=== PATIENT | female | born 1940 | race Caucasian/White ===

== ENCOUNTER 2016-08-27 08:00 | Outpatient (CLI) | payer MEDICARE, BC | END 2016-08-27 08:01 | disposition home or self-care (01) | DX: R53.83 Other fatigue (principal) ==

== ENCOUNTER 2016-09-25 07:51 | Day surgery (SDC) | payer MEDICARE, BC ==
[2016-09-25] MEDS ORDERED: PHENYLEPHRINE 2.5% OPHTH 2 ML DROPS ONE (07:57)
[2016-09-25] MEDS ORDERED: LACTATED RINGERS 500 ML IV ONE (08:05)
[2016-09-25] MEDS ORDERED: PROPARACAINE 0.5% OPHTH DROPS 15 ML OPTH ONE ×2 (08:25→09:02)
[2016-09-25] MEDS ORDERED: PHENYLEPHRINE 2.5% OPHTH 2 ML DROPS OPTH ONE (08:25)
[2016-09-25] MEDS ORDERED: KETOROLAC 0.45% OPHTH DROPS OPTH ONE (08:25)
[2016-09-25] MEDS ORDERED: CYCLOPENTOLATE 1% OPHTH DROPS 2 ML OPTH ONE ×2 (08:25→09:02)
[2016-09-25] MEDS ORDERED: LACTATED RINGERS 1,000 ML IV ONE ×2 (08:29)
[2016-09-25] MEDS ORDERED: BRIMONIDINE 0.2% OPHTH DROPS 5 ML OPTH ONE (09:01)
[2016-09-25] MEDS ORDERED: EPINEPHrine 1 MG/ML AMP IVP ONE (09:01)
[2016-09-25] MEDS ORDERED: CHONDR SULF/HYALURONATE SYRINGE IO ONE (09:02)
[2016-09-25] MEDS ORDERED: TIMOLOL 0.5% OPHTH DROPS OPTH ONE (09:02)
[2016-09-25] MEDS ORDERED: TRIAMCIN/MOXIFLOX/VANCO 1 ML VIAL IO ONE ×2 (09:02)
[2016-09-25] MEDS ORDERED: BSS/LIDOCAINE/EPINEPHRINE 1 ML SYRINGE IO ONE ×2 (09:02)
[2016-09-25] MEDS ORDERED: MIDAZOLAM 2 MG/2 ML VIAL IVP ONE (09:06)
== END 2016-09-25 07:52 | disposition home or self-care (01) ==
PROC: 08RK3JZ Replacement of Left Lens with Synthetic Substitute, Percutaneous Approach (ICD-10-PCS; principal; 2016-09-25 09:00)
DX: H25.812 Combined forms of age-related cataract, left eye (principal); I10 Essential (primary) hypertension; E66.9 Obesity, unspecified; Z68.41 Body mass index [BMI] 40.0-44.9, adult; M19.90 Unspecified osteoarthritis, unspecified site; K21.9 Gastro-esophageal reflux disease without esophagitis; Z82.49 Family history of ischemic heart disease and other diseases of the circulatory system; Z83.3 Family history of diabetes mellitus; Z98.41 Cataract extraction status, right eye
CPT/HCPCS: 66984; A9270; J7120; V2632

== ENCOUNTER 2017-09-12 13:18 | Outpatient (CLI) | payer MEDICARE, BC ==
[2017-09-12] MEDS ORDERED: ALBUTEROL NEB 2.5 MG/3 ML INH ONE (14:00)
== END 2017-09-12 13:19 | disposition home or self-care (01) ==
LOC: RT 13:18
PROVIDERS: ATTEND Family Medicine
DX: J44.9 Chronic obstructive pulmonary disease, unspecified (principal)
CPT/HCPCS: 94060; J7613

== ENCOUNTER 2018-04-03 17:39 | Outpatient (CLI) | payer MEDICARE, BC | END 2018-04-03 17:40 | disposition critical access hospital (66) | LOC: EMS 17:39 | PROVIDERS: ATTEND Surgery | DX: M54.9 Dorsalgia, unspecified (principal) | CPT/HCPCS: A0425; A0429 ==

== ENCOUNTER 2018-04-03 17:57 | Inpatient (IN) | payer MEDICARE, BC ==
[2018-04-03] MEDS ORDERED: SODIUM CHLORIDE 0.9% 1,000 ML IV ONE ×2 (18:09→19:07)
[2018-04-03] MEDS ORDERED: MORPHINE 2 MG/ML CARPUJECT IVP STA (18:09)
--- NOTE | 2018-04-03 18:11 | ED Physician Documentation ---
History of Present Illness - Stated complaint Stated Complaint: GLF - Chief complaint Chief Complaint: General - History obtained from History obtained from: Patient, EMS - History of Present Illness Timing: Today (77-year-old woman with history of hypertension and fibromyalgia. She slipped and fell early this morning, 1 AM hurting her hip. She was unable to get back up and some neighbors came over and helped her up this morning. She watched TV for couple of hours and then when she got back up her hip spasmed and she fell again and laid on the floor for another several hours before a neighbor came over to check on her and then called 911. She could not get up because of the hip and back pain. She has no other injuries. She is not anticoagulated. She says she has not urinated since 1 AM) Review of Systems Ten Systems: 10 systems reviewed and negative Constitutional: denies: Fever, Chills Cardiac: denies: Chest pain / pressure, Palpitations Respiratory: denies: Dyspnea, Cough GI: denies: Abdominal Pain, Nausea, Vomiting : denies: Dysuria, Frequency Musculoskeletal: denies: Neck pain PD PAST MEDICAL HISTORY - Past Medical History Cardiovascular: Hypertension, High cholesterol Respiratory: Sleep apnea Endocrine/Autoimmune: None GI: GERD : Frequency HEENT: Chronic vision loss Psych: None Musculoskeletal: Osteoarthritis, Fibromyalgia, Chronic back pain, Other Derm: Rosacea - Past Surgical History General: Cholecystectomy, Appendectomy, Colonoscopy /[employer]: Hysterectomy, Oophrectomy, Other HEENT: Cataracts Derm: Skin cancer surgery - Present Medications Home Medications: Ambulatory Orders Medication Instructions Recorded Confirmed Calcium Citrate/Vitamin D3 1 ea PO DAILY 04/27/14 09/25/16 [Calcium Citrate - Vit D Caplet] Cetirizine HCl [Zyrtec] 10 mg PO DAILY PRN 04/27/14 09/25/16 Cyclobenzaprine [Flexeril] 10 mg PO TID PRN 04/27/14 09/25/16 Gluc HCl/Csa/Collagen/Hyalur A 1 each PO BID 04/27/14 09/25/16 [Glucosamine Chondroitin Cap] Losartan [Cozaar] 100 mg ORAL DAILY 04/27/14 09/25/16 Multivitamin [Multi Vitamin Daily] 1 each PO DAILY 04/27/14 09/25/16 Naproxen Sodium [Aleve] 220 mg PO DAILY PRN 04/27/14 09/25/16 Omeprazole 20 mg PO DAILY 04/27/14 09/25/16 Psyllium Seed [Metamucil] 425 gm PO DAILY PRN 04/27/14 09/25/16 Simvastatin [Zocor] 40 mg PO DAILY 04/27/14 09/25/16 Spironolactone 25 mg PO BID 04/27/14 09/25/16 Vitamin E 1,000 unit PO DAILY 04/27/14 09/25/16 Zolpidem [Ambien] 10 mg PO HS 04/27/14 09/25/16 Aspirin [Aspir-Low] 81 mg PO DAILY 09/25/16 09/25/16 DULoxetine [Cymbalta] 30 mg PO DAILY 09/25/16 09/25/16 Pregabalin [Lyrica] 50 mg PO TID 09/25/16 09/25/16 Furosemide [Lasix] 20 mg PO DAILY 04/03/18 04/03/18 - Allergies Allergies/Adverse Reactions: Allergies Allergy/AdvReac Type Severity Reaction Status Date / Time No Known Drug Allergies Allergy Verified 04/03/18 18:58 PD ED PE NORMAL - Vitals Vital signs reviewed: Yes - General General: Alert and oriented X 3, No acute distress - HEENT HEENT: PERRL, EOMI - Neck Neck: Supple, no meningeal sign, No bony TTP - Cardiac Cardiac: RRR, No murmur - Respiratory Respiratory: No respiratory distress, Clear bilaterally - Abdomen Abdomen: Normal bowel sounds, Soft, Non tender - Back Back: No CVA TTP, No spinal TTP - Extremities Extremities: Other (Right leg is noted to be longer than the left, but she says that is her baseline. She does have severe lateral and posterior right hip pain with manipulation of the right leg.) - Neuro Neuro: Alert and oriented X 3, Normal speech - Psych Psych: Normal mood, Normal affect Results - Vitals Vitals: Vital Signs - 24 hr 04/03/18 17:59 Temperature 36.3 C L Heart Rate 66 Respiratory 20 Rate Blood Pressure 155/56 H O2 Saturation 100 Oxygen O2 Source Room air - Labs Labs: Laboratory Tests 04/03/18 04/03/18 04/03/18 18:17 18:17 18:17 WBC 12.7 H RBC 4.74 Hgb 14.5 Hct 42.8 MCV 90.4 MCH 30.6 MCHC 33.9 RDW 14.5 Plt Count 233 MPV 10.0 Neut # (Auto) 10.5 H Lymph # (Auto) 1.0 L [place] # (Auto) 1.1 H Eos # (Auto) 0.0 Baso # (Auto) 0.0 Absolute Nucleated RBC 0.02 Nucleated RBC % 0.1 PT 11.3 INR 1.0 Sodium 134 L Potassium 5.4 H Chloride 101 Carbon Dioxide 23 Anion Gap 10.0 BUN 36 H Creatinine 1.6 H Estimated GFR (MDRD) 31 L Glucose 126 H Lactic Acid Calcium 9.9 Total Bilirubin 1.0 AST 56 H ALT 33 Alkaline Phosphatase 82 Total Creatine Kinase 2523 H* Total Protein 7.8 Albumin 3.9 Globulin 3.9 Albumin/Globulin Ratio 1.0 Lipase 30 04/03/18 18:17 WBC RBC Hgb Hct MCV MCH MCHC RDW Plt Count MPV Neut # (Auto) Lymph # (Auto) [place] # (Auto) Eos # (Auto) Baso # (Auto) Absolute Nucleated RBC Nucleated RBC % PT INR Sodium Potassium Chloride Carbon Dioxide Anion Gap BUN Creatinine Estimated GFR (MDRD) Glucose Lactic Acid 0.9 Calcium Total Bilirubin AST ALT Alkaline Phosphatase Total Creatine Kinase Total Protein Albumin Globulin Albumin/Globulin Ratio Lipase PD MEDICAL DECISION MAKING - ED course ED course: 77-year-old woman with fibromyalgia, hypertension, morbid obesity presents after 2 falls today. Her hip is injured but it does not seem obviously broken on exam and the x-ray is normal. She does have evidence of rhabdomyolysis and already mild acute renal insufficiency, her baseline creatinine is about 1. She is placed on IV fluids, initially a bolus of a liter and then twice maintenance and will be admitted for further evaluation and treatment. Spoke with Dr. Jolly for admission at 7:22 PM. - Sepsis Event Vital Signs: Vital Signs - 24 hr 04/03/18 17:59 Temperature 36.3 C L Heart Rate 66 Respiratory 20 Rate Blood Pressure 155/56 H O2 Saturation 100 Oxygen O2 Source Room air Departure - Departure Disposition: 66 [facility] DC/Xfer Clinical Impression: Rhabdomyolysis Qualifiers: Rhabdomyolysis type: non-traumatic Qualified Code(s): M62.82 - Rhabdomyolysis Contusion, hip Qualifiers: Encounter type: initial encounter Laterality: right Qualified Code(s): S70.01XA - Contusion of right hip, initial encounter Discharge Date/Time: 04/03/18 20:01
[2018-04-03 18:27] LABS: BASOPHILS % (AUTO) 0.3 %; EOSINOPHILS % (AUTO) 0.3 %; HGB - HEMOGLOBIN 14.5 g/dL (12.0-16.0); LYMPHOCYTES % (AUTO) 7.6 %; MEAN CORPUSCULAR HEMOGLOBIN 30.6 pg (27.0-31.0); MEAN CORPUSCULAR HGB CONC 33.9 g/dL (32.0-36.0); MEAN CORPUSCULAR VOLUME 90.4 fL (81.0-99.0); MONOCYTES # (AUTO) 1.1 10^3/uL (0.0-1.0); MONOCYTES % (AUTO) 8.6 %; NEUTROPHILS # (AUTO) 10.5 10^3/uL (1.5-6.6); NEUTROPHILS % (AUTO) 83.2 %; PLT - PLATELET COUNT 233 10^3/uL (130-450); RED BLOOD COUNT 4.74 10^6/uL (4.20-5.40); RED CELL DISTRIBUTION WIDTH 14.5 % (12.0-15.0); WHITE BLOOD COUNT 12.7 x10^3/uL (4.8-10.8)
[2018-04-03 18:33] LABS: PT - PROTHROMBIN TIME 11.3 secs (9.9-12.6)
[2018-04-03 19:02] LABS: ALBUMIN 3.9 g/dL (3.2-5.5); CALCIUM 9.9 mg/dL (8.5-10.3); CREATININE 1.6 mg/dL (0.4-1.0); TOTAL PROTEIN 7.8 g/dL (6.7-8.2)
--- NOTE | 2018-04-03 19:12 | XRAY Report ---
Reason: hip pain fall Procedure Date: 04/03/2018 Accession Number: [id number] / [id number] Procedure: XR - Hip w/Pelvis 2-3V RT CPT Code: FULL RESULT: EXAM: RIGHT HIP AND PELVIS RADIOGRAPHY EXAM DATE: 04/03/2018 06:52 PM. HISTORY: Hip pain fall. COMPARISONS: None. TECHNIQUE: 1 view of the pelvis and 1 view of the hip. FINDINGS: Mildly limited exam due to positioning. No acute fracture identified. No dislocation. Severe bilateral hip joint space narrowing with osteophyte formation. Sacroiliac joints are grossly unremarkable. IMPRESSION: No visualized fracture. Mildly limited exam. Severe hip joint osteoarthrosis. RADIA
[2018-04-03] MEDS ORDERED: SODIUM CHLORIDE FLUSH 0.9% 10 ML SYRINGE IVP PRN (19:32)
[2018-04-03 19:44] LABS: BILIRUBIN,URINE NEGATIVE (NEGATIVE); GLUCOSE, URINE (UA) NEGATIVE (NEGATIVE); KETONES,URINE (UA) TRACE mg/dL (NEGATIVE); LEUKOCYTE ESTERASE, URINE NEGATIVE (NEGATIVE); NITRITE,URINE NEGATIVE (NEGATIVE); OCCULT BLOOD,URINE NEGATIVE (NEGATIVE); PH,URINE 5.5 PH (5.0-7.5); PROTEIN,URINE NEGATIVE (NEGATIVE); UROBILINOGEN,URINE 0.2 (NORMAL) E.U./dL (NORMAL)
[2018-04-03 19:49] LABS: CLARITY,URINE CLEAR (CLEAR)
--- NOTE | 2018-04-03 22:30 | HISTORY & PHYSICAL EXAMINATION ---
DATE OF SERVICE: 04/03/2018 Physician: Mikala Jolly MD HISTORY OF PRESENT ILLNESS: This is a 77-year-old white female who has a history of obesity, hypertension, untreated sleep apnea, fibromyalgia on many pain medications, and elevated cholesterol history. The patient fell in her house at 1:00 in the morning while she was walking from bedroom to bathroom and was unable to get up for about 10 hours. She lay on her right hip. The neighbor who checks on her routinely, as well as feeds her dinner every day, found her 10 hours later and helped her get up to the couch, where she was able to watch TV for several hours. She got up again, and while walking using a cane she had "hip spasm." She fell backward this time and lay on the floor for another several hours before the neighbor again checked on her and this time called 911. The patient complained of pain in the right hip, which was x-rayed and has no areas of fracture. She does not have pain in the back of the head where she states she fell, but no imaging of the head and brain was done in the ER. The patient states she has not eaten anything all day and also has not urinated since 1 a.m. PAST MEDICAL HISTORY 1. Hypertension. 2. Hypercholesterolemia. 3. Sleep apnea, untreated. 4. GERD. 5. Osteoarthritis. 6. Fibromyalgia. 7. 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 ALLERGIES: NONE. MEDICATIONS 1. Lasix 20 mg daily. 2. Spironolactone 25 mg b.i.d. 3. Ambien 10 mg at bedtime. 4. Vitamin E 1000 units daily. 5. Zocor 40 mg daily. 6. Metamucil p.r.n. 7. Lyrica 50 mg t.i.d. 8. Naprosyn 220 mg daily p.r.n. pain. 9. Omeprazole 20 mg daily. 10. Multivitamin daily. 11. Cozaar 100 mg daily. 12. Glucosamine with chondroitin tablets b.i.d. 13. Cymbalta 30 mg daily. 14. Flexeril 10 mg t.i.d. p.r.n. pain. 15. Zyrtec 10 mg daily p.r.n. 16. Vitamins with calcium and vitamin D. 17. Baby aspirin daily. FAMILY HISTORY: Positive for diabetes in her brother, otherwise no inherited diseases. PAST SURGICAL HISTORY: Besides the right TMJ surgery, she also had breast cancer requiring only lymph node resection. SOCIAL HISTORY: The patient is a nonsmoker who never smoked, drinks no alcohol. She does use cannabis for pain control. She is able to drive a car. She uses a cane or quad walker to ambulate in the house and uses a scooter during shopping. She has a neighbor who makes her dinner every day and also helps clean her dogs and the house 3 times a week. REVIEW OF SYSTEMS: A comprehensive review of systems was performed, and the pertinent positives are listed. The rest are negative. PHYSICAL EXAMINATION GENERAL: Morbidly obese white female. Her lower lip is trembling. She is in no distress. VITAL SIGNS: Blood pressure 155/56, afebrile, respiratory rate 18, room air saturation 99%, heart rate 75 in sinus rhythm. HEENT: Reveals right upper eyelid lag and a tremor of the lower jaw. Oral mucosa is dry. NECK: Without JVD but is obese. CHEST: Clear at the anterior bases. She has large, pendulous breasts. HEART: Sounds are very distant. No murmur is heard. ABDOMEN: Distended with positive fluid wave. No organomegaly. Nontender. Normal bowel sounds. EXTREMITIES: Show 4+ edema to the hips. There is no ecchymosis at the right hip area. NEUROLOGIC: Intact except for that jaw tremor. LABORATORY DATA: Sodium 134, potassium 5.4, BUN 36, creatinine 1.6 (her baseline creatinine is 1.0). Lactic acid normal at 0.9. AST 56, ALT 33. CK 2523. Normal lipase. Normal INR. Normal urinalysis. White blood count 12.7, otherwise a normal CBC. DIAGNOSTIC STUDIES: Hip and pelvis x-rays were done that showed bilateral hip osteoarthritis and no fractures. There was no chest x-ray done. There was no head imaging done. There was no EKG done. ASSESSMENT/DIAGNOSES 1. Rhabdomyolysis. 2. Fall at home. 3. Acute kidney injury. 4. Morbid obesity. 5. Fibromyalgia and multiple pain medication use. 6. Hypertension. 7. Sleep apnea, which is untreated. 8. Suspect cor pulmonale secondary to untreated sleep apnea and morbid obesity. PLAN: Admit the patient. Begin IV hydration for the acute kidney injury and rhabdomyolysis and follow her potassium, renal function and CK daily. Continue with her pain medications. Hold the Lasix and spironolactone currently because of need for intravascular fluid treatment. Obtain an Echo to evaluate LV and especially RV contractility and obtain an EKG. X-ray the head and skull. Continue with narcotics as needed, especially for the hip pain and her other long-term pain medication use p.r.n. CODE STATUS: FULL CODE. DEEP VENOUS THROMBOSIS PROPHYLAXIS: PAULINE stockings and SCDs. ATTESTATION: The patient is expected to be discharged or transferred to another facility within 96 hours: Yes. TD: 04/03/2018 21:35 RONAN
[2018-04-03] MEDS: ATORVASTATIN 10 MG TABLET PO SCH (22:38)
[2018-04-03] MEDS: oxyCODONE 5 MG TABLET PO PRN (23:49)
--- NOTE | 2018-04-04 00:41 | CT Report ---
Reason: Fall on back of head Procedure Date: 04/03/2018 Accession Number: [id number] / [id number] Procedure: CT - Head W/O CPT Code: FULL RESULT: EXAM: CT HEAD EXAM DATE: 04/03/2018 10:26 PM. CLINICAL HISTORY: Fall on back of head. COMPARISON: None. TECHNIQUE: Multiaxial CT images were obtained from the foramen magnum to the vertex. Reformats: Sagittal and coronal. IV contrast: None. In accordance with CT protocol optimization, one or more of the following dose reduction techniques were utilized for this exam: automated exposure control, adjustment of mA and/or KV based on patient size, or use of iterative reconstructive technique. FINDINGS: Parenchyma: No intraparenchymal hemorrhage. No evidence of mass, midline shift, or CT findings of infarction. Valentin-white differentiation is distinct. Extraaxial Spaces: Normal for age. No subdural or epidural collections identified. Ventricles: Normal in size and position. Sinuses and Orbits: Imaged paranasal sinuses, orbits, and mastoids show no significant abnormality. Bones: No evidence of fracture or calvarial defect. Hyperostosis noted. Other: None. IMPRESSION: Negative head CT. RADIA
[2018-04-04] MEDS: SODIUM CHLORIDE 0.9% 1,000 ML IV SCH ×4 (02:07→17:23)
[2018-04-04] MEDS: SODIUM CHLORIDE FLUSH 0.9% 10 ML SYRINGE IVP SCH ×3 (02:08→17:24)
[2018-04-04] MEDS: oxyCODONE 5 MG TABLET PO PRN ×4 (05:05→23:43)
[2018-04-04 06:27] LABS: BASOPHILS % (AUTO) 0.3 %; EOSINOPHILS # (AUTO) 0.1 10^3/uL (0.0-0.7); EOSINOPHILS % (AUTO) 1.2 %; HGB - HEMOGLOBIN 12.8 g/dL (12.0-16.0); LYMPHOCYTES # (AUTO) 1.4 10^3/uL (1.5-3.5); LYMPHOCYTES % (AUTO) 14.4 %; MEAN CORPUSCULAR HEMOGLOBIN 30.3 pg (27.0-31.0); MEAN CORPUSCULAR HGB CONC 33.2 g/dL (32.0-36.0); MEAN CORPUSCULAR VOLUME 91.2 fL (81.0-99.0); MEAN PLATELET VOLUME 9.9 fL (7.9-10.8); MONOCYTES # (AUTO) 1.2 10^3/uL (0.0-1.0); MONOCYTES % (AUTO) 12.9 %; NEUTROPHILS # (AUTO) 6.9 10^3/uL (1.5-6.6); NEUTROPHILS % (AUTO) 71.2 %; PLT - PLATELET COUNT 203 10^3/uL (130-450); RED BLOOD COUNT 4.23 10^6/uL (4.20-5.40); RED CELL DISTRIBUTION WIDTH 14.5 % (12.0-15.0); WHITE BLOOD COUNT 9.7 x10^3/uL (4.8-10.8)
[2018-04-04 06:49] LABS: ALBUMIN 3.4 g/dL (3.2-5.5); BILIRUBIN,DIRECT 0.1 mg/dL (0.1-0.5); BILIRUBIN,TOTAL 1.2 mg/dL (0.2-1.0); CALCIUM 9.1 mg/dL (8.5-10.3); CREATININE 1.3 mg/dL (0.4-1.0); MAGNESIUM 1.9 mg/dL (1.7-2.8); TOTAL PROTEIN 6.2 g/dL (6.7-8.2)
[2018-04-04] MEDS: POLYETHYLENE GLYCOL 3350 17 GM PACKET PO SCH (08:31)
[2018-04-04] MEDS: DULoxetine 30 MG CAPSULE PO SCH (08:32)
[2018-04-04] MEDS: FAMOTIDINE 20 MG TABLET PO SCH (08:32)
[2018-04-04] MEDS: ASPIRIN EC 81 MG TABLET PO SCH (08:32)
[2018-04-04] MEDS ORDERED: MIN OIL/DIMETHICON/COCONUT OIL 92 GM TUBE TOP PRN (10:31)
[2018-04-04] MEDS ORDERED: ZINC OXIDE 20% OINT 28.35 GM TUBE TOP PRN (10:31)
--- NOTE | 2018-04-04 10:37 | PROVIDER PROGRESS NOTE ---
Assessment/Plan - Problem List (1) Rhabdomyolysis Qualifiers: Rhabdomyolysis type: non-traumatic Qualified Code(s): M62.82 - Rhabdomyolysis Assessment/Plan: CK lópez but creat improved. Will decrease iv rate. Monitor CK daily. (2) Fall at home Assessment/Plan: No new complaints of pain on current prn meds. PT to evaluate and start working wit patient today. (3) SARIKA (acute kidney injury) Assessment/Plan: Improved. Due to c/o slight cough, will decrease iv rate. (4) Abnormal EKG Assessment/Plan: Echo showed normal LV and RV function. Moderate pulmonary HTN present. (5) Anasarca Assessment/Plan: Moderate pulmonary HTN by Echo is likely due to untreated sleep apnea. Will decrease iv rate to prevent alot of fluid retention. Her diuretic will be restarted when CK normalizes. - Current Meds Current Meds: Current Medications Generic Name Dose Route Start Last Admin Trade Name Freq PRN Reason Stop Dose Admin Aspirin 81 mg 04/04/18 09:00 04/04/18 08:32 Ecotrin PO 81 mg DAILY TAI Administration Atorvastatin Calcium 20 mg 04/03/18 21:00 04/03/18 22:38 Lipitor PO 20 mg QPM TAI Administration Duloxetine HCl 30 mg 04/04/18 09:00 04/04/18 08:32 Cymbalta PO 30 mg DAILY TAI Administration Famotidine 20 mg 04/04/18 09:00 04/04/18 08:32 Pepcid PO 20 mg DAILY TAI Administration Oxycodone HCl 10 mg 04/03/18 19:32 04/04/18 05:05 Roxicodone PO 10 mg Q4HR PRN Administration Pain 8 to 10 Polyethylene Glycol 17 gm 04/04/18 09:00 04/04/18 08:31 Miralax PO 17 gm DAILY TAI Administration Sodium Chloride 10 ml 04/04/18 01:00 04/04/18 08:32 Normal Saline Flush 0.9% IVP Not Given 0100,0900,1700 TAI - Lab Result Fish Bone Diagrams: 04/04/18 06:05 04/04/18 06:05 - Additional Planning My Orders: My Active Orders 04/03/18 20:39 Echo Transthoracic w/Definity [ECHO] Routine 04/03/18 21:00 Atorvastatin [Lipitor] 20 mg PO QPM 04/03/18 22:23 Purewick [Female External Catheter Care] [RC] QSHIFT 04/04/18 09:00 Aspirin EC [Ecotrin] 81 mg PO DAILY DULoxetine [Cymbalta] 30 mg PO DAILY 04/04/18 10:31 Min Oil/Dimeth/Coconut Oil Crm [Cavilon] 1 applic TOP PRN PRN Zinc Oxide 20% Oint [Zinc Oxide] 1 applic TOP PRN PRN 04/04/18 10:33 Sodium Chloride 0.9% [Normal Saline 0.9%] 1,000 ml IV 100 mls/hr 04/05/18 05:00 BMP - BASIC METABOLIC PANEL [CHEM] DAILYLAB CBC - COMP BLD CT W/AUTO DIFF [HEME] DAILYLAB LIVER PANEL [CHEM] DAILYLAB 04/05/18 09:00 CK- CREATINE KINASE [CHEM] DAILY 04/06/18 05:00 BMP - BASIC METABOLIC PANEL [CHEM] DAILYLAB CBC - COMP BLD CT W/AUTO DIFF [HEME] DAILYLAB 04/06/18 09:00 CK- CREATINE KINASE [CHEM] DAILY Subjective - Subjective Patient Reports: Feeling Better, Resting Comfortably, Other (Sat in chair today. Has a slight cough.) Objective Vital Signs: Vital Signs - 24 hr 04/03/18 04/03/18 04/03/18 19:37 20:36 23:55 Temperature 35.8 C L 36.7 C Heart Rate 75 Heart Rate [ 73 77 Brachial] Respiratory 18 16 18 Rate Blood Pressure 159/65 H Blood Pressure 151/63 H 108/51 L [Left Brachial artery] O2 Saturation 99 100 100 04/04/18 08:00 Temperature 36.6 C Heart Rate Heart Rate [ 76 Brachial] Respiratory 18 Rate Blood Pressure Blood Pressure 139/49 H [Left Brachial artery] O2 Saturation 94 Oxygen O2 Source Room air I&O (Last 24 Hrs): Intake and Output Totals x24h 04/02/18 04/03/18 04/04/18 23:59 23:59 23:59 Intake Total 0858.240 9009.333 Output Total 1850 Balance 1591.667 -61.667 General: Alert, Oriented x3 HEENT: Mucous membr. moist/pink Neck: Supple Neuro: Non Focal, Other (Tremor of lower jaw.) Cardiovascular: Other (Distant heart sounds) Respiratory: No respiratory distress, Other (Distant breath sounds.) Abdomen: Other (Distended.) Extremities: Other (4+ edema to hips.) - Results Results: Laboratory Results WBC 9.7 x10^3/uL (4.8-10.8) 04/04/18 06:05 RBC 4.23 10^6/uL (4.20-5.40) 04/04/18 06:05 Hgb 12.8 g/dL (12.0-16.0) 04/04/18 06:05 Hct 38.5 % (37.0-47.0) 04/04/18 06:05 MCV 91.2 fL (81.0-99.0) 04/04/18 06:05 MCH 30.3 pg (27.0-31.0) 04/04/18 06:05 MCHC 33.2 g/dL (32.0-36.0) 04/04/18 06:05 RDW 14.5 % (12.0-15.0) 04/04/18 06:05 Plt Count 203 10^3/uL (130-450) 04/04/18 06:05 MPV 9.9 fL (7.9-10.8) 04/04/18 06:05 Neut # (Auto) 6.9 10^3/uL (1.5-6.6) H 04/04/18 06:05 Lymph # (Auto) 1.4 10^3/uL (1.5-3.5) L 04/04/18 06:05 [place] # (Auto) 1.2 10^3/uL (0.0-1.0) H 04/04/18 06:05 Eos # (Auto) 0.1 10^3/uL (0.0-0.7) 04/04/18 06:05 Baso # (Auto) 0.0 10^3/uL (0.0-0.1) 04/04/18 06:05 Absolute Nucleated RBC 0.00 x10^3/uL 04/04/18 06:05 Nucleated RBC % 0.0 /100WBC 04/04/18 06:05 PT 11.3 secs (9.9-12.6) 04/03/18 18:17 INR 1.0 (0.8-1.2) 04/03/18 18:17 Sodium 134 mmol/L (135-145) L 04/04/18 06:05 Potassium 5.0 mmol/L (3.5-5.0) 04/04/18 06:05 Chloride 105 mmol/L (101-111) 04/04/18 06:05 Carbon Dioxide 22 mmol/L (21-32) 04/04/18 06:05 Anion Gap 7.0 (6-13) 04/04/18 06:05 BUN 28 mg/dL (6-20) H 04/04/18 06:05 Creatinine 1.3 mg/dL (0.4-1.0) H 04/04/18 06:05 Estimated GFR (MDRD) 40 (>89) L 04/04/18 06:05 Glucose 108 mg/dL (70-100) H 04/04/18 06:05 Lactic Acid 0.9 mmol/L (0.5-2.2) 04/03/18 18:17 Calcium 9.1 mg/dL (8.5-10.3) 04/04/18 06:05 Magnesium 1.9 mg/dL (1.7-2.8) 04/04/18 06:05 Total Bilirubin 1.2 mg/dL (0.2-1.0) H 04/04/18 06:05 Direct Bilirubin 0.1 mg/dL (0.1-0.5) 04/04/18 06:05 AST 93 IU/L (10-42) H 04/04/18 06:05 ALT 48 IU/L (10-60) 04/04/18 06:05 Alkaline Phosphatase 64 IU/L (42-121) 04/04/18 06:05 Total Creatine Kinase 3335 IU/L (22-269) H* 04/04/18 09:03 Total Protein 6.2 g/dL (6.7-8.2) L 04/04/18 06:05 Albumin 3.4 g/dL (3.2-5.5) 04/04/18 06:05 Globulin 2.8 g/dL (2.1-4.2) 04/04/18 06:05 Albumin/Globulin Ratio 1.0 (1.0-2.2) 04/03/18 18:17 Lipase 30 U/L (22-51) 04/03/18 18:17 Urine Color YELLOW 04/03/18 19:32 Urine Clarity CLEAR (CLEAR) 04/03/18 19:32 Urine pH 5.5 PH (5.0-7.5) 04/03/18 19:32 Ur Specific [place] 1.015 (1.002-1.030) 04/03/18 19:32 Urine Protein NEGATIVE mg/dL (NEGATIVE) 04/03/18 19:32 Urine Glucose (UA) NEGATIVE mg/dL (NEGATIVE) 04/03/18 19:32 Urine Ketones TRACE mg/dL (NEGATIVE) 04/03/18 19:32 Urine Occult Blood NEGATIVE (NEGATIVE) 04/03/18 19:32 Urine Nitrite NEGATIVE (NEGATIVE) 04/03/18 19:32 Urine Bilirubin NEGATIVE (NEGATIVE) 04/03/18 19:32 Urine Urobilinogen 0.2 (NORMAL) E.U./dL (NORMAL) 04/03/18 19:32 Ur Leukocyte Esterase NEGATIVE (NEGATIVE) 04/03/18 19:32 Ur Microscopic Review NOT INDICATED 04/03/18 19:32 Urine Culture Comments NOT INDICATED 04/03/18 19:32 - Procedures Procedures: Procedures CATARAC PHACOEMULS/ASPIR (04/27/14) INSERT LENS AT CATAR EXT (04/27/14) REPLACEMENT OF LEFT LENS WITH SYNTH SUB, PERC APPROACH (09/25/16)
[2018-04-04] MEDS: ATORVASTATIN 10 MG TABLET PO SCH (20:46)
[2018-04-04] MEDS: NYSTATIN POWDER 15 GM TOP SCH ×2 (20:46→20:47)
[2018-04-05] MEDS: SODIUM CHLORIDE FLUSH 0.9% 10 ML SYRINGE IVP SCH ×3 (03:41→16:19)
[2018-04-05] MEDS: SODIUM CHLORIDE 0.9% 1,000 ML IV SCH (05:27)
[2018-04-05] MEDS: oxyCODONE 5 MG TABLET PO PRN (05:55)
[2018-04-05] MEDS: ONDANSETRON 4 MG/2 ML VIAL IVP PRN ×2 (06:25→13:40)
[2018-04-05 06:34] LABS: BASOPHILS % (AUTO) 0.2 %; EOSINOPHILS # (AUTO) 0.1 10^3/uL (0.0-0.7); EOSINOPHILS % (AUTO) 0.5 %; HGB - HEMOGLOBIN 13.5 g/dL (12.0-16.0); LYMPHOCYTES # (AUTO) 0.7 10^3/uL (1.5-3.5); LYMPHOCYTES % (AUTO) 7.2 %; MEAN CORPUSCULAR HEMOGLOBIN 30.8 pg (27.0-31.0); MEAN CORPUSCULAR HGB CONC 33.4 g/dL (32.0-36.0); MEAN PLATELET VOLUME 10.2 fL (7.9-10.8); MONOCYTES # (AUTO) 0.7 10^3/uL (0.0-1.0); MONOCYTES % (AUTO) 6.9 %; NEUTROPHILS # (AUTO) 8.4 10^3/uL (1.5-6.6); NEUTROPHILS % (AUTO) 85.2 %; PLT - PLATELET COUNT 192 10^3/uL (130-450); RED CELL DISTRIBUTION WIDTH 14.4 % (12.0-15.0); WHITE BLOOD COUNT 9.8 x10^3/uL (4.8-10.8)
[2018-04-05 06:49] LABS: ALBUMIN 3.2 g/dL (3.2-5.5); BILIRUBIN,DIRECT 0.1 mg/dL (0.1-0.5); BILIRUBIN,TOTAL 0.5 mg/dL (0.2-1.0); CALCIUM 9.3 mg/dL (8.5-10.3); CREATININE 1.1 mg/dL (0.4-1.0); TOTAL PROTEIN 6.6 g/dL (6.7-8.2)
[2018-04-05] MEDS: DOCUSATE SODIUM 250 MG CAPSULE PO SCH (08:53)
[2018-04-05] MEDS: DULoxetine 30 MG CAPSULE PO SCH (08:53)
[2018-04-05] MEDS: ASPIRIN EC 81 MG TABLET PO SCH (08:53)
[2018-04-05] MEDS: SENNA 8.6 MG TABLET PO SCH (08:53)
[2018-04-05] MEDS: FAMOTIDINE 20 MG TABLET PO SCH (08:53)
[2018-04-05] MEDS: NYSTATIN POWDER 15 GM TOP SCH ×2 (08:55→21:45)
[2018-04-05] MEDS: POLYETHYLENE GLYCOL 3350 17 GM PACKET PO SCH (08:55)
--- NOTE | 2018-04-05 15:50 | PROVIDER PROGRESS NOTE ---
Assessment/Plan - Problem List (1) Rhabdomyolysis Qualifiers: Rhabdomyolysis type: non-traumatic Qualified Code(s): M62.82 - Rhabdomyolysis Assessment/Plan: Imptoved CK to 1000's. Improved creat to 1.1 Will decrease iv fluid rate even further due to anasarca. (2) Fall at home Assessment/Plan: Pain in the R hip is controlled. (3) SARIKA (acute kidney injury) Assessment/Plan: Improving labs daily. iv rate to be decreased further today. Monitor BMP daily. (4) Anasarca Assessment/Plan: Pt reports compliance with her Spironolactone and Lasix at home. Will decrease iv fluid input. Possibly in a day, her Lasix and Spironolactone will be resumed, when renal function normalizes. She has untreated sleep apnea, which may be adding to the fluid retention from R heart failure. (5) Weakness Assessment/Plan: The patient is deconditioned. A picture of her daily activity (and diet) have emerged, after I met with her niece today, who is her closest next of kin. The patient is nearly all day in her recliner, except to use the toilet. She sleeps in the recliner. The neighbor brings her meals and hands them to her in her recliner, where she eats. A cleaning person picks up Franz hamburger wrappers that the patient throws under the recliner. She does not walk her 2 dogs, they are either let out in a fenced yard or relieve themselves in the house. Continue PT while here. She needs assessment for DCh to a safe environment. The information was shared with our [employer] Access[employer] Estimator, who will meet with the nieceJamia toady. - Current Meds Current Meds: Current Medications Generic Name Dose Route Start Last Admin Trade Name Freq PRN Reason Stop Dose Admin Aspirin 81 mg 04/04/18 09:00 04/05/18 08:53 Ecotrin PO 81 mg DAILY TAI Administration Atorvastatin Calcium 20 mg 04/03/18 21:00 04/04/18 20:46 Lipitor PO 20 mg QPM TAI Administration Docusate Sodium 250 - 500 mg 04/05/18 09:00 04/05/18 08:53 Colace 250mg Capsule PO 250 mg DAILY TAI Administration Duloxetine HCl 30 mg 04/04/18 09:00 04/05/18 08:53 Cymbalta PO 30 mg DAILY TAI Administration Famotidine 20 mg 04/04/18 09:00 04/05/18 08:53 Pepcid PO 20 mg DAILY TAI Administration Sodium Chloride 1,000 mls @ 100 mls/hr 04/04/18 10:33 04/05/18 06:59 Normal Saline 0.9% IV 100 mls/hr .Q10H TAI Infusion Nystatin 1 applic 04/04/18 20:00 04/05/18 08:55 Nystop TOP 1 applic BID TAI Administration Ondansetron HCl 4 mg 04/03/18 19:32 04/05/18 13:40 Zofran Inj IVP 4 mg Q6HR PRN Administration Nausea / Vomiting Oxycodone HCl 10 mg 04/03/18 19:32 04/05/18 05:55 Roxicodone PO 10 mg Q4HR PRN Administration Pain 8 to 10 Polyethylene Glycol 17 gm 04/04/18 09:00 04/05/18 08:55 Miralax PO 17 gm DAILY TAI Administration Senna 8.6 - 17.2 mg 04/05/18 09:00 04/05/18 08:53 Senokot PO 8.6 mg DAILY TAI Administration Sodium Chloride 10 ml 04/04/18 01:00 04/05/18 08:55 Normal Saline Flush 0.9% IVP 10 ml 0100,0900,1700 TAI Administration - Lab Result Fish Bone Diagrams: 04/05/18 05:45 04/05/18 05:45 - Additional Planning My Orders: My Active Orders 04/04/18 20:00 Nystatin [Nystop] 1 applic TOP BID 04/04/18 20:39 Echo Transthoracic w/Definity [ECHO] Routine 04/05/18 09:00 Docusate Sodium 250Mg Capsule [Colace 250Mg Capsule] 250 - 500 mg PO DAILY Senna [Senokot] 8.6 - 17.2 mg PO DAILY 04/06/18 05:00 BMP - BASIC METABOLIC PANEL [CHEM] DAILYLAB CBC - COMP BLD CT W/AUTO DIFF [HEME] DAILYLAB 04/06/18 09:00 CK- CREATINE KINASE [CHEM] DAILY Subjective - Subjective Patient Reports: Feeling Better, Resting Comfortably Nursing Reports: Other (Pt walked with PT in room with walker today.) Objective Vital Signs: Vital Signs - 24 hr 04/04/18 04/04/18 04/05/18 16:00 23:45 08:00 Temperature 36.6 C 36.3 C L 36.8 C Heart Rate [ 73 69 75 Brachial] Respiratory 20 18 18 Rate Blood Pressure 127/54 L [Left Brachial artery] Blood Pressure 134/55 H 133/60 H [Left Radial artery] O2 Saturation 97 96 96 Oxygen O2 Source [With Activity] Room air O2 Source Room air I&O (Last 24 Hrs): Intake and Output Totals x24h 04/03/18 04/04/18 04/05/18 23:59 23:59 23:59 Intake Total 3295.937 9580.333 1703.333 Output Total 3250 1400 Balance 7460.415 7819.333 303.333 General: Alert, Oriented x3 HEENT: Mucous membr. moist/pink Neck: Supple Neuro: Non Focal Cardiovascular: Other (distant heart sounds) Respiratory: Other (diminished breath sounds) Abdomen: Other (distended with fluid wave.) Rectal: Other (4+ edema to hips, less pitting though) - Results Results: Laboratory Results WBC 9.8 x10^3/uL (4.8-10.8) 04/05/18 05:45 RBC 4.40 10^6/uL (4.20-5.40) 04/05/18 05:45 Hgb 13.5 g/dL (12.0-16.0) 04/05/18 05:45 Hct 40.5 % (37.0-47.0) 04/05/18 05:45 MCV 92.0 fL (81.0-99.0) 04/05/18 05:45 MCH 30.8 pg (27.0-31.0) 04/05/18 05:45 MCHC 33.4 g/dL (32.0-36.0) 04/05/18 05:45 RDW 14.4 % (12.0-15.0) 04/05/18 05:45 Plt Count 192 10^3/uL (130-450) 04/05/18 05:45 MPV 10.2 fL (7.9-10.8) 04/05/18 05:45 Neut # (Auto) 8.4 10^3/uL (1.5-6.6) H 04/05/18 05:45 Lymph # (Auto) 0.7 10^3/uL (1.5-3.5) L 04/05/18 05:45 [place] # (Auto) 0.7 10^3/uL (0.0-1.0) 04/05/18 05:45 Eos # (Auto) 0.1 10^3/uL (0.0-0.7) 04/05/18 05:45 Baso # (Auto) 0.0 10^3/uL (0.0-0.1) 04/05/18 05:45 Absolute Nucleated RBC 0.00 x10^3/uL 04/05/18 05:45 Nucleated RBC % 0.0 /100WBC 04/05/18 05:45 PT 11.3 secs (9.9-12.6) 04/03/18 18:17 INR 1.0 (0.8-1.2) 04/03/18 18:17 Sodium 133 mmol/L (135-145) L 04/05/18 05:45 Potassium 4.3 mmol/L (3.5-5.0) 04/05/18 05:45 Chloride 104 mmol/L (101-111) 04/05/18 05:45 Carbon Dioxide 22 mmol/L (21-32) 04/05/18 05:45 Anion Gap 7.0 (6-13) 04/05/18 05:45 BUN 19 mg/dL (6-20) 04/05/18 05:45 Creatinine 1.1 mg/dL (0.4-1.0) H 04/05/18 05:45 Estimated GFR (MDRD) 48 (>89) L 04/05/18 05:45 Glucose 137 mg/dL (70-100) H 04/05/18 05:45 Lactic Acid 0.9 mmol/L (0.5-2.2) 04/03/18 18:17 Calcium 9.3 mg/dL (8.5-10.3) 04/05/18 05:45 Magnesium 1.9 mg/dL (1.7-2.8) 04/04/18 06:05 Total Bilirubin 0.5 mg/dL (0.2-1.0) 04/05/18 05:45 Direct Bilirubin 0.1 mg/dL (0.1-0.5) 04/05/18 05:45 AST 72 IU/L (10-42) H 04/05/18 05:45 ALT 51 IU/L (10-60) 04/05/18 05:45 Alkaline Phosphatase 73 IU/L (42-121) 04/05/18 05:45 Total Creatine Kinase 1500 IU/L (22-269) H* 04/05/18 05:45 Total Protein 6.6 g/dL (6.7-8.2) L 04/05/18 05:45 Albumin 3.2 g/dL (3.2-5.5) 04/05/18 05:45 Globulin 3.4 g/dL (2.1-4.2) 04/05/18 05:45 Albumin/Globulin Ratio 1.0 (1.0-2.2) 04/03/18 18:17 Lipase 30 U/L (22-51) 04/03/18 18:17 Urine Color YELLOW 04/03/18 19:32 Urine Clarity CLEAR (CLEAR) 04/03/18 19:32 Urine pH 5.5 PH (5.0-7.5) 04/03/18 19:32 Ur Specific [place] 1.015 (1.002-1.030) 04/03/18 19:32 Urine Protein NEGATIVE mg/dL (NEGATIVE) 04/03/18 19:32 Urine Glucose (UA) NEGATIVE mg/dL (NEGATIVE) 04/03/18 19:32 Urine Ketones TRACE mg/dL (NEGATIVE) 04/03/18 19:32 Urine Occult Blood NEGATIVE (NEGATIVE) 04/03/18 19:32 Urine Nitrite NEGATIVE (NEGATIVE) 04/03/18 19:32 Urine Bilirubin NEGATIVE (NEGATIVE) 04/03/18 19:32 Urine Urobilinogen 0.2 (NORMAL) E.U./dL (NORMAL) 04/03/18 19:32 Ur Leukocyte Esterase NEGATIVE (NEGATIVE) 04/03/18 19:32 Ur Microscopic Review NOT INDICATED 04/03/18 19:32 Urine Culture Comments NOT INDICATED 04/03/18 19:32 - Procedures Procedures: Procedures CATARAC PHACOEMULS/ASPIR (04/27/14) INSERT LENS AT CATAR EXT (04/27/14) REPLACEMENT OF LEFT LENS WITH SYNTH SUB, PERC APPROACH (09/25/16)
[2018-04-05] MEDS ORDERED: CALCIUM CITRATE 250 MG TABLET PO SCH (16:00)
[2018-04-05] MEDS ORDERED: CALCIUM CITRATE 500 MG PO SCH (16:15)
[2018-04-05] MEDS ORDERED: ALBUTEROL NEB 2.5 MG/3 ML INH PRN (16:18)
[2018-04-05] MEDS: PREGABALIN 25 MG CAPSULE PO SCH (21:45)
[2018-04-05] MEDS: ATORVASTATIN 10 MG TABLET PO SCH (21:45)
[2018-04-06] MEDS: SODIUM CHLORIDE FLUSH 0.9% 10 ML SYRINGE IVP SCH ×2 (00:32→14:17)
[2018-04-06] MEDS: ACETAMINOPHEN 325 MG TABLET PO PRN ×2 (00:32→16:02)
[2018-04-06 06:16] LABS: BASOPHILS # (AUTO) 0.1 10^3/uL (0.0-0.1); BASOPHILS % (AUTO) 0.6 %; EOSINOPHILS # (AUTO) 0.1 10^3/uL (0.0-0.7); EOSINOPHILS % (AUTO) 0.5 %; HGB - HEMOGLOBIN 13.1 g/dL (12.0-16.0); LYMPHOCYTES # (AUTO) 1.1 10^3/uL (1.5-3.5); MEAN CORPUSCULAR HEMOGLOBIN 30.9 pg (27.0-31.0); MEAN CORPUSCULAR HGB CONC 33.8 g/dL (32.0-36.0); MEAN CORPUSCULAR VOLUME 91.3 fL (81.0-99.0); MEAN PLATELET VOLUME 9.9 fL (7.9-10.8); MONOCYTES % (AUTO) 9.5 %; NEUTROPHILS # (AUTO) 8.5 10^3/uL (1.5-6.6); NEUTROPHILS % (AUTO) 79.4 %; PLT - PLATELET COUNT 203 10^3/uL (130-450); RED BLOOD COUNT 4.26 10^6/uL (4.20-5.40); RED CELL DISTRIBUTION WIDTH 14.5 % (12.0-15.0); WHITE BLOOD COUNT 10.7 x10^3/uL (4.8-10.8)
[2018-04-06 06:27] LABS: CALCIUM 9.2 mg/dL (8.5-10.3); CREATININE 1.2 mg/dL (0.4-1.0)
[2018-04-06] MEDS: PREGABALIN 25 MG CAPSULE PO SCH ×2 (06:54→14:20)
[2018-04-06] MEDS ORDERED: BISACODYL 10 MG SUPP PR SCH (07:30)
[2018-04-06] MEDS ORDERED: MULTIVITAMIN TABLET PO SCH (08:00)
[2018-04-06] MEDS: SENNA 8.6 MG TABLET PO SCH (08:08)
[2018-04-06] MEDS: DULoxetine 30 MG CAPSULE PO SCH (08:08)
[2018-04-06] MEDS: DOCUSATE SODIUM 250 MG CAPSULE PO SCH (08:09)
[2018-04-06] MEDS: ASPIRIN EC 81 MG TABLET PO SCH (08:10)
[2018-04-06] MEDS: FAMOTIDINE 20 MG TABLET PO SCH (08:10)
[2018-04-06] MEDS: POLYETHYLENE GLYCOL 3350 17 GM PACKET PO SCH (08:10)
[2018-04-06] MEDS: NYSTATIN POWDER 15 GM TOP SCH (08:11)
--- NOTE | 2018-04-06 10:50 | Discharge Plan ---
"Discharge Plan for SNF / [facility] - DC Plan and Transition Orders Disposition: 03 SNF DC/Xfer Condition: Good SNF Transition Orders: Admit to: [facility] under the care of Ruel Marte MD Discharge Diagnosis: 1. Rhabdomyolysis after fall at home 2. acute on chronic kidney failure 3. morbid obesity 4. weakness 5. HTN 6. chronic pain syndrome 7. beth intertrigo 8. HTN 9. Hyperlipidemia 10. Stage 1 decub of sacrum at top of buttock crack Medicare Certification: I certify that [facility] is medically necessary on a continuing basis for any of the conditions for which she/he is receiving care during hospitalization. Notify PCP of admission and forward orders to primary provider for signature. Weight on admission and weekly. Call PCP immediately if weight increases by 5 pounds or if patient develops dyspnea, chest pain/tightness or edema. House Bowel Program: yes If no BM after 2 days, nurse may give M.O.M. 30ml PO PRN and /or ducolax Supp 1 ID and /or BRITTANY 250mg P.O., and/or senna 1-2 tabs PO. On day 3 nurse may give repeat above order until residents constipation is resolved. Immunizations: Annual Influenza Vaccine: yes. (between Apr 03 and October 31.) Unless allergy or already given Two-Step PPD: yes per [facility] [id number] or appropriate documentation of approved exceptions Treatments & Other Orders: change body position frequently for pressure relief and to prevent decub Duoderm to sacral Stage 1 decub. Oxygen Orders: prn nasal canula O2 for O2 sat <90%. Keep sat at 90-92%. Lab Tests or X-Rays Orders: BMP in 1 week Orthopedic Orders: none. Medications: PLEASE REFER TO THE DISCHARGE MEDICATION LIST. Insulin Orders? no Diagnosis: Diabetes Initiate hypo and hyperglycemia protocols for BG <70 and BG >375. May check BG prn for signs/symptoms of dysglycemia. Frequency of BG checks: [AC/Meal/HS] Basal Insulin: Lantus 100 units / ml inject subq as follows: Other: Correction Insulin: - Select the type of insulin below [Choose: Novolog/Humalog]100 units /ml insulin inject subq per orders indicate below [] LOW DOSE [] MODERATE DOSE [] MODERATE/HIGH DOSE [] HIGH DOSE GB UNITS GB UNITS GB UNITS GB UNITS 61-140 0 UNITS 61-140 0 UNITS 61-140 0 UNITS 61-140 0 UNITS 141-175 1 UNITS 141-175 1 UNITS 141-175 2 UNITS 141-175 3 UNITS 176-225 2 UNITS 176-225 3 UNITS 176-225 4 UNITS 176-225 5 UNITS 226-275 3 UNITS 226-275 5 UNITS 226-275 6 UNITS 226-275 7 UNITS 276-325 4 UNITS 276-325 7 UNITS 276-325 8 UNITS 276-325 9 UNITS 326-375 5 UNITS 326-375 9 UNITS 326-375 10 UNITS 326-375 11 UNITS >375 CONTACT MD >375 CONTACT MD >375 CONTACT MD >375 CONTACT MD Custom Dosing: [Choose: None/Novolog/Humalog] 100 units/ml Insulin inject subq as follows: GB Units 61-140 [] Units 141-175 [] Units 176-225 [] Units 226-275 [] Units 276-325 []Units 326-375 [] Units >375 Contact MD Allergies and Adverse Reactions: Allergies Allergy/AdvReac Type Severity Reaction Status Date / Time No Known Drug Allergies Allergy Verified 04/03/18 18:58 - Medications New Prescriptions: Nystatin [Nystop] 1 applic TOP BID #1 bottle - Diet Type: No added salt Texture: Regular Liquids: Thin May have monthly special meal: Yes - Therapies | Activity Therapy: Evaluation | Treat if indicated: PT, OT Rehabilitation Potential: Maximize functional status, Return to independent living Activity: Activity as Tolerated Weight Bearing: Full Weight Assistance Devices: Wheelchair, Walker"
[2018-04-06] MEDS ORDERED: MAGNESIUM CITRATE 296 ML BOTTLE PO ONE (10:51)
[2018-04-06 16:29] VITALS: BP 149/63
--- NOTE | 2018-04-15 04:03 | DISCHARGE SUMMARY ---
Physician: Bren Morales MD DATE OF ADMISSION: 04/03/2018 DATE OF DISCHARGE: 04/06/2018 DISCHARGE DIAGNOSES 1. Rhabdomyolysis. 2. Fall in own home. 3. Acute kidney injury. 4. Generalized edema. 5. Generalized weakness. 6. Stacy intertrigo. 7. Hypertension. 8. Decubitus ulcer, stage I, sacrum at top of buttock crack. DISCHARGE MEDICATIONS 1. Aspirin 81 mg a day. 2. Zyrtec 10 mg a day. 3. Glucosamine with chondroitin 1 tab p.o. b.i.d. 4. Multivitamin daily. 5. Omeprazole 20 mg p.o. daily. 6. Coenzyme Q10 10 mg a day. 7. Ambien 10 mg a day. 8. Proventil HFA 2 puffs every 4 hours as needed for asthma. 9. Calcium citrate 500 mg every 2 days. 10. Flexeril 10 mg p.o. t.i.d. 11. Colace 100 mg p.o. b.i.d. 12. Cymbalta 30 mg daily. 13. Lasix 20 mg daily. 14. Cozaar 100 mg daily. 15. Nystop to Stacy intertrigo on body b.i.d. 16. Lyrica 75 mg p.o. t.i.d. 17. Simvastatin 40 mg p.o. q.p.m. 18. Spironolactone 25 mg p.o. b.i.d. PRINCIPAL PROCEDURES 1. Echocardiogram with left ventricle size normal. Ejection fraction 60% to 65% without regional wa ll motion abnormalities. Right and left atrial index volumes are normal. Right ventricular systolic pressure at rest 42 mmHg. 2. Hip, pelvis x-ray limited due to positioning. No acute fracture identified. No dislocation. Se constantino bilateral hip joint space narrowing with osteophyte formation. Sacroiliac joints grossly unrema rkable. 3. Head CT negative for acute intracranial bleeding, infarct, midline shift. HOSPITAL COURSE: The patient is a 77-year-old, morbidly obese female with weight 134 kg and at 5 fee t 3 inches tall. She lives in her own home, has a history of hypertension, untreated sleep apnea, fi bromyalgia, and hyperlipidemia. She fell at 1 in the morning while she was walking from the bedroom to the bathroom, and unable to get up. She lie on the floor for 10 hours. She lie on her right hip. She has a neighbor who checks on her as a routine, as well as feeds her dinner every day. The amry hbor found her 10 hours later and helped her get up to the couch, where she was watching TV for sever al hours. She got up and then tried to walk again using a cane and had severe right hip spasm, and f ell backwards this time, and lie on the floor for another several hours before the neighbor again dion cked on her and found her on the floor. With the second time, 911 was called. She has pain in the r ight hip. X-rays negative for fracture. She has no pain in the back of the head where she fell. Im aging study was negative. She says that she has not eaten anything all day long and she has not urin ated since 1 in the morning. She was admitted as rhabdomyolysis and acute kidney injury. BUN on admission was 36. At discharge, it was 22. Creatinine on admission was 1.6, at discharge 1.2. CK on admission was 2523. The next d ay it went up to 3335. At discharge, she is 1044. She was on a downward trend. Her main problem wa s that of constipation, but she was eating 50% to 100% of her meals, and drinking fluids. Her one ma in problem on the day of discharge was constipation. It is a chronic problem for her at home, and molly flores had not had a bowel movement in several days. As such, she received mag citrate, and it was expect ed that she would have a bowel movement later on in the day. She did not want enemas. Social Servic advised a care conference team, that the patient may be a hoarder and possible APS referral case, which would be looked at through their department. Stacy intertrigo was treated with nystatin cremaria m. Decubitus ulcer was seen by the wound nurse through the [facility]. Blood pressure remained cont rolled in the 130s over 70s systolic. Greater than 30 minutes was spent coordinating discharge. On the day of discharge, the patient was a lert, oriented, relatively immobile and needing 2-person assist to be able to sit up. PHYSICAL EXAMINATION VITAL SIGNS: Temperature was 36.7, pulse was 74, blood pressure 149/63, respirations 20 and unlabore d, 96% on room air. NECK: Assessed for suppleness and there was no rigidity. However, unable to be assessed for JVD bec ause of short stature and thickness of neck. LUNGS: She had diminished breath sounds at the bases, but was otherwise clear. No crackles, rhonchi or wheezing. No increased respiratory effort with talking to me. HEART: PMI was not able to be palpated, and she had a regular rate and rhythm. SKIN: Stacy intertrigo underneath the breast pannus and stomach pannus was being treated by [facility] in. EXTREMITIES: Legs are large, ruborous, some evidence of venous stasis microsoft exchange administrator the distal tib-fib skin area. The most she was able to do were chair exercises. She did arm and ankle pumps, knee ext ension, and hip flexion in the chair. It is hoped that she will increase her strength and then be able to sit on her own, then stand. She was transferred to a long-term facility via wheelchair van using a wide wheelchair. Greater than 30 minutes was spent coordinating discharge. She is asked to follow up with her primary care provider, Dr. Marte, when she gets out of the long-term facility. TD: 04/14/2018 23:49
== END 2018-04-06 17:12 | DRG 558 ==
LOC: EDUNIT# → ED 17:57 → MS2 19:32
PROVIDERS: ADMIT Internal Medicine; ATTEND Specialist
DX: M62.82 Rhabdomyolysis (principal); S70.01XA Contusion of right hip, initial encounter; N17.9 Acute kidney failure, unspecified; N28.9 Disorder of kidney and ureter, unspecified; I10 Essential (primary) hypertension; Z68.41 Body mass index [BMI] 40.0-44.9, adult; G89.29 Other chronic pain; M54.9 Dorsalgia, unspecified; M25.551 Pain in right hip; W01.0XXA Fall on same level from slipping, tripping and stumbling without subsequent striking against object, initial encounter; Y92.008 Other place in unspecified non-institutional (private) residence as the place of occurrence of the external cause; R60.1 Generalized edema; B37.2 Candidiasis of skin and nail; I12.9 Hypertensive chronic kidney disease with stage 1 through stage 4 chronic kidney disease, or unspecified chronic kidney disease; N18.9 Chronic kidney disease, unspecified; L89.151 Pressure ulcer of sacral region, stage 1; E66.01 Morbid (severe) obesity due to excess calories; I27.20 Pulmonary hypertension, unspecified; G47.30 Sleep apnea, unspecified; M79.7 Fibromyalgia; G89.4 Chronic pain syndrome; K59.09 Other constipation; M16.0 Bilateral primary osteoarthritis of hip; E78.5 Hyperlipidemia, unspecified; I87.8 Other specified disorders of veins; K21.9 Gastro-esophageal reflux disease without esophagitis; R25.1 Tremor, unspecified; S04.51 Injury of facial nerve, right side; Y83.8 Other surgical procedures as the cause of abnormal reaction of the patient, or of later complication, without mention of misadventure at the time of the procedure; Z79.82 Long term (current) use of aspirin; Z79.899 Other long term (current) drug therapy; Z85.3 Personal history of malignant neoplasm of breast; Z91.81 History of falling
CPT/HCPCS: 36415; 70450; 80048; 80053; 80076; 81001; 81003; 82550; 83605; 83690; 83735; 85025; 85610; 87086; 93005; 93306; 96361; 96374; 99284; 99285

== ENCOUNTER 2018-04-21 16:24 | Outpatient (CLI) | payer MEDICARE, BC ==
[2018-04-21 19:36] LABS: CALCIUM 9.5 mg/dL (8.5-10.3); CREATININE 0.9 mg/dL (0.4-1.0)
== END 2018-04-21 16:25 | disposition home or self-care (01) ==
LOC: LAB.R 16:24
DX: R79.89 Other specified abnormal findings of blood chemistry (principal)
CPT/HCPCS: 80048

== ENCOUNTER 2018-05-10 14:04 | Outpatient (CLI) | payer MEDICARE, BC ==
[2018-05-10 19:25] LABS: ALBUMIN 4.2 g/dL (3.2-5.5); ALBUMIN/GLOBULIN RATIO 1.1 (1.0-2.2); ALKALINE PHOSPHATASE 93 IU/L (42-121); ALT ALANINE AMINOTRANSFERASE 19 IU/L (10-60); AST ASPARTATE AMINOTRANSFERASE 20 IU/L (10-42); BILIRUBIN,TOTAL 0.8 mg/dL (0.2-1.0); BUN - BLOOD UREA NITROGEN 23 mg/dL (6-20); CALCIUM 10.6 mg/dL (8.5-10.3); CARBON DIOXIDE - CO2 27 mmol/L (21-32); CHLORIDE 98 mmol/L (101-111); CHOL/HDL RATIO 3.6 (<4.4); CHOLESTEROL 164 mg/dL; CREATININE 1.2 mg/dL (0.4-1.0); GFR - MDRD 44 (>89); GLUCOSE 109 mg/dL (70-100); HDL CHOLESTEROL 46 mg/dL; LDL CHOLESTEROL,CALCULATED 88 mg/dL; LDL/HDL RATIO 1.9 (<4.4); SODIUM 137 mmol/L (135-145); TOTAL PROTEIN 8.2 g/dL (6.7-8.2); VLDL CHOLESTEROL 30 mg/dL
[2018-05-10 21:01] LABS: HB2 TOTAL 16.3 g/dL; HEMOGLOBIN A1C 0.58 g/dL; HEMOGLOBIN A1C % 5.4 % (4.6-6.2)
== END 2018-05-10 14:05 | disposition home or self-care (01) ==
LOC: LAB.WCP 14:04
PROVIDERS: ATTEND Family Medicine
DX: M79.7 Fibromyalgia (principal); I10 Essential (primary) hypertension; J44.9 Chronic obstructive pulmonary disease, unspecified; J98.4 Other disorders of lung; R73.01 Impaired fasting glucose
CPT/HCPCS: 36415; 80053; 80061; 83036; 83721

== ENCOUNTER 2018-07-14 13:43 | Outpatient (CLI) | payer MEDICARE, BC ==
[2018-07-14 20:01] LABS: BASOPHILS # (AUTO) 0.1 10^3/uL (0.0-0.1); BASOPHILS % (AUTO) 0.8 %; EOSINOPHILS # (AUTO) 0.1 10^3/uL (0.0-0.7); EOSINOPHILS % (AUTO) 1.5 %; HGB - HEMOGLOBIN 15.5 g/dL (12.0-16.0); LYMPHOCYTES % (AUTO) 10.8 %; MEAN CORPUSCULAR HEMOGLOBIN 30.2 pg (27.0-31.0); MEAN CORPUSCULAR HGB CONC 32.4 g/dL (32.0-36.0); MEAN CORPUSCULAR VOLUME 93.1 fL (81.0-99.0); MEAN PLATELET VOLUME 10.7 fL (7.9-10.8); MONOCYTES # (AUTO) 1.1 10^3/uL (0.0-1.0); MONOCYTES % (AUTO) 11.3 %; NEUTROPHILS # (AUTO) 7.2 10^3/uL (1.5-6.6); NEUTROPHILS % (AUTO) 75.6 %; PLT - PLATELET COUNT 291 10^3/uL (130-450); RED BLOOD COUNT 5.12 10^6/uL (4.20-5.40); RED CELL DISTRIBUTION WIDTH 14.1 % (12.0-15.0); WHITE BLOOD COUNT 9.5 x10^3/uL (4.8-10.8)
[2018-07-14 20:10] LABS: ALBUMIN 4.3 g/dL (3.2-5.5); ALKALINE PHOSPHATASE 110 IU/L (42-121); ALT ALANINE AMINOTRANSFERASE 18 IU/L (10-60); AST ASPARTATE AMINOTRANSFERASE 20 IU/L (10-42); BILIRUBIN,TOTAL 0.5 mg/dL (0.2-1.0); BUN - BLOOD UREA NITROGEN 49 mg/dL (6-20); CALCIUM 10.1 mg/dL (8.5-10.3); CARBON DIOXIDE - CO2 23 mmol/L (21-32); CHLORIDE 98 mmol/L (101-111); CREATININE 1.6 mg/dL (0.4-1.0); GFR - MDRD 31 (>89); GLUCOSE 110 mg/dL (70-100); SODIUM 133 mmol/L (135-145); TOTAL PROTEIN 8.5 g/dL (6.7-8.2)
== END 2018-07-14 23:59 | disposition home or self-care (01) ==
LOC: LAB.WCP 13:43
PROVIDERS: ATTEND Family Medicine
DX: R29.898 Other symptoms and signs involving the musculoskeletal system (principal); I10 Essential (primary) hypertension; R60.9 Edema, unspecified
CPT/HCPCS: 36415; 80053; 84443; 85025

== ENCOUNTER 2018-07-20 10:58 | Outpatient (CLI) | payer MEDICARE, BC ==
--- NOTE | 2018-07-20 17:19 | CT Report ---
Reason: RESTRICTIVE LUNG DISEASE,DYSPNEA ON EXERTION Procedure Date: 07/20/2018 Accession Number: [id number] / [id number] Procedure: CT - Chest W/O CPT Code: FULL RESULT: EXAM: CT CHEST EXAM DATE: 07/20/2018 11:18 AM. CLINICAL HISTORY: RESTRICTIVE LUNG Disease, dyspnea ON EXERTION. COMPARISONS: None. TECHNIQUE: Routine helical CT imaging was performed through the chest. IV contrast: None. Reconstructions: Coronal and sagittal. In accordance with CT protocol optimization, one or more of the following dose reduction techniques were utilized for this exam: automated exposure control, adjustment of mA and/or KV based on patient size, or use of iterative reconstructive technique. FINDINGS: Lungs/Pleura: There are scattered 2-3 mm pulmonary nodules and/or reticulonodular opacities in the lower lungs, at least 6 of which are present in the right middle lobe seen best on MIP images (reference images 41 through 45). No bronchial thickening, consolidation, or edema. No evidence of fibrosis. . No pericardial or pleural effusion. No pneumothorax. Mediastinum: Normal. No adenopathy or masses. The heart and great vessels are normal. Bones: Degenerative changes of the thoracic spine commensurate with age. Visualized Abdomen: Prior cholecystectomy with mild pneumobilia in the left biliary system. 11 mm nonspecific hypodensity medial left lobe of liver series 3 image 52. Density measurement 12.5 HU could indicate cyst. Other: None. IMPRESSION: 1. No specific pulmonary findings to explain shortness of breath. 2. Nonspecific tiny pulmonary nodules as described of uncertain but doubtful significance. Recommend follow-up per Fleischner criteria with no imaging recommended for low risk individuals versus optional twelve-month follow-up for high-risk individuals. 3. Nonspecific hypodensity left lobe of liver as described, possibly a cyst. If visible by US, cyst can likely be confirmed. If not visible by US, more definitive imaging could be performed with dedicated contrast-enhanced CT scan or liver MRI. [facility]
== END 2018-07-20 10:59 | disposition home or self-care (01) ==
LOC: DI 10:58
PROVIDERS: ATTEND Family Medicine
DX: J98.4 Other disorders of lung (principal); R06.09 Other forms of dyspnea; R91.8 Other nonspecific abnormal finding of lung field; I08.0 Rheumatic disorders of both mitral and aortic valves
CPT/HCPCS: 71250; 93306

== ENCOUNTER 2018-08-20 07:42 | Outpatient (CLI) | payer MEDICARE, BC ==
--- NOTE | 2018-08-20 14:51 | Ultrasound Report ---
Reason: HEPATIC CYST Procedure Date: 08/20/2018 Accession Number: [id number] / [id number] Procedure: US - Abdomen Limited CPT Code: FULL RESULT: EXAM: ABDOMEN ULTRASOUND LIMITED, RUQ EXAM DATE: 08/20/2018 08:18 AM. CLINICAL HISTORY: HEPATIC CYST. COMPARISON: 09/27/2013 abdomen ultrasound. 7 mm cyst noted in the left lobe of the liver on this study. Chest CT 07/20/2018 TECHNIQUE: Real-time scanning was performed with static images obtained. FINDINGS: Liver: Increased both in size and echotexture. 17.2 cm. Main portal vein flow: Hepatopetal. Left lobe cyst 1.3 x 1 x 1.2 cm similar in size to the chest CT of 07/20/2018 and slightly increased in size since the ultrasound of 09/27/2013 Gallbladder: Post cholecystectomy. Biliary System: CBD measures 5.1 mm. No intrahepatic or extrahepatic ductal dilatation. Other: None. IMPRESSION: 1. Hepatomegaly with fatty infiltration of the liver. 2. Left hepatic lobe cyst slightly increased in size compared to the prior ultrasound of 09/27/2013. No solid masses. 3. Status post cholecystectomy. [facility]
== END 2018-08-20 07:43 | disposition home or self-care (01) ==
LOC: DI 07:42
PROVIDERS: ATTEND Family Medicine
DX: K76.89 Other specified diseases of liver (principal); K76.0 Fatty (change of) liver, not elsewhere classified; Z90.49 Acquired absence of other specified parts of digestive tract
CPT/HCPCS: 76705

== ENCOUNTER 2018-10-22 13:32 | Emergency (ER) | payer MEDICARE, BC ==
--- NOTE | 2018-10-22 15:06 | ED Physician Documentation ---
History of Present Illness - Stated complaint Stated Complaint: R HIP PAIN/GLF - Chief complaint Chief Complaint: Trauma Ch/Bk - Additonal information Additional information: 77-year-old female Presents to the emergency department for evaluation of hip pain after falling several days ago at home. The patient fell in the middle the night. The patient usually uses a walker. The patient denies this being a syncopal episode. The patient denies any chest pain or palpitations before or after the fall. The patient denies dizziness before or after the fall. The patient denies any head injury. The patient reports ongoing pain in her hip. The patient does have some arthritis in that hip. No other associated symptoms. Symptoms are described as moderate. The patient has been ambulatory with her walker. Review of Systems Constitutional: denies: Fever, Fatigue Eyes: denies: Discharge Ears: denies: Ear pain Nose: denies: Congestion Throat: denies: Sore throat Cardiac: denies: Chest pain / pressure Respiratory: denies: Dyspnea GI: denies: Abdominal Pain : denies: Dysuria Skin: denies: Laceration (s) Musculoskeletal: reports: Extremity pain, Joint pain. 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, Oophrectomy, Other HEENT: Cataracts Derm: Skin cancer surgery - Present Medications Home Medications: Ambulatory Orders Medication Instructions Recorded Confirmed Cetirizine HCl [Zyrtec] 10 mg PO DAILY PRN 04/27/14 04/04/18 Gluc HCl/Csa/Collagen/Hyalur A 1 each PO BID 04/27/14 04/04/18 [Glucosamine Chondroitin Cap] Multivitamin [Multi-Vitamin Daily] 1 each PO DAILY 04/27/14 04/04/18 Omeprazole 20 mg PO QDAC 04/27/14 04/04/18 Zolpidem [Ambien] 10 mg PO QPM PRN 04/27/14 04/04/18 Aspirin [Aspir-Low] 81 mg PO DAILY 09/25/16 04/04/18 Ubidecarenone [Coenzyme Q-10] 10 mg PO DAILY 04/04/18 04/04/18 Albuterol Sulfate [Proventil Hfa 2 puffs INH Q4H PRN #0 04/06/18 04/04/18 Inhaler] Calcium Citrate 500 mg PO Q2D #0 04/06/18 04/04/18 Cyclobenzaprine [Flexeril] 10 mg PO TID PRN #0 04/06/18 04/04/18 DULoxetine [Cymbalta] 30 mg PO DAILY #0 04/06/18 04/04/18 Docusate Sodium 100 mg PO BID #0 04/06/18 04/04/18 Furosemide [Lasix] 20 mg PO DAILY #0 04/06/18 04/04/18 Losartan [Cozaar] 100 mg ORAL DAILY #0 04/06/18 04/04/18 Nystatin [Nystop] 1 applic TOP BID #1 bottle 04/06/18 Pregabalin [Lyrica] 75 mg PO TID #0 04/06/18 04/04/18 Psyllium Husk [Metamucil] 2.08 gm PO DAILY #0 04/06/18 04/04/18 Simvastatin [Zocor] 40 mg PO QPM #0 04/06/18 04/04/18 Spironolactone 25 mg PO BID #0 04/06/18 04/04/18 - Allergies Allergies/Adverse Reactions: Allergies Allergy/AdvReac Type Severity Reaction Status Date / Time No Known Drug Allergies Allergy Verified 10/22/18 13:40 - Social History Does the pt smoke?: No Smoking Status: Never smoker Does the pt drink ETOH?: No Does the pt have substance abuse?: Yes - Immunizations Immunizations are current?: Yes PD ED PE NORMAL - General General: Alert and oriented X 3, No acute distress - HEENT HEENT: Atraumatic, PERRL, EOMI, Ears normal - Neck Neck: Supple, no meningeal sign - Cardiac Cardiac: RRR, Strong equal pulses - Respiratory Respiratory: No respiratory distress - Derm Derm: Normal color - Extremities Extremities: No deformity, Normal ROM s pain, Other (The patient has tenderness of the right hip, the patient has normal range of motion. The patient also has tenderness in her right paraspinal muscles. There is no crepitus. There is no skin changes. The patient has no other joint tenderness.) - Neuro Neuro: Alert and oriented X 3, Normal speech - Psych Psych: Normal affect Results - Vitals Vitals: Vital Signs - 24 hr 10/22/18 13:40 Heart Rate 67 Respiratory 16 Rate Blood Pressure 142/60 H O2 Saturation 98 Oxygen O2 Source [] Room air O2 Source Room air - Rads (name of study) XR hip Radiology: Final report received, See rad report XR lumbar Radiology: Final report received, See rad report (IMPRESSION: Degenerative changes. No appreciable fracture. Lateral radiograph technically limited by body habitus. ) PD MEDICAL DECISION MAKING - ED course ED course: The patient denies any symptoms that are suggestive of syncope before or after the fall. I discussed the findings with the patient, I advised follow-up with orthopedics to further assess the degenerative changes seen on the x-ray. The patient understands and agrees. I advised returning to the emergency department immediately for any worsening or any concerns. Currently the patient appears appropriate for discharge with ongoing outpatient management. Departure - Departure Disposition: 01 Home, Self Care Clinical Impression: Hip pain, acute Qualifiers: Laterality: unspecified laterality Qualified Code(s): M25.559 - Pain in unspecified hip Fall Qualifiers: Encounter type: initial encounter Qualified Code(s): W19.XXXA - Unspecified fall, initial encounter Condition: Good Instructions: Falls Change Living Space, Falls Risks Prevent, Hip Osteoart hritis, Hip Osteoarthritis Exercise Follow-Up: [facility] [Provider Group] (Call to schedule a follow up visit for evaluation of your his pain) Comments: Please return to the emergency department for worsening symptoms or any concerns
--- NOTE | 2018-10-22 15:58 | XRAY Report ---
Reason: hip injury Procedure Date: 10/22/2018 Accession Number: [id number] / [id number] Procedure: XR - Hip w/Pelvis 2-3V RT CPT Code: FULL RESULT: EXAM: RIGHT HIP RADIOGRAPHY EXAM DATE: 10/22/2018 03:42 PM. CLINICAL HISTORY: Hip injury. COMPARISON: HIP W/PELVIS 2-3V RT 04/03/2018 6:40 PM. TECHNIQUE: 2 views. FINDINGS: Bones: No appreciable acute fracture. Joints: Stable severe degenerative osteoarthritis of the hips with moderate-sized marginal osteophyte of the right femoral head and apparent [id number] articulation at the weight-bearing surface of the left hip with subchondral sclerosis. Soft Tissues: Normal. No soft tissue swelling. IMPRESSION: Severe bilateral hip osteoarthritis. No appreciable acute fracture. RADIA
--- NOTE | 2018-10-22 16:01 | XRAY Report ---
Reason: fall Procedure Date: 10/22/2018 Accession Number: [id number] / [id number] Procedure: XR - Lumbar Spine 2 View CPT Code: FULL RESULT: EXAM: LUMBOSACRAL SPINE RADIOGRAPHY EXAM DATE: 10/22/2018 03:42 PM. CLINICAL HISTORY: Fall. COMPARISONS: None. TECHNIQUE: 3 views. FINDINGS: Note: Crosstable lateral exam limited by body habitus. Alignment: Normal. No spondylolisthesis or scoliosis. Bones: Five bic-[id number]-tupcynv lumbar vertebral bodies are present. No appreciable fractures. No loss of height. Disks: Degenerative disk space narrowing noted at L2-L3, L4-L5 and L5-S1 with small marginal osteophyte. Facets: Bilateral facet arthrosis at L5-S1. Sacroiliac Joints: Unremarkable. Soft Tissues: Clips in the right upper quadrant from prior cholecystectomy. The visualized bowel gas pattern is normal. Severe bilateral hip osteoarthritis. IMPRESSION: Degenerative changes. No appreciable fracture. Lateral radiograph technically limited by body habitus. RADIA
[2018-10-22 19:43] VITALS: BP 140/86
== END 2018-10-22 16:15 | disposition home or self-care (01) ==
LOC: ED 13:32
DX: M25.551 Pain in right hip (principal); Z91.81 History of falling; M16.10 Unilateral primary osteoarthritis, unspecified hip; I10 Essential (primary) hypertension; E78.00 Pure hypercholesterolemia, unspecified; M79.7 Fibromyalgia; G89.29 Other chronic pain; M54.9 Dorsalgia, unspecified
CPT/HCPCS: 72100; 99282

== ENCOUNTER 2019-04-06 15:11 | Outpatient (CLI) | payer MEDICARE, BC ==
--- NOTE | 2019-04-08 07:51 | Ultrasound Report ---
Reason: CAROTIDYNIA Procedure Date: 04/06/2019 Accession Number: [id number] / [id number] Procedure: US - Carotid Doppler Complete CPT Code: FULL RESULT: EXAM: BILATERAL CAROTID AND VERTEBRAL ARTERY DUPLEX DOPPLER ULTRASOUND: EXAM DATE: 04/06/2019 05:00 PM CLINICAL HISTORY: Carotidynia. COMPARISON: None. TECHNIQUE: Grayscale imaging, color Doppler, and duplex spectral Doppler were used to evaluate the carotid and vertebral arteries bilaterally. Static images were obtained. FINDINGS: No significant plaque is identified in the right or left common or internal carotid arteries. Normal antegrade flow is present in bilateral vertebral arteries. VELOCITIES (cm/sec): Right CCA mid: PSV 66 cm/sec CCA dist: PSV 50 cm/sec ICA prox: PSV 52.3 cm/sec, EDV 13.3 cm/sec ICA mid: PSV 54 cm/sec, EDV 16 cm/sec ICA dist: PSV 28 cm/sec, EDV 6.4 cm/sec ECA: PSV 97 cm/sec Vert: PSV 63 cm/sec ICA/CCA: 0.8 Left CCA mid: PSV 90 cm/sec CCA dist: PSV 55 cm/sec ICA prox: PSV 71.2 cm/sec, EDV 11.7 cm/sec ICA mid: PSV 68.4 cm/sec, EDV 20 cm/sec ICA dist: PSV 57 cm/sec, EDV 19 cm/sec ECA: PSV 96 cm/sec Vert: PSV 92 cm/sec ICA/CCA: 0.8 ICA diameter stenosis: Right: <50% by velocity and <70% by NASCET criteria. Left: <50% by velocity and <70% by NASCET criteria. IMPRESSION: 1. No significant bilateral carotid artery plaquing. 2. Technologist indicated technically limited study due to short neck, tortuous vessels, and motion. RADIA
== END 2019-04-06 15:12 | disposition home or self-care (01) ==
LOC: DI 15:11
PROVIDERS: ATTEND Family Medicine
DX: I77.89 Other specified disorders of arteries and arterioles (principal)
CPT/HCPCS: 93880

== ENCOUNTER 2019-05-04 14:45 | Inpatient (IN) | payer MEDICARE, BC ==
[2019-05-04 15:30] LABS: BASOPHILS % (AUTO) 0.3 %; EOSINOPHILS # (AUTO) 0.1 10^3/uL (0.0-0.7); EOSINOPHILS % (AUTO) 0.7 %; HGB - HEMOGLOBIN 13.1 g/dL (12.0-16.0); LYMPHOCYTES # (AUTO) 0.7 10^3/uL (1.5-3.5); MEAN CORPUSCULAR HEMOGLOBIN 30.1 pg (27.0-31.0); MEAN CORPUSCULAR HGB CONC 32.2 g/dL (32.0-36.0); MEAN CORPUSCULAR VOLUME 93.6 fL (81.0-99.0); MEAN PLATELET VOLUME 11.2 fL (7.9-10.8); MONOCYTES # (AUTO) 0.4 10^3/uL (0.0-1.0); MONOCYTES % (AUTO) 5.7 %; NEUTROPHILS # (AUTO) 6.3 10^3/uL (1.5-6.6); NEUTROPHILS % (AUTO) 83.9 %; PLT - PLATELET COUNT 236 10^3/uL (130-450); RED BLOOD COUNT 4.35 10^6/uL (4.20-5.40); RED CELL DISTRIBUTION WIDTH 14.8 % (12.0-15.0); WHITE BLOOD COUNT 7.5 x10^3/uL (4.8-10.8)
--- NOTE | 2019-05-04 15:35 | XRAY Report ---
Reason: shortness of breath Procedure Date: 05/04/2019 Accession Number: [id number] / [id number] Procedure: XR - Chest 1 View X-Ray CPT Code: 11432 FULL RESULT: EXAM: CHEST RADIOGRAPHY EXAM DATE: 05/04/2019 03:23 PM. CLINICAL HISTORY: Shortness of breath. COMPARISON: None. TECHNIQUE: 1 view. FINDINGS: Lungs/Pleura: Perihilar vascular congestion is suggestive of mild pulmonary edema. No focal opacities evident. No pleural effusion. No pneumothorax. Mediastinum: Moderate cardiomegaly noted. Other: None. IMPRESSION: Moderate cardiomegaly with mild pulmonary edema. RADIA
[2019-05-04 15:47] LABS: ALBUMIN 3.8 g/dL (3.2-5.5); ALBUMIN/GLOBULIN RATIO 1.2 (1.0-2.2); BILIRUBIN,TOTAL 0.4 mg/dL (0.2-1.0); CALCIUM 10.2 mg/dL (8.5-10.3); CREATININE 0.8 mg/dL (0.4-1.0)
--- NOTE | 2019-05-04 19:00 | ED Physician Documentation ---
PD HPI DYSPNEA - Stated complaint Stated Complaint: SOA - Chief complaint Chief Complaint: Resp - History obtained from History obtained from: Patient - History of Present Illness Timing - onset: How many weeks ago (1-2) Timing - onset during: Light activity, Exertion. No: Rest Timing - duration: Weeks (1-2) Timing - details: Gradual onset, Still present Inciting event(s): No: Out of meds, URI, Immobilization/travel Improved by: Rest, Sitting up Worsened by: Exertion, Laying flat. No: Coughing Associated symptoms: Chest pain / discomfort (tightness), Bilateral edema. No: Fever, Cough, Hemoptysis, Wheezing, Palpitations Similar symptoms before: Has not had sx before Recently seen: Clinic (Does have history of dyspnea on exertion over a little bit longer term. Seen by her primary care Dr. Marte who was concern for possible lung disease and referred the patient to [facility]. She does have a history of some leg edema in the past no history of coronary disease, heart failure, pulmonary edema.) Review of Systems Constitutional: denies: Fever, Chills, Myalgias Nose: denies: Rhinorrhea / runny nose, Congestion Throat: denies: Sore throat Cardiac: reports: Chest pain / pressure (couple of days), Pedal edema. denies: Palpitations, Calf pain Respiratory: reports: Dyspnea. denies: Cough, Wheezing GI: denies: Abdominal Pain, Nausea, Vomiting, Diarrhea : denies: Dysuria, Frequency Musculoskeletal: reports: Extremity swelling. denies: Neck pain, Back pain Neurologic: reports: Generalized weakness. 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, Other HEENT: Cataracts Derm: Skin cancer surgery - Present Medications Home Medications: Ambulatory Orders Medication Instructions Recorded Confirmed Cetirizine HCl [Zyrtec] 10 mg PO DAILY PRN 04/27/04/04/18 Gluc HCl/Csa/Collagen/Hyalur A 1 each PO BID 04/27/14 04/04/18 [Glucosamine Chondroitin Cap] Multivitamin [Multi-Vitamin Daily] 1 each PO DAILY 04/27/14 04/04/18 Omeprazole 20 mg PO QDAC 04/27/14 04/04/18 Aspirin [Aspir-Low] 81 mg PO DAILY 09/25/16 04/04/18 Ubidecarenone [Coenzyme Q-10] 10 mg PO DAILY 04/04/18 04/04/18 Albuterol Sulfate [Proventil Hfa 2 puffs INH Q4H PRN #0 04/06/18 04/04/18 Inhaler] Calcium Citrate 500 mg PO Q2D #0 04/06/18 04/04/18 DULoxetine [Cymbalta] 30 mg PO DAILY #0 04/06/18 04/04/18 Furosemide [Lasix] 20 mg PO DAILY #0 04/06/18 04/04/18 Losartan [Cozaar] 100 mg ORAL DAILY #0 04/06/18 04/04/18 Nystatin [Nystop] 1 applic TOP BID #1 bottle 04/06/18 Simvastatin [Zocor] 40 mg PO QPM #0 04/06/18 04/04/18 Spironolactone 25 mg PO BID #0 04/06/18 04/04/18 Beclomethasone Dipropionate [Qvar 75 mci IH DAILY PRN 05/04/19 05/04/19 Redihaler (40 mcg)] Pregabalin [Lyrica] 50 mg PO TID 05/04/19 - Allergies Allergies/Adverse Reactions: Allergies Allergy/AdvReac Type Severity Reaction Status Date / Time No Known Drug Allergies Allergy Verified 05/04/19 14:55 - Social History Does the pt smoke?: No Smoking Status: Never smoker Does the pt drink ETOH?: No Does the pt have substance abuse?: Yes - Immunizations Immunizations are current?: Yes PD ED PE NORMAL - Vitals Vital signs reviewed: Yes - General General: Alert and oriented X 3, Well developed/nourished - HEENT HEENT: Moist mucous membranes, Pharynx benign - Neck Neck: Supple, no meningeal sign, No adenopathy, No bruit, Other (JVD noted at 45 degrees) - Cardiac Cardiac: RRR, No murmur - Respiratory Respiratory: No: Clear bilaterally (Fine crackles at the bases about a third of the way on each side.) - Abdomen Abdomen: Soft, Non tender - Derm Derm: Normal color, Warm and dry - Extremities Extremities: No deformity, No tenderness to palpate, No calf tenderness / cord, Other (2+ edema in both legs up to the knees.) - Neuro Neuro: Alert and oriented X 3, No motor deficit, Normal speech Results - Vitals Vitals: Vital Signs - 24 hr 05/04/19 05/04/19 05/04/19 14:55 18:48 19:41 Temperature 36.5 C 36.7 C Heart Rate 96 80 80 Respiratory 22 24 22 Rate Blood Pressure 153/100 H 184/96 H 190/90 H O2 Saturation 94 93 93 05/04/19 05/04/19 19:58 21:00 Temperature Heart Rate 79 81 Respiratory 18 18 Rate Blood Pressure 183/77 H O2 Saturation 93 Oxygen O2 Source [With Activity] Room air O2 Source Room air - EKG (time done) 21:34 Rate: Rate (enter#) (79) Rhythm: NSR [place]: Normal Intervals: Normal CO QRS: Normal Ischemia: Normal ST segments. No: ST elevation c/w ischemia, ST depression - Labs Labs: Laboratory Tests 05/04/19 05/04/19 05/04/19 15:21 15:21 19:32 WBC 7.5 RBC 4.35 Hgb 13.1 Hct 40.7 MCV 93.6 MCH 30.1 MCHC 32.2 RDW 14.8 Plt Count 236 MPV 11.2 H Neut # (Auto) 6.3 Lymph # (Auto) 0.7 L [place] # (Auto) 0.4 Eos # (Auto) 0.1 Baso # (Auto) 0.0 Absolute Nucleated RBC 0.00 Nucleated RBC % 0.0 Sodium 136 Potassium 4.0 Chloride 104 Carbon Dioxide 25 Anion Gap 7.0 BUN 29 H Creatinine 0.8 Estimated GFR (MDRD) 70 L Glucose 176 H Calcium 10.2 Magnesium 2.0 Total Bilirubin 0.4 AST 17 ALT 16 Alkaline Phosphatase 76 Troponin I High Sens B-Natriuretic Peptide Total Protein 7.0 Albumin 3.8 Globulin 3.2 Albumin/Globulin Ratio 1.2 Lipase 31 05/04/19 05/04/19 19:32 19:32 WBC RBC Hgb Hct MCV MCH MCHC RDW Plt Count MPV Neut # (Auto) Lymph # (Auto) Alpine # (Auto) Eos # (Auto) Baso # (Auto) Absolute Nucleated RBC Nucleated RBC % Sodium Potassium Chloride Carbon Dioxide Anion Gap BUN Creatinine Estimated GFR (MDRD) Glucose Calcium Magnesium Total Bilirubin AST ALT Alkaline Phosphatase Troponin I High Sens 48.1 H* B-Natriuretic Peptide 1057 H Total Protein Albumin Globulin Albumin/Globulin Ratio Lipase - Rads (name of study) chest xray Radiology: Prelim report reviewed (Enlarged heart and pulmonary congestion consistent with CHF), See rad report PD MEDICAL DECISION MAKING - ED course Complexity details: re-evaluated patient (Initially attempted nebulizer treatment and oral Lasix. She did diurese some but is actually feeling more short of breath. Nursing reports she did have a bag of potato chips while here as well. Her blood pressure is increasing over the last hour or 2. I feel she will need more aggressive treatment and also needs better evaluation of this new onset CHF. I think she would be better treated with an hospital treatment and evaluation in a more timely fashion and given her worsening symptoms here in the ER.), considered differential (She has had leg edema in the past with use of intermittent low-dose diuretic. She does have a history of mildly high blood pressure but states is typically 140s over 80s. However she has had 1 to 2 weeks of progressive orthopnea and dyspnea on exertion. She does not have any known history of heart problems. She has been referred to a [facility] for evaluation of some dyspnea and has an appointment in a couple of weeks. However her problem right now does not sound as much pulmonary as new onset CHF.), d/w patient Departure - Departure Disposition: ED Place in Observation Clinical Impression: New onset of congestive heart failure Dyspnea Qualifiers: Dyspnea type: shortness of breath Qualified Code(s): R06.02 - Shortness of breath; R06.00 - Dyspnea, unspecified; R06.01 - Orthopnea Hypertension Qualifiers: Hypertension type: unspecified secondary hypertension Qualified Code(s): I15.9 - Secondary hypertension, unspecified; I15 - Secondary hypertension Condition: Stable Record reviewed to determine appropriate education?: Yes Discharge Date/Time: 05/04/19 22:30
[2019-05-04] MEDS ORDERED: CHERRY SYRUP 10 ML UDC PO ONE (19:22)
[2019-05-04] MEDS ORDERED: ALBUTEROL NEB 2.5 MG/3 ML INH STA (19:22)
[2019-05-04] MEDS ORDERED: DEXAMETHASONE 10 MG/ML VIAL PO STA (19:22)
[2019-05-04] MEDS ORDERED: FUROSEMIDE 20 MG TABLET PO STA (19:23)
[2019-05-04] MEDS ORDERED: METHOCARBAMOL 500 MG TABLET PO STA (19:49)
[2019-05-04] MEDS ORDERED: ACETAMINOPHEN 325 MG TABLET PO STA (19:49)
[2019-05-04] MEDS ORDERED: FUROSEMIDE 20 MG/2 ML VIAL IVP STA (20:51)
[2019-05-04] MEDS ORDERED: NITROGLYCERIN SL 0.4 MG TABLET SL STA (20:51)
[2019-05-04] MEDS ORDERED: ONDANSETRON 4 MG/2 ML VIAL IVP PRN (21:30)
[2019-05-04] MEDS ORDERED: FUROSEMIDE 40 MG/4 ML VIAL IVP STA (21:36)
[2019-05-04] MEDS ORDERED: BENZONATATE 100 MG CAPSULE PO PRN (21:38)
[2019-05-04] MEDS ORDERED: IPRATROPIUM/ALBUTEROL 3 ML NEB INH PRN (21:38)
--- NOTE | 2019-05-04 23:09 | HISTORY & PHYSICAL EXAMINATION ---
Chief Complaint - Chief Complaint Chief Complaint: Shortness of breath History of Present Illness - Admitted From Admitted From:: Home - History Obtained From Records Reviewed: Yes History obtained from: Patient, EMR, ER Physician - History of Present Illness HPI Comment/Other: This is a 78 year old female with a past medical history significant for hypertension and neuropathy who presents from complaining of worsening shortness of breath over the past three weeks. She has been progressively becoming dyspneic with worsening lower extremity edema. She can't tell how much more swollen her legs are as they are edematous at baseline but she feels the edema is more prominent. She endorses associated orthopnea and occasional nonproductive cough. She denies chest pain, fevers, chills. She reports wheezing but denies a history of COPD or asthma. She is a nonsmoker. She has been prescribed Lasix in the past but she only takes it as needed. She has not taken it in a couple of weeks. Denies a history of heart failure. She reports a low salt diet. In the ER, she was hypertensive and tachypnic but was not hypoxic. She was saturating 94% on room air. Labs were significant for an elevated BNP of 1057 and troponin of 48.1. Her EKG was without ischemic changes and was unchanged compared to prior. She received IV Lasix without improvement in her symptoms. She then became more hypertensive with systolic's in the 170's to 190's. Medicine was then consulted for admission. Of note, I did speak with the patient regarding code status. She would like to be a full code but expressed that she would not want to be dependent on a ventilator usp. 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 Living arrangement: At home Social History Notes: She has been retired now for almost 16 years. Lives here on the [place]. She does not smoke. Denies alcohol use. - Substance History Use: Uses substance without health or social issues: NONE - POLST Patient has POLST: No Meds/Allgy - Home Medications Home Medications: Ambulatory Orders Medication Instructions Recorded Confirmed Cetirizine HCl [Zyrtec] 10 mg PO DAILY PRN 04/27/14 04/04/18 Gluc HCl/Csa/Collagen/Hyalur A 1 each PO BID 04/27/14 04/04/18 [Glucosamine Chondroitin Cap] Multivitamin [Multi-Vitamin Daily] 1 each PO DAILY 04/27/14 04/04/18 Omeprazole 20 mg PO QDAC 04/27/14 04/04/18 Aspirin [Aspir-Low] 81 mg PO DAILY 09/25/16 04/04/18 Ubidecarenone [Coenzyme Q-10] 10 mg PO DAILY 04/04/18 04/04/18 Albuterol Sulfate [Proventil Hfa 2 puffs INH Q4H PRN #0 04/06/18 04/04/18 Inhaler] Calcium Citrate 500 mg PO Q2D #0 04/06/18 04/04/18 DULoxetine [Cymbalta] 30 mg PO DAILY #0 04/06/18 04/04/18 Furosemide [Lasix] 20 mg PO DAILY #0 04/06/18 04/04/18 Losartan [Cozaar] 100 mg ORAL DAILY #0 04/06/18 04/04/18 Nystatin [Nystop] 1 applic TOP BID #1 bottle 04/06/18 Simvastatin [Zocor] 40 mg PO QPM #0 04/06/18 04/04/18 Spironolactone 25 mg PO BID #0 04/06/18 04/04/18 Beclomethasone Dipropionate [Qvar 75 mci IH DAILY PRN 05/04/19 05/04/19 Redihaler (40 mcg)] Pregabalin [Lyrica] 50 mg PO TID 05/04/19 - Allergies Allergies/Adverse Reactions: Allergies Allergy/AdvReac Type Severity Reaction Status Date / Time No Known Drug Allergies Allergy Verified 05/04/19 14:55 Review of Systems - Constitutional Constitutional: denies: Fatigue, Fever, Chills, Weakness - Cardiovascular Cariovascular: reports: Edema, Exertional dyspnea, Decr. exercise tolerance. denies: Chest pain - Respiratory Respiratory: reports: Cough, Wheezing, SOB at rest, SOB with exertion - Gastrointestinal Gastrointestinal: denies: Abdominal pain, Nausea, Vomiting - Genitourinary Genitourinary: denies: Dysuria, Frequency, Urgency - Musculoskeletal Musculoskeletal: denies: Muscle weakness - Integumentary Integumentary: denies: Rash - Neurological Neurological: reports: Numbness. denies: General weakness, Focal weakness - All Other Systems All Other Systems: reports: Reviewed and negative Prior Level of Functionality: Independent with ADL's. Uses a walker to ambulate. Exam - Vital Signs Reviewed Vital Signs: Yes Vital Signs: Vital Signs x48h Temp Pulse Resp BP Pulse Ox 05/04/19 22:17 81 19 212/103 H 93 05/04/19 21:45 81 19 171/87 H 93 05/04/19 21:36 81 19 178/95 H 93 05/04/19 21:00 81 18 183/77 H 93 05/04/19 19:58 79 18 05/04/19 19:41 80 22 190/90 H 93 05/04/19 18:48 36.7 C 80 24 184/96 H 93 05/04/19 14:55 36.5 C 96 22 153/100 H 94 - Physical Exam General Appearance: positive: No acute distress, Alert Eyes Bilateral: positive: Normal inspection ENT: positive: ENT inspection nml Neck: positive: Nml inspection Respiratory: positive: No respiratory distress, Other (Diminished breath sounds bilaterally). negative: Wheezes, Rales Cardiovascular: positive: Regular rate & rhythm, No murmur. negative: Tachycardia, Bradycardia, Systolic murmur, Diastolic murmur Abdomen: positive: Non-tender, No distention. negative: Tenderness, Guarding, Rebound Skin: positive: Color nml, No rash, Warm, Dry Extremities: positive: Nml appearance, Pedal edema (+2 pitting edema in bilateral lower extremties) Neurologic/Psychiatric: positive: Oriented x3, Other (No focal motor deficits). negative: Disoriented to person, Disoriented to place, Disoriented to time, Weakness Conclusion/Plan - Problem List (1) Dyspnea Conclusion/Plan: This appears to be secondary to pulmonary vascular congestion and concern is for new onset heart failure. She does not have a diagnosis of CHF and her last Echo showed preserved EF with indeterminate diastolic dysfunction. Her BNP is elevated >1000 and x-ray is suggestive of pulmonary edema. She does have worsening lower extremity edema as well. Saturating low 90's on room air. - Administer another dose of Lasix 40mg IV now - Recheck BNP in AM - Obtain Echo in AM - Elevated lower extremities - Low salt diet Qualifiers: Dyspnea type: shortness of breath Qualified Code(s): R06.02 - Shortness of breath; R06.00 - Dyspnea, unspecified; R06.01 - Orthopnea (2) Elevated troponin Conclusion/Plan: Suspect this is likely demand ischemia given her likely heart failure. Asymptomatic and EKG is without ischemic changes. - Trend troponin - Check Echo (3) Hypertension Conclusion/Plan: She has been hypertensive while in the ER. Presented with systolic in the 150's but did increased to as high as the 180's. She is on Losartan at home. - Resume Losartan and start IV Lasix - She may benefit from a beta bro but will not start at this time given this may be decompensated heart failure (4) Fibromyalgia Conclusion/Plan: Stable. Will continue her Cymbalta. (5) Neuropathy Conclusion/Plan: Stable. Will continue her Lyrica. - Lab Results Lab results reviewed: Yes Fish Bones: 05/04/19 15:21 05/04/19 15:21 - Diagnostic Imaging Results Diagnostic Imaging Results: positive: Final report reviewed, Read independently (Cardiomegaly with likely pulmonary vascular congestion. Possible tiny left pleural effusion.) - EKG Results EKG Interpreted Independently: Yes EKG Comparison: Unchanged from prior EKG EKG Findings: Sinus rhythm with prolonged [place] interval. No ischemic changes. Core Measures - Anticipated LOS I expect patient to be DC'd or transferred within 96 hours.: Yes - Issues Hospital Issues and Management Plan: Dyspnea secondary to suspected heart failure requiring IV diuresis - DVT/VTE - Prophylaxis VTE/DVT Device ordered at admit?: Yes VTE/DVT Prophylaxis med ordered at admit?: Yes
[2019-05-04] MEDS: SODIUM CHLORIDE FLUSH 0.9% 10 ML SYRINGE IVP SCH (23:21)
[2019-05-04] MEDS: LOSARTAN 50 MG TABLET PO SCH (23:22)
[2019-05-04] MEDS ORDERED: FLU VACC QS2019-20(6MOS UP)/PF 60 MCG/0.5 ML SYRINGE IM ONE (23:53)
[2019-05-04] MEDS: PREGABALIN 25 MG CAPSULE PO SCH (23:54)
[2019-05-05] MEDS: ACETAMINOPHEN 325 MG TABLET PO PRN ×3 (00:31→23:58)
[2019-05-05] MEDS: PREGABALIN 25 MG CAPSULE PO SCH ×3 (05:31→21:51)
[2019-05-05 05:54] LABS: BASOPHILS % (AUTO) 0.2 %; HGB - HEMOGLOBIN 13.7 g/dL (12.0-16.0); LYMPHOCYTES # (AUTO) 0.3 10^3/uL (1.5-3.5); LYMPHOCYTES % (AUTO) 5.2 %; MEAN CORPUSCULAR HGB CONC 32.1 g/dL (32.0-36.0); MEAN CORPUSCULAR VOLUME 93.4 fL (81.0-99.0); MEAN PLATELET VOLUME 11.1 fL (7.9-10.8); MONOCYTES # (AUTO) 0.2 10^3/uL (0.0-1.0); MONOCYTES % (AUTO) 2.9 %; NEUTROPHILS # (AUTO) 5.8 10^3/uL (1.5-6.6); NEUTROPHILS % (AUTO) 91.4 %; PLT - PLATELET COUNT 254 10^3/uL (130-450); RED BLOOD COUNT 4.57 10^6/uL (4.20-5.40); RED CELL DISTRIBUTION WIDTH 14.7 % (12.0-15.0); WHITE BLOOD COUNT 6.3 x10^3/uL (4.8-10.8)
[2019-05-05 06:06] LABS: CALCIUM 10.2 mg/dL (8.5-10.3); CREATININE 0.9 mg/dL (0.4-1.0); MAGNESIUM 1.9 mg/dL (1.7-2.8)
[2019-05-05] MEDS: PANTOPRAZOLE 40 MG TABLET PO SCH (06:51)
[2019-05-05] MEDS: SODIUM CHLORIDE FLUSH 0.9% 10 ML SYRINGE IVP SCH ×3 (08:08→23:59)
[2019-05-05] MEDS: FUROSEMIDE 40 MG/4 ML VIAL IVP SCH ×3 (08:08→20:04)
[2019-05-05] MEDS ORDERED: FUROSEMIDE 40 MG/4 ML VIAL IVP SCH (09:00)
[2019-05-05] MEDS: ASPIRIN EC 81 MG TABLET PO SCH (09:01)
[2019-05-05] MEDS: DULoxetine 30 MG CAPSULE PO SCH (09:01)
[2019-05-05] MEDS: LOSARTAN 50 MG TABLET PO SCH (09:01)
[2019-05-05] MEDS: SPIRONOLACTONE 25 MG TABLET PO SCH ×2 (09:01→20:03)
[2019-05-05] MEDS: HEPARIN 5,000 UNIT/ML VIAL SUBQ SCH ×2 (09:02→20:03)
[2019-05-05] MEDS: NYSTATIN CREAM 15 GM TUBE TOP SCH ×2 (11:13→20:03)
[2019-05-05] MEDS ORDERED: LORATADINE 10 MG TABLET PO PRN (13:21)
[2019-05-05] MEDS ORDERED: CALCIUM CITRATE 250 MG TABLET PO SCH (13:30)
--- NOTE | 2019-05-05 13:41 | PROVIDER PROGRESS NOTE ---
Subjective - Prog Note Date Prog Note Date: 05/05/19 - Subjective Pt reports feeling: Improved Subjective: pt feel better, breath is better. 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 pt denies fever, chill, chest pain. discussed with pt about her new ECHO test result, and answer her questions. Current Medications - Current Medications Current Medications: Active Medications Acetaminophen (Tylenol) 650 mg PO Q4HR PRN PRN Reason: Pain 1 to 4 Last Admin: 05/05/19 05:32 Dose: 650 mg Albuterol/Ipratropium (Duoneb) 3 ml INH Q4HR PRN PRN Reason: Wheezing Aspirin (Ecotrin) 81 mg PO DAILY [facility] Last Admin: 05/05/19 09:01 Dose: 81 mg Atorvastatin Calcium (Lipitor) 20 mg PO QPM TAI Benzonatate (Tessalon) 100 mg PO TID PRN PRN Reason: Cough Calcium Citrate () 500 mg PO Q2D [facility] Duloxetine HCl (Cymbalta) 30 mg PO DAILY [facility] Last Admin: 05/05/19 09:01 Dose: 30 mg Furosemide (Lasix Inj 40 Mg Vial) 40 mg IVP BID [facility] Last Admin: 05/05/19 12:46 Dose: Not Given Heparin Sodium (Porcine) () 5,000 unit SUBQ BID [facility] Last Admin: 05/05/19 09:02 Dose: 5,000 unit Loratadine (Claritin) 10 mg PO DAILY PRN PRN Reason: Allergy Symptoms Losartan Potassium (Cozaar) 100 mg PO DAILY [facility] Last Admin: 05/05/19 09:01 Dose: 100 mg Methocarbamol (Robaxin) 750 mg PO TID PRN PRN Reason: Spasms Nystatin (Mycostatin Cream) 1 applic TOP BID [facility] Last Admin: 05/05/19 11:13 Dose: 1 applic Ondansetron HCl (Zofran Inj) 4 mg IVP Q6HR PRN PRN Reason: Nausea / Vomiting Pantoprazole Sodium (Protonix) 40 mg PO QDAC [facility] Last Admin: 05/05/19 06:51 Dose: 40 mg Pregabalin (Lyrica) 50 mg PO TID [facility] Last Admin: 05/05/19 05:31 Dose: 50 mg Sodium Chloride (Normal Saline Flush 0.9%) 10 ml IVP PRN PRN PRN Reason: NEEDED PER PROVIDER ORDERS Sodium Chloride (Normal Saline Flush 0.9%) 10 ml IVP 0100,0900,1700 [facility] Last Admin: 05/05/19 08:08 Dose: 10 ml Spironolactone (Aldactone) 25 mg PO BID [facility] Last Admin: 05/05/19 09:01 Dose: 25 mg Terbinafine HCl (Lamisil) 250 mg PO DAILY [facility] Cetirizine HCl [Zyrtec] 10 mg PO DAILY PRN 04/27/14 Gluc HCl/Csa/Collagen/Hyalur A [Glucosamine Chondroitin Cap] 1 each PO BID 04/27/14 Multivitamin [Multi-Vitamin Daily] 1 each PO DAILY 04/27/14 Omeprazole 20 mg PO QDAC 04/27/14 Aspirin [Aspir-Low] 81 mg PO DAILY 09/25/16 Ubidecarenone [Coenzyme Q-10] 10 mg PO DAILY 04/04/18 Beclomethasone Dipropionate [Qvar Redihaler (40 mcg)] 75 mci IH DAILY PRN 05/04/19 Pregabalin [Lyrica] 50 mg PO TID 05/04/19 Methocarbamol 750 mg PO TID PRN 05/05/19 Terbinafine [Lamisil] 250 mg PO DAILY 05/05/19 Objective - Vital Signs/Intake & Output Reviewed Vital Signs: Yes Vital Signs: Vital Signs x48h Temp Pulse Resp BP Pulse Ox 05/05/19 12:57 36.4 C L 76 20 156/73 H 96 05/05/19 08:09 36.6 C 70 20 178/77 H 96 Intake & Output: Intake & Output 05/02/19 05/03/19 05/04/19 05/05/19 23:59 23:59 23:59 23:59 Intake Total 200 Output Total 2950 Balance -2750 - Objective General Appearance: positive: No acute distress, Alert. negative: Lethargic Eyes Bilateral: positive: Normal inspection, PERRL, No lid inflammation, Conjunctivae nml ENT: positive: ENT inspection nml, Pharynx nml, No signs of dehydration. negative: Purulent nasal drainage, Pharyngeal erythema, Oral lesions Neck: positive: Nml inspection, Thyroid nml, No JVD, Trachea midline. negative: Thyromegaly, Lymphadenopathy (R), Lymphadenopathy (L), Stiff neck, Swelling/bruising, Tracheal deviation Respiratory: positive: Chest non-tender, No respiratory distress, Breath sounds nml. negative: Wheezes, Rales, Rhonchi Cardiovascular: positive: Regular rate & rhythm, No murmur, No gallop. nega tive: Irregularly irregular, Extrasystoles, Tachycardia, Bradycardia, JVD present, Systolic murmur, Diastolic murmur Peripheral Pulses: 2+ Radial (R), 2+ Radial (L), 2+ Dorsalis pedis (R), 2+ Dorsalis pedis (L) Abdomen: positive: Non-tender, No organomegaly, Nml bowel sounds, No distention. negative: Tenderness, Guarding, Rebound Back: positive: Nml inspection. negative: CVA tenderness (R), CVA tenderness (L) Skin: positive: Color nml, No rash, Warm, Dry. negative: Cyanosis, Diaphoresis, Pallor Extremities: positive: Non-tender, Full ROM, Nml appearance, Pedal edema. negative: Calf tenderness, Joint swelling, Tiera's sign/cords Neurologic/Psychiatric: positive: Oriented x3, Sensation nml, Mood/affect nml. negative: Weakness, Sensory loss, Facial droop, Slurred/abnml speech, Depressed mood/affect - Lab Results Fish Bones: 05/05/19 05:30 05/05/19 05:30 Other Labs: Lab Results x24hrs 05/05/19 05/05/19 05/05/19 Range/Units 05:30 05:30 05:30 WBC 6.3 (4.8-10.8) x10^3/uL RBC 4.57 (4.20-5.40) 10^6/uL Hgb 13.7 (12.0-16.0) g/dL Hct 42.7 (37.0-47.0) % MCV 93.4 (81.0-99.0) fL MCH 30.0 (27.0-31.0) pg MCHC 32.1 (32.0-36.0) g/dL RDW 14.7 (12.0-15.0) % Plt Count 254 (130-450) 10^3/uL MPV 11.1 H (7.9-10.8) fL Neut # (Auto) 5.8 (1.5-6.6) 10^3/uL Lymph # (Auto) 0.3 L (1.5-3.5) 10^3/uL [place] # (Auto) 0.2 (0.0-1.0) 10^3/uL Eos # (Auto) 0.0 (0.0-0.7) 10^3/uL Baso # (Auto) 0.0 (0.0-0.1) 10^3/uL Absolute Nucleated RBC 0.00 x10^3/uL Nucleated RBC % 0.0 /100WBC Sodium 136 (135-145) mmol/L Potassium 4.1 (3.5-5.0) mmol/L Chloride 97 L (101-111) mmol/L Carbon Dioxide 30 (21-32) mmol/L Anion Gap 9.0 (6-13) BUN 27 H (6-20) mg/dL Creatinine 0.9 (0.4-1.0) mg/dL Estimated GFR (MDRD) 61 L (>89) Glucose 146 H (70-100) mg/dL Calcium 10.2 (8.5-10.3) mg/dL Magnesium 1.9 (1.7-2.8) mg/dL Total Bilirubin (0.2-1.0) mg/dL AST (10-42) IU/L ALT (10-60) IU/L Alkaline Phosphatase (42-121) IU/L Troponin I High Sens (2.3-14.8) pg/mL B-Natriuretic Peptide 1527 H (5-100) pg/mL Total Protein (6.7-8.2) g/dL Albumin (3.2-5.5) g/dL Globulin (2.1-4.2) g/dL Albumin/Globulin Ratio (1.0-2.2) Lipase (22-51) U/L 05/05/19 05/04/19 05/04/19 Range/Units 05:30 23:15 19:32 WBC (4.8-10.8) x10^3/uL RBC (4.20-5.40) 10^6/uL Hgb (12.0-16.0) g/dL Hct (37.0-47.0) % MCV (81.0-99.0) fL MCH (27.0-31.0) pg MCHC (32.0-36.0) g/dL RDW (12.0-15.0) % Plt Count (130-450) 10^3/uL MPV (7.9-10.8) fL Neut # (Auto) (1.5-6.6) 10^3/uL Lymph # (Auto) (1.5-3.5) 10^3/uL [place] # (Auto) (0.0-1.0) 10^3/uL Eos # (Auto) (0.0-0.7) 10^3/uL Baso # (Auto) (0.0-0.1) 10^3/uL Absolute Nucleated RBC x10^3/uL Nucleated RBC % /100WBC Sodium (135-145) mmol/L Potassium (3.5-5.0) mmol/L Chloride (101-111) mmol/L Carbon Dioxide (21-32) mmol/L Anion Gap (6-13) BUN (6-20) mg/dL Creatinine (0.4-1.0) mg/dL Estimated GFR (MDRD) (>89) Glucose (70-100) mg/dL Calcium (8.5-10.3) mg/dL Magnesium (1.7-2.8) mg/dL Total Bilirubin (0.2-1.0) mg/dL AST (10-42) IU/L ALT (10-60) IU/L Alkaline Phosphatase (42-121) IU/L Troponin I High Sens 53.1 H* 56.3 H* (2.3-14.8) pg/mL B-Natriuretic Peptide 1057 H (5-100) pg/mL Total Protein (6.7-8.2) g/dL Albumin (3.2-5.5) g/dL Globulin (2.1-4.2) g/dL Albumin/Globulin Ratio (1.0-2.2) Lipase (22-51) U/L 05/04/19 05/04/19 05/04/19 Range/Units 19:32 19:32 15:21 WBC (4.8-10.8) x10^3/uL RBC (4.20-5.40) 10^6/uL Hgb (12.0-16.0) g/dL Hct (37.0-47.0) % MCV (81.0-99.0) fL MCH (27.0-31.0) pg MCHC (32.0-36.0) g/dL RDW (12.0-15.0) % Plt Count (130-450) 10^3/uL MPV (7.9-10.8) fL Neut # (Auto) (1.5-6.6) 10^3/uL Lymph # (Auto) (1.5-3.5) 10^3/uL [place] # (Auto) (0.0-1.0) 10^3/uL Eos # (Auto) (0.0-0.7) 10^3/uL Baso # (Auto) (0.0-0.1) 10^3/uL Absolute Nucleated RBC x10^3/uL Nucleated RBC % /100WBC Sodium 136 (135-145) mmol/L Potassium 4.0 (3.5-5.0) mmol/L Chloride 104 (101-111) mmol/L Carbon Dioxide 25 (21-32) mmol/L Anion Gap 7.0 (6-13) BUN 29 H (6-20) mg/dL Creatinine 0.8 (0.4-1.0) mg/dL Estimated GFR (MDRD) 70 L (>89) Glucose 176 H (70-100) mg/dL Calcium 10.2 (8.5-10.3) mg/dL Magnesium 2.0 (1.7-2.8) mg/dL Total Bilirubin 0.4 (0.2-1.0) mg/dL AST 17 (10-42) IU/L ALT 16 (10-60) IU/L Alkaline Phosphatase 76 (42-121) IU/L Troponin I High Sens 48.1 H* (2.3-14.8) pg/mL B-Natriuretic Peptide (5-100) pg/mL Total Protein 7.0 (6.7-8.2) g/dL Albumin 3.8 (3.2-5.5) g/dL Globulin 3.2 (2.1-4.2) g/dL Albumin/Globulin Ratio 1.2 (1.0-2.2) Lipase 31 (22-51) U/L 05/04/19 Range/Units 15:21 WBC 7.5 (4.8-10.8) x10^3/uL RBC 4.35 (4.20-5.40) 10^6/uL Hgb 13.1 (12.0-16.0) g/dL Hct 40.7 (37.0-47.0) % MCV 93.6 (81.0-99.0) fL MCH 30.1 (27.0-31.0) pg MCHC 32.2 (32.0-36.0) g/dL RDW 14.8 (12.0-15.0) % Plt Count 236 (130-450) 10^3/uL MPV 11.2 H (7.9-10.8) fL Neut # (Auto) 6.3 (1.5-6.6) 10^3/uL Lymph # (Auto) 0.7 L (1.5-3.5) 10^3/uL [place] # (Auto) 0.4 (0.0-1.0) 10^3/uL Eos # (Auto) 0.1 (0.0-0.7) 10^3/uL Baso # (Auto) 0.0 (0.0-0.1) 10^3/uL Absolute Nucleated RBC 0.00 x10^3/uL Nucleated RBC % 0.0 /100WBC Sodium (135-145) mmol/L Potassium (3.5-5.0) mmol/L Chloride (101-111) mmol/L Carbon Dioxide (21-32) mmol/L Anion Gap (6-13) BUN (6-20) mg/dL Creatinine (0.4-1.0) mg/dL Estimated GFR (MDRD) (>89) Glucose (70-100) mg/dL Calcium (8.5-10.3) mg/dL Magnesium (1.7-2.8) mg/dL Total Bilirubin (0.2-1.0) mg/dL AST (10-42) IU/L ALT (10-60) IU/L Alkaline Phosphatase (42-121) IU/L Troponin I High Sens (2.3-14.8) pg/mL B-Natriuretic Peptide (5-100) pg/mL Total Protein (6.7-8.2) g/dL Albumin (3.2-5.5) g/dL Globulin (2.1-4.2) g/dL Albumin/Globulin Ratio (1.0-2.2) Lipase (22-51) U/L ABX Reporting Has patient been on IV antibiotics over the past 48 hours?: No Sepsis Event Note (H) - Evaluation Current Stage of Sepsis: Ruled out Assessment/Plan - Problem List (1) New onset of congestive heart failure Impression: today ECHO reveals EF45% with normal right heart pressure, pt had 65% EF about 1 0 months ago. ECHO also found pt had moderate to severe aortic regurgitation. one of reasons is pt has medical non compliance. pt report she did not take her Lasix as scheduled. she did not take her Lasix for quite a long time. BNP increase to 1500 from admission 1000 even. 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 pt has 96% on one liter of O2. pt feel her SOB is better controlled continue treat underline new onset of systolic heart failure supplement of O2 as needed continue breath treatment as needed (3) Elevated troponin Conclusion/Plan: troponin value is slightly reduced and stable. asymptomatic without chest pain, EKG is without ischemic change, agree it is likely demand ischemia continue tele and vital monitor continue home meds Aspirin 81mg daily (4) Hypertension Conclusion/Plan: stable, continue home meds Losartan, IV of Lasix and home spironolactone vital monitor (5) Fibromyalgia Conclusion/Plan: Stable. Will continue her Cymbalta. (6) Neuropathy Conclusion/Plan: Stable. Will continue her Lyrica. (7) medical non-compliance pt report she did not take her Lasix for quite long time, now she is fluid overloaded with clinic SOB. discussed and educate pt the new diagnosis and importance for medical compliance. pt state she understand and will do medical compliance.
[2019-05-05] MEDS: ATORVASTATIN 40 MG TABLET PO SCH (20:03)
[2019-05-06] MEDS: CARVEDILOL 3.125 MG TABLET PO SCH ×3 (01:05→20:06)
[2019-05-06] MEDS: METHOCARBAMOL 500 MG TABLET PO PRN ×2 (02:10→09:48)
[2019-05-06] MEDS: ACETAMINOPHEN 325 MG TABLET PO PRN ×3 (04:59→15:44)
[2019-05-06] MEDS: PANTOPRAZOLE 40 MG TABLET PO SCH (07:40)
[2019-05-06] MEDS: PREGABALIN 25 MG CAPSULE PO SCH ×3 (07:40→20:05)
[2019-05-06 08:04] LABS: BASOPHILS # (AUTO) 0.1 10^3/uL (0.0-0.1); BASOPHILS % (AUTO) 0.6 %; EOSINOPHILS # (AUTO) 0.1 10^3/uL (0.0-0.7); EOSINOPHILS % (AUTO) 1.5 %; HGB - HEMOGLOBIN 13.8 g/dL (12.0-16.0); LYMPHOCYTES # (AUTO) 1.5 10^3/uL (1.5-3.5); LYMPHOCYTES % (AUTO) 18.6 %; MEAN CORPUSCULAR HEMOGLOBIN 29.6 pg (27.0-31.0); MEAN CORPUSCULAR VOLUME 95.5 fL (81.0-99.0); MEAN PLATELET VOLUME 11.2 fL (7.9-10.8); MONOCYTES % (AUTO) 12.8 %; NEUTROPHILS # (AUTO) 5.4 10^3/uL (1.5-6.6); NEUTROPHILS % (AUTO) 66.1 %; PLT - PLATELET COUNT 253 10^3/uL (130-450); RED BLOOD COUNT 4.66 10^6/uL (4.20-5.40); RED CELL DISTRIBUTION WIDTH 15.3 % (12.0-15.0); WHITE BLOOD COUNT 8.1 x10^3/uL (4.8-10.8)
[2019-05-06 08:57] LABS: CALCIUM 9.8 mg/dL (8.5-10.3); CREATININE 0.9 mg/dL (0.4-1.0)
[2019-05-06] MEDS ORDERED: DULoxetine 30 MG CAPSULE PO SCH (09:00)
[2019-05-06] MEDS: LOSARTAN 50 MG TABLET PO SCH (09:28)
[2019-05-06] MEDS: ASPIRIN EC 81 MG TABLET PO SCH (09:28)
[2019-05-06] MEDS: TERBINAFINE 250 MG TABLET PO SCH (09:28)
[2019-05-06] MEDS: DULoxetine 30 MG CAPSULE PO SCH (09:30)
[2019-05-06] MEDS: SPIRONOLACTONE 25 MG TABLET PO SCH ×2 (09:30→20:05)
[2019-05-06] MEDS: FUROSEMIDE 40 MG/4 ML VIAL IVP SCH ×2 (09:31→20:12)
[2019-05-06] MEDS: SODIUM CHLORIDE FLUSH 0.9% 10 ML SYRINGE IVP SCH ×2 (09:32→16:34)
[2019-05-06] MEDS: SODIUM CHLORIDE FLUSH 0.9% 10 ML SYRINGE IVP PRN ×2 (09:32→20:04)
[2019-05-06] MEDS: HEPARIN 5,000 UNIT/ML VIAL SUBQ SCH ×2 (09:48→20:09)
[2019-05-06] MEDS: NYSTATIN CREAM 15 GM TUBE TOP SCH ×2 (12:55→20:12)
--- NOTE | 2019-05-06 14:06 | PROVIDER PROGRESS NOTE ---
Subjective - Prog Note Date Prog Note Date: 05/06/19 - Subjective Pt reports feeling: Improved Subjective: pt report she felt better for her breath. she had no respiratory distress on room air. she denies chest pain, fever, chill. Current Medications - Current Medications Current Medications: Active Medications Acetaminophen (Tylenol) 650 mg PO Q4HR PRN PRN Reason: Pain 1 to 4 Last Admin: 05/06/19 09:48 Dose: 650 mg Albuterol/Ipratropium (Duoneb) 3 ml INH Q4HR PRN PRN Reason: Wheezing Aspirin (Ecotrin) 81 mg PO DAILY [facility] Last Admin: 05/06/19 09:28 Dose: 81 mg Atorvastatin Calcium (Lipitor) 20 mg PO QPM [facility] Last Admin: 05/05/19 20:03 Dose: 20 mg Benzonatate (Tessalon) 100 mg PO TID PRN PRN Reason: Cough Calcium Citrate () 500 mg PO Q2D [facility] Last Admin: 05/05/19 14:54 Dose: 500 mg Carvedilol (Coreg) 3.125 mg PO BID [facility] Last Admin: 05/06/19 09:30 Dose: 3.125 mg Duloxetine HCl (Cymbalta) 30 mg PO DAILY [facility] Last Admin: 05/06/19 09:30 Dose: 30 mg Furosemide (Lasix Inj 40 Mg Vial) 40 mg IVP BID [facility] Last Admin: 05/06/19 09:31 Dose: 40 mg Heparin Sodium (Porcine) () 5,000 unit SUBQ BID [facility] Last Admin: 05/06/19 09:48 Dose: 5,000 unit Loratadine (Claritin) 10 mg PO DAILY PRN PRN Reason: Allergy Symptoms Losartan Potassium (Cozaar) 100 mg PO DAILY [facility] Last Admin: 05/06/19 09:28 Dose: 100 mg Methocarbamol (Robaxin) 750 mg PO TID PRN PRN Reason: Spasms Last Admin: 05/06/19 09:48 Dose: 750 mg Nystatin (Mycostatin Cream) 1 applic TOP BID [facility] Last Admin: 05/06/19 12:55 Dose: 1 applic Ondansetron HCl (Zofran Inj) 4 mg IVP Q6HR PRN PRN Reason: Nausea / Vomiting Pantoprazole Sodium (Protonix) 40 mg PO QDAC [facility] Last Admin: 05/06/19 07:40 Dose: 40 mg Pregabalin (Lyrica) 50 mg PO TID [facility] Last Admin: 05/06/19 07:40 Dose: 50 mg Sodium Chloride (Normal Saline Flush 0.9%) 10 ml IVP PRN PRN PRN Reason: NEEDED PER PROVIDER ORDERS Last Admin: 05/06/19 09:32 Dose: 10 ml Sodium Chloride (Normal Saline Flush 0.9%) 10 ml IVP 0100,0900,1700 [facility] Last Admin: 05/06/19 09:32 Dose: 10 ml Spironolactone (Aldactone) 25 mg PO BID [facility] Last Admin: 05/06/19 09:30 Dose: 25 mg Terbinafine HCl (Lamisil) 250 mg PO DAILY [facility] Last Admin: 05/06/19 09:28 Dose: 250 mg Cetirizine HCl [Zyrtec] 10 mg PO DAILY PRN 04/27/14 Gluc HCl/Csa/Collagen/Hyalur A [Glucosamine Chondroitin Cap] 1 each PO BID 04/27/14 Multivitamin [Multi-Vitamin Daily] 1 each PO DAILY 04/27/14 Omeprazole 20 mg PO QDAC 04/27/14 Aspirin [Aspir-Low] 81 mg PO DAILY 09/25/16 Ubidecarenone [Coenzyme Q-10] 10 mg PO DAILY 04/04/18 Beclomethasone Dipropionate [Qvar Redihaler (40 mcg)] 75 mci IH DAILY PRN 05/04/19 Pregabalin [Lyrica] 50 mg PO TID 05/04/19 Methocarbamol 750 mg PO TID PRN 05/05/19 Terbinafine [Lamisil] 250 mg PO DAILY 05/05/19 Objective - Vital Signs/Intake & Output Reviewed Vital Signs: Yes Vital Signs: Vital Signs x48h Temp Pulse Pulse Pulse Resp BP BP 05/06/19 11:56 36.8 C 63 18 107/90 H 05/06/19 10:24 53 L 78 143/63 H 05/06/19 08:15 36.8 C 67 18 139/67 H Pulse Ox 05/06/19 11:56 94 05/06/19 10:24 05/06/19 08:15 93 Intake & Output: Intake & Output 05/03/19 05/04/19 05/05/19 05/06/19 23:59 23:59 23:59 23:59 Intake Total 560 880 Output Total 6379 0830 Balance -0385 -760 - Objective General Appearance: positive: No acute distress, Alert. negative: Lethargic Eyes Bilateral: positive: Normal inspection, PERRL, No lid inflammation, Conjunctivae nml ENT: positive: ENT inspection nml, Pharynx nml, No signs of dehydration. negative: Purulent nasal drainage, Pharyngeal erythema, Oral lesions Neck: positive: Nml inspection, Thyroid nml, No JVD. negative: Trachea midline, Thyromegaly, Lymphadenopathy (R), Lymphadenopathy (L), Stiff neck, Swelling/bruising, Tracheal deviation Respiratory: positive: Chest non-tender, No respiratory distress. negative: Wheezes, Rales, Rhonchi Cardiovascular: positive: Regular rate & rhythm, No murmur, No gallop. negative: Irregularly irregular, Extrasystoles, Tachycardia, Bradycardia, JVD present, Systolic murmur, Diastolic murmur Peripheral Pulses: 2+ Radial (R), 2+ Radial (L), 2+ Dorsalis pedis (R), 2+ Dorsalis pedis (L) Abdomen: positive: Non-tender, No organomegaly, Nml bowel sounds, No distention. negative: Tenderness, Guarding, Rebound Back: positive: Nml inspection. negative: CVA tenderness (R), CVA tenderness (L) Skin: positive: Color nml, No rash, Warm, Dry. negative: Cyanosis, Diaphoresis, Pallor Extremities: positive: Non-tender, Full ROM, Nml appearance. negative: Calf tenderness, Joint swelling, Tiera's sign/cords Neurologic/Psychiatric: positive: Oriented x3, Sensation nml, Mood/affect nml. negative: Weakness, Sensory loss, Facial droop, Slurred/abnml speech, Depressed mood/affect - Lab Results Fish Bones: 05/06/19 07:51 05/06/19 07:51 Other Labs: Lab Results x24hrs 05/06/19 05/06/19 05/06/19 Range/Units 08:20 07:51 07:51 WBC (4.8-10.8) x10^3/uL RBC (4.20-5.40) 10^6/uL Hgb (12.0-16.0) g/dL Hct (37.0-47.0) % MCV (81.0-99.0) fL MCH (27.0-31.0) pg MCHC (32.0-36.0) g/dL RDW (12.0-15.0) % Plt Count (130-450) 10^3/uL MPV (7.9-10.8) fL Neut # (Auto) (1.5-6.6) 10^3/uL Lymph # (Auto) (1.5-3.5) 10^3/uL Gila # (Auto) (0.0-1.0) 10^3/uL Eos # (Auto) (0.0-0.7) 10^3/uL Baso # (Auto) (0.0-0.1) 10^3/uL Absolute Nucleated RBC x10^3/uL Nucleated RBC % /100WBC Sodium 136 (135-145) mmol/L Potassium 3.6 (3.5-5.0) mmol/L Chloride 94 L (101-111) mmol/L Carbon Dioxide 31 (21-32) mmol/L Anion Gap 11.0 (6-13) BUN 30 H (6-20) mg/dL Creatinine 0.9 (0.4-1.0) mg/dL Estimated GFR (MDRD) 61 L (>89) Glucose 142 H (70-100) mg/dL Calcium 9.8 (8.5-10.3) mg/dL Troponin I High Sens 44.0 H* (2.3-14.8) pg/mL B-Natriuretic Peptide 451 H (5-100) pg/mL 05/06/19 Range/Units 07:51 WBC 8.1 (4.8-10.8) x10^3/uL RBC 4.66 (4.20-5.40) 10^6/uL Hgb 13.8 (12.0-16.0) g/dL Hct 44.5 (37.0-47.0) % MCV 95.5 (81.0-99.0) fL MCH 29.6 (27.0-31.0) pg MCHC 31.0 L (32.0-36.0) g/dL RDW 15.3 H (12.0-15.0) % Plt Count 253 (130-450) 10^3/uL MPV 11.2 H (7.9-10.8) fL Neut # (Auto) 5.4 (1.5-6.6) 10^3/uL Lymph # (Auto) 1.5 (1.5-3.5) 10^3/uL Gila # (Auto) 1.0 (0.0-1.0) 10^3/uL Eos # (Auto) 0.1 (0.0-0.7) 10^3/uL Baso # (Auto) 0.1 (0.0-0.1) 10^3/uL Absolute Nucleated RBC 0.00 x10^3/uL Nucleated RBC % 0.0 /100WBC Sodium (135-145) mmol/L Potassium (3.5-5.0) mmol/L Chloride (101-111) mmol/L Carbon Dioxide (21-32) mmol/L Anion Gap (6-13) BUN (6-20) mg/dL Creatinine (0.4-1.0) mg/dL Estimated GFR (MDRD) (>89) Glucose (70-100) mg/dL Calcium (8.5-10.3) mg/dL Troponin I High Sens (2.3-14.8) pg/mL B-Natriuretic Peptide (5-100) pg/mL ABX Reporting Has patient been on IV antibiotics over the past 48 hours?: No Sepsis Event Note (H) - Evaluation Current Stage of Sepsis: Ruled out Assessment/Plan - Problem List (1) New onset of congestive heart failure Impression: (1) New onset of systolic congestive heart failure Impression: 05/06 pt feel breath better, pt has 94% sats on room air. 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 ECHO also found pt had moderate to severe aortic regurgitation. one of reasons is pt has medical non compliance. pt report she did not take her Lasix as scheduled. she did not take her Lasix for quite a long time. BNP increase to 1500 from admission 1000 even. 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 pt has 94% sats on room air. continue treat underline new onset of systolic heart failure supplement of O2 as needed 05/05 improved. pt has 96% on one liter of O2. pt feel her SOB is better controlled continue treat underline new onset of systolic heart failure supplement of O2 as needed continue breath treatment as needed (3) Elevated troponin Conclusion/Plan: 05/06 troponin is continue reduced, it is likely demand ischemia continue tele and vital monitor continue home meds Aspirin 81mg daily troponin value is slightly reduced and stable. asymptomatic without chest pain, EKG is without ischemic change, agree it is likely demand ischemia continue tele and vital monitor continue home meds Aspirin 81mg daily (4) Hypertension Conclusion/Plan: stable, continue home meds Losartan, IV of Lasix and home spironolactone vital monitor (5) Fibromyalgia Conclusion/Plan: Stable. Will continue her Cymbalta. (6) Neuropathy Conclusion/Plan: Stable. Will continue her Lyrica. (7) weakness pt present weakness and consistent laying at bed. consult with PT/OT, followup recommendations (8) SVT on exertion pt had twice SVT on exertion with PT or walk with nurse or going to bathroom with HR around 120-160. pt felt shortness of breath, palpitation when she had SVT. now pt is on 3.125 mg Creg bid. pt's HR is controlled around 70 now in the tele on the rest. pt's BP is stable will adjust Creg dosage to control SVT as needed (9) medical non-compliance pt report she did not take her Lasix for quite long time, now she is fluid overloaded with clinic SOB. discussed and educate pt the new diagnosis and importance for medical compliance. pt state she understand and will do medical compliance.
[2019-05-06] MEDS: ATORVASTATIN 40 MG TABLET PO SCH (20:04)
[2019-05-07] MEDS: ACETAMINOPHEN 325 MG TABLET PO PRN ×2 (00:35→09:20)
[2019-05-07] MEDS: METHOCARBAMOL 500 MG TABLET PO PRN ×2 (00:35→09:20)
[2019-05-07] MEDS: SODIUM CHLORIDE FLUSH 0.9% 10 ML SYRINGE IVP SCH ×2 (00:37→09:21)
[2019-05-07 05:36] LABS: BASOPHILS % (AUTO) 0.5 %; EOSINOPHILS # (AUTO) 0.2 10^3/uL (0.0-0.7); EOSINOPHILS % (AUTO) 2.4 %; HGB - HEMOGLOBIN 13.9 g/dL (12.0-16.0); LYMPHOCYTES # (AUTO) 1.6 10^3/uL (1.5-3.5); LYMPHOCYTES % (AUTO) 19.6 %; MEAN CORPUSCULAR HEMOGLOBIN 29.8 pg (27.0-31.0); MEAN CORPUSCULAR HGB CONC 31.9 g/dL (32.0-36.0); MEAN CORPUSCULAR VOLUME 93.4 fL (81.0-99.0); MEAN PLATELET VOLUME 11.1 fL (7.9-10.8); MONOCYTES # (AUTO) 0.9 10^3/uL (0.0-1.0); NEUTROPHILS # (AUTO) 5.3 10^3/uL (1.5-6.6); NEUTROPHILS % (AUTO) 66.1 %; PLT - PLATELET COUNT 252 10^3/uL (130-450); RED BLOOD COUNT 4.67 10^6/uL (4.20-5.40); RED CELL DISTRIBUTION WIDTH 14.9 % (12.0-15.0)
[2019-05-07 05:41] LABS: CALCIUM 9.6 mg/dL (8.5-10.3)
[2019-05-07] MEDS: PANTOPRAZOLE 40 MG TABLET PO SCH (06:13)
[2019-05-07] MEDS: PREGABALIN 25 MG CAPSULE PO SCH (06:13)
[2019-05-07] MEDS ORDERED: POTASSIUM CHLORIDE 20 MEQ TABLET PO ONE (07:02)
[2019-05-07] MEDS: TERBINAFINE 250 MG TABLET PO SCH (09:20)
[2019-05-07] MEDS: ASPIRIN EC 81 MG TABLET PO SCH (09:20)
[2019-05-07] MEDS: SPIRONOLACTONE 25 MG TABLET PO SCH (09:20)
[2019-05-07] MEDS: CARVEDILOL 3.125 MG TABLET PO SCH (09:20)
[2019-05-07] MEDS: LOSARTAN 50 MG TABLET PO SCH (09:21)
[2019-05-07] MEDS: HEPARIN 5,000 UNIT/ML VIAL SUBQ SCH (09:21)
[2019-05-07] MEDS: FUROSEMIDE 40 MG/4 ML VIAL IVP SCH (09:21)
[2019-05-07] MEDS: DULoxetine 30 MG CAPSULE PO SCH (09:21)
[2019-05-07] MEDS ORDERED: POLYETHYLENE GLYCOL 3350 17 GM PACKET PO SCH (10:00)
--- NOTE | 2019-05-07 10:18 | Discharge Plan ---
Discharge Plan Problem Reviewed?: Yes Disposition: Home, Self Care Condition: Good Prescriptions: Carvedilol [Coreg] 6.25 mg PO BID #60 tablet Magnesium Oxide [Magnesium] 250 mg PO DAILY #30 tablet Potassium Chloride [Micro-K] 10 meq PO 0800 #30 capsule Diet: Low Sodium Activity Restrictions: Activity as Tolerated Shower Restrictions: No Driving Restrictions: No Instruction Topics: Carvedilol tablets, Heart Failure Tracking Weight, Heart Failure Warning Signs, Heart Failure Meds Control Health Concerns: You came to the emergency room because you been having a few days of shortness of breath and your legs were getting swollen. It been going on for a few weeks but getting worse over a few days. You are already on medication for congestive heart failure but had stopped taking your diuretics. As such, we think you went back in the congestive heart failure because your heart pump could not pump the retained fluid anymore and was backing up fluid into your lungs and into your body. Plan of Treatment: 1. Treatment consisted of giving you medication that made you urinate. That got rid of the excess of fluid. At home you take spironolactone twice a day as well as Lasix once a day. Please continue that at home. 2. We repeated your heart ultrasound, called an echocardiogram, and your aortic valve is not working very well. It has severe regurgitation. So when your heart relaxes quite a bit of blood pumps back into your heart because your valve is not shutting. Care Goals: 1. Your foremost goal is to maintain control of your fluid status so that you do not go back into congestive heart failure. Always take your medications as instructed and if you change how you do this, let Dr. Marte know. 2. Take Lasix once a day, and spironolactone twice a day. 3. Weigh yourself daily. If your weight increases by 3 pounds over the course of a day, you will need to take an extra Lasix tablet. Continue taking the extra Lasix tablet until you are back down to your baseline weight. 4. Please have Dr. Marte refer you to Cardiology. [facility] sends Cardiologists here to the medical ambulatory clinic at the hospital. [place] 5. Always eat a low-salt diet. Aim for less than 2000 mg a day of salt or less than 2 g. That means no potato chips, ham, canned soups, frozen foods, etc. 6. While here, you did have spontaneous extra heart rates. Your heart would speed up and then go back to normal within a few seconds. 1 of the medicines that helps with congestive heart failure is helping with the fast heart rate. If you have palpitations for longer than 30 minutes at a time, notify your primary care provider or come to the emergency room if you are very short of breath. 7. Take potassium and magnesium supplements as prescribed since the water pills will llamas those electrolytes out into your urine. No Smoking: If you smoke, Please STOP! Call for help. Follow-up with: Ruel Marte MD [Primary Care Provider] -
[2019-05-07] MEDS ORDERED: FLU VACC QS2019-20(6MOS UP)/PF 60 MCG/0.5 ML SYRINGE IM ONE (11:00)
--- NOTE | 2019-05-07 11:25 | DISCHARGE SUMMARY ---
"Discharge Summary Admit Date: 05/04/19 Discharge Date: 05/07/19 Discharging Provider: Bren Morales Primary Care Provider: Ruel Marte Code Status: Attempt Resuscitation Condition at Discharge: Fair Discharge Disposition: 01 Home, Self Care - DIAGNOSES Admission Diagnoses: (Acute) 1). New onset systolic heart failure (EF 45%) 2). Moderate to severe aortic regurgitation 3). Dyspnea 4). Elevated troponin 5). Supraventricular tachycardia (Chronic) 6). Essential (primary) hypertension 7). Polyneuropathy 8). Weakness 9). Fibromyalgia Discharge Diagnoses with Status of Each Condition: 1). New onset systolic heart failure (EF 45%) 2). Moderate to severe aortic regurgitation 3). PSVT (Chronic) 3). Essential (primary) hypertension 4). Polyneuropathy 5). Weakness 6). Fibromyalgia 7). Noncompliance - HPI History of Present Illness: (Obtained from Dr. Reid Mondragon's H&P from 05/04): This is a 78 year old female with a past medical history significant for hypertension and neuropathy who presents from complaining of worsening shortness of breath over the past three weeks. She has been progressively becoming dyspneic with worsening lower extremity edema. She can't tell how much more swollen her legs are as they are edematous at baseline but she feels the edema is more prominent. She endorses associated orthopnea and occasional nonproductive cough. She denies chest pain, fevers, chills. She reports wheezing but denies a history of COPD or asthma. She is a nonsmoker. She has been prescribed Lasix in the past but she only takes it as needed. She has not taken it in a couple of weeks. Denies a history of heart failure. She reports a low salt diet. In the ER, she was hypertensive and tachypnic but was not hypoxic. She was saturating 94% on room air. Labs were significant for an elevated BNP of 1057 and troponin of 48.1. Her EKG was without ischemic changes and was unchanged compared to prior. She received IV Lasix without improvement in her symptoms. She then became more hypertensive with systolic's in the 170's to 190's. Medicine was then consulted for admission. Of note, I did speak with the patient regarding code status. She would like to be a full code but expressed that she would not want to be dependent on a ventilator fci. - CONSULTS | PROCEDURES Procedures: 1). CXR: Moderate cardiomegaly w/ mild pulmonary edema 2). ECHO: Left ventricle- Moderate to severe left ventricular enlargement. Mild concentric left ventricular hypertrophy. Overall systolic function mild to moderately globally impaired w/ EF 40-45%. Impaired relaxation consistent with grade 1 diastolic dysfunction. Left atrium- Mild increase in atrial volume. Right atrium- Moderate right atrial enlargement. Bilateral enlargement is new finding since last ECHO. Mitral valve- Moderate mitral regurgitation 3). EKG: Prolonged WV interval >220. Probable left atrial enlargement. Sinus rhythm. - HOSPITAL COURSE Hospital Course: This patient was admitted for noncompliance with her medications which resulted in acute on chronic heart failure. An ECHO was done this admission to show that her ejection fraction went from 65% (in 07/2018) to 40-45%, as well as new severe aortic regurgitation. She was started on IV lasix and placed on a fluid and sodium restriction. Admission BNP was 1057 but increased to 1527 the following day and was down to 249 at time of discharge. Troponin was also elevated at 48.1 (down to 44 on discharge) but can likely be attributed to demand ischemia from volume overload. While working with PT, she began to have SVTs, so she was started on Coreg which she will resume along with her prior heart medications (Lasix and Aldactone). At time of discharge, patient was able to maintain SpO2 in upper 90's on RA while ambulating in room independently and her strength had returned to baseline. She was discharged on routine Lasix as well as PRN for wt increase. She was also started on K and Mg for repletion. She is to follow up with cardiology as an outpatient and we are asking her PCP to make that referral. - ALLERGIES Allergies/Adverse Reactions: Allergies Allergy/AdvReac Type Severity Reaction Status Date / Time No Known Drug Allergies Allergy Verified 05/04/19 14:55 - MEDICATIONS Home Medications: Ambulatory Orders Medication Instructions Recorded Confirmed Cetirizine HCl [Zyrtec] 10 mg PO DAILY PRN 04/27/14 05/05/19 Gluc HCl/Csa/Collagen/Hyalur A 1 each PO BID 04/27/14 05/05/19 [Glucosamine Chondroitin Cap] Multivitamin [Multi-Vitamin Daily] 1 each PO DAILY 04/27/14 05/05/19 Omeprazole 20 mg PO QDAC 04/27/14 05/05/19 Aspirin [Aspir-Low] 81 mg PO DAILY 09/25/16 05/05/19 Ubidecarenone [Coenzyme Q-10] 10 mg PO DAILY 04/04/18 05/05/19 Albuterol Sulfate [Proventil Hfa 2 puffs INH Q4H PRN #0 04/06/18 05/05/19 Inhaler] Calcium Citrate 500 mg PO Q2D #0 04/06/18 05/05/19 DULoxetine [Cymbalta] 30 mg PO DAILY #0 04/06/18 05/05/19 Furosemide [Lasix] 20 mg PO DAILY #0 04/06/18 05/05/19 Losartan [Cozaar] 100 mg ORAL DAILY #0 04/06/18 05/05/19 Nystatin [Nystop] 1 applic TOP BID #1 bottle 04/06/18 05/05/19 Simvastatin [Zocor] 40 mg PO QPM #0 04/06/18 05/05/19 Spironolactone 25 mg PO BID #0 04/06/18 05/05/19 Beclomethasone Dipropionate [Qvar 75 mci IH DAILY PRN 05/04/19 05/05/19 Redihaler (40 mcg)] Pregabalin [Lyrica] 50 mg PO TID 05/04/19 05/05/19 Methocarbamol 750 mg PO TID PRN 05/05/19 05/05/19 Terbinafine [Lamisil] 250 mg PO DAILY 05/05/19 05/05/19 Carvedilol [Coreg] 6.25 mg PO BID #60 tablet 05/07/19 Magnesium Oxide [Magnesium] 250 mg PO DAILY #30 tablet 05/07/19 Potassium Chloride [Micro-K] 10 meq PO 0800 #30 capsule 05/07/19 - PHYSICAL EXAM AT DISCHARGE General Appearance: positive: No acute distress, Alert Eyes Bilateral: positive: Normal inspection ENT: positive: ENT inspection nml Neck: positive: Nml inspection, No JVD Respiratory: positive: Chest non-tender, No respiratory distress, Other (prolonged end exhalation phase) Cardiovascular: positive: Regular rate & rhythm, No gallop, Diastolic murmur Peripheral Pulses: positive: 2+ Abdomen: positive: Non-tender, Nml bowel sounds, No distention Back: positive: Nml inspection Skin: positive: Color nml, No rash, Warm, Dry Extremities: positive: Non-tender, Pedal edema (Trace), Other (Trace edema to BUE) Neurologic/Psychiatric: positive: Oriented x3, Motor nml, Weakness - LABS Result Diagrams: 05/07/19 05:25 05/07/19 05:25 - DIAGNOSTIC IMAGING Diagnostic Imaging Results: Final report reviewed - SEPSIS Current Stage of Sepsis: Ruled out - FOLLOW UP Follow Up: Cardiology PCP - TIME SPENT Time Spent in Discharge (Minutes): 35"
[2019-05-07 13:49] VITALS: BP 132/58
== END 2019-05-07 12:20 | disposition home or self-care (01) | DRG 292 ==
LOC: ED 14:45 → MS2 21:30 → OBSVTOIN 05-05 10:45
PROVIDERS: ADMIT Internal Medicine; ATTEND Specialist
DX: R06.01 Orthopnea (principal); R06.02 Shortness of breath; R60.0 Localized edema; R06.2 Wheezing; R79.89 Other specified abnormal findings of blood chemistry; I15.9 Secondary hypertension, unspecified; G47.30 Sleep apnea, unspecified; I11.0 Hypertensive heart disease with heart failure; E78.00 Pure hypercholesterolemia, unspecified; K21.9 Gastro-esophageal reflux disease without esophagitis; I47.1 Supraventricular tachycardia; Z82.49 Family history of ischemic heart disease and other diseases of the circulatory system; I24.8 Other forms of acute ischemic heart disease; I50.23 Acute on chronic systolic (congestive) heart failure; T50.1X6A Underdosing of loop [high-ceiling] diuretics, initial encounter; Z91.128 Patient's intentional underdosing of medication regimen for other reason; I08.0 Rheumatic disorders of both mitral and aortic valves; G62.9 Polyneuropathy, unspecified; M79.7 Fibromyalgia; R53.1 Weakness; Z79.899 Other long term (current) drug therapy; Z79.82 Long term (current) use of aspirin; Z23 Encounter for immunization
CPT/HCPCS: 36415; 71045; 80048; 80053; 83690; 83735; 83880; 84484; 85025; 90686; 93005; 93306; 94640; 94761; 96374; 96376; 97110; 97116; 97162; 97165; 97530; 99284; 99285; A9270; G0378

== ENCOUNTER 2019-06-09 15:43 | Outpatient (CLI) | payer MEDICARE, BC ==
[2019-06-09 16:09] LABS: CALCIUM 10.4 mg/dL (8.5-10.3); CREATININE 1.3 mg/dL (0.4-1.0)
== END 2019-06-09 15:44 | disposition home or self-care (01) ==
LOC: LAB 15:43
PROVIDERS: ATTEND Internal Medicine Cardiovascular Disease
DX: I50.9 Heart failure, unspecified (principal); Z79.899 Other long term (current) drug therapy
CPT/HCPCS: 36415; 80048; 83880

== ENCOUNTER 2019-10-11 08:00 | Outpatient (CLI) | payer MEDICARE, BC ==
[2019-10-13 23:44] LABS: ALBUMIN 3.8 g/dL (3.8-4.8); ALPHA 1 GLOBULIN 0.4 g/dL (0.2-0.3); ALPHA 2 GLOBULIN 0.9 g/dL (0.5-0.9); BETA 1 GLOBULIN 0.5 g/dL (0.4-0.6); BETA 2 GLOBULIN 0.4 g/dL (0.2-0.5); GAMMA GLOBULIN 1.1 g/dL (0.8-1.7)
== END 2019-10-11 23:59 | disposition home or self-care (01) ==
LOC: LAB.WCP 08:00
PROVIDERS: ATTEND Family Medicine
DX: G62.9 Polyneuropathy, unspecified (principal); I10 Essential (primary) hypertension
CPT/HCPCS: 36415; 81599; 82607; 83921; 84155; 84165; 84443; 86334

== ENCOUNTER 2020-01-19 08:00 | Outpatient (CLI) | payer MEDICARE, BC ==
[2020-01-19 18:55] LABS: BASOPHILS % (AUTO) 0.5 %; EOSINOPHILS # (AUTO) 0.1 10^3/uL (0.0-0.7); EOSINOPHILS % (AUTO) 1.8 %; HGB - HEMOGLOBIN 13.6 g/dL (12.0-16.0); LYMPHOCYTES # (AUTO) 1.6 10^3/uL (1.5-3.5); LYMPHOCYTES % (AUTO) 20.8 %; MEAN CORPUSCULAR HGB CONC 31.7 g/dL (32.0-36.0); MEAN CORPUSCULAR VOLUME 94.7 fL (81.0-99.0); MEAN PLATELET VOLUME 11.5 fL (7.9-10.8); MONOCYTES # (AUTO) 0.7 10^3/uL (0.0-1.0); MONOCYTES % (AUTO) 9.2 %; NEUTROPHILS # (AUTO) 5.2 10^3/uL (1.5-6.6); NEUTROPHILS % (AUTO) 67.3 %; PLT - PLATELET COUNT 273 10^3/uL (130-450); RED BLOOD COUNT 4.53 10^6/uL (4.20-5.40); RED CELL DISTRIBUTION WIDTH 12.9 % (12.0-15.0); WHITE BLOOD COUNT 7.8 x10^3/uL (4.8-10.8)
[2020-01-19 19:15] LABS: HB2 TOTAL 14.1 g/dL; HEMOGLOBIN A1C 0.57 g/dL; HEMOGLOBIN A1C % 5.9 % (4.6-6.2)
[2020-01-19 19:27] LABS: ALBUMIN/GLOBULIN RATIO 1.1 (1.0-2.2); ALKALINE PHOSPHATASE 78 IU/L (42-121); ALT ALANINE AMINOTRANSFERASE 17 IU/L (10-60); AST ASPARTATE AMINOTRANSFERASE 15 IU/L (10-42); BILIRUBIN,TOTAL 0.9 mg/dL (0.2-1.0); BUN - BLOOD UREA NITROGEN 22 mg/dL (6-20); CHOL/HDL RATIO 2.7 (<4.4); CHOLESTEROL 126 mg/dL; CREATININE 0.9 mg/dL (0.4-1.0); HDL CHOLESTEROL 47 mg/dL; LDL CHOLESTEROL,CALCULATED 61 mg/dL; LDL/HDL RATIO 1.3 (<4.4); TOTAL PROTEIN 7.5 g/dL (6.7-8.2); VLDL CHOLESTEROL 18 mg/dL
[2020-01-19 19:31] LABS: CALCIUM 10.4 mg/dL (8.5-10.3); CARBON DIOXIDE - CO2 29 mmol/L (21-32); CHLORIDE 92 mmol/L (101-111); GLUCOSE 95 mg/dL (70-100); SODIUM 129 mmol/L (135-145)
== END 2020-01-19 23:59 | disposition home or self-care (01) ==
LOC: LAB.WCP 08:00
PROVIDERS: ATTEND Family Medicine
DX: E78.5 Hyperlipidemia, unspecified (principal); E53.8 Deficiency of other specified B group vitamins; R73.01 Impaired fasting glucose; I35.1 Nonrheumatic aortic (valve) insufficiency; I47.1 Supraventricular tachycardia; I50.9 Heart failure, unspecified; J44.9 Chronic obstructive pulmonary disease, unspecified
CPT/HCPCS: 36415; 80053; 80061; 82607; 83036; 83721; 84443; 85025

== ENCOUNTER 2020-07-18 08:45 | Outpatient (CLI) | payer MEDICARE, BC ==
[2020-07-18 08:48] LABS: BASOPHILS # (AUTO) 0.1 10^3/uL (0.0-0.1); BASOPHILS % (AUTO) 0.8 %; EOSINOPHILS # (AUTO) 0.1 10^3/uL (0.0-0.7); EOSINOPHILS % (AUTO) 1.7 %; HGB - HEMOGLOBIN 13.6 g/dL (12.0-16.0); LYMPHOCYTES # (AUTO) 0.9 10^3/uL (1.5-3.5); LYMPHOCYTES % (AUTO) 12.7 %; MEAN CORPUSCULAR HGB CONC 32.4 g/dL (32.0-36.0); MEAN CORPUSCULAR VOLUME 95.7 fL (81.0-99.0); MONOCYTES # (AUTO) 0.5 10^3/uL (0.0-1.0); NEUTROPHILS # (AUTO) 5.6 10^3/uL (1.5-6.6); NEUTROPHILS % (AUTO) 77.4 %; PLT - PLATELET COUNT 243 10^3/uL (130-450); RED BLOOD COUNT 4.39 10^6/uL (4.20-5.40); RED CELL DISTRIBUTION WIDTH 13.5 % (12.0-15.0); WHITE BLOOD COUNT 7.2 x10^3/uL (4.8-10.8)
[2020-07-18 09:09] LABS: ALBUMIN 3.9 g/dL (3.2-5.5); ALBUMIN/GLOBULIN RATIO 1.1 (1.0-2.2); ALKALINE PHOSPHATASE 83 IU/L (42-121); ALT ALANINE AMINOTRANSFERASE 20 IU/L (10-60); AST ASPARTATE AMINOTRANSFERASE 16 IU/L (10-42); BILIRUBIN,TOTAL 0.5 mg/dL (0.2-1.0); BUN - BLOOD UREA NITROGEN 24 mg/dL (6-20); CALCIUM 9.8 mg/dL (8.5-10.3); CARBON DIOXIDE - CO2 26 mmol/L (21-32); CHLORIDE 100 mmol/L (101-111); CHOL/HDL RATIO 3.4 (<4.4); CHOLESTEROL 139 mg/dL; CREATININE 0.9 mg/dL (0.4-1.0); GLUCOSE 119 mg/dL (70-100); HDL CHOLESTEROL 41 mg/dL; LDL CHOLESTEROL,CALCULATED 70 mg/dL; LDL/HDL RATIO 1.7 (<4.4); SODIUM 137 mmol/L (135-145); TOTAL PROTEIN 7.3 g/dL (6.7-8.2); VLDL CHOLESTEROL 28 mg/dL
== END 2020-07-18 08:46 | disposition home or self-care (01) ==
LOC: DI 08:45
PROVIDERS: ATTEND Internal Medicine Cardiovascular Disease
DX: I11.0 Hypertensive heart disease with heart failure (principal); I50.9 Heart failure, unspecified; I08.0 Rheumatic disorders of both mitral and aortic valves; J90 Pleural effusion, not elsewhere classified; E78.5 Hyperlipidemia, unspecified; E53.8 Deficiency of other specified B group vitamins
CPT/HCPCS: 36415; 80053; 80061; 82607; 83721; 85025; 93306

== ENCOUNTER 2020-10-04 13:22 | Outpatient (CLI) | payer MEDICARE, BC ==
[2020-10-04 18:02] LABS: BASOPHILS # (AUTO) 0.1 10^3/uL (0.0-0.1); BASOPHILS % (AUTO) 0.4 %; EOSINOPHILS # (AUTO) 0.1 10^3/uL (0.0-0.7); EOSINOPHILS % (AUTO) 0.8 %; HCT - HEMATOCRIT 45.9 % (37.0-47.0); HGB - HEMOGLOBIN 14.3 g/dL (12.0-16.0); LYMPHOCYTES # (AUTO) 1.1 10^3/uL (1.5-3.5); LYMPHOCYTES % (AUTO) 9.4 %; MEAN CORPUSCULAR HGB CONC 31.2 g/dL (32.0-36.0); MEAN CORPUSCULAR VOLUME 99.4 fL (81.0-99.0); MONOCYTES # (AUTO) 0.8 10^3/uL (0.0-1.0); MONOCYTES % (AUTO) 6.5 %; NEUTROPHILS # (AUTO) 9.6 10^3/uL (1.5-6.6); NEUTROPHILS % (AUTO) 82.4 %; RED BLOOD COUNT 4.62 10^6/uL (4.20-5.40); RED CELL DISTRIBUTION WIDTH 14.1 % (12.0-15.0); WHITE BLOOD COUNT 11.7 x10^3/uL (4.8-10.8)
[2020-10-04 19:04] LABS: PLATELET MORPHOLOGY PLATELET CLUMPING (NORMAL); SLIDE REVIEW? Indicated
[2020-10-04 19:05] LABS: RBC MORPHOLOGY (MULTIPLE) NORMAL APPEARANCE (NORMAL); WBC MORPHOLOGY (MULTIPLE) NORMAL APPEARANCE (NORMAL)
[2020-10-04 19:09] LABS: ALBUMIN/GLOBULIN RATIO 1.2 (1.0-2.2); ALKALINE PHOSPHATASE 86 IU/L (42-121); ALT ALANINE AMINOTRANSFERASE 17 IU/L (10-60); AST ASPARTATE AMINOTRANSFERASE 19 IU/L (10-42); BILIRUBIN,TOTAL 0.6 mg/dL (0.2-1.0); BUN - BLOOD UREA NITROGEN 31 mg/dL (6-20); CALCIUM 9.7 mg/dL (8.5-10.3); CARBON DIOXIDE - CO2 27 mmol/L (21-32); CHLORIDE 102 mmol/L (101-111); CHOL/HDL RATIO 3.3 (<4.4); CHOLESTEROL 134 mg/dL; CREATININE 0.9 mg/dL (0.4-1.0); GFR - MDRD 61 (>89); GLUCOSE 123 mg/dL (70-100); HDL CHOLESTEROL 41 mg/dL; LDL CHOLESTEROL,CALCULATED 57 mg/dL; LDL/HDL RATIO 1.4 (<4.4); POTASSIUM 3.9 mmol/L (3.5-5.0); SODIUM 140 mmol/L (135-145); TOTAL PROTEIN 7.4 g/dL (6.7-8.2); TRIGLYCERIDES 180 mg/dL; VLDL CHOLESTEROL 36 mg/dL
[2020-10-04 19:10] LABS: PLATELET ESTIMATE, MANUAL NORMAL (130-450,000) (NORMAL)
== END 2020-10-04 13:23 | disposition home or self-care (01) ==
LOC: LAB.N 13:22
PROVIDERS: ATTEND Physician Assistant Medical
DX: E78.5 Hyperlipidemia, unspecified (principal); E53.8 Deficiency of other specified B group vitamins; I10 Essential (primary) hypertension
CPT/HCPCS: 36415; 80053; 80061; 82607; 83721; 85025

== ENCOUNTER 2020-10-19 09:04 | Outpatient (CLI) | payer MEDICARE, BC ==
--- NOTE | 2020-10-22 12:40 | Mammography Report ---
BILATERAL DIGITAL DIAGNOSTIC MAMMOGRAM 3D/2D: 10/19/2020 CLINICAL: History of right breast cancer. Comparison is made to exams dated: 11/30/2017 mammogram, 09/08/2016 mammogram, 08/27/2015 mammogram, and 06/19/2014 mammogram - [facility]. The tissue of right breast is predo minantly fatty. There are scattered fibroglandular elements in left breast. Changes of partial right mastectomy. No other significant masses, calcifications, or other findings a re seen in either breast. IMPRESSION: BENIGN There is no mammographic evidence of malignancy. Return to annual screening schedule is recommended. This exam was interpreted at Station ID: [id number]. NOTE: For mammograms, a report in lay terms will be sent to the patient. Approximately 15% of breast malignancies will not be visualized mammographically. In the management of a palpable breast mass, a negative mammogram must not discourage biopsy of a clinically suspicious lesion. Electronically Signed By: Brendon Price M.D. jr/:10/19/2020 09:53:25 ACR BI-RADS Category 2: Benign Finding(s) 3342F PARENCHYMAL PATTERN: (A) - The breast(s) demonstrate(s) scattered fibroglandular densities. BI-RADS CATEGORY: (2) - 2 Unspecified - other [id number] return to screening LATERALITY: (B)
== END 2020-10-19 09:05 | disposition home or self-care (01) ==
LOC: DI 09:04
PROVIDERS: ATTEND Internal Medicine Hematology & Oncology
DX: Z08 Encounter for follow-up examination after completed treatment for malignant neoplasm (principal); Z85.3 Personal history of malignant neoplasm of breast

== ENCOUNTER 2021-02-06 09:51 | Outpatient (CLI) | payer MEDICARE, BC ==
[2021-02-06 10:37] LABS: CREATININE 0.8 mg/dL (0.4-1.0); POTASSIUM 4.3 mmol/L (3.5-5.0)
[2021-02-06 12:02] LABS: ESTIMATED AVERAGE GLUCOSE 126 mg/dL (70-100)
== END 2021-02-06 09:52 | disposition home or self-care (01) ==
LOC: LAB 09:51
PROVIDERS: ATTEND Physician Assistant Medical
DX: R73.01 Impaired fasting glucose (principal)
CPT/HCPCS: 36415; 80048; 83036

== ENCOUNTER 2021-05-10 12:23 | Outpatient (CLI) | payer MEDICARE, BC ==
--- NOTE | 2021-05-10 14:05 | Ultrasound Report ---
PROCEDURE: Head or Neck Soft Tissue INDICATIONS: THROAT SWELLING TECHNIQUE: Real-time scanning was performed of the thyroid gland, with image documentation. COMPARISON: CT of chest dated 07/20/2018 FINDINGS: Right: Thyroid lobe measures 5.2 x 2.8 x 2.5 cm, and is homogeneous in echotexture. Left: Thyroid lobe measures 5.0 x 2.2 x 3.0 cm, and is homogenous in echotexture. Isthmus: 13 mm thick. Nodule number: One Location: Upper pole of right thyroid lobe Size: 0.6 x 0.5 x 0.6 cm. Composition: Solid Echogenicity: Isoechoic Shape: wider than tall. Margins: Smooth Echogenic foci: None. Total points: 3 ACR TI-RADS category: Mildly suspicious. Nodule number: Two Location: Upper pole of left thyroid lobe Size: 2 x 1.2 x 1.4 cm. Composition: Solid Echogenicity: Isoechoic Shape: wider than tall. Margins: Smooth Echogenic foci: None. Total points: 3 ACR TI-RADS category: Mildly suspicious IMPRESSION: 1. Thickened isthmus. Thyroid gland is normal in size. 2. 2 mildly suspicious nodule seen in upper poles of bilateral thyroid lobe as above. Suggest sonogra phic follow-up is the following recommendation. ACR TI-RADS definitions and recommendations: TI-RADS 1 (benign): 0 points. FNA not needed. TI-RADS 2 (not suspicious): 2 points. FNA not needed. TI-RADS 3 (mildly suspicious): 3 points. "FNA if 2.5 cm or larger, follow up if 1.5 cm or larger (at 1, 3, and 5 years). TI-RADS 4 (moderately suspicious): 4-6 points. "FNA if 1.5 cm or larger, follow up if 1 cm or larger (at 1, 2, 3, and 5 years). TI-RADS 5 (highly suspicious): 7 points or more. "FNA if 1 cm or larger, follow up if 0.5 cm or larger (every year for 5 years). Reviewed by: Roberth Hendrickson MD on 05/10/2021 2:04 PM PDT Approved by: Roberth Hendrickson MD on 05/10/2021 2:04 PM PDT Station ID: [id number]
== END 2021-05-10 12:24 | disposition home or self-care (01) ==
LOC: DI 12:23
PROVIDERS: ATTEND Physician Assistant Medical
DX: E07.89 Other specified disorders of thyroid (principal); E04.2 Nontoxic multinodular goiter

== ENCOUNTER 2021-08-14 17:55 | Outpatient (CLI) | payer MEDICARE, BC | END 2021-08-14 17:56 | disposition EMS.NT | LOC: EMS 17:55 | DX: Z03.89 Encounter for observation for other suspected diseases and conditions ruled out (principal) ==

== ENCOUNTER 2021-09-04 11:00 | Outpatient (CLI) | payer MEDICARE, BC ==
--- NOTE | 2021-09-04 16:19 | XRAY Report ---
PROCEDURE: Foot 3 View LT INDICATIONS: L FOOT PX TECHNIQUE: 3 views of the foot were acquired. COMPARISON: None. FINDINGS: Bones: No gross acute fractures or dislocations. Osteoarthritic changes are noted throughout left fo ot. Osteopenia is seen. No suspicious bony lesions. Soft tissues: Significant soft tissue swelling over dorsal aspect of tarsal bones and metatarsal shaf ts are seen. No tibiotalar joint effusion. Achilles tendon appears normal. IMPRESSION: Mild osteopenia and left foot osteoarthritis. No gross acute fracture or dislocation. Significant mid foot and forefoot dorsal soft tissue swelling. Reviewed by: Roberth Hendrickson MD on 09/04/2021 4:17 PM PST Approved by: Roberth Hendrickson MD on 09/04/2021 4:17 PM PST Station ID: [id number]
== END 2021-09-04 11:01 | disposition home or self-care (01) ==
LOC: DI.N 11:00
PROVIDERS: ATTEND Physician Assistant Medical
DX: M85.872 Other specified disorders of bone density and structure, left ankle and foot (principal); M19.072 Primary osteoarthritis, left ankle and foot; R93.6 Abnormal findings on diagnostic imaging of limbs; R93.89 Abnormal findings on diagnostic imaging of other specified body structures; I50.9 Heart failure, unspecified; E78.5 Hyperlipidemia, unspecified; E53.8 Deficiency of other specified B group vitamins; R73.01 Impaired fasting glucose; E04.1 Nontoxic single thyroid nodule; L89.309 Pressure ulcer of unspecified buttock, unspecified stage
CPT/HCPCS: 36415; 80053; 80061; 82607; 83036; 83721; 83880; 84443; 85025

== ENCOUNTER 2021-09-04 11:11 | Outpatient (CLI) | payer MEDICARE, BC ==
[2021-09-04 18:35] LABS: BASOPHILS % (AUTO) 0.5 %; EOSINOPHILS # (AUTO) 0.1 10^3/uL (0.0-0.7); EOSINOPHILS % (AUTO) 1.3 %; HCT - HEMATOCRIT 45.2 % (37.0-47.0); HGB - HEMOGLOBIN 13.6 g/dL (12.0-16.0); LYMPHOCYTES # (AUTO) 1.1 10^3/uL (1.5-3.5); MEAN CORPUSCULAR HEMOGLOBIN 30.2 pg (27.0-31.0); MEAN CORPUSCULAR HGB CONC 30.1 g/dL (32.0-36.0); MEAN CORPUSCULAR VOLUME 100.2 fL (81.0-99.0); MONOCYTES # (AUTO) 0.7 10^3/uL (0.0-1.0); MONOCYTES % (AUTO) 7.7 %; NEUTROPHILS # (AUTO) 6.6 10^3/uL (1.5-6.6); NEUTROPHILS % (AUTO) 77.3 %; PLT - PLATELET COUNT 236 10^3/uL (130-450); RED BLOOD COUNT 4.51 10^6/uL (4.20-5.40); WHITE BLOOD COUNT 8.5 x10^3/uL (4.8-10.8)
[2021-09-04 19:22] LABS: ALBUMIN 3.7 g/dL (3.2-5.5); ALBUMIN/GLOBULIN RATIO 1.1 (1.0-2.2); ALKALINE PHOSPHATASE 89 IU/L (42-121); ALT ALANINE AMINOTRANSFERASE 17 IU/L (10-60); AST ASPARTATE AMINOTRANSFERASE 16 IU/L (10-42); BILIRUBIN,TOTAL 0.6 mg/dL (0.2-1.0); BUN - BLOOD UREA NITROGEN 25 mg/dL (6-20); CALCIUM 9.3 mg/dL (8.5-10.3); CARBON DIOXIDE - CO2 31 mmol/L (21-32); CHLORIDE 98 mmol/L (101-111); CHOL/HDL RATIO 3.1 (<4.4); CHOLESTEROL 130 mg/dL; CREATININE 0.9 mg/dL (0.4-1.0); GFR - MDRD 60 (>89); GLUCOSE 107 mg/dL (70-100); HDL CHOLESTEROL 42 mg/dL; LDL CHOLESTEROL,CALCULATED 65 mg/dL; LDL/HDL RATIO 1.5 (<4.4); POTASSIUM 4.1 mmol/L (3.5-5.0); SODIUM 138 mmol/L (135-145); TOTAL PROTEIN 7.1 g/dL (6.7-8.2); TRIGLYCERIDES 117 mg/dL; VLDL CHOLESTEROL 23 mg/dL
[2021-09-04 19:25] LABS: THYROID STIMULATING HORMONE 2.32 uIU/mL (0.34-5.60)
[2021-09-04 21:09] LABS: ESTIMATED AVERAGE GLUCOSE 128 mg/dL (70-100); HEMOGLOBIN A1c% 6.1 % (4.27-6.07)
== END 2021-09-04 11:12 | disposition home or self-care (01) ==
LOC: LAB.N 11:11
PROVIDERS: ATTEND Physician Assistant Medical
DX: I50.9 Heart failure, unspecified (principal); E78.5 Hyperlipidemia, unspecified; E53.8 Deficiency of other specified B group vitamins; R73.01 Impaired fasting glucose; E04.1 Nontoxic single thyroid nodule; L89.309 Pressure ulcer of unspecified buttock, unspecified stage
CPT/HCPCS: 36415; 80053; 80061; 82607; 83036; 83721; 83880; 84443; 85025

== ENCOUNTER 2021-09-14 03:13 | Outpatient (CLI) | payer MEDICARE, BC | END 2021-09-14 03:14 | disposition EMS.NT | LOC: EMS 03:13 | DX: Z03.89 Encounter for observation for other suspected diseases and conditions ruled out (principal) ==

== ENCOUNTER 2021-10-09 09:40 | Outpatient (CLI) | payer MEDICARE, BC | END 2021-10-09 09:41 | disposition critical access hospital (66) | LOC: EMS 09:40 | DX: S30.810A Abrasion of lower back and pelvis, initial encounter (principal); R10.11 Right upper quadrant pain; M79.604 Pain in right leg; W18.2XXA Fall in (into) shower or empty bathtub, initial encounter; Y92.002 Bathroom of unspecified non-institutional (private) residence as the place of occurrence of the external cause | CPT/HCPCS: A0425; A0429 ==

== ENCOUNTER 2021-10-09 09:59 | Inpatient (IN) | payer MEDICARE, BC ==
--- NOTE | 2021-10-09 10:24 | ED Physician Documentation ---
PD HPI SYNCOPE - Stated complaint Stated Complaint: WEAKNESS - Chief complaint Chief Complaint: General - History obtained from History obtained from: Patient, EMS (states bruising low back and also having low sats.) - History of Present Illness Witnessed: Witnessed (she had caregiver with her, but that person was unable to unwdge her from the bathtub area, so 911 called.) Timing - onset: How many days ago (Patient states she has been having some dyspnea and general weakness for the last couple of days. She states she slipped in the bathtub and fell against the edge of the tile with her low back. She is having difficulty getting out of that position. EMS was called to help her up and brought her here for evaluation. Complains of pain in the low back. Dyspnea and weakness for a couple of days.) Preceding symptoms: Generalized weakness (had general weakness and lightheaded, felt dyspnea, unable to keep herself standing, so fell getting into bathtub area.) Associated symptoms: Dyspnea (for several days, increasing over baseline. Also noting increased bilateral leg edema for days.). No: Headache, Chest pain Contributing factors: Just stood up. No: Recent med change, Decreased PO intake Injury occurred: Other (injury to lumbar area of back.). No: Fell, Head injury, Neck injury Similar symptoms before: Diagnosis (has had CHF in the past. no history of COPD. chronic back pain from disc disease, but current pain from fall is worse. On chronic pain meds from [facility] pain clinic in [facility] Recently seen: Not recently seen Review of Systems Constitutional: denies: Fever, Chills Nose: denies: Rhinorrhea / runny nose, Congestion Throat: denies: Sore throat Cardiac: reports: Pedal edema (chronic edema in legs, with increased the past several days to a week.). denies: Chest pain / pressure, Palpitations Respiratory: reports: Dyspnea. denies: Cough, Wheezing GI: reports: Abdominal Swelling (for the past week). denies: Vomiting, Diarrhea : denies: Dysuria, Frequency Musculoskeletal: reports: Extremity swelling (bilaterally increased over baseline.) Neurologic: reports: Generalized weakness. denies: Focal weakness, Numbness PD PAST MEDICAL HISTORY - Past Medical History Cardiovascular: Hypertension, High cholesterol, Valve disorder (aortic regurgitation) Respiratory: Sleep apnea Neuro: Peripheral neuropathy Endocrine/Autoimmune: None GI: GERD : Frequency HEENT: Chronic vision loss Psych: None Musculoskeletal: Osteoarthritis, Fibromyalgia, Chronic back pain, Other Derm: Rosacea - Past Surgical History Past Surgical History: Yes General: Cholecystectomy, Appendectomy, Colonoscopy /[place] [employer]: Hysterectomy, Oophrectomy, Other HEENT: Cataracts Derm: Skin cancer surgery - Present Medications Home Medications: Ambulatory Orders Medication Instructions Recorded Confirmed Cetirizine HCl [Zyrtec] 10 mg PO DAILY PRN 04/27/14 10/23/20 Glucosam/Chond/Collagen/Hyalur 1 each PO BID 04/27/14 10/23/20 [Glucosamine Chondroitin Cap] Multivitamin [Multi-Vitamin Daily] 1 each PO DAILY 04/27/14 10/23/20 Omeprazole 20 mg PO BID 04/27/14 10/09/21 Aspirin [Aspir-Low] 81 mg PO DAILY 09/25/16 10/09/21 Ubidecarenone [Coenzyme Q-10] 10 mg PO DAILY 04/04/18 10/23/20 Calcium Citrate 500 mg PO Q2D #0 04/06/18 10/23/20 Losartan [Cozaar] 100 mg ORAL DAILY #0 04/06/18 10/09/21 Simvastatin [Zocor] 40 mg PO QPM #0 04/06/18 10/09/21 Pregabalin [Lyrica] 50 mg PO TID 05/04/19 10/09/21 methocarbamoL [Methocarbamol] 750 mg PO QID PRN 05/05/19 10/09/21 Magnesium Oxide [Magnesium] 250 mg PO DAILY #30 tablet 05/07/19 10/23/20 Potassium Chloride [Micro-K] 10 meq PO 0800 #30 capsule 05/07/19 10/23/20 Amitriptyline [Elavil] 10 - 30 mg PO QPM PRN 10/09/21 10/09/21 Duloxetine HCl [Cymbalta] 60 mg PO DAILY 10/09/21 10/09/21 Furosemide [Lasix] 40 mg PO BID 10/09/21 10/09/21 HYDROcodone/ACET 7.5/325 [[place] 1 tab PO BID PRN 10/09/21 10/09/21 7.5/325] carvediloL [Coreg] 12.5 mg PO BID 10/09/21 10/09/21 - Allergies Allergies/Adverse Reactions: Allergies Allergy/AdvReac Type Severity Reaction Status Date / Time No Known Drug Allergies Allergy Verified 10/09/21 10:14 - Social History Does the pt smoke?: No Smoking Status: Never smoker Does the pt drink ETOH?: No Does the pt have substance abuse?: Yes - Immunizations Immunizations are current?: Yes - POLST Patient has POLST: No PD ED PE NORMAL - Vitals Vital signs reviewed: Yes (sats 83% RA, 94% NC 2 lpm) - General General: Alert and oriented X 3, Well developed/nourished - HEENT HEENT: Atraumatic, Pharynx benign - Neck Neck: Supple, no meningeal sign, No adenopathy - Cardiac Cardiac: RRR, No murmur - Respiratory Respiratory: No respiratory distress. No: Clear bilaterally (fine crackles heard bottom third both sides. No wheezing nor coarse sounds. ) - Abdomen Abdomen: Soft, Non tender, Other (Her abdomen is moderately distended with some shifting dullness consistent with possible ascites. She is rather obese so difficult to assess otherwise.). No: Normal bowel sounds (decreased) - Back Back: Other (She has a superficial abrasion in the lumbar area at the back. There is tenderness along the upper lumbar spine midline.) - Derm Derm: Normal color, Warm and dry - Extremities Extremities: No calf tenderness / cord, Other (She does have general swelling of both legs all the way up to the thighs consistent with likely some lymphedema. However there is also pitting edema in the lower legs and ankles 2+.) - Neuro Neuro: Alert and oriented X 3, No motor deficit, No sensory deficit, Normal speech Results - Vitals Vitals: Vital Signs - 24 hr 10/09/21 10/09/21 10/09/21 10:07 12:13 14:00 Temperature 36.6 C 36.6 C Heart Rate 80 73 78 Respiratory 20 16 16 Rate Blood Pressure 147/55 H 166/96 H 166/57 H O2 Saturation 89 L 93 84 L 10/09/21 14:24 Temperature Heart Rate Respiratory Rate Blood Pressure O2 Saturation 94 Oxygen O2 Source [With Activity] Room air O2 Source Nasal cannula - Labs Labs: Laboratory Tests 10/09/21 10/09/21 10/09/21 10:51 10:51 10:51 WBC 15.5 H RBC 4.77 Hgb 14.6 Hct 46.9 MCV 98.3 MCH 30.6 MCHC 31.1 L RDW 14.9 Plt Count 204 MPV 10.3 Neut # (Auto) 13.9 H Lymph # (Auto) 0.5 L [place] # (Auto) 0.9 Eos # (Auto) 0.1 Baso # (Auto) 0.1 Absolute Nucleated RBC 0.00 Nucleated RBC % 0.0 Sodium 137 Potassium 3.7 Chloride 97 L Carbon Dioxide 30 Anion Gap 10.0 BUN 23 H Creatinine 1.0 Estimated GFR (MDRD) 53 L Glucose 126 H Calcium 9.5 Magnesium 2.3 Total Bilirubin 0.7 AST 17 ALT 16 Alkaline Phosphatase 91 Total Creatine Kinase 61 Troponin I High Sens B-Natriuretic Peptide 77 Total Protein 7.2 Albumin 3.9 Globulin 3.3 Albumin/Globulin Ratio 1.2 Lipase 34 SARS-CoV-2 (PCR) 10/09/21 10/09/21 10:51 14:30 WBC RBC Hgb Hct MCV MCH MCHC RDW Plt Count MPV Neut # (Auto) Lymph # (Auto) [place] # (Auto) Eos # (Auto) Baso # (Auto) Absolute Nucleated RBC Nucleated RBC % Sodium Potassium Chloride Carbon Dioxide Anion Gap BUN Creatinine Estimated GFR (MDRD) Glucose Calcium Magnesium Total Bilirubin AST ALT Alkaline Phosphatase Total Creatine Kinase Troponin I High Sens 24.2 H* B-Natriuretic Peptide Total Protein Albumin Globulin Albumin/Globulin Ratio Lipase SARS-CoV-2 (PCR) NOT DETECTED - Rads (name of study) chest xray Radiology: Prelim report reviewed (increased heart size with pulmonary edema pattern. ), See rad report lumbar CT Radiology: Prelim report reviewed (transverse process fractures right L1, L2, L3. and left L1. No vertebral body fractures. ), See rad report PD MEDICAL DECISION MAKING - ED course Complexity details: reviewed results (She does have increased edema over baseline as well as dyspnea, hypoxia, fine crackles on lung sounds and chest x- ray showing vascular congestion. Her BNP is not elevated but she is obese and may cause a falsely normal level. Clinically seems CHF. Also back pain related to the fall.), re-evaluated patient (She is given IV diuretic with some urine output. However still hypoxic on room air. Return to oxygen by nasal cannula with good sats.), considered differential, d/w patient ED course: She has had increased weakness and dyspnea over several days and has leg swelling, fine crackles at the bases and some abdominal edema consistent with fluid retention/CHF. No history of COPD. Chest x-ray also shows pulmonary edema pattern. This weakness led to a fall this morning in the bathroom and she has injury to the low back with CT scan showing transverse process fractures L1-L3. No vertebral body fractures. The patient is hypoxic on room air even after some diuresis. She will need further care in the hospital for diuresis and treatment of apparent clinical CHF exacerbation and also modulation of pain medication for her back injury. She does see the [facility] pain clinic in the [place] location. She typically takes hydrocodone twice daily as a baseline for her chronic back pain. This likely will need to be increased in the short term (2 to 3 weeks) due to the back fractures. This will want to get coordinated with the pain specialist. I talked with the hospitalist who will evaluate the patient and assume further care. Departure - Departure Disposition: ED Place in Observation Clinical Impression: Hypoxia, Multiple transverse process fractures Dyspnea Qualifiers: Dyspnea type: shortness of breath Qualified Code(s): R06.02 - Shortness of breath Fall Qualifiers: Encounter type: initial encounter Qualified Code(s): W19.XXXA - Unspecified fall, initial encounter CHF exacerbation Qualifiers: Heart failure type: unspecified Qualified Code(s): I50.9 - Heart failure, unspecified Condition: Stable Record reviewed to determine appropriate education?: Yes Discharge Date/Time: 10/09/21 15:52
[2021-10-09 10:58] LABS: BASOPHILS # (AUTO) 0.1 10^3/uL (0.0-0.1); BASOPHILS % (AUTO) 0.3 %; EOSINOPHILS # (AUTO) 0.1 10^3/uL (0.0-0.7); EOSINOPHILS % (AUTO) 0.5 %; HCT - HEMATOCRIT 46.9 % (37.0-47.0); HGB - HEMOGLOBIN 14.6 g/dL (12.0-16.0); LYMPHOCYTES # (AUTO) 0.5 10^3/uL (1.5-3.5); LYMPHOCYTES % (AUTO) 3.1 %; MEAN CORPUSCULAR HEMOGLOBIN 30.6 pg (27.0-31.0); MEAN CORPUSCULAR HGB CONC 31.1 g/dL (32.0-36.0); MEAN CORPUSCULAR VOLUME 98.3 fL (81.0-99.0); MEAN PLATELET VOLUME 10.3 fL (7.9-10.8); MONOCYTES # (AUTO) 0.9 10^3/uL (0.0-1.0); MONOCYTES % (AUTO) 5.6 %; NEUTROPHILS # (AUTO) 13.9 10^3/uL (1.5-6.6); NEUTROPHILS % (AUTO) 90.1 %; PLT - PLATELET COUNT 204 10^3/uL (130-450); RED BLOOD COUNT 4.77 10^6/uL (4.20-5.40); RED CELL DISTRIBUTION WIDTH 14.9 % (12.0-15.0); WHITE BLOOD COUNT 15.5 x10^3/uL (4.8-10.8)
--- NOTE | 2021-10-09 11:07 | XRAY Report ---
PROCEDURE: Chest 1 View X-Ray INDICATIONS: dyspnea/weakness TECHNIQUE: One view of the chest was acquired. COMPARISON: September 01, 2017 FINDINGS: SUPPORT DEVICES: None. LUNGS/PLEURA: Mild prominence of the interstitium, concerning for pulmonary edema. No large pleural e ffusion or pneumothorax. MEDIASTINUM: Persistent enlargement of the cardiac silhouette. BONES/SOFT TISSUES: No acute abnormality. IMPRESSION: 1.Cardiomegaly with pulmonary edema pattern. Reviewed by: Alexander Yang MD on 10/09/2021 11:06 AM PST Approved by: Alexander Yang MD on 10/09/2021 11:06 AM [facility] Station ID: [id number]
[2021-10-09 11:13] LABS: ALBUMIN 3.9 g/dL (3.2-5.5); ALBUMIN/GLOBULIN RATIO 1.2 (1.0-2.2); BILIRUBIN,TOTAL 0.7 mg/dL (0.2-1.0); CALCIUM 9.5 mg/dL (8.5-10.3); MAGNESIUM 2.3 mg/dL (1.7-2.8); POTASSIUM 3.7 mmol/L (3.5-5.0); TOTAL PROTEIN 7.2 g/dL (6.7-8.2)
--- NOTE | 2021-10-09 12:31 | CT Report ---
PROCEDURE: LUMBAR SPINE WO INDICATIONS: fall, struck low back TECHNIQUE: Noncontrast 3 mm thick sections acquired from the T12 level to the sacrum. Sagittal and coronal refo rmats were constructed. For radiation dose reduction, the following was used: automated exposure co ntrol, adjustment of mA and/or kV according to patient size. COMPARISON: None. FINDINGS: There are mildly displaced fractures of the right L1, L2, and L3 transverse processes in addition to fractures of the left L2 transverse process. Spinous processes are intact. No pedicle or pars fractur e. Normal lumbar vertebral body height and alignment with no evidence of compression fracture. Visual ized portion of the sacrum and iliac bones are intact. Multilevel multifactorial degenerative changes, at least moderate in severity. Prevertebral and paraspinous soft tissues are within normal limits. IMPRESSION: Multiple mildly displaced transverse process fractures. Reviewed by: Brendon Price MD on 10/09/2021 12:30 PM PST Approved by: Brendon Price MD on 10/09/2021 12:30 PM PST Station ID: [id number]
[2021-10-09] MEDS ORDERED: FUROSEMIDE 40 MG/4 ML VIAL IVP STA ×2 (13:21→14:41)
[2021-10-09] MEDS ORDERED: HYDROmorphone 1 MG/ML CARPUJECT IVP STA (13:21)
[2021-10-09] MEDS ORDERED: ONDANSETRON 4 MG/2 ML VIAL IVP PRN (14:45)
[2021-10-09] MEDS ORDERED: SODIUM CHLORIDE FLUSH 0.9% 10 ML SYRINGE IVP PRN (14:45)
[2021-10-09] MEDS ORDERED: MORPHINE 2 MG/ML CARPUJECT IVP PRN (14:45)
[2021-10-09] MEDS ORDERED: PANTOPRAZOLE 40 MG TABLET PO STA (14:58)
--- NOTE | 2021-10-09 15:04 | HISTORY & PHYSICAL EXAMINATION ---
Chief Complaint - Chief Complaint Chief Complaint: fall, SOB History of Present Illness - Admitted From Admitted From:: medical floor - History Obtained From Records Reviewed: [facility], ER notes History obtained from: pt Exam Limitations: no - History of Present Illness HPI Comment/Other: This is a 80-year old female with a past medical history significant for hypertension, Obesity, neuropathy, systolic heart failure, breast cancer which was diagnosis and treated at 2016, Who present to ER complain Of difficulty breathing and fall evaluation. pt report she has increased weakness. Today while she was trying to get out of the bathtub, she fall. She states she slipped in the bathtub and fell against the edge of the tile with her low back. she denies Loss of consciousness. She has difficulty getting out of that position at the time. EMS was called to help her up and brought her to ER for evaluation. she Complains of pain in the low back. She denies chest pain, fever, chill. Patient states she has been having some dyspnea, special on exertion. she also report she need to sit up for her breath and complain of orthopnea. Patient also report urinary incontinence with discomfort CT of lumbar spinal show Multiple mild displaced transverse process of the fracture. Patient denies acute dysfunction of urination or bowel movement after fall. Chest x-ray show cardiomegaly with pulmonary edema pattern. Discussed CODE STATUS with the patient, patient hope to have DNR History - Past Medical History Cardiovascular: reports: Hypertension, High cholesterol, Valve disorder (aortic regurgitation) Respiratory: reports: Sleep apnea Neuro: reports: Peripheral neuropathy Endocrine/Autoimmune: reports: None GI: reports: GERD : reports: Frequency HEENT: reports: Chronic vision loss Psych: reports: None Musculoskeletal: reports: Osteoarthritis, Fibromyalgia, Chronic back pain, Other Derm: reports: Rosacea MRSA Hx?: No - Past Surgical History General: reports: Cholecystectomy, Appendectomy, Colonoscopy /[employer]: reports: Hysterectomy, Oophrectomy, Other HEENT: reports: Cataracts Derm: reports: Skin cancer surgery - Family & Social History Family History: Mother: , Father: Family History Comment/Other: Her mother has a history of CAD. Living Situation: Alone Social History Notes: [place] has been retired now for almost 16 years[place]. Denies alcohol use. - Substance History Use: Uses substance without health or social issues: NONE - POLST Patient has POLST: No Meds/Allgy - Home Medications Home Medications: Ambulatory Orders Medication Instructions Recorded Confirmed Cetirizine HCl [Zyrtec] 10 mg PO DAILY PRN 04/27/14 10/23/20 Glucosam/Chond/Collagen/Hyalur 1 each PO BID 04/27/14 10/23/20 [Glucosamine Chondroitin Cap] Multivitamin [Multi-Vitamin Daily] 1 each PO DAILY 04/27/14 10/23/20 Omeprazole 20 mg PO BID 04/27/14 10/09/21 Aspirin [Aspir-Low] 81 mg PO DAILY 09/25/16 10/09/21 Ubidecarenone [Coenzyme Q-10] 10 mg PO DAILY 04/04/18 10/23/20 Calcium Citrate 500 mg PO Q2D #0 04/06/18 10/23/20 Losartan [Cozaar] 100 mg ORAL DAILY #0 04/06/18 10/09/21 Simvastatin [Zocor] 40 mg PO QPM #0 04/06/18 10/09/21 Pregabalin [Lyrica] 50 mg PO TID 05/04/19 10/09/21 methocarbamoL [Methocarbamol] 750 mg PO QID PRN 05/05/19 10/09/21 Magnesium Oxide [Magnesium] 250 mg PO DAILY #30 tablet 05/07/19 10/23/20 Potassium Chloride [Micro-K] 10 meq PO 0800 #30 capsule 05/07/19 10/23/20 Amitriptyline [Elavil] 10 - 30 mg PO QPM PRN 10/09/21 10/09/21 Duloxetine HCl [Cymbalta] 60 mg PO DAILY 10/09/21 10/09/21 Furosemide [Lasix] 40 mg PO BID 10/09/21 10/09/21 HYDROcodone/ACET 7.5/325 [[place] 1 tab PO BID PRN 10/09/21 10/09/21 7.5/325] carvediloL [Coreg] 12.5 mg PO BID 10/09/21 10/09/21 - Allergies Allergies/Adverse Reactions: Allergies Allergy/AdvReac Type Severity Reaction Status Date / Time No Known Drug Allergies Allergy Verified 10/09/21 10:14 Review of Systems - Constitutional Constitutional: denies: Fever, Chills - Eyes Eyes: denies: Pain - Ears, Nose & Throat Ears, Nose & Throat: denies: Ear pain - Cardiovascular Cariovascular: reports: Edema, Exertional dyspnea, Decr. exercise tolerance. denies: Palpitations, Chest pain, Syncope - Respiratory Respiratory: reports: Orthopnea, SOB with exertion. denies: Cough, Wheezing, SOB at rest - Gastrointestinal Gastrointestinal: denies: Abdominal pain, Diarrhea, Nausea, Vomiting - Genitourinary Genitourinary: reports: Dysuria, Incontinence - Musculoskeletal Musculoskeletal: denies: Muscle pain - Integumentary Integumentary: denies: Rash - Neurological Neurological: reports: General weakness. denies: Focal weakness, Dizziness, Numbness, Seizures, Slurred speech Exam - Vital Signs Vital Signs: Vital Signs x48h Temp Pulse Resp BP Pulse Ox 10/09/21 14:24 94 10/09/21 14:00 78 16 166/57 H 84 L 10/09/21 12:13 36.6 C 73 16 166/96 H 93 10/09/21 10:07 36.6 C 80 20 147/55 H 89 L - Physical Exam General Appearance: positive: No acute distress, Alert. negative: Lethargic Eyes Bilateral: positive: Normal inspection, No lid inflammation ENT: positive: ENT inspection nml, No signs of dehydration. negative: Purulent nasal drainage Neck: positive: Nml inspection, Trachea midline. negative: Tracheal deviation Respiratory: positive: Chest non-tender, No respiratory distress. negative: Wheezes Cardiovascular: positive: Regular rate & rhythm, Systolic murmur. negative: Tachycardia, Bradycardia Peripheral Pulses: positive: 2+ Abdomen: positive: Non-tender, Nml bowel sounds. negative: Tenderness Back: positive: Nml inspection Skin: positive: Color nml, Warm, Dry Extremities: positive: Non-tender, Full ROM, Nml appearance, Pedal edema Neurologic/Psychiatric: positive: Oriented x3, Motor nml, Sensation nml, Mood/affect nml. negative: Weakness, Sensory loss, Facial droop, Slurred/abnml speech, Depressed mood/affect Conclusion/Plan - Problem List (1) CHF exacerbation Conclusion/Plan: Patient present shortness of breathing, orthopnea, chest x-ray show pulmonary edema, And cardiomegaly. Patient did not take oxygen at home. Patient had 84% oxygen saturation on room air in the ER. Patient had new diagnosis of congestive heart failure, EF 45% in the last admission. Patient denies history of COPD or history of cigarette smoking. COVID-19 test is negative. ER already give patient 120 mg intravenous Lasix, We will continue intravenous Lasix in the medical floor, We will do echo study, Supplemental oxygen as needed. If patient's respiratory condition continue not improve, Her BNP is only 77, we may do the CTA to rule off PE. order d-dimer. Qualifiers: Heart failure type: unspecified Qualified Code(s): I50.9 - Heart failure, unspecified (2) Hypoxia Conclusion/Plan: She had a 84% oxygen saturation on room air. Patient did not take oxygen at home routinely. This x-ray show pulmonary edema, cardiomegaly. Patient had diagnosis of congestive heart failure in the last admission. Patient denies history of cigarette smoking and history of COPD. We will give patient diuretics, supplemental oxygen as needed (3) Multiple transverse process fractures Conclusion/Plan: Patient report Fall in the home, but she denied loss of consciousness. She reported because she is very weak, she could not stand up. CT of spinal show lumbar transverse process fractures. Patient denies change pattern of urination or bowel movement, Patient had a normal range of motion of bilateral lower extremity and sensation. We will order PT/OT for patient weakness's evaluation and treatment. We will pain control for patient. (4) UTI (urinary tract infection) Conclusion/Plan: Patient report history of urinary incontinence and also urinary discomfortable. Patient had elevated WBC, UA primary analysis indicated infection. We will treated for patient urinary tract infection, add probiotics for patient (5) Neuropathy Conclusion/Plan: Patient report neuropathy, she Believe from her pervious chemo treatment for her breast cancer.We will resume patient home Lyrica. (6) Obesity Conclusion/Plan: Patient had a BMI 47, Now patient has hypoxia. discussed with pt for loss of weight safely, Closely monitor patient's respiratory status, Supplemental oxygen as needed - Lab Results Fish Bones: 10/10/21 06:00 10/10/21 04:10 Core Measures - Anticipated LOS I expect patient to be DC'd or transferred within 96 hours.: Yes - DVT/VTE - Prophylaxis VTE/DVT Device ordered at admit?: Yes VTE/DVT Prophylaxis med ordered at admit?: Yes
[2021-10-09 16:50] LABS: BILIRUBIN,URINE NEGATIVE (NEGATIVE); GLUCOSE, URINE (UA) NEGATIVE (NEGATIVE); KETONES,URINE (UA) NEGATIVE (NEGATIVE); LEUKOCYTE ESTERASE, URINE NEGATIVE (NEGATIVE); NITRITE,URINE POSITIVE (NEGATIVE); OCCULT BLOOD,URINE NEGATIVE (NEGATIVE); PH,URINE 5.5 PH (5.0-7.5); PROTEIN,URINE NEGATIVE (NEGATIVE); UROBILINOGEN,URINE 0.2 (NORMAL) E.U./dL (NORMAL)
[2021-10-09 17:07] LABS: BACTERIA,URINE Moderate /HPF (None Seen); CLARITY,URINE SL. CLOUDY (CLEAR); RBC,URINE 0-5 /HPF (0-5); SQUAMOUS EPITHELIAL CELL,UR RARE Squamous (<= Few); WBC,URINE 0-3 /HPF (0-5)
[2021-10-09] MEDS: SODIUM CHLORIDE FLUSH 0.9% 10 ML SYRINGE IVP SCH (18:09)
[2021-10-09] MEDS: ASPIRIN CHEW 81 MG TABLET PO SCH (18:09)
[2021-10-09] MEDS ORDERED: AMITRIPTYLINE 10 MG TABLET PO PRN (18:51)
[2021-10-09] MEDS: cefTRIAXone 1 GM in SODIUM CHLORIDE 0.9% MINIBAG 100 ML IV SCH (20:00)
[2021-10-09] MEDS ORDERED: carvediloL 3.125 MG TABLET PO SCH (21:00)
[2021-10-09] MEDS: PREGABALIN 25 MG CAPSULE PO SCH (21:33)
[2021-10-09] MEDS: carvediloL 12.5 MG TABLET PO SCH (21:33)
[2021-10-09] MEDS: ATORVASTATIN 40 MG TABLET PO SCH (21:33)
[2021-10-10] MEDS: SODIUM CHLORIDE FLUSH 0.9% 10 ML SYRINGE IVP SCH ×3 (00:19→17:09)
[2021-10-10 05:24] LABS: CREATININE 0.9 mg/dL (0.4-1.0)
[2021-10-10] MEDS: PREGABALIN 25 MG CAPSULE PO SCH ×3 (05:57→20:44)
[2021-10-10] MEDS ORDERED: FUROSEMIDE 40 MG/4 ML VIAL IVP SCH (06:00)
[2021-10-10] MEDS: PANTOPRAZOLE 40 MG TABLET PO SCH (06:00)
[2021-10-10 06:03] LABS: BASOPHILS % (AUTO) 0.3 %; EOSINOPHILS # (AUTO) 0.1 10^3/uL (0.0-0.7); EOSINOPHILS % (AUTO) 1.4 %; HCT - HEMATOCRIT 42.8 % (37.0-47.0); HGB - HEMOGLOBIN 13.3 g/dL (12.0-16.0); LYMPHOCYTES # (AUTO) 0.8 10^3/uL (1.5-3.5); LYMPHOCYTES % (AUTO) 8.2 %; MEAN CORPUSCULAR HEMOGLOBIN 30.3 pg (27.0-31.0); MEAN CORPUSCULAR HGB CONC 31.1 g/dL (32.0-36.0); MEAN CORPUSCULAR VOLUME 97.5 fL (81.0-99.0); MONOCYTES % (AUTO) 10.8 %; NEUTROPHILS # (AUTO) 7.5 10^3/uL (1.5-6.6); PLT - PLATELET COUNT 181 10^3/uL (130-450); RED BLOOD COUNT 4.39 10^6/uL (4.20-5.40); RED CELL DISTRIBUTION WIDTH 15.1 % (12.0-15.0); WHITE BLOOD COUNT 9.5 x10^3/uL (4.8-10.8)
[2021-10-10] MEDS ORDERED: FUROSEMIDE 40 MG/4 ML VIAL IVP ONE (08:00)
[2021-10-10] MEDS: SACCHAROMYCES BOULARDII 250 MG CAPSULE PO SCH ×2 (08:14→17:09)
[2021-10-10] MEDS: DULoxetine 30 MG CAPSULE PO SCH (08:15)
[2021-10-10] MEDS: carvediloL 12.5 MG TABLET PO SCH ×2 (08:15→20:42)
[2021-10-10] MEDS: ASPIRIN CHEW 81 MG TABLET PO SCH (08:15)
[2021-10-10] MEDS: ENOXAPARIN 40 MG/0.4 ML SYRINGE SUBQ SCH (08:18)
[2021-10-10] MEDS ORDERED: ENOXAPARIN 60 MG/0.6 ML SYRINGE SUBQ SCH (09:00)
[2021-10-10] MEDS ORDERED: ENOXAPARIN 40 MG/0.4 ML SYRINGE SUBQ SCH (09:00)
--- NOTE | 2021-10-10 11:43 | PROVIDER PROGRESS NOTE ---
Assessment/Plan - Problem List (1) CHF exacerbation Qualifiers: Heart failure type: unspecified Qualified Code(s): I50.9 - Heart failure, unspecified Assessment/Plan: 3 Patient reported she feel better for her breathing. Patient had 91% oxygen saturation on 1 L of oxygen. Patient did not take her oxygen at home. Patient's echo study is pending. D-dimer is low. We will continue intravenous Lasix for patient, Supplemental oxygen as needed Patient present shortness of breathing, orthopnea, chest x-ray show pulmonary edema, And cardiomegaly. Patient did not take oxygen at home. Patient had 84% oxygen saturation on room air in the ER. Patient had new diagnosis of congestive heart failure, EF 45% in the last admission. Patient denies history of COPD or history of cigarette smoking. COVID-19 test is negative. ER already give patient 120 mg intravenous Lasix, We will continue intravenous Lasix in the medical floor, We will do echo study, Supplemental oxygen as needed. If patient's respiratory condition continue not improve, Her BNP is only 77, we may do the CTA to rule off PE. order d-dimer. (2) Hypoxia Conclusion/Plan: 10/10 improved. Patient had 91% oxygen saturation on 1 L of oxygen. Patient reported she feel better for her breathing She had a 84% oxygen saturation on room air. Patient did not take oxygen at home routinely. This x-ray show pulmonary edema, cardiomegaly. Patient had diagnosis of congestive heart failure in the last admission. Patient denies history of cigarette smoking and history of COPD. We will give patient diuretics, supplemental oxygen as needed (3) Multiple transverse process fractures Conclusion/Plan: 10/10 We will continue pain control, continue PT and OT, patient out of the bed in the chair Patient report Fall in the home, but she denied loss of consciousness. She reported because she is very weak, she could not stand up. CT of spinal show lumbar transverse process fractures. Patient denies change pattern of urination or bowel movement, Patient had a normal range of motion of bilateral lower extremity and sensation. We will order PT/OT for patient weakness's evaluation and treatment. We will pain control for patient. (4) UTI (urinary tract infection) Conclusion/Plan: 310, UA culture show positive for E. coli, sensitivity studies pending, Continue antibiotics and probiotics Patient report history of urinary incontinence and also urinary discomfortable. Patient had elevated WBC, UA primary analysis indicated infection. We will treated for patient urinary tract infection, add probiotics for patient (5) Neuropathy Conclusion/Plan: Patient report neuropathy, she Believe from her pervious chemo treatment for her breast cancer.We will resume patient home Lyrica. (6) Obesity Conclusion/Plan: Patient had a BMI 47, Now patient has hypoxia. discussed with pt for loss of weight safely, Closely monitor patient's respiratory status, Supplemental oxygen as needed - Current Meds Current Meds: Current Medications Generic Name Dose Route Start Last Admin Trade Name Parveen PRN Reason Stop Dose Admin Aspirin 81 mg 10/09/21 14:57 10/10/21 08:15 Aspirin Chew 81 Mg Tablet PO 81 mg DAILY [facility] Administration Atorvastatin Calcium 40 mg 10/09/21 21:00 10/09/21 21:33 Atorvastatin 40 Mg Tablet PO 40 mg QPM [facility] Administration Carvedilol 12.5 mg 10/09/21 21:00 10/10/21 08:15 Carvedilol 12.5 Mg Tablet PO 12.5 mg BID [facility] Administration Duloxetine HCl 60 mg 10/10/21 09:00 10/10/21 08:15 Duloxetine 30 Mg Capsule PO 60 mg DAILY [facility] Administration Enoxaparin Sodium 40 mg 10/10/21 09:00 10/10/21 08:18 Enoxaparin 40 Mg/0.4 Ml Syringe SUBQ 40 mg DAILY [facility] Administration Ceftriaxone Sodium 1 gm/ 100 mls @ 200 mls/hr 10/09/21 19:00 10/09/21 21:26 Sodium Chloride IV Infused 1900 [facility] Infusion Pantoprazole Sodium 40 mg 10/10/21 07:00 10/10/21 06:00 Pantoprazole 40 Mg Tablet PO 40 mg QDAC [facility] Administration Pregabalin 50 mg 10/09/21 22:00 10/10/21 05:57 Pregabalin 25 Mg Capsule PO 50 mg TID [facility] Administration Saccharomyces Boulardii 250 mg 10/10/21 08:00 10/10/21 08:14 Saccharomyces Boulardii 250 Mg Capsule PO 250 mg BIDWM [facility] Administration Sodium Chloride 10 ml 10/09/21 17:00 10/10/21 08:19 Sodium Chloride Flush 0.9% 10 Ml Syringe IVP 10 ml 0100,0900,1700 [facility] Administration - Lab Result Fish Bone Diagrams: 10/10/21 06:00 10/10/21 04:10 - Additional Planning My Orders: My Active Orders 10/09/21 14:45 Activity Orders [RC] Q2HR IO [RC] IOSHIFT Initiate Bowel Care Protocol [RC] .protocol Initiate Line Care Protocol [RC] QSHIFT Initiate Personal Care Protoco [RC] .protocol Telemetry- [RC] Q4HR Vital Signs [RC] Q4HR Acetaminophen [Tylenol] 650 mg PO Q4HR PRN Morphine Inj (Carpuject) [Morphine (Carpuject)] 2 mg IVP Q2HR PRN Ondansetron Inj [Zofran Inj] 4 mg IVP Q6HR PRN Sodium Chloride Flush 0.9% [Normal Saline Flush 0.9%] 10 ml IVP PRN PRN oxyCODONE [Roxicodone] 5 mg PO Q4HR PRN Code Status [OTHERS] Routine Condition of Patient [OTHERS] Routine DVT Prophylaxis [OTHERS] Routine 10/09/21 14:51 IV Insert [RC] .ONCE SCDs [RC] QSHIFT 10/09/21 14:52 Evaluate and Treat OT [OT] Routine Evaluate and Treat PT [PT] Routine 10/09/21 14:57 Aspirin Chewable [[place] Aspirin] 81 mg PO DAILY 10/09/21 Dinner Cardiac Diet [DIET] 10/09/21 16:28 CUL, URINE [RM] Urgent 10/09/21 17:00 Sodium Chloride Flush 0.9% [Normal Saline Flush 0.9%] 10 ml IVP 0100,0900,1700 10/09/21 18:51 Amitriptyline [Elavil] 30 mg PO QPM PRN 10/09/21 18:58 methocarbamoL [Robaxin] 750 mg PO Q6HR PRN 10/09/21 19:00 cefTRIAXone [Rocephin] 1 gm Sodium Chloride 0.9% Minibag [Normal Saline 0.9% Minibag] 100 ml IV 1900 10/09/21 19:08 Code Status [OTHERS] Routine 10/09/21 20:04 Oxygen [Oxygen Therapy] [RC] .PRN 10/09/21 21:00 Atorvastatin [Lipitor] 40 mg PO QPM carvediloL [Coreg] 12.5 mg PO BID 10/09/21 22:00 Pregabalin [Lyrica] 50 mg PO TID 10/10/21 07:00 Pantoprazole [Protonix] 40 mg PO QDAC 10/10/21 07:20 Fluid Restriction [RC] ONCE 10/10/21 07:21 Daily Weight [RC] 0600 10/10/21 08:00 Saccharomyces Boulardii [Florastor] 250 mg PO BIDWM 10/10/21 09:00 DULoxetine [Cymbalta] 60 mg PO DAILY Enoxaparin [Lovenox] 40 mg SUBQ DAILY 10/10/21 14:00 FUROSEMIDE INJ 40mg VIAL [LASIX INJ 40 mg VIAL] 80 mg IVP BIDDIURETIC 10/11/21 05:00 BMP - BASIC METABOLIC PANEL [CHEM] DAILYLAB BNP - B-NATRIURETIC PEPTIDE [IAI] DAILYLAB CBC - COMP BLD CT W/AUTO DIFF [HEME] DAILYLAB 10/12/21 05:00 BMP - BASIC METABOLIC PANEL [CHEM] DAILYLAB BNP - B-NATRIURETIC PEPTIDE [IAI] DAILYLAB CBC - COMP BLD CT W/AUTO DIFF [HEME] DAILYLAB 10/13/21 05:00 BMP - BASIC METABOLIC PANEL [CHEM] DAILYLAB BNP - B-NATRIURETIC PEPTIDE [IAI] DAILYLAB CBC - COMP BLD CT W/AUTO DIFF [HEME] DAILYLAB 10/14/21 05:00 BMP - BASIC METABOLIC PANEL [CHEM] DAILYLAB BNP - B-NATRIURETIC PEPTIDE [IAI] DAILYLAB CBC - COMP BLD CT W/AUTO DIFF [HEME] DAILYLAB 10/15/21 05:00 BMP - BASIC METABOLIC PANEL [CHEM] DAILYLAB Subjective - Subjective Patient Reports: Feeling Better, Resting Comfortably Objective Vital Signs: Vital Signs - 24 hr 10/09/21 10/09/21 10/09/21 12:13 14:00 14:24 Temperature 36.6 C Heart Rate 73 78 Heart Rate [ Brachial] Respiratory 16 16 Rate Blood Pressure 166/96 H 166/57 H Blood Pressure [Left Radial artery] Blood Pressure [Right Brachial artery] O2 Saturation 93 84 L 94 10/09/21 10/09/21 10/09/21 16:00 20:28 21:41 Temperature 36.4 C L Heart Rate Heart Rate [ 68 75 Brachial] Respiratory 20 20 12 Rate Blood Pressure Blood Pressure [Left Radial artery] Blood Pressure 150/51 H 121/60 [Right Brachial artery] O2 Saturation 96 100 97 10/09/21 10/10/21 10/10/21 23:52 03:45 05:36 Temperature 36.6 C 36.6 C 37.1 C Heart Rate 81 Heart Rate [ 81 75 Brachial] Respiratory 20 20 20 Rate Blood Pressure Blood Pressure [Left Radial artery] Blood Pressure 106/69 138/65 H [Right Brachial artery] O2 Saturation 96 96 95 10/10/21 08:17 Temperature Heart Rate Heart Rate [ 72 Brachial] Respiratory Rate Blood Pressure Blood Pressure 130/57 L [Left Radial artery] Blood Pressure [Right Brachial artery] O2 Saturation 91 L Oxygen O2 Source [With Activity] Room air O2 Source Nasal cannula I&O (Last 24 Hrs): Intake and Output Totals x24h 10/08/21 10/09/21 10/10/21 23:59 23:59 23:59 Intake Total 630 270 Output Total 850 400 Balance -220 -130 General: Alert, Oriented x3, Cooperative, No acute distress HEENT: Atraumatic Neck: Supple Lymphatic: no adenopathy Neuro: Alert, Non Focal, Oriented Times 3 Cardiovascular: Regular rate, Normal S1, Normal S2 Respiratory: Chest non-tender, No respiratory distress Abdomen: Normal bowel sounds, Soft Extremities: Normal pulses - Results Results: Laboratory Results WBC 9.5 x10^3/uL (4.8-10.8) 10/10/21 06:00 RBC 4.39 10^6/uL (4.20-5.40) 10/10/21 06:00 Hgb 13.3 g/dL (12.0-16.0) 10/10/21 06:00 Hct 42.8 % (37.0-47.0) 10/10/21 06:00 MCV 97.5 fL (81.0-99.0) 10/10/21 06:00 MCH 30.3 pg (27.0-31.0) 10/10/21 06:00 MCHC 31.1 g/dL (32.0-36.0) L 10/10/21 06:00 RDW 15.1 % (12.0-15.0) H 10/10/21 06:00 Plt Count 181 10^3/uL (130-450) 10/10/21 06:00 MPV 12.0 fL (7.9-10.8) H 10/10/21 06:00 Neut # (Auto) 7.5 10^3/uL (1.5-6.6) H 10/10/21 06:00 Lymph # (Auto) 0.8 10^3/uL (1.5-3.5) L 10/10/21 06:00 [place] # (Auto) 1.0 10^3/uL (0.0-1.0) 10/10/21 06:00 Eos # (Auto) 0.1 10^3/uL (0.0-0.7) 10/10/21 06:00 Baso # (Auto) 0.0 10^3/uL (0.0-0.1) 10/10/21 06:00 Absolute Nucleated RBC 0.00 x10^3/uL 10/10/21 06:00 Nucleated RBC % 0.0 /100WBC 10/10/21 06:00 D-Dimer 309.6 ng/mL (200.0-255.0) H 10/09/21 19:40 Sodium 139 mmol/L (135-145) 10/10/21 04:10 Potassium 4.0 mmol/L (3.5-5.0) 10/10/21 04:10 Chloride 98 mmol/L (101-111) L 10/10/21 04:10 Carbon Dioxide 35 mmol/L (21-32) H 10/10/21 04:10 Anion Gap 6.0 (6-13) 10/10/21 04:10 BUN 21 mg/dL (6-20) H 10/10/21 04:10 Creatinine 0.9 mg/dL (0.4-1.0) 10/10/21 04:10 Estimated GFR (MDRD) 60 (>89) L 10/10/21 04:10 Glucose 129 mg/dL (70-100) H 10/10/21 04:10 Calcium 9.0 mg/dL (8.5-10.3) 10/10/21 04:10 Magnesium 2.3 mg/dL (1.7-2.8) 10/09/21 10:51 Total Bilirubin 0.7 mg/dL (0.2-1.0) 10/09/21 10:51 AST 17 IU/L (10-42) 10/09/21 10:51 ALT 16 IU/L (10-60) 10/09/21 10:51 Alkaline Phosphatase 91 IU/L (42-121) 10/09/21 10:51 Total Creatine Kinase 61 IU/L (22-269) 10/09/21 10:51 Troponin I High Sens 27.0 ng/L (2.3-14.8) H* 10/09/21 18:10 B-Natriuretic Peptide 75 pg/mL (5-100) 10/10/21 07:17 Total Protein 7.2 g/dL (6.7-8.2) 10/09/21 10:51 Albumin 3.9 g/dL (3.2-5.5) 10/09/21 10:51 Globulin 3.3 g/dL (2.1-4.2) 10/09/21 10:51 Albumin/Globulin Ratio 1.2 (1.0-2.2) 10/09/21 10:51 Lipase 34 U/L (22-51) 10/09/21 10:51 Urine Color LT. YELLOW 10/09/21 16:28 Urine Clarity SL. CLOUDY (CLEAR) 10/09/21 16:28 Urine pH 5.5 PH (5.0-7.5) 10/09/21 16:28 Ur Specific [place] 1.020 (1.002-1.030) 10/09/21 16:28 Urine Protein NEGATIVE mg/dL (NEGATIVE) 10/09/21 16:28 Urine Glucose (UA) NEGATIVE mg/dL (NEGATIVE) 10/09/21 16:28 Urine Ketones NEGATIVE mg/dL (NEGATIVE) 10/09/21 16:28 Urine Occult Blood NEGATIVE (NEGATIVE) 10/09/21 16:28 Urine Nitrite POSITIVE (NEGATIVE) H 10/09/21 16:28 Urine Bilirubin NEGATIVE (NEGATIVE) 10/09/21 16:28 Urine Urobilinogen 0.2 (NORMAL) E.U./dL (NORMAL) 10/09/21 16:28 Ur Leukocyte Esterase NEGATIVE (NEGATIVE) 10/09/21 16:28 Urine RBC 0-5 /HPF (0-5) 10/09/21 16:28 Urine WBC 0-3 /HPF (0-5) 10/09/21 16:28 Ur Squamous Epith Cells RARE Squamous (<= Few) 10/09/21 16:28 Urine Bacteria Moderate /HPF (None Seen) H 10/09/21 16:28 Urine Culture Comments INDICATED 10/09/21 16:28 SARS-CoV-2 (PCR) NOT DETECTED 10/09/21 14:30 - Procedures Procedures: Procedures CATARAC PHACOEMULS/ASPIR (04/27/14) INSERT LENS AT CATAR EXT (04/27/14) REPLACEMENT OF LEFT LENS WITH SYNTH SUB, PERC APPROACH (09/25/16) ABX Reporting Has patient been on IV antibiotics over the past 48 hours?: Yes Current Medications - Current Medications Current Medications: Active Medications Acetaminophen (Acetaminophen 325 Mg Tablet) 650 mg PO Q4HR PRN PRN Reason: Pain 1 to 4 Amitriptyline HCl (Amitriptyline 10 Mg Tablet) 30 mg PO QPM PRN PRN Reason: Insomnia Aspirin (Aspirin Chew 81 Mg Tablet) 81 mg PO DAILY [facility] Last Admin: 10/10/21 08:15 Dose: 81 mg Atorvastatin Calcium (Atorvastatin 40 Mg Tablet) 40 mg PO QPM [facility] Last Admin: 10/09/21 21:33 Dose: 40 mg Carvedilol (Carvedilol 12.5 Mg Tablet) 12.5 mg PO BID [facility] Last Admin: 10/10/21 08:15 Dose: 12.5 mg Duloxetine HCl (Duloxetine 30 Mg Capsule) 60 mg PO DAILY [facility] Last Admin: 10/10/21 08:15 Dose: 60 mg Enoxaparin Sodium (Enoxaparin 40 Mg/0.4 Ml Syringe) 40 mg SUBQ DAILY [facility] Last Admin: 10/10/21 08:18 Dose: 40 mg Furosemide (Furosemide 40 Mg/4 Ml Vial) 80 mg IVP BIDDIURETIC [facility] Ceftriaxone Sodium 1 gm/ (Sodium Chloride) 100 mls @ 200 mls/hr IV 1900 [facility] Last Infusion: 10/09/21 21:26 Dose: Infused Methocarbamol (Methocarbamol 500 Mg Tablet) 750 mg PO Q6HR PRN PRN Reason: Spasms Morphine Sulfate (Morphine 2 Mg/Ml Carpuject) 2 mg IVP Q2HR PRN PRN Reason: Pain 8 to 10 Ondansetron HCl (Ondansetron 4 Mg/2 Ml Vial) 4 mg IVP Q6HR PRN PRN Reason: Nausea / Vomiting Oxycodone HCl (Oxycodone 5 Mg Tablet) 5 mg PO Q4HR PRN PRN Reason: Pain 5 to 7 Pantoprazole Sodium (Pantoprazole 40 Mg Tablet) 40 mg PO QDAC [facility] Last Admin: 10/10/21 06:00 Dose: 40 mg Pregabalin (Pregabalin 25 Mg Capsule) 50 mg PO TID [facility] Last Admin: 10/10/21 05:57 Dose: 50 mg Saccharomyces Boulardii (Saccharomyces Boulardii 250 Mg Capsule) 250 mg PO BIDWM [facility] Last Admin: 10/10/21 08:14 Dose: 250 mg Sodium Chloride (Sodium Chloride Flush 0.9% 10 Ml Syringe) 10 ml IVP PRN PRN PRN Reason: NEEDED PER PROVIDER ORDERS Sodium Chloride (Sodium Chloride Flush 0.9% 10 Ml Syringe) 10 ml IVP 0100,0900,1700 [facility] Last Admin: 10/10/21 08:19 Dose: 10 ml Cetirizine HCl [Zyrtec] 10 mg PO DAILY PRN 04/27/14 Glucosam/Chond/Collagen/Hyalur [Glucosamine Chondroitin Cap] 1 each PO BID 04/27/14 Multivitamin [Multi-Vitamin Daily] 1 each PO DAILY 04/27/14 Omeprazole 20 mg PO BID 04/27/14 Aspirin [Aspir-Low] 81 mg PO DAILY 09/25/16 Ubidecarenone [Coenzyme Q-10] 10 mg PO DAILY 04/04/18 Pregabalin [Lyrica] 50 mg PO TID 05/04/19 methocarbamoL [Methocarbamol] 750 mg PO QID PRN 05/05/19 Amitriptyline [Elavil] 10 - 30 mg PO QPM PRN 10/09/21 Duloxetine HCl [Cymbalta] 60 mg PO DAILY 10/09/21 Furosemide [Lasix] 40 mg PO BID 10/09/21 HYDROcodone/ACET 7.5/325 [[place] 7.5/325] 1 tab PO BID PRN 10/09/21 carvediloL [Coreg] 12.5 mg PO BID 10/09/21
[2021-10-10] MEDS ORDERED: ZINC OXIDE 20% OINT 30 GM TUBE TOP PRN (12:36)
[2021-10-10] MEDS: FUROSEMIDE 40 MG/4 ML VIAL IVP SCH (13:42)
[2021-10-10] MEDS: oxyCODONE 5 MG TABLET PO PRN ×2 (16:08→23:20)
[2021-10-10] MEDS: ACETAMINOPHEN 325 MG TABLET PO PRN (16:08)
[2021-10-10] MEDS: cefTRIAXone 1 GM in SODIUM CHLORIDE 0.9% MINIBAG 100 ML IV SCH (18:49)
[2021-10-10] MEDS: ATORVASTATIN 40 MG TABLET PO SCH (20:42)
[2021-10-10] MEDS: methocarbamoL 500 MG TABLET PO PRN (23:00)
[2021-10-11] MEDS: SODIUM CHLORIDE FLUSH 0.9% 10 ML SYRINGE IVP SCH ×4 (02:47→23:50)
[2021-10-11 05:08] LABS: BASOPHILS % (AUTO) 0.3 %; EOSINOPHILS # (AUTO) 0.2 10^3/uL (0.0-0.7); EOSINOPHILS % (AUTO) 1.9 %; HCT - HEMATOCRIT 42.7 % (37.0-47.0); HGB - HEMOGLOBIN 12.9 g/dL (12.0-16.0); LYMPHOCYTES # (AUTO) 0.9 10^3/uL (1.5-3.5); LYMPHOCYTES % (AUTO) 10.6 %; MEAN CORPUSCULAR HGB CONC 30.2 g/dL (32.0-36.0); MEAN CORPUSCULAR VOLUME 99.3 fL (81.0-99.0); MEAN PLATELET VOLUME 11.3 fL (7.9-10.8); MONOCYTES # (AUTO) 0.9 10^3/uL (0.0-1.0); MONOCYTES % (AUTO) 10.7 %; NEUTROPHILS # (AUTO) 6.7 10^3/uL (1.5-6.6); NEUTROPHILS % (AUTO) 76.3 %; PLT - PLATELET COUNT 179 10^3/uL (130-450); RED CELL DISTRIBUTION WIDTH 14.8 % (12.0-15.0); WHITE BLOOD COUNT 8.7 x10^3/uL (4.8-10.8)
[2021-10-11 05:18] LABS: POTASSIUM 3.6 mmol/L (3.5-5.0)
[2021-10-11] MEDS: FUROSEMIDE 40 MG/4 ML VIAL IVP SCH ×2 (06:17→13:43)
[2021-10-11] MEDS: PREGABALIN 25 MG CAPSULE PO SCH ×3 (06:18→21:55)
[2021-10-11] MEDS: PANTOPRAZOLE 40 MG TABLET PO SCH (06:18)
[2021-10-11] MEDS: methocarbamoL 500 MG TABLET PO PRN (06:22)
--- NOTE | 2021-10-11 07:39 | PROVIDER PROGRESS NOTE ---
Assessment/Plan - Problem List (1) CHF exacerbation Qualifiers: Heart failure type: unspecified Qualified Code(s): I50.9 - Heart failure, unspecified Assessment/Plan: 10/11 improved, Patient had 94% Oxygen saturationon on 1 L of oxygen, BNP slightl y reduce as well. pt report her breathing is better. Continue PT and OT, Continue diuretics, continue fluid restriction and daily weight and I&Os. 10/10 Patient reported she feel better for her breathing. Patient had 91% oxygen saturation on 1 L of oxygen. Patient did not take her oxygen at home. Patient's echo study is pending. D-dimer is low. We will continue intravenous Lasix for patient, Supplemental oxygen as needed Patient present shortness of breathing, orthopnea, chest x-ray show pulmonary edema, And cardiomegaly. Patient did not take oxygen at home. Patient had 84% oxygen saturation on room air in the ER. Patient had new diagnosis of congestive heart failure, EF 45% in the last admission. Patient denies history of COPD or history of cigarette smoking. COVID-19 test is negative. ER already give patient 120 mg intravenous Lasix, We will continue intravenous Lasix in the medical floor, We will do echo study, Supplemental oxygen as needed. If patient's respiratory condition continue not improve, Her BNP is only 77, we may do the CTA to rule off PE. order d-dimer. (2) Hypoxia Conclusion/Plan: 10/11 improved. Patient had 94% Oxygen saturationon on 1 L of oxygen. Continue oxygen supplement as needed, We will gradually wean off oxygen. 10/10 improved. Patient had 91% oxygen saturation on 1 L of oxygen. Patient reported she feel better for her breathing She had a 84% oxygen saturation on room air. Patient did not take oxygen at home routinely. This x-ray show pulmonary edema, cardiomegaly. Patient had diagnosis of congestive heart failure in the last admission. Patient denies history of cigarette smoking and history of COPD. We will give patient diuretics, supplemental oxygen as needed (3) Multiple transverse process fractures Conclusion/Plan: 10/10 We will continue pain control, continue PT and OT, patient out of the bed in the chair Patient report Fall in the home, but she denied loss of consciousness. She reported because she is very weak, she could not stand up. CT of spinal show lumbar transverse process fractures. Patient denies change pattern of urination or bowel movement, Patient had a normal range of motion of bilateral lower extremity and sensation. We will order PT/OT for patient weakness's evaluation and treatment. We will pain control for patient. (4) UTI (urinary tract infection) Conclusion/Plan: 310, UA culture show positive for E. coli, sensitivity studies pending, Continue antibiotics and probiotics Patient report history of urinary incontinence and also urinary discomfortable. Patient had elevated WBC, UA primary analysis indicated infection. We will treated for patient urinary tract infection, add probiotics for patient (5) Neuropathy Conclusion/Plan: Patient report neuropathy, she Believe from her pervious chemo treatment for her breast cancer.We will resume patient home Lyrica. (6) Obesity Conclusion/Plan: Patient had a BMI 47, Now patient has hypoxia. discussed with pt for loss of weight safely, Closely monitor patient's respiratory status, Supplemental oxygen as needed (7)weakness 10/11 We will continue PT and OT, per current PT recommendation, patient is recommended to discharge to SNF - Current Meds Current Meds: Current Medications Generic Name Dose Route Start Last Admin Trade Name Freq PRN Reason Stop Dose Admin Acetaminophen 650 mg 10/09/21 14:45 10/10/21 16:08 Acetaminophen 325 Mg Tablet PO 650 mg Q4HR PRN Administration Pain 1 to 4 Aspirin 81 mg 10/09/21 14:57 10/10/21 08:15 Aspirin Chew 81 Mg Tablet PO 81 mg DAILY TAI Administration Atorvastatin Calcium 40 mg 10/09/21 21:00 10/10/21 20:42 Atorvastatin 40 Mg Tablet PO 40 mg QPM TAI Administration Carvedilol 12.5 mg 10/09/21 21:00 10/10/21 20:42 Carvedilol 12.5 Mg Tablet PO 12.5 mg BID TAI Administration Duloxetine HCl 60 mg 10/10/21 09:00 10/10/21 08:15 Duloxetine 30 Mg Capsule PO 60 mg DAILY TAI Administration Enoxaparin Sodium 40 mg 10/10/21 09:00 10/10/21 08:18 Enoxaparin 40 Mg/0.4 Ml Syringe SUBQ 40 mg DAILY TAI Administration Furosemide 80 mg 10/10/21 14:00 10/11/21 06:17 Furosemide 40 Mg/4 Ml Vial IVP 80 mg BIDDIURETIC TAI Administration Ceftriaxone Sodium 1 gm/ 100 mls @ 200 mls/hr 10/09/21 19:00 10/10/21 20:14 Sodium Chloride IV Infused 1900 [facility]AI Infusion Methocarbamol 750 mg 10/09/21 18:58 10/11/21 06:22 Methocarbamol 500 Mg Tablet PO 750 mg Q6HR PRN Administration Spasms Morphine Sulfate 2 mg 10/09/21 14:45 10/10/21 23:15 Morphine 2 Mg/Ml Carpuject IVP 2 mg Q2HR PRN Administration Pain 8 to 10 Multi-Ingredient Ointment 1 applic 10/10/21 12:36 10/10/21 12:41 Zinc Oxide 20% Oint 30 Gm Tube TOP 1 applic PRN PRN Administration Skin Care Oxycodone HCl 5 mg 10/09/21 14:45 10/10/21 23:20 Oxycodone 5 Mg Tablet PO 5 mg Q4HR PRN Administration Pain 5 to 7 Pantoprazole Sodium 40 mg 10/10/21 07:00 10/11/21 06:18 Pantoprazole 40 Mg Tablet PO 40 mg QDAC TAI Administration Pregabalin 50 mg 10/09/21 22:00 10/11/21 06:18 Pregabalin 25 Mg Capsule PO 50 mg TID TAI Administration Saccharomyces Boulardii 250 mg 10/10/21 08:00 10/10/21 17:09 Saccharomyces Boulardii 250 Mg Capsule PO 250 mg BIDWM TAI Administration Sodium Chloride 10 ml 10/09/21 17:00 10/11/21 02:47 Sodium Chloride Flush 0.9% 10 Ml Syringe IVP 10 ml 0100,0900,1700 TAI Administration - Lab Result Fish Bone Diagrams: 10/11/21 04:52 10/11/21 04:52 - Additional Planning My Orders: My Active Orders 10/10/21 07:00 Pantoprazole [Protonix] 40 mg PO QDAC 10/10/21 07:20 Fluid Restriction [RC] ONCE 10/10/21 07:21 Daily Weight [RC] 0600 10/10/21 08:00 Saccharomyces Boulardii [Florastor] 250 mg PO BIDWM 10/10/21 09:00 DULoxetine [Cymbalta] 60 mg PO DAILY Enoxaparin [Lovenox] 40 mg SUBQ DAILY 10/10/21 11:56 Out of bed 3+ hours today [RC] TID 10/10/21 12:36 Zinc Oxide 20% Oint [Zinc Oxide] 1 applic TOP PRN PRN 10/10/21 14:00 FUROSEMIDE INJ 40mg VIAL [LASIX INJ 40 mg VIAL] 80 mg IVP BIDDIURETIC 10/11/21 Social Work Consult [CONS] Routine 10/12/21 05:00 BMP - BASIC METABOLIC PANEL [CHEM] DAILYLAB BNP - B-NATRIURETIC PEPTIDE [IAI] DAILYLAB CBC - COMP BLD CT W/AUTO DIFF [HEME] DAILYLAB 10/13/21 05:00 BMP - BASIC METABOLIC PANEL [CHEM] DAILYLAB BNP - B-NATRIURETIC PEPTIDE [IAI] DAILYLAB CBC - COMP BLD CT W/AUTO DIFF [HEME] DAILYLAB 10/14/21 05:00 BMP - BASIC METABOLIC PANEL [CHEM] DAILYLAB BNP - B-NATRIURETIC PEPTIDE [IAI] DAILYLAB CBC - COMP BLD CT W/AUTO DIFF [HEME] DAILYLAB 10/15/21 05:00 BMP - BASIC METABOLIC PANEL [CHEM] DAILYLAB Subjective - Subjective Patient Reports: Feeling Better, Resting Comfortably Objective Vital Signs: Vital Signs - 24 hr 10/10/21 10/10/21 10/10/21 08:17 10:40 12:34 Temperature Heart Rate [ 66 Activity] Heart Rate [ 72 64 Brachial] Heart Rate [ Radial] Heart Rate [ 63 Supine] Respiratory 17 Rate Blood Pressure 138/61 H [Activity] Blood Pressure [Left Brachial artery] Blood Pressure 130/57 L 110/67 [Left Radial artery] Blood Pressure 110/67 [Supine] O2 Saturation 91 L 10/10/21 10/10/21 10/11/21 15:33 20:18 00:28 Temperature 36.2 C L 36.6 C 36.2 C L Heart Rate [ Activity] Heart Rate [ 66 63 Brachial] Heart Rate [ 62 Radial] Heart Rate [ Supine] Respiratory 20 20 20 Rate Blood Pressure [Activity] Blood Pressure 139/61 H 135/64 H [Left Brachial artery] Blood Pressure 127/62 [Left Radial artery] Blood Pressure [Supine] O2 Saturation 93 94 94 10/11/21 05:20 Temperature 36.6 C Heart Rate [ Activity] Heart Rate [ Brachial] Heart Rate [ 68 Radial] Heart Rate [ Supine] Respiratory 16 Rate Blood Pressure [Activity] Blood Pressure [Left Brachial artery] Blood Pressure 131/51 H [Left Radial artery] Blood Pressure [Supine] O2 Saturation 94 Oxygen O2 Source [With Activity] Room air O2 Source Nasal cannula I&O (Last 24 Hrs): Intake and Output Totals x24h 10/09/21 10/10/21 10/11/21 23:59 23:59 23:59 Intake Total 630 1365 325 Output Total 850 1750 Balance -220 -385 325 General: Alert, Oriented x3, Cooperative, No acute distress HEENT: Atraumatic Neck: Supple Lymphatic: no adenopathy Neuro: Alert, Non Focal, Oriented Times 3 Cardiovascular: Regular rate, Normal S1, Normal S2 Respiratory: Chest non-tender, No respiratory distress Abdomen: Normal bowel sounds, Soft Extremities: Normal pulses - Results Results: Laboratory Results WBC 8.7 x10^3/uL (4.8-10.8) 10/11/21 04:52 RBC 4.30 10^6/uL (4.20-5.40) 10/11/21 04:52 Hgb 12.9 g/dL (12.0-16.0) 10/11/21 04:52 Hct 42.7 % (37.0-47.0) 10/11/21 04:52 MCV 99.3 fL (81.0-99.0) H 10/11/21 04:52 MCH 30.0 pg (27.0-31.0) 10/11/21 04:52 MCHC 30.2 g/dL (32.0-36.0) L 10/11/21 04:52 RDW 14.8 % (12.0-15.0) 10/11/21 04:52 Plt Count 179 10^3/uL (130-450) 10/11/21 04:52 MPV 11.3 fL (7.9-10.8) H 10/11/21 04:52 Neut # (Auto) 6.7 10^3/uL (1.5-6.6) H 10/11/21 04:52 Lymph # (Auto) 0.9 10^3/uL (1.5-3.5) L 10/11/21 04:52 [place] # (Auto) 0.9 10^3/uL (0.0-1.0) 10/11/21 04:52 Eos # (Auto) 0.2 10^3/uL (0.0-0.7) 10/11/21 04:52 Baso # (Auto) 0.0 10^3/uL (0.0-0.1) 10/11/21 04:52 Absolute Nucleated RBC 0.00 x10^3/uL 10/11/21 04:52 Nucleated RBC % 0.0 /100WBC 10/11/21 04:52 D-Dimer 309.6 ng/mL (200.0-255.0) H 10/09/21 19:40 Sodium 139 mmol/L (135-145) 10/11/21 04:52 Potassium 3.6 mmol/L (3.5-5.0) 10/11/21 04:52 Chloride 94 mmol/L (101-111) L 10/11/21 04:52 Carbon Dioxide 35 mmol/L (21-32) H 10/11/21 04:52 Anion Gap 10.0 (6-13) 10/11/21 04:52 BUN 24 mg/dL (6-20) H 10/11/21 04:52 Creatinine 1.0 mg/dL (0.4-1.0) 10/11/21 04:52 Estimated GFR (MDRD) 53 (>89) L 10/11/21 04:52 Glucose 124 mg/dL (70-100) H 10/11/21 04:52 Calcium 9.0 mg/dL (8.5-10.3) 10/11/21 04:52 Magnesium 2.3 mg/dL (1.7-2.8) 10/09/21 10:51 Total Bilirubin 0.7 mg/dL (0.2-1.0) 10/09/21 10:51 AST 17 IU/L (10-42) 10/09/21 10:51 ALT 16 IU/L (10-60) 10/09/21 10:51 Alkaline Phosphatase 91 IU/L (42-121) 10/09/21 10:51 Total Creatine Kinase 61 IU/L (22-269) 10/09/21 10:51 Troponin I High Sens 27.0 ng/L (2.3-14.8) H* 10/09/21 18:10 B-Natriuretic Peptide 45 pg/mL (5-100) 10/11/21 04:52 Total Protein 7.2 g/dL (6.7-8.2) 10/09/21 10:51 Albumin 3.9 g/dL (3.2-5.5) 10/09/21 10:51 Globulin 3.3 g/dL (2.1-4.2) 10/09/21 10:51 Albumin/Globulin Ratio 1.2 (1.0-2.2) 10/09/21 10:51 Lipase 34 U/L (22-51) 10/09/21 10:51 Urine Color LT. YELLOW 10/09/21 16:28 Urine Clarity SL. CLOUDY (CLEAR) 10/09/21 16:28 Urine pH 5.5 PH (5.0-7.5) 10/09/21 16:28 Ur Specific [place] 1.020 (1.002-1.030) 10/09/21 16:28 Urine Protein NEGATIVE mg/dL (NEGATIVE) 10/09/21 16:28 Urine Glucose (UA) NEGATIVE mg/dL (NEGATIVE) 10/09/21 16:28 Urine Ketones NEGATIVE mg/dL (NEGATIVE) 10/09/21 16:28 Urine Occult Blood NEGATIVE (NEGATIVE) 10/09/21 16:28 Urine Nitrite POSITIVE (NEGATIVE) H 10/09/21 16:28 Urine Bilirubin NEGATIVE (NEGATIVE) 10/09/21 16:28 Urine Urobilinogen 0.2 (NORMAL) E.U./dL (NORMAL) 10/09/21 16:28 Ur Leukocyte Esterase NEGATIVE (NEGATIVE) 10/09/21 16:28 Urine RBC 0-5 /HPF (0-5) 10/09/21 16:28 Urine WBC 0-3 /HPF (0-5) 10/09/21 16:28 Ur Squamous Epith Cells RARE Squamous (<= Few) 10/09/21 16:28 Urine Bacteria Moderate /HPF (None Seen) H 10/09/21 16:28 Urine Culture Comments INDICATED 10/09/21 16:28 SARS-CoV-2 (PCR) NOT DETECTED 10/09/21 14:30 - Procedures Procedures: Procedures CATARAC PHACOEMULS/ASPIR (04/27/14) INSERT LENS AT CATAR EXT (04/27/14) REPLACEMENT OF LEFT LENS WITH SYNTH SUB, PERC APPROACH (09/25/16) ABX Reporting Has patient been on IV antibiotics over the past 48 hours?: Yes Current Medications - Current Medications Current Medications: Active Medications Acetaminophen (Acetaminophen 325 Mg Tablet) 650 mg PO Q4HR PRN PRN Reason: Pain 1 to 4 Last Admin: 10/10/21 16:08 Dose: 650 mg Amitriptyline HCl (Amitriptyline 10 Mg Tablet) 30 mg PO QPM PRN PRN Reason: Insomnia Aspirin (Aspirin Chew 81 Mg Tablet) 81 mg PO DAILY [facility] Last Admin: 10/10/21 08:15 Dose: 81 mg Atorvastatin Calcium (Atorvastatin 40 Mg Tablet) 40 mg PO QPM [facility] Last Admin: 10/10/21 20:42 Dose: 40 mg Carvedilol (Carvedilol 12.5 Mg Tablet) 12.5 mg PO BID [facility] Last Admin: 10/10/21 20:42 Dose: 12.5 mg Duloxetine HCl (Duloxetine 30 Mg Capsule) 60 mg PO DAILY [facility] Last Admin: 10/10/21 08:15 Dose: 60 mg Enoxaparin Sodium (Enoxaparin 40 Mg/0.4 Ml Syringe) 40 mg SUBQ DAILY [facility] Last Admin: 10/10/21 08:18 Dose: 40 mg Furosemide (Furosemide 40 Mg/4 Ml Vial) 80 mg IVP BIDDIURETIC [facility] Last Admin: 10/11/21 06:17 Dose: 80 mg Ceftriaxone Sodium 1 gm/ (Sodium Chloride) 100 mls @ 200 mls/hr IV 1900 [facility] Last Infusion: 10/10/21 20:14 Dose: Infused Methocarbamol (Methocarbamol 500 Mg Tablet) 750 mg PO Q6HR PRN PRN Reason: Spasms Last Admin: 10/11/21 06:22 Dose: 750 mg Morphine Sulfate (Morphine 2 Mg/Ml Carpuject) 2 mg IVP Q2HR PRN PRN Reason: Pain 8 to 10 Last Admin: 10/10/21 23:15 Dose: 2 mg Multi-Ingredient Ointment (Zinc Oxide 20% Oint 30 Gm Tube) 1 applic TOP PRN PRN PRN Reason: Skin Care Last Admin: 10/10/21 12:41 Dose: 1 applic Ondansetron HCl (Ondansetron 4 Mg/2 Ml Vial) 4 mg IVP Q6HR PRN PRN Reason: Nausea / Vomiting Oxycodone HCl (Oxycodone 5 Mg Tablet) 5 mg PO Q4HR PRN PRN Reason: Pain 5 to 7 Last Admin: 10/10/21 23:20 Dose: 5 mg Pantoprazole Sodium (Pantoprazole 40 Mg Tablet) 40 mg PO QDAC [facility] Last Admin: 10/11/21 06:18 Dose: 40 mg Pregabalin (Pregabalin 25 Mg Capsule) 50 mg PO TID [facility] Last Admin: 10/11/21 06:18 Dose: 50 mg Saccharomyces Boulardii (Saccharomyces Boulardii 250 Mg Capsule) 250 mg PO BIDWM [facility] Last Admin: 10/10/21 17:09 Dose: 250 mg Sodium Chloride (Sodium Chloride Flush 0.9% 10 Ml Syringe) 10 ml IVP PRN PRN PRN Reason: NEEDED PER PROVIDER ORDERS Sodium Chloride (Sodium Chloride Flush 0.9% 10 Ml Syringe) 10 ml IVP 0 100,0900,1700 [facility] Last Admin: 10/11/21 02:47 Dose: 10 ml Cetirizine HCl [Zyrtec] 10 mg PO DAILY PRN 04/27/14 Glucosam/Chond/Collagen/Hyalur [Glucosamine Chondroitin Cap] 1 each PO BID 04/27/14 Multivitamin [Multi-Vitamin Daily] 1 each PO DAILY 04/27/14 Omeprazole 20 mg PO BID 04/27/14 Aspirin [Aspir-Low] 81 mg PO DAILY 09/25/16 Ubidecarenone [Coenzyme Q-10] 10 mg PO DAILY 04/04/18 Pregabalin [Lyrica] 50 mg PO TID 05/04/19 methocarbamoL [Methocarbamol] 750 mg PO QID PRN 05/05/19 Amitriptyline [Elavil] 10 - 30 mg PO QPM PRN 10/09/21 Duloxetine HCl [Cymbalta] 60 mg PO DAILY 10/09/21 Furosemide [Lasix] 40 mg PO BID 10/09/21 HYDROcodone/ACET 7.5/325 [[place] 7.5/325] 1 tab PO BID PRN 10/09/21 carvediloL [Coreg] 12.5 mg PO BID 10/09/21
[2021-10-11] MEDS: SACCHAROMYCES BOULARDII 250 MG CAPSULE PO SCH ×2 (07:58→19:58)
[2021-10-11] MEDS: carvediloL 12.5 MG TABLET PO SCH ×2 (07:58→21:54)
[2021-10-11] MEDS: DULoxetine 30 MG CAPSULE PO SCH (07:58)
[2021-10-11] MEDS: ASPIRIN CHEW 81 MG TABLET PO SCH (07:58)
[2021-10-11] MEDS: ENOXAPARIN 40 MG/0.4 ML SYRINGE SUBQ SCH (07:58)
[2021-10-11] MEDS: oxyCODONE 5 MG TABLET PO PRN (11:44)
[2021-10-11] MEDS: cefTRIAXone 1 GM in SODIUM CHLORIDE 0.9% MINIBAG 100 ML IV SCH (19:59)
[2021-10-11] MEDS: ATORVASTATIN 40 MG TABLET PO SCH (21:54)
[2021-10-11] MEDS: ACETAMINOPHEN 325 MG TABLET PO PRN (23:50)
[2021-10-12] MEDS: FUROSEMIDE 40 MG/4 ML VIAL IVP SCH ×2 (06:16→13:28)
[2021-10-12] MEDS: PANTOPRAZOLE 40 MG TABLET PO SCH (06:21)
[2021-10-12] MEDS: PREGABALIN 25 MG CAPSULE PO SCH ×2 (06:22→13:28)
[2021-10-12 06:30] LABS: BASOPHILS % (AUTO) 0.3 %; EOSINOPHILS # (AUTO) 0.2 10^3/uL (0.0-0.7); HCT - HEMATOCRIT 43.4 % (37.0-47.0); HGB - HEMOGLOBIN 13.4 g/dL (12.0-16.0); LYMPHOCYTES # (AUTO) 0.9 10^3/uL (1.5-3.5); LYMPHOCYTES % (AUTO) 13.7 %; MEAN CORPUSCULAR HEMOGLOBIN 30.2 pg (27.0-31.0); MEAN CORPUSCULAR HGB CONC 30.9 g/dL (32.0-36.0); MEAN CORPUSCULAR VOLUME 97.7 fL (81.0-99.0); MEAN PLATELET VOLUME 11.5 fL (7.9-10.8); MONOCYTES # (AUTO) 0.7 10^3/uL (0.0-1.0); MONOCYTES % (AUTO) 9.8 %; NEUTROPHILS # (AUTO) 4.9 10^3/uL (1.5-6.6); NEUTROPHILS % (AUTO) 72.9 %; PLT - PLATELET COUNT 185 10^3/uL (130-450); RED BLOOD COUNT 4.44 10^6/uL (4.20-5.40); RED CELL DISTRIBUTION WIDTH 14.2 % (12.0-15.0); WHITE BLOOD COUNT 6.7 x10^3/uL (4.8-10.8)
[2021-10-12 06:40] LABS: CALCIUM 9.2 mg/dL (8.5-10.3); CREATININE 0.8 mg/dL (0.4-1.0); POTASSIUM 3.4 mmol/L (3.5-5.0)
[2021-10-12] MEDS: ACETAMINOPHEN 325 MG TABLET PO PRN (07:43)
[2021-10-12] MEDS: oxyCODONE 5 MG TABLET PO PRN (07:44)
[2021-10-12] MEDS: SACCHAROMYCES BOULARDII 250 MG CAPSULE PO SCH (07:44)
[2021-10-12] MEDS: SODIUM CHLORIDE FLUSH 0.9% 10 ML SYRINGE IVP SCH (07:45)
--- NOTE | 2021-10-12 08:28 | PHARMACY PROGRESS NOTE ---
- Best Possible Medication History Admit Date and Time: 10/10/21 1023 Processed by: Pharmacy Medication History completed: Yes Patient Interview: Pt unable to participate Secondary Source(s): Physician records, Insurance records As the person ultimately responsible for medication therapy, providers are able to order a medication from an existing home medication list in [facility] via the "Reconcile Routine" prior to Confirmation of that medication by clinical support nurse. Such practice is discouraged except when the physician, in their clinical judgment, deems that a medical need exists for a medication without regard to previous use.
[2021-10-12] MEDS: DULoxetine 30 MG CAPSULE PO SCH (08:31)
[2021-10-12] MEDS: ASPIRIN CHEW 81 MG TABLET PO SCH (08:31)
[2021-10-12] MEDS: carvediloL 12.5 MG TABLET PO SCH (08:32)
[2021-10-12] MEDS: ENOXAPARIN 40 MG/0.4 ML SYRINGE SUBQ SCH (08:32)
--- NOTE | 2021-10-12 09:19 | DISCHARGE SUMMARY ---
Discharge Summary Admit Date: 10/09/21 Discharge Date: 10/12/21 Discharging Provider: Wanda Jackson Primary Care Provider: Miryam Potts Code Status: Do Not Attempt Resuscitation Condition at Discharge: Fair Discharge Disposition: 06 Home Health Service - DIAGNOSES Admission Diagnoses: CHF Exacerbation Hypoxia Multiple transverse process fractures UTI Neuropathy Obesity Discharge Diagnoses with Status of Each Condition: CHF Exacerbation: Improved. Discharged home with supplemental oxygen 2L at rest Hypoxia: Improved. Discharged home with supplemental oxygen 2L at rest Multiple transverse process fractures:Pain management with tylenol UTI: Treated with Rocephin for 3 days Neuropathy Obesity: patient declined SNF for rehab - HPI History of Present Illness: Per HPI This is a 80-year old female with a past medical history significant for hypertension, Obesity, neuropathy, systolic heart failure, breast cancer which was diagnosis and treated at 2016, Who present to ER complain Of difficulty breathing and fall evaluation. pt report she has increased weakness. Today while she was trying to get out of the bathtub, she fall. She states she slipped in the bathtub and fell against the edge of the tile with her low back. she denies Loss of consciousness. She has difficulty getting out of that position at the time. EMS was called to help her up and brought her to ER for evaluation. she Complains of pain in the low back. She denies chest pain, fever, chill. Patient states she has been having some dyspnea, special on exertion. she also report she need to sit up for her breath and complain of orthopnea. Patient also report urinary incontinence with discomfort CT of lumbar spinal show Multiple mild displaced transverse process of the fracture. Patient denies acute dysfunction of urination or bowel movement after fall. Chest x-ray show cardiomegaly with pulmonary edema pattern. Discussed CODE STATUS with the patient, patient hope to have DNR - HOSPITAL COURSE Hospital Course: Patient was started on Lasix 80 mg IV twice daily after an initial administration of 120 mg of Lasix IV in the ED. She was maintained on supplemental oxygen via nasal cannula. By the day of discharge she underwent an oxygen desaturation study which showed she was hypoxic on room air with oxygen saturation of 86%. On 2 L at rest her oxygen saturation improved to 92%. An ambulatory study was not done because the patient is nonambulatory so exertional oxygen saturation was not measured. She was discharged home with a prescription of supplemental oxygen via nasal cannula at 2 L/min at rest to treat her CHF. She will resume her Lasix at home dose of 40 mg p.o. twice daily. 2D echocardiogram was not repeated because the patient's last echocardiogram done 2 months prior showed an EF of 45%. She had multiple transverse process fractures as a result of a mechanical fall at home She was seen by physical therapy and it was strongly recommended that she go to a long term facility for rehab however the patient declined this recommendation and requested to be discharged home. She was discharged home with home health PT/OT/bath aide/long term. Patient urine culture grew E. coli. She reported urinary incontinence and urinary discomfort. She was treated with Rocephin for 3 days. This was discontinued by the day of discharge. - ALLERGIES Allergies/Adverse Reactions: Allergies Allergy/AdvReac Type Severity Reaction Status Date / Time No Known Drug Allergies Allergy Verified 10/09/21 10:14 - MEDICATIONS Home Medications: Ambulatory Orders Medication Instructions Recorded Confirmed Omeprazole 20 mg PO BID 04/27/14 10/09/21 Aspirin [Aspir-Low] 81 mg PO DAILY 09/25/16 10/09/21 Losartan [Cozaar] 100 mg ORAL DAILY #0 04/06/18 10/09/21 Simvastatin [Zocor] 40 mg PO QPM #0 04/06/18 10/09/21 Pregabalin [Lyrica] 50 mg PO TID 05/04/19 10/09/21 methocarbamoL [Methocarbamol] 750 mg PO QID PRN 05/05/19 10/09/21 Amitriptyline [Elavil] 10 - 30 mg PO QPM PRN 10/09/21 10/09/21 Duloxetine HCl [Cymbalta] 60 mg PO DAILY 10/09/21 10/09/21 Furosemide [Lasix] 40 mg PO BID 10/09/21 10/09/21 HYDROcodone/ACET 7.5/325 [[place] 1 tab PO BID PRN 10/09/21 10/09/21 7.5/325] carvediloL [Coreg] 12.5 mg PO BID 10/09/21 10/09/21 - PHYSICAL EXAM AT DISCHARGE General Appearance: positive: No acute distress, Alert, Other (Obese) Eyes Bilateral: positive: PERRL, EOMI ENT: positive: No signs of dehydration Neck: positive: No JVD, Trachea midline Respiratory: positive: Chest non-tender, Other (Mild crackles) Cardiovascular: positive: Regular rate & rhythm, No murmur Abdomen: positive: Non-tender, No organomegaly, Nml bowel sounds, No distention. negative: Guarding, Rebound Back: positive: Nml inspection Skin: positive: Color nml, No rash, Warm, Dry Extremities: positive: Non-tender, Full ROM, Nml appearance, Pedal edema (+1) Neurologic/Psychiatric: positive: Oriented x3, Mood/affect nml, Weakness (generalized) - LABS Result Diagrams: 10/12/21 05:35 10/12/21 05:35 - TIME SPENT Time Spent in Discharge (Minutes): 20
--- NOTE | 2021-10-12 09:19 | Discharge Plan ---
Discharge Plan Problem Reviewed?: Yes Disposition: Home Health Service Condition: Fair Diet: Low Sodium Activity Restrictions: Per Physical Therapy Assistance Devices: Walker Weight Bearing: Full Weight Instruction Topics: Heart Failure Warning Signs, Heart Failure Tracking Weight, Heart Failure Diet Changes Health Concerns: You were admitted on 10/09/21 after a fall at home. You were noted to be dyspneic when evaluated in the emergency room. Chest x-ray showed some pulmonary edema. You were admitted for further treatment to include diuresis and pain management. It was a mechanical fall. Work-up in the ED showed you had multiple transverse process fractures. He was seen by physical therapy and it was highly recommended that you go to a ch[facility] facility for rehabilitation to build more strength. You declined This recommendation and asked to go home rather. Consequently when it was time for discharge she was discharged home with home health PT/OT/bath aide/skilled nurse. During your hospital stay you were treated with Lasix 80 mg IV twice daily. At home you are on Lasix 40 mg p.o. twice daily. Upon returning home we will resume your home dose of Lasix. An oxygen desaturation study was done. You were hypoxic at rest on room air with oxygen saturation of 86%. On 2 L/min at rest your oxygen saturation improved to 92% consequently you are being discharged home with supplemental oxygen of 2 L/min at rest to treat CHF. You were discharged in stable condition. You may follow-up with your primary care physician in 7 to 10 days or as needed. The above plan was discussed with you, you expressed understanding and agreeable with the plan. No Smoking: If you smoke, Please STOP! Call for help. Follow-up with: Miryam Potts PA-C [Primary Care Provider] -
[2021-10-12 13:28] VITALS: BP 130/61
== END 2021-10-12 16:15 | disposition home health service (06) | DRG 291 ==
LOC: EDUNIT# → ED 09:59 → MS2 14:45 → OBSVTOIN 10-10 10:23
PROVIDERS: ADMIT Nurse Practitioner Gerontology; ATTEND Internal Medicine
DX: I11.0 Hypertensive heart disease with heart failure (principal); I50.23 Acute on chronic systolic (congestive) heart failure; S32.038A Other fracture of third lumbar vertebra, initial encounter for closed fracture; S30.0XXA Contusion of lower back and pelvis, initial encounter; S32.028A Other fracture of second lumbar vertebra, initial encounter for closed fracture; S32.018A Other fracture of first lumbar vertebra, initial encounter for closed fracture; Z68.42 Body mass index [BMI] 45.0-49.9, adult; N39.0 Urinary tract infection, site not specified; Z20.822 Contact with and (suspected) exposure to COVID-19; R09.02 Hypoxemia; G62.9 Polyneuropathy, unspecified; G89.29 Other chronic pain; B96.20 Unspecified Escherichia coli [E. coli] as the cause of diseases classified elsewhere; W18.2XXA Fall in (into) shower or empty bathtub, initial encounter; E66.9 Obesity, unspecified; E78.00 Pure hypercholesterolemia, unspecified; K21.9 Gastro-esophageal reflux disease without esophagitis; M19.90 Unspecified osteoarthritis, unspecified site; M79.7 Fibromyalgia; L71.9 Rosacea, unspecified; I35.1 Nonrheumatic aortic (valve) insufficiency; Z79.82 Long term (current) use of aspirin; Z79.899 Other long term (current) drug therapy; Z82.49 Family history of ischemic heart disease and other diseases of the circulatory system; Z85.3 Personal history of malignant neoplasm of breast
CPT/HCPCS: 36415; 71045; 72131; 80048; 80053; 81001; 82550; 83690; 83735; 83880; 84484; 85025; 85379; 87086; 87181; 87635; 93306; 94761; 96365; 96372; 96375; 96376; 97162; 97165; 97530; 99284; 99285; A9270; J1170; J1650

== ENCOUNTER 2021-10-12 16:21 | Outpatient (CLI) | payer MEDICARE, BC | END 2021-10-12 16:22 | disposition home or self-care (01) | LOC: EMS 16:21 | PROVIDERS: ATTEND Internal Medicine | DX: I50.9 Heart failure, unspecified (principal); E66.01 Morbid (severe) obesity due to excess calories; R53.1 Weakness | CPT/HCPCS: A0425; A0428 ==

== ENCOUNTER 2022-01-12 10:51 | Outpatient (CLI) | payer MEDICARE, BC | END 2022-01-12 10:52 | disposition critical access hospital (66) | LOC: EMS 10:51 | DX: R53.1 Weakness (principal); R53.83 Other fatigue; R06.02 Shortness of breath | CPT/HCPCS: A0425; A0427 ==

== ENCOUNTER 2022-01-12 11:07 | Observation (INO) | payer MEDICARE, BC ==
[2022-01-12] MEDS ORDERED: SODIUM CHLORIDE 0.9% 500 ML IV STA ×2 (11:31→16:12)
--- NOTE | 2022-01-12 11:36 | ED Physician Documentation ---
History of Present Illness - Stated complaint Stated Complaint: WEAKNESS/LETHARGIC - Chief complaint Chief Complaint: General - History obtained from History obtained from: Patient - History of Present Illness Timing: Today - Additonal information Additional information: 81-year-old female with a history of congestive heart failure, COPD and fibromyalgia, who is on oxygen at home has developed increased weakness over the past 2 days to where she is having trouble using her walker she has now come to the emergency department for evaluation. She states that she uses a diuretic she has been continuing to take her medications and she does feel quite dry mouth and weak. She feels she might be dehydrated. Review of Systems Constitutional: denies: Fever Eyes: denies: Decreased vision Ears: denies: Ear pain Nose: denies: Congestion Throat: denies: Sore throat Cardiac: reports: Pedal edema. denies: Chest pain / pressure, Palpitations Respiratory: reports: Dyspnea. denies: Cough, Wheezing GI: denies: Abdominal Pain, Nausea, Vomiting, Constipation, Diarrhea : reports: Frequency. denies: Dysuria PD PAST MEDICAL HISTORY - Past Medical History Cardiovascular: Hypertension, High cholesterol, Valve disorder Respiratory: Sleep apnea Neuro: Peripheral neuropathy Endocrine/Autoimmune: None GI: GERD : Frequency HEENT: Chronic vision loss Psych: None Musculoskeletal: Osteoarthritis, Fibromyalgia, Chronic back pain, Other Derm: Rosacea - Past Surgical History Past Surgical History: Yes General: Cholecystectomy, Appendectomy, Colonoscopy /PLANER STONE: Hysterectomy, Oophrectomy, Other HEENT: Cataracts Derm: Skin cancer surgery - Present Medications Home Medications: Ambulatory Orders Medication Instructions Recorded Confirmed Omeprazole 20 mg PO BID 04/27/14 01/12/22 Aspirin [Aspir-Low] 81 mg PO DAILY 09/25/16 01/12/22 Losartan [Cozaar] 100 mg ORAL DAILY #0 04/06/18 01/12/22 Simvastatin [Zocor] 40 mg PO QPM #0 04/06/18 01/12/22 Pregabalin [Lyrica] 50 mg PO TID 05/04/19 01/12/22 methocarbamoL [Methocarbamol] 750 mg PO QID PRN 05/05/19 01/12/22 Amitriptyline [Elavil] 10 - 30 mg PO QPM PRN 10/09/21 01/12/22 Duloxetine HCl [Cymbalta] 60 mg PO DAILY 10/09/21 01/12/22 Furosemide [Lasix] 40 mg PO BID 10/09/21 01/12/22 HYDROcodone/ACET 7.5/325 [[place] 1 tab PO BID PRN 10/09/21 01/12/22 7.5/325] carvediloL [Coreg] 12.5 mg PO BID 10/09/21 01/12/22 - Allergies Allergies/Adverse Reactions: Allergies Allergy/AdvReac Type Severity Reaction Status Date / Time No Known Drug Allergies Allergy Verified 01/12/22 11:16 - Social History Does the pt smoke?: No Smoking Status: Never smoker Does the pt drink ETOH?: No Does the pt have substance abuse?: Yes - Immunizations Immunizations are current?: Yes - POLST Patient has POLST: No PD ED PE NORMAL - Vitals Vital signs reviewed: Yes (hypertensive ) - General General: Alert and oriented X 3, No acute distress, Well developed/nourished, Other (81 y/o obese female with nasal canula O2 has dry mucous membranes and has NAD) - HEENT HEENT: Atraumatic, PERRL, EOMI, Other (dry mucous membranes ) - Neck Neck: Supple, no meningeal sign, No bony TTP - Cardiac Cardiac: RRR, No murmur - Respiratory Respiratory: No respiratory distress, Other (diminished clear breath sounds. 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 2-12 intact, No motor deficit, No sensory deficit, Normal speech Eye Opening: Spontaneous Motor: Obeys Commands Verbal: Oriented GCS Score: 15 - Psych Psych: Normal mood, Normal affect Results - Vitals Vitals: Vital Signs - 24 hr 01/12/22 01/12/22 01/12/22 14:37 16:00 17:37 Temperature Heart Rate 71 75 74 Respiratory 22 23 20 Rate Blood Pressure 167/80 H 177/55 H O2 Saturation 91 L 93 91 L 01/12/22 01/12/22 01/13/22 19:53 21:07 01:13 Temperature Heart Rate 75 66 61 Respiratory 20 18 20 Rate Blood Pressure 181/44 H 157/126 H 149/73 H O2 Saturation 94 93 92 01/13/22 01/13/22 05:43 10:09 Temperature 36.2 C L Heart Rate 59 L 67 Respiratory 14 18 Rate Blood Pressure 141/62 H 156/72 H O2 Saturation 94 95 Oxygen O2 Source [] Room air O2 Source Nasal cannula - Labs Labs: Laboratory Tests 01/12/22 01/12/22 01/12/22 11:41 11:41 11:41 WBC 17.8 H RBC 3.97 L Hgb 11.9 L Hct 40.3 MCV 101.5 H MCH 30.0 MCHC 29.5 L RDW 14.2 Plt Count 207 MPV 11.2 H Neut # (Auto) 15.2 H Lymph # (Auto) 0.8 L [place] # (Auto) 1.3 H Eos # (Auto) 0.3 Baso # (Auto) 0.0 Absolute Nucleated RBC 0.00 Nucleated RBC % 0.0 Sodium 140 Potassium 4.4 Chloride 95 L Carbon Dioxide 36 H Anion Gap 9.0 BUN 26 H Creatinine 1.0 Estimated GFR (MDRD) 53 L Glucose 140 H Calcium 9.3 Total Bilirubin 0.4 AST 13 ALT 16 Alkaline Phosphatase 93 B-Natriuretic Peptide 97 Total Protein 7.2 Albumin 3.5 Globulin 3.7 Albumin/Globulin Ratio 0.9 L Lipase 28 Urine Color Urine Clarity Urine pH Ur Specific [place] Urine Protein Urine Glucose (UA) Urine Ketones Urine Occult Blood Urine Nitrite Urine Bilirubin Urine Urobilinogen Ur Leukocyte Esterase Urine RBC Urine WBC Ur Squamous Epith Cells Urine Bacteria Ur Microscopic Review Urine Culture Comments 01/12/22 01/13/22 01/13/22 17:34 06:19 06:19 WBC 10.9 H RBC 3.84 L Hgb 11.7 L Hct 38.1 MCV 99.2 H MCH 30.5 MCHC 30.7 L RDW 14.3 Plt Count 205 MPV 11.1 H Neut # (Auto) 8.5 H Lymph # (Auto) 1.0 L [place] # (Auto) 1.0 Eos # (Auto) 0.4 Baso # (Auto) 0.0 Absolute Nucleated RBC 0.00 Nucleated RBC % 0.0 Sodium 140 Potassium 4.1 Chloride 99 L Carbon Dioxide 36 H Anion Gap 5.0 L BUN 21 H Creatinine 0.9 Estimated GFR (MDRD) 60 L Glucose 126 H Calcium 9.6 Total Bilirubin AST ALT Alkaline Phosphatase B-Natriuretic Peptide Total Protein Albumin Globulin Albumin/Globulin Ratio Lipase Urine Color YELLOW Urine Clarity CLOUDY Urine pH 6.5 Ur Specific [place] 1.015 Urine Protein NEGATIVE Urine Glucose (UA) NEGATIVE Urine Ketones NEGATIVE Urine Occult Blood SMALL H Urine Nitrite POSITIVE H Urine Bilirubin NEGATIVE Urine Urobilinogen 0.2 (NORMAL) Ur Leukocyte Esterase TRACE H Urine RBC 6-10 H Urine WBC 4-5 Ur Squamous Epith Cells FEW Squamous Urine Bacteria Many H Ur Microscopic Review INDICATED Urine Culture Comments INDICATED - Rads (name of study) chest Radiology: Prelim report reviewed (Impression: Limited study demonstrated cardiomegaly with interstitial prominence. Please correlate with patient examination, history, and laboratory values for underlying congestive heart failure.), EMP read indepedently, See rad report Procedures - IVC sono (time) 1130 Bedside IVC sono: IVC measures (cm) (1.22), IVC collapsed c insp (cm) (complete), Dehydration (est 1 liter deficit) PD MEDICAL DECISION MAKING - ED course Complexity details: reviewed results, re-evaluated patient, considered differential, d/w patient ED course: 81-year-old female with history of COPD and CHF presents to the emergency department with weakness and she is found to be dehydrated on interrogation of the inferior vena cava and she is administered a 500 mL bolus of saline with some improvement in her general feeling of wellbeing however she continued to be weak and required a 4 person assist to get in and out of bed. We considered admission to the hospital at that point. We were unable to obtain a urine specimen from the patient as the nurses 3 of them working together were unable to provide a catheterized specimen. The nurse came back to the office with a sore arm from trying. Eventually we were able to obtain a urine specimen which did identify that this is a source of infection. We do not have beds available in the hospital this evening and at shift change care is turned over to Dr. Solano with anticipation of further treatment in the emergency department until a bed is available tomorrow or the patient improves dramatically. Departure - Departure Disposition: ED Place in Observation Clinical Impression: Dehydration UTI (urinary tract infection) Qualifiers: Urinary tract infection type: acute cystitis Hematuria presence: without hematuria Qualified Code(s): N30.00 - Acute cystitis without hematuria
[2022-01-12 11:47] LABS: BASOPHILS % (AUTO) 0.2 %; EOSINOPHILS # (AUTO) 0.3 10^3/uL (0.0-0.7); EOSINOPHILS % (AUTO) 1.7 %; HCT - HEMATOCRIT 40.3 % (37.0-47.0); HGB - HEMOGLOBIN 11.9 g/dL (12.0-16.0); LYMPHOCYTES # (AUTO) 0.8 10^3/uL (1.5-3.5); LYMPHOCYTES % (AUTO) 4.7 %; MEAN CORPUSCULAR HGB CONC 29.5 g/dL (32.0-36.0); MEAN CORPUSCULAR VOLUME 101.5 fL (81.0-99.0); MEAN PLATELET VOLUME 11.2 fL (7.9-10.8); MONOCYTES # (AUTO) 1.3 10^3/uL (0.0-1.0); MONOCYTES % (AUTO) 7.5 %; NEUTROPHILS # (AUTO) 15.2 10^3/uL (1.5-6.6); NEUTROPHILS % (AUTO) 85.4 %; PLT - PLATELET COUNT 207 10^3/uL (130-450); RED BLOOD COUNT 3.97 10^6/uL (4.20-5.40); RED CELL DISTRIBUTION WIDTH 14.2 % (12.0-15.0); WHITE BLOOD COUNT 17.8 x10^3/uL (4.8-10.8)
--- NOTE | 2022-01-12 12:02 | XRAY Report ---
PROCEDURE: Chest 1 View X-Ray INDICATIONS: dyspnea TECHNIQUE: One view of the chest was acquired. COMPARISON: 10/09/2021, 09/01/2017 FINDINGS: Surgical changes and devices: None. Lungs and pleura: On the semiupright images, no large pneumothorax or large pleural effusions can be seen. No focal infiltrates are seen. Generalized interstitial prominence can be seen. Mediastinum: Mediastinal contours appear normal. Heart size is at least moderately enlarged. Bones and chest wall: No suspicious bony lesions. Age-appropriate degenerative changes are seen. Overlying soft tissues appear unremarkable. IMPRESSION: Limited study demonstrating cardiomegaly and interstitial prominence. Please correlate with patient e xamination, history, and laboratory values for underlying congestive heart failure. Reviewed by: Pito Nazario MD on 01/12/2022 11:01 AM K[facility]LIN Approved by: Pito Nazario MD on 01/12/2022 11:01 AM K[facility]LIN Station ID: [id number]
[2022-01-12 12:03] LABS: ALBUMIN 3.5 g/dL (3.2-5.5); ALBUMIN/GLOBULIN RATIO 0.9 (1.0-2.2); BILIRUBIN,TOTAL 0.4 mg/dL (0.2-1.0); CALCIUM 9.3 mg/dL (8.5-10.3); POTASSIUM 4.4 mmol/L (3.5-5.0); TOTAL PROTEIN 7.2 g/dL (6.7-8.2)
[2022-01-12 17:41] LABS: BILIRUBIN,URINE NEGATIVE (NEGATIVE); GLUCOSE, URINE (UA) NEGATIVE (NEGATIVE); KETONES,URINE (UA) NEGATIVE (NEGATIVE); LEUKOCYTE ESTERASE, URINE TRACE (NEGATIVE); NITRITE,URINE POSITIVE (NEGATIVE); OCCULT BLOOD,URINE SMALL (NEGATIVE); PH,URINE 6.5 PH (5.0-7.5); PROTEIN,URINE NEGATIVE (NEGATIVE); UROBILINOGEN,URINE 0.2 (NORMAL) E.U./dL (NORMAL)
[2022-01-12 17:43] LABS: CLARITY,URINE CLOUDY (CLEAR)
[2022-01-12] MEDS ORDERED: cefTRIAXone 2 GM in SODIUM CHLORIDE 0.9% MINIBAG 100 ML IV STA (17:47)
[2022-01-12] MEDS ORDERED: cefTRIAXone 2 GM VIAL ONE (18:02)
[2022-01-12 18:06] LABS: BACTERIA,URINE Many /HPF (None Seen); SQUAMOUS EPITHELIAL CELL,UR FEW Squamous (<= Few)
[2022-01-12] MEDS: methocarbamoL 500 MG TABLET PO SCH ×2 (19:06→21:43)
[2022-01-12] MEDS: HYDROcod/ACETAM 7.5 MG/325 MG TABLET PO PRN (19:06)
[2022-01-12] MEDS: PANTOPRAZOLE 40 MG TABLET PO SCH (21:43)
[2022-01-12] MEDS: carvediloL 12.5 MG TABLET PO SCH (21:43)
[2022-01-12] MEDS: FUROSEMIDE 20 MG TABLET PO SCH (21:43)
[2022-01-12] MEDS: AMITRIPTYLINE 25 MG TABLET PO SCH (21:43)
[2022-01-12] MEDS: PREGABALIN 25 MG CAPSULE PO SCH (21:44)
[2022-01-13] MEDS: PREGABALIN 25 MG CAPSULE PO SCH ×3 (05:47→21:54)
[2022-01-13 06:27] LABS: BASOPHILS % (AUTO) 0.3 %; EOSINOPHILS # (AUTO) 0.4 10^3/uL (0.0-0.7); EOSINOPHILS % (AUTO) 3.3 %; HCT - HEMATOCRIT 38.1 % (37.0-47.0); HGB - HEMOGLOBIN 11.7 g/dL (12.0-16.0); LYMPHOCYTES % (AUTO) 9.4 %; MEAN CORPUSCULAR HEMOGLOBIN 30.5 pg (27.0-31.0); MEAN CORPUSCULAR HGB CONC 30.7 g/dL (32.0-36.0); MEAN CORPUSCULAR VOLUME 99.2 fL (81.0-99.0); MEAN PLATELET VOLUME 11.1 fL (7.9-10.8); MONOCYTES % (AUTO) 8.8 %; NEUTROPHILS # (AUTO) 8.5 10^3/uL (1.5-6.6); NEUTROPHILS % (AUTO) 77.8 %; PLT - PLATELET COUNT 205 10^3/uL (130-450); RED BLOOD COUNT 3.84 10^6/uL (4.20-5.40); RED CELL DISTRIBUTION WIDTH 14.3 % (12.0-15.0); WHITE BLOOD COUNT 10.9 x10^3/uL (4.8-10.8)
[2022-01-13 06:51] LABS: CALCIUM 9.6 mg/dL (8.5-10.3); CREATININE 0.9 mg/dL (0.4-1.0); POTASSIUM 4.1 mmol/L (3.5-5.0)
[2022-01-13] MEDS: FUROSEMIDE 20 MG TABLET PO SCH ×2 (08:38→21:53)
[2022-01-13] MEDS: methocarbamoL 500 MG TABLET PO SCH ×4 (08:38→21:54)
[2022-01-13] MEDS: PANTOPRAZOLE 40 MG TABLET PO SCH ×2 (08:38→21:54)
[2022-01-13] MEDS: carvediloL 12.5 MG TABLET PO SCH ×2 (08:38→21:53)
[2022-01-13] MEDS: DULoxetine 30 MG CAPSULE PO SCH (08:38)
[2022-01-13] MEDS ORDERED: ONDANSETRON 4 MG/2 ML VIAL IVP PRN (16:39)
[2022-01-13] MEDS ORDERED: ONDANSETRON ODT 4 MG TABLET TL PRN (16:39)
[2022-01-13] MEDS ORDERED: SODIUM CHLORIDE FLUSH 0.9% 10 ML SYRINGE IVP PRN (16:39)
[2022-01-13] MEDS ORDERED: ACETAMINOPHEN 325 MG TABLET PO PRN (16:39)
[2022-01-13] MEDS: SODIUM CHLORIDE FLUSH 0.9% 10 ML SYRINGE IVP SCH (18:11)
[2022-01-13] MEDS: AMITRIPTYLINE 25 MG TABLET PO SCH (21:53)
[2022-01-13] MEDS ORDERED: ZINC OXIDE 20% OINT 30 GM TUBE TOP PRN (22:27)
--- NOTE | 2022-01-13 23:58 | HISTORY & PHYSICAL EXAMINATION ---
Chief Complaint - Chief Complaint Chief Complaint: generalized weakness and diarrhea History of Present Illness - Admitted From Admitted From:: home - History Obtained From Records Reviewed: [facility] and codetag Health History obtained from: patient Exam Limitations: fatigue - History of Present Illness HPI Comment/Other: This is an 81-year-old female who lives in her own home with her who has dementia and regards her self as still completely independent with driving, housekeeping, activities of daily living and became ill at the beginning of December with diarrhea, generalized fatigue, but denied fever, chills. She has chronic congestive heart failure and takes a diuretic. The generalized fatigue became generalized weakness. Gotten to the point that for 2 days she could not even use her walker so she came to the emergency room because she felt like she was dehydrated. She was also described as having more shortness of breath. She came to the emergency room January 12 after EMS was called to the house. The emergency room provider felt that she should be placed in observation for treatment but there are no beds available. Today we recontacted when there was a few beds that became open I will place the patient under observation status. Yesterday in the emergency room she was with a heart rate of 71, respirations of 22, and a blood pressure of 167/80 and 91% on 2 L. Because of COPD, the patient is on chronic oxygen at home. This is a stable level for her. On physical exam she was alert and oriented. Had dry oral mucosa. Diminished breath sounds at the bases of her lungs but did not have respiratory distress. Mild edema around her ankles. Interrogation of her inferior vena cava showed her to be dehydrated as well. She was given a 1000 cc bolus with some improvement in her generalized feeling of wellbeing but she continued to be weak and required a 4 person assist to get in and out of bed. It took quite a bit of effort but they were able to do a urinalysis that showed her to have a UTI. She was given Rocephin.Urinalysis had positive nitrates, trace leukocyte Estrace, and a few squamous cells with many bacteria. Culture has been done. Although this is felt to be a contaminated specimen, it is being treated as UTI. Yet when the medical record is reviewed, this patient requires caregivers, uses a walker, and is probably not been really able to take care of her self for several Years. She was admitted October 09 through March 12 for exacerbation of chronic systolic heart failure. She was try to get out of a bathtub and fell and fell against the edge of the tile with her low back. She had multiple transverse process fractures as a result of her mechanical fall. Chest x-ray showed cardiomegaly and pulmonary edema. She was treated with high-dose Lasix of 80 mg twice a day. Urine culture grew out E. coli and she was treated with Rocephin for 3 days. At discharge she was found to be hypoxic on room air at 86% and required 2 L. It was recommended she go to a intermediate facility but she refused. As such she was sent home with home health PT/OT, bath aide, and intermediate.In the past she has been so immobile that she has developed bilateral buttocks decubiti that needed wound care management in 2019. She also has a history of a fall in her own home in April 2018. She lay on the ground for up to 10 hours. She was found by a neighbor and came to the emergency room and had rhabdomyolysis. She has had several echocardiograms: July 2018 ejection fraction was 65%. Mild pulmonary hypertension with a PASP of 38. Mild aortic regurgitation. No stenosis May 2019 echo had a mild to moderately globally impaired ejection fraction of 40 to 45%. Moderate to severe aortic regurgitation. Moderate mitral regurgitation and a pleural effusion. July 2020 echocardiogram had an improved ejection fraction of 55 to 60%. Grade 1 diastolic dysfunction. Are normal right ventricle. Left atrium is moderately increased in size with right atrium severely increased in size. Trace aortic regurgitation. October 2021 echocardiogram had normal LV size and systolic function at 60 to 65%. Normal RV size and systolic function. Mild aortic valve sclerosis with mild regurgitation. When I read the social work evaluation about her in October 2021 she purchased her home in 2001 and had a bill to ensure that it was disability/wheelchair acc essible when she moved in. At that time she had a roommate. She also had friends and neighbors that came by to take care of her. There is no mention of the . She has purchased long-term care insurance that provides caregivers 6 hours a day, 7 days a week. 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 Tries to wear her brace but it hurts more.) Derm: reports: Rosacea MRSA Hx?: No Other Past Medical History: Spinal stenosis - Past Surgical History General: reports: Cholecystectomy, Appendectomy, Colonoscopy /ADJUNCT PHYSICAL EDUCATION INSTRUCTOR: reports: Hysterectomy, Oophrectomy, Other HEENT: reports: Cataracts Derm: reports: Skin cancer surgery - Family & Social History Family History: Mother: , Father: Family History Comment/Other: Father of heart disease at the age of 50. Mom of old age at 84 but had high blood pressure, diabetes, Parkinson's disease. 1 brother of unknown causes. 1 sister alive but very ill with unknown causes. 2 children described as completely healthy without any medical illnesses. Living arrangement: At home Living Situation: With spouse/s.o. Social History Notes: She has been retired now for almost 16 years. [place]. She does not smoke. Denies alcohol use.She says she was to her first and him. She then remarried second and he has developed Alzheimer's in the 1970s. But she tells me she her second in the . She states that she lives in his house with him, and they have home health, as well as his children coming by to take care of them. - Substance History Use: Uses substance without health or social issues: NONE - POLST Patient has POLST: No Meds/Allgy - Home Medications Home Medications: Ambulatory Orders Medication Instructions Recorded Confirmed Omeprazole 20 mg PO BID 04/27/14 01/12/22 Aspirin [Aspir-Low] 81 mg PO DAILY 09/25/16 01/12/22 Losartan [Cozaar] 100 mg ORAL DAILY #0 09/04/18 06/12/22 Simvastatin [Zocor] 40 mg PO QPM #0 04/06/18 01/12/22 Pregabalin [Lyrica] 50 mg PO TID 05/04/19 01/12/22 methocarbamoL [Methocarbamol] 750 mg PO QID PRN 05/05/19 01/12/22 Amitriptyline [Elavil] 10 - 30 mg PO QPM PRN 10/09/21 01/12/22 Duloxetine HCl [Cymbalta] 60 mg PO DAILY 10/09/21 01/12/22 Furosemide [Lasix] 40 mg PO BID 10/09/21 01/12/22 HYDROcodone/ACET 7.5/325 [[place] 1 tab PO BID PRN 10/09/21 01/12/22 7.5/325] carvediloL [Coreg] 12.5 mg PO BID 10/09/21 01/12/22 - Allergies Allergies/Adverse Reactions: Allergies Allergy/AdvReac Type Severity Reaction Status Date / Time No Known Drug Allergies Allergy Verified 01/12/22 11:16 Review of Systems - Constitutional Constitutional: reports: Fatigue, Malaise, Weakness, Poor appetite. denies: Fever, Chills, Weight gain, Weight loss - Eyes Eyes: reports: Blurred vision. denies: Pain, Irritation, Amaurosis - Ears, Nose & Throat Ears, Nose & Throat: reports: Hearing loss. denies: Nasal obstruction, Nasal congestion, Postnasal drainage, Sore throat, Hoarseness - Cardiovascular Cariovascular: reports: Edema, Exertional dyspnea, Decr. exercise tolerance - Respiratory Respiratory: reports: SOB with exertion. denies: Cough, Sputum production, Whe ezing, Snoring, Orthopnea - Gastrointestinal Gastrointestinal: reports: Diarrhea. denies: Abdominal pain, Abdominal distention, Constipation, Black stools, Bloody stools, [place]y blood emesis, Coffee grounds emesis - Genitourinary Genitourinary: reports: Urgency, Incontinence. denies: Dysuria, Frequency, Flank pain, Nocturia, Urethral discharge - Musculoskeletal Musculoskeletal: reports: Muscle pain, Back pain, Muscle aches, Stiffness, Joint pain, Other - Integumentary Integumentary: denies: Rash, Pruritis, Lesions, Dryness - Neurological Neurological: reports: General weakness, Pre-existing deficit, Other (Pain in back that radiates down legs, can be sharp and stabbing. Feet burn.) - Psychiatric Psychiatric: denies: Depression, Anxiety, Suicidal, Hallucinations, Homicidal - Endocrine Endocrine: denies: Polyuria, Polydypsia, Polyphagia - Hematologic/Lymphatic Hematologic/Lymphatic: denies: Anemia, Bruising, Petechiae Prior Level of Functionality: She stoutly maintains that she was completely independent until December of this year with this episode of diarrhea that "brought her down". Yet review of the medical record shows her to be dependent on caregivers, on oxygen, and usually needing a walker.This has been going on since at least 2018. Exam - Vital Signs Reviewed Vital Signs: Yes Vital Signs: Vital Signs x48h Temp Pulse Pulse Resp BP BP Pulse Ox 01/13/22 21:32 36.6 C 76 21 144/84 H 95 01/13/22 17:22 37.2 C 66 18 146/65 H 98 - Physical Exam General Appearance: positive: No acute distress, Alert, Other (Fatigued appearing, forgetful, inconsistent historian with conflicting data points) Eyes Bilateral: positive: PERRL, EOMI ENT: positive: Dry mucous membranes Neck: positive: No JVD. negative: Stiff neck Respiratory: positive: No respiratory distress, Other (Diminished at the bases). negative: Wheezes, Rales, Rhonchi Cardiovascular: positive: Regular rate & rhythm (But episodes of numerous ectopic beats audible), Extrasystoles, Systolic murmur. negative: Gallop/S4, Friction rub Abdomen: positive: Non-tender, No organomegaly, Nml bowel sounds, No distention Skin: positive: Warm, Dry Extremities: positive: Full ROM, No pedal edema (Legs are shrunken, no pitting whatsoever.) Neurologic/Psychiatric: positive: CN's nml (2-12), Motor nml (except for the generlized weakness.), Disoriented to place, Disoriented to time Conclusion/Plan - Problem List (1) Weakness Conclusion/Plan: The cause of her weakness is not quite clear. At this time it may be dehydration, but there is no signs or symptoms that are objective to indicate infection. She does take Lyrica and Elavil as well as Robaxin. But those are chronic medications for her. I would not think that they would give her acute decompensation with memory loss. It also does not help that I do cannot ascertain this woman's baseline. She is describing a much stouter and more acti ve lifestyle than is described in the medical record. She has not driven in years, yet she states she stopped driving just this December. There is no indication she is yet she says she lives with her demented and that his son lives with them. Since she is followed by [facility], I will see if I can get those records to see what their baseline is with her. She already has long-term care insurance, and is refused placement into a intermediate facility in the past. Plan: Continue hydration PT and OT eval Social work consult (2) Dehydration Conclusion/Plan: Which may be due to diuresis. She is on Lasix 40 mg twice daily for an ejection fraction that is considered normal. She only has grade 1 diastolic dysfunction. Plan: The medical record in the clinic states that she is making arrangements to see cardiology. I highly doubt this woman has the wherewithal to do so. Would have the power of adjunct physical education instructor please make an appointment for her to be seen by cardiology so that we can give her the correct medications. I do not think she needs Lasix at this point in time. While here she will be hydrated gently. (3) Memory loss Conclusion/Plan: Again, it is difficult to assess this patient's cognitive capacity. She gives such conflicting stories of what she perceives her life to be in with the medical record documents. Will discuss with social work. Consider doing more formal neurological evaluation. I would also verify who her DURABLE POWER OF DIRECTOR STRATEGIC ACCOUNT MANAGEMENT is. She states that she is a DO NOT RESUSCITATE and signed a POLST form, but there is no provider signature in the POLST form. She reiterates that she is a DO NOT RESUSCITATE and I will honor those wishes because of her verbal request. However POLST should be modified to include a provider signature. (4) UTI (urinary tract infection) Conclusion/Plan: Await culture results. On day #2 of Rocephin. Qualifiers: Urinary tract infection type: acute cystitis Hematuria presence: without hematuria Qualified Code(s): N30.00 - Acute cystitis without hematuria - Lab Results Lab results reviewed: Yes Fish Bones: 01/13/22 06:19 01/13/22 06:19 - Diagnostic Imaging Results Diagnostic Imaging Results: positive: Final report reviewed Diagnostic Imaging Results Comments: Chest x-ray with cardiomegaly and interstitial prominence. No acute cardiopulmonary changes. Core Measures - Anticipated LOS I expect patient to be DC'd or transferred within 96 hours.: Yes - DVT/VTE - Prophylaxis VTE/DVT Prophylaxis med ordered at admit?: Yes
[2022-01-14] MEDS: HYDROcod/ACETAM 7.5 MG/325 MG TABLET PO PRN (01:28)
[2022-01-14] MEDS: SODIUM CHLORIDE FLUSH 0.9% 10 ML SYRINGE IVP SCH ×2 (01:28→08:50)
[2022-01-14] MEDS: PREGABALIN 25 MG CAPSULE PO SCH ×2 (06:50→13:46)
[2022-01-14] MEDS: DULoxetine 30 MG CAPSULE PO SCH (08:46)
[2022-01-14] MEDS: FUROSEMIDE 20 MG TABLET PO SCH (08:46)
[2022-01-14] MEDS: methocarbamoL 500 MG TABLET PO SCH ×2 (08:46→13:46)
[2022-01-14] MEDS: carvediloL 12.5 MG TABLET PO SCH (08:49)
[2022-01-14] MEDS: PANTOPRAZOLE 40 MG TABLET PO SCH (08:52)
[2022-01-14] MEDS ORDERED: cefTRIAXone 1 GM in SODIUM CHLORIDE 0.9% MINIBAG 100 ML IV SCH (09:00)
[2022-01-14] MEDS ORDERED: ENOXAPARIN 40 MG/0.4 ML SYRINGE SUBQ SCH (09:00)
[2022-01-14 11:54] VITALS: BP 146/50
--- NOTE | 2022-01-14 12:53 | Discharge Plan ---
Discharge Plan Problem Reviewed?: Yes Disposition: Home Health Service Condition: Fair Prescriptions: Saccharomyces Boulardii [Florastor] 250 mg PO BIDWM #10 cap levoFLOXacin [Levaquin] 750 mg PO DAILY 5 Days #15 tablet Diet: Low Sodium Activity Restrictions: Activity as Tolerated Shower Restrictions: No Driving Restrictions: Yes Assistance Devices: Wheelchair Health Concerns: The patient was hospitalized briefly because of weakness which was probably caused by a urinary tract infection and from dehydration from excessive diuretic dose. The patient is being discharged to take several more days of oral antibiotics plus probiotics. New prescriptions were electronically sent to the [facility] pharmacy in [facility]. Her list of medications has been changed slightly. Please follow the current list of medications at the time of discharge. She was evaluated by Physical Therapy and Occupational Therapy, and mild cognitive impairment was documented. The patient has been referred to a Home Health agency for in-home PT and OT and for a skilled Registered Nurse to assess that her meds are being taken correctly and for an in-home bath aide. Plan of Treatment: As above. The patient should have a follow-up appointment with her PCP in about 1 week. Care Goals: Improvement in symptoms and stabilization are the goals. Assessment: This instruction sheet is being provided at the time discharge for her current in-home caregivers and the Home Health agency to review. Additional Instructions or Follow Up instructions: Total fluid intake per day should be less than 2 L (or less than half a gallon a day). Follow-Up Care: Home Health - RN, Home Health - PT, Home Health - OT No Smoking: If you smoke, Please STOP! Call for help. Follow-up with: Miryam Potts PA-C [Provider Admit Priv/Credential] -
--- NOTE | 2022-01-14 13:22 | DISCHARGE SUMMARY ---
Discharge Summary Admit Date: 01/13/22 Discharge Date: 01/14/22 Discharging Provider: Dr Mikala Jolly Primary Care Provider: BIANKA Potts Code Status: Do Not Attempt Resuscitation Condition at Discharge: Fair Discharge Disposition: [facility] Service [facility] History of Present Illness: From the admission H&P of Dr. Bren Morales: This is an 81-year-old female who lives in her own home with her who has dementia and regards her self as still completely independent with driving, housekeeping, activities of daily living and became ill at the beginning of December with diarrhea, generalized fatigue, but denied fever, chills. She has chronic c ongestive heart failure and takes a diuretic. The generalized fatigue became generalized weakness. Gotten to the point that for 2 days she could not even use her walker so she came to the emergency room because she felt like she was dehydrated. She was also described as having more shortness of breath. She came to the emergency room January 12 after EMS was called to the house. The emergency room provider felt that she should be placed in observation for treatment but there are no beds available. Today we recontacted when there was a few beds that became open I will place the patient under observation status. Yesterday in the emergency room she was with a heart rate of 71, respirations of 22, and a blood pressure of 167/80 and 91% on 2 L. Because of COPD, the patient is on chronic oxygen at home. This is a stable level for her. On physical exam she was alert and oriented. Had dry oral mucosa. Diminished breath sounds at the bases of her lungs but did not have respiratory distress. Mild edema around her ankles. Interrogation of her inferior vena cava showed her to be dehydrated as well. She was given a 1000 cc bolus with some improvement in her generalized feeling of wellbeing but she continued to be weak and required a 4 person assist to get in and out of bed. It took quite a bit of effort but they were able to do a urinalysis that showed her to have a UTI. She was given Rocephin.Urinalysis had positive nitrates, trace leukocyte Estrace, and a few squamous cells with many bacteria. Culture has been done. Although this is felt to be a contaminated specimen, it is being treated as UTI. Yet when the medical record is reviewed, this patient requires caregivers, uses a walker, and is probably not been really able to take care of her self for several Years. She was admitted October 09 through October 12 for exacerbation of chronic systolic heart failure. She was try to get out of a bathtub and fell and fell against the edge of the tile with her low back. She had multiple transverse process fractures as a result of her mechanical fall. Chest x-ray showed cardiomegaly and pulmonary edema. She was treated with high-dose Lasix of 80 mg twice a day. Urine culture grew out E. coli and she was treated with Rocephin for 3 days. At discharge she was found to be hypoxic on room air at 86% and required 2 L. It was recommended she go to a detention facility but she refused. As such she was sent home with home health PT/OT, bath aide, and detention.In the past she has been so immobile that she has developed bilateral buttocks decubiti that needed wound care management in 2019. She also has a history of a fall in her own home in April 2018. She lay on the ground for up to 10 hours. She was found by a neighbor and came to the emergency room and had rhabdomyolysis. She has had several echocardiograms: July 2018 ejection fraction was 65%. Mild pulmonary hypertension with a PASP of 38. Mild aortic regurgitation. No stenosis May 2019 echo had a mild to moderately globally impaired ejection fraction of 40 to 45%. Moderate to severe aortic regurgitation. Moderate mitral regurgitation and a pleural effusion. July 2020 echocardiogram had an improved ejection fraction of 55 to 60%. Grade 1 diastolic dysfunction. Are normal right ventricle. Left atrium is moderately increased in size with right atrium severely increased in size. T race aortic regurgitation. October 2021 echocardiogram had normal LV size and systolic function at 60 to 65%. Normal RV size and systolic function. Mild aortic valve sclerosis with mild regurgitation. When I read the social work evaluation about her in October 2021 she purchased her home in 2001 and had a bill to ensure that it was disability/wheelchair accessible when she moved in. At that time she had a roommate. She also had friends and neighbors that came by to take care of her. There is no mention of the . She has purchased long-term care insurance that provides caregivers 6 hours a day, 7 days a week. - HOSPITAL COURSE Hospital Course: (1) Weakness The cause of her weakness was from dehydration and a possible UTI. She got iv fluids. Since she is followed by [facility], this should resume. (2) Dehydration Which may be due to diuretic use. She was on Lasix 40 mg twice daily, but her LV ejection fraction is considered normal. She only has grade 1 diastolic dysfunction. Her Lasix was not given. She got 1 day of IV fluids. At discharge she was told to take the Lasix just once a day. She was also advised to keep total fluids down to 2 L/day max. (3) E coli UTI (urinary tract infection) She received 2 days of iv Rocephin empirically. Her urine culture grew E. coli which was pansensitive. At the time of discharge, she was prescribed Levaquin 750 mg daily to take for 5 more days, plus a probiotic. (4) Cognitive Impairment She gave conflicting histories of what she perceives her life to be, not what is in her medical record documents. On the second day, she could not remember that she gave and an accurate story. She continues to need assistance and caregivers at home. (5) History of CHF Her last echo showed diastolic heart failure and yet she takes Lasix twice a day and carvedilol and losartan. Her BNP was normal at 97 here. Her Lasix was put on hold and she got 1 day of gentle rehydration. At the time of discharge, the Lasix dose was decreased from twice daily to once daily. (6) Wheelchair bound status The patient has caregivers for part of the day that help her move around, otherwise she is entirely wheelchair-bound. - ALLERGIES Allergies/Adverse Reactions: Allergies Allergy/AdvReac Type Severity Reaction Status Date / Time No Known Drug Allergies Allergy Verified 01/12/22 11:16 - MEDICATIONS Home Medications: Ambulatory Orders Medication Instructions Recorded Confirmed Omeprazole 20 mg PO BID 04/27/14 01/12/22 Aspirin [Aspir-Low] 81 mg PO DAILY 09/25/16 01/12/22 Losartan [Cozaar] 100 mg ORAL DAILY #0 04/06/18 01/12/22 Simvastatin [Zocor] 40 mg PO QPM #0 04/06/18 01/12/22 Pregabalin [Lyrica] 50 mg PO TID 05/04/19 01/12/22 methocarbamoL [Methocarbamol] 750 mg PO QID PRN 05/05/19 01/12/22 Amitriptyline [Elavil] 10 - 30 mg PO QPM PRN 10/09/21 01/12/22 Duloxetine HCl [Cymbalta] 60 mg PO DAILY 10/09/21 01/12/22 HYDROcodone/ACET 7.5/325 [[place] 1 tab PO BID PRN 10/09/21 01/12/22 7.5/325] carvediloL [Coreg] 12.5 mg PO BID 10/09/21 01/12/22 Furosemide [Lasix] 40 mg PO DAILY #0 01/14/22 01/12/22 Saccharomyces Boulardii [Florastor] 250 mg PO BIDWM #10 cap 01/14/22 levoFLOXacin [Levaquin] 750 mg PO DAILY 5 Days #15 tablet 01/14/22 - PHYSICAL EXAM AT DISCHARGE General Appearance: positive: No acute distress, Alert Eyes Bilateral: positive: Normal inspection, EOMI ENT: positive: No signs of dehydration Neck: positive: Other (Obese and cannot evaluate JVP.) Respiratory: positive: No respiratory distress Cardiovascular: positive: Regular rate & rhythm Abdomen: positive: Non-tender, Other (Obese with a pannus) Skin: positive: Warm, Dry Extremities: positive: Other (Trace edema) Neurologic/Psychiatric: positive: Oriented x3 (Motor strength of legs was not evaluated) - LABS Result Diagrams: 01/13/22 06:19 01/13/22 06:19 - DIAGNOSTIC IMAGING Diagnostic Imaging Results: Final report reviewed - TIME SPENT Time Spent in Discharge (Minutes): 25
== END 2022-01-14 14:27 | disposition home health service (06) ==
LOC: EDUNIT# → ED 11:07 → MS3 01-13 16:40
PROVIDERS: ADMIT Specialist; ATTEND Internal Medicine
DX: E86.0 Dehydration (principal); R53.1 Weakness; N30.00 Acute cystitis without hematuria; B96.20 Unspecified Escherichia coli [E. coli] as the cause of diseases classified elsewhere; I11.0 Hypertensive heart disease with heart failure; I50.22 Chronic systolic (congestive) heart failure; J44.9 Chronic obstructive pulmonary disease, unspecified; Z99.81 Dependence on supplemental oxygen; I27.20 Pulmonary hypertension, unspecified; I25.10 Atherosclerotic heart disease of native coronary artery without angina pectoris; E78.00 Pure hypercholesterolemia, unspecified; G47.30 Sleep apnea, unspecified; G62.0 Drug-induced polyneuropathy; Z85.3 Personal history of malignant neoplasm of breast; R35.0 Frequency of micturition; Z20.822 Contact with and (suspected) exposure to COVID-19; M19.90 Unspecified osteoarthritis, unspecified site; M79.7 Fibromyalgia; M54.9 Dorsalgia, unspecified; G89.29 Other chronic pain; Z79.891 Long term (current) use of opiate analgesic; R41.3 Other amnesia; Z91.81 History of falling; R41.89 Other symptoms and signs involving cognitive functions and awareness; Z99.3 Dependence on wheelchair; E66.9 Obesity, unspecified; Z68.42 Body mass index [BMI] 45.0-49.9, adult
CPT/HCPCS: 36415; 51701; 71045; 80048; 80053; 81001; 83690; 83880; 85025; 87086; 87181; 87635; 96361; 96365; 96366; 96372; 97162; 97167; 99283; 99285; A9270; G0378; J1650; 81003

== ENCOUNTER 2022-02-26 12:11 | Outpatient (CLI) | payer MEDICARE, BC | END 2022-02-26 12:12 | disposition home or self-care (01) | LOC: DI 12:11 | PROVIDERS: ATTEND Physician Assistant Medical | DX: I50.9 Heart failure, unspecified (principal); I51.7 Cardiomegaly | CPT/HCPCS: 93306 ==

== ENCOUNTER 2022-04-03 13:56 | Observation (INO) | payer MEDICARE, BC ==
[2022-04-03] MEDS ORDERED: ALBUTEROL NEB 2.5 MG/3 ML INH STA (14:34)
[2022-04-03] MEDS ORDERED: IPRATROPIUM 0.2 MG/ML NEB INH STA (14:34)
[2022-04-03] MEDS ORDERED: FUROSEMIDE 40 MG/4 ML VIAL IVP STA (14:38)
--- NOTE | 2022-04-03 14:45 | ED Physician Documentation ---
History of Present Illness - Stated complaint Stated Complaint: COUGH - Chief complaint Chief Complaint: Resp - Additonal information Additional information: 81-year-old female presents emergency department for evaluation of acute episode of dyspnea and cough. Symptoms began last night. Patient does have a history of congestive heart failure for which she is on baseline home O2 at 2 L/min. She reports that she has been coughing but is having a difficult time producing any sputum. When she takes a deep breath and she has a snoring sound. She does not carry a history of COPD. She is on daily Lasix. States that she is more edematous than she normally is but does not find that her weight has changed. She is denying chest pain. No fevers. Fully vaccinated for COVID-19. 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: Breast cancer (Lumpectomy/XRT followed by adjuvant AC/T 2005) : Frequency HEENT: Chronic vision loss Psych: None Musculoskeletal: Osteoarthritis, Fibromyalgia, Chronic back pain, Other Derm: Rosacea - Past Surgical History Past Surgical History: Yes General: Cholecystectomy, Appendectomy, Colonoscopy /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: Hysterectomy, Oophrectomy, Other HEENT: Cataracts Derm: Skin cancer surgery - Present Medications Home Medications: Ambulatory Orders Medication Instructions Recorded Confirmed Omeprazole 20 mg PO BID 04/27/14 04/03/22 Aspirin [Aspir-Low] 81 mg PO DAILY 09/25/16 04/03/22 Losartan [Cozaar] 100 mg ORAL DAILY #0 04/06/18 04/03/22 Pregabalin [Lyrica] 100 mg PO TID 05/04/19 04/03/22 methocarbamoL [Methocarbamol] 750 mg PO QID PRN 05/05/19 04/03/22 Duloxetine HCl [Cymbalta] 60 mg PO DAILY 10/09/21 01/12/22 HYDROcodone/ACET 7.5/325 [[place] 1 tab PO BID PRN 10/09/21 04/03/22 7.5/325] carvediloL [Coreg] 12.5 mg PO BID 10/09/21 04/03/22 Amitriptyline HCl 50 mg PO QPM 04/03/22 04/03/22 Atorvastatin [Lipitor] 20 mg PO QPM 04/03/22 04/03/22 Furosemide [Lasix] 40 mg PO 1200 04/03/22 04/03/22 Furosemide [Lasix] 60 mg PO DAILY 04/03/22 04/03/22 - Allergies Allergies/Adverse Reactions: Allergies Allergy/AdvReac Type Severity Reaction Status Date / Time No Known Drug Allergies Allergy Verified 04/03/22 14:14 - Social History Does the pt smoke?: No Smoking Status: Never smoker Does the pt drink ETOH?: No Does the pt have substance abuse?: Yes - Immunizations Immunizations are current?: Yes - POLST Patient has POLST: No PD ED PE EXPANDED - General General: Alert, Other (Morbidly obese dyspneic appearing) - Neck Neck: Supple w/out meningeal sx. No: Adenopathy - Cardiac Cardiac: Regular Rate, Murmur Present, Radial strong equal, Pedal strong equal, Cap refill < 2 sec - Respiratory Respiratory: Other (Diminished breath sounds globally. Faint scattered crackles and expiratory wheeze. Deep rhonchorous nor with breath. Saturating 88% 5 L nasal cannula) - Abdomen Abdomen: No: Tender to palpation - Extremities Extremities: Pedal edema bilateral (2+ pitting edema bilateral lower extremities. 2+ pedal pulse bilaterally.), Pedal Pulses Present. No: Decreased/absent pulse - Neuro Neuro: Alert and Oriented X 3, CNII-XII intact - GCS Eye Opening: Spontaneous Motor: Obeys Commands Verbal: Oriented Total: 15 Results - Vitals Vitals: Vital Signs - 24 hr 04/03/22 04/03/22 04/03/22 14:14 14:54 15:06 Temperature 36.5 C Heart Rate 88 78 74 Respiratory 16 20 19 Rate Blood Pressure 150/90 H 177/122 H O2 Saturation 88 L 98 Oxygen O2 Source [Without Activity] nasal canule 2LO2 O2 Source [With Activity] Nasal canule 2L O2 O2 Source Nasal cannula Oxygen Flow Rate 2 - EKG (time done) 1444 Rate: Rate (enter#) (73) Rhythm: NSR Intervals: Prolonged NE. No: Prolonged QT QRS: Normal Ischemia: Normal ST segments Compare to prior EKG: Unchanged from prior EKG Computer interpretation: Agree with computer - Labs Labs: Laboratory Tests 04/03/22 04/03/22 04/03/22 14:41 14:41 14:41 WBC 15.7 H RBC 4.35 Hgb 13.1 Hct 42.0 MCV 96.6 MCH 30.1 MCHC 31.2 L RDW 13.2 Plt Count 224 MPV 11.1 H Neut # (Auto) 13.3 H Lymph # (Auto) 1.0 L [place] # (Auto) 1.1 H Eos # (Auto) 0.2 Baso # (Auto) 0.1 Absolute Nucleated RBC 0.00 Nucleated RBC % 0.0 Sodium 132 L Potassium 4.3 Chloride 86 L Carbon Dioxide 34 H Anion Gap 12.0 BUN 17 Creatinine 0.8 Estimated GFR (MDRD) 69 L Glucose 128 H Calcium 9.8 Total Bilirubin 0.6 AST 13 ALT 16 Alkaline Phosphatase 96 Troponin I High Sens 15.2 H* B-Natriuretic Peptide Total Protein 7.4 Albumin 3.9 Globulin 3.5 Albumin/Globulin Ratio 1.1 Lipase 27 SARS-CoV-2 (PCR) 04/03/22 04/03/22 14:41 15:00 WBC RBC Hgb Hct MCV MCH MCHC RDW Plt Count MPV Neut # (Auto) Lymph # (Auto) [place] # (Auto) Eos # (Auto) Baso # (Auto) Absolute Nucleated RBC Nucleated RBC % Sodium Potassium Chloride Carbon Dioxide Anion Gap BUN Creatinine Estimated GFR (MDRD) Glucose Calcium Total Bilirubin AST ALT Alkaline Phosphatase Troponin I High Sens B-Natriuretic Peptide 200 H Total Protein Albumin Globulin Albumin/Globulin Ratio Lipase SARS-CoV-2 (PCR) NOT DETECTED - Rads (name of study) cxr Radiology: Final report received (Cardiomegaly with pulmonary vascular congestion however the appearance of pulmonary vascular congestion could be due to superimposed overlying soft tissues) PD MEDICAL DECISION MAKING - ED course Complexity details: reviewed results, re-evaluated patient, considered differential, d/w patient, d/w family ED course: 81-year-old female presents emergency department for evaluation of sudden onset dyspnea and cough beginning last night She carries a history of hypertension and congestive heart failure for which she is on baseline 2 L nasal cannula. Gonzalez a history of COPD or pulmonary disorders. On presentation she required increase in baseline oxygen supplementation to 4 L. Initially she was very dyspneic and labored and moving air very poorly with faint wheeze and crackles. She was administered albuterol and Atrovent which did seem to improve her dyspnea though it did not fully resolve. Chest x-ray is consistent with a volume overload pattern, though this can be over-inerpreted given morbid obesity. Her BNP is only mildly elevated at 200. Despite this, given a history of heart failure she was administered 40 mg of Lasix. On reevaluation she remains dyspneic, though less so. We did attempt to ambulate the patient in the room which was very poorly tolerated. Patient feels that she would benefit from further evaluation and treatment of the heart failure here in the hospital thus she was presented for evaluation and observation to Dr. Bren Morales who graciously agrees to admit the patient Departure - Departure Disposition: ED Place in Observation Clinical Impression: Hypoxemia Congestive heart failure Qualifiers: Heart failure type: unspecified Heart failure chronicity: acute on chronic Qualified Code(s): I50.9 - Heart failure, unspecified Discharge Date/Time: 04/03/22 17:04
[2022-04-03 14:52] LABS: HGB - HEMOGLOBIN 13.1 g/dL (12.0-16.0); MEAN CORPUSCULAR HEMOGLOBIN 30.1 pg (27.0-31.0); MEAN CORPUSCULAR HGB CONC 31.2 g/dL (32.0-36.0); MEAN CORPUSCULAR VOLUME 96.6 fL (81.0-99.0); RED BLOOD COUNT 4.35 10^6/uL (4.20-5.40); RED CELL DISTRIBUTION WIDTH 13.2 % (12.0-15.0); WHITE BLOOD COUNT 15.7 x10^3/uL (4.8-10.8)
[2022-04-03 14:53] LABS: BASOPHILS # (AUTO) 0.1 10^3/uL (0.0-0.1); BASOPHILS % (AUTO) 0.3 %; EOSINOPHILS # (AUTO) 0.2 10^3/uL (0.0-0.7); LYMPHOCYTES % (AUTO) 6.6 %; MEAN PLATELET VOLUME 11.1 fL (7.9-10.8); MONOCYTES # (AUTO) 1.1 10^3/uL (0.0-1.0); MONOCYTES % (AUTO) 6.8 %; NEUTROPHILS # (AUTO) 13.3 10^3/uL (1.5-6.6); NEUTROPHILS % (AUTO) 84.9 %; PLT - PLATELET COUNT 224 10^3/uL (130-450)
[2022-04-03 15:02] LABS: ALBUMIN 3.9 g/dL (3.2-5.5); ALBUMIN/GLOBULIN RATIO 1.1 (1.0-2.2); BILIRUBIN,TOTAL 0.6 mg/dL (0.2-1.0); CALCIUM 9.8 mg/dL (8.5-10.3); CREATININE 0.8 mg/dL (0.4-1.0); POTASSIUM 4.3 mmol/L (3.5-5.0); TOTAL PROTEIN 7.4 g/dL (6.7-8.2)
--- NOTE | 2022-04-03 15:22 | XRAY Report ---
PROCEDURE: Chest 1 View X-Ray INDICATIONS: chest pain COMMENTS: Chest pain/ Pt states cough PRIORS: 01/12/22, 10/09/21 TECHNIQUE: One view of the chest was acquired. COMPARISON: None FINDINGS: Surgical changes and devices: None. Lungs and pleura: Increased pericolic opacities are seen throughout both lung boo, likely related to overlying soft tissue. Left basilar vascular prominence is noted. There is apparent pulmonary v ascular congestion, however this could be due to increased soft tissue from body habitus. Underlying interstitial prominence is noted and unchanged. Mediastinum: Mediastinal contours appear normal. Heart size is enlarged. Bones and chest wall: No suspicious bony lesions. Overlying soft tissues appear unremarkable. IMPRESSION: 1. Cardiomegaly with pulmonary vascular congestion, however the appearance of pulmonary vascular diego estion could be due to superimposed overlying soft tissues. Reviewed by: Jeremie Robledo on 04/03/2022 3:21 PM PDT Approved by: Jeremie Robledo on 04/03/2022 3:21 PM PDT Station ID: [id number]
[2022-04-03] MEDS ORDERED: ONDANSETRON 4 MG/2 ML VIAL IVP PRN (16:07)
[2022-04-03] MEDS ORDERED: ONDANSETRON ODT 4 MG TABLET TL PRN (16:07)
[2022-04-03] MEDS ORDERED: ACETAMINOPHEN 325 MG TABLET PO PRN (16:07)
[2022-04-03] MEDS ORDERED: SODIUM CHLORIDE FLUSH 0.9% 10 ML SYRINGE IVP PRN (16:07)
[2022-04-03] MEDS ORDERED: ALBUTEROL NEB 2.5 MG/3 ML INH PRN (16:11)
[2022-04-03] MEDS: LOSARTAN 50 MG TABLET PO SCH (16:43)
--- NOTE | 2022-04-03 17:13 | HISTORY & PHYSICAL EXAMINATION ---
Chief Complaint - Chief Complaint Chief Complaint: Cough and shortness of breath History of Present Illness - Admitted From Admitted From:: Home - History Obtained From Records Reviewed: [facility] History obtained from: Patient and TERESE Katz Exam Limitations: None - History of Present Illness HPI Comment/Other: This is an 81-year-old female who was brought in by private vehicle. She has oxygen for chronic congestive heart failure and states that last night she started coughing more and more. The cough was bothering her enough taht she wanted to go the hospital. So she called her friend Adriana to bring her in. Adriana describes her as "normal except for the cough." No new baldwin. In reviewing her most recent cardiology consultation from March 28 of this year, her shipmaster states that she does not have congestive heart failure. She denied fever, chills, chest congestion, URI symptomatology. She states that she is compliant with her medication. In the emergency room temperature was 36.5, heart rate 88. Blood pressure 150/90. Respirations 16 and she was 88% saturated on room air. She is usually on 2 L at home and did not bring her oxygen with her. The oxygen was prescribed when she was with home health after discharge in January. Her neck was supple. No JVD. She was morbidly obese, appeared dyspneic with speaking to the provider in the ER. She has severely diminished breath sounds globally. Was very hard to hear any breath sounds. Faint scattered crackles and expiratory wheeze. Deeply rhonchorous. With 5 L nasal cannula and speaking to the provider she was at 88%. 2+ pedal edema of the bilateral lower extremities. Chest x-ray showed cardiomegaly with pulmonary vascular congestion. However radiology cautioned about over interpretation and said this could just be body habitus and soft tissue changes with an unexpanded breath causing this interpretation. BNP was only mildly elevated at 200. She was given 40 mg of Lasix and an albuterol treatment. She improved and felt less short of breath but was still dyspneic. The ER provider attempted to ambulate her in the room and it was poorly tolerated. As such the patient is to be placed in observation for presumed acute on chronic systolic heart failure. The patient was admitted this year in October, as well as January. She stated that she lived with her who has dementia and described her self as independent with driving, housekeeping, activities of daily living. When she was admitted in January it was for diarrhea and dehydration. In investigating her social history, she is not . Lives alone. And has friends and neighbors that take care of her. And she is essentially wheelchair-bound. When she was discharged in January she was not discharged on oxygen. Patient now has 3-4 caregivers that provide daily care in the mornings and evenings. The first pet care assistant stays for about 5 hours to assist patient with getting ready for the day and that she is set up. The patient is never home alone for more than 5-6 hours a day. Patient has an evening pet care assistant that stays over night Thursday, Thursday, , and Thursday. Her friend Adriana Snyder [phone] provides additional support where needed. She is known to be forgetful, to hallucinate occasionally. The day she was discharged in January, she was hallucinating that day. Her friend and neighbor is Adriana. Adriana is willing to provide transportation for patient home. She feels confident providing assistance with transfers. In the past, wafer polishing lead worker provided information for lift assist and encouraged Adriana to utilize it as resource. When she was discharged in January she was discharged to home health. Home health saw her from January 16 through January 28. Physical therapy and reached maximum potential due to limitations which included pain, lack of motivation, lack of compliance to therapy. She does not do the exercises that were described to her for her to do in between sessions. She requires a standby assist for chair to recliner transfer with a four-wheel walker. She sleeps in a recliner chair. She is a standby assist for toilet transfers, two-person assist for bathing. Because of her long history of dyspnea on exertion a chest CT was done July 2018. She has scattered 2 to 3 mm pulmonary nodules and reticular nodular opacities in the lower lungs. No bronchial thickening or consolidation or edema. No fibrosis. No pericardial or pleural effusion. There were no specific pulmonary findings to explain her shortness of breath. The tiny pulmonary nodules were nonspecific but of doubtful significance. They did recommend follow-up. While she has had many chest x-rays between 2017 and now, there is no CT. She is also been seen by cardiology. She was seen by Chon Thakur on March 28, 2022. He evaluated her for ongoing edema with a background of hypertension, morbid obesity and untreated obstructive sleep apnea. She is described as wheelchair-bound due to her weight. He did not feel that her edema was cardiac related. He felt that her edema was mostly due to morbid obesity, untreated o bstructive sleep apnea, and potentially medication side effect such as Lyrica which caused edema. He did not feel that she had edema from water retention but lymphedema from her obesity. He explained to her that there is no specific "fix". He strongly advised weight loss. Although he advised diuretics such as Lasix he wanted her to limit the dose of Lasix to as low as possible to avoid adverse renal effects. He also strongly recommend that she follow-up with sleep medicine for potential tolerable therapies for sleep apnea. She does not tolerate standard CPAP. He did recommend continuing carvedilol and losartan for her hypertension not for congestive heart failure. She has had several echocardiograms: July 2018 ejection fraction was 65%. Mild pulmonary hypertension with a PASP of 38. Mild aortic regurgitation. No stenosis May 2019 echo had a mild to moderately globally impaired ejection fraction of 40 to 45%. Moderate to severe aortic regurgitation. Moderate mitral regurgitation and a pleural effusion. July 2020 echocardiogram had an improved ejection fraction of 55 to 60%. Grade 1 diastolic dysfunction. Are normal right ventricle. Left atrium is moderately increased in size with right atrium severely increased in size. Trace aortic regurgitation. October 2021 echocardiogram had normal LV size and systolic function at 60 to 65%. Normal RV size and systolic function. Mild aortic valve sclerosis with mild regurgitation. January 27, 2022 had mild concentric left ventricular hypertrophy. Systolic function is normal with ejection fraction of 60 to 65%. Impaired relaxation consistent with grade 1 diastolic dysfunction. The right ventricle is normal. Atrial sizes are normal. There is no significant valvular heart disease. History - Past Medical History Cardiovascular: reports: Hypertension, High cholesterol, Coronary artery disease, Valve disorder (mild AR), Other (she DOES NOT have congestive heart failure. ) Respiratory: reports: Sleep apnea (untreated for years) Neuro: reports: Peripheral neuropathy (drug induced) Endocrine/Autoimmune: reports: Other (thyroid nodule, fasting hyperglycemia) GI: reports: GERD, Other (Hepatomegaly and fatty liver.) PRODUCTION CONTROL EXPEDITER: reports: Breast cancer (Lumpectomy/XRT followed by adjuvant AC/T 2005) : reports: Frequency HEENT: reports: Chronic vision loss Psych: reports: None Musculoskeletal: reports: Osteoarthritis, Fibromyalgia, Chronic back pain (intermediate use opiates, LESI 05/2020), Other (R foot pain ) Derm: reports: Rosacea MRSA Hx?: No - Past Surgical History General: reports: Cholecystectomy, Appendectomy, Colonoscopy /PRODUCTION CONTROL EXPEDITER: reports: Hysterectomy, Oophrectomy, Other HEENT: reports: Cataracts Derm: reports: Skin cancer surgery - Family & Social History Family History: Mother: , Father: Family History Comment/Other: Father of heart disease at the age of 50. Mom of old age at 84 but had high blood pressure, diabetes, Parkinson's disease. 1 brother of unknown causes. 1 sister alive but very ill with unknown causes. 2 children described as completely healthy without any medical illnesses. Living arrangement: At home Living Situation: With caregiver(s) Social History Notes: [place] has been retired [place] for almost 16 years[place]. Denies alcohol use.She says she was to her first and him. She then remarried second and he has developed Alzheimer's in the . But she tells me she her second in the . She states that she lives in his house with him, and they have home health, as well as his children coming by to take care of them. But this history if doubtful. When I spoke to Adriana Snyder none of this is true. Never . No tobacco or alcohol abuse - Substance History Use: Uses substance without health or social issues: NONE - POLST Patient has POLST: No Meds/Allgy - Home Medications Home Medications: Ambulatory Orders Medication Instructions Recorded Confirmed Omeprazole 20 mg PO BID 04/27/14 04/03/22 Aspirin [Aspir-Low] 81 mg PO DAILY 09/25/16 04/03/22 Losartan [Cozaar] 100 mg ORAL DAILY #0 04/06/18 04/03/22 Pregabalin [Lyrica] 100 mg PO TID 05/04/19 04/03/22 methocarbamoL [Methocarbamol] 750 mg PO QID PRN 05/05/19 04/03/22 Duloxetine HCl [Cymbalta] 60 mg PO DAILY 10/09/21 01/12/22 HYDROcodone/ACET 7.5/325 [[place] 1 tab PO BID PRN 10/09/21 04/03/22 7.5/325] carvediloL [Coreg] 12.5 mg PO BID 10/09/21 04/03/22 Amitriptyline HCl 50 mg PO QPM 04/03/22 04/03/22 Atorvastatin [Lipitor] 20 mg PO QPM 04/03/22 04/03/22 Furosemide [Lasix] 40 mg PO 1200 04/03/22 04/03/22 Furosemide [Lasix] 60 mg PO DAILY 04/03/22 04/03/22 - Allergies Allergies/Adverse Reactions: Allergies Allergy/AdvReac Type Severity Reaction Status Date / Time No Known Drug Allergies Allergy Verified 04/03/22 14:14 Review of Systems - Constitutional Constitutional: reports: Fatigue, Weakness. denies: Fever, Chills, Malaise - Eyes Eyes: reports: Corrective lenses. denies: Pain - Ears, Nose & Throat Ears, Nose & Throat: denies: Hearing loss, Hearing aids, Nasal obstruction, Nasal congestion, Postnasal drainage, Sore throat, Hoarseness - Cardiovascular Cariovascular: reports: Exertional dyspnea, Decr. exercise tolerance. denies: Irregular heart rate - Respiratory Respiratory: reports: Cough, Snoring, Apnea (Cannot do CPAP because she is claustrophobic and cannot tolerate it). denies: Sputum production, Wheezing, SOB at rest, SOB with exertion - Gastrointestinal Gastrointestinal: reports: Reflux/heartburn, Other (Starting to have problems with swallowing. Feels like food is getting stuck in her throat). denies: Abdominal pain, Abdominal distention, Constipation, Diarrhea, Vomiting, Coffee grounds emesis - Genitourinary Genitourinary: reports: Frequency, Incontinence. denies: Dysuria, Urgency, Hematuria - Musculoskeletal Musculoskeletal: reports: Back pain, Muscle aches, Limited range of motion, Joint pain - Integumentary Integumentary: denies: Rash, Pruritis, Lesions, Dryness - Neurological Neurological: reports: General weakness, Numbness, Memory problems. denies: Focal weakness, Headache, Dizziness, Seizures - Psychiatric Psychiatric: reports: Hallucinations (Off and on. She is aware that sometimes it happens but she cannot say why it happens.). denies: Depression, Anxiety, Suicidal - Endocrine Endocrine: denies: Polyuria, Polydypsia, Polyphagia - Hematologic/Lymphatic Hematologic/Lymphatic: denies: Anemia, Bruising, Petechiae Prior Level of Functionality: She is bedbound or wheelchair-bound. She requires 24/7 care and has caregivers that are private duty and go to her home on a daily basis. She is reluctant to take a bath. The caregivers do not want to push it. However her friend Adriana will go in there and lays a lot down and the patient is forced to take a shower. Exam - Vital Signs Reviewed Vital Signs: Yes Vital Signs: Vital Signs x48h Temp Pulse Resp BP Pulse Ox 04/03/22 16:07 68 18 189/75 H 95 04/03/22 15:06 74 19 177/122 H 98 04/03/22 14:54 78 20 04/03/22 14:14 36.5 C 88 16 150/90 H 88 L - Physical Exam General Appearance: positive: No acute distress, Alert, Other (Sitting in hospital bed, eating salmon dinner. No cough. She said the cough disappeared after her nebulizer treatment. Severely morbidly obese white female) Eyes Bilateral: positive: PERRL, EOMI ENT: positive: No signs of dehydration Neck: positive: No JVD. negative: Thyromegaly Respiratory: positive: Other (She does have increased respiration rate when she speaks and gets excited but there is no tachypnea, no distress. She has an occasional rhonchi that clears with a cough. Diminished breath sounds diffusely and a very, very large AP diameter). negative: Wheezes, Rales Cardiovascular: positive: Regular rate & rhythm. negative: Systolic murmur, Gallop/S4, Friction rub Abdomen: positive: Non-tender, Nml bowel sounds, No distention, Other (Huge, protuberant abdominal pannus unable to assess for organomegaly) Skin: positive: Warm, Dry, Pallor Extremities: positive: Non-tender, Full ROM, Pedal edema, Other (Deformed right foot that is laterally deviated. Large puffy feet right worse than left and th ey look like marshmallows.) Neurologic/Psychiatric: positive: Oriented x3, CN's nml (2-12). negative: Motor nml (Diffuse generalized weakness where she needs 2 person assist because of her weight and nonbearing status of right foot) Conclusion/Plan - Problem List (1) Hypoxemia Conclusion/Plan: The emergency room provider felt that this patient had acute on chronic congestive heart failure. She did not have access to the patient's medical records from the primary care provider much less access to the cardiology note from March 28. The patient's complaint was that of cough that was unremitting since midnight last night. No other review of systems positive around this. This patient does not have congestive heart failure. I agree with the shipmaster that this patient has a confluence of things that cause her to be hypoxemic and short of breath. That includes probable obesity hypoventilation syndrome that is undiagnosed. Obstructive sleep apnea that is not treated. A restrictive lung disease because of her huge weight. And some type of intrinsic lung disease causing reticulonodular pattern on CT. She was started on oxygen by home health she feels. Assessment/plan Observation status To get another nebulizer I had started Lasix and that will be discontinued Better control of her blood pressure I have educated the patient, and I have educated her friend Adriana Plan is discharge tomorrow morning with oxygen supplementation (2) Hallucinations Conclusion/Plan: I think this patient may be having some hypercapnia as well. I am not seeing a blood gas in her medical records. She does have untreated sleep apnea and most likely has obesity hypoventilation syndrome. In looking at her home health notes, and social work notes, I do not know much headway began to have with this patient's overall status. (3) Hypertension Conclusion/Plan: In the emergency room she is 170 systolic 289 systolic. She states that she is compliant with her carvedilol and Cozaar. I hesitate to give her something like amlodipine because that will only cause worse pedal edema vasodilation. She is already received Lasix here. I will discontinue the Lasix, resume her usual home meds and add hydrochlorothiazide. She will need follow-up with her primary care provider, Ana Potts for blood pressure follow-up Qualifiers: Hypertension type: primary hypertension Qualified Code(s): I10 - Essential (primary) hypertension (4) Do not resuscitate status Conclusion/Plan: She has a physician order for life-sustaining treatment form filled out in the EMR. Unfortunately it is not signed by a provider. I will do that while she is here. Her niece is her power of banking attorney/DURABLE POWER OF PATIENT PORTAL CONCIERGE. I will make contact with her and get her phone number to put that in the chart (5) Dysphagia Conclusion/Plan: I will ask for speech therapy evaluation tomorrow. Qualifiers: Dysphagia type: pharyngeal phase Qualified Code(s): R13.13 - Dysphagia, pharyngeal phase - Lab Results Lab results reviewed: Yes Fish Bones: 04/03/22 14:41 04/03/22 14:41 - Diagnostic Imaging Results Diagnostic Imaging Results: positive: Final report reviewed
[2022-04-03] MEDS: SODIUM CHLORIDE FLUSH 0.9% 10 ML SYRINGE IVP SCH (18:18)
[2022-04-03] MEDS ORDERED: FUROSEMIDE 40 MG/4 ML VIAL IVP SCH (21:00)
[2022-04-03] MEDS: oxyCODONE 5 MG TABLET PO PRN (22:44)
[2022-04-04] MEDS: SODIUM CHLORIDE FLUSH 0.9% 10 ML SYRINGE IVP SCH ×2 (00:25→09:21)
--- NOTE | 2022-04-04 08:54 | PHARMACY PROGRESS NOTE ---
- Best Possible Medication History Admit Date and Time: 04/03/22 1605 Processed by: Pharmacy Medication History completed: Yes Patient Interview: Completed Secondary Source(s): Physician records, Pharmacy records, Insurance records As the person ultimately responsible for medication therapy, providers are able to order a medication from an existing home medication list in [facility] via the "Reconcile Routine" prior to Confirmation of that medication by litigation support analyst. Such practice is discouraged except when the physician, in their clinical judgment, deems that a medical need exists for a medication without regard to previous use.
[2022-04-04] MEDS: LOSARTAN 50 MG TABLET PO SCH (09:21)
[2022-04-04] MEDS: oxyCODONE 5 MG TABLET PO PRN (09:21)
--- NOTE | 2022-04-04 10:31 | Discharge Plan ---
Discharge Plan Problem Reviewed?: Yes Disposition: Home, Self Care Prescriptions: guaiFENesin [Guaifenesin ER] 600 mg PO BID #60 tab Diet: Regular Activity Restrictions: Activity as Tolerated Shower Restrictions: No Driving Restrictions: Yes (no driving) Assistance Devices: Wheelchair Health Concerns: You presented to the emergency room with a cough that was nonstop starting the night before. You have a history of congestive heart failure and with that history the emergency room doctor treated you as congestive heart failure. Your cough resolved with Lasix and albuterol treatment. You do not have a history of asthma or lung disease with asthma. Overnight, we observed you. We think your problem has to do with a combination of factors. Your weight causes a restriction of your ability to breathe well. We called a restrictive lung defect. You have untreated obesity hypoventilation syndrome as well as untreated obstructive sleep apnea. Understandably you are not comfortable with a sleep mask at night. You struggle to try and maintain the sleep mask but are unable to do so. All of these conditions causes you to have shortness of breath, and low oxygen levels. Plan of Treatment: 1. In review reading all of your notes from your different specialist I will reiterate their advice: + Please see the sleep clinic and see if there is an update to the equipment they can use to help you with your obstructive sleep apnea and obesity hypoventilation syndrome. When you go to sleep your oxygen levels go dangerously low and your carbon dioxide level rises. Both of these are causing long-term brain damage and lung damage. + You do not have congestive heart failure + The tool setter apprentice recommended being treated for the above apnea problem. He also recommended an exercise program to help you start losing weight and to improve your mobility and strength. He also recommended starting on a calorie restriction as well. 2. Sometimes, when you come to the hospital, you are confused in your history. We would recommend that an advocate be present with you when you come to the emergency room to make sure that all the current and correct facts are present in your history. Care Goals: Currently your care goals are to remain at home for as long as possible for as independently as possible. Assessment: Patient understands care goals and will try to follow through. Unfortunately the sleep mask for her apnea is very uncomfortable. She does not really think she is going to be able to comply with that but will go to the sleep clinic to see if there is any "new machines" that can work with her No Smoking: If you smoke, Please STOP! Call for help. Follow-up with: Miryam Potts PA-C [Primary Care Provider] -
--- NOTE | 2022-04-04 10:51 | DISCHARGE SUMMARY ---
Discharge Summary Admit Date: 04/03/22 Discharge Date: 04/04/22 Discharging Provider: Bren Morales MD Primary Care Provider: BIANKA Quinn Code Status: Do Not Attempt Resuscitation Condition at Discharge: Fair Discharge Disposition: 01 Home, Self Care - DIAGNOSES Discharge Diagnoses with Status of Each Condition: 1. Acute on chronic respiratory failure with hypoxemia 2. Cough, suspect upper airway aspiration 3. Hypertension 4. Dysphagia - HPI History of Present Illness: She is a severely morbidly obese female who is wheelchair-bound and bedbound. She is not motivated for exercise, weight loss, and has peripheral neuropathy, chronic pain. She is obesity hypoventilation syndrome that is most likely undiagnosed. She does have obstructive sleep apnea that is a diagnosis but cannot use her CPAP mask because of mask fitting, and discomfort with the mask. She was admitted in October and January of this year. With the October discharge she was discharged on oxygen at 2 L. After her January discharge she was discharged to her home health PT and OT. However she was discharged from the service due to lack of medication, minimal progress and noncompliance with the recommendations. She now presents with a severe cough that started the night before. Would not stop. Because she carries a diagnosis of "congestive heart failure" she was treated as congestive heart failure in the emergency room. Hypoxia was worse than her baseline. She was 88% on room air and required 4 L, 2 L worse than her usual baseline requirement. She denies fever, chills, URI symptoms. No change in phlegm. There is no abdominal discomfort or new diarrhea. However the patient has had an evaluation as recently as March [address] Chon Thakur, [facility] cardiology. She does not have congestive heart failure. She has hypoxia from restrictive lung disease from her obesity, obstructive sleep apnea, and probable obesity hypoventilation syndrome. I am also reviewing CTs where she has a fine reticular nodular pattern on her lungs but no diagnosis after being evaluated in the emergency room and treated for congestive heart failure with a normal BNP, stable chest x-ray, normal labs, she was placed in observation overnight. She was no longer acutely hypoxic. She is back to her baseline 2 L nasal cannula. - CONSULTS | PROCEDURES Procedures: Chest x-ray with cardiomegaly and pulmonary vascular congestion. However the appearance of pulmonary vascular congestion could be due to superimposed overlying soft tissues and body habitus. Underlying interstitial prominence is noted and unchanged. - HOSPITAL COURSE Hospital Course: She had an oxygen desat test done in October 2021. On room air at rest she was 86%. She was then placed on oxygen at rest and O2 sat was 90% on 1 L. And 92% on 2 L. She is unable to ambulate and is wheelchair-bound. As such she is on oxygen for the desat test from October 2021. As such we will continue her oxygen at home. Overnight there is no new events. She does have some rhonchi and problems with secretion clearance and she will get Mucinex for home use. While here she was required her baseline 2 L nasal cannula and is 93 to 95% saturated. Temperature is 37. Heart rate 63. Blood pressure 144/61. Respirations 18. 93% on 2 L. 5 feet 7 inches tall, 137 kg. When she gets excited and starts speaking rapidly she gets short of breath. But it slows down and has a normal conversation with normal speech, is comfortable. Occasional cough that clears up clear phlegm but it is minimal. She has severely diminished breath sounds diffusely. There is no wheezing. Regular rate and rhythm. A large, obese pannus with superobesity. Quiet bowel sounds. No tenderness. Unable to assess for organomegaly. Large limbs, including her legs. Trace edema is in her legs. She is unable to sit up by herself. Completely reliant on contact-guard assist to sit up. At home she is wheelchair-bound or chair bound according to her neighbor and friend Adriana. That is consistent with the history we have had in his chart for the last 2 admissions. During her stay I was able to identify that Adriana is her friend and neighbor. Her sister is Jaja Mosley and lives in [place]. [phone]. Her power of prosecuting attorney is her niece Love Msoley. Love's phone number is [phone]. Her Sister Jaja says that they are very concerned about her. Although she has caregivers several times a week during the day, she is alone at night. She has fallen several times at night and had to be picked up. She is not always compliant with medications or treatment. They feel like she is starting to have cognitive difficulties. They have been trying to convince her to please moved to [place] or to [place] where family is. The patient has said no because [place]. During her [place] intake, she did state that she was starting to feel like she had dysphagia. But while here she is eaten 100% of her food with dinner, 25% of breakfast. No dysphagia manifested there. We did ask for speech therapy to come evaluate the patient but unfortunately they cannot come to late this afternoon and as such the patient will be discharged. We are encouraging her to get outpatient evaluation for dysphagia. - ALLERGIES Allergies/Adverse Reactions: Allergies Allergy/AdvReac Type Severity Reaction Status Date / Time No Known Drug Allergies Allergy Verified 04/03/22 14:14 - MEDICATIONS Home Medications: Ambulatory Orders Medication Instructions Recorded Confirmed Omeprazole 20 mg PO BID 04/27/14 04/03/22 Aspirin [Aspir-Low] 81 mg PO DAILY 09/25/16 04/03/22 Losartan [Cozaar] 100 mg ORAL DAILY #0 04/06/18 04/03/22 Pregabalin [Lyrica] 100 mg PO TID 05/04/19 04/03/22 methocarbamoL [Methocarbamol] 750 mg PO QID PRN 05/05/19 04/03/22 Duloxetine HCl [Cymbalta] 60 mg PO DAILY 10/09/21 04/04/22 HYDROcodone/ACET 7.5/325 [[place] 1 tab PO BID PRN 10/09/21 04/03/22 7.5/325] carvediloL [Coreg] 12.5 mg PO BID 10/09/21 04/03/22 Amitriptyline HCl 50 mg PO QPM 04/03/22 04/03/22 Atorvastatin [Lipitor] 20 mg PO QPM 04/03/22 04/03/22 Furosemide [Lasix] 40 mg PO 1200 04/03/22 04/03/22 Furosemide [Lasix] 60 mg PO DAILY 04/03/22 04/03/22 guaiFENesin [Guaifenesin ER] 600 mg PO BID #60 tab 04/04/22 - LABS Result Diagrams: 04/03/22 14:41 04/03/22 14:41
[2022-04-04 13:26] VITALS: BP 137/53
== END 2022-04-04 14:00 | disposition home or self-care (01) ==
LOC: ED 13:56 → MS2 16:07
PROVIDERS: ADMIT Specialist; ATTEND Specialist
DX: J96.21 Acute and chronic respiratory failure with hypoxia (principal); R05.9 Cough, unspecified; I10 Essential (primary) hypertension; E66.2 Morbid (severe) obesity with alveolar hypoventilation; R13.10 Dysphagia, unspecified; Z68.42 Body mass index [BMI] 45.0-49.9, adult; Z74.01 Bed confinement status; Z99.3 Dependence on wheelchair; G62.9 Polyneuropathy, unspecified; G89.29 Other chronic pain; Z20.822 Contact with and (suspected) exposure to COVID-19; Z99.81 Dependence on supplemental oxygen; J98.4 Other disorders of lung; Z66 Do not resuscitate; R44.3 Hallucinations, unspecified
CPT/HCPCS: 36415; 71045; 80053; 83690; 83880; 84484; 85025; 87635; 93005; 94640; 96374; 99281; 99285; A9270; G0378

== ENCOUNTER 2022-05-10 16:04 | Outpatient (CLI) | payer MEDICARE, BC | END 2022-05-10 16:05 | disposition EMS.NT | LOC: EMS 16:04 | DX: Z03.89 Encounter for observation for other suspected diseases and conditions ruled out (principal) ==

== ENCOUNTER 2022-05-13 11:10 | Outpatient (CLI) | payer MEDICARE, BC | END 2022-05-13 11:11 | disposition critical access hospital (66) | LOC: EMS 11:10 | DX: R41.0 Disorientation, unspecified (principal) | CPT/HCPCS: A0425; A0429 ==

== ENCOUNTER 2022-05-13 11:28 | Emergency (ER) | payer MEDICARE, BC ==
--- NOTE | 2022-05-13 12:10 | ED Physician Documentation ---
PD HPI FOCAL NEURO - Stated complaint Stated Complaint: AMS - Chief complaint Chief Complaint: Neuro - History obtained from History obtained from: Patient, Family - Additional information Additional information: 81-year-old woman with chronic pain and fibromyalgia presents by ambulance. At baseline she basically sits in her recliner all day and has 8 hours of caregiver help with day but lives alone. Reportedly was either weak or altered this morning. Patient's only complaint is chronic pain to the right lower extremity. Per report from EMS she was generally weak this morning and possibly confused. Review of Systems Ten Systems: 10 systems reviewed and negative Constitutional: denies: Fever, Chills GI: denies: Abdominal Pain : reports: Frequency. denies: Dysuria, Hesitancy PD PAST MEDICAL HISTORY - Past Medical History Cardiovascular: Hypertension, High cholesterol, Coronary artery disease, Valve disorder (mild AR), Other (she DOES NOT have congestive heart failure. ) Respiratory: Sleep apnea (untreated for years) Neuro: Peripheral neuropathy (drug induced) Endocrine/Autoimmune: Other (thyroid nodule, fasting hyperglycemia) GI: GERD, Other (Hepatomegaly and fatty liver.) CASTING COORDINATOR: Breast cancer (Lumpectomy/XRT followed by adjuvant AC/T 2005) : Frequency HEENT: Chronic vision loss Psych: None Musculoskeletal: Osteoarthritis, Fibromyalgia, Chronic back pain (skilled nursing use opiates, LESI 05/2020), Other (R foot pain ) Derm: Rosacea - Past Surgical History Past Surgical History: Yes General: Cholecystectomy, Appendectomy, Colonoscopy /CASTING COORDINATOR: Hysterectomy, Oophrectomy, Other HEENT: Cataracts Derm: Skin cancer surgery - Present Medications Home Medications: Ambulatory Orders Medication Instructions Recorded Confirmed Omeprazole 20 mg PO BID 04/27/14 04/03/22 Aspirin [Aspir-Low] 81 mg PO DAILY 09/25/16 04/03/22 Losartan [Cozaar] 100 mg ORAL DAILY #0 04/06/18 05/13/22 Pregabalin [Lyrica] 100 mg PO TID 05/04/19 04/03/22 methocarbamoL [Methocarbamol] 750 mg PO QID PRN 05/05/19 05/13/22 Duloxetine HCl [Cymbalta] 60 mg PO DAILY 10/09/21 05/13/22 HYDROcodone/ACET 7.5/325 [[place] 1 tab PO BID PRN 10/09/21 04/03/22 7.5/325] carvediloL [Coreg] 12.5 mg PO BID 10/09/21 05/13/22 Amitriptyline HCl 50 mg PO QPM 04/03/22 04/03/22 Atorvastatin [Lipitor] 20 mg PO QPM 04/03/22 05/13/22 Furosemide [Lasix] 40 mg PO 1200 04/03/22 05/13/22 Furosemide [Lasix] 60 mg PO DAILY 04/03/22 05/13/22 guaiFENesin [Guaifenesin ER] 600 mg PO BID #60 tab 04/04/22 05/13/22 Nitrofurantoin [Macrobid] 1 cap PO BID #10 cap 05/13/22 - Allergies Allergies/Adverse Reactions: Allergies Allergy/AdvReac Type Severity Reaction Status Date / Time No Known Drug Allergies Allergy Verified 04/03/22 14:14 - Social History Does the pt smoke?: No Smoking Status: Never smoker Does the pt drink ETOH?: No Does the pt have substance abuse?: Yes - Immunizations Immunizations are current?: Yes - POLST Patient has POLST: No PD ED PE NORMAL - Vitals Vital signs reviewed: Yes - General General: Alert and oriented X 3 (Poor historian but technically alert and oriented x3) - HEENT HEENT: PERRL, EOMI - Neck Neck: Supple, no meningeal sign, No bony TTP - Cardiac Cardiac: RRR, No murmur - Respiratory Respiratory: No respiratory distress, Clear bilaterally - Abdomen Abdomen: Normal bowel sounds, Soft, Non tender - Back Back: No CVA TTP, No spinal TTP - Derm Derm: Normal color, Warm and dry - Extremities Extremities: Other (Diffuse none localizable tenderness about the right leg and both ankles are in chronic splints.) - Neuro Neuro: Alert and oriented X 3, No motor deficit, No sensory deficit, Normal speech Eye Opening: Spontaneous Motor: Obeys Commands Verbal: Oriented GCS Score: 15 Results - Vitals Vitals: Vital Signs - 24 hr 05/13/22 05/13/22 11:43 14:29 Temperature 37.2 C Heart Rate 54 L 62 Respiratory 17 15 Rate Blood Pressure 128/94 H 146/128 H O2 Saturation 99 100 Oxygen O2 Source [] nasal canule 2LO2 O2 Source [] Nasal canule 2L O2 O2 Source Room air Oxygen Flow Rate 2 - Labs Labs: Laboratory Tests 05/13/22 05/13/22 05/13/22 13:08 13:08 14:11 WBC 7.0 RBC 3.77 L Hgb 11.6 L Hct 39.6 MCV 105.0 H MCH 30.8 MCHC 29.3 L RDW 14.4 Plt Count 203 MPV 10.8 Neut # (Auto) 5.0 Lymph # (Auto) 1.1 L [place] # (Auto) 0.7 Eos # (Auto) 0.2 Baso # (Auto) 0.0 Absolute Nucleated RBC 0.00 Nucleated RBC % 0.0 VBG pH VBG pCO2 VBG pO2 VBG HCO3 VBG Total CO2 VBG O2 Saturation VBG Base Excess Sodium 137 Potassium 5.0 Chloride 90 L Carbon Dioxide 42 H* Anion Gap 5.0 L BUN 21 H Creatinine 1.0 Estimated GFR (MDRD) 53 L Glucose 97 Calcium 9.2 Magnesium 2.4 Total Bilirubin 0.6 AST 16 ALT 21 Alkaline Phosphatase 66 Ammonia 21.0 Total Protein 6.1 L Albumin 3.2 Globulin 2.9 Albumin/Globulin Ratio 1.1 Urine Color Urine Clarity Urine pH Ur Specific [place] Urine Protein Urine Glucose (UA) Urine Ketones Urine Occult Blood Urine Nitrite Urine Bilirubin Urine Urobilinogen Ur Leukocyte Esterase Ur Microscopic Review Urine Culture Comments Ethyl Alcohol < 5.0 05/13/22 05/13/22 14:11 14:25 WBC RBC Hgb Hct MCV MCH MCHC RDW Plt Count MPV Neut # (Auto) Lymph # (Auto) [place] # (Auto) Eos # (Auto) Baso # (Auto) Absolute Nucleated RBC Nucleated RBC % VBG pH 7.308 L VBG pCO2 76.0 H VBG pO2 26.2 VBG HCO3 37.2 H VBG Total CO2 39.6 H VBG O2 Saturation 55.4 L VBG Base Excess 8.3 H Sodium Potassium Chloride Carbon Dioxide Anion Gap BUN Creatinine Estimated GFR (MDRD) Glucose Calcium Magnesium Total Bilirubin AST ALT Alkaline Phosphatase Ammonia Total Protein Albumin Globulin Albumin/Globulin Ratio Urine Color YELLOW Urine Clarity HAZY Urine pH 5.5 Ur Specific [place] 1.020 Urine Protein NEGATIVE Urine Glucose (UA) NEGATIVE Urine Ketones NEGATIVE Urine Occult Blood SMALL H Urine Nitrite POSITIVE H Urine Bilirubin NEGATIVE Urine Urobilinogen 0.2 (NORMAL) Ur Leukocyte Esterase SMALL H Ur Microscopic Review INDICATED Urine Culture Comments Not Reportable Ethyl Alcohol - Rads (name of study) CT of the head normal with the exception of suggestion of tracheobronchomalacia Radiology: EMP read contemporaneously Pelvic CT without acute abnormality. Severe osteoarthritis Radiology: EMP read contemporaneously CT cervical spine negative Radiology: EMP read contemporaneously X-ray right ankle pes planus, no bony acute disease Radiology: EMP read contemporaneously Three-view x-ray right knee unremarkable Radiology: EMP read contemporaneously PD MEDICAL DECISION MAKING - ED course ED course: 81-year-old woman presents with mild confusion. Differential diagnosis is broad but given her elevated bicarb this is probably acute on chronic CO2 retention. And a venous gas was done showing a very mild acidosis with a CO2 of 76. There are no priors available for comparison. Discussed this with patient's, it is at least probably mostly chronic given her elevated bicarb. She has been noncompliant with recommended CPAP. I discussed with her that if she were to wear CPAP overnight she would probably be doing much better and this would not be an issue. She is not very confused here, and she did request COVID and flu vaccines while she is here. I asked the pharmacist we do not have these available for dispensing from the hospital. She does have a positive urinalysis in the setting of acute urinary frequency lasting last 2 days so we will treat with antibiotics. Departure - Departure Disposition: 01 Home, Self Care Clinical Impression: Pickwickian syndrome UTI (urinary tract infection) Qualifiers: Urinary tract infection type: acute cystitis Hematuria presence: without hematuria Qualified Code(s): N30.00 - Acute cystitis without hematuria Condition: Good Record reviewed to determine appropriate education?: Yes Instructions: ED UTI Cystitis Female Prescriptions: Nitrofurantoin [Macrobid] 1 cap PO BID #10 cap Comments: You are seen today with confusion. You do have evidence of a urinary tract infection, and I am treating with this and antibiotics, but that said probably more the cause of your confusion would be oxide retention, which can cause your brain to slow down. I recommend you be compliant with your CPAP at night, this should help with that. Return for new or worsening symptoms. Follow-up with your primary care physician, next available appointment.
[2022-05-13 13:14] LABS: BASOPHILS % (AUTO) 0.6 %; EOSINOPHILS # (AUTO) 0.2 10^3/uL (0.0-0.7); EOSINOPHILS % (AUTO) 3.3 %; HCT - HEMATOCRIT 39.6 % (37.0-47.0); HGB - HEMOGLOBIN 11.6 g/dL (12.0-16.0); LYMPHOCYTES # (AUTO) 1.1 10^3/uL (1.5-3.5); LYMPHOCYTES % (AUTO) 15.4 %; MEAN CORPUSCULAR HEMOGLOBIN 30.8 pg (27.0-31.0); MEAN CORPUSCULAR HGB CONC 29.3 g/dL (32.0-36.0); MEAN PLATELET VOLUME 10.8 fL (7.9-10.8); MONOCYTES # (AUTO) 0.7 10^3/uL (0.0-1.0); MONOCYTES % (AUTO) 9.4 %; NEUTROPHILS % (AUTO) 70.9 %; PLT - PLATELET COUNT 203 10^3/uL (130-450); RED BLOOD COUNT 3.77 10^6/uL (4.20-5.40); RED CELL DISTRIBUTION WIDTH 14.4 % (12.0-15.0)
--- NOTE | 2022-05-13 13:16 | XRAY Report ---
PROCEDURE: Knee 3 View RT INDICATIONS: LEG PAIN, POSS INJURY TECHNIQUE: 3 views of the right knee(s) were acquired. COMPARISON: None. FINDINGS: Examination limited by body habitus and technique. No obvious fracture. Normal patellar height and po sition. IMPRESSION: Exam limited by body habitus and positioning/technique. No obvious fracture. Reviewed by: Brendon Price MD on 05/13/2022 1:15 PM PDT Approved by: Brendon Price MD on 05/13/2022 1:15 PM PDT Station ID: [id number]
--- NOTE | 2022-05-13 13:18 | XRAY Report ---
PROCEDURE: Ankle 3 View RT INDICATIONS: leg pain, poss injury TECHNIQUE: 3 views of the ankle were acquired. COMPARISON: None FINDINGS/IMPRESSION: 1. Exam limited by body habitus and technique. 2. No definite fracture identified. 3. Diffuse soft tissue edema. 4. Pes planus deformity. Reviewed by: Brendon Price MD on 05/13/2022 1:16 PM PDT Approved by: Brendon Price MD on 05/13/2022 1:16 PM PDT Station ID: [id number]
[2022-05-13 13:31] LABS: ALBUMIN 3.2 g/dL (3.2-5.5); ALBUMIN/GLOBULIN RATIO 1.1 (1.0-2.2); ALKALINE PHOSPHATASE 66 IU/L (42-121); ALT ALANINE AMINOTRANSFERASE 21 IU/L (10-60); AST ASPARTATE AMINOTRANSFERASE 16 IU/L (10-42); BILIRUBIN,TOTAL 0.6 mg/dL (0.2-1.0); BUN - BLOOD UREA NITROGEN 21 mg/dL (6-20); CALCIUM 9.2 mg/dL (8.5-10.3); CHLORIDE 90 mmol/L (101-111); ETOH - ETHANOL < 5.0 mg/dL; GFR - MDRD 53 (>89); GLUCOSE 97 mg/dL (70-100); MAGNESIUM 2.4 mg/dL (1.7-2.8); SODIUM 137 mmol/L (135-145); TOTAL PROTEIN 6.1 g/dL (6.7-8.2)
[2022-05-13 13:32] LABS: CARBON DIOXIDE - CO2 42 mmol/L (21-32)
--- NOTE | 2022-05-13 14:06 | CT Report ---
PROCEDURE: CERVICAL SPINE WO INDICATIONS: head inj TECHNIQUE: Noncontrast 3 mm thick sections acquired from the skull base to the T4 level. Sagittal and coronal r eformats were then constructed. For radiation dose reduction, the following was used: automated exp osure control, adjustment of mA and/or kV according to patient size. COMPARISON: None. FINDINGS: Image quality: Excellent. Bones: No fractures or dislocations. Visualized superior ribs are intact. Soft tissues: Prevertebral soft tissues are normal in thickness. No paravertebral hematomas. No ap ical pneumothoraces. Pronounced bowing of the posterior tracheal membrane suggestive of tracheobronc hial malacia. IMPRESSION: No CT evidence of acute traumatic cervical spine injury. Bowing of the posterior tracheal membrane in the upper chest suggestive of tracheobronchomalacia. Reviewed by: Brendon Price MD on 05/13/2022 2:04 PM PDT Approved by: Brendon Price MD on 05/13/2022 2:04 PM PDT Station ID: [id number]
--- NOTE | 2022-05-13 14:07 | CT Report ---
PROCEDURE: HEAD WO INDICATIONS: head inj TECHNIQUE: Noncontrast 4.5 mm thick angled axial sections acquired from the foramen magnum to the vertex. For r adiation dose reduction, the following was used: automated exposure control, adjustment of mA and/or kV according to patient size. COMPARISON: None. FINDINGS: Image quality: Excellent. CSF spaces: Basal cisterns are patent. No extra-axial fluid collections. Ventricles are normal in size and shape. Brain: No midline shift. No intracranial masses or hemorrhage. Valentin-white matter interface is norm al. Skull and face: Calvarium and visualized facial bones are intact, without suspicious lesions. Sinuses: Visualized sinuses and mastoids are clear. IMPRESSION: No acute intracranial finding. Reviewed by: Brendon Price MD on 05/13/2022 2:05 PM PDT Approved by: Brendon Price MD on 05/13/2022 2:05 PM PDT Station ID: [id number]
--- NOTE | 2022-05-13 14:11 | CT Report ---
PROCEDURE: PELVIS WO INDICATIONS: RLE pain TECHNIQUE: Noncontrast 3 mm axial sections acquired through the bony pelvis, with coronal and sagittal reformatt ing. For radiation dose reduction, the following was used: automated exposure control, adjustment of mA and/or kV according to patient size. COMPARISON: Pelvic and hip radiograph dated 05/13/2022. FINDINGS: Image quality: Excellent. Bones: Diffuse osteopenia is seen. There is severe bilateral hip joint osteoarthritis with joint spa ce narrowing, extensive subchondral sclerosis and cyst formation and prominent marginal osteophyte fo rmation. No definite acute fracture or dislocation is seen in bony pelvis or right hip. No evidence o f avascular necrosis of femoral head. Moderate osteoarthritic changes also seen in bilateral sacroili ac joints and symphysis pubis. No suspicious intraosseous lesion. Degenerative disc disease in visual ized lower lumbar spine is seen. Soft tissues: There is no pelvic free fluid of free air. No abnormal bowel wall thickening. Bladder wall thickness is normal. No pelvic or inguinal lymphadenopathies. No gross soft tissue mass or fluid collection. No abnormal soft tissue calcifications are seen. IMPRESSION: 1. No definite acute pelvic or hip fracture. Diffuse osteopenia. 2. Severe bilateral hip joint osteoarthritis. Moderate bilateral sacroiliac joint osteoarthritis and symphysis pubis osteoarthritis. No evidence of avascular necrosis of femoral head. No suspicious bony lesion. Degenerative disc disease in visualized lower lumbar spine. 3. No gross pelvic or hip soft tissue abnormalities. No pelvic free fluid of free air. No abnormal so ft tissue calcifications. Reviewed by: Roberth Hendrickson MD on 05/13/2022 2:09 PM PDT Approved by: Roberth Hendrickson MD on 05/13/2022 2:09 PM PDT Station ID: [id number]
[2022-05-13 14:21] LABS: VBG PH 7.308 (7.31-7.41); VBG PO2 26.2 mmHg (25-47)
[2022-05-13 14:22] LABS: VBG BASE EXCESS 8.3 mmol/L (-2 - +2); VBG HCO3 37.2 mmol/L (23-28); VBG OXYGEN SATURATION 55.4 % (60-80); VBG TOTAL CO2 39.6 mmol/L (24-29)
[2022-05-13 14:30] VITALS: BP 146/128
[2022-05-13 14:49] LABS: BILIRUBIN,URINE NEGATIVE (NEGATIVE); GLUCOSE, URINE (UA) NEGATIVE (NEGATIVE); KETONES,URINE (UA) NEGATIVE (NEGATIVE); LEUKOCYTE ESTERASE, URINE SMALL (NEGATIVE); NITRITE,URINE POSITIVE (NEGATIVE); OCCULT BLOOD,URINE SMALL (NEGATIVE); PH,URINE 5.5 PH (5.0-7.5); PROTEIN,URINE NEGATIVE (NEGATIVE); UROBILINOGEN,URINE 0.2 (NORMAL) E.U./dL (NORMAL)
[2022-05-13 14:52] LABS: CLARITY,URINE HAZY (CLEAR)
[2022-05-13] MEDS ORDERED: NITROFURANTOIN MACRO 100 MG CAPSULE PO STA (14:54)
[2022-05-13 15:00] LABS: BACTERIA,URINE Many /HPF (None Seen); SQUAMOUS EPITHELIAL CELL,UR FEW Squamous (<= Few)
== END 2022-05-13 15:40 | disposition home or self-care (01) ==
LOC: EDUNIT# → ED 11:28
DX: E66.2 Morbid (severe) obesity with alveolar hypoventilation (principal); Z68.43 Body mass index [BMI] 50.0-59.9, adult; E87.20 Acidosis, unspecified; N30.00 Acute cystitis without hematuria; R53.1 Weakness; R41.0 Disorientation, unspecified; M79.661 Pain in right lower leg; G89.29 Other chronic pain; W18.30XA Fall on same level, unspecified, initial encounter; M21.41 Flat foot [pes planus] (acquired), right foot; M79.7 Fibromyalgia; I10 Essential (primary) hypertension; Z79.82 Long term (current) use of aspirin
CPT/HCPCS: 36415; 51702; 70450; 72125; 72192; 73562; 73610; 80053; 81001; 82140; 82803; 83735; 85025; 87086; 99283; 99284; A9270; G0480; 80320; 81003

== ENCOUNTER 2022-05-13 15:42 | Outpatient (CLI) | payer MEDICARE, BC | END 2022-05-13 15:43 | disposition home or self-care (01) | LOC: EMS 15:42 | PROVIDERS: ATTEND Emergency Medicine | DX: R41.0 Disorientation, unspecified (principal); N39.0 Urinary tract infection, site not specified; Z74.01 Bed confinement status | CPT/HCPCS: A0425; A0428 ==

== ENCOUNTER 2022-05-13 19:19 | Outpatient (CLI) | payer MEDICARE, BC | END 2022-05-13 19:20 | disposition EMS.NT | LOC: EMS 19:19 | DX: Z03.89 Encounter for observation for other suspected diseases and conditions ruled out (principal) ==

== ENCOUNTER 2022-05-16 02:48 | Outpatient (CLI) | payer MEDICARE, BC | END 2022-05-16 02:49 | disposition EMS.NT | LOC: EMS 02:48 | DX: Z03.89 Encounter for observation for other suspected diseases and conditions ruled out (principal) ==

== ENCOUNTER 2022-05-18 01:19 | Outpatient (CLI) | payer MEDICARE, BC | END 2022-05-18 01:20 | disposition EMS.NT | LOC: EMS 01:19 | DX: Z03.89 Encounter for observation for other suspected diseases and conditions ruled out (principal) ==

== ENCOUNTER 2022-05-24 10:00 | Outpatient (CLI) | payer MEDICARE, BC | END 2022-05-24 10:01 | disposition EMS.NT | LOC: EMS 10:00 | DX: Z03.89 Encounter for observation for other suspected diseases and conditions ruled out (principal) ==

== ENCOUNTER 2022-06-02 15:49 | Outpatient (CLI) | payer MEDICARE, BC | END 2022-06-02 15:50 | disposition critical access hospital (66) | LOC: EMS 15:49 | DX: R10.9 Unspecified abdominal pain (principal); R41.0 Disorientation, unspecified | CPT/HCPCS: A0425; A0429 ==

== ENCOUNTER 2022-06-02 16:09 | Inpatient (IN) | payer MEDICARE, BC ==
--- NOTE | 2022-06-02 16:24 | ED Physician Documentation ---
History of Present Illness - Stated complaint Stated Complaint: FEMALE - Chief complaint Chief Complaint: General - Additonal information Additional information: 81-year-old female is brought to the emergency department for evaluation of suspected UTI. She has a history of COPD, CHF, fibromyalgia and arthritis. She is oxygen dependent at 3 L. At baseline she typically sits in her recliner all day. She does have 8 hours of caregiver help daily. However she does live alone. She was seen recently in this emergency department for some confusion and lethargy. At that time the imaging did not reveal anything obvious but she was noted to have a mild acidosis and a CO2 of 76. The confusion was felt likely to be secondary to noncompliance with CPAP and possible obesity hypoventilation syndrome. At that time she was also thought to have a urine consistent with infection was started on Macrobid. Patient on presentation today is lethargic, but responding appropriately to questions. She reports that she was trying to get help to talk to her doctor though she is unsure why she wanted to talk to the doctor. Therefore she called 911. The patient's neighbor iterated to EMS that she thought maybe the patient had a urinary tract infection. I am unable to discern from the patient whether she is compliant with her medications or which medication she takes exactly. She appears chronically ill morbidly obese and very geriatric in appearance Review of Systems Unable to obtain: Confused Constitutional: denies: Fever, Chills Respiratory: reports: Dyspnea (At baseline, 3 L O2) PD PAST MEDICAL HISTORY - Past Medical History Cardiovascular: Hypertension, High cholesterol, Coronary artery disease, Valve disorder (mild AR), Other (she DOES NOT have congestive heart failure. 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 HOME THERAPY: Hysterectomy, Oophrectomy, Other HEENT: Cataracts Derm: Skin cancer surgery - Present Medications Home Medications: Ambulatory Orders Medication Instructions Recorded Confirmed Omeprazole 20 mg PO BID 04/27/14 06/02/22 Aspirin [Aspir-Low] 81 mg PO DAILY 09/25/16 06/02/22 methocarbamoL [Methocarbamol] 750 mg PO QID PRN 05/05/19 06/02/22 Duloxetine HCl [Cymbalta] 60 mg PO DAILY 10/09/21 06/02/22 HYDROcodone/ACET 7.5/325 [[place] 1 tab PO BID PRN 10/09/21 06/02/22 7.5/325] carvediloL [Coreg] 12.5 mg PO BID 10/09/21 06/02/22 Amitriptyline HCl 50 mg PO QPM 04/03/22 06/02/22 Atorvastatin [Lipitor] 20 mg PO QPM 04/03/22 06/02/22 Furosemide [Lasix] 40 mg PO 1200 04/03/22 06/02/22 Furosemide [Lasix] 60 mg PO DAILY 04/03/22 06/02/22 Losartan Potassium [Cozaar] 100 mg PO DAILY 06/02/22 06/02/22 Pregabalin 50 mg PO TID 06/02/22 06/02/22 - Allergies Allergies/Adverse Reactions: Allergies Allergy/AdvReac Type Severity Reaction Status Date / Time No Known Drug Allergies Allergy Verified 06/02/22 16:18 - Social History Does the pt smoke?: No Smoking Status: Never smoker Does the pt drink ETOH?: No Does the pt have substance abuse?: Yes - Immunizations Immunizations are current?: Yes - POLST Patient has POLST: No PD ED PE NORMAL - General General: Alert and oriented X 3 (Patient is lethargic but able to respond appropriately to questions by stating that she is in the hospital, has a hard time breathing and that she was trying to call her doctor), Other (Somewhat lethargic but is able to answer all questions easily. She has nonfocal.) - HEENT HEENT: PERRL, EOMI - Cardiac Cardiac: RRR, No murmur - Respiratory Respiratory: Clear bilaterally. No: No respiratory distress (Appears labored) - Abdomen Abdomen: Normal bowel sounds, Soft, Non tender (Normal bowel sounds; nontender. Very distended abdomen), Other - Derm Derm: Normal color, Warm and dry, No rash - Extremities Extremities: No deformity, Normal ROM s pain (Extremities are rigid. Secondary to pain she is unwilling or unable to flex at the hips and knees). No: No edema (Extensive 2+ pitting edema bilateral lower extremities) - Neuro Neuro: Alert and oriented X 3 (Lethargic), superintendent plant 2-12 intact, No motor deficit, No sensory deficit, Normal speech Eye Opening: Spontaneous Motor: Obeys Commands Verbal: Confused GCS Score: 14 Results - Vitals Vitals: Vital Signs - 24 hr 06/02/22 06/02/22 16:15 17:10 Temperature 97.6 C H Heart Rate 62 64 Respiratory 20 26 H Rate Blood Pressure 160/143 H 199/140 H O2 Saturation 97 95 If not protocol 4 : Oxygen Flow, liters/minute Oxygen O2 Source [Without Activity] nasal canule 2LO2 O2 Source [With Activity] Nasal canule 2L O2 O2 Source Nasal cannula - Labs Labs: Laboratory Tests 06/02/22 06/02/22 06/02/22 16:31 16:31 16:45 WBC 11.2 H RBC 3.90 L Hgb 11.7 L Hct 37.6 MCV 96.4 MCH 30.0 MCHC 31.1 L RDW 13.9 Plt Count 230 MPV 10.0 Neut # (Auto) 9.6 H Lymph # (Auto) 0.7 L [place] # (Auto) 0.8 Eos # (Auto) 0.1 Baso # (Auto) 0.0 Absolute Nucleated RBC 0.00 Nucleated RBC % 0.0 Sodium 117 L* Potassium 5.0 Chloride 74 L* Carbon Dioxide 35 H Anion Gap 8.0 BUN 15 Creatinine 0.6 Estimated GFR (MDRD) 96 Glucose 136 H Calcium 9.0 Total Bilirubin 0.7 AST 14 ALT 16 Alkaline Phosphatase 92 Total Protein 6.8 Albumin 3.8 Globulin 3.0 Albumin/Globulin Ratio 1.3 Lipase 26 Urine Color YELLOW Urine Clarity HAZY Urine pH 7.5 Ur Specific [place] 1.015 Urine Protein 30 H Urine Glucose (UA) NEGATIVE Urine Ketones TRACE Urine Occult Blood SMALL H Urine Nitrite NEGATIVE Urine Bilirubin NEGATIVE Urine Urobilinogen 1 (NORMAL) Ur Leukocyte Esterase TRACE H Urine RBC 6-10 H Urine WBC 11-25 H Ur Squamous Epith Cells FEW Squamous Urine Bacteria Moderate H Ur Microscopic Review INDICATED Urine Culture Comments INDICATED PD MEDICAL DECISION MAKING - ED course Complexity details: reviewed results, re-evaluated patient, considered differential, d/w patient ED course: 81-year-old female presents the emergency department alert to though mildly confused. She was attempting to contact her doctor but could not do that therefore she called 911. She does have a history of fibromyalgia and COPD as well as arthritis. Historically she is to use CPAP at night but it is suspected that she does not. She typically spends most of her time in the recliner. She lives alone but does have 8 hours of caregiving a day. A neighbor had suspicion that the patient may have a urinary tract infection and she was treated for such recently. On presentation to the emergency department the patient is lethargic but responds appropriately to questions. She is able to tell me that she is trying to call her doctor but was unsure why. She does not appear focal. She is morbidly obese and dyspneic which I assume given the body habitus is a baseline status. saturations are low to mid 90s. This is on baseline 3 L nasal cannula. Here in the emergency department we were able to obtain a catheterized urine specimen which is consistent with acute cystitis. Ceftriaxone was administered in the emergency department but given the lethargy and the recent history of acidosis with suspected hypoventilation syndrome, CBC and electrolytes were obtained. Surprisingly she is found to have a very low sodium of 117 and a chloride of 74. It is not clear the etiology of this hyponatremia as it is a ma rked difference from 3 weeks ago. I am uncertain if the patient is taking her routine medications as she should. However given the lethargy and the hyponatremia I have discussed this case with Dr. Morales and she agrees to bring the patient in for further evaluation and treatment of her hyponatremia Departure - Departure Disposition: [facility] DC/Xfer Clinical Impression: Hyponatremia, Lethargic Acute cystitis Qualifiers: Hematuria presence: without hematuria Qualified Code(s): N30.00 - Acute cystitis without hematuria Altered mental status Qualifiers: Altered mental status type: somnolence Qualified Code(s): R40.0 - Somnolence
[2022-06-02 16:36] LABS: BASOPHILS % (AUTO) 0.2 %; EOSINOPHILS # (AUTO) 0.1 10^3/uL (0.0-0.7); EOSINOPHILS % (AUTO) 0.7 %; HCT - HEMATOCRIT 37.6 % (37.0-47.0); HGB - HEMOGLOBIN 11.7 g/dL (12.0-16.0); LYMPHOCYTES # (AUTO) 0.7 10^3/uL (1.5-3.5); LYMPHOCYTES % (AUTO) 5.8 %; MEAN CORPUSCULAR HGB CONC 31.1 g/dL (32.0-36.0); MEAN CORPUSCULAR VOLUME 96.4 fL (81.0-99.0); MONOCYTES # (AUTO) 0.8 10^3/uL (0.0-1.0); MONOCYTES % (AUTO) 7.1 %; NEUTROPHILS # (AUTO) 9.6 10^3/uL (1.5-6.6); NEUTROPHILS % (AUTO) 85.8 %; PLT - PLATELET COUNT 230 10^3/uL (130-450); RED CELL DISTRIBUTION WIDTH 13.9 % (12.0-15.0); WHITE BLOOD COUNT 11.2 x10^3/uL (4.8-10.8)
[2022-06-02 16:51] LABS: BILIRUBIN,URINE NEGATIVE (NEGATIVE); GLUCOSE, URINE (UA) NEGATIVE (NEGATIVE); KETONES,URINE (UA) TRACE mg/dL (NEGATIVE); LEUKOCYTE ESTERASE, URINE TRACE (NEGATIVE); NITRITE,URINE NEGATIVE (NEGATIVE); OCCULT BLOOD,URINE SMALL (NEGATIVE); PH,URINE 7.5 PH (5.0-7.5); PROTEIN,URINE 30 mg/dL (NEGATIVE); UROBILINOGEN,URINE 1 (NORMAL) E.U./dL (NORMAL)
[2022-06-02 16:55] LABS: CLARITY,URINE HAZY (CLEAR)
[2022-06-02 17:01] LABS: BACTERIA,URINE Moderate /HPF (None Seen); SQUAMOUS EPITHELIAL CELL,UR FEW Squamous (<= Few)
[2022-06-02 17:02] LABS: ALBUMIN 3.8 g/dL (3.2-5.5); ALBUMIN/GLOBULIN RATIO 1.3 (1.0-2.2); BILIRUBIN,TOTAL 0.7 mg/dL (0.2-1.0); CREATININE 0.6 mg/dL (0.4-1.0); TOTAL PROTEIN 6.8 g/dL (6.7-8.2)
[2022-06-02] MEDS ORDERED: cefTRIAXone 1 GM VIAL IM STA (17:09)
[2022-06-02] MEDS ORDERED: LIDOCAINE 1% 2 ML VIAL MC ONE (17:09)
[2022-06-02] MEDS ORDERED: ONDANSETRON ODT 4 MG TABLET TL PRN (17:15)
[2022-06-02] MEDS ORDERED: ONDANSETRON 4 MG/2 ML VIAL IVP PRN (17:15)
[2022-06-02] MEDS ORDERED: oxyCODONE 5 MG TABLET PO PRN (17:15)
[2022-06-02] MEDS ORDERED: ACETAMINOPHEN 325 MG TABLET PO PRN (17:15)
--- NOTE | 2022-06-02 17:29 | HISTORY & PHYSICAL EXAMINATION ---
Chief Complaint - Chief Complaint Chief Complaint: confusion History of Present Illness - Admitted From Admitted From:: home via EMS - History Obtained From Records Reviewed: [facility] History obtained from: TERESE Katz and neighbor Adriana Exam Limitations: Patient is lethargic, not able to focus slow to respond - History of Present Illness HPI Comment/Other: This unfortunate female lives alone but has many caregiver hours. She is not left alone by herself in her home for very long. She is on oxygen at 3 L baseline. She sits in her chair all day long, recliner. Right now, if they maneuver it and she is having a good day, they can get her in a wheelchair to a [employer] to take her to her appointments. For the most part she does manage her own medications and they trust her to do so if she is "in her right mind". For the last few days they wonder about that because she has been confused. There is no one thing that set it off. She has been going downhill for the last few weeks with regards to leg edema, pain. Trying to get her to her PCP office. She is a hoarder. The caregivers and her neighbor Adriana will clean out the house 2 or 3 times a year. Most recently her primary care provider has referred her to Nate Aguillon for chronic pain and was also referred to Pulmonology but no visit yet. seen in the walk-in clinic April 25 when she fell in her tub and she has some transverse process fractures. That clinic note also notes that she is supposed to be off Lasix since she does not have congestive heart failure. But in stopping the Lasix she got increasing leg edema that was distressing to her. Was seen May 13 for confusion and lethargy and she had hypercapnia. Thought to be noncompliance with CPAP. She also had a possible UTI and was discharged on Macrobid. Today she says that she wanted to talk to her doctor's office. She and her friend Artem have been playing phone tag. The patient was getting "goofy". She hallucinates and gets delusional. Her friend probably usually associates that with a UTI so they began playing phone tag with the PCP office trying to get a UA or treatment for a UTI. She was on the phone and could not figure out what to dial and The PCP office ended up calling EMS and they picked her up. Adriana is her friend and neighbor and Adriana advised the ER and EMS staff that this patient gets very confused when she gets UTIs. Adriana does not describe Ms. Breaux having any fever, chills, cough. No chest congestion. No rhinorrhea. No complaints of sore throat.She does have leg edema that is been getting worse.In the past she has carried a diagnosis of "congestive heart failure". But cardiology evaluation this last summer is very definitive and saying this patient does not have congestive heart failure. Which she has is chronic venous stasis and leg edema from being morbidly obese. More a lymphedema picture. And while Lasix is used judiciously, it may not be the best thing for her. Unfortunately her review of systems is noncontributory When I try and talk to her. She is not able to focus. She is described as alert and oriented and that she knows where she is why she is here but her answers are lethargic. Slow. No respiratory distress. She is afebrile, hypertensive at 160/143. White cell count is elevated, hemoglobin is anemic but she is always anemic. Sodium is 117. Chloride 74. Creatinine 0.6. Random glucose 136. Urinalysis has squamous cells and moderate bacteria's will not be sent off for analysis. On May 13 she had a knee x-ray, and ankle x-ray, pelvis CT, C-spine CT and a head CT. There is no history of trauma with this current stay and as such no repeat radiologic studies were done. The hospitalist service has been asked to admit this patient because of the altered mental status and hyponatremia of 117. This sodium level is new for her. With her May 13 visit she was 137. Blood gas has yet to be done to assess for hypercapnia. History - Past Medical History Cardiovascular: reports: Hypertension, High cholesterol, Coronary artery disease, Valve disorder (mild AR), Other (she DOES NOT have congestive heart failure. 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 has spinal stenosis), Other (R foot pain from post tibial tendon dysfuntion, freq muscle spasm, cramps of foot. uses brace prn) Derm: reports: Rosacea MRSA Hx?: No - Past Surgical History General: reports: Cholecystectomy, Appendectomy, Colonoscopy /BULK MAIL CLERK: reports: Hysterectomy, Oophrectomy, Other HEENT: reports: Cataracts Derm: reports: Skin cancer surgery - Family & Social History Family History: Mother: , Father: Family History Comment/Other: Father of heart disease at the age of 50. Mom of old age at 84 but had high blood pressure, diabetes, Parkinson's disease. 1 brother of unknown causes. 1 sister alive but very ill with unknown causes. 2 children described as completely healthy without any medical illnesses. Living arrangement: At home Living Situation: Alone, With caregiver(s) Social History Notes: She has been retired now for almost 16 years. Lives [place] on the [place]. No history of alcohol or substance abuse per her friend and neighbor Adrinaa. Patient confabulates her social history at times - Substance History Use: Uses substance without health or social issues: NONE - POLST Patient has POLST: No POLST Status: DNR Meds/Allgy - Home Medications Home Medications: Ambulatory Orders Medication Instructions Recorded Confirmed Omeprazole 20 mg PO BID 04/27/14 06/02/22 Aspirin [Aspir-Low] 81 mg PO DAILY 09/25/16 06/02/22 methocarbamoL [Methocarbamol] 750 mg PO QID PRN 05/05/19 06/02/22 Duloxetine HCl [Cymbalta] 60 mg PO DAILY 10/09/21 06/02/22 HYDROcodone/ACET 7.5/325 [[place] 1 tab PO BID PRN 10/09/21 06/02/22 7.5/325] carvediloL [Coreg] 12.5 mg PO BID 10/09/21 06/02/22 Amitriptyline HCl 50 mg PO QPM 04/03/22 06/02/22 Atorvastatin [Lipitor] 20 mg PO QPM 04/03/22 06/02/22 Furosemide [Lasix] 40 mg PO 1200 04/03/22 06/02/22 Furosemide [Lasix] 60 mg PO DAILY 04/03/22 06/02/22 Losartan Potassium [Cozaar] 100 mg PO DAILY 06/02/22 06/02/22 Pregabalin 50 mg PO TID 06/02/22 06/02/22 - Allergies Allergies/Adverse Reactions: Allergies Allergy/AdvReac Type Severity Reaction Status Date / Time No Known Drug Allergies Allergy Verified 06/02/22 16:18 Review of Systems - All Other Systems All Other Systems: reports: Other (Chronic chair bound status, chronic dyspnea on exertion, morbidly obese with chronic diffuse musculoskeletal pain. Very sedentary lifestyle. Noncompliant with CPAP, medications in the past. Depende nt on caregivers to allow her to live independently at home. All other review of systems unable to) Prior Level of Functionality: has 3-4 caregivers that provide daily care in the mornings and evenings. The first family day care worker stays for about 5 hours to assist patient with getting ready for the day and that she is set up. The patient is never home alone for more than 5-6 hours a day. Patient has an evening family day care worker that stays over night Thursday, Thursday, , and Thursday. Her friend Adriana Snyder [phone] provides additional support where needed. She is known to be forgetful, to hallucinate occasionally. Her friend and neighbor is Adriana. Adriana is willing to provide transportation for patient home. She feels confident providing assistance with transfers. In the past, line up worker provided information for lift assist and encouraged Adriana to utilize it as resource. When she was discharged in January 2022 she was discharged to home health. Home health saw her from January 16 through January 28. Physical therapy and reached maximum potential due to limitations which included pain, lack of motivation, lack of compliance to therapy. She does not do the exercises that were described to her for her to do in between sessions. She requires a standby assist for chair to recliner transfer with a four-wheel walker. She sleeps in a recliner chair. She is a standby assist for toilet transfers, two-person assist for bathing. Exam - Vital Signs Reviewed Vital Signs: Yes Vital Signs: Vital Signs x48h Temp Pulse Resp BP Pulse Ox O2 Flow Rate 06/02/22 17:10 64 26 H 199/140 H 95 4 06/02/22 16:15 97.6 C H 62 20 160/143 H 97 - Physical Exam General Appearance: positive: No acute distress (Super obese lady at 5 foot 7, 152 kg), Other (Sitting up in ER gurney. Struggling with trying to figure out how her nasal cannula works. NC pulled off. Speech is truncated, garbled, not making any sense. But she does follow my commands. I tell her I am going to call her neighbor Adriana she grabs my hand, vigorously shakes it and say "yes!") Eyes Bilateral: positive: PERRL, EOMI ENT: positive: No signs of dehydration Neck: positive: Other (Cannot assess JVD due to neck girth). negative: Stiff neck Respiratory: positive: No respiratory distress, Other (Quiet air excursion. Di minished diffusely. But no wheezing, no respiratory distress, no rhonchi, no cough) Cardiovascular: positive: Regular rate & rhythm Abdomen: positive: Other (Huge, obese pannus. Really cannot assess for organomegaly. Bowel sounds are distant, but present. No tenderness.) Skin: positive: Warm, Dry, Pallor Extremities: positive: Full ROM, Pedal edema (That is 2-3+ below the knee, becomes 2+ at the thigh, 1+ at her buttock), Other (Splayed legs, externally rotated at the hip.) Neurologic/Psychiatric: positive: CN's nml (2-12), Slurred/abnml speech (Truncated, garbled, not making sense). negative: Motor nml (She does not have focal deficits. She follows commands and lifts her arms and her legs when I asked her to. But the impression I get is severe said entry status with severe generalized muscle deconditioning and her weight is against her) Conclusion/Plan - Problem List (1) Altered mental status Conclusion/Plan: May be multifactorial. I do not know if she is compliant with her medications but she is definitely hyponatremic and this is a new problem from just 2 weeks ago. This is also a morbidly obese lady that is supposed to be on a sleep mask, and her CO2 levels on serum testing are erratic. In her past history she has never had problems with substance abuse, opioid abuse, or benzodiazepine abuse. She is on Elavil, Cymbalta, Lyrica, methocarbamol, and hydrocodone. So the etiology of her altered mental status could be drug reaction, metabolic, or respiratory. I am not seeing any evidence of infection with fever or elevated white cell count. In the past her strap cutter has suggested that some of her sleepiness and lack of response was the Cymbalta and Lyrica. But she really did not want to stop those medications. Over the last few days, her neighbor sug gest that the patient may be too confused to have been taking her medication correctly. Plan: Observation status Start to correct the sodium with normal saline at a very slow rate Check ABG for her PCO2 level Give Narcan and see what happens Until she is a little bit more alert, and not with garbled speech, I will hold off on giving her her Cymbalta, Lyrica, and opioids. Qualifiers: Altered mental status type: somnolence Qualified Code(s): R40.0 - Somnolence (2) Hyponatremia Conclusion/Plan: I doubt water intoxication. This woman is never had that problem before. She may have a problem with her use of Lasix. But she if she has been forgetful with it. Plan: Spot urine sodium, I will order serum and urine osmolality but they never come back in time Start normal saline at 75 cc an hour. Check sodium every 6 hours. Aim for slow correction. No more than 6 mEq in a 12-hour period (3) Pickwickian syndrome Conclusion/Plan: By history with snoring and apnea. Will monitor on MedSurg. If she does have severe apnea, I may need to transfer her to the unit for CPAP. I will be ordering an ABG, but I am going off service tonight. I do not know of telemedicine will really have the wherewithal to transfer this patient to the unit. This may have to wait till tomorrow morning. There is also the logistics of trying to get her diagnosed with pulmonology or sleep lab. She will need a bariatric bed if she spends the night somewhere. I think [place] is the only place that has a bariatric bed for sleep lab. She has been referred to pulmonology and her friend Adriana will be getting a van/wheelchair van to get her in that to then go see the lens blocker. (4) Hypertension Conclusion/Plan: Not taking her meds at home today. Her med list has her on Coreg, Lasix, and losartan. These are usually medications we use in congestive heart failure. This woman does not have congestive heart failure so I will be resuming losartan, adding metoprolol, considering Norvasc if her edema is not too bad. Qualifiers: Hypertension type: primary hypertension Qualified Code(s): I10 - Essential (primary) hypertension (5) Chronic pain Conclusion/Plan: On intermittent opioid therapy. No long-acting therapy. I Mona be giving her Narcan just to make sure that some of her sedation is not due to an accidental opioid overuse. Once I make sure that is not a problem, I will resume her usual home med of Lyrica and Percocet. Qualifiers: Chronic pain type: chronic pain syndrome Qualified Code(s): G89.4 - Chronic pain syndrome (6) Mobility impaired Conclusion/Plan: Due to muscle deconditioning, weight, and lack of ambition on the patient's part sometimes. Adriana is wondering if she could get physical therapy and Occupational Therapy. I will definitely order that for this unfortunate patient. However I explained that the patient herself needs to be enthusiastic about it. If I remember this patient correctly, more often than not she would refuse PT services and states she did not want to do it that day. Nevertheless, I will reorder for this visit - Lab Results Lab results reviewed: Yes Jf Bones: 06/02/22 16:31 06/02/22 16:31 - Diagnostic Imaging Results Diagnostic Imaging Results: positive: Final report reviewed Core Measures - Anticipated LOS I expect patient to be DC'd or transferred within 96 hours.: Yes - DVT/VTE - Prophylaxis VTE/DVT Prophylaxis med ordered at admit?: Yes
[2022-06-02] MEDS ORDERED: NALOXONE 0.4 MG/ML VIAL IVP STA (17:38)
--- NOTE | 2022-06-02 17:54 | PHARMACY PROGRESS NOTE ---
- Best Possible Medication History Admit Date and Time: Processed by: Pharmacy Medication History completed: Yes Patient Interview: Pt unable to participate Secondary Source(s): Physician records, Pharmacy records, Insurance records As the person ultimately responsible for medication therapy, providers are able to order a medication from an existing home medication list in [facility] via the "Reconcile Routine" prior to Confirmation of that medication by production support manager. Such practice is discouraged except when the physician, in their clinical judgment, deems that a medical need exists for a medication without regard to previous use.
[2022-06-02] MEDS ORDERED: cefTRIAXone 1 GM in SODIUM CHLORIDE 0.9% MINIBAG 100 ML IV STA (18:16)
[2022-06-02] MEDS: METOPROLOL TARTRATE 50 MG TABLET PO SCH (20:35)
[2022-06-02] MEDS: LOSARTAN 50 MG TABLET PO SCH (20:39)
[2022-06-02] MEDS: SODIUM CHLORIDE 0.9% 1,000 ML IV SCH (20:40)
[2022-06-02 23:48] LABS: CALCIUM 9.1 mg/dL (8.5-10.3); CREATININE 0.6 mg/dL (0.4-1.0); POTASSIUM 4.9 mmol/L (3.5-5.0)
[2022-06-03] MEDS: SODIUM CHLORIDE FLUSH 0.9% 10 ML SYRINGE IVP SCH ×3 (03:09→16:57)
[2022-06-03 06:06] LABS: BASOPHILS % (AUTO) 0.1 %; EOSINOPHILS % (AUTO) 0.1 %; HCT - HEMATOCRIT 38.7 % (37.0-47.0); HGB - HEMOGLOBIN 12.3 g/dL (12.0-16.0); LYMPHOCYTES # (AUTO) 0.6 10^3/uL (1.5-3.5); LYMPHOCYTES % (AUTO) 6.5 %; MEAN CORPUSCULAR HEMOGLOBIN 29.4 pg (27.0-31.0); MEAN CORPUSCULAR HGB CONC 31.8 g/dL (32.0-36.0); MEAN CORPUSCULAR VOLUME 92.6 fL (81.0-99.0); MEAN PLATELET VOLUME 10.1 fL (7.9-10.8); MONOCYTES # (AUTO) 0.6 10^3/uL (0.0-1.0); MONOCYTES % (AUTO) 5.8 %; NEUTROPHILS # (AUTO) 8.6 10^3/uL (1.5-6.6); NEUTROPHILS % (AUTO) 87.1 %; PLT - PLATELET COUNT 257 10^3/uL (130-450); RED BLOOD COUNT 4.18 10^6/uL (4.20-5.40); RED CELL DISTRIBUTION WIDTH 13.5 % (12.0-15.0); WHITE BLOOD COUNT 9.9 x10^3/uL (4.8-10.8)
[2022-06-03 06:14] LABS: CREATININE 0.6 mg/dL (0.4-1.0); POTASSIUM 4.8 mmol/L (3.5-5.0)
[2022-06-03] MEDS: METOPROLOL TARTRATE 50 MG TABLET PO SCH (08:19)
[2022-06-03] MEDS: ENOXAPARIN 40 MG/0.4 ML SYRINGE SUBQ SCH (08:20)
[2022-06-03] MEDS: LOSARTAN 50 MG TABLET PO SCH (08:20)
[2022-06-03] MEDS: SODIUM CHLORIDE 0.9% 1,000 ML IV SCH (08:38)
[2022-06-03 09:43] LABS: ABG BASE EXCESS 7.9 mmol/L (-2.0-3.0); ABG HCO3 35.8 mmol/L (22.0-26.0); ABG PH 7.34 (7.35-7.45); ABG PO2 80 mmHg (80-100); ABG TCO2 37.8 MMOL/L (21.0-29.0)
[2022-06-03 09:44] LABS: ABG OXYGEN SATURATION 95 % (94-98); ALLEN TEST POSITIVE
[2022-06-03 09:47] LABS: ABG PCO2 67 mmHg (34-45)
[2022-06-03] MEDS ORDERED: LOSARTAN 50 MG TABLET PO SCH (10:54)
[2022-06-03] MEDS ORDERED: NON FORMULARY MED (Losartan Potassium [Cozaar] 100 MG Tablet) PO SCH (11:00)
[2022-06-03] MEDS ORDERED: LOSARTAN 50 MG TABLET PO ONE (11:00)
[2022-06-03 11:44] LABS: CREATININE 0.6 mg/dL (0.4-1.0); POTASSIUM 4.5 mmol/L (3.5-5.0)
--- NOTE | 2022-06-03 15:11 | PROVIDER PROGRESS NOTE ---
Assessment/Plan - Problem List (1) Altered mental status Qualifiers: Altered mental status type: somnolence Qualified Code(s): R40.0 - Somnolence Assessment/Plan: Probably multifactorial. She is definitely hyponatremic and this is a new problem from just 2 weeks ago. This is also a morbidly obese lady that is supposed to be on a sleep CPAP mask, and her CO2 levels on serum testing are erratic. In her past history she has never had problems with substance abuse, opioid abuse, or benzodiazepine abuse. She is on Elavil, Cymbalta, Lyrica, met hocarbamol, and hydrocodone. So the etiology of her altered mental status could be drug reaction, metabolic, or respiratory. There does not appear to be evidence of infection, with no fever or elevated white cell count. In the past her graphic design manager has suggested that some of her sleepiness and lack of response could be from the Cymbalta and Lyrica. But she really did not want to stop those medications. Over the last few days, her neighbor suggest that the patient may be too confused to have been taking her medication correctly. We are correcting the sodium with normal saline at a very slow rate Until she is a little bit more alert, and not with garbled speech, we will hold off on grestarting her her Cymbalta, Lyrica, and opioids. (2) Hyponatremia Conclusion/Plan: We doubt water intoxication, as this woman is never had that problem before. She may have a problem with her use of Lasix, as in forgetful with it Spot urine sodium to be checked and will order serum and urine osmolality Started her on normal saline at 75 cc an hour. Check sodium every 6 hours. Aim for slow correction. No more than 6 mEq in a 12-hour period (3) Pickwickian syndrome Conclusion/Plan: By history with snoring and apnea. Will monitor on MedSurg. If she does have severe apnea, I may need to transfer her to the unit for CPAP. Her ABG does show compensated respiratory acidosis with a PCO2 in the 60s There is also the logistics of trying to get her diagnosed with pulmonology or sleep lab. She will need a bariatric bed if she spends the night somewhere. I think [facility] is the only place that has a bariatric bed for sleep lab. She has been referred to pulmonology and her friend Adriana will be getting a van/wheelchair van to get her in that to then go see the web database developer. (4) Hypertension Conclusion/Plan: Her med list has her on Coreg, Lasix, and losartan. Qualifiers: Hypertension type: primary hypertension Qualified Code(s): I10 - Essential (primary) hypertension (5) Chronic pain Conclusion/Plan: On intermittent opioid therapy. No long-acting therapy. May restart her home med of Lyrica and Percocet. Qualifiers: Chronic pain type: chronic pain syndrome Qualified Code(s): G89.4 - Chronic pain syndrome (6) Mobility impaired Conclusion/Plan: Due to muscle deconditioning, weight, and lack of ambition on the patient's part sometimes. Adriana is wondering if she could get physical therapy and Occupational Therapy. PT and PT will definitely be ordered for this patient. However the patient herself needs to be enthusiastic about it, and in the past she would refuse PT services and stated she did not want to do it that day. (7) Morbid Obesity, BMI 50-55 As per Hx - Current Meds Current Meds: Current Medications Generic Name Dose Route Start Last Admin Trade Name Freq PRN Reason Stop Dose Admin Enoxaparin Sodium 40 mg 06/03/22 09:00 06/03/22 08:20 Enoxaparin 40 Mg/0.4 Ml Syringe SUBQ 40 mg DAILY TAI Administration Sodium Chloride 1,000 mls @ 75 mls/hr 06/02/22 18:00 06/03/22 08:38 Normal Saline 0.9% IV 06/03/22 20:39 75 mls/hr .[id number] TAI Administration Sodium Chloride 10 ml 06/03/22 01:00 06/03/22 10:42 Sodium Chloride Flush 0.9% 10 Ml Syringe IVP Not Given 0100,0900,1700 TAI - Lab Result Fish Bone Diagrams: 06/03/22 05:55 06/03/22 11:00 - Additional Planning My Orders: My Active Orders 06/03/22 00:01 SODIUM, URINE [UC] Urgent 06/03/22 09:02 Home CPAP/BiPAP [RC] .ONCE 06/03/22 21:00 Amitriptyline [Elavil] 50 mg PO QPM Atorvastatin [Lipitor] 20 mg PO QPM carvediloL [Coreg] 12.5 mg PO BID 06/04/22 09:00 Aspirin EC [Ecotrin] 81 mg PO DAILY Subjective - Subjective Patient Reports: Other (Sleeping in a recliner, awakens answers with 1 word and falls back asleep.) Nursing Reports: Other (She was reluctant to be seen by PT and OT today) Objective Vital Signs: Vital Signs - 24 hr 06/02/22 06/02/22 06/02/22 16:15 17:10 19:00 Temperature 97.6 C H Heart Rate 62 64 63 Heart Rate [ Monitoring electrodes] Heart Rate [ Sitting] Heart Rate [ Supine] Respiratory 20 26 H 20 Rate Blood Pressure 160/143 H 199/140 H 186/142 H Blood Pressure [Left Brachial artery] Blood Pressure [Sitting] Blood Pressure [Supine] O2 Saturation 97 95 98 O2 Saturation [ With Activity] O2 Saturation [ Without Activity] If not protocol 4 3 : Oxygen Flow, liters/minute 06/02/22 06/02/22 06/03/22 20:10 20:35 00:00 Temperature 36.9 C Heart Rate Heart Rate [ 75 Monitoring electrodes] Heart Rate [ Sitting] Heart Rate [ Supine] Respiratory 20 Rate Blood Pressure 163/107 H Blood Pressure 181/88 H [Left Brachial artery] Blood Pressure [Sitting] Blood Pressure [Supine] O2 Saturation 95 O2 Saturation [ With Activity] O2 Saturation [ Without Activity] If not protocol 3 3 : Oxygen Flow, liters/minute 06/03/22 06/03/22 06/03/22 05:46 07:35 08:19 Temperature 36.4 C L 37.2 C Heart Rate Heart Rate [ 60 56 L Monitoring electrodes] Heart Rate [ Sitting] Heart Rate [ Supine] Respiratory 18 20 Rate Blood Pressure 169/95 H Blood Pressure 169/95 H 153/104 H [Left Brachial artery] Blood Pressure [Sitting] Blood Pressure [Supine] O2 Saturation 94 96 O2 Saturation [ With Activity] O2 Saturation [ Without Activity] If not protocol 3 3 : Oxygen Flow, liters/minute 06/03/22 06/03/22 10:05 11:30 Temperature 36.6 C Heart Rate Heart Rate [ 69 Monitoring electrodes] Heart Rate [ 82 Sitting] Heart Rate [ 71 Supine] Respiratory 20 Rate Blood Pressure Blood Pressure 145/74 H [Left Brachial artery] Blood Pressure 154/100 H [Sitting] Blood Pressure 168/136 H [Supine] O2 Saturation 94 O2 Saturation [ 96 With Activity] O2 Saturation [ 100 Without Activity] If not protocol 3 : Oxygen Flow, liters/minute Oxygen O2 Source [Without Activity] nasal canule 3LO2 O2 Source [With Activity] Nasal canule 3L O2 O2 Source Nasal cannula I&O (Last 24 Hrs): Intake and Output Totals x24h 06/01/22 06/02/22 06/03/22 23:59 23:59 23:59 Intake Total 100 1357.5 Output Total 100 200 Balance 0 1157.5 General: Other (Lethargc, hypersomnolent) HEENT: Other Neck: Other (Cannot eval JVP due to morbid obesity) Cardiovascular: No murmurs, Other (distant heart sounds) Respiratory: No respiratory distress, Breath sounds nml (anteriorly) Abdomen: Soft, Other (Obese with a very large pannus, cannot eval organs) Extremities: Other (4+ edema to thighs) - Results Results: Laboratory Results WBC 9.9 x10^3/uL (4.8-10.8) 06/03/22 05:55 RBC 4.18 10^6/uL (4.20-5.40) L 06/03/22 05:55 Hgb 12.3 g/dL (12.0-16.0) 06/03/22 05:55 Hct 38.7 % (37.0-47.0) 06/03/22 05:55 MCV 92.6 fL (81.0-99.0) 06/03/22 05:55 MCH 29.4 pg (27.0-31.0) 06/03/22 05:55 MCHC 31.8 g/dL (32.0-36.0) L 06/03/22 05:55 RDW 13.5 % (12.0-15.0) 06/03/22 05:55 Plt Count 257 10^3/uL (130-450) 06/03/22 05:55 MPV 10.1 fL (7.9-10.8) 06/03/22 05:55 Neut # (Auto) 8.6 10^3/uL (1.5-6.6) H 06/03/22 05:55 Lymph # (Auto) 0.6 10^3/uL (1.5-3.5) L 06/03/22 05:55 Lynn # (Auto) 0.6 10^3/uL (0.0-1.0) 06/03/22 05:55 Eos # (Auto) 0.0 10^3/uL (0.0-0.7) 06/03/22 05:55 Baso # (Auto) 0.0 10^3/uL (0.0-0.1) 06/03/22 05:55 Absolute Nucleated RBC 0.00 x10^3/uL 06/03/22 05:55 Nucleated RBC % 0.0 /100WBC 06/03/22 05:55 Bld Gas Analysis Time 0943 06/03/22 09:30 Sample Site LEFT RADIAL 06/03/22 09:30 ABG pH 7.34 (7.35-7.45) L 06/03/22 09:30 ABG pCO2 67 mmHg (34-45) H* 06/03/22 09:30 ABG pO2 80 mmHg (80-100) 06/03/22 09:30 ABG HCO3 35.8 mmol/L (22.0-26.0) H 06/03/22 09:30 ABG Total CO2 37.8 MMOL/L (21.0-29.0) H 06/03/22 09:30 ABG O2 Saturation 95 % (94-98) 06/03/22 09:30 ABG Base Excess 7.9 mmol/L (-2.0-3.0) H 06/03/22 09:30 Lester Test POSITIVE 06/03/22 09:30 O2 Delivery Device NASAL CANNULA 06/03/22 09:30 O2 Liters/Min 3.00 LPM 06/03/22 09:30 Sodium 120 mmol/L (135-145) L* 06/03/22 11:00 Potassium 4.5 mmol/L (3.5-5.0) 06/03/22 11:00 Chloride 75 mmol/L (101-111) L* 06/03/22 11:00 Carbon Dioxide 36 mmol/L (21-32) H 06/03/22 11:00 Anion Gap 9.0 (6-13) 06/03/22 11:00 BUN 16 mg/dL (6-20) 06/03/22 11:00 Creatinine 0.6 mg/dL (0.4-1.0) 06/03/22 11:00 Estimated GFR (MDRD) 96 (>89) 06/03/22 11:00 Glucose 118 mg/dL (70-100) H 06/03/22 11:00 Calcium 9.0 mg/dL (8.5-10.3) 06/03/22 11:00 Total Bilirubin 0.7 mg/dL (0.2-1.0) 06/02/22 16:31 AST 14 IU/L (10-42) 06/02/22 16:31 ALT 16 IU/L (10-60) 06/02/22 16:31 Alkaline Phosphatase 92 IU/L (42-121) 06/02/22 16:31 Total Protein 6.8 g/dL (6.7-8.2) 06/02/22 16:31 Albumin 3.8 g/dL (3.2-5.5) 06/02/22 16:31 Globulin 3.0 g/dL (2.1-4.2) 06/02/22 16:31 Albumin/Globulin Ratio 1.3 (1.0-2.2) 06/02/22 16:31 Lipase 26 U/L (22-51) 06/02/22 16:31 Urine Color YELLOW 06/02/22 16:45 Urine Clarity HAZY (CLEAR) 06/02/22 16:45 Urine pH 7.5 PH (5.0-7.5) 06/02/22 16:45 Ur Specific Thatcher 1.015 (1.002-1.030) 06/02/22 16:45 Urine Protein 30 mg/dL (NEGATIVE) H 06/02/22 16:45 Urine Glucose (UA) NEGATIVE mg/dL (NEGATIVE) 06/02/22 16:45 Urine Ketones TRACE mg/dL (NEGATIVE) 06/02/22 16:45 Urine Occult Blood SMALL (NEGATIVE) H 06/02/22 16:45 Urine Nitrite NEGATIVE (NEGATIVE) 06/02/22 16:45 Urine Bilirubin NEGATIVE (NEGATIVE) 06/02/22 16:45 Urine Urobilinogen 1 (NORMAL) E.U./dL (NORMAL) 06/02/22 16:45 Ur Leukocyte Esterase TRACE (NEGATIVE) H 06/02/22 16:45 Urine RBC 6-10 /HPF (0-5) H 06/02/22 16:45 Urine WBC 11-25 /HPF (0-5) H 06/02/22 16:45 Ur Squamous Epith Cells FEW Squamous (<= Few) 06/02/22 16:45 Urine Bacteria Moderate /HPF (None Seen) H 06/02/22 16:45 Ur Microscopic Review INDICATED 06/02/22 16:45 Urine Culture Comments INDICATED 06/02/22 16:45 SARS-CoV-2 (PCR) NOT DETECTED 06/02/22 18:00 - Procedures Procedures: Procedures CATARAC PHACOEMULS/ASPIR (04/27/14) INSERT LENS AT CATAR EXT (04/27/14) REPLACEMENT OF LEFT LENS WITH SYNTH SUB, PERC APPROACH (09/25/16)
[2022-06-03 17:39] LABS: CALCIUM 8.7 mg/dL (8.5-10.3); CREATININE 0.6 mg/dL (0.4-1.0); POTASSIUM 4.7 mmol/L (3.5-5.0)
[2022-06-03] MEDS ORDERED: ATORVASTATIN 10 MG TABLET PO SCH (21:00)
[2022-06-03] MEDS ORDERED: AMITRIPTYLINE 25 MG TABLET PO SCH (21:00)
[2022-06-03] MEDS: carvediloL 12.5 MG TABLET PO SCH (21:22)
[2022-06-03 23:55] LABS: CALCIUM 8.6 mg/dL (8.5-10.3); CREATININE 0.6 mg/dL (0.4-1.0); POTASSIUM 4.5 mmol/L (3.5-5.0)
[2022-06-04] MEDS: SODIUM CHLORIDE FLUSH 0.9% 10 ML SYRINGE IVP SCH ×3 (01:05→18:38)
[2022-06-04 05:15] LABS: BASOPHILS % (AUTO) 0.1 %; EOSINOPHILS % (AUTO) 0.4 %; HGB - HEMOGLOBIN 10.8 g/dL (12.0-16.0); LYMPHOCYTES # (AUTO) 0.6 10^3/uL (1.5-3.5); LYMPHOCYTES % (AUTO) 6.9 %; MEAN CORPUSCULAR HEMOGLOBIN 29.3 pg (27.0-31.0); MEAN CORPUSCULAR HGB CONC 30.9 g/dL (32.0-36.0); MEAN CORPUSCULAR VOLUME 94.9 fL (81.0-99.0); MEAN PLATELET VOLUME 10.8 fL (7.9-10.8); MONOCYTES # (AUTO) 0.8 10^3/uL (0.0-1.0); MONOCYTES % (AUTO) 8.9 %; NEUTROPHILS # (AUTO) 7.1 10^3/uL (1.5-6.6); NEUTROPHILS % (AUTO) 83.2 %; PLT - PLATELET COUNT 219 10^3/uL (130-450); RED BLOOD COUNT 3.69 10^6/uL (4.20-5.40); RED CELL DISTRIBUTION WIDTH 13.8 % (12.0-15.0); WHITE BLOOD COUNT 8.6 x10^3/uL (4.8-10.8)
[2022-06-04 08:39] LABS: CALCIUM 8.7 mg/dL (8.5-10.3); CREATININE 0.6 mg/dL (0.4-1.0); POTASSIUM 4.7 mmol/L (3.5-5.0)
[2022-06-04] MEDS: ASPIRIN EC 81 MG TABLET PO SCH (08:53)
[2022-06-04] MEDS: carvediloL 12.5 MG TABLET PO SCH (08:53)
[2022-06-04] MEDS: ENOXAPARIN 40 MG/0.4 ML SYRINGE SUBQ SCH (08:54)
[2022-06-04] MEDS ORDERED: FUROSEMIDE 40 MG TABLET PO SCH (09:00)
[2022-06-04] MEDS ORDERED: cephALEXin 250 MG CAPSULE PO SCH (09:00)
[2022-06-04] MEDS ORDERED: SODIUM CHLORIDE 0.9% 1,000 ML IV SCH ×2 (09:00→12:12)
[2022-06-04 11:16] LABS: ABG HCO3 40.7 mmol/L (22.0-26.0); ABG PH 7.27 (7.35-7.45); ABG PO2 143 mmHg (80-100)
[2022-06-04 11:17] LABS: ABG OXYGEN SATURATION 99 % (94-98); ALLEN TEST POSITIVE
[2022-06-04 11:19] LABS: ABG PCO2 90 mmHg (34-45)
--- NOTE | 2022-06-04 11:34 | PROVIDER PROGRESS NOTE ---
Subjective - Subjective Pt reports feeling: Worse Objective - Vital Signs/Intake & Output Reviewed Vital Signs: Yes Vital Signs: Vital Signs Temp Pulse Resp BP Pulse Ox O2 Flow Rate 06/04/22 08:24 36.7 C 86 20 126/59 L 99 3 06/04/22 08:00 3 Intake & Output: Intake & Output 06/01/22 06/02/22 06/03/22 06/04/22 23:59 23:59 23:59 23:59 Intake Total 100 2567.5 250 Output Total 100 800 150 Balance 0 1767.5 100 - Objective General Appearance: positive: Lethargic, Other (Arouses to name for a second, then falls asleep, audible snoring. Obese WF.) Eyes Bilateral: positive: No lid inflammation ENT: positive: No signs of dehydration Neck: positive: Other (Cannot eval JVP due to obese neck) Respiratory: positive: No respiratory distress, Breath sounds nml Cardiovascular: positive: No murmur (Distant heart sounds due to obesity) Abdomen: positive: Non-tender, Other (Obese with a very large pannus) Skin: positive: Warm, Dry Extremities: positive: Non-tender, Other (3+ edema to thighs) Neurologic/Psychiatric: positive: Other (Somnolent, arouses for a second only, then falls asleep. Was able to swallow bites only.) - Lab Results Fish Bones: 06/05/22 04:50 06/05/22 04:50 Other Labs: Lab Results x24hrs 06/04/22 06/04/22 06/04/22 Range/Units 11:00 05:36 04:36 WBC 8.6 (4.8-10.8) x10^3/uL RBC 3.69 L (4.20-5.40) 10^6/uL Hgb 10.8 L (12.0-16.0) g/dL Hct 35.0 L (37.0-47.0) % MCV 94.9 (81.0-99.0) fL MCH 29.3 (27.0-31.0) pg MCHC 30.9 L (32.0-36.0) g/dL RDW 13.8 (12.0-15.0) % Plt Count 219 (130-450) 10^3/uL MPV 10.8 (7.9-10.8) fL Neut # (Auto) 7.1 H (1.5-6.6) 10^3/uL Lymph # (Auto) 0.6 L (1.5-3.5) 10^3/uL Jenkins # (Auto) 0.8 (0.0-1.0) 10^3/uL Eos # (Auto) 0.0 (0.0-0.7) 10^3/uL Baso # (Auto) 0.0 (0.0-0.1) 10^3/uL Absolute Nucleated RBC 0.00 x10^3/uL Nucleated RBC % 0.0 /100WBC Bld Gas Analysis Time 11:15 Sample Site LEFT RADIAL ABG pH 7.27 L (7.35-7.45) ABG pCO2 90 H* (34-45) mmHg ABG pO2 143 H (80-100) mmHg ABG HCO3 40.7 H (22.0-26.0) mmol/L ABG Total CO2 43.0 H* (21.0-29.0) MMOL/L ABG O2 Saturation 99 H (94-98) % ABG Base Excess 14.0 H (-2.0-3.0) mmol/L Lester Test POSITIVE O2 Delivery Device NASAL CANNULA O2 Liters/Min 3.00 LPM Sodium 119 L* (135-145) mmol/L Potassium 4.7 (3.5-5.0) mmol/L Chloride 78 L* (101-111) mmol/L Carbon Dioxide 36 H (21-32) mmol/L Anion Gap 5.0 L (6-13) BUN 18 (6-20) mg/dL Creatinine 0.6 (0.4-1.0) mg/dL Estimated GFR (MDRD) 96 (>89) Glucose 113 H (70-100) mg/dL Calcium 8.7 (8.5-10.3) mg/dL 06/03/22 06/03/22 06/03/22 Range/Units 23:19 17:23 11:00 WBC (4.8-10.8) x10^3/uL RBC (4.20-5.40) 10^6/uL Hgb (12.0-16.0) g/dL Hct (37.0-47.0) % MCV (81.0-99.0) fL MCH (27.0-31.0) pg MCHC (32.0-36.0) g/dL RDW (12.0-15.0) % Plt Count (130-450) 10^3/uL MPV (7.9-10.8) fL Neut # (Auto) (1.5-6.6) 10^3/uL Lymph # (Auto) (1.5-3.5) 10^3/uL Jenkins # (Auto) (0.0-1.0) 10^3/uL Eos # (Auto) (0.0-0.7) 10^3/uL Baso # (Auto) (0.0-0.1) 10^3/uL Absolute Nucleated RBC x10^3/uL Nucleated RBC % /100WBC Bld Gas Analysis Time Sample Site ABG pH (7.35-7.45) ABG pCO2 (34-45) mmHg ABG pO2 (80-100) mmHg ABG HCO3 (22.0-26.0) mmol/L ABG Total CO2 (21.0-29.0) MMOL/L ABG O2 Saturation (94-98) % ABG Base Excess (-2.0-3.0) mmol/L Lester Test O2 Delivery Device O2 Liters/Min LPM Sodium 120 L* 120 L* 120 L* (135-145) mmol/L Potassium 4.5 4.7 4.5 (3.5-5.0) mmol/L Chloride 79 L* 78 L* 75 L* (101-111) mmol/L Carbon Dioxide 35 H 35 H 36 H (21-32) mmol/L Anion Gap 6.0 7.0 9.0 (6-13) BUN 17 17 16 (6-20) mg/dL Creatinine 0.6 0.6 0.6 (0.4-1.0) mg/dL Estimated GFR (MDRD) 96 96 96 (>89) Glucose 141 H 142 H 118 H (70-100) mg/dL Calcium 8.6 8.7 9.0 (8.5-10.3) mg/dL Assessment/Plan - Problem List (1) Altered mental status Impression: Probably multifactorial. Could be from hyponatremia. In her past history she has never had problems with substance abuse, opioid abuse, or benzodiazepine abuse. It could be from infection since the urine is growing Klebsiella oxytoca, except she has no fever or elevated white cell count. Some of her sleepiness could be from the Cymbalta and Lyrica. Her neighbor suggested that the patient may be too confused recently to have been taking her medication correctly. We are correcting the sodium with normal saline at a very slow rate Will give antibx for the pos urine ccx result ABG repeated today and she is CO2 retaining more Until she is more alert, and not with garbled speech, we will hold off on restarting her Cymbalta, Lyrica, and opioids. (2) CO2 narcosis Conclusion/Plan: Because of worsening somnolence a blood gas was done today and it showed pH 7.26 PCO2 89 PO2 143 with saturation 99%. We learned that she is on continuous Home O2 at 2L/min, not 3L/min and has never been on a CPAP machine. Patient will be transferred to the ICU today for BiPAP treatment. Follow ABG. 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 This device will also reduce hospital readmissions. I am ordering a home BIPAP unit. (3) Hyponatremia Conclusion/Plan: We doubt water intoxication, as this woman is never had that problem before. She may have had a problem with her use of Lasix, being forgetful with it. Spot urine sodium ordered to be checked and serum and urine osmolality ordered, the results are still pending We have given her normal saline ordered by the Liter bag. Checking sodium every 6 hours. Aiming for slow correction;target is no more than 6 mEq in a 12-hour period. Today we will add a loop diuretic and confirm/order that she is on a free water restriction (600 cc/day of water). This combination will hopefully improve her serum Na more. (4) Pulmonary edema Conclusion/Plan: A chest x-ray was ordered today, because she is being moved to the ICU and because she has positive fluid balance and a history of chronic leg edema. This chest x-ray was read as having interstitial edema. Will order Lasix iv (5) Pickwickian syndrome Conclusion/Plan: By history with snoring and apnea, we strongly suspect she has obesity hypoventilation syndrome. Today our DC RN called one of her caregiver providers who corroborated that the patient never has had a CPAP machine at home, just Home O2. There will be the logistics of trying to get her diagnosed with pulmonology or sleep lab. She will need a bariatric bed if she spends the night somewhere. I think [facility] is the only place that has a bariatric bed for sleep lab. She has been referred to pulmonology and her friend Adriana will be getting a van/wheelchair van to get her in that to then go see the peoplesoft crm developer. (6) UTI The urine is growing Klebsiella oxytoca, but she has had no fever or elevated white cell count. Given that her altered mental status is worse today than at admission, even despite some improvement in her serum sodium, we will presume that her mentation is altered from a UTI as well, and start an antibx: will give Keflex 500mg 4 times daily for a 5-day course. (7) Hypertension Conclusion/Plan: Her med list has her on Coreg, Lasix, and losartan, which will continue for HTN treatment. Qualifiers: Hypertension type: primary hypertension Qualified Code(s): I10 - Essential (primary) hypertension (8) Chronic pain Conclusion/Plan: On intermittent opioid therapy. No long-acting therapy. May restart her home med of Lyrica and Percocet. Qualifiers: Chronic pain type: chronic pain syndrome Qualified Code(s): G89.4 - Chronic pain syndrome (9) Mobility impaired Conclusion/Plan: Due to muscle deconditioning, weight, and lack of ambition on the patient's part sometimes. Adriana is wondering if she could get physical therapy and Occupational Therapy. PT and PT will definitely be ordered for this patient. However the patient herself needs to be enthusiastic about it, and in the past she would refuse PT services and stated she did not want to do it that day. (10) Morbid Obesity, BMI 50-59 As per Hx Qualifiers: Altered mental status type: somnolence Qualified Code(s): R40.0 - Somnolence
--- NOTE | 2022-06-04 11:54 | XRAY Report ---
PROCEDURE: Chest 1 View X-Ray INDICATIONS: Hypopnea TECHNIQUE: One view of the chest was acquired. COMPARISON: 04/03/2022 FINDINGS: Cardiomegaly with findings of cephalization of pulmonary vessels and diffusely increased interstitial markings in both lungs. Lung bases are excluded including the left costophrenic angle. There is trac e right costophrenic angle blunting. No pneumothorax. IMPRESSION: Cardiomegaly with moderate interstitial edema and trace right pleural effusion. No definite left pleu ral effusion, although the inferior most left lung base is excluded. Reviewed by: Brendon Price MD on 06/04/2022 11:53 AM PDT Approved by: Brendon Price MD on 06/04/2022 11:53 AM PDT Station ID: [id number]
[2022-06-04 12:34] LABS: ABG HCO3 34.4 mmol/L (22.0-26.0); ABG PH 7.34 (7.35-7.45); ABG PO2 103 mmHg (80-100); ABG TCO2 36.4 MMOL/L (21.0-29.0)
[2022-06-04 12:35] LABS: ABG BASE EXCESS 6.8 mmol/L (-2.0-3.0); ABG OXYGEN SATURATION 97 % (94-98); ABG RESPIRATORY RATE 16 b/min; ALLEN TEST POSITIVE
[2022-06-04 12:37] LABS: ABG PCO2 65 mmHg (34-45)
[2022-06-04] MEDS ORDERED: FUROSEMIDE 20 MG/2 ML VIAL IVP SCH (14:00)
--- NOTE | 2022-06-04 14:01 | ANESTHESIA PROCEDURE NOTE ---
Anesth Central Line Template - Central Line Central Line Preparation: Unable to obtain consent, Time out completed, Ultra sound used, Sterile prep and drape Central line location: Right IJ Central line type: Triple lumen Central line catheter tip site resides: Superior vena cava (SVC) Central line aftercare: Chlorhexidine disc placed, Secured, Placement confirmed, No pneumothorax, No complications, Bundle checklist complete, Pt tolerated well, Other Other Info/Details: 20 cm sutured at 18. caps aspirate and easilt flush x3. PCR shows tip at cavo atria jxn. May use CVL.
--- NOTE | 2022-06-04 14:23 | XRAY Report ---
PROCEDURE: Chest for Line Placement INDICATIONS: Central line placement TECHNIQUE: One view of the chest was acquired. COMPARISON: 06/04/2022 FINDINGS: Right IJ central line terminates in the mid segment of the SVC. Cardiomegaly and pulmonary edema rede monstrated. Small left pleural effusion suspected. No pneumothorax. IMPRESSION: Right IJ central line terminates in the SVC. Reviewed by: Brendon Price MD on 06/04/2022 2:22 PM PDT Approved by: Brendon Price MD on 06/04/2022 2:22 PM PDT Station ID: [id number]
[2022-06-04] MEDS: SODIUM CHLORIDE 0.9% 1,000 ML IV SCH ×2 (15:08→22:53)
[2022-06-04] MEDS: cefTRIAXone 1 GM in SODIUM CHLORIDE 0.9% MINIBAG 100 ML IV SCH (15:08)
[2022-06-04 15:09] LABS: OSMOLALITY 254 mOsmol/kg (280-301); OSMOLALITY URINE 626 mOsmol/kg (.)
[2022-06-04] MEDS: FAMOTIDINE 20 MG/2 ML VIAL IVP SCH (20:16)
[2022-06-04] MEDS: ACETAMINOPHEN 1,000 MG/100 ML 1,000 MG/100 ML BAG IV PRN (20:17)
[2022-06-05] MEDS ORDERED: MORPHINE 2 MG/ML CARPUJECT IVP STA (00:24)
[2022-06-05] MEDS: SODIUM CHLORIDE FLUSH 0.9% 10 ML SYRINGE IVP SCH ×3 (00:34→17:56)
[2022-06-05] MEDS: ACETAMINOPHEN 1,000 MG/100 ML 1,000 MG/100 ML BAG IV PRN ×2 (02:48→09:05)
[2022-06-05 04:57] LABS: BASOPHILS % (AUTO) 0.2 %; EOSINOPHILS % (AUTO) 0.5 %; HCT - HEMATOCRIT 33.3 % (37.0-47.0); HGB - HEMOGLOBIN 10.5 g/dL (12.0-16.0); LYMPHOCYTES # (AUTO) 0.6 10^3/uL (1.5-3.5); LYMPHOCYTES % (AUTO) 7.4 %; MEAN CORPUSCULAR HEMOGLOBIN 29.7 pg (27.0-31.0); MEAN CORPUSCULAR HGB CONC 31.5 g/dL (32.0-36.0); MEAN CORPUSCULAR VOLUME 94.3 fL (81.0-99.0); MEAN PLATELET VOLUME 9.9 fL (7.9-10.8); MONOCYTES # (AUTO) 0.8 10^3/uL (0.0-1.0); MONOCYTES % (AUTO) 9.1 %; NEUTROPHILS # (AUTO) 6.8 10^3/uL (1.5-6.6); NEUTROPHILS % (AUTO) 82.4 %; PLT - PLATELET COUNT 173 10^3/uL (130-450); RED BLOOD COUNT 3.53 10^6/uL (4.20-5.40); RED CELL DISTRIBUTION WIDTH 13.8 % (12.0-15.0); WHITE BLOOD COUNT 8.2 x10^3/uL (4.8-10.8)
[2022-06-05 05:15] LABS: CALCIUM 8.5 mg/dL (8.5-10.3); CREATININE 0.7 mg/dL (0.4-1.0); MAGNESIUM 2.1 mg/dL (1.7-2.8); PHOSPHORUS 3.1 mg/dL (2.5-4.6); POTASSIUM 4.4 mmol/L (3.5-5.0)
[2022-06-05 07:03] LABS: ABG PH 7.41 (7.35-7.45)
[2022-06-05 07:04] LABS: ABG BASE EXCESS 10.8 mmol/L (-2.0-3.0); ABG HCO3 37.4 mmol/L (22.0-26.0); ABG OXYGEN SATURATION 97 % (94-98); ABG PO2 95 mmHg (80-100); ALLEN TEST POSITIVE
[2022-06-05 07:05] LABS: ABG PCO2 61 mmHg (34-45); ABG TCO2 39.3 MMOL/L (21.0-29.0)
--- NOTE | 2022-06-05 08:30 | PROVIDER PROGRESS NOTE ---
Subjective - Subjective Pt reports feeling: Improved (Feels better, is alert, cannot recall events surrounding admission. c/o discomfort in bed and has arthritis and fibromyalgia pain) Objective - Vital Signs/Intake & Output Vital Signs: Vital Signs Temp Pulse Pulse Resp BP Pulse Ox O2 Flow Rate 06/05/22 08:00 36.6 C 67 20 173/77 H 96 2 06/05/22 07:10 2 06/05/22 07:00 2 06/05/22 06:51 62 24 153/62 H 97 06/05/22 06:05 61 25 H 159/61 H 98 06/05/22 05:50 66 06/05/22 05:00 60 30 H 160/71 H 97 Intake & Output: Intake & Output 06/02/22 06/03/22 06/04/22 06/05/22 23:59 23:59 23:59 23:59 Intake Total 100 2567.5 2095.807 100 Output Total 527 729 4271 925 Balance 0 1767.5 225.807 -825 - Objective General Appearance: positive: Alert, Other (Has freq intermittent muscle jerks of face. Disheveled.) Eyes Bilateral: positive: Normal inspection, EOMI ENT: positive: No signs of dehydration, Other (wearring O2 per n.c.) Neck: positive: Other (Cannot eval JVP due to obese neck) Respiratory: positive: No respiratory distress, Breath sounds nml Cardiovascular: positive: No murmur (distant heart sounds) Abdomen: positive: Non-tender, Other (Obese wit pannus) Skin: positive: Warm, Dry Extremities: positive: Other (3+ edema to thighs) Neurologic/Psychiatric: positive: Oriented x3 (Non-focal) - Lab Results Fish Bones: 06/05/22 04:50 06/05/22 04:50 Other Labs: Lab Results x24hrs 06/05/22 06/05/22 06/05/22 Range/Units 06:55 04:50 04:50 WBC 8.2 (4.8-10.8) x10^3/uL RBC 3.53 L (4.20-5.40) 10^6/uL Hgb 10.5 L (12.0-16.0) g/dL Hct 33.3 L (37.0-47.0) % MCV 94.3 (81.0-99.0) fL MCH 29.7 (27.0-31.0) pg MCHC 31.5 L (32.0-36.0) g/dL RDW 13.8 (12.0-15.0) % Plt Count 173 (130-450) 10^3/uL MPV 9.9 (7.9-10.8) fL Neut # (Auto) 6.8 H (1.5-6.6) 10^3/uL Lymph # (Auto) 0.6 L (1.5-3.5) 10^3/uL [place] # (Auto) 0.8 (0.0-1.0) 10^3/uL Eos # (Auto) 0.0 (0.0-0.7) 10^3/uL Baso # (Auto) 0.0 (0.0-0.1) 10^3/uL Absolute Nucleated RBC 0.00 x10^3/uL Nucleated RBC % 0.0 /100WBC Bld Gas Analysis Time 0704 Sample Site LEFT RADIAL ABG pH 7.41 (7.35-7.45) ABG pCO2 61 H* (34-45) mmHg ABG pO2 95 (80-100) mmHg ABG HCO3 37.4 H (22.0-26.0) mmol/L ABG Total CO2 39.3 H* (21.0-29.0) MMOL/L ABG O2 Saturation 97 (94-98) % ABG Base Excess 10.8 H (-2.0-3.0) mmol/L Lester Test POSITIVE Respiration Rate b/min O2 Delivery Device BiPAP O2 Liters/Min LPM FiO2 30.00 EPAP 5 cmH2O IPAP 16 cmH2O Sodium 125 L (135-145) mmol/L Potassium 4.4 (3.5-5.0) mmol/L Chloride 81 L (101-111) mmol/L Carbon Dioxide 36 H (21-32) mmol/L Anion Gap 8.0 (6-13) BUN 15 (6-20) mg/dL Creatinine 0.7 (0.4-1.0) mg/dL Estimated GFR (MDRD) 81 L (>89) Glucose 86 (70-100) mg/dL Serum Osmolality (280-301) mOsmol/kg Calcium 8.5 (8.5-10.3) mg/dL Phosphorus 3.1 (2.5-4.6) mg/dL Magnesium 2.1 (1.7-2.8) mg/dL Urine Osmolality (.) mOsmol/kg Nasal Screen MRSA (PCR) (NEGATIVE) 06/04/22 06/04/22 06/04/22 Range/Units 14:58 12:20 11:00 WBC (4.8-10.8) x10^3/uL RBC (4.20-5.40) 10^6/uL Hgb (12.0-16.0) g/dL Hct (37.0-47.0) % MCV (81.0-99.0) fL MCH (27.0-31.0) pg MCHC (32.0-36.0) g/dL RDW (12.0-15.0) % Plt Count (130-450) 10^3/uL MPV (7.9-10.8) fL Neut # (Auto) (1.5-6.6) 10^3/uL Lymph # (Auto) (1.5-3.5) 10^3/uL [place] # (Auto) (0.0-1.0) 10^3/uL Eos # (Auto) (0.0-0.7) 10^3/uL Baso # (Auto) (0.0-0.1) 10^3/uL Absolute Nucleated RBC x10^3/uL Nucleated RBC % /100WBC Bld Gas Analysis Time 12:33 11:15 Sample Site LEFT RADIAL LEFT RADIAL ABG pH 7.34 L 7.27 L (7.35-7.45) ABG pCO2 65 H* 90 H* (34-45) mmHg ABG pO2 103 H 143 H (80-100) mmHg ABG HCO3 34.4 H 40.7 H (22.0-26.0) mmol/L ABG Total CO2 36.4 H 43.0 H* (21.0-29.0) MMOL/L ABG O2 Saturation 97 99 H (94-98) % ABG Base Excess 6.8 H 14.0 H (-2.0-3.0) mmol/L Lester Test POSITIVE POSITIVE Respiration Rate 16 b/min O2 Delivery Device BiPAP NASAL CANNULA O2 Liters/Min 3.00 LPM FiO2 35.00 EPAP 5 cmH2O IPAP 10 cmH2O Sodium (135-145) mmol/L Potassium (3.5-5.0) mmol/L Chloride (101-111) mmol/L Carbon Dioxide (21-32) mmol/L Anion Gap (6-13) BUN (6-20) mg/dL Creatinine (0.4-1.0) mg/dL Estimated GFR (MDRD) (>89) Glucose (70-100) mg/dL Serum Osmolality (280-301) mOsmol/kg Calcium (8.5-10.3) mg/dL Phosphorus (2.5-4.6) mg/dL Magnesium (1.7-2.8) mg/dL Urine Osmolality (.) mOsmol/kg Nasal Screen MRSA (PCR) NEGATIVE (NEGATIVE) 06/04/22 06/02/22 Range/Units 05:36 16:45 WBC (4.8-10.8) x10^3/uL RBC (4.20-5.40) 10^6/uL Hgb (12.0-16.0) g/dL Hct (37.0-47.0) % MCV (81.0-99.0) fL MCH (27.0-31.0) pg MCHC (32.0-36.0) g/dL RDW (12.0-15.0) % Plt Count (130-450) 10^3/uL MPV (7.9-10.8) fL Neut # (Auto) (1.5-6.6) 10^3/uL Lymph # (Auto) (1.5-3.5) 10^3/uL [place] # (Auto) (0.0-1.0) 10^3/uL Eos # (Auto) (0.0-0.7) 10^3/uL Baso # (Auto) (0.0-0.1) 10^3/uL Absolute Nucleated RBC x10^3/uL Nucleated RBC % /100WBC Bld Gas Analysis Time Sample Site ABG pH (7.35-7.45) ABG pCO2 (34-45) mmHg ABG pO2 (80-100) mmHg ABG HCO3 (22.0-26.0) mmol/L ABG Total CO2 (21.0-29.0) MMOL/L ABG O2 Saturation (94-98) % ABG Base Excess (-2.0-3.0) mmol/L Lester Test Respiration Rate b/min O2 Delivery Device O2 Liters/Min LPM FiO2 EPAP cmH2O IPAP cmH2O Sodium 119 L* (135-145) mmol/L Potassium 4.7 (3.5-5.0) mmol/L Chloride 78 L* (101-111) mmol/L Carbon Dioxide 36 H (21-32) mmol/L Anion Gap 5.0 L (6-13) BUN 18 (6-20) mg/dL Creatinine 0.6 (0.4-1.0) mg/dL Estimated GFR (MDRD) 96 (>89) Glucose 113 H (70-100) mg/dL Serum Osmolality 254 L (280-301) mOsmol/kg Calcium 8.7 (8.5-10.3) mg/dL Phosphorus (2.5-4.6) mg/dL Magnesium (1.7-2.8) mg/dL Urine Osmolality 626 (.) mOsmol/kg Nasal Screen MRSA (PCR) (NEGATIVE) Assessment/Plan - Problem List (1) Altered mental status Impression: Improved after BIPAP started yesterday (in ICU) It was likely mrobably multifactorial. Could be from hyponatremia. In her past history she has never had problems with substance abuse, opioid abuse, or benzodiazepine abuse. It could be from infection since the urine is growing Klebsiella oxytoca. Some of her sleepiness could be from the Cymbalta and Lyrica. Most likely it was from CO2 narcosis. She has improved significantly on BIPAP We started antibx for the pos urine ccx result Her serum Na is slowly improving and will continue jillian treat this. We held off on restarting her Cymbalta, Lyrica, and opioids. (2) CO2 narcosis Conclusion/Plan: Because of worsening somnolence a blood gas was done yesterday and it showed pH 7.26 PCO2 89 PO2 143 with saturation 99%. Yesterday we learned that she is on continuous Home O2 at 2L/min, not 3L/min, and that she has never been on a CPAP machine at home (unlike H&P states). Patient was transferred to the ICU for BiPAP treatment. With this, she awoke and was conversant. Her ABG showed improvement. We will resume her diet now that she is more awake and able to tolerate n.c. 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 This device will also reduce hospital readmissions. I have ordered a home BIPAP unit with the same company that provides her Home O2. Order submitted yesterday afternoon and we await its arrival for fitting by RT, before she can be [facility] e. Plan to use BiPAP nightly and also intermittently during the day. (3) Hyponatremia Conclusion/Plan: Improving We doubted free water intoxication, as this woman has never had that problem before. But she may have had a problem with her use of Lasix, being forgetful with it from hypersomnolence, which we witnessed. Spot urine sodium was ordered to be checked and serum and urine osmolality ordered 2 days ago and sent out, the results are still pending We have been given her iv Normal Saline at different rates. Checking sodium every 6 hours. Aiming for slow correction;target is no more than 6 mEq in a 12- hour period. Today we will add a loop diuretic and confirm the order that she is on a free water restriction (600 cc/day of water). This combination will hopefully improve her serum Na more. (4) Pulmonary edema Conclusion/Plan: A chest x-ray was ordered yesterday, as she was being moved to the ICU and because she has positive fluid balance and a history of chronic leg edema. This chest x-ray was read as having interstitial edema. Lasix was ordered but BP dropped to 89 yesterday and Lasix was stopped. She is now 2.5 kg heavier than at admission. Will order Lasix iv daily (5) Pickwickian syndrome Conclusion/Plan: By history with snoring and apnea, we strongly suspect she has obesity hypoventilation syndrome. She has chronic leg edema, suspected to be from R heart failure or from chronic lymphedema (and she was on Lasix at home). A limited Echo was done yesterday, prelim report said normal LV and RV function. Yesterday our DC RN called one of her caregiver providers who corroborated that the patient never has had a CPAP machine at home, just Home O2. She has been referred to pulmonology and her friend Adriana will be getting a van/wheelchair van to get her in that to then go see the business reporting developer. (6) UTI The urine is growing Klebsiella oxytoca, but she has had no fever or elevated white cell count. Given that her altered mental status is worse today than at admission, even despite some improvement in her serum sodium, we will presume that her mentation is altered from a UTI as well, and start an antibx: will give Keflex 500mg 4 times daily for a 5-day course. (7) Hypertension Conclusion/Plan: Her syst BP dropped to 89 yesterday and the planned iv Lasix was stopped. Her HR was in the 40's in ICU and her Coreg was stopped. Her med list had her on Coreg 12.5 bid, Lasix 60 mg, and Losartan 100 mg. These were all stopped yesterday when her BP dropped. Today syst BP is 170 and HR is 60. Will resume iv Lasix 60 mg daily Will restart Coreg at 6.25 bid and Losartan at 50 mg daily. Qualifiers: Hypertension type: primary hypertension Qualified Code(s): I10 - Essential (primary) hypertension (8) Chronic pain Conclusion/Plan: On intermittent opioid therapy. No long-acting therapy. May restart her home med of Lyrica and Percocet. Qualifiers: Chronic pain type: chronic pain syndrome Qualified Code(s): G89.4 - Chronic pain syndrome (9) Mobility impaired Conclusion/Plan: Due to muscle deconditioning, weight, and lack of ambition on the patient's part sometimes. PT and OT were ordered for this patient, but she did not want to do it that day. PT and OT were cancelled with transfer to ICU, and her hypersomnolence and hypotension. Will resume PT and OT orders now. (10) Morbid Obesity, BMI 50-59 As per Hx, and she has gained 2.5 kg since admission, from iv fluids. Will start diuretic today Qualifiers: Qualified Code(s): R40.0 - Somnolence
[2022-06-05] MEDS: ASPIRIN EC 81 MG TABLET PO SCH (09:05)
[2022-06-05] MEDS: cefTRIAXone 1 GM in SODIUM CHLORIDE 0.9% MINIBAG 100 ML IV SCH (09:06)
[2022-06-05] MEDS: LOSARTAN 50 MG TABLET PO SCH (09:06)
[2022-06-05] MEDS: ENOXAPARIN 40 MG/0.4 ML SYRINGE SUBQ SCH (09:06)
[2022-06-05] MEDS: carvediloL 3.125 MG TABLET PO SCH ×2 (09:06→20:47)
[2022-06-05] MEDS: FAMOTIDINE 20 MG/2 ML VIAL IVP SCH (09:07)
[2022-06-05] MEDS: FUROSEMIDE 40 MG/4 ML VIAL IVP SCH (09:07)
[2022-06-05] MEDS: SODIUM CHLORIDE 0.9% 1,000 ML IV SCH ×2 (11:14→13:19)
[2022-06-05] MEDS: ACETAMINOPHEN 325 MG TABLET PO SCH ×3 (13:18→20:46)
[2022-06-05] MEDS: HYDROcod/ACETAM 7.5 MG/325 MG TABLET PO PRN (20:46)
[2022-06-05] MEDS: AMITRIPTYLINE 25 MG TABLET PO SCH (20:47)
[2022-06-06] MEDS: SODIUM CHLORIDE FLUSH 0.9% 10 ML SYRINGE IVP PRN (04:26)
[2022-06-06] MEDS: SODIUM CHLORIDE FLUSH 0.9% 10 ML SYRINGE IVP SCH ×3 (04:26→18:31)
[2022-06-06] MEDS: SODIUM CHLORIDE 0.9% 1,000 ML IV SCH ×2 (05:01→22:21)
[2022-06-06 05:33] LABS: CALCIUM, IONIZED 1.14 mmol/L (1.15-1.33); VBG PH 7.384 (7.31-7.41)
[2022-06-06 05:57] LABS: CALCIUM 8.7 mg/dL (8.5-10.3); CREATININE 0.6 mg/dL (0.4-1.0); PHOSPHORUS 2.7 mg/dL (2.5-4.6); POTASSIUM 3.7 mmol/L (3.5-5.0)
[2022-06-06] MEDS ORDERED: POTASSIUM CHLOR 20 MEQ/100 ML 20 MEQ/100 ML BAG IV ONE (06:11)
[2022-06-06] MEDS: ACETAMINOPHEN 325 MG TABLET PO SCH ×4 (08:48→20:32)
[2022-06-06] MEDS: cefTRIAXone 1 GM in SODIUM CHLORIDE 0.9% MINIBAG 100 ML IV SCH (08:49)
[2022-06-06] MEDS: carvediloL 3.125 MG TABLET PO SCH ×2 (08:49→20:33)
[2022-06-06] MEDS: ASPIRIN EC 81 MG TABLET PO SCH (08:49)
[2022-06-06] MEDS: LOSARTAN 50 MG TABLET PO SCH (08:49)
[2022-06-06] MEDS: ENOXAPARIN 40 MG/0.4 ML SYRINGE SUBQ SCH (08:50)
[2022-06-06] MEDS: FUROSEMIDE 40 MG/4 ML VIAL IVP SCH (08:50)
[2022-06-06] MEDS: HYDROcod/ACETAM 7.5 MG/325 MG TABLET PO PRN ×2 (08:52→22:18)
[2022-06-06] MEDS: MULTIVITAMIN W/MINERALS TABLET PO SCH (12:32)
[2022-06-06] MEDS ORDERED: POTASSIUM CHLORIDE 20 MEQ TABLET PO ONE (15:07)
--- NOTE | 2022-06-06 17:15 | PROVIDER PROGRESS NOTE ---
Subjective - Subjective Pt reports feeling: Improved (Feels much better sitting upright in a chair than in bed with HOB elevated. Is wearing nasal cannula O2. Feels less sleepy and groggy ever since being on BiPAP for several nights.) Objective - Vital Signs/Intake & Output Reviewed Vital Signs: Yes Vital Signs: Vital Signs Pulse Resp BP Pulse Ox O2 Flow Rate 06/06/22 16:06 2 06/06/22 15:00 59 L 18 151/59 H 95 2 Intake & Output: Intake & Output 06/03/22 06/04/22 06/05/22 06/06/22 23:59 23:59 23:59 23:59 Intake Total 2567.5 2095.807 2520 609 Output Total 800 1870 9795 6677 Balance 1767.5 422.103 -2851 -3390 - Objective General Appearance: positive: No acute distress, Alert, Other (Obese, disheveled) Eyes Bilateral: positive: Normal inspection ENT: positive: No signs of dehydration Neck: positive: Other (Cannot evaluate JVP due to morbidly obese neck) Respiratory: positive: No respiratory distress, Breath sounds nml, Other (Poor air movement due to morbid obesity) Cardiovascular: positive: No murmur (Distant heart sounds due to morbid obesity) Abdomen: positive: Non-tender, Other (Obese with a very large pannus) Skin: positive: Warm, Dry Extremities: positive: Other (1+ edema to the mid thigh) - Lab Results Fish Bones: 06/07/22 05:10 06/07/22 05:10 Other Labs: Lab Results x24hrs 06/06/22 06/06/22 06/06/22 Range/Units 14:00 04:27 04:27 VBG pH 7.384 (7.31-7.41) Ionized Calcium 1.14 L (1.15-1.33) mmol/L Sodium 129 L (135-145) mmol/L Potassium 3.7 3.7 (3.5-5.0) mmol/L Chloride 84 L (101-111) mmol/L Carbon Dioxide 40 H* (21-32) mmol/L Anion Gap 5.0 L (6-13) BUN 11 (6-20) mg/dL Creatinine 0.6 (0.4-1.0) mg/dL Estimated GFR (MDRD) 96 (>89) Glucose 94 (70-100) mg/dL Calcium 8.7 (8.5-10.3) mg/dL Phosphorus 2.7 (2.5-4.6) mg/dL Magnesium 2.0 (1.7-2.8) mg/dL Assessment/Plan - Problem List (1) CO2 narcosis Impression: Because of worsening somnolence a blood gas was done yesterday and it showed pH 7.26 PCO2 89 PO2 143 with saturation 99%. Yesterday we learned that she is on continuous Home O2 at 2L/min, not 3L/min, and that she has never been on a CPAP machine at home (unlike H&P states). Patient was transferred to the ICU for BiPAP treatment. With this, she awoke and was conversant. Her ABG showed improvement. We will resume her diet now that she is more awake and able to tolerate n.c. 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 This device will also reduce hospital readmissions. I have ordered a home BIPAP unit with the same company that provides her Home O2. Order submitted yesterday afternoon and we await its arrival for fitting by RT, before she can be [facility] home. Plan to use BiPAP nightly and also intermittently during the day. (2) Pickwickian syndrome Conclusion/Plan: By history with snoring and apnea, we strongly suspect she has obesity hypoventilation syndrome. She has chronic leg edema, suspected to be from R heart failure or from chronic lymphedema (and she was on Lasix at home). A limited Echo was done yesterday, prelim report said normal LV and RV function. Yesterday our DC RN called one of her caregiver providers who corroborated that the patient never has had a CPAP machine at home, just Home O2. She has been referred to pulmonology and her friend Adriana will be getting a van/wheelchair van to get her in that to then go see the technician automated equipment. (3) Hyponatremia Conclusion/Plan: Improving We doubted free water intoxication, as this woman has never had that problem before. But she may have had a problem with her use of Lasix, being forgetful with it from hypersomnolence, which we witnessed. Spot urine sodium was ordered to be checked and serum and urine osmolality ordered 2 days ago and sent out, the results are still pending We have been given her iv Normal Saline at different rates. Checking sodium every 6 hours. Aiming for slow correction;target is no more than 6 mEq in a 12- hour period. Today we will add a loop diuretic and confirm the order that she is on a free water restriction (600 cc/day of water). This combination will hopefully improve her serum Na more. (4) Pulmonary edema Conclusion/Plan: A chest x-ray was as she was being moved to the ICU and because she has positive fluid balance and a history of chronic leg edema. This chest x-ray was read as having interstitial edema. She is now 6 kg heavier than at admission. We ordered Lasix iv daily Follow BMP, Mg daily (5) UTI The urine is growing Klebsiella oxytoca, but she had no fever or elevated white cell count. Given that her altered mental status was worse, even despite some improvement in her serum sodium, we presumed that her mentation is altered from a UTI as well, and start an antibx: ordered Keflex 500mg 4 times daily for a 5-day course. (6) Hypertension Conclusion/Plan: Her syst BP dropped to 89 yesterday and the planned iv Lasix was stopped. Her HR was in the 40's in ICU and her Coreg was stopped. Her med list had her on Coreg 12.5 bid, Lasix 60 mg, and Losartan 100 mg. These were all stopped yesterday when her BP dropped. Today syst BP is 170 and HR is 60. We resumed iv Lasix 60 mg daily. Will transition back to oral soon. We restarted Coreg at 6.25 bid and Losartan at 50 mg daily. Qualifiers: Hypertension type: primary hypertension Qualified Code(s): I10 - Essential (primary) hypertension (7) Chronic pain Conclusion/Plan: On intermittent opioid therapy. No long-acting therapy. May restart her home med of Lyrica and Percocet. Qualifiers: Chronic pain type: chronic pain syndrome Qualified Code(s): G89.4 - Chronic pain syndrome (8) Mobility impaired Conclusion/Plan: Due to muscle deconditioning, weight, and lack of ambition on the patient's part sometimes. PT and OT were ordered for this patient, but she did not want to do it that day. PT and OT were cancelled with transfer to ICU, and her hypersomnolence and hypotension. Will resume PT and OT orders now. (9) Morbid Obesity, BMI 50-59 Conclusion/Plan: As per Hx, and she has gained 2.5 kg since admission, from iv fluids. Will start diuretic today (10) Altered mental status Conclusion/Plan: Somnolence resolved and alertness improved after BIPAP started (in ICU) Somnolence was likely multifactorial: from hyponatremia, from poss opioid abuse, or benzodiazepine abuse, from UTI since the urine is growing Klebsiella oxytoca, some of her sleepiness could be from the Cymbalta and Lyrica but most likely it was from CO2 narcosis. She has improved significantly on BIPAP We started antibx for the pos urine ccx result Her serum Na is slowly improving and will continue jillian treat this. We held off on restarting her Cymbalta, Lyrica, and opioids until resumiomh them today
[2022-06-06] MEDS: AMITRIPTYLINE 25 MG TABLET PO SCH (20:32)
[2022-06-07] MEDS: SODIUM CHLORIDE FLUSH 0.9% 10 ML SYRINGE IVP SCH ×3 (05:10→18:26)
[2022-06-07] MEDS: SODIUM CHLORIDE FLUSH 0.9% 10 ML SYRINGE IVP PRN ×2 (05:10→18:25)
[2022-06-07 05:32] LABS: CALCIUM, IONIZED 1.16 mmol/L (1.15-1.33); VBG PH 7.397 (7.31-7.41)
[2022-06-07 05:40] LABS: BASOPHILS % (AUTO) 0.4 %; EOSINOPHILS # (AUTO) 0.2 10^3/uL (0.0-0.7); EOSINOPHILS % (AUTO) 2.3 %; HCT - HEMATOCRIT 35.7 % (37.0-47.0); HGB - HEMOGLOBIN 10.9 g/dL (12.0-16.0); LYMPHOCYTES # (AUTO) 0.8 10^3/uL (1.5-3.5); LYMPHOCYTES % (AUTO) 9.9 %; MEAN CORPUSCULAR HEMOGLOBIN 29.8 pg (27.0-31.0); MEAN CORPUSCULAR HGB CONC 30.5 g/dL (32.0-36.0); MEAN CORPUSCULAR VOLUME 97.5 fL (81.0-99.0); MEAN PLATELET VOLUME 10.8 fL (7.9-10.8); MONOCYTES # (AUTO) 0.9 10^3/uL (0.0-1.0); MONOCYTES % (AUTO) 11.2 %; NEUTROPHILS % (AUTO) 76.1 %; PLT - PLATELET COUNT 188 10^3/uL (130-450); RED BLOOD COUNT 3.66 10^6/uL (4.20-5.40); RED CELL DISTRIBUTION WIDTH 14.1 % (12.0-15.0); WHITE BLOOD COUNT 7.9 x10^3/uL (4.8-10.8)
[2022-06-07 05:51] LABS: CALCIUM 8.6 mg/dL (8.5-10.3); CREATININE 0.5 mg/dL (0.4-1.0); MAGNESIUM 2.1 mg/dL (1.7-2.8); PHOSPHORUS 3.4 mg/dL (2.5-4.6)
[2022-06-07] MEDS: carvediloL 3.125 MG TABLET PO SCH ×2 (08:34→21:19)
[2022-06-07] MEDS: ASPIRIN EC 81 MG TABLET PO SCH (08:34)
[2022-06-07] MEDS: ACETAMINOPHEN 325 MG TABLET PO SCH ×4 (08:34→21:18)
[2022-06-07] MEDS: MULTIVITAMIN W/MINERALS TABLET PO SCH (08:34)
[2022-06-07] MEDS: LOSARTAN 50 MG TABLET PO SCH (08:35)
[2022-06-07] MEDS: cefTRIAXone 1 GM in SODIUM CHLORIDE 0.9% MINIBAG 100 ML IV SCH (08:35)
[2022-06-07] MEDS: FUROSEMIDE 40 MG/4 ML VIAL IVP SCH (08:36)
[2022-06-07] MEDS: ENOXAPARIN 40 MG/0.4 ML SYRINGE SUBQ SCH (08:45)
[2022-06-07] MEDS ORDERED: ZINC OXIDE 20% OINT 30 GM TUBE TOP PRN (08:48)
[2022-06-07] MEDS ORDERED: CARBOXYMETHYLCELLULOSE OPHTH DROPS EACHEYE PRN (09:03)
[2022-06-07] MEDS: HYDROcod/ACETAM 7.5 MG/325 MG TABLET PO PRN (10:55)
[2022-06-07] MEDS ORDERED: FUROSEMIDE 40 MG TABLET PO SCH (12:00)
[2022-06-07] MEDS: PANTOPRAZOLE 40 MG TABLET PO SCH (12:27)
[2022-06-07] MEDS: methocarbamoL 500 MG TABLET PO PRN (12:28)
[2022-06-07] MEDS: DULoxetine 30 MG CAPSULE PO SCH (12:28)
[2022-06-07] MEDS: PREGABALIN 25 MG CAPSULE PO SCH ×2 (14:17→21:18)
[2022-06-07] MEDS: SODIUM CHLORIDE 0.9% 1,000 ML IV SCH (15:56)
--- NOTE | 2022-06-07 17:04 | PROVIDER PROGRESS NOTE ---
Subjective - Subjective Pt reports feeling: No change (She feels good sitting upright in a chair. She feels rested after using BiPAP at night. She says she is "too tired to work with PT and OT". She then admitted that she has not stood in approximately a month.) Objective - Vital Signs/Intake & Output Reviewed Vital Signs: Yes Vital Signs: Vital Signs Temp Pulse Resp BP Pulse Ox O2 Flow Rate 06/07/22 14:00 37.1 C 67 21 162/77 H 94 2 06/07/22 13:00 65 19 150/75 H 96 2 Intake & Output: Intake & Output 06/04/22 06/05/22 06/06/22 06/07/22 23:59 23:59 23:59 23:59 Intake Total 2095.807 2520 2199 1200 Output Total 1870 4585 5522 3293 Balance 225.807 -2065 -3323 -2093 - Objective General Appearance: positive: No acute distress (on O2 per n.c.) Eyes Bilateral: positive: Normal inspection ENT: positive: No signs of dehydration Neck: positive: Other (Cannot evaluate JVP due to morbidly obese neck with extra skin folds) Respiratory: positive: No respiratory distress, Breath sounds nml Cardiovascular: positive: No murmur (Distant heart sounds due to morbid obesity) Abdomen: positive: Non-tender, Other (Obese with large pannus) Skin: positive: Warm, Dry Extremities: positive: Other (2+ edema to the knees, there is shrinking seen of the skin at the shins and calves) Neurologic/Psychiatric: positive: Oriented x3, Other (Generalized weakness, and she has refused to try to stand up from a chair to assess leg strength) - Lab Results Fish Bones: 06/07/22 05:10 06/07/22 05:10 Other Labs: Lab Results x24hrs 06/07/22 06/07/22 06/07/22 Range/Units 05:10 05:10 05:10 WBC 7.9 (4.8-10.8) x10^3/uL RBC 3.66 L (4.20-5.40) 10^6/uL Hgb 10.9 L (12.0-16.0) g/dL Hct 35.7 L (37.0-47.0) % MCV 97.5 (81.0-99.0) fL MCH 29.8 (27.0-31.0) pg MCHC 30.5 L (32.0-36.0) g/dL RDW 14.1 (12.0-15.0) % Plt Count 188 (130-450) 10^3/uL MPV 10.8 (7.9-10.8) fL Neut # (Auto) 6.0 (1.5-6.6) 10^3/uL Lymph # (Auto) 0.8 L (1.5-3.5) 10^3/uL Posey # (Auto) 0.9 (0.0-1.0) 10^3/uL Eos # (Auto) 0.2 (0.0-0.7) 10^3/uL Baso # (Auto) 0.0 (0.0-0.1) 10^3/uL Absolute Nucleated RBC 0.00 x10^3/uL Nucleated RBC % 0.0 /100WBC VBG pH 7.397 (7.31-7.41) Ionized Calcium 1.16 (1.15-1.33) mmol/L Sodium 132 L (135-145) mmol/L Potassium 4.0 (3.5-5.0) mmol/L Chloride 87 L (101-111) mmol/L Carbon Dioxide 40 H* (21-32) mmol/L Anion Gap 5.0 L (6-13) BUN 12 (6-20) mg/dL Creatinine 0.5 (0.4-1.0) mg/dL Estimated GFR (MDRD) 119 (>89) Glucose 103 H (70-100) mg/dL Calcium 8.6 (8.5-10.3) mg/dL Phosphorus 3.4 (2.5-4.6) mg/dL Magnesium 2.1 (1.7-2.8) mg/dL Assessment/Plan - Problem List (1) CO2 narcosis Impression: Because of worsening somnolence several days ago, a blood gas was done, showed pH 7.26 PCO2 89 PO2 143 with saturation 99%. We learned that she is on continuous Home O2 at 2L/min, not 3L/min, and that she has never been on a CPAP machine at home (unlike H&P states). Patient was transferred to the ICU for BiPAP treatment. Her ABG showed improvement. With this, she awoke and has been mentating, is conversant. She is on the BiPAP every night now, and also at daytime if she is hypersomnolent, alternating with n.c. use daytime. 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 This device will also reduce hospital readmissions. I have ordered a home BIPAP unit with the same company that provides her Home O2. Order submitted and we await its arrival for fitting by RT, before she can be safely discharged, using BIPAP. Plan to continue to use BiPAP nightly and also intermittently during the day, if she becomes somnolent. (2) Pickwickian syndrome Conclusion/Plan: By history with snoring and apnea, we strongly suspect she has obesity hypoventilation syndrome. She has chronic leg edema, suspected to be from R heart failure or from chronic lymphedema (and she was on Lasix at home). A limited Echo was done several days ago, report said normal LV and RV function. The patient never has had a CPAP machine at home, just Home O2. She has been referred to pulmonology and her friend Adriana discussed getting a van/wheelchair van to get her in that to then go see the statistical typist. I have ordered a home BIPAP unit, which she needs to be discharged with, therefore we are awaiting its arrival here. Today's RT, Reva called [facility] and they don't have authorization from her Insurance yet to deliver the unit. (3) Generalized weakness Conclusion/Plan: Since being admitted to the ICU, she has preferred to sit upright in a chair. As she also became more alert, we ordered PT and OT to work with her. Patient has declined to work with OT and PT saying she is "too tired". We learned that the patient has caregivers at home that come in the morning and in the evening and in between her friend Adriana assists her in the house. The house is being retrofitted with special bars and equipment currently by a lithographer helper. Patient no longer gets out of bed and stands or pivots into a chair. She requires being lifted with a Toma Lift from bed to chair. She also admitted to staff that she sits in her diaper and urinates and defecates into this, then waits several hours for a caregiver to come and clean her up. She no longer uses the toilet or bedside commode. I spoke to her about this yesterday and today and with input from PT and OT told her that she needs 24/7 caregivers, since it is not medically sound to sit in excrement or wet diapers for hours. She says that she would like to afford more caregivers but cannot afford them and she is also thinking about moving in with Adriana. I asked her why she is having her own house retrofitted therefore. I asked her if she would consider moving into a chcf for 24/7 care and she says she would not because she loves her home too much. Today the patient asked me to speak to her nephew, who is a physician, an adult psychiatrist in [place], and who she wants to become her DPOA. I spoke to Dr. Von Butt at [phone] and described all the above. He agrees that she needs 24/7 care and says the family has been trying to convince her to do that for months. He also gave me an example where she fell out of her recliner sever al mos ago, and was found on the floor in her house where she had laid for 10 hours. He requested that an APS report be submitted, which I will do or ask SW to do. He says he has never met Adriana and is not sure of her intentions. If the patient is able to stand and pivot and can get 24/7 caregivers at home, then a safe discharge will be to her house when the BIPAP unit arrives, otherwise she needs long-term care and full-time care. (4) Hyponatremia Conclusion/Plan: Improving We doubted free water intoxication, as this woman has never had that problem be fore. But she may have had a problem with her use of Lasix, being forgetful with it from hypersomnolence, which we witnessed. Spot urine sodium was ordered to be checked and serum and urine osmolality ordered several days ago and sent out, the results are still pending We have been given her iv Normal Saline at different rates. Checking sodium every 6 hours. Aiming for slow correction;target is no more than 6 mEq in a 12- hour period. Then we added Lasix iv and continuing a free water restriction (600 cc/day of water). This combination has improved her serum sodium and her leg edema (5) Pulmonary edema Conclusion/Plan: A chest x-ray was as she was being moved to the ICU and because she has positive fluid balance and a history of chronic leg edema. This chest x-ray was read as having interstitial edema. She is now 6 kg heavier than at admission. We ordered Lasix iv daily Follow BMP, Mg daily (6) UTI The urine is growing Klebsiella oxytoca, but she had no fever or elevated white cell count. Given that her altered mental status was worse, even despite some improvement in her serum sodium, we presumed that her mentation was altered from a UTI as well, and started an antibx: ordered Keflex 500mg 4 times daily for a 5-day course. (7) Hypertension Conclusion/Plan: Her syst BP was 89 when transferred to the ICU and HR was in the 40's in ICU. Her med list had her on Coreg 12.5 bid, Lasix 60 mg, and Losartan 100 mg. These were all stopped when her BP dropped. Now BP is hypertensive and HR is 60. We resumed iv Lasix 60 mg daily. Will transition back to oral soon. We restarted Coreg at 6.25 bid and Losartan at 50 mg daily. Qualifiers: Hypertension type: primary hypertension Qualified Code(s): I10 - Essential (primary) hypertension (8) Chronic pain Conclusion/Plan: On intermittent opioid therapy. No long-acting therapy. Because of pain, we will restart her home med of Lyrica and Percocet today. Qualifiers: Chronic pain type: chronic pain syndrome Qualified Code(s): G89.4 - Chronic pain syndrome (9) Mobility impaired Conclusion/Plan: Due to muscle deconditioning, weight, and lack of ambition on the patient's part sometimes. PT and OT were ordered for this patient, but she did not want to do it that day. PT and OT were cancelled with transfer to ICU, and her hype rsomnolence and hypotension. We have resumed the PT and OT orders now. See (10) Morbid Obesity, BMI 50-59 Conclusion/Plan: As per Hx, and she has gained 6 kg since admission, from the initial iv fluids. We have re-start her diuretic (11) Altered mental status Conclusion/Plan: Somnolence resolved and alertness improved after BIPAP started (in ICU) several days ago. Somnolence was likely multifactorial: from hyponatremia, from poss opioid abuse, or benzodiazepine abuse, from UTI since the urine is growing Klebsiella oxytoca, some of her sleepiness could be from the Cymbalta and Lyrica but most likely it was from CO2 narcosis. Somnolence has improved significantly on BIPAP We started antibx for the pos urine ccx result Her serum Na is slowly improving and will continue jillian treat this. We held off on restarting her Cymbalta, Lyrica, and opioids until resumiomh them today
[2022-06-07] MEDS: AMITRIPTYLINE 25 MG TABLET PO SCH (21:18)
[2022-06-08 06:49] LABS: CALCIUM, IONIZED 1.17 mmol/L (1.15-1.33); VBG PH 7.401 (7.31-7.41)
[2022-06-08] MEDS: PREGABALIN 25 MG CAPSULE PO SCH ×3 (07:01→21:46)
[2022-06-08] MEDS: PANTOPRAZOLE 40 MG TABLET PO SCH (07:01)
[2022-06-08] MEDS: SODIUM CHLORIDE FLUSH 0.9% 10 ML SYRINGE IVP SCH ×3 (07:01→17:43)
[2022-06-08] MEDS: SODIUM CHLORIDE 0.9% 1,000 ML IV SCH (07:02)
[2022-06-08 07:51] LABS: CREATININE 0.6 mg/dL (0.4-1.0); PHOSPHORUS 3.6 mg/dL (2.5-4.6); POTASSIUM 4.3 mmol/L (3.5-5.0)
--- NOTE | 2022-06-08 08:23 | PROVIDER PROGRESS NOTE ---
Assessment/Plan - Problem List (1) Obesity hypoventilation syndrome Assessment/Plan: By history with snoring and apnea, we strongly suspect she has obesity hypoventilation syndrome. She has chronic leg edema, suspected to be from R heart failure or from chronic lymphedema (and she was on Lasix at home). A limited Echo was done several days ago, report said normal LV and RV function. The patient never has had a CPAP machine at home, just Home O2. She has been referred to pulmonology and her friend Adriana discussed getting a van/wheelchair van to get her to go see the platform supervisor. 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 I have ordered a home BIPAP unit, which she needs to be discharged with, therefore we are awaiting its arrival here. The RT, Reva called [facility] and they don't have authorization from her Insurance yet to deliver the unit. She is now accustomed to use a BIPAP and will therefore move her out of ICU to [facility] status today. (2) CO2 narcosis Conclusion/Plan: Because of worsening somnolence several days ago, a blood gas was done, showed pH 7.26 PCO2 89 PO2 143 with saturation 99%. We learned that she is on continuous home O2 at 2L/min, not 3L/min, and that she has never been on a CPAP machine at home (unlike H&P states). After that ABG, patient was transferred to the ICU for BiPAP treatment. Her ABG showed improvement. With BIPAP, she awoke and has been mentating, is conversant. She is on the BiPAP every night now, and also at daytime if she is hypersomnolent, alternating with n.c. use daytime. 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 This device will also reduce hospital readmissions. I have ordered a home BIPAP unit with the same company that provides her Home O2. Order submitted and we await its arrival for fitting by RT, before she can be safely discharged, using BIPAP. Plan is to continue to use BiPAP nightly and also intermittently during the day, if she becomes somnolent. (3) PSVT Conclusion/Plan: Yesterday evening 11/5 at 6 PM she had PSVT. The rate was 160; lasted approx 15 sec. She was asymptomatic with it. This is possibly caused by her pulmonary disease and from volume depletion (on iv Lasix), and being on a lower dose of carvedilol (which needed to be decreased when she was hypotensive). Will start to increase back her carvedilol, while decreasing her ARB dose and changing iv Lasix to her usual po Lasix. Following BMP, Mg daily (4) Generalized weakness She has preferred to sit upright in a chair. As she also became more alert, we ordered PT and OT to work with her. Patient has declined to work with OT and PT saying she is "too tired". We learned that the patient has caregivers at home that come in the morning and in the evening and in between her friend Adriana assists her in the house. The house is being retrofitted with special bars and equipment currently by a casino investigator. Patient no longer gets out of bed and stands or pivots into a chair. She requires being lifted with a Toma Lift from bed to chair. She also admitted to staff that she sits in her diaper and urinates and defecates into this, then waits several hours for a caregiver to come and clean her up. She no longer uses the toilet or bedside commode. I spoke to her about this yesterday and today and with input from PT and OT told her that she needs 24/7 caregivers, since it is not medically sound to sit in excrement or wet diapers for hours. She says that she would like to afford more caregivers but cannot afford them and she is also thinking about moving in with Adriana. I asked her why she is having her own house retrofitted therefore. I asked her if she would consider moving into a detention for 24/7 care and she says she would not because she loves her home too much. On 06/07 the patient asked me to speak to her nephew, who is a physician, an adult psychiatrist in [place], and who she wants to become her DPOA. I spoke to Dr. Von Butt at [phone] and described all the above. He agrees that she needs 24/7 care and says the family has been trying to convince her to do that for months. He also gave me an example where she fell out of her recliner several mos ago, and was found on the floor in her house where she had laid for 10 hours. He requested that an APS report be submitted, which I will do or ask SW to do. He says he has never met Adriana and is not sure of her intentions. If the patient is able to stand and pivot and can get 24/7 caregivers at home, then a safe discharge will be to her house when the BIPAP unit arrives, otherwise she needs long-term care and full-time care. (5) Mobility impaired Conclusion/Plan: Due to muscle deconditioning, severe overweight, and lack of ambition on the patient's part. PT and OT were ordered for this patient at admission, but she did not want to do it. PT and OT were cancelled with transfer into ICU, and her hypersomnolence and hypotension. Then we resumed the PT and OT orders now, but patient has often declined to work with OT and PT saying she is "too tired". We learned that for the last 1 month, she requires being lifted with a Toma Lift from bed to chair and does not stand or bear weight even to pivot. If the patient is able to stand and pivot and can get 24/7 caregivers at home, then a safe discharge will be to her house when the BIPAP unit arrives, otherwise she needs full-time 24/7 care in a penitentiary care facility. (6) Hyponatremia Conclusion/Plan: Improving We doubted free water intoxication, as this woman has never had that problem before. But she may have had a problem with her use of Lasix, being forgetful with it from hypersomnolence, which we witnessed. Spot urine sodium was ordered to be checked and serum and urine osmolality ordered several days ago and sent out, the results are still pending We have been given her iv Normal Saline at different rates. Checking sodium frequently initially, now daily. Then we added Lasix iv and continuing a free water restriction (600 cc/day of water). This combination has improved her serum sodium and her leg edema. Lasix will go back to her usual po doses of 60 mg in a.m. 40 mg at noon. Following BMP daily (7) Hypertension Conclusion/Plan: Her syst BP was 89 when transferred to the ICU and HR was in the 40's in ICU. Her med list had her on Coreg 12.5 bid, Lasix 60 mga.m. 40 mg at noon, and Losartan 100 mg. These were all stopped when her BP dropped. Now BP is intemittently hypertensive and HR is 60. We used iv Lasix 60 mg daily. Will transition back to oral today We restarted Coreg at 6.25 bid and Losartan at 50 mg daily. Will start to increase back her carvedilol, while decreasing her ARB dose and changing iv Lasix to her usual po Lasix. Qualifiers: Hypertension type: primary hypertension Qualified Code(s): I10 - Essential (primary) hypertension (8) Pulmonary edema Conclusion/Plan: A chest x-ray showed pulmonary edema and she had positive fluid balance from iv fluids treating Hyponatremia. She has a history of chronic leg edema. We ordered Lasix iv and a Adler Following BMP, Mg daily Adler ordered to be removed on 06/07, but given her inability to stand to get on commode, and when in bed rolling and moving her is painful, she may need to have a chronic indwelling Adler. (9) UTI The urine is growing Klebsiella oxytoca, but she had no fever or elevated white cell count. Given that her altered mental status was worse, even despite some improvement in her serum sodium, we presumed that her mentation was altered from a UTI as well, and started an antibx: ordered Keflex 500mg 4 times daily for a 5-day course. (10) Chronic pain Conclusion/Plan: On intermittent opioid therapy. No long-acting therapy. Because of pain, we restartded her home med of Lyrica and Percocet on 06/07. Qualifiers: Chronic pain type: chronic pain syndrome Qualified Code(s): G89.4 - Chronic pain syndrome (11) Morbid Obesity, BMI 50-59 Conclusion/Plan: As per Hx, and she gained 6 kg since admission, from the initial iv fluids. We have re-start her diuretics iv>> po. (12) Altered mental status Conclusion/Plan: Resolved and alertness improved after BIPAP started (in ICU) several days ago. Somnolence was likely multifactorial: from hyponatremia, from poss opioid abuse, or benzodiazepine abuse, from a Klebsiella, and some of her sleepiness could be from the Cymbalta and Lyrica, but most likely her somnolence was from CO2 narcosis. - Current Meds Current Meds: Current Medications Generic Name Dose Route Start Last Admin Trade Name Freq PRN Reason Stop Dose Admin Acetaminophen 650 mg 06/05/22 13:00 06/07/22 21:18 Acetaminophen 325 Mg Tablet PO 650 mg QID TAI Administration Hydrocodone Bitart/Acetaminophen 1 tab 06/05/22 09:31 06/07/22 10:55 Hydrocod/Acetam 7.5 Mg/325 Mg Tablet PO 1 tab BID PRN Administration PAIN Amitriptyline HCl 50 mg 06/05/22 21:00 06/07/22 21:18 Amitriptyline 25 Mg Tablet PO 50 mg QPM TAI Administration Aspirin 81 mg 06/04/22 09:00 06/07/22 08:34 Aspirin Ec 81 Mg Tablet PO 81 mg DAILY TAI Administration Carboxymethylcellulose 1 drops 06/07/22 09:03 06/07/22 11:24 Carboxymethylcellulose Ophth Drops EACHEYE 1 applic PRN PRN Administration Dry Eye Duloxetine HCl 60 mg 06/07/22 11:00 06/07/22 12:28 Duloxetine 30 Mg Capsule PO 60 mg DAILY TAI Administration Enoxaparin Sodium 40 mg 06/03/22 09:00 06/07/22 08:45 Enoxaparin 40 Mg/0.4 Ml Syringe SUBQ 40 mg DAILY TAI Administration Ceftriaxone Sodium 1 gm/ 100 mls @ 200 mls/hr 06/04/22 14:44 06/07/22 09:15 Sodium Chloride IV Infused DAILY TAI Infusion Sodium Chloride 1,000 mls @ 60 mls/hr 06/05/22 11:50 06/08/22 07:02 Normal Saline 0.9% IV 60 mls/hr .[id number] TAI Administration Methocarbamol 750 mg 06/07/22 11:00 06/07/22 12:28 Methocarbamol 500 Mg Tablet PO 750 mg QID PRN Administration Spasms Multi-Ingredient Ointment 1 applic 06/07/22 08:48 06/07/22 10:57 Zinc Oxide 20% Oint 30 Gm Tube TOP 1 applic PRN PRN Administration Skin Care Multivitamins/Minerals 1 tab 06/06/22 12:00 06/07/22 08:34 Multivitamin W/Minerals Tablet PO 1 tab DAILYWM TAI Administration Pantoprazole Sodium 40 mg 06/07/22 11:00 06/08/22 07:01 Pantoprazole 40 Mg Tablet PO 40 mg QDAC TAI Administration Pregabalin 50 mg 06/07/22 14:00 06/08/22 07:01 Pregabalin 25 Mg Capsule PO 50 mg TID TAI Administration Sodium Chloride 10 ml 06/02/22 17:15 06/07/22 18:25 Sodium Chloride Flush 0.9% 10 Ml Syringe IVP 20 ml PRN PRN Administration NEEDED PER PROVIDER ORDERS Sodium Chloride 10 ml 06/03/22 01:00 06/08/22 07:01 Sodium Chloride Flush 0.9% 10 Ml Syringe IVP 60 ml 0100,0900,1700 TAI Administration - Lab Result Fish Bone Diagrams: 06/07/22 05:10 06/08/22 06:40 - Additional Planning My Orders: My Active Orders 06/07/22 08:48 Zinc Oxide 20% Oint [Zinc Oxide] 1 applic TOP PRN PRN 06/07/22 09:03 Carboxymethylcellulose 1% Opht [Refresh 1% Ophth Drops] 1 drops EACHEYE PRN PRN 06/07/22 11:00 DULoxetine [Cymbalta] 60 mg PO DAILY Pantoprazole [Protonix] 40 mg PO QDAC methocarbamoL [Robaxin] 750 mg PO QID PRN 06/07/22 14:00 Pregabalin [Lyrica] 50 mg PO TID 06/08/22 08:18 Transfer [Admit \\ Transfer \\ Status] [RC] .ONCE 06/08/22 08:21 Telemetry- [RC] Q4HR 06/08/22 09:00 Furosemide [Lasix] 40 mg PO DAILY Furosemide [Lasix] 60 mg PO 1200 Losartan [Cozaar] 25 mg PO DAILY carvediloL [Coreg] 9.375 mg PO BID 06/09/22 05:00 BMP - BASIC METABOLIC PANEL [CHEM] DAILYLAB 06/10/22 05:00 BMP - BASIC METABOLIC PANEL [CHEM] DAILYLAB Subjective - Subjective Patient Reports: Resting Comfortably Nursing Reports: Other (When rolled in bed, she tightens her leg muscles and pushes against care provider and says rolling is painful for her) Objective Vital Signs: Vital Signs - 24 hr 06/07/22 06/07/22 06/07/22 11:00 12:00 13:00 Temperature Heart Rate Heart Rate [ 63 65 65 Monitoring electrodes] Respiratory 22 24 19 Rate Blood Pressure 124/104 H 132/66 H 150/75 H [Left Radial artery] O2 Saturation 94 96 96 If not protocol 2 2 2 : Oxygen Flow, liters/minute 06/07/22 06/07/22 06/07/22 14:00 15:00 17:00 Temperature 37.1 C Heart Rate Heart Rate [ 67 67 74 Monitoring electrodes] Respiratory 21 16 19 Rate Blood Pressure 162/77 H 160/65 H 156/64 H [Left Radial artery] O2 Saturation 94 96 94 If not protocol 2 2 2 : Oxygen Flow, liters/minute 06/07/22 06/07/22 06/07/22 18:50 19:00 20:00 Temperature Heart Rate Heart Rate [ 76 Monitoring electrodes] Respiratory 18 Rate Blood Pressure 145/62 H [Left Radial artery] O2 Saturation 92 If not protocol 2 2 2 : Oxygen Flow, liters/minute 06/07/22 06/07/22 06/07/22 21:00 22:00 23:27 Temperature 37.0 C 36.8 C Heart Rate Heart Rate [ 65 64 Monitoring electrodes] Respiratory 17 21 Rate Blood Pressure 145/78 H 131/72 H [Left Radial artery] O2 Saturation 96 95 If not protocol 2 2 : Oxygen Flow, liters/minute 06/08/22 06/08/22 06/08/22 00:30 01:00 PST 03:00 Temperature Heart Rate 61 Heart Rate [ 49 L 49 L Monitoring electrodes] Respiratory 16 16 Rate Blood Pressure 119/62 96/41 L [Left Radial artery] O2 Saturation 95 95 If not protocol : Oxygen Flow, liters/minute 06/08/22 06/08/22 06/08/22 03:15 06:00 07:16 Temperature 36.6 C Heart Rate 55 L 59 L Heart Rate [ 58 L 59 L Monitoring electrodes] Respiratory 17 17 Rate Blood Pressure 143/68 H 105/54 L [Left Radial artery] O2 Saturation 96 99 If not protocol : Oxygen Flow, liters/minute Oxygen O2 Source [Without Activity] Nasal cannula O2 Source [With Activity] Nasal cannula O2 Source BIPAP I&O (Last 24 Hrs): Intake and Output Totals x24h 06/06/22 06/07/22 06/08/22 23:59 23:59 22:59 Intake Total 2199 1564 602 Output Total 3366 3602 525 [facility] [phone] General: No acute distress, Other (Sleeping w/ BIPAP on, in bed) HEENT: Mucous membr. moist/pink Neck: Other (Cannot evaluate JVP due to morbidly obese neck) Neuro: Alert, Non Focal, Other (Cannot eval for weight bearing) Cardiovascular: Regular rate, Other (Distant heart sounds due to morbid obesity) Respiratory: No respiratory distress (while on n.c. or BIPAP) Abdomen: No tenderness, Other (obese with pannus) Genitourinary: Other (Has Adler in place) Extremities: Other (2+ edema to knees) - Results Results: Laboratory Results WBC 7.9 x10^3/uL (4.8-10.8) 06/07/22 05:10 RBC 3.66 10^6/uL (4.20-5.40) L 06/07/22 05:10 Hgb 10.9 g/dL (12.0-16.0) L 06/07/22 05:10 Hct 35.7 % (37.0-47.0) L 06/07/22 05:10 MCV 97.5 fL (81.0-99.0) 06/07/22 05:10 MCH 29.8 pg (27.0-31.0) 06/07/22 05:10 MCHC 30.5 g/dL (32.0-36.0) L 06/07/22 05:10 RDW 14.1 % (12.0-15.0) 06/07/22 05:10 Plt Count 188 10^3/uL (130-450) 06/07/22 05:10 MPV 10.8 fL (7.9-10.8) 06/07/22 05:10 Neut # (Auto) 6.0 10^3/uL (1.5-6.6) 06/07/22 05:10 Lymph # (Auto) 0.8 10^3/uL (1.5-3.5) L 06/07/22 05:10 [place] # (Auto) 0.9 10^3/uL (0.0-1.0) 06/07/22 05:10 Eos # (Auto) 0.2 10^3/uL (0.0-0.7) 06/07/22 05:10 Baso # (Auto) 0.0 10^3/uL (0.0-0.1) 06/07/22 05:10 Absolute Nucleated RBC 0.00 x10^3/uL 06/07/22 05:10 Nucleated RBC % 0.0 /100WBC 06/07/22 05:10 Bld Gas Analysis Time 0704 06/05/22 06:55 Sample Site LEFT RADIAL 06/05/22 06:55 ABG pH 7.41 (7.35-7.45) 06/05/22 06:55 ABG pCO2 61 mmHg (34-45) H* 06/05/22 06:55 ABG pO2 95 mmHg (80-100) 06/05/22 06:55 ABG HCO3 37.4 mmol/L (22.0-26.0) H 06/05/22 06:55 ABG Total CO2 39.3 MMOL/L (21.0-29.0) H* 06/05/22 06:55 ABG O2 Saturation 97 % (94-98) 06/05/22 06:55 ABG Base Excess 10.8 mmol/L (-2.0-3.0) H 06/05/22 06:55 Lester Test POSITIVE 06/05/22 06:55 VBG pH 7.401 (7.31-7.41) 06/08/22 06:40 Ionized Calcium 1.17 mmol/L (1.15-1.33) 06/08/22 06:40 Respiration Rate 16 b/min 06/04/22 12:20 O2 Delivery Device BiPAP 06/05/22 06:55 O2 Liters/Min 3.00 LPM 06/04/22 11:00 FiO2 30.00 06/05/22 06:55 EPAP 5 cmH2O 06/05/22 06:55 IPAP 16 cmH2O 06/05/22 06:55 Sodium 130 mmol/L (135-145) L 06/08/22 06:40 Potassium 4.3 mmol/L (3.5-5.0) 06/08/22 06:40 Chloride 86 mmol/L (101-111) L 06/08/22 06:40 Carbon Dioxide 40 mmol/L (21-32) H* 06/08/22 06:40 Anion Gap 4.0 (6-13) L 06/08/22 06:40 BUN 16 mg/dL (6-20) 06/08/22 06:40 Creatinine 0.6 mg/dL (0.4-1.0) 06/08/22 06:40 Estimated GFR (MDRD) 96 (>89) 06/08/22 06:40 Glucose 98 mg/dL (70-100) 06/08/22 06:40 Serum Osmolality 254 mOsmol/kg (280-301) L 06/02/22 16:45 Calcium 9.0 mg/dL (8.5-10.3) 06/08/22 06:40 Phosphorus 3.6 mg/dL (2.5-4.6) 06/08/22 06:40 Magnesium 2.0 mg/dL (1.7-2.8) 06/08/22 06:40 Total Bilirubin 0.7 mg/dL (0.2-1.0) 06/02/22 16:31 AST 14 IU/L (10-42) 06/02/22 16:31 ALT 16 IU/L (10-60) 06/02/22 16:31 Alkaline Phosphatase 92 IU/L (42-121) 06/02/22 16:31 Total Protein 6.8 g/dL (6.7-8.2) 06/02/22 16:31 Albumin 3.8 g/dL (3.2-5.5) 06/02/22 16:31 Globulin 3.0 g/dL (2.1-4.2) 06/02/22 16:31 Albumin/Globulin Ratio 1.3 (1.0-2.2) 06/02/22 16:31 Lipase 26 U/L (22-51) 06/02/22 16:31 Urine Color YELLOW 06/02/22 16:45 Urine Clarity HAZY (CLEAR) 06/02/22 16:45 Urine pH 7.5 PH (5.0-7.5) 06/02/22 16:45 Ur Specific [place] 1.015 (1.002-1.030) 06/02/22 16:45 Urine Protein 30 mg/dL (NEGATIVE) H 06/02/22 16:45 Urine Glucose (UA) NEGATIVE mg/dL (NEGATIVE) 06/02/22 16:45 Urine Ketones TRACE mg/dL (NEGATIVE) 06/02/22 16:45 Urine Occult Blood SMALL (NEGATIVE) H 06/02/22 16:45 Urine Nitrite NEGATIVE (NEGATIVE) 06/02/22 16:45 Urine Bilirubin NEGATIVE (NEGATIVE) 06/02/22 16:45 Urine Urobilinogen 1 (NORMAL) E.U./dL (NORMAL) 06/02/22 16:45 Ur Leukocyte Esterase TRACE (NEGATIVE) H 06/02/22 16:45 Urine RBC 6-10 /HPF (0-5) H 06/02/22 16:45 Urine WBC 11-25 /HPF (0-5) H 06/02/22 16:45 Ur Squamous Epith Cells FEW Squamous (<= Few) 06/02/22 16:45 Urine Bacteria Moderate /HPF (None Seen) H 06/02/22 16:45 Ur Microscopic Review INDICATED 06/02/22 16:45 Urine Culture Comments INDICATED 06/02/22 16:45 Urine Osmolality 626 mOsmol/kg (.) 06/02/22 16:45 Nasal Screen MRSA (PCR) NEGATIVE (NEGATIVE) 06/04/22 14:58 SARS-CoV-2 (PCR) NOT DETECTED 06/02/22 18:00 - Procedures Procedures: Procedures CATARAC PHACOEMULS/ASPIR (04/27/14) INSERT LENS AT CATAR EXT (04/27/14) REPLACEMENT OF LEFT LENS WITH SYNTH SUB, PERC APPROACH (09/25/16)
[2022-06-08] MEDS: DULoxetine 30 MG CAPSULE PO SCH (10:13)
[2022-06-08] MEDS: FUROSEMIDE 20 MG TABLET PO SCH (10:13)
[2022-06-08] MEDS: ASPIRIN EC 81 MG TABLET PO SCH (10:14)
[2022-06-08] MEDS: carvediloL 3.125 MG TABLET PO SCH ×2 (10:14→21:46)
[2022-06-08] MEDS: ACETAMINOPHEN 325 MG TABLET PO SCH ×4 (10:14→21:46)
[2022-06-08] MEDS: cefTRIAXone 1 GM in SODIUM CHLORIDE 0.9% MINIBAG 100 ML IV SCH (10:15)
[2022-06-08] MEDS: ENOXAPARIN 40 MG/0.4 ML SYRINGE SUBQ SCH (10:15)
[2022-06-08] MEDS: LOSARTAN 50 MG TABLET PO SCH (10:16)
[2022-06-08] MEDS: HYDROcod/ACETAM 7.5 MG/325 MG TABLET PO PRN (10:27)
[2022-06-08] MEDS: MULTIVITAMIN W/MINERALS TABLET PO SCH (11:14)
[2022-06-08] MEDS: FUROSEMIDE 40 MG TABLET PO SCH (13:32)
[2022-06-08] MEDS: SODIUM CHLORIDE FLUSH 0.9% 10 ML SYRINGE IVP PRN (17:43)
[2022-06-08] MEDS: AMITRIPTYLINE 25 MG TABLET PO SCH (21:46)
[2022-06-09] MEDS: SODIUM CHLORIDE 0.9% 1,000 ML IV SCH ×2 (01:00→18:35)
[2022-06-09] MEDS: SODIUM CHLORIDE FLUSH 0.9% 10 ML SYRINGE IVP SCH ×3 (06:55→16:56)
[2022-06-09] MEDS: PANTOPRAZOLE 40 MG TABLET PO SCH (07:02)
[2022-06-09] MEDS: PREGABALIN 25 MG CAPSULE PO SCH ×3 (07:02→22:17)
[2022-06-09 07:14] LABS: CALCIUM 8.8 mg/dL (8.5-10.3); CREATININE 0.6 mg/dL (0.4-1.0); POTASSIUM 4.1 mmol/L (3.5-5.0)
[2022-06-09] MEDS: cefTRIAXone 1 GM in SODIUM CHLORIDE 0.9% MINIBAG 100 ML IV SCH (08:47)
[2022-06-09] MEDS: DULoxetine 30 MG CAPSULE PO SCH (08:48)
[2022-06-09] MEDS: carvediloL 3.125 MG TABLET PO SCH ×2 (08:48→20:49)
[2022-06-09] MEDS: ACETAMINOPHEN 325 MG TABLET PO SCH ×4 (08:48→20:48)
[2022-06-09] MEDS: FUROSEMIDE 20 MG TABLET PO SCH (08:48)
[2022-06-09] MEDS: LOSARTAN 50 MG TABLET PO SCH (08:48)
[2022-06-09] MEDS: ASPIRIN EC 81 MG TABLET PO SCH (08:48)
[2022-06-09] MEDS: ENOXAPARIN 40 MG/0.4 ML SYRINGE SUBQ SCH (08:49)
[2022-06-09] MEDS: MULTIVITAMIN W/MINERALS TABLET PO SCH (09:04)
[2022-06-09] MEDS: FUROSEMIDE 40 MG TABLET PO SCH (11:47)
--- NOTE | 2022-06-09 18:44 | PROVIDER PROGRESS NOTE ---
Assessment/Plan - Problem List (1) Obesity hypoventilation syndrome Assessment/Plan: By history with snoring and apnea, we strongly suspect she has obesity hypoventilation syndrome. She has chronic leg edema, suspected to be from R heart failure or from chronic lymphedema (and she was on Lasix at home). A limited Echo was done several days ago, report said normal LV and RV function. The patient never has had a CPAP machine at home, just Home O2. She has been referred to pulmonology and her friend Adriana discussed getting a van/wheelchair van to get her to go see the hand sander. 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 I have ordered a home BIPAP unit, which she needs to be discharged with, therefore we have been awaiting its arrival here. She is now accustomed to use a BIPAP and therefore she was transferred out of ICU to [facility] on 06/08. At midday today, we got news that her BiPAP was approved by her health insurance. In the afternoon, a rep from [facility] came and fitted her with her own personal BiPAP unit. She needs to spend the night on this BiPAP unit here with RT monitoring it and if everything is stable she can be discharged tomorrow. (2) CO2 narcosis Conclusion/Plan: Because of worsening somnolence several days ago, a blood gas was done, showed pH 7.26 PCO2 89 PO2 143 with saturation 99%. We learned that she is on continu ous home O2 at 2L/min, not 3L/min, and that she has never been on a CPAP machine at home (unlike H&P states). After that ABG, patient was transferred to the ICU for BiPAP treatment. Her ABG showed improvement. With BIPAP, she awoke and has been mentating, is conversant. She is on the BiPAP every night now, and also at daytime if she is hypersomnolent, alternating with n.c. use daytime. 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 This device will also reduce hospital readmissions. I have ordered a home BIPAP unit with the same company that provides her Home O2. Order submitted and we have been awaiting its arrival for fitting by RT, before she can be safely discharged, using BIPAP. Plan is to continue to use BiPAP nightly and also intermittently during the day, if she becomes somnolent. (3) PSVT Conclusion/Plan: On 06/07 at 6 PM she had PSVT. The rate was 160; lasted approx 15 sec. She was asymptomatic with it. This was possibly caused by her pulmonary disease and from volume depletion (from iv Lasix use), and being on a lower dose of carvedilol (which needed to be decreased when she was hypotensive). We started to increase back her carvedilol, while decreasing her ARB dose and changing iv Lasix to her usual po Lasix. She will be on different doses of these meds than what she was on previously. Following BMP, Mg daily (4) Generalized weakness She has preferred to sit upright in a chair. As she also became more alert, we ordered PT and OT to work with her. Patient has declined to work with OT and PT saying she is "too tired". We learned that the patient has caregivers at home that come in the morning and in the evening and in between her friend Adriana assists her in the house. The house is being retrofitted with special bars and equipment currently by a title closer. Patient no longer gets out of bed and stands or pivots into a chair. She requires being lifted with a Toma Lift from bed to chair. She also admitted to staff that she sits in her diaper and urinates and defecates into this, then waits several hours for a caregiver to come and clean her up. She no longer uses the toilet or bedside commode. I spoke to her about this yesterday and today and with input from PT and OT told her that she needs 24/7 caregivers, since it is not medically sound to sit in excrement or wet diapers for hours. She says that she would like to afford more caregivers but cannot afford them and she is also thinking about moving in with Adriana. I asked her why she is having her own house retrofitted therefore. I asked her if she would consider moving into a group home for 24/7 care and she says she would not because she loves her home too much. On 06/07 the patient asked me to speak to her nephew, who is a physician, an adult psychiatrist in [place], and who she wants to become her DPOA. I spoke to Dr. Von Butt at [phone] and described all the above. He agrees that she needs 24/7 care and says the family has been trying to convince her to do that for months. He also gave me an example that he learned of,where she fell out of her recliner several mos ago, and was found on the floor in her house where she had laid for 10 hours. He wondered if an APS report be submitted. He says he has never met Adriana and is not sure of her intentions. If the patient is able to stand and pivot or can get 24/7 caregivers at home, then a safe discharge will be to her house when the BIPAP unit arrives. Also, she has used a Adler since admission, which may now be chronic, if changing her diaper will have a delay. (5) Mobility impaired Conclusion/Plan: Due to muscle deconditioning, severe overweight, and lack of ambition on the patient's part. PT and OT were ordered for this patient at admission, but she did not want to do it. PT and OT were cancelled with transfer into ICU, and her hypersomnolence and hypotension. Then we resumed the PT and OT orders now, but patient has often declined to work with OT and PT saying she is "too tired". We learned that for the last 1 month, she requires being lifted with a Toma Lift from bed to chair and does not stand or bear weight even to pivot. If the patient is able to stand and pivot or if she can get 24/7 caregivers at home, then a safe discharge will be to her house when the BIPAP unit arrives, otherwise she needs full-time 24/7 care in a long winder tender care facility. (6) Hyponatremia Conclusion/Plan: Improving We doubted free water intoxication, as this woman has never had that problem before. But she may have had a problem with her use of Lasix, being forgetful with it from hypersomnolence, which we witnessed. Spot urine sodium was ordered to be checked and serum and urine osmolality ordered several days ago and sent out, the results are still pending We have been given her iv Normal Saline at different rates. Checking sodium frequently initially, now daily. Then we added Lasix iv and continuing a free water restriction (600 cc/day of water). This combination has improved her serum sodium and her leg edema. Lasix will go back to her usual po doses of 60 mg in a.m. 40 mg at noon. Following BMP daily (7) Hypertension Conclusion/Plan: Her syst BP was 89 when transferred to the ICU and HR was in the 40's in ICU. Her med list had her on Coreg 12.5 bid, Lasix 60 mga.m. 40 mg at noon, and Losartan 100 mg. These were all stopped when her BP dropped. Now BP is intemittently hypertensive and HR is 60. We used iv Lasix 60 mg daily. Will transition back to oral today We restarted Coreg, and it is at 9.375 bid and Losartan at 50 mg daily. Ww needed to adjust her carvedilol, while decreasing her ARB dose and changing iv Lasix to her usual po Lasix. Qualifiers: Hypertension type: primary hypertension Qualified Code(s): I10 - Essential (primary) hypertension (8) Pulmonary edema Conclusion/Plan: A chest x-ray showed pulmonary edema and she had positive fluid balance from iv fluids treating Hyponatremia. She has a history of chronic leg edema. We ordered Lasix iv and a Adler Following BMP, Mg daily Adler ordered to be removed on 06/07, but given her inability to stand to get on commode, and when in bed rolling and moving her is painful, she may need to have a chronic indwelling Adler. (9) UTI The urine is growing Klebsiella oxytoca, but she had no fever or elevated white cell count. Given that her altered mental status was worse, even despite some improvement in her serum sodium, we presumed that her mentation was altered from a UTI as well, and started an antibx: ordered Keflex 500mg 4 times daily for a 5-day course. (10) Chronic pain Conclusion/Plan: On intermittent opioid therapy. No long-acting therapy. Because of pain, we restartded her home med of Lyrica and Percocet on 06/07. Qualifiers: Chronic pain type: chronic pain syndrome Qualified Code(s): G89.4 - Chronic pain syndrome (11) Morbid Obesity, BMI 50-59 Conclusion/Plan: As per Hx, and she gained 6 kg, from the initial iv fluids. We then re-started her diuretics iv>> po. (12) Altered mental status Conclusion/Plan: Resolved and alertness improved after BIPAP started (in ICU) several days ago. Somnolence was likely multifactorial: from hyponatremia, from poss opioid abuse, or benzodiazepine abuse, from a Klebsiella, and some of her sleepiness could be from the Cymbalta and Lyrica, but most likely her somnolence was from CO2 narcosis. - Current Meds Current Meds: Current Medications Generic Name Dose Route Start Last Admin Trade Name Freq PRN Reason Stop Dose Admin Acetaminophen 650 mg 06/05/22 13:00 06/09/22 16:56 Acetaminophen 325 Mg Tablet PO 650 mg QID TAI Administration Hydrocodone Bitart/Acetaminophen 1 tab 06/05/22 09:31 06/08/22 10:27 Hydrocod/Acetam 7.5 Mg/325 Mg Tablet PO 1 tab BID PRN Administration PAIN Amitriptyline HCl 50 mg 06/05/22 21:00 06/08/22 21:46 Amitriptyline 25 Mg Tablet PO 50 mg QPM TAI Administration Aspirin 81 mg 06/04/22 09:00 06/09/22 08:48 Aspirin Ec 81 Mg Tablet PO 81 mg DAILY TAI Administration Carboxymethylcellulose 1 drops 06/07/22 09:03 06/07/22 11:24 Carboxymethylcellulose Ophth Drops EACHEYE 1 applic PRN PRN Administration Dry Eye Carvedilol 9.375 mg 06/08/22 09:00 06/09/22 08:48 Carvedilol 3.125 Mg Tablet PO 9.375 mg BID TAI Administration Duloxetine HCl 60 mg 06/07/22 11:00 06/09/22 08:48 Duloxetine 30 Mg Capsule PO 60 mg DAILY TAI Administration Enoxaparin Sodium 40 mg 06/03/22 09:00 06/09/22 08:49 Enoxaparin 40 Mg/0.4 Ml Syringe SUBQ 40 mg DAILY TAI Administration Furosemide 60 mg 06/08/22 09:00 06/09/22 08:48 Furosemide 20 Mg Tablet PO 60 mg [id number] TAI Administration Furosemide 40 mg 06/08/22 12:00 06/09/22 11:47 Furosemide 40 Mg Tablet PO 40 mg 1200 TAI Administration Ceftriaxone Sodium 1 gm/ 100 mls @ 200 mls/hr 06/04/22 14:44 06/09/22 09:20 Sodium Chloride IV Infused DAILY TAI Infusion Sodium Chloride 1,000 mls @ 60 mls/hr 06/05/22 11:50 06/09/22 18:35 Normal Saline 0.9% IV 60 mls/hr .[id number] TAI Administration Losartan Potassium 25 mg 06/08/22 09:00 06/09/22 08:48 Losartan 50 Mg Tablet PO 25 mg DAILY TAI Administration Methocarbamol 750 mg 06/07/22 11:00 06/07/22 12:28 Methocarbamol 500 Mg Tablet PO 750 mg QID PRN Administration Spasms Multi-Ingredient Ointment 1 applic 06/07/22 08:48 06/07/22 10:57 Zinc Oxide 20% Oint 30 Gm Tube TOP 1 applic PRN PRN Administration Skin Care Multivitamins/Minerals 1 tab 06/06/22 12:00 06/09/22 09:04 Multivitamin W/Minerals Tablet PO 1 tab DAILYWM TAI Administration Pantoprazole Sodium 40 mg 06/07/22 11:00 06/09/22 07:02 Pantoprazole 40 Mg Tablet PO 40 mg QDAC TAI Administration Pregabalin 50 mg 06/07/22 14:00 06/09/22 13:24 Pregabalin 25 Mg Capsule PO 50 mg TID TAI Administration Sodium Chloride 10 ml 06/02/22 17:15 06/08/22 17:43 Sodium Chloride Flush 0.9% 10 Ml Syringe IVP 60 ml PRN PRN Administration NEEDED PER PROVIDER ORDERS Sodium Chloride 10 ml 06/03/22 01:00 06/09/22 16:56 Sodium Chloride Flush 0.9% 10 Ml Syringe IVP Not Given 0100,0900,1700 TAI - Lab Result Fish Bone Diagrams: 06/07/22 05:10 06/09/22 06:56 - Additional Planning My Orders: My Active Orders 06/10/22 05:00 BMP - BASIC METABOLIC PANEL [CHEM] DAILYLAB Objective Vital Signs: Vital Signs - 24 hr 06/08/22 06/08/22 06/08/22 19:00 20:00 21:00 Temperature 36.4 C L Heart Rate 62 Heart Rate [ Brachial] Heart Rate [ 62 Monitoring electrodes] Heart Rate [ Radial] Respiratory 18 Rate Blood Pressure 142/57 H [Left Radial artery] Blood Pressure [Right Radial artery] O2 Saturation 97 If not protocol 2 2 : Oxygen Flow, liters/minute 06/08/22 06/09/22 06/09/22 22:48 00:16 00:30 Temperature 36.7 C Heart Rate 54 L Heart Rate [ 53 L Brachial] Heart Rate [ Monitoring electrodes] Heart Rate [ Radial] Respiratory 20 Rate Blood Pressure [Left Radial artery] Blood Pressure 111/40 L [Right Radial artery] O2 Saturation 98 If not protocol 2 : Oxygen Flow, liters/minute 06/09/22 06/09/22 06/09/22 05:30 07:00 07:06 Temperature 37.0 C Heart Rate 55 L Heart Rate [ 60 Brachial] Heart Rate [ Monitoring electrodes] Heart Rate [ Radial] Respiratory 20 Rate Blood Pressure 144/63 H [Left Radial artery] Blood Pressure [Right Radial artery] O2 Saturation 97 If not protocol 1 : Oxygen Flow, liters/minute 06/09/22 06/09/22 06/09/22 07:25 08:15 09:00 Temperature 36.7 C Heart Rate Heart Rate [ Brachial] Heart Rate [ Monitoring electrodes] Heart Rate [ 70 Radial] Respiratory 20 Rate Blood Pressure 148/72 H [Left Radial artery] Blood Pressure [Right Radial artery] O2 Saturation 93 If not protocol 1.5 1 2 : Oxygen Flow, liters/minute 06/09/22 06/09/22 06/09/22 11:00 11:37 12:31 Temperature 36.7 C Heart Rate Heart Rate [ Brachial] Heart Rate [ Monitoring electrodes] Heart Rate [ 61 Radial] Respiratory 20 Rate Blood Pressure 144/67 H [Left Radial artery] Blood Pressure [Right Radial artery] O2 Saturation 94 If not protocol 2 1 1 : Oxygen Flow, liters/minute 06/09/22 15:00 Temperature Heart Rate Heart Rate [ Brachial] Heart Rate [ Monitoring electrodes] Heart Rate [ Radial] Respiratory Rate Blood Pressure [Left Radial artery] Blood Pressure [Right Radial artery] O2 Saturation If not protocol 1 : Oxygen Flow, liters/minute Oxygen O2 Source [Without Activity] Nasal cannula O2 Source [With Activity] Nasal cannula O2 Source Nasal cannula I&O (Last 24 Hrs): Intake and Output Totals x24h 06/08/22 06/08/22 06/09/22 00:59 23:59 23:59 Intake Total 2780 Output Total 400 Balance 2380 - Results Results: Laboratory Results WBC 7.9 x10^3/uL (4.8-10.8) 06/07/22 05:10 RBC 3.66 10^6/uL (4.20-5.40) L 06/07/22 05:10 Hgb 10.9 g/dL (12.0-16.0) L 06/07/22 05:10 Hct 35.7 % (37.0-47.0) L 06/07/22 05:10 MCV 97.5 fL (81.0-99.0) 06/07/22 05:10 MCH 29.8 pg (27.0-31.0) 06/07/22 05:10 MCHC 30.5 g/dL (32.0-36.0) L 06/07/22 05:10 RDW 14.1 % (12.0-15.0) 06/07/22 05:10 Plt Count 188 10^3/uL (130-450) 06/07/22 05:10 MPV 10.8 fL (7.9-10.8) 06/07/22 05:10 Neut # (Auto) 6.0 10^3/uL (1.5-6.6) 06/07/22 05:10 Lymph # (Auto) 0.8 10^3/uL (1.5-3.5) L 06/07/22 05:10 Cole # (Auto) 0.9 10^3/uL (0.0-1.0) 06/07/22 05:10 Eos # (Auto) 0.2 10^3/uL (0.0-0.7) 06/07/22 05:10 Baso # (Auto) 0.0 10^3/uL (0.0-0.1) 06/07/22 05:10 Absolute Nucleated RBC 0.00 x10^3/uL 06/07/22 05:10 Nucleated RBC % 0.0 /100WBC 06/07/22 05:10 Bld Gas Analysis Time 0704 06/05/22 06:55 Sample Site LEFT RADIAL 06/05/22 06:55 ABG pH 7.41 (7.35-7.45) 06/05/22 06:55 ABG pCO2 61 mmHg (34-45) H* 06/05/22 06:55 ABG pO2 95 mmHg (80-100) 06/05/22 06:55 ABG HCO3 37.4 mmol/L (22.0-26.0) H 06/05/22 06:55 ABG Total CO2 39.3 MMOL/L (21.0-29.0) H* 06/05/22 06:55 ABG O2 Saturation 97 % (94-98) 06/05/22 06:55 ABG Base Excess 10.8 mmol/L (-2.0-3.0) H 06/05/22 06:55 Lester Test POSITIVE 06/05/22 06:55 VBG pH 7.401 (7.31-7.41) 06/08/22 06:40 Ionized Calcium 1.17 mmol/L (1.15-1.33) 06/08/22 06:40 Respiration Rate 16 b/min 06/04/22 12:20 O2 Delivery Device BiPAP 06/05/22 06:55 O2 Liters/Min 3.00 LPM 06/04/22 11:00 FiO2 30.00 06/05/22 06:55 EPAP 5 cmH2O 06/05/22 06:55 IPAP 16 cmH2O 06/05/22 06:55 Sodium 134 mmol/L (135-145) L 06/09/22 06:56 Potassium 4.1 mmol/L (3.5-5.0) 06/09/22 06:56 Chloride 87 mmol/L (101-111) L 06/09/22 06:56 Carbon Dioxide 40 mmol/L (21-32) H* 06/09/22 06:56 Anion Gap 7.0 (6-13) 06/09/22 06:56 BUN 15 mg/dL (6-20) 06/09/22 06:56 Creatinine 0.6 mg/dL (0.4-1.0) 06/09/22 06:56 Estimated GFR (MDRD) 96 (>89) 06/09/22 06:56 Glucose 92 mg/dL (70-100) 06/09/22 06:56 Serum Osmolality 254 mOsmol/kg (280-301) L 06/02/22 16:45 Calcium 8.8 mg/dL (8.5-10.3) 06/09/22 06:56 Phosphorus 3.6 mg/dL (2.5-4.6) 06/08/22 06:40 Magnesium 2.0 mg/dL (1.7-2.8) 06/08/22 06:40 Total Bilirubin 0.7 mg/dL (0.2-1.0) 06/02/22 16:31 AST 14 IU/L (10-42) 06/02/22 16:31 ALT 16 IU/L (10-60) 06/02/22 16:31 Alkaline Phosphatase 92 IU/L (42-121) 06/02/22 16:31 Total Protein 6.8 g/dL (6.7-8.2) 06/02/22 16:31 Albumin 3.8 g/dL (3.2-5.5) 06/02/22 16:31 Globulin 3.0 g/dL (2.1-4.2) 06/02/22 16:31 Albumin/Globulin Ratio 1.3 (1.0-2.2) 06/02/22 16:31 Lipase 26 U/L (22-51) 06/02/22 16:31 Urine Color YELLOW 06/02/22 16:45 Urine Clarity HAZY (CLEAR) 06/02/22 16:45 Urine pH 7.5 PH (5.0-7.5) 06/02/22 16:45 Ur Specific [place] 1.015 (1.002-1.030) 06/02/22 16:45 Urine Protein 30 mg/dL (NEGATIVE) H 06/02/22 16:45 Urine Glucose (UA) NEGATIVE mg/dL (NEGATIVE) 06/02/22 16:45 Urine Ketones TRACE mg/dL (NEGATIVE) 06/02/22 16:45 Urine Occult Blood SMALL (NEGATIVE) H 06/02/22 16:45 Urine Nitrite NEGATIVE (NEGATIVE) 06/02/22 16:45 Urine Bilirubin NEGATIVE (NEGATIVE) 06/02/22 16:45 Urine Urobilinogen 1 (NORMAL) E.U./dL (NORMAL) 06/02/22 16:45 Ur Leukocyte Esterase TRACE (NEGATIVE) H 06/02/22 16:45 Urine RBC 6-10 /HPF (0-5) H 06/02/22 16:45 Urine WBC 11-25 /HPF (0-5) H 06/02/22 16:45 Ur Squamous Epith Cells FEW Squamous (<= Few) 06/02/22 16:45 Urine Bacteria Moderate /HPF (None Seen) H 06/02/22 16:45 Ur Microscopic Review INDICATED 06/02/22 16:45 Urine Culture Comments INDICATED 06/02/22 16:45 Urine Osmolality 626 mOsmol/kg (.) 06/02/22 16:45 Nasal Screen MRSA (PCR) NEGATIVE (NEGATIVE) 06/04/22 14:58 SARS-CoV-2 (PCR) NOT DETECTED 06/02/22 18:00 - Procedures Procedures: Procedures CATARAC PHACOEMULS/ASPIR (04/27/14) INSERT LENS AT CATAR EXT (04/27/14) REPLACEMENT OF LEFT LENS WITH SYNTH SUB, PERC APPROACH (09/25/16)
[2022-06-09] MEDS: AMITRIPTYLINE 25 MG TABLET PO SCH (20:49)
[2022-06-10] MEDS: SODIUM CHLORIDE FLUSH 0.9% 10 ML SYRINGE IVP PRN (01:04)
[2022-06-10] MEDS: SODIUM CHLORIDE FLUSH 0.9% 10 ML SYRINGE IVP SCH ×2 (01:04→11:25)
[2022-06-10] MEDS: methocarbamoL 500 MG TABLET PO PRN (01:10)
[2022-06-10] MEDS: HYDROcod/ACETAM 7.5 MG/325 MG TABLET PO PRN (03:30)
[2022-06-10 05:42] LABS: CALCIUM 8.7 mg/dL (8.5-10.3); CREATININE 0.6 mg/dL (0.4-1.0); POTASSIUM 3.8 mmol/L (3.5-5.0)
[2022-06-10] MEDS: PANTOPRAZOLE 40 MG TABLET PO SCH (06:29)
[2022-06-10] MEDS: PREGABALIN 25 MG CAPSULE PO SCH ×2 (06:29→13:48)
[2022-06-10] MEDS: ENOXAPARIN 40 MG/0.4 ML SYRINGE SUBQ SCH (10:04)
[2022-06-10] MEDS: MULTIVITAMIN W/MINERALS TABLET PO SCH (10:04)
[2022-06-10] MEDS: DULoxetine 30 MG CAPSULE PO SCH (10:04)
[2022-06-10] MEDS: ASPIRIN EC 81 MG TABLET PO SCH (10:05)
[2022-06-10] MEDS: ACETAMINOPHEN 325 MG TABLET PO SCH ×2 (10:05→12:41)
[2022-06-10] MEDS: FUROSEMIDE 20 MG TABLET PO SCH (10:05)
[2022-06-10] MEDS: carvediloL 3.125 MG TABLET PO SCH (10:05)
[2022-06-10] MEDS: LOSARTAN 50 MG TABLET PO SCH (10:06)
[2022-06-10] MEDS: cefTRIAXone 1 GM in SODIUM CHLORIDE 0.9% MINIBAG 100 ML IV SCH (10:06)
--- NOTE | 2022-06-10 11:09 | DISCHARGE SUMMARY ---
"Discharge Summary Admit Date: 06/02/22 Discharge Date: 06/10/22 Discharging Provider: Bren Morales MD Primary Care Provider: BIANKA Quinn Code Status: Do Not Attempt Resuscitation Condition at Discharge: Fair Discharge Disposition: 01 Home, Self Care - DIAGNOSES Discharge Diagnoses with Status of Each Condition: 1. Metabolic encephalopathy secondary #2 2. CO2 narcosis 3. Obesity hypoventilation syndrome 4. PSVT 5. Generalized weakness due to deconditioning 6. Mobility impairment 7. Hyponatremia 8. Hypertension 9. Fluid overload 10. UTI 11. Chronic pain 12. Morbid obesity with a BMI of 50-59 - HPI History of Present Illness: This elderly female lives alone but has many caregivers. She also has a neighbor/friend named Adriana who helps take care of her. She is supposed to be on oxygen 3 L at baseline. She is also post to be on CPAP. She is noncompliant with both. She has mental illness and that she is a hoarder, and also has been going downhill for the last few weeks with regards to leg edema and leg pain. She is essentially bedbound and refuses to get out of chair or bed. She prefers to have her diapers changed. Seen in the walk-in clinic April 25 where she slipped in the tub and has transverse fractures. Seen in the ER May 13 for confusion lethargy due to hypercapnia. Discharged with Macrobid due to UTI. Her neighbor thought that she was good for her than usual and thought she had a UTI. They played phone tag with the doctor's office. At 1 point the patient was on with the doctors office and speech was so confused that the PCP office called EMS and brought her to the ER. She is described as obtunded, hypotensive, hypercapnic, possible UTI. Previous work-up May [address] of the head. Today her labs show hyponatremia of 117. Blood gas shows a pH of 7.34. PCO2 67. PO2 of 80 on 3 L nasal cannula. - CONSULTS | PROCEDURES Procedures: With small leftChest x-ray pleural effusion, no acute infiltrates, and on the second 1 no pneumothorax after right IJ has been placed. Echocardiogram was a technically very difficult study with very limited views of the left ventricle. Overall systolic function normal with an ejection fraction of 55 to 60%. Right ventricular systolic function appeared preserved. No pericardial effusion. Catheterized urine grew out Klebsiella oxytocin - HOSPITAL COURSE Hospital Course: The patient was admitted with another episode of confusion. Her neighbor and caregiver or at least caregiver coordinator felt that he was going to be another UTI. However in evaluating her we feel that she had CO2 narcosis from obesity hypoventilation syndrome. She is supposed to be on CPAP but is noncompliant with the machine and there is not one at home. She continues to have generalized weakness and prefers to be chair bound or bedbound. She does not want to cooperate with physical therapy. She was eventually transferred to ICU when hypersomnolence and hypotension continue to be problematic. At home she uses a Toma lift. Hyponatremia was treated with normal saline and IV Lasix. Hypotension resolved and she was back on Coreg at discharge but reduced losartan from 100 mg to 50 mg. Chest x-ray showed pulmonary edema at 1 point due to fluid overload for hypotension and she had to be diuresed. Urine grew out Klebsiella but she had no fever or elevated white cell count, and some of her mentation problems were felt to be possibly from UTI so she was treated with Keflex. She has a chronic pain problem and on intermittent opioid therapy. Mainly due to back and leg pain. She did want power of manager product established with a nephew and a code power of manager product with her neighbor Adriana. She was supposed to have done this on June 09 by signing paperwork. However at the time of discharge she had still not done so. I discharge this woman is 5 feet 7 inches tall, 148.5 kg. Bedbound and needs [facility] to get home. Temperature is 36.7. Blood pressure 171/72. Respirations 20. 93% saturated on 1 L. She is alert, oriented, and a vague historian. She knows why she is here, and cannot really explain why she does not want a work with physical therapy. All she knows is that she would like to go home and she does not want to be placed. Neck has no stiffness but difficult to assess for JVD because of obesity. Lungs have diminished breath sounds at the bases but are otherwise clear. She has a regular rate and rhythm. A large obese pannus of the abdomen with hypoactive bowel sounds, nontender. Extremities have trace edema and she is completely dependent to sit her up, and move her over to the [facility] gurney to get her home. Greater than 30 minutes was spent coordinating discharge, speaking to her caregiver Adriana. - ALLERGIES Allergies/Adverse Reactions: Allergies Allergy/AdvReac Type Severity Reaction Status Date / Time No Known Drug Allergies Allergy Verified 06/02/22 16:18 - MEDICATIONS Home Medications: Ambulatory Orders Medication Instructions Recorded Confirmed Omeprazole 20 mg PO BID 04/27/14 06/02/22 Aspirin [Aspir-Low] 81 mg PO DAILY 09/25/16 06/02/22 methocarbamoL [Methocarbamol] 750 mg PO QID PRN 05/05/19 06/02/22 Duloxetine HCl [Cymbalta] 60 mg PO DAILY 10/09/21 06/02/22 HYDROcodone/ACET 7.5/325 [[place] 1 tab PO BID PRN 10/09/21 06/02/22 7.5/325] carvediloL [Coreg] 12.5 mg PO BID 10/09/21 06/02/22 Amitriptyline HCl 50 mg PO QPM 04/03/22 06/02/22 Atorvastatin [Lipitor] 20 mg PO QPM 04/03/22 06/02/22 Furosemide [Lasix] 40 mg PO 1200 04/03/22 06/02/22 Furosemide [Lasix] 60 mg PO DAILY 04/03/22 06/02/22 Pregabalin 50 mg PO TID 06/02/22 06/02/22 Carboxymethylcellulose 1% Opht 1 drops EACHEYE PRN PRN ml 06/10/22 [Refresh 1% Ophth Drops] Losartan [Cozaar] 25 mg PO DAILY #15 tab 06/10/22 Zinc Oxide 20% Oint [Zinc Oxide] 1 applic TOP PRN PRN each 06/10/22 - LABS Result Diagrams: 06/07/22 05:10 06/10/22 05:00"
--- NOTE | 2022-06-10 11:13 | Discharge Plan ---
Discharge Plan Problem Reviewed?: Yes Disposition: Home, Self Care Condition: Fair Prescriptions: Losartan [Cozaar] 25 mg PO DAILY #15 tab Diet: Low Sodium Activity Restrictions: Activity as Tolerated Shower Restrictions: No Driving Restrictions: Yes (no driving) Assistance Devices: Wheelchair Health Concerns: You are an 81-year-old female that unfortunately has developed severe muscular deconditioning due to inability to ambulate. We think that your inability to ambulate is partly due to lack of motivation, morbid obesity, and chronic pain. You are now spending most of your time in a wheelchair or in bed. On top of this you also have a breathing problem called obesity hypoventilation syndrome the causes carbon dioxide to slowly rise in your bloodstream. When this slowly rises, you get sleepier, sleepier, hallucinate, and more confused. You were brought to the emergency room because of increasing sleepiness, confusion, and your neighbor Adriana thought it was a UTI. Over the next few days we realized that it was more your breathing problem and carbon dioxide. We have slowly stabilize this by getting a CPAP mask through a [employer]. That was delivered to the hospital the day before discharge. Overnight you did well without and cannot go home with a sleep mask. You have completed treatment for urinary tract infection. You have refused to work with physical therapy because it hurts too much. We do have concerns about your ability to stay in your own home. Much of it has to do with that you need more caregiving than what you were getting. But you will be going home. Plan of Treatment: 1. Please see your primary care provider, Ana Potts, in the next 1 to 2 weeks. Even if it is with a telemedicine visit. 2. You have a new power of employment law attorney with your nephew and that has been taking care of. 3. Please be compliant with your CPAP mask to make sure your carbon dioxide level does not get higher. 4. While here, your blood pressure was too low so we have adjusted your home medications. We have cut back your losartan from 100 mg a day to 25 mg a day. Carvedilol will remain at the same dose. Lasix will be 60 mg in the morning and 40 mg in the afternoon. We are also sending you home with zinc oxide cream as a barrier cream for your bottom. Think of it is a diaper rash ointment. And you also need refresh eyedrops for dry eyes. Care Goals: Your care goals are to remain in your own home from as long as possible. Your new power of employment law attorney and family will be working towards seeing if those care goals are realistic. Assessment: Patient seems to have poor insight, but at this time is requiring on the support of others including her friend and neighbor Adriana, and her new power of employment law attorney who is her nephew,to plan the next course of action No Smoking: If you smoke, Please STOP! Call for help. Follow-up with: Miryam Potts PA-C [Provider Admit Priv/Credential] -
[2022-06-10] MEDS: SODIUM CHLORIDE 0.9% 1,000 ML IV SCH (12:41)
[2022-06-10] MEDS: FUROSEMIDE 40 MG TABLET PO SCH (12:41)
[2022-06-10 17:14] VITALS: BP 171/72
== END 2022-06-10 17:15 | disposition home or self-care (01) | DRG 71 ==
LOC: EDUNIT# → ED 16:09 → MS2 17:15 → ICU 06-04 11:56 → MS2 06-08 21:15
PROVIDERS: ADMIT Specialist; ATTEND Specialist
PROC: 02HV33Z Insertion of Infusion Device into Superior Vena Cava, Percutaneous Approach (ICD-10-PCS; principal; 2022-06-04)
DX: N30.00 Acute cystitis without hematuria (principal); E66.01 Morbid (severe) obesity due to excess calories; G93.41 Metabolic encephalopathy; E66.2 Morbid (severe) obesity with alveolar hypoventilation; Z68.43 Body mass index [BMI] 50.0-59.9, adult; I47.1 Supraventricular tachycardia; E87.1 Hypo-osmolality and hyponatremia; N39.0 Urinary tract infection, site not specified; J81.1 Chronic pulmonary edema; I10 Essential (primary) hypertension; I25.10 Atherosclerotic heart disease of native coronary artery without angina pectoris; I87.8 Other specified disorders of veins; I95.9 Hypotension, unspecified; E78.00 Pure hypercholesterolemia, unspecified; E87.70 Fluid overload, unspecified; F42.3 Hoarding disorder; G89.4 Chronic pain syndrome; M19.90 Unspecified osteoarthritis, unspecified site; M54.9 Dorsalgia, unspecified; M79.606 Pain in leg, unspecified; K21.9 Gastro-esophageal reflux disease without esophagitis; H54.7 Unspecified visual loss; R06.89 Other abnormalities of breathing; R40.0 Somnolence; Z20.822 Contact with and (suspected) exposure to COVID-19; Z74.01 Bed confinement status; Z82.49 Family history of ischemic heart disease and other diseases of the circulatory system; Z83.3 Family history of diabetes mellitus; Z85.3 Personal history of malignant neoplasm of breast; Z90.49 Acquired absence of other specified parts of digestive tract; Z90.710 Acquired absence of both cervix and uterus; Z91.199 Patient's noncompliance with other medical treatment and regimen due to unspecified reason; Z92.21 Personal history of antineoplastic chemotherapy; Z92.3 Personal history of irradiation; Z99.81 Dependence on supplemental oxygen
CPT/HCPCS: 36415; 36600; 51701; 71045; 80048; 80053; 81001; 82330; 82803; 83690; 83735; 83930; 83935; 84100; 84132; 85025; 87077; 87086; 87150; 87181; 87635; 93308; 94660; 97110; 97163; 97164; 97167; 97168; 97530; 97535; 99283; 99285; A9270; J0131; J1650; 81003; 84300

== ENCOUNTER 2022-06-10 17:05 | Outpatient (CLI) | payer MEDICARE, BC | END 2022-06-10 17:06 | disposition home or self-care (01) | LOC: EMS 17:05 | PROVIDERS: ATTEND Specialist | DX: E87.1 Hypo-osmolality and hyponatremia (principal); R06.89 Other abnormalities of breathing; I10 Essential (primary) hypertension; N39.0 Urinary tract infection, site not specified; E66.01 Morbid (severe) obesity due to excess calories; Z74.01 Bed confinement status | CPT/HCPCS: A0425; A0428 ==

== ENCOUNTER → 2022-07-05 | Outpatient (CLI) | payer MEDICARE, BC | END | disposition short-term general hospital (02) | LOC: EMS 08:53 | DX: S01.81XA Laceration without foreign body of other part of head, initial encounter (principal); W20.8XXA Other cause of strike by thrown, projected or falling object, initial encounter; Y92.003 Bedroom of unspecified non-institutional (private) residence as the place of occurrence of the external cause; Z74.01 Bed confinement status; Z99.81 Dependence on supplemental oxygen | CPT/HCPCS: A0425; A0429 ==

== ENCOUNTER 2022-07-21 16:06 | Outpatient (CLI) | payer MEDICARE, BC | END 2022-07-21 16:07 | disposition critical access hospital (66) | LOC: EMS 16:06 | DX: R05.9 Cough, unspecified (principal); R06.89 Other abnormalities of breathing | CPT/HCPCS: A0425; A0427 ==

== ENCOUNTER 2022-07-21 16:22 | Emergency (ER) | payer MEDICARE, BC ==
[2022-07-21 16:49] LABS: BASOPHILS % (AUTO) 0.4 %; EOSINOPHILS # (AUTO) 0.1 10^3/uL (0.0-0.7); HCT - HEMATOCRIT 40.4 % (37.0-47.0); HGB - HEMOGLOBIN 11.9 g/dL (12.0-16.0); LYMPHOCYTES # (AUTO) 0.6 10^3/uL (1.5-3.5); MEAN CORPUSCULAR HGB CONC 29.5 g/dL (32.0-36.0); MEAN CORPUSCULAR VOLUME 98.3 fL (81.0-99.0); MEAN PLATELET VOLUME 11.1 fL (7.9-10.8); MONOCYTES # (AUTO) 1.1 10^3/uL (0.0-1.0); MONOCYTES % (AUTO) 15.7 %; NEUTROPHILS % (AUTO) 73.2 %; PLT - PLATELET COUNT 163 10^3/uL (130-450); RED BLOOD COUNT 4.11 10^6/uL (4.20-5.40); RED CELL DISTRIBUTION WIDTH 13.9 % (12.0-15.0); WHITE BLOOD COUNT 6.8 x10^3/uL (4.8-10.8)
--- NOTE | 2022-07-21 16:58 | ED Physician Documentation ---
PD HPI DYSPNEA - Stated complaint Stated Complaint: COUGH/SOA - Chief complaint Chief Complaint: Resp - History obtained from History obtained from: Patient - History of Present Illness Timing - details: Gradual onset Pain level max: 0 Pain level now: 0 Improved by: O2, Inhaler/neb - Additional information Additional information: Patient is an 81-year-old female who presents to the emergency department with cough and difficulty breathing x2 days. She is on 2 L of home O2 at baseline. Has caregivers to help her at baseline. No fevers. No chills. Mostly dry cough. Feels better after nebulizer treatment. She is no longer short of breath. Patient has a history of obesity hypoventilation syndrome, congestive heart failure and hypoxia. Review of Systems Ten Systems: 10 systems reviewed and negative Constitutional: denies: Fever, Chills Nose: denies: Rhinorrhea / runny nose, Congestion Throat: denies: Sore throat Cardiac: denies: Chest pain / pressure Skin: denies: Rash Musculoskeletal: denies: Neck pain, Back pain Neurologic: denies: Headache PD PAST MEDICAL HISTORY - Past Medical History Cardiovascular: Hypertension, High cholesterol, Coronary artery disease, Valve disorder, Other Respiratory: Shortness of breath, Sleep apnea, CPAP use Neuro: Peripheral neuropathy Endocrine/Autoimmune: Other GI: GERD, Other DONATIONS ATTENDANT: Breast cancer (Lumpectomy/XRT followed by adjuvant AC/T 2005) : Frequency HEENT: Chronic vision loss Psych: None Musculoskeletal: Osteoarthritis, Fibromyalgia, Chronic back pain, Other Derm: Rosacea - Past Surgical History Past Surgical History: Yes General: Cholecystectomy, Appendectomy, Colonoscopy /DONATIONS ATTENDANT: Hysterectomy, Oophrectomy, Other HEENT: Cataracts Derm: Skin cancer surgery - Present Medications Home Medications: Ambulatory Orders Medication Instructions Recorded Confirmed Omeprazole 20 mg PO BID 04/27/14 07/21/22 Aspirin [Aspir-Low] 81 mg PO DAILY 09/25/16 07/21/22 methocarbamoL [Methocarbamol] 750 mg PO QID PRN 05/05/19 07/21/22 Duloxetine HCl [Cymbalta] 60 mg PO DAILY 10/09/21 07/21/22 HYDROcodone/ACET 7.5/325 [[place] 1 tab PO BID PRN 10/09/21 07/21/22 7.5/325] carvediloL [Coreg] 12.5 mg PO BID 10/09/21 07/21/22 Amitriptyline HCl 50 mg PO QPM 04/03/22 07/21/22 Atorvastatin [Lipitor] 20 mg PO QPM 04/03/22 07/21/22 Furosemide [Lasix] 40 mg PO 1200 04/03/22 07/21/22 Furosemide [Lasix] 60 mg PO DAILY 04/03/22 07/21/22 Pregabalin 50 mg PO TID 06/02/22 07/21/22 Carboxymethylcellulose 1% Opht 1 drops EACHEYE PRN PRN ml 06/10/22 07/21/22 [Refresh 1% Ophth Drops] Losartan [Cozaar] 25 mg PO DAILY #15 tab 06/10/22 07/21/22 Zinc Oxide 20% Oint [Zinc Oxide] 1 applic TOP PRN PRN each 06/10/22 07/21/22 Albuterol Sulf [Ventolin Hfa 1 - 2 puffs INH Q4HR PRN #1 each 07/21/22 Inhaler] - Allergies Allergies/Adverse Reactions: Allergies Allergy/AdvReac Type Severity Reaction Status Date / Time No Known Drug Allergies Allergy Verified 07/21/22 16:36 - Social History Does the pt smoke?: No Smoking Status: Never smoker Does the pt drink ETOH?: No Does the pt have substance abuse?: Yes - Immunizations Immunizations are current?: Yes - POLST Patient has POLST: No POLST Status: DNR PD ED PE NORMAL - Vitals Vital signs reviewed: Yes - General General: Alert and oriented X 3, No acute distress - HEENT HEENT: Moist mucous membranes - Neck Neck: Supple, no meningeal sign - Cardiac Cardiac: RRR - Respiratory Respiratory: No respiratory distress, Clear bilaterally - Abdomen Abdomen: Soft, Non tender, Non distended - Derm Derm: Warm and dry - Extremities Extremities: No calf tenderness / cord, Other (2+ bilateral pitting edema. She is in compression stockings) - Neuro Neuro: Alert and oriented X 3 - Psych Psych: Normal mood, Normal affect Results - Vitals Vitals: Vital Signs - 24 hr 07/21/22 07/21/22 07/21/22 16:31 18:40 18:55 Temperature 37.0 C 36.6 C Heart Rate 72 70 74 Respiratory 16 24 16 Rate Blood Pressure 128/51 L 164/88 H O2 Saturation 100 95 If not protocol 3 2 : Oxygen Flow, liters/minute Oxygen O2 Source [Without Activity] Nasal cannula O2 Source [With Activity] Nasal cannula O2 Source Nasal cannula Oxygen Flow Rate 2 - Labs Labs: Laboratory Tests 07/21/22 07/21/22 07/21/22 16:40 16:44 16:44 WBC 6.8 RBC 4.11 L Hgb 11.9 L Hct 40.4 MCV 98.3 MCH 29.0 MCHC 29.5 L RDW 13.9 Plt Count 163 MPV 11.1 H Neut # (Auto) 5.0 Lymph # (Auto) 0.6 L [place] # (Auto) 1.1 H Eos # (Auto) 0.1 Baso # (Auto) 0.0 Absolute Nucleated RBC 0.00 Nucleated RBC % 0.0 Sodium 137 Potassium 3.8 Chloride 92 L Carbon Dioxide 37 H Anion Gap 8.0 BUN 21 H Creatinine 0.9 Estimated GFR (MDRD) 60 L Glucose 122 H Calcium 9.2 Total Bilirubin 0.4 AST 16 ALT 17 Alkaline Phosphatase 82 B-Natriuretic Peptide Total Protein 6.8 Albumin 3.5 Globulin 3.3 Albumin/Globulin Ratio 1.1 Nasal Adenovirus (PCR) NOT DETECTED Nasal B. parapertussis DNA (PCR) NOT DETECTED Nasal Coronavir 229E PCR NOT DETECTED Nasal Coronavir HKU1 PCR NOT DETECTED Nasal Coronavir NL63 PCR NOT DETECTED Nasal Coronavir OC43 PCR NOT DETECTED Nasal Enterovir/Rhinovir PCR NOT DETECTED Nasal Influenza B PCR NOT DETECTED Nasal Influenza A PCR NOT DETECTED Nasal Parainfluen 1 PCR NOT DETECTED Nasal Parainfluen 2 PCR NOT DETECTED Nasal Parainfluen 3 PCR NOT DETECTED Nasal Parainfluen 4 PCR NOT DETECTED Nasal RSV (PCR) NOT DETECTED Nasal B.pertussis DNA PCR NOT DETECTED Nasal C.pneumoniae (PCR) NOT DETECTED Ankit Human Metapneumo PCR NOT DETECTED Nasal M.pneumoniae (PCR) NOT DETECTED Nasal SARS-CoV-2 (PCR) DETECTED A 07/21/22 16:44 WBC RBC Hgb Hct MCV MCH MCHC RDW Plt Count MPV Neut # (Auto) Lymph # (Auto) [place] # (Auto) Eos # (Auto) Baso # (Auto) Absolute Nucleated RBC Nucleated RBC % Sodium Potassium Chloride Carbon Dioxide Anion Gap BUN Creatinine Estimated GFR (MDRD) Glucose Calcium Total Bilirubin AST ALT Alkaline Phosphatase B-Natriuretic Peptide 98 Total Protein Albumin Globulin Albumin/Globulin Ratio Nasal Adenovirus (PCR) Nasal B. parapertussis DNA (PCR) Nasal Coronavir 229E PCR Nasal Coronavir HKU1 PCR Nasal Coronavir NL63 PCR Nasal Coronavir OC43 PCR Nasal Enterovir/Rhinovir PCR Nasal Influenza B PCR Nasal Influenza A PCR Nasal Parainfluen 1 PCR Nasal Parainfluen 2 PCR Nasal Parainfluen 3 PCR Nasal Parainfluen 4 PCR Nasal RSV (PCR) Nasal B.pertussis DNA PCR Nasal C.pneumoniae (PCR) Ankit Human Metapneumo PCR Nasal M.pneumoniae (PCR) Nasal SARS-CoV-2 (PCR) - Rads (name of study) cxr Radiology: Final report received, See rad report PD Medical Decision Making - ED course Complexity details: reviewed results, re-evaluated patient, considered differential, d/w patient ED course: Patient is well-appearing, nontoxic. Afebrile. She has tested positive for COVID. [place] x-ray does not show any evidence of pneumonia. She is not requiring any increased oxygen. We will prescribe an inhaler for home and have her follow-up with her PCP for further care. She would like to take an antiv iral. She is COVID vaccinated. We will place her on molnupiravir. Patient counseled regarding signs and symptoms for which I believe and urgent re- evaluation would be necessary. Patient with good understanding of and agreement to plan and is comfortable going home at this time This document was made in part using voice recognition software. While efforts are made to proofread this document, sound alike and grammatical errors may occur. Departure - Departure Disposition: 01 Home, Self Care Clinical Impression: COVID-19 Condition: Good Instructions: ED Viral Syndrome Follow-Up: Frantz Mccarty MD [Primary Care Provider] - Within 1 week Prescriptions: Albuterol Sulf [Ventolin Hfa Inhaler] 1 - 2 puffs INH Q4HR PRN #1 each PRN Reason: Shortness Of Air/Wheezing Comments: You have tested positive For COVID today. Please follow-up with your doctor for further care. You have been given molnupiravir which is an antiviral therapy. An inhaler was also sent to [facility] for you. Please return if you worsen Discharge Date/Time: 07/21/22 19:48
[2022-07-21 17:03] LABS: ALBUMIN 3.5 g/dL (3.2-5.5); ALBUMIN/GLOBULIN RATIO 1.1 (1.0-2.2); BILIRUBIN,TOTAL 0.4 mg/dL (0.2-1.0); CALCIUM 9.2 mg/dL (8.5-10.3); CREATININE 0.9 mg/dL (0.4-1.0); POTASSIUM 3.8 mmol/L (3.5-5.0); TOTAL PROTEIN 6.8 g/dL (6.7-8.2)
--- NOTE | 2022-07-21 17:14 | XRAY Report ---
PROCEDURE: Chest 1 View X-Ray INDICATIONS: cough TECHNIQUE: One view of the chest was acquired. COMPARISON: June 04, 2022 FINDINGS: Surgical changes and devices: None. Lungs and pleura: Low lung volumes. Moderate diffuse lung disease and suspected small effusions. Mediastinum: Cardiomegaly Bones and chest wall: No suspicious bony lesions. Overlying soft tissues appear unremarkable. IMPRESSION: Low lung volumes are moderate diffuse lung disease, possibly edema versus atypical infection. Cardiom egaly and suspected small effusions. Consider future imaging surveillance to assess for resolution. Reviewed by: Christian Velazquez MD on 07/21/2022 4:12 PM [facility] Approved by: Christian Velazquez MD on 07/21/2022 4:12 PM [facility] Station ID: [id number]
[2022-07-21 17:54] LABS: CORONAVIRUS 229E-RESP PCR NOT DETECTED; CORONAVIRUS HKU1-RESP PCR NOT DETECTED; CORONAVIRUS NL63-RESP PCR NOT DETECTED; CORONAVIRUS OC43-RESP PCR NOT DETECTED
[2022-07-21 17:55] LABS: B. PARAPERTUSSIS- RESP PCR PAN NOT DETECTED; B. PERTUSSIS- RESP PCR PANEL NOT DETECTED; C. PNEUMONIAE- RESP PCR PANEL NOT DETECTED; HUMAN METAPNEUMOVIRUS NOT DETECTED; INFLUENZA A- RESP PCR PANEL NOT DETECTED; INFLUENZA B - RESP PCR PANEL NOT DETECTED; M. PNEUMONIAE- RESP PCR PANEL NOT DETECTED; PARAINFLUENZA VIRUS 1 NOT DETECTED; PARAINFLUENZA VIRUS 2 NOT DETECTED; PARAINFLUENZA VIRUS 3 NOT DETECTED; PARAINFLUENZA VIRUS 4 NOT DETECTED; RHINOVIRUS/ENTEROVIRUS NOT DETECTED; RSV- RESP PCR PANEL NOT DETECTED; SARS-CoV-2 -RESP PCR PANEL DETECTED
[2022-07-21] MEDS: ALBUTEROL 1 PUFF INH STA (18:40)
[2022-07-21] MEDS: MOLNUPIRAVIR PREPACK PO STA (18:51)
[2022-07-21 18:56] VITALS: BP 164/88
== END 2022-07-21 19:48 | disposition home or self-care (01) ==
LOC: EDUNIT# → ED 16:22
DX: U07.1 COVID-19 (principal); Z99.81 Dependence on supplemental oxygen
CPT/HCPCS: 36415; 71045; 80053; 83880; 85025; 87633; 94640; 94664; 99282; 99284; J3490

== ENCOUNTER 2022-07-21 19:37 | Outpatient (CLI) | payer MEDICARE, BC | END 2022-07-21 19:38 | disposition home or self-care (01) | LOC: EMS 19:37 | PROVIDERS: ATTEND Emergency Medicine | DX: U07.1 COVID-19 (principal); Z74.01 Bed confinement status | CPT/HCPCS: A0425; A0428 ==

== ENCOUNTER 2022-10-29 13:22 | Outpatient (CLI) | payer MEDICARE, BC ==
--- NOTE | 2022-10-29 14:34 | SLEEP CARE CONSULTATION ---
Information from patient questionnaire entered by Kelly Wilson. I have reviewed and concur with the information entered by Kelly Wilson. This document represents the service I personally performed and the decisions made by me, Lora Neri ARNP. History of Present Illness Service Date and Time: 10/29/2022 1322 Reason for Visit: New patient, Other (on Bipap for Obesity Hypoventilation Syndrome) Accompanied by: Caregiver Chief Complaint: reports: Other (DIAGNOTICED WHILE IN HOSPITAL) Date of Onset: 29YRS Usual bedtime: 11PM Time it takes to fall asleep: HOURS Snores at night: Yes Observed to quit breathing while asleep: No Sleeps alone due to snoring: No Number of times waking at night: 3 OR MORE Reasons for waking at night: reports: Pain, Other (UNKNOWN). denies: Choking, Gasping for air Toss, Turn, or Twitch while sleeping: Yes Recalls having dreams: No Usually gets out of bed at: 730AM Feels refreshed in the morning: No Morning headache: No Sleepy or fatigued during the day: Yes Ever fallen asleep while driving: No (does not drive) Takes day naps: Yes (45 mins for nap, 2 times a week) Dreams during day naps: No Prior sleep studies: Yes Year and Where: 3 over the last 30 yrs Additional HPI information: SHAYLEE CASTANON was diagnosed to have Obesity Hyperventilation syndrome and comes in today with caregiver to establish care for BIPAP therapy. - Parasomnia Symptoms Ever been unable to move upon waking from sleep: No Walks in sleep: No Talks in sleep: No Ever acted out dreams in sleep: No Ever felt weak in the knees when startled or emotional: No Bothered by creepy, crawly, restless sensations in legs: Yes Problems with memory or concentration: No CPAP Compliance Data - Data Reviewed with Patient Average duration of nightly device use: 10 hours 48 minutes Compliance rate %: 100 (/ days used) Current pressure setting (cmH2O): 25/4 with 4 pressure support Average residual AHI: 0.9 Central apnea: 0.1 Obstructive apnea: 0.5 Average large leak: 7.4 l/min Compliance data discussion: She is set up to get supplies at [facility], but has not been getting supplies. She is using a full face, [employer] Airfit F20. She has a [employer] AirCurve 10 VAuto s/u 06/2022. Subjective Patient concerns: reports: mask discomfort (itching on the side of her nose). 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 Patient is Single and lives in . Have you smoked in the past 12 months: No Alcohol use: No Caffeine use: Yes Caffeine amount and frequency: OCCASIONAL Coke Family History Family history of sleep disordered breathing: No (Father could not sleep well) Allergies and Home Medications Known drug allergies: No Drug allergies reviewed: Yes Home medication list reviewed: Yes (see list updated in EMR) Allergy and home medication list: Allergies No Known Drug Allergies Allergy (Verified 10/28/22 16:39) Review of Systems Weight gain over past 5 years: 30 Cardiovascular: reports: high blood pressure, leg or foot swelling Respiratory: reports: shortness of breath Gastrointestinal: reports: heartburn Urinary: reports: incontinence Neurological: reports: gait or balance problems. denies: headaches Psychiatric: denies: anxiety, depression Endocrine: reports: increased appetite. denies: thyroid disease Musculoskeletal: reports: joint pain, back pain, joint swelling, muscle pain or cramping, mobility problems Physical Exam Vital signs obtained and entered by: KELLY Mas MA Blood Pressure: 124/64 (LEFT ARM) Cuff size: long Heart Rate: 63 O2 Saturation: 98 Height: 5 ft 7 in Weight: 290 lb Body Mass Index: 45.4 BMI Classification: Morbidly Obese Neck circumference: 19.75 Heart: regular rate and rhythm Lungs: clear bilaterally (upper lobes) Impression and Plan 1. Obesity Hypoventilation Syndrome. She was diagnosed during a hospital stay when admitted with altered mental status. Patient's BMI is 45.4. In the hospital (in June 2022), she had hypercapnia with levels greater then 45 mmHg (PCO2 67 on admission). She was diagnosed with Obesity Hypoventilation Syndrome and place on a BIPAP with improvement of her hypercapnia. She is currently on BIPAP with pressure set at 24/4/4 with residual AHI of 0.9. She is alert and appears to be a fair historian. Her only complaint is the discomfort of wearing her mask. The sides of her nose get very itchy but her skin does not appear red or have any rash. I showed her a full face hybrid mask by [employer] (Airfit F30i) and she would like to try it. I will write for a mask fitting with update of supplies by her DME, Malena. She will follow up in 3 months. 2. Obesity, unspecified. Currently patients BMI is 45.4. Obesity increases the risk of apnea, CPAP pressure requirements and overall health risks especially cardiovascular and diabetes. Thus patient is advised to lose weight. * Continue BIPAP pressure at 24/4 cmH2O with pressure support 4 cmH2O * Mask fitting for [employer] Airfit F30i. * Update prescription * Notify me if snoring with mask or feeling that the pressure is too much or too little * Attempt to lose weight * Call this office if any problems using CPAP * Return for follow up in 3 months, or sooner if concerns arise Counseling Topics: Weight loss health impact Visit Type: In Office Other Participants: Caregiver Time Spent with Patient (minutes): 34 Provider Statement: I spent 100% of the Face to Face Visit with the patient with greater than 50% spent counseling the patient and coordination of care.
[2022-10-29 14:35] VITALS: BP 124/64
== END 2022-10-29 13:23 | disposition home or self-care (01) ==
LOC: SC 13:22
PROVIDERS: ATTEND Nurse Practitioner Family
DX: E66.2 Morbid (severe) obesity with alveolar hypoventilation (principal); Z68.42 Body mass index [BMI] 45.0-49.9, adult
CPT/HCPCS: 99203; G0463; 99212

== ENCOUNTER 2022-12-04 09:29 | Outpatient (CLI) | payer MEDICARE, BC ==
--- NOTE | 2022-12-05 10:17 | Mammography Report ---
BILATERAL DIGITAL SCREENING MAMMOGRAM: 12/04/2022 CLINICAL: Routine screening. Personal history of right breast cancer. Comparison is made to exams dated: 10/19/2020 mammogram - [facility], 11/30/2017 ravindra mogram, 09/08/2016 mammogram, 08/27/2015 mammogram, 06/19/2014 mammogram, and 04/20/2013 mammogram - [facility]. There are scattered areas of fibroglandular density in both breasts (category b / 25%-50% glandular t issue). There are benign calcifications in the right breast. There also are benign post operative findings i n the right breast. Additionally, there is a biopsy clip in the left breast. No significant masses, calcifications, or other findings are seen in either breast. There has been no significant interval change. IMPRESSION: BENIGN There is no mammographic evidence of malignancy. A 1 year screening mammogram is recommended. This exam was interpreted at Station ID: [id number]. NOTE: For mammograms, a report in lay terms will be sent to the patient. Approximately 15% of breast malignancies will not be visualized mammographically. In the management of a palpable breast mass, a negative mammogram must not discourage biopsy of a clinically suspicious lesion. Electronically Signed By: Emily levin/mattie:12/04/2022 15:50:08 letter sent: No_Letter ACR BI-RADS Category 2: Benign Finding(s) 3342F PARENCHYMAL PATTERN: (A) - The breast(s) demonstrate(s) scattered fibroglandular densities. BI-RADS CATEGORY: (2) - 2 Mammogram [id number] 1 year screening LATERALITY: (B)
== END 2022-12-04 09:30 | disposition home or self-care (01) ==
LOC: DI 09:29
PROVIDERS: ATTEND Physician Assistant
DX: Z12.31 Encounter for screening mammogram for malignant neoplasm of breast (principal); Z85.3 Personal history of malignant neoplasm of breast

== ENCOUNTER 2023-01-03 11:45 | Outpatient (CLI) | payer MEDICARE, BC | END 2023-01-03 23:59 | disposition critical access hospital (66) | LOC: EMS 11:45 | DX: R06.02 Shortness of breath (principal); R05.9 Cough, unspecified; Z99.81 Dependence on supplemental oxygen | CPT/HCPCS: A0425; A0427 ==

== ENCOUNTER 2023-01-03 12:06 | Inpatient (IN) | payer MEDICARE, BC ==
[2023-01-03] MEDS ORDERED: IPRATROPIUM/ALBUTEROL 3 ML NEB INH STA ×2 (12:09→16:45)
--- NOTE | 2023-01-03 12:13 | ED Physician Documentation ---
PD HPI DYSPNEA - Stated complaint Stated Complaint: SOA - History obtained from History obtained from: Patient, EMS - History of Present Illness Timing - onset: Yesterday (The patient states she is really noticed a considerable increase in her dyspnea from yesterday into today. Perhaps a slight increase over the last few days. No fevers. She has had cough. Typically sedentary and nonambulatory. Caregivers at home. Primarily treated f or CHF but h/o asthma.) Timing - onset during: Rest Timing - duration: Days (1-2) Timing - details: Gradual onset, Still present Inciting event(s): Immobilization/travel (she is typically bedridden.). No: Out of meds, URI Improved by: O2 Associated symptoms: Cough, Wheezing, Bilateral edema (chronic not noted acutely worse per patient. She is nonambulatory so not daily weights.). No: Fever, Hemoptysis Review of Systems Constitutional: reports: Myalgias. denies: Fever, Chills Nose: reports: Rhinorrhea / runny nose. denies: Congestion Throat: denies: Sore throat Cardiac: reports: Pedal edema (chronic). denies: Chest pain / pressure, Palpitations, Calf pain Respiratory: reports: Dyspnea, Cough, Wheezing GI: denies: Abdominal Pain, Vomiting, Diarrhea Neurologic: reports: Generalized weakness (chronic and is bedridden usually.) PD PAST MEDICAL HISTORY - Past Medical History Cardiovascular: Hypertension, High cholesterol, Coronary artery disease, Valve disorder, Other Respiratory: Shortness of breath, Sleep apnea, CPAP use Neuro: Peripheral neuropathy Endocrine/Autoimmune: Other GI: GERD, Other [employer]: Breast cancer (Lumpectomy/XRT followed by adjuvant AC/T 2005) : Frequency HEENT: Chronic vision loss Psych: None Musculoskeletal: Osteoarthritis, Fibromyalgia, Chronic back pain, Other Derm: Rosacea - Past Surgical History Past Surgical History: Yes General: Cholecystectomy, Appendectomy, Colonoscopy /[employer]: Hysterectomy, Oophrectomy, Other HEENT: Cataracts Derm: Skin cancer surgery - Present Medications Home Medications: Ambulatory Orders Medication Instructions Recorded Confirmed Omeprazole 20 mg PO BID 04/27/14 12/05/22 Aspirin [Aspir-Low] 81 mg PO DAILY 09/25/16 12/05/22 HYDROcodone/ACET 7.5/325 [[place] 1 tab PO BID PRN 10/09/21 12/05/22 7.5/325] carvediloL [Coreg] 12.5 mg PO BID 10/09/21 12/05/22 Amitriptyline HCl 50 mg PO QPM 04/03/22 12/05/22 Atorvastatin [Lipitor] 20 mg PO QPM 04/03/22 12/05/22 Furosemide [Lasix] 40 mg PO 1200 04/03/22 12/05/22 Furosemide [Lasix] 75 mg PO DAILY 04/03/22 12/05/22 Pregabalin 50 mg PO TID 06/02/22 12/05/22 Carboxymethylcellulose 1% Opht 1 drops EACHEYE PRN PRN ml 06/10/22 12/05/22 [Refresh 1% Ophth Drops] Losartan [Cozaar] 25 mg PO DAILY #15 tab 06/10/22 12/05/22 Zinc Oxide 20% Oint [Zinc Oxide] 1 applic TOP PRN PRN each 06/10/22 12/05/22 - Allergies Allergies/Adverse Reactions: Allergies Allergy/AdvReac Type Severity Reaction Status Date / Time No Known Drug Allergies Allergy Verified 01/03/23 12:16 - Social History Does the pt smoke?: No Smoking Status: Never smoker Does the pt drink ETOH?: No Does the pt have substance abuse?: Yes - Immunizations Immunizations are current?: Yes - POLST Patient has POLST: No POLST Status: DNR PD ED PE NORMAL - Vitals Vital signs reviewed: Yes (O2 sat 86 to 88% on 2 L, 91-93 on 3 L) - General General: Alert and oriented X 3, No acute distress (She is able to talk in sentences but does have some laboring of breathing with a prolonged expiratory phase with wheezing. She does not appear anxious.), Well developed/nourished - HEENT HEENT: Moist mucous membranes, Pharynx benign - Neck Neck: Supple, no meningeal sign, No adenopathy - Cardiac Cardiac: RRR, No murmur - Respiratory Respiratory: No respiratory distress (She is able to talk in sentences but there is prolonged expiratory phase and she is uncomfortable reclining. Does not appear tiring.). No: Clear bilaterally (There is a cacophony of coarse sounds as well as wheezes and crackles perihilar as well as both lung boo.) - Abdomen Abdomen: Soft, Non tender - Back Back: No CVA TTP - Derm Derm: Normal color, Warm and dry - Extremities Extremities: Normal ROM s pain, No calf tenderness / cord, Other (some edema in both legs with compressive stockings in place. No calf tenderness. Pt states swelling is at baseline amount. ) - Neuro Neuro: Alert and oriented X 3, Normal speech, Other (general weakness of both legs. ) Eye Opening: Spontaneous Motor: Obeys Commands Verbal: Oriented GCS Score: 15 Results - Vitals Vitals: Vital Signs - 24 hr 01/03/23 01/03/23 01/03/23 12:05 12:08 12:39 Temperature 36.9 C Heart Rate 75 72 Respiratory 15 20 Rate Blood Pressure 137/63 H O2 Saturation 88 L 91 L If not protocol 2 2.5 : Oxygen Flow, liters/minute 01/03/23 01/03/23 01/03/23 13:47 14:20 16:47 Temperature Heart Rate 89 89 72 Respiratory 21 18 21 Rate Blood Pressure 141/42 H 108/58 L O2 Saturation 92 78 L If not protocol 3 2 2 : Oxygen Flow, liters/minute 01/03/23 16:56 Temperature Heart Rate 68 Respiratory 16 Rate Blood Pressure O2 Saturation If not protocol 4 : Oxygen Flow, liters/minute Oxygen O2 Source [] Nasal cannula O2 Source [] Nasal cannula O2 Source Nasal cannula Oxygen Flow Rate 3 - Labs Labs: Laboratory Tests 01/03/23 01/03/23 01/03/23 12:21 12:21 12:21 WBC 17.2 H RBC 4.12 L Hgb 12.5 Hct 40.5 MCV 98.3 MCH 30.3 MCHC 30.9 L RDW 13.8 Plt Count 227 MPV 11.4 H Neut # (Auto) 14.7 H Lymph # (Auto) 1.0 L [place] # (Auto) 1.2 H Eos # (Auto) 0.2 Baso # (Auto) 0.1 Absolute Nucleated RBC 0.00 Nucleated RBC % 0.0 Sodium 140 Potassium 4.1 Chloride 96 L Carbon Dioxide 35 H Anion Gap 9.0 BUN 19 Creatinine 0.7 Estimated GFR (MDRD) 80 L Glucose 157 H Calcium 9.2 Magnesium 1.8 Total Bilirubin 0.6 AST 17 ALT 19 Alkaline Phosphatase 101 Troponin I High Sens B-Natriuretic Peptide 225 H Total Protein 7.6 Albumin 3.6 Globulin 4.0 Albumin/Globulin Ratio 0.9 L Lipase 31 Nasal Adenovirus (PCR) Nasal B. parapertussis DNA (PCR) Nasal Coronavir 229E PCR Nasal Coronavir HKU1 PCR Nasal Coronavir NL63 PCR Nasal Coronavir OC43 PCR Nasal Enterovir/Rhinovir PCR Nasal Influenza B PCR Nasal Influenza A PCR Nasal Parainfluen 1 PCR Nasal Parainfluen 2 PCR Nasal Parainfluen 3 PCR Nasal Parainfluen 4 PCR Nasal RSV (PCR) Nasal B.pertussis DNA PCR Nasal C.pneumoniae (PCR) Ankit Human Metapneumo PCR Nasal M.pneumoniae (PCR) Nasal SARS-CoV-2 (PCR) 01/03/23 01/03/23 12:21 12:25 WBC RBC Hgb Hct MCV MCH MCHC RDW Plt Count MPV Neut # (Auto) Lymph # (Auto) [place] # (Auto) Eos # (Auto) Baso # (Auto) Absolute Nucleated RBC Nucleated RBC % Sodium Potassium Chloride Carbon Dioxide Anion Gap BUN Creatinine Estimated GFR (MDRD) Glucose Calcium Magnesium Total Bilirubin AST ALT Alkaline Phosphatase Troponin I High Sens 20.3 H* B-Natriuretic Peptide Total Protein Albumin Globulin Albumin/Globulin Ratio Lipase Nasal Adenovirus (PCR) NOT DETECTED Nasal B. parapertussis DNA (PCR) NOT DETECTED Nasal Coronavir 229E PCR NOT DETECTED Nasal Coronavir HKU1 PCR NOT DETECTED Nasal Coronavir NL63 PCR NOT DETECTED Nasal Coronavir OC43 PCR NOT DETECTED Nasal Enterovir/Rhinovir PCR NOT DETECTED Nasal Influenza B PCR NOT DETECTED Nasal Influenza A PCR NOT DETECTED Nasal Parainfluen 1 PCR NOT DETECTED Nasal Parainfluen 2 PCR NOT DETECTED Nasal Parainfluen 3 PCR NOT DETECTED Nasal Parainfluen 4 PCR NOT DETECTED Nasal RSV (PCR) NOT DETECTED Nasal B.pertussis DNA PCR NOT DETECTED Nasal C.pneumoniae (PCR) NOT DETECTED Ankit Human Metapneumo PCR NOT DETECTED Nasal M.pneumoniae (PCR) NOT DETECTED Nasal SARS-CoV-2 (PCR) NOT DETECTED - Rads (name of study) chest xray Relevant Findings:: Prelim report reviewed, EMP independent interpretation of test (cardiomegaly. No significant CHF. No infiltrates. ), See rad report PD Medical Decision Making - ED course Complexity details: re-evaluated patient (Still with fine crackles at the bases but improved breathing effort. Less wheezing but still moderate.), considered differential (There is a combination of sounds with coarse bronchial phlegm as well as some general coarse sounds both upper lung boo, diffuse expiratory wheezing and some crackles at the bases.), d/w patient Reviewed Lab Results: CXR does not show notable CHF and BNP is only mildly elevated. Resp panel is negative. WBC is elevated at 17K. ED course: The patient presents with increased breathing problems since the last 1 or 2 days. Worse today. History of CHF. Also history of seasonal allergies. She has not felt ill such as fever sore throat or chills. She has inhalers at home but denies not need them regularly and has not used them for a year or so. At this point her symptoms actually sound more wheezing and coarse coughing and congestion. There is certainly some fine crackles at the bases in the history of CHF so there can be concomitant CHF as well. She had been given Lasix prehospital and a PureWick was applied here in the ER. She has put out 700 mL of light yellow urine. However there is still the wheezing and coarse sounds along with a lower oxygen level than baseline. She is on 2 L nasal cannula at home and CPAP at night. Currently here in the ER she is 86 to 88% saturations still after nebulizer treatment and the diuresis on 2 L. On 3 L nasal cannula she is up to 93%. I think there is a combination of CHF and either COPD or allergies or a viral type illness. However we cannot exclude a bacterial infection as her PCR panel is negative. There is no infiltrate on chest x-ray but I would still be concern for early pneumonia versus bronchitis rather than reactive airway. We will give another nebulizer treatment. She is maintained on a higher oxygen level. She still has enough abnormal lung sounds to be concerned. I will add antibiotic for concern of bacterial infection. She does have the CHF so I opted for Levaquin rather than the Zithromax and Rocephin as that higher volume and salt load. We will give the hospitalist to call when there is a bed available which should be in the next couple of hours. I feel the patient is still symptomatic and has enough findings that would predict her being worse through the afternoon or at risk for that I do not feel she is improved enough for discharge but should be hospitalized. Repeated neb treatment and has had about 700 ml urine out. Still with sats to 88% on 2 lpm NC. Sats 93% on 3 lpm. Went to the room at request of nursing as the patient's oxygenation was decreasing. She had been doing well on the 3 L nasal cannula. She states she is feeling wheezy or and is having some congested cough. Evaluation of her pure wick and urine output is 1200 mL so she certainly has the diuresed well on just the diuretic dose from the EMS. Exam of the patient shows expiratory prolonged phase and wheezing with also some bronchial and upper airway congested and phlegmatic sounds. She was able to cough up some of the clear sputum and we did a DuoNeb repeat treatment. This improved her symptoms. She had initially been down to 78% saturations which had just been for a very brief time. We had placed her on higher oxygen pending the nebulizer treatment and with the neb treatment and some sputum production, she is now back to 94% sats and breathing more comfortably on now 4 L nasal cannula. I think she had some mucous plugging and some bronchospasm. Her breathing looks good now and I feel comfortable with her oxygenation and ventilation. - Critical Care Time(min): 45 Comments: Hypoxic with work of breathing with likely some element of CHF but mostly bronchopneumonic symptoms. She was having periodic desaturations and required multiple nebulizers and repeat evaluation. Concern for adequate ventilation required repeat assessments of ventilation effort and oxygenation. Time Includes: Direct patient care, Reassess patient, Document care Departure - Departure Disposition: [facility] DC/Xfer Clinical Impression: Hypoxia, Difficulty breathing, Bronchitis with acute wheezing CHF (congestive heart failure) Qualifiers: Heart failure type: unspecified Heart failure chronicity: chronic Qualified Code(s): I50.9 - Heart failure, unspecified Condition: Stable Record reviewed to determine appropriate education?: Yes
[2023-01-03 12:27] LABS: BASOPHILS # (AUTO) 0.1 10^3/uL (0.0-0.1); BASOPHILS % (AUTO) 0.4 %; EOSINOPHILS # (AUTO) 0.2 10^3/uL (0.0-0.7); EOSINOPHILS % (AUTO) 0.9 %; HCT - HEMATOCRIT 40.5 % (37.0-47.0); HGB - HEMOGLOBIN 12.5 g/dL (12.0-16.0); LYMPHOCYTES % (AUTO) 5.6 %; MEAN CORPUSCULAR HEMOGLOBIN 30.3 pg (27.0-31.0); MEAN CORPUSCULAR HGB CONC 30.9 g/dL (32.0-36.0); MEAN CORPUSCULAR VOLUME 98.3 fL (81.0-99.0); MEAN PLATELET VOLUME 11.4 fL (7.9-10.8); MONOCYTES # (AUTO) 1.2 10^3/uL (0.0-1.0); MONOCYTES % (AUTO) 6.9 %; NEUTROPHILS # (AUTO) 14.7 10^3/uL (1.5-6.6); NEUTROPHILS % (AUTO) 85.4 %; PLT - PLATELET COUNT 227 10^3/uL (130-450); RED BLOOD COUNT 4.12 10^6/uL (4.20-5.40); RED CELL DISTRIBUTION WIDTH 13.8 % (12.0-15.0); WHITE BLOOD COUNT 17.2 x10^3/uL (4.8-10.8)
[2023-01-03 12:39] LABS: ALBUMIN 3.6 g/dL (3.2-5.5); ALBUMIN/GLOBULIN RATIO 0.9 (1.0-2.2); BILIRUBIN,TOTAL 0.6 mg/dL (0.2-1.0); CALCIUM 9.2 mg/dL (8.5-10.3); CREATININE 0.7 mg/dL (0.4-1.0); MAGNESIUM 1.8 mg/dL (1.7-2.8); POTASSIUM 4.1 mmol/L (3.5-5.0); TOTAL PROTEIN 7.6 g/dL (6.7-8.2)
--- NOTE | 2023-01-03 12:43 | XRAY Report ---
PROCEDURE: Chest 1 View X-Ray INDICATIONS: chest pain TECHNIQUE: One view of the chest was acquired. COMPARISON: None. FINDINGS: Surgical changes and devices: Surgical clips are seen in right axilla. Lungs and pleura: No pleural effusions or pneumothorax. Lungs are clear. Mediastinum: Mediastinal contours appear normal. Heart size is enlarged. Bones and chest wall: No suspicious bony lesions. Overlying soft tissues appear unremarkable. IMPRESSION: Cardiomegaly. No acute cardiopulmonary pathology. Reviewed by: Roberth Hendrickson MD on 01/03/2023 12:42 PM PDT Approved by: Roberth Hendrickson MD on 01/03/2023 12:42 PM PDT Station ID: [id number]
--- OUTSIDE RECORDS SUMMARY | 2023-01-03 12:57 | EXTERNAL MEDICAL SUMMARY RPT | Continuity of Care Document ---
Author Name Unknown Address [address] [place] [address] Phone Organization [facility] Address [address] [place] [address] Phone Care Team Providers Care Certified Detention Deputy Name Role Phone Miryam Potts Unavailable Unavailable Problems date description facility 2022-10-07 10:25 Low back pain, unspecified [facility] Results/Labs test date author facility value unit interpretation Result panel 1 (unknown) (no date) (unknown) (unknown) (no value) (units unknown) (unknown) (unknown) (no date) (unknown) (unknown) (0=absent, 1=s light response, 2=brisk/normal, 3=very brisk, 4=clonus) (units unknown) (unknown) (unknown) (no date) (unknown) (unknown) (segments are from the International Standards for Neurological Classification (units unknown) (unknown) (unknown) (no date) (unknown) (unknown) - Activity: Co ntinue activity as tolerated. [] (units unknown) (unknown) (unknown) (no date) (unknown) (unknown) - Chiropractor , acupuncture[] (units unknown) (unknown) (unknown) (no date) (unknown) (unknown) - Continues cl inician directed home exercise program including exercises learned (units unknown) (unknown) (unknown) (no date) (unknown) (unknown) - Education: C auda equina and associated symptoms, including motor weakness, (units unknown) (unknown) (unknown) (no date) (unknown) (unknown) - FADIR: Unabl e to assess (units unknown) (unknown) (unknown) (no date) (unknown) (unknown) - Follow-up: [] (uni ts unknown) (unknown) (unknown) (no date) (unknown) (unknown) - Hip ROM is: Unable to assess (units unknown) (unknown) (unknown) (no date) (unknown) (unknown) - I discussed risks, benefits and side effects. Additionally, patient was (units unknown) (unknown) (unknown) (no date) (unknown) (unknown) - Imaging: No new imaging indicated at this time. [] (units unknown) (unknown) (unknown) (no date) (unknown) (unknown) - Interventional/Surgica l procedures: None indicated at this time. [] (units unknown) (unknown) (unknown) (no date) (unknown) (unknown) - Lumbar facet loading: Unable to assess (units unknown) (unknown) (unknown) (no date) (unknown) (unknown) - Medications: No new prescription at this time. Patient will continue current (units unknown) (unknown) (unknown) (no date) (unknown) (unknown) - Medications: acetaminophen, NSAIDS, neuropathics, muscle relaxants [] (units unknown) (unknown) (unknown) (no date) (unknown) (unknown) - Physical The rapy: Completed 6 week course in the last 6 months OR Patient (units unknown) (unknown) (unknown) (no date) (unknown) (unknown) - Physical therapy/modalities/DME : Patient will likely benefit from physical (units unknown) (unknown) (unknown) (no date) (unknown) (unknown) - Prescription provided and uptitration instructions given if necessary. [] (units unknown) (unknown) (unknown) (no date) (unknown) (unknown) - Previous [] on [] provided []% relief of pain for []. During that time patient (units unknown) (unknown) (unknown) (no date) (unknown) (unknown) - Referrals: N one indicated at this time. [] (units unknown) (unknown) (unknown) (no date) (unknown) (unknown) - SIJ provocat ion testing: Unable to assess (units unknown) (unknown) (unknown) (no date) (unknown) (unknown) - Seated strai ght Leg Raise: Negative bilaterally (units unknown) (unknown) (unknown) (no date) (unknown) (unknown) 08/27/22 (units unknown) (unknown) (unknown) (no date) (unknown) (unknown) 1. Lower lumba r facet arthropathy. (units unknown) (unknown) (unknown) (no date) (unknown) (unknown) 2. No abnormal motion on flexion and extension. (units unknown) (unknown) (unknown) (no date) (unknown) (unknown) 3. No pars defects.? (units unknown) (unknown) (unknown) (no date) (unknown) (unknown) 4 years (units unknown) (unknown) (unknown) (no date) (unknown) (unknown) [id number] (units unknown) (unknown) (unknown) (no date) (unknown) (unknown) ? Inspection - ? No gross appendicular or axial deformities (units unknown) (unknown) (unknown) (no date) (unknown) (unknown) ? Palpation -tenderness to palpation of the right lumbar paraspinous musculature (units unknown) (unknown) (unknown) (no date) (unknown) (unknown) ? ROM -unable to assess (units unknown) (unknown) (unknown) (no date) (unknown) (unknown) ? Special tests (uni ts unknown) (unknown) (unknown) (no date) (unknown) (unknown) ? (units unknown) (unknown) (unknown) (no date) (unknown) (unknown) ? Acetaminophen - current (units unknown) (unknown) (unknown) (no date) (unknown) (unknown) ? Antidepressants - current (units unknown) (unknown) (unknown) (no date) (unknown) (unknown) ? Antiepileptics - current (units unknown) (unknown) (unknown) (no date) (unknown) (unknown) ? Mu scle Relaxants - current (units unknown) (unknown) (unknown) (no date) (unknown) (unknown) ? NS AIDs - h/o heart disease (units unknown) (unknown) (unknown) (no date) (unknown) (unknown) ? Op ioids - current (units unknown) (unknown) (unknown) (no date) (unknown) (unknown) ? Steroids (units unknown) (unknown) (unknown) (no date) (unknown) (unknown) ? To picals - current (units unknown) (unknown) (unknown) (no date) (unknown) (unknown) Activities aff ected: walking, standing (units unknown) (unknown) (unknown) (no date) (unknown) (unknown) Age/Sex: 81 / F Date of Service: (units unknown) (unknown) (unknown) (no date) (unknown) (unknown) Aggravating fa ctors include: movement (units unknown) (unknown) (unknown) (no date) (unknown) (unknown) All other syst ems reviewed and are unremarkable except as noted in HPI. (units unknown) (unknown) (unknown) (no date) (unknown) (unknown) Allergies (units unknown) (unknown) (unknown) (no date) (unknown) (unknown) Amitriptyline 50mg 1-3 tablets QHS PRN pain/insomina (units unknown) (unknown) (unknown) (no date) (unknown) (unknown) [place] [address] (units unknown) (unknown) (unknown) (no date) (unknown) (unknown) Aortic regurgitation (units unknown) (unknown) (unknown) (no date) (unknown) (unknown) Approved by: Oscar Grissom M.D. on 08/27/2022 at 16:35 ? (units unknown) (unknown) (unknown) (no date) (unknown) (unknown) Assessment + Plan (u nits unknown) (unknown) (unknown) (no date) (unknown) (unknown) Assessment: (units unknown) (unknown) (unknown) (no date) (unknown) (unknown) Attending Dr: Jay Camarillo MD (units unknown) (unknown) (unknown) (no date) (unknown) (unknown) B/L L3-4 TFESI ([facility]) 05/09/20 ? (units unknown) (unknown) (unknown) (no date) (unknown) (unknown) [facility] (units unknown) (unknown) (unknown) (no date) (unknown) (unknown) Back pain, lumbosacr al (units unknown) (unknown) (unknown) (no date) (unknown) (unknown) Bones:? 5 nonrib-bearing vertebrae are present.? There is normal bony (units unknown) (unknown) (unknown) (no date) (unknown) (unknown) Bowel and blad tyler: Has had urinary as well as bowel incontinence for the past 3 (units unknown) (unknown) (unknown) (no date) (unknown) (unknown) Breast cancer (units unknown) (unknown) (unknown) (no date) (unknown) (unknown) CHF (congestiv e heart failure) (units unknown) (unknown) (unknown) (no date) (unknown) (unknown) COMPARISON:? I [facility], MR, MR LUMBAR SPINE WO CON, 04/16/2021, 14:10. (units unknown) (unknown) (unknown) (no date) (unknown) (unknown) COPD (chronic obstructive pulmonary disease) (units unknown) (unknown) (unknown) (no date) (unknown) (unknown) Carotid artery disea se (units unknown) (unknown) (unknown) (no date) (unknown) (unknown) Carpal tunnel syndro me (units unknown) (unknown) (unknown) (no date) (unknown) (unknown) Chart review: (units unknown) (unknown) (unknown) (no date) (unknown) (unknown) Chief Complaint (uni ts unknown) (unknown) (unknown) (no date) (unknown) (unknown) Chief Complain t: Low back and leg pain (units unknown) (unknown) (unknown) (no date) (unknown) (unknown) Chronic arthritis (u nits unknown) (unknown) (unknown) (no date) (unknown) (unknown) Conservative management includes: (units unknown) (unknown) (unknown) (no date) (unknown) (unknown) Continue [facility]. [] (units unknown) (unknown) (unknown) (no date) (unknown) (unknown) Continue home exercise program. [] (units unknown) (unknown) (unknown) (no date) (unknown) (unknown) Current VAS: []/10 ( units unknown) (unknown) (unknown) (no date) (unknown) (unknown) Current pain treatments include: (units unknown) (unknown) (unknown) (no date) (unknown) (unknown) Cymbalta 60mg QD (un its unknown) (unknown) (unknown) (no date) (unknown) (unknown) : 2 Acct:[id number] (units unknown) (unknown) (unknown) (no date) (unknown) (unknown) Denies recent trauma, fever or weight loss of unknown origin, immunocompromise (units unknown) (unknown) (unknown) (no date) (unknown) (unknown) Dept at . (units unknown) (unknown) (unknown) (no date) (unknown) (unknown) Details: (units unknown) (unknown) (unknown) (no date) (unknown) (unknown) Dictated by: Oscar Grissom M.D. on 08/27/2022 at 16:33 ? ? (units unknown) (unknown) (unknown) (no date) (unknown) (unknown) Documented By: Jay Camarillo MD 10/06/22 1200 (units unknown) (unknown) (unknown) (no date) (unknown) (unknown) Draft (units unknown) (unknown) (unknown) (no date) (unknown) (unknown) Dysphagia (units unknown) (unknown) (unknown) (no date) (unknown) (unknown) Elevated liver enzym es (units unknown) (unknown) (unknown) (no date) (unknown) (unknown) Exam Narrative (unit s unknown) (unknown) (unknown) (no date) (unknown) (unknown) Exam Narrative: (uni ts unknown) (unknown) (unknown) (no date) (unknown) (unknown) Exam (units unknown) (unknown) (unknown) (no date) (unknown) (unknown) FINDINGS:? (units unknown) (unknown) (unknown) (no date) (unknown) (unknown) Fibromyalgia (units unknown) (unknown) (unknown) (no date) (unknown) (unknown) Flexion/extens ion:? There is diminished range of motion, with preserved normal (units unknown) (unknown) (unknown) (no date) (unknown) (unknown) GERD (gastroes ophageal reflux disease) (units unknown) (unknown) (unknown) (no date) (unknown) (unknown) Gait/Station -nonambulatory (units unknown) (unknown) (unknown) (no date) (unknown) (unknown) General: Well-nourished, well-developed, female in no acute distress (units unknown) (unknown) (unknown) (no date) (unknown) (unknown) HPI (units unknown) (unknown) (unknown) (no date) (unknown) (unknown) History of appendectomy (units unknown) (unknown) (unknown) (no date) (unknown) (unknown) History of j luis ast surgery (units unknown) (unknown) (unknown) (no date) (unknown) (unknown) History of cat aract extraction (units unknown) (unknown) (unknown) (no date) (unknown) (unknown) History of tonsillectomy (units unknown) (unknown) (unknown) (no date) (unknown) (unknown) Hyperglycemia (units unknown) (unknown) (unknown) (no date) (unknown) (unknown) Hypertension (units unknown) (unknown) (unknown) (no date) (unknown) (unknown) IMPRESSION:? (units unknown) (unknown) (unknown) (no date) (unknown) (unknown) INDICATIONS:? LOW BACK PAIN (units unknown) (unknown) (unknown) (no date) (unknown) (unknown) Insomnia (units unknown) (unknown) (unknown) (no date) (unknown) (unknown) Intake (units unknown) (unknown) (unknown) (no date) (unknown) (unknown) Interval History: (u nits unknown) (unknown) (unknown) (no date) (unknown) (unknown) Intervention:?Date:?Outcome:?? ? (units unknown) (unknown) (unknown) (no date) (unknown) (unknown) JUSTIFICATION OF MEDICAL NECESSITY (units unknown) (unknown) (unknown) (no date) (unknown) (unknown) L-spine/T-spin e/C-spin e MRI ordered to better delineate the anatomy and help (units unknown) (unknown) (unknown) (no date) (unknown) (unknown) L2 Hip Flexion 5/5 5/5? (units unknown) (unknown) (unknown) (no date) (unknown) (unknown) L2-3 [facility] ([facility]) 11/28/20 ? (units unknown) (unknown) (unknown) (no date) (unknown) (unknown) L2-3 [facility] ([facility]) 01/31/21 ? (units unknown) (unknown) (unknown) (no date) (unknown) (unknown) L3 Knee Extens ion 5/5 5/5 (units unknown) (unknown) (unknown) (no date) (unknown) (unknown) L3-4 [facility] ([facility]) 08/13/20 ? (units unknown) (unknown) (unknown) (no date) (unknown) (unknown) L3-4 Patella 2+ 2 (u nits unknown) (unknown) (unknown) (no date) (unknown) (unknown) L4 Ankle Dorsi flexion 5/ 5/5 (units unknown) (unknown) (unknown) (no date) (unknown) (unknown) L4-5 [facility] ([facility])? 01/07/22 most helpful so far (slight (units unknown) (unknown) (unknown) (no date) (unknown) (unknown) L5 Long Toe Ex tension 5/5 / (units unknown) (unknown) (unknown) (no date) (unknown) (unknown) Leg pain, right (uni ts unknown) (unknown) (unknown) (no date) (unknown) (unknown) Loc: PAIN (units unknown) (unknown) (unknown) (no date) (unknown) (unknown) Low back pain (units unknown) (unknown) (unknown) (no date) (unknown) (unknown) Lumbar radiculopathy (units unknown) (unknown) (unknown) (no date) (unknown) (unknown) Lymphedema (units unknown) (unknown) (unknown) (no date) (unknown) (unknown) Lyrica 50mg TID (uni ts unknown) (unknown) (unknown) (no date) (unknown) (unknown) MSK: System re viewed and no additional complaints, except as documented. (units unknown) (unknown) (unknown) (no date) (unknown) (unknown) Medical Histor y (Updated 08/27/22 @ 14:12 by Jay Camarillo MD) (units unknown) (unknown) (unknown) (no date) (unknown) (unknown) Medications: (units unknown) (unknown) (unknown) (no date) (unknown) (unknown) Morbid obesity (unit s unknown) (unknown) (unknown) (no date) (unknown) (unknown) Motor (units unknown) (unknown) (unknown) (no date) (unknown) (unknown) Musculoskeletal: (un its unknown) (unknown) (unknown) (no date) (unknown) (unknown) Neuro: System reviewed and no additional complaints, except as documented. (units unknown) (unknown) (unknown) (no date) (unknown) (unknown) Neurologic: (units unknown) (unknown) (unknown) (no date) (unknown) (unknown) No Known Drug Allergies Allergy (Verified 07/05/22 09:52) (units unknown) (unknown) (unknown) (no date) (unknown) (unknown) [place] 7.5-325mg Q6hr (units unknown) (unknown) (unknown) (no date) (unknown) (unknown) Not indicated at this time. [] (units unknown) (unknown) (unknown) (no date) (unknown) (unknown) Not interested in interventions today there focus on physical therapy and (units unknown) (unknown) (unknown) (no date) (unknown) (unknown) Numbness/Tingl ing: all 4 extremity tingling due to neuropathy (units unknown) (unknown) (unknown) (no date) (unknown) (unknown) Objective Data (unit s unknown) (unknown) (unknown) (no date) (unknown) (unknown) Objective Data: (uni ts unknown) (unknown) (unknown) (no date) (unknown) (unknown) Oblique films: ? No pars defects. (units unknown) (unknown) (unknown) (no date) (unknown) (unknown) Onset/Context of param n: (units unknown) (unknown) (unknown) (no date) (unknown) (unknown) Onset: Insidious (un its unknown) (unknown) (unknown) (no date) (unknown) (unknown) Other: Denies (units unknown) (unknown) (unknown) (no date) (unknown) (unknown) PFSH (units unknown) (unknown) (unknown) (no date) (unknown) (unknown) PROCEDURE:? XR LUMBAR SPINE MIN 4V (units unknown) (unknown) (unknown) (no date) (unknown) (unknown) PT: Had 4 sess ions of home health with Starla (units unknown) (unknown) (unknown) (no date) (unknown) (unknown) Pain Visit (units unknown) (unknown) (unknown) (no date) (unknown) (unknown) Pain location/Radiation: Middle low back, radiating to the right low back, right (units unknown) (unknown) (unknown) (no date) (unknown) (unknown) Pain ratin /10 today, 10/10 at worst (units unknown) (unknown) (unknown) (no date) (unknown) (unknown) Past medical, surgical, social, and family history is unchanged from prior (units unknown) (unknown) (unknown) (no date) (unknown) (unknown) Patient was la st seen here on 08/27/2022. (units unknown) (unknown) (unknown) (no date) (unknown) (unknown) Patient will r eturn for []. Risks and benefits were discussed. (units unknown) (unknown) (unknown) (no date) (unknown) (unknown) Patient's pain has been present for >6 weeks and is an average of >6/10 on 0-10 (units unknown) (unknown) (unknown) (no date) (unknown) (unknown) Patient: Dulce Butt MR#: [id number] (units unknown) (unknown) (unknown) (no date) (unknown) (unknown) Peripheral neuropath y (units unknown) (unknown) (unknown) (no date) (unknown) (unknown) Plan (units unknown) (unknown) (unknown) (no date) (unknown) (unknown) Plan/Recommendations : (units unknown) (unknown) (unknown) (no date) (unknown) (unknown) Prescriptions Written: [] (units unknown) (unknown) (unknown) (no date) (unknown) (unknown) Previous Visit Assessment: 'Dulce is an 81-year-old female presenting for (units unknown) (unknown) (unknown) (no date) (unknown) (unknown) Previous pain treatments included: (units unknown) (unknown) (unknown) (no date) (unknown) (unknown) Psych: Appropr iate affect, answers questions appropriately (units unknown) (unknown) (unknown) (no date) (unknown) (unknown) Quality and ti pj of pain: Sharp in back, sharp in leg; constant (units unknown) (unknown) (unknown) (no date) (unknown) (unknown) ROS Narrative (units unknown) (unknown) (unknown) (no date) (unknown) (unknown) ROS Narrative: (unit s unknown) (unknown) (unknown) (no date) (unknown) (unknown) ROS (units unknown) (unknown) (unknown) (no date) (unknown) (unknown) Reason For Visit (un its unknown) (unknown) (unknown) (no date) (unknown) (unknown) Red flag symptoms: ( units unknown) (unknown) (unknown) (no date) (unknown) (unknown) Reflex Right Left (u nits unknown) (unknown) (unknown) (no date) (unknown) (unknown) Reflexes: (units unknown) (unknown) (unknown) (no date) (unknown) (unknown) Relieving fact ors include: recliner, medications (units unknown) (unknown) (unknown) (no date) (unknown) (unknown) Respiratory: Non-labored breathing pattern on RA. No respiratory distress (units unknown) (unknown) (unknown) (no date) (unknown) (unknown) Rheumatology g john her history of arthritis of multiple joints.' (units unknown) (unknown) (unknown) (no date) (unknown) (unknown) Robaxin 750mg QID (u nits unknown) (unknown) (unknown) (no date) (unknown) (unknown) S1 Ankle Plantarflexion 5/5 5/5 (units unknown) (unknown) (unknown) (no date) (unknown) (unknown) SVT (supravent ricular tachycardia) (units unknown) (unknown) (unknown) (no date) (unknown) (unknown) Saddle anesthe ban: denies (units unknown) (unknown) (unknown) (no date) (unknown) (unknown) Segment Action Right Left (units unknown) (unknown) (unknown) (no date) (unknown) (unknown) Segment Reflex Right Left (units unknown) (unknown) (unknown) (no date) (unknown) (unknown) Sensory -? Int act to light touch at bilateral lower extremities. Allodynia (units unknown) (unknown) (unknown) (no date) (unknown) (unknown) Signed By: (units unknown) (unknown) (unknown) (no date) (unknown) (unknown) Skin: No appre ciable rashes or skin breakdown (units unknown) (unknown) (unknown) (no date) (unknown) (unknown) Smoking Status : Former smoker (units unknown) (unknown) (unknown) (no date) (unknown) (unknown) Soft tissues:? Overlying bowel gas pattern is normal.? No suspicious soft tissue (units unknown) (unknown) (unknown) (no date) (unknown) (unknown) Surgery: Denies (uni ts unknown) (unknown) (unknown) (no date) (unknown) (unknown) Surgical Histo ry (units unknown) (unknown) (unknown) (no date) (unknown) (unknown) TECHNIQUE:? 6 views of the lumbar spine acquired, including flexion and (units unknown) (unknown) (unknown) (no date) (unknown) (unknown) [facility] (units unknown) (unknown) (unknown) (no date) (unknown) (unknown) This note may have been all or partially generated using voice recognition (units unknown) (unknown) (unknown) (no date) (unknown) (unknown) Tobacco + Subs tance Use (units unknown) (unknown) (unknown) (no date) (unknown) (unknown) Tobacco Status (unit s unknown) (unknown) (unknown) (no date) (unknown) (unknown) Today I have r eviewed available medical information in the patient's medical (units unknown) (unknown) (unknown) (no date) (unknown) (unknown) Upper Motor Ne uron Signs: (units unknown) (unknown) (unknown) (no date) (unknown) (unknown) Urinary incontinence (units unknown) (unknown) (unknown) (no date) (unknown) (unknown) Visit Reasons: 6WK FOLLOW UP (units unknown) (unknown) (unknown) (no date) (unknown) (unknown) Voltaren gel - on knee and anterior leg (units unknown) (unknown) (unknown) (no date) (unknown) (unknown) [place] 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 (units unknown) (unknown) (unknown) (no date) (unknown) (unknown) We reviewed et iology, predisposing factor(s), natural course, imaging results as (units unknown) (unknown) (unknown) (no date) (unknown) (unknown) Weakness: b/l leg weakness (units unknown) (unknown) (unknown) (no date) (unknown) (unknown) able to partic ipate in ADLs, had improved sleep, improved mobility, etc. (units unknown) (unknown) (unknown) (no date) (unknown) (unknown) alignment. (units unknown) (unknown) (unknown) (no date) (unknown) (unknown) alignment.? No (unit s unknown) (unknown) (unknown) (no date) (unknown) (unknown) and oblique views. ( units unknown) (unknown) (unknown) (no date) (unknown) (unknown) benefits of va rious treatment options were discussed with the patient in great (units unknown) (unknown) (unknown) (no date) (unknown) (unknown) bowel/bladder dysfunction, and perineal numbness were discussed. The patient was (units unknown) (unknown) (unknown) (no date) (unknown) (unknown) buttock, anter ior thigh, anterior lower leg and dorsum of foot (units unknown) (unknown) (unknown) (no date) (unknown) (unknown) calcifications.? (un its unknown) (unknown) (unknown) (no date) (unknown) (unknown) candidate for mild procedure given ligamentum flavum hypertrophy of multiple (units unknown) (unknown) (unknown) (no date) (unknown) (unknown) cannot tolerat e physical therapy at the current time due to the intensity of the (units unknown) (unknown) (unknown) (no date) (unknown) (unknown) decrease of le g and back pain) (units unknown) (unknown) (unknown) (no date) (unknown) (unknown) detail. (units unknown) (unknown) (unknown) (no date) (unknown) (unknown) extension views (uni ts unknown) (unknown) (unknown) (no date) (unknown) (unknown) further evalua tion of low back and right leg pain.? Pain is likely (units unknown) (unknown) (unknown) (no date) (unknown) (unknown) have occurred. If there are any questions, please contact the Medical Records (units unknown) (unknown) (unknown) (no date) (unknown) (unknown) in PT. [] (units unknown) (unknown) (unknown) (no date) (unknown) (unknown) instructed to report to the Emergency department, if these symptoms occur. (units unknown) (unknown) (unknown) (no date) (unknown) (unknown) instructed to stop if any side effects. [] (units unknown) (unknown) (unknown) (no date) (unknown) (unknown) intravenous dr ug use, sustained glucocorticoid use, osteoporosis, or a focal (units unknown) (unknown) (unknown) (no date) (unknown) (unknown) iple epidural steroid injections in the past at [facility] without benefit.? (units unknown) (unknown) (unknown) (no date) (unknown) (unknown) it is quite ex pensive for her to travel given her immobility.? She may also be a (units unknown) (unknown) (unknown) (no date) (unknown) (unknown) levels of the lumbar spine.? She is also interested in a referral to (units unknown) (unknown) (unknown) (no date) (unknown) (unknown) may occur. Occ asional wrong-word or 'sound-alike' substitutions may have (units unknown) (unknown) (unknown) (no date) (unknown) (unknown) meds. [] (units unknown) (unknown) (unknown) (no date) (unknown) (unknown) multifactorial including both axial and radicular components.? She is had mult (units unknown) (unknown) (unknown) (no date) (unknown) (unknown) negative, Hype ralgesia - negative (units unknown) (unknown) (unknown) (no date) (unknown) (unknown) neurological d eficit with progressive or disabling symptoms. (units unknown) (unknown) (unknown) (no date) (unknown) (unknown) occurred due t o the inherent limitations of voice recognition software. Please (units unknown) (unknown) (unknown) (no date) (unknown) (unknown) of Spinal Cord Injur y) (units unknown) (unknown) (unknown) (no date) (unknown) (unknown) or immunosuppr essive therapy, previous or current cancer diagnosis, history of (units unknown) (unknown) (unknown) (no date) (unknown) (unknown) pain. [] (units unknown) (unknown) (unknown) (no date) (unknown) (unknown) read the note carefully and recognize, using context, where these substitutions (units unknown) (unknown) (unknown) (no date) (unknown) (unknown) record, includ ing relevant provider notes, laboratory work, and imaging. (units unknown) (unknown) (unknown) (no date) (unknown) (unknown) scale and/or p ain interferes with ADLs. (units unknown) (unknown) (unknown) (no date) (unknown) (unknown) software. Alth ough every effort is made to edit content, excelsior cutter errors (units unknown) (unknown) (unknown) (no date) (unknown) (unknown) strengthening of the lower extremities her goal is to be able to transfer from (units unknown) (unknown) (unknown) (no date) (unknown) (unknown) therapeutic in jections and surgery. The risks, consequences, alternatives and (units unknown) (unknown) (unknown) (no date) (unknown) (unknown) therapy. ?A re ferral was provided for the patient. [] (units unknown) (unknown) (unknown) (no date) (unknown) (unknown) vertebral body compression fractures.? No suspicious bony lesions.? (units unknown) (unknown) (unknown) (no date) (unknown) (unknown) visit. (units unknown) (unknown) (unknown) (no date) (unknown) (unknown) well as treatm ent options including medications, physical therapy/exercise, (units unknown) (unknown) (unknown) (no date) (unknown) (unknown) wheelchair wit h less assistance.? We will arrange for [place] home health care as (units unknown) (unknown) (unknown) (no date) (unknown) (unknown) with future tr eatment planning. [] (units unknown) (unknown) Result panel 2 (unknown) (no date) (unknown) (unknown) (no value) (units unknown) (unknown) (unknown) (no date) (unknown) (unknown) (0=absent, 1=s light response, 2=brisk/normal, 3=very brisk, 4=clonus) (units unknown) (unknown) (unknown) (no date) (unknown) (unknown) (segments are from the International Standards for Neurological Classification (units unknown) (unknown) (unknown) (no date) (unknown) (unknown) - Activity: Co ntinue activity as tolerated. [] (units unknown) (unknown) (unknown) (no date) (unknown) (unknown) - Chiropractor , acupuncture[] (units unknown) (unknown) (unknown) (no date) (unknown) (unknown) - Continues cl inician directed home exercise program including exercises learned (units unknown) (unknown) (unknown) (no date) (unknown) (unknown) - Education: C auda equina and associated symptoms, including motor weakness, (units unknown) (unknown) (unknown) (no date) (unknown) (unknown) - FADIR: Unabl e to assess (units unknown) (unknown) (unknown) (no date) (unknown) (unknown) - Follow-up: [] (uni ts unknown) (unknown) (unknown) (no date) (unknown) (unknown) - Hip ROM is: Unable to assess (units unknown) (unknown) (unknown) (no date) (unknown) (unknown) - I discussed risks, benefits and side effects. Additionally, patient was (units unknown) (unknown) (unknown) (no date) (unknown) (unknown) - Imaging: No new imaging indicated at this time. [] (units unknown) (unknown) (unknown) (no date) (unknown) (unknown) - Interventional/Surgica l procedures: None indicated at this time. [] (units unknown) (unknown) (unknown) (no date) (unknown) (unknown) - Lumbar facet loading: Unable to assess (units unknown) (unknown) (unknown) (no date) (unknown) (unknown) - Medications: No new prescription at this time. Patient will continue current (units unknown) (unknown) (unknown) (no date) (unknown) (unknown) - Medications: acetaminophen, NSAIDS, neuropathics, muscle relaxants [] (units unknown) (unknown) (unknown) (no date) (unknown) (unknown) - Physical The rapy: Completed 6 week course in the last 6 months OR Patient (units unknown) (unknown) (unknown) (no date) (unknown) (unknown) - Physical therapy/modalities/DME : Patient will likely benefit from physical (units unknown) (unknown) (unknown) (no date) (unknown) (unknown) - Prescription provided and uptitration instructions given if necessary. [] (units unknown) (unknown) (unknown) (no date) (unknown) (unknown) - Previous [] on [] provided []% relief of pain for []. During that time patient (units unknown) (unknown) (unknown) (no date) (unknown) (unknown) - Referrals: N one indicated at this time. [] (units unknown) (unknown) (unknown) (no date) (unknown) (unknown) - SIJ provocat ion testing: Unable to assess (units unknown) (unknown) (unknown) (no date) (unknown) (unknown) - Seated strai ght Leg Raise: Negative bilaterally (units unknown) (unknown) (unknown) (no date) (unknown) (unknown) 08/27/22 (units unknown) (unknown) (unknown) (no date) (unknown) (unknown) 08/27/22] (units unknown) (unknown) (unknown) (no date) (unknown) (unknown) 10/07/22] (units unknown) (unknown) (unknown) (no date) (unknown) (unknown) 1. Lower lumba r facet arthropathy. (units unknown) (unknown) (unknown) (no date) (unknown) (unknown) 2. No abnormal motion on flexion and extension. (units unknown) (unknown) (unknown) (no date) (unknown) (unknown) 3. No pars defects.? (units unknown) (unknown) (unknown) (no date) (unknown) (unknown) 4 years (units unknown) (unknown) (unknown) (no date) (unknown) (unknown) [id number] (units unknown) (unknown) (unknown) (no date) (unknown) (unknown) ? Inspection - ? No gross appendicular or axial deformities (units unknown) (unknown) (unknown) (no date) (unknown) (unknown) ? Palpation -tenderness to palpation of the right lumbar paraspinous musculature (units unknown) (unknown) (unknown) (no date) (unknown) (unknown) ? ROM -unable to assess (units unknown) (unknown) (unknown) (no date) (unknown) (unknown) ? Special tests (uni ts unknown) (unknown) (unknown) (no date) (unknown) (unknown) ? (units unknown) (unknown) (unknown) (no date) (unknown) (unknown) ? Acetaminophen - current (units unknown) (unknown) (unknown) (no date) (unknown) (unknown) ? Antidepressants - current (units unknown) (unknown) (unknown) (no date) (unknown) (unknown) ? Antiepileptics - current (units unknown) (unknown) (unknown) (no date) (unknown) (unknown) ? Mu scle Relaxants - current (units unknown) (unknown) (unknown) (no date) (unknown) (unknown) ? NS AIDs - h/o heart disease (units unknown) (unknown) (unknown) (no date) (unknown) (unknown) ? Op ioids - current (units unknown) (unknown) (unknown) (no date) (unknown) (unknown) ? Steroids (units unknown) (unknown) (unknown) (no date) (unknown) (unknown) ? To picals - current (units unknown) (unknown) (unknown) (no date) (unknown) (unknown) Activities aff ected: walking, standing (units unknown) (unknown) (unknown) (no date) (unknown) (unknown) Age/Sex: 81 / F Date of Service: (units unknown) (unknown) (unknown) (no date) (unknown) (unknown) Aggravating fa ctors include: movement (units unknown) (unknown) (unknown) (no date) (unknown) (unknown) All other syst ems reviewed and are unremarkable except as noted in HPI. (units unknown) (unknown) (unknown) (no date) (unknown) (unknown) Allergies (units unknown) (unknown) (unknown) (no date) (unknown) (unknown) Amitriptyline 50mg 1-3 tablets QHS PRN pain/insomina (units unknown) (unknown) (unknown) (no date) (unknown) (unknown) SYBIL Ray [id number] (units unknown) (unknown) (unknown) (no date) (unknown) (unknown) Aortic regurgitation (units unknown) (unknown) (unknown) (no date) (unknown) (unknown) Approved by: Oscar Grissom M.D. on 08/27/2022 at 16:35 ? (units unknown) (unknown) (unknown) (no date) (unknown) (unknown) Assessment + Plan (u nits unknown) (unknown) (unknown) (no date) (unknown) (unknown) Assessment: (units unknown) (unknown) (unknown) (no date) (unknown) (unknown) Attending Dr: Jay Camarillo MD (units unknown) (unknown) (unknown) (no date) (unknown) (unknown) B/L L3-4 TFESI ([place]) 05/09/20 ? (units unknown) (unknown) (unknown) (no date) (unknown) (unknown) [facility] ngoing Downgoing (units unknown) (unknown) (unknown) (no date) (unknown) (unknown) Back pain, lumbosacr al (units unknown) (unknown) (unknown) (no date) (unknown) (unknown) Bones:? 5 nonrib-bearing vertebrae are present.? There is normal bony (units unknown) (unknown) (unknown) (no date) (unknown) (unknown) Bowel and blad tyler: Has had urinary as well as bowel incontinence for the past 3 (units unknown) (unknown) (unknown) (no date) (unknown) (unknown) Breast cancer (units unknown) (unknown) (unknown) (no date) (unknown) (unknown) CHF (congestiv e heart failure) (units unknown) (unknown) (unknown) (no date) (unknown) (unknown) COMPARISON:? I [facility], MR, MR LUMBAR SPINE WO CON, 04/16/2021, 14:10. (units unknown) (unknown) (unknown) (no date) (unknown) (unknown) COPD (chronic obstructive pulmonary disease) (units unknown) (unknown) (unknown) (no date) (unknown) (unknown) Carotid artery disea se (units unknown) (unknown) (unknown) (no date) (unknown) (unknown) Carpal tunnel syndro me (units unknown) (unknown) (unknown) (no date) (unknown) (unknown) Chart review: (units unknown) (unknown) (unknown) (no date) (unknown) (unknown) Chief Complaint (uni ts unknown) (unknown) (unknown) (no date) (unknown) (unknown) Chief Complain t: Low back and leg pain (units unknown) (unknown) (unknown) (no date) (unknown) (unknown) Chronic arthritis (u nits unknown) (unknown) (unknown) (no date) (unknown) (unknown) Confirmed 08/27/22] (units unknown) (unknown) (unknown) (no date) (unknown) (unknown) Conservative management includes: (units unknown) (unknown) (unknown) (no date) (unknown) (unknown) Continue [facility] physical therapy. [] (units unknown) (unknown) (unknown) (no date) (unknown) (unknown) Continue home exercise program. [] (units unknown) (unknown) (unknown) (no date) (unknown) (unknown) Current VAS: []/10 ( units unknown) (unknown) (unknown) (no date) (unknown) (unknown) Current pain treatments include: (units unknown) (unknown) (unknown) (no date) (unknown) (unknown) Cymbalta 60mg QD (un its unknown) (unknown) (unknown) (no date) (unknown) (unknown) : 2 Acct:[id number] (units unknown) (unknown) (unknown) (no date) (unknown) (unknown) Denies recent trauma, fever or weight loss of unknown origin, immunocompromise (units unknown) (unknown) (unknown) (no date) (unknown) (unknown) Dept at . (units unknown) (unknown) (unknown) (no date) (unknown) (unknown) Details: (units unknown) (unknown) (unknown) (no date) (unknown) (unknown) Dictated by: Oscar Grissom M.D. on 08/27/2022 at 16:33 ? ? (units unknown) (unknown) (unknown) (no date) (unknown) (unknown) Documented By: Jay Camarillo MD 10/06/22 1200 (units unknown) (unknown) (unknown) (no date) (unknown) (unknown) Draft (units unknown) (unknown) (unknown) (no date) (unknown) (unknown) Dysphagia (units unknown) (unknown) (unknown) (no date) (unknown) (unknown) Elevated liver enzym es (units unknown) (unknown) (unknown) (no date) (unknown) (unknown) Exam Narrative (unit s unknown) (unknown) (unknown) (no date) (unknown) (unknown) Exam Narrative: (uni ts unknown) (unknown) (unknown) (no date) (unknown) (unknown) Exam (units unknown) (unknown) (unknown) (no date) (unknown) (unknown) FINDINGS:? (units unknown) (unknown) (unknown) (no date) (unknown) (unknown) Fibromyalgia (units unknown) (unknown) (unknown) (no date) (unknown) (unknown) Flexion/extens ion:? There is diminished range of motion, with preserved normal (units unknown) (unknown) (unknown) (no date) (unknown) (unknown) GERD (gastroes ophageal reflux disease) (units unknown) (unknown) (unknown) (no date) (unknown) (unknown) Gait/Station -nonambulatory (units unknown) (unknown) (unknown) (no date) (unknown) (unknown) General: Well-nourished, well-developed, female in no acute distress (units unknown) (unknown) (unknown) (no date) (unknown) (unknown) HPI (units unknown) (unknown) (unknown) (no date) (unknown) (unknown) History of appendectomy (units unknown) (unknown) (unknown) (no date) (unknown) (unknown) History of j luis ast surgery (units unknown) (unknown) (unknown) (no date) (unknown) (unknown) History of cat aract extraction (units unknown) (unknown) (unknown) (no date) (unknown) (unknown) History of tonsillectomy (units unknown) (unknown) (unknown) (no date) (unknown) (unknown) Hyperglycemia (units unknown) (unknown) (unknown) (no date) (unknown) (unknown) Hypertension (units unknown) (unknown) (unknown) (no date) (unknown) (unknown) IMPRESSION:? (units unknown) (unknown) (unknown) (no date) (unknown) (unknown) INDICATIONS:? LOW BACK PAIN (units unknown) (unknown) (unknown) (no date) (unknown) (unknown) Insomnia (units unknown) (unknown) (unknown) (no date) (unknown) (unknown) Intake (units unknown) (unknown) (unknown) (no date) (unknown) (unknown) Interval History: (u nits unknown) (unknown) (unknown) (no date) (unknown) (unknown) Intervention:?Date:?Outcome:?? ? (units unknown) (unknown) (unknown) (no date) (unknown) (unknown) JUSTIFICATION OF MEDICAL NECESSITY (units unknown) (unknown) (unknown) (no date) (unknown) (unknown) L-spine/T-spin e/C-spin e MRI ordered to better delineate the anatomy and help (units unknown) (unknown) (unknown) (no date) (unknown) (unknown) L2 Hip Flexion 12/05 12/05? (units unknown) (unknown) (unknown) (no date) (unknown) (unknown) L2-3 MARCIAL ([place]) 11/28/20 ? (units unknown) (unknown) (unknown) (no date) (unknown) (unknown) L2-3 MARCIAL ([place]) 01/31/21 ? (units unknown) (unknown) (unknown) (no date) (unknown) (unknown) L3 Knee Extens ion 12/05 12/05 (units unknown) (unknown) (unknown) (no date) (unknown) (unknown) L3-4 MARCIAL ([place]) 08/13/20 ? (units unknown) (unknown) (unknown) (no date) (unknown) (unknown) L3-4 Pat[place] 2+ 2 (u nits unknown) (unknown) (unknown) (no date) (unknown) (unknown) L4 Ankle Dorsi flexion /12/05 (units unknown) (unknown) (unknown) (no date) (unknown) (unknown) L4-5 MARCIAL ([place])? 01/07/22 most helpful so far (slight (units unknown) (unknown) (unknown) (no date) (unknown) (unknown) L5 Long Toe Ex tension /12/05 (units unknown) (unknown) (unknown) (no date) (unknown) (unknown) Leg pain, right (uni ts unknown) (unknown) (unknown) (no date) (unknown) (unknown) Loc: PAIN (units unknown) (unknown) (unknown) (no date) (unknown) (unknown) Low back pain (units unknown) (unknown) (unknown) (no date) (unknown) (unknown) Lumbar radiculopathy (units unknown) (unknown) (unknown) (no date) (unknown) (unknown) Lymphedema (units unknown) (unknown) (unknown) (no date) (unknown) (unknown) Lyrica 50mg TID (uni ts unknown) (unknown) (unknown) (no date) (unknown) (unknown) MSK: System re viewed and no additional complaints, except as documented. (units unknown) (unknown) (unknown) (no date) (unknown) (unknown) Medical Histor y (Updated 08/27/22 @ 14:12 by Jay Camarillo MD) (units unknown) (unknown) (unknown) (no date) (unknown) (unknown) Medications (units unknown) (unknown) (unknown) (no date) (unknown) (unknown) Medications: (units unknown) (unknown) (unknown) (no date) (unknown) (unknown) Morbid obesity (unit s unknown) (unknown) (unknown) (no date) (unknown) (unknown) Motor (units unknown) (unknown) (unknown) (no date) (unknown) (unknown) Musculoskeletal: (un its unknown) (unknown) (unknown) (no date) (unknown) (unknown) Neuro: System reviewed and no additional complaints, except as documented. (units unknown) (unknown) (unknown) (no date) (unknown) (unknown) Neurologic: (units unknown) (unknown) (unknown) (no date) (unknown) (unknown) No Known Drug Allergies Allergy (Verified 10/07/22 10:23) (units unknown) (unknown) (unknown) (no date) (unknown) (unknown) [place] 7.5-325mg Q6hr (units unknown) (unknown) (unknown) (no date) (unknown) (unknown) Not indicated at this time. [] (units unknown) (unknown) (unknown) (no date) (unknown) (unknown) Numbness/Tingl ing: all 4 extremity tingling due to neuropathy (units unknown) (unknown) (unknown) (no date) (unknown) (unknown) Objective Data (unit s unknown) (unknown) (unknown) (no date) (unknown) (unknown) Objective Data: (uni ts unknown) (unknown) (unknown) (no date) (unknown) (unknown) Oblique films: ? No pars defects. (units unknown) (unknown) (unknown) (no date) (unknown) (unknown) Onset/Context of param n: (units unknown) (unknown) (unknown) (no date) (unknown) (unknown) Onset: Insidious (un its unknown) (unknown) (unknown) (no date) (unknown) (unknown) Other: Denies (units unknown) (unknown) (unknown) (no date) (unknown) (unknown) PFSH (units unknown) (unknown) (unknown) (no date) (unknown) (unknown) PROCEDURE:? XR LUMBAR SPINE MIN 4V (units unknown) (unknown) (unknown) (no date) (unknown) (unknown) PT: Had 4 sess ions of home health with Starla (units unknown) (unknown) (unknown) (no date) (unknown) (unknown) Pain Visit (units unknown) (unknown) (unknown) (no date) (unknown) (unknown) Pain location/Radiation: Middle low back, radiating to the right low back, right (units unknown) (unknown) (unknown) (no date) (unknown) (unknown) Pain ratin /10 today, 10/10 at worst (units unknown) (unknown) (unknown) (no date) (unknown) (unknown) Past medical, surgical, social, and family history is unchanged from prior (units unknown) (unknown) (unknown) (no date) (unknown) (unknown) Patient was conor miller seen here on 08/27/2022. (units unknown) (unknown) (unknown) (no date) (unknown) (unknown) Patient will r eturn for []. Risks and benefits were discussed. (units unknown) (unknown) (unknown) (no date) (unknown) (unknown) Patient's pain has been present for >6 weeks and is an average of >6/10 on 0-10 (units unknown) (unknown) (unknown) (no date) (unknown) (unknown) Patient: Dulce Butt MR#: [id number] (units unknown) (unknown) (unknown) (no date) (unknown) (unknown) Peripheral neuropath y (units unknown) (unknown) (unknown) (no date) (unknown) (unknown) Plan (units unknown) (unknown) (unknown) (no date) (unknown) (unknown) Plan/Recommendations : (units unknown) (unknown) (unknown) (no date) (unknown) (unknown) Prescriptions Written: [] (units unknown) (unknown) (unknown) (no date) (unknown) (unknown) Previous Visit Assessment: 'Dulce is an 81-year-old female presenting for (units unknown) (unknown) (unknown) (no date) (unknown) (unknown) Previous pain treatments included: (units unknown) (unknown) (unknown) (no date) (unknown) (unknown) Psych: Appropr iate affect, answers questions appropriately (units unknown) (unknown) (unknown) (no date) (unknown) (unknown) Quality and ti pj of pain: Sharp in back, sharp in leg; constant (units unknown) (unknown) (unknown) (no date) (unknown) (unknown) ROS Narrative (units unknown) (unknown) (unknown) (no date) (unknown) (unknown) ROS Narrative: (unit s unknown) (unknown) (unknown) (no date) (unknown) (unknown) ROS (units unknown) (unknown) (unknown) (no date) (unknown) (unknown) Reason For Visit (un its unknown) (unknown) (unknown) (no date) (unknown) (unknown) Red flag symptoms: ( units unknown) (unknown) (unknown) (no date) (unknown) (unknown) Reflex Right Left (u nits unknown) (unknown) (unknown) (no date) (unknown) (unknown) Reflexes: (units unknown) (unknown) (unknown) (no date) (unknown) (unknown) Relieving fact ors include: recliner, medications (units unknown) (unknown) (unknown) (no date) (unknown) (unknown) Respiratory: Non-labored breathing pattern on RA. No respiratory distress (units unknown) (unknown) (unknown) (no date) (unknown) (unknown) Rheumatology marilou lopez her history of arthritis of multiple joints.' (units unknown) (unknown) (unknown) (no date) (unknown) (unknown) Robaxin 750mg QID (u nits unknown) (unknown) (unknown) (no date) (unknown) (unknown) S1 Ankle Plantarflexion 5/5 5/5 (units unknown) (unknown) (unknown) (no date) (unknown) (unknown) SVT (supravent ricular tachycardia) (units unknown) (unknown) (unknown) (no date) (unknown) (unknown) Saddle anesthe ban: denies (units unknown) (unknown) (unknown) (no date) (unknown) (unknown) Segment Action Right Left (units unknown) (unknown) (unknown) (no date) (unknown) (unknown) Segment Reflex Right Left (units unknown) (unknown) (unknown) (no date) (unknown) (unknown) Sensory -? Int act to light touch at bilateral lower extremities. Allodynia (units unknown) (unknown) (unknown) (no date) (unknown) (unknown) Signed By: (units unknown) (unknown) (unknown) (no date) (unknown) (unknown) Skin: No appre ciable rashes or skin breakdown (units unknown) (unknown) (unknown) (no date) (unknown) (unknown) Smoking Status : Former smoker (units unknown) (unknown) (unknown) (no date) (unknown) (unknown) Soft tissues:? Overlying bowel gas pattern is normal.? No suspicious soft tissue (units unknown) (unknown) (unknown) (no date) (unknown) (unknown) Surgery: Denies (uni ts unknown) (unknown) (unknown) (no date) (unknown) (unknown) Surgical Histo ry (units unknown) (unknown) (unknown) (no date) (unknown) (unknown) TECHNIQUE:? 6 views of the lumbar spine acquired, including flexion and (units unknown) (unknown) (unknown) (no date) (unknown) (unknown) [facility] (units unknown) (unknown) (unknown) (no date) (unknown) (unknown) This note may have been all or partially generated using voice recognition (units unknown) (unknown) (unknown) (no date) (unknown) (unknown) Tobacco + Subs tance Use (units unknown) (unknown) (unknown) (no date) (unknown) (unknown) Tobacco Status (unit s unknown) (unknown) (unknown) (no date) (unknown) (unknown) Today I have r eviewed available medical information in the patient's medical (units unknown) (unknown) (unknown) (no date) (unknown) (unknown) Upper Motor Ne uron Signs: (units unknown) (unknown) (unknown) (no date) (unknown) (unknown) Urinary incontinence (units unknown) (unknown) (unknown) (no date) (unknown) (unknown) Visit Reasons: 6WK FOLLOW UP (units unknown) (unknown) (unknown) (no date) (unknown) (unknown) Voltaren gel - on knee and anterior leg (units unknown) (unknown) (unknown) (no date) (unknown) (unknown) [place] 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 (units unknown) (unknown) (unknown) (no date) (unknown) (unknown) We reviewed et iology, predisposing factor(s), natural course, imaging results as (units unknown) (unknown) (unknown) (no date) (unknown) (unknown) Weakness: b/l leg weakness (units unknown) (unknown) (unknown) (no date) (unknown) (unknown) able to partic ipate in ADLs, had improved sleep, improved mobility, etc. (units unknown) (unknown) (unknown) (no date) (unknown) (unknown) alignment. (units unknown) (unknown) (unknown) (no date) (unknown) (unknown) alignment.? No (unit s unknown) (unknown) (unknown) (no date) (unknown) (unknown) amitriptyline 10 mg tablet 10 mg PO BEDTIME 10/07/22 [History Confirmed (units unknown) (unknown) (unknown) (no date) (unknown) (unknown) amitriptyline 50 mg tablet 50 mg PO BEDTIME 08/27/22 [History Confirmed (units unknown) (unknown) (unknown) (no date) (unknown) (unknown) and oblique views. ( units unknown) (unknown) (unknown) (no date) (unknown) (unknown) and strengthen ing of the lower extremities her goal is to be able to transfer (units unknown) (unknown) (unknown) (no date) (unknown) (unknown) as it is quite expensive for her to travel given her immobility.? She may also (units unknown) (unknown) (unknown) (no date) (unknown) (unknown) atorvastatin 2 0 mg tablet 20 mg PO BEDTIME 08/27/22 [History Confirmed 08/27/22] (units unknown) (unknown) (unknown) (no date) (unknown) (unknown) be a candidate for mild procedure given ligamentum flavum hypertrophy of (units unknown) (unknown) (unknown) (no date) (unknown) (unknown) benefit.? Not interested in interventions today there focus on physical therapy (units unknown) (unknown) (unknown) (no date) (unknown) (unknown) benefits of va rious treatment options were discussed with the patient in great (units unknown) (unknown) (unknown) (no date) (unknown) (unknown) bowel/bladder dysfunction, and perineal numbness were discussed. The patient was (units unknown) (unknown) (unknown) (no date) (unknown) (unknown) buttock, anter ior thigh, anterior lower leg and dorsum of foot (units unknown) (unknown) (unknown) (no date) (unknown) (unknown) calcifications.? (un its unknown) (unknown) (unknown) (no date) (unknown) (unknown) cannot tolerat e physical therapy at the current time due to the intensity of the (units unknown) (unknown) (unknown) (no date) (unknown) (unknown) carvedilol 12. 5 mg tablet 12.5 mg PO ONCE 08/27/22 [History Confirmed 08/27/22] (units unknown) (unknown) (unknown) (no date) (unknown) (unknown) decrease of le g and back pain) (units unknown) (unknown) (unknown) (no date) (unknown) (unknown) detail. (units unknown) (unknown) (unknown) (no date) (unknown) (unknown) duloxetine 60 mg capsule,delayed release 60 mg PO DAILY 08/27/22 [History (units unknown) (unknown) (unknown) (no date) (unknown) (unknown) extension views (uni ts unknown) (unknown) (unknown) (no date) (unknown) (unknown) from kailee zach with less assistance.? We will arrange for [place] home health care (units unknown) (unknown) (unknown) (no date) (unknown) (unknown) furosemide 40 mg tablet 40 mg PO DAILY 08/27/22 [History Confirmed 08/27/22] (units unknown) (unknown) (unknown) (no date) (unknown) (unknown) further evalua tion of low back and right leg pain.? Pain is likely (units unknown) (unknown) (unknown) (no date) (unknown) (unknown) have occurred. If there are any questions, please contact the Medical Records (units unknown) (unknown) (unknown) (no date) (unknown) (unknown) hydrocodone 7. 5 mg-acetaminophen 325 mg tablet 1 tab PO 08/27/22 [History (units unknown) (unknown) (unknown) (no date) (unknown) (unknown) in PT. [] (units unknown) (unknown) (unknown) (no date) (unknown) (unknown) instructed to report to the Emergency department, if these symptoms occur. (units unknown) (unknown) (unknown) (no date) (unknown) (unknown) instructed to stop if any side effects. [] (units unknown) (unknown) (unknown) (no date) (unknown) (unknown) intravenous dr ug use, sustained glucocorticoid use, osteoporosis, or a focal (units unknown) (unknown) (unknown) (no date) (unknown) (unknown) losartan 100 m g tablet 100 mg PO DAILY 08/27/22 [History Confirmed 08/27/22] (units unknown) (unknown) (unknown) (no date) (unknown) (unknown) losartan 50 mg tablet 50 mg PO DAILY 08/27/22 [History Confirmed 08/27/22] (units unknown) (unknown) (unknown) (no date) (unknown) (unknown) may occur. Occ asional wrong-word or 'sound-alike' substitutions may have (units unknown) (unknown) (unknown) (no date) (unknown) (unknown) meds. [] (units unknown) (unknown) (unknown) (no date) (unknown) (unknown) methocarbamol 750 mg tablet 750 mg PO BEDTIME 08/27/22 [History Confirmed (units unknown) (unknown) (unknown) (no date) (unknown) (unknown) multifactorial including both axial and radicular components.? She is had (units unknown) (unknown) (unknown) (no date) (unknown) (unknown) multiple epidu ral steroid injections in the past at [facility] without (units unknown) (unknown) (unknown) (no date) (unknown) (unknown) multiple level s of the lumbar spine.? She is also interested in a referral to (units unknown) (unknown) (unknown) (no date) (unknown) (unknown) negative, Hype ralgesia - negative (units unknown) (unknown) (unknown) (no date) (unknown) (unknown) neurological d eficit with progressive or disabling symptoms. (units unknown) (unknown) (unknown) (no date) (unknown) (unknown) occurred due t o the inherent limitations of voice recognition software. Please (units unknown) (unknown) (unknown) (no date) (unknown) (unknown) of Spinal Cord Injur y) (units unknown) (unknown) (unknown) (no date) (unknown) (unknown) omeprazole 20 mg capsule,delayed release 20 mg PO DAILY 08/27/22 [History (units unknown) (unknown) (unknown) (no date) (unknown) (unknown) or immunosuppr essive therapy, previous or current cancer diagnosis, history of (units unknown) (unknown) (unknown) (no date) (unknown) (unknown) pain. [] (units unknown) (unknown) (unknown) (no date) (unknown) (unknown) pregabalin 50 mg capsule 50 mg PO DAILY 08/27/22 [History Confirmed 08/27/22] (units unknown) (unknown) (unknown) (no date) (unknown) (unknown) read the note carefully and recognize, using context, where these substitutions (units unknown) (unknown) (unknown) (no date) (unknown) (unknown) record, includ ing relevant provider notes, laboratory work, and imaging. (units unknown) (unknown) (unknown) (no date) (unknown) (unknown) scale and/or p ain interferes with ADLs. (units unknown) (unknown) (unknown) (no date) (unknown) (unknown) simvastatin 40 mg tablet 40 mg PO BEDTIME 08/27/22 [History Confirmed 08/27/22] (units unknown) (unknown) (unknown) (no date) (unknown) (unknown) software. Alth ough every effort is made to edit content, excelsior cutter errors (units unknown) (unknown) (unknown) (no date) (unknown) (unknown) therapeutic in jections and surgery. The risks, consequences, alternatives and (units unknown) (unknown) (unknown) (no date) (unknown) (unknown) therapy. ?A re ferral was provided for the patient. [] (units unknown) (unknown) (unknown) (no date) (unknown) (unknown) vertebral body compression fractures.? No suspicious bony lesions.? (units unknown) (unknown) (unknown) (no date) (unknown) (unknown) visit. (units unknown) (unknown) (unknown) (no date) (unknown) (unknown) well as treatm ent options including medications, physical therapy/exercise, (units unknown) (unknown) (unknown) (no date) (unknown) (unknown) with future tr eatment planning. [] (units unknown) (unknown) Result panel 3 (unknown) (no date) (unknown) (unknown) (no value) (units unknown) (unknown) (unknown) (no date) (unknown) (unknown) (0=absent, 1=s light response, 2=brisk/normal, 3=very brisk, 4=clonus) (units unknown) (unknown) (unknown) (no date) (unknown) (unknown) (segments are from the International Standards for Neurological Classification (units unknown) (unknown) (unknown) (no date) (unknown) (unknown) - Activity: Co ntinue activity as tolerated. [] (units unknown) (unknown) (unknown) (no date) (unknown) (unknown) - Chiropractor , acupuncture[] (units unknown) (unknown) (unknown) (no date) (unknown) (unknown) - Continues cl inician directed home exercise program including exercises learned (units unknown) (unknown) (unknown) (no date) (unknown) (unknown) - Education: C auda equina and associated symptoms, including motor weakness, (units unknown) (unknown) (unknown) (no date) (unknown) (unknown) - FADIR: Unabl e to assess (units unknown) (unknown) (unknown) (no date) (unknown) (unknown) - Follow-up: [] (uni ts unknown) (unknown) (unknown) (no date) (unknown) (unknown) - Hip ROM is: Unable to assess (units unknown) (unknown) (unknown) (no date) (unknown) (unknown) - I discussed risks, benefits and side effects. Additionally, patient was (units unknown) (unknown) (unknown) (no date) (unknown) (unknown) - Imaging: No new imaging indicated at this time. [] (units unknown) (unknown) (unknown) (no date) (unknown) (unknown) - Interventional/Surgica l procedures: None indicated at this time. [] (units unknown) (unknown) (unknown) (no date) (unknown) (unknown) - Lumbar facet loading: Unable to assess (units unknown) (unknown) (unknown) (no date) (unknown) (unknown) - Medications: No new prescription at this time. Patient will continue current (units unknown) (unknown) (unknown) (no date) (unknown) (unknown) - Medications: acetaminophen, NSAIDS, neuropathics, muscle relaxants [] (units unknown) (unknown) (unknown) (no date) (unknown) (unknown) - Physical The rapy: Completed 6 week course in the last 6 months OR Patient (units unknown) (unknown) (unknown) (no date) (unknown) (unknown) - Physical therapy/modalities/DME : Patient will likely benefit from physical (units unknown) (unknown) (unknown) (no date) (unknown) (unknown) - Prescription provided and uptitration instructions given if necessary. [] (units unknown) (unknown) (unknown) (no date) (unknown) (unknown) - Previous [] on [] provided []% relief of pain for []. During that time patient (units unknown) (unknown) (unknown) (no date) (unknown) (unknown) - Referrals: N one indicated at this time. [] (units unknown) (unknown) (unknown) (no date) (unknown) (unknown) - SIJ provocat ion testing: Unable to assess (units unknown) (unknown) (unknown) (no date) (unknown) (unknown) - Seated strai ght Leg Raise: Negative bilaterally (units unknown) (unknown) (unknown) (no date) (unknown) (unknown) 08/27/22] (units unknown) (unknown) (unknown) (no date) (unknown) (unknown) 10/07/22 (units unknown) (unknown) (unknown) (no date) (unknown) (unknown) 10/07/22] (units unknown) (unknown) (unknown) (no date) (unknown) (unknown) 1. Lower lumba r facet arthropathy. (units unknown) (unknown) (unknown) (no date) (unknown) (unknown) 2. No abnormal motion on flexion and extension. (units unknown) (unknown) (unknown) (no date) (unknown) (unknown) 3. No pars defects.? (units unknown) (unknown) (unknown) (no date) (unknown) (unknown) 4 years (units unknown) (unknown) (unknown) (no date) (unknown) (unknown) 5834 (units unknown) (unknown) (unknown) (no date) (unknown) (unknown) 6 WEEK FOLLOW UP (un its unknown) (unknown) (unknown) (no date) (unknown) (unknown) ? Inspection - ? No gross appendicular or axial deformities (units unknown) (unknown) (unknown) (no date) (unknown) (unknown) ? Palpation -tenderness to palpation of the right lumbar paraspinous musculature (units unknown) (unknown) (unknown) (no date) (unknown) (unknown) ? ROM -unable to assess (units unknown) (unknown) (unknown) (no date) (unknown) (unknown) ? Special tests (uni ts unknown) (unknown) (unknown) (no date) (unknown) (unknown) ? (units unknown) (unknown) (unknown) (no date) (unknown) (unknown) ? Acetaminophen - current (units unknown) (unknown) (unknown) (no date) (unknown) (unknown) ? Antidepressants - current (units unknown) (unknown) (unknown) (no date) (unknown) (unknown) ? Antiepileptics - current (units unknown) (unknown) (unknown) (no date) (unknown) (unknown) ? Mu scle Relaxants - current (units unknown) (unknown) (unknown) (no date) (unknown) (unknown) ? NS AIDs - h/o heart disease (units unknown) (unknown) (unknown) (no date) (unknown) (unknown) ? Op ioids - current (units unknown) (unknown) (unknown) (no date) (unknown) (unknown) ? Steroids (units unknown) (unknown) (unknown) (no date) (unknown) (unknown) ? To picals - current (units unknown) (unknown) (unknown) (no date) (unknown) (unknown) Activities aff ected: walking, standing (units unknown) (unknown) (unknown) (no date) (unknown) (unknown) Age/Sex: 81 / F Date of Service: (units unknown) (unknown) (unknown) (no date) (unknown) (unknown) Aggravating fa ctors include: movement (units unknown) (unknown) (unknown) (no date) (unknown) (unknown) All other syst ems reviewed and are unremarkable except as noted in HPI. (units unknown) (unknown) (unknown) (no date) (unknown) (unknown) Allergies (units unknown) (unknown) (unknown) (no date) (unknown) (unknown) Amitriptyline 50mg 1-3 tablets QHS PRN pain/insomina (units unknown) (unknown) (unknown) (no date) (unknown) (unknown) [place] [address] (units unknown) (unknown) (unknown) (no date) (unknown) (unknown) Aortic regurgitation (units unknown) (unknown) (unknown) (no date) (unknown) (unknown) Approved by: Oscar Grissom M.D. on 08/27/2022 at 16:35 ? (units unknown) (unknown) (unknown) (no date) (unknown) (unknown) Assessment + Plan (u nits unknown) (unknown) (unknown) (no date) (unknown) (unknown) Assessment: (units unknown) (unknown) (unknown) (no date) (unknown) (unknown) Attending Dr: Jay Camarillo MD (units unknown) (unknown) (unknown) (no date) (unknown) (unknown) B/L L3-4 TFESI (SeaElio Boyd) 05/09/20 ? (units unknown) (unknown) (unknown) (no date) (unknown) (unknown) [facility] ngoing Downgoing (units unknown) (unknown) (unknown) (no date) (unknown) (unknown) Back pain, lumbosacr al (units unknown) (unknown) (unknown) (no date) (unknown) (unknown) Bones:? 5 nonrib-bearing vertebrae are present.? There is normal bony (units unknown) (unknown) (unknown) (no date) (unknown) (unknown) Bowel and blad tyler: Has had urinary as well as bowel incontinence for the past 3 (units unknown) (unknown) (unknown) (no date) (unknown) (unknown) Breast cancer (units unknown) (unknown) (unknown) (no date) (unknown) (unknown) CHF (congestiv e heart failure) (units unknown) (unknown) (unknown) (no date) (unknown) (unknown) COMPARISON:? I [facility], MR, MR LUMBAR SPINE WO CON, 04/16/2021, 14:10. (units unknown) (unknown) (unknown) (no date) (unknown) (unknown) COPD (chronic obstructive pulmonary disease) (units unknown) (unknown) (unknown) (no date) (unknown) (unknown) Carotid artery disea se (units unknown) (unknown) (unknown) (no date) (unknown) (unknown) Carpal tunnel syndro me (units unknown) (unknown) (unknown) (no date) (unknown) (unknown) Chart review: (units unknown) (unknown) (unknown) (no date) (unknown) (unknown) Chief Complaint (uni ts unknown) (unknown) (unknown) (no date) (unknown) (unknown) Chief Complain t: Low back and leg pain (units unknown) (unknown) (unknown) (no date) (unknown) (unknown) Chronic arthritis (u nits unknown) (unknown) (unknown) (no date) (unknown) (unknown) Confirmed 08/27/22] (units unknown) (unknown) (unknown) (no date) (unknown) (unknown) Conservative management includes: (units unknown) (unknown) (unknown) (no date) (unknown) (unknown) [facility]. [] (units unknown) (unknown) (unknown) (no date) (unknown) (unknown) Continue home exercise program. [] (units unknown) (unknown) (unknown) (no date) (unknown) (unknown) Current VAS: []/10 ( units unknown) (unknown) (unknown) (no date) (unknown) (unknown) Current pain treatments include: (units unknown) (unknown) (unknown) (no date) (unknown) (unknown) Cymbalta 60mg QD (un its unknown) (unknown) (unknown) (no date) (unknown) (unknown) : 2 Acct:[id number] (units unknown) (unknown) (unknown) (no date) (unknown) (unknown) Denies recent trauma, fever or weight loss of unknown origin, immunocompromise (units unknown) (unknown) (unknown) (no date) (unknown) (unknown) Dept at . (units unknown) (unknown) (unknown) (no date) (unknown) (unknown) Details: (units unknown) (unknown) (unknown) (no date) (unknown) (unknown) Dictated by: Oscar Grissom M.D. on 08/27/2022 at 16:33 ? ? (units unknown) (unknown) (unknown) (no date) (unknown) (unknown) Documented By: Jay Camarillo MD 10/06/22 1200 (units unknown) (unknown) (unknown) (no date) (unknown) (unknown) Draft (units unknown) (unknown) (unknown) (no date) (unknown) (unknown) Dysphagia (units unknown) (unknown) (unknown) (no date) (unknown) (unknown) Elevated liver enzym es (units unknown) (unknown) (unknown) (no date) (unknown) (unknown) Exam Narrative (unit s unknown) (unknown) (unknown) (no date) (unknown) (unknown) Exam Narrative: (uni ts unknown) (unknown) (unknown) (no date) (unknown) (unknown) Exam (units unknown) (unknown) (unknown) (no date) (unknown) (unknown) FINDINGS:? (units unknown) (unknown) (unknown) (no date) (unknown) (unknown) Fibromyalgia (units unknown) (unknown) (unknown) (no date) (unknown) (unknown) Flexion/extens ion:? There is diminished range of motion, with preserved normal (units unknown) (unknown) (unknown) (no date) (unknown) (unknown) GERD (gastroes ophageal reflux disease) (units unknown) (unknown) (unknown) (no date) (unknown) (unknown) Gait/Station -nonambulatory (units unknown) (unknown) (unknown) (no date) (unknown) (unknown) General: Well-nourished, well-developed, female in no acute distress (units unknown) (unknown) (unknown) (no date) (unknown) (unknown) HPI (units unknown) (unknown) (unknown) (no date) (unknown) (unknown) History of appendectomy (units unknown) (unknown) (unknown) (no date) (unknown) (unknown) History of j luis ast surgery (units unknown) (unknown) (unknown) (no date) (unknown) (unknown) History of cat aract extraction (units unknown) (unknown) (unknown) (no date) (unknown) (unknown) History of tonsillectomy (units unknown) (unknown) (unknown) (no date) (unknown) (unknown) Hyperglycemia (units unknown) (unknown) (unknown) (no date) (unknown) (unknown) Hypertension (units unknown) (unknown) (unknown) (no date) (unknown) (unknown) IMPRESSION:? (units unknown) (unknown) (unknown) (no date) (unknown) (unknown) INDICATIONS:? LOW BACK PAIN (units unknown) (unknown) (unknown) (no date) (unknown) (unknown) Insomnia (units unknown) (unknown) (unknown) (no date) (unknown) (unknown) Intake Clinical Staf f (units unknown) (unknown) (unknown) (no date) (unknown) (unknown) Intake Note: (units unknown) (unknown) (unknown) (no date) (unknown) (unknown) Intake perform ed by: Majo Damon (units unknown) (unknown) (unknown) (no date) (unknown) (unknown) Intake (units unknown) (unknown) (unknown) (no date) (unknown) (unknown) Interval History: (u nits unknown) (unknown) (unknown) (no date) (unknown) (unknown) Intervention:?Date:?Outcome:?? ? (units unknown) (unknown) (unknown) (no date) (unknown) (unknown) JUSTIFICATION OF MEDICAL NECESSITY (units unknown) (unknown) (unknown) (no date) (unknown) (unknown) L-spine/T-spin e/C-spin e MRI ordered to better delineate the anatomy and help (units unknown) (unknown) (unknown) (no date) (unknown) (unknown) L2 Hip Flexion /12/05? (units unknown) (unknown) (unknown) (no date) (unknown) (unknown) L2-3 MARCIAL (Wedia[facility] Boyd) 11/28/20 ? (units unknown) (unknown) (unknown) (no date) (unknown) (unknown) L2-3 MARCIAL ([facility]) 01/31/21 ? (units unknown) (unknown) (unknown) (no date) (unknown) (unknown) L3 Knee Extens ion 12/05 12/05 (units unknown) (unknown) (unknown) (no date) (unknown) (unknown) L3-4 MARCIAL ([facility]) 08/13/20 ? (units unknown) (unknown) (unknown) (no date) (unknown) (unknown) L3-4 Patella 2+ 2 (u nits unknown) (unknown) (unknown) (no date) (unknown) (unknown) L4 Ankle Dorsi flexion 12/05 12/05 (units unknown) (unknown) (unknown) (no date) (unknown) (unknown) L4-5 MARCIAL (WediaElio Boyd)? 01/07/22 most helpful so far (slight (units unknown) (unknown) (unknown) (no date) (unknown) (unknown) L5 Long Toe Ex tension 12/05 12/05 (units unknown) (unknown) (unknown) (no date) (unknown) (unknown) Leg pain, right (uni ts unknown) (unknown) (unknown) (no date) (unknown) (unknown) Loc: PAIN (units unknown) (unknown) (unknown) (no date) (unknown) (unknown) Low back pain (units unknown) (unknown) (unknown) (no date) (unknown) (unknown) Lumbar radiculopathy (units unknown) (unknown) (unknown) (no date) (unknown) (unknown) Lymphedema (units unknown) (unknown) (unknown) (no date) (unknown) (unknown) Lyrica 50mg TID (uni ts unknown) (unknown) (unknown) (no date) (unknown) (unknown) MSK: System re viewed and no additional complaints, except as documented. (units unknown) (unknown) (unknown) (no date) (unknown) (unknown) Medical Histor y (Updated 08/27/22 @ 14:12 by Jay Camarillo MD) (units unknown) (unknown) (unknown) (no date) (unknown) (unknown) Medications (units unknown) (unknown) (unknown) (no date) (unknown) (unknown) Medications: (units unknown) (unknown) (unknown) (no date) (unknown) (unknown) Morbid obesity (unit s unknown) (unknown) (unknown) (no date) (unknown) (unknown) Motor (units unknown) (unknown) (unknown) (no date) (unknown) (unknown) Musculoskeletal: (un its unknown) (unknown) (unknown) (no date) (unknown) (unknown) Neuro: System reviewed and no additional complaints, except as documented. (units unknown) (unknown) (unknown) (no date) (unknown) (unknown) Neurologic: (units unknown) (unknown) (unknown) (no date) (unknown) (unknown) No Known Drug Allergies Allergy (Verified 10/07/22 10:23) (units unknown) (unknown) (unknown) (no date) (unknown) (unknown) [place] 7.5-325mg Q6hr (units unknown) (unknown) (unknown) (no date) (unknown) (unknown) Not indicated at this time. [] (units unknown) (unknown) (unknown) (no date) (unknown) (unknown) Numbness/Tingl ing: all 4 extremity tingling due to neuropathy (units unknown) (unknown) (unknown) (no date) (unknown) (unknown) Objective Data (unit s unknown) (unknown) (unknown) (no date) (unknown) (unknown) Objective Data: (uni ts unknown) (unknown) (unknown) (no date) (unknown) (unknown) Oblique films: ? No pars defects. (units unknown) (unknown) (unknown) (no date) (unknown) (unknown) Onset/Context of param n: (units unknown) (unknown) (unknown) (no date) (unknown) (unknown) Onset: Insidious (un its unknown) (unknown) (unknown) (no date) (unknown) (unknown) Other: Denies (units unknown) (unknown) (unknown) (no date) (unknown) (unknown) PFSH (units unknown) (unknown) (unknown) (no date) (unknown) (unknown) PROCEDURE:? XR LUMBAR SPINE MIN 4V (units unknown) (unknown) (unknown) (no date) (unknown) (unknown) PT: Had 4 sess ions of home health with Starla (units unknown) (unknown) (unknown) (no date) (unknown) (unknown) Pain Visit (units unknown) (unknown) (unknown) (no date) (unknown) (unknown) Pain location/Radiation: Middle low back, radiating to the right low back, right (units unknown) (unknown) (unknown) (no date) (unknown) (unknown) Pain ratin /10 today, 10/10 at worst (units unknown) (unknown) (unknown) (no date) (unknown) (unknown) Past medical, surgical, social, and family history is unchanged from prior (units unknown) (unknown) (unknown) (no date) (unknown) (unknown) Patient was conor miller seen here on 08/27/2022. (units unknown) (unknown) (unknown) (no date) (unknown) (unknown) Patient will r eturn for []. Risks and benefits were discussed. (units unknown) (unknown) (unknown) (no date) (unknown) (unknown) Patient's pain has been present for >6 weeks and is an average of >6/10 on 0-10 (units unknown) (unknown) (unknown) (no date) (unknown) (unknown) Patient: Dulce Butt MR#: [id number] (units unknown) (unknown) (unknown) (no date) (unknown) (unknown) Peripheral neuropath y (units unknown) (unknown) (unknown) (no date) (unknown) (unknown) Plan (units unknown) (unknown) (unknown) (no date) (unknown) (unknown) Plan/Recommendations : (units unknown) (unknown) (unknown) (no date) (unknown) (unknown) Prescriptions Written: [] (units unknown) (unknown) (unknown) (no date) (unknown) (unknown) Previous Visit Assessment: Mor is an 81-year-old female presenting for (units unknown) (unknown) (unknown) (no date) (unknown) (unknown) Previous pain treatments included: (units unknown) (unknown) (unknown) (no date) (unknown) (unknown) Psych: Appropr iate affect, answers questions appropriately (units unknown) (unknown) (unknown) (no date) (unknown) (unknown) Quality and ti pj of pain: Sharp in back, sharp in leg; constant (units unknown) (unknown) (unknown) (no date) (unknown) (unknown) ROS Narrative (units unknown) (unknown) (unknown) (no date) (unknown) (unknown) ROS Narrative: (unit s unknown) (unknown) (unknown) (no date) (unknown) (unknown) ROS (units unknown) (unknown) (unknown) (no date) (unknown) (unknown) Reason For Visit (un its unknown) (unknown) (unknown) (no date) (unknown) (unknown) Red flag symptoms: ( units unknown) (unknown) (unknown) (no date) (unknown) (unknown) Reflex Right Left (u nits unknown) (unknown) (unknown) (no date) (unknown) (unknown) Reflexes: (units unknown) (unknown) (unknown) (no date) (unknown) (unknown) Relieving fact ors include: recliner, medications (units unknown) (unknown) (unknown) (no date) (unknown) (unknown) Respiratory: Non-labored breathing pattern on RA. No respiratory distress (units unknown) (unknown) (unknown) (no date) (unknown) (unknown) Rheumatology g herbbrandi her history of arthritis of multiple joints.' (units unknown) (unknown) (unknown) (no date) (unknown) (unknown) Robaxin 750mg QID (u nits unknown) (unknown) (unknown) (no date) (unknown) (unknown) S1 Ankle Plantarflexion 5/5 5/5 (units unknown) (unknown) (unknown) (no date) (unknown) (unknown) SVT (supravent ricular tachycardia) (units unknown) (unknown) (unknown) (no date) (unknown) (unknown) Saddle anesthe ban: denies (units unknown) (unknown) (unknown) (no date) (unknown) (unknown) Segment Action Right Left (units unknown) (unknown) (unknown) (no date) (unknown) (unknown) Segment Reflex Right Left (units unknown) (unknown) (unknown) (no date) (unknown) (unknown) Sensory -? Int act to light touch at bilateral lower extremities. Allodynia (units unknown) (unknown) (unknown) (no date) (unknown) (unknown) Signed By: (units unknown) (unknown) (unknown) (no date) (unknown) (unknown) Skin: No appre ciable rashes or skin breakdown (units unknown) (unknown) (unknown) (no date) (unknown) (unknown) Smoking Status : Former smoker (units unknown) (unknown) (unknown) (no date) (unknown) (unknown) Soft tissues:? Overlying bowel gas pattern is normal.? No suspicious soft tissue (units unknown) (unknown) (unknown) (no date) (unknown) (unknown) Surgery: Denies (uni ts unknown) (unknown) (unknown) (no date) (unknown) (unknown) Surgical Histo ry (units unknown) (unknown) (unknown) (no date) (unknown) (unknown) TECHNIQUE:? 6 views of the lumbar spine acquired, including flexion and (units unknown) (unknown) (unknown) (no date) (unknown) (unknown) [facility] (units unknown) (unknown) (unknown) (no date) (unknown) (unknown) This note may have been all or partially generated using voice recognition (units unknown) (unknown) (unknown) (no date) (unknown) (unknown) Tobacco + Subs tance Use (units unknown) (unknown) (unknown) (no date) (unknown) (unknown) Tobacco Status (unit s unknown) (unknown) (unknown) (no date) (unknown) (unknown) Today I have r eviewed available medical information in the patient's medical (units unknown) (unknown) (unknown) (no date) (unknown) (unknown) Upper Motor Ne uron Signs: (units unknown) (unknown) (unknown) (no date) (unknown) (unknown) Urinary incontinence (units unknown) (unknown) (unknown) (no date) (unknown) (unknown) Visit Reasons: 6WK FOLLOW UP (units unknown) (unknown) (unknown) (no date) (unknown) (unknown) Voltaren gel - on knee and anterior leg (units unknown) (unknown) (unknown) (no date) (unknown) (unknown) [place] 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 (units unknown) (unknown) (unknown) (no date) (unknown) (unknown) We reviewed et iology, predisposing factor(s), natural course, imaging results as (units unknown) (unknown) (unknown) (no date) (unknown) (unknown) Weakness: b/l leg weakness (units unknown) (unknown) (unknown) (no date) (unknown) (unknown) able to partic ipate in ADLs, had improved sleep, improved mobility, etc. (units unknown) (unknown) (unknown) (no date) (unknown) (unknown) alignment. (units unknown) (unknown) (unknown) (no date) (unknown) (unknown) alignment.? No (unit s unknown) (unknown) (unknown) (no date) (unknown) (unknown) amitriptyline 10 mg tablet 10 mg PO BEDTIME 10/07/22 [History Confirmed (units unknown) (unknown) (unknown) (no date) (unknown) (unknown) amitriptyline 50 mg tablet 50 mg PO BEDTIME 08/27/22 [History Confirmed (units unknown) (unknown) (unknown) (no date) (unknown) (unknown) and oblique views. ( units unknown) (unknown) (unknown) (no date) (unknown) (unknown) and strengthen ing of the lower extremities her goal is to be able to transfer (units unknown) (unknown) (unknown) (no date) (unknown) (unknown) as it is quite expensive for her to travel given her immobility.? She may also (units unknown) (unknown) (unknown) (no date) (unknown) (unknown) atorvastatin 2 0 mg tablet 20 mg PO BEDTIME 08/27/22 [History Confirmed 08/27/22] (units unknown) (unknown) (unknown) (no date) (unknown) (unknown) be a candidate for mild procedure given ligamentum flavum hypertrophy of (units unknown) (unknown) (unknown) (no date) (unknown) (unknown) benefit.? Not interested in interventions today there focus on physical therapy (units unknown) (unknown) (unknown) (no date) (unknown) (unknown) benefits of va rious treatment options were discussed with the patient in great (units unknown) (unknown) (unknown) (no date) (unknown) (unknown) bowel/bladder dysfunction, and perineal numbness were discussed. The patient was (units unknown) (unknown) (unknown) (no date) (unknown) (unknown) buttock, anter ior thigh, anterior lower leg and dorsum of foot (units unknown) (unknown) (unknown) (no date) (unknown) (unknown) calcifications.? (un its unknown) (unknown) (unknown) (no date) (unknown) (unknown) cannot tolerat e physical therapy at the current time due to the intensity of the (units unknown) (unknown) (unknown) (no date) (unknown) (unknown) carvedilol 12. 5 mg tablet 12.5 mg PO ONCE 08/27/22 [History Confirmed 08/27/22] (units unknown) (unknown) (unknown) (no date) (unknown) (unknown) decrease of le g and back pain) (units unknown) (unknown) (unknown) (no date) (unknown) (unknown) detail. (units unknown) (unknown) (unknown) (no date) (unknown) (unknown) duloxetine 60 mg capsule,delayed release 60 mg PO DAILY 08/27/22 [History (units unknown) (unknown) (unknown) (no date) (unknown) (unknown) extension views (uni ts unknown) (unknown) (unknown) (no date) (unknown) (unknown) from [facility] with less assistance.? We will arrange for [place] home health care (units unknown) (unknown) (unknown) (no date) (unknown) (unknown) furosemide 40 mg tablet 40 mg PO DAILY 08/27/22 [History Confirmed 08/27/22] (units unknown) (unknown) (unknown) (no date) (unknown) (unknown) further evalua tion of low back and right leg pain.? Pain is likely (units unknown) (unknown) (unknown) (no date) (unknown) (unknown) have occurred. If there are any questions, please contact the Medical Records (units unknown) (unknown) (unknown) (no date) (unknown) (unknown) hydrocodone 7. 5 mg-acetaminophen 325 mg tablet 1 tab PO 08/27/22 [History (units unknown) (unknown) (unknown) (no date) (unknown) (unknown) in PT. [] (units unknown) (unknown) (unknown) (no date) (unknown) (unknown) instructed to report to the Emergency department, if these symptoms occur. (units unknown) (unknown) (unknown) (no date) (unknown) (unknown) instructed to stop if any side effects. [] (units unknown) (unknown) (unknown) (no date) (unknown) (unknown) intravenous dr ug use, sustained glucocorticoid use, osteoporosis, or a focal (units unknown) (unknown) (unknown) (no date) (unknown) (unknown) losartan 100 m g tablet 100 mg PO DAILY 08/27/22 [History Confirmed 08/27/22] (units unknown) (unknown) (unknown) (no date) (unknown) (unknown) losartan 50 mg tablet 50 mg PO DAILY 08/27/22 [History Confirmed 08/27/22] (units unknown) (unknown) (unknown) (no date) (unknown) (unknown) may occur. Occ asional wrong-word or 'sound-alike' substitutions may have (units unknown) (unknown) (unknown) (no date) (unknown) (unknown) meds. [] (units unknown) (unknown) (unknown) (no date) (unknown) (unknown) methocarbamol 750 mg tablet 750 mg PO BEDTIME 08/27/22 [History Confirmed (units unknown) (unknown) (unknown) (no date) (unknown) (unknown) multifactorial including both axial and radicular components.? She is had (units unknown) (unknown) (unknown) (no date) (unknown) (unknown) multiple epidu ral steroid injections in the past at [facility] without (units unknown) (unknown) (unknown) (no date) (unknown) (unknown) multiple level s of the lumbar spine.? She is also interested in a referral to (units unknown) (unknown) (unknown) (no date) (unknown) (unknown) negative, Hype ralgesia - negative (units unknown) (unknown) (unknown) (no date) (unknown) (unknown) neurological d eficit with progressive or disabling symptoms. (units unknown) (unknown) (unknown) (no date) (unknown) (unknown) occurred due t o the inherent limitations of voice recognition software. Please (units unknown) (unknown) (unknown) (no date) (unknown) (unknown) of Spinal Cord Injur y) (units unknown) (unknown) (unknown) (no date) (unknown) (unknown) omeprazole 20 mg capsule,delayed release 20 mg PO DAILY 08/27/22 [History (units unknown) (unknown) (unknown) (no date) (unknown) (unknown) or immunosuppr essive therapy, previous or current cancer diagnosis, history of (units unknown) (unknown) (unknown) (no date) (unknown) (unknown) pain. [] (units unknown) (unknown) (unknown) (no date) (unknown) (unknown) pregabalin 50 mg capsule 50 mg PO DAILY 08/27/22 [History Confirmed 08/27/22] (units unknown) (unknown) (unknown) (no date) (unknown) (unknown) read the note carefully and recognize, using context, where these substitutions (units unknown) (unknown) (unknown) (no date) (unknown) (unknown) record, includ ing relevant provider notes, laboratory work, and imaging. (units unknown) (unknown) (unknown) (no date) (unknown) (unknown) scale and/or p ain interferes with ADLs. (units unknown) (unknown) (unknown) (no date) (unknown) (unknown) simvastatin 40 mg tablet 40 mg PO BEDTIME 08/27/22 [History Confirmed 08/27/22] (units unknown) (unknown) (unknown) (no date) (unknown) (unknown) software. Alth ough every effort is made to edit content, excelsior cutter errors (units unknown) (unknown) (unknown) (no date) (unknown) (unknown) therapeutic in jections and surgery. The risks, consequences, alternatives and (units unknown) (unknown) (unknown) (no date) (unknown) (unknown) therapy. ?A re ferral was provided for the patient. [] (units unknown) (unknown) (unknown) (no date) (unknown) (unknown) vertebral body compression fractures.? No suspicious bony lesions.? (units unknown) (unknown) (unknown) (no date) (unknown) (unknown) visit. (units unknown) (unknown) (unknown) (no date) (unknown) (unknown) well as treatm ent options including medications, physical therapy/exercise, (units unknown) (unknown) (unknown) (no date) (unknown) (unknown) with future tr eatment planning. [] (units unknown) (unknown) Result panel 4 (unknown) (no date) (unknown) (unknown) (no value) (units unknown) (unknown) (unknown) (no date) (unknown) (unknown) (0=absent, 1=s light response, 2=brisk/normal, 3=very brisk, 4=clonus) (units unknown) (unknown) (unknown) (no date) (unknown) (unknown) (segments are from the International Standards for Neurological Classification (units unknown) (unknown) (unknown) (no date) (unknown) (unknown) - Activity: Co ntinue activity as tolerated. [] (units unknown) (unknown) (unknown) (no date) (unknown) (unknown) - Chiropractor , acupuncture[] (units unknown) (unknown) (unknown) (no date) (unknown) (unknown) - Continues cl inician directed home exercise program including exercises learned (units unknown) (unknown) (unknown) (no date) (unknown) (unknown) - Education: C auda equina and associated symptoms, including motor weakness, (units unknown) (unknown) (unknown) (no date) (unknown) (unknown) - FADIR: Unabl e to assess (units unknown) (unknown) (unknown) (no date) (unknown) (unknown) - Follow-up: [] (uni ts unknown) (unknown) (unknown) (no date) (unknown) (unknown) - Hip ROM is: Unable to assess (units unknown) (unknown) (unknown) (no date) (unknown) (unknown) - I discussed risks, benefits and side effects. Additionally, patient was (units unknown) (unknown) (unknown) (no date) (unknown) (unknown) - Imaging: No new imaging indicated at this time. [] (units unknown) (unknown) (unknown) (no date) (unknown) (unknown) - Interventional/Surgica l procedures: None indicated at this time. [] (units unknown) (unknown) (unknown) (no date) (unknown) (unknown) - Lumbar facet loading: Unable to assess (units unknown) (unknown) (unknown) (no date) (unknown) (unknown) - Medications: No new prescription at this time. Patient will continue current (units unknown) (unknown) (unknown) (no date) (unknown) (unknown) - Medications: acetaminophen, NSAIDS, neuropathics, muscle relaxants [] (units unknown) (unknown) (unknown) (no date) (unknown) (unknown) - Physical The rapy: Completed 6 week course in the last 6 months [place] Patient (units unknown) (unknown) (unknown) (no date) (unknown) (unknown) - Physical therapy/modalities/DME : Patient will likely benefit from physical (units unknown) (unknown) (unknown) (no date) (unknown) (unknown) - Prescription provided and uptitration instructions given if necessary. [] (units unknown) (unknown) (unknown) (no date) (unknown) (unknown) - Previous [] on [] provided []% relief of pain for []. During that time patient (units unknown) (unknown) (unknown) (no date) (unknown) (unknown) - Referrals: N one indicated at this time. [] (units unknown) (unknown) (unknown) (no date) (unknown) (unknown) - SIJ provocat ion testing: Unable to assess (units unknown) (unknown) (unknown) (no date) (unknown) (unknown) - Seated strai ght Leg Raise: Negative bilaterally (units unknown) (unknown) (unknown) (no date) (unknown) (unknown) 08/27/22] (units unknown) (unknown) (unknown) (no date) (unknown) (unknown) 10/07/22 (units unknown) (unknown) (unknown) (no date) (unknown) (unknown) 10/07/22] (units unknown) (unknown) (unknown) (no date) (unknown) (unknown) 1. Lower lumba r facet arthropathy. (units unknown) (unknown) (unknown) (no date) (unknown) (unknown) 2. No abnormal motion on flexion and extension. (units unknown) (unknown) (unknown) (no date) (unknown) (unknown) 3. No pars defects.? (units unknown) (unknown) (unknown) (no date) (unknown) (unknown) 4 years (units unknown) (unknown) (unknown) (no date) (unknown) (unknown) 5834 (units unknown) (unknown) (unknown) (no date) (unknown) (unknown) 6 WEEK FOLLOW UP (un its unknown) (unknown) (unknown) (no date) (unknown) (unknown) ? Inspection - ? No gross appendicular or axial deformities (units unknown) (unknown) (unknown) (no date) (unknown) (unknown) ? Palpation -tenderness to palpation of the right lumbar paraspinous musculature (units unknown) (unknown) (unknown) (no date) (unknown) (unknown) ? ROM -unable to assess (units unknown) (unknown) (unknown) (no date) (unknown) (unknown) ? Special tests (uni ts unknown) (unknown) (unknown) (no date) (unknown) (unknown) ? (units unknown) (unknown) (unknown) (no date) (unknown) (unknown) ? Acetaminophen - current (units unknown) (unknown) (unknown) (no date) (unknown) (unknown) ? Antidepressants - current (units unknown) (unknown) (unknown) (no date) (unknown) (unknown) ? Antiepileptics - current (units unknown) (unknown) (unknown) (no date) (unknown) (unknown) ? Mu scle Relaxants - current (units unknown) (unknown) (unknown) (no date) (unknown) (unknown) ? NS AIDs - h/o heart disease (units unknown) (unknown) (unknown) (no date) (unknown) (unknown) ? Op ioids - current (units unknown) (unknown) (unknown) (no date) (unknown) (unknown) ? Steroids (units unknown) (unknown) (unknown) (no date) (unknown) (unknown) ? To picals - current (units unknown) (unknown) (unknown) (no date) (unknown) (unknown) Activities aff ected: walking, standing (units unknown) (unknown) (unknown) (no date) (unknown) (unknown) Age/Sex: 81 / F Date of Service: (units unknown) (unknown) (unknown) (no date) (unknown) (unknown) Aggravating fa ctors include: movement (units unknown) (unknown) (unknown) (no date) (unknown) (unknown) All other syst ems reviewed and are unremarkable except as noted in HPI. (units unknown) (unknown) (unknown) (no date) (unknown) (unknown) Allergies (units unknown) (unknown) (unknown) (no date) (unknown) (unknown) Amitriptyline 50mg 1-3 tablets QHS PRN pain/insomina (units unknown) (unknown) (unknown) (no date) (unknown) (unknown) [place] [address] (units unknown) (unknown) (unknown) (no date) (unknown) (unknown) Aortic regurgitation (units unknown) (unknown) (unknown) (no date) (unknown) (unknown) Approved by: Oscar Grissom M.D. on 08/27/2022 at 16:35 ? (units unknown) (unknown) (unknown) (no date) (unknown) (unknown) Assessment + Plan (u nits unknown) (unknown) (unknown) (no date) (unknown) (unknown) Assessment: (units unknown) (unknown) (unknown) (no date) (unknown) (unknown) Attending Dr: Jay Camarillo MD (units unknown) (unknown) (unknown) (no date) (unknown) (unknown) B/L L3-4 TFESI ([facility]) 05/09/20 ? (units unknown) (unknown) (unknown) (no date) (unknown) (unknown) [facility] n[facility] Downgoing (units unknown) (unknown) (unknown) (no date) (unknown) (unknown) Back pain, lumbosacr al (units unknown) (unknown) (unknown) (no date) (unknown) (unknown) Bones:? 5 nonrib-bearing vertebrae are present.? There is normal bony (units unknown) (unknown) (unknown) (no date) (unknown) (unknown) Bowel and blad tyler: Has had urinary as well as bowel incontinence for the past 3 (units unknown) (unknown) (unknown) (no date) (unknown) (unknown) Breast cancer (units unknown) (unknown) (unknown) (no date) (unknown) (unknown) CHF (congestiv e heart failure) (units unknown) (unknown) (unknown) (no date) (unknown) (unknown) COMPARISON:? I [facility], MR, MR LUMBAR SPINE WO CON, 04/16/2021, 14:10. (units unknown) (unknown) (unknown) (no date) (unknown) (unknown) COPD (chronic obstructive pulmonary disease) (units unknown) (unknown) (unknown) (no date) (unknown) (unknown) Carotid artery disea se (units unknown) (unknown) (unknown) (no date) (unknown) (unknown) Carpal tunnel syndro me (units unknown) (unknown) (unknown) (no date) (unknown) (unknown) Chart review: (units unknown) (unknown) (unknown) (no date) (unknown) (unknown) Chief Complaint (uni ts unknown) (unknown) (unknown) (no date) (unknown) (unknown) Chief Complain t: Low back and leg pain (units unknown) (unknown) (unknown) (no date) (unknown) (unknown) Chronic arthritis (u nits unknown) (unknown) (unknown) (no date) (unknown) (unknown) Confirmed 08/27/22] (units unknown) (unknown) (unknown) (no date) (unknown) (unknown) Conservative management includes: (units unknown) (unknown) (unknown) (no date) (unknown) (unknown) Continue curre physical therapy. [] (units unknown) (unknown) (unknown) (no date) (unknown) (unknown) Continue home exercise program. [] (units unknown) (unknown) (unknown) (no date) (unknown) (unknown) Current VAS: []/10 ( units unknown) (unknown) (unknown) (no date) (unknown) (unknown) Current pain treatments include: (units unknown) (unknown) (unknown) (no date) (unknown) (unknown) Cymbalta 60mg QD (un its unknown) (unknown) (unknown) (no date) (unknown) (unknown) : 2 Acct:[id number] (units unknown) (unknown) (unknown) (no date) (unknown) (unknown) Denies recent trauma, fever or weight loss of unknown origin, immunocompromise (units unknown) (unknown) (unknown) (no date) (unknown) (unknown) Dept at [phone]. (units unknown) (unknown) (unknown) (no date) (unknown) (unknown) Details: (units unknown) (unknown) (unknown) (no date) (unknown) (unknown) Dictated by: Oscar Grissom M.D. on 08/27/2022 at 16:33 ? ? (units unknown) (unknown) (unknown) (no date) (unknown) (unknown) Documented By: Jay Camarillo MD 10/06/22 1200 (units unknown) (unknown) (unknown) (no date) (unknown) (unknown) Draft (units unknown) (unknown) (unknown) (no date) (unknown) (unknown) Dysphagia (units unknown) (unknown) (unknown) (no date) (unknown) (unknown) Elevated liver enzym es (units unknown) (unknown) (unknown) (no date) (unknown) (unknown) Exam Narrative (unit s unknown) (unknown) (unknown) (no date) (unknown) (unknown) Exam Narrative: (uni ts unknown) (unknown) (unknown) (no date) (unknown) (unknown) Exam (units unknown) (unknown) (unknown) (no date) (unknown) (unknown) FINDINGS:? (units unknown) (unknown) (unknown) (no date) (unknown) (unknown) Fibromyalgia (units unknown) (unknown) (unknown) (no date) (unknown) (unknown) Flexion/extens ion:? There is diminished range of motion, with preserved normal (units unknown) (unknown) (unknown) (no date) (unknown) (unknown) GERD (gastroes ophageal reflux disease) (units unknown) (unknown) (unknown) (no date) (unknown) (unknown) Gait/Station -nonambulatory (units unknown) (unknown) (unknown) (no date) (unknown) (unknown) General: Well-nourished, well-developed, female in no acute distress (units unknown) (unknown) (unknown) (no date) (unknown) (unknown) HPI (units unknown) (unknown) (unknown) (no date) (unknown) (unknown) History of appendectomy (units unknown) (unknown) (unknown) (no date) (unknown) (unknown) History of j luis ast surgery (units unknown) (unknown) (unknown) (no date) (unknown) (unknown) History of cat aract extraction (units unknown) (unknown) (unknown) (no date) (unknown) (unknown) History of tonsillectomy (units unknown) (unknown) (unknown) (no date) (unknown) (unknown) Hyperglycemia (units unknown) (unknown) (unknown) (no date) (unknown) (unknown) Hypertension (units unknown) (unknown) (unknown) (no date) (unknown) (unknown) IMPRESSION:? (units unknown) (unknown) (unknown) (no date) (unknown) (unknown) INDICATIONS:? LOW BACK PAIN (units unknown) (unknown) (unknown) (no date) (unknown) (unknown) Insomnia (units unknown) (unknown) (unknown) (no date) (unknown) (unknown) Intake Clinical Staf f (units unknown) (unknown) (unknown) (no date) (unknown) (unknown) Intake Note: (units unknown) (unknown) (unknown) (no date) (unknown) (unknown) Intake perform ed by: Majo Damon (units unknown) (unknown) (unknown) (no date) (unknown) (unknown) Intake (units unknown) (unknown) (unknown) (no date) (unknown) (unknown) Interval History: (u nits unknown) (unknown) (unknown) (no date) (unknown) (unknown) Intervention:?Date:?Outcome:?? ? (units unknown) (unknown) (unknown) (no date) (unknown) (unknown) JUSTIFICATION OF MEDICAL NECESSITY (units unknown) (unknown) (unknown) (no date) (unknown) (unknown) L-spine/T-spin e/C-spin e MRI ordered to better delineate the anatomy and help (units unknown) (unknown) (unknown) (no date) (unknown) (unknown) L2 Hip Flexion 12/05 12/05? (units unknown) (unknown) (unknown) (no date) (unknown) (unknown) L2-3 [facility] ([facility]) 11/28/20 ? (units unknown) (unknown) (unknown) (no date) (unknown) (unknown) L2-3 [facility] ([facility]) 01/31/21 ? (units unknown) (unknown) (unknown) (no date) (unknown) (unknown) L3 Knee Extens ion 5/5 5/5 (units unknown) (unknown) (unknown) (no date) (unknown) (unknown) L3-4 [facility] ([facility]) 08/13/20 ? (units unknown) (unknown) (unknown) (no date) (unknown) (unknown) L3-4 Patella 2+ 2 (u nits unknown) (unknown) (unknown) (no date) (unknown) (unknown) L4 Ankle Dorsi flexion 5/5 5/5 (units unknown) (unknown) (unknown) (no date) (unknown) (unknown) L4-5 [facility] ([facility])? 01/07/22 most helpful so far (slight (units unknown) (unknown) (unknown) (no date) (unknown) (unknown) L5 Long Toe Ex tension 5/5 5/5 (units unknown) (unknown) (unknown) (no date) (unknown) (unknown) Leg pain, right (uni ts unknown) (unknown) (unknown) (no date) (unknown) (unknown) Loc: PAIN (units unknown) (unknown) (unknown) (no date) (unknown) (unknown) Low back pain (units unknown) (unknown) (unknown) (no date) (unknown) (unknown) Lumbar radiculopathy (units unknown) (unknown) (unknown) (no date) (unknown) (unknown) Lymphedema (units unknown) (unknown) (unknown) (no date) (unknown) (unknown) Lyrica 50mg TID (uni ts unknown) (unknown) (unknown) (no date) (unknown) (unknown) MSK: System re viewed and no additional complaints, except as documented. (units unknown) (unknown) (unknown) (no date) (unknown) (unknown) Medical Histor y (Updated 08/27/22 @ 14:12 by Jay Camarillo MD) (units unknown) (unknown) (unknown) (no date) (unknown) (unknown) Medications (units unknown) (unknown) (unknown) (no date) (unknown) (unknown) Medications: (units unknown) (unknown) (unknown) (no date) (unknown) (unknown) Morbid obesity (unit s unknown) (unknown) (unknown) (no date) (unknown) (unknown) Motor (units unknown) (unknown) (unknown) (no date) (unknown) (unknown) Musculoskeletal: (un its unknown) (unknown) (unknown) (no date) (unknown) (unknown) Neuro: System reviewed and no additional complaints, except as documented. (units unknown) (unknown) (unknown) (no date) (unknown) (unknown) Neurologic: (units unknown) (unknown) (unknown) (no date) (unknown) (unknown) No Known Drug Allergies Allergy (Verified 10/07/22 10:23) (units unknown) (unknown) (unknown) (no date) (unknown) (unknown) [place] 7.5-325mg Q6hr (units unknown) (unknown) (unknown) (no date) (unknown) (unknown) Not indicated at this time. [] (units unknown) (unknown) (unknown) (no date) (unknown) (unknown) Numbness/Tingl ing: all 4 extremity tingling due to neuropathy (units unknown) (unknown) (unknown) (no date) (unknown) (unknown) Objective Data (unit s unknown) (unknown) (unknown) (no date) (unknown) (unknown) Objective Data: (uni ts unknown) (unknown) (unknown) (no date) (unknown) (unknown) Oblique films: ? No pars defects. (units unknown) (unknown) (unknown) (no date) (unknown) (unknown) Onset/Context of param n: (units unknown) (unknown) (unknown) (no date) (unknown) (unknown) Onset: Insidious (un its unknown) (unknown) (unknown) (no date) (unknown) (unknown) Other: Denies (units unknown) (unknown) (unknown) (no date) (unknown) (unknown) PFSH (units unknown) (unknown) (unknown) (no date) (unknown) (unknown) PROCEDURE:? XR LUMBAR SPINE MIN 4V (units unknown) (unknown) (unknown) (no date) (unknown) (unknown) PT: Had 4 sess ions of home health with Starla (units unknown) (unknown) (unknown) (no date) (unknown) (unknown) Pain Visit (units unknown) (unknown) (unknown) (no date) (unknown) (unknown) Pain location/Radiation: Middle low back, radiating to the right low back, right (units unknown) (unknown) (unknown) (no date) (unknown) (unknown) Pain ratin /10 today, 10/10 at worst (units unknown) (unknown) (unknown) (no date) (unknown) (unknown) Past medical, surgical, social, and family history is unchanged from prior (units unknown) (unknown) (unknown) (no date) (unknown) (unknown) Patient was conor miller seen here on 08/27/2022. (units unknown) (unknown) (unknown) (no date) (unknown) (unknown) Patient will r eturn for []. Risks and benefits were discussed. (units unknown) (unknown) (unknown) (no date) (unknown) (unknown) Patient's pain has been present for >6 weeks and is an average of >6/10 on 0-10 (units unknown) (unknown) (unknown) (no date) (unknown) (unknown) Patient: Dulce Butt MR#: [id number] (units unknown) (unknown) (unknown) (no date) (unknown) (unknown) Peripheral neuropath y (units unknown) (unknown) (unknown) (no date) (unknown) (unknown) Plan (units unknown) (unknown) (unknown) (no date) (unknown) (unknown) Plan/Recommendations : (units unknown) (unknown) (unknown) (no date) (unknown) (unknown) Prescriptions Written: [] (units unknown) (unknown) (unknown) (no date) (unknown) (unknown) Previous Visit Assessment: 'Dulce is an 81-year-old female presenting for (units unknown) (unknown) (unknown) (no date) (unknown) (unknown) Previous pain treatments included: (units unknown) (unknown) (unknown) (no date) (unknown) (unknown) Psych: Appropr iate affect, answers questions appropriately (units unknown) (unknown) (unknown) (no date) (unknown) (unknown) Quality and ti pj of pain: Sharp in back, sharp in leg; constant (units unknown) (unknown) (unknown) (no date) (unknown) (unknown) ROS Narrative (units unknown) (unknown) (unknown) (no date) (unknown) (unknown) ROS Narrative: (unit s unknown) (unknown) (unknown) (no date) (unknown) (unknown) ROS (units unknown) (unknown) (unknown) (no date) (unknown) (unknown) Reason For Visit (un its unknown) (unknown) (unknown) (no date) (unknown) (unknown) Red flag symptoms: ( units unknown) (unknown) (unknown) (no date) (unknown) (unknown) Reflex Right Left (u nits unknown) (unknown) (unknown) (no date) (unknown) (unknown) Reflexes: (units unknown) (unknown) (unknown) (no date) (unknown) (unknown) Relieving fact ors include: recliner, medications (units unknown) (unknown) (unknown) (no date) (unknown) (unknown) Respiratory: Non-labored breathing pattern on RA. No respiratory distress (units unknown) (unknown) (unknown) (no date) (unknown) (unknown) Rheumatology marilou lopez her history of arthritis of multiple joints.' (units unknown) (unknown) (unknown) (no date) (unknown) (unknown) Robaxin 750mg QID (u nits unknown) (unknown) (unknown) (no date) (unknown) (unknown) S1 Ankle Plantarflexion 5/5 5/5 (units unknown) (unknown) (unknown) (no date) (unknown) (unknown) SVT (supravent ricular tachycardia) (units unknown) (unknown) (unknown) (no date) (unknown) (unknown) Saddle anesthe ban: denies (units unknown) (unknown) (unknown) (no date) (unknown) (unknown) Segment Action Right Left (units unknown) (unknown) (unknown) (no date) (unknown) (unknown) Segment Reflex Right Left (units unknown) (unknown) (unknown) (no date) (unknown) (unknown) Sensory -? Int act to light touch at bilateral lower extremities. Allodynia (units unknown) (unknown) (unknown) (no date) (unknown) (unknown) Signed By: (units unknown) (unknown) (unknown) (no date) (unknown) (unknown) Skin: No appre ciable rashes or skin breakdown (units unknown) (unknown) (unknown) (no date) (unknown) (unknown) Smoking Status : Former smoker (units unknown) (unknown) (unknown) (no date) (unknown) (unknown) Soft tissues:? Overlying bowel gas pattern is normal.? No suspicious soft tissue (units unknown) (unknown) (unknown) (no date) (unknown) (unknown) Surgery: Denies (uni ts unknown) (unknown) (unknown) (no date) (unknown) (unknown) Surgical Histo ry (units unknown) (unknown) (unknown) (no date) (unknown) (unknown) TECHNIQUE:? 6 views of the lumbar spine acquired, including flexion and (units unknown) (unknown) (unknown) (no date) (unknown) (unknown) [facility] (units unknown) (unknown) (unknown) (no date) (unknown) (unknown) This note may have been all or partially generated using voice recognition (units unknown) (unknown) (unknown) (no date) (unknown) (unknown) Tobacco + Subs tance Use (units unknown) (unknown) (unknown) (no date) (unknown) (unknown) Tobacco Status (unit s unknown) (unknown) (unknown) (no date) (unknown) (unknown) Today I have r eviewed available medical information in the patient's medical (units unknown) (unknown) (unknown) (no date) (unknown) (unknown) Upper Motor Ne uron Signs: (units unknown) (unknown) (unknown) (no date) (unknown) (unknown) Urinary incontinence (units unknown) (unknown) (unknown) (no date) (unknown) (unknown) Visit Reasons: 6WK FOLLOW UP (units unknown) (unknown) (unknown) (no date) (unknown) (unknown) Voltaren gel - on knee and anterior leg (units unknown) (unknown) (unknown) (no date) (unknown) (unknown) [place] 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 (units unknown) (unknown) (unknown) (no date) (unknown) (unknown) We reviewed et iology, predisposing factor(s), natural course, imaging results as (units unknown) (unknown) (unknown) (no date) (unknown) (unknown) Weakness: b/l leg weakness (units unknown) (unknown) (unknown) (no date) (unknown) (unknown) able to partic ipate in ADLs, had improved sleep, improved mobility, etc. (units unknown) (unknown) (unknown) (no date) (unknown) (unknown) alignment. (units unknown) (unknown) (unknown) (no date) (unknown) (unknown) alignment.? No (unit s unknown) (unknown) (unknown) (no date) (unknown) (unknown) amitriptyline 10 mg tablet 10 mg PO BEDTIME 10/07/22 [History Confirmed (units unknown) (unknown) (unknown) (no date) (unknown) (unknown) amitriptyline 50 mg tablet 50 mg PO BEDTIME 08/27/22 [History Confirmed (units unknown) (unknown) (unknown) (no date) (unknown) (unknown) and oblique views. ( units unknown) (unknown) (unknown) (no date) (unknown) (unknown) and strengthen ing of the lower extremities her goal is to be able to transfer (units unknown) (unknown) (unknown) (no date) (unknown) (unknown) as it is quite expensive for her to travel given her immobility.? She may also (units unknown) (unknown) (unknown) (no date) (unknown) (unknown) atorvastatin 2 0 mg tablet 20 mg PO BEDTIME 08/27/22 [History Confirmed 08/27/22] (units unknown) (unknown) (unknown) (no date) (unknown) (unknown) be a candidate for mild procedure given ligamentum flavum hypertrophy of (units unknown) (unknown) (unknown) (no date) (unknown) (unknown) benefit.? Not interested in interventions today there focus on physical therapy (units unknown) (unknown) (unknown) (no date) (unknown) (unknown) benefits of va rious treatment options were discussed with the patient in great (units unknown) (unknown) (unknown) (no date) (unknown) (unknown) bowel/bladder dysfunction, and perineal numbness were discussed. The patient was (units unknown) (unknown) (unknown) (no date) (unknown) (unknown) buttock, anter ior thigh, anterior lower leg and dorsum of foot (units unknown) (unknown) (unknown) (no date) (unknown) (unknown) calcifications.? (un its unknown) (unknown) (unknown) (no date) (unknown) (unknown) cannot tolerat e physical therapy at the current time due to the intensity of the (units unknown) (unknown) (unknown) (no date) (unknown) (unknown) carvedilol 12. 5 mg tablet 12.5 mg PO ONCE 08/27/22 [History Confirmed 08/27/22] (units unknown) (unknown) (unknown) (no date) (unknown) (unknown) decrease of le g and back pain) (units unknown) (unknown) (unknown) (no date) (unknown) (unknown) detail. (units unknown) (unknown) (unknown) (no date) (unknown) (unknown) duloxetine 60 mg capsule,delayed release 60 mg PO DAILY 08/27/22 [History (units unknown) (unknown) (unknown) (no date) (unknown) (unknown) extension views (uni ts unknown) (unknown) (unknown) (no date) (unknown) (unknown) from [facility] with less assistance.? We will arrange for [facility] care (units unknown) (unknown) (unknown) (no date) (unknown) (unknown) furosemide 40 mg tablet 40 mg PO DAILY 08/27/22 [History Confirmed 08/27/22] (units unknown) (unknown) (unknown) (no date) (unknown) (unknown) further evalua tion of low back and right leg pain.? Pain is likely (units unknown) (unknown) (unknown) (no date) (unknown) (unknown) have occurred. If there are any questions, please contact the Medical Records (units unknown) (unknown) (unknown) (no date) (unknown) (unknown) hydrocodone 7. 5 mg-acetaminophen 325 mg tablet 1 tab PO 08/27/22 [History (units unknown) (unknown) (unknown) (no date) (unknown) (unknown) in PT. [] (units unknown) (unknown) (unknown) (no date) (unknown) (unknown) instructed to report to the Emergency department, if these symptoms occur. (units unknown) (unknown) (unknown) (no date) (unknown) (unknown) instructed to stop if any side effects. [] (units unknown) (unknown) (unknown) (no date) (unknown) (unknown) intravenous dr ug use, sustained glucocorticoid use, osteoporosis, or a focal (units unknown) (unknown) (unknown) (no date) (unknown) (unknown) losartan 100 m g tablet 100 mg PO DAILY 08/27/22 [History Confirmed 08/27/22] (units unknown) (unknown) (unknown) (no date) (unknown) (unknown) losartan 50 mg tablet 50 mg PO DAILY 08/27/22 [History Confirmed 08/27/22] (units unknown) (unknown) (unknown) (no date) (unknown) (unknown) may occur. Occ asional wrong-word or 'sound-alike' substitutions may have (units unknown) (unknown) (unknown) (no date) (unknown) (unknown) meds. [] (units unknown) (unknown) (unknown) (no date) (unknown) (unknown) methocarbamol 750 mg tablet 750 mg PO BEDTIME 08/27/22 [History Confirmed (units unknown) (unknown) (unknown) (no date) (unknown) (unknown) multifactorial including both axial and radicular components.? She is had (units unknown) (unknown) (unknown) (no date) (unknown) (unknown) multiple epidu ral steroid injections in the past at [facility] without (units unknown) (unknown) (unknown) (no date) (unknown) (unknown) multiple level s of the lumbar spine.? She is also interested in a referral to (units unknown) (unknown) (unknown) (no date) (unknown) (unknown) negative, Hype ralgesia - negative (units unknown) (unknown) (unknown) (no date) (unknown) (unknown) neurological d eficit with progressive or disabling symptoms. (units unknown) (unknown) (unknown) (no date) (unknown) (unknown) occurred due t o the inherent limitations of voice recognition software. Please (units unknown) (unknown) (unknown) (no date) (unknown) (unknown) of Spinal Cord Injur y) (units unknown) (unknown) (unknown) (no date) (unknown) (unknown) omeprazole 20 mg capsule,delayed release 20 mg PO DAILY 08/27/22 [History (units unknown) (unknown) (unknown) (no date) (unknown) (unknown) or immunosuppr essive therapy, previous or current cancer diagnosis, history of (units unknown) (unknown) (unknown) (no date) (unknown) (unknown) pain. [] (units unknown) (unknown) (unknown) (no date) (unknown) (unknown) pregabalin 50 mg capsule 50 mg PO DAILY 08/27/22 [History Confirmed 08/27/22] (units unknown) (unknown) (unknown) (no date) (unknown) (unknown) read the note carefully and recognize, using context, where these substitutions (units unknown) (unknown) (unknown) (no date) (unknown) (unknown) record, includ ing relevant provider notes, laboratory work, and imaging. (units unknown) (unknown) (unknown) (no date) (unknown) (unknown) scale and/or p ain interferes with ADLs. (units unknown) (unknown) (unknown) (no date) (unknown) (unknown) simvastatin 40 mg tablet 40 mg PO BEDTIME 08/27/22 [History Confirmed 08/27/22] (units unknown) (unknown) (unknown) (no date) (unknown) (unknown) software. Alth ough every effort is made to edit content, excelsior cutter errors (units unknown) (unknown) (unknown) (no date) (unknown) (unknown) therapeutic in jections and surgery. The risks, consequences, alternatives and (units unknown) (unknown) (unknown) (no date) (unknown) (unknown) therapy. ?A re ferral was provided for the patient. [] (units unknown) (unknown) (unknown) (no date) (unknown) (unknown) vertebral body compression fractures.? No suspicious bony lesions.? (units unknown) (unknown) (unknown) (no date) (unknown) (unknown) visit. (units unknown) (unknown) (unknown) (no date) (unknown) (unknown) well as treatm ent options including medications, physical therapy/exercise, (units unknown) (unknown) (unknown) (no date) (unknown) (unknown) with future tr eatment planning. [] (units unknown) (unknown) Result panel 5 (unknown) (no date) (unknown) (unknown) (no value) (units unknown) (unknown) (unknown) (no date) (unknown) (unknown) (0=absent, 1=s light response, 2=brisk/normal, 3=very brisk, 4=clonus) (units unknown) (unknown) (unknown) (no date) (unknown) (unknown) (segments are from the International Standards for Neurological Classification (units unknown) (unknown) (unknown) (no date) (unknown) (unknown) - Activity: Co ntinue activity as tolerated. [] (units unknown) (unknown) (unknown) (no date) (unknown) (unknown) - Chiropractor , acupuncture[] (units unknown) (unknown) (unknown) (no date) (unknown) (unknown) - Continues cl inician directed home exercise program including exercises learned (units unknown) (unknown) (unknown) (no date) (unknown) (unknown) - Education: C auda equina and associated symptoms, including motor weakness, (units unknown) (unknown) (unknown) (no date) (unknown) (unknown) - FADIR: Unabl e to assess (units unknown) (unknown) (unknown) (no date) (unknown) (unknown) - Follow-up: [] (uni ts unknown) (unknown) (unknown) (no date) (unknown) (unknown) - Hip ROM is: Unable to assess (units unknown) (unknown) (unknown) (no date) (unknown) (unknown) - I discussed risks, benefits and side effects. Additionally, patient was (units unknown) (unknown) (unknown) (no date) (unknown) (unknown) - Imaging: No new imaging indicated at this time. [] (units unknown) (unknown) (unknown) (no date) (unknown) (unknown) - Interventional/Surgica l procedures: None indicated at this time. [] (units unknown) (unknown) (unknown) (no date) (unknown) (unknown) - Lumbar facet loading: Unable to assess (units unknown) (unknown) (unknown) (no date) (unknown) (unknown) - Medications: No new prescription at this time. Patient will continue current (units unknown) (unknown) (unknown) (no date) (unknown) (unknown) - Medications: acetaminophen, NSAIDS, neuropathics, muscle relaxants [] (units unknown) (unknown) (unknown) (no date) (unknown) (unknown) - Physical The rapy: Completed 6 week course in the last 6 months OR Patient (units unknown) (unknown) (unknown) (no date) (unknown) (unknown) - Physical therapy/modalities/DME : Patient will likely benefit from physical (units unknown) (unknown) (unknown) (no date) (unknown) (unknown) - Prescription provided and uptitration instructions given if necessary. [] (units unknown) (unknown) (unknown) (no date) (unknown) (unknown) - Previous [] on [] provided []% relief of pain for []. During that time patient (units unknown) (unknown) (unknown) (no date) (unknown) (unknown) - Referrals: N one indicated at this time. [] (units unknown) (unknown) (unknown) (no date) (unknown) (unknown) - SIJ provocat ion testing: Unable to assess (units unknown) (unknown) (unknown) (no date) (unknown) (unknown) - Seated strai ght Leg Raise: Negative bilaterally (units unknown) (unknown) (unknown) (no date) (unknown) (unknown) 08/27/22] (units unknown) (unknown) (unknown) (no date) (unknown) (unknown) 10/07/22 (units unknown) (unknown) (unknown) (no date) (unknown) (unknown) 10/07/22] (units unknown) (unknown) (unknown) (no date) (unknown) (unknown) 1. Lower lumba r facet arthropathy. (units unknown) (unknown) (unknown) (no date) (unknown) (unknown) 2. No abnormal motion on flexion and extension. (units unknown) (unknown) (unknown) (no date) (unknown) (unknown) 3. No pars defects.? (units unknown) (unknown) (unknown) (no date) (unknown) (unknown) 4 years (units unknown) (unknown) (unknown) (no date) (unknown) (unknown) [id number] (units unknown) (unknown) (unknown) (no date) (unknown) (unknown) 6 WEEK FOLLOW UP (un its unknown) (unknown) (unknown) (no date) (unknown) (unknown) ? Inspection - ? No gross appendicular or axial deformities (units unknown) (unknown) (unknown) (no date) (unknown) (unknown) ? Palpation -tenderness to palpation of the right lumbar paraspinous musculature (units unknown) (unknown) (unknown) (no date) (unknown) (unknown) ? ROM -unable to assess (units unknown) (unknown) (unknown) (no date) (unknown) (unknown) ? Special tests (uni ts unknown) (unknown) (unknown) (no date) (unknown) (unknown) ? (units unknown) (unknown) (unknown) (no date) (unknown) (unknown) ? Acetaminophen - current (units unknown) (unknown) (unknown) (no date) (unknown) (unknown) ? Antidepressants - current (units unknown) (unknown) (unknown) (no date) (unknown) (unknown) ? Antiepileptics - current (units unknown) (unknown) (unknown) (no date) (unknown) (unknown) ? Mu scle Relaxants - current (units unknown) (unknown) (unknown) (no date) (unknown) (unknown) ? NS AIDs - h/o heart disease (units unknown) (unknown) (unknown) (no date) (unknown) (unknown) ? Op ioids - current (units unknown) (unknown) (unknown) (no date) (unknown) (unknown) ? Steroids (units unknown) (unknown) (unknown) (no date) (unknown) (unknown) ? To picals - current (units unknown) (unknown) (unknown) (no date) (unknown) (unknown) Activities aff ected: walking, standing (units unknown) (unknown) (unknown) (no date) (unknown) (unknown) Age/Sex: 81 / F Date of Service: (units unknown) (unknown) (unknown) (no date) (unknown) (unknown) Aggravating fa ctors include: movement (units unknown) (unknown) (unknown) (no date) (unknown) (unknown) All other syst ems reviewed and are unremarkable except as noted in HPI. (units unknown) (unknown) (unknown) (no date) (unknown) (unknown) Allergies (units unknown) (unknown) (unknown) (no date) (unknown) (unknown) Amitriptyline 50mg 1-3 tablets QHS PRN pain/insomina (units unknown) (unknown) (unknown) (no date) (unknown) (unknown) Flor SYBIL [id number] (units unknown) (unknown) (unknown) (no date) (unknown) (unknown) Aortic regurgitation (units unknown) (unknown) (unknown) (no date) (unknown) (unknown) Approved by: Oscar Grissom M.D. on 08/27/2022 at 16:35 ? (units unknown) (unknown) (unknown) (no date) (unknown) (unknown) Assessment + Plan (u nits unknown) (unknown) (unknown) (no date) (unknown) (unknown) Assessment: (units unknown) (unknown) (unknown) (no date) (unknown) (unknown) Attending Dr: Jay Camarillo MD (units unknown) (unknown) (unknown) (no date) (unknown) (unknown) B/L L3-4 TFESI (CaElio Boyd) 05/09/20 ? (units unknown) (unknown) (unknown) (no date) (unknown) (unknown) [employer]'s Teez.mobi ngoing Downgoing (units unknown) (unknown) (unknown) (no date) (unknown) (unknown) Back pain, lumbosacr al (units unknown) (unknown) (unknown) (no date) (unknown) (unknown) Bones:? 5 nonrib-bearing vertebrae are present.? There is normal bony (units unknown) (unknown) (unknown) (no date) (unknown) (unknown) Bowel and blad tyler: Has had urinary as well as bowel incontinence for the past 3 (units unknown) (unknown) (unknown) (no date) (unknown) (unknown) Breast cancer (units unknown) (unknown) (unknown) (no date) (unknown) (unknown) CHF (congestiv e heart failure) (units unknown) (unknown) (unknown) (no date) (unknown) (unknown) COMPARISON:? I [facility], MR, MR LUMBAR SPINE WO CON, 04/16/2021, 14:10. (units unknown) (unknown) (unknown) (no date) (unknown) (unknown) COPD (chronic obstructive pulmonary disease) (units unknown) (unknown) (unknown) (no date) (unknown) (unknown) Carotid artery disea se (units unknown) (unknown) (unknown) (no date) (unknown) (unknown) Carpal tunnel syndro me (units unknown) (unknown) (unknown) (no date) (unknown) (unknown) Chart review: (units unknown) (unknown) (unknown) (no date) (unknown) (unknown) Chief Complaint (uni ts unknown) (unknown) (unknown) (no date) (unknown) (unknown) Chief Complain t: Low back and leg pain (units unknown) (unknown) (unknown) (no date) (unknown) (unknown) Chronic arthritis (u nits unknown) (unknown) (unknown) (no date) (unknown) (unknown) Confirmed 08/27/22] (units unknown) (unknown) (unknown) (no date) (unknown) (unknown) Conservative management includes: (units unknown) (unknown) (unknown) (no date) (unknown) (unknown) Continue [facility] physical therapy. [] (units unknown) (unknown) (unknown) (no date) (unknown) (unknown) Continue home exercise program. [] (units unknown) (unknown) (unknown) (no date) (unknown) (unknown) Current VAS: []/10 ( units unknown) (unknown) (unknown) (no date) (unknown) (unknown) Current pain treatments include: (units unknown) (unknown) (unknown) (no date) (unknown) (unknown) Cymbalta 60mg QD (un its unknown) (unknown) (unknown) (no date) (unknown) (unknown) : 2 Acct:[id number] (units unknown) (unknown) (unknown) (no date) (unknown) (unknown) Denies recent trauma, fever or weight loss of unknown origin, immunocompromise (units unknown) (unknown) (unknown) (no date) (unknown) (unknown) Dept at [phone]. (units unknown) (unknown) (unknown) (no date) (unknown) (unknown) Details: (units unknown) (unknown) (unknown) (no date) (unknown) (unknown) Dictated by: Oscar Grissom M.D. on 08/27/2022 at 16:33 ? ? (units unknown) (unknown) (unknown) (no date) (unknown) (unknown) Documented By: Jay Camarillo MD 10/06/22 1200 (units unknown) (unknown) (unknown) (no date) (unknown) (unknown) Draft (units unknown) (unknown) (unknown) (no date) (unknown) (unknown) Dysphagia (units unknown) (unknown) (unknown) (no date) (unknown) (unknown) Elevated liver enzym es (units unknown) (unknown) (unknown) (no date) (unknown) (unknown) Exam Narrative (unit s unknown) (unknown) (unknown) (no date) (unknown) (unknown) Exam Narrative: (uni ts unknown) (unknown) (unknown) (no date) (unknown) (unknown) Exam (units unknown) (unknown) (unknown) (no date) (unknown) (unknown) FINDINGS:? (units unknown) (unknown) (unknown) (no date) (unknown) (unknown) Fibromyalgia (units unknown) (unknown) (unknown) (no date) (unknown) (unknown) Flexion/extens ion:? There is diminished range of motion, with preserved normal (units unknown) (unknown) (unknown) (no date) (unknown) (unknown) GERD (gastroes ophageal reflux disease) (units unknown) (unknown) (unknown) (no date) (unknown) (unknown) Gait/Station -nonambulatory (units unknown) (unknown) (unknown) (no date) (unknown) (unknown) General: Well-nourished, well-developed, female in no acute distress (units unknown) (unknown) (unknown) (no date) (unknown) (unknown) HPI (units unknown) (unknown) (unknown) (no date) (unknown) (unknown) History of appendectomy (units unknown) (unknown) (unknown) (no date) (unknown) (unknown) History of j luis ast surgery (units unknown) (unknown) (unknown) (no date) (unknown) (unknown) History of cat aract extraction (units unknown) (unknown) (unknown) (no date) (unknown) (unknown) History of tonsillectomy (units unknown) (unknown) (unknown) (no date) (unknown) (unknown) Hyperglycemia (units unknown) (unknown) (unknown) (no date) (unknown) (unknown) Hypertension (units unknown) (unknown) (unknown) (no date) (unknown) (unknown) IMPRESSION:? (units unknown) (unknown) (unknown) (no date) (unknown) (unknown) INDICATIONS:? LOW BACK PAIN (units unknown) (unknown) (unknown) (no date) (unknown) (unknown) Insomnia (units unknown) (unknown) (unknown) (no date) (unknown) (unknown) Intake Clinical Staf f (units unknown) (unknown) (unknown) (no date) (unknown) (unknown) Intake Note: (units unknown) (unknown) (unknown) (no date) (unknown) (unknown) Intake perform ed by: Majo Damon (units unknown) (unknown) (unknown) (no date) (unknown) (unknown) Intake (units unknown) (unknown) (unknown) (no date) (unknown) (unknown) Interval History: (u nits unknown) (unknown) (unknown) (no date) (unknown) (unknown) Intervention:?Date:?Outcome:?? ? (units unknown) (unknown) (unknown) (no date) (unknown) (unknown) JUSTIFICATION OF MEDICAL NECESSITY (units unknown) (unknown) (unknown) (no date) (unknown) (unknown) L-spine/T-spin e/C-spin e MRI ordered to better delineate the anatomy and help (units unknown) (unknown) (unknown) (no date) (unknown) (unknown) L2 Hip Flexion 5/5 5/5? (units unknown) (unknown) (unknown) (no date) (unknown) (unknown) L2-3 MARCIAL ([facility]) 11/28/20 ? (units unknown) (unknown) (unknown) (no date) (unknown) (unknown) L2-3 MARCIAL ([place]) 01/31/21 ? (units unknown) (unknown) (unknown) (no date) (unknown) (unknown) L3 Knee Extens ion 5/5 5/5 (units unknown) (unknown) (unknown) (no date) (unknown) (unknown) L3-4 MARCIAL ([place]) 08/13/20 ? (units unknown) (unknown) (unknown) (no date) (unknown) (unknown) L3-4 [place] 2+ 2 (u nits unknown) (unknown) (unknown) (no date) (unknown) (unknown) L4 Ankle Dorsi flexion 12/05 12/05 (units unknown) (unknown) (unknown) (no date) (unknown) (unknown) L4-5 MARCIAL ([facility] 01/07/22 most helpful so far (slight (units unknown) (unknown) (unknown) (no date) (unknown) (unknown) L5 Long Toe Ex tension 12/05 12/05 (units unknown) (unknown) (unknown) (no date) (unknown) (unknown) Leg pain, right (uni ts unknown) (unknown) (unknown) (no date) (unknown) (unknown) Loc: PAIN (units unknown) (unknown) (unknown) (no date) (unknown) (unknown) Low back pain (units unknown) (unknown) (unknown) (no date) (unknown) (unknown) Lumbar radiculopathy (units unknown) (unknown) (unknown) (no date) (unknown) (unknown) Lymphedema (units unknown) (unknown) (unknown) (no date) (unknown) (unknown) Lyrica 50mg TID (uni ts unknown) (unknown) (unknown) (no date) (unknown) (unknown) MSK: System re viewed and no additional complaints, except as documented. (units unknown) (unknown) (unknown) (no date) (unknown) (unknown) Medical Histor y (Updated 08/27/22 @ 14:12 by Jay Camarillo MD) (units unknown) (unknown) (unknown) (no date) (unknown) (unknown) Medications (units unknown) (unknown) (unknown) (no date) (unknown) (unknown) Medications: (units unknown) (unknown) (unknown) (no date) (unknown) (unknown) Morbid obesity (unit s unknown) (unknown) (unknown) (no date) (unknown) (unknown) Motor (units unknown) (unknown) (unknown) (no date) (unknown) (unknown) Musculoskeletal: (un its unknown) (unknown) (unknown) (no date) (unknown) (unknown) Neuro: System reviewed and no additional complaints, except as documented. (units unknown) (unknown) (unknown) (no date) (unknown) (unknown) Neurologic: (units unknown) (unknown) (unknown) (no date) (unknown) (unknown) No Known Drug Allergies Allergy (Verified 10/07/22 10:23) (units unknown) (unknown) (unknown) (no date) (unknown) (unknown) [place] 7.5-325mg Q6hr (units unknown) (unknown) (unknown) (no date) (unknown) (unknown) Not indicated at this time. [] (units unknown) (unknown) (unknown) (no date) (unknown) (unknown) Numbness/Tingl ing: all 4 extremity tingling due to neuropathy (units unknown) (unknown) (unknown) (no date) (unknown) (unknown) Objective Data (unit s unknown) (unknown) (unknown) (no date) (unknown) (unknown) Objective Data: (uni ts unknown) (unknown) (unknown) (no date) (unknown) (unknown) Oblique films: ? No pars defects. (units unknown) (unknown) (unknown) (no date) (unknown) (unknown) Onset/Context of param n: (units unknown) (unknown) (unknown) (no date) (unknown) (unknown) Onset: Insidious (un its unknown) (unknown) (unknown) (no date) (unknown) (unknown) Other: Denies (units unknown) (unknown) (unknown) (no date) (unknown) (unknown) PFSH (units unknown) (unknown) (unknown) (no date) (unknown) (unknown) PROCEDURE:? XR LUMBAR SPINE MIN 4V (units unknown) (unknown) (unknown) (no date) (unknown) (unknown) PT: Had 4 sess ions of home health with Starla (units unknown) (unknown) (unknown) (no date) (unknown) (unknown) Pain Visit (units unknown) (unknown) (unknown) (no date) (unknown) (unknown) Pain location/Radiation: Middle low back, radiating to the right low back, right (units unknown) (unknown) (unknown) (no date) (unknown) (unknown) Pain ratin /10 today, 10/10 at worst (units unknown) (unknown) (unknown) (no date) (unknown) (unknown) Past medical, surgical, social, and family history is unchanged from prior (units unknown) (unknown) (unknown) (no date) (unknown) (unknown) Patient was conor miller seen here on 08/27/2022. Starla denied to see patient given her (units unknown) (unknown) (unknown) (no date) (unknown) (unknown) Patient will r eturn for []. Risks and benefits were discussed. (units unknown) (unknown) (unknown) (no date) (unknown) (unknown) Patient's pain has been present for >6 weeks and is an average of >6/10 on 0-10 (units unknown) (unknown) (unknown) (no date) (unknown) (unknown) Patient: Dulce Butt MR#: [id number] (units unknown) (unknown) (unknown) (no date) (unknown) (unknown) Peripheral neuropath y (units unknown) (unknown) (unknown) (no date) (unknown) (unknown) Plan (units unknown) (unknown) (unknown) (no date) (unknown) (unknown) Plan/Recommendations : (units unknown) (unknown) (unknown) (no date) (unknown) (unknown) Prescriptions Written: [] (units unknown) (unknown) (unknown) (no date) (unknown) (unknown) Previous Visit Assessment: 'Dulce is an 81-year-old female presenting for (units unknown) (unknown) (unknown) (no date) (unknown) (unknown) Previous pain treatments included: (units unknown) (unknown) (unknown) (no date) (unknown) (unknown) Psych: Appropr iate affect, answers questions appropriately (units unknown) (unknown) (unknown) (no date) (unknown) (unknown) Quality and ti pj of pain: Sharp in back, sharp in leg; constant (units unknown) (unknown) (unknown) (no date) (unknown) (unknown) ROS Narrative (units unknown) (unknown) (unknown) (no date) (unknown) (unknown) ROS Narrative: (unit s unknown) (unknown) (unknown) (no date) (unknown) (unknown) ROS (units unknown) (unknown) (unknown) (no date) (unknown) (unknown) Reason For Visit (un its unknown) (unknown) (unknown) (no date) (unknown) (unknown) Red flag symptoms: ( units unknown) (unknown) (unknown) (no date) (unknown) (unknown) Reflex Right Left (u nits unknown) (unknown) (unknown) (no date) (unknown) (unknown) Reflexes: (units unknown) (unknown) (unknown) (no date) (unknown) (unknown) Relieving fact ors include: recliner, medications (units unknown) (unknown) (unknown) (no date) (unknown) (unknown) Respiratory: Non-labored breathing pattern on RA. No respiratory distress (units unknown) (unknown) (unknown) (no date) (unknown) (unknown) Rheumatology marilou lopez her history of arthritis of multiple joints.' (units unknown) (unknown) (unknown) (no date) (unknown) (unknown) Robaxin 750mg QID (u nits unknown) (unknown) (unknown) (no date) (unknown) (unknown) S1 Ankle Plantarflexion 5/5 5/5 (units unknown) (unknown) (unknown) (no date) (unknown) (unknown) SVT (supravent ricular tachycardia) (units unknown) (unknown) (unknown) (no date) (unknown) (unknown) [facility]addle anesthe ban: denies (units unknown) (unknown) (unknown) (no date) (unknown) (unknown) Segment Action Right Left (units unknown) (unknown) (unknown) (no date) (unknown) (unknown) Segment Reflex Right Left (units unknown) (unknown) (unknown) (no date) (unknown) (unknown) Sensory -? Int act to light touch at bilateral lower extremities. Allodynia (units unknown) (unknown) (unknown) (no date) (unknown) (unknown) Signed By: (units unknown) (unknown) (unknown) (no date) (unknown) (unknown) Skin: No appre ciable rashes or skin breakdown (units unknown) (unknown) (unknown) (no date) (unknown) (unknown) Smoking Status : Former smoker (units unknown) (unknown) (unknown) (no date) (unknown) (unknown) Soft tissues:? Overlying bowel gas pattern is normal.? No suspicious soft tissue (units unknown) (unknown) (unknown) (no date) (unknown) (unknown) Surgery: Denies (uni ts unknown) (unknown) (unknown) (no date) (unknown) (unknown) Surgical Histo ry (units unknown) (unknown) (unknown) (no date) (unknown) (unknown) TECHNIQUE:? 6 views of the lumbar spine acquired, including flexion and (units unknown) (unknown) (unknown) (no date) (unknown) (unknown) [facility] (units unknown) (unknown) (unknown) (no date) (unknown) (unknown) This note may have been all or partially generated using voice recognition (units unknown) (unknown) (unknown) (no date) (unknown) (unknown) Tobacco + Subs tance Use (units unknown) (unknown) (unknown) (no date) (unknown) (unknown) Tobacco Status (unit s unknown) (unknown) (unknown) (no date) (unknown) (unknown) Today I have r eviewed available medical information in the patient's medical (units unknown) (unknown) (unknown) (no date) (unknown) (unknown) Upper Motor Ne uron Signs: (units unknown) (unknown) (unknown) (no date) (unknown) (unknown) Urinary incontinence (units unknown) (unknown) (unknown) (no date) (unknown) (unknown) Visit Reasons: 6WK FOLLOW UP (units unknown) (unknown) (unknown) (no date) (unknown) (unknown) Voltaren gel - on knee and anterior leg (units unknown) (unknown) (unknown) (no date) (unknown) (unknown) [place] 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 (units unknown) (unknown) (unknown) (no date) (unknown) (unknown) We reviewed et iology, predisposing factor(s), natural course, imaging results as (units unknown) (unknown) (unknown) (no date) (unknown) (unknown) Weakness: b/l leg weakness (units unknown) (unknown) (unknown) (no date) (unknown) (unknown) able to partic ipate in ADLs, had improved sleep, improved mobility, etc. (units unknown) (unknown) (unknown) (no date) (unknown) (unknown) alignment. (units unknown) (unknown) (unknown) (no date) (unknown) (unknown) alignment.? No (unit s unknown) (unknown) (unknown) (no date) (unknown) (unknown) amitriptyline 10 mg tablet 10 mg PO BEDTIME 10/07/22 [History Confirmed (units unknown) (unknown) (unknown) (no date) (unknown) (unknown) amitriptyline 50 mg tablet 50 mg PO BEDTIME 08/27/22 [History Confirmed (units unknown) (unknown) (unknown) (no date) (unknown) (unknown) and oblique views. ( units unknown) (unknown) (unknown) (no date) (unknown) (unknown) and strengthen ing of the lower extremities her goal is to be able to transfer (units unknown) (unknown) (unknown) (no date) (unknown) (unknown) as it is quite expensive for her to travel given her immobility.? She may also (units unknown) (unknown) (unknown) (no date) (unknown) (unknown) atorvastatin 2 0 mg tablet 20 mg PO BEDTIME 08/27/22 [History Confirmed 08/27/22] (units unknown) (unknown) (unknown) (no date) (unknown) (unknown) be a candidate for mild procedure given ligamentum flavum hypertrophy of (units unknown) (unknown) (unknown) (no date) (unknown) (unknown) benefit.? Not interested in interventions today there focus on physical therapy (units unknown) (unknown) (unknown) (no date) (unknown) (unknown) benefits of [place] treatment options were discussed with the patient in great (units unknown) (unknown) (unknown) (no date) (unknown) (unknown) bowel/bladder dysfunction, and perineal numbness were discussed. The patient was (units unknown) (unknown) (unknown) (no date) (unknown) (unknown) buttock, anter ior thigh, anterior lower leg and dorsum of foot (units unknown) (unknown) (unknown) (no date) (unknown) (unknown) calcifications.? (un its unknown) (unknown) (unknown) (no date) (unknown) (unknown) cannot tolerat e physical therapy at the current time due to the intensity of the (units unknown) (unknown) (unknown) (no date) (unknown) (unknown) carvedilol 12. 5 mg tablet 12.5 mg PO ONCE 08/27/22 [History Confirmed 08/27/22] (units unknown) (unknown) (unknown) (no date) (unknown) (unknown) decrease of le g and back pain) (units unknown) (unknown) (unknown) (no date) (unknown) (unknown) detail. (units unknown) (unknown) (unknown) (no date) (unknown) (unknown) duloxetine 60 mg capsule,delayed release 60 mg PO DAILY 08/27/22 [History (units unknown) (unknown) (unknown) (no date) (unknown) (unknown) extension views (uni ts unknown) (unknown) (unknown) (no date) (unknown) (unknown) from [facility] with less assistance.? We will arrange for [facility] care (units unknown) (unknown) (unknown) (no date) (unknown) (unknown) furosemide 40 mg tablet 40 mg PO DAILY 08/27/22 [History Confirmed 08/27/22] (units unknown) (unknown) (unknown) (no date) (unknown) (unknown) further evalua tion of low back and right leg pain.? Pain is likely (units unknown) (unknown) (unknown) (no date) (unknown) (unknown) have occurred. If there are any questions, please contact the Medical Records (units unknown) (unknown) (unknown) (no date) (unknown) (unknown) hydrocodone 7. 5 mg-acetaminophen 325 mg tablet 1 tab PO 08/27/22 [History (units unknown) (unknown) (unknown) (no date) (unknown) (unknown) in PT. [] (units unknown) (unknown) (unknown) (no date) (unknown) (unknown) instructed to report to the Emergency department, if these symptoms occur. (units unknown) (unknown) (unknown) (no date) (unknown) (unknown) instructed to stop if any side effects. [] (units unknown) (unknown) (unknown) (no date) (unknown) (unknown) intravenous dr ug use, sustained glucocorticoid use, osteoporosis, or a focal (units unknown) (unknown) (unknown) (no date) (unknown) (unknown) lack of compli ance and participation with care. (units unknown) (unknown) (unknown) (no date) (unknown) (unknown) losartan 100 m g tablet 100 mg PO DAILY 08/27/22 [History Confirmed 08/27/22] (units unknown) (unknown) (unknown) (no date) (unknown) (unknown) losartan 50 mg tablet 50 mg PO DAILY 08/27/22 [History Confirmed 08/27/22] (units unknown) (unknown) (unknown) (no date) (unknown) (unknown) may occur. Occ asional wrong-word or 'sound-alike' substitutions may have (units unknown) (unknown) (unknown) (no date) (unknown) (unknown) meds. [] (units unknown) (unknown) (unknown) (no date) (unknown) (unknown) methocarbamol 750 mg tablet 750 mg PO BEDTIME 08/27/22 [History Confirmed (units unknown) (unknown) (unknown) (no date) (unknown) (unknown) multifactorial including both axial and radicular components.? She is had (units unknown) (unknown) (unknown) (no date) (unknown) (unknown) multiple epidu ral steroid injections in the past at [facility] without (units unknown) (unknown) (unknown) (no date) (unknown) (unknown) multiple level s of the lumbar spine.? She is also interested in a referral to (units unknown) (unknown) (unknown) (no date) (unknown) (unknown) negative, Hype ralgesia - negative (units unknown) (unknown) (unknown) (no date) (unknown) (unknown) neurological d eficit with progressive or disabling symptoms. (units unknown) (unknown) (unknown) (no date) (unknown) (unknown) occurred due t o the inherent limitations of voice recognition software. Please (units unknown) (unknown) (unknown) (no date) (unknown) (unknown) of Spinal Cord Injur y) (units unknown) (unknown) (unknown) (no date) (unknown) (unknown) omeprazole 20 mg capsule,delayed release 20 mg PO DAILY 08/27/22 [History (units unknown) (unknown) (unknown) (no date) (unknown) (unknown) or immunosuppr essive therapy, previous or current cancer diagnosis, history of (units unknown) (unknown) (unknown) (no date) (unknown) (unknown) pain. [] (units unknown) (unknown) (unknown) (no date) (unknown) (unknown) pregabalin 50 mg capsule 50 mg PO DAILY 08/27/22 [History Confirmed 08/27/22] (units unknown) (unknown) (unknown) (no date) (unknown) (unknown) read the note carefully and recognize, using context, where these substitutions (units unknown) (unknown) (unknown) (no date) (unknown) (unknown) record, includ ing relevant provider notes, laboratory work, and imaging. (units unknown) (unknown) (unknown) (no date) (unknown) (unknown) scale and/or p ain interferes with ADLs. (units unknown) (unknown) (unknown) (no date) (unknown) (unknown) simvastatin 40 mg tablet 40 mg PO BEDTIME 08/27/22 [History Confirmed 08/27/22] (units unknown) (unknown) (unknown) (no date) (unknown) (unknown) software. Alth ough every effort is made to edit content, excelsior cutter errors (units unknown) (unknown) (unknown) (no date) (unknown) (unknown) therapeutic in jections and surgery. The risks, consequences, alternatives and (units unknown) (unknown) (unknown) (no date) (unknown) (unknown) therapy. ?A re ferral was provided for the patient. [] (units unknown) (unknown) (unknown) (no date) (unknown) (unknown) vertebral body compression fractures.? No suspicious bony lesions.? (units unknown) (unknown) (unknown) (no date) (unknown) (unknown) visit. (units unknown) (unknown) (unknown) (no date) (unknown) (unknown) well as treatm ent options including medications, physical therapy/exercise, (units unknown) (unknown) (unknown) (no date) (unknown) (unknown) with future tr eatment planning. [] (units unknown) (unknown) Result panel 6 (unknown) (no date) (unknown) (unknown) (no value) (units unknown) (unknown) (unknown) (no date) (unknown) (unknown) (0=absent, 1=s light response, 2=brisk/normal, 3=very brisk, 4=clonus) (units unknown) (unknown) (unknown) (no date) (unknown) (unknown) (segments are from the International Standards for Neurological Classification (units unknown) (unknown) (unknown) (no date) (unknown) (unknown) - Activity: Co ntinue activity as tolerated. [] (units unknown) (unknown) (unknown) (no date) (unknown) (unknown) - Chiropractor , acupuncture[] (units unknown) (unknown) (unknown) (no date) (unknown) (unknown) - Continues cl inician directed home exercise program including exercises learned (units unknown) (unknown) (unknown) (no date) (unknown) (unknown) - Education: C auda equina and associated symptoms, including motor weakness, (units unknown) (unknown) (unknown) (no date) (unknown) (unknown) - FADIR: Unabl e to assess (units unknown) (unknown) (unknown) (no date) (unknown) (unknown) - Follow-up: [] (uni ts unknown) (unknown) (unknown) (no date) (unknown) (unknown) - Hip ROM is: Unable to assess (units unknown) (unknown) (unknown) (no date) (unknown) (unknown) - I discussed risks, benefits and side effects. Additionally, patient was (units unknown) (unknown) (unknown) (no date) (unknown) (unknown) - Imaging: No new imaging indicated at this time. [] (units unknown) (unknown) (unknown) (no date) (unknown) (unknown) - Interventional/Surgica l procedures: None indicated at this time. [] (units unknown) (unknown) (unknown) (no date) (unknown) (unknown) - Lumbar facet loading: Unable to assess (units unknown) (unknown) (unknown) (no date) (unknown) (unknown) - Medications: No new prescription at this time. Patient will continue current (units unknown) (unknown) (unknown) (no date) (unknown) (unknown) - Medications: acetaminophen, NSAIDS, neuropathics, muscle relaxants [] (units unknown) (unknown) (unknown) (no date) (unknown) (unknown) - Physical The rapy: Completed 6 week course in the last 6 months OR Patient (units unknown) (unknown) (unknown) (no date) (unknown) (unknown) - Physical therapy/modalities/DME : Patient will likely benefit from physical (units unknown) (unknown) (unknown) (no date) (unknown) (unknown) - Prescription provided and uptitration instructions given if necessary. [] (units unknown) (unknown) (unknown) (no date) (unknown) (unknown) - Previous [] on [] provided []% relief of pain for []. During that time patient (units unknown) (unknown) (unknown) (no date) (unknown) (unknown) - Referrals: N one indicated at this time. [] (units unknown) (unknown) (unknown) (no date) (unknown) (unknown) - SIJ provocat ion testing: Unable to assess (units unknown) (unknown) (unknown) (no date) (unknown) (unknown) - Seated strai ght Leg Raise: Negative bilaterally (units unknown) (unknown) (unknown) (no date) (unknown) (unknown) 08/27/22] (units unknown) (unknown) (unknown) (no date) (unknown) (unknown) 10/07/22 (units unknown) (unknown) (unknown) (no date) (unknown) (unknown) 10/07/22] (units unknown) (unknown) (unknown) (no date) (unknown) (unknown) 1. Lower lumba r facet arthropathy. (units unknown) (unknown) (unknown) (no date) (unknown) (unknown) 14:04 (units unknown) (unknown) (unknown) (no date) (unknown) (unknown) 2. No abnormal motion on flexion and extension. (units unknown) (unknown) (unknown) (no date) (unknown) (unknown) 3. No pars defects.? (units unknown) (unknown) (unknown) (no date) (unknown) (unknown) 4 years (units unknown) (unknown) (unknown) (no date) (unknown) (unknown) 5834 (units unknown) (unknown) (unknown) (no date) (unknown) (unknown) 6 WEEK FOLLOW UP (un its unknown) (unknown) (unknown) (no date) (unknown) (unknown) ? Inspection - ? No gross appendicular or axial deformities (units unknown) (unknown) (unknown) (no date) (unknown) (unknown) ? Palpation -tenderness to palpation of the right lumbar paraspinous musculature (units unknown) (unknown) (unknown) (no date) (unknown) (unknown) ? ROM -unable to assess (units unknown) (unknown) (unknown) (no date) (unknown) (unknown) ? Special tests (uni ts unknown) (unknown) (unknown) (no date) (unknown) (unknown) ? (units unknown) (unknown) (unknown) (no date) (unknown) (unknown) ? Acetaminophen - current (units unknown) (unknown) (unknown) (no date) (unknown) (unknown) ? Antidepressants - current (units unknown) (unknown) (unknown) (no date) (unknown) (unknown) ? Antiepileptics - current (units unknown) (unknown) (unknown) (no date) (unknown) (unknown) ? Mu scle Relaxants - current (units unknown) (unknown) (unknown) (no date) (unknown) (unknown) ? NS AIDs - h/o heart disease (units unknown) (unknown) (unknown) (no date) (unknown) (unknown) ? Op ioids - current (units unknown) (unknown) (unknown) (no date) (unknown) (unknown) ? Steroids (units unknown) (unknown) (unknown) (no date) (unknown) (unknown) ? To picals - current (units unknown) (unknown) (unknown) (no date) (unknown) (unknown) Accompanied by : Photogeologist (units unknown) (unknown) (unknown) (no date) (unknown) (unknown) Activities aff ected: walking, standing (units unknown) (unknown) (unknown) (no date) (unknown) (unknown) Age/Sex: 81 / F Date of Service: (units unknown) (unknown) (unknown) (no date) (unknown) (unknown) Aggravating fa ctors include: movement (units unknown) (unknown) (unknown) (no date) (unknown) (unknown) All other syst ems reviewed and are unremarkable except as noted in HPI. (units unknown) (unknown) (unknown) (no date) (unknown) (unknown) Allergies (units unknown) (unknown) (unknown) (no date) (unknown) (unknown) Amitriptyline 50mg 1-3 tablets QHS PRN pain/insomina (units unknown) (unknown) (unknown) (no date) (unknown) (unknown) SYBIL [place] [id number] (units unknown) (unknown) (unknown) (no date) (unknown) (unknown) Aortic regurgitation (units unknown) (unknown) (unknown) (no date) (unknown) (unknown) Approved by: Oscar Grissom M.D. on 08/27/2022 at 16:35 ? (units unknown) (unknown) (unknown) (no date) (unknown) (unknown) Assessment + Plan (u nits unknown) (unknown) (unknown) (no date) (unknown) (unknown) Assessment: (units unknown) (unknown) (unknown) (no date) (unknown) (unknown) Attending Dr: Jay Camarillo MD (units unknown) (unknown) (unknown) (no date) (unknown) (unknown) B/L L3-4 TFESI ([facility]) 05/09/20 ? (units unknown) (unknown) (unknown) (no date) (unknown) (unknown) BMI 46.5 (units unknown) (unknown) (unknown) (no date) (unknown) (unknown) BP 130/80 (units unknown) (unknown) (unknown) (no date) (unknown) (unknown) [facility] ngoing Downgoing (units unknown) (unknown) (unknown) (no date) (unknown) (unknown) Back pain, lumbosacr al (units unknown) (unknown) (unknown) (no date) (unknown) (unknown) Blood Pressure Location Lt brachial (units unknown) (unknown) (unknown) (no date) (unknown) (unknown) Bones:? 5 nonrib-bearing vertebrae are present.? There is normal bony (units unknown) (unknown) (unknown) (no date) (unknown) (unknown) Bowel and blad tyler: Has had urinary as well as bowel incontinence for the past 3 (units unknown) (unknown) (unknown) (no date) (unknown) (unknown) Breast cancer (units unknown) (unknown) (unknown) (no date) (unknown) (unknown) CHF (congestiv e heart failure) (units unknown) (unknown) (unknown) (no date) (unknown) (unknown) COMPARISON:? I [facility], MR, MR LUMBAR SPINE WO CON, 04/16/2021, 14:10. (units unknown) (unknown) (unknown) (no date) (unknown) (unknown) COPD (chronic obstructive pulmonary disease) (units unknown) (unknown) (unknown) (no date) (unknown) (unknown) Carotid artery disea se (units unknown) (unknown) (unknown) (no date) (unknown) (unknown) Carpal tunnel syndro me (units unknown) (unknown) (unknown) (no date) (unknown) (unknown) Chart review: (units unknown) (unknown) (unknown) (no date) (unknown) (unknown) Chief Complaint (uni ts unknown) (unknown) (unknown) (no date) (unknown) (unknown) Chief Complain t: Low back and leg pain (units unknown) (unknown) (unknown) (no date) (unknown) (unknown) Chronic arthritis (u nits unknown) (unknown) (unknown) (no date) (unknown) (unknown) Confirmed 08/27/22] (units unknown) (unknown) (unknown) (no date) (unknown) (unknown) Conservative management includes: (units unknown) (unknown) (unknown) (no date) (unknown) (unknown) [facility]. [] (units unknown) (unknown) (unknown) (no date) (unknown) (unknown) Continue home exercise program. [] (units unknown) (unknown) (unknown) (no date) (unknown) (unknown) Current VAS: []/10 ( units unknown) (unknown) (unknown) (no date) (unknown) (unknown) Current pain treatments include: (units unknown) (unknown) (unknown) (no date) (unknown) (unknown) Cymbalta 60mg QD (un its unknown) (unknown) (unknown) (no date) (unknown) (unknown) : 2 Acct:[id number] (units unknown) (unknown) (unknown) (no date) (unknown) (unknown) Denies recent trauma, fever or weight loss of unknown origin, immunocompromise (units unknown) (unknown) (unknown) (no date) (unknown) (unknown) Dept at . (units unknown) (unknown) (unknown) (no date) (unknown) (unknown) Details: (units unknown) (unknown) (unknown) (no date) (unknown) (unknown) Dictated by: Oscar Grissom M.D. on 08/27/2022 at 16:33 ? ? (units unknown) (unknown) (unknown) (no date) (unknown) (unknown) Documented By: Jay Camarillo MD 10/06/22 1200 (units unknown) (unknown) (unknown) (no date) (unknown) (unknown) Draft (units unknown) (unknown) (unknown) (no date) (unknown) (unknown) Dysphagia (units unknown) (unknown) (unknown) (no date) (unknown) (unknown) Elevated liver enzym es (units unknown) (unknown) (unknown) (no date) (unknown) (unknown) Exam Narrative (unit s unknown) (unknown) (unknown) (no date) (unknown) (unknown) Exam Narrative: (uni ts unknown) (unknown) (unknown) (no date) (unknown) (unknown) Exam (units unknown) (unknown) (unknown) (no date) (unknown) (unknown) FINDINGS:? (units unknown) (unknown) (unknown) (no date) (unknown) (unknown) Fibromyalgia (units unknown) (unknown) (unknown) (no date) (unknown) (unknown) Flexion/extens ion:? There is diminished range of motion, with preserved normal (units unknown) (unknown) (unknown) (no date) (unknown) (unknown) GERD (gastroes ophageal reflux disease) (units unknown) (unknown) (unknown) (no date) (unknown) (unknown) Gait/Station -nonambulatory (units unknown) (unknown) (unknown) (no date) (unknown) (unknown) General: Well-nourished, well-developed, female in no acute distress (units unknown) (unknown) (unknown) (no date) (unknown) (unknown) HPI (units unknown) (unknown) (unknown) (no date) (unknown) (unknown) Height 5 ft 7 in (un its unknown) (unknown) (unknown) (no date) (unknown) (unknown) History of appendectomy (units unknown) (unknown) (unknown) (no date) (unknown) (unknown) History of j luis ast surgery (units unknown) (unknown) (unknown) (no date) (unknown) (unknown) History of cat aract extraction (units unknown) (unknown) (unknown) (no date) (unknown) (unknown) History of tonsillectomy (units unknown) (unknown) (unknown) (no date) (unknown) (unknown) Hyperglycemia (units unknown) (unknown) (unknown) (no date) (unknown) (unknown) Hypertension (units unknown) (unknown) (unknown) (no date) (unknown) (unknown) IMPRESSION:? (units unknown) (unknown) (unknown) (no date) (unknown) (unknown) INDICATIONS:? LOW BACK PAIN (units unknown) (unknown) (unknown) (no date) (unknown) (unknown) Insomnia (units unknown) (unknown) (unknown) (no date) (unknown) (unknown) Intake Clinical Staf f (units unknown) (unknown) (unknown) (no date) (unknown) (unknown) Intake Note: (units unknown) (unknown) (unknown) (no date) (unknown) (unknown) Intake perform ed by: Majo Damon (units unknown) (unknown) (unknown) (no date) (unknown) (unknown) Intake (units unknown) (unknown) (unknown) (no date) (unknown) (unknown) Interval History: (u nits unknown) (unknown) (unknown) (no date) (unknown) (unknown) Intervention:?Date:?Outcome:?? ? (units unknown) (unknown) (unknown) (no date) (unknown) (unknown) Is patient in pain?: Yes Pain scale (1-10): 6 (units unknown) (unknown) (unknown) (no date) (unknown) (unknown) JUSTIFICATION OF MEDICAL NECESSITY (units unknown) (unknown) (unknown) (no date) (unknown) (unknown) L-spine/T-spin e/C-spin e MRI ordered to better delineate the anatomy and help (units unknown) (unknown) (unknown) (no date) (unknown) (unknown) L2 Hip Flexion 5/5 5/5? (units unknown) (unknown) (unknown) (no date) (unknown) (unknown) L2-3 [facility] ([facility]) 11/28/20 ? (units unknown) (unknown) (unknown) (no date) (unknown) (unknown) L2-3 [facility] ([facility]) 01/31/21 ? (units unknown) (unknown) (unknown) (no date) (unknown) (unknown) L3 Knee Extens ion 5/5 5/5 (units unknown) (unknown) (unknown) (no date) (unknown) (unknown) L3-4 [facility] ([facility]) 08/13/20 ? (units unknown) (unknown) (unknown) (no date) (unknown) (unknown) L3-4 Patella 2+ 2 (u nits unknown) (unknown) (unknown) (no date) (unknown) (unknown) L4 Ankle Dorsi flexion /12/05 (units unknown) (unknown) (unknown) (no date) (unknown) (unknown) L4-5 [facility]CIAL ([facility])? 01/07/22 most helpful so far (slight (units unknown) (unknown) (unknown) (no date) (unknown) (unknown) L5 Long Toe Ex tension /12/05 (units unknown) (unknown) (unknown) (no date) (unknown) (unknown) Leg pain, right (uni ts unknown) (unknown) (unknown) (no date) (unknown) (unknown) Loc: PAIN (units unknown) (unknown) (unknown) (no date) (unknown) (unknown) Low back pain (units unknown) (unknown) (unknown) (no date) (unknown) (unknown) Lumbar radiculopathy (units unknown) (unknown) (unknown) (no date) (unknown) (unknown) Lymphedema (units unknown) (unknown) (unknown) (no date) (unknown) (unknown) Lyrica 50mg TID (uni ts unknown) (unknown) (unknown) (no date) (unknown) (unknown) MSK: System re viewed and no additional complaints, except as documented. (units unknown) (unknown) (unknown) (no date) (unknown) (unknown) Medical Histor y (Updated 08/27/22 @ 14:12 by Jay Camarillo MD) (units unknown) (unknown) (unknown) (no date) (unknown) (unknown) Medications (units unknown) (unknown) (unknown) (no date) (unknown) (unknown) Medications: (units unknown) (unknown) (unknown) (no date) (unknown) (unknown) Morbid obesity (unit s unknown) (unknown) (unknown) (no date) (unknown) (unknown) Motor (units unknown) (unknown) (unknown) (no date) (unknown) (unknown) Musculoskeletal: (un its unknown) (unknown) (unknown) (no date) (unknown) (unknown) Neuro: System reviewed and no additional complaints, except as documented. (units unknown) (unknown) (unknown) (no date) (unknown) (unknown) Neurologic: (units unknown) (unknown) (unknown) (no date) (unknown) (unknown) No Known Drug Allergies Allergy (Verified 10/07/22 10:23) (units unknown) (unknown) (unknown) (no date) (unknown) (unknown) [place] 7.5-325mg Q6hr (units unknown) (unknown) (unknown) (no date) (unknown) (unknown) Not indicated at this time. [] (units unknown) (unknown) (unknown) (no date) (unknown) (unknown) Numbness/Tingl ing: all 4 extremity tingling due to neuropathy (units unknown) (unknown) (unknown) (no date) (unknown) (unknown) Objective Data (unit s unknown) (unknown) (unknown) (no date) (unknown) (unknown) Objective Data: (uni ts unknown) (unknown) (unknown) (no date) (unknown) (unknown) Oblique films: ? No pars defects. (units unknown) (unknown) (unknown) (no date) (unknown) (unknown) Onset/Context of param n: (units unknown) (unknown) (unknown) (no date) (unknown) (unknown) Onset: Insidious (un its unknown) (unknown) (unknown) (no date) (unknown) (unknown) Other: Denies (units unknown) (unknown) (unknown) (no date) (unknown) (unknown) Oxygen Deliver y Method nasal canula (units unknown) (unknown) (unknown) (no date) (unknown) (unknown) PFSH (units unknown) (unknown) (unknown) (no date) (unknown) (unknown) PROCEDURE:? XR LUMBAR SPINE MIN 4V (units unknown) (unknown) (unknown) (no date) (unknown) (unknown) PT: Had 4 sess ions of home health with Starla (units unknown) (unknown) (unknown) (no date) (unknown) (unknown) Pain Scale (units unknown) (unknown) (unknown) (no date) (unknown) (unknown) Pain Visit (units unknown) (unknown) (unknown) (no date) (unknown) (unknown) Pain location/Radiation: Middle low back, radiating to the right low back, right (units unknown) (unknown) (unknown) (no date) (unknown) (unknown) Pain ratin /10 today, 10/10 at worst (units unknown) (unknown) (unknown) (no date) (unknown) (unknown) Past medical, surgical, social, and family history is unchanged from prior (units unknown) (unknown) (unknown) (no date) (unknown) (unknown) Patient was conor miller seen here on 08/27/2022. Starla denied to see patient given her (units unknown) (unknown) (unknown) (no date) (unknown) (unknown) Patient will r eturn for []. Risks and benefits were discussed. (units unknown) (unknown) (unknown) (no date) (unknown) (unknown) Patient's pain has been present for >6 weeks and is an average of >6/10 on 0-10 (units unknown) (unknown) (unknown) (no date) (unknown) (unknown) Patient: Dulce Butt MR#: [id number] (units unknown) (unknown) (unknown) (no date) (unknown) (unknown) Peripheral neuropath y (units unknown) (unknown) (unknown) (no date) (unknown) (unknown) Plan (units unknown) (unknown) (unknown) (no date) (unknown) (unknown) Plan/Recommendations : (units unknown) (unknown) (unknown) (no date) (unknown) (unknown) Position Sitting (un its unknown) (unknown) (unknown) (no date) (unknown) (unknown) Prescriptions Written: [] (units unknown) (unknown) (unknown) (no date) (unknown) (unknown) Previous Visit Assessment: Mor is an 81-year-old female presenting for (units unknown) (unknown) (unknown) (no date) (unknown) (unknown) Previous pain treatments included: (units unknown) (unknown) (unknown) (no date) (unknown) (unknown) Psych: Appropr iate affect, answers questions appropriately (units unknown) (unknown) (unknown) (no date) (unknown) (unknown) Pulse 75 (units unknown) (unknown) (unknown) (no date) (unknown) (unknown) Pulse Oximetry (%) 9 3 (units unknown) (unknown) (unknown) (no date) (unknown) (unknown) Pulse Source Monitor (units unknown) (unknown) (unknown) (no date) (unknown) (unknown) Quality and ti pj of pain: Sharp in back, sharp in leg; constant (units unknown) (unknown) (unknown) (no date) (unknown) (unknown) ROS Narrative (units unknown) (unknown) (unknown) (no date) (unknown) (unknown) ROS Narrative: (unit s unknown) (unknown) (unknown) (no date) (unknown) (unknown) ROS (units unknown) (unknown) (unknown) (no date) (unknown) (unknown) Reason For Visit (un its unknown) (unknown) (unknown) (no date) (unknown) (unknown) Red flag symptoms: ( units unknown) (unknown) (unknown) (no date) (unknown) (unknown) Reflex Right Left (u nits unknown) (unknown) (unknown) (no date) (unknown) (unknown) Reflexes: (units unknown) (unknown) (unknown) (no date) (unknown) (unknown) Relieving fact ors include: recliner, medications (units unknown) (unknown) (unknown) (no date) (unknown) (unknown) Respiratory: Non-labored breathing pattern on RA. No respiratory distress (units unknown) (unknown) (unknown) (no date) (unknown) (unknown) Rheum 12/10/22 (units unknown) (unknown) (unknown) (no date) (unknown) (unknown) Rheumatology marilou lopez her history of arthritis of multiple joints.' (units unknown) (unknown) (unknown) (no date) (unknown) (unknown) Robaxin 750mg QID (u nits unknown) (unknown) (unknown) (no date) (unknown) (unknown) S1 Ankle Plantarflexion 12/05 12/05 (units unknown) (unknown) (unknown) (no date) (unknown) (unknown) SVT (supravent ricular tachycardia) (units unknown) (unknown) (unknown) (no date) (unknown) (unknown) Saddle anesthe ban: denies (units unknown) (unknown) (unknown) (no date) (unknown) (unknown) Segment Action Right Left (units unknown) (unknown) (unknown) (no date) (unknown) (unknown) Segment Reflex Right Left (units unknown) (unknown) (unknown) (no date) (unknown) (unknown) Sensory -? Int act to light touch at bilateral lower extremities. Allodynia (units unknown) (unknown) (unknown) (no date) (unknown) (unknown) [facility] (units unknown) (unknown) (unknown) (no date) (unknown) (unknown) Signed By: (units unknown) (unknown) (unknown) (no date) (unknown) (unknown) Skin: No appre ciable rashes or skin breakdown (units unknown) (unknown) (unknown) (no date) (unknown) (unknown) Smoking Status : Former smoker (units unknown) (unknown) (unknown) (no date) (unknown) (unknown) Soft tissues:? Overlying bowel gas pattern is normal.? No suspicious soft tissue (units unknown) (unknown) (unknown) (no date) (unknown) (unknown) Surgery: Denies (uni ts unknown) (unknown) (unknown) (no date) (unknown) (unknown) Surgical Histo ry (units unknown) (unknown) (unknown) (no date) (unknown) (unknown) TECHNIQUE:? 6 views of the lumbar spine acquired, including flexion and (units unknown) (unknown) (unknown) (no date) (unknown) (unknown) Temp 97.2 F L (units unknown) (unknown) (unknown) (no date) (unknown) (unknown) Temp Source Te mporal Artery Scan (units unknown) (unknown) (unknown) (no date) (unknown) (unknown) [facility] (units unknown) (unknown) (unknown) (no date) (unknown) (unknown) This note may have been all or partially generated using voice recognition (units unknown) (unknown) (unknown) (no date) (unknown) (unknown) Tobacco + Subs tance Use (units unknown) (unknown) (unknown) (no date) (unknown) (unknown) Tobacco Status (unit s unknown) (unknown) (unknown) (no date) (unknown) (unknown) Today I have r eviewed available medical information in the patient's medical (units unknown) (unknown) (unknown) (no date) (unknown) (unknown) Upper Motor Ne uron Signs: (units unknown) (unknown) (unknown) (no date) (unknown) (unknown) Urinary incontinence (units unknown) (unknown) (unknown) (no date) (unknown) (unknown) Visit Reasons: 6WK FOLLOW UP (units unknown) (unknown) (unknown) (no date) (unknown) (unknown) Vitals (units unknown) (unknown) (unknown) (no date) (unknown) (unknown) Voltaren gel - on knee and anterior leg (units unknown) (unknown) (unknown) (no date) (unknown) (unknown) [place] 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 (units unknown) (unknown) (unknown) (no date) (unknown) (unknown) We reviewed et iology, predisposing factor(s), natural course, imaging results as (units unknown) (unknown) (unknown) (no date) (unknown) (unknown) Weakness: b/l leg weakness (units unknown) (unknown) (unknown) (no date) (unknown) (unknown) Weight 297 lb (units unknown) (unknown) (unknown) (no date) (unknown) (unknown) able to partic ipate in ADLs, had improved sleep, improved mobility, etc. (units unknown) (unknown) (unknown) (no date) (unknown) (unknown) alignment. (units unknown) (unknown) (unknown) (no date) (unknown) (unknown) alignment.? No (unit s unknown) (unknown) (unknown) (no date) (unknown) (unknown) amitriptyline 10 mg tablet 10 mg PO BEDTIME 10/07/22 [History Confirmed (units unknown) (unknown) (unknown) (no date) (unknown) (unknown) amitriptyline 50 mg tablet 50 mg PO BEDTIME 08/27/22 [History Confirmed (units unknown) (unknown) (unknown) (no date) (unknown) (unknown) and oblique views. ( units unknown) (unknown) (unknown) (no date) (unknown) (unknown) and strengthen ing of the lower extremities her goal is to be able to transfer (units unknown) (unknown) (unknown) (no date) (unknown) (unknown) as it is quite expensive for her to travel given her immobility.? She may also (units unknown) (unknown) (unknown) (no date) (unknown) (unknown) atorvastatin 2 0 mg tablet 20 mg PO BEDTIME 08/27/22 [History Confirmed 08/27/22] (units unknown) (unknown) (unknown) (no date) (unknown) (unknown) be a candidate for mild procedure given ligamentum flavum hypertrophy of (units unknown) (unknown) (unknown) (no date) (unknown) (unknown) benefit.? Not interested in interventions today there focus on physical therapy (units unknown) (unknown) (unknown) (no date) (unknown) (unknown) benefits of va rious treatment options were discussed with the patient in great (units unknown) (unknown) (unknown) (no date) (unknown) (unknown) bowel/bladder dysfunction, and perineal numbness were discussed. The patient was (units unknown) (unknown) (unknown) (no date) (unknown) (unknown) buttock, anter ior thigh, anterior lower leg and dorsum of foot (units unknown) (unknown) (unknown) (no date) (unknown) (unknown) calcifications.? (un its unknown) (unknown) (unknown) (no date) (unknown) (unknown) cannot tolerat e physical therapy at the current time due to the intensity of the (units unknown) (unknown) (unknown) (no date) (unknown) (unknown) carvedilol 12. 5 mg tablet 12.5 mg PO ONCE 08/27/22 [History Confirmed 08/27/22] (units unknown) (unknown) (unknown) (no date) (unknown) (unknown) decrease of le g and back pain) (units unknown) (unknown) (unknown) (no date) (unknown) (unknown) detail. (units unknown) (unknown) (unknown) (no date) (unknown) (unknown) duloxetine 60 mg capsule,delayed release 60 mg PO DAILY 08/27/22 [History (units unknown) (unknown) (unknown) (no date) (unknown) (unknown) extension views (uni ts unknown) (unknown) (unknown) (no date) (unknown) (unknown) from joi zach with less assistance.? We will arrange for [place] home health care (units unknown) (unknown) (unknown) (no date) (unknown) (unknown) furosemide 40 mg tablet 40 mg PO DAILY 08/27/22 [History Confirmed 08/27/22] (units unknown) (unknown) (unknown) (no date) (unknown) (unknown) further evalua tion of low back and right leg pain.? Pain is likely (units unknown) (unknown) (unknown) (no date) (unknown) (unknown) have occurred. If there are any questions, please contact the Medical Records (units unknown) (unknown) (unknown) (no date) (unknown) (unknown) hydrocodone 7. 5 mg-acetaminophen 325 mg tablet 1 tab PO 08/27/22 [History (units unknown) (unknown) (unknown) (no date) (unknown) (unknown) in PT. [] (units unknown) (unknown) (unknown) (no date) (unknown) (unknown) instructed to report to the Emergency department, if these symptoms occur. (units unknown) (unknown) (unknown) (no date) (unknown) (unknown) instructed to stop if any side effects. [] (units unknown) (unknown) (unknown) (no date) (unknown) (unknown) intravenous dr ug use, sustained glucocorticoid use, osteoporosis, or a focal (units unknown) (unknown) (unknown) (no date) (unknown) (unknown) lack of compli ance and participation with care. She started home PT with (units unknown) (unknown) (unknown) (no date) (unknown) (unknown) losartan 100 m g tablet 100 mg PO DAILY 08/27/22 [History Confirmed 08/27/22] (units unknown) (unknown) (unknown) (no date) (unknown) (unknown) losartan 50 mg tablet 50 mg PO DAILY 08/27/22 [History Confirmed 08/27/22] (units unknown) (unknown) (unknown) (no date) (unknown) (unknown) may occur. Occ asional wrong-word or 'sound-alike' substitutions may have (units unknown) (unknown) (unknown) (no date) (unknown) (unknown) meds. [] (units unknown) (unknown) (unknown) (no date) (unknown) (unknown) methocarbamol 750 mg tablet 750 mg PO BEDTIME 08/27/22 [History Confirmed (units unknown) (unknown) (unknown) (no date) (unknown) (unknown) multifactorial including both axial and radicular components.? She is had (units unknown) (unknown) (unknown) (no date) (unknown) (unknown) multiple epidu ral steroid injections in the past at [facility] without (units unknown) (unknown) (unknown) (no date) (unknown) (unknown) multiple level s of the lumbar spine.? She is also interested in a referral to (units unknown) (unknown) (unknown) (no date) (unknown) (unknown) negative, Hype ralgesia - negative (units unknown) (unknown) (unknown) (no date) (unknown) (unknown) neurological d eficit with progressive or disabling symptoms. (units unknown) (unknown) (unknown) (no date) (unknown) (unknown) occurred due t o the inherent limitations of voice recognition software. Please (units unknown) (unknown) (unknown) (no date) (unknown) (unknown) of Spinal Cord Injur y) (units unknown) (unknown) (unknown) (no date) (unknown) (unknown) omeprazole 20 mg capsule,delayed release 20 mg PO DAILY 08/27/22 [History (units unknown) (unknown) (unknown) (no date) (unknown) (unknown) or immunosuppr essive therapy, previous or current cancer diagnosis, history of (units unknown) (unknown) (unknown) (no date) (unknown) (unknown) pain. [] (units unknown) (unknown) (unknown) (no date) (unknown) (unknown) pregabalin 50 mg capsule 50 mg PO DAILY 08/27/22 [History Confirmed 08/27/22] (units unknown) (unknown) (unknown) (no date) (unknown) (unknown) read the note carefully and recognize, using context, where these substitutions (units unknown) (unknown) (unknown) (no date) (unknown) (unknown) record, includ ing relevant provider notes, laboratory work, and imaging. (units unknown) (unknown) (unknown) (no date) (unknown) (unknown) scale and/or p ain interferes with ADLs. (units unknown) (unknown) (unknown) (no date) (unknown) (unknown) simvastatin 40 mg tablet 40 mg PO BEDTIME 08/27/22 [History Confirmed 08/27/22] (units unknown) (unknown) (unknown) (no date) (unknown) (unknown) software. Alth ough every effort is made to edit content, excelsior cutter errors (units unknown) (unknown) (unknown) (no date) (unknown) (unknown) therapeutic in jections and surgery. The risks, consequences, alternatives and (units unknown) (unknown) (unknown) (no date) (unknown) (unknown) therapy. ?A re ferral was provided for the patient. [] (units unknown) (unknown) (unknown) (no date) (unknown) (unknown) vertebral body compression fractures.? No suspicious bony lesions.? (units unknown) (unknown) (unknown) (no date) (unknown) (unknown) visit. (units unknown) (unknown) (unknown) (no date) (unknown) (unknown) well as treatm ent options including medications, physical therapy/exercise, (units unknown) (unknown) (unknown) (no date) (unknown) (unknown) with future tr eatment planning. [] (units unknown) (unknown) Result panel 7 (unknown) (no date) (unknown) (unknown) (no value) (units unknown) (unknown) (unknown) (no date) (unknown) (unknown) (0=absent, 1=s light response, 2=brisk/normal, 3=very brisk, 4=clonus) (units unknown) (unknown) (unknown) (no date) (unknown) (unknown) (segments are from the International Standards for Neurological Classification (units unknown) (unknown) (unknown) (no date) (unknown) (unknown) - Activity: Co ntinue activity as tolerated. [] (units unknown) (unknown) (unknown) (no date) (unknown) (unknown) - Chiropractor , acupuncture[] (units unknown) (unknown) (unknown) (no date) (unknown) (unknown) - Continues cl inician directed home exercise program including exercises learned (units unknown) (unknown) (unknown) (no date) (unknown) (unknown) - Education: C auda equina and associated symptoms, including motor weakness, (units unknown) (unknown) (unknown) (no date) (unknown) (unknown) - FADIR: Unabl e to assess (units unknown) (unknown) (unknown) (no date) (unknown) (unknown) - Follow-up: [] (uni ts unknown) (unknown) (unknown) (no date) (unknown) (unknown) - Hip ROM is: Unable to assess (units unknown) (unknown) (unknown) (no date) (unknown) (unknown) - I discussed risks, benefits and side effects. Additionally, patient was (units unknown) (unknown) (unknown) (no date) (unknown) (unknown) - Imaging: No new imaging indicated at this time. [] (units unknown) (unknown) (unknown) (no date) (unknown) (unknown) - Interventional/Surgica l procedures: None indicated at this time. [] (units unknown) (unknown) (unknown) (no date) (unknown) (unknown) - Lumbar facet loading: Unable to assess (units unknown) (unknown) (unknown) (no date) (unknown) (unknown) - Medications: No new prescription at this time. Patient will continue current (units unknown) (unknown) (unknown) (no date) (unknown) (unknown) - Medications: acetaminophen, NSAIDS, neuropathics, muscle relaxants [] (units unknown) (unknown) (unknown) (no date) (unknown) (unknown) - Physical The rapy: Completed 6 week course in the last 6 months OR Patient (units unknown) (unknown) (unknown) (no date) (unknown) (unknown) - Physical therapy/modalities/DME : Patient will likely benefit from physical (units unknown) (unknown) (unknown) (no date) (unknown) (unknown) - Prescription provided and uptitration instructions given if necessary. [] (units unknown) (unknown) (unknown) (no date) (unknown) (unknown) - Previous [] on [] provided []% relief of pain for []. During that time patient (units unknown) (unknown) (unknown) (no date) (unknown) (unknown) - Referrals: N one indicated at this time. [] (units unknown) (unknown) (unknown) (no date) (unknown) (unknown) - SIJ provocat ion testing: Unable to assess (units unknown) (unknown) (unknown) (no date) (unknown) (unknown) - Seated strai ght Leg Raise: Negative bilaterally (units unknown) (unknown) (unknown) (no date) (unknown) (unknown) 08/27/22] (units unknown) (unknown) (unknown) (no date) (unknown) (unknown) 10/07/22 (units unknown) (unknown) (unknown) (no date) (unknown) (unknown) 10/07/22] (units unknown) (unknown) (unknown) (no date) (unknown) (unknown) 1. Lower lumba r facet arthropathy. (units unknown) (unknown) (unknown) (no date) (unknown) (unknown) 14:04 (units unknown) (unknown) (unknown) (no date) (unknown) (unknown) 2. No abnormal motion on flexion and extension. (units unknown) (unknown) (unknown) (no date) (unknown) (unknown) 3. No pars defects.? (units unknown) (unknown) (unknown) (no date) (unknown) (unknown) 4 years (units unknown) (unknown) (unknown) (no date) (unknown) (unknown) [id number] (units unknown) (unknown) (unknown) (no date) (unknown) (unknown) 6 WEEK FOLLOW UP (un its unknown) (unknown) (unknown) (no date) (unknown) (unknown) ? Inspection - ? No gross appendicular or axial deformities (units unknown) (unknown) (unknown) (no date) (unknown) (unknown) ? Palpation -tenderness to palpation of the right lumbar paraspinous musculature (units unknown) (unknown) (unknown) (no date) (unknown) (unknown) ? ROM -unable to assess (units unknown) (unknown) (unknown) (no date) (unknown) (unknown) ? Special tests (uni ts unknown) (unknown) (unknown) (no date) (unknown) (unknown) ? (units unknown) (unknown) (unknown) (no date) (unknown) (unknown) ? Acetaminophen - current (units unknown) (unknown) (unknown) (no date) (unknown) (unknown) ? Antidepressants - current (units unknown) (unknown) (unknown) (no date) (unknown) (unknown) ? Antiepileptics - current (units unknown) (unknown) (unknown) (no date) (unknown) (unknown) ? Mu scle Relaxants - current (units unknown) (unknown) (unknown) (no date) (unknown) (unknown) ? NS AIDs - h/o heart disease (units unknown) (unknown) (unknown) (no date) (unknown) (unknown) ? Op ioids - [place] - constipation and no pain relief (units unknown) (unknown) (unknown) (no date) (unknown) (unknown) ? Steroids (units unknown) (unknown) (unknown) (no date) (unknown) (unknown) ? To picals - current (units unknown) (unknown) (unknown) (no date) (unknown) (unknown) Accompanied by : Photogeologist (units unknown) (unknown) (unknown) (no date) (unknown) (unknown) Activities aff ected: walking, standing (units unknown) (unknown) (unknown) (no date) (unknown) (unknown) Age/Sex: 81 / F Date of Service: (units unknown) (unknown) (unknown) (no date) (unknown) (unknown) Aggravating fa ctors include: movement (units unknown) (unknown) (unknown) (no date) (unknown) (unknown) All other syst ems reviewed and are unremarkable except as noted in HPI. (units unknown) (unknown) (unknown) (no date) (unknown) (unknown) Allergies (units unknown) (unknown) (unknown) (no date) (unknown) (unknown) Amitriptyline 50mg 1-3 tablets QHS PRN pain/insomina (units unknown) (unknown) (unknown) (no date) (unknown) (unknown) SYBIL [place] [id number] (units unknown) (unknown) (unknown) (no date) (unknown) (unknown) Aortic regurgitation (units unknown) (unknown) (unknown) (no date) (unknown) (unknown) Approved by: Oscar Grissom M.D. on 08/27/2022 at 16:35 ? (units unknown) (unknown) (unknown) (no date) (unknown) (unknown) Assessment + Plan (u nits unknown) (unknown) (unknown) (no date) (unknown) (unknown) Assessment: (units unknown) (unknown) (unknown) (no date) (unknown) (unknown) Attending Dr: Jay Camarillo MD (units unknown) (unknown) (unknown) (no date) (unknown) (unknown) B/L L3-4 TFESI ([facility]) 05/09/20 ? (units unknown) (unknown) (unknown) (no date) (unknown) (unknown) BMI 46.5 (units unknown) (unknown) (unknown) (no date) (unknown) (unknown) BP 130/80 (units unknown) (unknown) (unknown) (no date) (unknown) (unknown) Jorge's Daren ngoing Downgoing (units unknown) (unknown) (unknown) (no date) (unknown) (unknown) Back pain, lumbosacr al (units unknown) (unknown) (unknown) (no date) (unknown) (unknown) Blood Pressure Location Lt brachial (units unknown) (unknown) (unknown) (no date) (unknown) (unknown) Bones:? 5 nonrib-bearing vertebrae are present.? There is normal bony (units unknown) (unknown) (unknown) (no date) (unknown) (unknown) Bowel and blad tyler: Has had urinary as well as bowel incontinence for the past 3 (units unknown) (unknown) (unknown) (no date) (unknown) (unknown) Breast cancer (units unknown) (unknown) (unknown) (no date) (unknown) (unknown) CHF (congestiv e heart failure) (units unknown) (unknown) (unknown) (no date) (unknown) (unknown) COMPARISON:? I [facility], MR, MR LUMBAR SPINE WO CON, 04/16/2021, 14:10. (units unknown) (unknown) (unknown) (no date) (unknown) (unknown) COPD (chronic obstructive pulmonary disease) (units unknown) (unknown) (unknown) (no date) (unknown) (unknown) Carotid artery disea se (units unknown) (unknown) (unknown) (no date) (unknown) (unknown) Carpal tunnel syndro me (units unknown) (unknown) (unknown) (no date) (unknown) (unknown) Chart review: (units unknown) (unknown) (unknown) (no date) (unknown) (unknown) Chief Complaint (uni ts unknown) (unknown) (unknown) (no date) (unknown) (unknown) Chief Complain t: Low back and leg pain (units unknown) (unknown) (unknown) (no date) (unknown) (unknown) Chronic arthritis (u nits unknown) (unknown) (unknown) (no date) (unknown) (unknown) Confirmed 08/27/22] (units unknown) (unknown) (unknown) (no date) (unknown) (unknown) Conservative management includes: (units unknown) (unknown) (unknown) (no date) (unknown) (unknown) Continue [facility] physical therapy. [] (units unknown) (unknown) (unknown) (no date) (unknown) (unknown) Continue home exercise program. [] (units unknown) (unknown) (unknown) (no date) (unknown) (unknown) Current VAS: 5/10 (u nits unknown) (unknown) (unknown) (no date) (unknown) (unknown) Current pain treatments include: (units unknown) (unknown) (unknown) (no date) (unknown) (unknown) Cymbalta 60mg QD (un its unknown) (unknown) (unknown) (no date) (unknown) (unknown) : 2 Acct:[id number] (units unknown) (unknown) (unknown) (no date) (unknown) (unknown) Denies recent trauma, fever or weight loss of unknown origin, immunocompromise (units unknown) (unknown) (unknown) (no date) (unknown) (unknown) Dept at . (units unknown) (unknown) (unknown) (no date) (unknown) (unknown) Details: (units unknown) (unknown) (unknown) (no date) (unknown) (unknown) Dictated by: Oscar Grissom M.D. on 08/27/2022 at 16:33 ? ? (units unknown) (unknown) (unknown) (no date) (unknown) (unknown) Documented By: Jay Camarillo MD 10/06/22 1200 (units unknown) (unknown) (unknown) (no date) (unknown) (unknown) Draft (units unknown) (unknown) (unknown) (no date) (unknown) (unknown) Dysphagia (units unknown) (unknown) (unknown) (no date) (unknown) (unknown) Elevated liver enzym es (units unknown) (unknown) (unknown) (no date) (unknown) (unknown) Exam Narrative (unit s unknown) (unknown) (unknown) (no date) (unknown) (unknown) Exam Narrative: (uni ts unknown) (unknown) (unknown) (no date) (unknown) (unknown) Exam (units unknown) (unknown) (unknown) (no date) (unknown) (unknown) FINDINGS:? (units unknown) (unknown) (unknown) (no date) (unknown) (unknown) Fibromyalgia (units unknown) (unknown) (unknown) (no date) (unknown) (unknown) Flexion/extens ion:? There is diminished range of motion, with preserved normal (units unknown) (unknown) (unknown) (no date) (unknown) (unknown) GERD (gastroes ophageal reflux disease) (units unknown) (unknown) (unknown) (no date) (unknown) (unknown) Gait/Station -nonambulatory (units unknown) (unknown) (unknown) (no date) (unknown) (unknown) General: Well-nourished, well-developed, female in no acute distress (units unknown) (unknown) (unknown) (no date) (unknown) (unknown) HPI (units unknown) (unknown) (unknown) (no date) (unknown) (unknown) Height 5 ft 7 in (un its unknown) (unknown) (unknown) (no date) (unknown) (unknown) History of appendectomy (units unknown) (unknown) (unknown) (no date) (unknown) (unknown) History of j luis ast surgery (units unknown) (unknown) (unknown) (no date) (unknown) (unknown) History of cat aract extraction (units unknown) (unknown) (unknown) (no date) (unknown) (unknown) History of tonsillectomy (units unknown) (unknown) (unknown) (no date) (unknown) (unknown) Hyperglycemia (units unknown) (unknown) (unknown) (no date) (unknown) (unknown) Hypertension (units unknown) (unknown) (unknown) (no date) (unknown) (unknown) IMPRESSION:? (units unknown) (unknown) (unknown) (no date) (unknown) (unknown) INDICATIONS:? LOW BACK PAIN (units unknown) (unknown) (unknown) (no date) (unknown) (unknown) Insomnia (units unknown) (unknown) (unknown) (no date) (unknown) (unknown) Intake Clinical Staf f (units unknown) (unknown) (unknown) (no date) (unknown) (unknown) Intake Note: (units unknown) (unknown) (unknown) (no date) (unknown) (unknown) Intake perform ed by: Majo Damon (units unknown) (unknown) (unknown) (no date) (unknown) (unknown) Intake (units unknown) (unknown) (unknown) (no date) (unknown) (unknown) Interval History: (u nits unknown) (unknown) (unknown) (no date) (unknown) (unknown) Intervention:?Date:?Outcome:?? ? (units unknown) (unknown) (unknown) (no date) (unknown) (unknown) Is patient in pain?: Yes Pain scale (1-10): 6 (units unknown) (unknown) (unknown) (no date) (unknown) (unknown) JUSTIFICATION OF MEDICAL NECESSITY (units unknown) (unknown) (unknown) (no date) (unknown) (unknown) L-spine/T-spin e/C-spin e MRI ordered to better delineate the anatomy and help (units unknown) (unknown) (unknown) (no date) (unknown) (unknown) L2 Hip Flexion 5/5 5/5? (units unknown) (unknown) (unknown) (no date) (unknown) (unknown) L2-3 MARCIAL ([facility]) 11/28/20 ? (units unknown) (unknown) (unknown) (no date) (unknown) (unknown) L2-3 [facility]CIAL ([facility]) 01/31/21 ? (units unknown) (unknown) (unknown) (no date) (unknown) (unknown) L3 Knee Extens ion 5/5 5/5 (units unknown) (unknown) (unknown) (no date) (unknown) (unknown) L3-4 AMRCIAL ([facility]) 08/13/20 ? (units unknown) (unknown) (unknown) (no date) (unknown) (unknown) L3-4 Patella 2+ 2 (u nits unknown) (unknown) (unknown) (no date) (unknown) (unknown) L4 Ankle Dorsi flexion 12/05 12/05 (units unknown) (unknown) (unknown) (no date) (unknown) (unknown) L4-5 MARCIAL ([facility])? 01/07/22 most helpful so far (slight (units unknown) (unknown) (unknown) (no date) (unknown) (unknown) L5 Long Toe Ex tension /12/05 (units unknown) (unknown) (unknown) (no date) (unknown) (unknown) Leg pain, right (uni ts unknown) (unknown) (unknown) (no date) (unknown) (unknown) Loc: PAIN (units unknown) (unknown) (unknown) (no date) (unknown) (unknown) Low back pain (units unknown) (unknown) (unknown) (no date) (unknown) (unknown) Lumbar radiculopathy (units unknown) (unknown) (unknown) (no date) (unknown) (unknown) Lymphedema (units unknown) (unknown) (unknown) (no date) (unknown) (unknown) Lyrica 50mg TID (uni ts unknown) (unknown) (unknown) (no date) (unknown) (unknown) MSK: System re viewed and no additional complaints, except as documented. (units unknown) (unknown) (unknown) (no date) (unknown) (unknown) Medical Histor y (Updated 08/27/22 @ 14:12 by Jay Camarillo MD) (units unknown) (unknown) (unknown) (no date) (unknown) (unknown) Medications (units unknown) (unknown) (unknown) (no date) (unknown) (unknown) Medications: (units unknown) (unknown) (unknown) (no date) (unknown) (unknown) Morbid obesity (unit s unknown) (unknown) (unknown) (no date) (unknown) (unknown) Motor (units unknown) (unknown) (unknown) (no date) (unknown) (unknown) Musculoskeletal: (un its unknown) (unknown) (unknown) (no date) (unknown) (unknown) Neuro: System reviewed and no additional complaints, except as documented. (units unknown) (unknown) (unknown) (no date) (unknown) (unknown) Neurologic: (units unknown) (unknown) (unknown) (no date) (unknown) (unknown) No Known Drug Allergies Allergy (Verified 10/07/22 10:23) (units unknown) (unknown) (unknown) (no date) (unknown) (unknown) Not indicated at this time. [] (units unknown) (unknown) (unknown) (no date) (unknown) (unknown) Numbness/Tingl ing: all 4 extremity tingling due to neuropathy (units unknown) (unknown) (unknown) (no date) (unknown) (unknown) Objective Data (unit s unknown) (unknown) (unknown) (no date) (unknown) (unknown) Objective Data: (uni ts unknown) (unknown) (unknown) (no date) (unknown) (unknown) Oblique films: ? No pars defects. (units unknown) (unknown) (unknown) (no date) (unknown) (unknown) Onset/Context of param n: (units unknown) (unknown) (unknown) (no date) (unknown) (unknown) Onset: Insidious (un its unknown) (unknown) (unknown) (no date) (unknown) (unknown) Other: Denies (units unknown) (unknown) (unknown) (no date) (unknown) (unknown) Oxygen Deliver y Method nasal canula (units unknown) (unknown) (unknown) (no date) (unknown) (unknown) PFSH (units unknown) (unknown) (unknown) (no date) (unknown) (unknown) PROCEDURE:? XR LUMBAR SPINE MIN 4V (units unknown) (unknown) (unknown) (no date) (unknown) (unknown) PT: Had 4 sess ions of home health with Starla (units unknown) (unknown) (unknown) (no date) (unknown) (unknown) Pain Scale (units unknown) (unknown) (unknown) (no date) (unknown) (unknown) Pain Visit (units unknown) (unknown) (unknown) (no date) (unknown) (unknown) Pain location/Radiation: Middle low back, radiating to the right low back, right (units unknown) (unknown) (unknown) (no date) (unknown) (unknown) Pain ratin /10 today, 10/10 at worst (units unknown) (unknown) (unknown) (no date) (unknown) (unknown) Past medical, surgical, social, and family history is unchanged from prior (units unknown) (unknown) (unknown) (no date) (unknown) (unknown) Patient was conor miller seen here on 08/27/2022. Starla denied to see patient given her (units unknown) (unknown) (unknown) (no date) (unknown) (unknown) Patient will r eturn for []. Risks and benefits were discussed. (units unknown) (unknown) (unknown) (no date) (unknown) (unknown) Patient's pain has been present for >6 weeks and is an average of >6/10 on 0-10 (units unknown) (unknown) (unknown) (no date) (unknown) (unknown) Patient: Dulce Butt MR#: [id number] (units unknown) (unknown) (unknown) (no date) (unknown) (unknown) Peripheral neuropath y (units unknown) (unknown) (unknown) (no date) (unknown) (unknown) Plan (units unknown) (unknown) (unknown) (no date) (unknown) (unknown) Plan/Recommendations : (units unknown) (unknown) (unknown) (no date) (unknown) (unknown) Position Sitting (un its unknown) (unknown) (unknown) (no date) (unknown) (unknown) Prescriptions Written: [] (units unknown) (unknown) (unknown) (no date) (unknown) (unknown) Previous Visit Assessment: 'Dulce is an 81-year-old female presenting for (units unknown) (unknown) (unknown) (no date) (unknown) (unknown) Previous pain treatments included: (units unknown) (unknown) (unknown) (no date) (unknown) (unknown) Psych: Appropr iate affect, answers questions appropriately (units unknown) (unknown) (unknown) (no date) (unknown) (unknown) Pulse 75 (units unknown) (unknown) (unknown) (no date) (unknown) (unknown) Pulse Oximetry (%) 9 3 (units unknown) (unknown) (unknown) (no date) (unknown) (unknown) Pulse Source Monitor (units unknown) (unknown) (unknown) (no date) (unknown) (unknown) Quality and ti pj of pain: Sharp in back, sharp in leg; constant (units unknown) (unknown) (unknown) (no date) (unknown) (unknown) ROS Narrative (units unknown) (unknown) (unknown) (no date) (unknown) (unknown) ROS Narrative: (unit s unknown) (unknown) (unknown) (no date) (unknown) (unknown) ROS (units unknown) (unknown) (unknown) (no date) (unknown) (unknown) Reason For Visit (un its unknown) (unknown) (unknown) (no date) (unknown) (unknown) Red flag symptoms: ( units unknown) (unknown) (unknown) (no date) (unknown) (unknown) Reflex Right Left (u nits unknown) (unknown) (unknown) (no date) (unknown) (unknown) Reflexes: (units unknown) (unknown) (unknown) (no date) (unknown) (unknown) Relieving fact ors include: recliner, medications (units unknown) (unknown) (unknown) (no date) (unknown) (unknown) Respiratory: Non-labored breathing pattern on RA. No respiratory distress (units unknown) (unknown) (unknown) (no date) (unknown) (unknown) Rheum appointm ent for 12/10/22 (units unknown) (unknown) (unknown) (no date) (unknown) (unknown) Rheumatology g john her history of arthritis of multiple joints.' (units unknown) (unknown) (unknown) (no date) (unknown) (unknown) Robaxin 750mg QID (u nits unknown) (unknown) (unknown) (no date) (unknown) (unknown) S1 Ankle Plantarflexion 12/05 12/05 (units unknown) (unknown) (unknown) (no date) (unknown) (unknown) SVT (supravent ricular tachycardia) (units unknown) (unknown) (unknown) (no date) (unknown) (unknown) [place]addle anesthe ban: denies (units unknown) (unknown) (unknown) (no date) (unknown) (unknown) Segment Action Right Left (units unknown) (unknown) (unknown) (no date) (unknown) (unknown) Segment Reflex Right Left (units unknown) (unknown) (unknown) (no date) (unknown) (unknown) Sensory -? Int act to light touch at bilateral lower extremities. Allodynia (units unknown) (unknown) (unknown) (no date) (unknown) (unknown) She continues have LBP and right leg pain. This has improved since her last (units unknown) (unknown) (unknown) (no date) (unknown) (unknown) [facility] for the last 2 weeks. She has been working on (units unknown) (unknown) (unknown) (no date) (unknown) (unknown) Signed By: (units unknown) (unknown) (unknown) (no date) (unknown) (unknown) Skin: No appre ciable rashes or skin breakdown (units unknown) (unknown) (unknown) (no date) (unknown) (unknown) Smoking Status : Former smoker (units unknown) (unknown) (unknown) (no date) (unknown) (unknown) Soft tissues:? Overlying bowel gas pattern is normal.? No suspicious soft tissue (units unknown) (unknown) (unknown) (no date) (unknown) (unknown) Surgery: Denies (uni ts unknown) (unknown) (unknown) (no date) (unknown) (unknown) Surgical Histo ry (units unknown) (unknown) (unknown) (no date) (unknown) (unknown) TECHNIQUE:? 6 views of the lumbar spine acquired, including flexion and (units unknown) (unknown) (unknown) (no date) (unknown) (unknown) Temp 97.2 F L (units unknown) (unknown) (unknown) (no date) (unknown) (unknown) Temp Source Te mporal Artery Scan (units unknown) (unknown) (unknown) (no date) (unknown) (unknown) [facility] (units unknown) (unknown) (unknown) (no date) (unknown) (unknown) This note may have been all or partially generated using voice recognition (units unknown) (unknown) (unknown) (no date) (unknown) (unknown) Tobacco + Subs tance Use (units unknown) (unknown) (unknown) (no date) (unknown) (unknown) Tobacco Status (unit s unknown) (unknown) (unknown) (no date) (unknown) (unknown) Today I have r simonaiewed available medical information in the patient's medical (units unknown) (unknown) (unknown) (no date) (unknown) (unknown) Upper Motor Ne uron Signs: (units unknown) (unknown) (unknown) (no date) (unknown) (unknown) Urinary incontinence (units unknown) (unknown) (unknown) (no date) (unknown) (unknown) Visit Reasons: 6WK FOLLOW UP (units unknown) (unknown) (unknown) (no date) (unknown) (unknown) Vitals (units unknown) (unknown) (unknown) (no date) (unknown) (unknown) Voltaren gel - on knee and anterior leg (units unknown) (unknown) (unknown) (no date) (unknown) (unknown) [place] 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 (units unknown) (unknown) (unknown) (no date) (unknown) (unknown) We reviewed et iology, predisposing factor(s), natural course, imaging results as (units unknown) (unknown) (unknown) (no date) (unknown) (unknown) Weakness: b/l leg weakness (units unknown) (unknown) (unknown) (no date) (unknown) (unknown) Weight 297 lb (units unknown) (unknown) (unknown) (no date) (unknown) (unknown) able to partic ipate in ADLs, had improved sleep, improved mobility, etc. (units unknown) (unknown) (unknown) (no date) (unknown) (unknown) alignment. (units unknown) (unknown) (unknown) (no date) (unknown) (unknown) alignment.? No (unit s unknown) (unknown) (unknown) (no date) (unknown) (unknown) amitriptyline 10 mg tablet 10 mg PO BEDTIME 10/07/22 [History Confirmed (units unknown) (unknown) (unknown) (no date) (unknown) (unknown) amitriptyline 50 mg tablet 50 mg PO BEDTIME 08/27/22 [History Confirmed (units unknown) (unknown) (unknown) (no date) (unknown) (unknown) and oblique views. ( units unknown) (unknown) (unknown) (no date) (unknown) (unknown) and strengthen ing of the lower extremities her goal is to be able to transfer (units unknown) (unknown) (unknown) (no date) (unknown) (unknown) as it is quite expensive for her to travel given her immobility.? She may also (units unknown) (unknown) (unknown) (no date) (unknown) (unknown) atorvastatin 2 0 mg tablet 20 mg PO BEDTIME 08/27/22 [History Confirmed 08/27/22] (units unknown) (unknown) (unknown) (no date) (unknown) (unknown) be a candidate for mild procedure given ligamentum flavum hypertrophy of (units unknown) (unknown) (unknown) (no date) (unknown) (unknown) benefit.? Not interested in interventions today there focus on physical therapy (units unknown) (unknown) (unknown) (no date) (unknown) (unknown) benefits of [place] treatment options were discussed with the patient in great (units unknown) (unknown) (unknown) (no date) (unknown) (unknown) bowel/bladder dysfunction, and perineal numbness were discussed. The patient was (units unknown) (unknown) (unknown) (no date) (unknown) (unknown) buttock, anter ior thigh, anterior lower leg and dorsum of foot (units unknown) (unknown) (unknown) (no date) (unknown) (unknown) calcifications.? (un its unknown) (unknown) (unknown) (no date) (unknown) (unknown) cannot tolerat e physical therapy at the current time due to the intensity of the (units unknown) (unknown) (unknown) (no date) (unknown) (unknown) carvedilol 12. 5 mg tablet 12.5 mg PO ONCE 08/27/22 [History Confirmed 08/27/22] (units unknown) (unknown) (unknown) (no date) (unknown) (unknown) decrease of le g and back pain) (units unknown) (unknown) (unknown) (no date) (unknown) (unknown) detail. (units unknown) (unknown) (unknown) (no date) (unknown) (unknown) duloxetine 60 mg capsule,delayed release 60 mg PO DAILY 08/27/22 [History (units unknown) (unknown) (unknown) (no date) (unknown) (unknown) extension views (uni ts unknown) (unknown) (unknown) (no date) (unknown) (unknown) from joi serrano with less assistance.? We will arrange for [place] home health care (units unknown) (unknown) (unknown) (no date) (unknown) (unknown) furosemide 40 mg tablet 40 mg PO DAILY 08/27/22 [History Confirmed 08/27/22] (units unknown) (unknown) (unknown) (no date) (unknown) (unknown) further evalua tion of low back and right leg pain.? Pain is likely (units unknown) (unknown) (unknown) (no date) (unknown) (unknown) have occurred. If there are any questions, please contact the Medical Records (units unknown) (unknown) (unknown) (no date) (unknown) (unknown) hydrocodone 7. 5 mg-acetaminophen 325 mg tablet 1 tab PO 08/27/22 [History (units unknown) (unknown) (unknown) (no date) (unknown) (unknown) in PT. [] (units unknown) (unknown) (unknown) (no date) (unknown) (unknown) instructed to report to the Emergency department, if these symptoms occur. (units unknown) (unknown) (unknown) (no date) (unknown) (unknown) instructed to stop if any side effects. [] (units unknown) (unknown) (unknown) (no date) (unknown) (unknown) intravenous dr ug use, sustained glucocorticoid use, osteoporosis, or a focal (units unknown) (unknown) (unknown) (no date) (unknown) (unknown) lack of compli ance and participation with care. She started home PT with (units unknown) (unknown) (unknown) (no date) (unknown) (unknown) losartan 100 m g tablet 100 mg PO DAILY 08/27/22 [History Confirmed 08/27/22] (units unknown) (unknown) (unknown) (no date) (unknown) (unknown) losartan 50 mg tablet 50 mg PO DAILY 08/27/22 [History Confirmed 08/27/22] (units unknown) (unknown) (unknown) (no date) (unknown) (unknown) may occur. Occ asional wrong-word or 'sound-alike' substitutions may have (units unknown) (unknown) (unknown) (no date) (unknown) (unknown) meds. [] (units unknown) (unknown) (unknown) (no date) (unknown) (unknown) methocarbamol 750 mg tablet 750 mg PO BEDTIME 08/27/22 [History Confirmed (units unknown) (unknown) (unknown) (no date) (unknown) (unknown) multifactorial including both axial and radicular components.? She is had (units unknown) (unknown) (unknown) (no date) (unknown) (unknown) multiple epidu ral steroid injections in the past at [facility] without (units unknown) (unknown) (unknown) (no date) (unknown) (unknown) multiple level s of the lumbar spine.? She is also interested in a referral to (units unknown) (unknown) (unknown) (no date) (unknown) (unknown) negative, Hype ralgesia - negative (units unknown) (unknown) (unknown) (no date) (unknown) (unknown) neurological d eficit with progressive or disabling symptoms. (units unknown) (unknown) (unknown) (no date) (unknown) (unknown) occurred due t o the inherent limitations of voice recognition software. Please (units unknown) (unknown) (unknown) (no date) (unknown) (unknown) of Spinal Cord Injur y) (units unknown) (unknown) (unknown) (no date) (unknown) (unknown) omeprazole 20 mg capsule,delayed release 20 mg PO DAILY 08/27/22 [History (units unknown) (unknown) (unknown) (no date) (unknown) (unknown) or immunosuppr essive therapy, previous or current cancer diagnosis, history of (units unknown) (unknown) (unknown) (no date) (unknown) (unknown) pain. [] (units unknown) (unknown) (unknown) (no date) (unknown) (unknown) pregabalin 50 mg capsule 50 mg PO DAILY 08/27/22 [History Confirmed 08/27/22] (units unknown) (unknown) (unknown) (no date) (unknown) (unknown) read the note carefully and recognize, using context, where these substitutions (units unknown) (unknown) (unknown) (no date) (unknown) (unknown) record, includ ing relevant provider notes, laboratory work, and imaging. (units unknown) (unknown) (unknown) (no date) (unknown) (unknown) scale and/or p ain interferes with ADLs. (units unknown) (unknown) (unknown) (no date) (unknown) (unknown) simvastatin 40 mg tablet 40 mg PO BEDTIME 08/27/22 [History Confirmed 08/27/22] (units unknown) (unknown) (unknown) (no date) (unknown) (unknown) software. Alth ough every effort is made to edit content, excelsior cutter errors (units unknown) (unknown) (unknown) (no date) (unknown) (unknown) strengthening the lower extremities with the goal of transferring on her own. (units unknown) (unknown) (unknown) (no date) (unknown) (unknown) therapeutic in jections and surgery. The risks, consequences, alternatives and (units unknown) (unknown) (unknown) (no date) (unknown) (unknown) therapy. ?A re ferral was provided for the patient. [] (units unknown) (unknown) (unknown) (no date) (unknown) (unknown) vertebral body compression fractures.? No suspicious bony lesions.? (units unknown) (unknown) (unknown) (no date) (unknown) (unknown) visit. (units unknown) (unknown) (unknown) (no date) (unknown) (unknown) well as treatm ent options including medications, physical therapy/exercise, (units unknown) (unknown) (unknown) (no date) (unknown) (unknown) with future tr eatment planning. [] (units unknown) (unknown) Result panel 8 (unknown) (no date) (unknown) (unknown) (no value) (units unknown) (unknown) (unknown) (no date) (unknown) (unknown) (0=absent, 1=s light response, 2=brisk/normal, 3=very brisk, 4=clonus) (units unknown) (unknown) (unknown) (no date) (unknown) (unknown) (segments are from the International Standards for Neurological Classification (units unknown) (unknown) (unknown) (no date) (unknown) (unknown) - Activity: Co ntinue activity as tolerated. [] (units unknown) (unknown) (unknown) (no date) (unknown) (unknown) - Chiropractor , acupuncture[] (units unknown) (unknown) (unknown) (no date) (unknown) (unknown) - Continues cl inician directed home exercise program including exercises learned (units unknown) (unknown) (unknown) (no date) (unknown) (unknown) - Education: C auda equina and associated symptoms, including motor weakness, (units unknown) (unknown) (unknown) (no date) (unknown) (unknown) - FADIR: Unabl e to assess (units unknown) (unknown) (unknown) (no date) (unknown) (unknown) - Follow-up: [] (uni ts unknown) (unknown) (unknown) (no date) (unknown) (unknown) - Hip ROM is: Unable to assess (units unknown) (unknown) (unknown) (no date) (unknown) (unknown) - I discussed risks, benefits and side effects. Additionally, patient was (units unknown) (unknown) (unknown) (no date) (unknown) (unknown) - Imaging: No new imaging indicated at this time. [] (units unknown) (unknown) (unknown) (no date) (unknown) (unknown) - Interventional/Surgica l procedures: None indicated at this time. [] (units unknown) (unknown) (unknown) (no date) (unknown) (unknown) - Lumbar facet loading: Unable to assess (units unknown) (unknown) (unknown) (no date) (unknown) (unknown) - Medications: No new prescription at this time. Patient will continue current (units unknown) (unknown) (unknown) (no date) (unknown) (unknown) - Medications: acetaminophen, NSAIDS, neuropathics, muscle relaxants [] (units unknown) (unknown) (unknown) (no date) (unknown) (unknown) - Physical The rapy: Completed 6 week course in the last 6 months OR Patient (units unknown) (unknown) (unknown) (no date) (unknown) (unknown) - Physical therapy/modalities/DME : Patient will likely benefit from physical (units unknown) (unknown) (unknown) (no date) (unknown) (unknown) - Prescription provided and uptitration instructions given if necessary. [] (units unknown) (unknown) (unknown) (no date) (unknown) (unknown) - Previous [] on [] provided []% relief of pain for []. During that time patient (units unknown) (unknown) (unknown) (no date) (unknown) (unknown) - Referrals: N one indicated at this time. [] (units unknown) (unknown) (unknown) (no date) (unknown) (unknown) - SIJ provocat ion testing: Unable to assess (units unknown) (unknown) (unknown) (no date) (unknown) (unknown) - Seated strai ght Leg Raise: Negative bilaterally (units unknown) (unknown) (unknown) (no date) (unknown) (unknown) 08/27/22] (units unknown) (unknown) (unknown) (no date) (unknown) (unknown) 10/07/22 (units unknown) (unknown) (unknown) (no date) (unknown) (unknown) 10/07/22] (units unknown) (unknown) (unknown) (no date) (unknown) (unknown) 1. Lower lumba r facet arthropathy. (units unknown) (unknown) (unknown) (no date) (unknown) (unknown) 14:04 (units unknown) (unknown) (unknown) (no date) (unknown) (unknown) 2. No abnormal motion on flexion and extension. (units unknown) (unknown) (unknown) (no date) (unknown) (unknown) 3. No pars defects.? (units unknown) (unknown) (unknown) (no date) (unknown) (unknown) 4 years (units unknown) (unknown) (unknown) (no date) (unknown) (unknown) [id number] (units unknown) (unknown) (unknown) (no date) (unknown) (unknown) 6 WEEK FOLLOW UP (un its unknown) (unknown) (unknown) (no date) (unknown) (unknown) ? Inspection - ? No gross appendicular or axial deformities (units unknown) (unknown) (unknown) (no date) (unknown) (unknown) ? Palpation -tenderness to palpation of the right lumbar paraspinous musculature (units unknown) (unknown) (unknown) (no date) (unknown) (unknown) ? ROM -unable to assess (units unknown) (unknown) (unknown) (no date) (unknown) (unknown) ? Special tests (uni ts unknown) (unknown) (unknown) (no date) (unknown) (unknown) ? (units unknown) (unknown) (unknown) (no date) (unknown) (unknown) ? Acetaminophen - current (units unknown) (unknown) (unknown) (no date) (unknown) (unknown) ? Antidepressants - current (units unknown) (unknown) (unknown) (no date) (unknown) (unknown) ? Antiepileptics - current (units unknown) (unknown) (unknown) (no date) (unknown) (unknown) ? Mu scle Relaxants - current (units unknown) (unknown) (unknown) (no date) (unknown) (unknown) ? NS AIDs - h/o heart disease (units unknown) (unknown) (unknown) (no date) (unknown) (unknown) ? Op ioids - [place] - constipation and no pain relief (units unknown) (unknown) (unknown) (no date) (unknown) (unknown) ? Steroids (units unknown) (unknown) (unknown) (no date) (unknown) (unknown) ? To picals - current (units unknown) (unknown) (unknown) (no date) (unknown) (unknown) Accompanied by : Photogeologist (units unknown) (unknown) (unknown) (no date) (unknown) (unknown) Activities aff ected: walking, standing (units unknown) (unknown) (unknown) (no date) (unknown) (unknown) Age/Sex: 81 / F Date of Service: (units unknown) (unknown) (unknown) (no date) (unknown) (unknown) Aggravating fa ctors include: movement (units unknown) (unknown) (unknown) (no date) (unknown) (unknown) All other syst ems reviewed and are unremarkable except as noted in HPI. (units unknown) (unknown) (unknown) (no date) (unknown) (unknown) Allergies (units unknown) (unknown) (unknown) (no date) (unknown) (unknown) Amitriptyline 50mg 1-3 tablets QHS PRN pain/insomnia (units unknown) (unknown) (unknown) (no date) (unknown) (unknown) SYBIL Ray [id number] (units unknown) (unknown) (unknown) (no date) (unknown) (unknown) Aortic regurgitation (units unknown) (unknown) (unknown) (no date) (unknown) (unknown) Approved by: Oscar Grissom M.D. on 08/27/2022 at 16:35 ? (units unknown) (unknown) (unknown) (no date) (unknown) (unknown) Assessment + Plan (u nits unknown) (unknown) (unknown) (no date) (unknown) (unknown) Assessment: (units unknown) (unknown) (unknown) (no date) (unknown) (unknown) Attending Dr: Jay Camarillo MD (units unknown) (unknown) (unknown) (no date) (unknown) (unknown) B/L L3-4 TFESI ([facility]) 05/09/20 ? (units unknown) (unknown) (unknown) (no date) (unknown) (unknown) BMI 46.5 (units unknown) (unknown) (unknown) (no date) (unknown) (unknown) BP 130/80 (units unknown) (unknown) (unknown) (no date) (unknown) (unknown) Babinski's Daren ngoing Downgoing (units unknown) (unknown) (unknown) (no date) (unknown) (unknown) Back pain, lumbosacr al (units unknown) (unknown) (unknown) (no date) (unknown) (unknown) Blood Pressure Location Lt brachial (units unknown) (unknown) (unknown) (no date) (unknown) (unknown) Bones:? 5 nonrib-bearing vertebrae are present.? There is normal bony (units unknown) (unknown) (unknown) (no date) (unknown) (unknown) Bowel and blad tyler: Has had urinary as well as bowel incontinence for the past 3 (units unknown) (unknown) (unknown) (no date) (unknown) (unknown) Breast cancer (units unknown) (unknown) (unknown) (no date) (unknown) (unknown) CHF (congestiv e heart failure) (units unknown) (unknown) (unknown) (no date) (unknown) (unknown) COMPARISON:? I [facility], MR, MR LUMBAR SPINE WO CON, 04/16/2021, 14:10. (units unknown) (unknown) (unknown) (no date) (unknown) (unknown) COPD (chronic obstructive pulmonary disease) (units unknown) (unknown) (unknown) (no date) (unknown) (unknown) Carotid artery disea se (units unknown) (unknown) (unknown) (no date) (unknown) (unknown) Carpal tunnel syndro me (units unknown) (unknown) (unknown) (no date) (unknown) (unknown) Chart review: (units unknown) (unknown) (unknown) (no date) (unknown) (unknown) Chief Complaint (uni ts unknown) (unknown) (unknown) (no date) (unknown) (unknown) Chief Complain t: Low back and leg pain (units unknown) (unknown) (unknown) (no date) (unknown) (unknown) Chronic arthritis (u nits unknown) (unknown) (unknown) (no date) (unknown) (unknown) Confirmed 08/27/22] (units unknown) (unknown) (unknown) (no date) (unknown) (unknown) Conservative management includes: (units unknown) (unknown) (unknown) (no date) (unknown) (unknown) Continue [facility] physical therapy. [] (units unknown) (unknown) (unknown) (no date) (unknown) (unknown) Continue home exercise program. [] (units unknown) (unknown) (unknown) (no date) (unknown) (unknown) Current VAS: 5/10 (u nits unknown) (unknown) (unknown) (no date) (unknown) (unknown) Current pain treatments include: (units unknown) (unknown) (unknown) (no date) (unknown) (unknown) Cymbalta 60mg QD (un its unknown) (unknown) (unknown) (no date) (unknown) (unknown) : 2 Acct:[id number] (units unknown) (unknown) (unknown) (no date) (unknown) (unknown) Denies recent trauma, fever or weight loss of unknown origin, immunocompromise (units unknown) (unknown) (unknown) (no date) (unknown) (unknown) Dept at . (units unknown) (unknown) (unknown) (no date) (unknown) (unknown) Details: (units unknown) (unknown) (unknown) (no date) (unknown) (unknown) Dictated by: Oscar Grissom M.D. on 08/27/2022 at 16:33 ? ? (units unknown) (unknown) (unknown) (no date) (unknown) (unknown) Documented By: Jay Camarillo MD 10/07/22 1423 (units unknown) (unknown) (unknown) (no date) (unknown) (unknown) Draft (units unknown) (unknown) (unknown) (no date) (unknown) (unknown) Dysphagia (units unknown) (unknown) (unknown) (no date) (unknown) (unknown) Elevated liver enzym es (units unknown) (unknown) (unknown) (no date) (unknown) (unknown) Exam Narrative (unit s unknown) (unknown) (unknown) (no date) (unknown) (unknown) Exam Narrative: (uni ts unknown) (unknown) (unknown) (no date) (unknown) (unknown) Exam (units unknown) (unknown) (unknown) (no date) (unknown) (unknown) FINDINGS:? (units unknown) (unknown) (unknown) (no date) (unknown) (unknown) Fibromyalgia (units unknown) (unknown) (unknown) (no date) (unknown) (unknown) Flexion/extens ion:? There is diminished range of motion, with preserved normal (units unknown) (unknown) (unknown) (no date) (unknown) (unknown) GERD (gastroes ophageal reflux disease) (units unknown) (unknown) (unknown) (no date) (unknown) (unknown) Gait/Station -nonambulatory (units unknown) (unknown) (unknown) (no date) (unknown) (unknown) General: Well-nourished, well-developed, female in no acute distress (units unknown) (unknown) (unknown) (no date) (unknown) (unknown) HPI (units unknown) (unknown) (unknown) (no date) (unknown) (unknown) Height 5 ft 7 in (un its unknown) (unknown) (unknown) (no date) (unknown) (unknown) History of appendectomy (units unknown) (unknown) (unknown) (no date) (unknown) (unknown) History of j luis ast surgery (units unknown) (unknown) (unknown) (no date) (unknown) (unknown) History of cat aract extraction (units unknown) (unknown) (unknown) (no date) (unknown) (unknown) History of tonsillectomy (units unknown) (unknown) (unknown) (no date) (unknown) (unknown) Hyperglycemia (units unknown) (unknown) (unknown) (no date) (unknown) (unknown) Hypertension (units unknown) (unknown) (unknown) (no date) (unknown) (unknown) IMPRESSION:? (units unknown) (unknown) (unknown) (no date) (unknown) (unknown) INDICATIONS:? LOW BACK PAIN (units unknown) (unknown) (unknown) (no date) (unknown) (unknown) Insomnia (units unknown) (unknown) (unknown) (no date) (unknown) (unknown) Intake Clinical Staf f (units unknown) (unknown) (unknown) (no date) (unknown) (unknown) Intake Note: (units unknown) (unknown) (unknown) (no date) (unknown) (unknown) Intake perform ed by: Majo Damon (units unknown) (unknown) (unknown) (no date) (unknown) (unknown) Intake (units unknown) (unknown) (unknown) (no date) (unknown) (unknown) Interval History: (u nits unknown) (unknown) (unknown) (no date) (unknown) (unknown) Intervention:?Date:?Outcome:?? ? (units unknown) (unknown) (unknown) (no date) (unknown) (unknown) Is patient in pain?: Yes Pain scale (1-10): 6 (units unknown) (unknown) (unknown) (no date) (unknown) (unknown) JUSTIFICATION OF MEDICAL NECESSITY (units unknown) (unknown) (unknown) (no date) (unknown) (unknown) L-spine/T-spin e/C-spin e MRI ordered to better delineate the anatomy and help (units unknown) (unknown) (unknown) (no date) (unknown) (unknown) L2 Hip Flexion 5/5 5/5? (units unknown) (unknown) (unknown) (no date) (unknown) (unknown) L2-3 [facility]CIAL ([facility]) 11/28/20 ? (units unknown) (unknown) (unknown) (no date) (unknown) (unknown) L2-3 [facility] ([facility]) 01/31/21 ? (units unknown) (unknown) (unknown) (no date) (unknown) (unknown) L3 Knee Extens ion 5/5 5/5 (units unknown) (unknown) (unknown) (no date) (unknown) (unknown) L3-4 MARCIAL ([facility]) 08/13/20 ?D ? (units unknown) (unknown) (unknown) (no date) (unknown) (unknown) L3-4 Patella 2+ 2 (u nits unknown) (unknown) (unknown) (no date) (unknown) (unknown) L4 Ankle Dorsi flexion 12/05 12/05 (units unknown) (unknown) (unknown) (no date) (unknown) (unknown) L4-5 [facility]CIAL ([facility])? 01/07/22 most helpful so far (slight (units unknown) (unknown) (unknown) (no date) (unknown) (unknown) L5 Long Toe Ex tension 12/05 12/05 (units unknown) (unknown) (unknown) (no date) (unknown) (unknown) Leg pain, right (uni ts unknown) (unknown) (unknown) (no date) (unknown) (unknown) Loc: PAIN (units unknown) (unknown) (unknown) (no date) (unknown) (unknown) Low back pain (units unknown) (unknown) (unknown) (no date) (unknown) (unknown) Lumbar radiculopathy (units unknown) (unknown) (unknown) (no date) (unknown) (unknown) Lymphedema (units unknown) (unknown) (unknown) (no date) (unknown) (unknown) Lyrica 50mg TID (uni ts unknown) (unknown) (unknown) (no date) (unknown) (unknown) MSK: System re viewed and no additional complaints, except as documented. (units unknown) (unknown) (unknown) (no date) (unknown) (unknown) Medical Histor y (Updated 08/27/22 @ 14:12 by Jay Camarillo MD) (units unknown) (unknown) (unknown) (no date) (unknown) (unknown) Medications (units unknown) (unknown) (unknown) (no date) (unknown) (unknown) Medications: (units unknown) (unknown) (unknown) (no date) (unknown) (unknown) Morbid obesity (unit s unknown) (unknown) (unknown) (no date) (unknown) (unknown) Motor (units unknown) (unknown) (unknown) (no date) (unknown) (unknown) Musculoskeletal: (un its unknown) (unknown) (unknown) (no date) (unknown) (unknown) Neuro: System reviewed and no additional complaints, except as documented. (units unknown) (unknown) (unknown) (no date) (unknown) (unknown) Neurologic: (units unknown) (unknown) (unknown) (no date) (unknown) (unknown) No Known Drug Allergies Allergy (Verified 10/07/22 10:23) (units unknown) (unknown) (unknown) (no date) (unknown) (unknown) Not indicated at this time. [] (units unknown) (unknown) (unknown) (no date) (unknown) (unknown) Numbness/Tingl ing: all 4 extremity tingling due to neuropathy (units unknown) (unknown) (unknown) (no date) (unknown) (unknown) Objective Data (unit s unknown) (unknown) (unknown) (no date) (unknown) (unknown) Objective Data: (uni ts unknown) (unknown) (unknown) (no date) (unknown) (unknown) Oblique films: ? No pars defects. (units unknown) (unknown) (unknown) (no date) (unknown) (unknown) Onset/Context of param n: (units unknown) (unknown) (unknown) (no date) (unknown) (unknown) Onset: Insidious (un its unknown) (unknown) (unknown) (no date) (unknown) (unknown) Other: Denies (units unknown) (unknown) (unknown) (no date) (unknown) (unknown) Oxygen Deliver y Method nasal canula (units unknown) (unknown) (unknown) (no date) (unknown) (unknown) PFSH (units unknown) (unknown) (unknown) (no date) (unknown) (unknown) PROCEDURE:? XR LUMBAR SPINE MIN 4V (units unknown) (unknown) (unknown) (no date) (unknown) (unknown) PT: Had 4 sess ions of home health with Starla (units unknown) (unknown) (unknown) (no date) (unknown) (unknown) Pain Scale (units unknown) (unknown) (unknown) (no date) (unknown) (unknown) Pain Visit (units unknown) (unknown) (unknown) (no date) (unknown) (unknown) Pain location/Radiation: Middle low back, radiating to the right low back, right (units unknown) (unknown) (unknown) (no date) (unknown) (unknown) Pain ratin /10 today, 10/10 at worst (units unknown) (unknown) (unknown) (no date) (unknown) (unknown) Past medical, surgical, social, and family history is unchanged from prior (units unknown) (unknown) (unknown) (no date) (unknown) (unknown) Patient was conor miller seen here on 08/27/2022. Starla denied to see patient given her (units unknown) (unknown) (unknown) (no date) (unknown) (unknown) Patient will r eturn for []. Risks and benefits were discussed. (units unknown) (unknown) (unknown) (no date) (unknown) (unknown) Patient's pain has been present for >6 weeks and is an average of >6/10 on 0-10 (units unknown) (unknown) (unknown) (no date) (unknown) (unknown) Patient: Dulce Butt MR#: [id number] (units unknown) (unknown) (unknown) (no date) (unknown) (unknown) Peripheral neuropath y (units unknown) (unknown) (unknown) (no date) (unknown) (unknown) Plan (units unknown) (unknown) (unknown) (no date) (unknown) (unknown) Plan/Recommendations : (units unknown) (unknown) (unknown) (no date) (unknown) (unknown) Position Sitting (un its unknown) (unknown) (unknown) (no date) (unknown) (unknown) Prescriptions Written: [] (units unknown) (unknown) (unknown) (no date) (unknown) (unknown) Previous Visit Assessment: 'Dulce is an 81-year-old female presenting for (units unknown) (unknown) (unknown) (no date) (unknown) (unknown) Previous pain treatments included: (units unknown) (unknown) (unknown) (no date) (unknown) (unknown) Psych: Appropr iate affect, answers questions appropriately (units unknown) (unknown) (unknown) (no date) (unknown) (unknown) Pulse 75 (units unknown) (unknown) (unknown) (no date) (unknown) (unknown) Pulse Oximetry (%) 9 3 (units unknown) (unknown) (unknown) (no date) (unknown) (unknown) Pulse Source Monitor (units unknown) (unknown) (unknown) (no date) (unknown) (unknown) Quality and ti pj of pain: Sharp in back, sharp in leg; constant (units unknown) (unknown) (unknown) (no date) (unknown) (unknown) ROS Narrative (units unknown) (unknown) (unknown) (no date) (unknown) (unknown) ROS Narrative: (unit s unknown) (unknown) (unknown) (no date) (unknown) (unknown) ROS (units unknown) (unknown) (unknown) (no date) (unknown) (unknown) Reason For Visit (un its unknown) (unknown) (unknown) (no date) (unknown) (unknown) Red flag symptoms: ( units unknown) (unknown) (unknown) (no date) (unknown) (unknown) Reflex Right Left (u nits unknown) (unknown) (unknown) (no date) (unknown) (unknown) Reflexes: (units unknown) (unknown) (unknown) (no date) (unknown) (unknown) Relieving fact ors include: recliner, medications (units unknown) (unknown) (unknown) (no date) (unknown) (unknown) Respiratory: Non-labored breathing pattern on RA. No respiratory distress (units unknown) (unknown) (unknown) (no date) (unknown) (unknown) Rheum appointm ent for 12/10/22 (units unknown) (unknown) (unknown) (no date) (unknown) (unknown) Rheumatology g john her history of arthritis of multiple joints.' (units unknown) (unknown) (unknown) (no date) (unknown) (unknown) Robaxin 750mg QID (u nits unknown) (unknown) (unknown) (no date) (unknown) (unknown) S1 Ankle Plantarflexion 12/05 12/05 (units unknown) (unknown) (unknown) (no date) (unknown) (unknown) SVT (supravent ricular tachycardia) (units unknown) (unknown) (unknown) (no date) (unknown) (unknown) [facility] anesthe ban: denies (units unknown) (unknown) (unknown) (no date) (unknown) (unknown) Segment Action Right Left (units unknown) (unknown) (unknown) (no date) (unknown) (unknown) Segment Reflex Right Left (units unknown) (unknown) (unknown) (no date) (unknown) (unknown) Sensory -? Int act to light touch at bilateral lower extremities. Allodynia (units unknown) (unknown) (unknown) (no date) (unknown) (unknown) She continues have LBP and right leg pain. This has also improved since her last (units unknown) (unknown) (unknown) (no date) (unknown) (unknown) She feels she has made improvements in strength. (units unknown) (unknown) (unknown) (no date) (unknown) (unknown) [facility] [employer] for the last 2 weeks. She has been working on (units unknown) (unknown) (unknown) (no date) (unknown) (unknown) Signed By: (units unknown) (unknown) (unknown) (no date) (unknown) (unknown) Skin: No appre ciable rashes or skin breakdown (units unknown) (unknown) (unknown) (no date) (unknown) (unknown) Smoking Status : Former smoker (units unknown) (unknown) (unknown) (no date) (unknown) (unknown) Soft tissues:? Overlying bowel gas pattern is normal.? No suspicious soft tissue (units unknown) (unknown) (unknown) (no date) (unknown) (unknown) Surgery: Denies (uni ts unknown) (unknown) (unknown) (no date) (unknown) (unknown) Surgical Histo ry (units unknown) (unknown) (unknown) (no date) (unknown) (unknown) TECHNIQUE:? 6 views of the lumbar spine acquired, including flexion and (units unknown) (unknown) (unknown) (no date) (unknown) (unknown) Temp 97.2 F L (units unknown) (unknown) (unknown) (no date) (unknown) (unknown) Temp Source Te mporal Artery Scan (units unknown) (unknown) (unknown) (no date) (unknown) (unknown) [facility] (units unknown) (unknown) (unknown) (no date) (unknown) (unknown) This note may have been all or partially generated using voice recognition (units unknown) (unknown) (unknown) (no date) (unknown) (unknown) Tobacco + Subs tance Use (units unknown) (unknown) (unknown) (no date) (unknown) (unknown) Tobacco Status (unit s unknown) (unknown) (unknown) (no date) (unknown) (unknown) Today I have r eviewed available medical information in the patient's medical (units unknown) (unknown) (unknown) (no date) (unknown) (unknown) Upper Motor Ne uron Signs: (units unknown) (unknown) (unknown) (no date) (unknown) (unknown) Urinary incontinence (units unknown) (unknown) (unknown) (no date) (unknown) (unknown) Visit Reasons: 6WK FOLLOW UP (units unknown) (unknown) (unknown) (no date) (unknown) (unknown) Vitals (units unknown) (unknown) (unknown) (no date) (unknown) (unknown) Voltaren gel - on knee and anterior leg (units unknown) (unknown) (unknown) (no date) (unknown) (unknown) [place] 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 (units unknown) (unknown) (unknown) (no date) (unknown) (unknown) We reviewed et iology, predisposing factor(s), natural course, imaging results as (units unknown) (unknown) (unknown) (no date) (unknown) (unknown) Weakness: b/l leg weakness (units unknown) (unknown) (unknown) (no date) (unknown) (unknown) Weight 297 lb (units unknown) (unknown) (unknown) (no date) (unknown) (unknown) able to partic ipate in ADLs, had improved sleep, improved mobility, etc. (units unknown) (unknown) (unknown) (no date) (unknown) (unknown) alignment. (units unknown) (unknown) (unknown) (no date) (unknown) (unknown) alignment.? No (unit s unknown) (unknown) (unknown) (no date) (unknown) (unknown) amitriptyline 10 mg tablet 10 mg PO BEDTIME 10/07/22 [History Confirmed (units unknown) (unknown) (unknown) (no date) (unknown) (unknown) amitriptyline 50 mg tablet 50 mg PO BEDTIME 08/27/22 [History Confirmed (units unknown) (unknown) (unknown) (no date) (unknown) (unknown) and oblique views. ( units unknown) (unknown) (unknown) (no date) (unknown) (unknown) and strengthen ing of the lower extremities her goal is to be able to transfer (units unknown) (unknown) (unknown) (no date) (unknown) (unknown) as it is quite expensive for her to travel given her immobility.? She may also (units unknown) (unknown) (unknown) (no date) (unknown) (unknown) atorvastatin 2 0 mg tablet 20 mg PO BEDTIME 08/27/22 [History Confirmed 08/27/22] (units unknown) (unknown) (unknown) (no date) (unknown) (unknown) be a candidate for mild procedure given ligamentum flavum hypertrophy of (units unknown) (unknown) (unknown) (no date) (unknown) (unknown) benefit.? Not interested in interventions today there focus on physical therapy (units unknown) (unknown) (unknown) (no date) (unknown) (unknown) benefits of [place] treatment options were discussed with the patient in great (units unknown) (unknown) (unknown) (no date) (unknown) (unknown) bowel/bladder dysfunction, and perineal numbness were discussed. The patient was (units unknown) (unknown) (unknown) (no date) (unknown) (unknown) buttock, anter ior thigh, anterior lower leg and dorsum of foot (units unknown) (unknown) (unknown) (no date) (unknown) (unknown) calcifications.? (un its unknown) (unknown) (unknown) (no date) (unknown) (unknown) cannot tolerat e physical therapy at the current time due to the intensity of the (units unknown) (unknown) (unknown) (no date) (unknown) (unknown) carvedilol 12. 5 mg tablet 12.5 mg PO ONCE 08/27/22 [History Confirmed 08/27/22] (units unknown) (unknown) (unknown) (no date) (unknown) (unknown) decrease of le g and back pain) (units unknown) (unknown) (unknown) (no date) (unknown) (unknown) detail. (units unknown) (unknown) (unknown) (no date) (unknown) (unknown) duloxetine 60 mg capsule,delayed release 60 mg PO DAILY 08/27/22 [History (units unknown) (unknown) (unknown) (no date) (unknown) (unknown) extension views (uni ts unknown) (unknown) (unknown) (no date) (unknown) (unknown) from joi serrano with less assistance.? We will arrange for [place] home health care (units unknown) (unknown) (unknown) (no date) (unknown) (unknown) furosemide 40 mg tablet 40 mg PO DAILY 08/27/22 [History Confirmed 08/27/22] (units unknown) (unknown) (unknown) (no date) (unknown) (unknown) further evalua tion of low back and right leg pain.? Pain is likely (units unknown) (unknown) (unknown) (no date) (unknown) (unknown) have occurred. If there are any questions, please contact the Medical Records (units unknown) (unknown) (unknown) (no date) (unknown) (unknown) hydrocodone 7. 5 mg-acetaminophen 325 mg tablet 1 tab PO 08/27/22 [History (units unknown) (unknown) (unknown) (no date) (unknown) (unknown) in PT. [] (units unknown) (unknown) (unknown) (no date) (unknown) (unknown) instructed to report to the Emergency department, if these symptoms occur. (units unknown) (unknown) (unknown) (no date) (unknown) (unknown) instructed to stop if any side effects. [] (units unknown) (unknown) (unknown) (no date) (unknown) (unknown) intravenous dr ug use, sustained glucocorticoid use, osteoporosis, or a focal (units unknown) (unknown) (unknown) (no date) (unknown) (unknown) lack of compli ance and participation with care. She started home PT with (units unknown) (unknown) (unknown) (no date) (unknown) (unknown) losartan 100 m g tablet 100 mg PO DAILY 08/27/22 [History Confirmed 08/27/22] (units unknown) (unknown) (unknown) (no date) (unknown) (unknown) losartan 50 mg tablet 50 mg PO DAILY 08/27/22 [History Confirmed 08/27/22] (units unknown) (unknown) (unknown) (no date) (unknown) (unknown) may occur. Occ asional wrong-word or 'sound-alike' substitutions may have (units unknown) (unknown) (unknown) (no date) (unknown) (unknown) meds. [] (units unknown) (unknown) (unknown) (no date) (unknown) (unknown) methocarbamol 750 mg tablet 750 mg PO BEDTIME 08/27/22 [History Confirmed (units unknown) (unknown) (unknown) (no date) (unknown) (unknown) multifactorial including both axial and radicular components.? She is had (units unknown) (unknown) (unknown) (no date) (unknown) (unknown) multiple epidu ral steroid injections in the past at [facility] without (units unknown) (unknown) (unknown) (no date) (unknown) (unknown) multiple level s of the lumbar spine.? She is also interested in a referral to (units unknown) (unknown) (unknown) (no date) (unknown) (unknown) negative, Hype ralgesia - negative (units unknown) (unknown) (unknown) (no date) (unknown) (unknown) neurological d eficit with progressive or disabling symptoms. (units unknown) (unknown) (unknown) (no date) (unknown) (unknown) occurred due t o the inherent limitations of voice recognition software. Please (units unknown) (unknown) (unknown) (no date) (unknown) (unknown) of Spinal Cord Injur y) (units unknown) (unknown) (unknown) (no date) (unknown) (unknown) omeprazole 20 mg capsule,delayed release 20 mg PO DAILY 08/27/22 [History (units unknown) (unknown) (unknown) (no date) (unknown) (unknown) or immunosuppr essive therapy, previous or current cancer diagnosis, history of (units unknown) (unknown) (unknown) (no date) (unknown) (unknown) pain. [] (units unknown) (unknown) (unknown) (no date) (unknown) (unknown) pregabalin 50 mg capsule 50 mg PO DAILY 08/27/22 [History Confirmed 08/27/22] (units unknown) (unknown) (unknown) (no date) (unknown) (unknown) read the note carefully and recognize, using context, where these substitutions (units unknown) (unknown) (unknown) (no date) (unknown) (unknown) record, includ ing relevant provider notes, laboratory work, and imaging. (units unknown) (unknown) (unknown) (no date) (unknown) (unknown) scale and/or p ain interferes with ADLs. (units unknown) (unknown) (unknown) (no date) (unknown) (unknown) simvastatin 40 mg tablet 40 mg PO BEDTIME 08/27/22 [History Confirmed 08/27/22] (units unknown) (unknown) (unknown) (no date) (unknown) (unknown) software. Alth ough every effort is made to edit content, excelsior cutter errors (units unknown) (unknown) (unknown) (no date) (unknown) (unknown) strengthening the lower extremities with the goal of transferring on her own. (units unknown) (unknown) (unknown) (no date) (unknown) (unknown) therapeutic in jections and surgery. The risks, consequences, alternatives and (units unknown) (unknown) (unknown) (no date) (unknown) (unknown) therapy. ?A re ferral was provided for the patient. [] (units unknown) (unknown) (unknown) (no date) (unknown) (unknown) vertebral body compression fractures.? No suspicious bony lesions.? (units unknown) (unknown) (unknown) (no date) (unknown) (unknown) visit. (units unknown) (unknown) (unknown) (no date) (unknown) (unknown) well as treatm ent options including medications, physical therapy/exercise, (units unknown) (unknown) (unknown) (no date) (unknown) (unknown) with future tr eatment planning. [] (units unknown) (unknown) Result panel 9 (unknown) (no date) (unknown) (unknown) (no value) (units unknown) (unknown) (unknown) (no date) (unknown) (unknown) (1) Chronic arthriti s: (units unknown) (unknown) (unknown) (no date) (unknown) (unknown) (2) Low back pain: ( units unknown) (unknown) (unknown) (no date) (unknown) (unknown) (3) Lumbar radiculopathy: (units unknown) (unknown) (unknown) (no date) (unknown) (unknown) - Activity: Co ntinue activity as tolerated. (units unknown) (unknown) (unknown) (no date) (unknown) (unknown) - Education: C auda equina and associated symptoms, including motor weakness, (units unknown) (unknown) (unknown) (no date) (unknown) (unknown) - Follow-up: 8 weeks (units unknown) (unknown) (unknown) (no date) (unknown) (unknown) - Imaging: No new imaging indicated at this time. (units unknown) (unknown) (unknown) (no date) (unknown) (unknown) - Interventional/Surgica l procedures: None indicated at this time. (units unknown) (unknown) (unknown) (no date) (unknown) (unknown) - Medications: No new prescription at this time. Consider uptitration of lyrica (units unknown) (unknown) (unknown) (no date) (unknown) (unknown) - Physical therapy/modalities/DME : Continue current physical therapy. (units unknown) (unknown) (unknown) (no date) (unknown) (unknown) - Referrals: N one indicated at this time. (units unknown) (unknown) (unknown) (no date) (unknown) (unknown) 08/27/22] (units unknown) (unknown) (unknown) (no date) (unknown) (unknown) 10/07/22 1430 (units unknown) (unknown) (unknown) (no date) (unknown) (unknown) 10/07/22 (units unknown) (unknown) (unknown) (no date) (unknown) (unknown) 10/07/22] (units unknown) (unknown) (unknown) (no date) (unknown) (unknown) 1. Lower lumba r facet arthropathy. (units unknown) (unknown) (unknown) (no date) (unknown) (unknown) 14:04 (units unknown) (unknown) (unknown) (no date) (unknown) (unknown) 2. No abnormal motion on flexion and extension. (units unknown) (unknown) (unknown) (no date) (unknown) (unknown) 3. No pars defects.? (units unknown) (unknown) (unknown) (no date) (unknown) (unknown) 4 years (units unknown) (unknown) (unknown) (no date) (unknown) (unknown) 5834 (units unknown) (unknown) (unknown) (no date) (unknown) (unknown) 6 WEEK FOLLOW UP (un its unknown) (unknown) (unknown) (no date) (unknown) (unknown) ? Inspection - ? No gross appendicular or axial deformities (units unknown) (unknown) (unknown) (no date) (unknown) (unknown) ? ROM -unable to assess (units unknown) (unknown) (unknown) (no date) (unknown) (unknown) ? (units unknown) (unknown) (unknown) (no date) (unknown) (unknown) ? Acetaminophen - current (units unknown) (unknown) (unknown) (no date) (unknown) (unknown) ? Antidepressants - current (units unknown) (unknown) (unknown) (no date) (unknown) (unknown) ? Antiepileptics - current (units unknown) (unknown) (unknown) (no date) (unknown) (unknown) ? Mu scle Relaxants - current (units unknown) (unknown) (unknown) (no date) (unknown) (unknown) ? NS AIDs - h/o heart disease (units unknown) (unknown) (unknown) (no date) (unknown) (unknown) ? Op ioids - [place] - constipation and no pain relief (units unknown) (unknown) (unknown) (no date) (unknown) (unknown) ? Steroids (units unknown) (unknown) (unknown) (no date) (unknown) (unknown) ? To picals - current (units unknown) (unknown) (unknown) (no date) (unknown) (unknown) Accompanied by : Photogeologist (units unknown) (unknown) (unknown) (no date) (unknown) (unknown) Activities aff ected: walking, standing (units unknown) (unknown) (unknown) (no date) (unknown) (unknown) Age/Sex: 81 / F Date of Service: (units unknown) (unknown) (unknown) (no date) (unknown) (unknown) Aggravating fa ctors include: movement (units unknown) (unknown) (unknown) (no date) (unknown) (unknown) All other syst ems reviewed and are unremarkable except as noted in HPI. (units unknown) (unknown) (unknown) (no date) (unknown) (unknown) Allergies (units unknown) (unknown) (unknown) (no date) (unknown) (unknown) Amitriptyline 50mg 1-3 tablets QHS PRN pain/insomnia (units unknown) (unknown) (unknown) (no date) (unknown) (unknown) [place], [place]BIL [id number] (units unknown) (unknown) (unknown) (no date) (unknown) (unknown) Aortic regurgitation (units unknown) (unknown) (unknown) (no date) (unknown) (unknown) Approved by: Oscar Grissom M.D. on 08/27/2022 at 16:35 ? (units unknown) (unknown) (unknown) (no date) (unknown) (unknown) Assessment + Plan (u nits unknown) (unknown) (unknown) (no date) (unknown) (unknown) Assessment: (units unknown) (unknown) (unknown) (no date) (unknown) (unknown) At the end of her visit, she asked if I knew a physician that would drain fluid (units unknown) (unknown) (unknown) (no date) (unknown) (unknown) Attending Dr: Jay Camarillo MD (units unknown) (unknown) (unknown) (no date) (unknown) (unknown) B/L L3-4 TFESI ([facility] [place]) 05/09/20 ? (units unknown) (unknown) (unknown) (no date) (unknown) (unknown) BMI 46.5 (units unknown) (unknown) (unknown) (no date) (unknown) (unknown) BP 130/80 (units unknown) (unknown) (unknown) (no date) (unknown) (unknown) Back pain, lumbosacr al (units unknown) (unknown) (unknown) (no date) (unknown) (unknown) Blood Pressure Location Lt brachial (units unknown) (unknown) (unknown) (no date) (unknown) (unknown) Bones:? 5 nonrib-bearing vertebrae are present.? There is normal bony (units unknown) (unknown) (unknown) (no date) (unknown) (unknown) Bowel and blad tyler: Has had urinary as well as bowel incontinence for the past 3 (units unknown) (unknown) (unknown) (no date) (unknown) (unknown) Breast cancer (units unknown) (unknown) (unknown) (no date) (unknown) (unknown) CHF (congestiv e heart failure) (units unknown) (unknown) (unknown) (no date) (unknown) (unknown) COMPARISON:? I [facility], MR, MR LUMBAR SPINE WO CON, 04/16/2021, 14:10. (units unknown) (unknown) (unknown) (no date) (unknown) (unknown) COPD (chronic obstructive pulmonary disease) (units unknown) (unknown) (unknown) (no date) (unknown) (unknown) Carotid artery disea se (units unknown) (unknown) (unknown) (no date) (unknown) (unknown) Carpal tunnel syndro me (units unknown) (unknown) (unknown) (no date) (unknown) (unknown) Chart review: (units unknown) (unknown) (unknown) (no date) (unknown) (unknown) Chief Complaint (uni ts unknown) (unknown) (unknown) (no date) (unknown) (unknown) Chief Complain t: Low back and leg pain (units unknown) (unknown) (unknown) (no date) (unknown) (unknown) Chronic arthritis (u nits unknown) (unknown) (unknown) (no date) (unknown) (unknown) Chronicity: ch ronic Back pain laterality: bilateral Sciatica presence: (units unknown) (unknown) (unknown) (no date) (unknown) (unknown) Confirmed 08/27/22] (units unknown) (unknown) (unknown) (no date) (unknown) (unknown) Current VAS: 10 (u nits unknown) (unknown) (unknown) (no date) (unknown) (unknown) Current pain treatments include: (units unknown) (unknown) (unknown) (no date) (unknown) (unknown) Cymbalta 60mg QD (un its unknown) (unknown) (unknown) (no date) (unknown) (unknown) : 2 Acct:[id number] (units unknown) (unknown) (unknown) (no date) (unknown) (unknown) Denies recent trauma, fever or weight loss of unknown origin, immunocompromise (units unknown) (unknown) (unknown) (no date) (unknown) (unknown) Dept at . (units unknown) (unknown) (unknown) (no date) (unknown) (unknown) Details: (units unknown) (unknown) (unknown) (no date) (unknown) (unknown) Dictated by: Oscar Grissom M.D. on 08/27/2022 at 16:33 ? ? (units unknown) (unknown) (unknown) (no date) (unknown) (unknown) Documented By: Jay Camarillo MD 10/07/22 1423 (units unknown) (unknown) (unknown) (no date) (unknown) (unknown) Dysphagia (units unknown) (unknown) (unknown) (no date) (unknown) (unknown) Elevated liver enzym es (units unknown) (unknown) (unknown) (no date) (unknown) (unknown) Exam Narrative (unit s unknown) (unknown) (unknown) (no date) (unknown) (unknown) Exam Narrative: (uni ts unknown) (unknown) (unknown) (no date) (unknown) (unknown) Exam (units unknown) (unknown) (unknown) (no date) (unknown) (unknown) FINDINGS:? (units unknown) (unknown) (unknown) (no date) (unknown) (unknown) Fibromyalgia (units unknown) (unknown) (unknown) (no date) (unknown) (unknown) Flexion/extens ion:? There is diminished range of motion, with preserved normal (units unknown) (unknown) (unknown) (no date) (unknown) (unknown) GERD (gastroes ophageal reflux disease) (units unknown) (unknown) (unknown) (no date) (unknown) (unknown) Gait/Station -nonambulatory (units unknown) (unknown) (unknown) (no date) (unknown) (unknown) General: Well-nourished, well-developed, female in no acute distress (units unknown) (unknown) (unknown) (no date) (unknown) (unknown) HPI (units unknown) (unknown) (unknown) (no date) (unknown) (unknown) Height 5 ft 7 in (un its unknown) (unknown) (unknown) (no date) (unknown) (unknown) History of appendectomy (units unknown) (unknown) (unknown) (no date) (unknown) (unknown) History of j luis ast surgery (units unknown) (unknown) (unknown) (no date) (unknown) (unknown) History of cat aract extraction (units unknown) (unknown) (unknown) (no date) (unknown) (unknown) History of tonsillectomy (units unknown) (unknown) (unknown) (no date) (unknown) (unknown) Hyperglycemia (units unknown) (unknown) (unknown) (no date) (unknown) (unknown) Hypertension (units unknown) (unknown) (unknown) (no date) (unknown) (unknown) IMPRESSION:? (units unknown) (unknown) (unknown) (no date) (unknown) (unknown) INDICATIONS:? LOW BACK PAIN (units unknown) (unknown) (unknown) (no date) (unknown) (unknown) Insomnia (units unknown) (unknown) (unknown) (no date) (unknown) (unknown) Intake Clinical Staf f (units unknown) (unknown) (unknown) (no date) (unknown) (unknown) Intake Note: (units unknown) (unknown) (unknown) (no date) (unknown) (unknown) Intake perform ed by: Majo Damon (units unknown) (unknown) (unknown) (no date) (unknown) (unknown) Intake (units unknown) (unknown) (unknown) (no date) (unknown) (unknown) Interval History: (u nits unknown) (unknown) (unknown) (no date) (unknown) (unknown) Intervention:?Date:?Outcome:?? ? (units unknown) (unknown) (unknown) (no date) (unknown) (unknown) Is patient in pain?: Yes Pain scale (1-10): 6 (units unknown) (unknown) (unknown) (no date) (unknown) (unknown) L2-3 [facility]CIAL ([facility]) 11/28/20 ? (units unknown) (unknown) (unknown) (no date) (unknown) (unknown) L2-3 MARCIAL ([place]) 01/31/21 ? (units unknown) (unknown) (unknown) (no date) (unknown) (unknown) L3-4 MARCIAL ([place]) 08/13/20 ?D ? (units unknown) (unknown) (unknown) (no date) (unknown) (unknown) L4-5 MARCIAL ([place])? 01/07/22 most helpful so far (slight (units unknown) (unknown) (unknown) (no date) (unknown) (unknown) Leg pain, right (uni ts unknown) (unknown) (unknown) (no date) (unknown) (unknown) Dulce is an 81 yo female presenting for f/u of low back and leg pain. She now (units unknown) (unknown) (unknown) (no date) (unknown) (unknown) Loc: PAIN (units unknown) (unknown) (unknown) (no date) (unknown) (unknown) Low back pain (units unknown) (unknown) (unknown) (no date) (unknown) (unknown) Lumbar radiculopathy (units unknown) (unknown) (unknown) (no date) (unknown) (unknown) Lymphedema (units unknown) (unknown) (unknown) (no date) (unknown) (unknown) Lyrica 50mg TID (uni ts unknown) (unknown) (unknown) (no date) (unknown) (unknown) MSK: System re viewed and no additional complaints, except as documented. (units unknown) (unknown) (unknown) (no date) (unknown) (unknown) Medical Histor y (Updated 08/27/22 @ 14:12 by Jay Camarillo MD) (units unknown) (unknown) (unknown) (no date) (unknown) (unknown) Medications (units unknown) (unknown) (unknown) (no date) (unknown) (unknown) Medications: (units unknown) (unknown) (unknown) (no date) (unknown) (unknown) Morbid obesity (unit s unknown) (unknown) (unknown) (no date) (unknown) (unknown) Musculoskeletal: (un its unknown) (unknown) (unknown) (no date) (unknown) (unknown) Neuro: System reviewed and no additional complaints, except as documented. (units unknown) (unknown) (unknown) (no date) (unknown) (unknown) No Known Drug Allergies Allergy (Verified 10/07/22 10:23) (units unknown) (unknown) (unknown) (no date) (unknown) (unknown) Numbness/Tingl ing: all 4 extremity tingling due to neuropathy (units unknown) (unknown) (unknown) (no date) (unknown) (unknown) Objective Data (unit s unknown) (unknown) (unknown) (no date) (unknown) (unknown) Objective Data: (uni ts unknown) (unknown) (unknown) (no date) (unknown) (unknown) Oblique films: ? No pars defects. (units unknown) (unknown) (unknown) (no date) (unknown) (unknown) Onset/Context of param n: (units unknown) (unknown) (unknown) (no date) (unknown) (unknown) Onset: Insidious (un its unknown) (unknown) (unknown) (no date) (unknown) (unknown) Other: Denies (units unknown) (unknown) (unknown) (no date) (unknown) (unknown) Oxygen Deliver y Method nasal canula (units unknown) (unknown) (unknown) (no date) (unknown) (unknown) PFSH (units unknown) (unknown) (unknown) (no date) (unknown) (unknown) PROCEDURE:? XR LUMBAR SPINE MIN 4V (units unknown) (unknown) (unknown) (no date) (unknown) (unknown) PT: Had 4 sess ions of home health with Starla (units unknown) (unknown) (unknown) (no date) (unknown) (unknown) Pain Scale (units unknown) (unknown) (unknown) (no date) (unknown) (unknown) Pain Visit (units unknown) (unknown) (unknown) (no date) (unknown) (unknown) Pain location/Radiation: Middle low back, radiating to the right low back, right (units unknown) (unknown) (unknown) (no date) (unknown) (unknown) Pain ratin /10 today, 10/10 at worst (units unknown) (unknown) (unknown) (no date) (unknown) (unknown) Past medical, surgical, social, and family history is unchanged from prior (units unknown) (unknown) (unknown) (no date) (unknown) (unknown) Patient was conor miller seen here on 08/27/2022. Starla denied to see patient given her (units unknown) (unknown) (unknown) (no date) (unknown) (unknown) Patient: Dulce Butt MR#: [id number] (units unknown) (unknown) (unknown) (no date) (unknown) (unknown) Peripheral neuropath y (units unknown) (unknown) (unknown) (no date) (unknown) (unknown) Plan (units unknown) (unknown) (unknown) (no date) (unknown) (unknown) Plan/Recommendations : (units unknown) (unknown) (unknown) (no date) (unknown) (unknown) Position Sitting (un its unknown) (unknown) (unknown) (no date) (unknown) (unknown) Previous Visit Assessment: 'Dulce is an 81-year-old female presenting for (units unknown) (unknown) (unknown) (no date) (unknown) (unknown) Previous pain treatments included: (units unknown) (unknown) (unknown) (no date) (unknown) (unknown) Psych: Appropr iate affect, answers questions appropriately (units unknown) (unknown) (unknown) (no date) (unknown) (unknown) Pulse 75 (units unknown) (unknown) (unknown) (no date) (unknown) (unknown) Pulse Oximetry (%) 9 3 (units unknown) (unknown) (unknown) (no date) (unknown) (unknown) Pulse Source Monitor (units unknown) (unknown) (unknown) (no date) (unknown) (unknown) Qualifiers: (units unknown) (unknown) (unknown) (no date) (unknown) (unknown) Quality and ti pj of pain: Sharp in back, sharp in leg; constant (units unknown) (unknown) (unknown) (no date) (unknown) (unknown) ROS Narrative (units unknown) (unknown) (unknown) (no date) (unknown) (unknown) ROS Narrative: (unit s unknown) (unknown) (unknown) (no date) (unknown) (unknown) ROS (units unknown) (unknown) (unknown) (no date) (unknown) (unknown) Reason For Visit (un its unknown) (unknown) (unknown) (no date) (unknown) (unknown) Red flag symptoms: ( units unknown) (unknown) (unknown) (no date) (unknown) (unknown) Relieving fact ors include: recliner, medications (units unknown) (unknown) (unknown) (no date) (unknown) (unknown) Respiratory: Non-labored breathing pattern on RA. No respiratory distress (units unknown) (unknown) (unknown) (no date) (unknown) (unknown) Rheum appointm ent for 12/10/22 (units unknown) (unknown) (unknown) (no date) (unknown) (unknown) Rheumatology marilou lopez her history of arthritis of multiple joints.' (units unknown) (unknown) (unknown) (no date) (unknown) (unknown) Robaxin 750mg QID (u nits unknown) (unknown) (unknown) (no date) (unknown) (unknown) SVT (supravent ricular tachycardia) (units unknown) (unknown) (unknown) (no date) (unknown) (unknown) Saddle anesthe ban: denies (units unknown) (unknown) (unknown) (no date) (unknown) (unknown) She continues have LBP and right leg pain. This has also improved since her last (units unknown) (unknown) (unknown) (no date) (unknown) (unknown) She feels she has made improvements in strength. (units unknown) (unknown) (unknown) (no date) (unknown) (unknown) [facility] for the last 2 weeks. She has been working on (units unknown) (unknown) (unknown) (no date) (unknown) (unknown) Signed By: <Electronically signed by Jay Camarillo MD> (units unknown) (unknown) (unknown) (no date) (unknown) (unknown) Signed (units unknown) (unknown) (unknown) (no date) (unknown) (unknown) Skin: No appre ciable rashes or skin breakdown (units unknown) (unknown) (unknown) (no date) (unknown) (unknown) Smoking Status : Former smoker (units unknown) (unknown) (unknown) (no date) (unknown) (unknown) Soft tissues:? Overlying bowel gas pattern is normal.? No suspicious soft tissue (units unknown) (unknown) (unknown) (no date) (unknown) (unknown) Status: Acute (units unknown) (unknown) (unknown) (no date) (unknown) (unknown) Surgery: Denies (uni ts unknown) (unknown) (unknown) (no date) (unknown) (unknown) Surgical Histo ry (units unknown) (unknown) (unknown) (no date) (unknown) (unknown) TECHNIQUE:? 6 views of the lumbar spine acquired, including flexion and (units unknown) (unknown) (unknown) (no date) (unknown) (unknown) Temp 97.2 F L (units unknown) (unknown) (unknown) (no date) (unknown) (unknown) Temp Source Te mporal Artery Scan (units unknown) (unknown) (unknown) (no date) (unknown) (unknown) [facility] (units unknown) (unknown) (unknown) (no date) (unknown) (unknown) This note may have been all or partially generated using voice recognition (units unknown) (unknown) (unknown) (no date) (unknown) (unknown) Tobacco + Subs tance Use (units unknown) (unknown) (unknown) (no date) (unknown) (unknown) Tobacco Status (unit s unknown) (unknown) (unknown) (no date) (unknown) (unknown) Today I have r eviewed available medical information in the patient's medical (units unknown) (unknown) (unknown) (no date) (unknown) (unknown) Urinary incontinence (units unknown) (unknown) (unknown) (no date) (unknown) (unknown) Visit Reasons: 6WK FOLLOW UP (units unknown) (unknown) (unknown) (no date) (unknown) (unknown) Vitals (units unknown) (unknown) (unknown) (no date) (unknown) (unknown) Voltaren gel - on knee and anterior leg (units unknown) (unknown) (unknown) (no date) (unknown) (unknown) [place] 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 (units unknown) (unknown) (unknown) (no date) (unknown) (unknown) We reviewed et iology, predisposing factor(s), natural course, imaging results as (units unknown) (unknown) (unknown) (no date) (unknown) (unknown) Weakness: b/l leg weakness (units unknown) (unknown) (unknown) (no date) (unknown) (unknown) Weight 297 lb (units unknown) (unknown) (unknown) (no date) (unknown) (unknown) alignment. (units unknown) (unknown) (unknown) (no date) (unknown) (unknown) alignment.? No (unit s unknown) (unknown) (unknown) (no date) (unknown) (unknown) amitriptyline 10 mg tablet 10 mg PO BEDTIME 10/07/22 [History Confirmed (units unknown) (unknown) (unknown) (no date) (unknown) (unknown) amitriptyline 50 mg tablet 50 mg PO BEDTIME 08/27/22 [History Confirmed (units unknown) (unknown) (unknown) (no date) (unknown) (unknown) and oblique views. ( units unknown) (unknown) (unknown) (no date) (unknown) (unknown) and strengthen ing of the lower extremities her goal is to be able to transfer (units unknown) (unknown) (unknown) (no date) (unknown) (unknown) and/or robaxin by prescribing provider. (units unknown) (unknown) (unknown) (no date) (unknown) (unknown) as it is quite expensive for her to travel given her immobility.? She may also (units unknown) (unknown) (unknown) (no date) (unknown) (unknown) atorvastatin 2 0 mg tablet 20 mg PO BEDTIME 08/27/22 [History Confirmed 08/27/22] (units unknown) (unknown) (unknown) (no date) (unknown) (unknown) be a candidate for mild procedure given ligamentum flavum hypertrophy of (units unknown) (unknown) (unknown) (no date) (unknown) (unknown) benefit.? Not interested in interventions today there focus on physical therapy (units unknown) (unknown) (unknown) (no date) (unknown) (unknown) benefits of [place] treatment options were discussed with the patient in great (units unknown) (unknown) (unknown) (no date) (unknown) (unknown) bowel/bladder dysfunction, and perineal numbness were discussed. The patient was (units unknown) (unknown) (unknown) (no date) (unknown) (unknown) buttock, anter ior thigh, anterior lower leg and dorsum of foot (units unknown) (unknown) (unknown) (no date) (unknown) (unknown) calcifications.? (un its unknown) (unknown) (unknown) (no date) (unknown) (unknown) carvedilol 12. 5 mg tablet 12.5 mg PO ONCE 08/27/22 [History Confirmed 08/27/22] (units unknown) (unknown) (unknown) (no date) (unknown) (unknown) decrease of le g and back pain) (units unknown) (unknown) (unknown) (no date) (unknown) (unknown) detail. (units unknown) (unknown) (unknown) (no date) (unknown) (unknown) duloxetine 60 mg capsule,delayed release 60 mg PO DAILY 08/27/22 [History (units unknown) (unknown) (unknown) (no date) (unknown) (unknown) extension views (uni ts unknown) (unknown) (unknown) (no date) (unknown) (unknown) from her abdom en. I recommended that she f/u with her PCP in this regard. (units unknown) (unknown) (unknown) (no date) (unknown) (unknown) from [facility] with less assistance.? We will arrange for [place] home health care (units unknown) (unknown) (unknown) (no date) (unknown) (unknown) furosemide 40 mg tablet 40 mg PO DAILY 08/27/22 [History Confirmed 08/27/22] (units unknown) (unknown) (unknown) (no date) (unknown) (unknown) further evalua tion of low back and right leg pain.? Pain is likely (units unknown) (unknown) (unknown) (no date) (unknown) (unknown) has a rheumato logy appointment on 12/10/22. (units unknown) (unknown) (unknown) (no date) (unknown) (unknown) has home healt h and has noticed improvement in pain and strength. She is (units unknown) (unknown) (unknown) (no date) (unknown) (unknown) have occurred. If there are any questions, please contact the Medical Records (units unknown) (unknown) (unknown) (no date) (unknown) (unknown) hydrocodone 7. 5 mg-acetaminophen 325 mg tablet 1 tab PO 08/27/22 [History (units unknown) (unknown) (unknown) (no date) (unknown) (unknown) instructed to report to the Emergency department, if these symptoms occur. (units unknown) (unknown) (unknown) (no date) (unknown) (unknown) intravenous dr ug use, sustained glucocorticoid use, osteoporosis, or a focal (units unknown) (unknown) (unknown) (no date) (unknown) (unknown) lack of compli ance and participation with care. She started home PT with (units unknown) (unknown) (unknown) (no date) (unknown) (unknown) losartan 100 m g tablet 100 mg PO DAILY 08/27/22 [History Confirmed 08/27/22] (units unknown) (unknown) (unknown) (no date) (unknown) (unknown) losartan 50 mg tablet 50 mg PO DAILY 08/27/22 [History Confirmed 08/27/22] (units unknown) (unknown) (unknown) (no date) (unknown) (unknown) may occur. Occ asional wrong-word or 'sound-alike' substitutions may have (units unknown) (unknown) (unknown) (no date) (unknown) (unknown) methocarbamol 750 mg tablet 750 mg PO BEDTIME 08/27/22 [History Confirmed (units unknown) (unknown) (unknown) (no date) (unknown) (unknown) multifactorial including both axial and radicular components.? She is had (units unknown) (unknown) (unknown) (no date) (unknown) (unknown) multiple epidu ral steroid injections in the past at [facility] without (units unknown) (unknown) (unknown) (no date) (unknown) (unknown) multiple level s of the lumbar spine.? She is also interested in a referral to (units unknown) (unknown) (unknown) (no date) (unknown) (unknown) neurological d eficit with progressive or disabling symptoms. (units unknown) (unknown) (unknown) (no date) (unknown) (unknown) occurred due t o the inherent limitations of voice recognition software. Please (units unknown) (unknown) (unknown) (no date) (unknown) (unknown) of lyrica and robaxin may be considered by the prescribing provider. She also (units unknown) (unknown) (unknown) (no date) (unknown) (unknown) omeprazole 20 mg capsule,delayed release 20 mg PO DAILY 08/27/22 [History (units unknown) (unknown) (unknown) (no date) (unknown) (unknown) or immunosuppr essive therapy, previous or current cancer diagnosis, history of (units unknown) (unknown) (unknown) (no date) (unknown) (unknown) pregabalin 50 mg capsule 50 mg PO DAILY 08/27/22 [History Confirmed 08/27/22] (units unknown) (unknown) (unknown) (no date) (unknown) (unknown) read the note carefully and recognize, using context, where these substitutions (units unknown) (unknown) (unknown) (no date) (unknown) (unknown) record, includ ing relevant provider notes, laboratory work, and imaging. (units unknown) (unknown) (unknown) (no date) (unknown) (unknown) requesting med ication modifications. She denies over sedation. Upward titration (units unknown) (unknown) (unknown) (no date) (unknown) (unknown) simvastatin 40 mg tablet 40 mg PO BEDTIME 08/27/22 [History Confirmed 08/27/22] (units unknown) (unknown) (unknown) (no date) (unknown) (unknown) software. Alth ough every effort is made to edit content, excelsior cutter errors (units unknown) (unknown) (unknown) (no date) (unknown) (unknown) strengthening the lower extremities with the goal of transferring on her own. (units unknown) (unknown) (unknown) (no date) (unknown) (unknown) therapeutic in jections and surgery. The risks, consequences, alternatives and (units unknown) (unknown) (unknown) (no date) (unknown) (unknown) unspecified wh ether sciatica present Qualified Code(s): M54.50 - Low back pain, (units unknown) (unknown) (unknown) (no date) (unknown) (unknown) unspecified; G 89.29 - Other chronic pain (units unknown) (unknown) (unknown) (no date) (unknown) (unknown) vertebral body compression fractures.? No suspicious bony lesions.? (units unknown) (unknown) (unknown) (no date) (unknown) (unknown) visit. (units unknown) (unknown) (unknown) (no date) (unknown) (unknown) well as treatm ent options including medications, physical therapy/exercise, (units unknown) (unknown) Social History date description facility 2022-10-06 00:00 Ex-smoker (finding) [facility] Vital Signs date measurement value units 2022-10-07 00:00 BMI 46.5 kg/m2 2022-10-07 00:00 BP_diastolic 80 mmHg 2022-10-07 00:00 BP_systolic 130 mmHg 2022-10-07 00:00 heart_rate 75 /min 2022-10-07 00:00 height_metric 170.18 cm 2022-10-07 00:00 height_standard 67 in 2022-10-07 00:00 o2_saturation 93 % 2022-10-07 00:00 temperature_metric 36.22 C 2022-10-07 00:00 temperature_standard 97.2 F 2022-10-07 00:00 weight_metric 134.71 kg 2022-10-07 00:00 weight_standard 296.98 lb
[2023-01-03 13:18] LABS: B. PARAPERTUSSIS- RESP PCR PAN NOT DETECTED; B. PERTUSSIS- RESP PCR PANEL NOT DETECTED; C. PNEUMONIAE- RESP PCR PANEL NOT DETECTED; CORONAVIRUS 229E-RESP PCR NOT DETECTED; CORONAVIRUS HKU1-RESP PCR NOT DETECTED; CORONAVIRUS NL63-RESP PCR NOT DETECTED; CORONAVIRUS OC43-RESP PCR NOT DETECTED; HUMAN METAPNEUMOVIRUS NOT DETECTED; INFLUENZA A- RESP PCR PANEL NOT DETECTED; INFLUENZA B - RESP PCR PANEL NOT DETECTED; M. PNEUMONIAE- RESP PCR PANEL NOT DETECTED; PARAINFLUENZA VIRUS 1 NOT DETECTED; PARAINFLUENZA VIRUS 2 NOT DETECTED; PARAINFLUENZA VIRUS 3 NOT DETECTED; PARAINFLUENZA VIRUS 4 NOT DETECTED; RHINOVIRUS/ENTEROVIRUS NOT DETECTED; RSV- RESP PCR PANEL NOT DETECTED; SARS-CoV-2 -RESP PCR PANEL NOT DETECTED
[2023-01-03] MEDS ORDERED: ALBUTEROL NEB 2.5 MG/3 ML INH STA (13:22)
[2023-01-03] MEDS ORDERED: levoFLOXacin 750 MG/150 ML 750 MG/150 ML BAG IV STA (13:22)
[2023-01-03] MEDS ORDERED: DEXAMETHASONE 10 MG/ML VIAL IVP STA (13:25)
[2023-01-03] MEDS ORDERED: ONDANSETRON 4 MG/2 ML VIAL IVP PRN (17:19)
[2023-01-03] MEDS ORDERED: IPRATROPIUM/ALBUTEROL 3 ML NEB INH PRN (17:22)
--- NOTE | 2023-01-03 17:51 | HISTORY & PHYSICAL EXAMINATION ---
Chief Complaint - Chief Complaint Chief Complaint: Short of breath, cough, wheezing History of Present Illness - Admitted From Admitted From:: ED - History Obtained From History obtained from: ED provider, chart review, the patient - History of Present Illness HPI Comment/Other: This is an 82-year-old white female who lives alone but has many caregivers 7 days a week. She has a history of asthma but does not routinely take inhalers or nebulizers. She is on home O2 at 2 L/min. There is a history of diastolic heart failure and seasonal allergies. She has a history of obesity hypoventilation syndrome and has a CPAP at night. She is bedbound and wheelchair-bound at baseline and has morbid obesity. For the last 2 to 3 days she has had a cough and wheezing and shortness of breath and her chronic leg edema did not worsen. She claims that she is compliant with all her medications and says that the caregivers are the ones who make the meals so sometimes they do not give her a low-salt meal. Today her shortness of breath got remarkably worse and she called an ambulance. There is no ambulance run sheet scanned into this EMR to review her documented vital signs on the scene. She received Lasix IV by the paramedics and was transported to the ER on 2 L nasal cannula. In our ER she was noted to have wheezing, rales and rhonchi. She received nebulizer treatments x2 and was put on 3 L nasal cannula when her O2 saturation dropped to 78% on 2L of O2. She has had a good urine output of over 1000 cc while in the ER from the IV Lasix given by paramedics. Labs show that she has a white count of 17, respiratory PCR is entirely negative, BNP is 225 (her baseline is 98), chest x-ray shows CHF and no infiltrate. The ER doctor spoke to me about her. The patient will be admitted for acute on chronic respiratory failure with hypoxia, acute bronchitis, COPD exacerbation and CHF exacerbation. The patient had a POLST on file which stated DNR/DNI. Today I spoke to the patient about her CODE BLUE wishes and she wants to have resuscitation but no intubation, therefore I will order Full Code but DNI. The old POLST will be shredded. She and I will fill out a new POLST. History - Past Medical History Cardiovascular: reports: Hypertension, High cholesterol, Coronary artery disease, Valve disorder, Other Respiratory: reports: Shortness of breath, Sleep apnea, CPAP use Neuro: reports: Peripheral neuropathy Endocrine/Autoimmune: reports: Other GI: reports: GERD, Other TEMPLATE FITTER: reports: Breast cancer (Lumpectomy/XRT followed by adjuvant AC/T 2005) : reports: Frequency HEENT: reports: Chronic vision loss Psych: reports: None Musculoskeletal: reports: Osteoarthritis, Fibromyalgia, Chronic back pain, Other Derm: reports: Rosacea MRSA Hx?: No - Past Surgical History General: reports: Cholecystectomy, Appendectomy, Colonoscopy /TEMPLATE FITTER: reports: Hysterectomy, Oophrectomy, Other HEENT: reports: Cataracts Derm: reports: Skin cancer surgery - Family & Social History Family History: Mother: , Father: Family History Comment/Other: Father of heart disease at the age of 50. Mom of old age at 84 but had high blood pressure, diabetes, Parkinson's disease. 1 brother of unknown causes. 1 sister alive but very ill with unknown causes. 2 children described as completely healthy without any medical illnesses. Living arrangement: At home Living Situation: Alone, With caregiver(s) Social History Notes: She has been retired now for almost 16 years. Lives [place] on the [place]. No history of alcohol or substance abuse per her friend and neighbor Adriana. Patient confabulates her social history at times - Substance History Use: Uses substance without health or social issues: NONE - POLST Patient has POLST: No POLST Status: DNR Meds/Allgy - Home Medications Home Medications: Ambulatory Orders Medication Instructions Recorded Confirmed Omeprazole 20 mg PO BID 04/27/14 12/05/22 Aspirin [Aspir-Low] 81 mg PO DAILY 09/25/16 12/05/22 HYDROcodone/ACET 7.5/325 [[place] 1 tab PO BID PRN 10/09/21 12/05/22 7.5/325] carvediloL [Coreg] 12.5 mg PO BID 10/09/21 12/05/22 Amitriptyline HCl 50 mg PO QPM 04/03/22 12/05/22 Atorvastatin [Lipitor] 20 mg PO QPM 04/03/22 12/05/22 Furosemide [Lasix] 40 mg PO 1200 04/03/22 12/05/22 Furosemide [Lasix] 75 mg PO DAILY 04/03/22 12/05/22 Pregabalin 50 mg PO TID 06/02/22 12/05/22 Carboxymethylcellulose 1% Opht 1 drops EACHEYE PRN PRN ml 06/10/22 12/05/22 [Refresh 1% Ophth Drops] Losartan [Cozaar] 25 mg PO DAILY #15 tab 06/10/22 12/05/22 Zinc Oxide 20% Oint [Zinc Oxide] 1 applic TOP PRN PRN each 06/10/22 12/05/22 - Allergies Allergies/Adverse Reactions: Allergies Allergy/AdvReac Type Severity Reaction Status Date / Time No Known Drug Allergies Allergy Verified 01/03/23 12:16 Review of Systems - Respiratory Respiratory: reports: Cough, Sputum production, Wheezing, SOB at rest, SOB with exertion - All Other Systems All Other Systems: reports: Reviewed and negative Exam - Vital Signs Vital Signs: Vital Signs x48h Temp Pulse Resp BP Pulse Ox O2 Flow Rate 01/03/23 17:19 94 3 01/03/23 16:56 68 16 4 01/03/23 16:47 72 21 108/58 L 78 L 2 01/03/23 14:20 89 18 141/42 H 92 2 01/03/23 13:47 89 21 3 01/03/23 12:39 72 20 2.5 01/03/23 12:08 36.9 C 75 15 137/63 H 91 L 01/03/23 12:05 88 L 2 - Physical Exam General Appearance: positive: Moderate distress (She is orthopneic. She is wearing O2 via nasal cannula) Eyes Bilateral: positive: Normal inspection, EOMI, Other (Glasses) ENT: positive: ENT inspection nml, No signs of dehydration Neck: positive: Nml inspection, Other (Cannot evaluate JVP due to morbid obese) Respiratory: positive: Wheezes, Rales, Rhonchi Cardiovascular: positive: Other (Heart sounds are not audible over her very loud rales and rhonchi) Abdomen: positive: Other (Moderately to severely distended, nontender, cannot rule out organomegaly or ascites, has a pannus) Skin: positive: Warm, Dry Extremities: positive: Non-tender, Other (4+ edema to the hips and abdominal wall) Neurologic/Psychiatric: positive: Oriented x3, Motor nml Conclusion/Plan - Problem List (1) Acute and chronic respiratory failure with hypoxia Conclusion/Plan: This is multifactorial: From acute bronchitis, COPD exacerbation and CHF exacerbation Plan: We will give supplemental O2 with target O2 saturations greater than 88% I will order her home BiPAP machine to be used while she is here We will treat each of the underlying problems. On the day of discharge she will need a repeat oximetry test, to see if she needs different home O2 ordered. (2) Bronchitis with acute wheezing Conclusion/Plan: Plan: Will order sputum to send for culture We will give empiric Solu-Medrol 80 mg IV 3 times daily Will give DuoNeb treatments scheduled 4 times daily and as needed every 4 hours We will order Mucinex for pulmonary toilet (3) CHF exacerbation Conclusion/Plan: For the last several years her Echoes have shown LV diastolic heart failure. She claims that this is the amount of leg edema she always has and on exam she has anasarca with 4+ pitting edema all the way to her hips and her abdominal wall and I suspect she may have ascites, since the abdomen is larger than her last admissions (I remember her exam). Plan: The first troponin was 20, we will repeat that now to see if there is an increase to suggest acute KS as cause of the CHF exacerbation. If it is abnormal then we will get an EKG, no EKG was done in the ER apparently We will start IV twice daily Lasix and follow her I's and O's, daily weights, electrolytes and magnesium. With this amount of anasarca, there is probably more than 10 pounds of water weight to diurese off. We will continue her usual cardiac medications, once the med list is reconciled by pharmacy We will recheck her Echo w/ definity, and I suspect that she now may have Cor pulmonale, given this much anasarca, since in the past the RV was reported to be normal size with normal function. Qualifiers: Heart failure type: unspecified Qualified Code(s): I50.9 - Heart failure, unspecified (4) Morbid obesity with BMI of 45.0-49.9, adult Conclusion/Plan: This complicates most of her care. She has become sedentary, only wheelchair- bound and bedbound and needs caregivers. During a previous hospitalization it was documented that she would rather defecate into a diaper then go on to a commode. She has obesity hypoventilation syndrome Plan: Because of her obesity-hypoventilation syndrome she was to be on a CPAP machine and I will order her home CPAP machine to be used here, if she still has that machine - Lab Results Fish Bones: 01/03/23 12:21 01/03/23 12:21 - Diagnostic Imaging Results Diagnostic Imaging Results: positive: Final report reviewed - Other Other Results/Comments: Attestation: The patient is expected to be hospitalized for >2 midnights and is expected to be discharged or transferred to another facility within 96 hours: Yes.
[2023-01-03] MEDS: BUDESONIDE 0.5 MG/2 ML NEB INH SCH (19:25)
[2023-01-03] MEDS: IPRATROPIUM/ALBUTEROL 3 ML NEB INH SCH (19:25)
[2023-01-03] MEDS: guaiFENesin 600 MG TABLET PO SCH (20:36)
[2023-01-03] MEDS: ACETAMINOPHEN 325 MG TABLET PO PRN ×2 (20:36→23:20)
[2023-01-03] MEDS: methylPREDNISolone SUCCINATE 40 MG/ML VIAL IVP SCH ×2 (20:36→21:34)
[2023-01-03] MEDS: SODIUM CHLORIDE FLUSH 0.9% 10 ML SYRINGE IVP SCH (23:20)
[2023-01-04] MEDS: FUROSEMIDE 20 MG/2 ML VIAL IVP SCH ×2 (05:14→14:11)
[2023-01-04] MEDS: methylPREDNISolone SUCCINATE 40 MG/ML VIAL IVP SCH ×3 (05:15→21:09)
[2023-01-04 05:24] LABS: BASOPHILS % (AUTO) 0.2 %; HCT - HEMATOCRIT 37.1 % (37.0-47.0); HGB - HEMOGLOBIN 11.6 g/dL (12.0-16.0); LYMPHOCYTES # (AUTO) 0.8 10^3/uL (1.5-3.5); LYMPHOCYTES % (AUTO) 4.5 %; MEAN CORPUSCULAR HEMOGLOBIN 30.1 pg (27.0-31.0); MEAN CORPUSCULAR HGB CONC 31.3 g/dL (32.0-36.0); MEAN CORPUSCULAR VOLUME 96.1 fL (81.0-99.0); MEAN PLATELET VOLUME 11.5 fL (7.9-10.8); MONOCYTES # (AUTO) 0.3 10^3/uL (0.0-1.0); MONOCYTES % (AUTO) 1.7 %; NEUTROPHILS # (AUTO) 15.6 10^3/uL (1.5-6.6); NEUTROPHILS % (AUTO) 93.1 %; PLT - PLATELET COUNT 209 10^3/uL (130-450); RED BLOOD COUNT 3.86 10^6/uL (4.20-5.40); RED CELL DISTRIBUTION WIDTH 13.4 % (12.0-15.0); WHITE BLOOD COUNT 16.8 x10^3/uL (4.8-10.8)
[2023-01-04 05:33] LABS: CALCIUM 9.5 mg/dL (8.5-10.3); CREATININE 0.7 mg/dL (0.4-1.0); MAGNESIUM 1.9 mg/dL (1.7-2.8); POTASSIUM 3.4 mmol/L (3.5-5.0)
[2023-01-04] MEDS: BUDESONIDE 0.5 MG/2 ML NEB INH SCH ×2 (06:17→19:00)
[2023-01-04] MEDS: IPRATROPIUM/ALBUTEROL 3 ML NEB INH SCH ×4 (06:17→19:00)
[2023-01-04] MEDS: ACETAMINOPHEN 325 MG TABLET PO PRN (08:47)
[2023-01-04] MEDS: guaiFENesin 600 MG TABLET PO SCH ×2 (08:47→21:10)
[2023-01-04] MEDS: ENOXAPARIN 40 MG/0.4 ML SYRINGE SUBQ SCH (08:48)
[2023-01-04] MEDS: SODIUM CHLORIDE FLUSH 0.9% 10 ML SYRINGE IVP SCH ×2 (08:48→15:36)
[2023-01-04] MEDS: POTASSIUM CHLORIDE 20 MEQ TABLET PO SCH (10:34)
[2023-01-04] MEDS: AMOX/CLAV 875 MG/125 MG TABLET PO SCH ×2 (10:34→21:10)
--- NOTE | 2023-01-04 10:53 | PHARMACY PROGRESS NOTE ---
- Best Possible Medication History Admit Date and Time: 01/03/23 0922 Processed by: Pharmacy Medication History completed: Yes Patient Interview: Completed Secondary Source(s): Insurance records (USING [employer]) As the person ultimately responsible for medication therapy, providers are able to order a medication from an existing home medication list in [facility] via the "Reconcile Routine" prior to Confirmation of that medication by computer network support specialist. Such practice is discouraged except when the physician, in their clinical judgment, deems that a medical need exists for a medication without regard to previous use. Conducted pt interview at bedside using on-file medication history and [employer] information as references.
[2023-01-04] MEDS ORDERED: CARBOXYMETHYLCELLULOSE OPHTH DROPS EACHEYE PRN (13:14)
[2023-01-04] MEDS: PREGABALIN 25 MG CAPSULE PO SCH ×2 (14:11→21:09)
--- NOTE | 2023-01-04 15:02 | PROVIDER PROGRESS NOTE ---
Assessment/Plan - Problem List (1) Acute and chronic respiratory failure with hypoxia Assessment/Plan: This is multifactorial: From acute bronchitis, COPD exacerbation and CHF exacerbation. She normally uses 2 L O2 at home and she came in hypoxic while on her 2 L of O2. She needed 3 L O2 last night. Today at rest she is back down to 2 L O2. Plan: Cont supplemental O2 with target O2 saturations greater than 88% Cont her home BiPAP machine to be used while she is here Cont to treat each of the underlying problems. On the day of discharge she will need a repeat oximetry test, to see if she needs different home O2 ordered. (2) Bronchitis with acute wheezing Conclusion/Plan: She has not made a sputum sample to send for cx Plan: Await sputum sample to send for culture. She was not started on empiric antibiotics yet, but I will start empiric po Augmentin. Cont Solu-Medrol 80 mg IV 3 times daily, will start to wean that down tomorrow Cont DuoNeb treatments scheduled 4 times daily and as needed every 4 hours Cont Mucinex for pulmonary toilet (3) CHF exacerbation Conclusion/Plan: For the last several years her Echoes have shown LV diastolic heart failure. Troponins were checked after admission, and she ruled out for an DE, as the cause of this CHF exacerbation She claims that her caregivers who prepare her meals do not follow a low salt diet. She thought that this is the amount of leg edema she always has and on exam. But her exam shows anasarca with 4+ pitting edema all the way to her hips and her abdominal wall and her abdomen is larger than her last admissions (I remember her exam). Plan: Cont IV twice daily Lasix and follow her I's and O's, daily weights, electrolytes and magnesium. With this amount of anasarca, there is probably more than 10 pounds of water weight to diurese off. I have continued her usual cardiac medications,since med list was reconciled by pharmacy I ordered an Echo w/ definity, to rechecl LVEF and RVEF. I suspect that she now may have Cor pulmonale, given this much anasarca, since in the past the RV was reported to be normal size with normal function. Qualifiers: Heart failure type: unspecified Qualified Code(s): I50.9 - Heart failure, unspecified (4) Anasarca She thought that this is the amount of leg edema she always has and on exam, but she she has anasarca with 4+ pitting edema all the way to her hips and her abdominal wall and I suspect she may have ascites, since the abdomen is larger than her last admissions (I remember her exam). I suspect she has >10 lbs of fluid to diurese off. Plan: Continue iv BID diuretic Today she will be lifted with a sling, bed re-zeroed, and start properly following her daily weight. (5) Paroxysmal Afib Today her telemetry showed she went into Afib with a controlled HR. She has had Parox Afib before, per records. Plan: I have resumed her usual Coreg twice daily dose, for heart rate control Her CHADS2 score is 1 or 2, so she needs to be at least on an asprin daily, for stroke prophylaxis. And she is on 1 baby aspirin daily, which has been continued. (6) Morbid obesity with BMI of 45.0-49.9, adult Conclusion/Plan: This complicates most of her care. She has become sedentary, only wheelchair- bound and bedbound and needs caregivers. (During a previous hospitalization it was documented that she would rather defecate into a diaper then go on to a commode). She has obesity hypoventilation syndrome Because of her obesity-hypoventilation syndrome she was to be on a CPAP machine and I ordered her home CPAP machine to be used here Plan: Depending on if she wants to try to stand to pivot and get into a wheelchair, I will order PT and OT (today is Thursday and we have no PT and OT today). - Current Meds Current Meds: Current Medications Generic Name Dose Route Start Last Admin Trade Name Freq PRN Reason Stop Dose Admin Acetaminophen 650 mg 01/03/23 17:19 01/04/23 08:47 Acetaminophen 325 Mg Tablet PO 650 mg Q4HR PRN Administration Pain 1 to 4, or Fever Albuterol/Ipratropium 3 ml 01/03/23 19:00 01/04/23 11:17 Ipratropium/Albuterol 3 Ml Neb INH 3 ml RTQID TAI Administration Amoxicillin/Clavulanate Potassium 1 tab 01/04/23 10:09 01/04/23 10:34 Amox/Clav 875 Mg/125 Mg Tablet PO 1 tab BID TAI Administration Budesonide 0.5 mg 01/03/23 19:00 01/04/23 06:17 Budesonide 0.5 Mg/2 Ml Neb INH 0.5 mg RTBID TAI Administration Enoxaparin Sodium 40 mg 01/04/23 09:00 01/04/23 08:48 Enoxaparin 40 Mg/0.4 Ml Syringe SUBQ 40 mg DAILY TAI Administration Furosemide 20 mg 01/04/23 06:00 01/04/23 14:11 Furosemide 20 Mg/2 Ml Vial IVP 20 mg BIDDIURETIC TAI Administration Guaifenesin 600 mg 01/03/23 21:00 01/04/23 08:47 Guaifenesin 600 Mg Tablet PO 600 mg BID TAI Administration Methylprednisolone 80 mg 01/03/23 21:00 01/04/23 14:12 Methylprednisolone Succinate 40 Mg/Ml Vial IVP 80 mg TID TAI Administration Potassium Chloride 20 meq 01/04/23 11:00 01/04/23 10:34 Potassium Chloride 20 Meq Tablet PO 20 meq DAILYWM TAI Administration Pregabalin 50 mg 01/04/23 14:00 01/04/23 14:11 Pregabalin 25 Mg Capsule PO 50 mg TID TAI Administration Sodium Chloride 10 ml 01/04/23 01:00 01/04/23 08:48 Sodium Chloride Flush 0.9% 10 Ml Syringe IVP 10 ml 0100,0900,1700 TAI Administration - Lab Result Fish Bone Diagrams: 01/04/23 05:06 01/04/23 05:06 - Additional Planning My Orders: My Active Orders 01/03/23 Dinner Soft Mechanical Diet [DIET] 01/03/23 17:19 Activity Orders [RC] Q2HR IO [RC] IOSHIFT Incentive Spirometry - RT [RC] TID Initiate Bowel Care Protocol [RC] .protocol Initiate Line Care Protocol [RC] QSHIFT Initiate Lung Inflation Protoc [RC] .PROTOCOL Initiate Personal Care Protoco [RC] .protocol Initiate Secretion Clearance P [RC] .PROTOCOL Oxygen Therapy [RC] .PRN Telemetry- [RC] Q4HR Vital Signs [RC] Q4HR Acetaminophen [Tylenol] 650 mg PO Q4HR PRN Ondansetron Inj [Zofran Inj] 4 mg IVP Q6HR PRN Sodium Chloride Flush 0.9% [Normal Saline Flush 0.9%] 10 ml IVP PRN PRN Code Status [OTHERS] Routine Condition of Patient [OTHERS] Routine DVT Prophylaxis [OTHERS] Routine 01/03/23 17:21 Daily Weight [RC] 0600 IV Insert [RC] .ONCE 01/03/23 17:22 Initiate Line Care Protocol [RC] QSHIFT Ipratropium/Albuterol [Duoneb] 3 ml INH RTQ4H PRN 01/03/23 19:00 Budesonide [Pulmicort] 0.5 mg INH RTBID Ipratropium/Albuterol [Duoneb] 3 ml INH RTQID 01/03/23 19:26 RT [Nebulizer/MDI Tx.] [RC] .QID 01/03/23 21:00 guaiFENesin [Mucinex] 600 mg PO BID methylPREDNISolone SUCCINATE [SOLU-Medrol (40MG VIAL)] 80 mg IVP TID 01/03/23 21:22 Min Oil/Dimeth/Coconut Oil Crm [Cavilon] 1 applic TOP PRN PRN 01/03/23 23:52 RT [Home CPAP/BiPAP] [RC] .ONCE 01/04/23 01:00 Sodium Chloride Flush 0.9% [Normal Saline Flush 0.9%] 10 ml IVP 0100,0900,1700 01/04/23 06:00 FUROSEMIDE INJ 20mg VIAL [LASIX INJ 20mg VIAL] 20 mg IVP BIDDIURETIC 01/04/23 09:00 Enoxaparin [Lovenox] 40 mg SUBQ DAILY 01/04/23 10:09 Amox/Clav 875/125 [Augmentin 875/125 Tab] 1 tab PO BID 01/04/23 11:00 Potassium Chloride [K-Dur] 20 meq PO DAILYWM 01/04/23 13:14 Carboxymethylcellulose 1% Opht [Refresh 1% Ophth Drops] 1 drops EACHEYE Q4H PRN HYDROcodone/ACET 7.5/325 [[place] 7.5/325] 1 tab PO BID PRN Zinc Oxide 20% Oint [Zinc Oxide] 1 applic TOP PRN PRN 01/04/23 13:33 methocarbamoL [Robaxin] 750 mg PO BID PRN 01/04/23 14:00 Pregabalin [Lyrica] 50 mg PO TID 01/04/23 21:00 Amitriptyline [Elavil] 50 mg PO QPM Atorvastatin [Lipitor] 20 mg PO QPM 01/05/23 05:00 BMP - BASIC METABOLIC PANEL [CHEM] DAILYLAB CALCIUM [CHEM] DAILYLAB CBC - COMP BLD CT W/AUTO DIFF [HEME] DAILYLAB MAGNESIUM [CHEM] DAILYLAB 01/05/23 07:00 Pantoprazole [Protonix] 40 mg PO QDAC 01/05/23 08:00 Multivitamin W/Minerals [Theragran M] 1 tab PO DAILYWM carvediloL [Coreg] 12.5 mg PO BIDWM 01/05/23 09:00 Aspirin EC [Ecotrin] 81 mg PO DAILY Calcium Citrate 500 mg PO DAILY Cholecalciferol [Vitamin D3] 400 unit PO DAILY Losartan [Cozaar] 25 mg PO DAILY 01/06/23 05:00 BMP - BASIC METABOLIC PANEL [CHEM] DAILYLAB CALCIUM [CHEM] DAILYLAB CBC - COMP BLD CT W/AUTO DIFF [HEME] DAILYLAB MAGNESIUM [CHEM] DAILYLAB 01/06/23 07:00 Echo Transthoracic w/Definity [ECHO] Routine 01/07/23 05:00 BMP - BASIC METABOLIC PANEL [CHEM] DAILYLAB CBC - COMP BLD CT W/AUTO DIFF [HEME] DAILYLAB MAGNESIUM [CHEM] DAILYLAB 01/08/23 05:00 BMP - BASIC METABOLIC PANEL [CHEM] DAILYLAB CBC - COMP BLD CT W/AUTO DIFF [HEME] DAILYLAB MAGNESIUM [CHEM] DAILYLAB Subjective - Subjective Patient Reports: Feeling Better (She is less winded and has less "gurgling". She is still orthopneic.) Objective Vital Signs: Vital Signs - 24 hr 01/03/23 01/03/23 01/03/23 16:47 16:56 17:19 Temperature Heart Rate 72 68 Heart Rate [ Brachial] Respiratory 21 16 Rate Blood Pressure 108/58 L Blood Pressure [Left Brachial artery] O2 Saturation 78 L 94 If not protocol 2 4 3 : Oxygen Flow, liters/minute 01/03/23 01/03/23 01/03/23 17:47 18:04 19:25 Temperature 36.8 C Heart Rate 65 Heart Rate [ 66 Brachial] Respiratory 20 18 Rate Blood Pressure Blood Pressure 115/46 L [Left Brachial artery] O2 Saturation 97 If not protocol 4 4 2 : Oxygen Flow, liters/minute 01/03/23 01/03/23 01/04/23 20:33 23:26 05:10 Temperature 36.6 C 36.2 C L 36.3 C L Heart Rate Heart Rate [ 66 65 62 Brachial] Respiratory 22 20 20 Rate Blood Pressure Blood Pressure 123/47 L 121/52 L 113/48 L [Left Brachial artery] O2 Saturation 94 94 90 L If not protocol 2 3 3 : Oxygen Flow, liters/minute 01/04/23 01/04/23 01/04/23 05:27 06:15 07:34 Temperature 36.2 C L Heart Rate 75 Heart Rate [ 73 Brachial] Respiratory 18 18 Rate Blood Pressure Blood Pressure 132/49 H [Left Brachial artery] O2 Saturation 93 95 If not protocol 2 2 2 : Oxygen Flow, liters/minute 01/04/23 01/04/23 11:19 13:00 Temperature 36.5 C Heart Rate 68 Heart Rate [ 72 Brachial] Respiratory 16 20 Rate Blood Pressure Blood Pressure 138/60 H [Left Brachial artery] O2 Saturation 95 If not protocol 2 2 : Oxygen Flow, liters/minute Oxygen O2 Source [Without Activity] Nasal cannula O2 Source [With Activity] Nasal cannula O2 Source Nasal cannula Oxygen Flow Rate 3 I&O (Last 24 Hrs): Intake and Output Totals x24h 01/02/23 01/03/23 01/04/23 23:59 23:59 23:59 Intake Total 150 1360 Output Total 300 1300 Balance -150 60 General: Alert, Oriented x3 HEENT: Mucous membr. moist/pink, Other (Wearing O2 via nasal cannula) Neck: Supple, Other (Cannot evaluate JVP due to morbid obese) Neuro: Alert, Non Focal Cardiovascular: No murmurs, Other (Heart sounds are very distant due to her morbid obesity) Respiratory: No respiratory distress, Rales, Rhonchi Abdomen: Soft, Other (Obese with a pannus) Extremities: No clubbing, Other (4+ pitting edema to the hips) - Results Results: Laboratory Results WBC 16.8 x10^3/uL (4.8-10.8) H 01/04/23 05:06 RBC 3.86 10^6/uL (4.20-5.40) L 01/04/23 05:06 Hgb 11.6 g/dL (12.0-16.0) L 01/04/23 05:06 Hct 37.1 % (37.0-47.0) 01/04/23 05:06 MCV 96.1 fL (81.0-99.0) 01/04/23 05:06 MCH 30.1 pg (27.0-31.0) 01/04/23 05:06 MCHC 31.3 g/dL (32.0-36.0) L 01/04/23 05:06 RDW 13.4 % (12.0-15.0) 01/04/23 05:06 Plt Count 209 10^3/uL (130-450) 01/04/23 05:06 MPV 11.5 fL (7.9-10.8) H 01/04/23 05:06 Neut # (Auto) 15.6 10^3/uL (1.5-6.6) H 01/04/23 05:06 Lymph # (Auto) 0.8 10^3/uL (1.5-3.5) L 01/04/23 05:06 Crook # (Auto) 0.3 10^3/uL (0.0-1.0) 01/04/23 05:06 Eos # (Auto) 0.0 10^3/uL (0.0-0.7) 01/04/23 05:06 Baso # (Auto) 0.0 10^3/uL (0.0-0.1) 01/04/23 05:06 Absolute Nucleated RBC 0.00 x10^3/uL 01/04/23 05:06 Nucleated RBC % 0.0 /100WBC 01/04/23 05:06 Sodium 139 mmol/L (135-145) 01/04/23 05:06 Potassium 3.4 mmol/L (3.5-5.0) L 01/04/23 05:06 Chloride 94 mmol/L (101-111) L 01/04/23 05:06 Carbon Dioxide 34 mmol/L (21-32) H 01/04/23 05:06 Anion Gap 11.0 (6-13) 01/04/23 05:06 BUN 21 mg/dL (6-20) H 01/04/23 05:06 Creatinine 0.7 mg/dL (0.4-1.0) 01/04/23 05:06 Estimated GFR (MDRD) 80 (>89) L 01/04/23 05:06 Glucose 197 mg/dL (70-100) H 01/04/23 05:06 Calcium 9.5 mg/dL (8.5-10.3) 01/04/23 05:06 Magnesium 1.9 mg/dL (1.7-2.8) 01/04/23 05:06 Total Bilirubin 0.6 mg/dL (0.2-1.0) 01/03/23 12:21 AST 17 IU/L (10-42) 01/03/23 12:21 ALT 19 IU/L (10-60) 01/03/23 12:21 Alkaline Phosphatase 101 IU/L (42-121) 01/03/23 12:21 Troponin I High Sens 23.4 ng/L (2.3-14.8) H* 01/03/23 18:45 B-Natriuretic Peptide 328 pg/mL (5-100) H 01/04/23 05:06 Total Protein 7.6 g/dL (6.7-8.2) 01/03/23 12:21 Albumin 3.6 g/dL (3.2-5.5) 01/03/23 12:21 Globulin 4.0 g/dL (2.1-4.2) 01/03/23 12:21 Albumin/Globulin Ratio 0.9 (1.0-2.2) L 01/03/23 12:21 Lipase 31 U/L (22-51) 01/03/23 12:21 Nasal Adenovirus (PCR) NOT DETECTED 01/03/23 12:25 Nasal B. parapertussis DNA (PCR) NOT DETECTED 01/03/23 12:25 Nasal Coronavir 229E PCR NOT DETECTED 01/03/23 12:25 Nasal Coronavir HKU1 PCR NOT DETECTED 01/03/23 12:25 Nasal Coronavir NL63 PCR NOT DETECTED 01/03/23 12:25 Nasal Coronavir OC43 PCR NOT DETECTED 01/03/23 12:25 Nasal Enterovir/Rhinovir PCR NOT DETECTED 01/03/23 12:25 Nasal Influenza B PCR NOT DETECTED 01/03/23 12:25 Nasal Influenza A PCR NOT DETECTED 01/03/23 12:25 Nasal Parainfluen 1 PCR NOT DETECTED 01/03/23 12:25 Nasal Parainfluen 2 PCR NOT DETECTED 01/03/23 12:25 Nasal Parainfluen 3 PCR NOT DETECTED 01/03/23 12:25 Nasal Parainfluen 4 PCR NOT DETECTED 01/03/23 12:25 Nasal RSV (PCR) NOT DETECTED 01/03/23 12:25 Nasal B.pertussis DNA PCR NOT DETECTED 01/03/23 12:25 Nasal C.pneumoniae (PCR) NOT DETECTED 01/03/23 12:25 Ankit Human Metapneumo PCR NOT DETECTED 01/03/23 12:25 Nasal M.pneumoniae (PCR) NOT DETECTED 01/03/23 12:25 Nasal SARS-CoV-2 (PCR) NOT DETECTED 01/03/23 12:25 - Procedures Procedures: Procedures CATARAC PHACOEMULS/ASPIR (04/27/14) INSERT LENS AT CATAR EXT (04/27/14) INSERTION OF INFUSION DEV INTO SUP VENA CAVA, PERC APPROACH (06/02/22) REPLACEMENT OF LEFT LENS WITH SYNTH SUB, PERC APPROACH (09/25/16)
[2023-01-04] MEDS: carvediloL 12.5 MG TABLET PO SCH (17:46)
[2023-01-04] MEDS ORDERED: METOPROLOL 5 MG/5 ML VIAL IVP STA (18:24)
[2023-01-04] MEDS: MIN OIL/DIMETHICON/COCONUT OIL 92 GM TUBE TOP PRN (21:08)
[2023-01-04] MEDS: ZINC OXIDE 20% OINT 30 GM TUBE TOP PRN (21:08)
[2023-01-04] MEDS: AMITRIPTYLINE 25 MG TABLET PO SCH (21:09)
[2023-01-04] MEDS: ATORVASTATIN 10 MG TABLET PO SCH (21:10)
[2023-01-05] MEDS: SODIUM CHLORIDE FLUSH 0.9% 10 ML SYRINGE IVP SCH ×4 (02:17→23:54)
[2023-01-05 05:48] LABS: BASOPHILS % (AUTO) 0.2 %; HCT - HEMATOCRIT 39.2 % (37.0-47.0); HGB - HEMOGLOBIN 12.4 g/dL (12.0-16.0); LYMPHOCYTES # (AUTO) 0.8 10^3/uL (1.5-3.5); LYMPHOCYTES % (AUTO) 5.9 %; MEAN CORPUSCULAR HEMOGLOBIN 30.5 pg (27.0-31.0); MEAN CORPUSCULAR HGB CONC 31.6 g/dL (32.0-36.0); MEAN CORPUSCULAR VOLUME 96.3 fL (81.0-99.0); MEAN PLATELET VOLUME 11.8 fL (7.9-10.8); MONOCYTES # (AUTO) 0.6 10^3/uL (0.0-1.0); MONOCYTES % (AUTO) 4.2 %; NEUTROPHILS # (AUTO) 11.6 10^3/uL (1.5-6.6); NEUTROPHILS % (AUTO) 88.5 %; PLT - PLATELET COUNT 249 10^3/uL (130-450); RED BLOOD COUNT 4.07 10^6/uL (4.20-5.40); RED CELL DISTRIBUTION WIDTH 13.4 % (12.0-15.0); WHITE BLOOD COUNT 13.1 x10^3/uL (4.8-10.8)
[2023-01-05 05:57] LABS: CREATININE 0.8 mg/dL (0.4-1.0); MAGNESIUM 2.1 mg/dL (1.7-2.8); POTASSIUM 3.4 mmol/L (3.5-5.0)
[2023-01-05] MEDS: PANTOPRAZOLE 40 MG TABLET PO SCH (06:22)
[2023-01-05] MEDS: FUROSEMIDE 20 MG/2 ML VIAL IVP SCH ×2 (06:22→14:16)
[2023-01-05] MEDS: PREGABALIN 25 MG CAPSULE PO SCH ×3 (06:22→22:29)
[2023-01-05] MEDS: BUDESONIDE 0.5 MG/2 ML NEB INH SCH ×2 (07:07→18:31)
[2023-01-05] MEDS: IPRATROPIUM/ALBUTEROL 3 ML NEB INH SCH ×4 (07:07→18:32)
[2023-01-05] MEDS ORDERED: carvediloL 12.5 MG TABLET PO SCH (08:00)
[2023-01-05] MEDS: methylPREDNISolone SUCCINATE 40 MG/ML VIAL IVP SCH ×3 (08:26→21:02)
[2023-01-05] MEDS: POTASSIUM CHLORIDE 20 MEQ TABLET PO SCH (08:27)
[2023-01-05] MEDS: MULTIVITAMIN W/MINERALS TABLET PO SCH (08:27)
[2023-01-05] MEDS: carvediloL 12.5 MG TABLET PO SCH ×2 (08:27→18:05)
[2023-01-05] MEDS: AMOX/CLAV 875 MG/125 MG TABLET PO SCH ×2 (08:33→21:01)
[2023-01-05] MEDS: ASPIRIN EC 81 MG TABLET PO SCH (08:33)
[2023-01-05] MEDS: LOSARTAN 50 MG TABLET PO SCH (08:34)
[2023-01-05] MEDS: CALCIUM CITRATE 250 MG TABLET PO SCH (08:34)
[2023-01-05] MEDS: guaiFENesin 600 MG TABLET PO SCH ×2 (08:34→21:02)
[2023-01-05] MEDS: CHOLECALCIFEROL 400 UNIT TABLET PO SCH (08:34)
[2023-01-05] MEDS: ENOXAPARIN 40 MG/0.4 ML SYRINGE SUBQ SCH ×2 (08:36→21:01)
[2023-01-05] MEDS ORDERED: ENOXAPARIN 40 MG/0.4 ML SYRINGE SUBQ SCH (09:00)
--- NOTE | 2023-01-05 09:05 | PROVIDER PROGRESS NOTE ---
Assessment/Plan - Problem List (1) Acute and chronic respiratory failure with hypoxia Assessment/Plan: This is multifactorial: from acute bronchitis, COPD exacerbation and CHF exacerbation. She normally uses 2 L O2 at home and she came in hypoxic while on her 2 L of O2. She needed 3 L O2 over night. Today at rest she is back down to 2 L O2. Plan: Cont supplemental O2 with target O2 saturations greater than 88% Cont her home BiPAP machine to be used while she is here Cont to treat each of the underlying problems. On the day of discharge she will need a repeat oximetry test, to see if she needs different home O2 ordered. (2) Bronchitis with acute wheezing Conclusion/Plan: She has not made a sputum sample to send for cx I started her on empiric po Augmentin. Plan: Await sputum sample to send for culture. Cont Solu-Medrol and I will start weaning down, from 80 mg TID to 40 mg TID today Cont DuoNeb treatments scheduled 4 times daily and prn q4 hours Cont scheduled Mucinex for pulmonary toilet I will add Montelukast qpm I will order chest PT TID with RT (3) CHF exacerbation Conclusion/Plan: Troponins were checked this admission, and she ruled out for an CO, as the cause of this CHF exacerbation She claims that her caregivers who prepare her meals "do not follow a low salt diet". She has anasarca with 4+ pitting edema all the way to her hips and her abdominal wall Since admission despite getting iv BID Lasix, she has only (-) fluid balance of 300 cc. I reviewed her I's and O's today, and she drinks 2300 cc of fluids a day. Plan: Cont IV twice daily Lasix and follow her I's and O's, daily weights, electr olytes and magnesium. With this amount of anasarca, there is probably more than 10 pounds of water weight to diurese off. I added a 2000 cc/day total fluid restriction Continue her usual cardiac medications I ordered an Echo w/ Definity, to rechecl LVEF and RVEF. (Echo ordered 2 days ago but we have no auto body technician here until tomorrow). For the last several years her Echoes have shown LV diastolic heart failure, which she may still have but I suspect that she now may have Cor pulmonale, given this much anasarca, since in the past the RV was reported to be normal size with normal function. (4) Anasarca She stated that she thought "this is the usual amount of leg edema she always has on exam". But this is anasarca with 4+ pitting edema all the way to her hips and her abdominal wall. I suspect she has >10 lbs of fluid to diurese off. In the past her RV was reported to be normal size with normal function on Echo, but I suspect that she now has Cor pulmonale, given this much anasarca. Since admission despite being on iv BID Lasix, she has only (-) fluid balance of 300 cc. I reviewed her I's and O's, and she drinks 2300 cc of fluids a day. Also, she claims that "her caregivers who prepare her meals do not follow a low salt diet". Plan: Cont IV twice daily Lasix and follow her I's and O's, daily weights I added a 2000 cc/day total fluid restriction, it may even need to be stricter I will order Manager Payer consult for CHF teaching (5) Paroxysmal Afib On 01/04 her telemetry showed she went into Afib, first with a controlled HR, then Afib with RVR at 120-140 sustained. I had to give Lopressor 5 mg iv x1. She has had Parox Afib before, per records. I suspect we saw this A-fib with RVR because she missed 2 doses, therefore 24 hours, of her Carvedilol. Plan: I have resumed her usual Coreg twice daily dose, for heart rate control Her CHADS2 score is 1 or 2, so she needs to be at least on an asprin daily, for stroke prophylaxis. And she is on 1 baby aspirin daily, which is being continued. (6) Morbid obesity with BMI of 45.0-49.9, adult Conclusion/Plan: This complicates most of her care. She has become sedentary, only wheelchair- bound and bedbound and needs caregivers. (During a previous hospitalization it was documented that she would rather defecate into a diaper then go on to a commode). She has obesity hypoventilation syndrome Because of her obesity-hypoventilation syndrome she was to be on a CPAP machine and I ordered her home CPAP machine to be used here Plan: Will order OOB to chair with a sera lift Depending on if she wants to try to stand to pivot and get into a wheelchair, I will order PT and OT - Current Meds Current Meds: Current Medications Generic Name Dose Route Start Last Admin Trade Name Parveen PRN Reason Stop Dose Admin Acetaminophen 650 mg 01/03/23 17:19 01/04/23 08:47 Acetaminophen 325 Mg Tablet PO 650 mg Q4HR PRN Administration Pain 1 to 4, or Fever Albuterol/Ipratropium 3 ml 01/03/23 19:00 01/05/23 07:07 Ipratropium/Albuterol 3 Ml Neb INH 3 ml RTQID TAI Administration Amitriptyline HCl 50 mg 01/04/23 21:00 01/04/23 21:09 Amitriptyline 25 Mg Tablet PO 50 mg QPM TAI Administration Amoxicillin/Clavulanate Potassium 1 tab 01/04/23 10:09 01/05/23 08:33 Amox/Clav 875 Mg/125 Mg Tablet PO 1 tab BID TAI Administration Aspirin 81 mg 01/05/23 09:00 01/05/23 08:33 Aspirin Ec 81 Mg Tablet PO 81 mg DAILY TAI Administration Atorvastatin Calcium 20 mg 01/04/23 21:00 01/04/23 21:10 Atorvastatin 10 Mg Tablet PO 20 mg QPM TAI Administration Budesonide 0.5 mg 01/03/23 19:00 01/05/23 07:07 Budesonide 0.5 Mg/2 Ml Neb INH 0.5 mg RTBID TAI Administration Calcium Citrate 500 mg 01/05/23 09:00 01/05/23 08:34 Calcium Citrate 250 Mg Tablet PO 500 mg DAILY TAI Administration Carvedilol 12.5 mg 01/04/23 17:21 01/05/23 08:27 Carvedilol 12.5 Mg Tablet PO 12.5 mg BIDWM TAI Administration Cholecalciferol 400 unit 01/05/23 09:00 01/05/23 08:34 Cholecalciferol 400 Unit Tablet PO 400 unit DAILY TIA Administration Furosemide 20 mg 01/04/23 06:00 01/05/23 06:22 Furosemide 20 Mg/2 Ml Vial IVP 20 mg BIDDIURETIC TAI Administration Guaifenesin 600 mg 01/03/23 21:00 01/05/23 08:34 Guaifenesin 600 Mg Tablet PO 600 mg BID TAI Administration Losartan Potassium 25 mg 01/05/23 09:00 01/05/23 08:34 Losartan 50 Mg Tablet PO 25 mg DAILY TAI Administration Mineral Oil 1 applic 01/03/23 21:22 01/04/23 21:08 Min Oil/Dimethicon/Coconut Oil 92 Gm Tube TOP 1 applic PRN PRN Administration Skin Care Multi-Ingredient Ointment 1 applic 01/04/23 13:14 01/04/23 21:08 Zinc Oxide 20% Oint 30 Gm Tube TOP 1 applic PRN PRN Administration Skin Care Multivitamins/Minerals 1 tab 01/05/23 08:00 01/05/23 08:27 Multivitamin W/Minerals Tablet PO 1 tab DAILYWM TAI Administration Pantoprazole Sodium 40 mg 01/05/23 07:00 01/05/23 06:22 Pantoprazole 40 Mg Tablet PO 40 mg QDAC TAI Administration Potassium Chloride 20 meq 01/04/23 11:00 01/05/23 08:27 Potassium Chloride 20 Meq Tablet PO 20 meq DAILYWM TAI Administration Pregabalin 50 mg 01/04/23 14:00 01/05/23 06:22 Pregabalin 25 Mg Capsule PO 50 mg TID TAI Administration Sodium Chloride 10 ml 01/04/23 01:00 01/05/23 08:26 Sodium Chloride Flush 0.9% 10 Ml Syringe IVP 10 ml 0100,0900,1700 TAI Administration - Lab Result Fish Bone Diagrams: 01/05/23 05:20 01/05/23 05:20 - Additional Planning My Orders: My Active Orders 01/04/23 10:09 Amox/Clav 875/125 [Augmentin 875/125 Tab] 1 tab PO BID 01/04/23 11:00 Potassium Chloride [K-Dur] 20 meq PO DAILYWM 01/04/23 13:14 Carboxymethylcellulose 1% Opht [Refresh 1% Ophth Drops] 1 drops EACHEYE Q4H PRN HYDROcodone/ACET 7.5/325 [Bond 7.5/325] 1 tab PO BID PRN Zinc Oxide 20% Oint [Zinc Oxide] 1 applic TOP PRN PRN 01/04/23 13:33 methocarbamoL [Robaxin] 750 mg PO BID PRN 01/04/23 14:00 Pregabalin [Lyrica] 50 mg PO TID 01/04/23 17:21 carvediloL [Coreg] 12.5 mg PO BIDWM 01/04/23 21:00 Amitriptyline [Elavil] 50 mg PO QPM Atorvastatin [Lipitor] 20 mg PO QPM 01/05/23 07:00 Pantoprazole [Protonix] 40 mg PO QDAC 01/05/23 08:00 Multivitamin W/Minerals [Theragran M] 1 tab PO DAILYWM 01/05/23 08:46 CPT - Chest Physical Therapy [RC] TID Miscellaenous Nursing Order [RC] QSHIFT 01/05/23 09:00 Aspirin EC [Ecotrin] 81 mg PO DAILY Calcium Citrate 500 mg PO DAILY Cholecalciferol [Vitamin D3] 400 unit PO DAILY Enoxaparin [Lovenox] 40 mg SUBQ BID Losartan [Cozaar] 25 mg PO DAILY 01/05/23 Lunch DIET [Low Sodium Diet] [DIET] 01/05/23 14:00 methylPREDNISolone SUCCINATE [SOLU-Medrol (40MG VIAL)] 40 mg IVP TID 01/05/23 21:00 Montelukast [Singulair] 10 mg PO QPM 01/06/23 05:00 BMP - BASIC METABOLIC PANEL [CHEM] DAILYLAB CALCIUM [CHEM] DAILYLAB CBC - COMP BLD CT W/AUTO DIFF [HEME] DAILYLAB MAGNESIUM [CHEM] DAILYLAB 01/06/23 07:00 Echo Transthoracic w/Definity [ECHO] Routine 01/07/23 05:00 BMP - BASIC METABOLIC PANEL [CHEM] DAILYLAB CBC - COMP BLD CT W/AUTO DIFF [HEME] DAILYLAB MAGNESIUM [CHEM] DAILYLAB 01/08/23 05:00 BMP - BASIC METABOLIC PANEL [CHEM] DAILYLAB CBC - COMP BLD CT W/AUTO DIFF [HEME] DAILYLAB MAGNESIUM [CHEM] DAILYLAB Subjective - Subjective Patient Reports: Feeling Better (Much less congested and less coughing) Objective Vital Signs: Vital Signs - 24 hr 01/04/23 01/04/23 01/04/23 11:19 13:00 15:21 Temperature 36.5 C Heart Rate 68 77 Heart Rate [ 72 Brachial] Respiratory 16 20 17 Rate Blood Pressure Blood Pressure 138/60 H [Left Brachial artery] O2 Saturation 95 If not protocol 2 2 3 : Oxygen Flow, liters/minute 01/04/23 01/04/23 01/04/23 15:35 18:55 19:00 Temperature 36.8 C Heart Rate 127 H Heart Rate [ 76 109 H Brachial] Respiratory 14 18 Rate Blood Pressure 117/73 Blood Pressure 139/68 H 120/66 [Left Brachial artery] O2 Saturation 95 If not protocol 2 2 : Oxygen Flow, liters/minute 01/04/23 01/04/23 01/04/23 19:05 19:10 19:15 Temperature Heart Rate Heart Rate [ 120 H 118 H 117 H Brachial] Respiratory Rate Blood Pressure Blood Pressure 131/67 H 111/73 126/59 L [Left Brachial artery] O2 Saturation If not protocol : Oxygen Flow, liters/minute 01/04/23 01/04/23 01/04/23 19:30 19:45 20:00 Temperature Heart Rate Heart Rate [ 121 H 110 H 107 H Brachial] Respiratory Rate Blood Pressure Blood Pressure 115/51 L 118/80 128/86 H [Left Brachial artery] O2 Saturation If not protocol : Oxygen Flow, liters/minute 01/04/23 01/05/23 01/05/23 20:09 01:26 05:00 Temperature 37.2 C 36.0 C L 36.2 C L Heart Rate Heart Rate [ 107 H 100 73 Brachial] Respiratory 24 24 24 Rate Blood Pressure Blood Pressure 128/86 H 122/70 134/93 H [Left Brachial artery] O2 Saturation 96 95 95 If not protocol 2 2 2 : Oxygen Flow, liters/minute 01/05/23 07:26 Temperature Heart Rate 72 Heart Rate [ Brachial] Respiratory 18 Rate Blood Pressure Blood Pressure [Left Brachial artery] O2 Saturation If not protocol 2 : Oxygen Flow, liters/minute Oxygen O2 Source [Without Activity] Nasal cannula O2 Source [With Activity] Nasal cannula O2 Source CPAP Oxygen Flow Rate 3 I&O (Last 24 Hrs): Intake and Output Totals x24h 01/03/23 01/04/23 01/05/23 23:59 23:59 23:59 Intake Total 150 2330 50 Output Total 300 2150 Balance -150 180 50 General: Alert, Oriented x3, Other (Disheveled) HEENT: Atraumatic, Mucous membr. moist/pink, Other (wearing O2 per n.c.) Neck: Supple, Other (Cannot evaluate JVP due to morbid obese) Neuro: Alert, Non Focal Cardiovascular: No murmurs (Distant heart sounds due to morbid obesity) Respiratory: Rales, Rhonchi (No more wheezes are heard) Abdomen: Other (Tense and distended, not tender. Obese with a pannus.) Extremities: No clubbing, Other (4+ pitting edema to the level of her lower abdomen) - Results Results: Laboratory Results WBC 13.1 x10^3/uL (4.8-10.8) H 01/05/23 05:20 RBC 4.07 10^6/uL (4.20-5.40) L 01/05/23 05:20 Hgb 12.4 g/dL (12.0-16.0) 01/05/23 05:20 Hct 39.2 % (37.0-47.0) 01/05/23 05:20 MCV 96.3 fL (81.0-99.0) 01/05/23 05:20 MCH 30.5 pg (27.0-31.0) 01/05/23 05:20 MCHC 31.6 g/dL (32.0-36.0) L 01/05/23 05:20 RDW 13.4 % (12.0-15.0) 01/05/23 05:20 Plt Count 249 10^3/uL (130-450) 01/05/23 05:20 MPV 11.8 fL (7.9-10.8) H 01/05/23 05:20 Neut # (Auto) 11.6 10^3/uL (1.5-6.6) H 01/05/23 05:20 Lymph # (Auto) 0.8 10^3/uL (1.5-3.5) L 01/05/23 05:20 Mitchell # (Auto) 0.6 10^3/uL (0.0-1.0) 01/05/23 05:20 Eos # (Auto) 0.0 10^3/uL (0.0-0.7) 01/05/23 05:20 Baso # (Auto) 0.0 10^3/uL (0.0-0.1) 01/05/23 05:20 Absolute Nucleated RBC 0.00 x10^3/uL 01/05/23 05:20 Nucleated RBC % 0.0 /100WBC 01/05/23 05:20 Sodium 141 mmol/L (135-145) 01/05/23 05:20 Potassium 3.4 mmol/L (3.5-5.0) L 01/05/23 05:20 Chloride 97 mmol/L (101-111) L 01/05/23 05:20 Carbon Dioxide 35 mmol/L (21-32) H 01/05/23 05:20 Anion Gap 9.0 (6-13) 01/05/23 05:20 BUN 27 mg/dL (6-20) H 01/05/23 05:20 Creatinine 0.8 mg/dL (0.4-1.0) 01/05/23 05:20 Estimated GFR (MDRD) 69 (>89) L 01/05/23 05:20 Glucose 196 mg/dL (70-100) H 01/05/23 05:20 Calcium 10.0 mg/dL (8.5-10.3) 01/05/23 05:20 Magnesium 2.1 mg/dL (1.7-2.8) 01/05/23 05:20 Total Bilirubin 0.6 mg/dL (0.2-1.0) 01/03/23 12:21 AST 17 IU/L (10-42) 01/03/23 12:21 ALT 19 IU/L (10-60) 01/03/23 12:21 Alkaline Phosphatase 101 IU/L (42-121) 01/03/23 12:21 Troponin I High Sens 23.4 ng/L (2.3-14.8) H* 01/03/23 18:45 B-Natriuretic Peptide 328 pg/mL (5-100) H 01/04/23 05:06 Total Protein 7.6 g/dL (6.7-8.2) 01/03/23 12:21 Albumin 3.6 g/dL (3.2-5.5) 01/03/23 12:21 Globulin 4.0 g/dL (2.1-4.2) 01/03/23 12:21 Albumin/Globulin Ratio 0.9 (1.0-2.2) L 01/03/23 12:21 Lipase 31 U/L (22-51) 01/03/23 12:21 Nasal Adenovirus (PCR) NOT DETECTED 01/03/23 12:25 Nasal B. parapertussis DNA (PCR) NOT DETECTED 01/03/23 12:25 Nasal Coronavir 229E PCR NOT DETECTED 01/03/23 12:25 Nasal Coronavir HKU1 PCR NOT DETECTED 01/03/23 12:25 Nasal Coronavir NL63 PCR NOT DETECTED 01/03/23 12:25 Nasal Coronavir OC43 PCR NOT DETECTED 01/03/23 12:25 Nasal Enterovir/Rhinovir PCR NOT DETECTED 01/03/23 12:25 Nasal Influenza B PCR NOT DETECTED 01/03/23 12:25 Nasal Influenza A PCR NOT DETECTED 01/03/23 12:25 Nasal Parainfluen 1 PCR NOT DETECTED 01/03/23 12:25 Nasal Parainfluen 2 PCR NOT DETECTED 01/03/23 12:25 Nasal Parainfluen 3 PCR NOT DETECTED 01/03/23 12:25 Nasal Parainfluen 4 PCR NOT DETECTED 01/03/23 12:25 Nasal RSV (PCR) NOT DETECTED 01/03/23 12:25 Nasal B.pertussis DNA PCR NOT DETECTED 01/03/23 12:25 Nasal C.pneumoniae (PCR) NOT DETECTED 01/03/23 12:25 Ankit Human Metapneumo PCR NOT DETECTED 01/03/23 12:25 Nasal M.pneumoniae (PCR) NOT DETECTED 01/03/23 12:25 Nasal SARS-CoV-2 (PCR) NOT DETECTED 01/03/23 12:25 - Procedures Procedures: Procedures CATARAC PHACOEMULS/ASPIR (04/27/14) INSERT LENS AT CATAR EXT (04/27/14) INSERTION OF INFUSION DEV INTO SUP VENA CAVA, PERC APPROACH (06/02/22) REPLACEMENT OF LEFT LENS WITH SYNTH SUB, PERC APPROACH (09/25/16)
[2023-01-05] MEDS: HYDROcod/ACETAM 7.5 MG/325 MG TABLET PO PRN ×2 (11:35→20:26)
[2023-01-05] MEDS: ZINC OXIDE 20% OINT 30 GM TUBE TOP PRN (12:15)
[2023-01-05] MEDS: SODIUM CHLORIDE FLUSH 0.9% 10 ML SYRINGE IVP PRN (14:17)
[2023-01-05] MEDS: ACETAMINOPHEN 325 MG TABLET PO PRN (20:26)
[2023-01-05] MEDS: ATORVASTATIN 10 MG TABLET PO SCH (21:01)
[2023-01-05] MEDS: MONTELUKAST 10 MG TABLET PO SCH (21:02)
[2023-01-05] MEDS: AMITRIPTYLINE 25 MG TABLET PO SCH (21:06)
[2023-01-05] MEDS: METOPROLOL 5 MG/5 ML VIAL IVP PRN (23:48)
[2023-01-06] MEDS: IPRATROPIUM/ALBUTEROL 3 ML NEB INH SCH ×4 (06:16→21:24)
[2023-01-06] MEDS: BUDESONIDE 0.5 MG/2 ML NEB INH SCH ×2 (06:17→21:23)
[2023-01-06] MEDS: PREGABALIN 25 MG CAPSULE PO SCH ×3 (06:17→21:00)
[2023-01-06] MEDS: PANTOPRAZOLE 40 MG TABLET PO SCH (06:17)
[2023-01-06] MEDS: methylPREDNISolone SUCCINATE 40 MG/ML VIAL IVP SCH ×3 (06:18→21:00)
[2023-01-06] MEDS: FUROSEMIDE 20 MG/2 ML VIAL IVP SCH ×2 (06:18→14:09)
[2023-01-06] MEDS: AMOX/CLAV 875 MG/125 MG TABLET PO SCH ×2 (08:13→20:58)
[2023-01-06] MEDS: CHOLECALCIFEROL 400 UNIT TABLET PO SCH (08:14)
[2023-01-06] MEDS: carvediloL 12.5 MG TABLET PO SCH ×2 (08:14→20:58)
[2023-01-06] MEDS: LOSARTAN 50 MG TABLET PO SCH (08:14)
[2023-01-06] MEDS: MULTIVITAMIN W/MINERALS TABLET PO SCH (08:16)
[2023-01-06] MEDS: guaiFENesin 600 MG TABLET PO SCH ×2 (08:16→20:59)
[2023-01-06] MEDS: HYDROcod/ACETAM 7.5 MG/325 MG TABLET PO PRN (08:17)
[2023-01-06] MEDS: POTASSIUM CHLORIDE 20 MEQ TABLET PO SCH (08:17)
[2023-01-06] MEDS: CALCIUM CITRATE 250 MG TABLET PO SCH (08:18)
[2023-01-06] MEDS: ASPIRIN EC 81 MG TABLET PO SCH (08:18)
[2023-01-06] MEDS: ENOXAPARIN 40 MG/0.4 ML SYRINGE SUBQ SCH ×2 (08:19→20:59)
[2023-01-06] MEDS: SODIUM CHLORIDE FLUSH 0.9% 10 ML SYRINGE IVP SCH ×3 (08:20→22:52)
[2023-01-06 08:49] LABS: BASOPHILS % (AUTO) 0.2 %; HCT - HEMATOCRIT 42.6 % (37.0-47.0); HGB - HEMOGLOBIN 13.2 g/dL (12.0-16.0); LYMPHOCYTES # (AUTO) 0.7 10^3/uL (1.5-3.5); MEAN CORPUSCULAR HEMOGLOBIN 30.1 pg (27.0-31.0); MEAN PLATELET VOLUME 11.3 fL (7.9-10.8); MONOCYTES # (AUTO) 0.6 10^3/uL (0.0-1.0); MONOCYTES % (AUTO) 5.1 %; NEUTROPHILS # (AUTO) 10.1 10^3/uL (1.5-6.6); NEUTROPHILS % (AUTO) 86.1 %; PLT - PLATELET COUNT 281 10^3/uL (130-450); RED BLOOD COUNT 4.39 10^6/uL (4.20-5.40); RED CELL DISTRIBUTION WIDTH 13.7 % (12.0-15.0); WHITE BLOOD COUNT 11.7 x10^3/uL (4.8-10.8)
[2023-01-06 09:06] LABS: CALCIUM 9.8 mg/dL (8.5-10.3); CREATININE 0.8 mg/dL (0.4-1.0); MAGNESIUM 2.2 mg/dL (1.7-2.8); POTASSIUM 3.7 mmol/L (3.5-5.0)
[2023-01-06] MEDS: INSULIN LISPRO 300 UNIT/3 ML PEN SUBQ SCH ×3 (12:17→20:59)
--- NOTE | 2023-01-06 17:30 | PROVIDER PROGRESS NOTE ---
Assessment/Plan - Problem List (1) Acute and chronic respiratory failure with hypoxia Assessment/Plan: Assessment/Plan: This is multifactorial: from acute bronchitis, COPD exacerbation and CHF exacerbation. She normally uses 2 L O2 at home and she came in hypoxic while on her 2 L of O2. She needed 3 L O2 over night. Today at rest she is back down to 2 L O2. Plan: Cont supplemental O2 with target O2 saturations greater than 88% Cont her home BiPAP machine to be used while she is here Cont to treat each of the underlying problems. On the day of discharge she will need a repeat oximetry test, to see if she needs different home O2 ordered. (2) Bronchitis with acute wheezing Conclusion/Plan: She has not made a sputum sample to send for cx I started her on empiric po Augmentin. Plan: Await sputum sample to send for culture. Cont Solu-Medrol and I will start weaning down, from 80 mg TID to 40 mg TID today Cont DuoNeb treatments scheduled 4 times daily and prn q4 hours Cont scheduled Mucinex for pulmonary toilet I will add Montelukast qpm I will order chest PT TID with RT (3) CHF exacerbation Conclusion/Plan: Troponins were checked this admission, and she ruled out for an IA, as the cause of this CHF exacerbation She claims that her caregivers who prepare her meals "do not follow a low salt diet". She has anasarca with 4+ pitting edema all the way to her hips and her abdominal wall Since admission despite getting iv BID Lasix, she has only (-) fluid balance of 300 cc. I reviewed her I's and O's today, and she drinks 2300 cc of fluids a day. Plan: Cont IV twice daily Lasix and follow her I's and O's, daily weights, electrolytes and magnesium. With this amount of anasarca, there is probably more than 10 pounds of water weight to diurese off. I added a 2000 cc/day total fluid restriction Continue her usual cardiac medications I ordered an Echo w/ [facility], to rechecl LVEF and RVEF. (Echo ordered 2 days ago but we have no electrical engineering technician here until tomorrow). For the last several years her Echoes have shown LV diastolic heart failure, which she may still have but I suspect that she now may have Cor pulmonale, given this much anasarca, since in the past the RV was reported to be normal size with normal function. January 06, 2023-have increased Lasix to 40 mg IV twice daily and monitor I's and O's. She has not had adequate output with 20 mg IV twice daily. Echocardiogram showed 1. Overall left ventricular systolic function is lower limits of normal with an ejection fraction of 50 to 55%. 2. Right ventricular systolic function is mildly impaired. 3. No concerning cardiac valve disease noted. (4) Anasarca She stated that she thought "this is the usual amount of leg edema she always has on exam". But this is anasarca with 4+ pitting edema all the way to her hips and her abdominal wall. I suspect she has >10 lbs of fluid to diurese off. In the past her RV was reported to be normal size with normal function on Echo, but I suspect that she now has Cor pulmonale, given this much anasarca. Since admission despite being on iv BID Lasix, she has only (-) fluid balance of 300 cc. I reviewed her I's and O's, and she drinks 2300 cc of fluids a day. Also, she claims that "her caregivers who prepare her meals do not follow a low salt diet". Plan: Cont IV twice daily Lasix and follow her I's and O's, daily weights I added a 2000 cc/day total fluid restriction, it may even need to be stricter I will order Software Trainer consult for CHF teaching (5) Paroxysmal Afib On 01/04 her telemetry showed she went into Afib, first with a controlled HR, then Afib with RVR at 120-140 sustained. I had to give Lopressor 5 mg iv x1. She has had Parox Afib before, per records. I suspect we saw this A-fib with RVR because she missed 2 doses, therefore 24 hours, of her Carvedilol. Plan: I have resumed her usual Coreg twice daily dose, for heart rate control Her CHADS2 score is 1 or 2, so she needs to be at least on an asprin daily, for stroke prophylaxis. And she is on 1 baby aspirin daily, which is being continued. (6) Morbid obesity with BMI of 45.0-49.9, adult Conclusion/Plan: This complicates most of her care. She has become sedentary, only wheelchair- bound and bedbound and needs caregivers. (During a previous hospitalization it was documented that she would rather defecate into a diaper then go on to a commode). She has obesity hypoventilation syndrome Because of her obesity-hypoventilation syndrome she was to be on a CPAP machine and I ordered her home CPAP machine to be used here Plan: Will order OOB to chair with a sera lift Depending on if she wants to try to stand to pivot and get into a wheelchair, I will order PT a - Current Meds Current Meds: Current Medications Generic Name Dose Route Start Last Admin Trade Name Freq PRN Reason Stop Dose Admin Acetaminophen 650 mg 01/03/23 17:19 01/05/23 20:26 Acetaminophen 325 Mg Tablet PO 650 mg Q4HR PRN Administration Pain 1 to 4, or Fever Hydrocodone Bitart/Acetaminophen 1 tab 01/04/23 13:14 01/06/23 08:17 Hydrocod/Acetam 7.5 Mg/325 Mg Tablet PO 1 tab BID PRN Administration PAIN 5-7 Albuterol/Ipratropium 3 ml 01/03/23 19:00 01/06/23 15:46 Ipratropium/Albuterol 3 Ml Neb INH 3 ml RTQID TAI Administration Amitriptyline HCl 50 mg 01/04/23 21:00 01/05/23 21:06 Amitriptyline 25 Mg Tablet PO 50 mg QPM TAI Administration Amoxicillin/Clavulanate Potassium 1 tab 01/04/23 10:09 01/06/23 08:13 Amox/Clav 875 Mg/125 Mg Tablet PO 1 tab BID TAI Administration Aspirin 81 mg 01/05/23 09:00 01/06/23 08:18 Aspirin Ec 81 Mg Tablet PO 81 mg DAILY TAI Administration Atorvastatin Calcium 20 mg 01/04/23 21:00 01/05/23 21:01 Atorvastatin 10 Mg Tablet PO 20 mg QPM TAI Administration Budesonide 0.5 mg 01/03/23 19:00 01/06/23 06:17 Budesonide 0.5 Mg/2 Ml Neb INH 0.5 mg RTBID TAI Administration Calcium Citrate 500 mg 01/05/23 09:00 01/06/23 08:18 Calcium Citrate 250 Mg Tablet PO 500 mg DAILY TAI Administration Cholecalciferol 400 unit 01/05/23 09:00 01/06/23 08:14 Cholecalciferol 400 Unit Tablet PO 400 unit DAILY TAI Administration Enoxaparin Sodium 40 mg 01/05/23 21:00 01/06/23 08:19 Enoxaparin 40 Mg/0.4 Ml Syringe SUBQ 40 mg BID TAI Administration Furosemide 40 mg 01/06/23 09:40 01/06/23 14:09 Furosemide 20 Mg/2 Ml Vial IVP 40 mg BIDDIURETIC TAI Administration Guaifenesin 600 mg 01/03/23 21:00 01/06/23 08:16 Guaifenesin 600 Mg Tablet PO 600 mg BID TAI Administration Insulin Human Lispro 1 - 5 unit 01/06/23 12:00 01/06/23 12:17 Insulin Lispro 300 Unit/3 Ml Pen SUBQ 1 unit 0800,1200,1700,2100 TAI Administration Protocol Losartan Potassium 25 mg 01/05/23 09:00 01/06/23 08:14 Losartan 50 Mg Tablet PO 25 mg DAILY TAI Administration Methylprednisolone 40 mg 01/05/23 14:00 01/06/23 14:08 Methylprednisolone Succinate 40 Mg/Ml Vial IVP 40 mg TID TAI Administration Metoprolol Tartrate 5 mg 01/04/23 21:37 01/05/23 23:48 Metoprolol 5 Mg/5 Ml Vial IVP 5 mg Q6H PRN Administration Hypertensive Emergency Mineral Oil 1 applic 01/03/23 21:22 01/04/23 21:08 Min Oil/Dimethicon/Coconut Oil 92 Gm Tube TOP 1 applic PRN PRN Administration Skin Care Montelukast Sodium 10 mg 01/05/23 21:00 01/05/23 21:02 Montelukast 10 Mg Tablet PO 10 mg QPM TAI Administration Multi-Ingredient Ointment 1 applic 01/04/23 13:14 01/05/23 12:15 Zinc Oxide 20% Oint 30 Gm Tube TOP 1 applic PRN PRN Administration Skin Care Multivitamins/Minerals 1 tab 01/05/23 08:00 01/06/23 08:16 Multivitamin W/Minerals Tablet PO 1 tab DAILYWM TAI Administration Pantoprazole Sodium 40 mg 01/05/23 07:00 01/06/23 06:17 Pantoprazole 40 Mg Tablet PO 40 mg QDAC TAI Administration Potassium Chloride 20 meq 01/04/23 11:00 01/06/23 08:17 Potassium Chloride 20 Meq Tablet PO 20 meq DAILYWM TAI Administration Pregabalin 50 mg 01/04/23 14:00 01/06/23 14:09 Pregabalin 25 Mg Capsule PO 50 mg TID TAI Administration Sodium Chloride 10 ml 01/03/23 17:19 01/05/23 14:17 Sodium Chloride Flush 0.9% 10 Ml Syringe IVP 10 ml PRN PRN Administration NEEDED PER PROVIDER ORDERS Sodium Chloride 10 ml 01/04/23 01:00 01/06/23 08:20 Sodium Chloride Flush 0.9% 10 Ml Syringe IVP 5 ml 0100,0900,1700 TAI Administration - Lab Result Fish Bone Diagrams: 01/06/23 08:41 01/06/23 08:41 - Additional Planning My Orders: My Active Orders 01/06/23 11:34 Blood Glucose Checks - Eating [RC] 0800,1200,1700,2100 Initiate Hypoglycemia Protocol [RC] .protocol 01/06/23 12:00 Insulin Lispro [Humalog Kwikpen U-100] 1 - 5 unit SUBQ 0800,1200,1700,2100 01/07/23 05:00 HEMOGLOBIN A1c% [CHEM] DAILYLAB Subjective - Subjective Patient Reports: Other (Patient still notes significant fluid retention both arms and lower extremities up to lower abdominal wall) Objective Vital Signs: Vital Signs - 24 hr 01/05/23 01/05/23 01/05/23 18:33 21:00 23:38 Temperature 37.1 C 36.3 C L Heart Rate 90 Heart Rate [ 65 107 H Brachial] Respiratory 20 18 22 Rate Blood Pressure Blood Pressure 139/85 H 137/98 H [Left Brachial artery] O2 Saturation 92 92 If not protocol 2 2 2 : Oxygen Flow, liters/minute 01/05/23 01/06/23 01/06/23 23:48 00:00 00:05 Temperature Heart Rate Heart Rate [ 57 L Brachial] Respiratory Rate Blood Pressure 137/98 H Blood Pressure 106/59 L 121/47 L [Left Brachial artery] O2 Saturation If not protocol : Oxygen Flow, liters/minute 01/06/23 01/06/23 01/06/23 00:10 00:15 00:18 Temperature Heart Rate Heart Rate [ 79 87 Brachial] Respiratory Rate Blood Pressure 113/59 L Blood Pressure 117/55 L 113/59 L [Left Brachial artery] O2 Saturation If not protocol : Oxygen Flow, liters/minute 01/06/23 01/06/23 01/06/23 00:30 00:45 01:00 Temperature Heart Rate Heart Rate [ 69 85 72 Brachial] Respiratory Rate Blood Pressure Blood Pressure 113/56 L 113/50 L 125/92 H [Left Brachial artery] O2 Saturation If not protocol : Oxygen Flow, liters/minute 01/06/23 01/06/23 01/06/23 04:40 06:20 07:30 Temperature 36.4 C L 36.5 C Heart Rate 135 H Heart Rate [ 73 67 Brachial] Respiratory 18 20 20 Rate Blood Pressure Blood Pressure 123/49 L 145/87 H [Left Brachial artery] O2 Saturation 93 92 If not protocol 2 2 2 : Oxygen Flow, liters/minute 01/06/23 01/06/23 01/06/23 11:06 11:19 15:47 Temperature 36.4 C L Heart Rate 90 90 Heart Rate [ 114 H Brachial] Respiratory 18 20 20 Rate Blood Pressure Blood Pressure 135/78 H [Left Brachial artery] O2 Saturation 93 If not protocol 2 2 2 : Oxygen Flow, liters/minute 01/06/23 15:50 Temperature 36.3 C L Heart Rate Heart Rate [ 69 Brachial] Respiratory 20 Rate Blood Pressure Blood Pressure 121/97 H [Left Brachial artery] O2 Saturation 94 If not protocol 2 : Oxygen Flow, liters/minute Oxygen O2 Source [Without Activity] Nasal cannula O2 Source [With Activity] Nasal cannula O2 Source Nasal cannula Oxygen Flow Rate 3 I&O (Last 24 Hrs): Intake and Output Totals x24h 01/04/23 01/05/23 01/06/23 23:59 23:59 23:59 Intake Total 2330 1340 677 Output Total 2150 1350 300 Balance 180 -10 377 General: Alert, Oriented x3 HEENT: Atraumatic Neck: Supple Neuro: Alert Cardiovascular: Regular rate, Normal S1, Normal S2 Respiratory: No respiratory distress, Breath sounds nml Abdomen: Normal bowel sounds, Soft Comments/Notes: Patient has significant lower extremity edema up to lower abdominal wall. Patient also has edema of bilateral upper extremities. - Results Results: Laboratory Results WBC 11.7 x10^3/uL (4.8-10.8) H 01/06/23 08:41 RBC 4.39 10^6/uL (4.20-5.40) 01/06/23 08:41 Hgb 13.2 g/dL (12.0-16.0) 01/06/23 08:41 Hct 42.6 % (37.0-47.0) 01/06/23 08:41 MCV 97.0 fL (81.0-99.0) 01/06/23 08:41 MCH 30.1 pg (27.0-31.0) 01/06/23 08:41 MCHC 31.0 g/dL (32.0-36.0) L 01/06/23 08:41 RDW 13.7 % (12.0-15.0) 01/06/23 08:41 Plt Count 281 10^3/uL (130-450) 01/06/23 08:41 MPV 11.3 fL (7.9-10.8) H 01/06/23 08:41 Neut # (Auto) 10.1 10^3/uL (1.5-6.6) H 01/06/23 08:41 Lymph # (Auto) 0.7 10^3/uL (1.5-3.5) L 01/06/23 08:41 [place] # (Auto) 0.6 10^3/uL (0.0-1.0) 01/06/23 08:41 Eos # (Auto) 0.0 10^3/uL (0.0-0.7) 01/06/23 08:41 Baso # (Auto) 0.0 10^3/uL (0.0-0.1) 01/06/23 08:41 Absolute Nucleated RBC 0.00 x10^3/uL 01/06/23 08:41 Nucleated RBC % 0.0 /100WBC 01/06/23 08:41 Sodium 140 mmol/L (135-145) 01/06/23 08:41 Potassium 3.7 mmol/L (3.5-5.0) 01/06/23 08:41 Chloride 95 mmol/L (101-111) L 01/06/23 08:41 Carbon Dioxide 36 mmol/L (21-32) H 01/06/23 08:41 Anion Gap 9.0 (6-13) 01/06/23 08:41 BUN 36 mg/dL (6-20) H 01/06/23 08:41 Creatinine 0.8 mg/dL (0.4-1.0) 01/06/23 08:41 Estimated GFR (MDRD) 69 (>89) L 01/06/23 08:41 Glucose 201 mg/dL (70-100) H 01/06/23 08:41 POC Whole Bld Glucose 176 mg/dL (70 - 100) H 01/06/23 16:53 Calcium 9.8 mg/dL (8.5-10.3) 01/06/23 08:41 Magnesium 2.2 mg/dL (1.7-2.8) 01/06/23 08:41 Total Bilirubin 0.6 mg/dL (0.2-1.0) 01/03/23 12:21 AST 17 IU/L (10-42) 01/03/23 12:21 ALT 19 IU/L (10-60) 01/03/23 12:21 Alkaline Phosphatase 101 IU/L (42-121) 01/03/23 12:21 Troponin I High Sens 23.4 ng/L (2.3-14.8) H* 01/03/23 18:45 B-Natriuretic Peptide 328 pg/mL (5-100) H 01/04/23 05:06 Total Protein 7.6 g/dL (6.7-8.2) 01/03/23 12:21 Albumin 3.6 g/dL (3.2-5.5) 01/03/23 12:21 Globulin 4.0 g/dL (2.1-4.2) 01/03/23 12:21 Albumin/Globulin Ratio 0.9 (1.0-2.2) L 01/03/23 12:21 Lipase 31 U/L (22-51) 01/03/23 12:21 Nasal Adenovirus (PCR) NOT DETECTED 01/03/23 12:25 Nasal B. parapertussis DNA (PCR) NOT DETECTED 01/03/23 12:25 Nasal Coronavir 229E PCR NOT DETECTED 01/03/23 12:25 Nasal Coronavir HKU1 PCR NOT DETECTED 01/03/23 12:25 Nasal Coronavir NL63 PCR NOT DETECTED 01/03/23 12:25 Nasal Coronavir OC43 PCR NOT DETECTED 01/03/23 12:25 Nasal Enterovir/Rhinovir PCR NOT DETECTED 01/03/23 12:25 Nasal Influenza B PCR NOT DETECTED 01/03/23 12:25 Nasal Influenza A PCR NOT DETECTED 01/03/23 12:25 Nasal Parainfluen 1 PCR NOT DETECTED 01/03/23 12:25 Nasal Parainfluen 2 PCR NOT DETECTED 01/03/23 12:25 Nasal Parainfluen 3 PCR NOT DETECTED 01/03/23 12:25 Nasal Parainfluen 4 PCR NOT DETECTED 01/03/23 12:25 Nasal RSV (PCR) NOT DETECTED 01/03/23 12:25 Nasal B.pertussis DNA PCR NOT DETECTED 01/03/23 12:25 Nasal C.pneumoniae (PCR) NOT DETECTED 01/03/23 12:25 Ankit Human Metapneumo PCR NOT DETECTED 01/03/23 12:25 Nasal M.pneumoniae (PCR) NOT DETECTED 01/03/23 12:25 Nasal SARS-CoV-2 (PCR) NOT DETECTED 01/03/23 12:25 - Procedures Procedures: Procedures CATARAC PHACOEMULS/ASPIR (04/27/14) INSERT LENS AT CATAR EXT (04/27/14) INSERTION OF INFUSION DEV INTO SUP VENA CAVA, PERC APPROACH (06/02/22) REPLACEMENT OF LEFT LENS WITH SYNTH SUB, PERC APPROACH (09/25/16) ABX Reporting Has patient been on IV antibiotics over the past 48 hours?: No
[2023-01-06] MEDS: METOPROLOL 5 MG/5 ML VIAL IVP PRN ×2 (18:15→22:52)
[2023-01-06] MEDS: AMITRIPTYLINE 25 MG TABLET PO SCH (20:58)
[2023-01-06] MEDS: ATORVASTATIN 10 MG TABLET PO SCH (20:58)
[2023-01-06] MEDS: MONTELUKAST 10 MG TABLET PO SCH (20:59)
[2023-01-07] MEDS: SODIUM CHLORIDE FLUSH 0.9% 10 ML SYRINGE IVP SCH ×2 (00:28→06:08)
[2023-01-07] MEDS: HYDROcod/ACETAM 7.5 MG/325 MG TABLET PO PRN ×2 (00:33→08:24)
[2023-01-07] MEDS: methocarbamoL 500 MG TABLET PO PRN ×2 (05:11→14:47)
[2023-01-07] MEDS: ACETAMINOPHEN 325 MG TABLET PO PRN ×2 (05:12→14:46)
[2023-01-07] MEDS: PANTOPRAZOLE 40 MG TABLET PO SCH (06:07)
[2023-01-07] MEDS: methylPREDNISolone SUCCINATE 40 MG/ML VIAL IVP SCH ×4 (06:07→21:31)
[2023-01-07] MEDS: FUROSEMIDE 20 MG/2 ML VIAL IVP SCH ×2 (06:07→15:42)
[2023-01-07] MEDS: PREGABALIN 25 MG CAPSULE PO SCH ×3 (06:08→21:30)
[2023-01-07] MEDS: SODIUM CHLORIDE FLUSH 0.9% 10 ML SYRINGE IVP PRN (06:08)
[2023-01-07] MEDS: BUDESONIDE 0.5 MG/2 ML NEB INH SCH ×2 (07:53→18:17)
[2023-01-07] MEDS: IPRATROPIUM/ALBUTEROL 3 ML NEB INH SCH ×4 (07:53→18:17)
[2023-01-07] MEDS: INSULIN LISPRO 300 UNIT/3 ML PEN SUBQ SCH ×4 (08:21→21:40)
[2023-01-07] MEDS: ENOXAPARIN 40 MG/0.4 ML SYRINGE SUBQ SCH ×2 (08:22→21:31)
[2023-01-07] MEDS: AMOX/CLAV 875 MG/125 MG TABLET PO SCH ×2 (08:22→21:31)
[2023-01-07] MEDS: LOSARTAN 50 MG TABLET PO SCH (08:23)
[2023-01-07] MEDS: POTASSIUM CHLORIDE 20 MEQ TABLET PO SCH (08:23)
[2023-01-07] MEDS: guaiFENesin 600 MG TABLET PO SCH ×2 (08:23→21:31)
[2023-01-07] MEDS: CALCIUM CITRATE 250 MG TABLET PO SCH (08:23)
[2023-01-07] MEDS: CHOLECALCIFEROL 400 UNIT TABLET PO SCH (08:23)
[2023-01-07] MEDS: carvediloL 12.5 MG TABLET PO SCH ×2 (08:23→21:31)
[2023-01-07] MEDS: MULTIVITAMIN W/MINERALS TABLET PO SCH (08:23)
[2023-01-07] MEDS: ASPIRIN EC 81 MG TABLET PO SCH (08:23)
[2023-01-07 08:45] LABS: BASOPHILS % (AUTO) 0.3 %; HCT - HEMATOCRIT 44.6 % (37.0-47.0); HGB - HEMOGLOBIN 13.6 g/dL (12.0-16.0); LYMPHOCYTES # (AUTO) 1.1 10^3/uL (1.5-3.5); LYMPHOCYTES % (AUTO) 8.3 %; MEAN CORPUSCULAR HEMOGLOBIN 29.9 pg (27.0-31.0); MEAN CORPUSCULAR HGB CONC 30.5 g/dL (32.0-36.0); MEAN PLATELET VOLUME 11.4 fL (7.9-10.8); MONOCYTES # (AUTO) 0.9 10^3/uL (0.0-1.0); MONOCYTES % (AUTO) 7.1 %; NEUTROPHILS # (AUTO) 10.4 10^3/uL (1.5-6.6); NEUTROPHILS % (AUTO) 81.4 %; PLT - PLATELET COUNT 289 10^3/uL (130-450); RED BLOOD COUNT 4.55 10^6/uL (4.20-5.40); RED CELL DISTRIBUTION WIDTH 13.7 % (12.0-15.0); WHITE BLOOD COUNT 12.8 x10^3/uL (4.8-10.8)
[2023-01-07 08:54] LABS: CALCIUM 9.8 mg/dL (8.5-10.3); CREATININE 0.9 mg/dL (0.4-1.0); MAGNESIUM 2.2 mg/dL (1.7-2.8); POTASSIUM 3.8 mmol/L (3.5-5.0)
[2023-01-07 10:13] LABS: ESTIMATED AVERAGE GLUCOSE 131 mg/dL (70-100); HEMOGLOBIN A1c% 6.2 % (4.27-6.07)
--- NOTE | 2023-01-07 16:23 | PROVIDER PROGRESS NOTE ---
Assessment/Plan - Problem List (1) Acute and chronic respiratory failure with hypoxia Assessment/Plan: (1) Acute and chronic respiratory failure with hypoxia Assessment/Plan: Assessment/Plan: This is multifactorial: from acute bronchitis, COPD exacerbation and CHF exacerbation. She normally uses 2 L O2 at home and she came in hypoxic while on her 2 L of O2. She needed 3 L O2 over night. Today at rest she is back down to 2 L O2. Plan: Cont supplemental O2 with target O2 saturations greater than 88% Cont her home BiPAP machine to be used while she is here Cont to treat each of the underlying problems. On the day of discharge she will need a repeat oximetry test, to see if she needs different home O2 ordered. (2) Bronchitis with acute wheezing Conclusion/Plan: She has not made a sputum sample to send for cx I started her on empiric po Augmentin. Plan: Await sputum sample to send for culture. Cont Solu-Medrol and I will start weaning down, from 80 mg TID to 40 mg TID today Cont DuoNeb treatments scheduled 4 times daily and prn q4 hours Cont scheduled Mucinex for pulmonary toilet I will add Montelukast qpm I will order chest PT TID with RT (3) CHF exacerbation Conclusion/Plan: Troponins were checked this admission, and she ruled out for an KS, as the cause of this CHF exacerbation She claims that her caregivers who prepare her meals "do not follow a low salt diet". She has anasarca with 4+ pitting edema all the way to her hips and her abdominal wall Since admission despite getting iv BID Lasix, she has only (-) fluid balance of 300 cc. I reviewed her I's and O's today, and she drinks 2300 cc of fluids a day. Plan: Cont IV twice daily Lasix and follow her I's and O's, daily weights, electrolytes and magnesium. With this amount of anasarca, there is probably more than 10 pounds of water weight to diurese off. I added a 2000 cc/day total fluid restriction Continue her usual cardiac medications I ordered an Echo w/ [facility], to rechecl LVEF and RVEF. (Echo ordered 2 days ago but we have no centrifugal chiller technician here until tomorrow). For the last several years her Echoes have shown LV diastolic heart failure, which she may still have but I suspect that she now may have Cor pulmonale, given this much anasarca, since in the past the RV was reported to be normal size with normal function. January 06, 2023-have increased Lasix to 40 mg IV twice daily and monitor I's and O's. She has not had adequate output with 20 mg IV twice daily. Echocardiogram showed 1. Overall left ventricular systolic function is lower limits of normal with an ejection fraction of 50 to 55%. 2. Right ventricular systolic function is mildly impaired. 3. No concerning cardiac valve disease noted. (4) Anasarca She stated that she thought "this is the usual amount of leg edema she always has on exam". But this is anasarca with 4+ pitting edema all the way to her hips and her abdominal wall. I suspect she has >10 lbs of fluid to diurese off. In the past her RV was reported to be normal size with normal function on Echo, but I suspect that she now has Cor pulmonale, given this much anasarca. Since admission despite being on iv BID Lasix, she has only (-) fluid balance of 300 cc. I reviewed her I's and O's, and she drinks 2300 cc of fluids a day. Also, she claims that "her caregivers who prepare her meals do not follow a low salt diet". Plan: Cont IV twice daily Lasix and follow her I's and O's, daily weights I added a 2000 cc/day total fluid restriction, it may even need to be stricter I will order Athlete Manager consult for CHF [facility] January 07, 2023-difficult to follow I's and O's as patient is using pure wick along with having some urine to go into a diaper so we will place Adler for appropriate AVELION management. Have increased Lasix to 60 mg IV twice daily. (5) Paroxysmal Afib On 01/04 her telemetry showed she went into Afib, first with a controlled HR, then Afib with RVR at 120-140 sustained. I had to give Lopressor 5 mg iv x1. She has had Parox Afib before, per records. I suspect we saw this A-fib with RVR because she missed 2 doses, therefore 24 hours, of her Carvedilol. Plan: I have resumed her usual Coreg twice daily dose, for heart rate control Her CHADS2 score is 1 or 2, so she needs to be at least on an asprin daily, for stroke prophylaxis. And she is on 1 baby aspirin daily, which is being continued. (6) Morbid obesity with BMI of 45.0-49.9, adult Conclusion/Plan: This complicates most of her care. She has become sedentary, only wheelchair- bound and bedbound and needs caregivers. (During a previous hospitalization it was documented that she would rather defecate into a diaper then go on to a commode). She has obesity hypoventilation syndrome Because of her obesity-hypoventilation syndrome she was to be on a CPAP machine and I ordered her home CPAP machine to be used here Plan: Will order OOB to chair with a sera lift Depending on if she wants to try to stand to pivot and get into a wheelchair, I will order PT a - Current Meds Current Meds: Current Medications Generic Name Dose Route Start Last Admin Trade Name Freq PRN Reason Stop Dose Admin Acetaminophen 650 mg 01/03/23 17:19 01/07/23 14:46 Acetaminophen 325 Mg Tablet PO 650 mg Q4HR PRN Administration Pain 1 to 4, or Fever Hydrocodone Bitart/Acetaminophen 1 tab 01/04/23 13:14 01/07/23 08:24 Hydrocod/Acetam 7.5 Mg/325 Mg Tablet PO 1 tab BID PRN Administration PAIN 5-7 Albuterol/Ipratropium 3 ml 01/03/23 19:00 01/07/23 15:02 Ipratropium/Albuterol 3 Ml Neb INH 3 ml RTQID TAI Administration Amitriptyline HCl 50 mg 01/04/23 21:00 01/06/23 20:58 Amitriptyline 25 Mg Tablet PO 50 mg QPM TAI Administration Amoxicillin/Clavulanate Potassium 1 tab 01/04/23 10:09 01/07/23 08:22 Amox/Clav 875 Mg/125 Mg Tablet PO 1 tab BID TAI Administration Aspirin 81 mg 01/05/23 09:00 01/07/23 08:23 Aspirin Ec 81 Mg Tablet PO 81 mg DAILY TAI Administration Atorvastatin Calcium 20 mg 01/04/23 21:00 01/06/23 20:58 Atorvastatin 10 Mg Tablet PO 20 mg QPM TAI Administration Budesonide 0.5 mg 01/03/23 19:00 01/07/23 07:53 Budesonide 0.5 Mg/2 Ml Neb INH 0.5 mg RTBID TAI Administration Calcium Citrate 500 mg 01/05/23 09:00 01/07/23 08:23 Calcium Citrate 250 Mg Tablet PO 500 mg DAILY TAI Administration Carvedilol 25 mg 01/06/23 21:00 01/07/23 08:23 Carvedilol 12.5 Mg Tablet PO 25 mg BID TAI Administration Cholecalciferol 400 unit 01/05/23 09:00 01/07/23 08:23 Cholecalciferol 400 Unit Tablet PO 400 unit DAILY TAI Administration Enoxaparin Sodium 40 mg 01/05/23 21:00 01/07/23 08:22 Enoxaparin 40 Mg/0.4 Ml Syringe SUBQ 40 mg BID TAI Administration Furosemide 60 mg 01/07/23 14:00 01/07/23 15:42 Furosemide 20 Mg/2 Ml Vial IVP 60 mg BIDDIURETIC TAI Administration Guaifenesin 600 mg 01/03/23 21:00 01/07/23 08:23 Guaifenesin 600 Mg Tablet PO 600 mg BID TAI Administration Insulin Human Lispro 1 - 5 unit 01/06/23 12:00 01/07/23 14:46 Insulin Lispro 300 Unit/3 Ml Pen SUBQ 3 unit 0800,1200,1700,2100 TAI Administration Protocol Losartan Potassium 25 mg 01/05/23 09:00 01/07/23 08:23 Losartan 50 Mg Tablet PO 25 mg DAILY TAI Administration Methocarbamol 750 mg 01/04/23 13:33 01/07/23 14:47 Methocarbamol 500 Mg Tablet PO 750 mg BID PRN Administration Spasms Methylprednisolone 40 mg 01/05/23 14:00 01/07/23 15:42 Methylprednisolone Succinate 40 Mg/Ml Vial IVP 40 mg TID TAI Administration Metoprolol Tartrate 5 mg 01/04/23 21:37 01/06/23 18:15 Metoprolol 5 Mg/5 Ml Vial IVP 5 mg Q6H PRN Administration Hypertensive Emergency Metoprolol Tartrate 10 mg 01/06/23 22:18 01/06/23 22:52 Metoprolol 5 Mg/5 Ml Vial IVP 01/07/23 22:17 10 mg ONCE PRN Administration Tachycardia Mineral Oil 1 applic 01/03/23 21:22 01/04/23 21:08 Min Oil/Dimethicon/Coconut Oil 92 Gm Tube TOP 1 applic PRN PRN Administration Skin Care Montelukast Sodium 10 mg 01/05/23 21:00 01/06/23 20:59 Montelukast 10 Mg Tablet PO 10 mg QPM TAI Administration Multi-Ingredient Ointment 1 applic 01/04/23 13:14 01/05/23 12:15 Zinc Oxide 20% Oint 30 Gm Tube TOP 1 applic PRN PRN Administration Skin Care Multivitamins/Minerals 1 tab 01/05/23 08:00 01/07/23 08:23 Multivitamin W/Minerals Tablet PO 1 tab DAILYWM TAI Administration Pantoprazole Sodium 40 mg 01/05/23 07:00 01/07/23 06:07 Pantoprazole 40 Mg Tablet PO 40 mg QDAC TAI Administration Potassium Chloride 20 meq 01/04/23 11:00 01/07/23 08:23 Potassium Chloride 20 Meq Tablet PO 20 meq DAILYWM TAI Administration Pregabalin 50 mg 01/04/23 14:00 01/07/23 15:42 Pregabalin 25 Mg Capsule PO 50 mg TID TAI Administration Sodium Chloride 10 ml 01/03/23 17:19 01/07/23 06:08 Sodium Chloride Flush 0.9% 10 Ml Syringe IVP 10 ml PRN PRN Administration NEEDED PER PROVIDER ORDERS Sodium Chloride 10 ml 01/04/23 01:00 01/07/23 06:08 Sodium Chloride Flush 0.9% 10 Ml Syringe IVP 10 ml 0100,0900,1700 TAI Administration - Lab Result Fish Bone Diagrams: 01/07/23 08:38 01/07/23 08:38 - Additional Planning My Orders: My Active Orders 01/07/23 11:18 Adler Continuation and Care [RC] QSHIFT Adler Insertion [RC] QSHIFT 01/07/23 14:00 FUROSEMIDE INJ 20mg VIAL [LASIX INJ 20mg VIAL] 60 mg IVP BIDDIURETIC Subjective - Subjective Patient Reports: No Complaints Objective Vital Signs: Vital Signs - 24 hr 01/06/23 01/06/23 01/06/23 19:08 21:25 21:26 Temperature 36.6 C Heart Rate 140 H Heart Rate [ 103 H Brachial] Heart Rate [ Monitoring electrodes] Respiratory 18 20 Rate Blood Pressure Blood Pressure 135/99 H [Left Brachial artery] O2 Saturation 96 If not protocol 2 2 2 : Oxygen Flow, liters/minute 01/06/23 01/07/23 01/07/23 22:52 00:08 00:35 Temperature 36.3 C L Heart Rate Heart Rate [ Brachial] Heart Rate [ 86 Monitoring electrodes] Respiratory 20 Rate Blood Pressure 109/57 L 118/94 H Blood Pressure 118/94 H [Left Brachial artery] O2 Saturation 96 If not protocol 2 2 : Oxygen Flow, liters/minute 01/07/23 01/07/23 01/07/23 04:56 06:15 07:22 Temperature 36.3 C L 36.4 C L Heart Rate Heart Rate [ 78 Brachial] Heart Rate [ 96 Monitoring electrodes] Respiratory 16 20 Rate Blood Pressure Blood Pressure 131/55 H 130/61 [Left Brachial artery] O2 Saturation 94 95 If not protocol 2 2 2 : Oxygen Flow, liters/minute 01/07/23 01/07/23 01/07/23 07:53 11:04 11:25 Temperature 36.5 C Heart Rate 87 143 H Heart Rate [ 60 Brachial] Heart Rate [ Monitoring electrodes] Respiratory 22 18 18 Rate Blood Pressure Blood Pressure 141/66 H [Left Brachial artery] O2 Saturation 94 If not protocol 2 2 2 : Oxygen Flow, liters/minute 01/07/23 15:03 Temperature Heart Rate 89 Heart Rate [ Brachial] Heart Rate [ Monitoring electrodes] Respiratory 20 Rate Blood Pressure Blood Pressure [Left Brachial artery] O2 Saturation If not protocol : Oxygen Flow, liters/minute Oxygen O2 Source [Without Activity] Nasal cannula O2 Source [With Activity] Nasal cannula O2 Source Nasal cannula Oxygen Flow Rate 3 I&O (Last 24 Hrs): Intake and Output Totals x24h 01/05/23 01/06/23 01/07/23 23:59 23:59 23:59 Intake Total 1340 1267 1130 Output Total 1350 600 900 Balance -10 667 230 General: Alert, Oriented x3, Cooperative Neck: Supple Neuro: Alert Cardiovascular: Regular rate, Normal S1, Normal S2 Respiratory: Breath sounds nml Abdomen: Soft Extremities: Other (3+ lower extremity edema up to lower abdominal wall) - Results Results: Laboratory Results WBC 12.8 x10^3/uL (4.8-10.8) H 01/07/23 08:38 RBC 4.55 10^6/uL (4.20-5.40) 01/07/23 08:38 Hgb 13.6 g/dL (12.0-16.0) 01/07/23 08:38 Hct 44.6 % (37.0-47.0) 01/07/23 08:38 MCV 98.0 fL (81.0-99.0) 01/07/23 08:38 MCH 29.9 pg (27.0-31.0) 01/07/23 08:38 MCHC 30.5 g/dL (32.0-36.0) L 01/07/23 08:38 RDW 13.7 % (12.0-15.0) 01/07/23 08:38 Plt Count 289 10^3/uL (130-450) 01/07/23 08:38 MPV 11.4 fL (7.9-10.8) H 01/07/23 08:38 Neut # (Auto) 10.4 10^3/uL (1.5-6.6) H 01/07/23 08:38 Lymph # (Auto) 1.1 10^3/uL (1.5-3.5) L 01/07/23 08:38 [place] # (Auto) 0.9 10^3/uL (0.0-1.0) 01/07/23 08:38 Eos # (Auto) 0.0 10^3/uL (0.0-0.7) 01/07/23 08:38 Baso # (Auto) 0.0 10^3/uL (0.0-0.1) 01/07/23 08:38 Absolute Nucleated RBC 0.00 x10^3/uL 01/07/23 08:38 Nucleated RBC % 0.0 /100WBC 01/07/23 08:38 Sodium 142 mmol/L (135-145) 01/07/23 08:38 Potassium 3.8 mmol/L (3.5-5.0) 01/07/23 08:38 Chloride 97 mmol/L (101-111) L 01/07/23 08:38 Carbon Dioxide 37 mmol/L (21-32) H 01/07/23 08:38 Anion Gap 8.0 (6-13) 01/07/23 08:38 BUN 48 mg/dL (6-20) H 01/07/23 08:38 Creatinine 0.9 mg/dL (0.4-1.0) 01/07/23 08:38 Estimated GFR (MDRD) 60 (>89) L 01/07/23 08:38 Glucose 205 mg/dL (70-100) H 01/07/23 08:38 POC Whole Bld Glucose 236 mg/dL (70 - 100) H 01/07/23 11:11 Estimat Average Glucose 131 mg/dL (70-100) H 01/07/23 08:38 Hemoglobin A1c % 6.2 % (4.27-6.07) H 01/07/23 08:38 Calcium 9.8 mg/dL (8.5-10.3) 01/07/23 08:38 Magnesium 2.2 mg/dL (1.7-2.8) 01/07/23 08:38 Total Bilirubin 0.6 mg/dL (0.2-1.0) 01/03/23 12:21 AST 17 IU/L (10-42) 01/03/23 12:21 ALT 19 IU/L (10-60) 01/03/23 12:21 Alkaline Phosphatase 101 IU/L (42-121) 01/03/23 12:21 Troponin I High Sens 23.4 ng/L (2.3-14.8) H* 01/03/23 18:45 B-Natriuretic Peptide 328 pg/mL (5-100) H 01/04/23 05:06 Total Protein 7.6 g/dL (6.7-8.2) 01/03/23 12:21 Albumin 3.6 g/dL (3.2-5.5) 01/03/23 12:21 Globulin 4.0 g/dL (2.1-4.2) 01/03/23 12:21 Albumin/Globulin Ratio 0.9 (1.0-2.2) L 01/03/23 12:21 Lipase 31 U/L (22-51) 01/03/23 12:21 Nasal Adenovirus (PCR) NOT DETECTED 01/03/23 12:25 Nasal B. parapertussis DNA (PCR) NOT DETECTED 01/03/23 12:25 Nasal Coronavir 229E PCR NOT DETECTED 01/03/23 12:25 Nasal Coronavir HKU1 PCR NOT DETECTED 01/03/23 12:25 Nasal Coronavir NL63 PCR NOT DETECTED 01/03/23 12:25 Nasal Coronavir OC43 PCR NOT DETECTED 01/03/23 12:25 Nasal Enterovir/Rhinovir PCR NOT DETECTED 01/03/23 12:25 Nasal Influenza B PCR NOT DETECTED 01/03/23 12:25 Nasal Influenza A PCR NOT DETECTED 01/03/23 12:25 Nasal Parainfluen 1 PCR NOT DETECTED 01/03/23 12:25 Nasal Parainfluen 2 PCR NOT DETECTED 01/03/23 12:25 Nasal Parainfluen 3 PCR NOT DETECTED 01/03/23 12:25 Nasal Parainfluen 4 PCR NOT DETECTED 01/03/23 12:25 Nasal RSV (PCR) NOT DETECTED 01/03/23 12:25 Nasal B.pertussis DNA PCR NOT DETECTED 01/03/23 12:25 Nasal C.pneumoniae (PCR) NOT DETECTED 01/03/23 12:25 Ankit Human Metapneumo PCR NOT DETECTED 01/03/23 12:25 Nasal M.pneumoniae (PCR) NOT DETECTED 01/03/23 12:25 Nasal SARS-CoV-2 (PCR) NOT DETECTED 01/03/23 12:25 - Procedures Procedures: Procedures CATARAC PHACOEMULS/ASPIR (04/27/14) INSERT LENS AT CATAR EXT (04/27/14) INSERTION OF INFUSION DEV INTO SUP VENA CAVA, PERC APPROACH (06/02/22) REPLACEMENT OF LEFT LENS WITH SYNTH SUB, PERC APPROACH (09/25/16)
[2023-01-07] MEDS: METOPROLOL 5 MG/5 ML VIAL IVP PRN ×2 (18:32→20:31)
[2023-01-07] MEDS: AMITRIPTYLINE 25 MG TABLET PO SCH (21:30)
[2023-01-07] MEDS: ATORVASTATIN 10 MG TABLET PO SCH (21:30)
[2023-01-07] MEDS: MONTELUKAST 10 MG TABLET PO SCH (21:31)
[2023-01-08] MEDS: SODIUM CHLORIDE FLUSH 0.9% 10 ML SYRINGE IVP SCH ×3 (01:38→17:46)
[2023-01-08] MEDS: PANTOPRAZOLE 40 MG TABLET PO SCH (05:25)
[2023-01-08] MEDS: PREGABALIN 25 MG CAPSULE PO SCH ×3 (05:26→21:33)
[2023-01-08 05:53] LABS: BASOPHILS % (AUTO) 0.7 %; HCT - HEMATOCRIT 41.4 % (37.0-47.0); HGB - HEMOGLOBIN 12.6 g/dL (12.0-16.0); LYMPHOCYTES % (AUTO) 7.7 %; MEAN CORPUSCULAR HEMOGLOBIN 29.9 pg (27.0-31.0); MEAN CORPUSCULAR HGB CONC 30.4 g/dL (32.0-36.0); MEAN CORPUSCULAR VOLUME 98.1 fL (81.0-99.0); MEAN PLATELET VOLUME 11.1 fL (7.9-10.8); MONOCYTES % (AUTO) 5.2 %; NEUTROPHILS % (AUTO) 81.3 %; PLT - PLATELET COUNT 253 10^3/uL (130-450); RED BLOOD COUNT 4.22 10^6/uL (4.20-5.40); RED CELL DISTRIBUTION WIDTH 13.7 % (12.0-15.0); WHITE BLOOD COUNT 10.1 x10^3/uL (4.8-10.8)
[2023-01-08 05:57] LABS: ABNORMAL LYMPHS % (MANUAL) 0 %; BAND NEUTROPHILS % (MANUAL) 0 %
[2023-01-08 06:07] LABS: CALCIUM 9.8 mg/dL (8.5-10.3); CREATININE 0.9 mg/dL (0.4-1.0); MAGNESIUM 2.4 mg/dL (1.7-2.8); POTASSIUM 3.4 mmol/L (3.5-5.0)
[2023-01-08 06:09] LABS: DIFFERENTIAL COMMENT MANUAL DIFFERENTIAL; LYMPHOCYTES # (MANUAL) 0.9 10^3/uL (1.5-3.5); LYMPHOCYTES % (MANUAL) 9 %; MONOCYTES # (MANUAL) 0.2 10^3/uL (0.0-1.0); MYELOCYTES % (MANUAL) 4 %; NEUTROPHILS # (MANUAL) 8.6 10^3/uL (1.5-6.6); PLATELET ESTIMATE, MANUAL NORMAL (130-450,000) (NORMAL); PLATELET MORPHOLOGY NORMAL APPEARANCE (NORMAL); RBC MORPHOLOGY (MULTIPLE) NORMAL APPEARANCE (NORMAL); WBC MORPHOLOGY (MULTIPLE) NORMAL APPEARANCE (NORMAL)
[2023-01-08] MEDS: FUROSEMIDE 20 MG/2 ML VIAL IVP SCH (07:00)
[2023-01-08] MEDS: BUDESONIDE 0.5 MG/2 ML NEB INH SCH ×2 (07:25→19:40)
[2023-01-08] MEDS: IPRATROPIUM/ALBUTEROL 3 ML NEB INH SCH ×4 (07:25→19:40)
[2023-01-08] MEDS: ACETAMINOPHEN 325 MG TABLET PO PRN ×2 (08:18→17:58)
[2023-01-08] MEDS: AMOX/CLAV 875 MG/125 MG TABLET PO SCH ×2 (08:18→20:14)
[2023-01-08] MEDS: POTASSIUM CHLORIDE 20 MEQ TABLET PO SCH (08:18)
[2023-01-08] MEDS: CALCIUM CITRATE 250 MG TABLET PO SCH (08:18)
[2023-01-08] MEDS: carvediloL 12.5 MG TABLET PO SCH ×2 (08:18→20:14)
[2023-01-08] MEDS: LOSARTAN 50 MG TABLET PO SCH (08:19)
[2023-01-08] MEDS: MULTIVITAMIN W/MINERALS TABLET PO SCH (08:19)
[2023-01-08] MEDS: ASPIRIN EC 81 MG TABLET PO SCH (08:19)
[2023-01-08] MEDS: CHOLECALCIFEROL 400 UNIT TABLET PO SCH (08:19)
[2023-01-08] MEDS: guaiFENesin 600 MG TABLET PO SCH ×2 (08:19→20:14)
[2023-01-08] MEDS: INSULIN LISPRO 300 UNIT/3 ML PEN SUBQ SCH ×4 (08:20→21:33)
[2023-01-08] MEDS: ENOXAPARIN 40 MG/0.4 ML SYRINGE SUBQ SCH ×2 (08:21→20:15)
[2023-01-08] MEDS: methylPREDNISolone SUCCINATE 40 MG/ML VIAL IVP SCH ×2 (13:41→21:33)
[2023-01-08] MEDS: FUROSEMIDE 40 MG/4 ML VIAL IVP SCH (13:41)
--- NOTE | 2023-01-08 16:00 | PROVIDER PROGRESS NOTE ---
Assessment/Plan - Problem List (1) Acute and chronic respiratory failure with hypoxia Assessment/Plan: This is multifactorial: from acute bronchitis, COPD exacerbation and CHF exacerbation. She normally uses 2 L O2 at home and she came in hypoxic while on her 2 L of O2. She needed 3 L O2 over night. Today at rest she is back down to 2 L O2. Plan: Cont supplemental O2 with target O2 saturations greater than 88% Cont her home BiPAP machine to be used while she is here Cont to treat each of the underlying problems. On the day of discharge she will need a repeat oximetry test, to see if she needs different home O2 ordered. (2) Bronchitis with acute wheezing Conclusion/Plan: She has not made a sputum sample to send for cx I started her on empiric po Augmentin. Plan: Await sputum sample to send for culture. Cont Solu-Medrol and I will start weaning down, from 80 mg TID to 40 mg TID today Cont DuoNeb treatments scheduled 4 times daily and prn q4 hours Cont scheduled Mucinex for pulmonary toilet I will add Montelukast qpm I will order chest PT TID with RT (3) CHF exacerbation Conclusion/Plan: Troponins were checked this admission, and she ruled out for an MD, as the cause of this CHF exacerbation She claims that her caregivers who prepare her meals "do not follow a low salt diet". She has anasarca with 4+ pitting edema all the way to her hips and her abdominal wall Since admission despite getting iv BID Lasix, she has only (-) fluid balance of 300 cc. I reviewed her I's and O's today, and she drinks 2300 cc of fluids a day. Plan: Cont IV twice daily Lasix and follow her I's and O's, daily weights, electr olytes and magnesium. With this amount of anasarca, there is probably more than 10 pounds of water weight to diurese off. I added a 2000 cc/day total fluid restriction Continue her usual cardiac medications I ordered an Echo w/ [facility], to rechecl LVEF and RVEF. (Echo ordered 2 days ago but we have no pest technician here until tomorrow). For the last several years her Echoes have shown LV diastolic heart failure, which she may still have but I suspect that she now may have Cor pulmonale, given this much anasarca, since in the past the RV was reported to be normal size with normal function. January 06, 2023-have increased Lasix to 40 mg IV twice daily and monitor I's and O's. She has not had adequate output with 20 mg IV twice daily. Echocardiogram showed 1. Overall left ventricular systolic function is lower limits of normal with an ejection fraction of 50 to 55%. 2. Right ventricular systolic function is mildly impaired. 3. No concerning cardiac valve disease noted. (4) Anasarca She stated that she thought "this is the usual amount of leg edema she always has on exam". But this is anasarca with 4+ pitting edema all the way to her hips and her abdominal wall. I suspect she has >10 lbs of fluid to diurese off. In the past her RV was reported to be normal size with normal function on Echo, but I suspect that she now has Cor pulmonale, given this much anasarca. Since admission despite being on iv BID Lasix, she has only (-) fluid balance of 300 cc. I reviewed her I's and O's, and she drinks 2300 cc of fluids a day. Also, she claims that "her caregivers who prepare her meals do not follow a low salt diet". Plan: Cont IV twice daily Lasix and follow her I's and O's, daily weights I added a 2000 cc/day total fluid restriction, it may even need to be stricter I will order Preschool Assistant Director consult for CHF [facility] January 07, 2023-difficult to follow I's and O's as patient is using pure wick along with having some urine to go into a diaper so we will place Adler for appropriate AVELINO management. Have increased Lasix to 60 mg IV twice daily. January 08, 2023-patient patient had Adler placed yesterday and she is getting good diuresis we will decrease Lasix to 40 mg IV twice daily and monitor (5) Paroxysmal Afib On 01/04 her telemetry showed she went into Afib, first with a controlled HR, then Afib with RVR at 120-140 sustained. I had to give Lopressor 5 mg iv x1. She has had Parox Afib before, per records. I suspect we saw this A-fib with RVR because she missed 2 doses, therefore 24 hours, of her Carvedilol. Plan: I have resumed her usual Coreg twice daily dose, for heart rate control Her CHADS2 score is 1 or 2, so she needs to be at least on an asprin daily, for stroke prophylaxis. And she is on 1 baby aspirin daily, which is being continued. (6) Morbid obesity with BMI of 45.0-49.9, adult Conclusion/Plan: This complicates most of her care. She has become sedentary, only wheelchair- bound and bedbound and needs caregivers. (During a previous hospitalization it was documented that she would rather defecate into a diaper then go on to a commode). She has obesity hypoventilation syndrome Because of her obesity-hypoventilation syndrome she was to be on a CPAP machine and I ordered her home CPAP machine to be used here Plan: Will order OOB to chair with a sera lift Depending on if she wants to try to stand to pivot and get into a wheelchair, I will order PT a - Current Meds Current Meds: Current Medications Generic Name Dose Route Start Last Admin Trade Name Parveen PRN Reason Stop Dose Admin Acetaminophen 650 mg 01/03/23 17:19 01/08/23 08:18 Acetaminophen 325 Mg Tablet PO 650 mg Q4HR PRN Administration Pain 1 to 4, or Fever Hydrocodone Bitart/Acetaminophen 1 tab 01/04/23 13:14 01/07/23 08:24 Hydrocod/Acetam 7.5 Mg/325 Mg Tablet PO 1 tab BID PRN Administration PAIN 5-7 Albuterol/Ipratropium 3 ml 01/03/23 19:00 01/08/23 15:28 Ipratropium/Albuterol 3 Ml Neb INH 3 ml RTQID TAI Administration Amitriptyline HCl 50 mg 01/04/23 21:00 01/07/23 21:30 Amitriptyline 25 Mg Tablet PO 50 mg QPM TAI Administration Amoxicillin/Clavulanate Potassium 1 tab 01/04/23 10:09 01/08/23 08:18 Amox/Clav 875 Mg/125 Mg Tablet PO 1 tab BID TAI Administration Aspirin 81 mg 01/05/23 09:00 01/08/23 08:19 Aspirin Ec 81 Mg Tablet PO 81 mg DAILY TAI Administration Atorvastatin Calcium 20 mg 01/04/23 21:00 01/07/23 21:30 Atorvastatin 10 Mg Tablet PO 20 mg QPM TAI Administration Budesonide 0.5 mg 01/03/23 19:00 01/08/23 07:25 Budesonide 0.5 Mg/2 Ml Neb INH 0.5 mg RTBID TAI Administration Calcium Citrate 500 mg 01/05/23 09:00 01/08/23 08:18 Calcium Citrate 250 Mg Tablet PO 500 mg DAILY TAI Administration Carvedilol 25 mg 01/06/23 21:00 01/08/23 08:18 Carvedilol 12.5 Mg Tablet PO 25 mg BID TAI Administration Cholecalciferol 400 unit 01/05/23 09:00 01/08/23 08:19 Cholecalciferol 400 Unit Tablet PO 400 unit DAILY TAI Administration Enoxaparin Sodium 40 mg 01/05/23 21:00 01/08/23 08:21 Enoxaparin 40 Mg/0.4 Ml Syringe SUBQ 40 mg BID TAI Administration Furosemide 40 mg 01/08/23 14:00 01/08/23 13:41 Furosemide 40 Mg/4 Ml Vial IVP 40 mg BIDDIURETIC TAI Administration Guaifenesin 600 mg 01/03/23 21:00 01/08/23 08:19 Guaifenesin 600 Mg Tablet PO 600 mg BID TAI Administration Insulin Human Lispro 1 - 5 unit 01/06/23 12:00 01/08/23 12:02 Insulin Lispro 300 Unit/3 Ml Pen SUBQ 3 unit 0800,1200,1700,2100 TAI Administration Protocol Losartan Potassium 25 mg 01/05/23 09:00 01/08/23 08:19 Losartan 50 Mg Tablet PO 25 mg DAILY TAI Administration Methocarbamol 750 mg 01/04/23 13:33 01/07/23 14:47 Methocarbamol 500 Mg Tablet PO 750 mg BID PRN Administration Spasms Methylprednisolone 40 mg 01/05/23 14:00 01/08/23 13:41 Methylprednisolone Succinate 40 Mg/Ml Vial IVP 40 mg TID TAI Administration Metoprolol Tartrate 5 mg 01/04/23 21:37 01/06/23 18:15 Metoprolol 5 Mg/5 Ml Vial IVP 5 mg Q6H PRN Administration Hypertensive Emergency Mineral Oil 1 applic 01/03/23 21:22 01/04/23 21:08 Min Oil/Dimethicon/Coconut Oil 92 Gm Tube TOP 1 applic PRN PRN Administration Skin Care Montelukast Sodium 10 mg 01/05/23 21:00 01/07/23 21:31 Montelukast 10 Mg Tablet PO 10 mg QPM TAI Administration Multi-Ingredient Ointment 1 applic 01/04/23 13:14 01/05/23 12:15 Zinc Oxide 20% Oint 30 Gm Tube TOP 1 applic PRN PRN Administration Skin Care Multivitamins/Minerals 1 tab 01/05/23 08:00 01/08/23 08:19 Multivitamin W/Minerals Tablet PO 1 tab DAILYWM TAI Administration Pantoprazole Sodium 40 mg 01/05/23 07:00 01/08/23 05:25 Pantoprazole 40 Mg Tablet PO 40 mg QDAC TAI Administration Potassium Chloride 20 meq 01/04/23 11:00 01/08/23 08:18 Potassium Chloride 20 Meq Tablet PO 20 meq DAILYWM TAI Administration Pregabalin 50 mg 01/04/23 14:00 01/08/23 13:40 Pregabalin 25 Mg Capsule PO 50 mg TID TAI Administration Sodium Chloride 10 ml 01/03/23 17:19 01/07/23 06:08 Sodium Chloride Flush 0.9% 10 Ml Syringe IVP 10 ml PRN PRN Administration NEEDED PER PROVIDER ORDERS Sodium Chloride 10 ml 01/04/23 01:00 01/08/23 08:21 Sodium Chloride Flush 0.9% 10 Ml Syringe IVP 10 ml 0100,0900,1700 TAI Administration - Lab Result Fish Bone Diagrams: 01/08/23 05:24 01/08/23 05:24 - Additional Planning My Orders: My Active Orders 01/08/23 12:34 SCDs [RC] QSHIFT 01/08/23 14:00 FUROSEMIDE INJ 40mg VIAL [LASIX INJ 40 mg VIAL] 40 mg IVP BIDDIURETIC Subjective - Subjective Patient Reports: Feeling Better Objective Vital Signs: Vital Signs - 24 hr 01/07/23 01/07/23 01/07/23 17:00 18:12 18:18 Temperature 36.3 C L Heart Rate 108 H Heart Rate [ 140 H 118 H Brachial] Heart Rate [ Monitoring electrodes] Respiratory 20 20 Rate Blood Pressure Blood Pressure 121/69 [Left Brachial artery] O2 Saturation 94 If not protocol 2 2 : Oxygen Flow, liters/minute 01/07/23 01/07/23 01/07/23 20:12 20:31 20:35 Temperature 36.5 C Heart Rate Heart Rate [ 135 H 149 H Brachial] Heart Rate [ Monitoring electrodes] Respiratory 22 Rate Blood Pressure 127/72 Blood Pressure 141/77 H 115/74 [Left Brachial artery] O2 Saturation 94 If not protocol 2 : Oxygen Flow, liters/minute 01/07/23 01/07/23 01/07/23 20:40 20:45 21:00 Temperature Heart Rate Heart Rate [ 142 H 130 H 96 Brachial] Heart Rate [ Monitoring electrodes] Respiratory Rate Blood Pressure Blood Pressure 119/81 H 131/60 H 159/137 H [Left Brachial artery] O2 Saturation If not protocol : Oxygen Flow, liters/minute 01/07/23 01/07/23 01/07/23 21:01 21:15 21:30 Temperature Heart Rate Heart Rate [ 102 H 137 H Brachial] Heart Rate [ Monitoring electrodes] Respiratory Rate Blood Pressure 159/137 H Blood Pressure 119/70 102/60 [Left Brachial artery] O2 Saturation If not protocol : Oxygen Flow, liters/minute 01/07/23 01/08/23 01/08/23 23:00 00:12 05:00 Temperature 36.4 C L 36.4 C L Heart Rate Heart Rate [ Brachial] Heart Rate [ 101 H 84 Monitoring electrodes] Respiratory 18 18 Rate Blood Pressure Blood Pressure 133/60 H 134/59 H [Left Brachial artery] O2 Saturation 97 94 If not protocol 2 2 2 : Oxygen Flow, liters/minute 01/08/23 01/08/23 01/08/23 07:25 07:29 11:09 Temperature 36.4 C L Heart Rate 69 48 L Heart Rate [ 63 Brachial] Heart Rate [ Monitoring electrodes] Respiratory 22 16 16 Rate Blood Pressure Blood Pressure 144/88 H [Left Brachial artery] O2 Saturation 96 If not protocol 2 1.5 2 : Oxygen Flow, liters/minute 01/08/23 01/08/23 12:46 15:29 Temperature 36.6 C Heart Rate 46 L Heart Rate [ Brachial] Heart Rate [ 97 Monitoring electrodes] Respiratory 18 19 Rate Blood Pressure Blood Pressure 120/66 [Left Brachial artery] O2 Saturation 94 If not protocol 1.5 2 : Oxygen Flow, liters/minute Oxygen O2 Source [Without Activity] Nasal cannula O2 Source [With Activity] Nasal cannula O2 Source Nasal cannula Oxygen Flow Rate 3 I&O (Last 24 Hrs): Intake and Output Totals x24h 01/06/23 01/07/23 01/08/23 23:59 23:59 23:59 Intake Total 1267 1720 990 Output Total 600 1850 1975 Balance 667 -130 -985 General: Alert, Oriented x3 Neck: Supple Neuro: Alert Cardiovascular: Regular rate, Normal S1, Normal S2 Respiratory: Other (Decreased breath sounds at her bases) Abdomen: Normal bowel sounds, Soft Extremities: Other (3+ lower extremity edema) Skin: No rashes - Results Results: Laboratory Results WBC 10.1 x10^3/uL (4.8-10.8) 01/08/23 05:24 RBC 4.22 10^6/uL (4.20-5.40) 01/08/23 05:24 Hgb 12.6 g/dL (12.0-16.0) 01/08/23 05:24 Hct 41.4 % (37.0-47.0) 01/08/23 05:24 MCV 98.1 fL (81.0-99.0) 01/08/23 05:24 MCH 29.9 pg (27.0-31.0) 01/08/23 05:24 MCHC 30.4 g/dL (32.0-36.0) L 01/08/23 05:24 RDW 13.7 % (12.0-15.0) 01/08/23 05:24 Plt Count 253 10^3/uL (130-450) 01/08/23 05:24 MPV 11.1 fL (7.9-10.8) H 01/08/23 05:24 Neut # (Auto) Not Reportable 01/08/23 05:24 Lymph # (Auto) Not Reportable 01/08/23 05:24 [place] # (Auto) Not Reportable 01/08/23 05:24 Eos # (Auto) Not Reportable 01/08/23 05:24 Baso # (Auto) Not Reportable 01/08/23 05:24 Absolute Nucleated RBC Not Reportable 01/08/23 05:24 Total Counted 100 01/08/23 05:24 Band Neuts % (Manual) 0 % (0-10) 01/08/23 05:24 Abnorm Lymph % (Manual) 0 % 01/08/23 05:24 Myelocytes % 4 % (-0) H 01/08/23 05:24 Nucleated RBC % Not Reportable 01/08/23 05:24 Neutrophils # (Manual) 8.6 10^3/uL (1.5-6.6) H 01/08/23 05:24 Lymphocytes # (Manual) 0.9 10^3/uL (1.5-3.5) L 01/08/23 05:24 Monocytes # (Manual) 0.2 10^3/uL (0.0-1.0) 01/08/23 05:24 Eosinophils # (Manual) 0.0 10^3/uL (0-0.7) 01/08/23 05:24 Basophils # (Manual) 0.0 10^3/uL (0-0.1) 01/08/23 05:24 Differential Comment MANUAL DIFFERENTIAL 01/08/23 05:24 WBC Morphology NORMAL APPEARANCE (NORMAL) 01/08/23 05:24 Platelet Estimate NORMAL (130-450,000) (NORMAL) 01/08/23 05:24 Platelet Morphology NORMAL APPEARANCE (NORMAL) 01/08/23 05:24 RBC Morph Micro Appear NORMAL APPEARANCE (NORMAL) 01/08/23 05:24 Sodium 144 mmol/L (135-145) 01/08/23 05:24 Potassium 3.4 mmol/L (3.5-5.0) L 01/08/23 05:24 Chloride 97 mmol/L (101-111) L 01/08/23 05:24 Carbon Dioxide 39 mmol/L (21-32) H* 01/08/23 05:24 Anion Gap 8.0 (6-13) 01/08/23 05:24 BUN 50 mg/dL (6-20) H 01/08/23 05:24 Creatinine 0.9 mg/dL (0.4-1.0) 01/08/23 05:24 Estimated GFR (MDRD) 60 (>89) L 01/08/23 05:24 Glucose 218 mg/dL (70-100) H 01/08/23 05:24 POC Whole Bld Glucose 240 mg/dL (70 - 100) H 01/08/23 11:15 Estimat Average Glucose 131 mg/dL (70-100) H 01/07/23 08:38 Hemoglobin A1c % 6.2 % (4.27-6.07) H 01/07/23 08:38 Calcium 9.8 mg/dL (8.5-10.3) 01/08/23 05:24 Magnesium 2.4 mg/dL (1.7-2.8) 01/08/23 05:24 Total Bilirubin 0.6 mg/dL (0.2-1.0) 01/03/23 12:21 AST 17 IU/L (10-42) 01/03/23 12:21 ALT 19 IU/L (10-60) 01/03/23 12:21 Alkaline Phosphatase 101 IU/L (42-121) 01/03/23 12:21 Troponin I High Sens 23.4 ng/L (2.3-14.8) H* 01/03/23 18:45 B-Natriuretic Peptide 328 pg/mL (5-100) H 01/04/23 05:06 Total Protein 7.6 g/dL (6.7-8.2) 01/03/23 12:21 Albumin 3.6 g/dL (3.2-5.5) 01/03/23 12:21 Globulin 4.0 g/dL (2.1-4.2) 01/03/23 12:21 Albumin/Globulin Ratio 0.9 (1.0-2.2) L 01/03/23 12:21 Lipase 31 U/L (22-51) 01/03/23 12:21 Nasal Adenovirus (PCR) NOT DETECTED 01/03/23 12:25 Nasal B. parapertussis DNA (PCR) NOT DETECTED 01/03/23 12:25 Nasal Coronavir 229E PCR NOT DETECTED 01/03/23 12:25 Nasal Coronavir HKU1 PCR NOT DETECTED 01/03/23 12:25 Nasal Coronavir NL63 PCR NOT DETECTED 01/03/23 12:25 Nasal Coronavir OC43 PCR NOT DETECTED 01/03/23 12:25 Nasal Enterovir/Rhinovir PCR NOT DETECTED 01/03/23 12:25 Nasal Influenza B PCR NOT DETECTED 01/03/23 12:25 Nasal Influenza A PCR NOT DETECTED 01/03/23 12:25 Nasal Parainfluen 1 PCR NOT DETECTED 01/03/23 12:25 Nasal Parainfluen 2 PCR NOT DETECTED 01/03/23 12:25 Nasal Parainfluen 3 PCR NOT DETECTED 01/03/23 12:25 Nasal Parainfluen 4 PCR NOT DETECTED 01/03/23 12:25 Nasal RSV (PCR) NOT DETECTED 01/03/23 12:25 Nasal B.pertussis DNA PCR NOT DETECTED 01/03/23 12:25 Nasal C.pneumoniae (PCR) NOT DETECTED 01/03/23 12:25 Ankit Human Metapneumo PCR NOT DETECTED 01/03/23 12:25 Nasal M.pneumoniae (PCR) NOT DETECTED 01/03/23 12:25 Nasal SARS-CoV-2 (PCR) NOT DETECTED 01/03/23 12:25 - Procedures Procedures: Procedures CATARAC PHACOEMULS/ASPIR (04/27/14) INSERT LENS AT CATAR EXT (04/27/14) INSERTION OF INFUSION DEV INTO SUP VENA CAVA, PERC APPROACH (06/02/22) REPLACEMENT OF LEFT LENS WITH SYNTH SUB, PERC APPROACH (09/25/16) ABX Reporting Has patient been on IV antibiotics over the past 48 hours?: No
[2023-01-08] MEDS: ATORVASTATIN 10 MG TABLET PO SCH (20:14)
[2023-01-08] MEDS: MONTELUKAST 10 MG TABLET PO SCH (20:14)
[2023-01-08] MEDS: AMITRIPTYLINE 25 MG TABLET PO SCH (20:23)
[2023-01-09] MEDS: SODIUM CHLORIDE FLUSH 0.9% 10 ML SYRINGE IVP SCH ×3 (01:55→16:40)
[2023-01-09] MEDS: PREGABALIN 25 MG CAPSULE PO SCH ×3 (05:30→21:26)
[2023-01-09] MEDS: PANTOPRAZOLE 40 MG TABLET PO SCH (05:31)
[2023-01-09] MEDS: methylPREDNISolone SUCCINATE 40 MG/ML VIAL IVP SCH (05:31)
[2023-01-09] MEDS: FUROSEMIDE 40 MG/4 ML VIAL IVP SCH ×2 (05:31→14:06)
[2023-01-09] MEDS: BUDESONIDE 0.5 MG/2 ML NEB INH SCH ×2 (06:40→17:59)
[2023-01-09] MEDS: IPRATROPIUM/ALBUTEROL 3 ML NEB INH SCH ×4 (06:40→17:57)
[2023-01-09] MEDS: INSULIN LISPRO 300 UNIT/3 ML PEN SUBQ SCH ×4 (08:13→21:28)
[2023-01-09] MEDS: POTASSIUM CHLORIDE 20 MEQ TABLET PO SCH (08:14)
[2023-01-09] MEDS: CHOLECALCIFEROL 400 UNIT TABLET PO SCH (08:14)
[2023-01-09] MEDS: MULTIVITAMIN W/MINERALS TABLET PO SCH (08:14)
[2023-01-09] MEDS: carvediloL 12.5 MG TABLET PO SCH ×2 (08:14→21:26)
[2023-01-09] MEDS: guaiFENesin 600 MG TABLET PO SCH ×2 (08:14→21:26)
[2023-01-09] MEDS: ASPIRIN EC 81 MG TABLET PO SCH (08:15)
[2023-01-09] MEDS: AMOX/CLAV 875 MG/125 MG TABLET PO SCH ×2 (08:15→21:26)
[2023-01-09] MEDS: ENOXAPARIN 40 MG/0.4 ML SYRINGE SUBQ SCH ×2 (08:15→21:27)
[2023-01-09] MEDS: LOSARTAN 50 MG TABLET PO SCH (08:15)
[2023-01-09] MEDS: CALCIUM CITRATE 250 MG TABLET PO SCH (08:15)
[2023-01-09] MEDS: methocarbamoL 500 MG TABLET PO PRN (08:15)
[2023-01-09] MEDS: ACETAMINOPHEN 325 MG TABLET PO PRN (08:16)
[2023-01-09] MEDS: HYDROcod/ACETAM 7.5 MG/325 MG TABLET PO PRN (11:14)
--- NOTE | 2023-01-09 16:00 | PROVIDER PROGRESS NOTE ---
Assessment/Plan - Problem List (1) Acute and chronic respiratory failure with hypoxia Assessment/Plan: Assessment/Plan: This is multifactorial: from acute bronchitis, COPD exacerbation and CHF exacerbation. She normally uses 2 L O2 at home and she came in hypoxic while on her 2 L of O2. She needed 3 L O2 over night. Today at rest she is back down to 2 L O2. Plan: Cont supplemental O2 with target O2 saturations greater than 88% Cont her home BiPAP machine to be used while she is here Cont to treat each of the underlying problems. On the day of discharge she will need a repeat oximetry test, to see if she needs different home O2 ordered. (2) Bronchitis with acute wheezing Conclusion/Plan: She has not made a sputum sample to send for cx I started her on empiric po Augmentin. Plan: Await sputum sample to send for culture. Cont Solu-Medrol and I will start weaning down, from 80 mg TID to 40 mg TID today Cont DuoNeb treatments scheduled 4 times daily and prn q4 hours Cont scheduled Mucinex for pulmonary toilet I will add Montelukast qpm I will order chest PT TID with RT (3) CHF exacerbation Conclusion/Plan: Troponins were checked this admission, and she ruled out for an NC, as the cause of this CHF exacerbation She claims that her caregivers who prepare her meals "do not follow a low salt diet". She has anasarca with 4+ pitting edema all the way to her hips and her abdominal wall Since admission despite getting iv BID Lasix, she has only (-) fluid balance of 300 cc. I reviewed her I's and O's today, and she drinks 2300 cc of fluids a day. Plan: Cont IV twice daily Lasix and follow her I's and O's, daily weights, electrolytes and magnesium. With this amount of anasarca, there is probably more than 10 pounds of water weight to diurese off. I added a 2000 cc/day total fluid restriction Continue her usual cardiac medications I ordered an Echo w/ [facility], to rechecl LVEF and RVEF. (Echo ordered 2 days ago but we have no watch technician here until tomorrow). For the last several years her Echoes have shown LV diastolic heart failure, which she may still have but I suspect that she now may have Cor pulmonale, given this much anasarca, since in the past the RV was reported to be normal size with normal function. January 06, 2023-have increased Lasix to 40 mg IV twice daily and monitor I's and O's. She has not had adequate output with 20 mg IV twice daily. Echocardiogram showed 1. Overall left ventricular systolic function is lower limits of normal with an ejection fraction of 50 to 55%. 2. Right ventricular systolic function is mildly impaired. 3. No concerning cardiac valve disease noted. (4) Anasarca She stated that she thought "this is the usual amount of leg edema she always has on exam". But this is anasarca with 4+ pitting edema all the way to her hips and her abdominal wall. I suspect she has >10 lbs of fluid to diurese off. In the past her RV was reported to be normal size with normal function on Echo, but I suspect that she now has Cor pulmonale, given this much anasarca. Since admission despite being on iv BID Lasix, she has only (-) fluid balance of 300 cc. I reviewed her I's and O's, and she drinks 2300 cc of fluids a day. Also, she claims that "her caregivers who prepare her meals do not follow a low salt diet". Plan: Cont IV twice daily Lasix and follow her I's and O's, daily weights I added a 2000 cc/day total fluid restriction, it may even need to be stricter I will order Risk Management Specialist consult for CHF [facility] January 07, 2023-difficult to follow I's and O's as patient is using pure wick along with having some urine to go into a diaper so we will place Adler for appropriate AVELINO management. Have increased Lasix to 60 mg IV twice daily. January 08, 2023-patient patient had Adler placed yesterday and she is getting good diuresis we will decrease Lasix to 40 mg IV twice daily and monitor (5) Paroxysmal Afib On 01/04 her telemetry showed she went into Afib, first with a controlled HR, then Afib with RVR at 120-140 sustained. I had to give Lopressor 5 mg iv x1. She has had Parox Afib before, per records. I suspect we saw this A-fib with RVR because she missed 2 doses, therefore 24 hours, of her Carvedilol. Plan: I have resumed her usual Coreg twice daily dose, for heart rate control Her CHADS2 score is 1 or 2, so she needs to be at least on an asprin daily, for stroke prophylaxis. And she is on 1 baby aspirin daily, which is being continued. (6) Morbid obesity with BMI of 45.0-49.9, adult Conclusion/Plan: This complicates most of her care. She has become sedentary, only wheelchair- bound and bedbound and needs caregivers. (During a previous hospitalization it was documented that she would rather defecate into a diaper then go on to a commode). She has obesity hypoventilation syndrome Because of her obesity-hypoventilation syndrome she was to be on a CPAP machine and I ordered her home CPAP machine to be used here Plan: Will order OOB to chair with a sera lift Depending on if she wants to try to stand to pivot and get into a wheelchair, I will order PT a - Current Meds Current Meds: Current Medications Generic Name Dose Route Start Last Admin Trade Name Parveen PRN Reason Stop Dose Admin Acetaminophen 650 mg 01/03/23 17:19 01/09/23 08:16 Acetaminophen 325 Mg Tablet PO 650 mg Q4HR PRN Administration Pain 1 to 4, or Fever Hydrocodone Bitart/Acetaminophen 1 tab 01/04/23 13:14 01/09/23 11:14 Hydrocod/Acetam 7.5 Mg/325 Mg Tablet PO 1 tab BID PRN Administration PAIN 5-7 Albuterol/Ipratropium 3 ml 01/03/23 19:00 01/09/23 14:41 Ipratropium/Albuterol 3 Ml Neb INH 3 ml RTQID TAI Administration Amitriptyline HCl 50 mg 01/04/23 21:00 01/08/23 20:23 Amitriptyline 25 Mg Tablet PO 50 mg QPM TAI Administration Amoxicillin/Clavulanate Potassium 1 tab 01/04/23 10:09 01/09/23 08:15 Amox/Clav 875 Mg/125 Mg Tablet PO 1 tab BID ATI Administration Aspirin 81 mg 01/05/23 09:00 01/09/23 08:15 Aspirin Ec 81 Mg Tablet PO 81 mg DAILY TAI Administration Atorvastatin Calcium 20 mg 01/04/23 21:00 01/08/23 20:14 Atorvastatin 10 Mg Tablet PO 20 mg QPM TAI Administration Budesonide 0.5 mg 01/03/23 19:00 01/09/23 06:40 Budesonide 0.5 Mg/2 Ml Neb INH 0.5 mg RTBID TAI Administration Calcium Citrate 500 mg 01/05/23 09:00 01/09/23 08:15 Calcium Citrate 250 Mg Tablet PO 500 mg DAILY TAI Administration Carvedilol 25 mg 01/06/23 21:00 01/09/23 08:14 Carvedilol 12.5 Mg Tablet PO 25 mg BID TAI Administration Cholecalciferol 400 unit 01/05/23 09:00 01/09/23 08:14 Cholecalciferol 400 Unit Tablet PO 400 unit DAILY TAI Administration Enoxaparin Sodium 40 mg 01/05/23 21:00 01/09/23 08:15 Enoxaparin 40 Mg/0.4 Ml Syringe SUBQ 40 mg BID TAI Administration Furosemide 40 mg 01/08/23 14:00 01/09/23 14:06 Furosemide 40 Mg/4 Ml Vial IVP 40 mg BIDDIURETIC TAI Administration Guaifenesin 600 mg 01/03/23 21:00 01/09/23 08:14 Guaifenesin 600 Mg Tablet PO 600 mg BID TAI Administration Insulin Human Lispro 1 - 5 unit 01/06/23 12:00 01/09/23 12:09 Insulin Lispro 300 Unit/3 Ml Pen SUBQ 2 unit 0800,1200,1700,2100 TAI Administration Protocol Losartan Potassium 25 mg 01/05/23 09:00 01/09/23 08:15 Losartan 50 Mg Tablet PO 25 mg DAILY TAI Administration Methocarbamol 750 mg 01/04/23 13:33 01/09/23 08:15 Methocarbamol 500 Mg Tablet PO 750 mg BID PRN Administration Spasms Metoprolol Tartrate 5 mg 01/04/23 21:37 01/06/23 18:15 Metoprolol 5 Mg/5 Ml Vial IVP 5 mg Q6H PRN Administration Hypertensive Emergency Mineral Oil 1 applic 01/03/23 21:22 01/04/23 21:08 Min Oil/Dimethicon/Coconut Oil 92 Gm Tube TOP 1 applic PRN PRN Administration Skin Care Montelukast Sodium 10 mg 01/05/23 21:00 01/08/23 20:14 Montelukast 10 Mg Tablet PO 10 mg QPM TAI Administration Multi-Ingredient Ointment 1 applic 01/04/23 13:14 01/05/23 12:15 Zinc Oxide 20% Oint 30 Gm Tube TOP 1 applic PRN PRN Administration Skin Care Multivitamins/Minerals 1 tab 01/05/23 08:00 01/09/23 08:14 Multivitamin W/Minerals Tablet PO 1 tab DAILYWM TAI Administration Pantoprazole Sodium 40 mg 01/05/23 07:00 01/09/23 05:31 Pantoprazole 40 Mg Tablet PO 40 mg QDAC TAI Administration Potassium Chloride 20 meq 01/04/23 11:00 01/09/23 08:14 Potassium Chloride 20 Meq Tablet PO 20 meq DAILYWM TAI Administration Pregabalin 50 mg 01/04/23 14:00 01/09/23 14:06 Pregabalin 25 Mg Capsule PO 50 mg TID TAI Administration Sodium Chloride 10 ml 01/03/23 17:19 01/07/23 06:08 Sodium Chloride Flush 0.9% 10 Ml Syringe IVP 10 ml PRN PRN Administration NEEDED PER PROVIDER ORDERS Sodium Chloride 10 ml 01/04/23 01:00 01/09/23 11:15 Sodium Chloride Flush 0.9% 10 Ml Syringe IVP 10 ml 0100,0900,1700 TAI Administration - Lab Result Fish Bone Diagrams: 01/08/23 05:24 01/08/23 05:24 - Additional Planning My Orders: My Active Orders 01/10/23 05:00 BMP, RFLX TO IONIZED CA IF [CHEM] DAILYLAB CBC - COMP BLD CT W/AUTO DIFF [HEME] DAILYLAB MAGNESIUM [CHEM] DAILYLAB 01/11/23 05:00 BMP, RFLX TO IONIZED CA IF [CHEM] DAILYLAB CBC - COMP BLD CT W/AUTO DIFF [HEME] DAILYLAB MAGNESIUM [CHEM] DAILYLAB 01/12/23 05:00 BMP, RFLX TO IONIZED CA IF [CHEM] DAILYLAB CBC - COMP BLD CT W/AUTO DIFF [HEME] DAILYLAB MAGNESIUM [CHEM] DAILYLAB 01/13/23 05:00 BMP, RFLX TO IONIZED CA IF [CHEM] DAILYLAB CBC - COMP BLD CT W/AUTO DIFF [HEME] DAILYLAB MAGNESIUM [CHEM] DAILYLAB 01/14/23 05:00 BMP, RFLX TO IONIZED CA IF [CHEM] DAILYLAB CBC - COMP BLD CT W/AUTO DIFF [HEME] DAILYLAB MAGNESIUM [CHEM] DAILYLAB 01/15/23 05:00 BMP, RFLX TO IONIZED CA IF [CHEM] DAILYLAB CBC - COMP BLD CT W/AUTO DIFF [HEME] DAILYLAB MAGNESIUM [CHEM] DAILYLAB Subjective - Subjective Patient Reports: No Complaints Objective Vital Signs: Vital Signs - 24 hr 01/08/23 01/08/23 01/08/23 17:00 19:30 19:40 Temperature 36.4 C L Heart Rate 150 H Heart Rate [ 50 L Brachial] Heart Rate [ Monitoring electrodes] Respiratory 18 28 H Rate Blood Pressure 110/90 H [Left Brachial artery] Blood Pressure [Left Radial artery] O2 Saturation 94 If not protocol 1.5 2 2 : Oxygen Flow, liters/minute 01/08/23 01/08/23 01/08/23 20:18 20:25 22:18 Temperature 37.5 C Heart Rate Heart Rate [ 134 H 107 H 77 Brachial] Heart Rate [ Monitoring electrodes] Respiratory 18 Rate Blood Pressure 141/109 H [Left Brachial artery] Blood Pressure [Left Radial artery] O2 Saturation 94 94 If not protocol 1.5 1.5 : Oxygen Flow, liters/minute 01/09/23 01/09/23 01/09/23 00:23 05:00 06:44 Temperature 36.3 C L 36.3 C L Heart Rate 66 Heart Rate [ Brachial] Heart Rate [ 105 H 89 Monitoring electrodes] Respiratory 18 18 18 Rate Blood Pressure [Left Brachial artery] Blood Pressure 145/63 H 121/58 L [Left Radial artery] O2 Saturation 95 93 If not protocol 1.5 2 2 : Oxygen Flow, liters/minute 01/09/23 01/09/23 01/09/23 06:46 08:00 10:51 Temperature 36.2 C L Heart Rate 68 Heart Rate [ Brachial] Heart Rate [ 74 Monitoring electrodes] Respiratory 20 18 Rate Blood Pressure [Left Brachial artery] Blood Pressure 116/77 [Left Radial artery] O2 Saturation 93 If not protocol 2 2 1.5 : Oxygen Flow, liters/minute 01/09/23 01/09/23 01/09/23 12:08 14:43 15:48 Temperature 36.3 C L 36.5 C Heart Rate 79 Heart Rate [ 115 H 64 Brachial] Heart Rate [ Monitoring electrodes] Respiratory 18 16 20 Rate Blood Pressure [Left Brachial artery] Blood Pressure 110/53 L 110/65 [Left Radial artery] O2 Saturation 97 97 If not protocol 2 2 2 : Oxygen Flow, liters/minute Oxygen O2 Source [Without Activity] Nasal cannula O2 Source [With Activity] Nasal cannula O2 Source Nasal cannula Oxygen Flow Rate 3 I&O (Last 24 Hrs): Intake and Output Totals x24h 01/07/23 01/08/23 01/09/23 23:59 23:59 23:59 Intake Total 1720 1680 1510 Output Total 1850 2875 1950 Balance -130 -1195 -440 General: Alert, Oriented x3 HEENT: Atraumatic Respiratory: Other (Decreased breath sounds at her bases) Abdomen: Soft, No tenderness Extremities: Other (2+ lower extremity edema) - Results Results: Laboratory Results WBC 10.1 x10^3/uL (4.8-10.8) 01/08/23 05:24 RBC 4.22 10^6/uL (4.20-5.40) 01/08/23 05:24 Hgb 12.6 g/dL (12.0-16.0) 01/08/23 05:24 Hct 41.4 % (37.0-47.0) 01/08/23 05:24 MCV 98.1 fL (81.0-99.0) 01/08/23 05:24 MCH 29.9 pg (27.0-31.0) 01/08/23 05:24 MCHC 30.4 g/dL (32.0-36.0) L 01/08/23 05:24 RDW 13.7 % (12.0-15.0) 01/08/23 05:24 Plt Count 253 10^3/uL (130-450) 01/08/23 05:24 MPV 11.1 fL (7.9-10.8) H 01/08/23 05:24 Neut # (Auto) Not Reportable 01/08/23 05:24 Lymph # (Auto) Not Reportable 01/08/23 05:24 Ashley # (Auto) Not Reportable 01/08/23 05:24 Eos # (Auto) Not Reportable 01/08/23 05:24 Baso # (Auto) Not Reportable 01/08/23 05:24 Absolute Nucleated RBC Not Reportable 01/08/23 05:24 Total Counted 100 01/08/23 05:24 Band Neuts % (Manual) 0 % (0-10) 01/08/23 05:24 Abnorm Lymph % (Manual) 0 % 01/08/23 05:24 Myelocytes % 4 % (-0) H 01/08/23 05:24 Nucleated RBC % Not Reportable 01/08/23 05:24 Neutrophils # (Manual) 8.6 10^3/uL (1.5-6.6) H 01/08/23 05:24 Lymphocytes # (Manual) 0.9 10^3/uL (1.5-3.5) L 01/08/23 05:24 Monocytes # (Manual) 0.2 10^3/uL (0.0-1.0) 01/08/23 05:24 Eosinophils # (Manual) 0.0 10^3/uL (0-0.7) 01/08/23 05:24 Basophils # (Manual) 0.0 10^3/uL (0-0.1) 01/08/23 05:24 Differential Comment MANUAL DIFFERENTIAL 01/08/23 05:24 WBC Morphology NORMAL APPEARANCE (NORMAL) 01/08/23 05:24 Platelet Estimate NORMAL (130-450,000) (NORMAL) 01/08/23 05:24 Platelet Morphology NORMAL APPEARANCE (NORMAL) 01/08/23 05:24 RBC Morph Micro Appear NORMAL APPEARANCE (NORMAL) 01/08/23 05:24 Sodium 144 mmol/L (135-145) 01/08/23 05:24 Potassium 3.4 mmol/L (3.5-5.0) L 01/08/23 05:24 Chloride 97 mmol/L (101-111) L 01/08/23 05:24 Carbon Dioxide 39 mmol/L (21-32) H* 01/08/23 05:24 Anion Gap 8.0 (6-13) 01/08/23 05:24 BUN 50 mg/dL (6-20) H 01/08/23 05:24 Creatinine 0.9 mg/dL (0.4-1.0) 01/08/23 05:24 Estimated GFR (MDRD) 60 (>89) L 01/08/23 05:24 Glucose 218 mg/dL (70-100) H 01/08/23 05:24 POC Whole Bld Glucose 184 mg/dL (70 - 100) H 01/09/23 11:45 Estimat Average Glucose 131 mg/dL (70-100) H 01/07/23 08:38 Hemoglobin A1c % 6.2 % (4.27-6.07) H 01/07/23 08:38 Calcium 9.8 mg/dL (8.5-10.3) 01/08/23 05:24 Magnesium 2.4 mg/dL (1.7-2.8) 01/08/23 05:24 Total Bilirubin 0.6 mg/dL (0.2-1.0) 01/03/23 12:21 AST 17 IU/L (10-42) 01/03/23 12:21 ALT 19 IU/L (10-60) 01/03/23 12:21 Alkaline Phosphatase 101 IU/L (42-121) 01/03/23 12:21 Troponin I High Sens 23.4 ng/L (2.3-14.8) H* 01/03/23 18:45 B-Natriuretic Peptide 328 pg/mL (5-100) H 01/04/23 05:06 Total Protein 7.6 g/dL (6.7-8.2) 01/03/23 12:21 Albumin 3.6 g/dL (3.2-5.5) 01/03/23 12:21 Globulin 4.0 g/dL (2.1-4.2) 01/03/23 12:21 Albumin/Globulin Ratio 0.9 (1.0-2.2) L 01/03/23 12:21 Lipase 31 U/L (22-51) 01/03/23 12:21 Nasal Adenovirus (PCR) NOT DETECTED 01/03/23 12:25 Nasal B. parapertussis DNA (PCR) NOT DETECTED 01/03/23 12:25 Nasal Coronavir 229E PCR NOT DETECTED 01/03/23 12:25 Nasal Coronavir HKU1 PCR NOT DETECTED 01/03/23 12:25 Nasal Coronavir NL63 PCR NOT DETECTED 01/03/23 12:25 Nasal Coronavir OC43 PCR NOT DETECTED 01/03/23 12:25 Nasal Enterovir/Rhinovir PCR NOT DETECTED 01/03/23 12:25 Nasal Influenza B PCR NOT DETECTED 01/03/23 12:25 Nasal Influenza A PCR NOT DETECTED 01/03/23 12:25 Nasal Parainfluen 1 PCR NOT DETECTED 01/03/23 12:25 Nasal Parainfluen 2 PCR NOT DETECTED 01/03/23 12:25 Nasal Parainfluen 3 PCR NOT DETECTED 01/03/23 12:25 Nasal Parainfluen 4 PCR NOT DETECTED 01/03/23 12:25 Nasal RSV (PCR) NOT DETECTED 01/03/23 12:25 Nasal B.pertussis DNA PCR NOT DETECTED 01/03/23 12:25 Nasal C.pneumoniae (PCR) NOT DETECTED 01/03/23 12:25 Ankit Human Metapneumo PCR NOT DETECTED 01/03/23 12:25 Nasal M.pneumoniae (PCR) NOT DETECTED 01/03/23 12:25 Nasal SARS-CoV-2 (PCR) NOT DETECTED 01/03/23 12:25 - Procedures Procedures: Procedures CATARAC PHACOEMULS/ASPIR (04/27/14) INSERT LENS AT CATAR EXT (04/27/14) INSERTION OF INFUSION DEV INTO SUP VENA CAVA, PERC APPROACH (06/02/22) REPLACEMENT OF LEFT LENS WITH SYNTH SUB, PERC APPROACH (09/25/16) ABX Reporting Has patient been on IV antibiotics over the past 48 hours?: No
[2023-01-09] MEDS: MONTELUKAST 10 MG TABLET PO SCH (21:26)
[2023-01-09] MEDS: AMITRIPTYLINE 25 MG TABLET PO SCH (21:26)
[2023-01-09] MEDS: ATORVASTATIN 10 MG TABLET PO SCH (21:27)
[2023-01-10] MEDS: ACETAMINOPHEN 325 MG TABLET PO PRN ×2 (00:11→16:39)
[2023-01-10] MEDS: SODIUM CHLORIDE FLUSH 0.9% 10 ML SYRINGE IVP SCH ×3 (00:12→16:40)
[2023-01-10 05:12] LABS: HGB - HEMOGLOBIN 11.9 g/dL (12.0-16.0)
[2023-01-10 05:15] LABS: BASOPHILS % (AUTO) 0.4 %; EOSINOPHILS % (AUTO) 0.3 %; HCT - HEMATOCRIT 39.3 % (37.0-47.0); LYMPHOCYTES % (AUTO) 12.2 %; MEAN CORPUSCULAR HEMOGLOBIN 30.2 pg (27.0-31.0); MEAN CORPUSCULAR HGB CONC 30.3 g/dL (32.0-36.0); MEAN CORPUSCULAR VOLUME 99.7 fL (81.0-99.0); MEAN PLATELET VOLUME 11.2 fL (7.9-10.8); MONOCYTES % (AUTO) 9.6 %; NEUTROPHILS % (AUTO) 73.1 %; PLT - PLATELET COUNT 216 10^3/uL (130-450); RED BLOOD COUNT 3.94 10^6/uL (4.20-5.40); RED CELL DISTRIBUTION WIDTH 13.6 % (12.0-15.0); WHITE BLOOD COUNT 12.5 x10^3/uL (4.8-10.8)
[2023-01-10 05:21] LABS: ABNORMAL LYMPHS % (MANUAL) 0 %
[2023-01-10 05:41] LABS: BUN - BLOOD UREA NITROGEN 58 mg/dL (6-20); CALCIUM 9.5 mg/dL (8.5-10.3); CHLORIDE 95 mmol/L (101-111); GFR - MDRD 53 (>89); GLUCOSE 141 mg/dL (70-100); IONIZED CALCIUM IF INDICATED NO; MAGNESIUM 2.2 mg/dL (1.7-2.8); SODIUM 143 mmol/L (135-145)
[2023-01-10 05:44] LABS: CARBON DIOXIDE - CO2 41 mmol/L (21-32)
[2023-01-10 06:02] LABS: BAND NEUTROPHILS % (MANUAL) 1 %; DIFFERENTIAL COMMENT MANUAL DIFFERENTIAL; LYMPHOCYTES # (MANUAL) 1.4 10^3/uL (1.5-3.5); LYMPHOCYTES % (MANUAL) 11 %; METAMYELOCYTES % (MANUAL) 1 %; MONOCYTES # (MANUAL) 1.4 10^3/uL (0.0-1.0); MYELOCYTES % (MANUAL) 1 %; NEUTROPHILS # (MANUAL) 9.5 10^3/uL (1.5-6.6); PLATELET ESTIMATE, MANUAL NORMAL (130-450,000) (NORMAL); RBC MORPHOLOGY (MULTIPLE) NORMAL APPEARANCE (NORMAL)
[2023-01-10] MEDS: IPRATROPIUM/ALBUTEROL 3 ML NEB INH SCH ×3 (06:15→15:12)
[2023-01-10] MEDS: BUDESONIDE 0.5 MG/2 ML NEB INH SCH (06:15)
[2023-01-10] MEDS: PANTOPRAZOLE 40 MG TABLET PO SCH (06:47)
[2023-01-10] MEDS: FUROSEMIDE 40 MG/4 ML VIAL IVP SCH ×2 (06:47→14:06)
[2023-01-10] MEDS: PREGABALIN 25 MG CAPSULE PO SCH ×3 (06:48→21:50)
[2023-01-10] MEDS: INSULIN LISPRO 300 UNIT/3 ML PEN SUBQ SCH ×4 (08:13→21:49)
[2023-01-10] MEDS: CALCIUM CITRATE 250 MG TABLET PO SCH (08:14)
[2023-01-10] MEDS: LOSARTAN 50 MG TABLET PO SCH (08:14)
[2023-01-10] MEDS: acetaZOLAMIDE 250 MG TABLET PO SCH (08:14)
[2023-01-10] MEDS: AMOX/CLAV 875 MG/125 MG TABLET PO SCH ×2 (08:14→21:50)
[2023-01-10] MEDS: CHOLECALCIFEROL 400 UNIT TABLET PO SCH (08:14)
[2023-01-10] MEDS: ASPIRIN EC 81 MG TABLET PO SCH (08:14)
[2023-01-10] MEDS: POTASSIUM CHLORIDE 20 MEQ TABLET PO SCH (08:14)
[2023-01-10] MEDS: MULTIVITAMIN W/MINERALS TABLET PO SCH (08:14)
[2023-01-10] MEDS: ENOXAPARIN 40 MG/0.4 ML SYRINGE SUBQ SCH ×2 (08:15→21:48)
[2023-01-10] MEDS: guaiFENesin 600 MG TABLET PO SCH ×2 (08:15→21:49)
[2023-01-10] MEDS: carvediloL 12.5 MG TABLET PO SCH ×2 (08:15→21:50)
[2023-01-10] MEDS ORDERED: POTASSIUM CHLORIDE 20 MEQ TABLET PO SCH (09:00)
--- NOTE | 2023-01-10 14:08 | PROVIDER PROGRESS NOTE ---
Assessment/Plan - Problem List (1) Acute and chronic respiratory failure with hypoxia Assessment/Plan: Assessment/Plan: Assessment/Plan: This is multifactorial: from acute bronchitis, COPD exacerbation and CHF exacerbation. She normally uses 2 L O2 at home and she came in hypoxic while on her 2 L of O2. She needed 3 L O2 over night. Today at rest she is back down to 2 L O2. Plan: Cont supplemental O2 with target O2 saturations greater than 88% Cont her home BiPAP machine to be used while she is here Cont to treat each of the underlying problems. On the day of discharge she will need a repeat oximetry test, to see if she needs different home O2 ordered. (2) Bronchitis with acute wheezing Conclusion/Plan: She has not made a sputum sample to send for cx I started her on empiric po Augmentin. Plan: Await sputum sample to send for culture. Cont Solu-Medrol and I will start weaning down, from 80 mg TID to 40 mg TID today Cont DuoNeb treatments scheduled 4 times daily and prn q4 hours Cont scheduled Mucinex for pulmonary toilet I will add Montelukast qpm I will order chest PT TID with RT 01/08/2023- DCed Solumedrol (3) CHF exacerbation Conclusion/Plan: Troponins were checked this admission, and she ruled out for an WI, as the cause of this CHF exacerbation She claims that her caregivers who prepare her meals "do not follow a low salt diet". She has anasarca with 4+ pitting edema all the way to her hips and her abdominal wall Since admission despite getting iv BID Lasix, she has only (-) fluid balance of 300 cc. I reviewed her I's and O's today, and she drinks 2300 cc of fluids a day. Plan: Cont IV twice daily Lasix and follow her I's and O's, daily weights, electrolytes and magnesium. With this amount of anasarca, there is probably more than 10 pounds of water weight to diurese off. I added a 2000 cc/day total fluid restriction Continue her usual cardiac medications I ordered an Echo w/ [facility], to rechecl LVEF and RVEF. (Echo ordered 2 days ago but we have no dental technician here until tomorrow). For the last several years her Echoes have shown LV diastolic heart failure, which she may still have but I suspect that she now may have Cor pulmonale, given this much anasarca, since in the past the RV was reported to be normal size with normal function. January 06, 2023-have increased Lasix to 40 mg IV twice daily and monitor I's and O's. She has not had adequate output with 20 mg IV twice daily. Echocardiogram showed 1. Overall left ventricular systolic function is lower limits of normal with an ejection fraction of 50 to 55%. 2. Right ventricular systolic function is mildly impaired. 3. No concerning cardiac valve disease noted. (4) Anasarca She stated that she thought "this is the usual amount of leg edema she always has on exam". But this is anasarca with 4+ pitting edema all the way to her hips and her abdominal wall. I suspect she has >10 lbs of fluid to diurese off. In the past her RV was reported to be normal size with normal function on Echo, but I suspect that she now has Cor pulmonale, given this much anasarca. Since admission despite being on iv BID Lasix, she has only (-) fluid balance of 300 cc. I reviewed her I's and O's, and she drinks 2300 cc of fluids a day. Also, she claims that "her caregivers who prepare her meals do not follow a low salt diet". Plan: Cont IV twice daily Lasix and follow her I's and O's, daily weights I added a 2000 cc/day total fluid restriction, it may even need to be stricter I will order Hospice Administrator consult for CHF [facility] January 07, 2023-difficult to follow I's and O's as patient is using pure wick along with having some urine to go into a diaper so we will place Adler for appropriate AVELINO management. Have increased Lasix to 60 mg IV twice daily. January 08, 2023-patient patient had Adler placed yesterday and she is getting good diuresis we will decrease Lasix to 40 mg IV twice daily and monitor January 09, 2023-continues with diuresis and had proximately 1 L diuresis yesterday. She does have increasing bicarb secondary to some intravascular volume depleti on (contraction alkalosis )from her diuresis so will start her on Diamox daily. (5) Paroxysmal Afib On 6/4 her telemetry showed she went into Afib, first with a controlled HR, then Afib with RVR at 120-140 sustained. I had to give Lopressor 5 mg iv x1. She has had Parox Afib before, per records. I suspect we saw this A-fib with RVR because she missed 2 doses, therefore 24 hours, of her Carvedilol. Plan: I have resumed her usual Coreg twice daily dose, for heart rate control Her CHADS2 score is 1 or 2, so she needs to be at least on an asprin daily, for stroke prophylaxis. And she is on 1 baby aspirin daily, which is being continued. (6) Morbid obesity with BMI of 45.0-49.9, adult Conclusion/Plan: This complicates most of her care. She has become sedentary, only wheelchair- bound and bedbound and needs caregivers. (During a previous hospitalization it was documented that she would rather defecate into a diaper then go on to a comm ode). She has obesity hypoventilation syndrome Because of her obesity-hypoventilation syndrome she was to be on a CPAP machine and I ordered her home CPAP machine to be used here Plan: Will order OOB to chair with a sera lift Depending on if she wants to try to stand to pivot and get into a wheelchair, I will order PT a - Current Meds Current Meds: Current Medications Generic Name Dose Route Start Last Admin Trade Name Freq PRN Reason Stop Dose Admin Acetaminophen 650 mg 01/03/23 17:19 01/10/23 00:11 Acetaminophen 325 Mg Tablet PO 650 mg Q4HR PRN Administration Pain 1 to 4, or Fever Hydrocodone Bitart/Acetaminophen 1 tab 01/04/23 13:14 01/09/23 11:14 Hydrocod/Acetam 7.5 Mg/325 Mg Tablet PO 1 tab BID PRN Administration PAIN 5-7 Acetazolamide 250 mg 01/10/23 09:00 01/10/23 08:14 Acetazolamide 250 Mg Tablet PO 250 mg DAILY TAI Administration Albuterol/Ipratropium 3 ml 01/03/23 19:00 01/10/23 11:21 Ipratropium/Albuterol 3 Ml Neb INH 3 ml RTQID TAI Administration Amitriptyline HCl 50 mg 01/04/23 21:00 01/09/23 21:26 Amitriptyline 25 Mg Tablet PO 50 mg QPM TAI Administration Amoxicillin/Clavulanate Potassium 1 tab 01/04/23 10:09 01/10/23 08:14 Amox/Clav 875 Mg/125 Mg Tablet PO 1 tab BID TAI Administration Aspirin 81 mg 01/05/23 09:00 01/10/23 08:14 Aspirin Ec 81 Mg Tablet PO 81 mg DAILY TAI Administration Atorvastatin Calcium 20 mg 01/04/23 21:00 01/09/23 21:27 Atorvastatin 10 Mg Tablet PO 20 mg QPM TAI Administration Budesonide 0.5 mg 01/03/23 19:00 01/10/23 06:15 Budesonide 0.5 Mg/2 Ml Neb INH 0.5 mg RTBID TAI Administration Calcium Citrate 500 mg 01/05/23 09:00 01/10/23 08:14 Calcium Citrate 250 Mg Tablet PO 500 mg DAILY TAI Administration Carvedilol 25 mg 01/06/23 21:00 01/10/23 08:15 Carvedilol 12.5 Mg Tablet PO 25 mg BID TAI Administration Cholecalciferol 400 unit 01/05/23 09:00 01/10/23 08:14 Cholecalciferol 400 Unit Tablet PO 400 unit DAILY TAI Administration Enoxaparin Sodium 40 mg 01/05/23 21:00 01/10/23 08:15 Enoxaparin 40 Mg/0.4 Ml Syringe SUBQ 40 mg BID TAI Administration Furosemide 40 mg 01/08/23 14:00 01/10/23 14:06 Furosemide 40 Mg/4 Ml Vial IVP Not Given BIDDIURETIC TAI Guaifenesin 600 mg 01/03/23 21:00 01/10/23 08:15 Guaifenesin 600 Mg Tablet PO 600 mg BID TAI Administration Insulin Human Lispro 1 - 5 unit 01/06/23 12:00 01/10/23 11:58 Insulin Lispro 300 Unit/3 Ml Pen SUBQ 1 unit 0800,1200,1700,2100 TAI Administration Protocol Losartan Potassium 25 mg 01/05/23 09:00 01/10/23 08:14 Losartan 50 Mg Tablet PO 25 mg DAILY TAI Administration Methocarbamol 750 mg 01/04/23 13:33 01/09/23 08:15 Methocarbamol 500 Mg Tablet PO 750 mg BID PRN Administration Spasms Metoprolol Tartrate 5 mg 01/04/23 21:37 01/06/23 18:15 Metoprolol 5 Mg/5 Ml Vial IVP 5 mg Q6H PRN Administration Hypertensive Emergency Mineral Oil 1 applic 01/03/23 21:22 01/04/23 21:08 Min Oil/Dimethicon/Coconut Oil 92 Gm Tube TOP 1 applic PRN PRN Administration Skin Care Montelukast Sodium 10 mg 01/05/23 21:00 01/09/23 21:26 Montelukast 10 Mg Tablet PO 10 mg QPM TAI Administration Multi-Ingredient Ointment 1 applic 01/04/23 13:14 01/05/23 12:15 Zinc Oxide 20% Oint 30 Gm Tube TOP 1 applic PRN PRN Administration Skin Care Multivitamins/Minerals 1 tab 01/05/23 08:00 01/10/23 08:14 Multivitamin W/Minerals Tablet PO 1 tab DAILYWM TAI Administration Pantoprazole Sodium 40 mg 01/05/23 07:00 01/10/23 06:47 Pantoprazole 40 Mg Tablet PO 40 mg QDAC TAI Administration Pregabalin 50 mg 01/04/23 14:00 01/10/23 14:06 Pregabalin 25 Mg Capsule PO 50 mg TID TAI Administration Sodium Chloride 10 ml 01/03/23 17:19 01/07/23 06:08 Sodium Chloride Flush 0.9% 10 Ml Syringe IVP 10 ml PRN PRN Administration NEEDED PER PROVIDER ORDERS Sodium Chloride 10 ml 01/04/23 01:00 01/10/23 08:15 Sodium Chloride Flush 0.9% 10 Ml Syringe IVP 10 ml 0100,0900,1700 TAI Administration - Lab Result Fish Bone Diagrams: 01/10/23 05:01 01/10/23 05:01 - Additional Planning My Orders: My Active Orders 01/10/23 Social Work Consult [CONS] Routine 01/10/23 09:00 acetaZOLAMIDE [Diamox] 250 mg PO DAILY 01/10/23 17:00 Potassium Chloride [Micro-K] 30 meq PO BIDWM 01/11/23 05:00 BMP, RFLX TO IONIZED CA IF [CHEM] DAILYLAB CBC - COMP BLD CT W/AUTO DIFF [HEME] DAILYLAB MAGNESIUM [CHEM] DAILYLAB 01/12/23 05:00 BMP, RFLX TO IONIZED CA IF [CHEM] DAILYLAB CBC - COMP BLD CT W/AUTO DIFF [HEME] DAILYLAB MAGNESIUM [CHEM] DAILYLAB 01/13/23 05:00 BMP, RFLX TO IONIZED CA IF [CHEM] DAILYLAB CBC - COMP BLD CT W/AUTO DIFF [HEME] DAILYLAB MAGNESIUM [CHEM] DAILYLAB 01/14/23 05:00 BMP, RFLX TO IONIZED CA IF [CHEM] DAILYLAB CBC - COMP BLD CT W/AUTO DIFF [HEME] DAILYLAB MAGNESIUM [CHEM] DAILYLAB 01/15/23 05:00 BMP, RFLX TO IONIZED CA IF [CHEM] DAILYLAB CBC - COMP BLD CT W/AUTO DIFF [HEME] DAILYLAB MAGNESIUM [CHEM] DAILYLAB Subjective - Subjective Patient Reports: Other (No new complaints. Patient did ask me to contact her nephew Von Butt at [phone]. I did call this number there was no answer and there was no availability to leave a voice message.) Objective Vital Signs: Vital Signs - 24 hr 01/09/23 01/09/23 01/09/23 14:43 15:48 18:00 Temperature 36.5 C Heart Rate 79 79 Heart Rate [ 64 Brachial] Heart Rate [ Monitoring electrodes] Respiratory 16 20 19 Rate Blood Pressure 110/65 [Left Radial artery] O2 Saturation 97 If not protocol 2 2 2 : Oxygen Flow, liters/minute 01/09/23 01/09/23 01/09/23 18:04 20:40 23:41 Temperature 36.7 C 36.6 C Heart Rate Heart Rate [ Brachial] Heart Rate [ 58 L 65 Monitoring electrodes] Respiratory 20 20 Rate Blood Pressure 120/44 L 123/62 [Left Radial artery] O2 Saturation 92 97 If not protocol 2 2 2 : Oxygen Flow, liters/minute 01/10/23 01/10/23 01/10/23 05:33 06:15 08:00 Temperature 36.6 C 36.2 C L Heart Rate 98 Heart Rate [ Brachial] Heart Rate [ 75 53 L Monitoring electrodes] Respiratory 20 18 20 Rate Blood Pressure 113/47 L 137/48 H [Left Radial artery] O2 Saturation 98 95 If not protocol 2 2 2 : Oxygen Flow, liters/minute 01/10/23 01/10/23 11:22 12:37 Temperature 36.5 C Heart Rate 68 Heart Rate [ 57 L Brachial] Heart Rate [ Monitoring electrodes] Respiratory 18 20 Rate Blood Pressure 103/52 L [Left Radial artery] O2 Saturation 97 If not protocol 2 2 : Oxygen Flow, liters/minute Oxygen O2 Source [Without Activity] Nasal cannula O2 Source [With Activity] Nasal cannula O2 Source Nasal cannula Oxygen Flow Rate 3 I&O (Last 24 Hrs): Intake and Output Totals x24h 01/08/23 01/09/23 01/10/23 23:59 23:59 23:59 Intake Total 1680 1900 540 Output Total 2875 2400 1100 Balance -1195 -500 -560 General: Alert, Oriented x3 HEENT: Atraumatic Neuro: Alert Cardiovascular: Regular rate, Normal S1, Normal S2 Respiratory: Other (Decreased breath sounds at her bases) Extremities: Other (2+ lower extremity edema) - Results Results: Laboratory Results WBC 12.5 x10^3/uL (4.8-10.8) H 01/10/23 05:01 RBC 3.94 10^6/uL (4.20-5.40) L 01/10/23 05:01 Hgb 11.9 g/dL (12.0-16.0) L 01/10/23 05:01 Hct 39.3 % (37.0-47.0) 01/10/23 05:01 MCV 99.7 fL (81.0-99.0) H 01/10/23 05:01 MCH 30.2 pg (27.0-31.0) 01/10/23 05:01 MCHC 30.3 g/dL (32.0-36.0) L 01/10/23 05:01 RDW 13.6 % (12.0-15.0) 01/10/23 05:01 Plt Count 216 10^3/uL (130-450) 01/10/23 05:01 MPV 11.2 fL (7.9-10.8) H 01/10/23 05:01 Neut # (Auto) Not Reportable 01/10/23 05:01 Lymph # (Auto) Not Reportable 01/10/23 05:01 [place] # (Auto) Not Reportable 01/10/23 05:01 Eos # (Auto) Not Reportable 01/10/23 05:01 Baso # (Auto) Not Reportable 01/10/23 05:01 Absolute Nucleated RBC Not Reportable 01/10/23 05:01 Total Counted 100 01/10/23 05:01 Band Neuts % (Manual) 1 % (0-10) 01/10/23 05:01 Abnorm Lymph % (Manual) 0 % 01/10/23 05:01 Metamyelocytes % 1 % (-0) H 01/10/23 05:01 Myelocytes % 1 % (-0) H 01/10/23 05:01 Nucleated RBC % Not Reportable 01/10/23 05:01 Neutrophils # (Manual) 9.5 10^3/uL (1.5-6.6) H 01/10/23 05:01 Lymphocytes # (Manual) 1.4 10^3/uL (1.5-3.5) L 01/10/23 05:01 Monocytes # (Manual) 1.4 10^3/uL (0.0-1.0) H 01/10/23 05:01 Eosinophils # (Manual) 0.0 10^3/uL (0-0.7) 01/10/23 05:01 Basophils # (Manual) 0.0 10^3/uL (0-0.1) 01/10/23 05:01 Differential Comment MANUAL DIFFERENTIAL 01/10/23 05:01 WBC Morphology NORMAL APPEARANCE (NORMAL) 01/08/23 05:24 Platelet Estimate NORMAL (130-450,000) (NORMAL) 01/10/23 05:01 Platelet Morphology NORMAL APPEARANCE (NORMAL) 01/08/23 05:24 RBC Morph Micro Appear NORMAL APPEARANCE (NORMAL) 01/10/23 05:01 Sodium 143 mmol/L (135-145) 01/10/23 05:01 Potassium 3.0 mmol/L (3.5-5.0) L 01/10/23 05:01 Chloride 95 mmol/L (101-111) L 01/10/23 05:01 Carbon Dioxide 41 mmol/L (21-32) H* 01/10/23 05:01 Anion Gap 7.0 (6-13) 01/10/23 05:01 BUN 58 mg/dL (6-20) H 01/10/23 05:01 Creatinine 1.0 mg/dL (0.4-1.0) 01/10/23 05:01 Estimated GFR (MDRD) 53 (>89) L 01/10/23 05:01 Glucose 141 mg/dL (70-100) H 01/10/23 05:01 POC Whole Bld Glucose 164 mg/dL (70 - 100) H 01/10/23 11:43 Estimat Average Glucose 131 mg/dL (70-100) H 01/07/23 08:38 Hemoglobin A1c % 6.2 % (4.27-6.07) H 01/07/23 08:38 Calcium 9.5 mg/dL (8.5-10.3) 01/10/23 05:01 Ionized Calcium NO 01/10/23 05:01 Magnesium 2.2 mg/dL (1.7-2.8) 01/10/23 05:01 Total Bilirubin 0.6 mg/dL (0.2-1.0) 01/03/23 12:21 AST 17 IU/L (10-42) 01/03/23 12:21 ALT 19 IU/L (10-60) 01/03/23 12:21 Alkaline Phosphatase 101 IU/L (42-121) 01/03/23 12:21 Troponin I High Sens 23.4 ng/L (2.3-14.8) H* 01/03/23 18:45 B-Natriuretic Peptide 328 pg/mL (5-100) H 01/04/23 05:06 Total Protein 7.6 g/dL (6.7-8.2) 01/03/23 12:21 Albumin 3.6 g/dL (3.2-5.5) 01/03/23 12:21 Globulin 4.0 g/dL (2.1-4.2) 01/03/23 12:21 Albumin/Globulin Ratio 0.9 (1.0-2.2) L 01/03/23 12:21 Lipase 31 U/L (22-51) 01/03/23 12:21 Nasal Adenovirus (PCR) NOT DETECTED 01/03/23 12:25 Nasal B. parapertussis DNA (PCR) NOT DETECTED 01/03/23 12:25 Nasal Coronavir 229E PCR NOT DETECTED 01/03/23 12:25 Nasal Coronavir HKU1 PCR NOT DETECTED 01/03/23 12:25 Nasal Coronavir NL63 PCR NOT DETECTED 01/03/23 12:25 Nasal Coronavir OC43 PCR NOT DETECTED 01/03/23 12:25 Nasal Enterovir/Rhinovir PCR NOT DETECTED 01/03/23 12:25 Nasal Influenza B PCR NOT DETECTED 01/03/23 12:25 Nasal Influenza A PCR NOT DETECTED 01/03/23 12:25 Nasal Parainfluen 1 PCR NOT DETECTED 01/03/23 12:25 Nasal Parainfluen 2 PCR NOT DETECTED 01/03/23 12:25 Nasal Parainfluen 3 PCR NOT DETECTED 01/03/23 12:25 Nasal Parainfluen 4 PCR NOT DETECTED 01/03/23 12:25 Nasal RSV (PCR) NOT DETECTED 01/03/23 12:25 Nasal B.pertussis DNA PCR NOT DETECTED 01/03/23 12:25 Nasal C.pneumoniae (PCR) NOT DETECTED 01/03/23 12:25 Ankit Human Metapneumo PCR NOT DETECTED 01/03/23 12:25 Nasal M.pneumoniae (PCR) NOT DETECTED 01/03/23 12:25 Nasal SARS-CoV-2 (PCR) NOT DETECTED 01/03/23 12:25 - Procedures Procedures: Procedures CATARAC PHACOEMULS/ASPIR (04/27/14) INSERT LENS AT CATAR EXT (04/27/14) INSERTION OF INFUSION DEV INTO SUP VENA CAVA, PERC APPROACH (06/02/22) REPLACEMENT OF LEFT LENS WITH SYNTH SUB, PERC APPROACH (09/25/16) ABX Reporting Has patient been on IV antibiotics over the past 48 hours?: No
[2023-01-10] MEDS: POTASSIUM CHLORIDE 10 MEQ CAPSULE PO SCH (16:38)
[2023-01-10] MEDS: methocarbamoL 500 MG TABLET PO PRN (16:39)
[2023-01-10] MEDS: MONTELUKAST 10 MG TABLET PO SCH (21:50)
[2023-01-10] MEDS: ATORVASTATIN 10 MG TABLET PO SCH (21:50)
[2023-01-10] MEDS: AMITRIPTYLINE 25 MG TABLET PO SCH (21:50)
[2023-01-10] MEDS: SODIUM CHLORIDE FLUSH 0.9% 10 ML SYRINGE IVP PRN (21:51)
[2023-01-11] MEDS: IPRATROPIUM/ALBUTEROL 3 ML NEB INH SCH ×5 (00:23→21:15)
[2023-01-11] MEDS: BUDESONIDE 0.5 MG/2 ML NEB INH SCH ×3 (00:23→21:15)
[2023-01-11] MEDS: SODIUM CHLORIDE FLUSH 0.9% 10 ML SYRINGE IVP SCH ×4 (01:15→21:28)
[2023-01-11 05:23] LABS: BUN - BLOOD UREA NITROGEN 59 mg/dL (6-20); CALCIUM 9.1 mg/dL (8.5-10.3); CARBON DIOXIDE - CO2 38 mmol/L (21-32); CHLORIDE 98 mmol/L (101-111); CREATININE 0.9 mg/dL (0.4-1.0); GFR - MDRD 60 (>89); GLUCOSE 124 mg/dL (70-100); IONIZED CALCIUM IF INDICATED NO; MAGNESIUM 2.3 mg/dL (1.7-2.8); POTASSIUM 3.7 mmol/L (3.5-5.0); SODIUM 144 mmol/L (135-145)
[2023-01-11 05:41] LABS: BASOPHILS % (AUTO) 0.2 %; EOSINOPHILS # (AUTO) 0.4 10^3/uL (0.0-0.7); EOSINOPHILS % (AUTO) 3.4 %; HGB - HEMOGLOBIN 11.2 g/dL (12.0-16.0); LYMPHOCYTES # (AUTO) 1.8 10^3/uL (1.5-3.5); LYMPHOCYTES % (AUTO) 15.6 %; MEAN CORPUSCULAR HEMOGLOBIN 29.6 pg (27.0-31.0); MEAN CORPUSCULAR HGB CONC 29.5 g/dL (32.0-36.0); MEAN CORPUSCULAR VOLUME 100.5 fL (81.0-99.0); MEAN PLATELET VOLUME 10.6 fL (7.9-10.8); MONOCYTES # (AUTO) 1.1 10^3/uL (0.0-1.0); MONOCYTES % (AUTO) 9.1 %; NEUTROPHILS # (AUTO) 7.9 10^3/uL (1.5-6.6); NEUTROPHILS % (AUTO) 68.3 %; PLT - PLATELET COUNT 186 10^3/uL (130-450); RED BLOOD COUNT 3.78 10^6/uL (4.20-5.40); RED CELL DISTRIBUTION WIDTH 13.7 % (12.0-15.0); WHITE BLOOD COUNT 11.6 x10^3/uL (4.8-10.8)
[2023-01-11] MEDS: PREGABALIN 25 MG CAPSULE PO SCH ×3 (06:15→21:28)
[2023-01-11] MEDS: PANTOPRAZOLE 40 MG TABLET PO SCH (06:15)
[2023-01-11] MEDS: SODIUM CHLORIDE FLUSH 0.9% 10 ML SYRINGE IVP PRN (06:15)
[2023-01-11] MEDS: FUROSEMIDE 40 MG/4 ML VIAL IVP SCH ×2 (06:15→14:08)
[2023-01-11] MEDS: INSULIN LISPRO 300 UNIT/3 ML PEN SUBQ SCH ×4 (07:41→21:27)
[2023-01-11] MEDS: guaiFENesin 600 MG TABLET PO SCH ×2 (10:03→21:27)
[2023-01-11] MEDS: CALCIUM CITRATE 250 MG TABLET PO SCH (10:03)
[2023-01-11] MEDS: POTASSIUM CHLORIDE 10 MEQ CAPSULE PO SCH ×2 (10:03→17:17)
[2023-01-11] MEDS: MULTIVITAMIN W/MINERALS TABLET PO SCH (10:03)
[2023-01-11] MEDS: acetaZOLAMIDE 250 MG TABLET PO SCH (10:03)
[2023-01-11] MEDS: CHOLECALCIFEROL 400 UNIT TABLET PO SCH (10:03)
[2023-01-11] MEDS: ACETAMINOPHEN 325 MG TABLET PO PRN (10:03)
[2023-01-11] MEDS: AMOX/CLAV 875 MG/125 MG TABLET PO SCH (10:04)
[2023-01-11] MEDS: LOSARTAN 50 MG TABLET PO SCH (10:05)
[2023-01-11] MEDS: ENOXAPARIN 40 MG/0.4 ML SYRINGE SUBQ SCH ×2 (10:05→21:27)
[2023-01-11] MEDS: carvediloL 12.5 MG TABLET PO SCH ×2 (10:10→21:28)
[2023-01-11] MEDS: ASPIRIN EC 81 MG TABLET PO SCH (10:11)
[2023-01-11] MEDS: ZINC OXIDE 20% OINT 30 GM TUBE TOP PRN (10:22)
[2023-01-11] MEDS: MIN OIL/DIMETHICON/COCONUT OIL 92 GM TUBE TOP PRN (10:22)
--- NOTE | 2023-01-11 15:39 | PROVIDER PROGRESS NOTE ---
Assessment/Plan - Problem List (1) Acute and chronic respiratory failure with hypoxia Assessment/Plan: Assessment/Plan: This is multifactorial: from acute bronchitis, COPD exacerbation and CHF exacerbation. She normally uses 2 L O2 at home and she came in hypoxic while on her 2 L of O2. She needed 3 L O2 over night. Today at rest she is back down to 2 L O2. Plan: Cont supplemental O2 with target O2 saturations greater than 88% Cont her home BiPAP machine to be used while she is here Cont to treat each of the underlying problems. On the day of discharge she will need a repeat oximetry test, to see if she needs different home O2 ordered. (2) Bronchitis with acute wheezing Conclusion/Plan: She has not made a sputum sample to send for cx I started her on empiric po Augmentin. Plan: Await sputum sample to send for culture. Cont Solu-Medrol and I will start weaning down, from 80 mg TID to 40 mg TID today Cont DuoNeb treatments scheduled 4 times daily and prn q4 hours Cont scheduled Mucinex for pulmonary toilet I will add Montelukast qpm I will order chest PT TID with RT 01/08/2023- DCed Solumedrol January 11, 2023-discontinue oral antibiotics (3) CHF exacerbation Conclusion/Plan: Troponins were checked this admission, and she ruled out for an AR, as the cause of this CHF exacerbation She claims that her caregivers who prepare her meals "do not follow a low salt diet". She has anasarca with 4+ pitting edema all the way to her hips and her abdominal wall Since admission despite getting iv BID Lasix, she has only (-) fluid balance of 300 cc. I reviewed her I's and O's today, and she drinks 2300 cc of fluids a day. Plan: Cont IV twice daily Lasix and follow her I's and O's, daily weights, electrolytes and magnesium. With this amount of anasarca, there is probably more than 10 pounds of water weight to diurese off. I added a 2000 cc/day total fluid restriction Continue her usual cardiac medications I ordered an Echo w/ [facility], to rechecl LVEF and RVEF. (Echo ordered 2 days ago but we have no precision agriculture technician here until tomorrow). For the last several years her Echoes have shown LV diastolic heart failure, which she may still have but I suspect that she now may have Cor pulmonale, given this much anasarca, since in the past the RV was reported to be normal size with normal function. January 06, 2023-have increased Lasix to 40 mg IV twice daily and monitor I's and O's. She has not had adequate output with 20 mg IV twice daily. Echocardiogram showed 1. Overall left ventricular systolic function is lower limits of normal with an ejection fraction of 50 to 55%. 2. Right ventricular systolic function is mildly impaired. 3. No concerning cardiac valve disease noted. (4) Anasarca She stated that she thought "this is the usual amount of leg edema she always has on exam". But this is anasarca with 4+ pitting edema all the way to her hips and her abdominal wall. I suspect she has >10 lbs of fluid to diurese off. In the past her RV was reported to be normal size with normal function on Echo, but I suspect that she now has Cor pulmonale, given this much anasarca. Since admission despite being on iv BID Lasix, she has only (-) fluid balance of 300 cc. I reviewed her I's and O's, and she drinks 2300 cc of fluids a day. Also, she claims that "her caregivers who prepare her meals do not follow a low salt diet". Plan: Cont IV twice daily Lasix and follow her I's and O's, daily weights I added a 2000 cc/day total fluid restriction, it may even need to be stricter I will order [employer] consult for CHF [facility] January 07, 2023-difficult to follow I's and O's as patient is using pure wick along with having some urine to go into a diaper so we will place Adler for appropriate AVELINO management. Have increased Lasix to 60 mg IV twice daily. January 08, 2023-patient patient had Adler placed yesterday and she is getting good diuresis we will decrease Lasix to 40 mg IV twice daily and monitor January 09, 2023-continues with diuresis and had proximately 1 L diuresis yesterday. She does have increasing bicarb secondary to some intravascular volume depletion (contraction alkalosis )from her diuresis so will start her on Diamox daily. (5) Paroxysmal Afib On 01/04 her telemetry showed she went into Afib, first with a controlled HR, then Afib with RVR at 120-140 sustained. I had to give Lopressor 5 mg iv x1. She has had Parox Afib before, per records. I suspect we saw this A-fib with RVR because she missed 2 doses, therefore 24 hours, of her Carvedilol. Plan: I have resumed her usual Coreg twice daily dose, for heart rate control Her CHADS2 score is 1 or 2, so she needs to be at least on an asprin daily, for stroke prophylaxis. And she is on 1 baby aspirin daily, which is being continued. (6) Morbid obesity with BMI of 45.0-49.9, adult Conclusion/Plan: This complicates most of her care. She has become sedentary, only wheelchair- bound and bedbound and needs caregivers. (During a previous hospitalization it was documented that she would rather defecate into a diaper then go on to a commode). She has obesity hypoventilation syndrome Because of her obesity-hypoventilation syndrome she was to be on a CPAP machine and I ordered her home CPAP machine to be used here Plan: Will order OOB to chair with a sera lift Depending on if she wants to try to stand to pivot and get into a wheelchair, January 11, 2023-ordered OT PT consults and wound care consultFor gluteal pressure ulcer - Current Meds Current Meds: Current Medications Generic Name Dose Route Start Last Admin Trade Name Freq PRN Reason Stop Dose Admin Acetaminophen 650 mg 01/03/23 17:19 01/11/23 10:03 Acetaminophen 325 Mg Tablet PO 650 mg Q4HR PRN Administration Pain 1 to 4, or Fever Hydrocodone Bitart/Acetaminophen 1 tab 01/04/23 13:14 01/09/23 11:14 Hydrocod/Acetam 7.5 Mg/325 Mg Tablet PO 1 tab BID PRN Administration PAIN 5-7 Acetazolamide 250 mg 01/10/23 09:00 01/11/23 10:03 Acetazolamide 250 Mg Tablet PO 250 mg DAILY TAI Administration Albuterol/Ipratropium 3 ml 01/03/23 19:00 01/11/23 15:18 Ipratropium/Albuterol 3 Ml Neb INH 3 ml RTQID TAI Administration Amitriptyline HCl 50 mg 01/04/23 21:00 01/10/23 21:50 Amitriptyline 25 Mg Tablet PO 50 mg QPM TAI Administration Aspirin 81 mg 01/05/23 09:00 01/11/23 10:11 Aspirin Ec 81 Mg Tablet PO 81 mg DAILY TAI Administration Atorvastatin Calcium 20 mg 01/04/23 21:00 01/10/23 21:50 Atorvastatin 10 Mg Tablet PO 20 mg QPM TAI Administration Budesonide 0.5 mg 01/03/23 19:00 01/11/23 07:31 Budesonide 0.5 Mg/2 Ml Neb INH 0.5 mg RTBID TAI Administration Calcium Citrate 500 mg 01/05/23 09:00 01/11/23 10:03 Calcium Citrate 250 Mg Tablet PO 500 mg DAILY TAI Administration Carvedilol 12.5 mg 01/11/23 10:00 01/11/23 10:10 Carvedilol 12.5 Mg Tablet PO 12.5 mg BID TAI Administration Cholecalciferol 400 unit 01/05/23 09:00 01/11/23 10:03 Cholecalciferol 400 Unit Tablet PO 400 unit DAILY TAI Administration Enoxaparin Sodium 40 mg 01/05/23 21:00 01/11/23 10:05 Enoxaparin 40 Mg/0.4 Ml Syringe SUBQ 40 mg BID TAI Administration Furosemide 40 mg 01/08/23 14:00 01/11/23 14:08 Furosemide 40 Mg/4 Ml Vial IVP 40 mg BIDDIURETIC TAI Administration Guaifenesin 600 mg 01/03/23 21:00 01/11/23 10:03 Guaifenesin 600 Mg Tablet PO 600 mg BID TAI Administration Insulin Human Lispro 1 - 5 unit 01/06/23 12:00 01/11/23 12:09 Insulin Lispro 300 Unit/3 Ml Pen SUBQ Not Given 0800,1200,1700,2100 [facility] Protocol Losartan Potassium 25 mg 01/05/23 09:00 01/11/23 10:05 Losartan 50 Mg Tablet PO Not Given DAILY TAI Methocarbamol 750 mg 01/04/23 13:33 01/10/23 16:39 Methocarbamol 500 Mg Tablet PO 750 mg BID PRN Administration Spasms Metoprolol Tartrate 5 mg 01/04/23 21:37 01/06/23 18:15 Metoprolol 5 Mg/5 Ml Vial IVP 5 mg Q6H PRN Administration Hypertensive Emergency Mineral Oil 1 applic 01/03/23 21:22 01/11/23 10:22 Min Oil/Dimethicon/Coconut Oil 92 Gm Tube TOP 1 applic PRN PRN Administration Skin Care Montelukast Sodium 10 mg 01/05/23 21:00 01/10/23 21:50 Montelukast 10 Mg Tablet PO 10 mg QPM TAI Administration Multi-Ingredient Ointment 1 applic 01/04/23 13:14 01/11/23 10:22 Zinc Oxide 20% Oint 30 Gm Tube TOP 1 applic PRN PRN Administration Skin Care Multivitamins/Minerals 1 tab 01/05/23 08:00 01/11/23 10:03 Multivitamin W/Minerals Tablet PO 1 tab DAILYWM TAI Administration Pantoprazole Sodium 40 mg 01/05/23 07:00 01/11/23 06:15 Pantoprazole 40 Mg Tablet PO 40 mg QDAC TAI Administration Potassium Chloride 30 meq 01/10/23 17:00 01/11/23 10:03 Potassium Chloride 10 Meq Capsule PO 30 meq BIDWM TAI Administration Pregabalin 50 mg 01/04/23 14:00 01/11/23 14:08 Pregabalin 25 Mg Capsule PO 50 mg TID TAI Administration Sodium Chloride 10 ml 01/03/23 17:19 01/11/23 06:15 Sodium Chloride Flush 0.9% 10 Ml Syringe IVP 10 ml PRN PRN Administration NEEDED PER PROVIDER ORDERS Sodium Chloride 10 ml 01/04/23 01:00 01/11/23 10:05 Sodium Chloride Flush 0.9% 10 Ml Syringe IVP 10 ml 0100,0900,1700 TAI Administration - Lab Result Fish Bone Diagrams: 01/11/23 05:35 01/11/23 04:57 - Additional Planning My Orders: My Active Orders 01/10/23 17:00 Potassium Chloride [Micro-K] 30 meq PO BIDWM 01/11/23 Wound Consult MAC [MAC] Routine Evaluate and Treat OT [OT] Routine Evaluate and Treat PT [PT] Routine 01/11/23 10:00 carvediloL [Coreg] 12.5 mg PO BID 01/12/23 05:00 BMP, RFLX TO IONIZED CA IF [CHEM] DAILYLAB CBC - COMP BLD CT W/AUTO DIFF [HEME] DAILYLAB MAGNESIUM [CHEM] DAILYLAB 01/13/23 05:00 BMP, RFLX TO IONIZED CA IF [CHEM] DAILYLAB CBC - COMP BLD CT W/AUTO DIFF [HEME] DAILYLAB MAGNESIUM [CHEM] DAILYLAB 01/14/23 05:00 BMP, RFLX TO IONIZED CA IF [CHEM] DAILYLAB CBC - COMP BLD CT W/AUTO DIFF [HEME] DAILYLAB MAGNESIUM [CHEM] DAILYLAB 01/15/23 05:00 BMP, RFLX TO IONIZED CA IF [CHEM] DAILYLAB CBC - COMP BLD CT W/AUTO DIFF [HEME] DAILYLAB MAGNESIUM [CHEM] DAILYLAB Subjective - Subjective Patient Reports: Other (For gluteal pressure ulcer) Objective Vital Signs: Vital Signs - 24 hr 01/10/23 01/10/23 01/10/23 21:00 23:25 23:51 Temperature 36.7 C 36.5 C Heart Rate Heart Rate [ 60 Brachial] Heart Rate [ 46 L Monitoring electrodes] Respiratory 20 20 Rate Blood Pressure 111/55 L 102/46 L [Left Radial artery] O2 Saturation 97 95 If not protocol 2 2 2 : Oxygen Flow, liters/minute 01/11/23 01/11/23 01/11/23 05:28 07:31 07:32 Temperature 36.3 C L Heart Rate 80 Heart Rate [ Brachial] Heart Rate [ 46 L Monitoring electrodes] Respiratory 19 18 Rate Blood Pressure 114/48 L [Left Radial artery] O2 Saturation 95 If not protocol 2 2 2 : Oxygen Flow, liters/minute 01/11/23 01/11/23 01/11/23 09:00 11:33 12:33 Temperature 36.5 C 36.2 C L Heart Rate 88 Heart Rate [ Brachial] Heart Rate [ 48 L 77 Monitoring electrodes] Respiratory 16 18 18 Rate Blood Pressure 109/41 L 99/58 L [Left Radial artery] O2 Saturation 98 99 If not protocol 2 2 2 : Oxygen Flow, liters/minute 01/11/23 15:19 Temperature Heart Rate 84 Heart Rate [ Brachial] Heart Rate [ Monitoring electrodes] Respiratory 18 Rate Blood Pressure [Left Radial artery] O2 Saturation If not protocol : Oxygen Flow, liters/minute Oxygen O2 Source [Without Activity] Nasal cannula O2 Source [With Activity] Nasal cannula O2 Source Nasal cannula Oxygen Flow Rate 3 I&O (Last 24 Hrs): Intake and Output Totals x24h 01/09/23 01/10/2301/11/23 23:59 23:59 23:59 Intake Total 1900 1720 710 Output Total 2400 1650 1400 Balance -500 70 -690 General: Alert, Oriented x3 HEENT: Atraumatic Neuro: Alert, Non Focal Cardiovascular: Regular rate, Normal S1, Normal S2 Respiratory: Other (Decreased breath sounds at her bases) Abdomen: Soft, No tenderness Extremities: Other (2+ lower extremity edema) - Results Results: Laboratory Results WBC 11.6 x10^3/uL (4.8-10.8) H 01/11/23 05:35 RBC 3.78 10^6/uL (4.20-5.40) L 01/11/23 05:35 Hgb 11.2 g/dL (12.0-16.0) L 01/11/23 05:35 Hct 38.0 % (37.0-47.0) 01/11/23 05:35 MCV 100.5 fL (81.0-99.0) H 01/11/23 05:35 MCH 29.6 pg (27.0-31.0) 01/11/23 05:35 MCHC 29.5 g/dL (32.0-36.0) L 01/11/23 05:35 RDW 13.7 % (12.0-15.0) 01/11/23 05:35 Plt Count 186 10^3/uL (130-450) 01/11/23 05:35 MPV 10.6 fL (7.9-10.8) 01/11/23 05:35 Neut # (Auto) 7.9 10^3/uL (1.5-6.6) H 01/11/23 05:35 Lymph # (Auto) 1.8 10^3/uL (1.5-3.5) 01/11/23 05:35 [place] # (Auto) 1.1 10^3/uL (0.0-1.0) H 01/11/23 05:35 Eos # (Auto) 0.4 10^3/uL (0.0-0.7) 01/11/23 05:35 Baso # (Auto) 0.0 10^3/uL (0.0-0.1) 01/11/23 05:35 Absolute Nucleated RBC 0.00 x10^3/uL 01/11/23 05:35 Total Counted 100 01/10/23 05:01 Band Neuts % (Manual) 1 % (0-10) 01/10/23 05:01 Abnorm Lymph % (Manual) 0 % 01/10/23 05:01 Metamyelocytes % 1 % (-0) H 01/10/23 05:01 Myelocytes % 1 % (-0) H 01/10/23 05:01 Nucleated RBC % 0.0 /100WBC 01/11/23 05:35 Neutrophils # (Manual) 9.5 10^3/uL (1.5-6.6) H 01/10/23 05:01 Lymphocytes # (Manual) 1.4 10^3/uL (1.5-3.5) L 01/10/23 05:01 Monocytes # (Manual) 1.4 10^3/uL (0.0-1.0) H 01/10/23 05:01 Eosinophils # (Manual) 0.0 10^3/uL (0-0.7) 01/10/23 05:01 Basophils # (Manual) 0.0 10^3/uL (0-0.1) 01/10/23 05:01 Differential Comment MANUAL DIFFERENTIAL 01/10/23 05:01 WBC Morphology NORMAL APPEARANCE (NORMAL) 01/08/23 05:24 Platelet Estimate NORMAL (130-450,000) (NORMAL) 01/10/23 05:01 Platelet Morphology NORMAL APPEARANCE (NORMAL) 01/08/23 05:24 RBC Morph Micro Appear NORMAL APPEARANCE (NORMAL) 01/10/23 05:01 Sodium 144 mmol/L (135-145) 01/11/23 04:57 Potassium 3.7 mmol/L (3.5-5.0) 01/11/23 04:57 Chloride 98 mmol/L (101-111) L 01/11/23 04:57 Carbon Dioxide 38 mmol/L (21-32) H 01/11/23 04:57 Anion Gap 8.0 (6-13) 01/11/23 04:57 BUN 59 mg/dL (6-20) H 01/11/23 04:57 Creatinine 0.9 mg/dL (0.4-1.0) 01/11/23 04:57 Estimated GFR (MDRD) 60 (>89) L 01/11/23 04:57 Glucose 124 mg/dL (70-100) H 01/11/23 04:57 POC Whole Bld Glucose 138 mg/dL (70 - 100) H 01/11/23 11:59 Estimat Average Glucose 131 mg/dL (70-100) H 01/07/23 08:38 Hemoglobin A1c % 6.2 % (4.27-6.07) H 01/07/23 08:38 Calcium 9.1 mg/dL (8.5-10.3) 01/11/23 04:57 Ionized Calcium NO 01/11/23 04:57 Magnesium 2.3 mg/dL (1.7-2.8) 01/11/23 04:57 Total Bilirubin 0.6 mg/dL (0.2-1.0) 01/03/23 12:21 AST 17 IU/L (10-42) 01/03/23 12:21 ALT 19 IU/L (10-60) 01/03/23 12:21 Alkaline Phosphatase 101 IU/L (42-121) 01/03/23 12:21 Troponin I High Sens 23.4 ng/L (2.3-14.8) H* 01/03/23 18:45 B-Natriuretic Peptide 328 pg/mL (5-100) H 01/04/23 05:06 Total Protein 7.6 g/dL (6.7-8.2) 01/03/23 12:21 Albumin 3.6 g/dL (3.2-5.5) 01/03/23 12:21 Globulin 4.0 g/dL (2.1-4.2) 01/03/23 12:21 Albumin/Globulin Ratio 0.9 (1.0-2.2) L 01/03/23 12:21 Lipase 31 U/L (22-51) 01/03/23 12:21 Nasal Adenovirus (PCR) NOT DETECTED 01/03/23 12:25 Nasal B. parapertussis DNA (PCR) NOT DETECTED 01/03/23 12:25 Nasal Coronavir 229E PCR NOT DETECTED 01/03/23 12:25 Nasal Coronavir HKU1 PCR NOT DETECTED 01/03/23 12:25 Nasal Coronavir NL63 PCR NOT DETECTED 01/03/23 12:25 Nasal Coronavir OC43 PCR NOT DETECTED 01/03/23 12:25 Nasal Enterovir/Rhinovir PCR NOT DETECTED 01/03/23 12:25 Nasal Influenza B PCR NOT DETECTED 01/03/23 12:25 Nasal Influenza A PCR NOT DETECTED 01/03/23 12:25 Nasal Parainfluen 1 PCR NOT DETECTED 01/03/23 12:25 Nasal Parainfluen 2 PCR NOT DETECTED 01/03/23 12:25 Nasal Parainfluen 3 PCR NOT DETECTED 01/03/23 12:25 Nasal Parainfluen 4 PCR NOT DETECTED 01/03/23 12:25 Nasal RSV (PCR) NOT DETECTED 01/03/23 12:25 Nasal B.pertussis DNA PCR NOT DETECTED 01/03/23 12:25 Nasal C.pneumoniae (PCR) NOT DETECTED 01/03/23 12:25 Ankit Human Metapneumo PCR NOT DETECTED 01/03/23 12:25 Nasal M.pneumoniae (PCR) NOT DETECTED 01/03/23 12:25 Nasal SARS-CoV-2 (PCR) NOT DETECTED 01/03/23 12:25 - Procedures Procedures: Procedures CATARAC PHACOEMULS/ASPIR (04/27/14) INSERT LENS AT CATAR EXT (04/27/14) INSERTION OF INFUSION DEV INTO SUP VENA CAVA, PERC APPROACH (06/02/22) REPLACEMENT OF LEFT LENS WITH SYNTH SUB, PERC APPROACH (09/25/16) ABX Reporting Has patient been on IV antibiotics over the past 48 hours?: No
[2023-01-11] MEDS ORDERED: carvediloL 12.5 MG TABLET PO SCH (21:00)
[2023-01-11] MEDS: MONTELUKAST 10 MG TABLET PO SCH (21:27)
[2023-01-11] MEDS: AMITRIPTYLINE 25 MG TABLET PO SCH (21:28)
[2023-01-11] MEDS: ATORVASTATIN 10 MG TABLET PO SCH (21:28)
[2023-01-12 05:58] LABS: BASOPHILS % (AUTO) 0.2 %; EOSINOPHILS # (AUTO) 0.4 10^3/uL (0.0-0.7); EOSINOPHILS % (AUTO) 3.1 %; HCT - HEMATOCRIT 38.5 % (37.0-47.0); HGB - HEMOGLOBIN 11.2 g/dL (12.0-16.0); LYMPHOCYTES # (AUTO) 1.6 10^3/uL (1.5-3.5); LYMPHOCYTES % (AUTO) 12.9 %; MEAN CORPUSCULAR HEMOGLOBIN 29.1 pg (27.0-31.0); MEAN CORPUSCULAR HGB CONC 29.1 g/dL (32.0-36.0); MONOCYTES # (AUTO) 0.8 10^3/uL (0.0-1.0); MONOCYTES % (AUTO) 6.7 %; NEUTROPHILS # (AUTO) 8.9 10^3/uL (1.5-6.6); NEUTROPHILS % (AUTO) 73.9 %; PLT - PLATELET COUNT 186 10^3/uL (130-450); RED BLOOD COUNT 3.85 10^6/uL (4.20-5.40); RED CELL DISTRIBUTION WIDTH 13.7 % (12.0-15.0); WHITE BLOOD COUNT 12.1 x10^3/uL (4.8-10.8)
[2023-01-12] MEDS: PANTOPRAZOLE 40 MG TABLET PO SCH (06:09)
[2023-01-12] MEDS: FUROSEMIDE 40 MG/4 ML VIAL IVP SCH ×2 (06:09→13:50)
[2023-01-12] MEDS: PREGABALIN 25 MG CAPSULE PO SCH ×3 (06:09→21:31)
[2023-01-12 06:12] LABS: BUN - BLOOD UREA NITROGEN 45 mg/dL (6-20); CALCIUM 9.2 mg/dL (8.5-10.3); CHLORIDE 98 mmol/L (101-111); CREATININE 0.8 mg/dL (0.4-1.0); GFR - MDRD 69 (>89); GLUCOSE 124 mg/dL (70-100); IONIZED CALCIUM IF INDICATED NO; MAGNESIUM 2.4 mg/dL (1.7-2.8); POTASSIUM 3.7 mmol/L (3.5-5.0); SODIUM 144 mmol/L (135-145)
[2023-01-12 06:15] LABS: CARBON DIOXIDE - CO2 41 mmol/L (21-32)
[2023-01-12] MEDS: BUDESONIDE 0.5 MG/2 ML NEB INH SCH ×2 (07:18→18:19)
[2023-01-12] MEDS: IPRATROPIUM/ALBUTEROL 3 ML NEB INH SCH ×4 (07:22→18:19)
[2023-01-12] MEDS: CALCIUM CITRATE 250 MG TABLET PO SCH (08:45)
[2023-01-12] MEDS: POTASSIUM CHLORIDE 10 MEQ CAPSULE PO SCH ×2 (08:45→17:05)
[2023-01-12] MEDS: MULTIVITAMIN W/MINERALS TABLET PO SCH (08:45)
[2023-01-12] MEDS: CHOLECALCIFEROL 400 UNIT TABLET PO SCH (08:45)
[2023-01-12] MEDS: ASPIRIN EC 81 MG TABLET PO SCH (08:45)
[2023-01-12] MEDS: ENOXAPARIN 40 MG/0.4 ML SYRINGE SUBQ SCH ×2 (08:45→21:31)
[2023-01-12] MEDS: guaiFENesin 600 MG TABLET PO SCH ×2 (08:46→21:31)
[2023-01-12] MEDS: INSULIN LISPRO 300 UNIT/3 ML PEN SUBQ SCH ×4 (08:46→21:32)
[2023-01-12] MEDS: carvediloL 12.5 MG TABLET PO SCH ×2 (08:47→21:22)
[2023-01-12] MEDS: LOSARTAN 50 MG TABLET PO SCH (08:47)
[2023-01-12] MEDS: SODIUM CHLORIDE FLUSH 0.9% 10 ML SYRINGE IVP SCH ×2 (08:48→17:05)
[2023-01-12] MEDS: acetaZOLAMIDE 250 MG TABLET PO SCH (08:50)
--- NOTE | 2023-01-12 14:37 | PROVIDER PROGRESS NOTE ---
Assessment/Plan - Problem List (1) Acute and chronic respiratory failure with hypoxia Assessment/Plan: This is multifactorial: from acute bronchitis, COPD exacerbation and CHF exacerbation. She normally uses 2 L O2 at home and she came in hypoxic while on her 2 L of O2. She needed 3 L O2 over night. Today at rest she is back down to 2 L O2. Plan: Cont supplemental O2 with target O2 saturations greater than 88% Cont her home BiPAP machine to be used while she is here Cont to treat each of the underlying problems. On the day of discharge she will need a repeat oximetry test, to see if she needs different home O2 ordered. (2) Bronchitis with acute wheezing Conclusion/Plan: She has not made a sputum sample to send for cx I started her on empiric po Augmentin. Plan: Await sputum sample to send for culture. Cont Solu-Medrol and I will start weaning down, from 80 mg TID to 40 mg TID today Cont DuoNeb treatments scheduled 4 times daily and prn q4 hours Cont scheduled Mucinex for pulmonary toilet I will add Montelukast qpm I will order chest PT TID with RT 01/08/2023- DCed Solumedrol January 11, 2023-discontinue oral antibiotics (3) CHF exacerbation Conclusion/Plan: Troponins were checked this admission, and she ruled out for an MO, as the cause of this CHF exacerbation She claims that her caregivers who prepare her meals "do not follow a low salt diet". She has anasarca with 4+ pitting edema all the way to her hips and her abdominal wall Since admission despite getting iv BID Lasix, she has only (-) fluid balance of 300 cc. I reviewed her I's and O's today, and she drinks 2300 cc of fluids a day. Plan: Cont IV twice daily Lasix and follow her I's and O's, daily weights, electrolytes and magnesium. With this amount of anasarca, there is probably more than 10 pounds of water weight to diurese off. I added a 2000 cc/day total fluid restriction Continue her usual cardiac medications I ordered an Echo w/ [facility], to rechecl LVEF and RVEF. (Echo ordered 2 days ago but we have no monitor technician here until tomorrow). For the last several years her Echoes have shown LV diastolic heart failure, which she may still have but I suspect that she now may have Cor pulmonale, given this much anasarca, since in the past the RV was reported to be normal size with normal function. January 06, 2023-have increased Lasix to 40 mg IV twice daily and monitor I's and O's. She has not had adequate output with 20 mg IV twice daily. Echocardiogram showed 1. Overall left ventricular systolic function is lower limits of normal with an ejection fraction of 50 to 55%. 2. Right ventricular systolic function is mildly impaired. 3. No concerning cardiac valve disease noted. (4) Anasarca She stated that she thought "this is the usual amount of leg edema she always dickson s on exam". But this is anasarca with 4+ pitting edema all the way to her hips and her abdominal wall. I suspect she has >10 lbs of fluid to diurese off. In the past her RV was reported to be normal size with normal function on Echo, but I suspect that she now has Cor pulmonale, given this much anasarca. Since admission despite being on iv BID Lasix, she has only (-) fluid balance of 300 cc. I reviewed her I's and O's, and she drinks 2300 cc of fluids a day. Also, she claims that "her caregivers who prepare her meals do not follow a low salt diet". Plan: Cont IV twice daily Lasix and follow her I's and O's, daily weights I added a 2000 cc/day total fluid restriction, it may even need to be stricter I will order Pastor consult for CHF [facility] January 07, 2023-difficult to follow I's and O's as patient is using pure wick along with having some urine to go into a diaper so we will place Adler for appropriate AVELINO management. Have increased Lasix to 60 mg IV twice daily. January 08, 2023-patient patient had Adler placed yesterday and she is getting good diuresis we will decrease Lasix to 40 mg IV twice daily and monitor January 09, 2023-continues with diuresis and had proximately 1 L diuresis yesterday. She does have increasing bicarb secondary to some intravascular volume depletion (contraction alkalosis )from her diuresis so will start her on Diamox daily. (5) Paroxysmal Afib On 01/04 her telemetry showed she went into Afib, first with a controlled HR, then Afib with RVR at 120-140 sustained. I had to give Lopressor 5 mg iv x1. She has had Parox Afib before, per records. I suspect we saw this A-fib with RVR because she missed 2 doses, therefore 24 hours, of her Carvedilol. Plan: I have resumed her usual Coreg twice daily dose, for heart rate control Her CHADS2 score is 1 or 2, so she needs to be at least on an asprin daily, for stroke prophylaxis. And she is on 1 baby aspirin daily, which is being continued. January 12, 2023-have been titrating down her Coreg due to bradycardia (6) Morbid obesity with BMI of 45.0-49.9, adult Conclusion/Plan: This complicates most of her care. She has become sedentary, only wheelchair- bound and bedbound and needs caregivers. (During a previous hospitalization it was documented that she would rather defecate into a diaper then go on to a commode). She has obesity hypoventilation syndrome Because of her obesity-hypoventilation syndrome she was to be on a CPAP machine and I ordered her home CPAP machine to be used here Plan: Will order OOB to chair with a sera lift Depending on if she wants to try to stand to pivot and get into a wheelchair, January 11, 2023-ordered OT PT consults and wound care consultFor gluteal pressure ulcer - Current Meds Current Meds: Current Medications Generic Name Dose Route Start Last Admin Trade Name Freq PRN Reason Stop Dose Admin Acetaminophen 650 mg 01/03/23 17:19 01/11/23 10:03 Acetaminophen 325 Mg Tablet PO 650 mg Q4HR PRN Administration Pain 1 to 4, or Fever Hydrocodone Bitart/Acetaminophen 1 tab 01/04/23 13:14 01/09/23 11:14 Hydrocod/Acetam 7.5 Mg/325 Mg Tablet PO 1 tab BID PRN Administration PAIN 5-7 Acetazolamide 250 mg 01/10/23 09:00 01/12/23 08:50 Acetazolamide 250 Mg Tablet PO 250 mg DAILY TAI Administration Albuterol/Ipratropium 3 ml 01/03/23 19:00 01/12/23 11:28 Ipratropium/Albuterol 3 Ml Neb INH 3 ml RTQID TAI Administration Amitriptyline HCl 50 mg 01/04/23 21:00 01/11/23 21:28 Amitriptyline 25 Mg Tablet PO 50 mg QPM TAI Administration Aspirin 81 mg 01/05/23 09:00 01/12/23 08:45 Aspirin Ec 81 Mg Tablet PO 81 mg DAILY TAI Administration Atorvastatin Calcium 20 mg 01/04/23 21:00 01/11/23 21:28 Atorvastatin 10 Mg Tablet PO 20 mg QPM TAI Administration Budesonide 0.5 mg 01/03/23 19:00 01/12/23 07:18 Budesonide 0.5 Mg/2 Ml Neb INH 0.5 mg RTBID TAI Administration Calcium Citrate 500 mg 01/05/23 09:00 01/12/23 08:45 Calcium Citrate 250 Mg Tablet PO 500 mg DAILY TAI Administration Carvedilol 12.5 mg 01/12/23 07:11 01/12/23 08:47 Carvedilol 12.5 Mg Tablet PO Not Given BID TAI Cholecalciferol 400 unit 01/05/23 09:00 01/12/23 08:45 Cholecalciferol 400 Unit Tablet PO 400 unit DAILY TAI Administration Enoxaparin Sodium 40 mg 01/05/23 21:00 01/12/23 08:45 Enoxaparin 40 Mg/0.4 Ml Syringe SUBQ 40 mg BID TAI Administration Furosemide 40 mg 01/08/23 14:00 01/12/23 13:50 Furosemide 40 Mg/4 Ml Vial IVP 40 mg BIDDIURETIC TAI Administration Guaifenesin 600 mg 01/03/23 21:00 01/12/23 08:46 Guaifenesin 600 Mg Tablet PO 600 mg BID TAI Administration Insulin Human Lispro 1 - 5 unit 01/06/23 12:00 01/12/23 12:49 Insulin Lispro 300 Unit/3 Ml Pen SUBQ 2 unit 0800,1200,1700,2100 TAI Administration Protocol Losartan Potassium 25 mg 01/05/23 09:00 01/12/23 08:47 Losartan 50 Mg Tablet PO Not Given DAILY TAI Methocarbamol 750 mg 01/04/23 13:33 01/10/23 16:39 Methocarbamol 500 Mg Tablet PO 750 mg BID PRN Administration Spasms Metoprolol Tartrate 5 mg 01/04/23 21:37 01/06/23 18:15 Metoprolol 5 Mg/5 Ml Vial IVP 5 mg Q6H PRN Administration Hypertensive Emergency Mineral Oil 1 applic 01/03/23 21:22 01/11/23 10:22 Min Oil/Dimethicon/Coconut Oil 92 Gm Tube TOP 1 applic PRN PRN Administration Skin Care Montelukast Sodium 10 mg 01/05/23 21:00 01/11/23 21:27 Montelukast 10 Mg Tablet PO 10 mg QPM TAI Administration Multi-Ingredient Ointment 1 applic 01/04/23 13:14 01/11/23 10:22 Zinc Oxide 20% Oint 30 Gm Tube TOP 1 applic PRN PRN Administration Skin Care Multivitamins/Minerals 1 tab 01/05/23 08:00 01/12/23 08:45 Multivitamin W/Minerals Tablet PO 1 tab DAILYWM TAI Administration Pantoprazole Sodium 40 mg 01/05/23 07:00 01/12/23 06:09 Pantoprazole 40 Mg Tablet PO 40 mg QDAC TAI Administration Potassium Chloride 30 meq 01/10/23 17:00 01/12/23 08:45 Potassium Chloride 10 Meq Capsule PO 30 meq BIDWM TAI Administration Pregabalin 50 mg 01/04/23 14:00 01/12/23 13:32 Pregabalin 25 Mg Capsule PO 50 mg TID TAI Administration Sodium Chloride 10 ml 01/03/23 17:19 01/11/23 06:15 Sodium Chloride Flush 0.9% 10 Ml Syringe IVP 10 ml PRN PRN Administration NEEDED PER PROVIDER ORDERS Sodium Chloride 10 ml 01/04/23 01:00 01/12/23 08:48 Sodium Chloride Flush 0.9% 10 Ml Syringe IVP 10 ml 0100,0900,1700 TAI Administration - Lab Result Fish Bone Diagrams: 01/12/23 05:34 01/12/23 05:34 - Additional Planning My Orders: My Active Orders 01/12/23 07:11 carvediloL [Coreg] 12.5 mg PO BID 01/13/23 05:00 BMP, RFLX TO IONIZED CA IF [CHEM] DAILYLAB CBC - COMP BLD CT W/AUTO DIFF [HEME] DAILYLAB MAGNESIUM [CHEM] DAILYLAB 01/14/23 05:00 BMP, RFLX TO IONIZED CA IF [CHEM] DAILYLAB CBC - COMP BLD CT W/AUTO DIFF [HEME] DAILYLAB MAGNESIUM [CHEM] DAILYLAB 01/15/23 05:00 BMP, RFLX TO IONIZED CA IF [CHEM] DAILYLAB CBC - COMP BLD CT W/AUTO DIFF [HEME] DAILYLAB MAGNESIUM [CHEM] DAILYLAB Subjective - Subjective Patient Reports: Resting Comfortably Objective Vital Signs: Vital Signs - 24 hr 01/11/23 01/11/23 01/11/23 15:19 17:00 20:04 Temperature 36.4 C L 36.4 C L Heart Rate 84 Heart Rate [ 52 L 52 L Monitoring electrodes] Heart Rate [ Sitting] Respiratory 18 20 20 Rate Blood Pressure 125/58 L 114/51 L [Left Radial artery] Blood Pressure [Sitting] O2 Saturation 99 100 If not protocol 2 2 : Oxygen Flow, liters/minute 01/11/23 01/11/23 01/11/23 21:15 22:30 23:40 Temperature 36.8 C Heart Rate Heart Rate [ 54 L Monitoring electrodes] Heart Rate [ Sitting] Respiratory 20 18 Rate Blood Pressure 112/81 H [Left Radial artery] Blood Pressure [Sitting] O2 Saturation 100 If not protocol 2 2 2 : Oxygen Flow, liters/minute 01/12/23 01/12/23 01/12/23 05:36 07:22 08:23 Temperature 36.6 C 36.3 C L Heart Rate 65 Heart Rate [ 51 L 50 L Monitoring electrodes] Heart Rate [ Sitting] Respiratory 18 22 18 Rate Blood Pressure 127/51 L 109/64 [Left Radial artery] Blood Pressure [Sitting] O2 Saturation 95 96 If not protocol 2 2 2 : Oxygen Flow, liters/minute 01/12/23 01/12/23 10:45 12:04 Temperature 36.4 C L Heart Rate Heart Rate [ 48 L Monitoring electrodes] Heart Rate [ 51 L Sitting] Respiratory 18 Rate Blood Pressure 124/63 [Left Radial artery] Blood Pressure 138/113 H [Sitting] O2 Saturation 97 If not protocol 2 : Oxygen Flow, liters/minute Oxygen O2 Source [Without Activity] Nasal cannula O2 Source [With Activity] Nasal cannula O2 Source Nasal cannula Oxygen Flow Rate 3 I&O (Last 24 Hrs): Intake and Output Totals x24h 01/10/23 01/11/23 01/12/23 23:59 23:59 23:59 Intake Total 1720 1210 420 Output Total 1650 3550 1450 Balance 70 -2340 -1030 General: Alert, Oriented x3, Cooperative HEENT: Atraumatic Neck: Supple Lymphatic: no adenopathy Neuro: Alert, Non Focal Cardiovascular: Regular rate, Normal S1, Normal S2 Respiratory: Other (Decreased breath sounds at her bases) Abdomen: Normal bowel sounds, Soft Extremities: Other (2+ lower extremity edema improving) - Results Results: Laboratory Results WBC 12.1 x10^3/uL (4.8-10.8) H 01/12/23 05:34 RBC 3.85 10^6/uL (4.20-5.40) L 01/12/23 05:34 Hgb 11.2 g/dL (12.0-16.0) L 01/12/23 05:34 Hct 38.5 % (37.0-47.0) 01/12/23 05:34 MCV 100.0 fL (81.0-99.0) H 01/12/23 05:34 MCH 29.1 pg (27.0-31.0) 01/12/23 05:34 MCHC 29.1 g/dL (32.0-36.0) L 01/12/23 05:34 RDW 13.7 % (12.0-15.0) 01/12/23 05:34 Plt Count 186 10^3/uL (130-450) 01/12/23 05:34 MPV 11.0 fL (7.9-10.8) H 01/12/23 05:34 Neut # (Auto) 8.9 10^3/uL (1.5-6.6) H 01/12/23 05:34 Lymph # (Auto) 1.6 10^3/uL (1.5-3.5) 01/12/23 05:34 Fajardo # (Auto) 0.8 10^3/uL (0.0-1.0) 01/12/23 05:34 Eos # (Auto) 0.4 10^3/uL (0.0-0.7) 01/12/23 05:34 Baso # (Auto) 0.0 10^3/uL (0.0-0.1) 01/12/23 05:34 Absolute Nucleated RBC 0.00 x10^3/uL 01/12/23 05:34 Total Counted 100 01/10/23 05:01 Band Neuts % (Manual) 1 % (0-10) 01/10/23 05:01 Abnorm Lymph % (Manual) 0 % 01/10/23 05:01 Metamyelocytes % 1 % (-0) H 01/10/23 05:01 Myelocytes % 1 % (-0) H 01/10/23 05:01 Nucleated RBC % 0.0 /100WBC 01/12/23 05:34 Neutrophils # (Manual) 9.5 10^3/uL (1.5-6.6) H 01/10/23 05:01 Lymphocytes # (Manual) 1.4 10^3/uL (1.5-3.5) L 01/10/23 05:01 Monocytes # (Manual) 1.4 10^3/uL (0.0-1.0) H 01/10/23 05:01 Eosinophils # (Manual) 0.0 10^3/uL (0-0.7) 01/10/23 05:01 Basophils # (Manual) 0.0 10^3/uL (0-0.1) 01/10/23 05:01 Differential Comment MANUAL DIFFERENTIAL 01/10/23 05:01 WBC Morphology NORMAL APPEARANCE (NORMAL) 01/08/23 05:24 Platelet Estimate NORMAL (130-450,000) (NORMAL) 01/10/23 05:01 Platelet Morphology NORMAL APPEARANCE (NORMAL) 01/08/23 05:24 RBC Morph Micro Appear NORMAL APPEARANCE (NORMAL) 01/10/23 05:01 Sodium 144 mmol/L (135-145) 01/12/23 05:34 Potassium 3.7 mmol/L (3.5-5.0) 01/12/23 05:34 Chloride 98 mmol/L (101-111) L 01/12/23 05:34 Carbon Dioxide 41 mmol/L (21-32) H* 01/12/23 05:34 Anion Gap 5.0 (6-13) L 01/12/23 05:34 BUN 45 mg/dL (6-20) H 01/12/23 05:34 Creatinine 0.8 mg/dL (0.4-1.0) 01/12/23 05:34 Estimated GFR (MDRD) 69 (>89) L 01/12/23 05:34 Glucose 124 mg/dL (70-100) H 01/12/23 05:34 POC Whole Bld Glucose 188 mg/dL (70 - 100) H 01/12/23 11:24 Estimat Average Glucose 131 mg/dL (70-100) H 01/07/23 08:38 Hemoglobin A1c % 6.2 % (4.27-6.07) H 01/07/23 08:38 Calcium 9.2 mg/dL (8.5-10.3) 01/12/23 05:34 Ionized Calcium NO 01/12/23 05:34 Magnesium 2.4 mg/dL (1.7-2.8) 01/12/23 05:34 Total Bilirubin 0.6 mg/dL (0.2-1.0) 01/03/23 12:21 AST 17 IU/L (10-42) 01/03/23 12:21 ALT 19 IU/L (10-60) 01/03/23 12:21 Alkaline Phosphatase 101 IU/L (42-121) 01/03/23 12:21 Troponin I High Sens 23.4 ng/L (2.3-14.8) H* 01/03/23 18:45 B-Natriuretic Peptide 328 pg/mL (5-100) H 01/04/23 05:06 Total Protein 7.6 g/dL (6.7-8.2) 01/03/23 12:21 Albumin 3.6 g/dL (3.2-5.5) 01/03/23 12:21 Globulin 4.0 g/dL (2.1-4.2) 01/03/23 12:21 Albumin/Globulin Ratio 0.9 (1.0-2.2) L 01/03/23 12:21 Lipase 31 U/L (22-51) 01/03/23 12:21 Nasal Adenovirus (PCR) NOT DETECTED 01/03/23 12:25 Nasal B. parapertussis DNA (PCR) NOT DETECTED 01/03/23 12:25 Nasal Coronavir 229E PCR NOT DETECTED 01/03/23 12:25 Nasal Coronavir HKU1 PCR NOT DETECTED 01/03/23 12:25 Nasal Coronavir NL63 PCR NOT DETECTED 01/03/23 12:25 Nasal Coronavir OC43 PCR NOT DETECTED 01/03/23 12:25 Nasal Enterovir/Rhinovir PCR NOT DETECTED 01/03/23 12:25 Nasal Influenza B PCR NOT DETECTED 01/03/23 12:25 Nasal Influenza A PCR NOT DETECTED 01/03/23 12:25 Nasal Parainfluen 1 PCR NOT DETECTED 01/03/23 12:25 Nasal Parainfluen 2 PCR NOT DETECTED 01/03/23 12:25 Nasal Parainfluen 3 PCR NOT DETECTED 01/03/23 12:25 Nasal Parainfluen 4 PCR NOT DETECTED 01/03/23 12:25 Nasal RSV (PCR) NOT DETECTED 01/03/23 12:25 Nasal B.pertussis DNA PCR NOT DETECTED 01/03/23 12:25 Nasal C.pneumoniae (PCR) NOT DETECTED 01/03/23 12:25 Ankit Human Metapneumo PCR NOT DETECTED 01/03/23 12:25 Nasal M.pneumoniae (PCR) NOT DETECTED 01/03/23 12:25 Nasal SARS-CoV-2 (PCR) NOT DETECTED 01/03/23 12:25 - Procedures Procedures: Procedures CATARAC PHACOEMULS/ASPIR (04/27/14) INSERT LENS AT CATAR EXT (04/27/14) INSERTION OF INFUSION DEV INTO SUP VENA CAVA, PERC APPROACH (06/02/22) REPLACEMENT OF LEFT LENS WITH SYNTH SUB, PERC APPROACH (09/25/16) ABX Reporting Has patient been on IV antibiotics over the past 48 hours?: No
[2023-01-12] MEDS: MONTELUKAST 10 MG TABLET PO SCH (21:31)
[2023-01-12] MEDS: ATORVASTATIN 10 MG TABLET PO SCH (21:31)
[2023-01-12] MEDS: AMITRIPTYLINE 25 MG TABLET PO SCH (21:31)
[2023-01-13] MEDS: SODIUM CHLORIDE FLUSH 0.9% 10 ML SYRINGE IVP SCH ×2 (03:11→08:31)
[2023-01-13] MEDS: PANTOPRAZOLE 40 MG TABLET PO SCH (05:46)
[2023-01-13] MEDS: PREGABALIN 25 MG CAPSULE PO SCH ×3 (05:46→21:51)
[2023-01-13] MEDS: FUROSEMIDE 40 MG/4 ML VIAL IVP SCH (05:46)
[2023-01-13 05:54] LABS: BASOPHILS % (AUTO) 0.2 %; EOSINOPHILS # (AUTO) 0.3 10^3/uL (0.0-0.7); EOSINOPHILS % (AUTO) 2.7 %; HGB - HEMOGLOBIN 11.2 g/dL (12.0-16.0); LYMPHOCYTES # (AUTO) 1.7 10^3/uL (1.5-3.5); LYMPHOCYTES % (AUTO) 16.4 %; MEAN CORPUSCULAR HGB CONC 30.3 g/dL (32.0-36.0); MEAN CORPUSCULAR VOLUME 99.2 fL (81.0-99.0); MEAN PLATELET VOLUME 10.8 fL (7.9-10.8); MONOCYTES # (AUTO) 0.8 10^3/uL (0.0-1.0); MONOCYTES % (AUTO) 7.2 %; NEUTROPHILS # (AUTO) 7.5 10^3/uL (1.5-6.6); PLT - PLATELET COUNT 162 10^3/uL (130-450); RED BLOOD COUNT 3.73 10^6/uL (4.20-5.40); RED CELL DISTRIBUTION WIDTH 13.6 % (12.0-15.0); WHITE BLOOD COUNT 10.6 x10^3/uL (4.8-10.8)
[2023-01-13 06:06] LABS: BUN - BLOOD UREA NITROGEN 38 mg/dL (6-20); CALCIUM 9.2 mg/dL (8.5-10.3); CHLORIDE 96 mmol/L (101-111); CREATININE 0.8 mg/dL (0.4-1.0); GFR - MDRD 69 (>89); GLUCOSE 141 mg/dL (70-100); IONIZED CALCIUM IF INDICATED NO; MAGNESIUM 2.3 mg/dL (1.7-2.8); POTASSIUM 3.5 mmol/L (3.5-5.0); SODIUM 142 mmol/L (135-145)
[2023-01-13 06:07] LABS: CARBON DIOXIDE - CO2 39 mmol/L (21-32)
[2023-01-13] MEDS: IPRATROPIUM/ALBUTEROL 3 ML NEB INH SCH ×4 (07:07→18:10)
[2023-01-13] MEDS: BUDESONIDE 0.5 MG/2 ML NEB INH SCH ×2 (07:07→18:09)
[2023-01-13] MEDS: MULTIVITAMIN W/MINERALS TABLET PO SCH (08:31)
[2023-01-13] MEDS: CHOLECALCIFEROL 400 UNIT TABLET PO SCH (08:31)
[2023-01-13] MEDS: guaiFENesin 600 MG TABLET PO SCH ×2 (08:31→20:25)
[2023-01-13] MEDS: ENOXAPARIN 40 MG/0.4 ML SYRINGE SUBQ SCH ×2 (08:31→20:25)
[2023-01-13] MEDS: ASPIRIN EC 81 MG TABLET PO SCH (08:31)
[2023-01-13] MEDS: CALCIUM CITRATE 250 MG TABLET PO SCH (08:32)
[2023-01-13] MEDS: POTASSIUM CHLORIDE 10 MEQ CAPSULE PO SCH ×2 (08:33→17:21)
[2023-01-13] MEDS: ACETAMINOPHEN 325 MG TABLET PO PRN (08:34)
[2023-01-13] MEDS: INSULIN LISPRO 300 UNIT/3 ML PEN SUBQ SCH ×4 (12:09→20:30)
[2023-01-13] MEDS: LOSARTAN 50 MG TABLET PO SCH (12:11)
[2023-01-13] MEDS: acetaZOLAMIDE 250 MG TABLET PO SCH (12:19)
[2023-01-13] MEDS ORDERED: LOPERAMIDE 2 MG CAPSULE PO PRN (12:51)
[2023-01-13] MEDS: FUROSEMIDE 40 MG TABLET PO SCH (13:49)
--- NOTE | 2023-01-13 18:08 | PROVIDER PROGRESS NOTE ---
Assessment/Plan - Problem List (1) Acute and chronic respiratory failure with hypoxia Assessment/Plan: This is multifactorial: from acute bronchitis, COPD exacerbation and CHF exacerbation. She normally uses 2 L O2 at home and she came in hypoxic while on her 2 L of O2. Plan: Cont supplemental O2 with target O2 saturations greater than 88% Cont her home BiPAP machine to be used when asleep while she is here Cont to treat each of the underlying problems. (2) Bronchitis with acute wheezing Conclusion/Plan: She did not made a sputum sample to send for cx. She got empiric po Augmentin and empiric steroids, prn nebs and Mucinex. Plan: 01/08/2023- DCed Solumedrol January 11, 2023-discontinue oral antibiotics (3) CHF exacerbation Conclusion/Plan: Troponins were checked this admission, and she ruled out for an CT, as the cause of this CHF exacerbation She claims that her caregivers who prepare her meals "do not follow a low salt diet". She had anasarca with 4+ pitting edema all the way to her hips and her abdominal wall. Echocardiogram showed 1. Overall left ventricular systolic function is lower limits of normal with an ejection fraction of 50 to 55%. 2. Right ventricular systolic function is mildly impaired. 3. No concerning cardiac valve disease noted. Plan: Today we will change her IV Lasix to oral Lasix and if stable then anticipate discharge tomorrow Cont thr 2000 cc/day total fluid restriction Continue her usual cardiac medications (4) Anasarca She stated that she thought "this is the usual amount of leg edema she always has on exam". But this is anasarca with 4+ pitting edema all the way to her hips and her abdominal wall. I suspect she has >10 lbs of fluid to diurese off. In the past her RV was reported to be normal size with normal function on Echo, but I suspect that she now has Cor pulmonale, given this much anasarca. Since admission despite being on iv BID Lasix, she has only (-) fluid balance of 300 cc. I reviewed her I's and O's, and she drinks 2300 cc of fluids a day. Also, she claims that "her caregivers who prepare her meals do not follow a low salt diet". Plan: Cont IV twice daily Lasix and follow her I's and O's, daily weights I added a 2000 cc/day total fluid restriction, it may even need to be stricter I will order [employer] consult for CHF teac January 07, 2023-difficult to follow I's and O's as patient is using pure wick along with having some urine to go into a diaper so we will place Adler for appropriate AVELINO management. Have increased Lasix to 60 mg IV twice daily. January 08, 2023-patient patient had Adler placed yesterday and she is getting good diuresis we will decrease Lasix to 40 mg IV twice daily and monitor January 09, 2023-continues with diuresis and had proximately 1 L diuresis yesterday. She does have increasing bicarb secondary to some intravascular volume depletion (contraction alkalosis ) from her diuresis so will start her on Diamox daily. January 13, 2023 - Adler to be removed to assess if she still needs straight cath since I am anticipating discharge tomorrow. Continued Diamox. Change Lasix IV to p.o. to (5) Paroxysmal Afib On 01/04 her telemetry showed she went into Afib, first with a controlled HR, then Afib with RVR at 120-140 sustained. I had to give Lopressor 5 mg iv x1. She has had Parox Afib before, per records. I suspect we saw this A-fib with RVR because she missed 2 doses, therefore 24 hours, of her Carvedilol. Plan: I have resumed her usual Coreg twice daily dose, for heart rate control Her CHADS2 score is 1 or 2, so she needs to be at least on an asprin daily, for stroke prophylaxis. And she is on 1 baby aspirin daily, which is being continued. January 12, 2023-have been titrating down her Coreg due to bradycardia (6) Morbid obesity with BMI of 45.0-49.9, adult Conclusion/Plan: This complicates most of her care. She has become sedentary, only wheelchair- bound and bedbound and needs caregivers. (During a previous hospitalization it was documented that she would rather defecate into a diaper then go on to a commode). She has obesity hypoventilation syndrome Because of her obesity-hypoventilation syndrome she was to be on a CPAP machine and I ordered her home CPAP machine to be used here Plan: Will order OOB to chair with a sera lift Depending on if she wants to try to stand to pivot and get into a wheelchair, January 11, 2023-ordered OT PT consults and wound care consult for gluteal pressure ulcer (7) Sacral decubitus ulcer Wound consult was ordered, they never came Plan: Continue with topical zinc and ointment management and offload - Current Meds Current Meds: Current Medications Generic Name Dose Route Start Last Admin Trade Name Freq PRN Reason Stop Dose Admin Acetaminophen 650 mg 01/03/23 17:19 01/13/23 08:34 Acetaminophen 325 Mg Tablet PO 650 mg Q4HR PRN Administration Pain 1 to 4, or Fever Hydrocodone Bitart/Acetaminophen 1 tab 01/04/23 13:14 01/09/23 11:14 Hydrocod/Acetam 7.5 Mg/325 Mg Tablet PO 1 tab BID PRN Administration PAIN 5-7 Acetazolamide 250 mg 01/10/23 09:00 01/13/23 12:19 Acetazolamide 250 Mg Tablet PO 250 mg DAILY TAI Administration Albuterol/Ipratropium 3 ml 01/03/23 19:00 01/13/23 14:44 Ipratropium/Albuterol 3 Ml Neb INH 3 ml RTQID TAI Administration Amitriptyline HCl 50 mg 01/04/23 21:00 01/12/23 21:31 Amitriptyline 25 Mg Tablet PO 50 mg QPM TAI Administration Aspirin 81 mg 01/05/23 09:00 01/13/23 08:31 Aspirin Ec 81 Mg Tablet PO 81 mg DAILY TAI Administration Atorvastatin Calcium 20 mg 01/04/23 21:00 01/12/23 21:31 Atorvastatin 10 Mg Tablet PO 20 mg QPM TAI Administration Budesonide 0.5 mg 01/03/23 19:00 01/13/23 07:07 Budesonide 0.5 Mg/2 Ml Neb INH 0.5 mg RTBID TAI Administration Calcium Citrate 500 mg 01/05/23 09:00 01/13/23 08:32 Calcium Citrate 250 Mg Tablet PO 500 mg DAILY TAI Administration Cholecalciferol 400 unit 01/05/23 09:00 01/13/23 08:31 Cholecalciferol 400 Unit Tablet PO 400 unit DAILY TAI Administration Enoxaparin Sodium 40 mg 01/05/23 21:00 01/13/23 08:31 Enoxaparin 40 Mg/0.4 Ml Syringe SUBQ 40 mg BID TAI Administration Furosemide 40 mg 01/13/23 14:00 01/13/23 13:49 Furosemide 40 Mg Tablet PO 40 mg BIDDIURETIC TAI Administration Guaifenesin 600 mg 01/03/23 21:00 01/13/23 08:31 Guaifenesin 600 Mg Tablet PO 600 mg BID TAI Administration Insulin Human Lispro 1 - 5 unit 01/06/23 12:00 01/13/23 17:21 Insulin Lispro 300 Unit/3 Ml Pen SUBQ 1 unit 0800,1200,1700,2100 TAI Administration Protocol Losartan Potassium 25 mg 01/05/23 09:00 01/13/23 12:11 Losartan 50 Mg Tablet PO Not Given DAILY TAI Methocarbamol 750 mg 01/04/23 13:33 01/10/23 16:39 Methocarbamol 500 Mg Tablet PO 750 mg BID PRN Administration Spasms Mineral Oil 1 applic 01/03/23 21:22 01/11/23 10:22 Min Oil/Dimethicon/Coconut Oil 92 Gm Tube TOP 1 applic PRN PRN Administration Skin Care Montelukast Sodium 10 mg 01/05/23 21:00 01/12/23 21:31 Montelukast 10 Mg Tablet PO 10 mg QPM TAI Administration Multi-Ingredient Ointment 1 applic 01/04/23 13:14 01/11/23 10:22 Zinc Oxide 20% Oint 30 Gm Tube TOP 1 applic PRN PRN Administration Skin Care Multivitamins/Minerals 1 tab 01/05/23 08:00 01/13/23 08:31 Multivitamin W/Minerals Tablet PO 1 tab DAILYWM TAI Administration Pantoprazole Sodium 40 mg 01/05/23 07:00 01/13/23 05:46 Pantoprazole 40 Mg Tablet PO 40 mg QDAC TAI Administration Potassium Chloride 30 meq 01/10/23 17:00 01/13/23 17:21 Potassium Chloride 10 Meq Capsule PO 30 meq BIDWM TAI Administration Pregabalin 50 mg 01/04/23 14:00 01/13/23 13:49 Pregabalin 25 Mg Capsule PO 50 mg TID TAI Administration - Lab Result Fish Bone Diagrams: 01/14/23 05:42 01/14/23 05:42 - Additional Planning My Orders: My Active Orders 01/13/23 11:41 IV DC [IV Discontinuation] [RC] .ONCE Telemetry-Discontinue [RC] .ONCE 01/13/23 11:42 Pure Wick [External Catheter Care] [RC] QSHIFT 01/13/23 12:51 Loperamide [Imodium] 2 mg PO QID PRN 01/13/23 14:00 Furosemide [Lasix] 40 mg PO BIDDIURETIC Subjective - Subjective Patient Reports: Resting Comfortably (She is asleep, napping, using her supplemental O2), No Complaints Objective Vital Signs: Vital Signs - 24 hr 01/12/23 01/12/23 01/13/23 20:27 23:30 00:12 Temperature 36.9 C 36.9 C Heart Rate Heart Rate [ 51 L Brachial] Heart Rate [ 51 L Monitoring electrodes] Respiratory 18 21 Rate Blood Pressure 127/92 H [Left Brachial artery] Blood Pressure 161/91 H [Left Radial artery] O2 Saturation 96 98 If not protocol 2 2 2 : Oxygen Flow, liters/minute 01/13/23 01/13/23 01/13/23 05:20 07:16 07:27 Temperature 36.1 C L 36.2 C L Heart Rate 61 Heart Rate [ 46 L Brachial] Heart Rate [ 46 L 49 L Monitoring electrodes] Respiratory 20 18 20 Rate Blood Pressure 128/70 120/48 L [Left Brachial artery] Blood Pressure 98/58 L [Left Radial artery] O2 Saturation 96 98 If not protocol 2 2 2 : Oxygen Flow, liters/minute 01/13/23 01/13/23 01/13/23 10:50 12:29 14:46 Temperature 36.7 C Heart Rate 65 64 Heart Rate [ 52 L Brachial] Heart Rate [ Monitoring electrodes] Respiratory 18 20 20 Rate Blood Pressure 143/77 H [Left Brachial artery] Blood Pressure [Left Radial artery] O2 Saturation 98 If not protocol 2 : Oxygen Flow, liters/minute 01/13/23 17:00 Temperature 36.3 C L Heart Rate Heart Rate [ 47 L Brachial] Heart Rate [ Monitoring electrodes] Respiratory 20 Rate Blood Pressure 122/57 L [Left Brachial artery] Blood Pressure [Left Radial artery] O2 Saturation 99 If not protocol 2 : Oxygen Flow, liters/minute Oxygen O2 Source [Without Activity] Nasal cannula O2 Source [With Activity] Nasal cannula O2 Source Nasal cannula Oxygen Flow Rate 3 I&O (Last 24 Hrs): Intake and Output Totals x24h 01/11/23 01/12/23 01/13/23 23:59 23:59 23:59 Intake Total 1210 1310 340 Output Total 3550 2900 1325 Balance -2340 -1590 -985 General: Other (Lethargic and currently napping) HEENT: Mucous membr. moist/pink, Other (wearing suppl O2) Neck: Other (Obese) Neuro: Alert, Non Focal Cardiovascular: Other (distant heart sounds) Respiratory: Other (Distant breath sounds) Abdomen: Other (Obese with pannus) Extremities: Other (3+ edema) - Results Results: Laboratory Results WBC 10.6 x10^3/uL (4.8-10.8) 01/13/23 05:35 RBC 3.73 10^6/uL (4.20-5.40) L 01/13/23 05:35 Hgb 11.2 g/dL (12.0-16.0) L 01/13/23 05:35 Hct 37.0 % (37.0-47.0) 01/13/23 05:35 MCV 99.2 fL (81.0-99.0) H 01/13/23 05:35 MCH 30.0 pg (27.0-31.0) 01/13/23 05:35 MCHC 30.3 g/dL (32.0-36.0) L 01/13/23 05:35 RDW 13.6 % (12.0-15.0) 01/13/23 05:35 Plt Count 162 10^3/uL (130-450) 01/13/23 05:35 MPV 10.8 fL (7.9-10.8) 01/13/23 05:35 Neut # (Auto) 7.5 10^3/uL (1.5-6.6) H 01/13/23 05:35 Lymph # (Auto) 1.7 10^3/uL (1.5-3.5) 01/13/23 05:35 [place] # (Auto) 0.8 10^3/uL (0.0-1.0) 01/13/23 05:35 Eos # (Auto) 0.3 10^3/uL (0.0-0.7) 01/13/23 05:35 Baso # (Auto) 0.0 10^3/uL (0.0-0.1) 01/13/23 05:35 Absolute Nucleated RBC 0.00 x10^3/uL 01/13/23 05:35 Total Counted 100 01/10/23 05:01 Band Neuts % (Manual) 1 % (0-10) 01/10/23 05:01 Abnorm Lymph % (Manual) 0 % 01/10/23 05:01 Metamyelocytes % 1 % (-0) H 01/10/23 05:01 Myelocytes % 1 % (-0) H 01/10/23 05:01 Nucleated RBC % 0.0 /100WBC 01/13/23 05:35 Neutrophils # (Manual) 9.5 10^3/uL (1.5-6.6) H 01/10/23 05:01 Lymphocytes # (Manual) 1.4 10^3/uL (1.5-3.5) L 01/10/23 05:01 Monocytes # (Manual) 1.4 10^3/uL (0.0-1.0) H 01/10/23 05:01 Eosinophils # (Manual) 0.0 10^3/uL (0-0.7) 01/10/23 05:01 Basophils # (Manual) 0.0 10^3/uL (0-0.1) 01/10/23 05:01 Differential Comment MANUAL DIFFERENTIAL 01/10/23 05:01 WBC Morphology NORMAL APPEARANCE (NORMAL) 01/08/23 05:24 Platelet Estimate NORMAL (130-450,000) (NORMAL) 01/10/23 05:01 Platelet Morphology NORMAL APPEARANCE (NORMAL) 01/08/23 05:24 RBC Morph Micro Appear NORMAL APPEARANCE (NORMAL) 01/10/23 05:01 Sodium 142 mmol/L (135-145) 01/13/23 05:35 Potassium 3.5 mmol/L (3.5-5.0) 01/13/23 05:35 Chloride 96 mmol/L (101-111) L 01/13/23 05:35 Carbon Dioxide 39 mmol/L (21-32) H* 01/13/23 05:35 Anion Gap 7.0 (6-13) 01/13/23 05:35 BUN 38 mg/dL (6-20) H 01/13/23 05:35 Creatinine 0.8 mg/dL (0.4-1.0) 01/13/23 05:35 Estimated GFR (MDRD) 69 (>89) L 01/13/23 05:35 Glucose 141 mg/dL (70-100) H 01/13/23 05:35 POC Whole Bld Glucose 150 mg/dL (70 - 100) H 01/13/23 16:33 Estimat Average Glucose 131 mg/dL (70-100) H 01/07/23 08:38 Hemoglobin A1c % 6.2 % (4.27-6.07) H 01/07/23 08:38 Calcium 9.2 mg/dL (8.5-10.3) 01/13/23 05:35 Ionized Calcium NO 01/13/23 05:35 Magnesium 2.3 mg/dL (1.7-2.8) 01/13/23 05:35 Total Bilirubin 0.6 mg/dL (0.2-1.0) 01/03/23 12:21 AST 17 IU/L (10-42) 01/03/23 12:21 ALT 19 IU/L (10-60) 01/03/23 12:21 Alkaline Phosphatase 101 IU/L (42-121) 01/03/23 12:21 Troponin I High Sens 23.4 ng/L (2.3-14.8) H* 01/03/23 18:45 B-Natriuretic Peptide 328 pg/mL (5-100) H 01/04/23 05:06 Total Protein 7.6 g/dL (6.7-8.2) 01/03/23 12:21 Albumin 3.6 g/dL (3.2-5.5) 01/03/23 12:21 Globulin 4.0 g/dL (2.1-4.2) 01/03/23 12:21 Albumin/Globulin Ratio 0.9 (1.0-2.2) L 01/03/23 12:21 Lipase 31 U/L (22-51) 01/03/23 12:21 Nasal Adenovirus (PCR) NOT DETECTED 01/03/23 12:25 Nasal B. parapertussis DNA (PCR) NOT DETECTED 01/03/23 12:25 Nasal Coronavir 229E PCR NOT DETECTED 01/03/23 12:25 Nasal Coronavir HKU1 PCR NOT DETECTED 01/03/23 12:25 Nasal Coronavir NL63 PCR NOT DETECTED 01/03/23 12:25 Nasal Coronavir OC43 PCR NOT DETECTED 01/03/23 12:25 Nasal Enterovir/Rhinovir PCR NOT DETECTED 01/03/23 12:25 Nasal Influenza B PCR NOT DETECTED 01/03/23 12:25 Nasal Influenza A PCR NOT DETECTED 01/03/23 12:25 Nasal Parainfluen 1 PCR NOT DETECTED 01/03/23 12:25 Nasal Parainfluen 2 PCR NOT DETECTED 01/03/23 12:25 Nasal Parainfluen 3 PCR NOT DETECTED 01/03/23 12:25 Nasal Parainfluen 4 PCR NOT DETECTED 01/03/23 12:25 Nasal RSV (PCR) NOT DETECTED 01/03/23 12:25 Nasal B.pertussis DNA PCR NOT DETECTED 01/03/23 12:25 Nasal C.pneumoniae (PCR) NOT DETECTED 01/03/23 12:25 Ankit Human Metapneumo PCR NOT DETECTED 01/03/23 12:25 Nasal M.pneumoniae (PCR) NOT DETECTED 01/03/23 12:25 Nasal SARS-CoV-2 (PCR) NOT DETECTED 01/03/23 12:25 Stl C. diff Tox B Gene NEGATIVE (NEGATIVE) 01/13/23 09:45 - Procedures Procedures: Procedures CATARAC PHACOEMULS/ASPIR (04/27/14) INSERT LENS AT CATAR EXT (04/27/14) INSERTION OF INFUSION DEV INTO SUP VENA CAVA, PERC APPROACH (06/02/22) REPLACEMENT OF LEFT LENS WITH SYNTH SUB, PERC APPROACH (09/25/16)
[2023-01-13] MEDS: ATORVASTATIN 10 MG TABLET PO SCH (20:26)
[2023-01-13] MEDS: MONTELUKAST 10 MG TABLET PO SCH (20:26)
[2023-01-13] MEDS: AMITRIPTYLINE 25 MG TABLET PO SCH (20:26)
[2023-01-13] MEDS: ZINC OXIDE 20% OINT 30 GM TUBE TOP PRN (21:53)
[2023-01-13] MEDS: MIN OIL/DIMETHICON/COCONUT OIL 92 GM TUBE TOP PRN (21:54)
[2023-01-14] MEDS: HYDROcod/ACETAM 7.5 MG/325 MG TABLET PO PRN (04:47)
[2023-01-14] MEDS: FUROSEMIDE 40 MG TABLET PO SCH ×2 (06:01→14:15)
[2023-01-14] MEDS: PANTOPRAZOLE 40 MG TABLET PO SCH (06:01)
[2023-01-14] MEDS: PREGABALIN 25 MG CAPSULE PO SCH ×2 (06:01→14:15)
[2023-01-14 06:17] LABS: BASOPHILS % (AUTO) 0.2 %; EOSINOPHILS # (AUTO) 0.2 10^3/uL (0.0-0.7); EOSINOPHILS % (AUTO) 2.1 %; HCT - HEMATOCRIT 37.3 % (37.0-47.0); HGB - HEMOGLOBIN 11.3 g/dL (12.0-16.0); LYMPHOCYTES # (AUTO) 1.4 10^3/uL (1.5-3.5); LYMPHOCYTES % (AUTO) 12.3 %; MEAN CORPUSCULAR HEMOGLOBIN 30.1 pg (27.0-31.0); MEAN CORPUSCULAR HGB CONC 30.3 g/dL (32.0-36.0); MEAN CORPUSCULAR VOLUME 99.5 fL (81.0-99.0); MEAN PLATELET VOLUME 11.6 fL (7.9-10.8); MONOCYTES # (AUTO) 0.9 10^3/uL (0.0-1.0); MONOCYTES % (AUTO) 7.5 %; NEUTROPHILS # (AUTO) 8.9 10^3/uL (1.5-6.6); NEUTROPHILS % (AUTO) 76.1 %; PLT - PLATELET COUNT 162 10^3/uL (130-450); RED BLOOD COUNT 3.75 10^6/uL (4.20-5.40); RED CELL DISTRIBUTION WIDTH 13.6 % (12.0-15.0); WHITE BLOOD COUNT 11.7 x10^3/uL (4.8-10.8)
[2023-01-14] MEDS: IPRATROPIUM/ALBUTEROL 3 ML NEB INH SCH ×2 (06:18→11:01)
[2023-01-14] MEDS: BUDESONIDE 0.5 MG/2 ML NEB INH SCH (06:18)
[2023-01-14 06:26] LABS: BUN - BLOOD UREA NITROGEN 34 mg/dL (6-20); CALCIUM 9.2 mg/dL (8.5-10.3); CARBON DIOXIDE - CO2 38 mmol/L (21-32); CHLORIDE 97 mmol/L (101-111); CREATININE 0.7 mg/dL (0.4-1.0); GFR - MDRD 80 (>89); GLUCOSE 134 mg/dL (70-100); IONIZED CALCIUM IF INDICATED NO; MAGNESIUM 2.2 mg/dL (1.7-2.8); POTASSIUM 3.7 mmol/L (3.5-5.0); SODIUM 141 mmol/L (135-145)
[2023-01-14] MEDS: INSULIN LISPRO 300 UNIT/3 ML PEN SUBQ SCH ×3 (08:09→16:57)
[2023-01-14] MEDS: ENOXAPARIN 40 MG/0.4 ML SYRINGE SUBQ SCH (08:51)
[2023-01-14] MEDS: POTASSIUM CHLORIDE 10 MEQ CAPSULE PO SCH ×2 (08:52→16:22)
[2023-01-14] MEDS: ASPIRIN EC 81 MG TABLET PO SCH (08:52)
[2023-01-14] MEDS: LOSARTAN 50 MG TABLET PO SCH (08:52)
[2023-01-14] MEDS: guaiFENesin 600 MG TABLET PO SCH (08:52)
[2023-01-14] MEDS: CHOLECALCIFEROL 400 UNIT TABLET PO SCH (08:52)
[2023-01-14] MEDS: acetaZOLAMIDE 250 MG TABLET PO SCH (08:52)
[2023-01-14] MEDS: CALCIUM CITRATE 250 MG TABLET PO SCH (08:52)
[2023-01-14] MEDS: MULTIVITAMIN W/MINERALS TABLET PO SCH (08:52)
--- NOTE | 2023-01-14 11:32 | Discharge Plan ---
Discharge Plan Problem Reviewed?: Yes Disposition: Home, Self Care Condition: Fair Prescriptions: acetaZOLAMIDE [Diamox] 250 mg PO DAILY #14 tab Potassium Chloride [Micro-K] 30 meq PO DAILY #90 cap Diet: Low Sodium Activity Restrictions: Activity as Tolerated Shower Restrictions: No Driving Restrictions: Yes Health Concerns: You were hospitalized because of shortness of breath and low oxygen levels and the cause was found to be fluid overload in your lungs and your whole body. You received many days of IV diuretic medicine to eliminate the fluid. You are being discharged home today. Please resume all the usual caregiving help that you get at home. Exercises to do in bed were reviewed with you while you were here by our Physical Therapist. Please follow this list of medications which you should be taking now. There are 2 new prescriptions, which were electronically sent to your [facility] pharmacy in [place]. Please remember that you should stick to a fluid restriction of drinking less than 2 Liters/day of all fluids combined. If you take in more, this will cause fluid re-accumulation and lead to the same problem. If your meals are made by the caregivers, they MUST be making those meals following a low salt diet. Our Dietitian gave you reminders for what to do about fluid intake and decreasing salt intake, and you must take responsibility for that. You should have an appointment with your primary care provider in the next 1 to 2 weeks for hospital follow-up visit and blood work. Plan of Treatment: As above. Care Goals: Improvement in symptoms and stabilization are the goals. Assessment: The patient understands the plan. Additional Instructions or Follow Up instructions: If you have new or worsening symptoms, call your primary care provider for advice, or come to an ER. No Smoking: If you smoke, Please STOP! Call for help. Follow-up with: Miryam Potts PA-C [Primary Care Provider] -
--- NOTE | 2023-01-14 12:21 | DISCHARGE SUMMARY ---
Discharge Summary Admit Date: 01/03/23 Discharge Date: 01/14/23 Discharging Provider: Dr Mikala Jolly Primary Care Provider: BIANKA Potts Code Status: Attempt Resuscitation Condition at Discharge: Fair Discharge Disposition: 01 Home, Self Care - HPI History of Present Illness: This is an 82-year-old white female who lives alone but has many caregivers 7 days a week. She has a history of asthma but does not routinely take inhalers or nebulizers. She is on home O2 at 2 L/min. There is a history of diastolic heart failure and seasonal allergies. She has a history of obesity hypoventilation syndrome and has a CPAP at night. She is bedbound and wheelchair-bound at baseline and has morbid obesity. For the last 2 to 3 days she has had a cough and wheezing and shortness of breath and her chronic leg edema did not worsen. She claims that she is compliant with all her medications and says that the caregivers are the ones who make the meals so sometimes they do not give her a low-salt meal. Today her shortness of breath got remarkably worse and she called an ambulance. There is no ambulance run sheet scanned into this EMR to review her documented vital signs on the scene. She received Lasix IV by the paramedics and was transported to the ER on 2 L nasal cannula. In our ER she was noted to have wheezing, rales and rhonchi. She received nebulizer treatments x2 and was put on 3 L nasal cannula when her O2 saturation dropped to 78% on 2L of O2. She has had a good urine output of over 1000 cc while in the ER from the IV Lasix given by paramedics. Labs show that she has a white count of 17, respiratory PCR is entirely negative, BNP is 225 (her baseline is 98), chest x-ray shows CHF and no infiltrate. The ER doctor spoke to me about her. The patient will be admitted for acute on chronic respiratory failure with hypoxia, acute bronchitis, COPD exacerbation and CHF exacerbation. The patient had a POLST on file which stated DNR/DNI. At admission, I spoke to the patient about her CODE BLUE wishes and she wants to have resuscitation but no intubation, therefore I will order Full Code but DNI. The old POLST will be shredded. She and I will fill out a new POLST. - HOSPITAL COURSE Hospital Course: (1) Acute and chronic respiratory failure with hypoxia This was multifactorial: from acute bronchitis, COPD exacerbation and CHF exacerbation. She normally uses 2 L O2 at home and she came in hypoxic while on her 2 L of O2. Her home BiPAP machine was used when asleep while she was here. She was aggressively diuresed. With this she was able to stay on her supplemental O2 at 2 L. (2) Bronchitis with acute wheezing She did not made a sputum sample to send for cx. She completed a course of empiric po Augmentin and got empiric steroids for several days, prn nebs and Mucinex. (3) CHF exacerbation She had anasarca with 4+ pitting edema all the way to her hips and her abdominal wall. Troponins were checked and she ruled out for an NC, as the cause of this CHF exacerbation. She claimed that her caregivers who prepare her meals "do not follow a low salt diet". He was kept on her same cardiac medications except, she was put on IV twice daily Lasix. This was continued until the day before discharge, when she was transitioned to oral Lasix. Initially there was no negative fluid balance, which we found was because she drinks greater than 2 L of liquids per day. A fluid restriction was then ordered and to be continued after discharge. An Echocardiogram was done which showed: Overall left ventricul ar systolic function is lower limits of normal with an ejection fraction of 50 to 55%. Right ventricular systolic function is mildly impaired. No concerning cardiac valve disease noted. (4) Anasarca At admission she said she thought "this was the usual amount of leg edema she always has on exam". But this was anasarca with 4+ pitting edema all the way to her hips and her abdominal wall. I suspect it had built up so slowly that she did not even realize it, until it gave her SOB. Management was as a #3. She only lost 3 kg during the entire hospital stay. (5) Acute urinary retention Because she needed diuresis, her urinary bladder was scanned often and noted to have incomplete emptying. She had straight caths done several times. Prior to discharge, she was offered to have a Adler catheter inserted, to manage urinary retenrion, since none of her hired caregivers could do straight cathing. She agreed to get a Adler. She therefore needs Urology evaluation and management of this new problem. (6) Paroxysmal Afib On 01/04 her telemetry showed Afib, first with a controlled HR, then Afib with RVR at 120-140 sustained. She received Lopressor iv. We ordered her usual Coreg twice daily dose while here. Her CHADS2 score is 1, so she needs to be on asprin daily, for stroke prophylaxis, and she was on 1 baby aspirin daily, which was continued. (7) Morbid obesity with BMI of 45.0-49.9, adult This complicates most of her care. She is sedentary, only wheelchair-bound and bedbound and needs caregivers. (During a previous hospitalization it was documented that she would rather defecate into a diaper then go on a commode). She has obesity hypoventilation syndrome, and I ordered her home CPAP machine to be used here. PT and OT saw her and advised sitting exercises. (8) Sacral decubitus ulcer Wound consult was ordered, they never came. She was managed with topical zinc and ointment and offloading. - ALLERGIES Allergies/Adverse Reactions: Allergies Allergy/AdvReac Type Severity Reaction Status Date / Time No Known Drug Allergies Allergy Verified 01/03/23 12:16 - MEDICATIONS Home Medications: Ambulatory Orders Medication Instructions Recorded Confirmed Omeprazole 20 mg PO BID 04/27/14 01/04/23 Aspirin [Aspir-Low] 81 mg PO DAILY 09/25/16 01/04/23 HYDROcodone/ACET 7.5/325 [[place] 1 tab PO BID PRN 10/09/21 01/04/23 7.5/325] carvediloL [Coreg] 12.5 mg PO BID 10/09/21 01/04/23 Amitriptyline HCl 50 mg PO QPM 04/03/22 01/04/23 Atorvastatin [Lipitor] 20 mg PO QPM 04/03/22 01/04/23 Furosemide [Lasix] 40 mg PO 1200 04/03/22 01/04/23 Furosemide [Lasix] 60 mg PO QDBREAKFAST 04/03/22 01/04/23 Pregabalin 50 mg PO TID 06/02/22 01/04/23 Carboxymethylcellulose 1% Opht 1 drops EACHEYE PRN PRN ml 06/10/22 01/04/23 [Refresh 1% Ophth Drops] Losartan [Cozaar] 25 mg PO DAILY #15 tab 06/10/22 01/04/23 Zinc Oxide 20% Oint [Zinc Oxide] 1 applic TOP PRN PRN each 06/10/22 01/04/23 Acetaminophen [Tylenol Arthritis] 650 mg PO Q8HR PRN 01/04/23 01/04/23 Calcium Citrate/Vitamin D3 500 mg PO DAILY 01/04/23 01/04/23 [Calcium Cit 200-Vit D3 250 Tab] Multivitamin/Iron/Folic Acid 1 tab PO DAILY 01/04/23 01/04/23 [Centrum Women Tablet] Ubidecarenone/Vit E Acet [Co Q-10 100 mg PO DAILY 01/04/23 01/04/23 100 mg Softgel] methocarbamoL [Methocarbamol] 750 mg PO 1-2XD PRN 01/04/23 01/04/23 Potassium Chloride [Micro-K] 30 meq PO DAILY #90 cap 01/14/23 acetaZOLAMIDE [Diamox] 250 mg PO DAILY #14 tab 01/14/23 - PHYSICAL EXAM AT DISCHARGE General Appearance: positive: Alert, Mild distress (From pain of her sacral decubitus) Eyes Bilateral: positive: Normal inspection, EOMI ENT: positive: ENT inspection nml, No signs of dehydration Neck: positive: Nml inspection Respiratory: positive: No respiratory distress (wearing O2 via n.c.), Breath sounds nml Cardiovascular: positive: Irregularly irregular (Distant heart sounds due to morbid obesity) Abdomen: positive: Non-tender, Other (Obese with a pannus, distant bowel sounds) Skin: positive: Warm, Dry Extremities: positive: Non-tender, Other (3+ edema to the knees) Neurologic/Psychiatric: positive: Oriented x3, Motor nml - LABS Result Diagrams: 01/14/23 05:42 01/14/23 05:42 - DIAGNOSTIC IMAGING Diagnostic Imaging Results: Final report reviewed - FOLLOW UP Follow Up: See PCP in 1 to 2 weeks for hospital follow-up visit. - TIME SPENT Time Spent in Discharge (Minutes): 45
[2023-01-14 16:25] VITALS: BP 102/58
[2023-01-14] MEDS: ACETAMINOPHEN 325 MG TABLET PO PRN (16:26)
== END 2023-01-14 17:00 | disposition home or self-care (01) | DRG 189 ==
LOC: ED 12:06 → MS2 17:19
PROVIDERS: ADMIT Internal Medicine; ATTEND Internal Medicine
DX: J96.21 Acute and chronic respiratory failure with hypoxia (principal); E66.2 Morbid (severe) obesity with alveolar hypoventilation; R09.02 Hypoxemia; Z68.42 Body mass index [BMI] 45.0-49.9, adult; J44.1 Chronic obstructive pulmonary disease with (acute) exacerbation; I50.30 Unspecified diastolic (congestive) heart failure; G47.30 Sleep apnea, unspecified; R35.0 Frequency of micturition; Z20.822 Contact with and (suspected) exposure to COVID-19; I11.0 Hypertensive heart disease with heart failure; R60.1 Generalized edema; R33.9 Retention of urine, unspecified; I48.0 Paroxysmal atrial fibrillation; L89.159 Pressure ulcer of sacral region, unspecified stage; I25.10 Atherosclerotic heart disease of native coronary artery without angina pectoris; E78.00 Pure hypercholesterolemia, unspecified; J20.9 Acute bronchitis, unspecified; I27.81 Cor pulmonale (chronic); K21.9 Gastro-esophageal reflux disease without esophagitis; R53.1 Weakness; Z74.01 Bed confinement status; Z99.3 Dependence on wheelchair; Z99.81 Dependence on supplemental oxygen
CPT/HCPCS: 36415; 71045; 80048; 80053; 83036; 83690; 83735; 83880; 84484; 85025; 87493; 87633; 93005; 93306; 94640; 94667; 94668; 96365; 96366; 96375; 97110; 97162; 97166; 99285; 99291; A6250; A9270; J1650; J7626

== ENCOUNTER 2023-01-26 10:53 | Outpatient (CLI) | payer MEDICARE, BC ==
[2023-01-26 17:42] LABS: BASOPHILS % (AUTO) 0.5 %; EOSINOPHILS # (AUTO) 0.3 10^3/uL (0.0-0.7); EOSINOPHILS % (AUTO) 3.1 %; HCT - HEMATOCRIT 39.7 % (37.0-47.0); HGB - HEMOGLOBIN 11.9 g/dL (12.0-16.0); LYMPHOCYTES % (AUTO) 12.7 %; MEAN CORPUSCULAR HEMOGLOBIN 29.9 pg (27.0-31.0); MEAN CORPUSCULAR VOLUME 99.7 fL (81.0-99.0); MEAN PLATELET VOLUME 12.5 fL (7.9-10.8); MONOCYTES # (AUTO) 0.5 10^3/uL (0.0-1.0); MONOCYTES % (AUTO) 6.4 %; NEUTROPHILS # (AUTO) 6.3 10^3/uL (1.5-6.6); NEUTROPHILS % (AUTO) 76.9 %; PLT - PLATELET COUNT 200 10^3/uL (130-450); RED BLOOD COUNT 3.98 10^6/uL (4.20-5.40); RED CELL DISTRIBUTION WIDTH 15.2 % (12.0-15.0); WHITE BLOOD COUNT 8.1 x10^3/uL (4.8-10.8)
[2023-01-26 17:53] LABS: BILIRUBIN,URINE NEGATIVE (NEGATIVE); GLUCOSE, URINE (UA) NEGATIVE (NEGATIVE); KETONES,URINE (UA) NEGATIVE (NEGATIVE); LEUKOCYTE ESTERASE, URINE LARGE (NEGATIVE); NITRITE,URINE NEGATIVE (NEGATIVE); OCCULT BLOOD,URINE NEGATIVE (NEGATIVE); PH,URINE 7.5 PH (5.0-7.5); PROTEIN,URINE NEGATIVE (NEGATIVE); UROBILINOGEN,URINE 0.2 (NORMAL) E.U./dL (NORMAL)
[2023-01-26 17:55] LABS: CALCIUM 9.9 mg/dL (8.5-10.3); CREATININE 0.7 mg/dL (0.4-1.0); POTASSIUM 3.8 mmol/L (3.5-5.0)
[2023-01-26 18:12] LABS: AMORPHOUS SEDIMENT,UR Few /LPF; BACTERIA,URINE Many /HPF (None Seen); CLARITY,URINE HAZY (CLEAR); SQUAMOUS EPITHELIAL CELL,UR FEW Squamous (<= Few); WBC CLUMPS,URINE PRESENT; WBC,URINE >25 /HPF (0-5)
== END 2023-01-26 10:54 | disposition home or self-care (01) ==
LOC: LAB.N 10:53
PROVIDERS: ATTEND Physician Assistant Medical
DX: I48.0 Paroxysmal atrial fibrillation (principal); I50.9 Heart failure, unspecified; R60.9 Edema, unspecified; R33.9 Retention of urine, unspecified
CPT/HCPCS: 36415; 80048; 81001; 83880; 85025; 87077; 87086; 87181

== ENCOUNTER 2023-03-24 08:00 | Outpatient (CLI) | payer MEDICARE, BC ==
[2023-03-24 12:46] LABS: BILIRUBIN,URINE NEGATIVE (NEGATIVE); GLUCOSE, URINE (UA) NEGATIVE (NEGATIVE); KETONES,URINE (UA) NEGATIVE (NEGATIVE); LEUKOCYTE ESTERASE, URINE LARGE (NEGATIVE); NITRITE,URINE POSITIVE (NEGATIVE); OCCULT BLOOD,URINE TRACE-INTA (NEGATIVE); PROTEIN,URINE NEGATIVE (NEGATIVE); UROBILINOGEN,URINE 0.2 (NORMAL) E.U./dL (NORMAL)
[2023-03-24 13:03] LABS: BACTERIA,URINE Moderate /HPF (None Seen); CLARITY,URINE SL. CLOUDY (CLEAR); RBC,URINE 0-5 /HPF (0-5); SQUAMOUS EPITHELIAL CELL,UR NONE SEEN (<= Few); WBC,URINE >25 /HPF (0-5)
== END 2023-03-24 23:59 | disposition home or self-care (01) ==
LOC: LAB.WCP 08:00
PROVIDERS: ATTEND Physician Assistant Medical
DX: R30.0 Dysuria (principal)
CPT/HCPCS: 81001; 87077; 87086; 87181

== ENCOUNTER 2023-05-11 09:26 | Outpatient (CLI) | payer MEDICARE, BC ==
[~2023-05-11 09:26] MED LIST: LIDOCAINE 1%-EPI 1:100000 50 ML VIAL ONE; LIDOCAINE-MPF 1% 5 ML VIAL ONE
[2023-05-11] MEDS ORDERED: LIDOCAINE-MPF 1% 5 ML VIAL TD ONE (13:25)
[2023-05-11] MEDS ORDERED: LIDOCAINE 1%-EPI 1:100000 50 ML VIAL SUBQ SCH (14:00)
[2023-05-11] MEDS ORDERED: LIDOCAINE 1%-EPI 1:100000 50 ML VIAL SUBQ ONE (14:00)
--- NOTE | 2023-05-12 16:21 | Mammography Report ---
UNILATERAL RIGHT DIGITAL DIAGNOSTIC MAMMOGRAM WITH MEDIOLATERAL OBLIQUE POST-PROCEDURE IMAGING FOR MA RKER PLACEMENT: 05/11/2023 CLINICAL: Post right breast ultrasound biopsy clip placement imaging. Comparison is made to exams dated: 04/23/2023 mammogram, 12/04/2022 mammogram, 10/19/2020 mammogram - [facility], 11/30/2017 mammogram, and 09/08/2016 mammogram - [facility]. There are scattered areas of fibroglandular density in the right breast (category b / 25%-50% glandul ar tissue). Post-surgical changes of the breast are present as before. The marker clip from the same day biopsy i s not visualized likely due to difficulty with patient positioning for the exam. IMPRESSION: POST PROCEDURE MAMMOGRAM FOR MARKER PLACEMENT The marker clip from the same day biopsy is not visualized likely due to difficulty with patient posi tioning for the exam. This exam was interpreted at Station ID: [id number]. NOTE: For mammograms, a report in lay terms will be sent to the patient. Approximately 15% of breast malignancies will not be visualized mammographically. In the management of a palpable breast mass, a negative mammogram must not discourage biopsy of a clinically suspicious lesion. Electronically Signed By: Dr. Richard Charlton M.D. an/:05/11/2023 12:43:23 ACR BI-RADS Category Post-procedure mammogram for marker placement PARENCHYMAL PATTERN: (A) - The breast(s) demonstrate(s) scattered fibroglandular densities. BI-RADS CATEGORY: () - Unspecified - other recall n/a LATERALITY: (B)
--- NOTE | 2023-05-15 09:58 | Ultrasound Report ---
ULTRASOUND GUIDED BIOPSY RIGHT BREAST WITH MARKING DEVICE INSERTED: 05/11/2023 CLINICAL: Right breast mass. PATIENT CONSENT: Risks (minor bleeding, infection, vasovagal reaction and repeat procedure), benefits and alternatives were explained to the patient and written informed consent was obtained. Correlation is made to exams dated: 04/23/2023 ultrasound, 04/23/2023 mammogram, 12/04/2022 mammogram, mammogram - [facility], 11/30/2017 mammogram, and 09/08/2016 mammogram - [facility]. An ultrasound guided biopsy using real-time ultrasound was performed for the mass located in the righ t breast at 12 o'clock middle depth. This was described on the previous ultrasound report. The skin was prepped in the usual manner. Local anesthetic was administered to the access site. The abnorma lity was approached from the medial aspect. A biopsy needle was placed adjacent to the abnormality u nder ultrasound guidance. Once the needle was documented to be in the correct location, three passes were made using an Achieve automated firing device. A clip was inserted into the biopsy cavity. Th e specimens were sent to the laboratory for pathological analysis. IMPRESSION: ULTRASOUND GUIDED BIOPSY MALIGNANT Ultrasound guided biopsy of the mass in the right breast at 12 o'clock middle depth was successful. Pathology indicates malignant invasive lobular carcinoma ([place]). Pathology results are concordant with imaging findings. A surgical/oncologic consultation is recommended. This exam was interpreted at Station ID: [id number]. Dr. Richard ortega,aty/:05/14/2023 07:40:54 BI-RADS CATEGORY: () - Unspecified - other recall n/a LATERALITY: (B)
== END 2023-05-11 09:27 | disposition home or self-care (01) ==
LOC: DI 09:26
PROVIDERS: ATTEND Nurse Practitioner
DX: C50.411 Malignant neoplasm of upper-outer quadrant of right female breast (principal); Z17.0 Estrogen receptor positive status [ER+]
CPT/HCPCS: 19083; 77065; 88305; 88341; 88342; 88360; J3490

== ENCOUNTER 2023-05-23 13:33 | Outpatient (CLI) | payer MEDICARE, BC | END 2023-05-23 13:34 | disposition critical access hospital (66) | LOC: EMS 13:33 | DX: R53.83 Other fatigue (principal); R45.1 Restlessness and agitation; R39.89 Other symptoms and signs involving the genitourinary system; Z99.81 Dependence on supplemental oxygen | CPT/HCPCS: A0425; A0429 ==

== ENCOUNTER 2023-05-23 13:55 | Emergency (ER) | payer MEDICARE, BC ==
[2023-05-23 15:25] LABS: BASOPHILS % (AUTO) 0.2 %; EOSINOPHILS # (AUTO) 0.2 10^3/uL (0.0-0.7); EOSINOPHILS % (AUTO) 1.9 %; HCT - HEMATOCRIT 39.7 % (37.0-47.0); HGB - HEMOGLOBIN 11.6 g/dL (12.0-16.0); LYMPHOCYTES # (AUTO) 1.1 10^3/uL (1.5-3.5); LYMPHOCYTES % (AUTO) 9.2 %; MEAN CORPUSCULAR HEMOGLOBIN 29.8 pg (27.0-31.0); MEAN CORPUSCULAR HGB CONC 29.2 g/dL (32.0-36.0); MEAN CORPUSCULAR VOLUME 102.1 fL (81.0-99.0); MEAN PLATELET VOLUME 11.8 fL (7.9-10.8); MONOCYTES # (AUTO) 1.1 10^3/uL (0.0-1.0); MONOCYTES % (AUTO) 8.9 %; NEUTROPHILS # (AUTO) 9.8 10^3/uL (1.5-6.6); NEUTROPHILS % (AUTO) 79.2 %; PLT - PLATELET COUNT 160 10^3/uL (130-450); RED BLOOD COUNT 3.89 10^6/uL (4.20-5.40); RED CELL DISTRIBUTION WIDTH 14.2 % (12.0-15.0); WHITE BLOOD COUNT 12.3 x10^3/uL (4.8-10.8)
--- NOTE | 2023-05-23 15:44 | ED Physician Documentation ---
History of Present Illness - Stated complaint Stated Complaint: FATIGUE - Chief complaint Chief Complaint: General - History obtained from History obtained from: Patient, EMS - History of Present Illness Timing: How many days ago (2) Pain level max: 0 Pain level now: 0 - Additonal information Additional information: Patient is an 82 year old female, who presents to the emergency department stating she's been fatigued for the past two days. She states that she has no other complaints. No fevers. No chills. No cough. No congestion. No abdominal pain, nausea or vomiting. No UTI symptoms. No falls. Caregivers called 911 because she was sleeping today. Patient states not sleeping well at night and so is sleeping more during the day. Review of Systems Constitutional: denies: Fever, Chills Respiratory: denies: Cough GI: denies: Vomiting, Diarrhea Skin: denies: Rash Musculoskeletal: denies: Neck pain, Back pain Neurologic: denies: Headache PD PAST MEDICAL HISTORY - Past Medical History Past Medical History: Yes Cardiovascular: Hypertension, High cholesterol, Coronary artery disease, Valve disorder, Other Respiratory: Shortness of breath, Sleep apnea, CPAP use Neuro: Peripheral neuropathy Endocrine/Autoimmune: Other GI: GERD, Other FL[employer] K[employer] MANAGER: Breast cancer : Frequency HEENT: Chronic vision loss Psych: None Musculoskeletal: Osteoarthritis, Fibromyalgia, Chronic back pain, Other Derm: Rosacea - Past Surgical History Past Surgical History: Yes General: Cholecystectomy, Appendectomy, Colonoscopy /FL[employer] K[employer] MANAGER: Hysterectomy, Oophrectomy, Other HEENT: Cataracts Derm: Skin cancer surgery - Present Medications Home Medications: Ambulatory Orders Medication Instructions Recorded Confirmed Omeprazole 20 mg PO BID 04/27/14 01/04/23 Aspirin [Aspir-Low] 81 mg PO DAILY 09/25/16 01/04/23 HYDROcodone/ACET 7.5/325 [Calvin 1 tab PO BID PRN 10/09/21 01/04/23 7.5/325] carvediloL [Coreg] 12.5 mg PO BID 10/09/21 01/04/23 Amitriptyline HCl 50 mg PO QPM 04/03/22 01/04/23 Atorvastatin [Lipitor] 20 mg PO QPM 04/03/22 01/04/23 Furosemide [Lasix] 40 mg PO 1200 04/03/22 01/04/23 Furosemide [Lasix] 60 mg PO QDBREAKFAST 04/03/22 01/04/23 Pregabalin 50 mg PO TID 06/02/22 01/04/23 Carboxymethylcellulose 1% Opht 1 drops EACHEYE PRN PRN ml 06/10/22 01/04/23 [Refresh 1% Ophth Drops] Losartan [Cozaar] 25 mg PO DAILY #15 tab 06/10/22 01/04/23 Zinc Oxide 20% Oint [Zinc Oxide] 1 applic TOP PRN PRN each 06/10/22 01/04/23 Acetaminophen [Tylenol Arthritis] 650 mg PO Q8HR PRN 01/04/23 01/04/23 Calcium Citrate/Vitamin D3 500 mg PO DAILY 01/04/23 01/04/23 [Calcium Cit 200-Vit D3 250 Tab] Multivitamin/Iron/Folic Acid 1 tab PO DAILY 01/04/23 01/04/23 [Centrum Women Tablet] Ubidecarenone/Vit E Acet [Co Q-10 100 mg PO DAILY 01/04/23 01/04/23 100 mg Softgel] methocarbamoL [Methocarbamol] 750 mg PO 1-2XD PRN 01/04/23 01/04/23 Potassium Chloride [Micro-K] 30 meq PO DAILY #90 cap 01/14/23 acetaZOLAMIDE [Diamox] 250 mg PO DAILY #14 tab 01/14/23 cephALEXin [Keflex] 500 mg PO Q6H #20 cap 05/23/23 - Allergies Allergies/Adverse Reactions: Allergies Allergy/AdvReac Type Severity Reaction Status Date / Time No Known Drug Allergies Allergy Verified 05/23/23 14:16 - Social History Does the pt smoke?: No Smoking Status: Never smoker Does the pt drink ETOH?: No Does the pt have substance abuse?: Yes - Immunizations Immunizations are current?: Yes - POLST Patient has POLST: No POLST Status: DNR Results - Vitals Vitals: Vital Signs - 24 hr 05/23/23 05/23/23 05/23/23 14:16 14:19 16:19 Temperature 36.5 C 36.5 C Heart Rate 60 60 63 Respiratory 18 18 18 Rate Blood Pressure 140/73 H 140/73 H 149/65 H O2 Saturation 96 96 92 If not protocol 2 2 : Oxygen Flow, liters/minute 05/23/23 18:00 Temperature 36.5 C Heart Rate 60 Respiratory 18 Rate Blood Pressure 140/66 H O2 Saturation 94 If not protocol 2 : Oxygen Flow, liters/minute Oxygen O2 Source [Without Activity] Nasal cannula O2 Source [With Activity] Nasal cannula O2 Source Nasal cannula - Labs Labs: Laboratory Tests 05/23/23 05/23/23 05/23/23 15:13 15:13 17:18 WBC 12.3 H RBC 3.89 L Hgb 11.6 L Hct 39.7 MCV 102.1 H MCH 29.8 MCHC 29.2 L RDW 14.2 Plt Count 160 MPV 11.8 H Neut # (Auto) 9.8 H Lymph # (Auto) 1.1 L [place] # (Auto) 1.1 H Eos # (Auto) 0.2 Baso # (Auto) 0.0 Absolute Nucleated RBC 0.00 Nucleated RBC % 0.0 Sodium 140 Potassium 3.9 Chloride 95 L Carbon Dioxide 42 H* Anion Gap 3.0 L BUN 26 H Creatinine 1.0 Estimated GFR (MDRD) 53 L Glucose 128 H Calcium 10.0 Total Bilirubin 0.3 AST 14 ALT 12 Alkaline Phosphatase 94 Total Protein 7.3 Albumin 3.7 Globulin 3.6 Albumin/Globulin Ratio 1.0 Lipase 14 Urine Color YELLOW Urine Clarity CLOUDY Urine pH 5.5 Ur Specific [place] 1.025 Urine Protein NEGATIVE Urine Glucose (UA) NEGATIVE Urine Ketones NEGATIVE Urine Occult Blood MODERATE H Urine Nitrite NEGATIVE Urine Bilirubin NEGATIVE Urine Urobilinogen 0.2 (NORMAL) Ur Leukocyte Esterase MODERATE H Urine RBC TNTC H Urine WBC >25 H Ur Squamous Epith Cells FEW Squamous Urine Bacteria Many H Ur Microscopic Review INDICATED Urine Culture Comments INDICATED PD Medical Decision Making - ED course Complexity details: reviewed results, re-evaluated patient, considered differential, d/w patient ED course: Patient is well-appearing, nontoxic. Afebrile. No hypoxia. No respiratory distress. Does appear to have a UTI and we will place her on cephalexin for this. She was given a dose of ceftriaxone IM here. No evidence of sepsis, pyelonephritis. Patient counseled regarding signs and symptoms for which I believe and urgent re-evaluation would be necessary. Patient with good understanding of and agreement to plan and is comfortable going home at this time This document was made in part using voice recognition software. While efforts are made to proofread this document, sound alike and grammatical errors may occur. Departure - Departure Disposition: Home, Self Care Clinical Impression: UTI (urinary tract infection) Qualifiers: Urinary tract infection type: acute cystitis Hematuria presence: without hematuria Qualified Code(s): N30.00 - Acute cystitis without hematuria Condition: Good Instructions: ED UTI Cystitis Female Follow-Up: Cally Gamboa ARNP [Primary Care Provider] - Within 1 week Prescriptions: cephALEXin [Keflex] 500 mg PO Q6H #20 cap Comments: Your prescription was sent to [facility] in [place]. Please take all antibiotics until gone. You were given a dose of intramuscular Rocephin here tonight. Please return if you worsen. Forms: PCP List Discharge Date/Time: 05/23/23 19:07
[2023-05-23 15:45] LABS: ALBUMIN 3.7 g/dL (3.2-5.5)
[2023-05-23 15:55] LABS: BILIRUBIN,TOTAL 0.3 mg/dL (0.2-1.0); POTASSIUM 3.9 mmol/L (3.5-4.5); TOTAL PROTEIN 7.3 g/dL (6.4-8.9)
[2023-05-23 17:25] LABS: BILIRUBIN,URINE NEGATIVE (NEGATIVE); GLUCOSE, URINE (UA) NEGATIVE (NEGATIVE); KETONES,URINE (UA) NEGATIVE (NEGATIVE); LEUKOCYTE ESTERASE, URINE MODERATE (NEGATIVE); NITRITE,URINE NEGATIVE (NEGATIVE); OCCULT BLOOD,URINE MODERATE (NEGATIVE); PH,URINE 5.5 PH (5.0-7.5); PROTEIN,URINE NEGATIVE (NEGATIVE); UROBILINOGEN,URINE 0.2 (NORMAL) E.U./dL (NORMAL)
[2023-05-23 17:26] LABS: CLARITY,URINE CLOUDY (CLEAR)
[2023-05-23 17:34] LABS: BACTERIA,URINE Many /HPF (None Seen); RBC,URINE TNTC /HPF (0-5); SQUAMOUS EPITHELIAL CELL,UR FEW Squamous (<= Few); WBC,URINE >25 /HPF (0-5)
[2023-05-23] MEDS ORDERED: LIDOCAINE 1% 2 ML VIAL MC ONE (18:16)
[2023-05-23] MEDS ORDERED: cefTRIAXone 1 GM VIAL IM STA (18:16)
[2023-05-23 18:18] VITALS: BP 140/66; O2SAT 94
== END 2023-05-23 19:07 | disposition home or self-care (01) ==
LOC: EDUNIT# → ED 13:55
DX: N30.00 Acute cystitis without hematuria (principal); Z66 Do not resuscitate
CPT/HCPCS: 36415; 51701; 80053; 81001; 81003; 83690; 85025; 87077; 87086; 87181; 99283; 99284

== ENCOUNTER 2023-05-23 19:10 | Outpatient (CLI) | payer MEDICARE, BC | END 2023-05-23 19:11 | disposition home or self-care (01) | LOC: EMS 19:10 | PROVIDERS: ATTEND Emergency Medicine | DX: E66.01 Morbid (severe) obesity due to excess calories (principal); Z74.01 Bed confinement status; Z99.81 Dependence on supplemental oxygen; Z68.42 Body mass index [BMI] 45.0-49.9, adult; I50.9 Heart failure, unspecified; J44.9 Chronic obstructive pulmonary disease, unspecified; R53.1 Weakness | CPT/HCPCS: A0425; A0429 ==

== ENCOUNTER 2023-06-07 23:06 | Outpatient (CLI) | payer MEDICARE, BC | END 2023-06-07 23:59 | disposition EMS.NT | LOC: EMS 23:06 | DX: R05.9 Cough, unspecified (principal); R42 Dizziness and giddiness; R09.02 Hypoxemia; R50.9 Fever, unspecified; Z99.81 Dependence on supplemental oxygen ==

== ENCOUNTER 2023-06-09 11:33 | Outpatient (CLI) | payer MEDICARE, BC | END 2023-06-09 11:34 | disposition critical access hospital (66) | LOC: EMS 11:33 | DX: R53.83 Other fatigue (principal); R09.89 Other specified symptoms and signs involving the circulatory and respiratory systems; R53.1 Weakness; R00.1 Bradycardia, unspecified; I44.0 Atrioventricular block, first degree; I95.9 Hypotension, unspecified | CPT/HCPCS: A0425; A0427 ==

== ENCOUNTER 2023-06-09 11:46 | Inpatient (IN) | payer MEDICARE, BC ==
[2023-06-09] MEDS ORDERED: SODIUM CHLORIDE 0.9% 1,000 ML IV STA (12:00)
--- NOTE | 2023-06-09 12:04 | ED Physician Documentation ---
History of Present Illness - Stated complaint Stated Complaint: HYPOTENSION/LETHARGIC - Additonal information Additional information: 82-year-old female was brought to the emergency department when being found by her caregivers to be lethargic. The patient completed Keflex for urinary tract infection about 2 to 3 days ago. EMS found the patient to be alert and oriented though lethargic to respond. She had initial blood pressure of 88 systolic. Blood sugar was 128. On presentation to the emergency department patient has an EKG which shows a sinus bradycardia heart rate in the 50s first-degree AV block. Her initial blood pressure is 111/40 she is alert and oriented and answers all questions appropriately but appears sleepy and lethargic. Patient does have a history of hypertension, COPD, CHF. Also recently diagnosed with recurrent right breast cancer. Pending further evaluation with oncology. Last hospitalized here at [facility] in January of this year at that time she indicated that she wanted to be a full code but no intubation. Patient continues to request that. 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: Breast cancer : Frequency HEENT: Chronic vision loss Psych: None Musculoskeletal: Osteoarthritis, Fibromyalgia, Chronic back pain, Other Derm: Rosacea - Past Surgical History Past Surgical History: Yes General: Cholecystectomy, Appendectomy, Colonoscopy /FURNACE BUILDER: Hysterectomy, Oophrectomy, Other HEENT: Cataracts Derm: Skin cancer surgery - Present Medications Home Medications: Ambulatory Orders Medication Instructions Recorded Confirmed Omeprazole 20 mg PO BID 04/27/14 01/04/23 Aspirin [Aspir-Low] 81 mg PO DAILY 09/25/16 01/04/23 HYDROcodone/ACET 7.5/325 [[place] 1 tab PO BID PRN 10/09/21 01/04/23 7.5/325] carvediloL [Coreg] 12.5 mg PO BID 10/09/21 01/04/23 Amitriptyline HCl 50 mg PO QPM 04/03/22 01/04/23 Atorvastatin [Lipitor] 20 mg PO QPM 04/03/22 01/04/23 Furosemide [Lasix] 40 mg PO 1200 04/03/22 01/04/23 Furosemide [Lasix] 60 mg PO QDBREAKFAST 04/03/22 01/04/23 Pregabalin 50 mg PO TID 06/02/22 01/04/23 Carboxymethylcellulose 1% Opht 1 drops EACHEYE PRN PRN ml 06/10/22 01/04/23 [Refresh 1% Ophth Drops] Losartan [Cozaar] 25 mg PO DAILY #15 tab 06/10/22 01/04/23 Zinc Oxide 20% Oint [Zinc Oxide] 1 applic TOP PRN PRN each 06/10/22 01/04/23 Acetaminophen [Tylenol Arthritis] 650 mg PO Q8HR PRN 01/04/23 01/04/23 Calcium Citrate/Vitamin D3 500 mg PO DAILY 01/04/23 01/04/23 [Calcium Cit 200-Vit D3 250 Tab] Multivitamin/Iron/Folic Acid 1 tab PO DAILY 01/04/23 01/04/23 [Centrum Women Tablet] Ubidecarenone/Vit E Acet [Co Q-10 100 mg PO DAILY 01/04/23 01/04/23 100 mg Softgel] methocarbamoL [Methocarbamol] 750 mg PO 1-2XD PRN 01/04/23 01/04/23 Potassium Chloride [Micro-K] 30 meq PO DAILY #90 cap 01/14/23 acetaZOLAMIDE [Diamox] 250 mg PO DAILY #14 tab 01/14/23 cephALEXin [Keflex] 500 mg PO Q6H #20 cap 05/23/23 - Allergies Allergies/Adverse Reactions: Allergies Allergy/AdvReac Type Severity Reaction Status Date / Time No Known Drug Allergies Allergy Verified 05/23/23 14:16 - Social History Does the pt smoke?: No Smoking Status: Never smoker Does the pt drink ETOH?: No Does the pt have substance abuse?: Yes - Immunizations Immunizations are current?: Yes - POLST Patient has POLST: No POLST Status: DNR PD ED PE NORMAL - General General: Alert and oriented X 3, No acute distress (lethargic) - Cardiac Cardiac: RRR, No murmur - Respiratory Respiratory: No respiratory distress. 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 Eye Opening: Spontaneous Motor: Obeys Commands Verbal: Oriented GCS Score: 15 Results - Vitals Vitals: Vital Signs - 24 hr 06/09/23 06/09/23 06/09/23 11:59 12:18 12:48 Temperature 36.2 C L Heart Rate 51 L 59 L 53 L Heart Rate [ Monitoring electrodes] Respiratory 18 17 Rate Blood Pressure 111/40 L Blood Pressure [Left] O2 Saturation 98 95 If not protocol 4 : Oxygen Flow, liters/minute 06/09/23 06/09/23 06/09/23 13:08 13:12 13:40 Temperature Heart Rate 51 L 52 L 51 L Heart Rate [ Monitoring electrodes] Respiratory 19 18 Rate Blood Pressure 102/70 94/58 L 102/43 L Blood Pressure [Left] O2 Saturation 100 100 97 If not protocol : Oxygen Flow, liters/minute 06/09/23 06/09/23 06/09/23 14:20 15:18 15:47 Temperature Heart Rate 51 L 53 L 56 L Heart Rate [ Monitoring electrodes] Respiratory 19 19 Rate Blood Pressure 115/79 125/88 H Blood Pressure [Left] O2 Saturation 97 100 If not protocol : Oxygen Flow, liters/minute 06/09/23 06/09/23 06/09/23 16:06 16:45 17:13 Temperature Heart Rate 54 L 51 L 50 L Heart Rate [ Monitoring electrodes] Respiratory 19 19 Rate Blood Pressure 119/105 H 121/105 H Blood Pressure [Left] O2 Saturation 100 100 If not protocol : Oxygen Flow, liters/minute 06/09/23 06/09/23 06/09/23 17:40 17:45 19:00 Temperature 36.2 C L Heart Rate 50 L Heart Rate [ Monitoring electrodes] Respiratory 20 18 Rate Blood Pressure 93/72 Blood Pressure [Left] O2 Saturation 100 If not protocol : Oxygen Flow, liters/minute 06/09/23 06/09/23 06/09/23 19:26 19:30 19:34 Temperature 35.6 C L Heart Rate 66 49 L Heart Rate [ Monitoring electrodes] Respiratory 18 14 15 Rate Blood Pressure 93/72 Blood Pressure 93/72 [Left] O2 Saturation 100 100 If not protocol : Oxygen Flow, liters/minute 06/09/23 06/09/23 06/09/23 19:52 20:26 20:44 Temperature 36 C L 36.1 C L 36.1 C L Heart Rate Heart Rate [ 80 89 50 L Monitoring electrodes] Respiratory 15 18 14 Rate Blood Pressure Blood Pressure 89/63 L 89/73 L 94/60 [Left] O2 Saturation 99 98 100 If not protocol : Oxygen Flow, liters/minute 06/09/23 06/09/23 06/09/23 21:07 21:17 21:25 Temperature 36.3 C L 36.4 C L 35.9 C L Heart Rate Heart Rate [ 60 60 50 L Monitoring electrodes] Respiratory 18 15 19 Rate Blood Pressure Blood Pressure 116/80 110/79 116/80 [Left] O2 Saturation 98 99 100 If not protocol : Oxygen Flow, liters/minute Oxygen O2 Source [Without Activity] Nasal cannula O2 Source [With Activity] Nasal cannula O2 Source BIPAP - EKG (time done) 1308 EKG releavant findings:: EKG personally interpreted by author of this note. Relevant findings are: Rate: Rate (enter#) (50) Rhythm: NSR Hallam: Normal Intervals: Prolonged MA. No: Prolonged QT QRS: Normal Ischemia: Normal ST segments Compare to prior EKG: Changed from prior EKG Computer interpretation: Agree with computer - Labs Labs: Microbiology 06/09/23 12:58 Occult Blood - Final Stool Laboratory Tests 06/09/23 06/09/23 06/09/23 12:20 12:30 12:30 WBC 6.9 RBC 1.94 L Hgb 5.9 L* Hct 21.3 L MCV 109.8 H MCH 30.4 MCHC 27.7 L RDW 14.4 Plt Count 108 L MPV 11.1 H Neut # (Auto) 5.6 Lymph # (Auto) 0.6 L Boyd # (Auto) 0.5 Eos # (Auto) 0.2 Baso # (Auto) 0.0 Absolute Nucleated RBC 0.00 Nucleated RBC % 0.0 Bld Gas Analysis Time 1220 Sample Site RIGHT RADIAL ABG pH 7.18 L* ABG pCO2 92 H* ABG pO2 82 ABG HCO3 33.4 H ABG Total CO2 36.2 H ABG O2 Saturation 95 ABG Oximetry Spot Check ABG Base Excess 2.8 Lester Test POSITIVE Respiration Rate O2 Delivery Device NASAL CANNULA O2 Liters/Min 5.00 FiO2 EPAP IPAP Sodium 147 H Potassium 2.9 L Chloride 121 H* Carbon Dioxide 26 Anion Gap 0.0 L BUN 22 H Creatinine 0.5 L Estimated GFR (MDRD) 118 Glucose 73 L Lactic Acid Calcium 4.9 L* Total Bilirubin 0.1 L AST 6 L ALT 8 L Alkaline Phosphatase 46 B-Natriuretic Peptide Total Protein 3.2 L Albumin 1.8 L Globulin 1.4 L Albumin/Globulin Ratio 1.3 Urine Color Urine Clarity Urine pH Ur Specific [place] Urine Protein Urine Glucose (UA) Urine Ketones Urine Occult Blood Urine Nitrite Urine Bilirubin Urine Urobilinogen Ur Leukocyte Esterase Urine RBC Urine WBC Ur Squamous Epith Cells Urine Bacteria Urine Casts Urine Culture Comments Blood Type Blood Type Recheck Antibody Screen Crossmatch IS Only 06/09/23 06/09/23 06/09/23 12:30 12:30 12:30 WBC RBC Hgb Hct MCV MCH MCHC RDW Plt Count MPV Neut # (Auto) Lymph # (Auto) Boyd # (Auto) Eos # (Auto) Baso # (Auto) Absolute Nucleated RBC Nucleated RBC % Bld Gas Analysis Time Sample Site ABG pH ABG pCO2 ABG pO2 ABG HCO3 ABG Total CO2 ABG O2 Saturation ABG Oximetry Spot Check ABG Base Excess Lester Test Respiration Rate O2 Delivery Device O2 Liters/Min FiO2 EPAP IPAP Sodium Potassium Chloride Carbon Dioxide Anion Gap BUN Creatinine Estimated GFR (MDRD) Glucose Lactic Acid 0.3 L Calcium Total Bilirubin AST ALT Alkaline Phosphatase B-Natriuretic Peptide 131 H Total Protein Albumin Globulin Albumin/Globulin Ratio Urine Color Urine Clarity Urine pH Ur Specific [place] Urine Protein Urine Glucose (UA) Urine Ketones Urine Occult Blood Urine Nitrite Urine Bilirubin Urine Urobilinogen Ur Leukocyte Esterase Urine RBC Urine WBC Ur Squamous Epith Cells Urine Bacteria Urine Casts Urine Culture Comments Blood Type Blood Type Recheck O POSITIVE Antibody Screen Crossmatch IS Only 06/09/23 06/09/23 06/09/23 12:59 13:04 14:00 WBC RBC Hgb Hct MCV MCH MCHC RDW Plt Count MPV Neut # (Auto) Lymph # (Auto) Boyd # (Auto) Eos # (Auto) Baso # (Auto) Absolute Nucleated RBC Nucleated RBC % Bld Gas Analysis Time 1518 Sample Site RIGHT RADIAL ABG pH 7.16 L* ABG pCO2 91 H* ABG pO2 55 L ABG HCO3 31.8 H ABG Total CO2 34.6 H ABG O2 Saturation 87 L* ABG Oximetry Spot Check ABG Base Excess 1.2 Lester Test POSITIVE Respiration Rate 16 O2 Delivery Device BiPAP O2 Liters/Min FiO2 40.00 EPAP 5 IPAP 10 Sodium Potassium Chloride Carbon Dioxide Anion Gap BUN Creatinine Estimated GFR (MDRD) Glucose Lactic Acid Calcium Total Bilirubin AST ALT Alkaline Phosphatase B-Natriuretic Peptide Total Protein Albumin Globulin Albumin/Globulin Ratio Urine Color YELLOW Urine Clarity CLEAR Urine pH 5.5 Ur Specific [place] 1.020 Urine Protein NEGATIVE Urine Glucose (UA) NEGATIVE Urine Ketones TRACE Urine Occult Blood NEGATIVE Urine Nitrite NEGATIVE Urine Bilirubin NEGATIVE Urine Urobilinogen 0.2 (NORMAL) Ur Leukocyte Esterase NEGATIVE Urine RBC None Seen Urine WBC 0-3 Ur Squamous Epith Cells RARE Squamous Urine Bacteria Rare Urine Casts 3-5 Hyaline Casts Urine Culture Comments NOT INDICATED Blood Type O POSITIVE Blood Type Recheck Antibody Screen NEGATIVE Crossmatch IS Only See Detail 06/09/23 06/09/23 16:30 18:30 WBC RBC Hgb Hct MCV MCH MCHC RDW Plt Count MPV Neut # (Auto) Lymph # (Auto) Boyd # (Auto) Eos # (Auto) Baso # (Auto) Absolute Nucleated RBC Nucleated RBC % Bld Gas Analysis Time 1642 1838 Sample Site RIGHT RADIAL LEFT RADIAL ABG pH 7.23 L 7.26 L ABG pCO2 92 H* 73 H* ABG pO2 102 H 122 H ABG HCO3 37.8 H 32.3 H ABG Total CO2 40.6 H* 34.6 H ABG O2 Saturation 97 98 ABG Oximetry Spot Check 97 ABG Base Excess 7.5 H 3.7 H Lester Test POSITIVE POSITIVE Respiration Rate 16 O2 Delivery Device BiPAP BiPAP O2 Liters/Min FiO2 50.00 50.00 EPAP 5 5 IPAP 16 20 Sodium Potassium Chloride Carbon Dioxide Anion Gap BUN Creatinine Estimated GFR (MDRD) Glucose Lactic Acid Calcium Total Bilirubin AST ALT Alkaline Phosphatase B-Natriuretic Peptide Total Protein Albumin Globulin Albumin/Globulin Ratio Urine Color Urine Clarity Urine pH Ur Specific [place] Urine Protein Urine Glucose (UA) Urine Ketones Urine Occult Blood Urine Nitrite Urine Bilirubin Urine Urobilinogen Ur Leukocyte Esterase Urine RBC Urine WBC Ur Squamous Epith Cells Urine Bacteria Urine Casts Urine Culture Comments Blood Type Blood Type Recheck Antibody Screen Crossmatch IS Only - Rads (name of study) cxr Relevant Findings:: Final report received (Very low lung volumes limiting evaluation on single view portable radiograph. Possible lower lung opacities and small effusions are present. Greater on the left.) Ct chest w Relevant Findings:: Final report received (Left greater than right pulmonary consolidation suspicious for infection. Small pleural effusions are seen. Superimposed atelectasis. Very low lung volumes.) Ct abd Relevant Findings:: Final report received (No large hematoma identified in the abdomen or pelvis. In the setting of anemia also correlate with colonoscopy. Indeterminate liver and spleen lesions which may represent cysts.) PD Medical Decision Making - ED course Complexity details: reviewed old records, reviewed results, re-evaluated patient, considered differential, d/w patient ED course: 82-year-old female who resides at home but has daily caregivers presents the emergency department for evaluation of hypotension and lethargy. Past medical history most significant for COPD oxygen dependent baseline 2 to 3 L, hypertension, congestive heart failure. Seen in this emergency department about 2 weeks ago and diagnosed with a UTI. For EMS the patient was hypotensive with systolic blood pressures in the 80s. She was lethargic but alert and oriented and able to answer questions otherwise. Presentation to the emergency department she was again somnolent. EKG showed sinus rhythm with first-degree heart block rate of 50. Initial blood pressure 111/40. Patient is quite obese and has a distended abdomen but it was nontender. Patient reports that her abdomen is usually quite large. Given the somnolence and hypotension a sepsis work-up was initiated on presentation. She has some markedly abnormal lab results which include an initial hemoglobin of 5.9. Her hemoglobin was normal 2 weeks ago at 11.6. She has some mild thrombocytopenia with a platelet count of 108. An ABG was obtained and she is has hypercarbic respiratory failure. pH is 7.18 CO2 of 92. PaO2 was 82. Based on this finding the patient was placed immediately to BiPAP setting of 10/5 which is well-tolerated by the patient. Patient also has modest electrolyte derangements which include sodium of 147, potassium of 2.9, chloride 121. She has normal BUN and creatinine. Her calcium was 4.9. She was administered 1 g of IV calcium gluconate. Given the findings of anemia patient was typed and crossed and 2 units PRBCs ordered. Stool guaiac which was negative. There was brown stool in her vault. Patient's urine showed no signs of infection. Chest x-ray was difficult to interpret given significant cardiomegaly and suggested low lung volumes. Pneumonia could not be ruled out. Subsequently CT chest abdomen pelvis were completed and do show the presence of pneumonia likely contributing to her respiratory failure. I have ordered ceftriaxone and azithromycin.. She remains on BiPAP. CT of the abdomen did not show an obvious reason or cause for the anemia, no large volume of fluid within the abdomen. 1345: I spoke with Dr. Rivera the hospitalist who reports to me that he feels the patient has too many comorbid conditions and clinical instability to be admitted to [facility]. He is requesting we attempt to transfer. Patient at this time also has very poor IV access. I did attempt to place a triple-lumen catheter in her left IJ but I was unsuccessful despite multiple attempts and time at the bedside. At this point I am going to ask anesthesia services to attempt to place a central line. We will be unable to give blood products until a central line is placed. There would likely be a lengthy delay for transfer given the paucity of beds at outlying tertiary care facilities. 2115: A right IJ central venous catheter has been placed by anesthesia and is cleared for use. Patient continues to board in the emergency department pending transfer to a tertiary facility with higher level of care. Packed red blood cell infusion is ongoing. It is my understanding from [facility] that all tertiary care facilities are full and the patient will likely board in this emergency department for several days. I have spoken with the patient's power of research attorney and nephmariusz Longoria. He can be reached at [phone]. He confirms that the patient should not be intubated he feels that the patient would would consent to transfer, IV antibiotics and blood products as necessary. The patient remains on BiPAP and her most recent ED ABG shows an improving PaCO2 now into the 70s. Patient remains somnolent but arousable and following commands Patient will be signed out to my nighttime colleague to follow-up on any acute overnight events. Repeat labs are pending for the a.m. Patient also has antibiotics, and appropriate inpatient hospitalist medications already ordered. - Critical Care Time(min): 240 Time Includes: Direct patient care, Review records, Reassess patient, Document care, Coordinate care, Medical consult, Family consult for tx dec Data interpretation: Labs, ABG Procedures excluded from critical care time: Central IV Departure - Departure Disposition: 02 Transfer Acute Care Hosp Clinical Impression: Hypocalcemia Respiratory failure Qualifiers: Chronicity: acute on chronic Respiratory failure complication: hypercapnia Qualified Code(s): J96.22 - Acute and chronic respiratory failure with hypercapn ia COPD (chronic obstructive pulmonary disease) Qualifiers: COPD type: chronic bronchitis Chronic bronchitis type: unspecified Qualified Code(s): J42 - Unspecified chronic bronchitis Anemia Qualifiers: Anemia type: unspecified type Qualified Code(s): D64.9 - Anemia, unspecified Hypotension Qualifiers: Hypotension type: unspecified hypotension type Qualified Code(s): I95.9 - Hypotension, unspecified Pneumonia Qualifiers: Pneumonia type: due to unspecified organism Laterality: bilateral Lung location: unspecified part of lung Qualified Code(s): J18.9 - Pneumonia, unspecified organism Breast cancer, right breast Qualifiers: Breast location: unspecified site of breast Estrogen receptor status: unspecified Patient sex: female Qualified Code(s): C50.911 - Malignant neoplasm of unspecified site of right female breast
--- NOTE | 2023-06-09 12:14 | XRAY Report ---
PROCEDURE: Chest 1 View X-Ray INDICATIONS: Sepsis TECHNIQUE: One view of the chest was acquired. COMPARISON: 01/03/2023 FINDINGS: Surgical changes and devices: None. Lungs and pleura: Possible small effusions and mild to moderate perihilar and lower lung opacities. This is greater on the left Low lung volumes. Mediastinum: Cardiomegaly Bones and chest wall: Degenerative changes IMPRESSION: Very low lung volumes, limiting evaluation on this single view portable radiograph. Possible lower glenn ng opacities and small effusions are present, greater on the left. Consider future imaging surveillan ce to assess for resolution. Reviewed by: Christian Velazquez MD on 06/09/2023 12:13 PM PST Approved by: Christian Velazquez MD on 06/09/2023 12:13 PM PST Station ID: [id number]
[2023-06-09 12:32] LABS: ABG BASE EXCESS 2.8 mmol/L (-2.0-3.0); ABG HCO3 33.4 mmol/L (22.0-26.0); ABG OXYGEN SATURATION 95 % (94-98); ABG PO2 82 mmHg (80-100); ABG TCO2 36.2 MMOL/L (21.0-29.0); ALLEN TEST POSITIVE
[2023-06-09 12:33] LABS: ABG PCO2 92 mmHg (34-45); ABG PH 7.18 (7.35-7.45)
[2023-06-09 12:38] LABS: BASOPHILS % (AUTO) 0.1 %; EOSINOPHILS # (AUTO) 0.2 10^3/uL (0.0-0.7); EOSINOPHILS % (AUTO) 2.3 %; HCT - HEMATOCRIT 21.3 % (37.0-47.0); LYMPHOCYTES # (AUTO) 0.6 10^3/uL (1.5-3.5); MEAN CORPUSCULAR HEMOGLOBIN 30.4 pg (27.0-31.0); MEAN CORPUSCULAR HGB CONC 27.7 g/dL (32.0-36.0); MEAN CORPUSCULAR VOLUME 109.8 fL (81.0-99.0); MEAN PLATELET VOLUME 11.1 fL (7.9-10.8); MONOCYTES # (AUTO) 0.5 10^3/uL (0.0-1.0); MONOCYTES % (AUTO) 7.5 %; NEUTROPHILS # (AUTO) 5.6 10^3/uL (1.5-6.6); NEUTROPHILS % (AUTO) 80.4 %; PLT - PLATELET COUNT 108 10^3/uL (130-450); RED BLOOD COUNT 1.94 10^6/uL (4.20-5.40); RED CELL DISTRIBUTION WIDTH 14.4 % (12.0-15.0); WHITE BLOOD COUNT 6.9 x10^3/uL (4.8-10.8)
[2023-06-09 12:41] LABS: HGB - HEMOGLOBIN 5.9 g/dL (12.0-16.0)
[2023-06-09 13:08] LABS: ALBUMIN 1.8 g/dL (3.2-5.5)
[2023-06-09 13:14] LABS: ALBUMIN/GLOBULIN RATIO 1.3 (1.0-2.2); BILIRUBIN,TOTAL 0.1 mg/dL (0.2-1.0); CALCIUM 4.9 mg/dL (8.5-10.3); CREATININE 0.5 mg/dL (0.6-1.3); POTASSIUM 2.9 mmol/L (3.5-4.5); TOTAL PROTEIN 3.2 g/dL (6.4-8.9)
[2023-06-09 13:15] LABS: BILIRUBIN,URINE NEGATIVE (NEGATIVE); GLUCOSE, URINE (UA) NEGATIVE (NEGATIVE); KETONES,URINE (UA) TRACE mg/dL (NEGATIVE); LEUKOCYTE ESTERASE, URINE NEGATIVE (NEGATIVE); NITRITE,URINE NEGATIVE (NEGATIVE); OCCULT BLOOD,URINE NEGATIVE (NEGATIVE); PH,URINE 5.5 PH (5.0-7.5); PROTEIN,URINE NEGATIVE (NEGATIVE); UROBILINOGEN,URINE 0.2 (NORMAL) E.U./dL (NORMAL)
[2023-06-09] MEDS ORDERED: POTASSIUM BICARB 25 MEQ TABLET PO STA (13:16)
[2023-06-09] MEDS ORDERED: CALCIUM GLUC 1,000MG/50ML-NACL 1,000 MG/50 ML BAG IV STA (13:16)
[2023-06-09 13:26] LABS: BACTERIA,URINE Rare /HPF (None Seen); CLARITY,URINE CLEAR (CLEAR); RBC,URINE None Seen /HPF (0-5); SQUAMOUS EPITHELIAL CELL,UR RARE Squamous (<= Few); WBC,URINE 0-3 /HPF (0-5)
[2023-06-09 13:27] LABS: CASTS, URINE 3-5 Hyaline Casts /LPF
[2023-06-09 14:18] LABS: ABG BASE EXCESS 1.2 mmol/L (-2.0-3.0); ABG HCO3 31.8 mmol/L (22.0-26.0); ABG PO2 55 mmHg (80-100); ABG TCO2 34.6 MMOL/L (21.0-29.0)
[2023-06-09 14:19] LABS: ABG RESPIRATORY RATE 16 b/min; ALLEN TEST POSITIVE
[2023-06-09 14:22] LABS: ABG OXYGEN SATURATION 87 % (94-98); ABG PCO2 91 mmHg (34-45); ABG PH 7.16 (7.35-7.45)
--- NOTE | 2023-06-09 16:18 | CT Report ---
PROCEDURE: CHEST W INDICATIONS: anemia; COPDl hypoxia CONTRAST: 100ml omni 300 TECHNIQUE: After the administration of intravenous contrast, 1 mm axial images were acquired from the pulmonary apices through the posterior costophrenic angles. Axial 5 mm soft tissue kernel reconstructions were performed as well as 8 mm axial MIP and coronal and sagittal 5 mm reformations. For radiation dose reduction, the following was used: automated exposure control, adjustment of mA and/or kV according to patient size. COMPARISON: Same-day radiograph FINDINGS: Image quality: Their is artifact due to arms at side position. Lungs and pleura:Low lung volumes. There is dense consolidation in the left lower lobe. Milder opacit ies also seen bilaterally. There are small pleural effusions. The lung apices are excluded from the f [id number]. Mediastinum, heart, and esophagus: Cardiomegaly. No hiatal hernia. Lipomatous hypertrophy of the inte ratrial septum. Imaging was obtained during expiratory view. There may be tracheomalacia. No patholog ic adenopathy by size criteria. Chest wall and thyroid: Right axillary postsurgical changes. Asymmetric tissue seen in the right tio st. This is better evaluated by recent mammography Upper abdomen: Separately dictated Bones: Degenerative changes, no acute or suspicious abnormality. IMPRESSION: Left greater than right pulmonary consolidations, suspicious for infection. Small pleural effusions a lso seen. There is superimposed atelectasis. Very low lung volumes. Consider future imaging surveilla nce to assess for resolution. Other findings as above. Abdominal findings are separately dictated. Reviewed by: Christian Velazquez MD on 06/09/2023 4:17 PM PST Approved by: Christian Velazquez MD on 06/09/2023 4:17 PM PST Station ID: [id number]
[2023-06-09] MEDS ORDERED: cefTRIAXone 1 GM in SODIUM CHLORIDE 0.9% MINIBAG 100 ML IV STA (16:21)
[2023-06-09] MEDS ORDERED: AZITHROMYCIN INJ 500 MG in SODIUM CHLORIDE 0.9% 250 ML IV STA (16:21)
--- NOTE | 2023-06-09 16:24 | CT Report ---
PROCEDURE: ABDOMEN/PELVIS W INDICATIONS: acute anemia CONTRAST: 100ml omni 300 TECHNIQUE: After the administration of IV contrast, 5 mm thick sections acquired from the diaphragms to the symp hysis. 5 mm thick coronal and sagittal reformats were acquired. For radiation dose reduction, the f ollowing was used: automated exposure control, adjustment of mA and/or kV according to patient size. COMPARISON: Pelvis CT 05/13/2022 FINDINGS: Image quality: There is artifact from arms at side position. Lower chest: Poorly dictated Solid organs: There are small hypoattenuating lesions that are indeterminate, possibly cysts. Density cannot be evaluated due to artifact. Cholecystectomy clips. Moderate pancreatic parenchymal atrophy. No pathologic dilation of the biliary system or pancreatic duct. Indeterminate 1.7 cm splenic lesion is also present. Adrenals are unremarkable. Bilateral cortical thinning of the kidneys. No hydronephrosis. Vessels and lymph nodes: Main portal vein is patent. No abdominal aortic aneurysm. Moderately enlarge d portal caval lymph node with a short axis diameter of 2 cm. Bowel and peritoneum: No evidence of small bowel obstruction. Colonic diverticula. The lateral region s of the abdomen are not well seen due to limited [id number] on this CT. No drainable fluid collec tion. Body wall: Large ventral hernia containing most of the bowel and peritoneal cavity. Pelvis: Bladder with Adler in place, not well evaluated due to underdistention. Uterus is absent. Bones: Degenerative changes, advanced. No acute findings. IMPRESSION: No large hematoma identified in the abdomen or pelvis. The [id number] is limited at the lateral as pect of the abdomen. In the setting of anemia, consider also correlation with colonoscopy. Indeterminate liver and spleen lesions, which may represent cysts, unable to evaluate further on this CT due to artifact. There is also moderately enlarged portal caval lymph node. Consider nonemergent follow-up abdominal MRI or liver protocol CT. Other findings as above Reviewed by: Christian Velazquez MD on 06/09/2023 4:23 PM PST Approved by: Christian Velazquez MD on 06/09/2023 4:23 PM PST Station ID: [id number]
[2023-06-09 16:41] LABS: ABG PH 7.23 (7.35-7.45); ABG PO2 102 mmHg (80-100)
[2023-06-09 16:42] LABS: ABG BASE EXCESS 7.5 mmol/L (-2.0-3.0); ABG HCO3 37.8 mmol/L (22.0-26.0); ABG OXYGEN SATURATION 97 % (94-98); ABG SATURATION PULSE OXIMETRY% 97 %; ALLEN TEST POSITIVE
[2023-06-09 16:43] LABS: ABG RESPIRATORY RATE 16 b/min
[2023-06-09 16:45] LABS: ABG PCO2 92 mmHg (34-45); ABG TCO2 40.6 MMOL/L (21.0-29.0)
--- NOTE | 2023-06-09 17:46 | CONSULTATION NOTE ---
Consultation Report: Presented to ER to assist with CVL placement from earlier request. Pt with RT discussing biPap. After introductions, I explained that i was there to place a large IV in her neck to assist with care moving forward. The patient refused line placement, stating she "already signed a consent and they already tried". I explained it was at the recommendation of the ER provider, pt refusal remains.
[2023-06-09] MEDS ORDERED: DEXTROSE 5%-0.45% NACL 1,000 ML IV STA (18:22)
[2023-06-09 18:37] LABS: ABG BASE EXCESS 3.7 mmol/L (-2.0-3.0); ABG HCO3 32.3 mmol/L (22.0-26.0); ABG OXYGEN SATURATION 98 % (94-98); ABG PH 7.26 (7.35-7.45); ABG PO2 122 mmHg (80-100); ABG TCO2 34.6 MMOL/L (21.0-29.0); ALLEN TEST POSITIVE
[2023-06-09] MEDS ORDERED: iohexoL-300 100 ML VIAL IVP ONE (18:38)
[2023-06-09 18:40] LABS: ABG PCO2 73 mmHg (34-45)
--- NOTE | 2023-06-09 18:43 | CONSULTATION NOTE ---
Referring Provider Consult Date: 06/09/23 Chief Complaint - Chief Complaint Chief Complaint: Acute hypercapnic respiratory failure History of Present Illness - History of Present Illness HPI Comment/Other: Patient is an 82-year-old female with a past medical history of obesity hypoventilation syndrome, heart failure with preserved ejection fraction, paroxysmal atrial fibrillation, morbid obesity, who presented to the ED after she was found to be lethargic by her caregivers. In the ED an ABG was performed and she was noted to be extremely hypercarbic with a respiratory acidosis. Patient was started on BiPAP and attempt to reduce her PCO2 and improve her acid-base status. During my evaluation she was on maximum BiPAP. She initially did not want to be intubated however upon further questioning patient stated that she would be open to intubation but would not want to remain long-term on a ventilator. Patient also was recently diagnosed with right-sided breast cancer and has a follow-up consultation with oncology next week. Her labs did show pancytopenia. She was given 2 units of packed red blood cells. There has been no evidence of bleeding despite a hemoglobin of 5.9 down from 11.6 on 05/23. Patient was extensively discussed with ED provider. Given her high risk for respiratory decline and comorbidities, they have graciously agreed to transfer the patient to higher level of care. In the meantime we will try to optimize her condition. History - Past Medical History Cardiovascular: reports: Hypertension, High cholesterol, Coronary artery disease, Valve disorder, Other Respiratory: reports: Shortness of breath, Sleep apnea, CPAP use Neuro: reports: Peripheral neuropathy Endocrine/Autoimmune: reports: Other GI: reports: GERD, Other IT SOFTWARE DEVELOPER: reports: Breast cancer : reports: Frequency HEENT: reports: Chronic vision loss Psych: reports: None Musculoskeletal: reports: Osteoarthritis, Fibromyalgia, Chronic back pain, Other Derm: reports: Rosacea MRSA Hx?: No - Past Surgical History General: reports: Cholecystectomy, Appendectomy, Colonoscopy /IT SOFTWARE DEVELOPER: reports: Hysterectomy, Oophrectomy, Other HEENT: reports: Cataracts Derm: reports: Skin cancer surgery - Family & Social History Family History: Mother: , Father: Family History Comment/Other: Father of heart disease at the age of 50. Mom of old age at 84 but had high blood pressure, diabetes, Parkinson's disease. 1 brother of unknown causes. 1 sister alive but very ill with unknown causes. 2 children described as completely healthy without any medical illnesses. Living Situation: Alone, With caregiver(s) Social History Notes: [place] has been [place] for almost 16 years[place] No history of alcohol or substance abuse per her friend and neighbor Adriana. Patient confabulates her social history at times - Substance History Use: Uses substance without health or social issues: NONE - POLST Patient has POLST: No POLST Status: DNR Meds/Allgy - Home Medications Home Medications: Ambulatory Orders Medication Instructions Recorded Confirmed Omeprazole 20 mg PO BID 04/27/14 01/04/23 Aspirin [Aspir-Low] 81 mg PO DAILY 09/25/16 01/04/23 HYDROcodone/ACET 7.5/325 [[place] 1 tab PO BID PRN 10/09/21 01/04/23 7.5/325] carvediloL [Coreg] 12.5 mg PO BID 10/09/21 01/04/23 Amitriptyline HCl 50 mg PO QPM 04/03/22 01/04/23 Atorvastatin [Lipitor] 20 mg PO QPM 04/03/22 01/04/23 Furosemide [Lasix] 40 mg PO 1200 04/03/22 01/04/23 Furosemide [Lasix] 60 mg PO QDBREAKFAST 04/03/22 01/04/23 Pregabalin 50 mg PO TID 06/02/22 01/04/23 Carboxymethylcellulose 1% Opht 1 drops EACHEYE PRN PRN ml 06/10/22 01/04/23 [Refresh 1% Ophth Drops] Losartan [Cozaar] 25 mg PO DAILY #15 tab 06/10/22 01/04/23 Zinc Oxide 20% Oint [Zinc Oxide] 1 applic TOP PRN PRN each 06/10/22 01/04/23 Acetaminophen [Tylenol Arthritis] 650 mg PO Q8HR PRN 01/04/23 01/04/23 Calcium Citrate/Vitamin D3 500 mg PO DAILY 01/04/23 01/04/23 [Calcium Cit 200-Vit D3 250 Tab] Multivitamin/Iron/Folic Acid 1 tab PO DAILY 01/04/23 01/04/23 [Centrum Women Tablet] Ubidecarenone/Vit E Acet [Co Q-10 100 mg PO DAILY 01/04/23 01/04/23 100 mg Softgel] methocarbamoL [Methocarbamol] 750 mg PO 1-2XD PRN 01/04/23 01/04/23 Potassium Chloride [Micro-K] 30 meq PO DAILY #90 cap 01/14/23 acetaZOLAMIDE [Diamox] 250 mg PO DAILY #14 tab 01/14/23 cephALEXin [Keflex] 500 mg PO Q6H #20 cap 05/23/23 - Allergies Allergies/Adverse Reactions: Allergies Allergy/AdvReac Type Severity Reaction Status Date / Time No Known Drug Allergies Allergy Verified 05/23/23 14:16 Review of Systems - All Other Systems All Other Systems: reports: Reviewed and negative Exam - Vital Signs Vital Signs: Vital Signs x48h Temp Pulse Resp BP Pulse Ox O2 Flow Rate 06/09/23 17:45 36.2 C L 06/09/23 17:40 20 06/09/23 17:13 50 L 19 121/105 H 100 06/09/23 16:45 51 L 06/09/23 16:06 54 L 19 119/105 H 100 06/09/23 15:47 56 L 19 125/88 H 100 06/09/23 15:18 53 L 19 115/79 97 06/09/23 14:20 51 L 06/09/23 13:40 51 L 18 102/43 L 97 06/09/23 13:12 52 L 19 94/58 L 100 06/09/23 13:08 51 L 102/70 100 06/09/23 12:48 53 L 06/09/23 12:18 59 L 17 95 4 06/09/23 11:59 36.2 C L 51 L 18 111/40 L 98 - Physical Exam General Appearance: positive: Moderate distress, Lethargic Respiratory: negative: No respiratory distress Cardiovascular: positive: Regular rate & rhythm Abdomen: positive: Non-tender. negative: No distention, Tenderness Rectal: positive: Stool - heme NEG Skin: positive: Warm, Dry. negative: Cyanosis, Diaphoresis, Pallor Neurologic/Psychiatric: positive: Oriented x3, CN's nml (2-12) Conclusion/Plan - Problem List (1) Acute and chronic respiratory failure with hypoxia Conclusion/Plan: -- Currently on BiPAP. -- Given her comorbidities and high risk for intubation we have attempted to transfer to higher level of care however there is no difficulty and bed availability. Continue to monitor we will try to optimize her respiratory status in the meantime. -- I did discuss with her CODE STATUS and intubation. She did communicate to me that she would be open to CPR and intubation. Her concern is prolonged time on a ventilator. --Patient does have a prior history of obesity hypoventilation and uses CPAP at home. --I have started her on scheduled DuoNeb for bronchodilation. (2) Pancytopenia Conclusion/Plan: -- Exact etiology is unclear. She has had a significant drop in the last several weeks. Patient was recently diagnosed with breast cancer and has a cons ultation next week. She has not undergone any treatment. --Stool occult was negative and she has no evidence of any bleeding. --2 units of packed red blood cells were ordered in the ED. --Monitor hemoglobin every 8 hours. Transfuse if under 7. (3) Hyperchloremia Conclusion/Plan: -- Hyperchloremia with acidosis possibly due to acetazolamide use at home. We will hold her home diuretics and provide her with IV half-normal saline and repeat BMP in AM. (4) COPD (chronic obstructive pulmonary disease) Conclusion/Plan: -- Scheduled DuoNeb. --Remains on BIPAP --Monitoring her respiratory status with ABGs. Qualifiers: COPD type: chronic bronchitis Chronic bronchitis type: unspecified Qualified Code(s): J42 - Unspecified chronic bronchitis (5) Pneumonia Conclusion/Plan: --CT chest showing evidence of pneumonia. Continue azithromycin and ceftriaxone. --Blood cultures are currently pending. Qualifiers: Pneumonia type: due to unspecified organism Laterality: bilateral Lung location: unspecified part of lung Qualified Code(s): J18.9 - Pneumonia, unspecified organism (6) Congestive heart failure Conclusion/Plan: Most recent TTE showing a preserved LVEF. We will hold her Lasix and acetazolamide given her electrolyte derangements. Repeat BMP in AM. Continue BiPAP. Qualifiers: Heart failure type: unspecified Heart failure chronicity: chronic Qualified Code(s): I50.9 - Heart failure, unspecified (9) Breast cancer Conclusion/Plan: -- Patient is to follow-up with oncology next week for an initial consultation. --Patient does have indeterminant liver and splenic lesions which require further follow-up with an MRI. - Lab Results Fish Bones: 06/09/23 12:30 06/09/23 12:30 - Diagnostic Imaging Results Diagnostic Imaging Results: positive: Prelim report reviewed - Other Other Results/Comments: Critical care time 45 minutes.
--- NOTE | 2023-06-09 19:00 | ANESTHESIA PROCEDURE NOTE ---
Anesth Central Line Template - Central Line Central Line Preparation: Unable to obtain consent, Time out completed, Ultra sound used, Sterile prep and drape Central line location: Right IJ Central line type: Triple lumen Central line catheter tip site resides: Superior vena cava (SVC) Central line aftercare: Chlorhexidine disc placed (secured at 17cm, all caps aspirate and easily flush), Secured, Placement confirmed, No pneumothorax, No complications
[2023-06-09] MEDS ORDERED: ONDANSETRON 4 MG/2 ML VIAL IVP PRN (19:01)
[2023-06-09] MEDS ORDERED: ACETAMINOPHEN 500 MG TABLET PO PRN (19:01)
[2023-06-09] MEDS: IPRATROPIUM/ALBUTEROL 3 ML NEB INH SCH ×2 (19:24→23:09)
--- NOTE | 2023-06-09 19:49 | XRAY Report ---
PROCEDURE: Chest for Line Placement INDICATIONS: new R CVL TECHNIQUE: One view of the chest was acquired. COMPARISON: CXR earlier today. CT chest earlier today. FINDINGS: Patient is rotated to the right. Surgical changes and devices: Right IJ central venous line with the catheter tip projecting at the l ower third of the SVC. Right breast clips. Lungs and pleura: Mild opacity at the lower lobes. Small left pleural effusion better seen on CT. No pneumothorax. Mediastinum: Mediastinal contours appear unchanged. Heart size is normal. Bones and chest wall: No suspicious bony lesions. Overlying soft tissues appear unremarkable. IMPRESSION: Right IJ central venous line with the catheter tip projecting at the lower third of the SVC. No pneumothorax. Reviewed by: Tariq Lancaster MD on 06/09/2023 7:48 PM PST Approved by: Tariq Lancaster MD on 06/09/2023 7:48 PM [facility] Station ID: [id number]
[2023-06-09] MEDS ORDERED: POTASSIUM CHLOR 20 MEQ/100 ML 20 MEQ/100 ML BAG IV ONE (19:50)
--- NOTE | 2023-06-09 22:36 | ED Physician Documentation ---
ED Addendum - Addendum Addendum: 06/09/23 22:34 I heard from the hospitalist at [facility]. I discussed the case with the hospitalist and explained that the reason for for transfer is that the hospitalist at [facility] indicated that the patient is "too sick" for our facility. The hospitalist at [facility] says that they do not have any more services available than [facility], and thus this would be a "lateral move" (and not a transfer to higher level of care in this case for [facility]). Thus patient is not transferred there.
[2023-06-10 00:28] LABS: HCT - HEMATOCRIT 39.4 % (37.0-47.0); HGB - HEMOGLOBIN 11.6 g/dL (12.0-16.0)
[2023-06-10] MEDS ORDERED: NITROGLYCERIN 2% PASTE TOP STA (02:12)
[2023-06-10] MEDS: IPRATROPIUM/ALBUTEROL 3 ML NEB INH SCH ×5 (03:10→19:32)
[2023-06-10] MEDS ORDERED: SODIUM CHLORIDE 0.9% 1,000 ML IV ONE ×2 (04:44→06:00)
[2023-06-10] MEDS ORDERED: DEXTROSE 5%-0.45% NACL 1,000 ML IV STA (05:58)
[2023-06-10 06:52] LABS: ABG BASE EXCESS 5.6 mmol/L (-2.0-3.0); ABG HCO3 32.3 mmol/L (22.0-26.0); ABG OXYGEN SATURATION 96 % (94-98); ABG PCO2 58 mmHg (34-45); ABG PH 7.37 (7.35-7.45); ABG PO2 84 mmHg (80-100); ABG TCO2 34.1 MMOL/L (21.0-29.0)
[2023-06-10 06:53] LABS: ALLEN TEST POSITIVE
--- NOTE | 2023-06-10 07:50 | ED Physician Documentation ---
ED Addendum - Addendum Addendum: 06/10/23 07:47 Care assumed at shift change. Presenting with respiratory acidosis and pneumonia. Started on antibiotics. Patient has remained on BiPAP overnight. On my evaluation this morning she is awake, answering some questions. Knows her name and where she is. Her morning ABG appears improved in regards to her pH. Discussed with respiratory therapist James. Plan to titrate Her settings down on the BiPAP and then may trial her off of BiPAP around lunchtime. At this time she is boarding in the emergency department awaiting possible transfer. However there are extensive waiting lists in the region. I will speak with our hospitalist again this morning to see if patient can be considered for admission here at would be. Repeat labs have been ordered for the morning. As well as another chest x-ray. 06/10/23 11:14 Patient has been taken off of BiPAP by respiratory therapist and transition to a nasal cannula. Discussed with admitting hospitalist, Dr. Em who will still plan to admit to ICU for closer monitoring. Departure - Departure Disposition: 66 [facility] DC/Xfer Clinical Impression: Hypocalcemia Respiratory failure Qualifiers: Chronicity: acute on chronic Respiratory failure complication: hypercapnia Qualified Code(s): J96.22 - Acute and chronic respiratory failure with hypercapnia COPD (chronic obstructive pulmonary disease) Qualifiers: COPD type: chronic bronchitis Chronic bronchitis type: unspecified Qualified Code(s): J42 - Unspecified chronic bronchitis Anemia Qualifiers: Anemia type: unspecified type Qualified Code(s): D64.9 - Anemia, unspecified Hypotension Qualifiers: Hypotension type: unspecified hypotension type Qualified Code(s): I95.9 - Hypotension, unspecified Pneumonia Qualifiers: Pneumonia type: due to unspecified organism Laterality: bilateral Lung location: unspecified part of lung Qualified Code(s): J18.9 - Pneumonia, unspecified organism Breast cancer, right breast Qualifiers: Breast location: unspecified site of breast Estrogen receptor status: unspecified Patient sex: female Qualified Code(s): C50.911 - Malignant neoplasm of unspecified site of right female breast Condition: Fair
[2023-06-10 08:00] LABS: BASOPHILS % (AUTO) 0.3 %; EOSINOPHILS # (AUTO) 0.3 10^3/uL (0.0-0.7); EOSINOPHILS % (AUTO) 3.1 %; HCT - HEMATOCRIT 36.2 % (37.0-47.0); HGB - HEMOGLOBIN 10.9 g/dL (12.0-16.0); LYMPHOCYTES % (AUTO) 8.9 %; MEAN CORPUSCULAR HEMOGLOBIN 30.1 pg (27.0-31.0); MEAN CORPUSCULAR HGB CONC 30.1 g/dL (32.0-36.0); MEAN PLATELET VOLUME 11.8 fL (7.9-10.8); MONOCYTES # (AUTO) 0.8 10^3/uL (0.0-1.0); MONOCYTES % (AUTO) 7.5 %; NEUTROPHILS # (AUTO) 8.6 10^3/uL (1.5-6.6); NEUTROPHILS % (AUTO) 79.7 %; PLT - PLATELET COUNT 187 10^3/uL (130-450); RED BLOOD COUNT 3.62 10^6/uL (4.20-5.40); RED CELL DISTRIBUTION WIDTH 14.8 % (12.0-15.0); WHITE BLOOD COUNT 10.7 x10^3/uL (4.8-10.8)
[2023-06-10 08:04] LABS: CALCIUM, IONIZED 1.25 mmol/L (1.15-1.33); VBG PH 7.375 (7.31-7.41)
[2023-06-10 08:15] LABS: ALBUMIN 3.1 g/dL (3.2-5.5)
[2023-06-10 08:29] LABS: BILIRUBIN,TOTAL 0.4 mg/dL (0.2-1.0); CALCIUM 9.4 mg/dL (8.5-10.3); CREATININE 0.8 mg/dL (0.6-1.3); POTASSIUM 4.2 mmol/L (3.5-4.5); TOTAL PROTEIN 6.1 g/dL (6.4-8.9)
[2023-06-10] MEDS: cefTRIAXone 1 GM VIAL IVP SCH (08:48)
[2023-06-10] MEDS: AZITHROMYCIN INJ 500 MG in SODIUM CHLORIDE 0.9% 250 ML IV SCH (08:51)
[2023-06-10] MEDS ORDERED: PANTOPRAZOLE 40 MG VIAL IVP SCH (09:00)
[2023-06-10] MEDS ORDERED: cefTRIAXone 2 GM in SODIUM CHLORIDE 0.9% MINIBAG 100 ML IV SCH (09:00)
[2023-06-10] MEDS ORDERED: AZITHROMYCIN INJ 500 MG in SODIUM CHLORIDE 0.9% 250 ML IV SCH (09:00)
[2023-06-10] MEDS ORDERED: ENOXAPARIN 40 MG/0.4 ML SYRINGE SUBQ SCH (09:00)
--- NOTE | 2023-06-10 09:06 | XRAY Report ---
PROCEDURE: Chest 1 View X-Ray INDICATIONS: SOA TECHNIQUE: One view of the chest was acquired. COMPARISON: Chest x-ray/CT chest 06/09/2023 FINDINGS: Surgical changes and devices: Right-sided central venous catheter is unchanged. Clips are present ov erlying the right axilla. Lungs and pleura: Bilateral patchy and confluent pulmonary opacities as well as increased vascularit y appearing slightly more prominent. Mediastinum: Mediastinal contours appear normal. Heart size is mildly enlarged. Bones and chest wall: No suspicious bony lesions. Overlying soft tissues appear unremarkable. IMPRESSION: Overall appearance of patchy pulmonary opacities suggestive of airspace disease and/or edema slightly worse when compared to prior exam. Reviewed by: Gloria Delgado MD on 06/10/2023 9:05 AM PST Approved by: Gloria Delgado MD on 06/10/2023 9:05 AM PST Station ID: [id number]
[2023-06-10] MEDS ORDERED: ONDANSETRON ODT 4 MG TABLET TL PRN (11:39)
[2023-06-10] MEDS ORDERED: ACETAMINOPHEN 325 MG TABLET PO PRN (11:39)
[2023-06-10] MEDS ORDERED: ALBUTEROL NEB 2.5 MG/3 ML INH PRN (11:39)
[2023-06-10] MEDS ORDERED: IPRATROPIUM 0.2 MG/ML NEB INH SCH (12:00)
[2023-06-10] MEDS ORDERED: IPRATROPIUM/ALBUTEROL 3 ML NEB INH SCH (13:00)
[2023-06-10] MEDS: methylPREDNISolone SUCCINATE 40 MG/ML VIAL IVP SCH ×2 (13:19→17:49)
--- NOTE | 2023-06-10 14:09 | HISTORY & PHYSICAL EXAMINATION ---
Chief Complaint - Chief Complaint Chief Complaint: Shortness of breath History of Present Illness - Admitted From Admitted From:: ED - History Obtained From Records Reviewed: Yes History obtained from: Patient Exam Limitations: BiPAP, confusion - History of Present Illness HPI Comment/Other: Patient is an 82-year-old female the past medical history of obesity hypoventilation syndrome, heart failure with preserved ejection fraction, paroxysmal atrial fibrillation, morbid obesity who presented to the ED after she was found to be lethargic by her caregivers. She was initiated on BiPAP in the ED due to severe respiratory acidosis. Patient was also noted to be quite lethargic and confused initially. Patient was maintained on BiPAP overnight in the ED and her condition improved. She was subsequently admitted to the ICU. Of note, patient did present with a hemoglobin of 5.9. She was given 2 units of packed red blood cells which improved her hemoglobin to 11.6. She was recently diagnosed with breast cancer and has a follow-up consultation with hematology/oncology next week. Chest x-ray performed this morning did show evidence of worsening infiltrates. During her ED course, she was treated with IV azithromycin and ceftriaxone. Due to her electrolyte abnormalities she was given IV D5 and half-normal saline overnight. 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 Mom of old age at 84 but had high blood pressure, diabetes, Parkinson's dis ease. 1 brother of unknown causes. 1 sister alive but very ill with unknown causes. 2 children described as completely healthy without any medical illnesses. Living Situation: Alone, With caregiver(s) Social History Notes: She has been retired now for almost 16 years[place] No history of alcohol or substance abuse per her friend and neighbor Adriana. Patient confabulates her social history at times - Substance History Use: Uses substance without health or social issues: NONE - POLST Patient has POLST: No POLST Status: DNR Meds/Allgy - Home Medications Home Medications: Ambulatory Orders Medication Instructions Recorded Confirmed Omeprazole 20 mg PO BID 04/27/14 01/04/23 Aspirin [Aspir-Low] 81 mg PO DAILY 09/25/16 01/04/23 HYDROcodone/ACET 7.5/325 [[place] 1 tab PO BID PRN 10/09/21 01/04/23 7.5/325] carvediloL [Coreg] 12.5 mg PO BID 10/09/21 01/04/23 Amitriptyline HCl 50 mg PO QPM 04/03/22 01/04/23 Atorvastatin [Lipitor] 20 mg PO QPM 04/03/22 01/04/23 Furosemide [Lasix] 40 mg PO 1200 04/03/22 01/04/23 Furosemide [Lasix] 60 mg PO QDBREAKFAST 04/03/22 01/04/23 Pregabalin 50 mg PO TID 06/02/22 01/04/23 Carboxymethylcellulose 1% Opht 1 drops EACHEYE PRN PRN ml 06/10/22 01/04/23 [Refresh 1% Ophth Drops] Losartan [Cozaar] 25 mg PO DAILY #15 tab 06/10/22 01/04/23 Zinc Oxide 20% Oint [Zinc Oxide] 1 applic TOP PRN PRN each 06/10/22 01/04/23 Acetaminophen [Tylenol Arthritis] 650 mg PO Q8HR PRN 01/04/23 01/04/23 Calcium Citrate/Vitamin D3 500 mg PO DAILY 01/04/23 01/04/23 [Calcium Cit 200-Vit D3 250 Tab] Multivitamin/Iron/Folic Acid 1 tab PO DAILY 01/04/23 01/04/23 [Centrum Women Tablet] Ubidecarenone/Vit E Acet [Co Q-10 100 mg PO DAILY 01/04/23 01/04/23 100 mg Softgel] methocarbamoL [Methocarbamol] 750 mg PO 1-2XD PRN 01/04/23 01/04/23 Potassium Chloride [Micro-K] 30 meq PO DAILY #90 cap 01/14/23 acetaZOLAMIDE [Diamox] 250 mg PO DAILY #14 tab 01/14/23 cephALEXin [Keflex] 500 mg PO Q6H #20 cap 05/23/23 - Allergies Allergies/Adverse Reactions: Allergies Allergy/AdvReac Type Severity Reaction Status Date / Time No Known Drug Allergies Allergy Verified 05/23/23 14:16 Review of Systems - All Other Systems All Other Systems: reports: Reviewed and negative Exam - Vital Signs Vital Signs: Vital Signs x48h Temp Pulse Pulse Resp BP BP Pulse Ox 06/10/23 14:00 64 22 147/66 H 92 06/10/23 13:00 69 20 162/62 H 92 06/10/23 12:00 63 20 131/95 H 94 06/10/23 11:34 68 22 131/95 H 93 06/10/23 11:08 58 L 20 06/10/23 11:06 06/10/23 11:00 58 L 18 137/65 H 98 06/10/23 10:20 56 L 06/10/23 09:30 65 18 107/70 98 06/10/23 09:00 36.8 C 56 L 16 107/67 97 06/10/23 08:00 60 18 133/60 H 98 06/10/23 07:30 36.7 C 58 L 26 H 124/50 L 97 06/10/23 07:00 55 L 17 124/50 L 100 06/10/23 06:58 55 L 19 06/10/23 06:56 53 L 06/10/23 06:45 53 L 16 98/59 L 97 O2 Flow Rate 06/10/23 14:00 2 06/10/23 13:00 2 06/10/23 12:00 3 06/10/23 11:34 3 06/10/23 11:08 06/10/23 11:06 2 06/10/23 11:00 06/10/23 10:20 06/10/23 09:30 06/10/23 09:00 06/10/23 08:00 06/10/23 07:30 06/10/23 07:00 06/10/23 06:58 06/10/23 06:56 06/10/23 06:45 35 - Physical Exam General Appearance: positive: Moderate distress Neck: positive: No JVD, Trachea midline Respiratory: positive: Chest non-tender. negative: No respiratory distress, Breath sounds nml, Wheezes Cardiovascular: positive: Regular rate & rhythm, No murmur Abdomen: positive: Non-tender, No organomegaly. negative: No distention Skin: positive: Color nml, Warm, Dry Extremities: positive: Pedal edema Neurologic/Psychiatric: positive: Disoriented to place, Disoriented to time. negative: Disoriented to person Sepsis Event Note (H) - Evaluation Current Stage of Sepsis: Ruled out Conclusion/Plan - Problem List (1) Acute and chronic respiratory failure with hypoxia Conclusion/Plan: -- Currently on BiPAP. Attemping to wean. -- ABG shown improvement on BiPAP therefore admitted to the ICU. -- I did discuss with her CODE STATUS and intubation. She did communicate to me that she would be open to CPR and intubation. Her concern is prolonged time on a ventilator. --Patient does have a prior history of obesity hypoventilation and uses CPAP at home. --I have started her on scheduled DuoNeb for bronchodilation. (2) Pancytopenia Conclusion/Plan: -- Exact etiology is unclear. She has had a significant drop in the last several weeks. Patient was recently diagnosed with breast cancer and has a consultation next week. She has not undergone any treatment. --Stool occult was negative and she has no evidence of any bleeding. --2 units of packed red blood cells were given during her ED course --Monitor hemoglobin every 8 hours. Transfuse if under 7. --Can consider general surgery consult for EGD once her respiratory status is stable. (3) Hyperchloremia Conclusion/Plan: --Resolved after IV D5 in half normal saline. -- Hyperchloremia with acidosis possibly due to acetazolamide use at home. This is currently being held. (4) COPD (chronic obstructive pulmonary disease) Conclusion/Plan: -- Scheduled DuoNeb. --Remains on BIPAP --Monitoring her respiratory status with ABGs. --Have also initiated IV methylprednisolone. Qualifiers: COPD type: chronic bronchitis Chronic bronchitis type: unspecified Qualified Code(s): J42 - Unspecified chronic bronchitis (5) Pneumonia Conclusion/Plan: --CT chest showing evidence of pneumonia. Continue azithromycin and ceftriaxone. --Blood cultures are currently pending. Qualifiers: Pneumonia type: due to unspecified organism Laterality: bilateral Lung location: unspecified part of lung Qualified Code(s): J18.9 - Pneumonia, unspecified organism (6) Congestive heart failure Conclusion/Plan: --Most recent TTE showing a preserved LVEF. --Restart Lasix 40 mg IV BID. --Holding Diamox. Her HCO3 is chronically elevated given her obesity h ypoventilation syndrome. Qualifiers: Heart failure type: unspecified Heart failure chronicity: chronic Qualified Code(s): I50.9 - Heart failure, unspecified (7) Mobility impaired Conclusion/Plan: --PT/OT once respiratory status is stable. (8) Morbid obesity with BMI of 45.0-49.9, adult Conclusion/Plan: --Body habitus likely major contribute to her obesity hypoventilation. --NIPPV nightly. (9) Breast cancer Conclusion/Plan: -- Patient is to follow-up with oncology next week for an initial consultation. --Patient does have indeterminant liver and splenic lesions which require further follow-up with an MRI. - Lab Results Fish Bones: 06/10/23 07:23 06/10/23 07:42 - Diagnostic Imaging Results Diagnostic Imaging Results: positive: Final report reviewed Core Measures - Anticipated LOS I expect patient to be DC'd or transferred within 96 hours.: No
[2023-06-10] MEDS: SODIUM CHLORIDE FLUSH 0.9% 10 ML SYRINGE IVP PRN ×2 (14:22→17:53)
[2023-06-10] MEDS: FUROSEMIDE 40 MG/4 ML VIAL IVP SCH ×2 (14:33→21:17)
[2023-06-10 14:47] LABS: HGB - HEMOGLOBIN 11.5 g/dL (12.0-16.0)
--- NOTE | 2023-06-10 16:02 | PHARMACY PROGRESS NOTE ---
- Best Possible Medication History Admit Date and Time: 06/10/23 1139 Processed by: Pharmacy Medication History completed: Yes Patient Interview: Pt unable to participate Secondary Source(s): Caregiver, Pharmacy records, Insurance records As the person ultimately responsible for medication therapy, providers are able to order a medication from an existing home medication list in [facility] via the "Reconcile Routine" prior to Confirmation of that medication by client application support engineer. Such practice is discouraged except when the physician, in their clinical judgment, deems that a medical need exists for a medication without regard to previous use.
[2023-06-10 16:20] LABS: B. PARAPERTUSSIS- RESP PCR PAN NOT DETECTED; B. PERTUSSIS- RESP PCR PANEL NOT DETECTED; C. PNEUMONIAE- RESP PCR PANEL NOT DETECTED; CORONAVIRUS 229E-RESP PCR NOT DETECTED; CORONAVIRUS HKU1-RESP PCR NOT DETECTED; CORONAVIRUS NL63-RESP PCR NOT DETECTED; CORONAVIRUS OC43-RESP PCR NOT DETECTED; HUMAN METAPNEUMOVIRUS NOT DETECTED; INFLUENZA A- RESP PCR PANEL NOT DETECTED; INFLUENZA B - RESP PCR PANEL NOT DETECTED; M. PNEUMONIAE- RESP PCR PANEL NOT DETECTED; PARAINFLUENZA VIRUS 1 NOT DETECTED; PARAINFLUENZA VIRUS 2 NOT DETECTED; PARAINFLUENZA VIRUS 3 NOT DETECTED; PARAINFLUENZA VIRUS 4 NOT DETECTED; RHINOVIRUS/ENTEROVIRUS NOT DETECTED; RSV- RESP PCR PANEL NOT DETECTED; SARS-CoV-2 -RESP PCR PANEL NOT DETECTED
[2023-06-10] MEDS: PANTOPRAZOLE 40 MG TABLET PO SCH (17:37)
[2023-06-10] MEDS: SODIUM CHLORIDE FLUSH 0.9% 10 ML SYRINGE IVP SCH (17:52)
[2023-06-10] MEDS ORDERED: HALOPERIDOL 5 MG/ML VIAL IM ONE (19:01)
[2023-06-10] MEDS: carvediloL 12.5 MG TABLET PO SCH (20:10)
[2023-06-10] MEDS: ATORVASTATIN 10 MG TABLET PO SCH (20:10)
[2023-06-10 22:37] LABS: HCT - HEMATOCRIT 37.4 % (37.0-47.0); HGB - HEMOGLOBIN 11.4 g/dL (12.0-16.0)
[2023-06-11] MEDS: SODIUM CHLORIDE FLUSH 0.9% 10 ML SYRINGE IVP SCH ×4 (00:11→18:05)
[2023-06-11] MEDS: methylPREDNISolone SUCCINATE 40 MG/ML VIAL IVP SCH ×4 (00:11→18:02)
[2023-06-11 04:39] LABS: BASOPHILS % (AUTO) 0.2 %; HCT - HEMATOCRIT 37.2 % (37.0-47.0); HGB - HEMOGLOBIN 11.3 g/dL (12.0-16.0); LYMPHOCYTES # (AUTO) 0.5 10^3/uL (1.5-3.5); LYMPHOCYTES % (AUTO) 11.2 %; MEAN CORPUSCULAR HEMOGLOBIN 29.5 pg (27.0-31.0); MEAN CORPUSCULAR HGB CONC 30.4 g/dL (32.0-36.0); MEAN CORPUSCULAR VOLUME 97.1 fL (81.0-99.0); MONOCYTES # (AUTO) 0.1 10^3/uL (0.0-1.0); MONOCYTES % (AUTO) 1.4 %; NEUTROPHILS # (AUTO) 3.8 10^3/uL (1.5-6.6); NEUTROPHILS % (AUTO) 86.7 %; PLT - PLATELET COUNT 202 10^3/uL (130-450); RED BLOOD COUNT 3.83 10^6/uL (4.20-5.40); RED CELL DISTRIBUTION WIDTH 14.2 % (12.0-15.0); WHITE BLOOD COUNT 4.4 x10^3/uL (4.8-10.8)
[2023-06-11 04:50] LABS: ALBUMIN 3.2 g/dL (3.2-5.5); ALBUMIN/GLOBULIN RATIO 1.1 (1.0-2.2); BILIRUBIN,TOTAL 0.3 mg/dL (0.2-1.0); CALCIUM 9.5 mg/dL (8.5-10.3); CREATININE 0.8 mg/dL (0.6-1.3); POTASSIUM 3.6 mmol/L (3.5-4.5); TOTAL PROTEIN 6.2 g/dL (6.4-8.9)
[2023-06-11 05:59] LABS: CALCIUM, IONIZED 1.24 mmol/L (1.15-1.33); VBG PH 7.355 (7.31-7.41)
[2023-06-11 06:11] LABS: MAGNESIUM 1.8 mg/dL (1.7-2.3); PHOSPHORUS 2.9 mg/dL (2.5-5.0)
[2023-06-11] MEDS: IPRATROPIUM/ALBUTEROL 3 ML NEB INH SCH ×4 (06:21→17:53)
[2023-06-11 06:23] LABS: ABG PH 7.37 (7.35-7.45); ABG PO2 77 mmHg (80-100)
[2023-06-11 06:24] LABS: ABG BASE EXCESS 7.9 mmol/L (-2.0-3.0); ABG OXYGEN SATURATION 95 % (94-98); ABG TCO2 36.8 MMOL/L (21.0-29.0)
[2023-06-11 06:27] LABS: ABG PCO2 61 mmHg (34-45); ALLEN TEST POSITIVE
[2023-06-11] MEDS ORDERED: POTASSIUM CHLOR 20 MEQ/100 ML 20 MEQ/100 ML BAG IV ONE (06:47)
[2023-06-11] MEDS ORDERED: MAGNESIUM SULFATE 2 GRAM 2 GM/50 ML BAG IV ONE (06:47)
[2023-06-11] MEDS: PANTOPRAZOLE 40 MG TABLET PO SCH ×2 (07:01→18:09)
[2023-06-11] MEDS ORDERED: SODIUM CHLORIDE 0.9% 250 ML IV ONE (09:03)
[2023-06-11] MEDS: carvediloL 12.5 MG TABLET PO SCH ×2 (09:04→20:16)
[2023-06-11] MEDS: AZITHROMYCIN INJ 500 MG in SODIUM CHLORIDE 0.9% 250 ML IV SCH (09:05)
[2023-06-11] MEDS: FUROSEMIDE 40 MG/4 ML VIAL IVP SCH ×2 (09:10→22:06)
[2023-06-11] MEDS: ENOXAPARIN 40 MG/0.4 ML SYRINGE SUBQ SCH (09:12)
[2023-06-11] MEDS: cefTRIAXone 1 GM VIAL IVP SCH ×2 (09:49→10:44)
[2023-06-11] MEDS: HYDROcod/ACETAM 5/325 MG TABLET PO PRN ×2 (10:31→20:16)
[2023-06-11] MEDS ORDERED: cefTRIAXone 1 GM in SODIUM CHLORIDE 0.9% MINIBAG 100 ML IV ONE (11:00)
[2023-06-11] MEDS: SODIUM CHLORIDE FLUSH 0.9% 10 ML SYRINGE IVP PRN ×2 (11:23→12:20)
--- NOTE | 2023-06-11 11:29 | PROVIDER PROGRESS NOTE ---
Assessment/Plan - Problem List (1) Acute and chronic respiratory failure with hypoxia Assessment/Plan: (1) Acute and chronic respiratory failure with hypoxia Conclusion/Plan: -- Currently on NC. BIPAP nightly. -- I did discuss with her CODE STATUS and intubation. She did communicate to me that she would be open to CPR and intubation. Her concern is prolonged time on a ventilator. --Patient does have a prior history of obesity hypoventilation and uses CPAP at home. --I have started her on scheduled DuoNeb for bronchodilation. --Will monitor for an additional 24 hours then plan for discharge. (2) Pancytopenia Conclusion/Plan: -- Exact etiology is unclear. She has had a significant drop in the last several weeks. Patient was recently diagnosed with breast cancer and has a consultation next week. She has not undergone any treatment. --Stool occult was negative and she has no evidence of any bleeding. --2 units of packed red blood cells were given during her ED course --Monitor hemoglobin every 8 hours. Transfuse if under 7. --Can consider general surgery consult for EGD once her respiratory status is stable. This can be done as an outpatient. (3) Hyperchloremia Conclusion/Plan: --Resolved after IV D5 in half normal saline. -- Hyperchloremia with acidosis possibly due to acetazolamide use at home. This is currently being held. (4) COPD (chronic obstructive pulmonary disease) Conclusion/Plan: -- Scheduled DuoNeb. --Remains on BIPAP --Monitoring her respiratory status with ABGs. --Have also initiated IV methylprednisolone. Will switch to a prednisone taper on discharge. Qualifiers: COPD type: chronic bronchitis Chronic bronchitis type: unspecified Qualified Code(s): J42 - Unspecified chronic bronchitis (5) Pneumonia Conclusion/Plan: --CT chest showing evidence of pneumonia. Continue azithromycin and ceftriaxone. --Blood cultures are currently pending. --Will repeat a CXR today. Qualifiers: Pneumonia type: due to unspecified organism Laterality: bilateral Lung location: unspecified part of lung Qualified Code(s): J18.9 - Pneumonia, unspecified organism (6) Congestive heart failure Conclusion/Plan: --Most recent TTE showing a preserved LVEF. --Restart Lasix 40 mg IV BID. --Holding Diamox. Her HCO3 is chronically elevated given her obesity hypoventilation syndrome. Qualifiers: Heart failure type: unspecified Heart failure chronicity: chronic Qualified Code(s): I50.9 - Heart failure, unspecified (7) Mobility impaired Conclusion/Plan: --Bedbound requiring a Toma lift at baseline. (8) Morbid obesity with BMI of 45.0-49.9, adult Conclusion/Plan: --Body habitus likely major contribute to her obesity hypoventilation. --NIPPV nightly. (9) Breast cancer Conclusion/Plan: -- Patient is to follow-up with oncology next week for an initial consultation. --Patient does have indeterminant liver and splenic lesions which require further follow-up with an MRI. (4) COPD (chronic obstructive pulmonary disease) Qualifiers: COPD type: chronic bronchitis Chronic bronchitis type: unspecified Mark lified Code(s): J42 - Unspecified chronic bronchitis (5) Pneumonia Qualifiers: Pneumonia type: due to unspecified organism Laterality: bilateral Lung location: unspecified part of lung Qualified Code(s): J18.9 - Pneumonia, unspecified organism (6) Congestive heart failure Qualifiers: Heart failure type: unspecified Heart failure chronicity: chronic Qualified Code(s): I50.9 - Heart failure, unspecified - Current Meds Current Meds: Current Medications Generic Name Dose Route Start Last Admin Trade Name Freq PRN Reason Stop Dose Admin Hydrocodone Bitart/Acetaminophen 1 tab 06/10/23 11:39 06/11/23 10:31 Hydrocod/Acetam 5/325 Mg Tablet PO 1 tab Q4HR PRN Administration Pain 5 to 7 Albuterol/Ipratropium 3 ml 06/10/23 13:30 06/11/23 10:48 Ipratropium/Albuterol 3 Ml Neb INH 3 ml RTQID TAI Administration Atorvastatin Calcium 20 mg 06/10/23 21:00 06/10/23 20:10 Atorvastatin 10 Mg Tablet PO 20 mg QPM TAI Administration Carvedilol 12.5 mg 06/10/23 21:00 06/11/23 09:04 Carvedilol 12.5 Mg Tablet PO 12.5 mg BID TAI Administration Enoxaparin Sodium 40 mg 06/11/23 09:00 06/11/23 09:12 Enoxaparin 40 Mg/0.4 Ml Syringe SUBQ 40 mg DAILY TAI Administration Furosemide 40 mg 06/10/23 14:00 06/11/23 09:10 Furosemide 40 Mg/4 Ml Vial IVP 40 mg BID TAI Administration Ceftriaxone Sodium 1 gm/ 100 mls @ 200 mls/hr 06/11/23 11:00 06/11/23 11:20 Sodium Chloride IV 06/11/23 11:29 Infused ONCE ONE Infusion Methylprednisolone 40 mg 06/10/23 12:00 06/11/23 07:01 Methylprednisolone Succinate 40 Mg/Ml Vial IVP 40 mg Q6HR TAI Administration Pantoprazole Sodium 40 mg 06/10/23 17:00 06/11/23 07:01 Pantoprazole 40 Mg Tablet PO 40 mg BIDAC TAI Administration Sodium Chloride 10 ml 06/10/23 17:00 06/11/23 10:32 Sodium Chloride Flush 0.9% 10 Ml Syringe IVP 10 ml 0100,0900,1700 TAI Administration Sodium Chloride 10 ml 06/10/23 11:39 06/11/23 11:23 Sodium Chloride Flush 0.9% 10 Ml Syringe IVP 10 ml PRN PRN Administration NEEDED PER PROVIDER ORDERS - Lab Result Fish Bone Diagrams: 06/11/23 04:15 06/11/23 10:30 - Additional Planning My Orders: My Active Orders 06/10/23 11:39 Activity Orders (ICU) [RC] Q2HR Daily Weight [RC] 0600 Home CPAP/BiPAP/NPPV [RC] .ONCE IO [RC] Q1HR Initiate Bowel Care Protocol [RC] QSHIFT Initiate Bronchodialator Siddhartha [RC] .PROTOCOL Initiate Flu Vaccine Screening [RC] ONCE Initiate ICU Electrolyte Prot. [RC] .protocol Initiate Line Care Protocol [RC] .protocol Initiate Personal Care Protoco [RC] .protocol Initiate Pneumonia Vaccine Scr [RC] ONCE Initiate Progressive Mobility Protocol [RC] 0800,2000 Acetaminophen [Tylenol] 650 mg PO Q4HR PRN Albuterol 2.5 mg INH Q4HR PRN HYDROcod/ACETAM 5/325 [[place] 5/325] 1 tab PO Q4HR PRN Ondansetron Odt [Zofran Odt] 4 mg TL Q6HR PRN Sodium Chloride Flush 0.9% [Normal Saline Flush 0.9%] 10 ml IVP PRN PRN Code Status [OTHERS] Routine Condition of Patient [OTHERS] Routine DVT Prophylaxis [OTHERS] Routine 06/10/23 11:41 Oxygen Therapy [RC] .PRN Vital Signs [RC] Q1HR 06/10/23 12:00 methylPREDNISolone SUCCINATE [SOLU-Medrol (40MG VIAL)] 40 mg IVP Q6HR 06/10/23 13:30 Ipratropium/Albuterol [Duoneb] 3 ml INH RTQID 06/10/23 14:00 FUROSEMIDE INJ 40mg VIAL [LASIX INJ 40 mg VIAL] 40 mg IVP BID 06/10/23 15:23 CUL, RESPIRATORY [RM] Routine 06/10/23 Dinner Cardiac Diet [DIET] Low Sodium Diet [DIET] 06/10/23 16:56 Min Oil/Dimeth/Coconut Oil Crm [Cavilon] 1 applic TOP PRN PRN 06/10/23 17:00 Pantoprazole [Protonix] 40 mg PO BIDAC Sodium Chloride Flush 0.9% [Normal Saline Flush 0.9%] 10 ml IVP 0100,0900,1700 06/10/23 21:00 Atorvastatin [Lipitor] 20 mg PO QPM carvediloL [Coreg] 12.5 mg PO BID 06/11/23 09:00 Enoxaparin [Lovenox] 40 mg SUBQ DAILY 06/11/23 11:00 cefTRIAXone [Rocephin] 1 gm Sodium Chloride 0.9% Minibag [Normal Saline 0.9% Minibag] 100 ml IV ONCE 06/11/23 12:00 Potassium Chloride Oral Soln [Potassium Chloride] 20 meq PO ONCE ONE 06/12/23 05:00 CBC [CBC - COMP BLD CT W/AUTO DIFF] [HEME] DAILYLAB COMPREHENSIVE METABOLIC PANEL [CHEM] DAILYLAB 06/12/23 09:00 cefTRIAXone [Rocephin] 2 gm Sodium Chloride 0.9% Minibag [Normal Saline 0.9% Minibag] 100 ml IV DAILY 06/13/23 05:00 CBC [CBC - COMP BLD CT W/AUTO DIFF] [HEME] DAILYLAB COMPREHENSIVE METABOLIC PANEL [CHEM] DAILYLAB 06/14/23 05:00 CBC [CBC - COMP BLD CT W/AUTO DIFF] [HEME] DAILYLAB COMPREHENSIVE METABOLIC PANEL [CHEM] DAILYLAB Subjective - Subjective Patient Reports: Feeling Better, Resting Comfortably, No Complaints (Would like to go home today. Explained that we would like to continue monitoring given she is still quite ill with her PNA and COPD. Will repeat a CXR.) Objective Vital Signs: Vital Signs - 24 hr 06/10/23 06/10/23 06/10/23 11:34 12:00 13:00 Temperature Heart Rate 68 63 Heart Rate [ 69 Monitoring electrodes] Respiratory 22 20 20 Rate Blood Pressure 131/95 H 131/95 H Blood Pressure [Left Radial artery] Blood Pressure 162/62 H [Left] O2 Saturation 93 94 92 If not protocol 3 3 2 : Oxygen Flow, liters/minute 06/10/23 06/10/23 06/10/23 13:36 14:00 14:19 Temperature Heart Rate Heart Rate [ 73 64 Monitoring electrodes] Respiratory 22 Rate Blood Pressure Blood Pressure [Left Radial artery] Blood Pressure 163/75 H 147/66 H 147/66 H [Left] O2 Saturation 90 L 92 If not protocol 2 : Oxygen Flow, liters/minute 06/10/23 06/10/23 06/10/23 15:18 15:41 16:21 Temperature 37.2 C Heart Rate 64 Heart Rate [ Monitoring electrodes] Respiratory 22 Rate Blood Pressure Blood Pressure [Left Radial artery] Blood Pressure [Left] O2 Saturation If not protocol 2 2 : Oxygen Flow, liters/minute 06/10/23 06/10/23 06/10/23 16:22 17:00 17:06 Temperature Heart Rate 58 L Heart Rate [ 65 60 Monitoring electrodes] Respiratory 24 22 Rate Blood Pressure Blood Pressure [Left Radial artery] Blood Pressure 141/106 H 152/60 H [Left] O2 Saturation 93 99 If not protocol 2 : Oxygen Flow, liters/minute 06/10/23 06/10/23 06/10/23 19:00 19:35 20:00 Temperature 36.5 C Heart Rate 65 Heart Rate [ 66 Monitoring electrodes] Respiratory 22 23 Rate Blood Pressure Blood Pressure 163/60 H [Left Radial artery] Blood Pressure [Left] O2 Saturation 96 If not protocol 3 2 2 : Oxygen Flow, liters/minute 06/10/23 06/10/23 06/10/23 21:00 22:18 23:00 Temperature Heart Rate 63 Heart Rate [ 56 L 56 L 54 L Monitoring electrodes] Respiratory 18 18 17 Rate Blood Pressure Blood Pressure 138/42 H 133/50 H [Left Radial artery] Blood Pressure 131/86 H [Left] O2 Saturation 98 95 95 If not protocol : Oxygen Flow, liters/minute 06/10/23 06/11/23 06/11/23 23:50 00:00 01:00 Temperature 36.6 C Heart Rate 50 L Heart Rate [ 53 L 50 L Monitoring electrodes] Respiratory 13 18 Rate Blood Pressure Blood Pressure 137/55 H 126/68 [Left Radial artery] Blood Pressure [Left] O2 Saturation 97 95 If not protocol : Oxygen Flow, liters/minute 06/11/23 06/11/23 06/11/23 02:00 03:00 03:10 Temperature Heart Rate 46 L Heart Rate [ 50 L 50 L Monitoring electrodes] Respiratory 16 14 Rate Blood Pressure Blood Pressure 139/54 H 140/70 H [Left Radial artery] Blood Pressure [Left] O2 Saturation 96 96 If not protocol : Oxygen Flow, liters/minute 06/11/23 06/11/23 06/11/23 04:00 05:00 05:30 Temperature 36.7 C Heart Rate 55 L Heart Rate [ 48 L 47 L Monitoring electrodes] Respiratory 16 11 L Rate Blood Pressure Blood Pressure 136/61 H 142/54 H [Left Radial artery] Blood Pressure [Left] O2 Saturation 94 96 If not protocol : Oxygen Flow, liters/minute 06/11/23 06/11/23 06/11/23 06:00 06:20 07:00 Temperature Heart Rate 50 L Heart Rate [ 51 L 56 L Monitoring electrodes] Respiratory 19 18 15 Rate Blood Pressure Blood Pressure 147/62 H 150/59 H [Left Radial artery] Blood Pressure [Left] O2 Saturation 96 93 If not protocol 2 : Oxygen Flow, liters/minute 06/11/23 06/11/23 06/11/23 08:00 08:30 09:00 Temperature 36.4 C L Heart Rate Heart Rate [ 57 L 62 Monitoring electrodes] Respiratory 17 24 Rate Blood Pressure Blood Pressure 145/67 H 137/71 H [Left Radial artery] Blood Pressure [Left] O2 Saturation 94 93 If not protocol 2 2 2 : Oxygen Flow, liters/minute 06/11/23 06/11/23 06/11/23 10:00 10:51 11:00 Temperature Heart Rate 61 Heart Rate [ 57 L 60 Monitoring electrodes] Respiratory 18 21 20 Rate Blood Pressure Blood Pressure 139/51 H 144/69 H [Left Radial artery] Blood Pressure [Left] O2 Saturation 95 94 If not protocol 2 2 2 : Oxygen Flow, liters/minute Oxygen O2 Source [Without Activity] Nasal cannula O2 Source [With Activity] Nasal cannula O2 Source Nasal cannula I&O (Last 24 Hrs): Intake and Output Totals x24h 06/09/23 06/10/23 06/11/23 23:59 23:59 23:59 Intake Total 2099 5135 750.000 Output Total 4988 1375 Balance 2100 147 -625.000 General: Alert, Oriented x3, Cooperative, No acute distress HEENT: Atraumatic, PERRLA, EOMI Neuro: Alert, CN 2-12 Grossly Intact, Oriented Times 3 Cardiovascular: Regular rate, Normal S1, Normal S2, No murmurs Respiratory: Chest non-tender, No respiratory distress, Breath sounds nml Abdomen: Normal bowel sounds, Soft, No tenderness, No hepatospenomegaly, No masses Extremities: No clubbing, No cyanosis, No edema, Normal pulses, No tenderness/swelling - Results Results: Laboratory Results WBC 4.4 x10^3/uL (4.8-10.8) L 06/11/23 04:15 RBC 3.83 10^6/uL (4.20-5.40) L 06/11/23 04:15 Hgb 11.3 g/dL (12.0-16.0) L 06/11/23 04:15 Hct 37.2 % (37.0-47.0) 06/11/23 04:15 MCV 97.1 fL (81.0-99.0) 06/11/23 04:15 MCH 29.5 pg (27.0-31.0) 06/11/23 04:15 MCHC 30.4 g/dL (32.0-36.0) L 06/11/23 04:15 RDW 14.2 % (12.0-15.0) 06/11/23 04:15 Plt Count 202 10^3/uL (130-450) 06/11/23 04:15 MPV 12.0 fL (7.9-10.8) H 06/11/23 04:15 Neut # (Auto) 3.8 10^3/uL (1.5-6.6) 06/11/23 04:15 Lymph # (Auto) 0.5 10^3/uL (1.5-3.5) L 06/11/23 04:15 [place] # (Auto) 0.1 10^3/uL (0.0-1.0) 06/11/23 04:15 Eos # (Auto) 0.0 10^3/uL (0.0-0.7) 06/11/23 04:15 Baso # (Auto) 0.0 10^3/uL (0.0-0.1) 06/11/23 04:15 Absolute Nucleated RBC 0.00 x10^3/uL 06/11/23 04:15 Nucleated RBC % 0.0 /100WBC 06/11/23 04:15 Bld Gas Analysis Time 0620 06/11/23 06:13 Sample Site LEFT BRACHIAL 06/11/23 06:13 ABG pH 7.37 (7.35-7.45) 06/11/23 06:13 ABG pCO2 61 mmHg (34-45) H* 06/11/23 06:13 ABG pO2 77 mmHg (80-100) L 06/11/23 06:13 ABG HCO3 35.0 mmol/L (22.0-26.0) H 06/11/23 06:13 ABG Total CO2 36.8 MMOL/L (21.0-29.0) H 06/11/23 06:13 ABG O2 Saturation 95 % (94-98) 06/11/23 06:13 ABG Oximetry Spot Check 97 % 06/09/23 16:30 ABG Base Excess 7.9 mmol/L (-2.0-3.0) H 06/11/23 06:13 Lester Test POSITIVE 06/11/23 06:13 VBG pH 7.355 (7.31-7.41) 06/11/23 04:15 Ionized Calcium 1.24 mmol/L (1.15-1.33) 06/11/23 04:15 Respiration Rate 16 b/min 06/09/23 16:30 O2 Delivery Device BiPAP 06/11/23 06:13 O2 Liters/Min 5.00 LPM 06/09/23 12:20 FiO2 35.00 06/11/23 06:13 EPAP 5 cmH2O 06/11/23 06:13 IPAP 12 cmH2O 06/11/23 06:13 Sodium 142 mmol/L (135-145) 06/11/23 04:15 Potassium 3.6 mmol/L (3.5-4.5) 06/11/23 10:30 Chloride 100 mmol/L (101-111) L 06/11/23 04:15 Carbon Dioxide 37 mmol/L (21-32) H 06/11/23 04:15 Anion Gap 5.0 (6-13) L 06/11/23 04:15 BUN 27 mg/dL (6-20) H 06/11/23 04:15 Creatinine 0.8 mg/dL (0.6-1.3) 06/11/23 04:15 Estimated GFR (MDRD) 69 (>89) L 06/11/23 04:15 Glucose 166 mg/dL (74-104) H 06/11/23 04:15 Lactic Acid 0.3 mmol/L (0.5-2.2) L 06/09/23 12:30 Calcium 9.5 mg/dL (8.5-10.3) 06/11/23 04:15 Phosphorus 2.9 mg/dL (2.5-5.0) 06/11/23 04:15 Magnesium 2.2 mg/dL (1.7-2.3) 06/11/23 10:30 Total Bilirubin 0.3 mg/dL (0.2-1.0) 06/11/23 04:15 AST 12 IU/L (10-42) 06/11/23 04:15 ALT 13 IU/L (10-60) 06/11/23 04:15 Alkaline Phosphatase 73 IU/L (42-121) 06/11/23 04:15 B-Natriuretic Peptide 131 pg/mL (5-100) H 06/09/23 12:30 Total Protein 6.2 g/dL (6.4-8.9) L 06/11/23 04:15 Albumin 3.2 g/dL (3.2-5.5) 06/11/23 04:15 Globulin 3.0 g/dL (2.1-4.2) 06/11/23 04:15 Albumin/Globulin Ratio 1.1 (1.0-2.2) 06/11/23 04:15 Lipase 16 U/L (11-82) 06/10/23 07:42 Urine Color YELLOW 06/09/23 12:59 Urine Clarity CLEAR (CLEAR) 06/09/23 12:59 Urine pH 5.5 PH (5.0-7.5) 06/09/23 12:59 Ur Specific [place] 1.020 (1.002-1.030) 06/09/23 12:59 Urine Protein NEGATIVE mg/dL (NEGATIVE) 06/09/23 12:59 Urine Glucose (UA) NEGATIVE mg/dL (NEGATIVE) 06/09/23 12:59 Urine Ketones TRACE mg/dL (NEGATIVE) 06/09/23 12:59 Urine Occult Blood NEGATIVE (NEGATIVE) 06/09/23 12:59 Urine Nitrite NEGATIVE (NEGATIVE) 06/09/23 12:59 Urine Bilirubin NEGATIVE (NEGATIVE) 06/09/23 12:59 Urine Urobilinogen 0.2 (NORMAL) E.U./dL (NORMAL) 06/09/23 12:59 Ur Leukocyte Esterase NEGATIVE (NEGATIVE) 06/09/23 12:59 Urine RBC None Seen /HPF (0-5) 06/09/23 12:59 Urine WBC 0-3 /HPF (0-5) 06/09/23 12:59 Ur Squamous Epith Cells RARE Squamous (<= Few) 06/09/23 12:59 Urine Bacteria Rare /HPF (None Seen) 06/09/23 12:59 Urine Casts 3-5 Hyaline Casts /LPF 06/09/23 12:59 Urine Culture Comments NOT INDICATED 06/09/23 12:59 Nasal Adenovirus (PCR) NOT DETECTED 06/10/23 14:40 Nasal B. parapertussis DNA (PCR) NOT DETECTED 06/10/23 14:40 Nasal Coronavir 229E PCR NOT DETECTED 06/10/23 14:40 Nasal Coronavir HKU1 PCR NOT DETECTED 06/10/23 14:40 Nasal Coronavir NL63 PCR NOT DETECTED 06/10/23 14:40 Nasal Coronavir OC43 PCR NOT DETECTED 06/10/23 14:40 Nasal Enterovir/Rhinovir PCR NOT DETECTED 06/10/23 14:40 Nasal Influenza B PCR NOT DETECTED 06/10/23 14:40 Nasal Influenza A PCR NOT DETECTED 06/10/23 14:40 Nasal Parainfluen 1 PCR NOT DETECTED 06/10/23 14:40 Nasal Parainfluen 2 PCR NOT DETECTED 06/10/23 14:40 Nasal Parainfluen 3 PCR NOT DETECTED 06/10/23 14:40 Nasal Parainfluen 4 PCR NOT DETECTED 06/10/23 14:40 Nasal RSV (PCR) NOT DETECTED 06/10/23 14:40 Nasal Screen MRSA (PCR) NEGATIVE (NEGATIVE) 06/10/23 13:00 Nasal B.pertussis DNA PCR NOT DETECTED 06/10/23 14:40 Nasal C.pneumoniae (PCR) NOT DETECTED 06/10/23 14:40 Ankit Human Metapneumo PCR NOT DETECTED 06/10/23 14:40 Nasal M.pneumoniae (PCR) NOT DETECTED 06/10/23 14:40 Nasal SARS-CoV-2 (PCR) NOT DETECTED 06/10/23 14:40 Blood Type O POSITIVE 06/09/23 13:04 Blood Type Recheck O POSITIVE 06/09/23 12:30 Antibody Screen NEGATIVE 06/09/23 13:04 Crossmatch IS Only See Detail 06/09/23 13:04 - Procedures Procedures: Procedures CATARAC PHACOEMULS/ASPIR (04/27/14) INSERT LENS AT CATAR EXT (04/27/14) INSERTION OF INFUSION DEV INTO SUP VENA CAVA, PERC APPROACH (06/02/22) REPLACEMENT OF LEFT LENS WITH SYNTH SUB, PERC APPROACH (09/25/16) Sepsis Event Note (H) - Evaluation Current Stage of Sepsis: Ruled out ABX Reporting Has patient been on IV antibiotics over the past 48 hours?: Yes Current Medications - Current Medications Current Medications: Active Medications Generic Name Dose Route Start Last Admin Trade Name Freq PRN Reason Stop Dose Admin Acetaminophen 650 mg 06/10/23 11:39 Acetaminophen 325 Mg Tablet PO Q4HR PRN Pain 1 to 4, or Fever Hydrocodone Bitart/Acetaminophen 1 tab 06/10/23 11:39 06/11/23 10:31 Hydrocod/Acetam 5/325 Mg Tablet PO 1 tab Q4HR PRN Administration Pain 5 to 7 Albuterol 2.5 mg 06/10/23 11:39 Albuterol Neb 2.5 Mg/3 Ml INH Q4HR PRN Wheezing Albuterol/Ipratropium 3 ml 06/10/23 13:30 06/11/23 10:48 Ipratropium/Albuterol 3 Ml Neb INH 3 ml RTQID TAI Administration Atorvastatin Calcium 20 mg 06/10/23 21:00 06/10/23 20:10 Atorvastatin 10 Mg Tablet PO 20 mg QPM TAI Administration Carvedilol 12.5 mg 06/10/23 21:00 06/11/23 09:04 Carvedilol 12.5 Mg Tablet PO 12.5 mg BID TAI Administration Enoxaparin Sodium 40 mg 06/11/23 09:00 06/11/23 09:12 Enoxaparin 40 Mg/0.4 Ml Syringe SUBQ 40 mg DAILY TAI Administration Furosemide 40 mg 06/10/23 14:00 06/11/23 09:10 Furosemide 40 Mg/4 Ml Vial IVP 40 mg BID TAI Administration Ceftriaxone Sodium 2 gm/ 100 mls @ 200 mls/hr 06/12/23 09:00 Sodium Chloride IV DAILY TAI Methylprednisolone 40 mg 06/10/23 12:00 06/11/23 07:01 Methylprednisolone Succinate 40 Mg/Ml Vial IVP 40 mg Q6HR TAI Administration Mineral Oil 1 applic 06/10/23 16:56 Min Oil/Dimethicon/Coconut Oil 92 Gm Tube TOP PRN PRN Skin Care Ondansetron HCl 4 mg 06/09/23 19:01 Ondansetron 4 Mg/2 Ml Vial IVP Q6HR PRN Nausea / Vomiting Ondansetron HCl 4 mg 06/10/23 11:39 Ondansetron Odt 4 Mg Tablet TL Q6HR PRN Nausea / Vomiting Pantoprazole Sodium 40 mg 06/10/23 17:00 06/11/23 07:01 Pantoprazole 40 Mg Tablet PO 40 mg BIDAC TAI Administration Potassium Chloride 20 meq 06/11/23 12:00 Potassium Chloride 20 Meq/15 Ml Udc PO 06/11/23 12:01 ONCE ONE Protocol Sodium Chloride 10 ml 06/10/23 17:00 06/11/23 10:32 Sodium Chloride Flush 0.9% 10 Ml Syringe IVP 10 ml 0100,0900,1700 TAI Administration Sodium Chloride 10 ml 06/10/23 11:39 06/11/23 11:23 Sodium Chloride Flush 0.9% 10 Ml Syringe IVP 10 ml PRN PRN Administration NEEDED PER PROVIDER ORDERS Omeprazole 20 mg PO BID 04/27/14 HYDROcodone/ACET 7.5/325 [[place] 7.5/325] 1 tab PO BID PRN 10/09/21 carvediloL [Coreg] 12.5 mg PO BID 10/09/21 Amitriptyline HCl 50 mg PO QPM 04/03/22 Atorvastatin [Lipitor] 20 mg PO QPM 04/03/22 Furosemide [Lasix] 40 mg PO 1200 04/03/22 Furosemide [Lasix] 60 mg PO QDBREAKFAST 04/03/22 Pregabalin 75 mg PO TID 06/02/22 Multivitamin/Iron/Folic Acid [Centrum Women Tablet] 1 tab PO DAILY 01/04/23 methocarbamoL [Methocarbamol] 750 mg PO QID 01/04/23 Losartan [Cozaar] 50 mg PO DAILY 06/10/23
[2023-06-11] MEDS ORDERED: POTASSIUM CHLORIDE 20 MEQ/15 ML UDC PO ONE ×2 (12:00→18:43)
[2023-06-11] MEDS: polyethylene glycoL 3350 17 GM PACKET PO SCH (14:14)
--- NOTE | 2023-06-11 14:21 | XRAY Report ---
PROCEDURE: Chest 1 View X-Ray INDICATIONS: Follow-up on previous XR. PNA, CHF. TECHNIQUE: One view of the chest was acquired. COMPARISON: None. FINDINGS: Surgical changes and devices: There is a right IJ central line with the tip in the area of SVC. Lungs and pleura: Increased pulmonary vascularity consistent with congestive heart failure. Compared to last exam, there is improvement with decreased pulmonary edema. Left basilar opacity may be secon hiram to pleural effusion or atelectasis but infiltrate/consolidation cannot be excluded. No pneumotho rax. Mediastinum: Mediastinal contours appear normal. Heart size is moderately increased. Bones and chest wall: No suspicious bony lesions. Overlying soft tissues appear unremarkable. IMPRESSION: 1. Decreased pulmonary edema. 2. Left basilar opacity may be secondary to left pleural effusion and left basilar atelectasis but carlton perimposed pneumonia cannot be excluded. Reviewed by: Jeanine Menchaca MD on 06/11/2023 2:20 PM PST Approved by: Jeanine Menchaca MD on 06/11/2023 2:20 PM PST Station ID: [id number]
[2023-06-11] MEDS: ATORVASTATIN 10 MG TABLET PO SCH (20:17)
[2023-06-11] MEDS: MIN OIL/DIMETHICON/COCONUT OIL 92 GM TUBE TOP PRN (21:00)
[2023-06-12] MEDS: methylPREDNISolone SUCCINATE 40 MG/ML VIAL IVP SCH ×3 (00:16→11:30)
[2023-06-12] MEDS: SODIUM CHLORIDE FLUSH 0.9% 10 ML SYRINGE IVP SCH ×2 (00:59→08:56)
[2023-06-12 05:05] LABS: HCT - HEMATOCRIT 40.4 % (37.0-47.0); HGB - HEMOGLOBIN 12.1 g/dL (12.0-16.0); LYMPHOCYTES # (AUTO) 0.6 10^3/uL (1.5-3.5); LYMPHOCYTES % (AUTO) 8.6 %; MEAN CORPUSCULAR HEMOGLOBIN 28.9 pg (27.0-31.0); MEAN CORPUSCULAR VOLUME 96.7 fL (81.0-99.0); MEAN PLATELET VOLUME 11.7 fL (7.9-10.8); MONOCYTES # (AUTO) 0.3 10^3/uL (0.0-1.0); MONOCYTES % (AUTO) 5.3 %; NEUTROPHILS # (AUTO) 5.5 10^3/uL (1.5-6.6); NEUTROPHILS % (AUTO) 85.8 %; PLT - PLATELET COUNT 235 10^3/uL (130-450); RED BLOOD COUNT 4.18 10^6/uL (4.20-5.40); RED CELL DISTRIBUTION WIDTH 14.1 % (12.0-15.0); WHITE BLOOD COUNT 6.4 x10^3/uL (4.8-10.8)
[2023-06-12 05:30] LABS: ALBUMIN 3.2 g/dL (3.2-5.5)
[2023-06-12 05:43] LABS: BILIRUBIN,TOTAL 0.3 mg/dL (0.2-1.0); CALCIUM 9.7 mg/dL (8.5-10.3); CREATININE 0.9 mg/dL (0.6-1.3); TOTAL PROTEIN 6.3 g/dL (6.4-8.9)
[2023-06-12] MEDS: MIN OIL/DIMETHICON/COCONUT OIL 92 GM TUBE TOP PRN (06:00)
[2023-06-12] MEDS: PANTOPRAZOLE 40 MG TABLET PO SCH (06:09)
[2023-06-12] MEDS: IPRATROPIUM/ALBUTEROL 3 ML NEB INH SCH ×2 (06:28→10:50)
[2023-06-12 06:32] LABS: ABG HCO3 36.3 mmol/L (22.0-26.0); ABG PCO2 56 mmHg (34-45); ABG PH 7.43 (7.35-7.45); ABG PO2 66 mmHg (80-100); ABG TCO2 38.1 MMOL/L (21.0-29.0)
[2023-06-12 06:33] LABS: ABG OXYGEN SATURATION 94 % (94-98)
[2023-06-12] MEDS: HYDROcod/ACETAM 5/325 MG TABLET PO PRN (08:03)
[2023-06-12] MEDS: carvediloL 12.5 MG TABLET PO SCH (08:51)
[2023-06-12] MEDS: polyethylene glycoL 3350 17 GM PACKET PO SCH (08:52)
[2023-06-12] MEDS: FUROSEMIDE 40 MG/4 ML VIAL IVP SCH (08:52)
[2023-06-12] MEDS: ENOXAPARIN 40 MG/0.4 ML SYRINGE SUBQ SCH (08:52)
[2023-06-12] MEDS ORDERED: cefTRIAXone 2 GM in SODIUM CHLORIDE 0.9% MINIBAG 100 ML IV SCH (09:00)
--- NOTE | 2023-06-12 10:31 | Discharge Plan ---
Discharge Plan Problem Reviewed?: Yes Disposition: Home, Self Care Condition: Good Prescriptions: Cefdinir 300 mg PO BID 3 Days #6 cap predniSONE [Deltasone] 40 mg PO DAILY 5 Days #10 tablet Azithromycin [Zithromax Tri-Saul] 500 mg PO DAILY 3 Days #3 tablet Diet: Low Sodium Activity Restrictions: Activity as Tolerated No Smoking: If you smoke, Please STOP! Call for help.
--- NOTE | 2023-06-12 10:43 | DISCHARGE SUMMARY ---
Discharge Summary Discharge Date: 06/12/23 Discharging Provider: Selene Em Primary Care Provider: Cally Gamboa Code Status: Attempt Resuscitation Condition at Discharge: Good Discharge Disposition: 01 Home, Self Care - DIAGNOSES Discharge Diagnoses with Status of Each Condition: (1) Acute and chronic respiratory failure with hypoxia Conclusion/Plan: -- Currently on NC. CPAP nightly. -- I did discuss with her CODE STATUS and intubation. She did communicate to me that she would be open to CPR and intubation. Her concern is prolonged time on a ventilator. --Patient does have a prior history of obesity hypoventilation and uses CPAP at home. (2) Pancytopenia Conclusion/Plan: -- Exact etiology is unclear. She has had a significant drop in the last sever al weeks. Patient was recently diagnosed with breast cancer and has a consultation next week. She has not undergone any treatment. --Stool occult was negative and she has no evidence of any bleeding. --2 units of packed red blood cells were given during her ED course --Monitor hemoglobin every 8 hours. Transfuse if under 7. --Can consider general surgery consult for EGD once her respiratory status is stable. This can be done as an outpatient. (3) Hyperchloremia Conclusion/Plan: --Resolved after IV D5 in half normal saline. -- Hyperchloremia with acidosis possibly due to acetazolamide use at home. This is currently being held. (4) COPD (chronic obstructive pulmonary disease) Conclusion/Plan: -- Scheduled DuoNeb. --Remains on BIPAP nightly --Monitoring her respiratory status with ABGs. --Have also initiated IV methylprednisolone. Will switch to a prednisone on discharge. (5) Pneumonia Conclusion/Plan: --CT chest showing evidence of pneumonia. Continue azithromycin and ce ftriaxone. (6) Congestive heart failure Conclusion/Plan: --Most recent TTE showing a preserved LVEF. --Restart Lasix 40 mg IV BID. --Holding Diamox. Her HCO3 is chronically elevated given her obesity hypoventilation syndrome. (7) Mobility impaired Conclusion/Plan: --Bedbound requiring a Toma lift at baseline. (8) Morbid obesity with BMI of 45.0-49.9, adult Conclusion/Plan: --Body habitus likely major contribute to her obesity hypoventilation. --NIPPV nightly. (9) Breast cancer Conclusion/Plan: -- Patient is to follow-up with oncology next week for an initial consultation. --Patient does have indeterminant liver and splenic lesions which require further follow-up with an MRI. - HPI History of Present Illness: Patient is an 82-year-old female the past medical history of obesity hypov entilation syndrome, heart failure with preserved ejection fraction, paroxysmal atrial fibrillation, morbid obesity who presented to the ED after she was found to be lethargic by her caregivers. She was initiated on BiPAP in the ED due to severe respiratory acidosis. Patient was also noted to be quite lethargic and confused initially. Patient was maintained on BiPAP overnight in the ED and her condition improved. She was subsequently admitted to the ICU. Of note, patient did present with a hemoglobin of 5.9. She was given 2 units of packed red blood cells which improved her hemoglobin to 11.6. She was recently diagnosed with breast cancer and has a follow-up consultation with hematolo gy/oncology next week. Chest x-ray performed this morning did show evidence of worsening infiltrates. During her ED course, she was treated with IV azithromycin and ceftriaxone. Due to her electrolyte abnormalities she was given IV D5 and half-normal saline overnight. - HOSPITAL COURSE Hospital Course: Patient is an 82-year-old female who presented to the ED due to lethargy noted by her caregivers. She was noted to be in respiratory acidosis in the ED and was treated with BiPAP. Patient was also noted to be anemic with a hemoglobin of 5.9 initially. She was given 2 units of packed red blood cells which increased her hemoglobin to 11.6. Her stool occult was negative and she was not noted to be bleeding. Patient was admitted to the ICU and continued on BiPAP. She was eventually weaned onto her baseline 2 L of oxygen and her mental status improved significantly. Chest x-ray did reveal evidence of pneumonia she was started on azithromycin and ceftriaxone. She was also given IV Lasix 40 mg twice daily. As her condition improved, patient requested that she be discharged home to her caregivers. She is bedbound at baseline. On discharge, her Lyrica was held. She was given prescriptions for prednisone 40 mg for 5 days, cefdinir 300 mg twice daily and azithromycin 500 mg daily to treat her pneumonia. I also started her on DuoNeb at home as she appeared to benefit from it while in patient. Her diamox was held to help maintain her metabolic base reserve given her high pCO2 at baseline. I also held her Lyrica on discharge as to not precipitate encephalopathy at home. As she was not actively bleeding, we did not pursue an EGD while inpatient however she may benefit from an outpatient general surgery referral for an EGD and colonoscopy given her anemia on presentation. Patient does have a consultation with oncology next week for her breast cancer. She will require an outpatient MRI of her abdomen to evaluate her liver lesions. - ALLERGIES Allergies/Adverse Reactions: Allergies Allergy/AdvReac Type Severity Reaction Status Date / Time No Known Drug Allergies Allergy Verified 05/23/23 14:16 - MEDICATIONS Home Medications: Ambulatory Orders Medication Instructions Recorded Confirmed Omeprazole 20 mg PO BID 04/27/14 06/10/23 HYDROcodone/ACET 7.5/325 [[place] 1 tab PO BID PRN 10/09/21 06/10/23 7.5/325] carvediloL [Coreg] 12.5 mg PO BID 10/09/21 06/10/23 Amitriptyline HCl 50 mg PO QPM 04/03/22 06/10/23 Atorvastatin [Lipitor] 20 mg PO QPM 04/03/22 06/10/23 Furosemide [Lasix] 60 mg PO QDBREAKFAST 04/03/22 06/10/23 Multivitamin/Iron/Folic Acid 1 tab PO DAILY 01/04/23 06/10/23 [Centrum Women Tablet] methocarbamoL [Methocarbamol] 750 mg PO QID 01/04/23 06/10/23 Potassium Chloride [Micro-K] 30 meq PO DAILY #90 cap 01/14/23 06/10/23 Losartan [Cozaar] 50 mg PO DAILY 06/10/23 06/10/23 Azithromycin [Zithromax Tri-Saul] 500 mg PO DAILY 3 Days #3 tablet 06/12/23 Cefdinir 300 mg PO BID 3 Days #6 cap 06/12/23 Furosemide [Lasix] 40 mg PO DAILY #30 tablet 06/12/23 Ipratropium/Albuterol [Duoneb] 3 ml INH Q6H #120 ml 06/12/23 predniSONE [Deltasone] 40 mg PO DAILY 5 Days #10 tablet 06/12/23 - PHYSICAL EXAM AT DISCHARGE General Appearance: positive: No acute distress, Alert Eyes Bilateral: positive: Normal inspection, PERRL, EOMI Neck: positive: Nml inspection, No JVD, Trachea midline Respiratory: positive: Chest non-tender, No respiratory distress, Breath sounds nml Cardiovascular: positive: Regular rate & rhythm, No murmur, No gallop Abdomen: positive: Non-tender, No organomegaly, Nml bowel sounds, No distention Skin: positive: Color nml, No rash, Warm Extremities: positive: Non-tender, Nml appearance, No pedal edema Neurologic/Psychiatric: positive: Oriented x3, CN's nml (2-12) - LABS Result Diagrams: 06/12/23 04:25 06/12/23 04:25 - DIAGNOSTIC IMAGING Diagnostic Imaging Results: Final report reviewed - SEPSIS Current Stage of Sepsis: Ruled out - FOLLOW UP Follow Up: Follow-up with PCP in 3-5 days. - TIME SPENT Time Spent in Discharge (Minutes): 35
[2023-06-12 11:05] VITALS: BP 152/53; O2SAT 95
== END 2023-06-12 11:57 | disposition home or self-care (01) | DRG 189 ==
LOC: EDUNIT# → ED 11:46 → ICU 06-10 11:39
PROVIDERS: ADMIT Family Medicine; ATTEND Family Medicine
DX: J96.21 Acute and chronic respiratory failure with hypoxia (principal); J18.9 Pneumonia, unspecified organism; I95.9 Hypotension, unspecified; D61.818 Other pancytopenia; J44.0 Chronic obstructive pulmonary disease with (acute) lower respiratory infection; E66.2 Morbid (severe) obesity with alveolar hypoventilation; Z68.42 Body mass index [BMI] 45.0-49.9, adult; I50.30 Unspecified diastolic (congestive) heart failure; I50.9 Heart failure, unspecified; I44.0 Atrioventricular block, first degree; D69.6 Thrombocytopenia, unspecified; E83.51 Hypocalcemia; E87.29 Other acidosis; G47.30 Sleep apnea, unspecified; J96.22 Acute and chronic respiratory failure with hypercapnia; Z99.81 Dependence on supplemental oxygen; E87.8 Other disorders of electrolyte and fluid balance, not elsewhere classified; I11.0 Hypertensive heart disease with heart failure; C50.911 Malignant neoplasm of unspecified site of right female breast; Z74.01 Bed confinement status; D64.9 Anemia, unspecified; I48.0 Paroxysmal atrial fibrillation; I25.10 Atherosclerotic heart disease of native coronary artery without angina pectoris; K21.9 Gastro-esophageal reflux disease without esophagitis
CPT/HCPCS: 36415; 36430; 36556; 36600; 71045; 71260; 74177; 80048; 80053; 81001; 82272; 82330; 82803; 83605; 83690; 83735; 83880; 84100; 84132; 85014; 85018; 85025; 86850; 86900; 86901; 86920; 87040; 87150; 87633; 93005; 94640; 94660; 96365; 96366; 96367; 99291; 99292; A6250; A9270; J1650; P9016; Q9967; 87070; 87086; 87205

== ENCOUNTER 2023-06-12 12:09 | Outpatient (CLI) | payer MEDICARE, BC | END 2023-06-12 12:10 | disposition home or self-care (01) | LOC: EMS 12:09 | PROVIDERS: ATTEND Family Medicine | DX: I50.9 Heart failure, unspecified (principal); J44.9 Chronic obstructive pulmonary disease, unspecified; J18.9 Pneumonia, unspecified organism; E66.01 Morbid (severe) obesity due to excess calories; Z74.01 Bed confinement status; Z99.81 Dependence on supplemental oxygen | CPT/HCPCS: A0425; A0428 ==

== ENCOUNTER 2023-09-23 17:49 | Outpatient (CLI) | payer MEDICARE, BC | END 2023-09-23 17:50 | disposition critical access hospital (66) | LOC: EMS 17:49 | DX: R53.83 Other fatigue (principal); R06.00 Dyspnea, unspecified; R05.9 Cough, unspecified; Z99.81 Dependence on supplemental oxygen; Z74.01 Bed confinement status | CPT/HCPCS: A0425; A0429 ==

== ENCOUNTER 2023-09-23 18:10 | Emergency (ER) | payer MEDICARE, BC ==
--- NOTE | 2023-09-23 18:47 | ED Physician Documentation ---
History of Present Illness - Stated complaint Stated Complaint: LETHARGIC - Chief complaint Chief Complaint: General - History obtained from History obtained from: Patient, EMS - History of Present Illness Timing: Today Pain level max: 0 Pain level now: 0 - Additonal information Additional information: Patient is an 82-year-old female who presents to the emergency department via EMS. Patient states that she feels slightly more swollen than usual. She has bedbound and uses a Toma lift to get around at home. She does not have any significant cough or congestion. States occasionally mild dry cough. No fevers. No chills. No nausea or vomiting. No diarrhea or constipation. No recent travel. She states she does have a history of congestive heart failure. She also is oxygen dependent, on 2 L nasal cannula at home. Has pickwickian syndrome as well. Patient also states that she started treatment for breast cancer approximately 3 weeks ago. 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: Breast cancer : Incontinence, Frequency HEENT: Chronic vision loss Psych: None Musculoskeletal: Osteoarthritis, Fibromyalgia, Chronic back pain, Other Derm: Rosacea - Past Surgical History Past Surgical History: Yes General: Cholecystectomy, Appendectomy, Colonoscopy /COMMERCIAL SALES DIRECTOR: Hysterectomy, Oophrectomy, Other HEENT: Cataracts Derm: Skin cancer surgery - Present Medications Home Medications: Ambulatory Orders Medication Instructions Recorded Confirmed Omeprazole 20 mg PO BID 04/27/14 09/23/23 carvediloL [Coreg] 12.5 mg PO BID 10/09/21 09/23/23 Amitriptyline HCl 50 mg PO QPM 04/03/22 09/23/23 Atorvastatin [Lipitor] 20 mg PO QPM 04/03/22 09/23/23 Multivitamin/Iron/Folic Acid 1 tab PO DAILY 01/04/23 09/23/23 [Centrum Women Tablet] methocarbamoL [Methocarbamol] 750 mg PO PRN PRN 01/04/23 09/23/23 Losartan [Cozaar] 25 mg PO DAILY 06/10/23 09/23/23 Furosemide [Lasix] 40 mg PO DAILY #30 tablet 06/12/23 09/23/23 Ipratropium/Albuterol [Duoneb] 3 ml INH Q6H #120 ml 06/12/23 09/23/23 Nebulizer 1 each MC QID #1 ea 06/12/23 09/23/23 Nebulizer Accessories [Adult 1 each MC PRN PRN #1 each 06/12/23 09/23/23 Aerosol Mask] Nebulizer and Compressor 1 each MC PRN PRN #1 each 06/12/23 09/23/23 [Compressor Nebulizer System] predniSONE [Deltasone] 40 mg PO DAILY 5 Days #10 tablet 06/12/23 09/23/23 Acetaminophen [Tylenol] 650 mg PO Q6H PRN 06/19/23 09/23/23 Apixaban [Eliquis] 5 mg PO BID 06/19/23 09/23/23 Potassium Chloride [Micro-K] 10 meq PO TID 06/19/23 09/23/23 Pregabalin 75 mg PO TID 06/19/23 09/23/23 Letrozole 2.5 mg PO DAILY 08/25/23 09/23/23 cephALEXin [Keflex] 500 mg PO Q6H #20 cap 09/23/23 - Allergies Allergies/Adverse Reactions: Allergies Allergy/AdvReac Type Severity Reaction Status Date / Time No Known Drug Allergies Allergy Verified 09/23/23 18:39 - Social History Does the pt smoke?: No Smoking Status: Never smoker Does the pt drink ETOH?: No Does the pt have substance abuse?: Yes - Immunizations Immunizations are current?: Yes - POLST Patient has POLST: No POLST Status: DNR PD ED PE NORMAL - Vitals Vital signs reviewed: Yes - General General: Alert and oriented X 3, No acute distress, Well developed/nourished - HEENT HEENT: Moist mucous membranes, Pharynx benign - Neck Neck: Supple, no meningeal sign - Cardiac Cardiac: RRR, Strong equal pulses - Respiratory Respiratory: No respiratory distress, Other (Mildly diminished breath sounds bilaterally, no respiratory distress) - Abdomen Abdomen: Soft, Non tender, Non distended - Back Back: No CVA TTP, No spinal TTP - Derm Derm: Warm and dry - Extremities Extremities: No calf tenderness / cord - Neuro Neuro: Alert and oriented X 3 Results - Vitals Vitals: Vital Signs - 24 hr 09/23/23 09/23/23 09/23/23 18:33 19:01 21:30 Temperature 36.8 C Heart Rate 54 L 62 60 Respiratory 22 21 18 Rate Blood Pressure 119/105 H 105/65 108/53 L O2 Saturation 94 94 95 If not protocol 2 : Oxygen Flow, liters/minute Oxygen O2 Source [Without Activity] Nasal cannula O2 Source [With Activity] Nasal cannula O2 Source Room air - Labs Labs: Laboratory Tests 09/23/23 09/23/23 09/23/23 18:57 18:57 18:57 WBC 16.0 H RBC 3.61 L Hgb 10.6 L Hct 36.6 L MCV 101.4 H MCH 29.4 MCHC 29.0 L RDW 14.0 Plt Count 171 MPV 11.3 H Neut # (Auto) 13.4 H Lymph # (Auto) 1.3 L [place] # (Auto) 1.0 Eos # (Auto) 0.2 Baso # (Auto) 0.0 Absolute Nucleated RBC 0.00 Nucleated RBC % 0.0 Sodium 139 Potassium 4.7 H Chloride 96 L Carbon Dioxide 43 H* Anion Gap 0.0 L BUN 24 H Creatinine 0.9 Estimated GFR (MDRD) 60 L Glucose 143 H Calcium 10.2 Total Bilirubin 0.4 AST 10 ALT 12 Alkaline Phosphatase 80 B-Natriuretic Peptide 147 H Total Protein 6.6 Albumin 3.5 Globulin 3.1 Albumin/Globulin Ratio 1.1 Lipase 21 Urine Color Urine Clarity Urine pH Ur Specific [place] Urine Protein Urine Glucose (UA) Urine Ketones Urine Occult Blood Urine Nitrite Urine Bilirubin Urine Urobilinogen Ur Leukocyte Esterase Urine RBC Urine WBC Ur Squamous Epith Cells Urine Bacteria Ur Microscopic Review Urine Culture Comments Nasal Adenovirus (PCR) Nasal B. parapertussis DNA (PCR) Nasal Coronavir 229E PCR Nasal Coronavir HKU1 PCR Nasal Coronavir NL63 PCR Nasal Coronavir OC43 PCR Nasal Enterovir/Rhinovir PCR Nasal Influenza B PCR Nasal Influenza A PCR Nasal Parainfluen 1 PCR Nasal Parainfluen 2 PCR Nasal Parainfluen 3 PCR Nasal Parainfluen 4 PCR Nasal RSV (PCR) Nasal B.pertussis DNA PCR Nasal C.pneumoniae (PCR) [place] Human Metapneumo PCR Nasal M.pneumoniae (PCR) Nasal SARS-CoV-2 (PCR) 09/23/23 09/23/23 19:07 19:10 WBC RBC Hgb Hct MCV MCH MCHC RDW Plt Count MPV Neut # (Auto) Lymph # (Auto) [place] # (Auto) Eos # (Auto) Baso # (Auto) Absolute Nucleated RBC Nucleated RBC % Sodium Potassium Chloride Carbon Dioxide Anion Gap BUN Creatinine Estimated GFR (MDRD) Glucose Calcium Total Bilirubin AST ALT Alkaline Phosphatase B-Natriuretic Peptide Total Protein Albumin Globulin Albumin/Globulin Ratio Lipase Urine Color YELLOW Urine Clarity CLOUDY Urine pH 5.5 Ur Specific [place] 1.020 Urine Protein NEGATIVE Urine Glucose (UA) NEGATIVE Urine Ketones NEGATIVE Urine Occult Blood SMALL H Urine Nitrite POSITIVE H Urine Bilirubin NEGATIVE Urine Urobilinogen 0.2 (NORMAL) Ur Leukocyte Esterase LARGE H Urine RBC 6-10 H Urine WBC >25 H Ur Squamous Epith Cells RARE Squamous Urine Bacteria Moderate H Ur Microscopic Review INDICATED Urine Culture Comments INDICATED Nasal Adenovirus (PCR) NOT DETECTED Nasal B. parapertussis DNA (PCR) NOT DETECTED Nasal Coronavir 229E PCR NOT DETECTED Nasal Coronavir HKU1 PCR NOT DETECTED Nasal Coronavir NL63 PCR NOT DETECTED Nasal Coronavir OC43 PCR NOT DETECTED Nasal Enterovir/Rhinovir PCR NOT DETECTED Nasal Influenza B PCR NOT DETECTED Nasal Influenza A PCR NOT DETECTED Nasal Parainfluen 1 PCR NOT DETECTED Nasal Parainfluen 2 PCR NOT DETECTED Nasal Parainfluen 3 PCR NOT DETECTED Nasal Parainfluen 4 PCR NOT DETECTED Nasal RSV (PCR) NOT DETECTED Nasal B.pertussis DNA PCR NOT DETECTED Nasal C.pneumoniae (PCR) NOT DETECTED Ankit Human Metapneumo PCR NOT DETECTED Nasal M.pneumoniae (PCR) NOT DETECTED Nasal SARS-CoV-2 (PCR) NOT DETECTED - Rads (name of study) cxr Relevant Findings:: Final report received, See rad report PD Medical Decision Making - ED course Complexity details: reviewed results, re-evaluated patient, considered differential, d/w patient ED course: Patient is well-appearing, nontoxic. Afebrile. Does have a mild leukocytosis, no fever. No evidence of sepsis. Given a dose of Rocephin IV for UTI. Her elevated carbon dioxide is chronic for the patient. Her anion gap of 0 is also chronic for the patient. Patient appears to be at her normal baseline otherwise. We will have her take the antibiotics at home and follow-up with her doctor for further care. Patient is GCS 15, alert, oriented x 3 here. Not lethargic. Patient counseled regarding signs and symptoms for which I believe and urgent re-evaluation would be necessary. Patient with good understanding of and agreement to plan and is comfortable going home at this time This document was made in part using voice recognition software. While efforts are made to proofread this document, sound alike and grammatical errors may occur. Departure - Departure Disposition: Home, Self Care Clinical Impression: UTI (urinary tract infection) Qualifiers: Urinary tract infection type: acute cystitis Hematuria presence: without hematuria Qualified Code(s): N30.00 - Acute cystitis without hematuria Condition: Good Instructions: ED UTI Cystitis Female Follow-Up: Miryam Potts PA-C [Primary Care Provider] - Within 1 week Prescriptions: cephALEXin [Keflex] 500 mg PO Q6H #20 cap Comments: Your prescription was [facility] to [facility] in [place]. Please follow-up with your doctor for further care. You are being treated for a bladder infection. Make sure you are drinking plenty of water at home. Forms: PCP List Discharge Date/Time: 09/23/23 21:57
[2023-09-23 19:02] LABS: BASOPHILS % (AUTO) 0.2 %; EOSINOPHILS # (AUTO) 0.2 10^3/uL (0.0-0.7); EOSINOPHILS % (AUTO) 1.2 %; HCT - HEMATOCRIT 36.6 % (37.0-47.0); HGB - HEMOGLOBIN 10.6 g/dL (12.0-16.0); LYMPHOCYTES # (AUTO) 1.3 10^3/uL (1.5-3.5); LYMPHOCYTES % (AUTO) 8.3 %; MEAN CORPUSCULAR HEMOGLOBIN 29.4 pg (27.0-31.0); MEAN CORPUSCULAR VOLUME 101.4 fL (81.0-99.0); MEAN PLATELET VOLUME 11.3 fL (7.9-10.8); NEUTROPHILS # (AUTO) 13.4 10^3/uL (1.5-6.6); PLT - PLATELET COUNT 171 10^3/uL (130-450); RED BLOOD COUNT 3.61 10^6/uL (4.20-5.40)
[2023-09-23 19:21] LABS: ALBUMIN 3.5 g/dL (3.2-5.5); ALBUMIN/GLOBULIN RATIO 1.1 (1.0-2.2); BILIRUBIN,TOTAL 0.4 mg/dL (0.2-1.0); CALCIUM 10.2 mg/dL (8.5-10.3); CREATININE 0.9 mg/dL (0.6-1.3); POTASSIUM 4.7 mmol/L (3.5-4.5); TOTAL PROTEIN 6.6 g/dL (6.4-8.9)
[2023-09-23 19:26] LABS: BILIRUBIN,URINE NEGATIVE (NEGATIVE); CLARITY,URINE CLOUDY (CLEAR); GLUCOSE, URINE (UA) NEGATIVE (NEGATIVE); KETONES,URINE (UA) NEGATIVE (NEGATIVE); LEUKOCYTE ESTERASE, URINE LARGE (NEGATIVE); NITRITE,URINE POSITIVE (NEGATIVE); OCCULT BLOOD,URINE SMALL (NEGATIVE); PH,URINE 5.5 PH (5.0-7.5); PROTEIN,URINE NEGATIVE (NEGATIVE); UROBILINOGEN,URINE 0.2 (NORMAL) E.U./dL (NORMAL)
--- NOTE | 2023-09-23 19:31 | XRAY Report ---
PROCEDURE: Chest 1V INDICATIONS: cough TECHNIQUE: One view of the chest was acquired. COMPARISON: None. FINDINGS: Surgical changes and devices: Right breast surgical clips. Lungs and pleura: No pleural effusions or pneumothorax. Lungs are clear. Mediastinum: Mediastinal contours appear normal. Heart size is enlarged. Bones and chest wall: No suspicious bony lesions. Overlying soft tissues appear unremarkable. IMPRESSION: No acute cardiopulmonary process. Reviewed by: Artem Arriaga MD on 09/23/2023 7:30 PM PST Approved by: Artem Arriaga MD on 09/23/2023 7:30 PM PST Station ID: [id number]
[2023-09-23 19:38] LABS: BACTERIA,URINE Moderate /HPF (None Seen); SQUAMOUS EPITHELIAL CELL,UR RARE Squamous (<= Few); WBC,URINE >25 /HPF (0-5)
[2023-09-23 20:09] LABS: B. PARAPERTUSSIS- RESP PCR PAN NOT DETECTED; B. PERTUSSIS- RESP PCR PANEL NOT DETECTED; C. PNEUMONIAE- RESP PCR PANEL NOT DETECTED; CORONAVIRUS 229E-RESP PCR NOT DETECTED; CORONAVIRUS HKU1-RESP PCR NOT DETECTED; CORONAVIRUS NL63-RESP PCR NOT DETECTED; CORONAVIRUS OC43-RESP PCR NOT DETECTED; HUMAN METAPNEUMOVIRUS NOT DETECTED; INFLUENZA A- RESP PCR PANEL NOT DETECTED; INFLUENZA B - RESP PCR PANEL NOT DETECTED; M. PNEUMONIAE- RESP PCR PANEL NOT DETECTED; PARAINFLUENZA VIRUS 1 NOT DETECTED; PARAINFLUENZA VIRUS 2 NOT DETECTED; PARAINFLUENZA VIRUS 3 NOT DETECTED; PARAINFLUENZA VIRUS 4 NOT DETECTED; RHINOVIRUS/ENTEROVIRUS NOT DETECTED; RSV- RESP PCR PANEL NOT DETECTED; SARS-CoV-2 -RESP PCR PANEL NOT DETECTED
[2023-09-23] MEDS: cefTRIAXone 1 GM VIAL IVP STA (20:20)
[2023-09-23 22:04] VITALS: BP 108/53; O2SAT 95
== END 2023-09-23 21:57 | disposition home or self-care (01) ==
LOC: EDUNIT# → ED 18:10
DX: N30.00 Acute cystitis without hematuria (principal); D72.829 Elevated white blood cell count, unspecified; C50.919 Malignant neoplasm of unspecified site of unspecified female breast; I11.0 Hypertensive heart disease with heart failure; I50.9 Heart failure, unspecified; E78.00 Pure hypercholesterolemia, unspecified; I25.10 Atherosclerotic heart disease of native coronary artery without angina pectoris; G62.9 Polyneuropathy, unspecified; Z99.81 Dependence on supplemental oxygen; Z79.899 Other long term (current) drug therapy; Z79.01 Long term (current) use of anticoagulants; Z66 Do not resuscitate
CPT/HCPCS: 36415; 80053; 81001; 81003; 83690; 83880; 85025; 87077; 87086; 87181; 87633; 96374; 99283

== ENCOUNTER 2023-09-23 21:55 | Outpatient (CLI) | payer MEDICARE, BC | END 2023-09-23 21:56 | disposition home or self-care (01) | LOC: EMS 21:55 | PROVIDERS: ATTEND Emergency Medicine | DX: E66.2 Morbid (severe) obesity with alveolar hypoventilation (principal); J44.9 Chronic obstructive pulmonary disease, unspecified; Z99.81 Dependence on supplemental oxygen; Z74.01 Bed confinement status | CPT/HCPCS: A0425; A0428 ==

== ENCOUNTER 2023-11-04 08:00 | Outpatient (CLI) | payer MEDICARE, BC | END 2023-11-04 23:59 | disposition home or self-care (01) | LOC: PC 08:00 | PROVIDERS: ATTEND Nurse Practitioner Gerontology | DX: Z51.5 Encounter for palliative care (principal); C50.911 Malignant neoplasm of unspecified site of right female breast; R00.1 Bradycardia, unspecified; G47.00 Insomnia, unspecified; E66.01 Morbid (severe) obesity due to excess calories; Z68.44 Body mass index [BMI] 60.0-69.9, adult; K59.09 Other constipation; Z71.89 Other specified counseling | CPT/HCPCS: 99350 ==

== ENCOUNTER 2023-11-09 09:00 | Outpatient (CLI) | payer MEDICARE, BC ==
[2023-11-09 09:42] LABS: CALCIUM 10.1 mg/dL (8.5-10.3); CREATININE 0.9 mg/dL (0.6-1.3)
== END 2023-11-09 09:01 | disposition home or self-care (01) ==
LOC: LAB 09:00
PROVIDERS: ATTEND Nurse Practitioner Gerontology
DX: I10 Essential (primary) hypertension (principal)
CPT/HCPCS: 36415; 80048

== ENCOUNTER 2023-11-24 08:00 | Outpatient (CLI) | payer MEDICARE, BC | END 2023-11-24 08:01 | disposition home or self-care (01) | LOC: PC 08:00 | PROVIDERS: ATTEND Nurse Practitioner Gerontology | DX: Z51.5 Encounter for palliative care (principal); I95.9 Hypotension, unspecified; C50.911 Malignant neoplasm of unspecified site of right female breast; L03.039 Cellulitis of unspecified toe; Z71.89 Other specified counseling | CPT/HCPCS: 99350 ==

== ENCOUNTER 2023-11-26 08:00 | Outpatient (CLI) | payer MEDICARE, BC | END 2023-11-26 23:59 | disposition home or self-care (01) | LOC: LAB.R 08:00 | PROVIDERS: ATTEND Podiatrist | DX: L03.032 Cellulitis of left toe (principal) | CPT/HCPCS: 87070; 87077; 87181; 87205 ==

== ENCOUNTER 2023-12-28 08:42 | Outpatient (CLI) | payer MEDICARE, BC | END 2023-12-28 23:59 | disposition critical access hospital (66) | LOC: EMS 08:42 | DX: J96.90 Respiratory failure, unspecified, unspecified whether with hypoxia or hypercapnia (principal); I44.0 Atrioventricular block, first degree; R60.0 Localized edema; R61 Generalized hyperhidrosis; R40.20 Unspecified coma | CPT/HCPCS: A0425; A0429 ==

== ENCOUNTER 2023-12-28 08:56 | Inpatient (IN) | payer MEDICARE, BC ==
--- NOTE | 2023-12-28 09:04 | ED Physician Documentation ---
PD HPI ALTERED MENTAL STATUS - Stated complaint Stated Complaint: SEPTIC - History obtained from History obtained from: Patient, EMS, Caregiver - History of Present Illness Timing - onset: Last night (The patient reportedly from caregiver was normal state going to bed last night. She has caregivers throughout the day. This morning on the new caregiver coming in, they went to get the patient up and she was on rousable. Appeared poor respiratory effort. EMS was called and found her hypoxic.) Timing - duration: Hours Timing - details: Abrupt onset (somewhere overnight) Quality / character: Unresponsive Associated symptoms: No: Fever Contributing factors: Anticoagulated. 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 Caregiver states pt was reported acting normal last evening at 9 pm at bedtime. Had not awakened through the night.) Constitutional: denies: Fever Cardiac: denies: Chest pain / pressure Respiratory: denies: Cough GI: denies: Abdominal Pain, Vomiting, Diarrhea PD PAST MEDICAL HISTORY - Past Medical History Cardiovascular: Congestive heart failure, Hypertension, High cholesterol, Coronary artery disease, Valve disorder Respiratory: Shortness of breath, Sleep apnea, CPAP use Neuro: Headaches, Peripheral neuropathy Endocrine/Autoimmune: Other GI: GERD, Other HOSPITAL MONITOR: Breast cancer : Incontinence, Frequency HEENT: Chronic vision loss Psych: None Musculoskeletal: Osteoarthritis, Fibromyalgia, Chronic back pain, Other Derm: Rosacea - Past Surgical History Past Surgical History: Yes General: Cholecystectomy, Appendectomy, Colonoscopy /HOSPITAL MONITOR: Hysterectomy, Oophrectomy, Other HEENT: Cataracts Derm: Skin cancer surgery - Present Medications Home Medications: Ambulatory Orders Medication Instructions Recorded Confirmed Omeprazole 20 mg PO BID 04/27/14 12/28/23 carvediloL [Coreg] 6.25 mg PO BID 10/09/21 12/28/23 Atorvastatin [Lipitor] 20 mg PO QPM 04/03/22 12/28/23 Multivitamin/Iron/Folic Acid 1 tab PO DAILY 01/04/23 12/28/23 [Centrum Women Tablet] methocarbamoL [Methocarbamol] 750 mg PO QID PRN 01/04/23 12/28/23 Acetaminophen [Tylenol] 650 mg PO Q6H PRN 06/19/23 12/28/23 Apixaban [Eliquis] 5 mg PO BID 06/19/23 12/28/23 Potassium Chloride [Micro-K] 20 meq PO DAILY 06/19/23 12/28/23 Pregabalin 75 mg PO TID 06/19/23 12/28/23 Letrozole 2.5 mg PO DAILY 08/25/23 12/28/23 Sennosides [Senna Lax] 8.6 - 25.8 mg PO DAILY PRN 11/03/23 12/28/23 traZODone [Desyrel] 100 mg PO HS 11/03/23 12/28/23 Furosemide [Lasix] 60 mg PO BIDDIURETIC 12/28/23 12/28/23 - Allergies Allergies/Adverse Reactions: Allergies Allergy/AdvReac Type Severity Reaction Status Date / Time No Known Drug Allergies Allergy Verified 12/28/23 09:03 - Social History Does the pt smoke?: No Smoking Status: Never smoker Does the pt drink ETOH?: No Does the pt have substance abuse?: Yes - Immunizations Immunizations are current?: Yes - POLST Patient has POLST: Yes POLST Status: Do Not Intubate PD ED PE NORMAL - Vitals Vital signs reviewed: Yes - General General: No acute distress (general decreased muscle tone and responsiveness. Having resp effort with lower tidal volumes. ), Well developed/nourished. No: Alert and oriented X 3 - HEENT HEENT: Atraumatic - Neck Neck: Supple, no meningeal sign, No adenopathy - Cardiac Cardiac: RRR, No murmur - Respiratory Respiratory: Clear bilaterally, Other (no retractions nor wheezing.) - Abdomen Abdomen: Soft, Non distended - Derm Derm: Normal color, Warm and dry - Extremities Extremities: Other (mild bilateral leg edema.) Results - Vitals Vitals: Vital Signs - 24 hr 12/28/23 12/28/23 12/28/23 08:59 09:12 09:30 Temperature 35.5 C L Heart Rate 70 68 62 Respiratory 16 23 Rate Blood Pressure 127/83 H 108/54 L O2 Saturation 90 L 96 If not protocol 4 : Oxygen Flow, liters/minute 12/28/23 12/28/23 12/28/23 09:42 09:45 10:00 Temperature Heart Rate 64 57 L 63 Respiratory 16 21 Rate Blood Pressure 100/54 L 150/78 H O2 Saturation 96 95 If not protocol 4 : Oxygen Flow, liters/minute 12/28/23 12/28/23 12/28/23 10:30 11:00 11:08 Temperature Heart Rate 61 55 L 56 L Respiratory 17 23 20 Rate Blood Pressure 111/54 L 121/59 L 102/52 L O2 Saturation 96 99 If not protocol : Oxygen Flow, liters/minute 12/28/23 11:13 Temperature Heart Rate 64 Respiratory Rate Blood Pressure O2 Saturation If not protocol 2 : Oxygen Flow, liters/minute Oxygen O2 Source [Without Activity] Nasal cannula O2 Source [With Activity] Nasal cannula O2 Source BIPAP - Labs Labs: Laboratory Tests 12/28/23 12/28/23 12/28/23 09:17 09:52 09:52 WBC 14.2 H RBC 4.24 Hgb 12.6 Hct 45.7 MCV 107.8 H MCH 29.7 MCHC 27.6 L RDW 13.4 Plt Count 206 MPV 11.5 H Neut # (Auto) 12.3 H Lymph # (Auto) 0.5 L Nolan # (Auto) 1.0 Eos # (Auto) 0.0 Baso # (Auto) 0.0 Absolute Nucleated RBC 0.00 Nucleated RBC % 0.0 Bld Gas Analysis Time Sample Site ABG pH ABG pCO2 ABG pO2 ABG HCO3 ABG Total CO2 ABG O2 Saturation ABG Base Excess Lester Test Respiration Rate O2 Delivery Device FiO2 IPAP Sodium 144 Potassium 4.9 H Chloride 94 L Carbon Dioxide > 45 H* Anion Gap TNP BUN 24 H Creatinine 1.1 Estimated GFR (MDRD) 48 L Glucose 204 H POC Whole Bld Glucose 191 H Lactic Acid Calcium 10.6 H Magnesium 2.4 H Total Bilirubin 0.3 AST 42 ALT 53 Alkaline Phosphatase 111 B-Natriuretic Peptide Total Protein 6.8 Albumin 3.9 Globulin 2.9 Albumin/Globulin Ratio 1.3 Lipase 16 Urine Color Urine Clarity Urine pH Ur Specific [place] Urine Protein Urine Glucose (UA) Urine Ketones Urine Occult Blood Urine Nitrite Urine Bilirubin Urine Urobilinogen Ur Leukocyte Esterase Urine RBC Urine WBC Ur Epithelial Cells Ur Squamous Epith Cells Urine Bacteria Urine Casts Ur Microscopic Review Urine Culture Comments Nasal Adenovirus (PCR) Nasal B. parapertussis DNA (PCR) Nasal Coronavir 229E PCR Nasal Coronavir HKU1 PCR Nasal Coronavir NL63 PCR Nasal Coronavir OC43 PCR Nasal Enterovir/Rhinovir PCR Nasal Influenza B PCR Nasal Influenza A PCR Nasal Parainfluen 1 PCR Nasal Parainfluen 2 PCR Nasal Parainfluen 3 PCR Nasal Parainfluen 4 PCR Nasal RSV (PCR) Nasal B.pertussis DNA PCR Nasal C.pneumoniae (PCR) Ankit Human Metapneumo PCR Nasal M.pneumoniae (PCR) Nasal SARS-CoV-2 (PCR) Salicylates < 1.5 Urine Opiates Screen Ur Buprenorphine Scrn Ur Oxycodone Screen Urine Methadone Screen Acetaminophen 1.7 Ur Barbiturates Screen Ur Tricyclics Screen Ur Phencyclidine Scrn Ur Amphetamine Screen U Methamphetamines Scrn U Benzodiazepines Scrn Urine Cocaine Screen U Cannabinoids Screen Ur Drug Screen Comment Ethyl Alcohol < 10.0 12/28/23 12/28/23 12/28/23 09:52 09:52 10:13 WBC RBC Hgb Hct MCV MCH MCHC RDW Plt Count MPV Neut # (Auto) Lymph # (Auto) Nolan # (Auto) Eos # (Auto) Baso # (Auto) Absolute Nucleated RBC Nucleated RBC % Bld Gas Analysis Time Sample Site ABG pH ABG pCO2 ABG pO2 ABG HCO3 ABG Total CO2 ABG O2 Saturation ABG Base Excess Lester Test Respiration Rate O2 Delivery Device FiO2 IPAP Sodium Potassium Chloride Carbon Dioxide Anion Gap BUN Creatinine Estimated GFR (MDRD) Glucose POC Whole Bld Glucose Lactic Acid 0.9 Calcium Magnesium Total Bilirubin AST ALT Alkaline Phosphatase B-Natriuretic Peptide 526 H Total Protein Albumin Globulin Albumin/Globulin Ratio Lipase Urine Color YELLOW Urine Clarity CLEAR Urine pH 5.5 Ur Specific [place] 1.015 Urine Protein NEGATIVE Urine Glucose (UA) NEGATIVE Urine Ketones NEGATIVE Urine Occult Blood LARGE H Urine Nitrite NEGATIVE Urine Bilirubin NEGATIVE Urine Urobilinogen 0.2 (NORMAL) Ur Leukocyte Esterase NEGATIVE Urine RBC 0-5 Urine WBC 0-3 Ur Epithelial Cells RARE Transitional Ur Squamous Epith Cells FEW Squamous Urine Bacteria Few Urine Casts 0-2 Hyaline Casts Ur Microscopic Review INDICATED Urine Culture Comments NOT INDICATED Nasal Adenovirus (PCR) Nasal B. parapertussis DNA (PCR) Nasal Coronavir 229E PCR Nasal Coronavir HKU1 PCR Nasal Coronavir NL63 PCR Nasal Coronavir OC43 PCR Nasal Enterovir/Rhinovir PCR Nasal Influenza B PCR Nasal Influenza A PCR Nasal Parainfluen 1 PCR Nasal Parainfluen 2 PCR Nasal Parainfluen 3 PCR Nasal Parainfluen 4 PCR Nasal RSV (PCR) Nasal B.pertussis DNA PCR Nasal C.pneumoniae (PCR) Ankit Human Metapneumo PCR Nasal M.pneumoniae (PCR) Nasal SARS-CoV-2 (PCR) Salicylates Urine Opiates Screen NEGATIVE Ur Buprenorphine Scrn NEGATIVE Ur Oxycodone Screen NEGATIVE Urine Methadone Screen NEGATIVE Acetaminophen Ur Barbiturates Screen NEGATIVE Ur Tricyclics Screen NEGATIVE Ur Phencyclidine Scrn NEGATIVE Ur Amphetamine Screen NEGATIVE U Methamphetamines Scrn NEGATIVE U Benzodiazepines Scrn NEGATIVE Urine Cocaine Screen NEGATIVE U Cannabinoids Screen NEGATIVE Ur Drug Screen Comment CUTOFF CONC BELOW: Ethyl Alcohol 12/28/23 12/28/23 10:25 11:00 WBC RBC Hgb Hct MCV MCH MCHC RDW Plt Count MPV Neut # (Auto) Lymph # (Auto) Nolan # (Auto) Eos # (Auto) Baso # (Auto) Absolute Nucleated RBC Nucleated RBC % Bld Gas Analysis Time 1100 Sample Site RIGHT RADIAL ABG pH 7.16 L* ABG pCO2 141 H* ABG pO2 146 H ABG HCO3 49.5 H ABG Total CO2 53.8 H* ABG O2 Saturation 98 ABG Base Excess 14.9 H Lester Test POSITIVE Respiration Rate 16 O2 Delivery Device BiPAP FiO2 80.00 IPAP 18 Sodium Potassium Chloride Carbon Dioxide Anion Gap BUN Creatinine Estimated GFR (MDRD) Glucose POC Whole Bld Glucose Lactic Acid Calcium Magnesium Total Bilirubin AST ALT Alkaline Phosphatase B-Natriuretic Peptide Total Protein Albumin Globulin Albumin/Globulin Ratio Lipase Urine Color Urine Clarity Urine pH Ur Specific [place] Urine Protein Urine Glucose (UA) Urine Ketones Urine Occult Blood Urine Nitrite Urine Bilirubin Urine Urobilinogen Ur Leukocyte Esterase Urine RBC Urine WBC Ur Epithelial Cells Ur Squamous Epith Cells Urine Bacteria Urine Casts Ur Microscopic Review Urine Culture Comments Nasal Adenovirus (PCR) NOT DETECTED Nasal B. parapertussis DNA (PCR) NOT DETECTED Nasal Coronavir 229E PCR NOT DETECTED Nasal Coronavir HKU1 PCR NOT DETECTED Nasal Coronavir NL63 PCR NOT DETECTED Nasal Coronavir OC43 PCR NOT DETECTED Nasal Enterovir/Rhinovir PCR NOT DETECTED Nasal Influenza B PCR NOT DETECTED Nasal Influenza A PCR NOT DETECTED Nasal Parainfluen 1 PCR NOT DETECTED Nasal Parainfluen 2 PCR NOT DETECTED Nasal Parainfluen 3 PCR NOT DETECTED Nasal Parainfluen 4 PCR NOT DETECTED Nasal RSV (PCR) NOT DETECTED Nasal B.pertussis DNA PCR NOT DETECTED Nasal C.pneumoniae (PCR) NOT DETECTED Ankit Human Metapneumo PCR NOT DETECTED Nasal M.pneumoniae (PCR) NOT DETECTED Nasal SARS-CoV-2 (PCR) NOT DETECTED Salicylates Urine Opiates Screen Ur Buprenorphine Scrn Ur Oxycodone Screen Urine Methadone Screen Acetaminophen Ur Barbiturates Screen Ur Tricyclics Screen Ur Phencyclidine Scrn Ur Amphetamine Screen U Methamphetamines Scrn U Benzodiazepines Scrn Urine Cocaine Screen U Cannabinoids Screen Ur Drug Screen Comment Ethyl Alcohol - Rads (name of study) chest xray Relevant Findings:: Prelim report reviewed (cardiomegaly, increased interstitial markings c/w edema. ), EMP independent interpretation of test head CT Relevant Findings:: Prelim report reviewed (no acute process. ), EMP independent interpretation of test PD Medical Decision Making - ED course Complexity details: reviewed results (elevated CO2 at 145. Presume this is the cause of her altered mentation. No signs of pneumonia. Has some CHF history. Consider if had CPAP off and got hypercarbic. Labs do not find indications of infection. CT head without acute change. ), considered differential (onset altered mental status with decreased responsiveness and poor resp effort somet sylvia during the night. Last noted okay 9 pm last evening. No change in meds. No recent illness. Pt wears CPAP at night and it was reportedly placed on last evening. Caregiver not sure if was noted still on this AM.), d/w patient ED course: Pt has POLST that is limited interventions with DNI/DNR. With apparent clinical lower resp effort, was placed on bipap in ED and was doing okay wiht it, tolerating and was gradually seeming to have improving repsonsivenss though certainly no spontaneous eye opening. Mild movement of arms. - Critical Care Time(min): 65 Comments: eval of patient with initial assessment and labs, bipap, evaluation and repeated evalatuions for assessing improvement state. Time Includes: Direct patient care, Review records, Reassess patient, Document care, Coordinate care Data interpretation: Labs, Pulse ox, ABG Departure - Departure Disposition: 66 [facility] DC/Xfer Clinical Impression: Altered mental status, Respiratory insufficiency, Hypercarbia Condition: Stable Record reviewed to determine appropriate education?: Yes Discharge Date/Time: 12/28/23 13:32
[2023-12-28] MEDS: NALOXONE 0.4 MG/ML VIAL IVP STA (09:09)
[2023-12-28 10:02] LABS: BASOPHILS % (AUTO) 0.3 %; HCT - HEMATOCRIT 45.7 % (37.0-47.0); HGB - HEMOGLOBIN 12.6 g/dL (12.0-16.0); LYMPHOCYTES # (AUTO) 0.5 10^3/uL (1.5-3.5); LYMPHOCYTES % (AUTO) 3.7 %; MEAN CORPUSCULAR HEMOGLOBIN 29.7 pg (27.0-31.0); MEAN CORPUSCULAR HGB CONC 27.6 g/dL (32.0-36.0); MEAN CORPUSCULAR VOLUME 107.8 fL (81.0-99.0); MEAN PLATELET VOLUME 11.5 fL (7.9-10.8); MONOCYTES % (AUTO) 6.9 %; NEUTROPHILS # (AUTO) 12.3 10^3/uL (1.5-6.6); NEUTROPHILS % (AUTO) 86.6 %; PLT - PLATELET COUNT 206 10^3/uL (130-450); RED BLOOD COUNT 4.24 10^6/uL (4.20-5.40); RED CELL DISTRIBUTION WIDTH 13.4 % (12.0-15.0); WHITE BLOOD COUNT 14.2 x10^3/uL (4.8-10.8)
--- NOTE | 2023-12-28 10:05 | XRAY Report ---
PROCEDURE: Chest 1V INDICATIONS: hypoventilating, hypoxia TECHNIQUE: One view of the chest was acquired. COMPARISON: Chest radiograph 09/23/2023. FINDINGS: Surgical changes and devices: Surgical clips in the right axilla. Lungs and pleura: Small bilateral pleural effusions with subjacent atelectasis. No pneumothorax. Inc reased interstitial markings represent mild pulmonary edema. Mediastinum: Mediastinal contours appear stable. Heart size is enlarged. Bones and chest wall: No suspicious bony lesions. Overlying soft tissues appear unremarkable. IMPRESSION: Small bilateral pleural effusions with subjacent atelectasis. Mildly increased markings may represent mild pulmonary edema. Cardiomegaly, as before. Reviewed by: Silvia Oquendo MD, PhD on 12/28/2023 9:04 AM [facility] Approved by: Silvia Oquendo MD, PhD on 12/28/2023 9:04 AM [facility] Station ID: [id number]
--- NOTE | 2023-12-28 10:14 | CT Report ---
PROCEDURE: Head WO INDICATIONS: altered AMS TECHNIQUE: Noncontrast 4.5 mm thick angled axial sections acquired from the foramen magnum to the vertex. For r adiation dose reduction, the following was used: automated exposure control, adjustment of mA and/or kV according to patient size. COMPARISON: None. FINDINGS: Image quality: Diagnostic. CSF spaces: Basal cisterns are patent. No extra-axial fluid collections. Ventricles are normal in size and shape. Brain: No midline shift. No intracranial masses or hemorrhage. Valentin-white matter interface is norm al. Skull and face: Calvarium and visualized facial bones are intact, without suspicious lesions. Sinuses: Visualized sinuses and mastoids are clear. IMPRESSION: No acute intracranial pathology. Reviewed by: Silvia Oquendo MD, PhD on 12/28/2023 9:13 AM [facility] Approved by: Silvia Oquendo MD, PhD on 12/28/2023 9:13 AM [facility] Station ID: [id number]
[2023-12-28 10:15] LABS: ACETAMINOPHEN 1.7 ug/mL; ETOH - ETHANOL < 10.0 mg/dL; LIPASE 16 U/L (11-82); MAGNESIUM 2.4 mg/dL (1.7-2.3)
[2023-12-28 10:23] LABS: ALBUMIN 3.9 g/dL (3.2-5.5); ALBUMIN/GLOBULIN RATIO 1.3 (1.0-2.2); ALKALINE PHOSPHATASE 111 IU/L (42-121); ALT ALANINE AMINOTRANSFERASE 53 IU/L (10-60); AST ASPARTATE AMINOTRANSFERASE 42 IU/L (10-42); BILIRUBIN,TOTAL 0.3 mg/dL (0.2-1.0); BUN - BLOOD UREA NITROGEN 24 mg/dL (6-20); CALCIUM 10.6 mg/dL (8.5-10.3); CARBON DIOXIDE - CO2 > 45 mmol/L (21-32); CHLORIDE 94 mmol/L (101-111); CREATININE 1.1 mg/dL (0.6-1.3); GFR - MDRD 48 (>89); GLUCOSE 204 mg/dL (74-104); POTASSIUM 4.9 mmol/L (3.5-4.5); SALICYLATE < 1.5 mg/dL; SODIUM 144 mmol/L (135-145); TOTAL PROTEIN 6.8 g/dL (6.4-8.9)
[2023-12-28 10:26] LABS: BILIRUBIN,URINE NEGATIVE (NEGATIVE); GLUCOSE, URINE (UA) NEGATIVE (NEGATIVE); KETONES,URINE (UA) NEGATIVE (NEGATIVE); LEUKOCYTE ESTERASE, URINE NEGATIVE (NEGATIVE); NITRITE,URINE NEGATIVE (NEGATIVE); OCCULT BLOOD,URINE LARGE (NEGATIVE); PH,URINE 5.5 PH (5.0-7.5); PROTEIN,URINE NEGATIVE (NEGATIVE); UROBILINOGEN,URINE 0.2 (NORMAL) E.U./dL (NORMAL)
[2023-12-28 10:29] LABS: CLARITY,URINE CLEAR (CLEAR)
[2023-12-28 10:37] LABS: AMPHETAMINE SCREEN,URINE NEGATIVE (NEGATIVE); BARBITURATE SCREEN,UR NEGATIVE (NEGATIVE); BENZODIAZEPINES SCREEN, URINE NEGATIVE (NEGATIVE); BUPRENORPHINE SCREEN, URINE NEGATIVE (NEGATIVE); COCAINE SCREEN URINE NEGATIVE (NEGATIVE); METHADONE SCREEN, URINE NEGATIVE (NEGATIVE); METHAMPHETAMINES SCREEN, URINE NEGATIVE (NEGATIVE); OPIATE SCREEN, URINE NEGATIVE (NEGATIVE); OXYCODONE SCREEN, URINE NEGATIVE (NEGATIVE); THC CANNABINOID SCREEN, URINE NEGATIVE (NEGATIVE); TRICYCLIC ANTIDEPRESSANT,URINE NEGATIVE (NEGATIVE)
[2023-12-28 10:45] LABS: BACTERIA,URINE Few /HPF (None Seen); CASTS, URINE 0-2 Hyaline Casts /LPF; EPITHELIAL CELLS,UR RARE Transitional /HPF (<= Few); RBC,URINE 0-5 /HPF (0-5); SQUAMOUS EPITHELIAL CELL,UR FEW Squamous (<= Few); WBC,URINE 0-3 /HPF (0-5)
[2023-12-28 11:09] LABS: ABG HCO3 49.5 mmol/L (22.0-26.0); ABG PO2 146 mmHg (80-100)
[2023-12-28 11:10] LABS: ABG BASE EXCESS 14.9 mmol/L (-2.0-3.0); ABG OXYGEN SATURATION 98 % (94-98); ABG RESPIRATORY RATE 16 b/min; ALLEN TEST POSITIVE
[2023-12-28 11:12] LABS: ABG PCO2 141 mmHg (34-45); ABG PH 7.16 (7.35-7.45); ABG TCO2 53.8 MMOL/L (21.0-29.0)
[2023-12-28 11:25] LABS: B. PARAPERTUSSIS- RESP PCR PAN NOT DETECTED; B. PERTUSSIS- RESP PCR PANEL NOT DETECTED; C. PNEUMONIAE- RESP PCR PANEL NOT DETECTED; CORONAVIRUS 229E-RESP PCR NOT DETECTED; CORONAVIRUS HKU1-RESP PCR NOT DETECTED; CORONAVIRUS NL63-RESP PCR NOT DETECTED; CORONAVIRUS OC43-RESP PCR NOT DETECTED; HUMAN METAPNEUMOVIRUS NOT DETECTED; INFLUENZA A- RESP PCR PANEL NOT DETECTED; INFLUENZA B - RESP PCR PANEL NOT DETECTED; M. PNEUMONIAE- RESP PCR PANEL NOT DETECTED; PARAINFLUENZA VIRUS 1 NOT DETECTED; PARAINFLUENZA VIRUS 2 NOT DETECTED; PARAINFLUENZA VIRUS 3 NOT DETECTED; PARAINFLUENZA VIRUS 4 NOT DETECTED; RHINOVIRUS/ENTEROVIRUS NOT DETECTED; RSV- RESP PCR PANEL NOT DETECTED; SARS-CoV-2 -RESP PCR PANEL NOT DETECTED
--- NOTE | 2023-12-28 12:23 | HISTORY & PHYSICAL EXAMINATION ---
Chief Complaint - Chief Complaint Chief Complaint: Altered mental status History of Present Illness - Admitted From Admitted From:: ED - History Obtained From Records Reviewed: Yes History obtained from: Patient, prior records Exam Limitations: Altered mental status - History of Present Illness HPI Comment/Other: Patient is a 83 year old female with extensive medical history who was brought in by ambulance today from home. Last known normal was yesterday evening. Her caregivers noted somnolence, unresponsiveness, and agonal breathing with a pulse. Medics noted hypoxia in the field. In the ED, she received Narcan without response. Her labs are notable for ABG 7.16/141/146/49.5, BNP 526, WBC 14.2, high neutrophils 12. Lactate 0.9, glucose 191, BUN/Cr 24/1.1. CXR with bilateral pleural effusions. Negative UA, U tox, respiratory viral panel, and CT head. Differential includes mixed acute on chronic hypercapneic respiratory failure, obesity hypoventilation syndrome, obstructive sleep apnea, infection, acute on chronic HF exacerbation. Given profound mixed respiratory acidosis with significant metabolic compen sation with significant somnolence and minimal response to sternal rub, patient is being admitted to ICU for ongoing bipap need. 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: reports: Breast cancer (s/p R lumpectomy, sentinel lymph node biopsy, chemo, radiation previously on adriamycin & cytoxan f/b paclitaxel currently on letrozole.), Other (benign ovarian mass) : reports: Incontinence HEENT: reports: Chronic vision loss Psych: reports: None Musculoskeletal: reports: Osteoarthritis, Fibromyalgia, Chronic back pain Derm: reports: Rosacea MRSA Hx?: No Other Past Medical History: chronic respiratory failure on home O2, rhabdomyolysis, morbid obesity, chronic ingrown toenail, pressure ulcers - Past Surgical History General: reports: Cholecystectomy, Appendectomy, Colonoscopy /SENIOR SAS DEVELOPER: reports: Hysterectomy, Oophrectomy HEENT: reports: Cataracts Derm: reports: Skin cancer surgery Other past surgical history: R lumpectomy, tonsillectomy, jaw surgery x7 - Family & Social History Family History: Mother: , Father: Family History Comment/Other: Father of heart disease at the age of 50. Mother of old age at 84 but had high blood pressure, diabetes, Parkinson's disease. 1 brother of unknown causes. 1 sister alive but very ill with unknown causes. 2 children described as completely healthy without any medical illnesses. Living arrangement: At home Living Situation: Alone, With caregiver(s) [place]: [place] Single. 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 - Substance History Use: Uses substance without health or social issues: NONE Abuse: Recurrent use of substance despite neg consequences: NONE Dependence: Experiences withdrawal or developed tolerances: NONE - POLST Patient has POLST: Yes POLST Status: Limited Interventions (Attempt CPR but DNI per POLST 2022) Meds/Allgy - Home Medications Home Medications: Ambulatory Orders Medication Instructions Recorded Confirmed Omeprazole 20 mg PO BID 04/27/14 12/28/23 carvediloL [Coreg] 6.25 mg PO BID 10/09/21 12/28/23 Atorvastatin [Lipitor] 20 mg PO QPM 04/03/22 12/28/23 Multivitamin/Iron/Folic Acid 1 tab PO DAILY 01/04/23 12/28/23 [Centrum Women Tablet] methocarbamoL [Methocarbamol] 750 mg PO QID PRN 01/04/23 12/28/23 Acetaminophen [Tylenol] 650 mg PO Q6H PRN 06/19/23 12/28/23 Apixaban [Eliquis] 5 mg PO BID 06/19/23 12/28/23 Potassium Chloride [Micro-K] 20 meq PO DAILY 06/19/23 12/28/23 Pregabalin 75 mg PO TID 06/19/23 12/28/23 Letrozole 2.5 mg PO DAILY 08/25/23 12/28/23 Sennosides [Senna Lax] 8.6 - 25.8 mg PO DAILY PRN 11/03/23 12/28/23 traZODone [Desyrel] 100 mg PO HS 11/03/23 12/28/23 Furosemide [Lasix] 60 mg PO BIDDIURETIC 12/28/23 12/28/23 - Allergies Allergies/Adverse Reactions: Allergies Allergy/AdvReac Type Severity Reaction Status Date / Time No Known Drug Allergies Allergy Verified 12/28/23 09:03 Review of Systems - Other Findings Other Findings: Patient unable to participate in exam, significantly somnolent with minimal response to sternal rub. Prior Level of Functionality: Patient's baseline level of mobility appears to be wheelchair bound with Toma lift and on home O2 for chronic respiratory failure. She has up to two caregivers who assist with her ADLs. Exam - Vital Signs Reviewed Vital Signs: Yes Vital Signs: Vital Signs x48h Temp Pulse Resp BP Pulse Ox O2 Flow Rate 12/28/23 11:13 64 2 12/28/23 11:08 56 L 20 102/52 L 12/28/23 11:00 55 L 23 121/59 L 99 12/28/23 10:30 61 17 111/54 L 96 12/28/23 10:00 63 21 150/78 H 95 12/28/23 09:45 57 L 16 100/54 L 96 12/28/23 09:42 64 4 12/28/23 09:30 62 23 108/54 L 96 12/28/23 09:12 68 4 12/28/23 08:59 35.5 C L 70 16 127/83 H 90 L - Physical Exam General Appearance: positive: Severe distress, Other (Patient unable to participate in exam, significantly somnolent with minimal response to sternal rub. Ill-appearing woman laying in bed.) Eyes Bilateral: positive: PERRL ENT: positive: Dry mucous membranes Neck: positive: Trachea midline Respiratory: positive: Other (Minimal air movement in upper and lower airways. Bipap on) Cardiovascular: positive: Other (Irregular rate, S1 S2 with soft murmur) Peripheral Pulses: positive: 1+ Abdomen: positive: Non-tender, Abnml bowel sounds (Hypoactive) Extremities: positive: Other (Limited ROM) Neurologic/Psychiatric: negative: Oriented x3, Weakness, Facial droop Sepsis Event Note (H) - Evaluation Current Stage of Sepsis: Sepsis Possible source of Sepsis: positive: Pulmonary - Sepsis Criteria Sepsis Criteria: Recorded Respiratory Rate greater than 20, Respiratory: Increasing oxygen requirements, WBC count greater than 12,000 or less than 4000, SOCIAL SCIENCE MANAGER: altered consciousness (unrelated to primary neuro pathology) Conclusion/Plan - Problem List (1) Acute respiratory failure with hypoxia and hypercarbia Conclusion/Plan: Last known normal was yesterday evening. Her caregivers noted somnolence, unresponsiveness, and agonal breathing with a pulse. Subsequently brought in by ambulance. In the ED, her labs are notable for ABG 7.16/141/146/49.5, BNP 526, WBC 14.2, high neutrophils 12. Lactate 0.9, glucose 191, BUN/Cr 24/1.1. CXR with bilateral pleural effusions. Negative UA, U tox, respiratory viral panel, and CT head. In the ED, she received Narcan without response. On exam, she is significantly somnolent and minimally responsive to sternal rub. There is minimal air movement on auscultation of lungs even on bipap. Differential includes mixed acute on chronic hypercapneic respiratory failure, obesity hypoventilation syndrome, obstructive sleep apnea, infection, acute on chronic HF exacerbation. Less likely are stroke or toxin, as CT head and U tox are negative. Her profound mixed respiratory acidosis with significant metabolic compensation suggests gradual onset of acute on chronic respiratory failure over at least a few days. The obesity hypoventilation syndrome and obstructive sleep apnea are likely contributing to her condition. In addition, the elevated WBC 14 and neutrophil counts suggests possible bacterial infection-though CXR without findings suggestive of PNA or elevated lactate. This may be early PNA or another source such as GI. Patient is unable to participate in exam. UA negative for infection. Her BNP is elevated which suggests likely acute on chronic HF exacerbation as well. She's on home lasix 60mg BID, and with her bicarb already 49 resuming it will likely worsen this. Her lungs do not sound wet and she has mild 2+ edema of BLE up to shins, but no overt pitting edema. Also is on home O2 for chronic respiratory failure. Plan: -Continue bipap -Repeat ABG -Empiric CAP coverage with ceftriaxone 1g IV daily (day 1/5) -Empiric CAP coverage with azithromycin 500mg IV daily (day 1/3) -Hold on home diuretic for now (2) Metabolic encephalopathy Conclusion/Plan: As above. Some myoclonic jerking. Plan: -Hold home pregabalin, trazodone, and methocarbamol for now (3) Dysphagia Conclusion/Plan: From palliative team note 11/26/23, it appears patient was still waiting for a speech team swallow eval for difficulty swallowing. It is unclear if this has been completed. Given her profound somnolence and encephalopathy, it would be reasonable to consider an NGT. However, NGT not ideal for bipap seal as she is a DNI. As her CO2 has decreased marginally on bipap, will forgo NGT for now. Plan: -NPO -No NGT for now -Hold on oral meds until patient more alert/able to swallow -Bedside swallow eval once patient more alert -Consider speech eval later if needed Qualifiers: Dysphagia type: pharyngeal phase Qualified Code(s): R13.13 - Dysphagia, pharyngeal phase (4) Acute on chronic heart failure Conclusion/Plan: Her last TTE from 01/2023 showed LVEF 50-55%, trace aortic and tricuspid regurgitation, and aortic sclerosis. Her BNP on admission was 526. Lungs with minimal air movement on auscultation on bipap. And lower extremities with mild 2+ edema, no overt pitting edema. Lower suspicion for current severe HF exacerbation. SBP labile, 80s-200s but trending down and oliguric now. Plan: -500cc IV bolus -Hold off on home diuretic for now (5) Obesity hypoventilation syndrome Conclusion/Plan: As above. (6) COPD (chronic obstructive pulmonary disease) Conclusion/Plan: History of COPD. -Continue Duonebs prn Qualifiers: COPD type: chronic bronchitis Chronic bronchitis type: unspecified Qualified Code(s): J42 - Unspecified chronic bronchitis (7) Oliguria Conclusion/Plan: UOP 5-10 cc last few hours. At home she's on lasix 60mg BID. Here, her bicarb is notably elevated at 50 now. And her BP is labile but generally trending down. Plan: -500cc IV bolus as above (8) Electrolyte abnormality Conclusion/Plan: Hypochloremic 94, slightly hyperkalemic 4.9, hypermagnesemia 2.4, mild hypercalcemia 10.6, glucose 204. Plan: -Recheck BMP, Mg, P tmrw -FACILITIES MAINTENANCE ASSISTANT electrolyte protocol (9) Atrial fibrillation Conclusion/Plan: History of atrial fibrillation on Eliquis. Tele currently bradycardia with frequent PACs or slow A fib 50s. Plan: -12 lead EKG -SQ lovenox -Hold home carvedilol for now -Hold home eliquis 5mg BID for now (10) Breast cancer Conclusion/Plan: History of triple negative breast cancer s/p R lumpectomy, chemo, radiation. Not a surgical candiate Previously received adriamycin and cytoxan f/b paclitaxel. Currently on letrozole. Follows palliative and oncology. Plan: -Continue letrozole 2.5 mg daily PO when pt able to tolerate PO (11) GERD (gastroesophageal reflux disease) Conclusion/Plan: History of GERD. Unclear if patient is actively having symptoms. -Consider adding home PPI once pt able to tolerate PO (12) Pressure ulcer Conclusion/Plan: This is to note that patient had stage 3 sacral pressure ulcer prior to admission. Plan: -RN driven wound protocol -Turn q2h -Mobilize as tolerated (13) Ingrown toenail Conclusion/Plan: Follows outpatient podiatry for chronic ingrown toenail(s). Plan: -Continue to monitor (14) Morbid obesity with BMI of 40.0-44.9, adult Conclusion/Plan: Meets criteria for morbid obesity based on BMI. Plan: -Continue to monitor (15) Hyperlipidemia Conclusion/Plan: Takes statin at home. Plan: -Restart home atorvastatin 20 mg daily when pt able to tolerate PO (16) Impaired mobility and ADLs Conclusion/Plan: Significantly impaired mobility at baseline, uses wheelchair and toma lift. Has at least 2 caregivers to assist with ADLs. On home O2 as well. At this time PT/OT not indicated Plan: -Mobilize as indicated (17) Advance directive indicates patient wish for [id number] resuscitation status Conclusion/Plan: POLST in chart from 01/2023 indicates patient's wishes to proceed with CPR but DNI. In the [facility] system, there are only two options for code status-attempt resuscitation or do not attempt resuscitation. DPOA is Dr. Von Butt, her nephew who works at [employer]. Her neighbor Adriana, is a significant support for her. Her sister lives in [place]. She has two caregivers. She follows with palliative care (Wiliam HUI) and oncology (Dr. Juanita Jimenez). PCP Cally Gamboa. Plan: -Code status to reflect attempt CPR but DNI per POLST from 01/2023 in chart - Lab Results Lab results reviewed: Yes Fish Bones: 12/28/23 09:52 12/28/23 09:52 - Diagnostic Imaging Results Diagnostic Imaging Results: positive: Final report reviewed Core Measures - Anticipated LOS I expect patient to be DC'd or transferred within 96 hours.: Yes - DVT/VTE - Prophylaxis VTE/DVT Device ordered at admit?: Yes VTE/DVT Prophylaxis med ordered at admit?: Yes
[2023-12-28] MEDS ORDERED: ONDANSETRON ODT 4 MG TABLET TL PRN (12:33)
[2023-12-28] MEDS ORDERED: ONDANSETRON 4 MG/2 ML VIAL IVP PRN (12:33)
[2023-12-28] MEDS ORDERED: SODIUM CHLORIDE FLUSH 0.9% 10 ML SYRINGE IVP PRN (12:33)
--- NOTE | 2023-12-28 13:41 | PHARMACY PROGRESS NOTE ---
- Best Possible Medication History Admit Date and Time: 12/28/23 1233 Processed by: Pharmacy Medications reviewed in ED?: Yes Patient Interview: Pt unable to participate Secondary Source(s): Pharmacy records, Insurance records As the person ultimately responsible for medication therapy, providers are able to order a medication from an existing home medication list in [facility] via the "Reconcile Routine" prior to Confirmation of that medication by customer support engineer. Such practice is discouraged except when the physician, in their clinical judgment, deems that a medical need exists for a medication without regard to previous use.
[2023-12-28] MEDS: AZITHROMYCIN INJ 500 MG in SODIUM CHLORIDE 0.9% 250 ML IV SCH (13:52)
[2023-12-28] MEDS: SODIUM CHLORIDE 0.9% 1,000 ML IV SCH (13:53)
[2023-12-28] MEDS: cefTRIAXone 1 GM in SODIUM CHLORIDE 0.9% MINIBAG 100 ML IV SCH (13:53)
[2023-12-28 15:51] LABS: ABG HCO3 50.1 mmol/L (22.0-26.0); ABG PO2 92 mmHg (80-100)
[2023-12-28 15:52] LABS: ABG BASE EXCESS 16.4 mmol/L (-2.0-3.0); ABG OXYGEN SATURATION 97 % (94-98)
[2023-12-28 15:53] LABS: ALLEN TEST POSITIVE
[2023-12-28 15:54] LABS: ABG PCO2 131 mmHg (34-45)
[2023-12-28 15:55] LABS: ABG RESPIRATORY RATE 22 b/min; ABG TCO2 54.1 MMOL/L (21.0-29.0)
[2023-12-28] MEDS ORDERED: METOPROLOL 5 MG/5 ML VIAL IVP PRN (16:05)
[2023-12-28] MEDS: SODIUM CHLORIDE 0.9% 500 ML IV ONE (16:10)
[2023-12-28] MEDS: SODIUM CHLORIDE FLUSH 0.9% 10 ML SYRINGE IVP SCH (17:52)
[2023-12-28] MEDS ORDERED: carvediloL 12.5 MG TABLET PO SCH (21:00)
[2023-12-28] MEDS ORDERED: APIXABAN 5 MG TABLET PO SCH (21:00)
[2023-12-29 04:46] LABS: BASOPHILS % (AUTO) 0.1 %; EOSINOPHILS % (AUTO) 0.2 %; HCT - HEMATOCRIT 34.2 % (37.0-47.0); HGB - HEMOGLOBIN 10.1 g/dL (12.0-16.0); LYMPHOCYTES # (AUTO) 0.7 10^3/uL (1.5-3.5); LYMPHOCYTES % (AUTO) 7.1 %; MEAN CORPUSCULAR HEMOGLOBIN 29.8 pg (27.0-31.0); MEAN CORPUSCULAR HGB CONC 29.5 g/dL (32.0-36.0); MEAN CORPUSCULAR VOLUME 100.9 fL (81.0-99.0); MEAN PLATELET VOLUME 11.9 fL (7.9-10.8); MONOCYTES # (AUTO) 0.9 10^3/uL (0.0-1.0); NEUTROPHILS # (AUTO) 7.7 10^3/uL (1.5-6.6); NEUTROPHILS % (AUTO) 82.2 %; PLT - PLATELET COUNT 144 10^3/uL (130-450); RED BLOOD COUNT 3.39 10^6/uL (4.20-5.40); RED CELL DISTRIBUTION WIDTH 13.2 % (12.0-15.0); WHITE BLOOD COUNT 9.3 x10^3/uL (4.8-10.8)
[2023-12-29 04:49] LABS: CALCIUM, IONIZED 1.23 mmol/L (1.15-1.33); VBG PH 7.471 (7.31-7.41)
[2023-12-29 04:56] LABS: MAGNESIUM 2.1 mg/dL (1.7-2.3); PHOSPHORUS 2.2 mg/dL (2.5-5.0)
[2023-12-29 04:59] LABS: ALBUMIN/GLOBULIN RATIO 1.1 (1.0-2.2); ALKALINE PHOSPHATASE 78 IU/L (42-121); ALT ALANINE AMINOTRANSFERASE 34 IU/L (10-60); AST ASPARTATE AMINOTRANSFERASE 21 IU/L (10-42); BILIRUBIN,TOTAL 0.3 mg/dL (0.2-1.0); BUN - BLOOD UREA NITROGEN 30 mg/dL (6-20); CALCIUM 10.1 mg/dL (8.5-10.3); CARBON DIOXIDE - CO2 > 45 mmol/L (21-32); CHLORIDE 101 mmol/L (101-111); CREATININE 0.8 mg/dL (0.6-1.3); GFR - MDRD 69 (>89); GLUCOSE 118 mg/dL (74-104); POTASSIUM 3.8 mmol/L (3.5-4.5); SODIUM 150 mmol/L (135-145); TOTAL PROTEIN 5.7 g/dL (6.4-8.9)
[2023-12-29] MEDS: ZINC OXIDE 20% OINT 30 GM TUBE TOP PRN (06:00)
[2023-12-29 07:00] LABS: ABG HCO3 44.8 mmol/L (22.0-26.0); ABG PH 7.49 (7.35-7.45); ABG PO2 146 mmHg (80-100)
[2023-12-29 07:01] LABS: ABG BASE EXCESS 18.6 mmol/L (-2.0-3.0); ABG OXYGEN SATURATION 98 % (94-98); ALLEN TEST POSITIVE
[2023-12-29 07:03] LABS: ABG PCO2 60 mmHg (34-45); ABG TCO2 46.6 MMOL/L (21.0-29.0)
[2023-12-29] MEDS: IPRATROPIUM/ALBUTEROL 3 ML NEB INH PRN (07:30)
[2023-12-29] MEDS: DEXTROSE 5% 1,000 ML IV SCH (08:16)
[2023-12-29] MEDS: POTASSIUM PHOSPHATE 15 MMOL in SODIUM CHLORIDE 0.9% 250 ML IV ONE (08:31)
[2023-12-29] MEDS: ENOXAPARIN 120 MG/0.8 ML SYRINGE SUBQ SCH ×2 (08:59→20:41)
[2023-12-29] MEDS: METHYLPREDNISOLONE SUCCINATE IV ONE (09:22)
[2023-12-29] MEDS: SODIUM CHLORIDE 0.9% IV ONE (09:22)
[2023-12-29] MEDS: LETROZOLE 2.5 MG PO SCH (09:29)
--- NOTE | 2023-12-29 13:19 | PROVIDER PROGRESS NOTE ---
Assessment/Plan - Problem List (1) Acute respiratory failure with hypoxia and hypercarbia Assessment/Plan: (1) Acute respiratory failure with hypoxia and hypercarbia Conclusion/Plan: --Respiratory acidosis improved significantly with initiation of BiPAP. --Remains on bronchodilator treatment with DuoNeb. Started on IV methylprednisolone. (2) Metabolic encephalopathy Conclusion/Plan: --Improving with resolution of her respiratory acidosis. (3) Dysphagia Conclusion/Plan: --Will attempt to have speech therapy see her while inpatient. (4) Acute on chronic heart failure Conclusion/Plan: --Previous TTE showing LVEF of 50 to 55%. Does not appear to be in an acute CHF exacerbation therefore her home diuretic is currently on hold. (5) Obesity hypoventilation syndrome Conclusion/Plan: As above. (6) COPD (chronic obstructive pulmonary disease) Conclusion/Plan: --Will schedule patient's DuoNeb. (7) Oliguria Conclusion/Plan: --Holding home lasix. Continue to monitor I/O. Renal function is stable. (8) Electrolyte abnormality Conclusion/Plan: --Replace via ICU protocol. (9) Atrial fibrillation Conclusion/Plan: -SQ lovenox -Hold home carvedilol for now -Hold home eliquis 5mg BID for now (10) Breast cancer Conclusion/Plan: History of triple negative breast cancer s/p R lumpectomy, chemo, radiation. Not a surgical candiate Previously received adriamycin and cytoxan f/b paclitaxel. Currently on letrozole. Follows palliative and oncology. Plan: -Continue letrozole 2.5 mg daily PO when pt able to tolerate PO (11) GERD (gastroesophageal reflux disease) Conclusion/Plan: History of GERD. Unclear if patient is actively having symptoms. (12) Pressure ulcer Conclusion/Plan: This is to note that patient had stage 3 sacral pressure ulcer prior to admission. Plan: -RN driven wound protocol -Turn q2h -Mobilize as tolerated (13) Ingrown toenail Conclusion/Plan: Follows outpatient podiatry for chronic ingrown toenail(s). Plan: -Continue to monitor (14) Morbid obesity with BMI of 40.0-44.9, adult Conclusion/Plan: Meets criteria for morbid obesity based on BMI. Plan: -Continue to monitor (15) Hyperlipidemia Conclusion/Plan: Takes statin at home. Plan: -Restart home atorvastatin 20 mg daily when pt able to tolerate PO (16) Impaired mobility and ADLs Conclusion/Plan: Significantly impaired mobility at baseline, uses wheelchair and jeanne lift. Has at least 2 caregivers to assist with ADLs. On home O2 as well. At this time PT/OT not indicated Plan: -Mobilize as indicated (17) Advance directive indicates patient wish for [id number] resuscitation status Conclusion/Plan: POLST in chart from 01/2023 indicates patient's wishes to proceed with CPR but DNI. In the [facility] system, there are only two options for code status-attempt resuscitation or do not attempt resuscitation. DPOA is Dr. Von Butt, her nephew who works at [employer]. Her neighbor Adriana, is a significant support for her. Her sister lives in [place]. She has two caregivers. She follows with palliative care (Wiliam HUI) and oncology (Dr. Juanita Jimenez). PCP Cally Gamboa. - Current Meds Current Meds: Current Medications Generic Name Dose Route Start Last Admin Trade Name Freq PRN Reason Stop Dose Admin Albuterol/Ipratropium 3 ml 12/28/23 12:49 12/29/23 07:30 Ipratropium/Albuterol 3 Ml Neb INH 3 ml Q4HR PRN Administration Wheezing Ceftriaxone Sodium 1 gm/ 100 mls @ 200 mls/hr 12/28/23 13:00 12/29/23 09:29 Sodium Chloride IV 01/01/24 09:29 Infused DAILY TAI Infusion Azithromycin 500 mg/ Sodium 250 mls @ 250 mls/hr 12/28/23 13:00 12/28/23 14:59 Chloride IV 12/30/23 13:59 Infused ONCE TAI Infusion Dextrose 1,000 mls @ 100 mls/hr 12/29/23 07:00 12/29/23 08:16 D5w IV 100 mls/hr .Q10H TAI Administration Multi-Ingredient Ointment 1 applic 12/28/23 15:17 12/29/23 06:00 Zinc Oxide 20% Oint 30 Gm Tube TOP 1 applic PRN PRN Administration Skin Care Letrozole 2.5 Mg 1 each 12/29/23 09:00 12/29/23 09:29 PO Not Given DAILY TAI Sodium Chloride 10 ml 12/28/23 17:00 12/29/23 09:29 Sodium Chloride Flush 0.9% 10 Ml Syringe IVP 10 ml 0100,0900,1700 TAI Administration - Lab Result Fish Bone Diagrams: 12/29/23 04:29 12/29/23 04:29 - Additional Planning My Orders: My Active Orders 12/28/23 19:14 RT - Obtain Arterial Specimen [RC] .ONCE 12/29/23 07:00 Dextrose 5% [D5w] 1,000 ml IV 100 mls/hr 12/29/23 07:31 RT [Nebulizer/MDI Tx.] [RC] .q4prn 12/29/23 21:00 Enoxaparin [Lovenox] 120 mg SUBQ BID 12/30/23 05:00 CBC [CBC - COMP BLD CT W/AUTO DIFF] [HEME] DAILYLAB COMPREHENSIVE METABOLIC PANEL [CHEM] DAILYLAB MAGNESIUM [CHEM] DAILYLAB PHOSPHORUS [CHEM] DAILYLAB 12/31/23 05:00 CBC [CBC - COMP BLD CT W/AUTO DIFF] [HEME] DAILYLAB COMPREHENSIVE METABOLIC PANEL [CHEM] DAILYLAB MAGNESIUM [CHEM] DAILYLAB PHOSPHORUS [CHEM] DAILYLAB 01/01/24 05:00 CBC [CBC - COMP BLD CT W/AUTO DIFF] [HEME] DAILYLAB COMPREHENSIVE METABOLIC PANEL [CHEM] DAILYLAB MAGNESIUM [CHEM] DAILYLAB PHOSPHORUS [CHEM] DAILYLAB 01/02/24 05:00 CBC [CBC - COMP BLD CT W/AUTO DIFF] [HEME] DAILYLAB COMPREHENSIVE METABOLIC PANEL [CHEM] DAILYLAB MAGNESIUM [CHEM] DAILYLAB PHOSPHORUS [CHEM] DAILYLAB 01/03/24 05:00 CBC [CBC - COMP BLD CT W/AUTO DIFF] [HEME] DAILYLAB COMPREHENSIVE METABOLIC PANEL [CHEM] DAILYLAB MAGNESIUM [CHEM] DAILYLAB PHOSPHORUS [CHEM] DAILYLAB 01/04/24 05:00 CBC [CBC - COMP BLD CT W/AUTO DIFF] [HEME] DAILYLAB COMPREHENSIVE METABOLIC PANEL [CHEM] DAILYLAB MAGNESIUM [CHEM] DAILYLAB PHOSPHORUS [CHEM] DAILYLAB Subjective - Subjective Patient Reports: Feeling Better (Confusion has improved. Remains on BIPAP.) Objective Vital Signs: Vital Signs - 24 hr 12/28/23 12/28/23 12/28/23 13:35 13:50 14:07 Temperature Heart Rate 60 Heart Rate [ 57 L Monitoring electrodes] Respiratory 24 Rate Blood Pressure [Left Radial artery] Blood Pressure 207/110 H [Right Brachial artery] O2 Saturation 98 If not protocol 2 : Oxygen Flow, liters/minute 12/28/23 12/28/23 12/28/23 14:15 14:16 14:30 Temperature 35.9 C L Heart Rate Heart Rate [ 60 56 L Monitoring electrodes] Respiratory 20 21 Rate Blood Pressure 121/103 H 133/122 H [Left Radial artery] Blood Pressure [Right Brachial artery] O2 Saturation 96 99 If not protocol : Oxygen Flow, liters/minute 12/28/23 12/28/23 12/28/23 14:48 15:00 15:45 Temperature Heart Rate 54 L Heart Rate [ 59 L 56 L Monitoring electrodes] Respiratory 16 18 Rate Blood Pressure 82/72 L 102/66 [Left Radial artery] Blood Pressure [Right Brachial artery] O2 Saturation 99 96 If not protocol : Oxygen Flow, liters/minute 12/28/23 12/28/23 12/28/23 16:00 17:00 18:00 Temperature Heart Rate Heart Rate [ 53 L 56 L Monitoring electrodes] Respiratory 54 H 21 26 H Rate Blood Pressure 155/95 H 136/92 H 150/122 H [Left Radial artery] Blood Pressure [Right Brachial artery] O2 Saturation 99 98 98 If not protocol : Oxygen Flow, liters/minute 12/28/23 12/28/23 12/28/23 18:51 18:55 19:00 Temperature 37.2 C Heart Rate 56 L Heart Rate [ 57 L Monitoring electrodes] Respiratory 16 Rate Blood Pressure 189/147 H [Left Radial artery] Blood Pressure [Right Brachial artery] O2 Saturation 96 If not protocol : Oxygen Flow, liters/minute 12/28/23 12/28/23 12/28/23 20:00 21:00 21:20 Temperature 37.4 C Heart Rate 55 L Heart Rate [ 62 55 L Monitoring electrodes] Respiratory 18 24 Rate Blood Pressure 127/59 L 109/46 L [Left Radial artery] Blood Pressure [Right Brachial artery] O2 Saturation 98 96 If not protocol : Oxygen Flow, liters/minute 12/28/23 12/28/23 12/28/23 22:00 23:00 23:35 Temperature Heart Rate 51 L Heart Rate [ 53 L 52 L Monitoring electrodes] Respiratory 28 H 25 H Rate Blood Pressure 115/48 L 109/47 L [Left Radial artery] Blood Pressure [Right Brachial artery] O2 Saturation 94 95 If not protocol : Oxygen Flow, liters/minute 12/29/23 12/29/23 12/29/23 00:00 01:00 01:20 Temperature Heart Rate 56 L Heart Rate [ 64 60 Monitoring electrodes] Respiratory 26 H 19 Rate Blood Pressure 109/75 119/87 H [Left Radial artery] Blood Pressure [Right Brachial artery] O2 Saturation 96 96 If not protocol : Oxygen Flow, liters/minute 12/29/23 12/29/23 12/29/23 02:00 03:00 03:05 Temperature 37.9 C 37.5 C Heart Rate 54 L Heart Rate [ 58 L 51 L Monitoring electrodes] Respiratory 18 26 H Rate Blood Pressure 111/87 H 108/45 L [Left Radial artery] Blood Pressure [Right Brachial artery] O2 Saturation 97 96 If not protocol : Oxygen Flow, liters/minute 12/29/23 12/29/23 12/29/23 04:00 05:00 06:00 Temperature Heart Rate Heart Rate [ 47 L 51 L 64 Monitoring electrodes] Respiratory 14 20 22 Rate Blood Pressure 106/54 L 109/47 L 123/80 [Left Radial artery] Blood Pressure [Right Brachial artery] O2 Saturation 97 97 100 If not protocol : Oxygen Flow, liters/minute 12/29/23 12/29/23 12/29/23 07:00 07:22 07:28 Temperature 37.2 C Heart Rate 60 Heart Rate [ 58 L Monitoring electrodes] Respiratory 18 Rate Blood Pressure 106/70 [Left Radial artery] Blood Pressure [Right Brachial artery] O2 Saturation 100 If not protocol : Oxygen Flow, liters/minute 12/29/23 12/29/23 12/29/23 07:32 08:00 09:00 Temperature Heart Rate 68 Heart Rate [ 60 60 Monitoring electrodes] Respiratory 22 24 23 Rate Blood Pressure 107/85 H 148/70 H [Left Radial artery] Blood Pressure [Right Brachial artery] O2 Saturation 98 95 If not protocol : Oxygen Flow, liters/minute 12/29/23 12/29/23 12/29/23 10:00 11:00 12:00 Temperature Heart Rate Heart Rate [ 59 L 59 L 60 Monitoring electrodes] Respiratory 16 19 18 Rate Blood Pressure 143/77 H 120/86 H 147/71 H [Left Radial artery] Blood Pressure [Right Brachial artery] O2 Saturation 95 21 L 97 If not protocol : Oxygen Flow, liters/minute Oxygen O2 Source [Without Activity] Nasal cannula O2 Source [With Activity] Nasal cannula O2 Source BIPAP I&O (Last 24 Hrs): Intake and Output Totals x24h 12/27/23 12/28/23 12/29/23 23:59 23:59 23:59 Intake Total 6849.460 1619 Output Total 367 365 Balance 1399.667 835 General: Alert, Oriented x3, Cooperative Cardiovascular: Regular rate Respiratory: Wheezes - Results Results: Laboratory Results WBC 9.3 x10^3/uL (4.8-10.8) 12/29/23 04: RBC 3.39 10^6/uL (4.20-5.40) L 12/29/23 04: Hgb 10.1 g/dL (12.0-16.0) L 12/29/23 04: Hct 34.2 % (37.0-47.0) L 12/29/23 04: MCV 100.9 fL (81.0-99.0) H 12/29/23 04: MCH 29.8 pg (27.0-31.0) 12/29/23 04: MCHC 29.5 g/dL (32.0-36.0) L 12/29/23 04: RDW 13.2 % (12.0-15.0) 12/29/23 04: Plt Count 144 10^3/uL (130-450) 12/29/23 04: MPV 11.9 fL (7.9-10.8) H 12/29/23 04:29 Neut # (Auto) 7.7 10^3/uL (1.5-6.6) H 12/29/23 04:29 Lymph # (Auto) 0.7 10^3/uL (1.5-3.5) L 12/29/23 04: [place] # (Auto) 0.9 10^3/uL (0.0-1.0) 12/29/23 04:29 Eos # (Auto) 0.0 10^3/uL (0.0-0.7) 12/29/23 04:29 Baso # (Auto) 0.0 10^3/uL (0.0-0.1) 12/29/23 04:29 Absolute Nucleated RBC 0.00 x10^3/uL 12/29/23 04:29 Nucleated RBC % 0.0 /100WBC 12/29/23 04:29 Bld Gas Analysis Time 0655 12/29/23 06:47 Sample Site RIGHT RADIAL 12/29/23 06:47 ABG pH 7.49 (7.35-7.45) H 12/29/23 06:47 ABG pCO2 60 mmHg (34-45) H* 12/29/23 06:47 ABG pO2 146 mmHg (80-100) H 12/29/23 06:47 ABG HCO3 44.8 mmol/L (22.0-26.0) H 12/29/23 06:47 ABG Total CO2 46.6 MMOL/L (21.0-29.0) H* 12/29/23 06:47 ABG O2 Saturation 98 % (94-98) 12/29/23 06:47 ABG Base Excess 18.6 mmol/L (-2.0-3.0) H 12/29/23 06:47 Lester Test POSITIVE 12/29/23 06:47 VBG pH 7.471 (7.31-7.41) H 12/29/23 04:29 Ionized Calcium 1.23 mmol/L (1.15-1.33) 12/29/23 04:29 Respiration Rate 22 b/min 12/28/23 15:15 O2 Delivery Device BiPAP 12/29/23 06:47 FiO2 60.00 12/29/23 06:47 PEEP 5 cmH2O 12/29/23 06:47 EPAP 5 cmH2O 12/28/23 15:15 IPAP 18 cmH2O 12/29/23 06:47 Sodium 150 mmol/L (135-145) H 12/29/23 04:29 Potassium 3.8 mmol/L (3.5-4.5) 12/29/23 04:29 Chloride 101 mmol/L (101-111) 12/29/23 04:29 Carbon Dioxide > 45 mmol/L (21-32) H* 12/29/23 04:29 Anion Gap TNP 12/29/23 04:29 BUN 30 mg/dL (6-20) H 12/29/23 04:29 Creatinine 0.8 mg/dL (0.6-1.3) 05/28/24 04:29 Estimated GFR (MDRD) 69 (>89) L 12/29/23 04:29 Glucose 118 mg/dL (74-104) H 12/29/23 04:29 POC Whole Bld Glucose 191 mg/dL (70 - 100) H 12/28/23 09:17 Lactic Acid 0.9 mmol/L (0.5-2.2) 12/28/23 09:52 Calcium 10.1 mg/dL (8.5-10.3) 12/29/23 04:29 Phosphorus 2.2 mg/dL (2.5-5.0) L 12/29/23 04:29 Magnesium 2.1 mg/dL (1.7-2.3) 12/29/23 04:29 Total Bilirubin 0.3 mg/dL (0.2-1.0) 12/29/23 04:29 AST 21 IU/L (10-42) 12/29/23 04:29 ALT 34 IU/L (10-60) 12/29/23 04:29 Alkaline Phosphatase 78 IU/L (42-121) 12/29/23 04:29 B-Natriuretic Peptide 526 pg/mL (5-100) H 12/28/23 09:52 Total Protein 5.7 g/dL (6.4-8.9) L 12/29/23 04:29 Albumin 3.0 g/dL (3.2-5.5) L 12/29/23 04:29 Globulin 2.7 g/dL (2.1-4.2) 12/29/23 04:29 Albumin/Globulin Ratio 1.1 (1.0-2.2) 12/29/23 04:29 Lipase 16 U/L (11-82) 12/28/23 09:52 Vitamin B12 541 pg/mL (180-914) 12/29/23 04:29 Procalcitonin Immunoas 0.23 ng/mL (<0.5) 12/29/23 04:29 Urine Color YELLOW 12/28/23 10:13 Urine Clarity CLEAR (CLEAR) 12/28/23 10:13 Urine pH 5.5 PH (5.0-7.5) 12/28/23 10:13 Ur Specific [place] 1.015 (1.002-1.030) 12/28/23 10:13 Urine Protein NEGATIVE mg/dL (NEGATIVE) 12/28/23 10:13 Urine Glucose (UA) NEGATIVE mg/dL (NEGATIVE) 12/28/23 10:13 Urine Ketones NEGATIVE mg/dL (NEGATIVE) 12/28/23 10:13 Urine Occult Blood LARGE (NEGATIVE) H 12/28/23 10:13 Urine Nitrite NEGATIVE (NEGATIVE) 12/28/23 10:13 Urine Bilirubin NEGATIVE (NEGATIVE) 12/28/23 10:13 Urine Urobilinogen 0.2 (NORMAL) E.U./dL (NORMAL) 12/28/23 10:13 Ur Leukocyte Esterase NEGATIVE (NEGATIVE) 12/28/23 10:13 Urine RBC 0-5 /HPF (0-5) 12/28/23 10:13 Urine WBC 0-3 /HPF (0-5) 12/28/23 10:13 Ur Epithelial Cells RARE Transitional /HPF (<= Few) 12/28/23 10:13 Ur Squamous Epith Cells FEW Squamous (<= Few) 12/28/23 10:13 Urine Bacteria Few /HPF (None Seen) 12/28/23 10:13 Urine Casts 0-2 Hyaline Casts /LPF 12/28/23 10:13 Ur Microscopic Review INDICATED 12/28/23 10:13 Urine Culture Comments NOT INDICATED 12/28/23 10:13 Nasal Adenovirus (PCR) NOT DETECTED 12/28/23 10:25 Nasal B. parapertussis DNA (PCR) NOT DETECTED 12/28/23 10:25 Nasal Coronavir 229E PCR NOT DETECTED 12/28/23 10:25 Nasal Coronavir HKU1 PCR NOT DETECTED 12/28/23 10:25 Nasal Coronavir NL63 PCR NOT DETECTED 12/28/23 10:25 Nasal Coronavir OC43 PCR NOT DETECTED 12/28/23 10:25 Nasal Enterovir/Rhinovir PCR NOT DETECTED 12/28/23 10:25 Nasal Influenza B PCR NOT DETECTED 12/28/23 10:25 Nasal Influenza A PCR NOT DETECTED 12/28/23 10:25 Nasal Parainfluen 1 PCR NOT DETECTED 12/28/23 10:25 Nasal Parainfluen 2 PCR NOT DETECTED 12/28/23 10:25 Nasal Parainfluen 3 PCR NOT DETECTED 12/28/23 10:25 Nasal Parainfluen 4 PCR NOT DETECTED 12/28/23 10:25 Nasal RSV (PCR) NOT DETECTED 12/28/23 10:25 Nasal Screen MRSA (PCR) NEGATIVE (NEGATIVE) 12/28/23 13:40 Nasal B.pertussis DNA PCR NOT DETECTED 12/28/23 10:25 Nasal C.pneumoniae (PCR) NOT DETECTED 12/28/23 10:25 Ankit Human Metapneumo PCR NOT DETECTED 12/28/23 10:25 Nasal M.pneumoniae (PCR) NOT DETECTED 12/28/23 10:25 Nasal SARS-CoV-2 (PCR) NOT DETECTED 12/28/23 10:25 Salicylates < 1.5 mg/dL 12/28/23 09:52 Urine Opiates Screen NEGATIVE (NEGATIVE) 12/28/23 10:13 Ur Buprenorphine Scrn NEGATIVE (NEGATIVE) 12/28/23 10:13 Ur Oxycodone Screen NEGATIVE (NEGATIVE) 12/28/23 10:13 Urine Methadone Screen NEGATIVE (NEGATIVE) 12/28/23 10:13 Acetaminophen 1.7 ug/mL 12/28/23 09:52 Ur Barbiturates Screen NEGATIVE (NEGATIVE) 12/28/23 10:13 Ur Tricyclics Screen NEGATIVE (NEGATIVE) 12/28/23 10:13 Ur Phencyclidine Scrn NEGATIVE (NEGATIVE) 12/28/23 10:13 Ur Amphetamine Screen NEGATIVE (NEGATIVE) 12/28/23 10:13 U Methamphetamines Scrn NEGATIVE (NEGATIVE) 12/28/23 10:13 U Benzodiazepines Scrn NEGATIVE (NEGATIVE) 12/28/23 10:13 Urine Cocaine Screen NEGATIVE (NEGATIVE) 12/28/23 10:13 U Cannabinoids Screen NEGATIVE (NEGATIVE) 12/28/23 10:13 Ur Drug Screen Comment CUTOFF CONC BELOW: 12/28/23 10:13 Ethyl Alcohol < 10.0 mg/dL 12/28/23 09:52 - Procedures Procedures: Procedures CATARAC PHACOEMULS/ASPIR (04/27/14) INSERT LENS AT CATAR EXT (04/27/14) INSERTION OF INFUSION DEV INTO SUP VENA CAVA, PERC APPROACH (06/02/22) REPLACEMENT OF LEFT LENS WITH SYNTH SUB, PERC APPROACH (09/25/16) Sepsis Event Note (H) - Evaluation Current Stage of Sepsis: Sepsis Possible source of Sepsis: positive: Pulmonary - Sepsis Criteria Sepsis Criteria: Recorded Respiratory Rate greater than 20, Respiratory: Increasing oxygen requirements, WBC count greater than 12,000 or less than 4000, PRODUCTION TEAM ADVISOR: altered consciousness (unrelated to primary neuro pathology)
[2023-12-29] MEDS: ZINC OXIDE 12% OINT 57 GM TUBE TOP PRN (14:13)
[2023-12-29] MEDS: carvediloL 3.125 MG TABLET PO SCH (16:14)
[2023-12-29] MEDS: FUROSEMIDE 40 MG TABLET PO SCH (16:15)
[2023-12-29] MEDS ORDERED: IPRATROPIUM/ALBUTEROL 3 ML NEB INH SCH (17:00)
[2023-12-29] MEDS: IPRATROPIUM/ALBUTEROL 3 ML NEB INH SCH (18:12)
[2023-12-29 20:28] LABS: PHOSPHORUS 1.9 mg/dL (2.5-5.0); POTASSIUM 3.4 mmol/L (3.5-4.5)
[2023-12-29] MEDS: ATORVASTATIN 10 MG TABLET PO SCH (20:41)
[2023-12-29] MEDS: ACETAMINOPHEN 325 MG TABLET PO PRN (20:41)
[2023-12-29] MEDS ORDERED: carvediloL 12.5 MG TABLET PO SCH (21:00)
[2023-12-29] MEDS: NEUTRA-PHOS 250 MG TABLET PO SCH (21:25)
[2023-12-30 04:42] LABS: BASOPHILS % (AUTO) 0.1 %; EOSINOPHILS % (AUTO) 0.3 %; HCT - HEMATOCRIT 33.9 % (37.0-47.0); HGB - HEMOGLOBIN 10.4 g/dL (12.0-16.0); LYMPHOCYTES % (AUTO) 11.9 %; MEAN CORPUSCULAR HEMOGLOBIN 30.1 pg (27.0-31.0); MEAN CORPUSCULAR HGB CONC 30.7 g/dL (32.0-36.0); MEAN CORPUSCULAR VOLUME 98.3 fL (81.0-99.0); MEAN PLATELET VOLUME 11.5 fL (7.9-10.8); MONOCYTES # (AUTO) 0.8 10^3/uL (0.0-1.0); MONOCYTES % (AUTO) 9.5 %; NEUTROPHILS # (AUTO) 6.2 10^3/uL (1.5-6.6); NEUTROPHILS % (AUTO) 77.6 %; PLT - PLATELET COUNT 146 10^3/uL (130-450); RED BLOOD COUNT 3.45 10^6/uL (4.20-5.40); RED CELL DISTRIBUTION WIDTH 13.8 % (12.0-15.0)
[2023-12-30 04:44] LABS: CALCIUM, IONIZED 1.19 mmol/L (1.15-1.33); VBG PH 7.524 (7.31-7.41)
[2023-12-30 04:57] LABS: MAGNESIUM 1.9 mg/dL (1.7-2.3); PHOSPHORUS 2.3 mg/dL (2.5-5.0)
[2023-12-30 05:05] LABS: ALBUMIN 3.1 g/dL (3.2-5.5); ALBUMIN/GLOBULIN RATIO 1.2 (1.0-2.2); BILIRUBIN,TOTAL 0.3 mg/dL (0.2-1.0); CALCIUM 9.8 mg/dL (8.5-10.3); CREATININE 0.7 mg/dL (0.6-1.3); POTASSIUM 2.9 mmol/L (3.5-4.5); TOTAL PROTEIN 5.7 g/dL (6.4-8.9)
[2023-12-30] MEDS: PANTOPRAZOLE 40 MG TABLET PO SCH (06:26)
--- NOTE | 2023-12-30 08:19 | PROVIDER PROGRESS NOTE ---
Assessment/Plan - Problem List (1) Acute respiratory failure with hypoxia and hypercarbia Assessment/Plan: (1) Acute respiratory failure with hypoxia and hypercarbia Conclusion/Plan: --Respiratory acidosis improved significantly with initiation of BiPAP. --Remains on bronchodilator treatment with DuoNeb. Started on IV methylprednisolone. (2) Metabolic encephalopathy Conclusion/Plan: --Improving with resolution of her respiratory acidosis. (3) Dysphagia Conclusion/Plan: --Will attempt to have speech therapy see her while inpatient. (4) Acute on chronic heart failure Conclusion/Plan: --Previous TTE showing LVEF of 50 to 55%. Does not appear to be in an acute CHF exacerbation therefore her home diuretic is currently on hold. (5) Obesity hypoventilation syndrome Conclusion/Plan: As above. (6) COPD (chronic obstructive pulmonary disease) Conclusion/Plan: --Will schedule patient's DuoNeb. (7) Oliguria Conclusion/Plan: --Holding home lasix. Continue to monitor I/O. Renal function is stable. (8) Electrolyte abnormality Conclusion/Plan: --Replace via ICU protocol. (9) Atrial fibrillation Conclusion/Plan: -SQ lovenox -Hold home carvedilol for now -Hold home eliquis 5mg BID for now (10) Breast cancer Conclusion/Plan: History of triple negative breast cancer s/p R lumpectomy, chemo, radiation. Not a surgical candiate Previously received adriamycin and cytoxan f/b paclitaxel. Currently on letrozole. Follows palliative and oncology. Plan: -Continue letrozole 2.5 mg daily PO when pt able to tolerate PO (11) GERD (gastroesophageal reflux disease) Conclusion/Plan: History of GERD. Unclear if patient is actively having symptoms. (12) Pressure ulcer Conclusion/Plan: This is to note that patient had stage 3 sacral pressure ulcer prior to admission. Plan: -RN driven wound protocol -Turn q2h -Mobilize as tolerated (13) Ingrown toenail Conclusion/Plan: Follows outpatient podiatry for chronic ingrown toenail(s). Plan: -Continue to monitor (14) Morbid obesity with BMI of 40.0-44.9, adult Conclusion/Plan: Meets criteria for morbid obesity based on BMI. Plan: -Continue to monitor (15) Hyperlipidemia Conclusion/Plan: Takes statin at home. Plan: -Restart home atorvastatin 20 mg daily when pt able to tolerate PO (16) Impaired mobility and ADLs Conclusion/Plan: Significantly impaired mobility at baseline, uses wheelchair and jeanne lift. Has at least 2 caregivers to assist with ADLs. On home O2 as well. At this time PT/OT not indicated Plan: -Mobilize as indicated (17) Advance directive indicates patient wish for [id number] resuscitation status Conclusion/Plan: POLST in chart from 01/2023 indicates patient's wishes to proceed with CPR but DNI. In the [employer] system, there are only two options for code status-attempt resuscitation or do not attempt resuscitation. DPOA is Dr. Von Butt, her nephew who works at [employer] [employer] [facility]. Her neighbor Adrinaa, is a significant support for her. Her sister lives in [place]. She has two caregivers. She follows with palliative care (Wiliam HUI) and oncology (Dr. Juanita Jimenez). PCP Cally Gamboa. Dispo: ICU. Goal is to wean off of BiPAP. - Current Meds Current Meds: Current Medications Generic Name Dose Route Start Last Admin Trade Name Freq PRN Reason Stop Dose Admin Acetaminophen 650 mg 12/28/23 12:33 12/30/23 05:46 Acetaminophen 325 Mg Tablet PO 650 mg Q4HR PRN Administration Pain 1 to 4, or Fever Albuterol/Ipratropium 3 ml 12/29/23 19:00 12/30/23 05:51 Ipratropium/Albuterol 3 Ml Neb INH 3 ml RTQ4H TAI Administration Atorvastatin Calcium 20 mg 12/29/23 21:00 12/29/23 20:41 Atorvastatin 10 Mg Tablet PO 20 mg QPM TAI Administration Carvedilol 6.25 mg 12/29/23 15:00 12/29/23 20:41 Carvedilol 3.125 Mg Tablet PO 6.25 mg BID TAI Administration Enoxaparin Sodium 120 mg 12/29/23 21:00 12/29/23 20:41 Enoxaparin 120 Mg/0.8 Ml Syringe SUBQ 120 mg BID TAI Administration Furosemide 60 mg 12/29/23 15:00 12/30/23 05:46 Furosemide 40 Mg Tablet PO 60 mg BIDDIURETIC TAI Administration Ceftriaxone Sodium 1 gm/ 100 mls @ 200 mls/hr 12/28/23 13:00 12/29/23 09:29 Sodium Chloride IV 01/01/24 09:29 Infused DAILY TAI Infusion Azithromycin 500 mg/ Sodium 250 mls @ 250 mls/hr 12/28/23 13:00 12/29/23 13:14 Chloride IV 12/30/23 13:59 250 mls/hr ONCE TAI Administration Multi-Ingredient Ointment 1 applic 12/28/23 15:17 12/29/23 14:13 Zinc Oxide 12% Oint 57 Gm Tube TOP 1 applic PRN PRN Administration Skin Care Multi-Ingredient Ointment 1 applic 12/28/23 15:17 12/30/23 05:48 Zinc Oxide 20% Oint 30 Gm Tube TOP 1 applic PRN PRN Administration Skin Care Pantoprazole Sodium 40 mg 12/30/23 07:00 12/30/23 06:26 Pantoprazole 40 Mg Tablet PO 40 mg QDAC TAI Administration Letrozole 2.5 Mg 1 each 12/29/23 09:00 12/29/23 09:29 PO Not Given DAILY TAI Sodium Chloride 10 ml 12/28/23 17:00 12/30/23 05:51 Sodium Chloride Flush 0.9% 10 Ml Syringe IVP Not Given 0100,0900,1700 TAI - Lab Result Fish Bone Diagrams: 12/30/23 04:32 12/30/23 04:32 - Additional Planning My Orders: My Active Orders 12/29/23 07:31 RT [Nebulizer/MDI Tx.] [RC] .q4prn 12/29/23 15:00 Furosemide [Lasix] 60 mg PO BIDDIURETIC carvediloL [Coreg] 6.25 mg PO BID 12/29/23 19:00 Ipratropium/Albuterol [Duoneb] 3 ml INH RTQ4H 12/29/23 21:00 Atorvastatin [Lipitor] 20 mg PO QPM Enoxaparin [Lovenox] 120 mg SUBQ BID 12/30/23 07:00 Pantoprazole [Protonix] 40 mg PO QDAC 12/30/23 09:00 Potassium Chloride [K-Dur] 40 meq PO BID 12/31/23 05:00 CBC [CBC - COMP BLD CT W/AUTO DIFF] [HEME] DAILYLAB COMPREHENSIVE METABOLIC PANEL [CHEM] DAILYLAB MAGNESIUM [CHEM] DAILYLAB PHOSPHORUS [CHEM] DAILYLAB 01/01/24 05:00 CBC [CBC - COMP BLD CT W/AUTO DIFF] [HEME] DAILYLAB COMPREHENSIVE METABOLIC PANEL [CHEM] DAILYLAB MAGNESIUM [CHEM] DAILYLAB PHOSPHORUS [CHEM] DAILYLAB 01/02/24 05:00 CBC [CBC - COMP BLD CT W/AUTO DIFF] [HEME] DAILYLAB COMPREHENSIVE METABOLIC PANEL [CHEM] DAILYLAB MAGNESIUM [CHEM] DAILYLAB PHOSPHORUS [CHEM] DAILYLAB 01/03/24 05:00 CBC [CBC - COMP BLD CT W/AUTO DIFF] [HEME] DAILYLAB COMPREHENSIVE METABOLIC PANEL [CHEM] DAILYLAB MAGNESIUM [CHEM] DAILYLAB PHOSPHORUS [CHEM] DAILYLAB 01/04/24 05:00 CBC [CBC - COMP BLD CT W/AUTO DIFF] [HEME] DAILYLAB COMPREHENSIVE METABOLIC PANEL [CHEM] DAILYLAB MAGNESIUM [CHEM] DAILYLAB PHOSPHORUS [CHEM] DAILYLAB Subjective - Subjective Patient Reports: Feeling Better, Resting Comfortably, Other (Remains on BiPAP.) Objective Vital Signs: Vital Signs - 24 hr 12/29/23 12/29/23 12/29/23 09:00 10:00 11:00 Temperature Heart Rate Heart Rate [ 60 59 L 59 L Monitoring electrodes] Respiratory 23 16 19 Rate Blood Pressure [Left Brachial artery] Blood Pressure 148/70 H 143/77 H 120/86 H [Left Radial artery] O2 Saturation 95 95 21 L 12/29/23 12/29/23 12/29/23 12:00 13:00 13:24 Temperature Heart Rate 62 Heart Rate [ 60 Monitoring electrodes] Respiratory 18 28 H Rate Blood Pressure 180/72 H [Left Brachial artery] Blood Pressure 147/71 H [Left Radial artery] O2 Saturation 97 98 12/29/23 12/29/23 12/29/23 14:00 15:00 16:00 Temperature 37.4 C Heart Rate Heart Rate [ 64 59 L 64 Monitoring electrodes] Respiratory 18 15 21 Rate Blood Pressure 191/75 H [Left Brachial artery] Blood Pressure 187/72 H 177/93 H [Left Radial artery] O2 Saturation 99 95 95 12/29/23 12/29/23 12/29/23 17:00 18:00 18:12 Temperature Heart Rate 89 Heart Rate [ 62 60 Monitoring electrodes] Respiratory 18 18 18 Rate Blood Pressure [Left Brachial artery] Blood Pressure 156/86 H 135/122 H [Left Radial artery] O2 Saturation 96 98 12/29/23 12/29/23 12/29/23 18:14 19:00 20:00 Temperature 36.8 C Heart Rate 57 L 62 Heart Rate [ 58 L 60 Monitoring electrodes] Respiratory 16 24 Rate Blood Pressure 151/46 H [Left Brachial artery] Blood Pressure 143/117 H [Left Radial artery] O2 Saturation 94 100 12/29/23 12/29/23 12/29/23 21:00 22:00 23:00 Temperature Heart Rate Heart Rate [ 61 58 L 66 Monitoring electrodes] Respiratory 25 H 16 18 Rate Blood Pressure 140/96 H 137/48 H 136/112 H [Left Brachial artery] Blood Pressure [Left Radial artery] O2 Saturation 95 96 95 12/29/23 12/30/23 12/30/23 23:30 00:00 01:00 Temperature 36.8 C Heart Rate 55 L Heart Rate [ 58 L 52 L Monitoring electrodes] Respiratory 19 26 H Rate Blood Pressure 144/79 H 160/87 H [Left Brachial artery] Blood Pressure [Left Radial artery] O2 Saturation 96 95 12/30/23 12/30/23 12/30/23 02:00 02:15 03:00 Temperature 36.4 C L Heart Rate 52 L Heart Rate [ 53 L 45 L Monitoring electrodes] Respiratory 19 15 Rate Blood Pressure 154/94 H 150/57 H [Left Brachial artery] Blood Pressure [Left Radial artery] O2 Saturation 95 96 12/30/23 12/30/23 12/30/23 04:00 05:00 05:50 Temperature Heart Rate 77 Heart Rate [ 61 58 L Monitoring electrodes] Respiratory 18 20 23 Rate Blood Pressure 162/81 H 169/78 H [Left Brachial artery] Blood Pressure [Left Radial artery] O2 Saturation 100 99 12/30/23 12/30/23 12/30/23 06:00 07:00 08:11 Temperature Heart Rate 58 L Heart Rate [ 81 64 Monitoring electrodes] Respiratory 27 H 14 Rate Blood Pressure 151/79 H 150/75 H [Left Brachial artery] Blood Pressure [Left Radial artery] O2 Saturation 96 96 Oxygen O2 Source [Without Activity] Nasal cannula O2 Source [With Activity] Nasal cannula O2 Source BIPAP I&O (Last 24 Hrs): Intake and Output Totals x24h 12/28/23 12/29/23 12/30/23 23:59 23:59 23:59 Intake Total 9623.399 4198 1258 Output Total 367 1045 375 Balance 2922.343 2133 883 General: Alert, Oriented x3, Cooperative, No acute distress Cardiovascular: Regular rate, Normal S1, Normal S2, No murmurs Respiratory: Chest non-tender, No respiratory distress, Breath sounds nml Abdomen: Normal bowel sounds, Soft, No tenderness, No hepatospenomegaly, No masses - Results Results: Laboratory Results WBC 8.0 x10^3/uL (4.8-10.8) 12/30/23 04:32 RBC 3.45 10^6/uL (4.20-5.40) L 12/30/23 04:32 Hgb 10.4 g/dL (12.0-16.0) L 12/30/23 04:32 Hct 33.9 % (37.0-47.0) L 12/30/23 04:32 MCV 98.3 fL (81.0-99.0) 12/30/23 04:32 MCH 30.1 pg (27.0-31.0) 12/30/23 04:32 MCHC 30.7 g/dL (32.0-36.0) L 12/30/23 04:32 RDW 13.8 % (12.0-15.0) 12/30/23 04:32 Plt Count 146 10^3/uL (130-450) 12/30/23 04:32 MPV 11.5 fL (7.9-10.8) H 12/30/23 04:32 Neut # (Auto) 6.2 10^3/uL (1.5-6.6) 12/30/23 04:32 Lymph # (Auto) 1.0 10^3/uL (1.5-3.5) L 12/30/23 04:32 [place] # (Auto) 0.8 10^3/uL (0.0-1.0) 12/30/23 04:32 Eos # (Auto) 0.0 10^3/uL (0.0-0.7) 12/30/23 04:32 Baso # (Auto) 0.0 10^3/uL (0.0-0.1) 12/30/23 04:32 Absolute Nucleated RBC 0.00 x10^3/uL 12/30/23 04:32 Nucleated RBC % 0.0 /100WBC 12/30/23 04:32 Bld Gas Analysis Time 0655 12/29/23 06:47 Sample Site RIGHT RADIAL 12/29/23 06:47 ABG pH 7.49 (7.35-7.45) H 12/29/23 06:47 ABG pCO2 60 mmHg (34-45) H* 12/29/23 06:47 ABG pO2 146 mmHg (80-100) H 12/29/23 06:47 ABG HCO3 44.8 mmol/L (22.0-26.0) H 12/29/23 06:47 ABG Total CO2 46.6 MMOL/L (21.0-29.0) H* 12/29/23 06:47 ABG O2 Saturation 98 % (94-98) 12/29/23 06:47 ABG Base Excess 18.6 mmol/L (-2.0-3.0) H 12/29/23 06:47 Lester Test POSITIVE 12/29/23 06:47 VBG pH 7.524 (7.31-7.41) H 12/30/23 04:32 Ionized Calcium 1.19 mmol/L (1.15-1.33) 12/30/23 04:32 Respiration Rate 22 b/min 12/28/23 15:15 O2 Delivery Device BiPAP 12/29/23 06:47 FiO2 60.00 12/29/23 06:47 PEEP 5 cmH2O 12/29/23 06:47 EPAP 5 cmH2O 12/28/23 15:15 IPAP 18 cmH2O 12/29/23 06:47 Sodium 143 mmol/L (135-145) 12/30/23 04:32 Potassium 2.9 mmol/L (3.5-4.5) L 12/30/23 04:32 Chloride 101 mmol/L (101-111) 12/30/23 04:32 Carbon Dioxide 42 mmol/L (21-32) H* 12/30/23 04:32 Anion Gap 0.0 (6-13) L 12/30/23 04:32 BUN 24 mg/dL (6-20) H 12/30/23 04:32 Creatinine 0.7 mg/dL (0.6-1.3) 12/30/23 04:32 Estimated GFR (MDRD) 80 (>89) L 12/30/23 04:32 Glucose 157 mg/dL (74-104) H 12/30/23 04:32 POC Whole Bld Glucose 191 mg/dL (70 - 100) H 12/28/23 09:17 Lactic Acid 0.9 mmol/L (0.5-2.2) 12/28/23 09:52 Calcium 9.8 mg/dL (8.5-10.3) 12/30/23 04:32 Phosphorus 2.3 mg/dL (2.5-5.0) L 12/30/23 04:32 Magnesium 1.9 mg/dL (1.7-2.3) 12/30/23 04:32 Total Bilirubin 0.3 mg/dL (0.2-1.0) 12/30/23 04:32 AST 18 IU/L (10-42) 12/30/23 04:32 ALT 27 IU/L (10-60) 12/30/23 04:32 Alkaline Phosphatase 69 IU/L (42-121) 12/30/23 04:32 B-Natriuretic Peptide 526 pg/mL (5-100) H 12/28/23 09:52 Total Protein 5.7 g/dL (6.4-8.9) L 12/30/23 04:32 Albumin 3.1 g/dL (3.2-5.5) L 12/30/23 04:32 Globulin 2.6 g/dL (2.1-4.2) 12/30/23 04:32 Albumin/Globulin Ratio 1.2 (1.0-2.2) 12/30/23 04:32 Lipase 16 U/L (11-82) 12/28/23 09:52 Vitamin B12 541 pg/mL (180-914) 12/29/23 04:29 Procalcitonin Immunoas 0.23 ng/mL (<0.5) 12/29/23 04:29 Urine Color YELLOW 12/28/23 10:13 Urine Clarity CLEAR (CLEAR) 12/28/23 10:13 Urine pH 5.5 PH (5.0-7.5) 12/28/23 10:13 Ur Specific [place] 1.015 (1.002-1.030) 12/28/23 10:13 Urine Protein NEGATIVE mg/dL (NEGATIVE) 12/28/23 10:13 Urine Glucose (UA) NEGATIVE mg/dL (NEGATIVE) 12/28/23 10:13 Urine Ketones NEGATIVE mg/dL (NEGATIVE) 12/28/23 10:13 Urine Occult Blood LARGE (NEGATIVE) H 12/28/23 10:13 Urine Nitrite NEGATIVE (NEGATIVE) 12/28/23 10:13 Urine Bilirubin NEGATIVE (NEGATIVE) 12/28/23 10:13 Urine Urobilinogen 0.2 (NORMAL) E.U./dL (NORMAL) 12/28/23 10:13 Ur Leukocyte Esterase NEGATIVE (NEGATIVE) 12/28/23 10:13 Urine RBC 0-5 /HPF (0-5) 12/28/23 10:13 Urine WBC 0-3 /HPF (0-5) 12/28/23 10:13 Ur Epithelial Cells RARE Transitional /HPF (<= Few) 12/28/23 10:13 Ur Squamous Epith Cells FEW Squamous (<= Few) 12/28/23 10:13 Urine Bacteria Few /HPF (None Seen) 12/28/23 10:13 Urine Casts 0-2 Hyaline Casts /LPF 12/28/23 10:13 Ur Microscopic Review INDICATED 12/28/23 10:13 Urine Culture Comments NOT INDICATED 12/28/23 10:13 Nasal Adenovirus (PCR) NOT DETECTED 12/28/23 10:25 Nasal B. parapertussis DNA (PCR) NOT DETECTED 12/28/23 10:25 Nasal Coronavir 229E PCR NOT DETECTED 12/28/23 10:25 Nasal Coronavir HKU1 PCR NOT DETECTED 12/28/23 10:25 Nasal Coronavir NL63 PCR NOT DETECTED 12/28/23 10:25 Nasal Coronavir OC43 PCR NOT DETECTED 12/28/23 10:25 Nasal Enterovir/Rhinovir PCR NOT DETECTED 12/28/23 10:25 Nasal Influenza B PCR NOT DETECTED 12/28/23 10:25 Nasal Influenza A PCR NOT DETECTED 12/28/23 10:25 Nasal Parainfluen 1 PCR NOT DETECTED 12/28/23 10:25 Nasal Parainfluen 2 PCR NOT DETECTED 12/28/23 10:25 Nasal Parainfluen 3 PCR NOT DETECTED 12/28/23 10:25 Nasal Parainfluen 4 PCR NOT DETECTED 12/28/23 10:25 Nasal RSV (PCR) NOT DETECTED 12/28/23 10:25 Nasal Screen MRSA (PCR) NEGATIVE (NEGATIVE) 12/28/23 13:40 Nasal B.pertussis DNA PCR NOT DETECTED 12/28/23 10:25 Nasal C.pneumoniae (PCR) NOT DETECTED 12/28/23 10:25 Ankit Human Metapneumo PCR NOT DETECTED 12/28/23 10:25 Nasal M.pneumoniae (PCR) NOT DETECTED 12/28/23 10:25 Nasal SARS-CoV-2 (PCR) NOT DETECTED 12/28/23 10:25 Salicylates < 1.5 mg/dL 12/28/23 09:52 Urine Opiates Screen NEGATIVE (NEGATIVE) 12/28/23 10:13 Ur Buprenorphine Scrn NEGATIVE (NEGATIVE) 12/28/23 10:13 Ur Oxycodone Screen NEGATIVE (NEGATIVE) 12/28/23 10:13 Urine Methadone Screen NEGATIVE (NEGATIVE) 12/28/23 10:13 Acetaminophen 1.7 ug/mL 12/28/23 09:52 Ur Barbiturates Screen NEGATIVE (NEGATIVE) 12/28/23 10:13 Ur Tricyclics Screen NEGATIVE (NEGATIVE) 12/28/23 10:13 Ur Phencyclidine Scrn NEGATIVE (NEGATIVE) 12/28/23 10:13 Ur Amphetamine Screen NEGATIVE (NEGATIVE) 12/28/23 10:13 U Methamphetamines Scrn NEGATIVE (NEGATIVE) 12/28/23 10:13 U Benzodiazepines Scrn NEGATIVE (NEGATIVE) 12/28/23 10:13 Urine Cocaine Screen NEGATIVE (NEGATIVE) 12/28/23 10:13 U Cannabinoids Screen NEGATIVE (NEGATIVE) 12/28/23 10:13 Ur Drug Screen Comment CUTOFF CONC BELOW: 12/28/23 10:13 Ethyl Alcohol < 10.0 mg/dL 12/28/23 09:52 - Procedures Procedures: Procedures CATARAC PHACOEMULS/ASPIR (04/27/14) INSERT LENS AT CATAR EXT (04/27/14) INSERTION OF INFUSION DEV INTO SUP VENA CAVA, PERC APPROACH (06/02/22) REPLACEMENT OF LEFT LENS WITH SYNTH SUB, PERC APPROACH (09/25/16) Sepsis Event Note (H) - Evaluation Current Stage of Sepsis: Sepsis Possible source of Sepsis: positive: Pulmonary - Sepsis Criteria Sepsis Criteria: Recorded Respiratory Rate greater than 20, Respiratory: Increasing oxygen requirements, WBC count greater than 12,000 or less than 4000, MEDICATION NURSE: altered consciousness (unrelated to primary neuro pathology)
[2023-12-30] MEDS: POTASSIUM CHLORIDE 20 MEQ TABLET PO SCH (08:54)
[2023-12-30] MEDS: POTASSIUM PHOSPHATE 15 MMOL in SODIUM CHLORIDE 0.9% 250 ML IV ONE (09:42)
[2023-12-30] MEDS: LETROZOLE 2.5 MG PO SCH (14:49)
[2023-12-30 16:09] LABS: PHOSPHORUS 3.5 mg/dL (2.5-5.0); POTASSIUM 3.6 mmol/L (3.5-4.5)
[2023-12-30] MEDS: POTASSIUM CHLORIDE 20 MEQ TABLET PO ONE (16:59)
[2023-12-30] MEDS: APIXABAN 5 MG TABLET PO SCH (20:31)
[2023-12-31 04:53] LABS: BASOPHILS % (AUTO) 0.2 %; EOSINOPHILS # (AUTO) 0.1 10^3/uL (0.0-0.7); EOSINOPHILS % (AUTO) 1.2 %; HCT - HEMATOCRIT 36.2 % (37.0-47.0); LYMPHOCYTES # (AUTO) 1.2 10^3/uL (1.5-3.5); LYMPHOCYTES % (AUTO) 14.5 %; MEAN CORPUSCULAR HGB CONC 30.4 g/dL (32.0-36.0); MEAN CORPUSCULAR VOLUME 98.6 fL (81.0-99.0); MEAN PLATELET VOLUME 11.4 fL (7.9-10.8); MONOCYTES # (AUTO) 0.9 10^3/uL (0.0-1.0); NEUTROPHILS # (AUTO) 6.3 10^3/uL (1.5-6.6); NEUTROPHILS % (AUTO) 73.7 %; PLT - PLATELET COUNT 159 10^3/uL (130-450); RED BLOOD COUNT 3.67 10^6/uL (4.20-5.40); WHITE BLOOD COUNT 8.5 x10^3/uL (4.8-10.8)
[2023-12-31 05:13] LABS: CALCIUM, IONIZED 1.17 mmol/L (1.15-1.33); VBG PH 7.518 (7.31-7.41)
[2023-12-31 05:15] LABS: MAGNESIUM 1.8 mg/dL (1.7-2.3); PHOSPHORUS 3.3 mg/dL (2.5-5.0)
[2023-12-31 05:52] LABS: ALBUMIN 3.1 g/dL (3.2-5.5); ALBUMIN/GLOBULIN RATIO 1.2 (1.0-2.2); BILIRUBIN,TOTAL 0.3 mg/dL (0.2-1.0); CALCIUM 9.9 mg/dL (8.5-10.3); CREATININE 0.7 mg/dL (0.6-1.3); POTASSIUM 3.8 mmol/L (3.5-4.5); TOTAL PROTEIN 5.7 g/dL (6.4-8.9)
--- NOTE | 2023-12-31 08:33 | Discharge Plan ---
Discharge Plan Problem Reviewed?: Yes Disposition: Home, Self Care Condition: Good Prescriptions: predniSONE [Deltasone] 40 mg PO DAILY 5 Days #10 tablet Ipratropium/Albuterol [Duoneb] 3 ml INH RTQ4H 30 Days #360 ml Diet: Regular No Smoking: If you smoke, Please STOP! Call for help. Follow-up with: Rachele Connor DPM [Provider Admit Priv/Credential] -
--- NOTE | 2023-12-31 08:37 | DISCHARGE SUMMARY ---
Discharge Summary Admit Date: 12/28/23 Discharge Date: 12/31/23 Discharging Provider: Selene Em Primary Care Provider: Rachele Connor Code Status: Attempt Resuscitation Condition at Discharge: Good Discharge Disposition: 01 Home, Self Care - HPI History of Present Illness: Patient is a 83 year old female with extensive medical history who was brought i n by ambulance today from home. Last known normal was yesterday evening. Her caregivers noted somnolence, unresponsiveness, and agonal breathing with a pulse. Medics noted hypoxia in the field. In the ED, she received Narcan without response. Her labs are notable for ABG 7.16/141/146/49.5, BNP 526, WBC 14.2, high neutrophils 12. Lactate 0.9, glucose 191, BUN/Cr 24/1.1. CXR with bilateral pleural effusions. Negative UA, U tox, respiratory viral panel, and CT head. Differential includes mixed acute on chronic hypercapneic respiratory failure, obesity hypoventilation syndrome, obstructive sleep apnea, infection, acute on chronic HF exacerbation. Given profound mixed respiratory acidosis with significant metabolic compensation with significant somnolence and minimal response to sternal rub, patient is being admitted to ICU for ongoing bipap need. - HOSPITAL COURSE Hospital Course: Patient is an 83-year-old female who presented to the ED due to acute hypoxic respiratory failure and encephalopathy. In the ED she was noted to be severely hypercarbic on her ABG and was started on BiPAP and admitted to the ICU. She was given a diagnosis of obesity hypoventilation syndrome mixed with COPD and started on DuoNeb inhalers as well as BiPAP which improved her mentation over the first 24 hours. She was subsequently weaned off of her BiPAP and on to 2 to 3 L of oxygen. She subsequently discharged back home where she resides with a full-time private caregiver. Patient was instructed to use BiPAP nightly. She was also given a prescription for DuoNeb as well as a short course of prednisone. - ALLERGIES Allergies/Adverse Reactions: Allergies Allergy/AdvReac Type Severity Reaction Status Date / Time No Known Drug Allergies Allergy Verified 12/28/23 09:03 - MEDICATIONS Home Medications: Ambulatory Orders Medication Instructions Recorded Confirmed RX: Omeprazole 20 mg PO BID 04/27/14 12/28/23 RX: carvediloL [Coreg] 6.25 mg PO BID 10/09/21 12/28/23 RX: Atorvastatin [Lipitor] 20 mg PO QPM 04/03/22 12/28/23 RX: Multivitamin/Iron/Folic Acid 1 tab PO DAILY 01/04/23 12/28/23 [Centrum Women Tablet] RX: methocarbamoL [Methocarbamol] 750 mg PO QID PRN 01/04/23 12/28/23 RX: Acetaminophen [Tylenol] 650 mg PO Q6H PRN 06/19/23 12/28/23 RX: Apixaban [Eliquis] 5 mg PO BID 06/19/23 12/28/23 RX: Potassium Chloride [Micro-K] 20 meq PO DAILY 06/19/23 12/28/23 RX: Pregabalin 75 mg PO TID 06/19/23 12/28/23 RX: Letrozole 2.5 mg PO DAILY 08/25/23 12/28/23 RX: Sennosides [Senna Lax] 8.6 - 25.8 mg PO DAILY PRN 11/03/23 12/28/23 RX: traZODone [Desyrel] 100 mg PO HS 11/03/23 12/28/23 RX: Furosemide [Lasix] 60 mg PO BIDDIURETIC 12/28/23 12/28/23 RX: Ipratropium/Albuterol [Duoneb] 3 ml INH RTQ4H 30 Days #360 ml 12/31/23 RX: predniSONE [Deltasone] 40 mg PO DAILY 5 Days #10 tablet 12/31/23 - PHYSICAL EXAM AT DISCHARGE General Appearance: positive: No acute distress, Alert Respiratory: positive: Chest non-tender, No respiratory distress, Wheezes Cardiovascular: positive: Regular rate & rhythm, No murmur, No gallop Abdomen: positive: Non-tender, No organomegaly, Nml bowel sounds - LABS Result Diagrams: 12/31/23 04:46 12/31/23 04:46 - SEPSIS Current Stage of Sepsis: Sepsis Possible source of Sepsis: Pulmonary Sepsis Criteria: Recorded Respiratory Rate greater than 20, Respiratory: Increasing oxygen requirements, WBC count greater than 12,000 or less than 4000, LAB COURIER: altered consciousness (unrelated to primary neuro pathology) - FOLLOW UP Follow Up: Follow up with Rachele Connor in 3-5 days. Kindly follow up on blood pressure which was slightly high while inpatient. - TIME SPENT Time Spent in Discharge (Minutes): 30
[2023-12-31] MEDS ORDERED: LETROZOLE 2.5 MG PO SCH (09:00)
[2023-12-31 13:05] VITALS: BP 171/81; O2SAT 92
== END 2023-12-31 13:25 | disposition home or self-care (01) | DRG 871 ==
LOC: ED 08:56 → ICU 12:33
PROVIDERS: ADMIT Specialist; ATTEND Family Medicine
DX: A41.9 Sepsis, unspecified organism (principal); G93.41 Metabolic encephalopathy; R41.82 Altered mental status, unspecified; R06.89 Other abnormalities of breathing; L89.153 Pressure ulcer of sacral region, stage 3; I50.9 Heart failure, unspecified; J96.01 Acute respiratory failure with hypoxia; G47.30 Sleep apnea, unspecified; E78.00 Pure hypercholesterolemia, unspecified; J96.02 Acute respiratory failure with hypercapnia; I50.33 Acute on chronic diastolic (congestive) heart failure; E66.2 Morbid (severe) obesity with alveolar hypoventilation; Z68.41 Body mass index [BMI] 40.0-44.9, adult; J90 Pleural effusion, not elsewhere classified; R13.13 Dysphagia, pharyngeal phase; J44.9 Chronic obstructive pulmonary disease, unspecified; R34 Anuria and oliguria; I48.91 Unspecified atrial fibrillation; Z79.01 Long term (current) use of anticoagulants; Z85.3 Personal history of malignant neoplasm of breast; K21.9 Gastro-esophageal reflux disease without esophagitis; L60.0 Ingrowing nail; E78.5 Hyperlipidemia, unspecified; Z99.3 Dependence on wheelchair; Z66 Do not resuscitate; E87.8 Other disorders of electrolyte and fluid balance, not elsewhere classified; E87.5 Hyperkalemia; E83.41 Hypermagnesemia; E83.52 Hypercalcemia; I11.0 Hypertensive heart disease with heart failure; I25.10 Atherosclerotic heart disease of native coronary artery without angina pectoris; R41.3 Other amnesia; G62.9 Polyneuropathy, unspecified; Z92.21 Personal history of antineoplastic chemotherapy; Z92.3 Personal history of irradiation
CPT/HCPCS: 36415; 36600; 51702; 70450; 71045; 80053; 80143; 80306; 81001; 82330; 82607; 82803; 83605; 83690; 83735; 83880; 84100; 84132; 84145; 85025; 87150; 87633; 93005; 94640; 94660; 99291; 99292; A9270; G0480; J1650; 80179; 81003; 82077; 87086

== ENCOUNTER 2023-12-31 13:36 | Outpatient (CLI) | payer MEDICARE, BC | END 2023-12-31 23:59 | disposition home or self-care (01) | LOC: EMS 13:36 | PROVIDERS: ATTEND Family Medicine | DX: J96.01 Acute respiratory failure with hypoxia (principal); E66.01 Morbid (severe) obesity due to excess calories; Z74.01 Bed confinement status; Z99.81 Dependence on supplemental oxygen | CPT/HCPCS: A0425; A0428 ==

== ENCOUNTER 2024-01-04 17:54 | Outpatient (CLI) | payer MEDICARE, BC | END 2024-01-04 23:59 | disposition critical access hospital (66) | LOC: EMS 17:54 | PROVIDERS: ATTEND Emergency Medicine | DX: R06.02 Shortness of breath (principal); R05.8 Other specified cough; Z74.01 Bed confinement status | CPT/HCPCS: A0425; A0427 ==

== ENCOUNTER 2024-01-04 18:09 | Inpatient (IN) | payer MEDICARE, BC ==
--- NOTE | 2024-01-04 18:16 | ED Physician Documentation ---
PD HPI DYSPNEA - Stated complaint Stated Complaint: SOA - History obtained from History obtained from: Patient, EMS - Additional information Additional information: 83-year-old woman presents by ambulance. She was here for about 3 days and discharged on the for acute respiratory failure looking like it was multifactorial due to COPD, obesity hypoventilation syndrome, and acute on chronic heart failure. Since discharge she has not been able to fill her prescription for DuoNeb and today her cough was so bad that she called the ambulance. She is actually feeling somewhat better now after receiving a DuoNeb en route. She has been taking steroids. She denies any fevers. She does wear oxygen at home, 2 L/min. She denies chest pain. She lives at home with a full- time caregiver. PD PAST MEDICAL HISTORY - Past Medical History Cardiovascular: Congestive heart failure, Hypertension, High cholesterol, Coronary artery disease, Valve disorder Respiratory: Shortness of breath, Sleep apnea, CPAP use Neuro: Headaches, Peripheral neuropathy Endocrine/Autoimmune: Other GI: GERD, Other RESIDENTIAL INSTRUCTOR: Breast cancer : Incontinence, Frequency HEENT: Chronic vision loss Psych: None Musculoskeletal: Osteoarthritis, Fibromyalgia, Chronic back pain, Other Derm: Rosacea - Past Surgical History Past Surgical History: Yes General: Cholecystectomy, Appendectomy, Colonoscopy /RESIDENTIAL INSTRUCTOR: Hysterectomy, Oophrectomy, Other HEENT: Cataracts Derm: Skin cancer surgery - Present Medications Home Medications: Ambulatory Orders Medication Instructions Recorded Confirmed Omeprazole 20 mg PO BID 04/27/14 12/28/23 carvediloL [Coreg] 6.25 mg PO BID 10/09/21 12/28/23 Atorvastatin [Lipitor] 20 mg PO QPM 04/03/22 12/28/23 Multivitamin/Iron/Folic Acid 1 tab PO DAILY 01/04/23 12/28/23 [Centrum Women Tablet] methocarbamoL [Methocarbamol] 750 mg PO QID PRN 01/04/23 12/28/23 Acetaminophen [Tylenol] 650 mg PO Q6H PRN 06/19/23 12/28/23 Apixaban [Eliquis] 5 mg PO BID 06/19/23 12/28/23 Potassium Chloride [Micro-K] 20 meq PO DAILY 06/19/23 12/28/23 Pregabalin 75 mg PO TID 06/19/23 12/28/23 Letrozole 2.5 mg PO DAILY 08/25/23 12/28/23 Sennosides [Senna Lax] 8.6 - 25.8 mg PO DAILY PRN 11/03/23 12/28/23 traZODone [Desyrel] 100 mg PO HS 11/03/23 12/28/23 Furosemide [Lasix] 60 mg PO BIDDIURETIC 12/28/23 12/28/23 Ipratropium/Albuterol [Duoneb] 3 ml INH RTQ4H 30 Days #360 ml 12/31/23 predniSONE [Deltasone] 40 mg PO DAILY 5 Days #10 tablet 12/31/23 - Allergies Allergies/Adverse Reactions: Allergies Allergy/AdvReac Type Severity Reaction Status Date / Time No Known Drug Allergies Allergy Verified 01/04/24 18:47 - Social History Does the pt smoke?: No Smoking Status: Never smoker Does the pt drink ETOH?: No Does the pt have substance abuse?: Yes - Immunizations Immunizations are current?: Yes - POLST Patient has POLST: Yes POLST Status: Do Not Intubate PD ED PE NORMAL - Vitals Vital signs reviewed: Yes - General General: Alert and oriented X 3, No acute distress - Cardiac Cardiac: RRR, No murmur - Respiratory Respiratory: Other (Frequent wet bronchitic cough but nonlabored breathing. Rhonchorous throughout.) - Abdomen Abdomen: Non tender Results - Vitals Vitals: Vital Signs - 24 hr 01/04/24 01/04/24 01/04/24 18:34 18:39 19:11 Temperature 36.8 C Heart Rate 96 68 65 Respiratory 22 13 18 Rate Blood Pressure 162/85 H 175/65 H O2 Saturation 91 L 91 L If not protocol 3 : Oxygen Flow, liters/minute Oxygen O2 Source [] Nasal cannula O2 Source [] Nasal cannula O2 Source Nasal cannula Oxygen Flow Rate 3 - Labs Labs: Laboratory Tests 01/04/24 01/04/24 01/04/24 18:24 18:24 18:24 WBC 12.0 H RBC 4.28 Hgb 12.9 Hct 43.6 MCV 101.9 H MCH 30.1 MCHC 29.6 L RDW 13.6 Plt Count 217 MPV 11.3 H Neut # (Auto) 10.0 H Lymph # (Auto) 1.0 L [place] # (Auto) 0.7 Eos # (Auto) 0.0 Baso # (Auto) 0.0 Absolute Nucleated RBC 0.00 Nucleated RBC % 0.0 VBG pH 7.435 H VBG pCO2 76.8 H VBG pO2 47.8 H VBG HCO3 50.4 H VBG Total CO2 52.8 H VBG O2 Saturation 86.0 H VBG Base Excess 21.4 H Sodium 144 Potassium 4.5 Chloride 94 L Carbon Dioxide > 45 H* Anion Gap TNP BUN 27 H Creatinine 0.8 Estimated GFR (MDRD) 69 L Glucose 145 H Lactic Acid Calcium 10.7 H Phosphorus 3.5 Magnesium 2.2 Total Bilirubin 0.4 AST 11 ALT 19 Alkaline Phosphatase 71 Total Protein 6.5 Albumin 3.7 Globulin 2.8 Albumin/Globulin Ratio 1.3 01/04/24 19:13 WBC RBC Hgb Hct MCV MCH MCHC RDW Plt Count MPV Neut # (Auto) Lymph # (Auto) [place] # (Auto) Eos # (Auto) Baso # (Auto) Absolute Nucleated RBC Nucleated RBC % VBG pH VBG pCO2 VBG pO2 VBG HCO3 VBG Total CO2 VBG O2 Saturation VBG Base Excess Sodium Potassium Chloride Carbon Dioxide Anion Gap BUN Creatinine Estimated GFR (MDRD) Glucose Lactic Acid 0.8 Calcium Phosphorus Magnesium Total Bilirubin AST ALT Alkaline Phosphatase Total Protein Albumin Globulin Albumin/Globulin Ratio - Rads (name of study) cxr 1v - opacification L side Relevant Findings:: Final report received, EMP independent interpretation of test PD Medical Decision Making - ED course ED course: She presents with shortness of breath after recent admission for multifactorial respiratory failure. She is not encephalopathic and initially was basically felt that it was the lack of her DuoNeb prescription being filled that caused or led to the emergency department visit tonight. That said I did a chest x-ray and a venous blood gas. The venous blood gas shows chronic CO2 retention without acidosis and her pCO2 is basically at the baseline level from priors so this is probably her chronic/normal. But on chest x-ray her left hemithorax is basically nearly completely opacified leading to the diagnosis of some sort of new process for which an expanded set of labs and a CT was ordered. CT was delayed due to several code strokes coming in and care to Dr. Camara pending CT imaging at 10 PM. Departure - Departure Clinical Impression: Morbid obesity with BMI of 45.0-49.9, adult, Obesity hypoventilation syndrome, Abnormal chest x-ray Condition: Stable
[2024-01-04 18:27] LABS: VBG PH 7.435 (7.31-7.41)
[2024-01-04 18:28] LABS: VBG BASE EXCESS 21.4 mmol/L (-2 - +2); VBG HCO3 50.4 mmol/L (23-28); VBG PCO2 76.8 mmHg (41-51); VBG PO2 47.8 mmHg (25-47); VBG TOTAL CO2 52.8 mmol/L (24-29)
[2024-01-04] MEDS: ALBUTEROL NEB 2.5 MG/3 ML INH STA (18:29)
--- NOTE | 2024-01-04 18:45 | XRAY Report ---
PROCEDURE: Chest 1V INDICATIONS: cough TECHNIQUE: One view of the chest was acquired. COMPARISON: 12/28/2023 FINDINGS: Surgical changes and devices: Right breast postoperative clips are seen. Lungs and pleura: There is near complete opacification of the left hemithorax. The right lung is rel atively clear. No large pneumothorax is seen on this semiupright study. Mediastinum: There is at least moderate cardiomegaly, which is obscured on this study. Bones and chest wall: No suspicious bony lesions. Age-appropriate degenerative changes are seen. O verlying soft tissues appear unremarkable. IMPRESSION: Near-complete opacification of the left hemithorax. Pleural effusion with atelectasis is suspected. T his process is new compared to the 12/28/2023 examination. Postoperative and degenerative changes are seen. Reviewed by: Pito Nazario MD on 01/04/2024 5:43 PM KAYLIN Approved by: Pito Nazario MD on 01/04/2024 5:43 PM AKFAWN Station ID: [id number]
[2024-01-04 19:06] LABS: BASOPHILS % (AUTO) 0.2 %; EOSINOPHILS % (AUTO) 0.1 %; HCT - HEMATOCRIT 43.6 % (37.0-47.0); HGB - HEMOGLOBIN 12.9 g/dL (12.0-16.0); LYMPHOCYTES % (AUTO) 8.7 %; MEAN CORPUSCULAR HEMOGLOBIN 30.1 pg (27.0-31.0); MEAN CORPUSCULAR HGB CONC 29.6 g/dL (32.0-36.0); MEAN CORPUSCULAR VOLUME 101.9 fL (81.0-99.0); MEAN PLATELET VOLUME 11.3 fL (7.9-10.8); MONOCYTES # (AUTO) 0.7 10^3/uL (0.0-1.0); MONOCYTES % (AUTO) 6.2 %; NEUTROPHILS % (AUTO) 83.3 %; PLT - PLATELET COUNT 217 10^3/uL (130-450); RED BLOOD COUNT 4.28 10^6/uL (4.20-5.40); RED CELL DISTRIBUTION WIDTH 13.6 % (12.0-15.0)
[2024-01-04 19:15] LABS: MAGNESIUM 2.2 mg/dL (1.7-2.3); PHOSPHORUS 3.5 mg/dL (2.5-5.0)
[2024-01-04 19:19] LABS: ALBUMIN 3.7 g/dL (3.2-5.5); ALBUMIN/GLOBULIN RATIO 1.3 (1.0-2.2); ALKALINE PHOSPHATASE 71 IU/L (42-121); ALT ALANINE AMINOTRANSFERASE 19 IU/L (10-60); AST ASPARTATE AMINOTRANSFERASE 11 IU/L (10-42); BILIRUBIN,TOTAL 0.4 mg/dL (0.2-1.0); BUN - BLOOD UREA NITROGEN 27 mg/dL (6-20); CALCIUM 10.7 mg/dL (8.5-10.3); CARBON DIOXIDE - CO2 > 45 mmol/L (21-32); CHLORIDE 94 mmol/L (101-111); CREATININE 0.8 mg/dL (0.6-1.3); GFR - MDRD 69 (>89); GLUCOSE 145 mg/dL (74-104); POTASSIUM 4.5 mmol/L (3.5-4.5); SODIUM 144 mmol/L (135-145); TOTAL PROTEIN 6.5 g/dL (6.4-8.9)
[2024-01-04] MEDS ORDERED: iohexoL-300 100 ML VIAL ONE ×2 (19:23→22:34)
[2024-01-04] MEDS: iohexoL-300 100 ML VIAL IVP ONE (22:56)
--- NOTE | 2024-01-05 00:52 | CT Report ---
PROCEDURE: Chest W INDICATIONS: abn cxr CONTRAST: 100ml [id number]. TECHNIQUE: After the administration of intravenous contrast, a CT scan of the chest was performed. Images were recorded and evaluated at appropriate window settings. Reformats: axial MIP of the chest, coronal and sagittal. For radiation dose reduction, the following was used: automated exposure control, adjustme nt of mA and/or kV according to patient size. COMPARISON: Chest radiograph 01/03/[address] 06/09/2023. FINDINGS: Image quality: Diagnostic. Chest wall and lower neck: No thyroid nodule which requires sonographic follow up. Surgical clips are seen in the right breast. No axillary or supraclavicular adenopathy by size. Lungs and pleura: Small left pleural effusion. There is dependent atelectasis in the left lung. More dense atelectasis is seen in the right lower lobe with a trace right effusion. Prominent mediastinal and epicardial fat as well as the enlarged heart fill a large portion of the chest with resulting inc omplete aeration of the lungs. [place] shape of the trachea is suspicious for tracheomalacia. No pn eumothorax No suspicious pulmonary nodules which require follow up in the aerated portions of the azael g. Mediastinum: Heart size is markedly enlarged No pericardial effusion. There is prominent epicardial a nd mediastinal. Main pulmonary artery is enlarged measuring up to 4.0 cm in diameter. Descending thor acic aorta also measures 4 cm in maximum diameter. No mediastinal adenopathy by size criteria. Bones: No aggressive osseous abnormality. Upper Abdomen: Left hepatic lobe pneumobilia is noted. Nonspecific hypoattenuating lesion is seen in the spleen. IMPRESSION: 1.Small left and trace right pleural effusions with prominent atelectasis in both lungs. Overall low lung volumes are noted bilaterally. 2.Marked cardiomegaly. Main pulmonary artery measures 4 cm in diameter which can be seen in setting o f pulmonary hypertension. There is surrounding prominent mediastinal fat that may impinge upon the ad jacent lungs. Reviewed by: Richard Grady MD on 01/05/2024 12:51 AM PDT Approved by: Richard Grady MD on 01/05/2024 12:51 AM PDT Station ID: [id number]
--- NOTE | 2024-01-05 05:36 | PROVIDER PROGRESS NOTE ---
Monitoring Coordinator Note - Monitoring Coordinator Note Monitoring Coordinator Note: Request for hospital admission for Ms Butt from ER. Case reviewed with Dr Camara, patient has a history of hypercapneic respiratory failure, recently admitted 12/27-12/30 with encephalopathy, hypercapnia, pH 7.1 - was treated in ICU with BIPAP and improved. Today patient presents to ER with shortness of breath, did not have nebulizers available after hospital discharge. She was found to have white out hemithorax on CXR, however CT showed small bilateral effusions with small lung volumes. Patient has become progressively obtunded. I did briefly see her via tele-video with RN at bedside, patient is on her home CPAP (hx NICOLE), unarousable even with sternal rub. Discussed with Dr Camara, will continue with encephalopathy work up as she was not acutely hypercapneic on VBG done yesterday evening. Hold on admission pending results of labs/imaging. CT head Repeat ABG Follow up CMP, CBC, ammonia, UA Hospitalist service will continue to follow.
[2024-01-05 05:52] LABS: ABG BASE EXCESS 14.2 mmol/L (-2.0-3.0); ABG HCO3 51.7 mmol/L (22.0-26.0); ABG OXYGEN SATURATION 98 % (94-98); ABG PCO2 180 mmHg (34-45); ABG PH 7.08 (7.35-7.45); ABG PO2 152 mmHg (80-100); ABG TCO2 57.2 MMOL/L (21.0-29.0)
[2024-01-05 06:14] LABS: HCT - HEMATOCRIT 49.8 % (37.0-47.0); HGB - HEMOGLOBIN 13.9 g/dL (12.0-16.0); MEAN CORPUSCULAR HEMOGLOBIN 29.4 pg (27.0-31.0); MEAN CORPUSCULAR HGB CONC 27.9 g/dL (32.0-36.0); MEAN CORPUSCULAR VOLUME 105.5 fL (81.0-99.0); MEAN PLATELET VOLUME 11.2 fL (7.9-10.8); RED BLOOD COUNT 4.72 10^6/uL (4.20-5.40); RED CELL DISTRIBUTION WIDTH 13.3 % (12.0-15.0); WHITE BLOOD COUNT 19.7 x10^3/uL (4.8-10.8)
[2024-01-05 06:32] LABS: ALBUMIN 3.9 g/dL (3.2-5.5); ALBUMIN/GLOBULIN RATIO 1.4 (1.0-2.2); ALKALINE PHOSPHATASE 81 IU/L (42-121); ALT ALANINE AMINOTRANSFERASE 21 IU/L (10-60); AST ASPARTATE AMINOTRANSFERASE 13 IU/L (10-42); BILIRUBIN,TOTAL 0.4 mg/dL (0.2-1.0); BUN - BLOOD UREA NITROGEN 34 mg/dL (6-20); CALCIUM 10.7 mg/dL (8.5-10.3); CARBON DIOXIDE - CO2 > 45 mmol/L (21-32); CHLORIDE 93 mmol/L (101-111); CREATININE 1.1 mg/dL (0.6-1.3); GFR - MDRD 48 (>89); GLUCOSE 198 mg/dL (74-104); POTASSIUM 4.7 mmol/L (3.5-4.5); SODIUM 144 mmol/L (135-145); TOTAL PROTEIN 6.6 g/dL (6.4-8.9)
--- NOTE | 2024-01-05 06:47 | ED Physician Documentation ---
ED Addendum - Addendum Addendum: 01/05/24 07:40 I received signout/turnover of care on this patient from Dr. Solano; please see his note for complete H&P. In brief, patient presented for dyspnea. She was inpatient at [facility] last week, discharged a few days ago. One of the discharge prescriptions was DuoNebs, but patient apparently had not yet filled this prescription. On initial ED arrival tonight, the patient was already reporting improvement in her dyspnea having received a DuoNeb en route by EMS. However, a chest x-ray demonstrated, quite unexpectedly, near-complete left hemithoracic opacification which is a new finding compared to CXR as recently as 12/28/23. Given this finding, a CT chest with IV contrast was ordered, and this test result is pending at the time of turnover of care. While there are abnormalities on the CT scan, there are no findings that would correlate with the chest x-ray findings as noted, above. Furthermore, the findings on CT chest did not include any critical nor emergently concerning findings. The abnormalities include small/trace right pleural effusions, atelectasis bilaterally. Marked cardiomegaly with pulmonary artery dilatation. By the time the CT is resulted, the patient is on CPAP but completely obtunded. She is only responding to painful stimulus (sternal rub). I contacted the on-call practitioner for [facility]. She initially accepted patient for admission to [facility], but she subsequently recontacted me and asked that patient hold in ED until ABG and CTH can be undertaken. Her chief concern is normal pH despite hypercarbia on VBG. The results of the ABG are now showing respiratory acidosis with pH of 7.0 and pCO2 of 180. Shortly after the end of my shift, radiology contacted me with critical results of the CT head; the results are concerning for possible venous thrombosis. At this point I have signed out care of this patient to oncoming ED physician (Dr. Jacobo). Also, towards the end my shift, I was contacted by the lab regarding a critical result; the telehealth practitioner had apparently ordered blood tests including an ammonia level. The ammonia level is 93. LFTs are normal. I only see one previous ammonia level in our records which was normal and was in 2021.
[2024-01-05] MEDS ORDERED: iohexoL-300 100 ML VIAL ONE (07:20)
--- NOTE | 2024-01-05 07:44 | CT Report ---
PROCEDURE: Head WO INDICATIONS: encephalopathy, obtunded TECHNIQUE: Noncontrast 4.5 mm thick angled axial sections acquired from the foramen magnum to the vertex. For r adiation dose reduction, the following was used: automated exposure control, adjustment of mA and/or kV according to patient size. COMPARISON: 12/28/2023. FINDINGS: Image quality: Excellent. CSF spaces: Basal cisterns are patent. No extra-axial fluid collections. Ventricles are normal in size and shape. Brain: No midline shift. No intracranial masses or hemorrhage. Valentin-white matter interface is norm al. There is questionable increased density involving the superior sagittal sinus and the vein of Ga mac and the right transverse sinus. This may be artifactual. However, cannot exclude dural sinus thro mbosis. Skull and face: Calvarium and visualized facial bones are intact, without suspicious lesions. Symmet mark bilateral proptosis, felt to be secondary to increased intraorbital fat. Sinuses: Visualized sinuses and mastoids are clear. IMPRESSION: 1. No acute stroke, hemorrhage, or mass noted. 2. Question abnormal increased density in multiple venous sinuses. This may be artifactual. However, cannot exclude dural venous sinus thrombosis. 3. Symmetric proptosis, secondary to increased intraorbital fat. Comment: Recommend brain MRI with and without contrast for contrast enhanced CT for further evaluatio n of the dural venous sinuses. Findings are concordant with preliminary interpretation provided by [facility]. Reviewed by: Braulio Grissom MD on 01/05/2024 7:43 AM PDT Approved by: Braulio Grissom MD on 01/05/2024 7:43 AM PDT Station ID: [id number]
[2024-01-05 09:28] LABS: BILIRUBIN,URINE NEGATIVE (NEGATIVE); GLUCOSE, URINE (UA) NEGATIVE (NEGATIVE); KETONES,URINE (UA) NEGATIVE (NEGATIVE); LEUKOCYTE ESTERASE, URINE NEGATIVE (NEGATIVE); NITRITE,URINE NEGATIVE (NEGATIVE); OCCULT BLOOD,URINE NEGATIVE (NEGATIVE); PH,URINE 5.5 PH (5.0-7.5); PROTEIN,URINE NEGATIVE (NEGATIVE); UROBILINOGEN,URINE 0.2 (NORMAL) E.U./dL (NORMAL)
[2024-01-05 09:29] LABS: CLARITY,URINE CLEAR (CLEAR)
[2024-01-05 09:36] LABS: BACTERIA,URINE None Seen /HPF (None Seen); CASTS, URINE 3-5 Hyaline Casts /LPF; RBC,URINE 0-5 /HPF (0-5); SQUAMOUS EPITHELIAL CELL,UR RARE Squamous (<= Few); WBC,URINE 0-3 /HPF (0-5)
--- NOTE | 2024-01-05 09:36 | CT Report ---
PROCEDURE: Head W INDICATIONS: concern for venous thrombosis CONTRAST: 100ml [id number]. TECHNIQUE: 4.5 mm thick angled axial sections acquired from the foramen magnum to the vertex after the administr ation of intravenous contrast. For radiation dose reduction, the following was used: automated expo sure control, adjustment of mA and/or kV according to patient size. COMPARISON: CT head without contrast dated 01/05/2024 0615 hours FINDINGS: Image quality: Excellent. CSF Spaces: Basal cisterns are patent. No extra-axial fluid collections. Ventricles are normal in size and shape. Brain: No midline shift. No intracranial bleeds or masses. No abnormal intracranial enhancement. Valentin-white interface appears normal. Dural venous sinuses: The superior sagittal sinus and the vein Jean Marie are widely patent. The proximal portion of the right transverse sinus is widely patent. There is low density present within the more lateral/peripheral aspect of the right transverse sinus. This commonly represents arachnoid granulati ons. However, cannot completely exclude focal venous sinus thrombosis involving the peripheral/latera l aspect of the right transverse sinus. Reference axial image 13 of series 2 and coronal images 33 th rough 35 of series 4. Skull and face: Calvarium and visualized facial bones appear intact, without suspicious lesions. Sinuses: Visualized sinuses and mastoids are clear. IMPRESSION: 1. Filling defect present in the peripheral/lateral aspect of the right transverse sinus most likely represents arachnoid granulation tissue. It is common for arachnoid granulation tissue to represent l ow density areas within the dural venous sinuses. However, cannot exclude focal nonocclusive thrombus . 2. No other findings suspicious for dural venous sinus thrombosis. 3. No other potentially acute findings Reviewed by: Braulio Grissom MD on 01/05/2024 9:35 AM PDT Approved by: Braulio Grissom MD on 01/05/2024 9:35 AM PDT Station ID: [id number]
[2024-01-05 11:59] LABS: ABG PH 7.34 (7.35-7.45); ABG PO2 53 mmHg (80-100)
[2024-01-05 12:00] LABS: ABG BASE EXCESS 20.3 mmol/L (-2.0-3.0); ABG HCO3 51.6 mmol/L (22.0-26.0); ABG OXYGEN SATURATION 88 % (94-98); ALLEN TEST POSITIVE
[2024-01-05 12:01] LABS: ABG RESPIRATORY RATE 12 b/min
[2024-01-05 12:03] LABS: ABG PCO2 98 mmHg (34-45); ABG TCO2 54.6 MMOL/L (21.0-29.0)
[2024-01-05] MEDS ORDERED: ONDANSETRON 4 MG/2 ML VIAL IVP PRN (15:27)
[2024-01-05] MEDS ORDERED: ONDANSETRON ODT 4 MG TABLET TL PRN (15:27)
--- NOTE | 2024-01-05 15:50 | ED Physician Documentation ---
ED Addendum - Addendum Addendum: 01/05/24 15:47 On change of shift the concern on a CT of the head was potential for venous thrombosis. CT with contrast was being performed. The result of this came back showing a small cyst or such that had the flow-void that could be appearance of a clot on noncontrast. However with the contrast it was clear to have not any clots. This was conveyed to the hospitalist on board rounds at 1045. The patient's blood gas was showing some improvement with now a pH is 7.3 improved f rom 0 point this is 7.0. pCO2 was increased as well from 148 now down to 98. No other obvious abnormalities. The patient was to be admitted to the ICU on BiPAP for continued therapy. We did talk with the hospitalist again around noon time to verify they were going to do orders. It is now approximately 347. Still waiting orders. The patient is stable. Still not having much rousing as yet.
--- NOTE | 2024-01-05 16:00 | HISTORY & PHYSICAL EXAMINATION ---
Chief Complaint - Chief Complaint Chief Complaint: AMS History of Present Illness - Admitted From Admitted From:: home - History Obtained From Records Reviewed: [facility] History obtained from: Dr. Jacobo Exam Limitations: she is sleepy and slow to respond - History of Present Illness HPI Comment/Other: 83-year-old female well-known to our service. She has COPD with obstructive sleep apnea and obesity hypoventilation syndrome. She is essentially bedbound and uses CPAP at night. However, sometimes the mask comes off. Her most recent hospitalization for which she was just discharged had to do with the mask falling off her face. Caregivers not realizing it. In the living specialist finding her unresponsive. When she was in the hospital she was put in ICU, BiPAP started. Patient gradually woke up as pCO2 went down. She was discharged last week. Now returns with a recurrent problem of altered mental status. No antecedent history of fevers, chills, cough. She does have a diagnosis of recurrent breast cancer that is triple negative. She is not a surgical candidate so she has been on letrozole. She does not have a history of alcohol abuse or hepatic encephalopathy. While she has some cognitive deficits, they are not severe enough that DPOA has been activated. She has a nephew Von who is a physician at the [employer] and he is her first contact for DPOA. She is a patient who does want full resuscitation if she were to stop breathing or have her heartbeat stop. However she does not want to be intubated. In the emergency room, she was evaluated for respiratory failure and the initial blood gas was relatively normal for her. pCO2 on venous blood gas was in the 70s but pH was normal for her. Chest x-ray showed whiteout of the left lung. The white out of the lung was new for her. We compared it to a chest x-ray from December. Because there was incongruency between the blood gas and a chest x-ray the telehealth provider did not want to admit this patient until the ER provider could more fully delineate why this patient was decompensating. As such a chest CT was ordered and the chest CT does not show white out of the lung. She has scant pleural effusions. No pneumonia. A very large pulmonary artery indicating probable pulmonary hypertension. She was kept in the ER with BiPAP. Several blood gases been done. A second blood gas shows her to have severe hypercapnia and hypoxemia. That was at 6 in the morning. By noon today, she has improved. pCO2 is going down. pH is improving. The ER provider would like us to admit her for treatment of acute on chronic respiratory failure with hypoxia and hypercapnia. Again most likely due to incorrect CPAP usage. We are not seeing pneumonia. We did request an ammonia level to be done in the ER and that is in the 90s. This patient does not have a history of hepatic encephalopathy but does have fatty liver on CT and ultrasound. As such we are admitting the patient to ICU for BiPAP use. She is slowly impr oving with mental status but is not back to baseline. At baseline this patient is awake and alert enough to communicate effectively and let providers and nursing know what she wants. History - Past Medical History Cardiovascular: reports: Congestive heart failure, Hypertension, High cholesterol, Coronary artery disease, Valve disorder Respiratory: reports: Shortness of breath, Sleep apnea, CPAP use Neuro: reports: Headaches, Peripheral neuropathy GI: reports: GERD, Other HOT MILL T[employer]ER: reports: Breast cancer, Other () : reports: Incontinence, Frequency HEENT: reports: Chronic vision loss Psych: reports: None Musculoskeletal: reports: Osteoarthritis, Fibromyalgia, Chronic back pain, Other Derm: reports: Rosacea MRSA Hx?: No - Past Surgical History General: reports: Cholecystectomy, Appendectomy, Colonoscopy /HOT MILL TIN ROLLER: reports: Hysterectomy, Oophrectomy, Other HEENT: reports: Cataracts Derm: reports: Skin cancer surgery - Family & Social History Family History: Mother: , Father: Family History Comment/Other: Father of heart disease at the age of 50. Mother of old age at 84 but had high blood pressure, diabetes, Parkinson's disease. 1 brother of unknown causes. 1 sister alive but very ill with unknown causes. 2 children described as completely healthy without any medical illnesses. Living arrangement: At home Living Situation: Alone, With caregiver(s) [place]: [place] Single. 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 Her nephew Von is an MD with [employer]. He is her DPOA. - Substance History Use: Uses substance without health or social issues: NONE - POLST Patient has POLST: Yes POLST Status: Do Not Intubate Meds/Allgy - Home Medications Home Medications: Ambulatory Orders Medication Instructions Recorded Confirmed Omeprazole 20 mg PO BID 04/27/14 01/05/24 carvediloL [Coreg] 6.25 mg PO BID 10/09/21 01/05/24 Atorvastatin [Lipitor] 20 mg PO QPM 04/03/22 01/05/24 Multivitamin/Iron/Folic Acid 2.5 mg PO DAILY 01/04/23 01/05/24 [Centrum Women Tablet] methocarbamoL [Methocarbamol] 750 mg PO QID PRN 01/04/23 01/05/24 Acetaminophen [Tylenol] 650 mg PO Q6H PRN 06/19/23 01/05/24 Apixaban [Eliquis] 5 mg PO BID 06/19/23 01/05/24 Potassium Chloride [Micro-K] 10 meq PO TID 06/19/23 01/05/24 Pregabalin 75 mg PO TID 06/19/23 01/05/24 Letrozole 2.5 mg PO DAILY 08/25/23 01/05/24 Sennosides [Senna Lax] 8.6 - 25.8 mg PO DAILY PRN 11/03/23 01/05/24 Furosemide [Lasix] 60 mg PO BIDDIURETIC 12/28/23 01/05/24 Ipratropium/Albuterol [Duoneb] 3 ml INH RTQ4H 30 Days #360 ml 12/31/23 01/05/24 Losartan Potassium 25 mg PO DAILY 01/05/24 01/05/24 predniSONE [Deltasone] 20 mg PO BID 01/05/24 01/05/24 - Allergies Allergies/Adverse Reactions: Allergies Allergy/AdvReac Type Severity Reaction Status Date / Time No Known Drug Allergies Allergy Verified 01/05/24 07:23 Review of Systems - Other Findings Other Findings: This patient was described as awake, and speaking appropriately when she arrived to the ER. Currently she is obtunded, no response to sternal rub. As such review of systems not able to be done Prior Level of Functionality: Morbidly obese, bedbound, has 2 caregivers. I daytime and a nighttime 1. Completely dependent for activities of daily living. Exam - Vital Signs Reviewed Vital Signs: Yes Vital Signs: Vital Signs x48h Temp Pulse Resp BP Pulse Ox 01/05/24 15:05 68 01/05/24 15:00 36.6 C 49 L 15 116/60 98 01/05/24 14:13 52 L 17 117/71 94 01/05/24 13:00 58 L 17 130/58 L 94 01/05/24 11:06 60 01/05/24 11:00 51 L 17 134/57 H 94 01/05/24 09:00 36.2 C L 53 L 17 129/90 H 94 - Physical Exam General Appearance: positive: Other ( morbidly obese female but she is losing weight. Weight was 139 kg 2 months ago. On Bipap) Eyes Bilateral: positive: PERRL ( But slow-moving) ENT: positive: Pharynx nml Neck: positive: No JVD Respiratory: positive: No respiratory distress (BiPAP in place), Wheezes. negative: Rales, Rhonchi Cardiovascular: positive: Regular rate & rhythm Abdomen: positive: No organomegaly, Nml bowel sounds, No distention, Other (unable to assess for pain, but abd seems benign) Skin: positive: Color nml, No rash, Warm Extremities: positive: Full ROM, Pedal edema Neurologic/Psychiatric: positive: Other (no response to sternal rub.) Conclusion/Plan - Problem List (1) Altered mental status Conclusion/Plan: this unfortunate female is dependent on caregivers and has a longstanding history of combined obstructive and restrictive lung disease. The restriction comes from her obesity. The obstruction comes from COPD. She is dependent on BiPAP at night. She is now had 2 admissions for encephalopathy due to hypercapnia as well as hypoxia. The impression I am getting is that the hypercapnia is getting the best of her. There is suggestion of noncompliance and that she takes the mask off at night. But the patient may not be aware she is doing this. I am not seeing evidence of infection as the cause of her encephalopathy. There is a possibility of hepatic encephalopathy. Her ammonia level is elevated. But this patient does not have a history of alcohol abuse. While she does have changes of fatty liver on CT scan, there is no cirrhotic changes, no portal hypertension. The only sedative drugs she takes is methocarbamol. I doubt that this is causing excessive somnolence with subsequent hypercapnia. She is not having a stroke. She does not have any severe electrolyte derangement that would there is. Plan: BiPAP with daily blood gases until she wakes up. Aim for pCO2 less than 70 Oxygen supplementation to maintain O2 sats greater than 90% As needed nebulizers Qualifiers: Altered mental status type: stupor Qualified Code(s): R40.1 - Stupor (2) Acute on chronic respiratory failure with hypoxia and hypercapnia Conclusion/Plan: Due to a combination of chronic respiratory failure from obesity hypoventilation and obstructive sleep apnea and history of COPD. Treatment is as above for her metabolic encephalopathy. I will make sure she is on albuterol inhalers as needed. Adjust BiPAP on the basis of blood gas findings. No empiric antibiotic therapy at this time since I am not finding evidence of pneumonia on CT scan. (3) Hypercalcemia Conclusion/Plan: I have reviewed the EMR. She had normal calcium levels until this August. She went barely above normal at 10.5. December she was 10.6. After her December admission she dropped back down to normal again. And now with this admission she is back to being 10.7. There is no suggestion of excessive calcium intake. Plan: PTH level (4) Hyperkalemia Conclusion/Plan: With one of her admissions she was noted to be hypokalemic and was discharged on 10 mill equivalents 3 times a day of potassium. She is not on spironolactone. She is not on Lasix. I suspect her hyperkalemia may be iatrogenic due to the potassium prescription. I will be holding the potassium while she is here. Repeat potassium tonight and if it continues to be elevated give amp of D50 with 10 units of IV push insulin. (5) Increased ammonia level Conclusion/Plan: New diagnosis for her. There is no previous history of hepatic encephalopathy from liver disease. Plan: Hepatitis panel. We do not have ultrasound here that distinguishes cirrh osis and fibrosis. But future follow-up will be needed. (6) Elevated WBC count Conclusion/Plan: No evidence of infection. No pneumonia, no abdominal pain, no UTI. She may have demargination on the basis of stress. If she spikes a temp, show signs and symptoms of infection, will do blood cultures, urine cultures and start empiric antibiotic therapy. At this time no antibiotics and I will wait and see. Qualifiers: Leukocytosis type: leukemoid reaction Qualified Code(s): D72.823 - Leukemoid reaction (7) Bedbound Conclusion/Plan: This patient is morbidly obese. Has no mobility. Toma lift is using her house. 2 caregivers take care of her completely. At this time I am not can to be ordering PT or OT on the basis of that. Will make sure that we rotate her body so that she does not develop pressure ulcers. - Lab Results Lab results reviewed: Yes Jf Bones: 01/06/24 04:19 01/06/24 04:19 Core Measures - Anticipated LOS I expect patient to be DC'd or transferred within 96 hours.: Yes - DVT/VTE - Prophylaxis VTE/DVT Prophylaxis med ordered at admit?: Yes
[2024-01-05] MEDS ORDERED: ZINC OXIDE 20% OINT 30 GM TUBE TOP ONE (16:18)
[2024-01-05] MEDS: SODIUM CHLORIDE 0.9% 1,000 ML IV SCH (16:50)
[2024-01-05] MEDS: methylPREDNISolone SUCCINATE 40 MG/ML VIAL IVP ONE (17:04)
[2024-01-05] MEDS: SODIUM CHLORIDE FLUSH 0.9% 10 ML SYRINGE IVP SCH (17:11)
[2024-01-05 17:14] LABS: CALCIUM 10.7 mg/dL (8.5-10.3)
[2024-01-05 17:16] LABS: POTASSIUM 4.9 mmol/L (3.5-4.5)
[2024-01-05] MEDS: IPRATROPIUM/ALBUTEROL 3 ML NEB INH SCH (18:11)
--- NOTE | 2024-01-05 19:10 | XRAY Report ---
PROCEDURE: Chest for Line Placement INDICATIONS: NG tube placement TECHNIQUE: One view of the chest was acquired. COMPARISON: Chest radiograph 09/23/2023. FINDINGS: Limited view of the chest demonstrates enteric tube coursing below the diaphragm with distal tip proj ecting in the region of the gastric body. Cardiomegaly. No significant pleural effusion or pneumothorax. IMPRESSION: Enteric tube courses below the diaphragm with distal tip projecting in the region of the gastric body . Reviewed by: Silvia Oquendo MD, PhD on 01/05/2024 7:09 PM PDT Approved by: Silvia Oquendo MD, PhD on 01/05/2024 7:09 PM PDT Station ID: [id number]
[2024-01-05] MEDS: carvediloL 12.5 MG TABLET PO SCH (21:00)
[2024-01-05] MEDS ORDERED: predniSONE 20 MG TABLET PO SCH (21:00)
[2024-01-05] MEDS: APIXABAN 5 MG TABLET PO SCH (21:04)
[2024-01-05] MEDS: DEXTROSE 50% ABBOJECT 25 GM/50 ML SYRINGE IVP ONE (21:11)
[2024-01-05] MEDS: INSULIN REGULAR HUMAN 300 UNIT/3 ML VIAL IVP ONE (21:11)
[2024-01-05] MEDS: SODIUM CHLORIDE FLUSH 0.9% 10 ML SYRINGE IVP PRN (21:29)
[2024-01-06 04:26] LABS: BASOPHILS % (AUTO) 0.1 %; HCT - HEMATOCRIT 40.2 % (37.0-47.0); LYMPHOCYTES # (AUTO) 0.4 10^3/uL (1.5-3.5); LYMPHOCYTES % (AUTO) 4.4 %; MEAN CORPUSCULAR HGB CONC 29.9 g/dL (32.0-36.0); MEAN CORPUSCULAR VOLUME 100.5 fL (81.0-99.0); MEAN PLATELET VOLUME 11.1 fL (7.9-10.8); MONOCYTES # (AUTO) 0.3 10^3/uL (0.0-1.0); MONOCYTES % (AUTO) 2.7 %; NEUTROPHILS % (AUTO) 91.9 %; PLT - PLATELET COUNT 179 10^3/uL (130-450); RED CELL DISTRIBUTION WIDTH 13.3 % (12.0-15.0); WHITE BLOOD COUNT 9.8 x10^3/uL (4.8-10.8)
[2024-01-06 04:30] LABS: CALCIUM, IONIZED 1.26 mmol/L (1.15-1.33); VBG PH 7.443 (7.31-7.41)
[2024-01-06 04:46] LABS: MAGNESIUM 2.4 mg/dL (1.7-2.3); PHOSPHORUS 3.5 mg/dL (2.5-5.0)
[2024-01-06 04:50] LABS: BUN - BLOOD UREA NITROGEN 36 mg/dL (6-20); CALCIUM 10.4 mg/dL (8.5-10.3); CARBON DIOXIDE - CO2 > 45 mmol/L (21-32); CHLORIDE 97 mmol/L (101-111); CREATININE 0.7 mg/dL (0.6-1.3); GFR - MDRD 80 (>89); GLUCOSE 166 mg/dL (74-104); POTASSIUM 3.9 mmol/L (3.5-4.5); SODIUM 146 mmol/L (135-145)
[2024-01-06 05:59] LABS: ABG PH 7.39 (7.35-7.45); ABG PO2 102 mmHg (80-100)
[2024-01-06 06:00] LABS: ABG BASE EXCESS 19.8 mmol/L (-2.0-3.0); ABG HCO3 49.1 mmol/L (22.0-26.0); ABG OXYGEN SATURATION 97 % (94-98); ALLEN TEST POSITIVE
[2024-01-06 06:02] LABS: ABG PCO2 83 mmHg (34-45); ABG TCO2 51.7 MMOL/L (21.0-29.0)
[2024-01-06 06:03] LABS: ABG MODE OF VENTILATION SYNCHRONOUS/TIMES; ABG RESPIRATORY RATE 12 b/min
[2024-01-06] MEDS: methylPREDNISolone SUCCINATE 40 MG/ML VIAL IVP SCH (08:18)
[2024-01-06] MEDS: POTASSIUM CHLORIDE 20 MEQ TABLET PO ONE (08:26)
[2024-01-06] MEDS: LOSARTAN 50 MG TABLET PO SCH (08:41)
[2024-01-06] MEDS ORDERED: ENOXAPARIN 40 MG/0.4 ML SYRINGE SUBQ SCH (09:00)
[2024-01-06] MEDS: LACTULOSE 10 GM /15 ML UDC PO SCH (09:53)
[2024-01-06] MEDS: ACETAMINOPHEN 325 MG TABLET PO PRN (14:20)
--- NOTE | 2024-01-06 15:15 | PROVIDER PROGRESS NOTE ---
Subjective - Prog Note Date Prog Note Date: 01/06/24 Prog Note Time: 15:11 - Subjective Pt reports feeling: Improved Subjective: She does not know what happened. She does not know how she became obtunded. She just knew that she came to the emergency room because since she was not feeling well and short of breath. After that she does not know what happened. She aches all over. Current Medications - Current Medications Current Medications: Active Medications Acetaminophen (Acetaminophen 325 Mg Tablet) 650 mg PO Q4HR PRN PRN Reason: Pain 1 to 4, or Fever Last Admin: 01/06/24 14:20 Dose: 650 mg Albuterol/Ipratropium (Ipratropium/Albuterol 3 Ml Neb) 3 ml INH RTQ4H [facility] Last Admin: 01/06/24 12:30 Dose: 3 ml Apixaban (Apixaban 5 Mg Tablet) 5 mg PO BID [facility] Last Admin: 01/06/24 08:31 Dose: 5 mg Carvedilol (Carvedilol 12.5 Mg Tablet) 6.25 mg PO BID [facility] Lactulose (Lactulose 10 Gm /15 Ml Udc) 10 gm PO DAILY [facility] Last Admin: 01/06/24 09:53 Dose: 10 gm Losartan Potassium (Losartan 50 Mg Tablet) 25 mg PO DAILY [facility] Last Admin: 01/06/24 08:41 Dose: 25 mg Multivitamins/Minerals (Multivitamin W/Minerals Tablet) 1 tab PO DAILYWM [facility] Ondansetron HCl (Ondansetron Odt 4 Mg Tablet) 4 mg TL Q6HR PRN PRN Reason: Nausea / Vomiting Ondansetron HCl (Ondansetron 4 Mg/2 Ml Vial) 4 mg IVP Q6HR PRN PRN Reason: Nausea / Vomiting Oxycodone HCl (Oxycodone 5 Mg Tablet) 5 mg PO Q4HR PRN PRN Reason: Pain 5 to 7 Pantoprazole Sodium (Pantoprazole 40 Mg Tablet) 40 mg PO QDAC [facility] Sodium Chloride (Sodium Chloride Flush 0.9% 10 Ml Syringe) 10 ml IVP 0100,0900,1700 [facility] Last Admin: 01/06/24 09:54 Dose: 10 ml Sodium Chloride (Sodium Chloride Flush 0.9% 10 Ml Syringe) 10 ml IVP PRN PRN PRN Reason: NEEDED PER PROVIDER ORDERS Last Admin: 01/05/24 21:29 Dose: 10 ml Omeprazole 20 mg PO BID 04/27/14 carvediloL [Coreg] 6.25 mg PO BID 10/09/21 Atorvastatin [Lipitor] 20 mg PO QPM 04/03/22 Multivitamin/Iron/Folic Acid [Centrum Women Tablet] 2.5 mg PO DAILY 01/04/23 methocarbamoL [Methocarbamol] 750 mg PO QID PRN 01/04/23 Acetaminophen [Tylenol] 650 mg PO Q6H PRN 06/19/23 Apixaban [Eliquis] 5 mg PO BID 06/19/23 Potassium Chloride [Micro-K] 10 meq PO TID 06/19/23 Pregabalin 75 mg PO TID 06/19/23 Letrozole 2.5 mg PO DAILY 08/25/23 Sennosides [Senna Lax] 8.6 - 25.8 mg PO DAILY PRN 11/03/23 Furosemide [Lasix] 60 mg PO BIDDIURETIC 12/28/23 Losartan Potassium 25 mg PO DAILY 01/05/24 predniSONE [Deltasone] 20 mg PO BID 01/05/24 Objective - Vital Signs/Intake & Output Reviewed Vital Signs: Yes Vital Signs: Vital Signs x48h Temp Pulse Pulse Resp BP Pulse Ox O2 Flow Rate 01/06/24 15:00 67 24 110/82 H 96 2 01/06/24 13:11 71 18 128/60 92 2 01/06/24 13:00 74 21 128/60 91 L 2.5 01/06/24 12:34 62 20 01/06/24 12:00 36.7 C 57 L 16 130/60 94 2 01/06/24 11:45 2 01/06/24 11:40 2 01/06/24 11:00 55 L 18 106/67 94 01/06/24 10:00 53 L 17 135/54 H 93 01/06/24 09:00 36.7 C 55 L 19 120/55 L 92 2 01/06/24 08:00 53 L 19 153/77 H 94 Intake & Output: Intake & Output 01/03/24 01/04/24 01/05/24 01/06/24 23:59 23:59 23:59 23:59 Intake Total 1934.083 Output Total 262 972 Balance -262 962.083 - Objective General Appearance: positive: No acute distress, Alert ( Sitting up in bed. BiPAP on her face. Was able to have it off for 20 minutes this morning to get her meds, clean out her mouth, and drink some water.) Eyes Bilateral: positive: PERRL ENT: positive: No signs of dehydration Neck: positive: No JVD Respiratory: positive: No respiratory distress. negative: Wheezes, Rales, Rhonchi Cardiovascular: positive: Regular rate & rhythm Abdomen: positive: Non-tender, No organomegaly, Nml bowel sounds, No distention Skin: positive: Warm, Dry Extremities: positive: Full ROM, No pedal edema Neurologic/Psychiatric: positive: Oriented x3, CN's nml (2-12). negative: Motor nml ( Generalized weakness. Unclear why. She is bedbound. She is able to move all of her extremities but needs a 2-3 person max assist to sit her up and transition her from supine to sitting.) - Lab Results Fish Bones: 01/06/24 04:19 01/06/24 04:19 Other Labs: Lab Results x24hrs 01/06/24 01/06/24 01/06/24 Range/Units 05:48 04:19 04:19 WBC (4.8-10.8) x10^3/uL RBC (4.20-5.40) 10^6/uL Hgb (12.0-16.0) g/dL Hct (37.0-47.0) % MCV (81.0-99.0) fL MCH (27.0-31.0) pg MCHC (32.0-36.0) g/dL RDW (12.0-15.0) % Plt Count (130-450) 10^3/uL MPV (7.9-10.8) fL Neut # (Auto) (1.5-6.6) 10^3/uL Lymph # (Auto) (1.5-3.5) 10^3/uL [place] # (Auto) (0.0-1.0) 10^3/uL Eos # (Auto) (0.0-0.7) 10^3/uL Baso # (Auto) (0.0-0.1) 10^3/uL Absolute Nucleated RBC x10^3/uL Nucleated RBC % /100WBC Bld Gas Analysis Time 0557 Sample Site RIGHT RADIAL ABG pH 7.39 (7.35-7.45) ABG pCO2 83 H* (34-45) mmHg ABG pO2 102 H (80-100) mmHg ABG HCO3 49.1 H (22.0-26.0) mmol/L ABG Total CO2 51.7 H* (21.0-29.0) MMOL/L ABG O2 Saturation 97 (94-98) % ABG Base Excess 19.8 H (-2.0-3.0) mmol/L Lester Test POSITIVE VBG pH 7.443 H (7.31-7.41) Ionized Calcium 1.26 (1.15-1.33) mmol/L Respiration Rate 12 b/min O2 Delivery Device BiPAP Vent Mode SYNCHRONOUS/TIMES FiO2 50.00 Pressure Support Vent 7 cmH2O EPAP 5 cmH2O IPAP 14 cmH2O Sodium 146 H (135-145) mmol/L Potassium 3.9 (3.5-4.5) mmol/L Chloride 97 L (101-111) mmol/L Carbon Dioxide > 45 H* (21-32) mmol/L Anion Gap TNP BUN 36 H (6-20) mg/dL Creatinine 0.7 (0.6-1.3) mg/dL Estimated GFR (MDRD) 80 L (>89) Glucose 166 H (74-104) mg/dL Calcium 10.4 H (8.5-10.3) mg/dL Phosphorus 3.5 (2.5-5.0) mg/dL Magnesium 2.4 H (1.7-2.3) mg/dL Nasal Screen MRSA (PCR) (NEGATIVE) 01/06/24 01/05/24 01/05/24 Range/Units 04:19 17:01 16:35 WBC 9.8 (4.8-10.8) x10^3/uL RBC 4.00 L (4.20-5.40) 10^6/uL Hgb 12.0 (12.0-16.0) g/dL Hct 40.2 (37.0-47.0) % MCV 100.5 H (81.0-99.0) fL MCH 30.0 (27.0-31.0) pg MCHC 29.9 L (32.0-36.0) g/dL RDW 13.3 (12.0-15.0) % Plt Count 179 (130-450) 10^3/uL MPV 11.1 H (7.9-10.8) fL Neut # (Auto) 9.0 H (1.5-6.6) 10^3/uL Lymph # (Auto) 0.4 L (1.5-3.5) 10^3/uL [place] # (Auto) 0.3 (0.0-1.0) 10^3/uL Eos # (Auto) 0.0 (0.0-0.7) 10^3/uL Baso # (Auto) 0.0 (0.0-0.1) 10^3/uL Absolute Nucleated RBC 0.00 x10^3/uL Nucleated RBC % 0.0 /100WBC Bld Gas Analysis Time Sample Site ABG pH (7.35-7.45) ABG pCO2 (34-45) mmHg ABG pO2 (80-100) mmHg ABG HCO3 (22.0-26.0) mmol/L ABG Total CO2 (21.0-29.0) MMOL/L ABG O2 Saturation (94-98) % ABG Base Excess (-2.0-3.0) mmol/L Lester Test VBG pH (7.31-7.41) Ionized Calcium (1.15-1.33) mmol/L Respiration Rate b/min O2 Delivery Device Vent Mode FiO2 Pressure Support Vent cmH2O EPAP cmH2O IPAP cmH2O Sodium (135-145) mmol/L Potassium 4.9 H (3.5-4.5) mmol/L Chloride (101-111) mmol/L Carbon Dioxide (21-32) mmol/L Anion Gap BUN (6-20) mg/dL Creatinine (0.6-1.3) mg/dL Estimated GFR (MDRD) (>89) Glucose (74-104) mg/dL Calcium 10.7 H (8.5-10.3) mg/dL Phosphorus (2.5-5.0) mg/dL Magnesium (1.7-2.3) mg/dL Nasal Screen MRSA (PCR) NEGATIVE (NEGATIVE) Assessment/Plan - Problem List (1) Altered mental status Impression: She presented to the ER as an unfortunate female is dependent on caregivers and has a longstanding history of combined obstructive and restrictive lung disease. The restriction comes from her obesity. The obstruction comes from COPD. She is dependent on BiPAP at night. She is now had 2 admissions for encephalopathy due to hypercapnia as well as hypoxia. The impression I am getting is that the hypercapnia is getting the best of her. There is suggestion of noncompliance and that she takes the mask off at night. But the patient may not be aware she is doing this. I am not seeing evidence of infection as the cause of her encephalopathy. She did have an evaluated ammonia level. She is not on excessively sedated drugs of the methocarbamol. She is not having a stroke. There is no severe electrolyte derangement however she does have a new hypercalcemia. Hypercalcemia is mild. My treatment consisted of BiPAP with settings to reduce her pCO2 and keep her pO2 stable. She is now awake this morning. Alert. Able to swallow. She is drink some water, taking her medicines p.o., and is asking for food. She does not know why this is happening to her. She laments having to come back to the hospital again. I explained that her caregivers describe her taking her mask off at night. She states that she has no recollection of it. If she is doing if she is doing it in her sleep. So I believe her altered mental status is strictly respiratory failure with hypercapnia and hypoxemia from inability to use her CPAP mask at night. Plan: I will speak to her caregivers. I may suggest that the nighttime caregiver check on her every 2 hours and replace the mask of it off her face. I will also see if this patient has a day porter that I can discuss the case with to see if he or she has any recommendations. I did call her [employer]UR[employer], Dr. Von Butt in [place] and left a message with his office to give me a call at his convenience so that we can dis cuss his aunt. Qualifiers: Altered mental status type: stupor Qualified Code(s): R40.1 - Stupor (2) Acute on chronic respiratory failure with hypoxia and hypercapnia Conclusion/Plan: Due to a combination of chronic respiratory failure from obesity hypoventilation and obstructive sleep apnea and history of COPD. Treatment is as above for her metabolic encephalopathy. On albuterol inhalers as needed. . No empiric antibiotic therapy at this time since I am not finding evidence of pneumonia on CT scan. Today's Blood gas has a compensated respiratory acidosis due to metabolic alkalosis. Her pH is 7.39, pCO2 83, pO2 102, total CO2 51. On serum blood work her carbon dioxide has been greater than 45 since admission. She is consistently high for the last 2 years. The last time it was consistently in the 30s was in the summer 2022. The last time it was normal was in 2021. Today I plan on weaning her off BiPAP. Using supplemental oxygen while she is awake. And resuming her BiPAP when she goes to sleep. (3) Hypercalcemia Conclusion/Plan: I have reviewed the EMR. She had normal calcium levels until this August. She went barely above normal at 10.5. December she was 10.6. After her December admission she dropped back down to normal again. And now with this admission she is back to being 10.7. There is no suggestion of excessive calcium intake. Plan: PTH level (4) Hyperkalemia Conclusion/Plan: With one of her admissions she was noted to be hypokalemic and was discharged on 10 mill equivalents 3 times a day of potassium. She is not on spironolactone. She is not on Lasix. I suspect her hyperkalemia may be iatrogenic due to the potassium prescription. I will be holding the potassium while she is here. Last night a repeat potassium was 4.9. As such I did give her an amp of D50 and insulin IV push to bring down her potassium. This morning she is 3.9. Plan: Discontinue the supplemental potassium that she takes at home. (5) Increased ammonia level Conclusion/Plan: New diagnosis for her. There is no previous history of hepatic encephalopathy from liver disease. Plan: Hepatitis panel. We do not have ultrasound here that distinguishes cirrhosis and fibrosis. But future follow-up will be needed. (6) Elevated WBC count Conclusion/Plan: Present on admission and now resolved. No evidence of infection. No pneumonia, no abdominal pain, no UTI. She may have demargination on the basis of stress. If she spikes a temp, show signs and symptoms of infection, will do blood cultures, urine cultures and start empiric antibiotic therapy. At this time no antibiotics and I will wait and see. Qualifiers: Leukocytosis type: leukemoid reaction Qualified Code(s): D72.823 - Leukemoid reaction (7) Bedbound Conclusion/Plan: This patient is morbidly obese. Has no mobility. [employer]oma lift is using her house. 2 caregivers take care of her completely. At this time I am not can to be ordering PT or OT on the basis of that. Will make sure that we rotate her body so that she does not develop pressure ulcers. (6) Elevated WBC count Qualifiers: Leukocytosis type: leukemoid reaction Qualified Code(s): D72.823 - Leukemoid reaction
--- NOTE | 2024-01-06 15:51 | PHARMACY PROGRESS NOTE ---
- Best Possible Medication History Admit Date and Time: 01/05/24 1531 Processed by: Pharmacy Medications reviewed in ED?: Yes Medication History completed: Yes Patient Interview: Pt unable to participate (pt unable to confirm home meds) Secondary Source(s): Insurance records, Previous admit records (recent hospitalization) As the person ultimately responsible for medication therapy, providers are able to order a medication from an existing home medication list in [facility] via the "Reconcile Routine" prior to Confirmation of that medication by account support associate. Such practice is discouraged except when the physician, in their clinical judgment, deems that a medical need exists for a medication without regard to previous use.
[2024-01-06] MEDS: MULTIVITAMIN W/MINERALS TABLET PO SCH (17:04)
[2024-01-06] MEDS: carvediloL 12.5 MG TABLET PO SCH (21:04)
[2024-01-07 04:19] LABS: EOSINOPHILS # (AUTO) 0.1 10^3/uL (0.0-0.7); EOSINOPHILS % (AUTO) 0.8 %; HCT - HEMATOCRIT 36.4 % (37.0-47.0); HGB - HEMOGLOBIN 11.1 g/dL (12.0-16.0); LYMPHOCYTES # (AUTO) 1.2 10^3/uL (1.5-3.5); LYMPHOCYTES % (AUTO) 13.6 %; MEAN CORPUSCULAR HEMOGLOBIN 29.9 pg (27.0-31.0); MEAN CORPUSCULAR HGB CONC 30.5 g/dL (32.0-36.0); MEAN CORPUSCULAR VOLUME 98.1 fL (81.0-99.0); MEAN PLATELET VOLUME 11.3 fL (7.9-10.8); MONOCYTES # (AUTO) 0.9 10^3/uL (0.0-1.0); MONOCYTES % (AUTO) 9.9 %; NEUTROPHILS # (AUTO) 6.6 10^3/uL (1.5-6.6); NEUTROPHILS % (AUTO) 74.9 %; PLT - PLATELET COUNT 176 10^3/uL (130-450); RED BLOOD COUNT 3.71 10^6/uL (4.20-5.40); RED CELL DISTRIBUTION WIDTH 13.5 % (12.0-15.0); WHITE BLOOD COUNT 8.8 x10^3/uL (4.8-10.8)
[2024-01-07 04:20] LABS: CALCIUM, IONIZED 1.25 mmol/L (1.15-1.33); VBG PH 7.525 (7.31-7.41)
[2024-01-07 04:36] LABS: MAGNESIUM 2.2 mg/dL (1.7-2.3); PHOSPHORUS 1.7 mg/dL (2.5-5.0)
[2024-01-07 04:49] LABS: CALCIUM 10.3 mg/dL (8.5-10.3); CREATININE 0.7 mg/dL (0.6-1.3); POTASSIUM 3.4 mmol/L (3.5-4.5)
[2024-01-07] MEDS: NEUTRA-PHOS 250 MG TABLET PO SCH ×2 (06:50→16:00)
[2024-01-07] MEDS: PANTOPRAZOLE 40 MG TABLET PO SCH (06:50)
[2024-01-07] MEDS: POTASSIUM CHLORIDE 20 MEQ TABLET PO SCH ×2 (08:11→16:00)
--- NOTE | 2024-01-07 11:47 | PROVIDER PROGRESS NOTE ---
Subjective - Prog Note Date Prog Note Date: 01/07/24 Prog Note Time: 11:55 - Subjective Pt reports feeling: Improved Subjective: she went from being obtunded and not responsive to her sternal rub to waking up and speaking to me a little bit January 05. Today she is awake, alert, appropriate, lucid. She has a congested cough. She would like to go home because she has guests coming this weekend. Current Medications - Current Medications Current Medications: Active Medications Acetaminophen (Acetaminophen 325 Mg Tablet) 650 mg PO Q4HR PRN PRN Reason: Pain 1 to 4, or Fever Last Admin: 01/07/24 08:10 Dose: 650 mg Albuterol/Ipratropium (Ipratropium/Albuterol 3 Ml Neb) 3 ml INH RTQ4H [facility] Last Admin: 01/07/24 10:49 Dose: 3 ml Apixaban (Apixaban 5 Mg Tablet) 5 mg PO BID [facility] Last Admin: 01/07/24 08:11 Dose: 5 mg Carvedilol (Carvedilol 12.5 Mg Tablet) 6.25 mg PO BID [facility] Last Admin: 01/07/24 08:11 Dose: Not Given Lactulose (Lactulose 10 Gm /15 Ml Udc) 10 gm PO DAILY [facility] Last Admin: 01/07/24 08:11 Dose: Not Given Losartan Potassium (Losartan 50 Mg Tablet) 25 mg PO DAILY [facility] Last Admin: 01/07/24 08:10 Dose: 25 mg Multivitamins/Minerals (Multivitamin W/Minerals Tablet) 1 tab PO DAILYWM [facility] Last Admin: 01/07/24 08:09 Dose: 1 tab Ondansetron HCl (Ondansetron Odt 4 Mg Tablet) 4 mg TL Q6HR PRN PRN Reason: Nausea / Vomiting Ondansetron HCl (Ondansetron 4 Mg/2 Ml Vial) 4 mg IVP Q6HR PRN PRN Reason: Nausea / Vomiting Oxycodone HCl (Oxycodone 5 Mg Tablet) 5 mg PO Q4HR PRN PRN Reason: Pain 5 to 7 Pantoprazole Sodium (Pantoprazole 40 Mg Tablet) 40 mg PO QDAC [facility] Last Admin: 01/07/24 06:50 Dose: 40 mg Sodium Chloride (Sodium Chloride Flush 0.9% 10 Ml Syringe) 10 ml IVP 0100,0900,1700 [facility] Last Admin: 01/07/24 00:25 Dose: Not Given Sodium Chloride (Sodium Chloride Flush 0.9% 10 Ml Syringe) 10 ml IVP PRN PRN PRN Reason: NEEDED PER PROVIDER ORDERS Last Admin: 01/06/24 21:04 Dose: 10 ml Omeprazole 20 mg PO BID 04/27/14 carvediloL [Coreg] 6.25 mg PO BID 10/09/21 Atorvastatin [Lipitor] 20 mg PO QPM 04/03/22 Multivitamin/Iron/Folic Acid [Centrum Women Tablet] 2.5 mg PO DAILY 01/04/23 methocarbamoL [Methocarbamol] 750 mg PO QID PRN 01/04/23 Acetaminophen [Tylenol] 650 mg PO Q6H PRN 06/19/23 Apixaban [Eliquis] 5 mg PO BID 06/19/23 Potassium Chloride [Micro-K] 10 meq PO TID 06/19/23 Pregabalin 75 mg PO TID 06/19/23 Letrozole 2.5 mg PO DAILY 08/25/23 Sennosides [Senna Lax] 8.6 - 25.8 mg PO DAILY PRN 11/03/23 Furosemide [Lasix] 60 mg PO BIDDIURETIC 12/28/23 Losartan Potassium 25 mg PO DAILY 01/05/24 predniSONE [Deltasone] 20 mg PO BID 01/05/24 traZODone [Desyrel] 100 mg PO QPM 01/06/24 Objective - Vital Signs/Intake & Output Reviewed Vital Signs: Yes Vital Signs: Vital Signs x48h Temp Pulse Pulse Resp BP Pulse Ox O2 Flow Rate 01/07/24 11:00 54 L 18 126/101 H 98 2 01/07/24 10:52 54 L 18 2 01/07/24 10:00 59 L 16 102/64 95 2 01/07/24 09:00 61 20 167/112 H 95 2 01/07/24 08:00 37.1 C 57 L 18 170/78 H 99 2 01/07/24 07:00 54 L 19 167/61 H 92 2 01/07/24 06:20 58 L 18 2 01/07/24 06:00 49 L 15 161/92 H 92 01/07/24 05:00 52 L 19 174/56 H 94 01/07/24 04:00 49 L 19 152/54 H 94 Intake & Output: Intake & Output 01/04/24 01/05/24 01/06/24 01/07/24 23:59 23:59 23:59 23:59 Intake Total 3170.083 1220 Output Total 262 1283 500 Balance -262 1887.083 720 - Objective General Appearance: positive: No acute distress, Alert, Other ( Pleasant, morbidly obese female, sitting up in bed, Has eaten breakfast.) Eyes Bilateral: positive: PERRL, EOMI ENT: positive: No signs of dehydration Neck: positive: No JVD. negative: Stiff neck Respiratory: positive: No respiratory distress, Rhonchi ( in the back of her throat. More upper airway. Clears with coughing.), Other ( Occasional cough. Able to bring up phlegm but then swallows) Cardiovascular: positive: Regular rate & rhythm Abdomen: positive: Non-tender, No organomegaly, Nml bowel sounds, No distention Skin: positive: Warm, Dry, Pallor Extremities: positive: Full ROM, Pedal edema (nonpitting and more like canc kles.). negative: Nml appearance (R ankle laterally rotated, permanent from old fx over 20 yrs ago) Neurologic/Psychiatric: positive: Oriented x3, CN's nml (2-12). negative: Motor nml ( Not clear why she is bedbound. She has no focal deficits.) - Lab Results Fish Bones: 01/07/24 04:13 01/07/24 04:13 Other Labs: Lab Results x24hrs 01/07/24 01/07/24 01/07/24 Range/Units 04:13 04:13 04:13 WBC (4.8-10.8) x10^3/uL RBC (4.20-5.40) 10^6/uL Hgb (12.0-16.0) g/dL Hct (37.0-47.0) % MCV (81.0-99.0) fL MCH (27.0-31.0) pg MCHC (32.0-36.0) g/dL RDW (12.0-15.0) % Plt Count (130-450) 10^3/uL MPV (7.9-10.8) fL Neut # (Auto) (1.5-6.6) 10^3/uL Lymph # (Auto) (1.5-3.5) 10^3/uL [place] # (Auto) (0.0-1.0) 10^3/uL Eos # (Auto) (0.0-0.7) 10^3/uL Baso # (Auto) (0.0-0.1) 10^3/uL Absolute Nucleated RBC x10^3/uL Nucleated RBC % /100WBC VBG pH 7.525 H (7.31-7.41) Ionized Calcium 1.25 (1.15-1.33) mmol/L Sodium 145 (135-145) mmol/L Potassium 3.4 L (3.5-4.5) mmol/L Chloride 98 L (101-111) mmol/L Carbon Dioxide 45 H* (21-32) mmol/L Anion Gap 2.0 L (6-13) BUN 33 H (6-20) mg/dL Creatinine 0.7 (0.6-1.3) mg/dL Estimated GFR (MDRD) 80 L (>89) Glucose 122 H (74-104) mg/dL Calcium 10.3 (8.5-10.3) mg/dL Phosphorus 1.7 L (2.5-5.0) mg/dL Magnesium 2.2 (1.7-2.3) mg/dL Total Intact PTH 78 (12-88) pg/mL 01/07/24 Range/Units 04:13 WBC 8.8 (4.8-10.8) x10^3/uL RBC 3.71 L (4.20-5.40) 10^6/uL Hgb 11.1 L (12.0-16.0) g/dL Hct 36.4 L (37.0-47.0) % MCV 98.1 (81.0-99.0) fL MCH 29.9 (27.0-31.0) pg MCHC 30.5 L (32.0-36.0) g/dL RDW 13.5 (12.0-15.0) % Plt Count 176 (130-450) 10^3/uL MPV 11.3 H (7.9-10.8) fL Neut # (Auto) 6.6 (1.5-6.6) 10^3/uL Lymph # (Auto) 1.2 L (1.5-3.5) 10^3/uL [place] # (Auto) 0.9 (0.0-1.0) 10^3/uL Eos # (Auto) 0.1 (0.0-0.7) 10^3/uL Baso # (Auto) 0.0 (0.0-0.1) 10^3/uL Absolute Nucleated RBC 0.00 x10^3/uL Nucleated RBC % 0.0 /100WBC VBG pH (7.31-7.41) Ionized Calcium (1.15-1.33) mmol/L Sodium (135-145) mmol/L Potassium (3.5-4.5) mmol/L Chloride (101-111) mmol/L Carbon Dioxide (21-32) mmol/L Anion Gap (6-13) BUN (6-20) mg/dL Creatinine (0.6-1.3) mg/dL Estimated GFR (MDRD) (>89) Glucose (74-104) mg/dL Calcium (8.5-10.3) mg/dL Phosphorus (2.5-5.0) mg/dL Magnesium (1.7-2.3) mg/dL Total Intact PTH (12-88) pg/mL ABX Reporting Has patient been on IV antibiotics over the past 48 hours?: No Assessment/Plan - Problem List (1) Altered mental status Impression: This has resolved. This mornign she is awake, alert. Lucid speech. Good questions. She wants to go home because she has guests arriving the day after tomorrow. She presented to the ER as an unfortunate female is dependent on caregivers and has a longstanding history of combined obstructive and restrictive lung disease. The restriction comes from her obesity. The obstruction comes from COPD. She is dependent on BiPAP at night. She is now had 2 admissions for encephalopathy due to hypercapnia as well as hypoxia. The impression I am getting is that the hypercapnia is getting the best of her. There is suggestion of noncompliance and that she takes the mask off at night. But the patient may not be aware she is doing this. I am not seeing evidence of infection as the cause of her encephalopathy. She did have an evaluated ammonia level. She is not on excessively sedated drugs of the methocarbamol. She is not having a stroke. There is no severe electrolyte derangement however she does have a new hypercalcemia. Hypercalcemia is mild. She doesn't have acute CHF right now. Echocardiogram done with this admission shows mild concentric left ventricular hypertrophy. Overall left ventricular systolic function is normal with an ejection fraction of 55 to 60%. She has grade 1 diastolic dysfunction. Right ventricular systolic function is normal with mild aortic regurgitation. Her atria are normal. They cannot calculate her RVSP because of insufficient TR jet. Her inferior vena cava was normal with greater than 50% inspiratory collapse which suggested an RAP of 3 mmHg My treatment consisted of BiPAP with settings to reduce her pCO2 and keep her pO2 stable. In the ER triage, she presented as still talking but as she stayed, she became more and more lethargic then frankly obtunded. No BiPAP in the ER. Repeat ABG showed severe hypercapnea developing over the hours she was there. Once she was admitted to ICU with the BiPAP she slowly woke up. On 01/05 she was alert. Able to swallow. She was drinking some water, taking her medicines p.o., and was asking for food. She did not know why this is happening to her. She lamented having to come back to the hospital again. I explained that her caregivers describe her taking her mask off at night. She states that she has no recollection of it. If she is doing if she is doing it in her sleep. So I believe her altered mental status is strictly respiratory failure with hypercapnia and hypoxemia from inability to use her CPAP mask at night. I did try to speak to her DURABLE POWER OF DATA CONVERSION DEVELOPER, Dr. Von Butt. He lives in [place]. I left my number with his office but I do not know if he is can to be of the get back to me. I asked her to please give me his number. She does not have it on her but she will call her sister and ask for her nephew's number. Today she is completely awake, alert, appropriate. Understands the instructions that we need to give her caregivers with regards to going into her room on an hourly basis at night to make sure she has the mask on. If she is going to take a nap during the day she needs to put the mask on during the day. Hopefully this will prevent her from getting hypercapnic. In reviewing her blood gases, they are acceptable now. However, serum CO2 is still high. She has been above 45 since admission. Today she is at 45. I would like her to be below that. She has a severe respiratory acidosis with a severe compensating metabolic alkalosis. One of the ways I know that were achieving goal and stabilizing her status is if her serum CO2 comes down to 40 or below. So I have asked her to please stay another day. I totally understand that she wants to be home for her family. She is very appropriate today. But hopefully we will focus on respiratory hygiene, BiPAP when she naps, and see if we can get this C O2 to 40. Qualifiers: Altered mental status type: stupor Qualified Code(s): R40.1 - Stupor (2) Acute on chronic respiratory failure with hypoxia and hypercapnia Conclusion/Plan: Due to a combination of chronic respiratory failure from obesity hypoventilation and obstructive sleep apnea and history of COPD. Treatment is as above for her metabolic encephalopathy. On albuterol inhalers as needed. . No empiric antibiotic therapy at this time since I am not finding evidence of pneumonia on CT scan. I was able to successfully wean her off BiPAP yesterday. She is on supplemental oxygen while awake. I am resuming BiPAP when she goes to sleep. (3) Hypercalcemia resolved Conclusion/Plan: I have reviewed the EMR. She had normal calcium levels until this August. She went barely above normal at 10.5. December, she was 10.6. After her December admission she dropped back down to normal again. And now with this admission she is back to being 10.7. There is no suggestion of excessive calcium intake. Without any intervention on my part, her calcium is dropped back to normal. PTH is 78. This is a normal level. (4) Hyperkalemia resolved, now hypokalemia Conclusion/Plan: With one of her admissions she was noted to be hypokalemic and was discharged on 10 mEq, 3 times a day, of potassium. She is not on spironolactone. She is not on Lasix or MODESTO/ARB. I suspect her hyperkalemia may be iatrogenic due to the potassium prescription. I will be holding the potassium while she is here. 01/04 evening repeat potassium was 4.9. As such I did give her an amp of D50 and insulin IV push to bring down her potassium. 01/05 she was 3.9. Today she is 3.4 Plan: resume 10 mEq of K once a day. (5) Increased ammonia level Conclusion/Plan: New diagnosis for her. There is no previous history of hepatic encephalopathy from liver disease. I started her on lactulose. That resulted in 6 bowel movements. She is not happy about that. Hepatitis panel has been drawn and results are pending. Plan: She will need future outpatient follow-up. I will reduce the lactulose to every other day if not every third day. Encephalopathy has resolved at this time (6) Elevated WBC count resolved Conclusion/Plan: Present on admission and now resolved. No evidence of infection. No pneumonia, no abdominal pain, no UTI. She may have demargination on the basis of stress. If she spikes a temp, show signs and symptoms of infection, will do blood cultures, urine cultures and start empiric antibiotic therapy. At this time no antibiotics and I will wait and see. Qualifiers: Leukocytosis type: leukemoid reaction Qualified Code(s): D72.823 - L eukemoid reaction (7) Bedbound Conclusion/Plan: This patient is morbidly obese. Has no mobility.She broke her ankle 20 years ago. Right 1. Was not operated on. It healed badly and that is now permanently fixed and a laterally rotated position. After a while it just became too painful to walk on so she just stopped walking. Gradually gained more weight. Became chair bound. Then bedbound. Toma lift is using her house. 2 caregivers take care of her completely. At this time I will not be ordering PT or OT on the basis of that. Will make sure that we rotate her body so that she does not develop pressure ulcers.
[2024-01-07 14:45] LABS: POTASSIUM 3.5 mmol/L (3.5-4.5)
[2024-01-07 14:51] LABS: PHOSPHORUS 1.7 mg/dL (2.5-5.0)
[2024-01-07] MEDS: FLUTICASONE NASAL SPRAY NAS SCH (16:01)
[2024-01-07] MEDS: oxyCODONE 5 MG TABLET PO PRN (23:51)
[2024-01-08 03:13] LABS: HBsAG SCREEN Negative (Negative); HCV AB Non Reactive (Non Reactive); HEPATITIS B CORE IGM AB Negative (Negative)
[2024-01-08 04:41] LABS: BASOPHILS % (AUTO) 0.2 %; EOSINOPHILS # (AUTO) 0.2 10^3/uL (0.0-0.7); EOSINOPHILS % (AUTO) 2.3 %; HCT - HEMATOCRIT 37.8 % (37.0-47.0); HGB - HEMOGLOBIN 11.5 g/dL (12.0-16.0); LYMPHOCYTES # (AUTO) 1.5 10^3/uL (1.5-3.5); LYMPHOCYTES % (AUTO) 16.6 %; MEAN CORPUSCULAR HEMOGLOBIN 30.1 pg (27.0-31.0); MEAN CORPUSCULAR HGB CONC 30.4 g/dL (32.0-36.0); MEAN PLATELET VOLUME 11.2 fL (7.9-10.8); MONOCYTES # (AUTO) 0.8 10^3/uL (0.0-1.0); NEUTROPHILS # (AUTO) 6.6 10^3/uL (1.5-6.6); NEUTROPHILS % (AUTO) 71.4 %; PLT - PLATELET COUNT 188 10^3/uL (130-450); RED BLOOD COUNT 3.82 10^6/uL (4.20-5.40); RED CELL DISTRIBUTION WIDTH 13.9 % (12.0-15.0); WHITE BLOOD COUNT 9.2 x10^3/uL (4.8-10.8)
[2024-01-08 04:52] LABS: CALCIUM, IONIZED 1.2 mmol/L (1.15-1.33); VBG PH 7.548 (7.31-7.41)
[2024-01-08 05:03] LABS: MAGNESIUM 2.1 mg/dL (1.7-2.3); PHOSPHORUS 2.4 mg/dL (2.5-5.0)
[2024-01-08 05:06] LABS: CREATININE 0.6 mg/dL (0.6-1.3); POTASSIUM 3.5 mmol/L (3.5-4.5)
[2024-01-08] MEDS ORDERED: DEXTROSE 5% 1,000 ML IV SCH (09:00)
--- NOTE | 2024-01-08 11:26 | Discharge Plan ---
Discharge Plan Problem Reviewed?: Yes Disposition: Home, Self Care Condition: Stable Prescriptions: Fluticasone [Flonase] 1 sprays ALBERTO DAILY #1 each Multivitamin W/Minerals [Theragran M] 1 tab PO DAILYWM #100 tab Diet: Regular Activity Restrictions: Activity as Tolerated Shower Restrictions: No Driving Restrictions: Yes (no driving) Assistance Devices: Wheelchair, Other (jeanne lift at home) Health Concerns: Unfortunately you have a long history of obstructive sleep apnea and obesity hypoventilation syndrome that results on a very sensitive dependence on CPAP at home. You have had several admissions in the last few months with the CPAP mask was not on your face and that let you sleep into a type of carbon dioxide narcosis. And then your oxygen level will drop. You have responded quickly to our BiPAP and then were able to send you home. You come back in again with the same problem. You need to be transferred to the ICU and put on BiPAP. Your blood gas showed a very high level of carbon dioxide 180. Normal is 40. When your carbon dioxide in your blood gas gets that high, it makes your blood aci dotic. Your kidneys then compensate by trying to hold onto as much buffered alkalotic chemical as possible, which is serum bicarbonate. So your serum bicarbonate gets very, very high as well. Your blood gas normalized to an acceptable level but it is still not normal. We think that you chronically live with a carbon dioxide blood gas that is probably in the 60s if not 70s. Your blood bicarbonate level is still high trying to buffer that acid. But it is dropped down. Once that dropped down to an acceptable level we feel you are stable for home discharge Plan of Treatment: 1. Please see your primary care provider in the next 1 to 2 weeks for them to check your blood work in the form of a BMP. I am looking to see that your serum bicarbonate or CO2 goes down into the 30s. 2. Please make sure that your CPAP mask is used every time you go to sleep. Even when you take a nap during the day. Your caregivers need to check on you regularly in the middle of the night. Even if it is hourly to make sure the mask is on your face. 3. Please, practice incentive spirometry. It is a tube for you suck in a breath as deep as you can to open up your lung space. Do that at least 3-4 times a day. 4. We are sending you home with a bronchodilator called albuterol. You have a bit of asthma/COPD with your disease. You wheeze. This bronchodilator will he lp with wheezing and open up your lung space. We have sent it is a durable medical good prescription to [facility]. The medicine tubules will be delivered to your house this afternoon. The nebulizer machine with tubing will be delivered to you at the hospital before discharge. 5. I did attempt to try and call your DURABLE POWER OF LINER ROLL CHANGER, Von Butt, and left my name and number for him to call me. I believe he has multiple offices through the [facility] so I do not know which office got the message. Please let him know that I would appreciate speaking to him. Have him call me at [phone]. Care Goals: To reduce the round of readmissions you have due to your lung status No Smoking: If you smoke, Please STOP! Call for help. Follow-up with: Miryam Potts PA-C [Primary Care Provider] -
--- NOTE | 2024-01-08 12:22 | DISCHARGE SUMMARY ---
"Discharge Summary Admit Date: 01/05/24 Discharge Date: 01/08/24 Discharging Provider: Bren Morales MD Primary Care Provider: BIANKA Quinn Code Status: Attempt Resuscitation (but do not intubate) Condition at Discharge: Stable Discharge Disposition: 01 Home, Self Care - DIAGNOSES Discharge Diagnoses with Status of Each Condition: 1. Altered mental status 2. Acute on chronic respiratory failure with hypoxia and hypercapnia due to obesity hypoventilation syndrome and obstructive sleep apnea 3. Hypercalcemia 4. Hyperkalemia 5. Increased ammonia level 6. Fatty liver on CT 7. Elevated white cell count without infection 8. Bedbound status #9. COPD without exacerbation - HPI History of Present Illness: 83-year-old female well-known to our service. She has COPD with obstructive sleep apnea and obesity hypoventilation syndrome. She is essentially bedbound and uses CPAP at night. However, sometimes the mask comes off. Her most recent hospitalization for which she was just discharged had to do with the mask falling off her face. Caregivers not realizing it. In the nanny caregiver finding her unresponsive. When she was in the hospital she was put in ICU, BiPAP started. Patient gradually woke up as pCO2 went down. She was discharged last week. Now returns with a recurrent problem of altered mental status. No antecedent history of fevers, chills, cough. She does have a diagnosis of recurrent breast cancer that is triple negative. She is not a surgical candidate so she has been on letrozole. She does not have a history of alcohol abuse or hepatic encephalopathy. While she has some cognitive deficits, they are not severe enough that DPOA has been activated. She has a nephew Von who is a physician at the [employer] and he is her first contact for DPOA. She is a patient who does want full resuscitation if she were to stop breathing or have her heartbeat stop. However she does not want to be intubated. When she came to the emergency room she was alert, oriented and able to converse with the ER doctor. In the emergency room, she was evaluated for respiratory failure and the initial blood gas was relatively normal for her. pCO2 on venous blood gas was in the 70s but pH was normal for her. Chest x-ray showed whiteout of the left lung. The white out of the lung was new for her. We compared it to a chest x-ray from December. Because there was incongruency between the blood gas and a chest x-ray the telehealth provider did not want to admit this patient until the ER provider could more fully delineate why this patient was decompensating. As such a chest CT was ordered and the chest CT does not show white out of the lung. She has scant pleural effusions. No pneumonia. A very large pulmonary artery indicating probable pulmonary hypertension. While in the CT suite, oxygen was not bled into the mask that she needed. And BiPAP mask was not completely sealed her face. We think that she may have become more hypercarbic secondary to that. She became obtunded and unresponsive to sternal rub. She was kept in the ER with BiPAP. Several blood gases been done. A second blood gas shows her to have severe hypercapnia and hypoxemia. That was at 6 in the morning. By noon today, she has improved. pCO2 is going down. pH is improving. The ER provider would like us to admit her for treatment of acute on chronic respiratory failure with hypoxia and hypercapnia. Again most likely due to incorrect CPAP usage. We are not seeing pneumonia. We did request an ammonia level to be done in the ER and that is in the 90s. This patient does not have a history of hepatic encephalopathy but does have fatty liver on CT and ultraso und. As such we are admitting the patient to ICU for BiPAP use. She is slowly improving with mental status but is not back to baseline. At baseline this patient is awake and alert enough to communicate effectively and let providers and nursing know what she wants. History - Past Medical History Cardiovascular: reports: Congestive heart failure, Hypertension, High cholesterol, Coronary artery disease, Valve disorder Respiratory: reports: Shortness of breath, Sleep apnea, CPAP use Neuro: reports: Headaches, Peripheral neuropathy GI: reports: GERD, Other REGROOVER: reports: Breast cancer, Other () : reports: Incontinence, Frequency HEENT: reports: Chronic vision loss Psych: reports: None Musculoskeletal: reports: Osteoarthritis, Fibromyalgia, Chronic back pain, Other Derm: reports: Rosacea MRSA Hx?: No - Past Surgical History General: reports: Cholecystectomy, Appendectomy, Colonoscopy /REGROOVER: reports: Hysterectomy, Oophrectomy, Other HEENT: reports: Cataracts Derm: reports: Skin cancer surgery - CONSULTS | PROCEDURES Procedures: Chest x-ray #1 has near complete opacification of the left hemithorax. Pleural effusion with atelectasis suspected. The process is new compared to December 28, [address] done the next day has small left and trace right pleural effusion with prominent atelectasis in both lungs. Overall low lung volumes are noted bilaterally. Marked cardiomegaly, main pulmonary artery measures 4 cm which is seen in the setting of pulmonary hypertension. Chest x-ray #2 done for NG tube placement the same day is a chest CT shows resolution of the white lung. Cardiomegaly. No significant pleural effusion or pneumothorax. 2 CTs of the head. The first CT did not have stroke, hemorrhage or mass. Questionable abnormal increased density in multiple venous sinuses. Symmetric proptosis. MRI recommended with and without contrast enhanced CT to look at the dural venous sinuses. A second CT of the head CT showed a filling defect present in the peripheral/lateral aspect of the right transverse sinus most likely representing an arachnoid granulation tissue. However cannot exclude focal nonocclusive thrombus. No other findings suspicious for dural venous sinus thrombosis. - HOSPITAL COURSE Hospital Course: in the ER the patient had deteriorated significantly with the pCO2 being 180. We transferred to the unit and she was placed on BiPAP and had a gradual reduction in her pCO2 as she responded to respiratory support. The day before discharge she felt stable and was asking to go home. However I noted that her serum CO2 was still 45. I told her that I really needed her to have 1 more night of BiPAP support therapy. The serum CO2 dropping would let me know that we were moving in the right direction. On the day of discharge it did decrease. I stressed to her many, many times that the BiPAP mask must be used anytime she is asleep such as nighttime or taking a nap during the day. That she must insist that her caregivers check on her frequently at night to keep the BiPAP going. Not much more was done for this isatu elderly patient. She has family coming to visit her this weekend and is excited to get home. With her last discharge, prior to this been, this patient was prescribed a bronchodilator to help her wi th her COPD. However she was never able to get the equipment or the bronchodilator. With this hospitalization we have contacted [facility] and albuterol solution will be delivered to her house today. And [facility] has dropped off a nebulizer machine with tubing here at the hospital prior to her going home. At discharge temperature was 36.7. Heart rate 66. Blood pressure 161/74. Respirations 14. She is 92% saturated on 2 L. She is sitting up in bed, alert, oriented, appropriate speech patterns. No slurred speech. Neck is thick, difficult to assess for JVD. Lungs have diminished breath sounds at the bases and she does have a prolonged and exhalation phase but no wheezing. She has no increased respiratory effort, no tripoding. Regular rate and rhythm. Distant cardiac tones. Abdomen has a large, large pannus with faint Stacy intertrigo in the folds. Normal bowel sounds. Nontender. No masses palpable. Extremities are large in tree trunk. She is more cankles and nonpitting edema. No focal deficits. Right leg especially is externally rotated especially the foot. She says that is where she broke her foot and has been immobile since she broke it. This document was made in part using voice recognition software. While efforts are made to proofread this document, sound alike and grammatical errors may occur. Greater than 30 minutes was spent coronary discharge - ALLERGIES Allergies/Adverse Reactions: Allergies Allergy/AdvReac Type Severity Reaction Status Date / Time No Known Drug Allergies Allergy Verified 01/05/24 07:23 - MEDICATIONS Home Medications: Ambulatory Orders Medication Instructions Recorded Confirmed Omeprazole 20 mg PO BID 04/27/14 01/05/24 carvediloL [Coreg] 6.25 mg PO BID 10/09/21 01/05/24 Atorvastatin [Lipitor] 20 mg PO QPM 04/03/22 01/05/24 Multivitamin/Iron/Folic Acid 2.5 mg PO DAILY 01/04/23 01/05/24 [Centrum Women Tablet] methocarbamoL [Methocarbamol] 750 mg PO QID PRN 01/04/23 01/05/24 Acetaminophen [Tylenol] 650 mg PO Q6H PRN 06/19/23 01/05/24 Apixaban [Eliquis] 5 mg PO BID 06/19/23 01/05/24 Potassium Chloride [Micro-K] 10 meq PO TID 06/19/23 01/05/24 Pregabalin 75 mg PO TID 06/19/23 01/05/24 Letrozole 2.5 mg PO DAILY 08/25/23 01/05/24 Sennosides [Senna Lax] 8.6 - 25.8 mg PO DAILY PRN 11/03/23 01/05/24 Furosemide [Lasix] 60 mg PO BIDDIURETIC 12/28/23 01/05/24 Ipratropium/Albuterol [Duoneb] 3 ml INH RTQ4H 30 Days #360 ml 12/31/23 01/05/24 Losartan Potassium 25 mg PO DAILY 01/05/24 01/05/24 predniSONE [Deltasone] 20 mg PO BID 01/05/24 01/05/24 traZODone [Desyrel] 100 mg PO QPM 01/06/24 01/06/24 Fluticasone [Flonase] 1 sprays ALBERTO DAILY #1 each 01/08/24 Multivitamin W/Minerals [Theragran 1 tab PO DAILYWM #100 tab 01/08/24 M] - LABS Result Diagrams: 01/08/24 04:35 01/08/24 04:35"
[2024-01-08 17:46] VITALS: BP 161/74; O2SAT 92
[2024-01-09] MEDS ORDERED: LACTULOSE 10 GM /15 ML UDC PO SCH (16:00)
== END 2024-01-08 18:15 | disposition home or self-care (01) | DRG 189 ==
LOC: EDUNIT# → ED 18:09 → ICU 01-05 15:31
PROVIDERS: ADMIT Specialist; ATTEND Specialist
PROC: 5A09457 Assistance with Respiratory Ventilation, 24-96 Consecutive Hours, Continuous Positive Airway Pressure (ICD-10-PCS; principal; 2024-01-05)
DX: J96.21 Acute and chronic respiratory failure with hypoxia (principal); G93.41 Metabolic encephalopathy; R06.02 Shortness of breath; G47.33 Obstructive sleep apnea (adult) (pediatric); E72.20 Disorder of urea cycle metabolism, unspecified; E66.2 Morbid (severe) obesity with alveolar hypoventilation; I50.9 Heart failure, unspecified; E66.01 Morbid (severe) obesity due to excess calories; J98.11 Atelectasis; G93.40 Encephalopathy, unspecified; R05.9 Cough, unspecified; R93.0 Abnormal findings on diagnostic imaging of skull and head, not elsewhere classified; Z68.42 Body mass index [BMI] 45.0-49.9, adult; Z91.148 Patient's other noncompliance with medication regimen for other reason; I50.32 Chronic diastolic (congestive) heart failure; E87.3 Alkalosis; J96.22 Acute and chronic respiratory failure with hypercapnia; R41.82 Altered mental status, unspecified; E83.52 Hypercalcemia; E87.5 Hyperkalemia; K76.0 Fatty (change of) liver, not elsewhere classified; J44.9 Chronic obstructive pulmonary disease, unspecified; R41.89 Other symptoms and signs involving cognitive functions and awareness; I11.0 Hypertensive heart disease with heart failure; E78.00 Pure hypercholesterolemia, unspecified; I25.10 Atherosclerotic heart disease of native coronary artery without angina pectoris; K21.9 Gastro-esophageal reflux disease without esophagitis; D72.823 Leukemoid reaction; R09.89 Other specified symptoms and signs involving the circulatory and respiratory systems; I35.1 Nonrheumatic aortic (valve) insufficiency; Z74.01 Bed confinement status; Z79.01 Long term (current) use of anticoagulants; Z79.52 Long term (current) use of systemic steroids; Z79.899 Other long term (current) drug therapy; Z82.49 Family history of ischemic heart disease and other diseases of the circulatory system; Z83.3 Family history of diabetes mellitus
CPT/HCPCS: 36415; 36600; 70450; 70460; 71045; 71260; 80048; 80053; 80074; 81001; 82140; 82310; 82330; 82803; 83605; 83735; 83970; 84100; 84132; 85025; 85027; 87040; 87150; 93307; 94640; 94660; 94664; 99285; A9270; J1650; J1815; Q9967; 87086

== ENCOUNTER 2024-01-08 18:24 | Outpatient (CLI) | payer MEDICARE, BC | END 2024-01-08 23:59 | disposition home or self-care (01) | LOC: EMS 18:24 | PROVIDERS: ATTEND Specialist | DX: R53.1 Weakness (principal); J44.9 Chronic obstructive pulmonary disease, unspecified; I50.9 Heart failure, unspecified; Z99.81 Dependence on supplemental oxygen; Z74.01 Bed confinement status | CPT/HCPCS: A0425; A0428 ==

== ENCOUNTER 2024-01-11 08:00 | Outpatient (CLI) | payer MEDICARE, BC | END 2024-01-11 23:59 | disposition home or self-care (01) | LOC: PC 08:00 | PROVIDERS: ATTEND Nurse Practitioner Gerontology | DX: Z51.5 Encounter for palliative care (principal); C50.911 Malignant neoplasm of unspecified site of right female breast; I95.9 Hypotension, unspecified; J96.20 Acute and chronic respiratory failure, unspecified whether with hypoxia or hypercapnia; R05.1 Acute cough; E66.2 Morbid (severe) obesity with alveolar hypoventilation; I48.91 Unspecified atrial fibrillation; G89.4 Chronic pain syndrome; Z17.0 Estrogen receptor positive status [ER+]; Z68.42 Body mass index [BMI] 45.0-49.9, adult; Z71.89 Other specified counseling; Z79.899 Other long term (current) drug therapy | CPT/HCPCS: 99349 ==

== ENCOUNTER 2024-01-18 08:00 | Outpatient (CLI) | payer MEDICARE, BC ==
[2024-01-18 17:46] LABS: BILIRUBIN,URINE NEGATIVE (NEGATIVE); GLUCOSE, URINE (UA) NEGATIVE (NEGATIVE); KETONES,URINE (UA) NEGATIVE (NEGATIVE); LEUKOCYTE ESTERASE, URINE SMALL (NEGATIVE); NITRITE,URINE POSITIVE (NEGATIVE); OCCULT BLOOD,URINE NEGATIVE (NEGATIVE); PROTEIN,URINE NEGATIVE (NEGATIVE); UROBILINOGEN,URINE 0.2 (NORMAL) E.U./dL (NORMAL)
[2024-01-18 18:04] LABS: CLARITY,URINE CLEAR (CLEAR)
[2024-01-18 18:05] LABS: BACTERIA,URINE Many /HPF (None Seen); CASTS, URINE 3-5 Hyaline Casts /LPF; CRYSTALS,URINE 3-5 Calcium Oxalate /LPF; RBC,URINE 0-5 /HPF (0-5); SQUAMOUS EPITHELIAL CELL,UR RARE Squamous (<= Few); WBC CLUMPS,URINE PRESENT
== END 2024-01-18 23:59 | disposition home or self-care (01) ==
LOC: LAB.R 08:00
PROVIDERS: ATTEND Nurse Practitioner Gerontology
DX: N39.0 Urinary tract infection, site not specified (principal)
CPT/HCPCS: 81001; 81003; 87077; 87086; 87181

== ENCOUNTER 2024-02-24 08:00 | Outpatient (CLI) | payer MEDICARE, BC | END 2024-02-24 23:59 | disposition home or self-care (01) | LOC: PC 08:00 | PROVIDERS: ATTEND Nurse Practitioner Gerontology | DX: Z51.5 Encounter for palliative care (principal); C50.911 Malignant neoplasm of unspecified site of right female breast; E66.2 Morbid (severe) obesity with alveolar hypoventilation; Z66 Do not resuscitate | CPT/HCPCS: 99349 ==

== ENCOUNTER 2024-05-28 08:08 | Inpatient (IN) ==
--- NOTE | 2024-05-28 08:11 | ED Physician Documentation ---
History of Present Illness Stated complaint Stated Complaint: LETHARGIC Chief complaint Chief Complaint: General Additonal information Additional information: 83-year-old female with history of breast cancer, CHF, obesity hypoventilation syndrome, COPD presents with lethargy. Per report, she was found appearing sleepy and generally weak this morning. Temperature 100.4*F with EMS en route, who gave 500mL fluids for low blood pressure; on arrival, it is 80s/30s. Patient is able to tell me she feels tired and short of breath but denies pain or other changes. POLST with her confirms she would want CPR and IV medications, but no intubation. No other currently available information from recent history. Per medication list, she is on Eliquis and Carvedilol. Per chart review, she is essentially bedbound. She does not want to be intubated but has used BiPAP, which as per notes important for her at night. Review of Systems ROS Constitutional: + fever, no chills Eyes: no visual disturbance, no discharge Ears, Nose, Mouth, Throat: no rhinorrhea, no sore throat Cardiovascular: no chest pain, no palpitations Respiratory: no cough, + shortness of breath Gastrointestinal: no abdominal pain, no vomiting, no diarrhea Genitourinary: no dysuria, no hematuria Musculoskeletal: no back pain, no neck stiffness Skin: no rash, no wound Neurological: no focal weakness, no focal numbness Meds/Allgy Home Medications Ambulatory Orders Medication Instructions Recorded Confirmed omeprazole 20 mg capsule,delayed 20 mg PO BID 04/27/14 05/22/24 release atorvastatin 20 mg tablet 20 mg PO QPM 04/03/22 05/22/24 apixaban 5 mg tablet (Eliquis) 5 mg PO BID 06/19/23 05/22/24 letrozole 2.5 mg tablet 2.5 mg PO DAILY 08/25/23 05/22/24 sennosides 8.6 mg tablet (Senna 8.6 - 25.8 mg PO DAILY PRN 11/03/23 05/22/24 Lax) Constipation losartan 25 mg tablet 25 mg PO DAILY 01/05/24 05/22/24 trazodone 50 mg tablet 100 mg PO QPM 01/06/24 05/22/24 avrpdrajyrex-wjhiahtp-[id number] 1 tab PO DAILYWM #100 tabs 01/08/24 05/22/24 fumarate 19 mg-folic acid 400 mcg tablet (Therapeutic-M) potassium chloride 10 mEq 20 meq (2 x 10 mEq) PO QDAY #180 05/13/24 05/22/24 capsule,extended release caps pregabalin 75 mg capsule 75 mg PO TID 05/13/24 05/22/24 acetaminophen 650 mg 650 mg PO QID PRN fever or pain 05/22/24 05/22/24 tablet,extended release acetylcarnitine HCl 250 mg capsule 50 mg PO QDAY 05/22/24 05/22/24 carvedilol 3.125 mg tablet 3.125 mg PO BID 05/22/24 05/22/24 cholecalciferol (vitamin D3) 125 125 mcg PO QDAY 05/22/24 05/22/24 mcg (5,000 unit) capsule clobetasol 0.05 % shampoo topical 05/22/24 05/22/24 furosemide 40 mg tablet 40 mg PO BID 05/22/24 05/22/24 glucosamine-chondroitin 500 mg-400 1 cap PO BID 05/22/24 05/22/24 mg capsule ipratropium 0.5 mg-albuterol 3 mg 3 ml inhalation Q4H PRN 05/22/24 05/22/24 (2.5 mg base)/3 mL nebulization soln mecobalamin (vitamin B12) 1,000 1,000 mcg PO QDAY 05/22/24 05/22/24 mcg chewable tablet (B12 Active) methocarbamol 750 mg tablet 375 mg PO TID PRN Spasms 05/22/24 05/22/24 nystatin 100,000 unit/gram topical 1 applic topical BID PRN 05/22/24 05/22/24 cream ondansetron HCl 4 mg tablet 4 mg PO Q8H PRN 05/22/24 05/22/24 polyethylene glycol 3350 17 17 g PO BID PRN constipation 05/22/24 05/22/24 gram/dose oral powder (Miralax) semaglutide (weight loss) 0.25 0.25 mg subcut QWEEK 05/22/24 05/22/24 mg/0.5 mL subcutaneous pen injector (Wegovy) sennosides 8.6 mg capsule (senna) 8.6 mg PO BID 05/23/24 Allergies Allergies Allergy/AdvReac Type Severity Reaction Status Date / Time No Known Drug Allergies Allergy Verified 05/28/24 08:24 [facility] Medical History Medical History (Updated 05/28/24 @ 11:16 by Jessica Enriquez MD) Triple negative breast cancer Electrolyte abnormality Hypercarbia Anemia Acute on chronic heart failure Multiple transverse process fractures Respiratory failure Acute and chronic respiratory failure with hypoxia Obesity Elevated troponin CHF exacerbation Hyperchloremia Pancytopenia Pneumonia Hypocalcemia Hypercalcemia Oliguria Acute on chronic respiratory failure with hypoxia and hypercapnia Unspecified lump in the right breast, upper outer quadrant (04/14/23) Morbid obesity with BMI of 40.0-44.9, adult Acute respiratory failure with hypoxia and hypercarbia Metabolic encephalopathy Ingrown toenail Abnormal chest x-ray Increased ammonia level Elevated WBC count Hyperkalemia Catheter-associated urinary tract infection 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, estrogen recepto r positive (11/20/05) Pressure ulcer, buttock (07/06/20) Pneumonia (06/23/23) Hypotension (11/24/23) Hyponatremia (03/07/20) Hypercalcemia (12/26/16) Elevated troponin (05/10/19) Anemia (06/23/23) Vitamin B12 deficiency (10/20/19) Acute systolic heart failure (05/10/19) Pressure ulcer of sacral region, unspecified stage (01/21/23) Overactive bladder (04/04/10) Benign neoplasm of unspecified ovary (09/03/05) Lymphedema (11/25/18) Leg pain, right (04/25/22) Laceration without foreign body of other part of head, subsequent encounter (11/11/22) Hepatic cyst (08/11/18) Gastroenteritis (04/09/07) Diverticulosis of colon (05/20/06) Decubitus ulcer of elbow (06/05/21) Conjunctivitis (05/25/17) Closed fracture of lateral malleolus (04/04/10) Carpal tunnel syndrome (07/23/18) Carotidynia (03/30/19) Blurred vision (12/15/23) UTI (urinary tract infection), bacterial (09/28/23) Degenerative arthritis of right knee (10/14/19) Arthritis of ankle, right, degenerative (11/25/18) Surgical History Surgical History (Updated 05/22/24 @ 19:43 by Aleida Swain NP) History of mandibular surgery History of cataract extraction History of lumpectomy of right breast Hx of tonsillectomy History of appendectomy History of hysterectomy History of cholecystectomy Family History Family History (Updated 05/22/24 @ 17:08 by Aleida Swain NP) Mother Parkinson's disease Social History Social History Smoking Status: Unknown if ever smoked Do you dip or chew tobacco?: No Patient requests smoking cessation consult: No Initiate information on smoking cessation: No Living arrangement: At home Marital Status: Single Living Condition: Alone and With caregiver(s) Support Person: Yes Relationship: Level: Dependent Home Mobility Equipment: Wheelchair Do you feel safe in your home environment?: Yes Suffered physical, verbal, emotional, or financial abuse?: No History of Abuse: No Service: No POLST Patient has POLST: Yes POLST Status: DNR (Selective measures only; do not intubate) Exam Exam Const: chronically ill and dyspneic appearing; able to speak in moderate sentences Eyes: PERRLA, EOMI ENT: mucous membranes moist Neck: supple, non-tender Resp: poor aeration with faint expiratory wheezing bilaterally, with tachypnea to mid 20s Card: regular rate and rhythm, no murmurs Abd: non tender diffusely, no rigidity or rebound or guarding Back: no T or L spine tenderness, no CVA tenderness bilaterally Extrem: no deformities, no swelling bilateral lower extremities, 2+ distal pulses Neuro: ANOx2/4, 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 garage grossly intact, grossly intact sensation and strength all extremities Skin: no rash, warm and dry Results Vitals Vitals: Vital Signs - 24 hr 05/28/24 08:17 05/28/24 08:18 05/28/24 08:24 Temperature 37.4 C Temperature Source Oral Pulse Rate 60 59 L 57 L Respiratory Rate 21 21 22 Blood Pressure 82/36 L 82/36 L O2 Saturation 93 93 O2 Source Nasal cannula Nasal cannula If not protocol: Oxygen Flow, liters/minute 2 4 Fraction of Inspired Oxygen (FIO2) Pain Intensity 0 0 05/28/24 08:45 05/28/24 08:54 05/28/24 09:24 Temperature Temperature Source Pulse Rate 52 L 83 52 L Respiratory Rate 21 21 Blood Pressure 68/38 L 81/36 L O2 Saturation 93 96 O2 Source Nasal cannula BIPAP If not protocol: Oxygen Flow, liters/minute 4 Fraction of Inspired Oxygen (FIO2) 30 Pain Intensity 0 0 05/28/24 09:30 05/28/24 09:30 05/28/24 10:00 Temperature Temperature Source Pulse Rate 56 L 54 L Respiratory Rate 20 19 Blood Pressure 79/40 L 73/32 L O2 Saturation 96 94 O2 Source BIPAP BIPAP If not protocol: Oxygen Flow, liters/minute Fraction of Inspired Oxygen (FIO2) 25 Pain Intensity 0 0 05/28/24 10:30 05/28/24 11:00 05/28/24 11:30 Temperature 36.4 C L 36.8 C 37.2 C Temperature Source Axillary Core Core Pulse Rate 58 L 61 62 Respiratory Rate 17 22 20 Blood Pressure 89/42 L 117/47 L 115/50 L O2 Saturation 88 L 90 L 90 L O2 Source BIPAP BIPAP BIPAP If not protocol: Oxygen Flow, liters/minute Fraction of Inspired Oxygen (FIO2) Pain Intensity 0 0 0 Oxygen O2 Source [Without Activity] Nasal cannula O2 Source [With Activity] Nasal cannula O2 Source BIPAP Labs Labs: Laboratory Tests 05/28/24 05/28/24 05/28/24 08:38 08:39 08:40 WBC 5.4 RBC 3.46 L Hgb 10.2 L Hct 34.4 L MCV 99.4 H MCH 29.5 MCHC 29.7 L RDW 14.4 Plt Count 130 MPV 12.2 H Neut # (Auto) 4.5 Lymph # (Auto) 0.5 L [place] # (Auto) 0.3 Eos # (Auto) 0.1 Baso # (Auto) 0.0 Absolute Nucleated RBC 0.00 Nucleated RBC % 0.0 Bld Gas Analysis Time Sample Site ABG pH ABG pCO2 ABG pO2 ABG HCO3 ABG Total CO2 ABG O2 Saturation ABG Base Excess Lester Test VBG pH 7.231 L VBG pCO2 81.8 H VBG pO2 59.1 H VBG HCO3 33.6 H VBG Total CO2 36.1 H VBG O2 Saturation 89.5 H VBG Base Excess 4.0 H O2 Delivery Device FiO2 EPAP IPAP Sodium 136 Potassium 4.2 Chloride 95 L Carbon Dioxide 35 H Anion Gap 6.0 BUN 55 H Creatinine 1.9 H Estimated GFR (MDRD) 25 L Glucose 114 H Lactic Acid 0.3 L Calcium 8.4 L Total Bilirubin 0.3 AST 25 ALT 26 Alkaline Phosphatase 63 B-Natriuretic Peptide 160 H Total Protein 6.1 L Albumin 3.2 Globulin 2.9 Albumin/Globulin Ratio 1.1 TSH 1.54 Urine Color Urine Clarity Urine pH Ur Specific [place] Urine Protein Urine Glucose (UA) Urine Ketones Urine Occult Blood Urine Nitrite Urine Bilirubin Urine Urobilinogen Ur Leukocyte Esterase Urine RBC Urine WBC Ur Squamous Epith Cells Urine Bacteria Urine Culture Comments Nasal Influenza B PCR NOT DETECTED Nasal Influenza A PCR NOT DETECTED Nasal RSV (PCR) NOT DETECTED Nasal SARS-CoV-2 (PCR) NOT DETECTED 05/28/24 05/28/24 05/28/24 09:06 10:47 10:49 WBC RBC Hgb Hct MCV MCH MCHC RDW Plt Count MPV Neut # (Auto) Lymph # (Auto) [place] # (Auto) Eos # (Auto) Baso # (Auto) Absolute Nucleated RBC Nucleated RBC % Bld Gas Analysis Time 0918 Sample Site RIGHT RADIAL ABG pH 7.22 L ABG pCO2 84 H* ABG pO2 76 L ABG HCO3 33.4 H ABG Total CO2 35.9 H ABG O2 Saturation 94 ABG Base Excess 3.7 H Lester Test POSITIVE VBG pH 7.188 L* VBG pCO2 74.0 H VBG pO2 36.5 VBG HCO3 27.5 VBG Total CO2 29.8 H VBG O2 Saturation 69.6 VBG Base Excess -2.0 O2 Delivery Device BiPAP FiO2 30.00 EPAP 5 IPAP 16 Sodium Potassium Chloride Carbon Dioxide Anion Gap BUN Creatinine Estimated GFR (MDRD) Glucose Lactic Acid Calcium Total Bilirubin AST ALT Alkaline Phosphatase B-Natriuretic Peptide Total Protein Albumin Globulin Albumin/Globulin Ratio TSH Urine Color YELLOW Urine Clarity CLEAR Urine pH 5.5 Ur Specific [place] 1.020 Urine Protein NEGATIVE Urine Glucose (UA) NEGATIVE Urine Ketones NEGATIVE Urine Occult Blood NEGATIVE Urine Nitrite NEGATIVE Urine Bilirubin NEGATIVE Urine Urobilinogen 0.2 (NORMAL) Ur Leukocyte Esterase TRACE H Urine RBC 0-5 Urine WBC 6-10 H Ur Squamous Epith Cells FEW Squamous Urine Bacteria Moderate H Urine Culture Comments INDICATED Nasal Influenza B PCR Nasal Influenza A PCR Nasal RSV (PCR) Nasal SARS-CoV-2 (PCR) PD Medical Decision Making ED course ED course: This patient's presentation is most concerning for sepsis with shock, and I have immediately initiated aggressive and broad workup with septic workup, additional fluids, vancomycin and Zosyn. In addition, I am concerned for respiratory failure, with CO2 narcosis certainly possible, and I am requesting nebs, steroids and BiPAP with RT. I suspect lack of tachycardia may be secondary to carvedilol use. I am closely reassessing. Please note I am giving fluids but pending her response, may limit below 30cc/kg given CHF history and risk of causing respiratory failure. Cardiogenic shock also possible, along with other metabolic conditions, BRASH, hyperkalemia, SARIKA which could also cause bradycardia in setting of beta bro use. However, temperature with EMS suggestive of sepsis. Adding TSH, though this is less consistent with hy pothyroidism. EKG: NSR without acute ischemia or immediately concerning interval prolongation. BiPAP being adjusted by RT. Starting NE gtt once safe access established. We will need central line for this. I called family at to discuss; they are discussing and will call us back; they are aware this is emergent, but I am trying to allow goals of care conversation. I spoke with bryce Longoria, who is a physician, understands and agrees to plan, consents to central line procedure. Phone #: [phone]. Labs: VBG with respiratory acidosis. CBC shows slight worsening of anemia, no leukocytosis, no thrombocytopenia. CMP with probable prerenal SARIKA, no hyperkalemia, BNP mildly elevated though in setting of increased BMI. No LFT elevation. TSH within normal limits. Lactate not elevated. XR: I agree with rads read below on my review of imaging "FINDINGS: Surgical changes and devices: Right axillary clips are seen. Lungs and pleura: There is interstitial prominence can be seen. Blunting of the costophrenic angles can be seen, left worse than right. On this semiupright study, no large pneumothorax can be seen. Mediastinum: Mediastinal contours appear normal. Heart size is at least moderately enlarged. Bones and chest wall: No suspicious bony lesions. Bilateral degenerative Overlying soft tissues appear unremarkable. IMPRESSION: Cardiomegaly with interstitial prominence and likely small bilateral pleural effusions. CHF is suspected. Reviewed by: Pito Nazario MD on 05/28/2024 8:14 AM AKDT" - Giving glucagon 1mg given SARIKA and Carvedilol use. - PROCEDURE: central line placement with continuous US guidance Patient's family consented for procedure via PARQ. Timeout performed. Ultrasound used to identify appropriate site. Area prepped with chlorhexidine and draped. Using full sterile conditions, continuous US guidance, and Seldinger technique, line placed on first attempt. 5mL of 1% lidocaine with epinephrine used for loc al anesthesia prior to procedure. Line secured in place. Roughly 5mL blood loss. Post placement radiograph confirmed adequate placement. Patient tolerated procedure well. Post CXR: appropriate position without PTX - I spoke with hospitalist Dr. Enriquez, reviewing case. She kindly accepts admission, will place in ICU. Note on viewing post line XR and with pressures improving, I have requested to stop fluids given high risk of causing worsening pulmonary edema. Post line CXR rads read, which I agree with: "FINDINGS: Surgical changes and devices: A right-sided central line is seen, with the tip near the cavoatrial junction. Right axillary clips are seen. Lungs and pleura: There is interstitial prominence can be seen. There is blunting of the costophrenic angles. No pneumothorax can be seen on this semiupright study. Age-appropriate degenerative changes are seen. Mediastinum: Mediastinal contours appear normal. Heart size is moderately enlarged. Bones and chest wall: No suspicious bony lesions. Age-appropriate degenerative changes are seen. Overlying soft tissues appear unremarkable. IMPRESSION: The tip of the right-sided central line can be seen near the cavoatrial junction. Continued cardiomegaly with interstitial prominence and pleural effusions, which are consistent with CHF. Reviewed by: Pito Nazario MD on 05/28/2024 9:14 AM AKDT" Viral 4-plex negative. Excellent response to glucagon and pressors, with patient's BP 110/70s; I have discussed MAP goal of 65 with staff. We are ceasing aggressive fluids given high risk of CHF worsening and excellent response to pressors. No improvement in pH yet however CO2 appears to be improving. Pt on NE gtt of 10 currently, weaned down from 15, as of 1107. At this time, I suspect either septic shock or SARIKA on Carvedilol drove this presentation. Patient improving and being admitted to ICU. I called and updated her NICHELLE Longoria again; no questions. CRITICAL CARE TIME: outside of procedures, I spent 95 minutes assessing, reassessing, resuscitating this patient, speaking with family and consultants, and interpreting studies and documentation, in the setting of shock requiring pressors, NIPPV as above. Discharge Plan Discharge Patient Disposition: 67 [facility] DC/Xfer Condition: Serious Interventions: ED Admission Assessment Last Done: 05/28/24 12:17
[2024-05-28] MEDS ORDERED: ALBUTEROL NEB 2.5 MG/3 ML INH STA (08:22)
[2024-05-28] MEDS ORDERED: IPRATROPIUM/ALBUTEROL 3 ML NEB INH STA (08:22)
[2024-05-28 08:48] LABS: BASOPHILS % (AUTO) 0.4 %; EOSINOPHILS # (AUTO) 0.1 10^3/uL (0.0-0.7); EOSINOPHILS % (AUTO) 1.7 %; HCT - HEMATOCRIT 34.4 % (37.0-47.0); HGB - HEMOGLOBIN 10.2 g/dL (12.0-16.0); LYMPHOCYTES # (AUTO) 0.5 10^3/uL (1.5-3.5); LYMPHOCYTES % (AUTO) 8.3 %; MEAN CORPUSCULAR HEMOGLOBIN 29.5 pg (27.0-31.0); MEAN CORPUSCULAR HGB CONC 29.7 g/dL (32.0-36.0); MEAN CORPUSCULAR VOLUME 99.4 fL (81.0-99.0); MEAN PLATELET VOLUME 12.2 fL (7.9-10.8); MONOCYTES # (AUTO) 0.3 10^3/uL (0.0-1.0); NEUTROPHILS # (AUTO) 4.5 10^3/uL (1.5-6.6); NEUTROPHILS % (AUTO) 83.7 %; PLT - PLATELET COUNT 130 10^3/uL (130-450); RED BLOOD COUNT 3.46 10^6/uL (4.20-5.40); RED CELL DISTRIBUTION WIDTH 14.4 % (12.0-15.0); WHITE BLOOD COUNT 5.4 x10^3/uL (4.8-10.8)
[2024-05-28 08:50] LABS: VBG PH 7.231 (7.31-7.41)
[2024-05-28] MEDS: methylPREDNISolone SUCCINATE 125 MG/2 ML VIAL IVP STA (08:50)
[2024-05-28 08:51] LABS: VBG HCO3 33.6 mmol/L (23-28); VBG OXYGEN SATURATION 89.5 % (60-80); VBG PCO2 81.8 mmHg (41-51); VBG PO2 59.1 mmHg (25-47); VBG TOTAL CO2 36.1 mmol/L (24-29)
[2024-05-28] MEDS: SODIUM CHLORIDE 0.9% 1,000 ML IV STA (08:51)
[2024-05-28] MEDS ORDERED: NOREPINEPHRINE/D5W 8 MG/250 ML BAG IV SCH (09:00)
[2024-05-28 09:03] LABS: ALBUMIN 3.2 g/dL (3.2-5.5); ALBUMIN/GLOBULIN RATIO 1.1 (1.0-2.2); BILIRUBIN,TOTAL 0.3 mg/dL (0.2-1.0); CALCIUM 8.4 mg/dL (8.5-10.3); CREATININE 1.9 mg/dL (0.6-1.3); POTASSIUM 4.2 mmol/L (3.5-4.5); TOTAL PROTEIN 6.1 g/dL (6.4-8.9)
--- NOTE | 2024-05-28 09:15 | XRAY Report ---
PROCEDURE: XR Chest 1V INDICATIONS: sepsis TECHNIQUE: One view of the chest was acquired. COMPARISON: 01/05/2024, 01/04/2024 FINDINGS: Surgical changes and devices: Right axillary clips are seen. Lungs and pleura: There is interstitial prominence can be seen. Blunting of the costophrenic angles can be seen, left worse than right. On this semiupright study, no large pneumothorax can be seen. Mediastinum: Mediastinal contours appear normal. Heart size is at least moderately enlarged. Bones and chest wall: No suspicious bony lesions. Bilateral degenerative Overlying soft tissues casandra ear unremarkable. IMPRESSION: Cardiomegaly with interstitial prominence and likely small bilateral pleural effusions. CHF is suspec reza. Reviewed by: Pito Nazario MD on 05/28/2024 8:14 AM K[facility]LIN Approved by: Pito Nazario MD on 05/28/2024 8:14 AM KAYLIN Station ID: [id number]
[2024-05-28 09:22] LABS: ABG BASE EXCESS 3.7 mmol/L (-2.0-3.0); ABG HCO3 33.4 mmol/L (22.0-26.0); ABG OXYGEN SATURATION 94 % (94-98); ABG PH 7.22 (7.35-7.45); ABG PO2 76 mmHg (80-100); ABG TCO2 35.9 MMOL/L (21.0-29.0); ALLEN TEST POSITIVE
[2024-05-28 09:26] LABS: ABG PCO2 84 mmHg (34-45)
[2024-05-28] MEDS: PIPERACILLIN/TAZOBACTAM 4.5 GM in SODIUM CHLORIDE 0.9% MINIBAG 100 ML IV STA (09:27)
[2024-05-28 09:32] LABS: THYROID STIMULATING HORMONE 1.54 uIU/mL (0.34-5.60)
[2024-05-28] MEDS: ALBUTEROL NEB 2.5 MG/3 ML INH STA (09:43)
[2024-05-28] MEDS: IPRATROPIUM/ALBUTEROL 3 ML NEB INH STA (09:43)
[2024-05-28] MEDS: GLUCAGON 1 MG in DEXTROSE 5% 45 ML IV STA (10:07)
--- NOTE | 2024-05-28 10:15 | XRAY Report ---
PROCEDURE: XR Chest for Line Placement INDICATIONS: check for central line placement TECHNIQUE: One view of the chest was acquired. COMPARISON: Earlier in the day on 05/28/2024. FINDINGS: Surgical changes and devices: A right-sided central line is seen, with the tip near the cavoatrial j unction. Right axillary clips are seen. Lungs and pleura: There is interstitial prominence can be seen. There is blunting of the costophreni c angles. No pneumothorax can be seen on this semiupright study. Age-appropriate degenerative changes are seen. Mediastinum: Mediastinal contours appear normal. Heart size is moderately enlarged. Bones and chest wall: No suspicious bony lesions. Age-appropriate degenerative changes are seen. Overlying soft tissues appear unremarkable. IMPRESSION: The tip of the right-sided central line can be seen near the cavoatrial junction. Continued cardiomegaly with interstitial prominence and pleural effusions, which are consistent with CHF. Reviewed by: Pito Nazario MD on 05/28/2024 9:14 AM KAYLIN Approved by: Pito Nazario MD on 05/28/2024 9:14 AM KAYLIN Station ID: [id number]
[2024-05-28] MEDS: VANCOMYCIN INJ 2 GM in SODIUM CHLORIDE 0.9% 500 ML IV STA (10:18)
[2024-05-28] MEDS: NOREPINEPHRINE/0.9 % NS 8 MG/250 ML BAG IV STA (10:25)
[2024-05-28 10:45] LABS: INFLUENZA A- RESP PCR PANEL NOT DETECTED; INFLUENZA B - RESP PCR PANEL NOT DETECTED; RSV- RESP PCR PANEL NOT DETECTED; SARS-CoV-2 -RESP PCR PANEL NOT DETECTED
[2024-05-28 10:56] LABS: VBG PO2 36.5 mmHg (25-47)
[2024-05-28 10:57] LABS: VBG HCO3 27.5 mmol/L (23-28); VBG OXYGEN SATURATION 69.6 % (60-80); VBG TOTAL CO2 29.8 mmol/L (24-29)
--- NOTE | 2024-05-28 10:57 | HISTORY & PHYSICAL EXAMINATION ---
Chief Complaint Chief Complaint Chief Complaint: Altered mentation History of Present Illness History of Present Illness HPI Comment/Other: Patient is a 83-year-old female with a history of triple negative right breast cancer currently on letrozole, heart failure with mildly reduced ejection fraction of 40 to 45% and diastolic impairment, obesity hypoventilation syndrome who presented after caregiver found her to be generally weak, as well as lethargic this morning. Her caregiver was not present at bedside, so further details cannot be elicited. Per documentation, she is essentially bedbound at baseline. She has had multiple admissions for lethargy, as well as altered mentation like this one. In the emergency room, she was found to be hypotensive with blood pressure in the 80s over 40s range, heart rate in the low 50s. Per EMS documentation, she did have a fever of 100.4 en route. Lab work showed no leukocytosis, hemoglobin of 10.2, around her baseline. An ABG was done which showed a pH of 7.22, as well as a CO2 of 84. She was placed on BiPAP at this time. Her lactic acid was within normal limits of 0.3. She had a mild SARIKA of 1.9, with baseline creatinine of 0.9. Her glucose was within normal limits. Her BNP was 160. Her UA was negative, and a rapid. Viral panel including COVID-19 was negative as well. Imaging was reviewedchest x-ray does show continued cardiomegaly with interstitial infiltrates, as well as some mild pleural effusions. She was started on Levophed for hypotension. She was given glucagon for possible beta- bro overdose in setting of Coreg use at home and ongoing bradycardia. She was started on broad-spectrum antibiotics for possible septic shock with Zosyn and vancomycin. Discussed with emergency room physician, plan is to transfer her to the ICU for further management. Meds/Allgy Home Medications Ambulatory Orders Medication Instructions Recorded Confirmed omeprazole 20 mg capsule,delayed 20 mg PO BID 04/27/14 05/28/24 release atorvastatin 20 mg tablet 20 mg PO QPM 04/03/22 05/28/24 apixaban 5 mg tablet (Eliquis) 5 mg PO BID 06/19/23 05/28/24 letrozole 2.5 mg tablet 2.5 mg PO DAILY 08/25/23 05/28/24 sennosides 8.6 mg tablet (Senna 8.6 - 25.8 mg PO DAILY PRN 11/03/23 05/22/24 Lax) Constipation losartan 25 mg tablet 25 mg PO DAILY 01/05/24 05/22/24 trazodone 50 mg tablet 100 mg PO QPM 01/06/24 05/28/24 gezojtdhlvqm-igwzhcan-flbc 1 tab PO DAILYWM #100 tabs 01/08/24 05/28/24 fumarate 19 mg-folic acid 400 mcg tablet (Therapeutic-M) potassium chloride 10 mEq 20 meq (2 x 10 mEq) PO QDAY #180 05/13/24 05/28/24 capsule,extended release caps pregabalin 75 mg capsule 75 mg PO TID 05/13/24 05/28/24 acetaminophen 650 mg 650 mg PO QID PRN fever or pain 05/22/24 05/28/24 tablet,extended release acetylcarnitine HCl 250 mg capsule 50 mg PO QDAY 05/22/24 05/28/24 carvedilol 3.125 mg tablet 3.125 mg PO BID 05/22/24 05/22/24 cholecalciferol (vitamin D3) 125 125 mcg PO QDAY 05/22/24 05/28/24 mcg (5,000 unit) capsule clobetasol 0.05 % shampoo topical 05/22/24 05/22/24 furosemide 40 mg tablet 40 mg PO BID 05/22/24 05/28/24 glucosamine-chondroitin 500 mg-400 1 cap PO BID 05/22/24 05/22/24 mg capsule ipratropium 0.5 mg-albuterol 3 mg 3 ml inhalation Q4H PRN 05/22/24 05/22/24 (2.5 mg base)/3 mL nebulization soln mecobalamin (vitamin B12) 1,000 1,000 mcg PO QDAY 05/22/24 05/28/24 mcg chewable tablet (B12 Active) methocarbamol 750 mg tablet 375 mg PO TID PRN Spasms 05/22/24 05/28/24 nystatin 100,000 unit/gram topical 1 applic topical BID PRN 05/22/24 05/22/24 cream ondansetron HCl 4 mg tablet 4 mg PO Q8H PRN 05/22/24 05/22/24 polyethylene glycol 3350 17 17 g PO BID PRN constipation 05/22/24 05/22/24 gram/dose oral powder (Miralax) semaglutide (weight loss) 0.25 0.25 mg subcut QWEEK 05/22/24 05/22/24 mg/0.5 mL subcutaneous pen injector (Wegovy) sennosides 8.6 mg capsule (senna) 8.6 mg PO BID 05/23/24 Allergies Allergies Allergy/AdvReac Type Severity Reaction Status Date / Time No Known Drug Allergies Allergy Verified 05/28/24 08:24 [facility] Medical History Medical History (Updated 05/28/24 @ 11:16 by Jessica Enriquez MD) Triple negative breast cancer Electrolyte abnormality Hypercarbia Anemia Acute on chronic heart failure Multiple transverse process fractures Respiratory failure Acute and chronic respiratory failure with hypoxia Obesity Elevated troponin CHF exacerbation Hyperchloremia Pancytopenia Pneumonia Hypocalcemia Hypercalcemia Oliguria Acute on chronic respiratory failure with hypoxia and hypercapnia Unspecified lump in the right breast, upper outer quadrant (04/14/23) Morbid obesity with BMI of 40.0-44.9, adult Acute respiratory failure with hypoxia and hypercarbia Metabolic encephalopathy Ingrown toenail Abnormal chest x-ray Increased ammonia level Elevated WBC count Hyperkalemia Catheter-associated urinary tract infection 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, estrogen receptor positive (11/20/05) Pressure ulcer, buttock (07/06/20) Pneumonia (06/23/23) Hypotension (11/24/23) Hyponatremia (03/07/20) Hypercalcemia (12/26/16) Elevated troponin (05/10/19) Anemia (06/23/23) Vitamin B12 deficiency (10/20/19) Acute systolic heart failure (05/10/19) Pressure ulcer of sacral region, unspecified stage (01/21/23) Overactive bladder (04/04/10) Benign neoplasm of unspecified ovary (09/03/05) Lymphedema (11/25/18) Leg pain, right (04/25/22) Laceration without foreign body of other part of head, subsequent encounter (11/11/22) Hepatic cyst (08/11/18) Gastroenteritis (04/09/07) Diverticulosis of colon (05/20/06) Decubitus ulcer of elbow (06/05/21) Conjunctivitis (05/25/17) Closed fracture of lateral malleolus (04/04/10) Carpal tunnel syndrome (07/23/18) Carotidynia (03/30/19) Blurred vision (12/15/23) UTI (urinary tract infection), bacterial (09/28/23) Degenerative arthritis of right knee (10/14/19) Arthritis of ankle, right, degenerative (11/25/18) Surgical History Surgical History (Updated 05/22/24 @ 19:43 by Aleida Swain NP) History of mandibular surgery History of cataract extraction History of lumpectomy of right breast Hx of tonsillectomy History of appendectomy History of hysterectomy History of cholecystectomy Family History Family History (Updated 05/22/24 @ 17:08 by Aleida Swain NP) Mother Parkinson's disease Social History Social History Smoking Status: Unknown if ever smoked Do you dip or chew tobacco?: No Patient requests smoking cessation consult: No Initiate information on smoking cessation: No Living arrangement: At home Marital Status: Single Living Condition: Alone and With caregiver(s) Support Person: Yes Relationship: Level: Dependent Home Mobility Equipment: Wheelchair Do you feel safe in your home environment?: Yes Suffered physical, verbal, emotional, or financial abuse?: No History of Abuse: No Service: No POLST Patient has POLST: Yes POLST Status: DNR (Selective measures only; do not intubate) Exam Constitutional no apparent distress, abnormal body habitus (obese) (morbidly obese) and level of alertness abnormal (lethargic) (awakening to sternal rub, answering some yes/no question) HENMT normocephalic, nasal mucous membranes normal and oropharynx normal Eyes PERRL, EOMs intact bilaterally and no nystagmus Neck/C-Spine visual inspection normal and trachea midline Chest inspection of chest normal Respiratory breath sounds equal bilaterally, normal respiratory effort, rales noted (crackles in bases of lungs ) and no use of accessory muscles On BIPAP when seen, pulling great tidal volumes in the 800-1000cc range Cardiovascular heart rate abnormal (bradycardic), rhythm abnormal (irregular) and edema noted (mild non-pitting edema in bilateral lower extremities ) Gastrointestinal abdomen normal to inspection, abdomen firm to palpation, hepatosplenomegaly noted, mass noted, pulsatile mass noted and ascites noted Genitourinary no CVA tenderness and bladder normal to palpation Back/Pelvis spine normal to inspection, no thoracic spine tenderness, no lumbar spine tenderness and thoracic spine ROM abnormal Extremities normal to inspection, no tenderness and full ROM Neurology no focal motor deficit noted, no sensory deficits noted and speech normal Psychiatry orientation abnormal (disoriented to place) and (disoriented to time) Skin skin color normal and no rash Conclusion/Plan Problem List (1) Acute metabolic encephalopathy: Plan: Likely multifactorial due to CO2 retention as well as possible septic shock. For CO2 retention in setting of obesity hypoventilation syndrome - continue BiPAP. Will recheck VBG after a few hours of BiPAP use. Patient is a DNI. May also have a component of septic shock with hypotension, bradycardia, fever and AMS. Continue Zosyn and vancomycin at this time. Discussed with ED physician - will require closer monitoring in the ICU for BIPAP use and for Levophed use. (2) Septic shock: Plan: Patient with hypotension currently requiring Levophed, as well as one-time fever en route. MRSA swab ordered, pending. Blood cultures ordered x 2. Continue vancomycin and Zosyn at this time. Will give gentle IV fluid rehydration as well; patient does have history of heart failure and mild pleural effusions at this time. (3) Macrocytic anemia: Plan: Likely due to former history of chronic alcohol use. Vitamin B12 ordered, pending. (4) Respiratory acidosis: Plan: Due to CO2 retention in the setting of obesity hypoventilation syndrome. Continue BiPAP use at this time. Will recheck VBG in a few hours. Encouraged BiPAP use at home during any sleeping hours including naps. (5) Chronic respiratory failure requiring use of nocturnal bilevel positive airway pressure (BPAP) by mask: Plan: See above. (6) Bradycardia: Plan: Bradycardia of 47 on admission. Patient on Coreg at home. Given 1 dose of glucagon in the emergency room. Continue to monitor. (7) Paroxysmal atrial fibrillation: Plan: Continue Eliquis at this time. Coreg held, patient was bradycardic on admission. (8) Morbid obesity: Plan: Patient on Ozempic as an outpatient. Per palliative care notes, is motivated to do lifestyle changes for weight loss. (9) 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: Plan: Echocardiogram from 01/06/2023 reviewedpatient has left ventricular systolic function at the lower limits of normal with EF of 50 to 55%., Difficult to assess diastolic impairment due to presence of arrhythmia at the time, atrial fibrillation. (10) Breast cancer: Plan: Follows up regularly with Dr. Boyd. Last appointment was 03/08/2024, and sees them every 3 months. Has right breast cancer, triple negative. Treated with lumpectomy/radiation followed by adjuvant AC/T in 2005. Currently not a surgical candidate due to multiple comorbidities. Started letrozole in 06/2023 with complete chemical response. Qualifiers: Breast location: unspecified site of breast Estrogen receptor status: n egative Laterality: right Patient sex: female Qualified Code(s): C50.911 - Malignant neoplasm of unspecified site of right female breast; Z17.1 - Estrogen receptor negative status [ER-] (11) Morbid obesity with BMI of 45.0-49.9, adult: Plan: Currently on Ozempic as an outpatient for weight loss. Continue to encourage lifestyle modifications. (12) Obesity hypoventilation syndrome: Plan: Management as above. Lab Results Lab results reviewed: Yes 05/28/24 08:39 05/28/24 08:39 Diagnostic Imaging Results Diagnostic Imaging Results: positive Final report reviewed Core Measures Anticipated LOS I expect patient to be DC'd or transferred within 96 hours.: No DVT/VTE - Prophylaxis VTE/DVT Device ordered at admit?: Yes VTE/DVT Prophylaxis med ordered at admit?: Yes Stroke - Rehab Assessment Rehab services assessment to be ordered?: Yes AMI - Statin at Admit Aspirin Prescribed on Admit: No
[2024-05-28 10:59] LABS: VBG PH 7.188 (7.31-7.41)
[2024-05-28 11:01] LABS: BILIRUBIN,URINE NEGATIVE (NEGATIVE); GLUCOSE, URINE (UA) NEGATIVE (NEGATIVE); KETONES,URINE (UA) NEGATIVE (NEGATIVE); LEUKOCYTE ESTERASE, URINE TRACE (NEGATIVE); NITRITE,URINE NEGATIVE (NEGATIVE); OCCULT BLOOD,URINE NEGATIVE (NEGATIVE); PH,URINE 5.5 PH (5.0-7.5); PROTEIN,URINE NEGATIVE (NEGATIVE); UROBILINOGEN,URINE 0.2 (NORMAL) E.U./dL (NORMAL)
[2024-05-28 11:05] LABS: CLARITY,URINE CLEAR (CLEAR)
[2024-05-28 11:16] LABS: RBC,URINE 0-5 /HPF (0-5)
[2024-05-28 11:17] LABS: BACTERIA,URINE Moderate /HPF (None Seen); SQUAMOUS EPITHELIAL CELL,UR FEW Squamous (<= Few)
[2024-05-28] MEDS ORDERED: IPRATROPIUM/ALBUTEROL 3 ML NEB INH PRN ×2 (12:21→15:02)
[2024-05-28] MEDS ORDERED: ONDANSETRON ODT 4 MG TABLET PO PRN (12:21)
[2024-05-28 12:42] LABS: ABG BASE EXCESS -1.4 mmol/L (-2.0-3.0); ABG HCO3 28.6 mmol/L (22.0-26.0); ABG PO2 55 mmHg (80-100); ALLEN TEST POSITIVE
[2024-05-28 12:46] LABS: ABG OXYGEN SATURATION 87 % (94-98); ABG PCO2 78 mmHg (34-45); ABG PH 7.18 (7.35-7.45)
[2024-05-28] MEDS: CHOLECALCIFEROL 5,000 UNIT CAPSULE PO SCH (13:47)
[2024-05-28] MEDS: PREGABALIN 25 MG CAPSULE PO SCH (13:47)
[2024-05-28 14:48] LABS: ABG BASE EXCESS -1.2 mmol/L (-2.0-3.0); ABG HCO3 28.4 mmol/L (22.0-26.0); ABG OXYGEN SATURATION 91 % (94-98); ABG PO2 65 mmHg (80-100); ABG TCO2 30.7 MMOL/L (21.0-29.0)
[2024-05-28 14:49] LABS: ALLEN TEST POSITIVE
[2024-05-28 14:51] LABS: ABG PCO2 74 mmHg (34-45)
[2024-05-28 14:55] LABS: VBG BASE EXCESS -1.5 mmol/L (-2 - +2); VBG HCO3 28.4 mmol/L (23-28); VBG OXYGEN SATURATION 89.9 % (60-80); VBG PCO2 76.5 mmHg (41-51); VBG PO2 59.4 mmHg (25-47); VBG TOTAL CO2 30.8 mmol/L (24-29)
[2024-05-28 14:58] LABS: VBG PH 7.188 (7.31-7.41)
[2024-05-28] MEDS ORDERED: PIPERACILLIN/TAZOBACTAM 4.5 GM in SODIUM CHLORIDE 0.9% MINIBAG 100 ML IV SCH (15:00)
[2024-05-28] MEDS: CEFEPIME 2 GM in SODIUM CHLORIDE 0.9% MINIBAG 100 ML IV SCH (15:51)
[2024-05-28 17:29] LABS: VBG PH 7.229 (7.31-7.41)
[2024-05-28 17:30] LABS: VBG BASE EXCESS -2.2 mmol/L (-2 - +2); VBG HCO3 26.5 mmol/L (23-28); VBG OXYGEN SATURATION 84.5 % (60-80); VBG PCO2 64.8 mmHg (41-51); VBG PO2 48.7 mmHg (25-47); VBG TOTAL CO2 28.5 mmol/L (24-29)
[2024-05-28] MEDS: PANTOPRAZOLE 40 MG TABLET PO SCH (20:30)
[2024-05-28] MEDS: APIXABAN 5 MG TABLET PO SCH (20:30)
[2024-05-28] MEDS: ATORVASTATIN 10 MG TABLET PO SCH (20:30)
[2024-05-28] MEDS: traZODone 50 MG TABLET PO SCH (20:31)
[2024-05-28] MEDS: ACETAMINOPHEN 325 MG TABLET PO PRN (20:31)
[2024-05-29] MEDS ORDERED: NOREPINEPHRINE/0.9 % NS 8 MG/250 ML BAG IV ONE (05:24)
[2024-05-29] MEDS ORDERED: NOREPINEPHRINE/D5W 8 MG/250 ML BAG IV SCH (06:00)
[2024-05-29] MEDS: NOREPINEPHRINE/0.9 % NS 8 MG/250 ML BAG IV SCH (06:11)
[2024-05-29 06:16] LABS: HCT - HEMATOCRIT 34.7 % (37.0-47.0); HGB - HEMOGLOBIN 10.9 g/dL (12.0-16.0); MEAN CORPUSCULAR HEMOGLOBIN 29.6 pg (27.0-31.0); MEAN CORPUSCULAR HGB CONC 31.4 g/dL (32.0-36.0); MEAN CORPUSCULAR VOLUME 94.3 fL (81.0-99.0); MEAN PLATELET VOLUME 11.8 fL (7.9-10.8); RED BLOOD COUNT 3.68 10^6/uL (4.20-5.40); RED CELL DISTRIBUTION WIDTH 13.3 % (12.0-15.0); WHITE BLOOD COUNT 3.7 x10^3/uL (4.8-10.8)
[2024-05-29 06:18] LABS: VBG PH 7.286 (7.31-7.41)
[2024-05-29 06:19] LABS: VBG BASE EXCESS -0.5 mmol/L (-2 - +2); VBG OXYGEN SATURATION 94.1 % (60-80); VBG PO2 72.2 mmHg (25-47); VBG TOTAL CO2 28.8 mmol/L (24-29)
[2024-05-29 06:25] LABS: MAGNESIUM 1.8 mg/dL (1.7-2.3)
[2024-05-29 06:31] LABS: CALCIUM 7.8 mg/dL (8.5-10.3); CREATININE 1.9 mg/dL (0.6-1.3); PHOSPHORUS 3.8 mg/dL (2.5-5.0)
[2024-05-29] MEDS: CALCIUM CARBONATE CHEW 500 MG TABLET PO SCH (08:36)
[2024-05-29] MEDS: CYANOCOBALAMIN 500 MCG TABLET PO SCH (08:40)
[2024-05-29] MEDS: MULTIVITAMIN W/MINERALS TABLET PO SCH (08:40)
--- NOTE | 2024-05-29 11:20 | PROVIDER PROGRESS NOTE ---
Subjective Subjective Subjective: Patient is doing much better this morning. She is alert and oriented, off the BiPAP. She is conversive and is able to hold a conversation. She denies any shortness of breath, fevers, chills. She does not recall quite what happened. She says that she does nap during the day, but does not use her BiPAP. She does have 4 caregivers that assist her with her activities of daily living. Current Medications Current Medications Current Medications: Current Medications Generic Name Dose Route Start Last Admin Trade Name Freq PRN Reason Stop Dose Admin Acetaminophen 650 mg 05/28/24 12:49 05/28/24 20:31 Acetaminophen 325 Mg Tablet PO 650 mg QID PRN Administration Pain or Fever > 38C (100.4F) Albuterol/Ipratropium 3 ml 05/28/24 15:02 Ipratropium/Albuterol 3 Ml Neb INH RTQID PRN Shortness of Air/Wheezing Apixaban 5 mg 05/28/24 21:00 05/29/24 08:40 Apixaban 5 Mg Tablet PO 5 mg BID TAI Administration Atorvastatin Calcium 20 mg 05/28/24 21:00 05/28/24 20:30 Atorvastatin 10 Mg Tablet PO 20 mg QPM TAI Administration Calcium Carbonate/Glycine 1,250 mg 05/29/24 08:00 05/29/24 08:36 Calcium Carbonate Chew 500 Mg Tablet PO 05/29/24 12:01 1,250 mg Q4H TAI Administration Protocol Cholecalciferol 5,000 unit 05/28/24 12:21 05/29/24 08:40 Cholecalciferol 5,000 Unit Capsule PO 5,000 unit DAILY TAI Administration Cyanocobalamin 1,000 mcg 05/29/24 09:00 05/29/24 08:40 Cyanocobalamin 500 Mcg Tablet PO 1,000 mcg DAILY TAI Administration Cefepime HCl 2 gm/ Sodium 100 mls @ 200 mls/hr 05/28/24 15:00 05/29/24 08:41 Chloride IV 200 mls/hr BID TAI Administration Norepinephrine/Sodium Chloride 8 mg in 250 mls @ 15 mls/hr 05/29/24 06:00 05/29/24 08:17 Levophed 8 Mg/250-0.9% Nacl IV 3 mcg/min .[id number] TAI 5.63 mls/hr Titration Protocol 8 MCG/MIN Insulin Human Lispro 1 - 5 unit 05/29/24 12:00 Insulin Lispro 300 Unit/3 Ml Pen SUBQ 0800,1200,1700,2100 [facility] Protocol Methocarbamol 375 mg 05/28/24 12:21 Methocarbamol 500 Mg Tablet PO TID PRN Spasms Multivitamins/Minerals 1 tab 05/29/24 08:00 05/29/24 08:40 Multivitamin W/Minerals Tablet PO 1 tab DAILYWM TAI Administration Ondansetron HCl 4 mg 05/28/24 12:21 Ondansetron Odt 4 Mg Tablet PO Q8H PRN Nausea / Vomiting Pantoprazole Sodium 40 mg 05/28/24 21:00 05/29/24 08:40 Pantoprazole 40 Mg Tablet PO 40 mg BID TAI Administration Letrozole 2.5 Mg 1 each 05/29/24 09:00 05/29/24 08:49 Tablet PO Not Given DAILY TAI Pregabalin 75 mg 05/28/24 14:00 05/29/24 05:30 Pregabalin 25 Mg Capsule PO 75 mg TID TAI Administration Trazodone HCl 100 mg 05/28/24 21:00 05/28/24 20:31 Trazodone 50 Mg Tablet PO 100 mg QPM TAI Administration Objective Vital Signs/Intake & Output Reviewed Vital Signs: Yes Vital Signs: Vital Signs x48h Temp Pulse Pulse Resp BP Pulse Ox O2 Flow Rate 05/29/24 11:00 98.2 F 56 L 17 108/40 L 97 2 05/29/24 10:30 110/43 L 05/29/24 10:00 97.9 F 67 22 139/85 H 95 2 05/29/24 09:00 97.7 F 67 19 139/85 H 98 2 05/29/24 08:00 2 05/29/24 08:00 97.7 F 55 L 17 139/85 H 97 05/29/24 07:56 2 05/29/24 07:00 97.3 F L 48 L 16 148/46 H 98 05/29/24 06:03 63 2 05/29/24 06:00 49 L 14 123/43 L 97 05/29/24 05:00 97.2 F L 54 L 21 96/30 L 97 05/29/24 04:00 97.2 F L 56 L 25 H 135/41 H 97 Intake & Output: Intake & Output 05/27/24 05/28/24 05/29/24 05/30/24 05:59 05:59 05:59 05:59 Intake Total 2003 108 / 108 Output Total 1280 / 1280 375 / 375 Balance 724 / 724 -267 / -267 Weight (kg) 124.5 kg Objective General Appearance: positive No acute distress; negative Anxious or Lethargic Eyes Bilateral: positive Normal inspection, PERRL and EOMI ENT: positive ENT inspection nml, Pharynx nml and No signs of dehydration Neck: positive Thyroid nml, No JVD and Trachea midline Respiratory: positive Chest non-tender, No respiratory distress and Breath sounds nml; negative Wheezes, Rales or Rhonchi Cardiovascular: positive Regular rate & rhythm, No murmur, No gallop and Bradycardia Abdomen: positive Non-tender and No distention; negative Guarding, Rebound, Splenomegaly or Mass Back: positive Nml inspection; negative CVA tenderness (R) or CVA tenderness (L) Skin: positive Color nml, No rash and Dry; negative Warm Extremities: positive Non-tender, Full ROM and No pedal edema Neurologic/Psychiatric: positive Oriented x3 and Weakness (bedbound at baseline) Lab Results 05/29/24 05:58 05/29/24 05:58 Other Labs: Lab Results x24hrs 05/29/24 05/29/24 05/28/24 Range/Units 05:58 05:58 17:21 WBC 3.7 L (4.8-10.8) x10^3/uL RBC 3.68 L (4.20-5.40) 10^6/uL Hgb 10.9 L (12.0-16.0) g/dL Hct 34.7 L (37.0-47.0) % MCV 94.3 (81.0-99.0) fL MCH 29.6 (27.0-31.0) pg MCHC 31.4 L (32.0-36.0) g/dL RDW 13.3 (12.0-15.0) % Plt Count 132 (130-450) 10^3/uL MPV 11.8 H (7.9-10.8) fL Bld Gas Analysis Time Sample Site ABG pH (7.35-7.45) ABG pCO2 (34-45) mmHg ABG pO2 (80-100) mmHg ABG HCO3 (22.0-26.0) mmol/L ABG Total CO2 (21.0-29.0) MMOL/L ABG O2 Saturation (94-98) % ABG Base Excess (-2.0-3.0) mmol/L Lester Test VBG pH 7.286 L 7.286 L 7.229 L (7.31-7.41) VBG pCO2 58.0 H 64.8 H (41-51) mmHg VBG pO2 72.2 H 48.7 H (25-47) mmHg VBG HCO3 27.0 26.5 (23-28) mmol/L VBG Total CO2 28.8 28.5 (24-29) mmol/L VBG O2 Saturation 94.1 H 84.5 H (60-80) % VBG Base Excess -0.5 -2.2 L (-2 - +2) mmol/L Ionized Calcium 1.00 L (1.15-1.33) mmol/L O2 Delivery Device FiO2 EPAP cmH2O IPAP cmH2O Sodium 140 (135-145) mmol/L Potassium 4.0 (3.5-4.5) mmol/L Chloride 100 L (101-111) mmol/L Carbon Dioxide 29 (21-32) mmol/L Anion Gap 11.0 (6-13) BUN 58 H (6-20) mg/dL Creatinine 1.9 H (0.6-1.3) mg/dL Estimated GFR (MDRD) 25 L (>89) Glucose 129 H (74-104) mg/dL Lactic Acid (0.5-2.2) mmol/L Calcium 7.8 L (8.5-10.3) mg/dL Phosphorus 3.8 (2.5-5.0) mg/dL Magnesium 1.8 (1.7-2.3) mg/dL Vitamin B12 (180-914) pg/mL Urine RBC (0-5) /HPF Urine WBC (0-5) /HPF Ur Squamous Epith Cells (<= Few) Urine Bacteria (None Seen) /HPF Urine Culture Comments Nasal Screen MRSA (PCR) (NEGATIVE) 05/28/24 05/28/24 05/28/24 Range/Units 14:59 14:36 12:31 WBC (4.8-10.8) x10^3/uL RBC (4.20-5.40) 10^6/uL Hgb (12.0-16.0) g/dL Hct (37.0-47.0) % MCV (81.0-99.0) fL MCH (27.0-31.0) pg MCHC (32.0-36.0) g/dL RDW (12.0-15.0) % Plt Count (130-450) 10^3/uL MPV (7.9-10.8) fL Bld Gas Analysis Time 1442 Sample Site RIGHT RADIAL ABG pH 7.20 L* (7.35-7.45) ABG pCO2 74 H* (34-45) mmHg ABG pO2 65 L (80-100) mmHg ABG HCO3 28.4 H (22.0-26.0) mmol/L ABG Total CO2 30.7 H (21.0-29.0) MMOL/L ABG O2 Saturation 91 L (94-98) % ABG Base Excess -1.2 (-2.0-3.0) mmol/L Lester Test POSITIVE VBG pH 7.188 L* (7.31-7.41) VBG pCO2 76.5 H (41-51) mmHg VBG pO2 59.4 H (25-47) mmHg VBG HCO3 28.4 H (23-28) mmol/L VBG Total CO2 30.8 H (24-29) mmol/L VBG O2 Saturation 89.9 H (60-80) % VBG Base Excess -1.5 (-2 - +2) mmol/L Ionized Calcium (1.15-1.33) mmol/L O2 Delivery Device BiPAP FiO2 25.00 EPAP 5 cmH2O IPAP 20 cmH2O Sodium (135-145) mmol/L Potassium (3.5-4.5) mmol/L Chloride (101-111) mmol/L Carbon Dioxide (21-32) mmol/L Anion Gap (6-13) BUN (6-20) mg/dL Creatinine (0.6-1.3) mg/dL Estimated GFR (MDRD) (>89) Glucose (74-104) mg/dL Lactic Acid 0.4 L (0.5-2.2) mmol/L Calcium (8.5-10.3) mg/dL Phosphorus (2.5-5.0) mg/dL Magnesium (1.7-2.3) mg/dL Vitamin B12 (180-914) pg/mL Urine RBC (0-5) /HPF Urine WBC (0-5) /HPF Ur Squamous Epith Cells (<= Few) Urine Bacteria (None Seen) /HPF Urine Culture Comments Nasal Screen MRSA (PCR) NEGATIVE (NEGATIVE) 05/28/24 05/28/24 05/28/24 Range/Units 12:27 10:47 08:39 WBC (4.8-10.8) x10^3/uL RBC (4.20-5.40) 10^6/uL Hgb (12.0-16.0) g/dL Hct (37.0-47.0) % MCV (81.0-99.0) fL MCH (27.0-31.0) pg MCHC (32.0-36.0) g/dL RDW (12.0-15.0) % Plt Count (130-450) 10^3/uL MPV (7.9-10.8) fL Bld Gas Analysis Time 1239 Sample Site RIGHT RADIAL ABG pH 7.18 L* (7.35-7.45) ABG pCO2 78 H* (34-45) mmHg ABG pO2 55 L (80-100) mmHg ABG HCO3 28.6 H (22.0-26.0) mmol/L ABG Total CO2 31.0 H (21.0-29.0) MMOL/L ABG O2 Saturation 87 L* (94-98) % ABG Base Excess -1.4 (-2.0-3.0) mmol/L Lester Test POSITIVE VBG pH (7.31-7.41) VBG pCO2 (41-51) mmHg VBG pO2 (25-47) mmHg VBG HCO3 (23-28) mmol/L VBG Total CO2 (24-29) mmol/L VBG O2 Saturation (60-80) % VBG Base Excess (-2 - +2) mmol/L Ionized Calcium (1.15-1.33) mmol/L O2 Delivery Device BiPAP FiO2 25.00 EPAP 5 cmH2O IPAP 16 cmH2O Sodium (135-145) mmol/L Potassium (3.5-4.5) mmol/L Chloride (101-111) mmol/L Carbon Dioxide (21-32) mmol/L Anion Gap (6-13) BUN (6-20) mg/dL Creatinine (0.6-1.3) mg/dL Estimated GFR (MDRD) (>89) Glucose (74-104) mg/dL Lactic Acid (0.5-2.2) mmol/L Calcium (8.5-10.3) mg/dL Phosphorus (2.5-5.0) mg/dL Magnesium (1.7-2.3) mg/dL Vitamin B12 501 (180-914) pg/mL Urine RBC 0-5 (0-5) /HPF Urine WBC 6-10 H (0-5) /HPF Ur Squamous Epith Cells FEW Squamous (<= Few) Urine Bacteria Moderate H (None Seen) /HPF Urine Culture Comments INDICATED Nasal Screen MRSA (PCR) (NEGATIVE) Diagnostic Imaging Diagnostic Imaging Results: positive Final report reviewed Diagnostic Imaging Comments: Chest x-ray shows cardiomegaly with interstitial prominence and pleural effusions, consistent with CHF. Sepsis Event Note (H) Evaluation Current Stage of Sepsis: Septic shock Possible source of Sepsis: positive Pulmonary Sepsis Criteria Sepsis Criteria: Recorded Respiratory Rate greater than 20, SBP drop more than 40mHg, MAP less than 65 mmHg and SBP less than 90 mmHg Assessment/Plan Problem List (1) Acute metabolic encephalopathy: Impression: Resolved. Likely multifactorial due to CO2 retention as well as possible septic shock. For CO2 retention in setting of obesity hypoventilation syndrome - continue BiPAP during all sleeping hours, including daytime naps. May also have a component of septic shock with hypotension, bradycardia, fever and AMS. Continue cefepime at this time. Vancomycin discontinued. Discussed with ED physician - will require closer monitoring in the ICU for BIPAP use and for Levophed use. (2) Septic shock: Impression: Patient with hypotension currently requiring Levophed, as well as one-time fever en route. MRSA swab ordered, negative. Vancomycin discontinued, Blood cultures ordered x 2. Continue cefepime at this time. (3) Macrocytic anemia: Impression: Likely due to former history of chronic alcohol use. Stable, continue to trend, transfuse for Hb less than 7. Vitamin B12 within normal limits. (4) Respiratory acidosis: Impression: Resolving. Due to CO2 retention in the setting of obesity hypoventilation syndrome. Continue BiPAP use at this time. (5) Chronic respiratory failure requiring use of nocturnal bilevel positive airway pressure (BPAP) by mask: Impression: See above. (6) Bradycardia: Impression: Bradycardia of 47 on admission. Patient on Coreg at home. Given 1 dose of glucagon in the emergency room. Continue to hold Coreg, likely indefinitely. (7) Paroxysmal atrial fibrillation: Impression: Continue Eliquis at this time. Coreg held, patient was bradycardic on admission. (8) Morbid obesity: Impression: Patient on Ozempic as an outpatient. Per review of palliative care notes, is motivated to do lifestyle changes for weight loss. (9) 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: Impression: Echocardiogram from 01/06/2023 reviewedpatient has left ventricular systolic function at the lower limits of normal with EF of 50 to 55%., Difficult to assess diastolic impairment due to presence of arrhythmia at the time, atrial fibrillation. Continue to closely monitor respiratory status. Initial chest x-ray reviewed, shows cardiomegaly, mild bilateral infiltrates. (10) Breast cancer: Impression: Follows up regularly with Dr. Boyd. Last appointment was 03/08/2024, and sees them every 3 months. Notes reviewed. Has right breast cancer, triple negative. Treated with lumpectomy/radiation followed by adjuvant AC/T in 2005. Currently not a surgical candidate due to multiple comorbidities. Started letrozole in 06/2023 with complete chemical response. Qualifiers: Breast location: unspecified site of breast Estrogen receptor status: n egative Patient sex: female Laterality: right Qualified Code(s): C50.911 - Malignant neoplasm of unspecified site of right female breast; Z17.1 - Estrogen receptor negative status [ER-] (11) Morbid obesity with BMI of 45.0-49.9, adult: Impression: Currently on Ozempic as an outpatient for weight loss. Continue to encourage lifestyle modifications. (12) Obesity hypoventilation syndrome: Impression: Management as above.
[2024-05-29] MEDS: SODIUM CHLORIDE 0.9% 500 ML IV ONE (11:54)
[2024-05-29] MEDS: INSULIN LISPRO 300 UNIT/3 ML PEN SUBQ SCH (12:11)
--- NOTE | 2024-05-29 12:51 | PHARMACY PROGRESS NOTE ---
Best Possible Medication History Admit Date and Time: 05/28/24 [id number] Processed by: Pharmacy Medications reviewed in ED?: No Medication History completed: Yes Patient Interview: Completed Secondary Source(s): Physician records, Pharmacy records and Insurance records [facility] Statement: As the person ultimately responsible for medication therapy, providers are able to order a medication from an existing home medication list in [facility] via the "Reconcile Routine" prior to Confirmation of that medication by system support administrator. Such practice is discouraged except when the physician, in their clinical judgment, deems that a medical need exists for a medication without regard to previous use.
[2024-05-29] MEDS: MAGNESIUM OXIDE 400 MG TABLET PO ONE ×2 (13:08→19:43)
[2024-05-29] MEDS: SODIUM CHLORIDE FLUSH 0.9% 10 ML SYRINGE IVP PRN (21:06)
[2024-05-29 22:12] LABS: CALCIUM, IONIZED 1.02 mmol/L (1.15-1.33); VBG PH 7.286 (7.31-7.41)
[2024-05-30] MEDS: SODIUM CHLORIDE FLUSH 0.9% 10 ML SYRINGE IVP SCH (00:16)
[2024-05-30] MEDS: CALCIUM GLUC 1,000MG/50ML-NACL 1,000 MG/50 ML BAG IV ONE (00:25)
[2024-05-30 04:50] LABS: HCT - HEMATOCRIT 33.8 % (37.0-47.0); HGB - HEMOGLOBIN 10.5 g/dL (12.0-16.0); MEAN CORPUSCULAR HEMOGLOBIN 29.5 pg (27.0-31.0); MEAN CORPUSCULAR HGB CONC 31.1 g/dL (32.0-36.0); MEAN CORPUSCULAR VOLUME 94.9 fL (81.0-99.0); MEAN PLATELET VOLUME 11.4 fL (7.9-10.8); RED BLOOD COUNT 3.56 10^6/uL (4.20-5.40); RED CELL DISTRIBUTION WIDTH 13.7 % (12.0-15.0)
[2024-05-30 05:04] LABS: CALCIUM 7.8 mg/dL (8.5-10.3); POTASSIUM 3.5 mmol/L (3.5-4.5)
--- NOTE | 2024-05-30 08:34 | PROVIDER PROGRESS NOTE ---
Subjective Subjective Subjective: Patient states that she feels better this morning. She is alert and oriented. She is using her home BiPAP now, at night, as well as during naps during the day. She denies any shortness of breath, fevers, chills. She is eager to go home. She is eating and drinking well. Overall plan, as explained to patient, is to wean her off the Levophed (she's on and off and requiring just a touch), switch her IV antibiotics to oral antibiotics today, and then to get her home. We will continue to hold her Coreg due to her bradycardia. Current Medications Current Medications Current Medications: Current Medications Generic Name Dose Route Start Last Admin Trade Name Freq PRN Reason Stop Dose Admin Acetaminophen 650 mg 05/28/24 12:49 05/29/24 13:13 Acetaminophen 325 Mg Tablet PO 650 mg QID PRN Administration Pain or Fever > 38C (100.4F) Albuterol/Ipratropium 3 ml 05/28/24 15:02 Ipratropium/Albuterol 3 Ml Neb INH RTQID PRN Shortness of Air/Wheezing Amoxicillin/Clavulanate Potassium 1 tab 05/30/24 09:00 Amox/Clav 875 Mg/125 Mg Tablet PO BID TAI Apixaban 5 mg 05/28/24 21:00 05/29/24 21:03 Apixaban 5 Mg Tablet PO 5 mg BID TAI Administration Atorvastatin Calcium 20 mg 05/28/24 21:00 05/29/24 21:03 Atorvastatin 10 Mg Tablet PO 20 mg QPM TAI Administration Azithromycin 250 mg 05/30/24 09:00 Azithromycin 250 Mg Tablet PO DAILY TAI Cholecalciferol 5,000 unit 05/28/24 12:21 05/29/24 08:40 Cholecalciferol 5,000 Unit Capsule PO 5,000 unit DAILY TAI Administration Cyanocobalamin 1,000 mcg 05/29/24 09:00 05/29/24 08:40 Cyanocobalamin 500 Mcg Tablet PO 1,000 mcg DAILY TAI Administration Methocarbamol 375 mg 05/28/24 12:21 Methocarbamol 500 Mg Tablet PO TID PRN Spasms Multi-Ingredient Ointment 1 applic 05/30/24 00:07 Zinc Oxide 20% Oint 30 Gm Tube TOP PRN PRN Skin Care Multivitamins/Minerals 1 tab 05/29/24 08:00 05/29/24 08:40 Multivitamin W/Minerals Tablet PO 1 tab DAILYWM TAI Administration Ondansetron HCl 4 mg 05/28/24 12:21 Ondansetron Odt 4 Mg Tablet PO Q8H PRN Nausea / Vomiting Pantoprazole Sodium 40 mg 05/28/24 21:00 05/29/24 21:03 Pantoprazole 40 Mg Tablet PO 40 mg BID TAI Administration Letrozole 2.5 Mg 1 each 05/29/24 09:00 05/29/24 08:49 Tablet PO Not Given DAILY TAI Pregabalin 75 mg 05/28/24 14:00 05/30/24 06:15 Pregabalin 25 Mg Capsule PO 75 mg TID TAI Administration Sodium Chloride 20 ml 05/29/24 20:57 05/30/24 04:38 Sodium Chloride Flush 0.9% 10 Ml Syringe IVP 20 ml PRN PRN Administration After Blood Draw Sodium Chloride 10 ml 05/30/24 01:00 05/30/24 00:16 Sodium Chloride Flush 0.9% 10 Ml Syringe IVP 10 ml 0100,0900,1700 TAI Administration Trazodone HCl 100 mg 05/28/24 21:00 05/29/24 21:03 Trazodone 50 Mg Tablet PO 100 mg QPM TAI Administration Objective Vital Signs/Intake & Output Reviewed Vital Signs: Yes Vital Signs: Vital Signs x48h Temp Pulse Resp BP Pulse Ox O2 Flow Rate 05/30/24 07:00 2 05/30/24 07:00 97.5 F L 51 L 18 145/59 H 97 2 05/30/24 06:00 97.5 F L 55 L 12 154/58 H 96 2 05/30/24 05:00 97.5 F L 46 L 13 146/57 H 96 2 05/30/24 04:31 46 L 13 114/45 L 94 2 05/30/24 04:30 46 L 18 114/44 L 94 2 05/30/24 04:00 97.5 F L 47 L 19 122/52 L 95 2 05/30/24 03:00 97.5 F L 45 L 19 129/49 L 97 2 05/30/24 02:00 97.5 F L 55 L 25 H 147/59 H 97 2 05/30/24 01:00 97.7 F 51 L 18 142/59 H 89 L 2 Intake & Output: Intake & Output 05/28/24 05/29/24 05/30/24 05/31/24 05:59 05:59 05:59 05:59 Intake Total 2003 / 194 38 / 38 Output Total 1280 / 1280 1979 125 / 125 Balance 724 / 724 -39 / -39 -87 / -87 Weight (kg) 124.5 kg Objective General Appearance: positive No acute distress; negative Anxious or Lethargic Eyes Bilateral: positive Normal inspection, PERRL and EOMI ENT: positive ENT inspection nml, Pharynx nml and No signs of dehydration Neck: positive Thyroid nml, No JVD and Trachea midline Respiratory: positive Chest non-tender, No respiratory distress and Breath sounds nml; negative Wheezes, Rales or Rhonchi Cardiovascular: positive Regular rate & rhythm, No murmur, No gallop and Bradycardia Abdomen: positive Non-tender and No distention; negative Guarding, Rebound, Splenomegaly or Mass Back: positive Nml inspection; negative CVA tenderness (R) or CVA tenderness (L) Skin: positive Color nml, No rash and Dry; negative Warm Extremities: positive Non-tender, Full ROM and No pedal edema Neurologic/Psychiatric: positive Oriented x3 and Weakness (bedbound at baseline) Lab Results 05/30/24 04:40 05/30/24 04:40 Other Labs: Lab Results x24hrs 05/30/24 05/30/24 05/30/24 Range/Units 08:11 04:40 00:00 WBC 10.0 (4.8-10.8) x10^3/uL RBC 3.56 L (4.20-5.40) 10^6/uL Hgb 10.5 L (12.0-16.0) g/dL Hct 33.8 L (37.0-47.0) % MCV 94.9 (81.0-99.0) fL MCH 29.5 (27.0-31.0) pg MCHC 31.1 L (32.0-36.0) g/dL RDW 13.7 (12.0-15.0) % Plt Count 160 (130-450) 10^3/uL MPV 11.4 H (7.9-10.8) fL VBG pH (7.31-7.41) Ionized Calcium (1.15-1.33) mmol/L Sodium 141 (135-145) mmol/L Potassium 3.5 (3.5-4.5) mmol/L Chloride 104 (101-111) mmol/L Carbon Dioxide 31 (21-32) mmol/L Anion Gap 6.0 (6-13) BUN 57 H (6-20) mg/dL Creatinine 2.0 H (0.6-1.3) mg/dL Estimated GFR (MDRD) 24 L (>89) Glucose 122 H (74-104) mg/dL POC Whole Bld Glucose 100 (70-100) mg/dL Calcium 7.8 L (8.5-10.3) mg/dL Magnesium 1.9 (1.7-2.3) mg/dL 05/29/24 05/29/24 05/29/24 Range/Units 20:37 17:45 12:01 WBC (4.8-10.8) x10^3/uL RBC (4.20-5.40) 10^6/uL Hgb (12.0-16.0) g/dL Hct (37.0-47.0) % MCV (81.0-99.0) fL MCH (27.0-31.0) pg MCHC (32.0-36.0) g/dL RDW (12.0-15.0) % Plt Count (130-450) 10^3/uL MPV (7.9-10.8) fL VBG pH 7.286 L (7.31-7.41) Ionized Calcium 1.02 L (1.15-1.33) mmol/L Sodium (135-145) mmol/L Potassium (3.5-4.5) mmol/L Chloride (101-111) mmol/L Carbon Dioxide (21-32) mmol/L Anion Gap (6-13) BUN (6-20) mg/dL Creatinine (0.6-1.3) mg/dL Estimated GFR (MDRD) (>89) Glucose (74-104) mg/dL POC Whole Bld Glucose 175 (70-100) mg/dL Calcium (8.5-10.3) mg/dL Magnesium 1.8 (1.7-2.3) mg/dL Diagnostic Imaging Diagnostic Imaging Results: positive Final report reviewed Diagnostic Imaging Comments: Chest x-ray shows cardiomegaly with interstitial prominence and pleural effusions, consistent with CHF. Sepsis Event Note (H) Evaluation Current Stage of Sepsis: Septic shock Possible source of Sepsis: positive Pulmonary Sepsis Criteria Sepsis Criteria: Recorded Respiratory Rate greater than 20, SBP drop more than 40mHg, MAP less than 65 mmHg and SBP less than 90 mmHg Assessment/Plan Problem List (1) Acute metabolic encephalopathy: Impression: Resolved. Likely multifactorial due to CO2 retention as well as possible septic shock. For CO2 retention in setting of obesity hypoventilation syndrome - continue BiPAP during all sleeping hours, including daytime naps. May also have a component of septic shock with hypotension, bradycardia, fever and AMS on admission. Vancomycin and cefepime discontinued, transitioned to oral antibiotics for possible CAP with Augmentin and azithromycin. Levophed weaning off. Blood culturse and urine culture with no growth to date. (2) Septic shock: Impression: Patient with hypotension currently requiring Levophed, as well as one-time fever en route. MRSA swab ordered, negative. Vancomycin discontinued, cefepime discontinued. Blood cultures ordered x 2 with no growth to date. Urine culture negative. Levophed weaning off. Transitioned to oral antibiotics for possible CAP with Augmentin and azithromycin, will complete five day course. (3) Macrocytic anemia: Impression: Stable. Likely due to former history of chronic alcohol use. Stable, continue to trend, transfuse for Hb less than 7. Vitamin B12 within normal limits. Iron studies ordered, pending. (4) Respiratory acidosis: Impression: Resolving. Due to CO2 retention in the setting of obesity hypoventilation syndrome. Continue BiPAP use at this time during all sleeping hours. Laboratory Tests 05/28/24 05/28/24 05/29/24 14:36 17:21 20:37 VBG pH 7.188 L* 7.229 L 7.286 L (5) Chronic respiratory failure requiring use of nocturnal bilevel positive airway pressure (BPAP) by mask: Impression: See above. (6) Bradycardia: Impression: Bradycardia of 47 on admission. Patient on Coreg at home. Given 1 dose of glucagon in the emergency room. Continue to hold Coreg, likely indefinitely. (7) Paroxysmal atrial fibrillation: Impression: Continue Eliquis at this time. Coreg held, patient was bradycardic on admission. (8) Morbid obesity: Impression: Patient on Ozempic as an outpatient. Per review of palliative care notes, is motivated to do lifestyle changes for weight loss. (9) 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: Impression: Not in acute exacerbation. Echocardiogram from 01/06/2023 reviewedpatient has left ventricular systolic function at the lower limits of normal with EF of 50 to 55%., Difficult to assess diastolic impairment due to presence of arrhythmia at the time, atrial fibrillation. Continue to closely monitor respiratory status. Initial chest x-ray reviewed, shows cardiomegaly, mild bilateral infiltrates. (10) Breast cancer: Impression: Follows up regularly with Dr. Boyd. Last appointment was 03/08/2024, and sees them every 3 months. Notes reviewed. Has right breast cancer, triple negative. Treated with lumpectomy/radiation followed by adjuvant AC/T in 2005. Currently not a surgical candidate due to multiple comorbidities. Started letrozole in 06/2023 with complete chemical response. Qualifiers: Breast location: unspecified site of breast Estrogen receptor status: n egative Laterality: right Patient sex: female Qualified Code(s): C50.911 - Malignant neoplasm of unspecified site of right female breast; Z17.1 - Estrogen receptor negative status [ER-] (11) Morbid obesity with BMI of 45.0-49.9, adult: Impression: Currently on Ozempic as an outpatient for weight loss. Continue to encourage lifestyle modifications. (12) Obesity hypoventilation syndrome: Impression: Management as above.
[2024-05-30] MEDS: AZITHROMYCIN 250 MG TABLET PO SCH (08:52)
[2024-05-30] MEDS: AMOX/CLAV 875 MG/125 MG TABLET PO SCH (08:52)
[2024-05-30] MEDS ORDERED: VANCOMYCIN INJ 2 GM in SODIUM CHLORIDE 0.9% 500 ML IV SCH (10:00)
[2024-05-30] MEDS ORDERED: NOREPINEPHRINE/0.9 % NS 8 MG/250 ML BAG IV ONE (16:30)
[2024-05-30] MEDS: NOREPINEPHRINE/0.9 % NS 8 MG/250 ML BAG IV SCH (17:24)
[2024-05-31 04:58] LABS: HCT - HEMATOCRIT 32.1 % (37.0-47.0); HGB - HEMOGLOBIN 9.8 g/dL (12.0-16.0); MEAN CORPUSCULAR HEMOGLOBIN 29.4 pg (27.0-31.0); MEAN CORPUSCULAR HGB CONC 30.5 g/dL (32.0-36.0); MEAN CORPUSCULAR VOLUME 96.4 fL (81.0-99.0); MEAN PLATELET VOLUME 10.9 fL (7.9-10.8); RED BLOOD COUNT 3.33 10^6/uL (4.20-5.40); RED CELL DISTRIBUTION WIDTH 14.1 % (12.0-15.0); WHITE BLOOD COUNT 6.6 x10^3/uL (4.8-10.8)
[2024-05-31 05:05] LABS: CALCIUM, IONIZED 1.03 mmol/L (1.15-1.33); VBG PH 7.288 (7.31-7.41)
[2024-05-31 05:13] LABS: MAGNESIUM 1.9 mg/dL (1.7-2.3); PHOSPHORUS 1.9 mg/dL (2.5-5.0)
[2024-05-31 05:45] LABS: CALCIUM 7.7 mg/dL (8.5-10.3); CREATININE 1.8 mg/dL (0.6-1.3); POTASSIUM 3.6 mmol/L (3.5-4.5)
[2024-05-31] MEDS: CALCIUM GLUC 1,000MG/50ML-NACL 1,000 MG/50 ML BAG IV ONE ×4 (06:16→23:42)
[2024-05-31] MEDS: NEUTRA-PHOS 250 MG TABLET PO SCH (06:29)
[2024-05-31] MEDS: POTASSIUM CHLORIDE 20 MEQ TABLET PO ONE (08:14)
[2024-05-31] MEDS: ZINC OXIDE 20% OINT 30 GM TUBE TOP PRN (08:21)
[2024-05-31] MEDS ORDERED: NOREPINEPHRINE IV SCH (09:00)
[2024-05-31] MEDS ORDERED: NS IV SCH (09:00)
[2024-05-31 10:32] LABS: IONIZED CALCIUM IF INDICATED YES; POTASSIUM 3.2 mmol/L (3.5-4.5)
[2024-05-31 10:46] LABS: VBG PH 7.255 (7.31-7.41)
[2024-05-31 10:47] LABS: CALCIUM, IONIZED 1.09 mmol/L (1.15-1.33)
[2024-05-31] MEDS: POTASSIUM CHLOR 10 MEQ/100 ML 10 MEQ/100 ML BAG IV SCH (11:58)
--- NOTE | 2024-05-31 16:40 | PROVIDER PROGRESS NOTE ---
Subjective Prog Note Date Prog Note Date: 05/31/24 Prog Note Time: 16:34 Subjective Subjective: Pt feels better overall. Dyspnea improved, back to baseline. No cough. No pain. Tolerating po intake. No lightheadedness, no CP. Current Medications Current Medications Current Medications: Current Medications Generic Name Dose Route Start Last Admin Trade Name Freq PRN Reason Stop Dose Admin Acetaminophen 650 mg 05/28/24 12:49 05/31/24 08:14 Acetaminophen 325 Mg Tablet PO 650 mg QID PRN Administration Pain or Fever > 38C (100.4F) Albuterol/Ipratropium 3 ml 05/28/24 15:02 Ipratropium/Albuterol 3 Ml Neb INH RTQID PRN Shortness of Air/Wheezing Amoxicillin/Clavulanate Potassium 1 tab 05/30/24 09:00 05/31/24 08:15 Amox/Clav 875 Mg/125 Mg Tablet PO 1 tab BID TAI Administration Apixaban 5 mg 05/28/24 21:00 05/31/24 08:14 Apixaban 5 Mg Tablet PO 5 mg BID TAI Administration Atorvastatin Calcium 20 mg 05/28/24 21:00 05/30/24 21:41 Atorvastatin 10 Mg Tablet PO 20 mg QPM TAI Administration Azithromycin 250 mg 05/30/24 09:00 05/31/24 08:15 Azithromycin 250 Mg Tablet PO 250 mg DAILY TAI Administration Cholecalciferol 5,000 unit 05/28/24 12:21 05/31/24 08:14 Cholecalciferol 5,000 Unit Capsule PO 5,000 unit DAILY TAI Administration Cyanocobalamin 1,000 mcg 05/29/24 09:00 05/31/24 08:14 Cyanocobalamin 500 Mcg Tablet PO 1,000 mcg DAILY TAI Administration Norepinephrine/Sodium Chloride 8 mg in 250 mls @ 15 mls/hr 05/30/24 17:00 05/31/24 11:58 Levophed 8 Mg/250-0.9% Nacl IV 4 mcg/min .[id number] TAI 7.5 mls/hr Titration Protocol 8 MCG/MIN Methocarbamol 375 mg 05/28/24 12:21 Methocarbamol 500 Mg Tablet PO TID PRN Spasms Multi-Ingredient Ointment 1 applic 05/30/24 00:07 05/31/24 08:21 Zinc Oxide 20% Oint 30 Gm Tube TOP 1 applic PRN PRN Administration Skin Care Multivitamins/Minerals 1 tab 05/29/24 08:00 05/31/24 08:13 Multivitamin W/Minerals Tablet PO 1 tab DAILYWM TAI Administration Ondansetron HCl 4 mg 05/28/24 12:21 Ondansetron Odt 4 Mg Tablet PO Q8H PRN Nausea / Vomiting Pantoprazole Sodium 40 mg 05/28/24 21:00 05/31/24 08:14 Pantoprazole 40 Mg Tablet PO 40 mg BID TAI Administration Letrozole 2.5 Mg 1 each 05/29/24 09:00 05/31/24 11:58 Tablet PO Not Given DAILY TAI Pregabalin 75 mg 05/28/24 14:00 05/31/24 13:58 Pregabalin 25 Mg Capsule PO 75 mg TID TAI Administration Sodium Chloride 20 ml 05/29/24 20:57 05/31/24 04:45 Sodium Chloride Flush 0.9% 10 Ml Syringe IVP 20 ml PRN PRN Administration After Blood Draw Sodium Chloride 10 ml 05/30/24 01:00 05/31/24 08:16 Sodium Chloride Flush 0.9% 10 Ml Syringe IVP 10 ml 0100,0900,1700 TAI Administration Trazodone HCl 100 mg 05/28/24 21:00 05/30/24 21:42 Trazodone 50 Mg Tablet PO 100 mg QPM TAI Administration Objective Vital Signs/Intake & Output Vital Signs: Vital Signs Temp Pulse Resp BP BP Pulse Ox O2 Flow Rate 05/31/24 16:00 36.9 C 61 18 154/50 H 93 1 05/31/24 15:00 65 24 113/55 L 95 1 05/31/24 14:00 62 18 124/60 93 1 05/31/24 13:00 61 18 122/63 93 1 Intake & Output: Intake & Output 05/29/24 05/30/24 05/31/24 06/01/24 05:59 05:59 05:59 05:59 Intake Total 2003 / 194 555 / 555 745 / 745 Output Total 1280 / 1280 1979 / 1979 2099 / 2099 525 / 525 Balance 724 / 724 -39 / -39 -1545 / -1545 220 / 220 Weight (kg) 124.5 kg Objective Comments/Other: Elderly woman sitting in bed, NAD, slcera anicteric, MMM Lungs: diminished at bases, no wheeze, nonlabored RRR, S1S2, 2+ LE edema Abd soft, NT, ND, BS+ Alert, answers questions appropriately, moves all extremities, normal tone, now tremor no clubbing or cyanosis day draining clear yellow urine CVL R neck c/d/i Lab Results 05/31/24 04:47 05/31/24 09:58 Other Labs: Lab Results x24hrs 05/31/24 05/31/24 05/31/24 Range/Units 09:58 09:58 04:47 WBC 6.6 (4.8-10.8) x10^3/uL RBC 3.33 L (4.20-5.40) 10^6/uL Hgb 9.8 L (12.0-16.0) g/dL Hct 32.1 L (37.0-47.0) % MCV 96.4 (81.0-99.0) fL MCH 29.4 (27.0-31.0) pg MCHC 30.5 L (32.0-36.0) g/dL RDW 14.1 (12.0-15.0) % Plt Count 148 (130-450) 10^3/uL MPV 10.9 H (7.9-10.8) fL VBG pH 7.255 L 7.288 L (7.31-7.41) Ionized Calcium YES 1.09 L 1.03 L (1.15-1.33) mmol/L Sodium 144 (135-145) mmol/L Potassium 3.2 L 3.6 (3.5-4.5) mmol/L Chloride 106 (101-111) mmol/L Carbon Dioxide 35 H (21-32) mmol/L Anion Gap 3.0 L (6-13) BUN 46 H (6-20) mg/dL Creatinine 1.8 H (0.6-1.3) mg/dL Estimated GFR (MDRD) 27 L (>89) Glucose 108 H (74-104) mg/dL POC Whole Bld Glucose (70-100) mg/dL Calcium 8.0 L 7.7 L (8.5-10.3) mg/dL Phosphorus 1.9 L (2.5-5.0) mg/dL Magnesium 1.9 (1.7-2.3) mg/dL 05/30/24 Range/Units 20:22 WBC (4.8-10.8) x10^3/uL RBC (4.20-5.40) 10^6/uL Hgb (12.0-16.0) g/dL Hct (37.0-47.0) % MCV (81.0-99.0) fL MCH (27.0-31.0) pg MCHC (32.0-36.0) g/dL RDW (12.0-15.0) % Plt Count (130-450) 10^3/uL MPV (7.9-10.8) fL VBG pH (7.31-7.41) Ionized Calcium (1.15-1.33) mmol/L Sodium (135-145) mmol/L Potassium (3.5-4.5) mmol/L Chloride (101-111) mmol/L Carbon Dioxide (21-32) mmol/L Anion Gap (6-13) BUN (6-20) mg/dL Creatinine (0.6-1.3) mg/dL Estimated GFR (MDRD) (>89) Glucose (74-104) mg/dL POC Whole Bld Glucose 172 (70-100) mg/dL Calcium (8.5-10.3) mg/dL Phosphorus (2.5-5.0) mg/dL Magnesium (1.7-2.3) mg/dL Other Results/Comments Other Results/Comments: UOP: ~50 ml/hr over 8 hour today Sepsis Event Note (H) Evaluation Current Stage of Sepsis: Septic shock Possible source of Sepsis: positive Pulmonary Sepsis Criteria Sepsis Criteria: Recorded Respiratory Rate greater than 20, SBP drop more than 40mHg, MAP less than 65 mmHg and SBP less than 90 mmHg Assessment/Plan Problem List (1) Acute metabolic encephalopathy: (2) Septic shock: (3) Macrocytic anemia: (4) Respiratory acidosis: (5) Chronic respiratory failure requiring use of nocturnal bilevel positive airway pressure (BPAP) by mask: (6) Bradycardia: (7) Paroxysmal atrial fibrillation: (8) Morbid obesity: (9) 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: (10) Breast cancer: Qualifiers: Breast location: unspecified site of breast Estrogen receptor status: n egative Patient sex: female Laterality: right Qualified Code(s): C50.911 - Malignant neoplasm of unspecified site of right female breast; Z17.1 - Estrogen receptor negative status [ER-] (11) Morbid obesity with BMI of 45.0-49.9, adult: (12) Obesity hypoventilation syndrome: Impression: 83 yo F with pmhx of obesity hypoventillation syndrome (home O2 2 L during day, noc BiPAP), parox afib on DOAC, HFpEF, breast ca on letrozole, presenting with AMS, found to have CO2 retention and resp acidosis, septic shock due to suspected CAP. CXR showed interstitial prominence, small bilateral pleural effusions. Admitted to the ICU on pressor. 1. septic shock due to suspected bacterial pneumonia: afebrile, wbc normal, good UOP. nasal MRSA neg. Pt continues to require very low dose norepinephrine drip during day today with labile BPs. - cont augmentin and azithromycin for 5-7 day course - wean norepi as tolerated for MAP >65 - if clinical status deteriorates, increased pressor requirement, fever, consider switching back to broader iv abx and placing art line for accurate BP readings 2. OHS, acute on chronic hypercarbic respiratory failure, morbid obesity: now comfortable on home o2 and Noc BiPAP settings. - cont NC O2 during day, BiPAP at night - wt loss counseling - resume ozempic on discharge - consider diuretics 3. parox afib, bradycardia: - cont apixaban - hold BB, monitor on tele - may hold carvedilol on discharge 4. macrocytic anemia: H/H gradually trending down. No gross blood loss. Consider marrow suppression from sepsis, h/o etoh abuse. B12 wnl. - f/u Fe studies, daily CBC 5. hypocalcemia, hypophosphatemia: ? poor po intake - replete prn - obtain PTH 6. AMS: due most likely to CO2 retention and sepsis. Now back to baseline. - monitor Dvt ppx: on DOAC Dispo plan and GOC: Came from home with ? 24 hr [employer]. Pending weaning off pressors.
[2024-05-31] MEDS: CALCIUM CHLORIDE 1,000 MG in SODIUM CHLORIDE 0.9% 50 ML IV ONE (17:01)
[2024-05-31] MEDS: POTASSIUM CHLOR 20 MEQ/100 ML 20 MEQ/100 ML BAG IV SCH (17:02)
[2024-05-31 18:14] LABS: CALCIUM, IONIZED 1.1 mmol/L (1.15-1.33); VBG PH 7.257 (7.31-7.41)
[2024-05-31 21:56] LABS: CALCIUM, IONIZED 1.1 mmol/L (1.15-1.33); VBG PH 7.303 (7.31-7.41)
[2024-06-01 04:33] LABS: CALCIUM, IONIZED 1.13 mmol/L (1.15-1.33); VBG PH 7.281 (7.31-7.41)
[2024-06-01 04:34] LABS: BASOPHILS # (AUTO) 0.1 10^3/uL (0.0-0.1); BASOPHILS % (AUTO) 0.5 %; EOSINOPHILS # (AUTO) 0.3 10^3/uL (0.0-0.7); EOSINOPHILS % (AUTO) 2.9 %; HCT - HEMATOCRIT 33.3 % (37.0-47.0); LYMPHOCYTES # (AUTO) 0.6 10^3/uL (1.5-3.5); LYMPHOCYTES % (AUTO) 6.3 %; MEAN CORPUSCULAR HEMOGLOBIN 29.4 pg (27.0-31.0); MEAN CORPUSCULAR VOLUME 97.9 fL (81.0-99.0); MONOCYTES # (AUTO) 1.2 10^3/uL (0.0-1.0); MONOCYTES % (AUTO) 11.9 %; NEUTROPHILS # (AUTO) 7.9 10^3/uL (1.5-6.6); NEUTROPHILS % (AUTO) 77.5 %; PLT - PLATELET COUNT 156 10^3/uL (130-450); RED CELL DISTRIBUTION WIDTH 14.4 % (12.0-15.0); WHITE BLOOD COUNT 10.2 x10^3/uL (4.8-10.8)
[2024-06-01 04:51] LABS: CALCIUM 8.3 mg/dL (8.5-10.3); CREATININE 1.8 mg/dL (0.6-1.3); PHOSPHORUS 1.9 mg/dL (2.5-5.0); POTASSIUM 4.3 mmol/L (3.5-4.5)
[2024-06-01] MEDS: NEUTRA-PHOS 250 MG TABLET PO SCH (06:27)
[2024-06-01] MEDS: PIPERACILLIN/TAZOBACTAM 4.5 GM in SODIUM CHLORIDE 0.9% MINIBAG 100 ML IV SCH (09:15)
[2024-06-01] MEDS ORDERED: VANCOMYCIN INJ 1 GM, VANCOMYCIN INJ 250 MG in SODIUM CHLORIDE 0.9% 250 ML IV SCH (11:00)
[2024-06-01] MEDS: methocarbamoL 500 MG TABLET PO PRN (12:04)
--- NOTE | 2024-06-01 12:40 | XRAY Report ---
PROCEDURE: XR Chest 1V INDICATIONS: pneumonia, re-evaluate infiltrates TECHNIQUE: One view of the chest was acquired. COMPARISON: 05/28/2024. FINDINGS: Surgical changes and devices: Right internal jugular central line with tip projecting over the right atrium. Surgical clips in the right axilla. Lungs and pleura: No pneumothorax. Persistent small to moderate left pleural effusion with subjacent atelectasis. Persistent interstitial opacities likely representing pulmonary edema. Mediastinum: Mediastinal contours appear normal. Heart size is stable and enlarged. Bones and chest wall: No suspicious bony lesions. Overlying soft tissues appear unremarkable. IMPRESSION: Compared to prior radiograph on 05/28/2024, persistent [id number] left pleural effusion and in terstitial prominence, likely pulmonary edema in the setting of cardiomegaly. Reviewed by: Silvia Oquendo MD, PhD on 06/01/2024 12:38 PM PDT Approved by: Silvia Oquendo MD, PhD on 06/01/2024 12:38 PM PDT Station ID: [id number]
--- NOTE | 2024-06-01 17:30 | PROVIDER PROGRESS NOTE ---
Subjective Prog Note Date Prog Note Date: 06/01/24 Prog Note Time: 17:20 Subjective Subjective: Pt continues to feel well. Dyspnea improved. No pain. No cough. No n/v/diarrhea, no dysuria. No abd pain. Current Medications Current Medications Current Medications: Current Medications Generic Name Dose Route Start Last Admin Trade Name Freq PRN Reason Stop Dose Admin Acetaminophen 650 mg 05/28/24 12:49 06/01/24 15:31 Acetaminophen 325 Mg Tablet PO 650 mg QID PRN Administration Pain or Fever > 38C (100.4F) Albuterol/Ipratropium 3 ml 05/28/24 15:02 Ipratropium/Albuterol 3 Ml Neb INH RTQID PRN Shortness of Air/Wheezing Apixaban 5 mg 05/28/24 21:00 06/01/24 09:12 Apixaban 5 Mg Tablet PO 5 mg BID TAI Administration Atorvastatin Calcium 20 mg 05/28/24 21:00 05/31/24 21:34 Atorvastatin 10 Mg Tablet PO 20 mg QPM TAI Administration Azithromycin 250 mg 05/30/24 09:00 06/01/24 09:12 Azithromycin 250 Mg Tablet PO 250 mg DAILY TAI Administration Cholecalciferol 5,000 unit 05/28/24 12:21 06/01/24 09:12 Cholecalciferol 5,000 Unit Capsule PO 5,000 unit DAILY TAI Administration Cyanocobalamin 1,000 mcg 05/29/24 09:00 06/01/24 09:12 Cyanocobalamin 500 Mcg Tablet PO 1,000 mcg DAILY TAI Administration Norepinephrine/Sodium Chloride 8 mg in 250 mls @ 15 mls/hr 05/30/24 17:00 06/01/24 03:19 Levophed 8 Mg/250-0.9% Nacl IV 4 mcg/min .[id number] TAI 7.5 mls/hr Administration Protocol 8 MCG/MIN Piperacillin Sod/Tazobactam 100 mls @ 25 mls/hr 06/01/24 08:00 06/01/24 15:38 Sod 4.5 gm/ Sodium Chloride IV 25 mls/hr Q8H TAI Administration Methocarbamol 375 mg 05/28/24 12:21 06/01/24 12:04 Methocarbamol 500 Mg Tablet PO 375 mg TID PRN Administration Spasms Multi-Ingredient Ointment 1 applic 05/30/24 00:07 05/31/24 08:21 Zinc Oxide 20% Oint 30 Gm Tube TOP 1 applic PRN PRN Administration Skin Care Multivitamins/Minerals 1 tab 05/29/24 08:00 06/01/24 09:12 Multivitamin W/Minerals Tablet PO 1 tab DAILYWM TAI Administration Ondansetron HCl 4 mg 05/28/24 12:21 Ondansetron Odt 4 Mg Tablet PO Q8H PRN Nausea / Vomiting Pantoprazole Sodium 40 mg 05/28/24 21:00 06/01/24 09:12 Pantoprazole 40 Mg Tablet PO 40 mg BID TAI Administration Letrozole 2.5 Mg 1 each 05/29/24 09:00 06/01/24 09:13 Tablet PO Not Given DAILY TAI Pregabalin 75 mg 05/28/24 14:00 06/01/24 15:38 Pregabalin 25 Mg Capsule PO 75 mg TID TAI Administration Sodium Chloride 20 ml 05/29/24 20:57 06/01/24 04:35 Sodium Chloride Flush 0.9% 10 Ml Syringe IVP 20 ml PRN PRN Administration After Blood Draw Sodium Chloride 10 ml 05/30/24 01:00 06/01/24 15:39 Sodium Chloride Flush 0.9% 10 Ml Syringe IVP 10 ml 0100,0900,1700 TAI Administration Trazodone HCl 100 mg 05/28/24 21:00 05/31/24 21:35 Trazodone 50 Mg Tablet PO 100 mg QPM TAI Administration Objective Vital Signs/Intake & Output Reviewed Vital Signs: Yes Vital Signs: Vital Signs Temp Pulse Resp BP Pulse Ox O2 Flow Rate 06/01/24 16:00 36.8 C 64 14 133/49 H 93 2 06/01/24 15:00 58 L 16 143/74 H 97 2 06/01/24 14:00 36.8 C 56 L 22 100/76 96 2 Intake & Output: Intake & Output 05/30/24 05/31/24 06/01/24 06/02/24 05:59 05:59 05:59 05:59 Intake Total 1940 / 1940 555 / 555 2139 / 2139 340 / 340 Output Total 1979 / 1979 2099 / 2099 1340 / 1340 395 / 395 Balance -39 / -39 -1545 / -1545 799 / 799 -55 / -55 Objective Comments/Other: Elderly woman sitting in bed, NAD, slcera anicteric, MMM Lungs: diminished at bases, no wheeze, nonlabored RRR, S1S2, 2+ LE edema Abd soft, NT, ND, BS+ Alert, answers questions appropriately, moves all extremities, normal tone, now tremor no clubbing or cyanosis day draining clear yellow urine CVL R neck c/d/i Lab Results 06/01/24 04:24 06/01/24 04:24 Other Labs: Lab Results x24hrs 06/01/24 05/31/24 05/31/24 Range/Units 04:24 21:42 20:15 WBC 10.2 (4.8-10.8) x10^3/uL RBC 3.40 L (4.20-5.40) 10^6/uL Hgb 10.0 L (12.0-16.0) g/dL Hct 33.3 L (37.0-47.0) % MCV 97.9 (81.0-99.0) fL MCH 29.4 (27.0-31.0) pg MCHC 30.0 L (32.0-36.0) g/dL RDW 14.4 (12.0-15.0) % Plt Count 156 (130-450) 10^3/uL MPV 11.0 H (7.9-10.8) fL Neut # (Auto) 7.9 H (1.5-6.6) 10^3/uL Lymph # (Auto) 0.6 L (1.5-3.5) 10^3/uL [place] # (Auto) 1.2 H (0.0-1.0) 10^3/uL Eos # (Auto) 0.3 (0.0-0.7) 10^3/uL Baso # (Auto) 0.1 (0.0-0.1) 10^3/uL Absolute Nucleated RBC 0.00 x10^3/uL Nucleated RBC % 0.0 /100WBC VBG pH 7.281 L 7.303 L (7.31-7.41) Ionized Calcium 1.13 L 1.10 L (1.15-1.33) mmol/L Sodium 145 (135-145) mmol/L Potassium 4.3 (3.5-4.5) mmol/L Chloride 108 (101-111) mmol/L Carbon Dioxide 34 H (21-32) mmol/L Anion Gap 3.0 L (6-13) BUN 42 H (6-20) mg/dL Creatinine 1.8 H (0.6-1.3) mg/dL Estimated GFR (MDRD) 27 L (>89) Glucose 136 H (74-104) mg/dL POC Whole Bld Glucose 134 (70-100) mg/dL Lactic Acid 0.5 (0.5-2.2) mmol/L Calcium 8.3 L (8.5-10.3) mg/dL Phosphorus 1.9 L (2.5-5.0) mg/dL Magnesium 2.0 (1.7-2.3) mg/dL B-Natriuretic Peptide 163 H (5-100) pg/mL Total Intact PTH 544 H (12-88) pg/mL 05/31/24 05/31/24 Range/Units 19:50 18:03 WBC (4.8-10.8) x10^3/uL RBC (4.20-5.40) 10^6/uL Hgb (12.0-16.0) g/dL Hct (37.0-47.0) % MCV (81.0-99.0) fL MCH (27.0-31.0) pg MCHC (32.0-36.0) g/dL RDW (12.0-15.0) % Plt Count (130-450) 10^3/uL MPV (7.9-10.8) fL Neut # (Auto) (1.5-6.6) 10^3/uL Lymph # (Auto) (1.5-3.5) 10^3/uL [place] # (Auto) (0.0-1.0) 10^3/uL Eos # (Auto) (0.0-0.7) 10^3/uL Baso # (Auto) (0.0-0.1) 10^3/uL Absolute Nucleated RBC x10^3/uL Nucleated RBC % /100WBC VBG pH 7.257 L (7.31-7.41) Ionized Calcium 1.10 L (1.15-1.33) mmol/L Sodium (135-145) mmol/L Potassium 4.2 (3.5-4.5) mmol/L Chloride (101-111) mmol/L Carbon Dioxide (21-32) mmol/L Anion Gap (6-13) BUN (6-20) mg/dL Creatinine (0.6-1.3) mg/dL Estimated GFR (MDRD) (>89) Glucose (74-104) mg/dL POC Whole Bld Glucose (70-100) mg/dL Lactic Acid (0.5-2.2) mmol/L Calcium (8.5-10.3) mg/dL Phosphorus (2.5-5.0) mg/dL Magnesium (1.7-2.3) mg/dL B-Natriuretic Peptide (5-100) pg/mL Total Intact PTH (12-88) pg/mL Diagnostic Imaging Diagnostic Imaging Comments: CXR: IMPRESSION: Compared to prior radiograph on 05/28/2024, persistent [id number] left pleural effusion and interstitial prominence, likely pulmonary edema in the setting of cardiomegaly. Sepsis Event Note (H) Evaluation Current Stage of Sepsis: Septic shock Possible source of Sepsis: positive Pulmonary Sepsis Criteria Sepsis Criteria: Recorded Respiratory Rate greater than 20, SBP drop more than 40mHg, MAP less than 65 mmHg and SBP less than 90 mmHg Assessment/Plan Problem List (1) Septic shock: Impression: 83 yo F with pmhx of obesity hypoventillation syndrome (home O2 2 L during day, noc BiPAP), parox afib on DOAC, HFpEF, breast ca on letrozole, presenting with AMS, found to have CO2 retention and resp acidosis, septic shock due to suspected CAP. CXR showed interstitial prominence, small bilateral pleural effusions. Admitted to the ICU on pressor. 1. septic shock due to suspected bacterial pneumonia: Low grade fever overnight and pt continues to require low dose neorepi to keep MAP >65. Lactate 0.5. Wbc rising today. Nasal MRSA neg, covid neg on admit. CXR stable interstitial prominence- consider pulm edema. BNP not very high at 165. - switch back to iv abx - pip-tazo. no need for vanc given negative MRSA swab. - cont azithromycin for 5 day course - wean norepi as tolerated for MAP >65 - if clinical status deteriorates, increased pressor requirement, fever, consider broader iv abx and placing art line for accurate BP readings - sputum cx if she expectorates, f/u blood cx. Repeat blood cx if spikes another fever. 2. obesity hypoventilation syndrome, acute on chronic hypercarbic respiratory failure, morbid obesity: now comfortable on home o2 and Noc BiPAP settings. - cont NC O2 during day, BiPAP at night - wt loss counseling - resume ozempic on discharge - hold diuresis given low BP 3. parox afib, bradycardia: - cont apixaban - hold BB, monitor on tele - may hold carvedilol on discharge 4. macrocytic anemia: H/H stable. No gross blood loss. Consider marrow suppression from sepsis, h/o etoh abuse. B12 wnl. - f/u Fe studies, daily CBC 5. hypocalcemia, hypophosphatemia: ? poor po intake - replete prn - obtain PTH Dvt ppx: on DOAC Dispo plan and GOC: Came from home with ? 24 hr [employer] TE[employer]. Pending weaning off pressors. critical care time spent today: 35 minutes
[2024-06-02 05:19] LABS: BASOPHILS % (AUTO) 0.4 %; EOSINOPHILS # (AUTO) 0.3 10^3/uL (0.0-0.7); EOSINOPHILS % (AUTO) 4.6 %; HCT - HEMATOCRIT 31.4 % (37.0-47.0); HGB - HEMOGLOBIN 9.4 g/dL (12.0-16.0); LYMPHOCYTES # (AUTO) 1.1 10^3/uL (1.5-3.5); LYMPHOCYTES % (AUTO) 15.6 %; MEAN CORPUSCULAR HEMOGLOBIN 29.7 pg (27.0-31.0); MEAN CORPUSCULAR HGB CONC 29.9 g/dL (32.0-36.0); MEAN CORPUSCULAR VOLUME 99.1 fL (81.0-99.0); MEAN PLATELET VOLUME 11.6 fL (7.9-10.8); MONOCYTES # (AUTO) 0.8 10^3/uL (0.0-1.0); MONOCYTES % (AUTO) 11.8 %; NEUTROPHILS # (AUTO) 4.5 10^3/uL (1.5-6.6); NEUTROPHILS % (AUTO) 66.3 %; PLT - PLATELET COUNT 163 10^3/uL (130-450); RED BLOOD COUNT 3.17 10^6/uL (4.20-5.40); RED CELL DISTRIBUTION WIDTH 14.4 % (12.0-15.0); WHITE BLOOD COUNT 6.7 x10^3/uL (4.8-10.8)
[2024-06-02 05:20] LABS: VBG PH 7.276 (7.31-7.41)
[2024-06-02 05:21] LABS: CALCIUM, IONIZED 1.09 mmol/L (1.15-1.33)
[2024-06-02 05:33] LABS: CALCIUM 7.9 mg/dL (8.5-10.3); PHOSPHORUS 2.8 mg/dL (2.5-5.0); POTASSIUM 3.8 mmol/L (3.5-4.5)
[2024-06-02] MEDS: MIDODRINE 2.5 MG TABLET PO SCH (09:57)
[2024-06-02] MEDS: CALCIUM CARBONATE CHEW 500 MG TABLET PO SCH (12:51)
--- NOTE | 2024-06-02 16:50 | PROVIDER PROGRESS NOTE ---
Subjective Prog Note Date Prog Note Date: 06/02/24 Prog Note Time: 16:46 Subjective Subjective: No complaints. Good po intake. Dyspnea stable. Wants to go home. Used BiPAP overnight. Current Medications Current Medications Current Medications: Current Medications Generic Name Dose Route Start Last Admin Trade Name Freq PRN Reason Stop Dose Admin Acetaminophen 650 mg 05/28/24 12:49 06/01/24 15:31 Acetaminophen 325 Mg Tablet PO 650 mg QID PRN Administration Pain or Fever > 38C (100.4F) Albuterol/Ipratropium 3 ml 05/28/24 15:02 Ipratropium/Albuterol 3 Ml Neb INH RTQID PRN Shortness of Air/Wheezing Apixaban 5 mg 05/28/24 21:00 06/02/24 08:56 Apixaban 5 Mg Tablet PO 5 mg BID TAI Administration Atorvastatin Calcium 20 mg 05/28/24 21:00 06/01/24 21:20 Atorvastatin 10 Mg Tablet PO 20 mg QPM TAI Administration Azithromycin 250 mg 05/30/24 09:00 06/02/24 08:56 Azithromycin 250 Mg Tablet PO 250 mg DAILY TAI Administration Calcium Carbonate/Glycine 1,250 mg 06/02/24 13:00 06/02/24 16:18 Calcium Carbonate Chew 500 Mg Tablet PO 06/02/24 17:01 1,250 mg Q4H TAI Administration Protocol Cholecalciferol 5,000 unit 05/28/24 12:21 06/02/24 08:56 Cholecalciferol 5,000 Unit Capsule PO 5,000 unit DAILY TAI Administration Cyanocobalamin 1,000 mcg 05/29/24 09:00 06/02/24 08:56 Cyanocobalamin 500 Mcg Tablet PO 1,000 mcg DAILY TAI Administration Norepinephrine/Sodium Chloride 8 mg in 250 mls @ 15 mls/hr 05/30/24 17:00 06/02/24 10:09 Levophed 8 Mg/250-0.9% Nacl IV 0 mcg/min .[id number] TAI 0 mls/hr Titration Protocol 8 MCG/MIN Piperacillin Sod/Tazobactam 100 mls @ 25 mls/hr 06/01/24 08:00 06/02/24 16:16 Sod 4.5 gm/ Sodium Chloride IV 25 mls/hr Q8H TAI Administration Methocarbamol 375 mg 05/28/24 12:21 06/01/24 12:04 Methocarbamol 500 Mg Tablet PO 375 mg TID PRN Administration Spasms Midodrine 5 mg 06/02/24 10:00 06/02/24 13:16 Midodrine 2.5 Mg Tablet PO 5 mg TID TAI Administration Multi-Ingredient Ointment 1 applic 05/30/24 00:07 05/31/24 08:21 Zinc Oxide 20% Oint 30 Gm Tube TOP 1 applic PRN PRN Administration Skin Care Multivitamins/Minerals 1 tab 05/29/24 08:00 06/02/24 08:56 Multivitamin W/Minerals Tablet PO 1 tab DAILYWM TAI Administration Ondansetron HCl 4 mg 05/28/24 12:21 Ondansetron Odt 4 Mg Tablet PO Q8H PRN Nausea / Vomiting Pantoprazole Sodium 40 mg 05/28/24 21:00 06/02/24 08:57 Pantoprazole 40 Mg Tablet PO 40 mg BID TAI Administration Letrozole 2.5 Mg 1 each 05/29/24 09:00 06/02/24 13:22 Tablet PO 1 each DAILY TAI Administration Pregabalin 75 mg 05/28/24 14:00 06/02/24 13:16 Pregabalin 25 Mg Capsule PO 75 mg TID TAI Administration Sodium Chloride 20 ml 05/29/24 20:57 06/01/24 04:35 Sodium Chloride Flush 0.9% 10 Ml Syringe IVP 20 ml PRN PRN Administration After Blood Draw Sodium Chloride 10 ml 05/30/24 01:00 06/02/24 09:02 Sodium Chloride Flush 0.9% 10 Ml Syringe IVP 10 ml 0100,0900,1700 TAI Administration Trazodone HCl 100 mg 05/28/24 21:00 06/01/24 21:20 Trazodone 50 Mg Tablet PO 100 mg QPM TAI Administration Objective Vital Signs/Intake & Output Reviewed Vital Signs: Yes Vital Signs: Vital Signs Temp Pulse Resp BP BP Pulse Ox O2 Flow Rate 06/02/24 16:00 62 24 120/98 H 97 2 06/02/24 15:00 36.2 C L 61 17 126/65 99 2 06/02/24 14:00 36.1 C L 60 13 122/94 H 99 4 06/02/24 13:00 58 L 16 124/66 99 4 Intake & Output: Intake & Output 05/31/24 06/01/24 06/02/24 06/03/24 05:59 05:59 05:59 05:59 Intake Total 555 / 555 2139 / 2139 650 / 650 766 / 766 Output Total 2099 / 2099 1340 / 1340 1075 / 1075 800 / 800 Balance -1545 / -1545 799 / 799 -425 / -425 -34 / -34 Objective Comments/Other: Elderly woman sitting in bed, NAD, slcera anicteric, MMM Lungs: diminished at bases, no wheeze, nonlabored RRR, S1S2, 2+ LE edema Abd soft, NT, ND, BS+ Alert, answers questions appropriately, moves all extremities, normal tone, now tremor no clubbing or cyanosis day draining clear yellow urine CVL R neck c/d/i Lab Results 06/02/24 05:00 06/02/24 05:00 Other Labs: Lab Results x24hrs 06/02/24 Range/Units 05:00 WBC 6.7 (4.8-10.8) x10^3/uL RBC 3.17 L (4.20-5.40) 10^6/uL Hgb 9.4 L (12.0-16.0) g/dL Hct 31.4 L (37.0-47.0) % MCV 99.1 H (81.0-99.0) fL MCH 29.7 (27.0-31.0) pg MCHC 29.9 L (32.0-36.0) g/dL RDW 14.4 (12.0-15.0) % Plt Count 163 (130-450) 10^3/uL MPV 11.6 H (7.9-10.8) fL Neut # (Auto) 4.5 (1.5-6.6) 10^3/uL Lymph # (Auto) 1.1 L (1.5-3.5) 10^3/uL [place] # (Auto) 0.8 (0.0-1.0) 10^3/uL Eos # (Auto) 0.3 (0.0-0.7) 10^3/uL Baso # (Auto) 0.0 (0.0-0.1) 10^3/uL Absolute Nucleated RBC 0.00 x10^3/uL Nucleated RBC % 0.0 /100WBC VBG pH 7.276 L (7.31-7.41) Ionized Calcium 1.09 L (1.15-1.33) mmol/L Sodium 144 (135-145) mmol/L Potassium 3.8 (3.5-4.5) mmol/L Chloride 106 (101-111) mmol/L Carbon Dioxide 35 H (21-32) mmol/L Anion Gap 3.0 L (6-13) BUN 40 H (6-20) mg/dL Creatinine 2.0 H (0.6-1.3) mg/dL Estimated GFR (MDRD) 24 L (>89) Glucose 115 H (74-104) mg/dL Calcium 7.9 L (8.5-10.3) mg/dL Phosphorus 2.8 (2.5-5.0) mg/dL Magnesium 2.0 (1.7-2.3) mg/dL Sepsis Event Note (H) Evaluation Current Stage of Sepsis: Septic shock Possible source of Sepsis: positive Pulmonary Sepsis Criteria Sepsis Criteria: Recorded Respiratory Rate greater than 20, SBP drop more than 40mHg, MAP less than 65 mmHg and SBP less than 90 mmHg Assessment/Plan Problem List (1) Septic shock: Impression: 83 yo F with pmhx of obesity hypoventillation syndrome (home O2 2 L during day, noc BiPAP), parox afib on DOAC, HFpEF, breast ca on letrozole, presenting with AMS, found to have CO2 retention and resp acidosis, septic shock due to suspected CAP. CXR showed interstitial prominence, small bilateral pleural effusions. Admitted to the ICU on pressor. 1. septic shock due to suspected bacterial pneumonia: Pt remains nontoxic, improved symptoms. Afebrile, wbc trending down. unable to wean off norepi overnight but down to rate of 1. BNP not very high at 165. Volume overloaded on exam- LE edema. - pip-tazo- switch to po abx soon to complete 5-7 day course - cont azithromycin for 5 day course - wean norepi as tolerated for MAP >65 - start midodrine 5 mg po TID - sputum cx if she expectorates, f/u blood cx. Repeat blood cx if spikes another fever. - check am cortisol - VBG in am - d/c barb 2. obesity hypoventilation syndrome, acute on chronic hypercarbic respiratory failure, morbid obesity: now comfortable on home o2 and Noc BiPAP settings. - cont NC O2 during day, BiPAP at night - wt loss counseling - resume ozempic on discharge - hold diuresis given low BP 3. parox afib, bradycardia: - cont apixaban - hold BB, monitor on tele - may hold carvedilol on discharge 4. macrocytic anemia: H/H stable. No gross blood loss. Consider marrow suppression from sepsis, h/o etoh abuse. B12 wnl. - f/u Fe studies, daily CBC 5. hypocalcemia, hypophosphatemia: ? poor po intake. PTH elevated- appropriate response to hypocalcemia. - replete prn - obtain vit D 6. SARIKA: baseline Cr 0.9, stable now from admission. Suspect ATN from sepsis or hypoperfusion in setting of hypotension. Volume overloaded on exam- moderate. - ur lytes, FeNa - avoid nephrotoxins Dvt ppx: on DOAC Dispo plan and GOC: Came from home with ? 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 Pending weaning off pressors. critical care time spent today: 35 minutes
[2024-06-02 20:37] LABS: CALCIUM, IONIZED 1.06 mmol/L (1.15-1.33); VBG PH 7.234 (7.31-7.41)
[2024-06-02] MEDS: CALCIUM GLUC 1,000MG/50ML-NACL 1,000 MG/50 ML BAG IV ONE (22:15)
--- NOTE | 2024-06-03 00:55 | PROVIDER PROGRESS NOTE ---
Unit Assistant Note Unit Assistant Note Unit Assistant Note: RN paged " Pt is [id number] Full code admitted ICU for pneumonia, septic shock. Patient has been on very lose dose levophed for a couple days. Today at 10:00, the patient was weaned off and placed on midodrine. The patient was expected to discharge home tomorrow. Patient's BP dropped when she went to sleep despite 5mg midodrine before bed. Current BP 90/42, MAP 58, HR 52 (has been bradycardic through her stay), RR 12, O2 92% on her home BIPAP. Next midodrine is due at 06:00. Would you rather give an additional dose of midodrine now or have me restart the previous low dose of 2mcg levophed? Levophed is still on this patient's MAR if I need to restart it." A: hypotension P: NS bolus 500 ml. and recheck David Arenas DO [employer]
[2024-06-03] MEDS: SODIUM CHLORIDE 0.9% 500 ML IV ONE (01:10)
[2024-06-03 05:06] LABS: CALCIUM, IONIZED 1.05 mmol/L (1.15-1.33); VBG PH 7.258 (7.31-7.41)
[2024-06-03 05:07] LABS: VBG BASE EXCESS 1.9 mmol/L (-2 - +2); VBG HCO3 30.3 mmol/L (23-28); VBG OXYGEN SATURATION 97.2 % (60-80); VBG PCO2 69.3 mmHg (41-51); VBG PH 7.258 (7.31-7.41); VBG PO2 95.5 mmHg (25-47); VBG TOTAL CO2 32.4 mmol/L (24-29)
[2024-06-03 05:12] LABS: BASOPHILS % (AUTO) 0.6 %; EOSINOPHILS # (AUTO) 0.4 10^3/uL (0.0-0.7); HCT - HEMATOCRIT 31.5 % (37.0-47.0); HGB - HEMOGLOBIN 9.5 g/dL (12.0-16.0); LYMPHOCYTES # (AUTO) 1.2 10^3/uL (1.5-3.5); MEAN CORPUSCULAR HEMOGLOBIN 29.9 pg (27.0-31.0); MEAN CORPUSCULAR HGB CONC 30.2 g/dL (32.0-36.0); MEAN CORPUSCULAR VOLUME 99.1 fL (81.0-99.0); MEAN PLATELET VOLUME 11.1 fL (7.9-10.8); MONOCYTES # (AUTO) 0.7 10^3/uL (0.0-1.0); MONOCYTES % (AUTO) 9.7 %; NEUTROPHILS # (AUTO) 4.8 10^3/uL (1.5-6.6); NEUTROPHILS % (AUTO) 66.1 %; PLT - PLATELET COUNT 186 10^3/uL (130-450); RED BLOOD COUNT 3.18 10^6/uL (4.20-5.40); RED CELL DISTRIBUTION WIDTH 14.5 % (12.0-15.0); WHITE BLOOD COUNT 7.2 x10^3/uL (4.8-10.8)
[2024-06-03 05:26] LABS: MAGNESIUM 2.1 mg/dL (1.7-2.3); PHOSPHORUS 3.5 mg/dL (2.5-5.0)
[2024-06-03 05:42] LABS: CALCIUM 7.9 mg/dL (8.5-10.3); CREATININE 2.3 mg/dL (0.6-1.3)
[2024-06-03 06:01] LABS: FERRITIN 123.5 ng/mL (11.0-306.8)
[2024-06-03] MEDS: FUROSEMIDE 40 MG TABLET PO SCH (09:08)
[2024-06-03] MEDS: MIDODRINE 2.5 MG TABLET PO SCH (16:27)
[2024-06-03] MEDS: AMOX/CLAV 500 MG/125 MG TABLET PO SCH (17:21)
--- NOTE | 2024-06-03 18:18 | PROVIDER PROGRESS NOTE ---
Subjective Prog Note Date Prog Note Date: 06/03/24 Prog Note Time: 18:13 Subjective Subjective: BP down to mid 80s systolic overnight, received NS bolus 500 ml. Remained off pressors. Pt feels fine today. Good po intake. No CP or SOB. Current Medications Current Medications Current Medications: Current Medications Generic Name Dose Route Start Last Admin Trade Name Freq PRN Reason Stop Dose Admin Acetaminophen 650 mg 05/28/24 12:49 06/01/24 15:31 Acetaminophen 325 Mg Tablet PO 650 mg QID PRN Administration Pain or Fever > 38C (100.4F) Albuterol/Ipratropium 3 ml 05/28/24 15:02 Ipratropium/Albuterol 3 Ml Neb INH RTQID PRN Shortness of Air/Wheezing Amoxicillin/Clavulanate Potassium 1 tab 06/03/24 18:00 06/03/24 17:21 Amox/Clav 500 Mg/125 Mg Tablet PO 06/06/24 23:59 1 tab BID TAI Administration Apixaban 5 mg 05/28/24 21:00 06/03/24 09:05 Apixaban 5 Mg Tablet PO 5 mg BID TAI Administration Atorvastatin Calcium 20 mg 05/28/24 21:00 06/02/24 21:19 Atorvastatin 10 Mg Tablet PO 20 mg QPM TAI Administration Cholecalciferol 5,000 unit 05/28/24 12:21 06/03/24 09:05 Cholecalciferol 5,000 Unit Capsule PO 5,000 unit DAILY TAI Administration Cyanocobalamin 1,000 mcg 05/29/24 09:00 06/03/24 09:04 Cyanocobalamin 500 Mcg Tablet PO 1,000 mcg DAILY TAI Administration Furosemide 40 mg 06/03/24 09:00 06/03/24 09:08 Furosemide 40 Mg Tablet PO 40 mg DAILY TAI Administration Methocarbamol 375 mg 05/28/24 12:21 06/01/24 12:04 Methocarbamol 500 Mg Tablet PO 375 mg TID PRN Administration Spasms Midodrine 10 mg 06/03/24 14:00 06/03/24 16:27 Midodrine 2.5 Mg Tablet PO 10 mg TID TAI Administration Multi-Ingredient Ointment 1 applic 05/30/24 00:07 05/31/24 08:21 Zinc Oxide 20% Oint 30 Gm Tube TOP 1 applic PRN PRN Administration Skin Care Multivitamins/Minerals 1 tab 05/29/24 08:00 06/03/24 09:05 Multivitamin W/Minerals Tablet PO 1 tab DAILYWM TAI Administration Ondansetron HCl 4 mg 05/28/24 12:21 Ondansetron Odt 4 Mg Tablet PO Q8H PRN Nausea / Vomiting Pantoprazole Sodium 40 mg 05/28/24 21:00 06/03/24 09:04 Pantoprazole 40 Mg Tablet PO 40 mg BID TAI Administration Letrozole 2.5 Mg 1 each 05/29/24 09:00 06/03/24 09:17 Tablet PO 1 each DAILY TAI Administration Pregabalin 75 mg 05/28/24 14:00 06/03/24 16:27 Pregabalin 25 Mg Capsule PO 75 mg TID TAI Administration Sodium Chloride 20 ml 05/29/24 20:57 06/01/24 04:35 Sodium Chloride Flush 0.9% 10 Ml Syringe IVP 20 ml PRN PRN Administration After Blood Draw Sodium Chloride 10 ml 05/30/24 01:00 06/03/24 16:27 Sodium Chloride Flush 0.9% 10 Ml Syringe IVP 10 ml 0100,0900,1700 TAI Administration Trazodone HCl 100 mg 05/28/24 21:00 06/02/24 21:19 Trazodone 50 Mg Tablet PO 100 mg QPM TAI Administration Objective Vital Signs/Intake & Output Reviewed Vital Signs: Yes Vital Signs: Vital Signs Temp Pulse Resp BP Pulse Ox O2 Flow Rate 06/03/24 18:00 62 20 146/62 H 91 L 2 06/03/24 18:00 63 19 146/82 H 90 L 2 06/03/24 17:00 67 24 155/70 H 92 2 06/03/24 16:00 36.5 C 58 L 21 164/67 H 91 L 2 06/03/24 15:00 55 L 19 146/65 H 97 2 Intake & Output: Intake & Output 06/01/24 06/02/24 06/03/24 06/04/24 05:59 05:59 05:59 05:59 Intake Total 2139 / 2139 650 / 650 2076 / 2076 2741 / 2741 Output Total 1340 / 1340 1075 / 1075 1456 / 1456 633 / 633 Balance 799 / 799 -425 / -425 620 / 620 2107 / 2107 Objective Comments/Other: Elderly woman sitting in bed, NAD, slcera anicteric, MMM Lungs: diminished at bases, no wheeze, nonlabored RRR, S1S2, 2+ LE edema Abd soft, NT, ND, BS+ Alert, answers questions appropriately, moves all extremities, normal tone, now tremor no clubbing or cyanosis day draining clear yellow urine CVL R neck c/d/i Lab Results 06/03/24 04:45 06/03/24 04:45 Other Labs: Lab Results x24hrs 06/03/24 06/03/24 06/02/24 Range/Units 04:45 04:45 20:00 WBC 7.2 (4.8-10.8) x10^3/uL RBC 3.18 L (4.20-5.40) 10^6/uL Hgb 9.5 L (12.0-16.0) g/dL Hct 31.5 L (37.0-47.0) % MCV 99.1 H (81.0-99.0) fL MCH 29.9 (27.0-31.0) pg MCHC 30.2 L (32.0-36.0) g/dL RDW 14.5 (12.0-15.0) % Plt Count 186 (130-450) 10^3/uL MPV 11.1 H (7.9-10.8) fL Neut # (Auto) 4.8 (1.5-6.6) 10^3/uL Lymph # (Auto) 1.2 L (1.5-3.5) 10^3/uL [place] # (Auto) 0.7 (0.0-1.0) 10^3/uL Eos # (Auto) 0.4 (0.0-0.7) 10^3/uL Baso # (Auto) 0.0 (0.0-0.1) 10^3/uL Absolute Nucleated RBC 0.00 x10^3/uL Nucleated RBC % 0.0 /100WBC VBG pH 7.258 L 7.258 L 7.234 L (7.31-7.41) VBG pCO2 69.3 H (41-51) mmHg VBG pO2 95.5 H (25-47) mmHg VBG HCO3 30.3 H (23-28) mmol/L VBG Total CO2 32.4 H (24-29) mmol/L VBG O2 Saturation 97.2 H (60-80) % VBG Base Excess 1.9 (-2 - +2) mmol/L Ionized Calcium 1.05 L 1.06 L (1.15-1.33) mmol/L Sodium 142 (135-145) mmol/L Potassium 4.0 (3.5-4.5) mmol/L Chloride 106 (101-111) mmol/L Carbon Dioxide 32 (21-32) mmol/L Anion Gap 4.0 L (6-13) BUN 40 H (6-20) mg/dL Creatinine 2.3 H (0.6-1.3) mg/dL Estimated GFR (MDRD) 20 L (>89) Glucose 100 (74-104) mg/dL Calcium 7.9 L (8.5-10.3) mg/dL Phosphorus 3.5 (2.5-5.0) mg/dL Magnesium 2.1 (1.7-2.3) mg/dL Iron 40 L (50-212) ug/dL TIBC 217 L (250-450) ug/dL % Saturation 18 L (20-50) % Transferrin 155 L (203-362) mg/dL Ferritin 123.5 (11.0-306.8) ng/mL Cortisol AM Sample 13.1 ug/dL Urine Creatinine mg/dL Urine Sodium 06/02/24 06/02/24 Range/Units 18:23 18:11 WBC (4.8-10.8) x10^3/uL RBC (4.20-5.40) 10^6/uL Hgb (12.0-16.0) g/dL Hct (37.0-47.0) % MCV (81.0-99.0) fL MCH (27.0-31.0) pg MCHC (32.0-36.0) g/dL RDW (12.0-15.0) % Plt Count (130-450) 10^3/uL MPV (7.9-10.8) fL Neut # (Auto) (1.5-6.6) 10^3/uL Lymph # (Auto) (1.5-3.5) 10^3/uL [place] # (Auto) (0.0-1.0) 10^3/uL Eos # (Auto) (0.0-0.7) 10^3/uL Baso # (Auto) (0.0-0.1) 10^3/uL Absolute Nucleated RBC x10^3/uL Nucleated RBC % /100WBC VBG pH (7.31-7.41) VBG pCO2 (41-51) mmHg VBG pO2 (25-47) mmHg VBG HCO3 (23-28) mmol/L VBG Total CO2 (24-29) mmol/L VBG O2 Saturation (60-80) % VBG Base Excess (-2 - +2) mmol/L Ionized Calcium (1.15-1.33) mmol/L Sodium (135-145) mmol/L Potassium (3.5-4.5) mmol/L Chloride (101-111) mmol/L Carbon Dioxide (21-32) mmol/L Anion Gap (6-13) BUN (6-20) mg/dL Creatinine (0.6-1.3) mg/dL Estimated GFR (MDRD) (>89) Glucose (74-104) mg/dL Calcium (8.5-10.3) mg/dL Phosphorus (2.5-5.0) mg/dL Magnesium (1.7-2.3) mg/dL Iron (50-212) ug/dL TIBC (250-450) ug/dL % Saturation (20-50) % Transferrin (203-362) mg/dL Ferritin (11.0-306.8) ng/mL Cortisol AM Sample ug/dL Urine Creatinine 40.7 mg/dL Urine Sodium 17.4 Cancelled Sepsis Event Note (H) Evaluation Current Stage of Sepsis: Septic shock Possible source of Sepsis: positive Pulmonary Sepsis Criteria Sepsis Criteria: Recorded Respiratory Rate greater than 20, SBP drop more than 40mHg, MAP less than 65 mmHg and SBP less than 90 mmHg Assessment/Plan Problem List (1) Septic shock: Impression: 83 yo F with pmhx of obesity hypoventillation syndrome (home O2 2 L during day, noc BiPAP), parox afib on DOAC, HFpEF, breast ca on letrozole, presenting with AMS, found to have CO2 retention and resp acidosis, septic shock due to suspected CAP. CXR showed interstitial prominence, small bilateral pleural effusions. Admitted to the ICU on pressor. 1. septic shock due to suspected bacterial pneumonia: Remains off pressors. BP low overnight, responded to iv fluids. Afebrile, appears well. Am cortisol wnl. - switch to augmentin to complete 10 day course, day 7 - finished 5 days azithromycin - titrate up midodrine to 10 mg po TID - d/c barb, d/c CVL 2. obesity hypoventilation syndrome, acute on chronic hypercarbic respiratory failure, morbid obesity: now comfortable on home o2 and Noc BiPAP settings. VBG shows CO2 69, improved from 80s on admission. - cont NC O2 during day, BiPAP at night - wt loss counseling - resume ozempic on discharge 3. parox afib, bradycardia: - cont apixaban - hold BB, monitor on tele - may hold carvedilol on discharge 4. acute on chronic HFpEF: No ECHO on file here. Pulm edema on CXR, BNP 160s. Legs edematous. - lasix 40 po q day - holding BB. May gradually reintroduce GDMT if BP allows- likely as outpt. - obtain TTE 5. macrocytic anemia: Consider marrow suppression from sepsis, h/o etoh abuse. B12 wnl. Fe sat 18%, ferritin 124- borderline for iron deficiency. - monitor, consider Fe supp 6. SARIKA: baseline Cr 0.9, stable now from admission. Suspect ATN from sepsis or hypoperfusion in setting of hypotension. Volume overloaded on exam- moderate. - ur lytes, FeNa - avoid nephrotoxins Dvt ppx: on DOAC Dispo plan and GOC: Came from home with ? 24 hr REPRESENTATIVE. [place] d/c home tomorrow if she continue to do well and BP remains stable.
[2024-06-04 05:20] LABS: CALCIUM, IONIZED 1.07 mmol/L (1.15-1.33); VBG PH 7.271 (7.31-7.41)
[2024-06-04 05:28] LABS: MAGNESIUM 2.1 mg/dL (1.7-2.3)
[2024-06-04 05:33] LABS: PHOSPHORUS 3.4 mg/dL (2.5-5.0)
[2024-06-04 05:34] LABS: CALCIUM 7.8 mg/dL (8.5-10.3); CREATININE 2.2 mg/dL (0.6-1.3)
[2024-06-04] MEDS: MIDODRINE 10 MG TABLET PO SCH (08:38)
[2024-06-04 15:20] VITALS: O2SAT 94
--- NOTE | 2024-06-04 19:04 | Discharge Summary ---
Discharge Summary Admit Date: 05/28/24 Discharge Date: 06/04/24 Discharging Provider: Sanchez Kraus Primary Care Provider: Miryam Potts Code Status: Attempt Resuscitation DIAGNOSES Admission Diagnoses: Acute metabolic encephalopathy Septic shock due to suspected bacterial pneumonia Obesity hypoventilation syndrome Respiratory acidosis Chronic respiratory failure requiring use of nocturnal bilevel positive airway pressure (BPAP) by mask Bradycardia Paroxysmal atrial fibrillation Morbid obesity 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 Breast cancer Macrocytic anemia Plan: Likely multifactorial due to CO2 retention as well as possible septic shock. For CO2 retention in setting of obesity hypoventilation syndrome - continue BiPAP. Will recheck VBG after a few hours of BiPAP use. Patient is a DNI. May also have a component of septic shock with hypotension, bradycardia, fever and AMS. Continue Zosyn and vancomycin at this time. Discussed with ED physician - will require closer monitoring in the ICU for BIPAP use and for Levophed use. (2) Septic shock: Plan: Patient with hypotension currently requiring Levophed, as well as one-time fever en route. MRSA swab ordered, pending. Blood cultures ordered x 2. Continue vancomycin and Zosyn at this time. Will give gentle IV fluid rehydration as well; patient does have history of heart failure and mild pleural effusions at this time. (3) Macrocytic anemia: Plan: Likely due to former history of chronic alcohol use. Vitamin B12 ordered, pending. (4) Respiratory acidosis: Plan: Due to CO2 retention in the setting of obesity hypoventilation syndrome. Continue BiPAP use at this time. Will recheck VBG in a few hours. Encouraged BiPAP use at home during any sleeping hours including naps. (5) Chronic respiratory failure requiring use of nocturnal bilevel positive airway pressure (BPAP) by mask: Plan: See above. (6) Bradycardia: Plan: Bradycardia of 47 on admission. Patient on Coreg at home. Given 1 dose of glucagon in the emergency room. Continue to monitor. (7) Paroxysmal atrial fibrillation: Plan: Continue Eliquis at this time. Coreg held, patient was bradycardic on admission. (8) Morbid obesity: Plan: Patient on Ozempic as an outpatient. Per palliative care notes, is motivated to do lifestyle changes for weight loss. (9) 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: Plan: Echocardiogram from 01/06/2023 reviewedpatient has left ventricular systolic function at the lower limits of normal with EF of 50 to 55%., Difficult to assess diastolic impairment due to presence of arrhythmia at the time, atrial fibrillation. (10) Breast cancer: Plan: Follows up regularly with Dr. Boyd. Last appointment was 03/08/2024, and sees them every 3 months. Has right breast cancer, triple negative. Treated with lumpectomy/radiation followed by adjuvant AC/T in 2005. Currently not a surgical candidate due to multiple comorbidities. Started letrozole in 06/2023 with complete chemical response. Qualifiers: Breast location: unspecified site of breast Estrogen receptor status: n egative Laterality: right Patient sex: female Qualified Code(s): C50.911 - Malignant neoplasm of unspecified site of right female breast; Z17.1 - Estrogen receptor negative status [ER-] (11) Morbid obesity with BMI of 45.0-49.9, adult: Plan: Currently on Ozempic as an outpatient for weight loss. Continue to encourage lifestyle modifications. (12) Obesity hypoventilation syndrome: Plan: Management as above. Discharge Diagnoses with Status of Each Condition: Acute metabolic encephalopathy Septic shock due to suspected bacterial pneumonia Obesity hypoventilation syndrome Respiratory acidosis Chronic respiratory failure requiring use of nocturnal bilevel positive airway pressure (BPAP) by mask Bradycardia Paroxysmal atrial fibrillation Morbid obesity 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 Breast cancer Macrocytic anemia hypocalcemia hypophosphatemia HPI History of Present Illness: 83-year-old female with a history of triple negative right breast cancer currently on letrozole, heart failure with mildly reduced ejection fraction of 40 to 45% and diastolic impairment, obesity hypoventilation syndrome who presented after caregiver found her to be generally weak, as well as lethargic this morning. Her caregiver was not present at bedside, so further details cannot be elicited. Per documentation, she is essentially bedbound at baseline. She has had multiple admissions for lethargy, as well as altered mentation like this one. In the emergency room, she was found to be hypotensive with blood pressure in the 80s over 40s range, heart rate in the low 50s. Per EMS documentation, she did have a fever of 100.4 en route. Lab work showed no leukocytosis, hemoglobin of 10.2, around her baseline. An ABG was done which showed a pH of 7.22, as well as a CO2 of 84. She was placed on BiPAP at this time. Her lactic acid was within normal limits of 0.3. She had a mild SARIKA of 1.9, with baseline creatinine of 0.9. Her glucose was within normal limits. Her BNP was 160. Her UA was negative, and a rapid. Viral panel including COVID-19 was negative as well. Imaging was reviewedchest x-ray does show continued cardiomegaly with interstitial infiltrates, as well as some mild pleural effusions. She was started on Levophed for hypotension. She was given glucagon for possible beta- bro overdose in setting of Coreg use at home and ongoing bradycardia. She was started on broad-spectrum antibiotics for possible septic shock with Zosyn and vancomycin. Discussed with emergency room physician, plan is to transfer her to the ICU for further management. HOSPITAL COURSE Hospital Course: 1. Acute metabolic encephalopathy: likely multifactorial due to CO2 retention and sepsis. She was treated with BiPAP at night and with naps per home regimen. CO2 trended down. Mental status returned to baseline quickly and remained stable for several days prior to discharge. 2. Septic shock due to suspected bacterial pneumonia: The pt was admitted to the ICU for pressors. Only obvious possible source for infection was pneumonia. CXR with interstitial prominence. nasal MRSA neg. The pt was treated with broad spectrum antibiotics, initially iv and then transitioned to po. She spiked a low grade fever on hospital day 4 and continued to required low dose norepinephrine for several days. Antibiotics were escalated at time of fever to [id number]. Pt improved clinically over the course of the next couple day and was eventually switch to augmentin to complete a 10 day total course. Due to inabilty to wean off norepinephrine, she was started on midodrine. With this medication, pressor was stopped and BP remained normal for 24 hrs prior to discharge. Would follow BP in outpt setting in the next week and wean off midodrine as tolerated. Home antihypertensives were held and may need to be resumed outpt. 3. Obesity hypoventilation syndrome, Respiratory acidosis, acute on Chronic respiratory failure requiring use of nocturnal bilevel positive airway pressure (BPAP) by mask: PaCO2 80s on admission. CO2 retention resolved with BIPAP. She was continued on her home setting of 2 L NC during day and BiPAP at night. She will continue ozempic on discharge and was counseled on wt loss. 4. Bradycardia: Bradycardia of 47 on admission. Patient on Coreg at home. Given 1 dose of glucagon in the emergency room. HR remained in 50s much of the time throughout her stay off BB. Continue to hold Coreg, likely indefinitely. 5. Paroxysmal atrial fibrillation: The pt was continued on her home apixaban. 6. 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: Echocardiogram from 01/06/2023 reviewedpatient has left ventricular systolic function at the lower limits of normal with EF of 50 to 55%., Difficult to assess diastolic impairment due to presence of arrhythmia at the time, atrial fibrillation. Legs were edematous and CXR showed pulmonary edema. GDMT and diuretics were held for several days when she was in septic shock. Furosemide was resumed and titrated back to home dose prior to discharge. 7. SARIKA: baseline Cr 0.9. Cr was 1.9 on admission and remained near that level throughout her stay. Suspect ATN from sepsis or hypoperfusion in setting of hypotension. Would continue to follow outpt to monitor for renal recovery. Avoid nephrotoxins. 8. breast cancer: Follows up regularly with Dr. Boyd. Last appointment was 03/08/2024, and sees them every 3 months. Has right breast cancer, triple negative. Treated with lumpectomy/radiation followed by adjuvant AC/T in 2005. Currently not a surgical candidate due to multiple comorbidities. Started letrozole in 06/2023 with complete chemical response ALLERGIES Allergies Allergy/AdvReac Type Severity Reaction Status Date / Time No Known Drug Allergies Allergy Verified 05/28/24 08:24 MEDICATIONS Ambulatory Orders Medication Instructions Recorded Confirmed omeprazole 20 mg capsule,delayed 20 mg PO BID 04/27/14 05/28/24 release atorvastatin 20 mg tablet 20 mg PO QPM 04/03/22 05/28/24 apixaban 5 mg tablet (Eliquis) 5 mg PO BID 06/19/23 05/28/24 letrozole 2.5 mg tablet 2.5 mg PO DAILY 08/25/23 05/28/24 sennosides 8.6 mg tablet (Senna 8.6 - 25.8 mg PO DAILY PRN 11/03/23 05/29/24 Lax) Constipation trazodone 50 mg tablet 100 mg PO QPM 01/06/24 05/28/24 [id number]-[id number] 1 tab PO DAILYWM #100 tabs 01/08/24 05/28/24 fumarate 19 mg-folic acid 400 mcg tablet (Therapeutic-M) potassium chloride 10 mEq 20 meq (2 x 10 mEq) PO QDAY #180 05/13/24 05/28/24 capsule,extended release caps pregabalin 75 mg capsule 75 mg PO TID 05/13/24 05/28/24 acetaminophen 650 mg 650 mg PO QID PRN fever or pain 05/22/24 05/28/24 tablet,extended release acetylcarnitine HCl 250 mg capsule 50 mg PO QDAY 05/22/24 05/28/24 cholecalciferol (vitamin D3) 125 125 mcg PO QDAY 05/22/24 05/28/24 mcg (5,000 unit) capsule clobetasol 0.05 % shampoo topical 05/22/24 05/22/24 furosemide 40 mg tablet 40 mg PO BID 05/22/24 05/28/24 glucosamine-chondroitin 500 mg-400 1 cap PO BID 05/22/24 05/29/24 mg capsule ipratropium 0.5 mg-albuterol 3 mg 3 ml inhalation Q4H PRN shortness 05/22/24 05/29/24 (2.5 mg base)/3 mL nebulization of breath soln mecobalamin (vitamin B12) 1,000 1,000 mcg PO QDAY 05/22/24 05/28/24 mcg chewable tablet (B12 Active) methocarbamol 750 mg tablet 375 mg PO TID PRN Spasms 05/22/24 05/28/24 nystatin 100,000 unit/gram topical 1 applic topical BID PRN rash 05/22/24 05/29/24 cream ondansetron HCl 4 mg tablet 4 mg PO Q8H PRN nausea and vomiting 05/22/24 05/29/24 polyethylene glycol 3350 17 17 g PO BID PRN constipation 05/22/24 05/29/24 gram/dose oral powder (Miralax) semaglutide (weight loss) 0.25 0.25 mg subcut QWEEK 05/22/24 05/29/24 mg/0.5 mL subcutaneous pen injector (Shashi) amoxicillin 500 mg-potassium 1 tab PO BID #5 tabs 06/04/24 clavulanate 125 mg tablet midodrine 10 mg tablet 10 mg PO TIDWM #42 tabs 06/04/24 PHYSICAL EXAM AT DISCHARGE Physical Exam Other/Comments: Elderly woman sitting in bed, NAD, slcera anicteric, MMM Lungs: diminished at bases, no wheeze, nonlabored RRR, S1S2, 2+ LE edema Abd soft, NT, ND, BS+ Alert, answers questions appropriately, moves all extremities, normal tone, now tremor no clubbing or cyanosis day draining clear yellow urine LABS 06/03/24 04:45 06/04/24 04:50 DIAGNOSTIC IMAGING Diagnostic Imaging Results Comments: CXR, 05/28/24: IMPRESSION: Cardiomegaly with interstitial prominence and likely small bilateral pleural effusions. CHF is suspected. CXR, 06/01/24: IMPRESSION: Compared to prior radiograph on 05/28/2024, persistent [id number] left pleural effusion and interstitial prominence, likely pulmonary edema in the setting of cardiomegaly. SEPSIS Current Stage of Sepsis: Septic shock Possible source of Sepsis: Pulmonary Sepsis Criteria: Recorded Respiratory Rate greater than 20, SBP drop more than 40mHg, MAP less than 65 mmHg and SBP less than 90 mmHg TIME SPENT Time Spent in Discharge (Minutes): 25 Discharge Plan Discharge Patient Disposition: 01 Home, Self Care Condition: Stable Medically Cleared Date:: 06/04/24 Prescriptions: New amoxicillin-pot clavulanate 500-125 mg Tablet 1 tab PO BID Qty: 5 0RF midodrine 10 mg Tablet 10 mg PO TIDWM Qty: 42 0RF Continued potassium chloride 10 mEq capsule, extended release 20 meq PO QDAY Qty: 180 3RF Rx Instructions: Take with furosemide daily pregabalin 75 mg capsule 75 mg PO TID omeprazole 20 MG capsule,delayed release(DR/EC) 20 mg PO BID atorvastatin 20 MG tablet 20 mg PO QPM Patient Comments: TAKE 1 TABLET BY MOUTH ONCE DAILY IN THE EVENING methocarbamol 750 mg tablet 375 mg PO TID PRN (Reason: Spasms) Rx Instructions: Max 3 doses daily Eliquis 5 MG tablet 5 mg PO BID letrozole 2.5 MG tablet 2.5 mg PO DAILY sennosides [Senna Lax] 8.6 MG tablet 8.6 - 25.8 mg PO DAILY PRN (Reason: Constipation) furosemide 40 mg tablet 40 mg PO BID Rx Instructions: Give in AM and noon trazodone 50 MG tablet 100 mg PO QPM Therapeutic-M 1 TAB tablet 1 tab PO DAILYWM Qty: 100 0RF clobetasol 0.05 % shampoo topical ipratropium-albuterol 0.5 mg-3 mg(2.5 mg base)/3 mL solution for nebulization 3 ml inhalation Q4H PRN (Reason: shortness of breath) Rx Instructions: For wheezing or SOB Wegovy 0.25 mg/0.5 mL pen injector 0.25 mg subcut QWEEK Rx Instructions: administer weeks 1 through 4 of therapy ondansetron HCl 4 mg tablet 4 mg PO Q8H PRN (Reason: nausea and vomiting) mecobalamin (vitamin B12) [B12 Active] 1,000 mcg tablet,chewable 1,000 mcg PO QDAY acetaminophen 650 mg tablet extended release 650 mg PO QID PRN (Reason: fever or pain) Rx Instructions: Max 3250 mg daily cholecalciferol (vitamin D3) 125 mcg (5,000 unit) capsule 125 mcg PO QDAY nystatin 100,000 unit/gram cream 1 applic topical BID PRN (Reason: rash) Rx Instructions: Apply to affected area acetylcarnitine HCl 250 mg capsule 50 mg PO QDAY glucosamine-chondroitin 500-400 mg capsule 1 cap PO BID Rx Instructions: give with meal/snack polyethylene glycol 3350 [Miralax] 17 gram/dose powder 17 g PO BID PRN (Reason: constipation) Discontinued losartan 25 MG tablet 25 mg PO QPM Patient Comments: Take 1 tablet by mouth once a day at bedtime carvedilol 3.125 mg tablet 3.125 mg PO BID Rx Instructions: must administer with a meal/food Activity Restrictions: Activity as Tolerated Diet: Cardiac Plan of Treatment: Contact your primary care provider or return to the hospital if you have difficulty breathing, chest pain, lightheadedness, fainting, low blood pressure, palpitations, bleeding, confusion, lethargy, or for any other concerns. Finish the entire course of antibiotics for your pneumonia. It is very important you continue using your CPAP machine every night while sleeping. We have adjusted some of your medications due to low blood pressure and slow heart rate- stop taking carvedilol and losartan for now. Your primary care provider may restart some medications if your blood pressure normalizes in the coming weeks. You were started on a medication called midodrine for your low blood pressure. Please have your blood pressure checked within 1 week and discuss the result with your primary care provider. Ideally, this medication will be weaned off over the coming weeks and should not be a technician terminal and repeater medication. Print Language: Romansh Patient Instructions: Pneumonia, Heart Failure Dc Follow-up Care: Miryam Potts PA-C [Provider Admit Priv/Credential] - 1 Week (Call to make an appointment for within 1 week. )
--- NOTE | 2024-06-04 19:33 | Discharge Summary ---
Discharge Summary Admit Date: 05/28/24 Discharge Date: 06/04/24 Discharging Provider: Sanchez Kraus Primary Care Provider: Miryam Potts Code Status: Attempt Resuscitation DIAGNOSES Admission Diagnoses: Acute metabolic encephalopathy Septic shock due to suspected bacterial pneumonia Obesity hypoventilation syndrome Respiratory acidosis Chronic respiratory failure requiring use of nocturnal bilevel positive airway pressure (BPAP) by mask Bradycardia Paroxysmal atrial fibrillation Morbid obesity 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 Breast cancer Macrocytic anemia Discharge Diagnoses with Status of Each Condition: Acute metabolic encephalopathy Septic shock due to suspected bacterial pneumonia Obesity hypoventilation syndrome Respiratory acidosis Chronic respiratory failure requiring use of nocturnal bilevel positive airway pressure (BPAP) by mask Bradycardia Paroxysmal atrial fibrillation Morbid obesity 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 Breast cancer Macrocytic anemia hypocalcemia hypophosphatemia HPI History of Present Illness: 83-year-old female with a history of triple negative right breast cancer currently on letrozole, heart failure with mildly reduced ejection fraction of 40 to 45% and diastolic impairment, obesity hypoventilation syndrome who presented after caregiver found her to be generally weak, as well as lethargic this morning. Her caregiver was not present at bedside, so further details cannot be elicited. Per documentation, she is essentially bedbound at baseline. She has had multiple admissions for lethargy, as well as altered mentation like this one. In the emergency room, she was found to be hypotensive with blood pressure in the 80s over 40s range, heart rate in the low 50s. Per EMS documentation, she did have a fever of 100.4 en route. Lab work showed no leukocytosis, hemoglobin of 10.2, around her baseline. An ABG was done which showed a pH of 7.22, as well as a CO2 of 84. She was placed on BiPAP at this time. Her lactic acid was within normal limits of 0.3. She had a mild SARIKA of 1.9, with baseline creatinine of 0.9. Her glucose was within normal limits. Her BNP was 160. Her UA was negative, and a rapid. Viral panel including COVID-19 was negative as well. Imaging was reviewedchest x-ray does show continued cardiomegaly with interstitial infiltrates, as well as some mild pleural effusions. She was started on Levophed for hypotension. She was given glucagon for possible beta- bro overdose in setting of Coreg use at home and ongoing bradycardia. She was started on broad-spectrum antibiotics for possible septic shock with Zosyn and vancomycin. Discussed with emergency room physician, plan is to transfer her to the ICU for further management. HOSPITAL COURSE Hospital Course: 1. Acute metabolic encephalopathy: likely multifactorial due to CO2 retention and sepsis. She was treated with BiPAP at night and with naps per home regimen. CO2 trended down. Mental status returned to baseline quickly and remained stable for several days prior to discharge. 2. Septic shock due to suspected bacterial pneumonia: The pt was admitted to the ICU for pressors. Only obvious possible source for infection was pneumonia. CXR with interstitial prominence. nasal MRSA neg. The pt was treated with broad spectrum antibiotics, initially iv and then transitioned to po. She spiked a low grade fever on hospital day 4 and continued to required low dose norepinephrine for several days. Antibiotics were escalated at time of fever to pip-tazo. Pt improved clinically over the course of the next couple day and was eventually switch to augmentin to complete a 10 day total course. Due to inabilty to wean off norepinephrine, she was started on midodrine. With this medication, pressor was stopped and BP remained normal for 24 hrs prior to discharge. Would follow BP in outpt setting in the next week and wean off midodrine as tolerated. Home antihypertensives were held and may need to be resumed outpt. 3. Obesity hypoventilation syndrome, Respiratory acidosis, acute on Chronic respiratory failure requiring use of nocturnal bilevel positive airway pressure (BPAP) by mask: PaCO2 80s on admission. CO2 retention resolved with BIPAP. She was continued on her home setting of 2 L NC during day and BiPAP at night. She will continue ozempic on discharge and was counseled on wt loss. 4. Bradycardia: Bradycardia of 47 on admission. Patient on Coreg at home. Given 1 dose of glucagon in the emergency room. HR remained in 50s much of the time throughout her stay off BB. Continue to hold Coreg, likely indefinitely. 5. Paroxysmal atrial fibrillation: The pt was continued on her home apixaban. 6. 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: Echocardiogram from 01/06/2023 reviewedpatient has left ventricular systolic function at the lower limits of normal with EF of 50 to 55%., Difficult to assess diastolic impairment due to presence of arrhythmia at the time, atrial fibrillation. Legs were edematous and CXR showed pulmonary edema. GDMT and diuretics were held for several days when she was in septic shock. Furosemide was resumed and titrated back to home dose prior to discharge. 7. SARIKA: baseline Cr 0.9. Cr was 1.9 on admission and remained near that level throughout her stay. Suspect ATN from sepsis or hypoperfusion in setting of hypotension. Would continue to follow outpt to monitor for renal recovery. Avoid nephrotoxins. 8. breast cancer: Follows up regularly with Dr. Boyd. Last appointment was 03/08/2024, and sees them every 3 months. Has right breast cancer, triple negative. Treated with lumpectomy/radiation followed by adjuvant AC/T in 2005. Currently not a surgical candidate due to multiple comorbidities. Started letrozole in 06/2023 with complete chemical response. ALLERGIES Allergies Allergy/AdvReac Type Severity Reaction Status Date / Time No Known Drug Allergies Allergy Verified 05/28/24 08:24 MEDICATIONS Ambulatory Orders Medication Instructions Recorded Confirmed omeprazole 20 mg capsule,delayed 20 mg PO BID 04/27/14 05/28/24 release atorvastatin 20 mg tablet 20 mg PO QPM 04/03/22 05/28/24 apixaban 5 mg tablet (Eliquis) 5 mg PO BID 06/19/23 05/28/24 letrozole 2.5 mg tablet 2.5 mg PO DAILY 08/25/23 05/28/24 sennosides 8.6 mg tablet (Senna 8.6 - 25.8 mg PO DAILY PRN 11/03/23 05/29/24 Lax) Constipation trazodone 50 mg tablet 100 mg PO QPM 01/06/24 05/28/24 [id number]-ksoczedl-obee 1 tab PO DAILYWM #100 tabs 01/08/24 05/28/24 fumarate 19 mg-folic acid 400 mcg tablet (Therapeutic-M) potassium chloride 10 mEq 20 meq (2 x 10 mEq) PO QDAY #180 05/13/24 05/28/24 capsule,extended release caps pregabalin 75 mg capsule 75 mg PO TID 05/13/24 05/28/24 acetaminophen 650 mg 650 mg PO QID PRN fever or pain 05/22/24 05/28/24 tablet,extended release acetylcarnitine HCl 250 mg capsule 50 mg PO QDAY 05/22/24 05/28/24 cholecalciferol (vitamin D3) 125 125 mcg PO QDAY 05/22/24 05/28/24 mcg (5,000 unit) capsule clobetasol 0.05 % shampoo topical 05/22/24 05/22/24 furosemide 40 mg tablet 40 mg PO BID 05/22/24 05/28/24 glucosamine-chondroitin 500 mg-400 1 cap PO BID 05/22/24 05/29/24 mg capsule ipratropium 0.5 mg-albuterol 3 mg 3 ml inhalation Q4H PRN shortness 05/22/24 05/29/24 (2.5 mg base)/3 mL nebulization of breath soln mecobalamin (vitamin B12) 1,000 1,000 mcg PO QDAY 05/22/24 05/28/24 mcg chewable tablet (B12 Active) methocarbamol 750 mg tablet 375 mg PO TID PRN Spasms 05/22/24 05/28/24 nystatin 100,000 unit/gram topical 1 applic topical BID PRN rash 05/22/24 05/29/24 cream ondansetron HCl 4 mg tablet 4 mg PO Q8H PRN nausea and vomiting 05/22/24 05/29/24 polyethylene glycol 3350 17 17 g PO BID PRN constipation 05/22/24 05/29/24 gram/dose oral powder (Miralax) semaglutide (weight loss) 0.25 0.25 mg subcut QWEEK 05/22/24 05/29/24 mg/0.5 mL subcutaneous pen injector (Wegovy) amoxicillin 500 mg-potassium 1 tab PO BID #5 tabs 06/04/24 clavulanate 125 mg tablet midodrine 10 mg tablet 10 mg PO TIDWM #42 tabs 06/04/24 PHYSICAL EXAM AT DISCHARGE Physical Exam Other/Comments: Physical Exam Other/Comments: Elderly woman sitting in bed, NAD, slcera anicteric, MMM Lungs: diminished at bases, no wheeze, nonlabored RRR, S1S2, 2+ LE edema Abd soft, NT, ND, BS+ Alert, answers questions appropriately, moves all extremities, normal tone, now tremor no clubbing or cyanosis LABS 06/03/24 04:45 06/04/24 04:50 DIAGNOSTIC IMAGING Diagnostic Imaging Results Comments: CXR, 05/28/24: IMPRESSION: Cardiomegaly with interstitial prominence and likely small bilateral pleural effusions. CHF is suspected. CXR, 06/01/24: IMPRESSION: Compared to prior radiograph on 05/28/2024, persistent [id number] left pleural effusion and interstitial prominence, likely pulmonary edema in the setting of cardiomegaly. SEPSIS Current Stage of Sepsis: Septic shock Possible source of Sepsis: Pulmonary Sepsis Criteria: Recorded Respiratory Rate greater than 20, SBP drop more than 40mHg, MAP less than 65 mmHg and SBP less than 90 mmHg TIME SPENT Time Spent in Discharge (Minutes): 25 Discharge Plan Discharge Patient Disposition: Home, Self Care Condition: Stable Medically Cleared Date:: 06/04/24 Prescriptions: New amoxicillin-pot clavulanate 500-125 mg Tablet 1 tab PO BID Qty: 5 0RF midodrine 10 mg Tablet 10 mg PO TIDWM Qty: 42 0RF Continued potassium chloride 10 mEq capsule, extended release 20 meq PO QDAY Qty: 180 3RF Rx Instructions: Take with furosemide daily pregabalin 75 mg capsule 75 mg PO TID omeprazole 20 MG capsule,delayed release(DR/EC) 20 mg PO BID atorvastatin 20 MG tablet 20 mg PO QPM Patient Comments: TAKE 1 TABLET BY MOUTH ONCE DAILY IN THE EVENING methocarbamol 750 mg tablet 375 mg PO TID PRN (Reason: Spasms) Rx Instructions: Max 3 doses daily Eliquis 5 MG tablet 5 mg PO BID letrozole 2.5 MG tablet 2.5 mg PO DAILY sennosides [Senna Lax] 8.6 MG tablet 8.6 - 25.8 mg PO DAILY PRN (Reason: Constipation) furosemide 40 mg tablet 40 mg PO BID Rx Instructions: Give in AM and noon trazodone 50 MG tablet 100 mg PO QPM Therapeutic-M 1 TAB tablet 1 tab PO DAILYWM Qty: 100 0RF clobetasol 0.05 % shampoo topical ipratropium-albuterol 0.5 mg-3 mg(2.5 mg base)/3 mL solution for nebulization 3 ml inhalation Q4H PRN (Reason: shortness of breath) Rx Instructions: For wheezing or SOB Wegovy 0.25 mg/0.5 mL pen injector 0.25 mg subcut QWEEK Rx Instructions: administer weeks 1 through 4 of therapy ondansetron HCl 4 mg tablet 4 mg PO Q8H PRN (Reason: nausea and vomiting) mecobalamin (vitamin B12) [B12 Active] 1,000 mcg tablet,chewable 1,000 mcg PO QDAY acetaminophen 650 mg tablet extended release 650 mg PO QID PRN (Reason: fever or pain) Rx Instructions: Max 3250 mg daily cholecalciferol (vitamin D3) 125 mcg (5,000 unit) capsule 125 mcg PO QDAY nystatin 100,000 unit/gram cream 1 applic topical BID PRN (Reason: rash) Rx Instructions: Apply to affected area acetylcarnitine HCl 250 mg capsule 50 mg PO QDAY glucosamine-chondroitin 500-400 mg capsule 1 cap PO BID Rx Instructions: give with meal/snack polyethylene glycol 3350 [Miralax] 17 gram/dose powder 17 g PO BID PRN (Reason: constipation) Discontinued losartan 25 MG tablet 25 mg PO QPM Patient Comments: Take 1 tablet by mouth once a day at bedtime carvedilol 3.125 mg tablet 3.125 mg PO BID Rx Instructions: must administer with a meal/food Activity Restrictions: Activity as Tolerated Diet: Cardiac Plan of Treatment: Contact your primary care provider or return to the hospital if you have difficulty breathing, chest pain, lightheadedness, fainting, low blood pressure, palpitations, bleeding, confusion, lethargy, or for any other concerns. Finish the entire course of antibiotics for your pneumonia. It is very important you continue using your CPAP machine every night while sleeping. We have adjusted some of your medications due to low blood pressure and slow heart rate- stop taking carvedilol and losartan for now. Your primary care provider may restart some medications if your blood pressure normalizes in the coming weeks. You were started on a medication called abrine for your low blood pressure. Please have your blood pressure checked within 1 week and discuss the result with your primary care provider. Ideally, this medication will be weaned off over the coming weeks and should not be a custodial medication. Print Language: Occitan Patient Instructions: Pneumonia, Heart Failure Dc Follow-up Care: Miryam Potts PA-C [Provider Admit Priv/Credential] - 1 Week (Call to make an appointment for within 1 week. )
== END 2024-06-04 15:00 | disposition home or self-care (01) | DRG 871 ==
LOC: EDBD → ED 08:08 → ICU 11:47
PROVIDERS: ADMIT Internal Medicine; ATTEND Internal Medicine
DX: G93.41 Metabolic encephalopathy; I48.0 Paroxysmal atrial fibrillation; C50.911 Malignant neoplasm of unspecified site of right female breast; I50.22 Chronic systolic (congestive) heart failure; E87.29 Other acidosis; I95.9 Hypotension, unspecified; Z20.822 Contact with and (suspected) exposure to COVID-19; J96.20 Acute and chronic respiratory failure, unspecified whether with hypoxia or hypercapnia; I50.33 Acute on chronic diastolic (congestive) heart failure; E83.39 Other disorders of phosphorus metabolism; N17.0 Acute kidney failure with tubular necrosis; J15.9 Unspecified bacterial pneumonia; R65.21 Severe sepsis with septic shock; D53.9 Nutritional anemia, unspecified; Z20.828 Contact with and (suspected) exposure to other viral communicable diseases; E83.51 Hypocalcemia; Z17.1 Estrogen receptor negative status [ER-]; N17.9 Acute kidney failure, unspecified; E66.2 Morbid (severe) obesity with alveolar hypoventilation; R00.1 Bradycardia, unspecified; A41.9 Sepsis, unspecified organism; Z79.899 Other long term (current) drug therapy; Z66 Do not resuscitate; J96.10 Chronic respiratory failure, unspecified whether with hypoxia or hypercapnia; Z68.42 Body mass index [BMI] 45.0-49.9, adult

== ENCOUNTER 2024-06-11 16:30 | Observation (INO) ==
[2024-06-11 17:08] LABS: BASOPHILS # (AUTO) 0.1 10^3/uL (0.0-0.1); BASOPHILS % (AUTO) 0.7 %; EOSINOPHILS # (AUTO) 0.1 10^3/uL (0.0-0.7); EOSINOPHILS % (AUTO) 0.7 %; HCT - HEMATOCRIT 37.5 % (37.0-47.0); HGB - HEMOGLOBIN 10.6 g/dL (12.0-16.0); LYMPHOCYTES # (AUTO) 1.1 10^3/uL (1.5-3.5); LYMPHOCYTES % (AUTO) 12.7 %; MEAN CORPUSCULAR HGB CONC 28.3 g/dL (32.0-36.0); MEAN CORPUSCULAR VOLUME 102.7 fL (81.0-99.0); MEAN PLATELET VOLUME 10.8 fL (7.9-10.8); MONOCYTES # (AUTO) 0.6 10^3/uL (0.0-1.0); MONOCYTES % (AUTO) 6.8 %; NEUTROPHILS # (AUTO) 6.6 10^3/uL (1.5-6.6); NEUTROPHILS % (AUTO) 78.5 %; PLT - PLATELET COUNT 205 10^3/uL (130-450); RED BLOOD COUNT 3.65 10^6/uL (4.20-5.40); RED CELL DISTRIBUTION WIDTH 14.9 % (12.0-15.0); WHITE BLOOD COUNT 8.4 x10^3/uL (4.8-10.8)
[2024-06-11 17:20] LABS: MAGNESIUM 1.9 mg/dL (1.7-2.3)
[2024-06-11 17:29] LABS: ALBUMIN 3.6 g/dL (3.2-5.5); ALBUMIN/GLOBULIN RATIO 1.2 (1.0-2.2); BILIRUBIN,TOTAL 0.3 mg/dL (0.2-1.0); CALCIUM 9.7 mg/dL (8.5-10.3); CREATININE 1.6 mg/dL (0.6-1.3); POTASSIUM 4.2 mmol/L (3.5-4.5); TOTAL PROTEIN 6.7 g/dL (6.4-8.9)
--- NOTE | 2024-06-11 17:40 | XRAY Report ---
PROCEDURE: XR Chest 1V INDICATIONS: shortness of breath TECHNIQUE: One view of the chest was acquired. COMPARISON: None. 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 Lungs and pleura: Lungs are hypoinflated without focal consolidation. Mediastinum: Heart is enlarged but unchanged. Pulmonary vasculature is prominent. Bones and chest wall: No suspicious bony lesions. Overlying soft tissues appear unremarkable. IMPRESSION: Portable chest radiograph with unchanged cardiomegaly and likely pulmonary edema. Reviewed by: Nasreen Galvan MD on 06/11/2024 4:38 PM [place] Approved by: Nasreen Galvan MD on 06/11/2024 4:38 PM [facility] Station ID: [id number]
--- NOTE | 2024-06-11 17:47 | ED Physician Documentation ---
History of Present Illness Stated complaint Stated Complaint: SOA Chief complaint Chief Complaint: Resp History obtained from History obtained from: Patient History of Present Illness Timing: Prior to arrival Additonal information Additional information: Patient is an 83-year-old female presenting to the emergency department with shortness of breath and hypoxia. Patient is on palliative care with past medical history remarkable for breast cancer COPD atrial fibrillation on Eliquis and CHF. Patient was admitted at the end of May for pneumonia. And was di scharged on oral antibiotics back to home care where she is on 2 L nasal cannula. She finished antibiotics according to care provider at home but when she was checking her oxygen today she was hypoxic to 86% EMS arrived and confirmed this finding and increased her to 4 L. Patient has been stable otherwise according to careprovider unable to obtain much history from patient on arrival... Meds/Allgy Home Medications Ambulatory Orders Medication Instructions Recorded Confirmed omeprazole 20 mg capsule,delayed 20 mg PO BID 04/27/14 06/08/24 release atorvastatin 20 mg tablet 20 mg PO QPM 04/03/22 06/08/24 apixaban 5 mg tablet (Eliquis) 5 mg PO BID 06/19/23 06/08/24 trazodone 50 mg tablet 100 mg PO QPM 01/06/24 06/08/24 potassium chloride 10 mEq 20 meq (2 x 10 mEq) PO QDAY #180 05/13/24 06/08/24 capsule,extended release caps acetylcarnitine HCl 250 mg capsule 50 mg PO QDAY 05/22/24 06/08/24 cholecalciferol (vitamin D3) 125 125 mcg PO QDAY 05/22/24 06/08/24 mcg (5,000 unit) capsule glucosamine-chondroitin 500 mg-400 1 cap PO BID 05/22/24 06/08/24 mg capsule nystatin 100,000 unit/gram topical 1 applic topical BID PRN rash 05/22/24 06/08/24 cream polyethylene glycol 3350 17 17 g PO BID PRN constipation 05/22/24 06/08/24 gram/dose oral powder (Miralax) Permanent Disabled Placard 06/08/24 06/08/24 acetaminophen 650 mg 650 mg PO QID PRN pain 06/08/24 06/08/24 tablet,extended release albuterol sulfate 2.5 mg/3 mL 2.5 mg inhalation Q6H PRN 06/08/24 06/08/24 (0.083 %) solution for nebulization shortness of breath or wheezing alpha lipoic acid 600 mg capsule 600 mg PO QDAY 06/08/24 06/08/24 carvedilol 3.125 mg tablet 3.125 mg PO BID 06/08/24 06/08/24 furosemide 40 mg tablet 40 mg PO BID 06/08/24 06/08/24 ipratropium 0.5 mg-albuterol 3 mg 3 ml inhalation Q4H PRN shortness 06/08/24 06/08/24 (2.5 mg base)/3 mL nebulization of breath soln letrozole 2.5 mg tablet 2.5 mg PO QDAY 06/08/24 06/08/24 losartan 25 mg tablet 25 mg PO QDAY 06/08/24 06/08/24 mecobalamin (vitamin B12) 1,000 1,000 mcg PO QDAY 06/08/24 06/08/24 mcg chewable tablet (B12 Active) methocarbamol 750 mg tablet 375 mg PO TID PRN muscle spasm 06/08/24 06/08/24 multivitamin (Daily Multi-Vitamin 1 tab PO QDAY 06/08/24 06/08/24 tablet) ondansetron HCl 4 mg tablet 4 mg PO .Q6-8H PRN nausea and 06/08/24 06/08/24 vomiting povidone-iodine 10 % topical 1 applic topical QDAY PRN 06/08/24 06/08/24 solution (Betadine) disinfection pregabalin 75 mg capsule 75 mg PO TID 06/08/24 06/08/24 semaglutide (weight loss) 0.25 0.25 mg subcut QWEEK 06/08/24 06/08/24 mg/0.5 mL subcutaneous pen injector (Wegovy) sennosides 8.6 mg tablet (Senna 8.6 - 25.8 mg PO QDAY PRN 06/08/24 06/08/24 Lax) Constipation Allergies Allergies Allergy/AdvReac Type Severity Reaction Status Date / Time No Known Drug Allergies Allergy Verified 06/11/24 17:00 [facility] Medical History Medical History (Updated 06/11/24 @ 18:15 by Chantal Valenzuela PA-C) Triple negative breast cancer Electrolyte abnormality Hypercarbia Anemia Acute on chronic heart failure Multiple transverse process fractures Respiratory failure Acute and chronic respiratory failure with hypoxia Obesity Elevated troponin CHF exacerbation Hyperchloremia Pancytopenia Pneumonia Hypocalcemia Hypercalcemia Oliguria Acute on chronic respiratory failure with hypoxia and hypercapnia Unspecified lump in the right breast, upper outer quadrant (04/14/23) Morbid obesity with BMI of 40.0-44.9, adult Acute respiratory failure with hypoxia and hypercarbia Metabolic encephalopathy Ingrown toenail Abnormal chest x-ray Increased ammonia level Elevated WBC count Hyperkalemia Catheter-associated urinary tract infection 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, estrogen receptor positive (11/20/05) Pressure ulcer, buttock (07/06/20) Pneumonia (06/23/23) Hypotension (11/24/23) Hyponatremia (03/07/20) Hypercalcemia (12/26/16) Elevated troponin (05/10/19) Anemia (06/23/23) Vitamin B12 deficiency (10/20/19) Acute systolic heart failure (05/10/19) Pressure ulcer of sacral region, unspecified stage (01/21/23) Overactive bladder (04/04/10) Benign neoplasm of unspecified ovary (09/03/05) Lymphedema (11/25/18) Leg pain, right (04/25/22) Laceration without foreign body of other part of head, subsequent encounter (11/11/22) Hepatic cyst (08/11/18) Gastroenteritis (04/09/07) Diverticulosis of colon (05/20/06) Decubitus ulcer of elbow (06/05/21) Conjunctivitis (05/25/17) Closed fracture of lateral malleolus (04/04/10) Carpal tunnel syndrome (07/23/18) Carotidynia (03/30/19) Blurred vision (12/15/23) UTI (urinary tract infection), bacterial (09/28/23) Degenerative arthritis of right knee (10/14/19) Arthritis of ankle, right, degenerative (11/25/18) Surgical History Surgical History (Updated 05/22/24 @ 19:43 by EZ Rhodes) History of mandibular surgery History of cataract extraction History of lumpectomy of right breast Hx of tonsillectomy History of appendectomy History of hysterectomy History of cholecystectomy Family History Family History (Updated 06/08/24 @ 11:07 by Keyon yDer) Mother Parkinson's disease Arthritis High blood pressure Hyperlipemia CAD (coronary artery disease) Obesity Uterine cancer Headache Brother Diabetes Father Arthritis Social History Social History Smoking Status: Unknown if ever smoked Do you dip or chew tobacco?: No Patient requests smoking cessation consult: No Initiate information on smoking cessation: No Living arrangement: At home Marital Status: Single Living Condition: Alone and With caregiver(s) Support Person: Yes Relationship: Level: Dependent Home Mobility Equipment: Wheelchair Do you feel safe in your home environment?: Yes Suffered physical, verbal, emotional, or financial abuse?: No History of Abuse: No Service: No POLST Patient has POLST: Yes POLST Status: DNR Exam Constitutional Patient appears obtunded on examination GCS 11 on arrival HENMT normocephalic Eyes PERRL and EOMs intact bilaterally Neck/C-Spine visual inspection normal Lymph no lymphadenopathy noted Respiratory breath sounds equal bilaterally Cardiovascular normal heart rate noted and regular rhythm noted Gastrointestinal Large abdomen difficult to assess due to body habitus Extremities Bilateral lower leg swelling on examination diminished strength in all 4 extremities on examination equal throughout. Psychiatry A & O x1 on arrival Patient appears in no acute distress but appears altered. Skin no ecchymosis noted and no wounds Results Vitals Vitals: Vital Signs - 24 hr 06/11/24 16:42 06/11/24 17:10 06/11/24 18:08 Temperature 37.1 C 36.9 C Temperature Source Oral Oral Pulse Rate 81 72 Respiratory Rate 23 22 Blood Pressure 153/57 H 131/67 H O2 Saturation 96 94 Oxygen Delivery Method Nasal Cannula O2 Source Nasal cannula Nasal cannula If not protocol: Oxygen Flow, liters/minute 4 4 4 Pain Intensity 0 0 Oxygen O2 Source [Without Activity] Nasal cannula O2 Source [With Activity] Nasal cannula O2 Source Nasal cannula Labs Labs: Laboratory Tests 06/11/24 06/11/24 06/11/24 17:02 17:44 17:49 WBC 8.4 RBC 3.65 L Hgb 10.6 L Hct 37.5 MCV 102.7 H MCH 29.0 MCHC 28.3 L RDW 14.9 Plt Count 205 MPV 10.8 Neut # (Auto) 6.6 Lymph # (Auto) 1.1 L Andrew # (Auto) 0.6 Eos # (Auto) 0.1 Baso # (Auto) 0.1 Absolute Nucleated RBC 0.00 Nucleated RBC % 0.0 VBG pH 7.216 L VBG pCO2 105.9 H VBG pO2 84.2 H VBG HCO3 42.0 H VBG Total CO2 45.2 H VBG O2 Saturation 94.9 H VBG Base Excess 10.7 H Sodium 144 Potassium 4.2 Chloride 97 L Carbon Dioxide 45 H* Anion Gap 2.0 L BUN 25 H Creatinine 1.6 H Estimated GFR (MDRD) 31 L Glucose 113 H Calcium 9.7 Magnesium 1.9 Total Bilirubin 0.3 AST 10 ALT 10 Alkaline Phosphatase 72 B-Natriuretic Peptide 580 H Total Protein 6.7 Albumin 3.6 Globulin 3.1 Albumin/Globulin Ratio 1.2 Nasal Adenovirus (PCR) NOT DETECTED Nasal B. parapertussis DNA (PCR) NOT DETECTED Nasal Coronavir 229E PCR NOT DETECTED Nasal Coronavir HKU1 PCR NOT DETECTED Nasal Coronavir NL63 PCR NOT DETECTED Nasal Coronavir OC43 PCR NOT DETECTED Nasal Enterovir/Rhinovir PCR NOT DETECTED Nasal Influenza B PCR NOT DETECTED Nasal Influenza A PCR NOT DETECTED Nasal Parainfluen 1 PCR NOT DETECTED Nasal Parainfluen 2 PCR NOT DETECTED Nasal Parainfluen 3 PCR NOT DETECTED Nasal Parainfluen 4 PCR NOT DETECTED Nasal RSV (PCR) NOT DETECTED Nasal B.pertussis DNA PCR NOT DETECTED Nasal C.pneumoniae (PCR) NOT DETECTED Ankit Human Metapneumo PCR NOT DETECTED Nasal M.pneumoniae (PCR) NOT DETECTED Nasal SARS-CoV-2 (PCR) NOT DETECTED Rads (name of study) Chest X-ray: Interpretation: Fluid overload PD Medical Decision Making ED course Complexity details: reviewed old records ED course: Patient is an 83-year-old female presenting to the emergency department with shortness of breath and hypoxia. Patient is on palliative care with past medical history remarkable for breast cancer COPD atrial fibrillation on Eliquis and CHF. Patient was admitted at the end of May for pneumonia. And was discharged on oral antibiotics back to home care where she is on 2 L nasal cannula. She finished antibiotics according to care provider at home but when she was checking her oxygen today she was hypoxic to 86% EMS arrived and confirmed this finding and increased her to 4 L. Patient is saturating well on 4 L but is ANO x 1 on arrival GCS of 11 on examination. Patient appears obtunded on examination. Concern for fluid overload given lower leg swelling and rhonchi on auscultation of the lungsPatient's PERC score is 0. Vital stable otherwise normotensive normal respiratory rate generalized weakness and examination all 4 extremities upper and lower on examination. Patient is able to follow simple commands. Workup here does show signs findings of acute fluid overload with chest x-ray showing diffuse pulmonary edema BNP significantly elevated at 585 no worsening CKD compared to previous patient given a dose of Lasix here but remains altered and requiring 4 L nasal cannula. Consider BiPAP here in the ED however given altered mental status and saturating well on flow rate will admit to floor at this time. Will hold off on BiPAP as patient appears slightly confused with risk of keeping patient on BiPAP with changes in mental status. Discussed case with hospitalist who is agreeable to taking patient they will come evaluate patient done here in the ED. Discharge Plan Discharge Patient Disposition: 66 [facility] DC/Xfer Condition: Poor Clinical Impression: Acute exacerbation of CHF (congestive heart failure)
[2024-06-11 17:56] LABS: VBG BASE EXCESS 10.7 mmol/L (-2 - +2); VBG OXYGEN SATURATION 94.9 % (60-80); VBG PCO2 105.9 mmHg (41-51); VBG PH 7.216 (7.31-7.41); VBG PO2 84.2 mmHg (25-47); VBG TOTAL CO2 45.2 mmol/L (24-29)
[2024-06-11] MEDS: FUROSEMIDE 20 MG/2 ML VIAL IVP STA (18:07)
--- NOTE | 2024-06-11 18:16 | HISTORY & PHYSICAL EXAMINATION ---
Chief Complaint Chief Complaint Chief Complaint: Shortness of breath History of Present Illness Admitted From Admitted From:: ED History Obtained From Records Reviewed: yes History obtained from: chart review Exam Limitations: somnolence History of Present Illness HPI Comment/Other: 83-year-old female history of triple negative right breast cancer on letrozole, heart failure with preserved EF, obesity hypoventilation syndrome, Who was recently admitted for metabolic encephalopathy due to CO2 retention and sepsis and was sent home on 2 L home O2 during the day and BiPAP while asleep. She presents with dyspnea today. Chest x-ray was performed which showed some unchanged cardiomegaly and pulmonary congestion. Chemistry was significant for elevated CO2, elevated BNP. Hospitalist was contacted for possible admission for acute on chronic hypoxic and suspected hypercapnic respiratory failure Meds/Allgy Home Medications Ambulatory Orders Medication Instructions Recorded Confirmed omeprazole 20 mg capsule,delayed 20 mg PO BID 04/27/14 06/08/24 release atorvastatin 20 mg tablet 20 mg PO QPM 04/03/22 06/08/24 apixaban 5 mg tablet (Eliquis) 5 mg PO BID 06/19/23 06/08/24 trazodone 50 mg tablet 100 mg PO QPM 01/06/24 06/08/24 potassium chloride 10 mEq 20 meq (2 x 10 mEq) PO QDAY #180 05/13/24 06/08/24 capsule,extended release caps acetylcarnitine HCl 250 mg capsule 50 mg PO QDAY 05/22/24 06/08/24 cholecalciferol (vitamin D3) 125 125 mcg PO QDAY 05/22/24 06/08/24 mcg (5,000 unit) capsule glucosamine-chondroitin 500 mg-400 1 cap PO BID 05/22/24 06/08/24 mg capsule nystatin 100,000 unit/gram topical 1 applic topical BID PRN rash 05/22/24 06/08/24 cream polyethylene glycol 3350 17 17 g PO BID PRN constipation 05/22/24 06/08/24 gram/dose oral powder (Miralax) Permanent Disabled Placard 06/08/24 06/08/24 acetaminophen 650 mg 650 mg PO QID PRN pain 06/08/24 06/08/24 tablet,extended release albuterol sulfate 2.5 mg/3 mL 2.5 mg inhalation Q6H PRN 06/08/24 06/08/24 (0.083 %) solution for nebulization shortness of breath or wheezing alpha lipoic acid 600 mg capsule 600 mg PO QDAY 06/08/24 06/08/24 carvedilol 3.125 mg tablet 3.125 mg PO BID 06/08/24 06/08/24 furosemide 40 mg tablet 40 mg PO BID 06/08/24 06/08/24 ipratropium 0.5 mg-albuterol 3 mg 3 ml inhalation Q4H PRN shortness 06/08/24 06/08/24 (2.5 mg base)/3 mL nebulization of breath soln letrozole 2.5 mg tablet 2.5 mg PO QDAY 06/08/24 06/08/24 losartan 25 mg tablet 25 mg PO QDAY 06/08/24 06/08/24 mecobalamin (vitamin B12) 1,000 1,000 mcg PO QDAY 06/08/24 06/08/24 mcg chewable tablet (B12 Active) methocarbamol 750 mg tablet 375 mg PO TID PRN muscle spasm 06/08/24 06/08/24 multivitamin (Daily Multi-Vitamin 1 tab PO QDAY 06/08/24 06/08/24 tablet) ondansetron HCl 4 mg tablet 4 mg PO .Q6-8H PRN nausea and 06/08/24 06/08/24 vomiting povidone-iodine 10 % topical 1 applic topical QDAY PRN 06/08/24 06/08/24 solution (Betadine) disinfection pregabalin 75 mg capsule 75 mg PO TID 06/08/24 06/08/24 semaglutide (weight loss) 0.25 0.25 mg subcut QWEEK 06/08/24 06/08/24 mg/0.5 mL subcutaneous pen injector (Wegovy) sennosides 8.6 mg tablet (Senna 8.6 - 25.8 mg PO QDAY PRN 06/08/24 06/08/24 Lax) Constipation Allergies Allergies Allergy/AdvReac Type Severity Reaction Status Date / Time No Known Drug Allergies Allergy Verified 06/11/24 17:00 [facility] Medical History Medical History (Updated 06/11/24 @ 18:15 by Chantal Valenzuela PA-C) Triple negative breast cancer Electrolyte abnormality Hypercarbia Anemia Acute on chronic heart failure Multiple transverse process fractures Respiratory failure Acute and chronic respiratory failure with hypoxia Obesity Elevated troponin CHF exacerbation Hyperchloremia Pancytopenia Pneumonia Hypocalcemia Hypercalcemia Oliguria Acute on chronic respiratory failure with hypoxia and hypercapnia Unspecified lump in the right breast, upper outer quadrant (04/14/23) Morbid obesity with BMI of 40.0-44.9, adult Acute respiratory failure with hypoxia and hypercarbia Metabolic encephalopathy Ingrown toenail Abnormal chest x-ray Increased ammonia level Elevated WBC count Hyperkalemia Catheter-associated urinary tract infection 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, estrogen receptor positive (11/20/05) Pressure ulcer, buttock (07/06/20) Pneumonia (06/23/23) Hypotension (11/24/23) Hyponatremia (03/07/20) Hypercalcemia (12/26/16) Elevated troponin (05/10/19) Anemia (06/23/23) Vitamin B12 deficiency (10/20/19) Acute systolic heart failure (05/10/19) Pressure ulcer of sacral region, unspecified stage (01/21/23) Overactive bladder (04/04/10) Benign neoplasm of unspecified ovary (09/03/05) Lymphedema (11/25/18) Leg pain, right (04/25/22) Laceration without foreign body of other part of head, subsequent encounter (11/11/22) Hepatic cyst (08/11/18) Gastroenteritis (04/09/07) Diverticulosis of colon (05/20/06) Decubitus ulcer of elbow (06/05/21) Conjunctivitis (05/25/17) Closed fracture of lateral malleolus (04/04/10) Carpal tunnel syndrome (07/23/18) Carotidynia (03/30/19) Blurred vision (12/15/23) UTI (urinary tract infection), bacterial (09/28/23) Degenerative arthritis of right knee (10/14/19) Arthritis of ankle, right, degenerative (11/25/18) Surgical History Surgical History (Updated 05/22/24 @ 19:43 by EZ Rhodes) History of mandibular surgery History of cataract extraction History of lumpectomy of right breast Hx of tonsillectomy History of appendectomy History of hysterectomy History of cholecystectomy Family History Family History (Updated 06/08/24 @ 11:07 by Keyon Dyer) Mother Parkinson's disease Arthritis High blood pressure Hyperlipemia CAD (coronary artery disease) Obesity Uterine cancer Headache Brother Diabetes Father Arthritis Social History Social History Smoking Status: Unknown if ever smoked Do you dip or chew tobacco?: No Patient requests smoking cessation consult: No Initiate information on smoking cessation: No Living arrangement: At home Marital Status: Single Living Condition: Alone and With caregiver(s) Support Person: Yes Relationship: Level: Dependent Home Mobility Equipment: Wheelchair Do you feel safe in your home environment?: Yes Suffered physical, verbal, emotional, or financial abuse?: No History of Abuse: No Service: No POLST Patient has POLST: Yes POLST Status: DNR Review of Systems Status of ROS: unobtainable due to medical condition (Somnolent, likely with CO2 narcosis) Exam Constitutional abnormal body habitus (obese) Somnolent HENMT normocephalic and head/scalp atraumatic Eyes PERRL and EOMs intact bilaterally Neck/C-Spine visual inspection normal and trachea midline Lymph no lymphadenopathy noted Chest inspection of chest normal and palpation of chest normal Respiratory Diminished breath sounds with fine crackles Cardiovascular normal heart rate noted and edema noted Gastrointestinal Protuberant abdomen Genitourinary bladder normal to palpation Extremities Compression footwear intact Neurology Somnolent, will answer with yes or no before going back to sleep. No lateralizing deficits Skin skin color normal Conclusion/Plan Problem List (1) Acute on chronic respiratory failure with hypoxia and hypercapnia: Plan: Placed in observation Confirmed hypoxic respiratory failure, presumed hypercapnic given elevated CO2 on chemistry Likely combination of heart failure and OHS Will place on BiPAP for now AZUCENA says no intubation Check blood gas Received 20 mg IV Lasix from ER provider Chest x-ray without any significant changes, will hold off on further aggressive diuresis (2) Paroxysmal atrial fibrillation: Plan: Continue home metoprolol, Eliquis (3) Morbid obesity: Plan: She is on Wegovy at home. I plan to discharge her before her next dose is due I will consult dietitian if she is still here past tomorrow (4) 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: Plan: Continue home regimen Preserved EF, no need for GDMT Lasix 40 mg p.o. twice daily Plan Placed in observation BiPAP overnight Lasix ordered by ER provider Will likely discharge her home tomorrow, considering increased home oxygen Will need to promote compliance with home BiPAP Patient has POLST, indicates CPR okay but no intubation Lab Results 06/11/24 17:02 06/11/24 17:02
[2024-06-11 18:36] LABS: B. PARAPERTUSSIS- RESP PCR PAN NOT DETECTED; B. PERTUSSIS- RESP PCR PANEL NOT DETECTED; C. PNEUMONIAE- RESP PCR PANEL NOT DETECTED; CORONAVIRUS 229E-RESP PCR NOT DETECTED; CORONAVIRUS HKU1-RESP PCR NOT DETECTED; CORONAVIRUS NL63-RESP PCR NOT DETECTED; CORONAVIRUS OC43-RESP PCR NOT DETECTED; HUMAN METAPNEUMOVIRUS NOT DETECTED; INFLUENZA A- RESP PCR PANEL NOT DETECTED; INFLUENZA B - RESP PCR PANEL NOT DETECTED; M. PNEUMONIAE- RESP PCR PANEL NOT DETECTED; PARAINFLUENZA VIRUS 1 NOT DETECTED; PARAINFLUENZA VIRUS 2 NOT DETECTED; PARAINFLUENZA VIRUS 3 NOT DETECTED; PARAINFLUENZA VIRUS 4 NOT DETECTED; RHINOVIRUS/ENTEROVIRUS NOT DETECTED; RSV- RESP PCR PANEL NOT DETECTED; SARS-CoV-2 -RESP PCR PANEL NOT DETECTED
[2024-06-11] MEDS ORDERED: NOREPINEPHRINE/0.9 % NS 8 MG/250 ML BAG IV ONE (19:35)
[2024-06-11] MEDS ORDERED: methocarbamoL 500 MG TABLET PO PRN (19:55)
[2024-06-11] MEDS ORDERED: ONDANSETRON ODT 4 MG TABLET PO PRN (19:55)
[2024-06-11] MEDS ORDERED: NYSTATIN CREAM 15 GM TUBE TOP PRN (19:55)
[2024-06-11] MEDS ORDERED: SENNA 8.6 MG TABLET PO PRN (19:55)
[2024-06-11] MEDS ORDERED: ALBUTEROL NEB 2.5 MG/3 ML INH PRN (19:55)
[2024-06-11] MEDS ORDERED: SODIUM CHLORIDE FLUSH 0.9% 10 ML SYRINGE IVP PRN (19:55)
[2024-06-11] MEDS ORDERED: IPRATROPIUM/ALBUTEROL 3 ML NEB INH PRN (19:55)
[2024-06-11] MEDS ORDERED: polyethylene glycoL 3350 17 GM PACKET PO PRN (20:16)
[2024-06-11 21:08] LABS: ABG HCO3 50.2 mmol/L (22.0-26.0); ABG PCO2 125 mmHg (34-45); ABG PH 7.22 (7.35-7.45); ABG PO2 150 mmHg (80-100)
[2024-06-11 21:09] LABS: ABG BASE EXCESS 18.1 mmol/L (-2.0-3.0); ABG OXYGEN SATURATION 99 % (94-98); ABG TCO2 54.1 MMOL/L (21.0-29.0); ALLEN TEST POSITIVE
[2024-06-11] MEDS: PREGABALIN 25 MG CAPSULE PO SCH (21:44)
[2024-06-11] MEDS: traZODone 50 MG TABLET PO SCH (21:44)
[2024-06-11] MEDS: carvediloL 3.125 MG TABLET PO SCH (21:44)
[2024-06-11] MEDS: ATORVASTATIN 10 MG TABLET PO SCH (21:44)
[2024-06-11] MEDS: APIXABAN 5 MG TABLET PO SCH (21:44)
[2024-06-11] MEDS: NOREPINEPHRINE/0.9 % NS 8 MG/250 ML BAG IV SCH (23:55)
[2024-06-12] MEDS: SODIUM CHLORIDE FLUSH 0.9% 10 ML SYRINGE IVP SCH (00:04)
[2024-06-12 05:19] LABS: BASOPHILS # (AUTO) 0.1 10^3/uL (0.0-0.1); BASOPHILS % (AUTO) 1.3 %; EOSINOPHILS # (AUTO) 0.1 10^3/uL (0.0-0.7); EOSINOPHILS % (AUTO) 1.5 %; HCT - HEMATOCRIT 34.3 % (37.0-47.0); HGB - HEMOGLOBIN 9.8 g/dL (12.0-16.0); LYMPHOCYTES # (AUTO) 1.2 10^3/uL (1.5-3.5); LYMPHOCYTES % (AUTO) 16.7 %; MEAN CORPUSCULAR HEMOGLOBIN 29.4 pg (27.0-31.0); MEAN CORPUSCULAR HGB CONC 28.6 g/dL (32.0-36.0); MEAN PLATELET VOLUME 11.4 fL (7.9-10.8); MONOCYTES # (AUTO) 0.7 10^3/uL (0.0-1.0); NEUTROPHILS % (AUTO) 69.9 %; PLT - PLATELET COUNT 192 10^3/uL (130-450); RED BLOOD COUNT 3.33 10^6/uL (4.20-5.40); RED CELL DISTRIBUTION WIDTH 14.9 % (12.0-15.0); WHITE BLOOD COUNT 7.2 x10^3/uL (4.8-10.8)
[2024-06-12 05:27] LABS: SLIDE REVIEW? Indicated
[2024-06-12 05:50] LABS: CALCIUM 9.6 mg/dL (8.5-10.3); CREATININE 1.5 mg/dL (0.6-1.3); POTASSIUM 4.2 mmol/L (3.5-4.5)
[2024-06-12 06:02] LABS: PLATELET ESTIMATE, MANUAL NORMAL (130-450,000) (NORMAL); PLATELET MORPHOLOGY NORMAL APPEARANCE (NORMAL); RBC MORPHOLOGY (MULTIPLE) NORMAL APPEARANCE (NORMAL); WBC MORPHOLOGY (MULTIPLE) NORMAL APPEARANCE (NORMAL)
[2024-06-12] MEDS: PANTOPRAZOLE 40 MG TABLET PO SCH (06:04)
[2024-06-12 08:32] LABS: VBG BASE EXCESS 11.4 mmol/L (-2 - +2); VBG HCO3 34.5 mmol/L (23-28); VBG PCO2 39.2 mmHg (41-51); VBG PH 7.562 (7.31-7.41); VBG PO2 193.4 mmHg (25-47); VBG TOTAL CO2 35.7 mmol/L (24-29)
[2024-06-12] MEDS: FUROSEMIDE 40 MG TABLET PO SCH (08:34)
[2024-06-12] MEDS: MULTIVITAMIN W/MINERALS TABLET PO SCH (08:34)
[2024-06-12] MEDS: MIDODRINE 10 MG TABLET PO SCH (08:34)
[2024-06-12] MEDS: CHOLECALCIFEROL 5,000 UNIT CAPSULE PO SCH (08:34)
[2024-06-12] MEDS: POTASSIUM CHLORIDE 10 MEQ CAPSULE PO SCH (08:35)
[2024-06-12] MEDS: CYANOCOBALAMIN 500 MCG TABLET PO SCH (08:35)
[2024-06-12] MEDS ORDERED: LOSARTAN 50 MG TABLET PO SCH (09:00)
[2024-06-12] MEDS ORDERED: Letrozole 2.5 mg tablet PO SCH (09:00)
[2024-06-12] MEDS: Letrozole 2.5 mg tablet PO SCH (09:39)
--- NOTE | 2024-06-12 10:02 | PHARMACY PROGRESS NOTE ---
Best Possible Medication History Admit Date and Time: 06/11/24 [id number] Home Medications Medication Instructions Recorded Confirmed Type omeprazole 20 mg capsule,delayed 20 mg PO BID 04/27/14 06/12/24 History release atorvastatin 20 mg tablet 20 mg PO QPM 04/03/22 06/12/24 History apixaban 5 mg tablet (Eliquis) 5 mg PO BID 06/19/23 06/12/24 History trazodone 50 mg tablet 100 mg PO QPM 01/06/24 06/12/24 History potassium chloride 10 mEq 20 meq (2 x 10 mEq) PO QDAY #180 05/13/24 06/12/24 Rx capsule,extended release caps cholecalciferol (vitamin D3) 125 125 mcg PO QDAY 05/22/24 06/12/24 History mcg (5,000 unit) capsule glucosamine-chondroitin 500 mg-400 1 cap PO BID 05/22/24 06/12/24 History mg capsule nystatin 100,000 unit/gram topical 1 applic topical BID PRN rash 05/22/24 06/12/24 History cream polyethylene glycol 3350 17 17 g PO BID PRN constipation 05/22/24 06/12/24 History gram/dose oral powder (Miralax) Permanent Disabled Placard 06/08/24 06/08/24 History acetaminophen 650 mg 650 mg PO QID PRN pain 06/08/24 06/12/24 History tablet,extended release albuterol sulfate 2.5 mg/3 mL 2.5 mg inhalation Q6H PRN 06/08/24 06/12/24 History (0.083 %) solution for nebulization shortness of breath or wheezing alpha lipoic acid 600 mg capsule 600 mg PO QDAY 06/08/24 06/12/24 History furosemide 40 mg tablet 40 mg PO BID 06/08/24 06/12/24 History ipratropium 0.5 mg-albuterol 3 mg 3 ml inhalation Q4H PRN shortness 06/08/24 06/12/24 History (2.5 mg base)/3 mL nebulization of breath soln letrozole 2.5 mg tablet 2.5 mg PO QDAY 06/08/24 06/12/24 History losartan 25 mg tablet 25 mg PO QDAY 06/08/24 06/12/24 History mecobalamin (vitamin B12) 1,000 1,000 mcg PO QDAY 06/08/24 06/12/24 History mcg chewable tablet (B12 Active) methocarbamol 750 mg tablet 375 mg PO TID PRN muscle spasm 06/08/24 06/12/24 History multivitamin (Daily Multi-Vitamin 1 tab PO QDAY 06/08/24 06/12/24 History tablet) ondansetron HCl 4 mg tablet 4 mg PO .Q6-8H PRN nausea and 06/08/24 06/12/24 History vomiting pregabalin 75 mg capsule 75 mg PO TID 06/08/24 06/12/24 History semaglutide (weight loss) 0.25 0.25 mg subcut QWEEK 06/08/24 06/12/24 History mg/0.5 mL subcutaneous pen injector (Matty) sennosides 8.6 mg tablet (Senna 8.6 - 25.8 mg PO QDAY PRN 06/08/24 06/12/24 History Lax) Constipation midodrine 10 mg tablet 10 mg PO TIDWM 06/12/24 06/12/24 History Processed by: Pharmacy Medications reviewed in ED?: No Medication History completed: Yes Patient Interview: Completed Secondary Source(s): Pharmacy records, Insurance records and Previous admit records [facility] Statement: As the person ultimately responsible for medication therapy, providers are able to order a medication from an existing home medication list in [facility] via the "Reconcile Routine" prior to Confirmation of that medication by clerical support. Such practice is discouraged except when the physician, in their clinical judgment, deems that a medical need exists for a medication without regard to previous use.
--- NOTE | 2024-06-12 11:04 | Discharge Summary ---
Discharge Summary Admit Date: 06/11/24 Discharge Date: 06/12/24 Discharging Provider: Vijay Ann NP Primary Care Provider: Ana Potts Code Status: Attempt Resuscitation (DO NOT INTUBATE) DIAGNOSES Admission Diagnoses: Acute on chronic respiratory failure with hypoxia and hypercapnia Obesity hypoventilation syndrome HFpEF Atrial fibrillation Morbid obesity Discharge Diagnoses with Status of Each Condition: Acute on chronic respiratory failure with hypoxia and hypercapniaresolved OHSchronic HFpEFchronic Atrial fibrillationchronic Morbid obesitychronic HPI History of Present Illness: 83-year-old female past medical history significant for OHS, A-fib, HFpEF presented to the hospital lethargic, with increasing O2 needs. She has very fragile OHS, and has to have BiPAP on anytime she is asleep. In the ER, chest x-ray was performed which showed no significant change from prior, some pulmonary congestion. She was given 1 dose of IV Lasix, and hospitalist was contacted for admission HOSPITAL COURSE Hospital Course: She was placed in observation, moved to the ICU because of a elevated CO2 on ABG. She was placed on BiPAP overnight, with resolution of her hypercapnia. She had hypotension overnight because she did not receive her nighttime dose of midodrine. She was on Levophed overnight, this was stopped this morning and midodrine was started back. I counseled her and her caregiver extensively on the need for BiPAP, as her OHS can only be fixed with tidal volume, as well as weight loss. She is much more alert today, on her home O2 level and is stable for discharge I have confirmed resolution of her hypercapnia with VBG. I have discussed her case with the ER providers as well as her home caregivers and will formulate a care plan for the next time she is in the ER ALLERGIES Allergies Allergy/AdvReac Type Severity Reaction Status Date / Time No Known Drug Allergies Allergy Verified 06/11/24 17:00 MEDICATIONS Ambulatory Orders Medication Instructions Recorded Confirmed omeprazole 20 mg capsule,delayed 20 mg PO BID 04/27/14 06/12/24 release atorvastatin 20 mg tablet 20 mg PO QPM 04/03/22 06/12/24 apixaban 5 mg tablet (Eliquis) 5 mg PO BID 06/19/23 06/12/24 trazodone 50 mg tablet 100 mg PO QPM 01/06/24 06/12/24 potassium chloride 10 mEq 20 meq (2 x 10 mEq) PO QDAY #180 05/13/24 06/12/24 capsule,extended release caps cholecalciferol (vitamin D3) 125 125 mcg PO QDAY 05/22/24 06/12/24 mcg (5,000 unit) capsule glucosamine-chondroitin 500 mg-400 1 cap PO BID 05/22/24 06/12/24 mg capsule nystatin 100,000 unit/gram topical 1 applic topical BID PRN rash 05/22/24 06/12/24 cream polyethylene glycol 3350 17 17 g PO BID PRN constipation 05/22/24 06/12/24 gram/dose oral powder (Miralax) Permanent Disabled Placard 06/08/24 06/08/24 acetaminophen 650 mg 650 mg PO QID PRN pain 06/08/24 06/12/24 tablet,extended release albuterol sulfate 2.5 mg/3 mL 2.5 mg inhalation Q6H PRN 06/08/24 06/12/24 (0.083 %) solution for nebulization shortness of breath or wheezing alpha lipoic acid 600 mg capsule 600 mg PO QDAY 06/08/24 06/12/24 furosemide 40 mg tablet 40 mg PO BID 06/08/24 06/12/24 ipratropium 0.5 mg-albuterol 3 mg 3 ml inhalation Q4H PRN shortness 06/08/24 06/12/24 (2.5 mg base)/3 mL nebulization of breath soln letrozole 2.5 mg tablet 2.5 mg PO QDAY 06/08/24 06/12/24 mecobalamin (vitamin B12) 1,000 1,000 mcg PO QDAY 06/08/24 06/12/24 mcg chewable tablet (B12 Active) methocarbamol 750 mg tablet 375 mg PO TID PRN muscle spasm 06/08/24 06/12/24 multivitamin (Daily Multi-Vitamin 1 tab PO QDAY 06/08/24 06/12/24 tablet) ondansetron HCl 4 mg tablet 4 mg PO .Q6-8H PRN nausea and 06/08/24 06/12/24 vomiting pregabalin 75 mg capsule 75 mg PO TID 06/08/24 06/12/24 semaglutide (weight loss) 0.25 0.25 mg subcut QWEEK 06/08/24 06/12/24 mg/0.5 mL subcutaneous pen injector (Shashi) sennosides 8.6 mg tablet (Senna 8.6 - 25.8 mg PO QDAY PRN 06/08/24 06/12/24 Lax) Constipation midodrine 10 mg tablet 10 mg PO TIDWM 06/12/24 06/12/24 PHYSICAL EXAM AT DISCHARGE General Appearance: positive No acute distress and Alert Eyes Bilateral: positive Normal inspection and PERRL ENT: positive ENT inspection nml Neck: positive Nml inspection Respiratory: positive Chest non-tender, No respiratory distress and Breath sounds nml (Diminished) Cardiovascular: positive Irregularly irregular Peripheral Pulses: positive 2+ Abdomen: positive Non-tender and Other (Protuberant) Skin: positive Color nml Extremities: positive Non-tender Neurologic/Psychiatric: positive Oriented x3 LABS 06/12/24 04:25 06/12/24 04:25 SEPSIS Current Stage of Sepsis: Ruled out FOLLOW UP Follow Up: With PCP TIME SPENT Time Spent in Discharge (Minutes): 35 Discharge Plan Discharge Patient Disposition: 01 Home, Self Care Condition: Poor Medically Cleared Date:: 06/12/24 Prescriptions: Continued potassium chloride 10 mEq capsule, extended release 20 meq PO QDAY Qty: 180 3RF Rx Instructions: Take with furosemide daily omeprazole 20 MG capsule,delayed release(DR/EC) 20 mg PO BID atorvastatin 20 MG tablet 20 mg PO QPM Patient Comments: TAKE 1 TABLET BY MOUTH ONCE DAILY IN THE EVENING methocarbamol 750 mg tablet 375 mg PO TID PRN (Reason: muscle spasm) Rx Instructions: Max 3 doses daily. Space out by 6 hours Eliquis 5 MG tablet 5 mg PO BID letrozole 2.5 mg tablet 2.5 mg PO QDAY sennosides [Senna Lax] 8.6 mg tablet 8.6 - 25.8 mg PO QDAY PRN (Reason: Constipation) furosemide 40 mg tablet 40 mg PO BID Rx Instructions: Take 1 tablet by mouth twice a day. Take 2nd dose at noon trazodone 50 MG tablet 100 mg PO QPM midodrine 10 mg tablet 10 mg PO TIDWM cholecalciferol (vitamin D3) 125 mcg (5,000 unit) capsule 125 mcg PO QDAY nystatin 100,000 unit/gram cream 1 applic topical BID PRN (Reason: rash) Rx Instructions: Apply to affected area glucosamine-chondroitin 500-400 mg capsule 1 cap PO BID Rx Instructions: give with meal/snack polyethylene glycol 3350 [Miralax] 17 gram/dose powder 17 g PO BID PRN (Reason: constipation) acetaminophen 650 mg tablet extended release 650 mg PO QID PRN (Reason: pain) Rx Instructions: Max 3000 mg daily ipratropium-albuterol 0.5 mg-3 mg(2.5 mg base)/3 mL solution for nebulization 3 ml inhalation Q4H PRN (Reason: shortness of breath) Rx Instructions: Inhale 1 vial using nebulizer every four hours as needed while awake ondansetron HCl 4 mg tablet 4 mg PO .Q6-8H PRN (Reason: nausea and vomiting) Wegovy 0.25 mg/0.5 mL pen injector 0.25 mg subcut QWEEK Rx Instructions: Inject 0.25 mg subcutaneously once a week for four weeks. Afterwards, needs appt with PCP. (DME) Permanent Disabled Placard Misc See Rx Instructions .Route Rx Instructions: As directed albuterol sulfate 2.5 mg /3 mL (0.083 %) solution for nebulization 2.5 mg inhalation Q6H PRN (Reason: shortness of breath or wheezing) alpha lipoic acid 600 mg capsule 600 mg PO QDAY mecobalamin (vitamin B12) [B12 Active] 1,000 mcg tablet,chewable 1,000 mcg PO QDAY multivitamin [Daily Multi-Vitamin] Tablet 1 tab PO QDAY pregabalin 75 mg capsule 75 mg PO TID Discontinued losartan 25 mg tablet 25 mg PO QDAY Diet: Regular Health Concerns: You are a 83-year-old female with history significant for heart failure with a preserved EF as well as obesity hypoventilation syndrome. You were brought in with increasing oxygen needs. In the ER, workup included an x-ray which showed no significant change from prior. You had increasing oxygen needs while asleep, and you were presumed to be in a hypoxic respiratory failure. This is not the case, as you have a documented history of obesity hypoventilation syndrome. Anytime you are asleep, you are not breathing adequately and need to be on your BiPAP mask. I have reminded you and your caregiver that even when napping you need to be on your BiPAP mask, as this leads to an increase in CO2 levels which will cause you to be lethargic which was the case this last time. I am also going to instruct the ED providers to place you on a mask next time you are in the ER, as this problem is not treatable with medicine, it only needs increased tidal volumes that comes with your BiPAP mask Assessment: Wear mask when asleep, including any naps Continue Wegovy, your weight is what is causing your breathing trouble Print Language: Korean Patient Instructions: BiPap Using Stand Alone Forms: PCP List Follow-up Care: Miryam Ptots PA-C [Primary Care Provider] -
[2024-06-12] MEDS: ACETAMINOPHEN 325 MG TABLET PO PRN (11:23)
[2024-06-12 14:08] VITALS: O2SAT 96
== END 2024-06-12 14:16 | disposition home or self-care (01) ==
LOC: ICU 16:30 → MS3 16:30 → ED 16:30 → ICU 19:54
PROVIDERS: ADMIT Nurse Practitioner Acute Care; ATTEND Nurse Practitioner Acute Care
DX: Z68.41 Body mass index [BMI] 40.0-44.9, adult; J96.21 Acute and chronic respiratory failure with hypoxia; Z20.822 Contact with and (suspected) exposure to COVID-19; I48.0 Paroxysmal atrial fibrillation; Z20.818 Contact with and (suspected) exposure to other bacterial communicable diseases; Z20.828 Contact with and (suspected) exposure to other viral communicable diseases; Z79.01 Long term (current) use of anticoagulants; I95.9 Hypotension, unspecified; I50.32 Chronic diastolic (congestive) heart failure; Z79.899 Other long term (current) drug therapy; R94.31 Abnormal electrocardiogram [ECG] [EKG]; E66.2 Morbid (severe) obesity with alveolar hypoventilation; J96.22 Acute and chronic respiratory failure with hypercapnia